=== PATIENT | female | born 1990 | race American Indian/Alaskan Native ===

== ENCOUNTER 2020-07-16 19:22 | Inpatient (IN) | payer OTHER ==
--- NOTE | 2020-07-16 20:38 | Event Note ---
ED Screening Note ED Screening Note: Lightheadedness that began 2 days ago She has upper abdominal pain No vomiting or diarrhea Normal bowel movement last night Tachycardia, otherwise vitals are stable This initial assessment/diagnostic orders/clinical plan/treatment(s) is/are subject to change based on patients health status, clinical progression and re- assessment by fellow clinical providers in the ED. Further treatment and workup at subsequent clinical providers discretion. Patient/guardian urged not to elope from the ED as their condition may be serious if not clinically assessed and managed. Initial orders include: Labs, urine, EKG
[2020-07-16 21:18] LABS: Hematocrit 41.2 % (30.3-42.9); Hemoglobin 13.2 gm/dl (10.1-14.3); Mean Corpuscular HGB Conc 32 % (30-34); Mean Corpuscular Volume 107 fl (79-97); Platelet Count 258 K/mm3 (140-440); Red Blood Count 3.84 M/mm3 (3.65-5.03)
[2020-07-16 21:29] LABS: Albumin 4.1 g/dL (3.9-5); Calcium 9.2 mg/dL (8.4-10.2)
[2020-07-16] MEDS ORDERED: DEXTROSE 50% IN WATER (25GM) 50 ML SYRINGE IV ONE ×2 (21:58→22:00)
[2020-07-16] MEDS ORDERED: SODIUM CHLORIDE 0.9% 1000 ML IV SOLN IV ONE (21:58)
[2020-07-16] MEDS ORDERED: PIPERACILLIN/TAZOBACTAM 3.375 3.375 GM/50 ML BAG IV ONE (22:00)
[2020-07-16 22:41] LABS: Total Cells Counted 100
[2020-07-16 22:42] LABS: Band Neutrophils # (Manual) 1.7 K/mm3
[2020-07-16 22:44] LABS: Anisocytosis 1+
[2020-07-16 22:45] LABS: Large Platelets Rare
[2020-07-16 22:46] LABS: Platelet Estimate Consistent w Auto
--- NOTE | 2020-07-16 23:05 | Cat Scan Report ---
CT ABDOMEN AND PELVIS WITHOUT CONTRAST HISTORY: abd pain, leukocytosis, elevated LFTs, sepsis. COMPARISON: None. TECHNIQUE: CT images of the abdomen and pelvis were obtained without administration of intravenous co ntrast. All CT scans at this location are performed using CT dose reduction for ALARA by means of au tomated exposure control. FINDINGS: Lungs/bones: Lung bases are clear. No acute osseous abnormality identified. Abdomen/pelvis: The gallbladder surgically absent. There is moderate hepatic steatosis and hepatomeg jerrod. The spleen, pancreas, adrenals, and kidneys appear unremarkable. There is a moderate size hiatal hernia. The stomach is fluid-filled and distended. Distended fluid-filled bowel extends to the third segment of the duodenum. No discrete mass identified on this limited noncontrast exam. The remainder the proximal GI tract appears unremarkable. Urinary bladder and reproductive organs are unremarkable with a small simple right ovarian cyst. No p elvic free fluid or acute colonic abnormality identified. There is mild circumferential wall thickeni ng in the majority of the colon which may be seen with colitis. The terminal ileum and appendix appea r normal. IMPRESSION: 1. Mild pancolitis with circumferential bowel wall thickening throughout the majority of the colon. 2. Distended fluid-filled appearance of the stomach and proximal duodenal C-loop without an obvious o bstructive mass on this limited noncontrast exam. Moderate-sized fluid-filled hiatal hernia also note d. 3. Hepatomegaly with hepatic steatosis. Signer Name: Saul Hughes MD Signed: 07/16/2020 11:01 PM Workstation Name: [id number]
[2020-07-17] MEDS ORDERED: metroNIDAZOLE/NS 500 MG/100 ML 500 MG/100 ML BAG IV ONE (00:20)
[2020-07-17] MEDS ORDERED: SODIUM CHLORIDE 0.9% 1000 ML 1,000 ML ONE (00:29)
[2020-07-17] MEDS ORDERED: SODIUM CHLORIDE 0.9% 1000 ML 1,000 ML IV ONE ×3 (00:31→05:11)
--- NOTE | 2020-07-17 00:41 | Emergency Department Report ---
ED Abdominal Pain HPI - General Chief Complaint: Abdominal Pain Stated Complaint: CHILLS, FATIGUE, AND BODY ACHES PUI?: No Time Seen by Provider: 07/16/20 20:35 Source: patient Mode of arrival: Wheelchair Limitations: No Limitations - History of Present Illness Initial Comments: CC: "I keep fainting." HPI: This is a 29 yo female with hx of tobacco dependence who presents with fainting episode, weakness and abdominal pain since Friday night 2 days ago. She has been too weak to work. She has epigastric central severe abdominal pain. Her stomach "stings" when with palpation. She has pain in her thighs. Patient denies diarrhea, vomiting or bloody stools. She does have nausea. NO hx of abdominal problems except for gallstones treated with cholecystectomy. Patient smokes cigarettes. She drinks alcohol every other day. MD Complaint: abdominal pain -: Gradual, days(s) (2) Location: diffuse, epigastric Radiation: none Severity: severe Severity scale (0 -10): 7 Quality: aching Consistency: constant Improves With: nothing Worsens With: movement, other (palpation) Context: other (no known sick contacts) Associated Symptoms: nausea, syncope - Related Data Allergies Allergy/AdvReac Type Severity Reaction Status Date / Time No Known Allergies Allergy Verified 07/16/20 22:03 ED Review of Systems ROS: Stated complaint: CHILLS, FATIGUE, AND BODY ACHES Other details as noted in HPI Comment: All other systems reviewed and negative Constitutional: chills, malaise. denies: fever Respiratory: denies: cough, shortness of breath Gastrointestinal: abdominal pain, nausea. denies: vomiting, diarrhea, constipation, hematemesis, melena, hematochezia ED Past Medical Hx - Past Medical History Previous Medical History?: No - Surgical History Past Surgical History?: Yes Additional Surgical History: Gallstones removed - Social History Smoking Status: Current Every Day Smoker Substance Use Type: Alcohol ED Physical Exam - General Limitations: No Limitations General appearance: alert, other (patient appears ill, Kussmaul respirations) - Head Head exam: Present: atraumatic, normocephalic - Eye Eye exam: Present: normal appearance - ENT ENT exam: Present: mucous membranes moist - Neck Neck exam: Present: normal inspection, full ROM - Respiratory Respiratory exam: Present: respiratory distress, other (Kussmaul respirations). Absent: wheezes, rales, rhonchi - Cardiovascular Cardiovascular Exam: Present: normal rhythm, tachycardia, normal heart sounds. Absent: systolic murmur, diastolic murmur, rubs, gallop - GI/Abdominal GI/Abdominal exam: Present: soft, tenderness, guarding, other (diffuse tenderness, voluntary guarding). Absent: distended, rebound - External exam: Present: normal external exam Speculum exam: Present: cervical discharge, other (copious malodorous mucopurulent discharge from cervix into vaginal vault) Bi-manual exam: Present: cervical motion tendernes (+ Chandelier sign), uterine tenderness - Extremities Exam Extremities exam: Present: normal inspection - Neurological Exam Neurological exam: Present: alert, oriented X3 - Psychiatric Psychiatric exam: Present: normal affect, normal mood - Skin Skin exam: Present: warm, dry, intact, pallor. Absent: rash ED Course Vital Signs 07/16/20 07/17/20 20:32 00:30 Temperature 98.5 F 97.8 F Pulse Rate 137 H 120 H Respiratory 18 24 Rate Blood Pressure 90/49 Blood Pressure 87/41 [Left] O2 Sat by Pulse 95 100 Oximetry - Central Line Placement Right Femoral Consent Obtained: verbal consent Time Out Performed: Yes Patient Placed on Monitor/Pulse Ox: Yes MD Prep: mask, gown, gloves, other (cap) Central Line Prep: sterile drapes applied Local Anesthesia Used: Lidocaine 2% Amount of Anesthesia Used (mls): 5 Ultrasound Used for Placement: Yes Central Line Lumen Inserted: triple Bloods Obtained for Lab: Yes Central Line Position: good blood return, all ports aspirated, flus, sutured in place with nyl, other (biopatch) Dressing Applied: Tegaderm, other (biopatch) Patient Tolerated Procedure: well, no complications Complications: none ED Medical Decision Making - Lab Data Result diagrams: 07/16/20 20:47 07/16/20 20:47 Abnormal Lab Results 07/16/20 07/16/20 07/16/20 20:47 20:47 20:47 WBC 33.9 H RBC 3.84 Hgb 13.2 Hct 41.2 MCV 107 H MCH 34 H MCHC 32 RDW 22.0 H Plt Count 258 Add Manual Diff Complete Total Counted 100 Seg Neutrophils % Hand Braille Transcriber Seg Neuts % (Manual) 89.0 H Band Neutrophils % 5.0 Lymphocytes % (Manual) 2.0 L Monocytes % (Manual) 4.0 Nucleated RBC % 1.0 H Seg Neutrophils # Man 30.2 H Band Neutrophils # 1.7 Lymphocytes # (Manual) 0.7 L Abs React Lymphs (Man) 0.0 Monocytes # (Manual) 1.4 H Eosinophils # (Manual) 0.0 Basophils # (Manual) 0.0 Metamyelocytes # 0.0 Myelocytes # 0.0 Promyelocytes # 0.0 Blast Cells # 0.0 Hypersegmented Neuts Not Reportable Hyposegmented Neuts Not Reportable Hypogranular Neuts Not Reportable Smudge Cells Not Reportable Toxic Granulation Not Reportable Toxic Vacuolation Not Reportable Dohle Bodies Not Reportable Pelger-Huet Anomaly Not Reportable Fede Rods Not Reportable Platelet Estimate Consistent w auto Clumped Platelets Not Reportable Plt Clumps, EDTA Not Reportable Large Platelets Rare Giant Platelets Not Reportable Platelet Satelliting Not Reportable Plt Morphology Comment Not Reportable RBC Morphology Not Reportable Dimorphic RBCs Not Reportable Polychromasia Not Reportable Hypochromasia Not Reportable Poikilocytosis Not Reportable Anisocytosis 1+ Microcytosis Not Reportable Macrocytosis Not Reportable Spherocytes Not Reportable Pappenheimer Bodies Not Reportable Sickle Cells Not Reportable Target Cells Not Reportable Tear Drop Cells Not Reportable Ovalocytes Not Reportable Helmet Cells Not Reportable Donaldson-[place]aver[place] Bodies Not Reportable Patterson Rings Not Reportable Hsashank Cells Not Reportable Bite Cells Not Reportable Crenated Cell Not Reportable Elliptocytes Not Reportable Acanthocytes (Spur) Not Reportable Rouleaux Not Reportable Hemoglobin C Crystals Not Reportable Schistocytes Not Reportable Malaria parasites Not Reportable Richard Bodies Not Reportable Hem Pathologist Commnt Sent to pathology Sodium 140 Potassium 5.1 H Chloride 98.7 Carbon Dioxide 9 L* Anion Gap 37 BUN 20 H Creatinine 1.9 H Estimated GFR 31 BUN/Creatinine Ratio 11 Glucose 30 L* POC Glucose Lactic Acid Calcium 9.2 Magnesium Total Bilirubin 5.40 H AST 32604 H ALT 1829 H Alkaline Phosphatase 141 H Total Creatine Kinase Troponin T Total Protein 6.9 Albumin 4.1 Albumin/Globulin Ratio 1.5 Lipase 9 L TSH HCG, Qual Negative 07/16/20 07/16/2007/16/20 20:47 20:47 20:47 WBC RBC Hgb Hct MCV MCH MCHC RDW Plt Count Add Manual Diff Total Counted Seg Neutrophils % Seg Neuts % (Manual) Band Neutrophils % Lymphocytes % (Manual) Monocytes % (Manual) Nucleated RBC % Seg Neutrophils # Man Band Neutrophils # Lymphocytes # (Manual) Abs React Lymphs (Man) Monocytes # (Manual) Eosinophils # (Manual) Basophils # (Manual) Metamyelocytes # Myelocytes # Promyelocytes # Blast Cells # Hypersegmented Neuts Hyposegmented Neuts Hypogranular Neuts Smudge Cells Toxic Granulation Toxic Vacuolation Dohle Bodies Pelger-Huet Anomaly Fede Rods Platelet Estimate Clumped Platelets Plt Clumps, EDTA Large Platelets Giant Platelets Platelet Satelliting Plt Morphology Comment RBC Morphology Dimorphic RBCs Polychromasia Hypochromasia Poikilocytosis Anisocytosis Microcytosis Macrocytosis Spherocytes Pappenheimer Bodies Sickle Cells Target Cells Tear Drop Cells Ovalocytes Helmet Cells Donaldson-Beaver[place] Bodies Patterson Rings Shashank Cells Bite Cells Crenated Cell Elliptocytes Acanthocytes (Spur) Rouleaux Hemoglobin C Crystals Schistocytes Malaria parasites Richard Bodies Hem Pathologist Commnt Sodium Potassium Chloride Carbon Dioxide Anion Gap BUN Creatinine Estimated GFR BUN/Creatinine Ratio Glucose POC Glucose Lactic Acid Calcium Magnesium 2.10 Total Bilirubin AST ALT Alkaline Phosphatase Total Creatine Kinase 230 H Troponin T < 0.010 Total Protein Albumin Albumin/Globulin Ratio Lipase TSH 0.354 HCG, Qual 07/16/20 07/16/20 22:43 23:06 WBC RBC Hgb Hct MCV MCH MCHC RDW Plt Count Add Manual Diff Total Counted Seg Neutrophils % Seg Neuts % (Manual) Band Neutrophils % Lymphocytes % (Manual) Monocytes % (Manual) Nucleated RBC % Seg Neutrophils # Man Band Neutrophils # Lymphocytes # (Manual) Abs React Lymphs (Man) Monocytes # (Manual) Eosinophils # (Manual) Basophils # (Manual) Metamyelocytes # Myelocytes # Promyelocytes # Blast Cells # Hypersegmented Neuts Hyposegmented Neuts Hypogranular Neuts Smudge Cells Toxic Granulation Toxic Vacuolation Dohle Bodies Pelger-Huet Anomaly Fede Rods Platelet Estimate Clumped Platelets Plt Clumps, EDTA Large Platelets Giant Platelets Platelet Satelliting Plt Morphology Comment RBC Morphology Dimorphic RBCs Polychromasia Hypochromasia Poikilocytosis Anisocytosis Microcytosis Macrocytosis Spherocytes Pappenheimer Bodies Sickle Cells Target Cells Tear Drop Cells Ovalocytes Helmet Cells Donaldson-[place] Bodies Patterson Rings Shashank Cells Bite Cells Crenated Cell Elliptocytes Acanthocytes (Spur) Rouleaux Hemoglobin C Crystals Schistocytes Malaria parasites Richard Bodies Hem Pathologist Commnt Sodium Potassium Chloride Carbon Dioxide Anion Gap BUN Creatinine Estimated GFR BUN/Creatinine Ratio Glucose POC Glucose 140 H Lactic Acid 14.90 H* Calcium Magnesium Total Bilirubin AST ALT Alkaline Phosphatase Total Creatine Kinase Troponin T Total Protein Albumin Albumin/Globulin Ratio Lipase TSH HCG, Qual - Radiology Data Radiology results: report reviewed CT ABDOMEN AND PELVIS WITHOUT CONTRAST HISTORY: abd pain, leukocytosis, elevated LFTs, sepsis. COMPARISON: None. TECHNIQUE: CT images of the abdomen and pelvis were obtained without administration of intravenous contrast. All CT scans at this location are performed using CT dose reduction for ALARA by means of automated exposure control. FINDINGS: Lungs/bones: Lung bases are clear. No acute osseous abnormality identified. Abdomen/pelvis: The gallbladder surgically absent. There is moderate hepatic steatosis and hepatomegaly. The spleen, pancreas, adrenals, and kidneys appear unremarkable. There is a moderate size hiatal hernia. The stomach is fluid-filled and distended. Distended fluid- filled bowel extends to the third segment of the duodenum. No discrete mass identified on this limited noncontrast exam. The remainder the proximal GI tract appears unremarkable. Urinary bladder and reproductive organs are unremarkable with a small simple right ovarian cyst. No pelvic free fluid or acute colonic abnormality identified. There is mild circumferential wall thickening in the majority of the colon which may be seen with colitis. The terminal ileum and appendix appear normal. IMPRESSION: 1. Mild pancolitis with circumferential bowel wall thickening throughout the majority of the colon. 2. Distended fluid-filled appearance of the stomach and proximal duodenal C-loop without an obvious obstructive mass on this limited noncontrast exam. Moderate-sized fluid-filled hiatal hernia also noted. 3. Hepatomegaly with hepatic steatosis CT ABDOMEN AND PELVIS WITHOUT CONTRAST HISTORY: abd pain, leukocytosis, elevated LFTs, sepsis. COMPARISON: None. TECHNIQUE: CT images of the abdomen and pelvis were obtained without administration of intravenous contrast. All CT scans at this location are performed using CT dose reduction for ALARA by means of automated exposure control. FINDINGS: Lungs/bones: Lung bases are clear. No acute osseous abnormality identified. Abdomen/pelvis: The gallbladder surgically absent. There is moderate hepatic steatosis and hepatomegaly. The spleen, pancreas, adrenals, and kidneys appear unremarkable. There is a moderate size hiatal hernia. The stomach is fluid-filled and distended. Distended fluid- filled bowel extends to the third segment of the duodenum. No discrete mass identified on this limited noncontrast exam. The remainder the proximal GI tract appears unremarkable. Urinary bladder and reproductive organs are unremarkable with a small simple right ovarian cyst. No pelvic free fluid or acute colonic abnormality identified. There is mild circumferential wall thickening in the majority of the colon which may be seen with colitis. The terminal ileum and appendix appear normal. IMPRESSION: 1. Mild pancolitis with circumferential bowel wall thickening throughout the majority of the colon. 2. Distended fluid-filled appearance of the stomach and proximal duodenal C-loop without an obvious obstructive mass on this limited noncontrast exam. Moderate-sized fluid-filled hiatal hernia also noted. 3. Hepatomegaly with hepatic steatosis AP portable chest: No acute findings - Medical Decision Making Septic shock profound persistent hypotension in spite IV fluid resuscitation IV antibiotics. Patient required pressor therapy administered through central line. Suspected source pelvic inflammatory disease versus intra-abdominal sepsis due to inflammatory bowel disease, pancolitis could also be explained by C. difficile colitis. Abnormal LFTS: shock liver vs Garth Albino Mendoza Syndrome Patient is admitted to the CCU in fair condition. Critical Care Time: Yes Critical care time in (mins) excluding proc time.: 40 Critical care attestation.: If time is entered above; I have spent that time in minutes in the direct care of this critically ill patient, excluding procedure time. 40 minutes of critical care time excluding procedures were used in the care of the patient. I came immediately to the bedside upon patient's arrival to treatment room. I asked charge nurse to place patient in left eye discovered patient had severe lactic acidosis. I was concerned for septic shock. I gave immediate orders for IV fluid resuscitation and IV antibiotics. Sepsis protocol initiated by provider in triage.. I discussed treatment plan with the nursing team members. I reviewed electronic record. Patient required multiple interventions and reassessments. ED Disposition Clinical Impression: Severe sepsis with septic shock, Sepsis with acute organ dysfunction, P ancolitis, Intra-abdominal infection, Pelvic inflammatory disease (PID) Disposition: OP ADMIT IP TO THIS HOSP Is pt being admited?: Yes Does the pt Need Aspirin: No Condition: Fair Instructions: Abdominal Pain (ED)
--- NOTE | 2020-07-17 01:21 | XRay Report ---
CHEST 1 VIEW INDICATION: sepsis. Body aches and chills since Friday COMPARISON: None FINDINGS: SUPPORT DEVICES: None. HEART: Within normal limits. LUNGS/PLEURA: No acute air space or interstitial disease. ADDITIONAL FINDINGS: None. IMPRESSION: 1. No acute findings. Signer Name: Saul Hughes MD Signed: 07/17/2020 1:17 AM Workstation Name: [id number]
[2020-07-17] MEDS ORDERED: LIDOCAINE (2%) 20 MG/1 ML VIAL 20 ML MDV INFILTRATI ONE (01:57)
[2020-07-17] MEDS ORDERED: NORepinephrine/NS 4 MG-250 ML 4 MG/250 ML BAG IV ONE (02:29)
[2020-07-17] MEDS ORDERED: DOXYCYCLINE HYCLATE 100 MG in SODIUM CHLORIDE 0.9% 250ML 250 ML IV ONE (02:36)
[2020-07-17] MEDS ORDERED: MORPHINE 4 MG/1 ML INJ IV ONE ×2 (02:37→03:28)
[2020-07-17] MEDS ORDERED: ONDANSETRON 4 MG/2 ML INJ IV ONE (02:37)
[2020-07-17] MEDS: NORepinephrine/NS 4 MG-250 ML 4 MG/250 ML BAG IV SCH ×6 (03:01→22:51)
[2020-07-17] MEDS ORDERED: ACETAMINOPHEN 325 MG TAB PO PRN (03:56)
[2020-07-17] MEDS ORDERED: MAGNESIUM HYDROXIDE (MOM) ORAL LIQD UDC PO PRN (03:56)
[2020-07-17] MEDS ORDERED: SODIUM CHLORIDE 0.9% 1000 ML 1,000 ML IV SCH (04:00)
[2020-07-17 04:14] LABS: Bacteria,Urine 1+ /HPF (Negative); Bilirubin,Urine NEG (Negative); Blood,Urine LG (Negative); Color,Urine Red (Yellow); Mucus,Urine FEW /HPF; Urobilinogen,Urine < 2.0 mg/dL (<2.0)
[2020-07-17 04:16] LABS: Protein,Urine >500 mg/dL (Negative)
--- NOTE | 2020-07-17 04:36 | History and Physical Report ---
History of Present Illness Date of examination: 07/17/20 Date of admission: 07/17/20 02:38 Chief complaint: Abdominal pain History of present illness: The 9-year-old -[place] female who presents to the emergency room today complaining of abdominal pain, fainting episode and generalized weakness which has been ongoing for the past 2 days. Patient indicates that abdominal pain is generalized. No no relieving or exacerbating factor. She has had episodes of nausea and vomiting but no diarrhea, no hematuria or dysuria. Patient also indicates that she has had some vaginal discharge today, denies any vaginal bleeding. She denies any sick contacts and no recent travel. She denies any chest pain or shortness of breath, she has had some mild fever and c hills at home. Upon arrival in the emergency room today she was hypotensive. Work-up in the emergency room today significant leukocytosis of 33, lactic acidosis, abnormally elevated liver enzymes. CT scan of the abdomen reveals:. 1.Mild pancolitis with circumferential bowel wall thickening throughout the majority of the colon. 2. Distended fluid-filled appearance of the stomach and proximal duodenal C-loop without an obvious obstructive mass on this limited noncontrast exam. Moderate-sized fluid-filled hiatal hernia also noted. 3. Hepatomegaly with hepatic steatosis. Chest x-ray was unremarkable. Urinalysis also shows a UTI However pelvic exam but done by the ER physician was concerning for possible pelvic inflammatory disease. Patient has been started on IV fluid, empiric IV antibiotics, pressors in view of her sepsis with septic shock. She will be managed in the intensive care unit. Past History Past Surgical History: cholecystectomy Social history: smoking (Current daily smoker), alcohol abuse Family history: cancer (Brain cancer in grandfather, lung cancer in aunt) Medications and Allergies Allergies Allergy/AdvReac Type Severity Reaction Status Date / Time No Known Allergies Allergy Verified 07/16/20 22:03 Home Medications Medication Instructions Recorded Confirmed Last Taken Type No Known Home Medications [No 07/17/20 07/17/20 Unknown History Reported Home Medications] Active Meds: Active Medications Acetaminophen (Acetaminophen 325 Mg Tab) 650 mg PO Q4H PRN PRN Reason: Pain MILD(1-3)/Fever >100.5/SANCHEZ Norepinephrine (Levophed Drip 4 Mg/Ns 250 Ml) 4 mg in 250 mls @ 7.5 mls/hr IV TITR ESTELA; Protocol Last Titration: 07/17/20 04:31 Dose: 12 mcg/min, 45 mls/hr Documented by: Sodium Chloride (Nacl 0.9% 1000 Ml) 1,000 mls @ 125 mls/hr IV DIRECT ESTELA Magnesium Hydroxide (Magnesium Hydroxide (Mom) Oral Liqd Udc) 30 ml PO Q4H PRN PRN Reason: Constipation Morphine Sulfate (Morphine 2 Mg/1 Ml Inj) 2 mg IV Q4H PRN PRN Reason: Pain, Moderate (4-6) Ondansetron HCl (Ondansetron 4 Mg/2 Ml Inj) 4 mg IV Q8H PRN PRN Reason: Nausea And Vomiting Sodium Chloride (Sodium Chloride 0.9% 10 Ml Flush Syringe) 10 ml IV BID ESTELA Sodium Chloride (Sodium Chloride 0.9% 10 Ml Flush Syringe) 10 ml IV PRN PRN PRN Reason: LINE FLUSH Review of Systems Constitutional: no fever, no chills Ears, nose, mouth and throat: no nasal congestion, no sore throat Cardiovascular: no chest pain, no palpitations Respiratory: no cough, no shortness of breath Gastrointestinal: abdominal pain, nausea, vomiting, no diarrhea, no coffee ground emesis, no BRBPR, no melena Genitourinary Female: pelvic pain, no flank pain, no menorrhagia, no dysuria, no urinary frequency, no urgency, no hematuria Musculoskeletal: low back pain, no neck pain Integumentary: no rash, no pruritis Neurological: no headaches, no confusion Psychiatric: no anxiety, no depression Exam - Constitutional Vitals: Temp Pulse Resp BP Pulse Ox 97.8 F 126 H 19 70/17 100 07/17/20 00:30 07/17/20 04:01 07/17/20 04:01 07/17/20 04:01 07/17/20 04:01 General appearance: Present: mild distress (Secondary to pain), well-nourished, other (Dry oral mucosa) - EENT Eyes: Present: PERRL, EOM intact. Absent: scleral icterus ENT: hearing intact, clear oral mucosa, dentition normal - Neck Neck: Present: supple, normal ROM - Respiratory Respiratory effort: normal Respiratory: bilateral: CTA - Cardiovascular Rhythm: regular Heart Sounds: Present: S1 & S2. Absent: gallop, systolic murmur, diastolic murmur, rub - Extremities Extremities: no ischemia, pulses intact, pulses symmetrical, No edema, normal temperature, normal color, Full ROM Peripheral Pulses: within normal limits - Abdominal General gastrointestinal: Present: soft, tender (Diffuse tenderness in abdomen, more pronounced in the lower quadrants bilaterally, minimal guarding, no rebound tenderness.), non-distended, normal bowel sounds. Absent: mass - Integumentary Integumentary: Present: clear, warm, dry. Absent: rash - Musculoskeletal Musculoskeletal: strength equal bilaterally - Psychiatric Psychiatric: appropriate mood/affect, intact judgment & insight, memory intact, cooperative - Neurologic Neurologic: CNII-XII intact, no focal deficits, moves all extremities HEART Score - HEART Score Troponin: Troponin T < 0.010 ng/mL (0.00-0.029) 07/16/20 20:47 Results - Labs CBC & Chem 7: 07/16/20 20:47 07/16/20 20:47 Labs: Abnormal lab results 07/16/20 07/16/20 07/16/20 Range/Units 03:54 20:47 20:47 WBC 33.9 H (4.5-11.0) K/mm3 MCV 107 H (79-97) fl MCH 34 H (28-32) pg RDW 22.0 H (13.2-15.2) % Seg Neuts % (Manual) 89.0 H (40.0-70.0) % Lymphocytes % (Manual) 2.0 L (13.4-35.0) % Nucleated RBC % 1.0 H (0.0-0.9) % Seg Neutrophils # Man 30.2 H (1.8-7.7) K/mm3 Lymphocytes # (Manual) 0.7 L (1.2-5.4) K/mm3 Monocytes # (Manual) 1.4 H (0.0-0.8) K/mm3 VBG pH (7.320-7.420) Potassium 5.1 H (3.6-5.0) mmol/L Carbon Dioxide 9 L* (22-30) mmol/L BUN 20 H (7-17) mg/dL Creatinine 1.9 H (0.6-1.2) mg/dL Glucose 30 L* (65-100) mg/dL POC Glucose (70-105) mg/dL Lactic Acid (0.7-2.0) mmol/L Total Bilirubin 5.40 H (0.1-1.2) mg/dL AST 25030 H (5-40) units/L ALT 1829 H (7-56) units/L Alkaline Phosphatase 141 H (35-129) units/L Total Creatine Kinase (30-135) units/L Lipase 9 L (13-60) units/L Urine WBC (Auto) 57.0 H (0.0-6.0) /HPF U Epithel Cells (Auto) 23.0 H (0-13.0) /HPF 07/16/20 07/16/20 07/16/20 Range/Units 20:47 22:43 23:06 WBC (4.5-11.0) K/mm3 MCV (79-97) fl MCH (28-32) pg RDW (13.2-15.2) % Seg Neuts % (Manual) (40.0-70.0) % Lymphocytes % (Manual) (13.4-35.0) % Nucleated RBC % (0.0-0.9) % Seg Neutrophils # Man (1.8-7.7) K/mm3 Lymphocytes # (Manual) (1.2-5.4) K/mm3 Monocytes # (Manual) (0.0-0.8) K/mm3 VBG pH (7.320-7.420) Potassium (3.6-5.0) mmol/L Carbon Dioxide (22-30) mmol/L BUN (7-17) mg/dL Creatinine (0.6-1.2) mg/dL Glucose (65-100) mg/dL POC Glucose 140 H (70-105) mg/dL Lactic Acid 14.90 H* (0.7-2.0) mmol/L Total Bilirubin (0.1-1.2) mg/dL AST (5-40) units/L ALT (7-56) units/L Alkaline Phosphatase (35-129) units/L Total Creatine Kinase 230 H (30-135) units/L Lipase (13-60) units/L Urine WBC (Auto) (0.0-6.0) /HPF U Epithel Cells (Auto) (0-13.0) /HPF 07/17/20 07/17/20 Range/Units 01:46 01:46 WBC (4.5-11.0) K/mm3 MCV (79-97) fl MCH (28-32) pg RDW (13.2-15.2) % Seg Neuts % (Manual) (40.0-70.0) % Lymphocytes % (Manual) (13.4-35.0) % Nucleated RBC % (0.0-0.9) % Seg Neutrophils # Man (1.8-7.7) K/mm3 Lymphocytes # (Manual) (1.2-5.4) K/mm3 Monocytes # (Manual) (0.0-0.8) K/mm3 VBG pH 7.085 L* (7.320-7.420) Potassium (3.6-5.0) mmol/L Carbon Dioxide (22-30) mmol/L BUN (7-17) mg/dL Creatinine (0.6-1.2) mg/dL Glucose (65-100) mg/dL POC Glucose (70-105) mg/dL Lactic Acid 13.20 H* (0.7-2.0) mmol/L Total Bilirubin (0.1-1.2) mg/dL AST (5-40) units/L ALT (7-56) units/L Alkaline Phosphatase (35-129) units/L Total Creatine Kinase (30-135) units/L Lipase (13-60) units/L Urine WBC (Auto) (0.0-6.0) /HPF U Epithel Cells (Auto) (0-13.0) /HPF Assessment and Plan - Patient Problems (1) Severe sepsis with septic shock Current Visit: Yes Status: Acute Plan to address problem: Patient admitted and placed on IV fluid and empiric IV antibiotics. She is also on Levophed drip. We will place consult to infectious disease for evaluation and further guidance on antibiotic regimen. Consult will also be placed to the caddie supervisor. (2) Pancolitis Current Visit: Yes Status: Acute Plan to address problem: As shown on the CT scan of the abdomen and pelvis. Will consult gastroenterology for further evaluation. (3) Pelvic inflammatory disease (PID) Current Visit: Yes Status: Acute Plan to address problem: Pelvic exam normal by the ER physician was suggestive of PID. We will place consult to [facility] for further evaluation and recommendation (4) UTI (urinary tract infection) Current Visit: Yes Status: Acute Plan to address problem: Continue on empiric IV antibiotics. We will await urine culture result. (5) Sepsis with acute liver failure and septic shock Current Visit: Yes Status: Acute Plan to address problem: Possibly secondary to the septic shock. Will monitor liver enzymes. We will place consult to gastroenterology for further evaluation and recommendation. (6) Metabolic acidosis Current Visit: Yes Status: Acute Plan to address problem: We will continue on IV fluid and also placed on bicarb drip. Will monitor chemistry closely. (7) DVT prophylaxis Current Visit: Yes Status: Acute Plan to address problem: Patient placed on sequential compression device. We will hold off on anticoagulation in view of possible surgical intervention (8) Full code status Current Visit: Yes Status: Acute Plan to address problem: Patient is a full code.
[2020-07-17] MEDS ORDERED: SODIUM BICARB 8.4% 50 MEQ/50 ML SYRINGE IV ONE (04:55)
[2020-07-17] MEDS: SODIUM BICARBONATE 50 MEQ in SODIUM CHLORIDE 0.9% 1000 ML 1,000 ML IV SCH (05:18)
[2020-07-17] MEDS ORDERED: AMPICILLIN/SULBACTA 3GM/100ML 3 GM/100 ML BAG IV SCH (06:00)
[2020-07-17] MEDS ORDERED: DEXTROSE 50% IN WATER (25GM) 50 ML SYRINGE IV ONE (06:07)
--- NOTE | 2020-07-17 09:55 | Gastroenterology Consultation ---
History of Present Illness - Reason for Consult Consult date: 07/17/20 Abnormal LFT Requesting physician: LUISITO DE LOS SANTOS - History of Present Illness The patient is a 29 yo female admitted with abdominal pain and hypotension. She says she has felt this way for at least the last 3-5 days. There have been 2 episodes of non-bloody emesis, but no diarrhea. Her main c/o are generalized abdominal pain and weakness. The pain is worse with palpation, and she was felt to have possible PID (on abx currently) by the ER staff. Of note, her LFTs were markedly elevated, but no tylenol level has been sent yet. She does admit to taking at least 3 Tylenol every 2-4 hours for the last several days for the pain, but denies drugs. She does admit to EtOH at least every 2 days, with a "double shot" of liquor. She denies any suicide attempt. She has had her GB out, and a hx of blood transfusion several years ago ( of her son). She is not on any chronic medications, and there is no family hx of liver disease/cirrhosis. Of note, despite her acute liver injury, she is lucid without confusion and no asterixis on exam. Past History Past Medical History: No medical history Past Surgical History: cholecystectomy Social history: smoking (Current daily smoker), alcohol abuse. denies: prescription drug abuse, IV drug use Family history: cancer (Brain cancer in grandfather, lung cancer in aunt) Medications and Allergies Allergies Allergy/AdvReac Type Severity Reaction Status Date / Time No Known Allergies Allergy Verified 07/16/20 22:03 Home Medications Medication Instructions Recorded Confirmed Last Taken Type No Known Home Medications [No 07/17/20 07/17/20 Unknown History Reported Home Medications] Active Meds: Active Medications Doxycycline Hyclate (Doxycycline 100 Mg Cap) 100 mg PO BID ESTELA; Protocol Norepinephrine (Levophed Drip 4 Mg/Ns 250 Ml) 4 mg in 250 mls @ 7.5 mls/hr IV TITR ESTELA; Protocol Last Titration: 07/17/20 06:45 Dose: 28 mcg/min, 105 mls/hr Documented by: Sodium Chloride (Nacl 0.9% 1000 Ml) 1,000 mls @ 125 mls/hr IV DIRECT ESTELA Last Admin: 07/17/20 05:08 Dose: 125 mls/hr Documented by: Sodium Bicarbonate 50 meq/ (Sodium Chloride) 1,050 mls @ 100 mls/hr IV DIRECT ESTELA Last Admin: 07/17/20 05:18 Dose: 100 mls/hr Documented by: Ampicillin Sodium/Sulbactam Sodium (Unasyn/Ns 3 Gm/100 Ml) 3 gm in 100 mls @ 200 mls/hr IV Q6H ESTELA; Protocol Last Admin: 07/17/20 05:59 Dose: 200 mls/hr Documented by: Magnesium Hydroxide (Magnesium Hydroxide (Mom) Oral Liqd Udc) 30 ml PO Q4H PRN PRN Reason: Constipation Morphine Sulfate (Morphine 2 Mg/1 Ml Inj) 2 mg IV Q4H PRN PRN Reason: Pain, Moderate (4-6) Ondansetron HCl (Ondansetron 4 Mg/2 Ml Inj) 4 mg IV Q8H PRN PRN Reason: Nausea And Vomiting Sodium Chloride (Sodium Chloride 0.9% 10 Ml Flush Syringe) 10 ml IV BID ESTELA Sodium Chloride (Sodium Chloride 0.9% 10 Ml Flush Syringe) 10 ml IV PRN PRN PRN Reason: LINE FLUSH I HAVE REVIEWED AND RECONCILED MEDICATIONS Review of Systems - Review of Systems All systems: negative (as noted in the HPI) Exam - Constitutional Vital Signs: Temp Pulse Resp BP Pulse Ox 97.8 F 125 H 25 H 79/29 98 07/17/20 00:30 07/17/20 05:15 07/17/20 05:15 07/17/20 05:15 07/17/20 05:15 General appearance: mild distress - EENT Eyes: PERRL, EOM intact ENT: hearing intact, clear oral mucosa, no thrush - Neck Neck: supple, normal ROM - Respiratory Respiratory effort: normal Respiratory: bilateral: CTA - Cardiovascular Heart Rate: 135 Rhythm: regular Heart Sounds: Present: S1 & S2 Extremities: no ischemia, No edema - Gastrointestinal General gastrointestinal: Present: soft, tender (Diffuse but mild tenderness without guard), non-distended - Integumentary Integumentary: Present: clear, warm, dry - Neurologic Neurological: alert and oriented x3, other (No evidence of asterixis or somnolence) - Labs CBC & Chem 7: 07/16/20 20:47 07/16/20 20:47 Lab Results: Laboratory Results - last 24 hr 07/16/20 07/16/20 07/16/20 03:54 20:47 20:47 WBC 33.9 H RBC 3.84 Hgb 13.2 Hct 41.2 MCV 107 H MCH 34 H MCHC 32 RDW 22.0 H Plt Count 258 Add Manual Diff Complete Total Counted 100 Seg Neutrophils % [employer] Seg Neuts % (Manual) 89.0 H Band Neutrophils % 5.0 Lymphocytes % (Manual) 2.0 L Monocytes % (Manual) 4.0 Nucleated RBC % 1.0 H Seg Neutrophils # Man 30.2 H Band Neutrophils # 1.7 Lymphocytes # (Manual) 0.7 L Abs React Lymphs (Man) 0.0 Monocytes # (Manual) 1.4 H Eosinophils # (Manual) 0.0 Basophils # (Manual) 0.0 Metamyelocytes # 0.0 Myelocytes # 0.0 Promyelocytes # 0.0 Blast Cells # 0.0 Hypersegmented Neuts Not Reportable Hyposegmented Neuts Not Reportable Hypogranular Neuts Not Reportable Smudge Cells Not Reportable Toxic Granulation Not Reportable Toxic Vacuolation Not Reportable Dohle Bodies Not Reportable Pelger-Huet Anomaly Not Reportable Fede Rods Not Reportable Platelet Estimate Consistent w auto Clumped Platelets Not Reportable Plt Clumps, EDTA Not Reportable Large Platelets Rare Giant Platelets Not Reportable Platelet Satelliting Not Reportable Plt Morphology Comment Not Reportable RBC Morphology Not Reportable Dimorphic RBCs Not Reportable Polychromasia Not Reportable Hypochromasia Not Reportable Poikilocytosis Not Reportable Anisocytosis 1+ Microcytosis Not Reportable Macrocytosis Not Reportable Spherocytes Not Reportable Pappenheimer Bodies Not Reportable Sickle Cells Not Reportable Target Cells Not Reportable Tear Drop Cells Not Reportable Ovalocytes Not Reportable Helmet Cells Not Reportable [place] Bodies Not Reportable [place] Rings Not Reportable Shashank Cells Not Reportable Bite Cells Not Reportable Crenated Cell Not Reportable Elliptocytes Not Reportable Acanthocytes (Spur) Not Reportable Rouleaux Not Reportable Hemoglobin C Crystals Not Reportable Schistocytes Not Reportable Malaria parasites Not Reportable Richard Bodies Not Reportable Hem Pathologist Commnt Sent to pathology [facility] pH Sodium 140 Potassium 5.1 H Chloride 98.7 Carbon Dioxide 9 L* Anion Gap 37 BUN 20 H Creatinine 1.9 H Estimated GFR 31 BUN/Creatinine Ratio 11 Glucose 30 L* POC Glucose Lactic Acid Calcium 9.2 Magnesium Total Bilirubin 5.40 H AST 13951 H ALT 1829 H Alkaline Phosphatase 141 H Total Creatine Kinase Troponin T Total Protein 6.9 Albumin 4.1 Albumin/Globulin Ratio 1.5 Lipase 9 L TSH HCG, Qual Urine Color Red Urine Turbidity Turbid Urine pH 5.0 Ur Specific [place] 1.013 Urine Protein >500 Urine Glucose (UA) Neg Urine Ketones Tr Urine Blood Lg Urine Nitrite Neg Urine Bilirubin Neg Urine Urobilinogen < 2.0 Ur Leukocyte Esterase Sm Urine WBC (Auto) 57.0 H Urine RBC (Auto) 35.0 U Epithel Cells (Auto) 23.0 H Urine Bacteria (Auto) 1+ Urine WBC Clumps 3+ Urine Mucus Few 07/16/20 07/16/20 07/16/20 20:47 20:47 20:47 WBC RBC Hgb Hct MCV MCH MCHC RDW Plt Count Add Manual Diff Total Counted Seg Neutrophils % Seg Neuts % (Manual) Band Neutrophils % Lymphocytes % (Manual) Monocytes % (Manual) Nucleated RBC % Seg Neutrophils # Man Band Neutrophils # Lymphocytes # (Manual) Abs React Lymphs (Man) Monocytes # (Manual) Eosinophils # (Manual) Basophils # (Manual) Metamyelocytes # Myelocytes # Promyelocytes # Blast Cells # Hypersegmented Neuts Hyposegmented Neuts Hypogranular Neuts Smudge Cells Toxic Granulation Toxic Vacuolation Dohle Bodies Pelger-Huet Anomaly Fede Rods Platelet Estimate Clumped Platelets Plt Clumps, EDTA Large Platelets Giant Platelets Platelet Satelliting Plt Morphology Comment RBC Morphology Dimorphic RBCs Polychromasia Hypochromasia Poikilocytosis Anisocytosis Microcytosis Macrocytosis Spherocytes Pappenheimer Bodies Sickle Cells Target Cells Tear Drop Cells Ovalocytes Helmet Cells [place] Bodies [place] Rings [place] Cells Bite Cells Crenated Cell Elliptocytes Acanthocytes (Spur) Rouleaux Hemoglobin C Crystals Schistocytes Malaria parasites Richard Bodies Hem Pathologist Commnt VBG pH Sodium Potassium Chloride Carbon Dioxide Anion Gap BUN Creatinine Estimated GFR BUN/Creatinine Ratio Glucose POC Glucose Lactic Acid Calcium Magnesium 2.10 Total Bilirubin AST ALT Alkaline Phosphatase Total Creatine Kinase 230 H Troponin T < 0.010 Total Protein Albumin Albumin/Globulin Ratio Lipase TSH HCG, Qual Negative Urine Color Urine Turbidity Urine pH Ur Specific [place] Urine Protein Urine Glucose (UA) Urine Ketones Urine Blood Urine Nitrite Urine Bilirubin Urine Urobilinogen Ur Leukocyte Esterase Urine WBC (Auto) Urine RBC (Auto) U Epithel Cells (Auto) Urine Bacteria (Auto) Urine WBC Clumps Urine Mucus 07/16/20 07/16/20 07/16/20 20:47 22:43 23:06 WBC RBC Hgb Hct MCV MCH MCHC RDW Plt Count Add Manual Diff Total Counted Seg Neutrophils % Seg Neuts % (Manual) Band Neutrophils % Lymphocytes % (Manual) Monocytes % (Manual) Nucleated RBC % Seg Neutrophils # Man Band Neutrophils # Lymphocytes # (Manual) Abs React Lymphs (Man) Monocytes # (Manual) Eosinophils # (Manual) Basophils # (Manual) Metamyelocytes # Myelocytes # Promyelocytes # Blast Cells # Hypersegmented Neuts Hyposegmented Neuts Hypogranular Neuts Smudge Cells Toxic Granulation Toxic Vacuolation Dohle Bodies Pelger-Huet Anomaly Fede Rods Platelet Estimate Clumped Platelets Plt Clumps, EDTA Large Platelets Giant Platelets Platelet Satelliting Plt Morphology Comment RBC Morphology Dimorphic RBCs Polychromasia Hypochromasia Poikilocytosis Anisocytosis Microcytosis Macrocytosis Spherocytes Pappenheimer Bodies Sickle Cells Target Cells Tear Drop Cells Ovalocytes Helmet Cells [place] Bodies [place] Rings Shashank Cells Bite Cells Crenated Cell Elliptocytes Acanthocytes (Spur) Rouleaux Hemoglobin C Crystals Schistocytes Malaria parasites Richard Bodies Hem Pathologist Commnt V[facility] pH Sodium Potassium Chloride Carbon Dioxide Anion Gap BUN Creatinine Estimated GFR BUN/Creatinine Ratio Glucose POC Glucose 140 H Lactic Acid 14.90 H* Calcium Magnesium Total Bilirubin AST ALT Alkaline Phosphatase Total Creatine Kinase Troponin T Total Protein Albumin Albumin/Globulin Ratio Lipase TSH 0.354 HCG, Qual Urine Color Urine Turbidity Urine pH Ur Specific [place] Urine Protein Urine Glucose (UA) Urine Ketones Urine Blood Urine Nitrite Urine Bilirubin Urine Urobilinogen Ur Leukocyte Esterase Urine WBC (Auto) Urine RBC (Auto) U Epithel Cells (Auto) Urine Bacteria (Auto) Urine WBC Clumps Urine Mucus 07/17/20 07/17/20 07/17/20 01:46 01:46 01:46 WBC RBC Hgb Hct MCV MCH MCHC RDW Plt Count Add Manual Diff Total Counted Seg Neutrophils % Seg Neuts % (Manual) Band Neutrophils % Lymphocytes % (Manual) Monocytes % (Manual) Nucleated RBC % Seg Neutrophils # Man Band Neutrophils # Lymphocytes # (Manual) Abs React Lymphs (Man) Monocytes # (Manual) Eosinophils # (Manual) Basophils # (Manual) Metamyelocytes # Myelocytes # Promyelocytes # Blast Cells # Hypersegmented Neuts Hyposegmented Neuts Hypogranular Neuts Smudge Cells Toxic Granulation Toxic Vacuolation Dohle Bodies Pelger-Huet Anomaly Fede Rods Platelet Estimate Clumped Platelets Plt Clumps, EDTA Large Platelets Giant Platelets Platelet Satelliting Plt Morphology Comment RBC Morphology Dimorphic RBCs Polychromasia Hypochromasia Poikilocytosis Anisocytosis Microcytosis Macrocytosis Spherocytes Pappenheimer Bodies Sickle Cells Target Cells Tear Drop Cells Ovalocytes Helmet Cells [place] Bodies [place] Rings [place] Cells Bite Cells Crenated Cell Elliptocytes Acanthocytes (Spur) Rouleaux Hemoglobin C Crystals Schistocytes Malaria parasites Richard Bodies Hem Pathologist Commnt VBG pH 7.085 L* Sodium Potassium Chloride Carbon Dioxide Anion Gap BUN Creatinine Estimated GFR BUN/Creatinine Ratio Glucose POC Glucose Lactic Acid 13.20 H* Calcium Magnesium Total Bilirubin AST ALT Alkaline Phosphatase Total Creatine Kinase Troponin T Total Protein Albumin Albumin/Globulin Ratio Lipase 14 TSH HCG, Qual Urine Color Urine Turbidity Urine pH Ur Specific [place] Urine Protein Urine Glucose (UA) Urine Ketones Urine Blood Urine Nitrite Urine Bilirubin Urine Urobilinogen Ur Leukocyte Esterase Urine WBC (Auto) Urine RBC (Auto) U Epithel Cells (Auto) Urine Bacteria (Auto) Urine WBC Clumps Urine Mucus 07/17/20 07/17/20 07/17/20 04:55 06:05 07:33 WBC RBC Hgb Hct MCV MCH MCHC RDW Plt Count Add Manual Diff Total Counted Seg Neutrophils % Seg Neuts % (Manual) Band Neutrophils % Lymphocytes % (Manual) Monocytes % (Manual) Nucleated RBC % Seg Neutrophils # Man Band Neutrophils # Lymphocytes # (Manual) Abs React Lymphs (Man) Monocytes # (Manual) Eosinophils # (Manual) Basophils # (Manual) Metamyelocytes # Myelocytes # Promyelocytes # Blast Cells # Hypersegmented Neuts Hyposegmented Neuts Hypogranular Neuts Smudge Cells Toxic Granulation Toxic Vacuolation Dohle Bodies Pelger-Huet Anomaly Fede Rods Platelet Estimate Clumped Platelets Plt Clumps, EDTA Large Platelets Giant Platelets Platelet Satelliting Plt Morphology Comment RBC Morphology Dimorphic RBCs Polychromasia Hypochromasia Poikilocytosis Anisocytosis Microcytosis Macrocytosis Spherocytes Pappenheimer Bodies Sickle Cells Target Cells Tear Drop Cells Ovalocytes Helmet Cells [place] Bodies [place] Rings Shashank Cells Bite Cells Crenated Cell Elliptocytes Acanthocytes (Spur) Rouleaux Hemoglobin C Crystals Schistocytes Malaria parasites Richard Bodies Hem Pathologist Commnt VBG pH Sodium Potassium Chloride Carbon Dioxide Anion Gap BUN Creatinine Estimated GFR BUN/Creatinine Ratio Glucose POC Glucose 59 L 125 H Lactic Acid 12.00 H* Calcium Magnesium Total Bilirubin AST ALT Alkaline Phosphatase Total Creatine Kinase Troponin T Total Protein Albumin Albumin/Globulin Ratio Lipase TSH HCG, Qual Urine Color Urine Turbidity Urine pH Ur Specific [place] Urine Protein Urine Glucose (UA) Urine Ketones Urine Blood Urine Nitrite Urine Bilirubin Urine Urobilinogen Ur Leukocyte Esterase Urine WBC (Auto) Urine RBC (Auto) U Epithel Cells (Auto) Urine Bacteria (Auto) Urine WBC Clumps Urine Mucus 07/17/20 07:48 WBC RBC Hgb Hct MCV MCH MCHC RDW Plt Count Add Manual Diff Total Counted Seg Neutrophils % Seg Neuts % (Manual) Band Neutrophils % Lymphocytes % (Manual) Monocytes % (Manual) Nucleated RBC % Seg Neutrophils # Man Band Neutrophils # Lymphocytes # (Manual) Abs React Lymphs (Man) Monocytes # (Manual) Eosinophils # (Manual) Basophils # (Manual) Metamyelocytes # Myelocytes # Promyelocytes # Blast Cells # Hypersegmented Neuts Hyposegmented Neuts Hypogranular Neuts Smudge Cells Toxic Granulation Toxic Vacuolation Dohle Bodies Pelger-Huet Anomaly Fede Rods Platelet Estimate Clumped Platelets Plt Clumps, EDTA Large Platelets Giant Platelets Platelet Satelliting Plt Morphology Comment RBC Morphology Dimorphic RBCs Polychromasia Hypochromasia Poikilocytosis Anisocytosis Microcytosis Macrocytosis Spherocytes Pappenheimer Bodies Sickle Cells Target Cells Tear Drop Cells Ovalocytes Helmet Cells [place] Bodies [place] Rings Shashank Cells Bite Cells Crenated Cell Elliptocytes Acanthocytes (Spur) Rouleaux Hemoglobin C Crystals Schistocytes Malaria parasites Richard Bodies Hem Pathologist Commnt VBG pH Sodium Potassium Chloride Carbon Dioxide Anion Gap BUN Creatinine Estimated GFR BUN/Creatinine Ratio Glucose POC Glucose Lactic Acid 12.00 H* Calcium Magnesium Total Bilirubin AST ALT Alkaline Phosphatase Total Creatine Kinase Troponin T Total Protein Albumin Albumin/Globulin Ratio Lipase TSH HCG, Qual Urine Color Urine Turbidity Urine pH Ur Specific [place] Urine Protein Urine Glucose (UA) Urine Ketones Urine Blood Urine Nitrite Urine Bilirubin Urine Urobilinogen Ur Leukocyte Esterase Urine WBC (Auto) Urine RBC (Auto) U Epithel Cells (Auto) Urine Bacteria (Auto) Urine WBC Clumps Urine Mucus Assessment and Plan - Patient Problems (1) Acute liver failure Current Visit: Yes Status: Acute Plan to address problem: - May be related to septic shock (of unclear cause) but may be EtOH, tylenol, acute viral, autoimmune, rarely vascular cause. - Will start empiric Acetadote while waiting on tylenol level. - Will check Hep A/B/C and HSV IgG; will defer to ID about starting empiric acyclovir given acute kidney injury. - Thiamine/folate for EtOH overuse. - D/C PRN tylenol. - Aggressive hydration and pressor support started. - Keep NPO for now, as stomach full of fluid on CT, and if mental status worsens, increased risk of aspiration. - Will convert her current abx to IV. - Will check UDS, FTA, INR, and other labs. (2) Sepsis with acute organ dysfunction Current Visit: Yes Status: Acute Plan to address problem: - Supportive care as per primary team already started.
[2020-07-17] MEDS ORDERED: DOXYCYCLINE 100 MG CAP PO SCH (10:00)
--- NOTE | 2020-07-17 10:25 | Event Note ---
Date: 07/17/20 Patient's chart was reviewed. 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 Dr. Lowery aware and agrees.
[2020-07-17] MEDS ORDERED: WATER IV ONE ×3 (10:30→15:30)
[2020-07-17] MEDS ORDERED: DEXTROSE 5% IV ONE ×3 (10:30→15:30)
[2020-07-17] MEDS ORDERED: ACETADOTE IV ONE ×3 (10:30→15:30)
--- NOTE | 2020-07-17 10:43 | Consultation ---
History of Present Illness - Reason for Consult Consult date: 07/17/20 Septic shock Requesting physician: KACY PAIGE - History of Present Illness The patient is a 29-year-old female with no significant past medical history came into the emergency room last night with complaints of abdominal pain, chills along with nausea and vomiting. She had not been feeling well for at least 2 to 3 days prior to admission. Upon evaluation in the emergency room, her labs revealed a leukemoid reaction, acidosis with severe lactate elevation, acute liver failure with AST 10K, acute kidney injury with a creatinine of 1.9. She was found to be in septic shock requiring pressors. Infectious diseases was consulted for additional evaluation. Chest x-ray did not reveal any pneumonia, CT scan of the abdomen pelvis showed mild colitis along with distended fluid- filled appearance of the stomach and proximal duodenum, hepatomegaly with hepatic steatosis. Pelvic exam done by ED physician was also apparently concerning for pelvic inflammatory disease, she was started on empiric antibiotics. Upon further questioning, patient reports taking Tylenol and Advil 2 to 3 pills every 3 hours for probably the last 2 months due to a toothache. She does drink alcohol, denies street drugs. Reports being tested for hepatitis in August of this year and was negative. Denies any previous HIV test. Denies previous STDs. She has been sexually active, a week ago. Review of Systems: per HPI Past History Past Medical History: No medical history Past Surgical History: cholecystectomy Social history: smoking (Current daily smoker), alcohol abuse. denies: prescription drug abuse, IV drug use Family history: cancer (Brain cancer in grandfather, lung cancer in aunt) Medications and Allergies Allergies Allergy/AdvReac Type Severity Reaction Status Date / Time No Known Allergies Allergy Verified 07/16/20 22:03 Home Medications Medication Instructions Recorded Confirmed Last Taken Type No Known Home Medications [No 07/17/20 07/17/20 Unknown History Reported Home Medications] Active Meds: Active Medications Norepinephrine (Levophed Drip 4 Mg/Ns 250 Ml) 4 mg in 250 mls @ 7.5 mls/hr IV TITR ESTELA; Protocol Last Titration: 07/17/20 06:45 Dose: 28 mcg/min, 105 mls/hr Documented by: Sodium Chloride (Nacl 0.9% 1000 Ml) 1,000 mls @ 125 mls/hr IV DIRECT ESTELA Last Admin: 07/17/20 05:08 Dose: 125 mls/hr Documented by: Sodium Bicarbonate 50 meq/ (Sodium Chloride) 1,050 mls @ 100 mls/hr IV DIRECT ESTELA Last Admin: 07/17/20 05:18 Dose: 100 mls/hr Documented by: Ampicillin Sodium/Sulbactam Sodium (Unasyn/Ns 3 Gm/100 Ml) 3 gm in 100 mls @ 200 mls/hr IV Q6H ESTELA; Protocol Last Admin: 07/17/20 05:59 Dose: 200 mls/hr Documented by: Acetylcysteine 11,000 mg/ (Dextrose) 255 mls @ 200 mls/hr IV ONCE ONE Stop: 07/17/20 11:46 Acetylcysteine 3,800 mg/ (Dextrose) 519 mls @ 125 mls/hr IV ONCE ONE Stop: 07/17/20 15:39 Acetylcysteine 7,500 mg/ (Dextrose) 1,037.5 mls @ 62.5 mls/hr IV ONCE ONE Stop: 07/18/20 08:05 Doxycycline Hyclate 100 mg/ (Sodium Chloride) 250 mls @ 250 mls/hr IV Q12HR ESTELA; Protocol Stop: 07/21/20 22:59 Magnesium Hydroxide (Magnesium Hydroxide (Mom) Oral Liqd Udc) 30 ml PO Q4H PRN PRN Reason: Constipation Morphine Sulfate (Morphine 2 Mg/1 Ml Inj) 2 mg IV Q4H PRN PRN Reason: Pain, Moderate (4-6) Ondansetron HCl (Ondansetron 4 Mg/2 Ml Inj) 4 mg IV Q8H PRN PRN Reason: Nausea And Vomiting Sodium Chloride (Sodium Chloride 0.9% 10 Ml Flush Syringe) 10 ml IV BID ESTELA Sodium Chloride (Sodium Chloride 0.9% 10 Ml Flush Syringe) 10 ml IV PRN PRN PRN Reason: LINE FLUSH Physical Examination - Physical Exam Narrative exam: Physical Exam: Constitutional: Drowsy but can be awakened,, cooperative. No acute distress Head, Ears, Nose: Normocephalic, atraumatic. External ears, nose normal Eyes: Conjunctivae/corneas clear. No icterus. No ptosis. Neck: Supple, no meningeal signs Cardiovascular: S1, S2 normal. Respiratory: Good air entry, clear to auscultation bilaterally GI: Tender, bowel sounds hypo Musculoskeletal: No pedal edema, no cyanosis. Skin: No rash or abscess Hem/Lymphatic: No palpable cervical or supraclavicular nodes. No lymphangitis Psych: Drowsy Neurological: Drowsy, can be awakened. No gross abnormality - Constitutional Vitals: Vital Signs Temp Pulse Resp BP Pulse Ox 97.8 F 125 H 25 H 79/29 98 07/17/20 00:30 07/17/20 05:15 07/17/20 05:15 07/17/20 05:15 07/17/20 05:15 Temperature -Last 24 Hours Temperature 97.8 F Temperature 98.5 F Results - Labs CBC & Chem 7: 07/16/20 20:47 07/16/20 20:47 Labs: Abnormal lab results 07/16/20 07/16/20 07/16/20 Range/Units 03:54 20:47 20:47 WBC 33.9 H (4.5-11.0) K/mm3 MCV 107 H (79-97) fl MCH 34 H (28-32) pg RDW 22.0 H (13.2-15.2) % Seg Neuts % (Manual) 89.0 H (40.0-70.0) % Lymphocytes % (Manual) 2.0 L (13.4-35.0) % Nucleated RBC % 1.0 H (0.0-0.9) % Seg Neutrophils # Man 30.2 H (1.8-7.7) K/mm3 Lymphocytes # (Manual) 0.7 L (1.2-5.4) K/mm3 Monocytes # (Manual) 1.4 H (0.0-0.8) K/mm3 VBG pH (7.320-7.420) Potassium 5.1 H (3.6-5.0) mmol/L Carbon Dioxide 9 L* (22-30) mmol/L BUN 20 H (7-17) mg/dL Creatinine 1.9 H (0.6-1.2) mg/dL Glucose 30 L* (65-100) mg/dL POC Glucose (70-105) mg/dL Lactic Acid (0.7-2.0) mmol/L Total Bilirubin 5.40 H (0.1-1.2) mg/dL AST 71481 H (5-40) units/L ALT 1829 H (7-56) units/L Alkaline Phosphatase 141 H (35-129) units/L Total Creatine Kinase (30-135) units/L Lipase 9 L (13-60) units/L Urine WBC (Auto) 57.0 H (0.0-6.0) /HPF U Epithel Cells (Auto) 23.0 H (0-13.0) /HPF 07/16/20 07/16/20 07/16/20 Range/Units 20:47 22:43 23:06 WBC (4.5-11.0) K/mm3 MCV (79-97) fl MCH (28-32) pg RDW (13.2-15.2) % Seg Neuts % (Manual) (40.0-70.0) % Lymphocytes % (Manual) (13.4-35.0) % Nucleated RBC % (0.0-0.9) % Seg Neutrophils # Man (1.8-7.7) K/mm3 Lymphocytes # (Manual) (1.2-5.4) K/mm3 Monocytes # (Manual) (0.0-0.8) K/mm3 VBG pH (7.320-7.420) Potassium (3.6-5.0) mmol/L Carbon Dioxide (22-30) mmol/L BUN (7-17) mg/dL Creatinine (0.6-1.2) mg/dL Glucose (65-100) mg/dL POC Glucose 140 H (70-105) mg/dL Lactic Acid 14.90 H* (0.7-2.0) mmol/L Total Bilirubin (0.1-1.2) mg/dL AST (5-40) units/L ALT (7-56) units/L Alkaline Phosphatase (35-129) units/L Total Creatine Kinase 230 H (30-135) units/L Lipase (13-60) units/L Urine WBC (Auto) (0.0-6.0) /HPF U Epithel Cells (Auto) (0-13.0) /HPF 07/17/20 07/17/20 07/17/20 Range/Units 01:46 01:46 04:55 WBC (4.5-11.0) K/mm3 MCV (79-97) fl MCH (28-32) pg RDW (13.2-15.2) % Seg Neuts % (Manual) (40.0-70.0) % Lymphocytes % (Manual) (13.4-35.0) % Nucleated RBC % (0.0-0.9) % Seg Neutrophils # Man (1.8-7.7) K/mm3 Lymphocytes # (Manual) (1.2-5.4) K/mm3 Monocytes # (Manual) (0.0-0.8) K/mm3 VBG pH 7.085 L* (7.320-7.420) Potassium (3.6-5.0) mmol/L Carbon Dioxide (22-30) mmol/L BUN (7-17) mg/dL Creatinine (0.6-1.2) mg/dL Glucose (65-100) mg/dL POC Glucose (70-105) mg/dL Lactic Acid 13.20 H* 12.00 H* (0.7-2.0) mmol/L Total Bilirubin (0.1-1.2) mg/dL AST (5-40) units/L ALT (7-56) units/L Alkaline Phosphatase (35-129) units/L Total Creatine Kinase (30-135) units/L Lipase (13-60) units/L Urine WBC (Auto) (0.0-6.0) /HPF U Epithel Cells (Auto) (0-13.0) /HPF 07/17/20 07/17/20 07/17/20 Range/Units 06:05 07:33 07:48 WBC (4.5-11.0) K/mm3 MCV (79-97) fl MCH (28-32) pg RDW (13.2-15.2) % Seg Neuts % (Manual) (40.0-70.0) % Lymphocytes % (Manual) (13.4-35.0) % Nucleated RBC % (0.0-0.9) % Seg Neutrophils # Man (1.8-7.7) K/mm3 Lymphocytes # (Manual) (1.2-5.4) K/mm3 Monocytes # (Manual) (0.0-0.8) K/mm3 VBG pH (7.320-7.420) Potassium (3.6-5.0) mmol/L Carbon Dioxide (22-30) mmol/L BUN (7-17) mg/dL Creatinine (0.6-1.2) mg/dL Glucose (65-100) mg/dL POC Glucose 59 L 125 H (70-105) mg/dL Lactic Acid 12.00 H* (0.7-2.0) mmol/L Total Bilirubin (0.1-1.2) mg/dL AST (5-40) units/L ALT (7-56) units/L Alkaline Phosphatase (35-129) units/L Total Creatine Kinase (30-135) units/L Lipase (13-60) units/L Urine WBC (Auto) (0.0-6.0) /HPF U Epithel Cells (Auto) (0-13.0) /HPF - Imaging and Cardiology Chest x-ray: report reviewed, image reviewed (no pneumonia) Assessment and Plan Cultures: 07/16/2020 blood culture: In process 07/17/2020 cervix wet prep: High number of clue cells, no trichomonas or yeast seen. A/P: 29/F with: #Septic shock, leukemoid reaction, lactic acidosis #Acute hepatic failure: ?Toxin/med related. Also rule out HSV induced hepatic necrosis. #Acute kidney injury #Possible UTI/PID Recs: -Follow-up acute hepatitis panel, Tylenol level, alcohol level -Follow-up STD testing. Syphilis and HIV test also ordered, consent obtained from patient -HSV DNR PCR on serum ordered, also started renally adjusted IV acyclovir. D/W Dr. Bee -Empiric ceftriaxone and doxycycline for now -monitor synthetic liver function, if worsening, may need transplant evaluation Kinjal Abebe MD, FACP [facility] ([facility] O: [phone] F: [phone]
[2020-07-17] MEDS: MORPHINE 2 MG/1 ML INJ IV PRN ×2 (11:08→18:57)
[2020-07-17] MEDS: DOXYCYCLINE HYCLATE 100 MG in SODIUM CHLORIDE 0.9% 250ML 250 ML IV SCH (11:15)
[2020-07-17 11:48] LABS: Albumin 2.8 g/dL (3.9-5)
[2020-07-17 12:19] LABS: INR > 17.67 (0.87-1.13)
[2020-07-17] MEDS ORDERED: PHYTONADIONE(ADULT ONLY) 10 MG in SODIUM CHLORIDE 0.9% 50 ML IV ONE (13:00)
[2020-07-17] MEDS: cefTRIAXone/NS 1 GM/50 ML 1 GM/50 ML BAG IV SCH (13:32)
[2020-07-17 13:35] LABS: Hepatitis B Surface Antigen Non-Reactive (Negative); Hepatitis C Virus Antibody Non-Reactive (NonReactive)
--- NOTE | 2020-07-17 13:55 | History and Physical Report ---
History of Present Illness Date of examination: 07/17/20 Date of admission: 07/17/20 02:38 Chief complaint: Abdominal pain History of present illness: Patient 29-year-old female presented with 2 to 3 days of abdominal pain described as sharp colicky pain radiating to her flanks associated with nausea and vomiting several times. Patient states symptoms became so severe today she had to come to the emergency room. Upon work-up in the ED patient was found to be hypotensive tachycardic hypoglycemic and diagnosed with severe sepsis. Patient required pressor support with Levophed as well as aggressive IV fluids. Further work-up revealed patient to have liver failure and acute renal failure. Patient remained alert but somewhat lethargic throughout history and physical. Patient relates using Tylenol and Advil every 2-4 hours for 2 months because of tooth pain. Patient also states she drinks alcohol as well. I did speak to the boyfriend Mr. Augustine Mac and states they usually drink about 3-4 times per week with occasional shots and/or wine. Patient currently in the ED because there are no ICU beds available. On physical exam initially patient found to be tachycardic hypotensive with stable with Levophed. Requiring dose titration up on pressor support. The rest of patient's history is fairly unremarkable. Patient denies any drugs denies any sick contacts. Denies any fever chills no nausea vomiting prior to this incident. No sick contacts at the home. Patient has no past history of liver disease. Patient states she was tested for hep atitis several months ago and was negative. Patient and family denies any episodes of having liver problems in the past. Past History Past Medical History: No medical history. denies: acute [place], atrial fib, arrhythmia, anemia, arthritis, PVD, renal failure Past Surgical History: cholecystectomy Social history: single, lives with family, smoking (Current daily smoker), alcohol abuse. denies: prescription drug abuse, IV drug use Family history: cancer (Brain cancer in grandfather, lung cancer in aunt) Medications and Allergies Allergies Allergy/AdvReac Type Severity Reaction Status Date / Time No Known Allergies Allergy Verified 07/16/20 22:03 Home Medications Medication Instructions Recorded Confirmed Last Taken Type No Known Home Medications [No 07/17/20 07/17/20 Unknown History Reported Home Medications] Active Meds: Active Medications Norepinephrine (Levophed Drip 4 Mg/Ns 250 Ml) 4 mg in 250 mls @ 7.5 mls/hr IV TITR ESTELA; Protocol Last Admin: 07/17/20 13:20 Dose: 30 mcg/min, 112.5 mls/hr Documented by: Sodium Chloride (Nacl 0.9% 1000 Ml) 1,000 mls @ 125 mls/hr IV DIRECT ESTELA Last Infusion: 07/17/20 13:40 Dose: Infused Documented by: Sodium Bicarbonate 50 meq/ (Sodium Chloride) 1,050 mls @ 100 mls/hr IV DIRECT ESTELA Last Admin: 07/17/20 05:18 Dose: 100 mls/hr Documented by: Acetylcysteine 3,800 mg/ (Dextrose) 519 mls @ 125 mls/hr IV ONCE ONE Stop: 07/17/20 15:39 Last Admin: 07/17/20 13:27 Dose: 125 mls/hr Documented by: Acetylcysteine 7,500 mg/ (Dextrose) 1,037.5 mls @ 62.5 mls/hr IV ONCE ONE Stop: 07/18/20 08:05 Doxycycline Hyclate 100 mg/ (Sodium Chloride) 250 mls @ 250 mls/hr IV Q12HR ESTELA; Protocol Stop: 07/21/20 22:59 Last Admin: 07/17/20 11:15 Dose: 250 mls/hr Documented by: Acyclovir 370 mg/ Sodium (Chloride) 107.4 mls @ 100 mls/hr IV Q12HR ESTELA; Protocol Ceftriaxone Sodium (Rocephin/Ns 1 Gm/50 Ml) 1 gm in 50 mls @ 100 mls/hr IV Q24HR ESTELA; Protocol Last Admin: 07/17/20 13:32 Dose: 100 mls/hr Documented by: Magnesium Hydroxide (Magnesium Hydroxide (Mom) Oral Liqd Udc) 30 ml PO Q4H PRN PRN Reason: Constipation Morphine Sulfate (Morphine 2 Mg/1 Ml Inj) 2 mg IV Q4H PRN PRN Reason: Pain, Moderate (4-6) Last Admin: 07/17/20 11:08 Dose: 2 mg Documented by: Ondansetron HCl (Ondansetron 4 Mg/2 Ml Inj) 4 mg IV Q8H PRN PRN Reason: Nausea And Vomiting Sodium Chloride (Sodium Chloride 0.9% 10 Ml Flush Syringe) 10 ml IV BID ESTELA Last Admin: 07/17/20 11:10 Dose: 10 ml Documented by: Sodium Chloride (Sodium Chloride 0.9% 10 Ml Flush Syringe) 10 ml IV PRN PRN PRN Reason: LINE FLUSH Review of Systems Constitutional: fatigue, weakness, malaise, lethargy, poor appetite, chronic pain, no weight loss, no weight gain, no fever, no sweats, no night sweats, no chronic headaches, no daytime sleepiness Ears, nose, mouth and throat: dental pain, swelling in mouth, no decreased hearing, no nasal congestion, no mouth pain, no post-nasal drip, no headache, no vertigo, no pain front of neck Breasts: deferred Cardiovascular: no chest pain, no edema, no shortness of breath, no paroxysmal nocturnal dyspnea, no claudication, no high blood pressure, no leg edema, no decreased exercise tolerance Respiratory: no cough, no excessive sputum, no hemoptysis, no pleurisy, no snoring, no sleep apnea, no respiratory infections Gastrointestinal: abdominal pain, nausea, vomiting, loss of appetite, early satiety, heartburn, indigestion, no diarrhea, no constipation, no change in bowel habits, no hematemesis, no coffee ground emesis, no BRBPR, no melena, no hematochezia, no belching, no excessive gas, no jaundice, no dyspepsia/bloating, no early satiety Genitourinary Female: vaginal itching, vaginal discharge, other (Scant vaginal discharge.) Menstruation: no currently menstrual Rectal: no pain, no incontinence, no bleeding Musculoskeletal: muscle weakness, no neck pain, no low back pain, no morning stiffness, no loss of height Neurological: no head injury, no paralysis, no tingling, no headaches, no change in mentation, no memory loss, no loss of vision, no spasticity, no other Psychiatric: no anxiety, no sleep disturbances, no insomnia, no suicidal ideat ion, no hallucinations, no depression, no difficulties concentrating, no confusion Endocrine: no heat intolerance, no excessive thirst, no weight change, no palpatations, no low blood sugars Hematologic/Lymphatic: no easy bruising, no easy bleeding, no lymphedema, no other Allergic/Immunologic: no seasonal allergies Exam - Constitutional Vitals: Temp Pulse Resp BP Pulse Ox 97.8 F 125 H 25 H 79/29 98 07/17/20 00:30 07/17/20 05:15 07/17/20 05:15 07/17/20 05:15 07/17/20 05:15 General appearance: Present: mild distress, other (Lethargic not quite encephalopathic alert appears to be tired. Patient states she is just fatigued.) - EENT Eyes: Present: PERRL ENT: hearing intact, clear oral mucosa - Respiratory Respiratory: bilateral: CTA - Cardiovascular Rhythm: regular - Extremities Extremities: pulses symmetrical, No edema Peripheral Pulses: within normal limits - Abdominal General gastrointestinal: Present: soft, non-tender, distended, normal bowel sounds. Absent: hepatomegaly, splenomegaly - Musculoskeletal Musculoskeletal: strength equal bilaterally - Psychiatric Psychiatric: appropriate mood/affect, intact judgment & insight, memory intact - Neurologic Neurologic: CNII-XII intact, focal deficits, moves all extremities HEART Score - HEART Score Troponin: Troponin T < 0.010 ng/mL (0.00-0.029) 07/16/20 20:47 Results - Labs CBC & Chem 7: 07/16/20 20:47 07/17/20 09:24 Labs: Laboratory Last Values WBC 33.9 K/mm3 (4.5-11.0) H 07/16/20 20:47 RBC 3.84 M/mm3 (3.65-5.03) 07/16/20 20:47 Hgb 13.2 gm/dl (10.1-14.3) 07/16/20 20:47 Hct 41.2 % (30.3-42.9) 07/16/20 20:47 MCV 107 fl (79-97) H 07/16/20 20:47 MCH 34 pg (28-32) H 07/16/20 20:47 MCHC 32 % (30-34) 07/16/20 20:47 RDW 22.0 % (13.2-15.2) H 07/16/20 20:47 Plt Count 258 K/mm3 (140-440) 07/16/20 20:47 Add Manual Diff Complete 07/16/20 20:47 Total Counted 100 12 20:47 Seg Neutrophils % Rn Documentation 07/16/20 20:47 Seg Neuts % (Manual) 89.0 % (40.0-70.0) H 07/16/20 20:47 Band Neutrophils % 5.0 % 07/16/20 20:47 Lymphocytes % (Manual) 2.0 % (13.4-35.0) L 07/16/20 20:47 Monocytes % (Manual) 4.0 % (0.0-7.3) 07/16/20 20:47 Nucleated RBC % 1.0 % (0.0-0.9) H 07/16/20 20:47 Seg Neutrophils # Man 30.2 K/mm3 (1.8-7.7) H 07/16/20 20:47 Band Neutrophils # 1.7 K/mm3 07/16/20 20:47 Lymphocytes # (Manual) 0.7 K/mm3 (1.2-5.4) L 07/16/20 20:47 Abs React Lymphs (Man) 0.0 K/mm3 07/16/20 20:47 Monocytes # (Manual) 1.4 K/mm3 (0.0-0.8) H 07/16/20 20:47 Eosinophils # (Manual) 0.0 K/mm3 (0.0-0.4) 07/16/20 20:47 Basophils # (Manual) 0.0 K/mm3 (0.0-0.1) 07/16/20 20:47 Metamyelocytes # 0.0 K/mm3 07/16/20 20:47 Myelocytes # 0.0 K/mm3 07/16/20 20:47 Promyelocytes # 0.0 K/mm3 07/16/20 20:47 Blast Cells # 0.0 K/mm3 07/16/20 20:47 Hypersegmented Neuts Not Reportable 07/16/20 20:47 Hyposegmented Neuts Not Reportable 07/16/20 20:47 Hypogranular Neuts Not Reportable 07/16/20 20:47 Smudge Cells Not Reportable 07/16/20 20:47 Toxic Granulation Not Reportable 07/16/20 20:47 Toxic Vacuolation Not Reportable 07/16/20 20:47 Dohle Bodies Not Reportable 07/16/20 20:47 Pelger-Huet Anomaly Not Reportable 07/16/20 20:47 Fede Rods Not Reportable 07/16/20 20:47 Platelet Estimate Consistent w auto 07/16/20 20:47 Clumped Platelets Not Reportable 07/16/20 20:47 Plt Clumps, EDTA Not Reportable 07/16/20 20:47 Large Platelets Rare 07/16/20 20:47 Giant Platelets Not Reportable 07/16/20 20:47 Platelet Satelliting Not Reportable 07/16/20 20:47 Plt Morphology Comment Not Reportable 07/16/20 20:47 RBC Morphology Not Reportable 07/16/20 20:47 Dimorphic RBCs Not Reportable 07/16/20 20:47 Polychromasia Not Reportable 07/16/20 20:47 Hypochromasia Not Reportable 07/16/20 20:47 Poikilocytosis Not Reportable 07/16/20 20:47 Anisocytosis 1+ 07/16/20 20:47 Microcytosis Not Reportable 07/16/20 20:47 Macrocytosis Not Reportable 07/16/20 20:47 Spherocytes Not Reportable 07/16/20 20:47 Pappenheimer Bodies Not Reportable 07/16/20 20:47 Sickle Cells Not Reportable 07/16/20 20:47 Target Cells Not Reportable 07/16/20 20:47 Tear Drop Cells Not Reportable 07/16/20 20:47 Ovalocytes Not Reportable 07/16/20 20:47 Helmet Cells Not Reportable 07/16/20 20:47 Donaldson-Quenemo Bodies Not Reportable 07/16/20 20:47 Murdock Rings Not Reportable 07/16/20 20:47 [place] Cells Not Reportable 07/16/20 20:47 Bite Cells Not Reportable 07/16/20 20:47 Crenated Cell Not Reportable 07/16/20 20:47 Elliptocytes Not Reportable 07/16/20 20:47 Acanthocytes (Spur) Not Reportable 07/16/20 20:47 Rouleaux Not Reportable 07/16/20 20:47 Hemoglobin C Crystals Not Reportable 07/16/20 20:47 Schistocytes Not Reportable 07/16/20 20:47 Malaria parasites Not Reportable 07/16/20 20:47 Richard Bodies Not Reportable 07/16/20 20:47 Hem Pathologist Commnt Sent to pathology 07/16/20 20:47 PT 60.1 Sec. (12.2-14.9) H 07/17/20 11:08 INR > 17.67 (0.87-1.13) H* 07/17/20 11:08 VBG pH 7.085 (7.320-7.420) L* 07/17/20 01:46 Sodium 139 mmol/L (137-145) 07/17/20 09:24 Potassium 5.7 mmol/L (3.6-5.0) H 07/17/20 09:24 Chloride 107.6 mmol/L (98-107) H 07/17/20 09:24 Carbon Dioxide 13 mmol/L (22-30) L 07/17/20 09:24 Anion Gap 24 mmol/L 07/17/20 09:24 BUN 24 mg/dL (7-17) H 07/17/20 09:24 Creatinine 2.1 mg/dL (0.6-1.2) H 07/17/20 09:24 Estimated GFR 34 ml/min 07/17/20 09:24 BUN/Creatinine Ratio 11 % 07/17/20 09:24 Glucose 121 mg/dL (65-100) H 07/17/20 09:24 POC Glucose 125 mg/dL (70-105) H 07/17/20 07:33 Lactic Acid 9.80 mmol/L (0.7-2.0) H* 07/17/20 11:08 Calcium 6.0 mg/dL (8.4-10.2) L D 07/17/20 09:24 Magnesium 2.10 mg/dL (1.7-2.3) 07/16/20 20:47 Total Bilirubin 3.80 mg/dL (0.1-1.2) H 07/17/20 09:24 AST 8355 units/L (5-40) H 07/17/20 09:24 ALT 1522 units/L (7-56) H 07/17/20 09:24 Alkaline Phosphatase 105 units/L (35-129) 07/17/20 09:24 Total Creatine Kinase 332 units/L (30-135) H 07/17/20 09:23 Troponin T < 0.010 ng/mL (0.00-0.029) 07/16/20 20:47 Total Protein 4.7 g/dL (6.3-8.2) L D 07/17/20 09:24 Albumin 2.8 g/dL (3.9-5) L 07/17/20 09:24 Albumin/Globulin Ratio 1.5 % 07/17/20 09:24 Lipase 14 units/L (13-60) 07/17/20 01:46 TSH 0.354 mlU/mL (0.270-4.200) 07/16/20 20:47 HCG, Qual Negative (Negative) 07/16/20 20:47 Urine Color Red (Yellow) 07/16/20 03:54 Urine Turbidity Turbid (Clear) 07/16/20 03:54 Urine pH 5.0 (5.0-7.0) 07/16/20 03:54 Ur Specific [place] 1.013 (1.003-1.030) 07/16/20 03:54 Urine Protein >500 mg/dL (Negative) 07/16/20 03:54 Urine Glucose (UA) Neg mg/dL (Negative) 07/16/20 03:54 Urine Ketones Tr mg/dL (Negative) 07/16/20 03:54 Urine Blood Lg (Negative) 07/16/20 03:54 Urine Nitrite Neg (Negative) 07/16/20 03:54 Urine Bilirubin Neg (Negative) 07/16/20 03:54 Urine Urobilinogen < 2.0 mg/dL (<2.0) 07/16/20 03:54 Ur Leukocyte Esterase Sm (Negative) 07/16/20 03:54 Urine WBC (Auto) 57.0 /HPF (0.0-6.0) H 07/16/20 03:54 Urine RBC (Auto) 35.0 /HPF (0.0-6.0) 07/16/20 03:54 U Epithel Cells (Auto) 23.0 /HPF (0-13.0) H 07/16/20 03:54 Urine Bacteria (Auto) 1+ /HPF (Negative) 07/16/20 03:54 Urine WBC Clumps 3+ /HPF 07/16/20 03:54 Urine Mucus Few /HPF 07/16/20 03:54 Acetaminophen 5.0 ug/mL (10.0-30.0) L 07/17/20 09:23 Hepatitis A IgM Ab Non-reactive (NonReactive) 07/17/20 11:08 Hep Bs Antigen Non-reactive (Negative) 07/17/20 11:08 Hep B Core IgM Ab Non-reactive (NonReactive) 07/17/20 11:08 Hepatitis C Antibody Non-reactive (NonReactive) 07/17/20 11:08 HIV 1&2 Antibody Rapid Non react (Non React) 07/17/20 11:08 HIV P24 Antigen Non react (Non React) 07/17/20 11:08 Microbiology: Microbiology 07/16/20 23:00 Peripheral/Venous Blood Culture - Preliminary Culture in Progress 07/16/20 23:06 Peripheral/Venous Blood Culture - Preliminary Culture in Progress 07/17/20 03:30 Cervix Wet Prep - Final - Imaging and Cardiology CT scan - abdomen: report reviewed, image reviewed Kenney/IV: IV Catheter Type [Right Hand] INT / Saline Lock IV Catheter Type [Left Hand] INT / Saline Lock Assessment and Plan Assessment and plan: #1 severe sepsis with shock-exact etiology unknown most likely multifactorial. PID versus abdominal source versus viral. -Started on empiric antibiotics doxycycline Rocephin -Follow-up blood culture data -Continue supportive care with IV fluids pain control pressor support -ID consult rule out hepatitis viral or autoimmune -Addition of sodium bicarbonate for lactic acidosis. #2 pancolitis also most likely secondary to infection hepatitis hepatic necrosis. HSV also in the differential. -Bowel rest supportive care n.p.o. for now. -GI consult. #3 acute liver failure profoundly elevated transaminases. Could be secondary to acute viral illness, shock liver, versus Tylenol misuse in combination with alcohol abuse -We will monitor serial liver enzymes. Ensure enzymes are downtrending. May be candidate for transfer to a facility that has open bed for ICU. Will also benefit from hospital with Liver team?unit. Unlikely may potentially require liver transplant -Follow serial liver enzymes and associated INR. We will also rule out hepatitis. Patient's Tylenol level is not that high however patient could have been taking Tylenol consistently every 2 hours and has not had any in a while will still give her acute Hepatic failure especially when associated with alcohol use. #4 coagulation disorder. Patient INR greater than 17. We will start vitamin K follow-up PT/INR later this afternoon. May need additional dose. #5 acute kidney injury most likely secondary to vasomotor nephropathy. Aggressive IV volume replacement. #[address] patient on CIWA protocol #7 metabolic acidosis continue bicarbonate drip. #8 UTI continue Rocephin. #9 DVT prophylaxis. Patient INR greater than 17 high risk of bleeding will hold anticoagulant. #10 acute abdominal pain secondary to liver disease. Pelvic inflammatory disease. #11 SVT we will see if we can resolve this with aggressive IV fluids. May require Cardizem drip. This is because patient is septic and volume depleted. We will see if it would respond to correct underlying etiology first. Advance Directives: Yes VTE prophylaxis?: Not ordered Contraindication Mechanical VTE Prophylaxis: Contraindicated Reason for no VTE Prophylaxis: Blood coagulation disorde Plan of care discussed with patient/family: Yes
[2020-07-17] MEDS: ACYCLOVIR IV SCH (14:00)
[2020-07-17] MEDS: SODIUM CHLORIDE 0.9% IV SCH (14:00)
--- NOTE | 2020-07-17 14:10 | Event Note ---
Date: 07/17/20 Reviewed labs and chart. Patient is critically ill, in fulminant hepatic failure. Agree with empiric mucomyst, but patient would benefit from being a transplant center if possible. Agree with resuscitation but must be cautious. Currently respiratory state is stable. Continue serial Lactic acid's and coags along with renal function. Needs q1 hour neuro checks and vitals. Very very guarded prognosis.
[2020-07-17 15:02] LABS: Hematocrit 27.8 % (30.3-42.9); Hemoglobin 9.1 gm/dl (10.1-14.3); Mean Corpuscular HGB Conc 33 % (30-34); Mean Corpuscular Volume 104 fl (79-97); Platelet Count 191 K/mm3 (140-440); Red Blood Count 2.66 M/mm3 (3.65-5.03)
[2020-07-17 15:04] LABS: Red Cell Distribution Width 22.6 % (13.2-15.2)
[2020-07-17 15:18] LABS: INR 8.29 (0.87-1.13)
[2020-07-17 15:32] LABS: Albumin 2.5 g/dL (3.9-5)
--- NOTE | 2020-07-17 15:35 | Event Note ---
Date: 07/17/20 Second look at patient this afternoon. She remains alert and oriented/no lethargy or asterixis. Her INR and WBC are improved; lactic acid/ammonia/LFTs are all pending. She is on levophed with no worsening of BP, but urine output is minimal. I have initiated calls with transplant center ([facility]); no change in management at present (would receive same care at [facility] for next 24 hours), but if signs of decompensation (encephalopathy, worsening coags, etc) will evaluate patient for transfer. Almost certain that patient will be on CRRT/ventilator in the next 24 hours; agree with close monitoring in ICU status, even though slight improvement in labs and clinical picture over the last 12 hours.
[2020-07-17 15:48] LABS: Calcium 5.8 mg/dL (8.4-10.2)
--- NOTE | 2020-07-17 16:58 | Consultation ---
History of Present Illness - Reason for Consult Consult date: 07/17/20 acute renal failure - History of Present Illness This is a 29 year old female who presents to the hospital with a chief complaint of weakness, generalized abdominal pain with nausea and vomiting and fainting episode and vaginal discharge for approximately 2 days. Patient seen in E.R and dark brown emesis is noted to be on floor. Notified nurse of this finding. On evaluation patient was noted to be hypotensive with SBP in the 80's. Ct scan revealed Mild pancolitis, hiatal hernia and hepatomegaly. Pertinent labs revealed lactic acidosis, an elevated WBC of 33 and elevated liver enzymes and elevated serum creatinine of 1.9 which beata to 2.5 today. Baseline serum creatinine unknown. Patient's Syphilis lab came back reactive. We are being consulted for management of this patient's Acute Renal Failure. Past History Past Medical History: No medical history. denies: acute [place], atrial fib, arrhythmia, anemia, arthritis, PVD, renal failure Past Surgical History: cholecystectomy Social history: single, lives with family, smoking (Current daily smoker), alcohol abuse. denies: prescription drug abuse, IV drug use Family history: cancer (Brain cancer in grandfather, lung cancer in aunt) Medications and Allergies Allergies Allergy/AdvReac Type Severity Reaction Status Date / Time No Known Allergies Allergy Verified 07/16/20 22:03 Home Medications Medication Instructions Recorded Confirmed Last Taken Type No Known Home Medications [No 07/17/20 07/17/20 Unknown History Reported Home Medications] Active Meds: Active Medications Norepinephrine (Levophed Drip 4 Mg/Ns 250 Ml) 4 mg in 250 mls @ 7.5 mls/hr IV TITR ESTELA; Protocol Last Admin: 07/17/20 16:30 Dose: 30 mcg/min, 112.5 mls/hr Documented by: Sodium Chloride (Nacl 0.9% 1000 Ml) 1,000 mls @ 125 mls/hr IV DIRECT ESTELA Last Infusion: 07/17/20 13:40 Dose: Infused Documented by: Sodium Bicarbonate 50 meq/ (Sodium Chloride) 1,050 mls @ 100 mls/hr IV DIRECT ESTELA Last Admin: 07/17/20 05:18 Dose: 100 mls/hr Documented by: Acetylcysteine 7,500 mg/ (Dextrose) 1,037.5 mls @ 62.5 mls/hr IV ONCE ONE Stop: 12/22/20 08:05 Doxycycline Hyclate 100 mg/ (Sodium Chloride) 250 mls @ 250 mls/hr IV Q12HR [facility]; Protocol Stop: 07/21/20 22:59 Last Admin: 07/17/20 11:15 Dose: 250 mls/hr Documented by: Acyclovir 370 mg/ Sodium (Chloride) 107.4 mls @ 100 mls/hr IV Q12HR ESTELA; Protocol Last Admin: 07/17/20 14:00 Dose: 100 mls/hr Documented by: Ceftriaxone Sodium (Rocephin/Ns 1 Gm/50 Ml) 1 gm in 50 mls @ 100 mls/hr IV Q24HR ESTELA; Protocol Last Admin: 07/17/20 13:32 Dose: 100 mls/hr Documented by: Magnesium Hydroxide (Magnesium Hydroxide (Mom) Oral Liqd Udc) 30 ml PO Q4H PRN PRN Reason: Constipation Morphine Sulfate (Morphine 2 Mg/1 Ml Inj) 2 mg IV Q4H PRN PRN Reason: Pain, Moderate (4-6) Last Admin: 07/17/20 11:08 Dose: 2 mg Documented by: Ondansetron HCl (Ondansetron 4 Mg/2 Ml Inj) 4 mg IV Q8H PRN PRN Reason: Nausea And Vomiting Sodium Chloride (Sodium Chloride 0.9% 10 Ml Flush Syringe) 10 ml IV BID [facility] Last Admin: 07/17/20 11:10 Dose: 10 ml Documented by: Sodium Chloride (Sodium Chloride 0.9% 10 Ml Flush Syringe) 10 ml IV PRN PRN PRN Reason: LINE FLUSH Review of Systems Constitutional: chills, fatigue, weakness, poor appetite Ears, nose, mouth and throat: no ear pain, no ear discharge, no tinnitis, no decreased hearing, no nose pain, no nasal congestion, no nasal discharge Cardiovascular: no chest pain, no orthopnea, no palpitations, no rapid/irregular heart beat, no edema, no syncope, no lightheadedness, no shortness of breath Respiratory: no cough with sputum, no excessive sputum, no hemoptysis Gastrointestinal: abdominal pain, nausea, vomiting, coffee ground emesis, no diarrhea, no constipation Genitourinary Female: no menorrhagia, no urinary frequency, no urgency Rectal: no incontinence, no bleeding, no itching Musculoskeletal: no neck stiffness, no neck pain, no shooting arm pain, no arm numbness/tingling, no low back pain, no shooting leg pain Integumentary: no rash, no pruritis, no redness, no sores, no wounds Neurological: weakness, no head injury, no transient paralysis, no paralysis, no parathesias, no numbness, no tingling, no seizures Psychiatric: change in appetite, no anxiety, no memory loss, no change in sleep habits, no sleep disturbances, no insomnia, no hypersomnia Endocrine: no cold intolerance, no heat intolerance, no polyphagia, no excessive thirst, no polydipsia Exam - Vital Signs Vital signs: Vital Signs Temp Pulse Resp BP Pulse Ox 98.5 F 137 H 18 90/49 95 07/16/20 20:32 07/16/20 20:32 07/16/20 20:32 07/16/20 20:32 07/16/20 20:32 - General Appearance General appearance: well-developed, appears stated age, fatigue EENT: ATNC, PERRL, hearing intact, vision intact Neck: Present: neck supple, trachea midline Respiratory: Decreased Breath Sounds Heart: S1S2 Gastrointestinal: Present: normoactive bowel sounds, other (Noted to have vomited dark brown emesis on the floor just prior to me entering room) Integumentary: warm and dry Neurologic: alert and oriented x3 Musculoskeletal: Present: other (No edema) Results - Lab Results 07/17/20 14:34 07/17/20 16:45 Most recent lab results Calcium 5.8 mg/dL (8.4-10.2) L* 07/17/20 14:34 Magnesium 2.10 mg/dL (1.7-2.3) 07/16/20 20:47 Assessment and Plan Acute Renal Failure possibly due to Hepatorenal Syndrome vs Ischemic ATN due to Septics Shock: Hypotension Septic Shock Met. Acidosis Acute Liver Failure N/V UTI Syphilis Plan: -Renal labs reviewed. Serum creatinine 2.5 today, yesterday's was 1.9 -Obtain renal ultrasound to rule out obstruction -Obtain urine lytes, protein labs and urine eosinophils -Continue on IVF's -N/V, Pancolitis, Acute liver Injury-GI onboard -Hypotension-On Levophed drip -Sepsis-On multiple IV antibiotics -Obtain daily weights -Monitor I/O's daily -Avoid nephrotoxic agents -No acute indication for LINING CASER at this time -Monitor renal function closely
[2020-07-17 17:19] LABS: Albumin 2.5 g/dL (3.9-5)
[2020-07-17] MEDS: ONDANSETRON 4 MG/2 ML INJ IV PRN (20:24)
[2020-07-18] MEDS: NORepinephrine/NS 4 MG-250 ML 4 MG/250 ML BAG IV SCH ×7 (01:15→19:30)
[2020-07-18] MEDS: SODIUM BICARBONATE 50 MEQ in SODIUM CHLORIDE 0.9% 1000 ML 1,000 ML IV SCH (04:15)
[2020-07-18] MEDS: ACYCLOVIR IV SCH ×2 (04:30→22:01)
[2020-07-18] MEDS: SODIUM CHLORIDE 0.9% IV SCH ×2 (04:30→22:01)
[2020-07-18] MEDS: DOXYCYCLINE HYCLATE 100 MG in SODIUM CHLORIDE 0.9% 250ML 250 ML IV SCH ×2 (04:30→13:43)
[2020-07-18 05:08] LABS: Hematocrit 25.5 % (30.3-42.9); Hemoglobin 8.5 gm/dl (10.1-14.3); Mean Corpuscular HGB Conc 33 % (30-34); Mean Corpuscular Volume 103 fl (79-97); Platelet Count 158 K/mm3 (140-440); Red Blood Count 2.47 M/mm3 (3.65-5.03)
[2020-07-18 05:10] LABS: Red Cell Distribution Width 21.7 % (13.2-15.2)
[2020-07-18 05:11] LABS: Basophils % (Auto) 0.1 % (0.0-1.8); Eosinophils # (Auto) 0.7 K/mm3 (0.0-0.4); Lymphocytes # (Auto) 1.2 K/mm3 (1.2-5.4); Lymphocytes % (Auto) 5.3 % (13.4-35.0); Monocytes # (Auto) 0.8 K/mm3 (0.0-0.8); Monocytes % (Auto) 3.4 % (0.0-7.3)
[2020-07-18 05:20] LABS: INR 5.78 (0.87-1.13)
[2020-07-18 05:25] LABS: Calcium 6.4 mg/dL (8.4-10.2)
[2020-07-18] MEDS: FOLIC ACID 1 MG in SODIUM CHLORIDE 0.9% 50 ML IV SCH (09:56)
[2020-07-18] MEDS: THIAMINE 100 MG in SODIUM CHLORIDE 0.9% 50 ML IV SCH (10:19)
--- NOTE | 2020-07-18 10:37 | Progress Note ---
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 Acidosis Acute Liver Failure N/V UTI Syphilis Plan: -Cr is slowly rising, non-oliguric -Obtain renal ultrasound to rule out obstruction -Obtain urine lytes, protein labs and urine eosinophils-pending -Continue on IVF's -N/V, Pancolitis, Acute liver Injury-GI onboard -Hypotension-On Levophed drip -Sepsis-On multiple IV antibiotics -Obtain daily weights -Monitor I/O's daily -Avoid nephrotoxic agents -No acute indication for [employer] at this time. will monitor closely -Monitor renal function closely Gordon Schmitt MD [phone] Subjective Date of service: 07/18/20 Principal diagnosis: RINA Interval history: feels weak, answers simple questions, no family at bedside Objective - Vital Signs Vital signs: Vital Signs - 12hr 07/17/20 07/18/20 07/18/20 23:00 00:00 00:30 Pulse Rate 133 H 134 H 132 H Respiratory 20 18 19 Rate Blood Pressure 99/54 99/48 108/51 O2 Sat by Pulse 98 98 97 Oximetry 07/18/20 07/18/20 07/18/20 00:45 01:00 02:00 Pulse Rate 131 H 136 H 136 H Respiratory 28 H 33 H 21 Rate Blood Pressure 107/50 105/47 114/57 O2 Sat by Pulse 98 98 98 Oximetry 07/18/20 07/18/20 07/18/20 02:30 03:00 03:30 Pulse Rate 139 H 142 H 134 H Respiratory 32 H 15 25 H Rate Blood Pressure 100/53 99/48 108/46 O2 Sat by Pulse 97 98 100 Oximetry 07/18/20 07/18/20 07/18/20 04:30 04:46 05:00 Pulse Rate 134 H 142 H 136 H Respiratory 33 H 40 H 34 H Rate Blood Pressure 105/57 105/57 102/60 O2 Sat by Pulse 98 99 100 Oximetry 07/18/20 07/18/20 07/18/20 05:16 05:30 06:00 Pulse Rate 141 H 146 H 139 H Respiratory 34 H 23 39 H Rate Blood Pressure 102/60 96/47 96/47 O2 Sat by Pulse 98 100 98 Oximetry 07/18/20 07/18/20 07/18/20 06:30 07:00 07:30 Pulse Rate 133 H 137 H 135 H Respiratory 37 H 38 H 37 H Rate Blood Pressure 115/56 104/60 110/60 O2 Sat by Pulse 98 98 98 Oximetry 07/18/20 07/18/20 07/18/20 08:00 08:30 09:00 Pulse Rate 135 H 141 H Respiratory 32 H 35 H 42 H Rate Blood Pressure 116/53 116/53 106/52 O2 Sat by Pulse 99 99 100 Oximetry - General Appearance General appearance: well-developed, well-nourished EENT: ATNC, PERRL, mucous membranes dry Neck: no JVD, no carotid bruit Respiratory: Present: Clear to Ascultation Cardiology: tachycardia, S1S2 Gastrointestinal: normoactive bowel sounds, no tenderness, distended, no masses Integumentary: no rash, warm and dry Neurologic: no focal deficit Musculoskeletal: other (no edema in BLE) Psychiatric: cooperative - Lab 07/18/20 04:23 07/18/20 04:23 Most recent lab results Calcium 6.4 mg/dL (8.4-10.2) L 07/18/20 04:23 Magnesium 2.10 mg/dL (1.7-2.3) 07/16/20 20:47 Medications & Allergies - Medications Allergies/Adverse Reactions: Allergies No Known Allergies Allergy (Verified 07/16/20 22:03) Home Medications: Home Medications Medication Instructions Recorded Confirmed Last Taken Type No Known Home Medications [No 07/17/20 07/17/20 Unknown History Reported Home Medications] Active Medications: Generic Name Dose Route Start Last Admin Trade Name Cruz PRN Reason Stop Dose Admin Norepinephrine 4 mg in 250 mls @ 7.5 mls/hr 07/17/20 03:00 07/18/20 10:20 Levophed Drip 4 Mg/Ns 250 Ml IV 26 mcg/min TITR ESTELA 97.5 mls/hr Titration Protocol 2 MCG/MIN Sodium Bicarbonate 50 meq/ 1,050 mls @ 100 mls/hr 07/17/20 05:00 07/18/20 04:15 Sodium Chloride IV 100 mls/hr DIRECT ESTELA Administration Doxycycline Hyclate 100 mg/ 250 mls @ 250 mls/hr 07/17/20 11:00 07/18/20 04:30 Sodium Chloride IV 07/21/20 22:59 250 mls/hr Q12HR ESTELA Administration Protocol Acyclovir 370 mg/ Sodium 107.4 mls @ 100 mls/hr 07/17/20 12:00 07/18/20 10:09 Chloride IV Infused Q12HR ESTELA Infusion Protocol Ceftriaxone Sodium 1 gm in 50 mls @ 100 mls/hr 07/17/20 12:00 07/17/20 13:32 Rocephin/Ns 1 Gm/50 Ml IV 100 mls/hr Q24HR ESTELA Administration Protocol Thiamine HCl 100 mg/ Sodium 51 mls @ 100 mls/hr 07/18/20 10:00 07/18/20 10:19 Chloride IV 100 mls/hr QDAY ESTELA Administration Folic Acid 1 mg/ Sodium 50.2 mls @ 200.8 mls/hr 07/18/20 10:00 07/18/20 09:56 Chloride IV 200.8 mls/hr QDAY ESTELA Administration Magnesium Hydroxide 30 ml 07/17/20 03:56 Magnesium Hydroxide (Mom) Oral Liqd Udc PO Q4H PRN Constipation Morphine Sulfate 2 mg 07/17/20 03:56 07/18/20 00:00 Morphine 2 Mg/1 Ml Inj IV 2 mg Q4H PRN Administration Pain, Moderate (4-6) Ondansetron HCl 4 mg 07/17/20 03:56 07/17/20 20:24 Ondansetron 4 Mg/2 Ml Inj IV 4 mg Q8H PRN Administration Nausea And Vomiting Sodium Chloride 10 ml 07/17/20 10:00 07/17/20 11:10 Sodium Chloride 0.9% 10 Ml Flush Syringe IV 10 ml BID ESTELA Administration Sodium Chloride 10 ml 07/17/20 03:56 Sodium Chloride 0.9% 10 Ml Flush Syringe IV PRN PRN LINE FLUSH
--- NOTE | 2020-07-18 13:30 | Progress Note ---
Assessment and Plan May need to consider adding vasopression and weaning levophed off. Could be hepatorenal syndrome vs acidemia. Vaso would be the better choice Hydration per renal Continue to monitor labs, GI following, does not appear to be going to trans formerly named [facility] Guarded prognosis. Subjective Date of service: 07/18/20 Principal diagnosis: RINA Interval history: Numbers are better but still on levophed. Renal function worsening. Objective - Constitutional Vitals: Vital Signs - 12hr 07/18/20 07/18/20 07/18/20 02:00 02:30 03:00 Pulse Rate 136 H 139 H 142 H Respiratory 21 32 H 15 Rate Blood Pressure 114/57 100/53 99/48 O2 Sat by Pulse 98 97 98 Oximetry 07/18/20 07/18/20 07/18/20 03:30 04:30 04:46 Pulse Rate 134 H 134 H 142 H Respiratory 25 H 33 H 40 H Rate Blood Pressure 108/46 105/57 105/57 O2 Sat by Pulse 100 98 99 Oximetry 07/18/20 07/18/20 07/18/20 05:00 05:16 05:30 Pulse Rate 136 H 141 H 146 H Respiratory 34 H 34 H 23 Rate Blood Pressure 102/60 102/60 96/47 O2 Sat by Pulse 100 98 100 Oximetry 07/18/20 07/18/20 07/18/20 06:00 06:30 07:00 Pulse Rate 139 H 133 H 137 H Respiratory 39 H 37 H 38 H Rate Blood Pressure 96/47 115/56 104/60 O2 Sat by Pulse 98 98 98 Oximetry 07/18/20 07/18/20 07/18/20 07:30 08:00 08:30 Pulse Rate 135 H 135 H Respiratory 37 H 32 H 35 H Rate Blood Pressure 110/60 116/53 116/53 O2 Sat by Pulse 98 99 99 Oximetry 07/18/20 07/18/20 07/18/20 09:00 09:30 10:00 Pulse Rate 141 H 130 H 132 H Respiratory 42 H 41 H 41 H Rate Blood Pressure 106/52 110/69 119/68 O2 Sat by Pulse 100 99 100 Oximetry 07/18/20 07/18/20 07/18/20 10:30 11:00 11:30 Pulse Rate 137 H 139 H 149 H Respiratory 41 H 38 H 32 H Rate Blood Pressure 116/67 116/67 99/40 O2 Sat by Pulse 100 97 98 Oximetry 07/18/20 12:00 Pulse Rate 133 H Respiratory 40 H Rate Blood Pressure 109/68 O2 Sat by Pulse 98 Oximetry - Labs CBC & Chem 7: 07/18/20 04:23 07/18/20 04:23 Labs: Abnormal lab results 07/17/20 07/17/20 07/17/20 Range/Units 11:08 14:34 14:34 WBC 27.2 H (4.5-11.0) K/mm3 RBC 2.66 L (3.65-5.03) M/mm3 Hgb 9.1 L D (10.1-14.3) gm/dl Hct 27.8 L D (30.3-42.9) % MCV 104 H (79-97) fl MCH 34 H (28-32) pg RDW 22.6 H (13.2-15.2) % Lymph % (Auto) (13.4-35.0) % Eos # (Auto) (0.0-0.4) K/mm3 Seg Neutrophils % (40.0-70.0) % Seg Neutrophils # (1.8-7.7) K/mm3 PT (12.2-14.9) Sec. INR (0.87-1.13) Potassium 5.4 H (3.6-5.0) mmol/L Chloride 107.7 H (98-107) mmol/L Carbon Dioxide 16 L (22-30) mmol/L BUN 26 H (7-17) mg/dL Creatinine 2.3 H (0.6-1.2) mg/dL Glucose 151 H (65-100) mg/dL Lactic Acid (0.7-2.0) mmol/L Calcium 5.8 L* (8.4-10.2) mg/dL Total Bilirubin 3.30 H (0.1-1.2) mg/dL AST 6751 H (5-40) units/L ALT 1325 H (7-56) units/L Ammonia (25-60) umol/L Total Protein 4.4 L (6.3-8.2) g/dL Albumin 2.5 L (3.9-5) g/dL Syphilis IgG Antibody Reactive A (NonReactive) 07/17/20 07/17/20 07/17/20 Range/Units 14:34 14:34 14:34 WBC (4.5-11.0) K/mm3 RBC (3.65-5.03) M/mm3 Hgb (10.1-14.3) gm/dl Hct (30.3-42.9) % MCV (79-97) fl MCH (28-32) pg RDW (13.2-15.2) % Lymph % (Auto) (13.4-35.0) % Eos # (Auto) (0.0-0.4) K/mm3 Seg Neutrophils % (40.0-70.0) % Seg Neutrophils # (1.8-7.7) K/mm3 PT 70.6 H (12.2-14.9) Sec. INR 8.29 H* (0.87-1.13) Potassium (3.6-5.0) mmol/L Chloride (98-107) mmol/L Carbon Dioxide (22-30) mmol/L BUN (7-17) mg/dL Creatinine (0.6-1.2) mg/dL Glucose (65-100) mg/dL Lactic Acid 7.60 H* (0.7-2.0) mmol/L Calcium (8.4-10.2) mg/dL Total Bilirubin (0.1-1.2) mg/dL AST (5-40) units/L ALT (7-56) units/L Ammonia 75.0 H (25-60) umol/L Total Protein (6.3-8.2) g/dL Albumin (3.9-5) g/dL Syphilis IgG Antibody (NonReactive) 07/17/20 07/17/20 07/18/20 Range/Units 16:45 16:45 04:23 WBC 22.7 H (4.5-11.0) K/mm3 RBC 2.47 L (3.65-5.03) M/mm3 Hgb 8.5 L (10.1-14.3) gm/dl Hct 25.5 L (30.3-42.9) % MCV 103 H (79-97) fl MCH 35 H (28-32) pg RDW 21.7 H (13.2-15.2) % Lymph % (Auto) 5.3 L (13.4-35.0) % Eos # (Auto) 0.7 H (0.0-0.4) K/mm3 Seg Neutrophils % 88.2 H (40.0-70.0) % Seg Neutrophils # 20.0 H (1.8-7.7) K/mm3 PT (12.2-14.9) Sec. INR (0.87-1.13) Potassium (3.6-5.0) mmol/L Chloride 107.9 H (98-107) mmol/L Carbon Dioxide 17 L (22-30) mmol/L BUN 27 H (7-17) mg/dL Creatinine 2.5 H (0.6-1.2) mg/dL Glucose 144 H (65-100) mg/dL Lactic Acid 7.00 H* (0.7-2.0) mmol/L Calcium 6.0 L (8.4-10.2) mg/dL Total Bilirubin 3.30 H (0.1-1.2) mg/dL AST 6456 H (5-40) units/L ALT 1286 H (7-56) units/L Ammonia (25-60) umol/L Total Protein 4.2 L (6.3-8.2) g/dL Albumin 2.5 L (3.9-5) g/dL Syphilis IgG Antibody (NonReactive) 07/18/20 07/18/20 07/18/20 Range/Units 04:23 04:23 04:23 WBC (4.5-11.0) K/mm3 RBC (3.65-5.03) M/mm3 Hgb (10.1-14.3) gm/dl Hct (30.3-42.9) % MCV (79-97) fl MCH (28-32) pg RDW (13.2-15.2) % Lymph % (Auto) (13.4-35.0) % Eos # (Auto) (0.0-0.4) K/mm3 Seg Neutrophils % (40.0-70.0) % Seg Neutrophils # (1.8-7.7) K/mm3 PT 52.9 H (12.2-14.9) Sec. INR 5.78 H* (0.87-1.13) Potassium (3.6-5.0) mmol/L Chloride 110.0 H (98-107) mmol/L Carbon Dioxide 17 L (22-30) mmol/L BUN 33 H (7-17) mg/dL Creatinine 3.0 H (0.6-1.2) mg/dL Glucose 110 H (65-100) mg/dL Lactic Acid 5.40 H* (0.7-2.0) mmol/L Calcium 6.4 L (8.4-10.2) mg/dL Total Bilirubin (0.1-1.2) mg/dL AST (5-40) units/L ALT (7-56) units/L Ammonia (25-60) umol/L Total Protein (6.3-8.2) g/dL Albumin (3.9-5) g/dL Syphilis IgG Antibody (NonReactive) 07/18/20 07/18/20 Range/Units 04:23 07:25 WBC (4.5-11.0) K/mm3 RBC (3.65-5.03) M/mm3 Hgb (10.1-14.3) gm/dl Hct (30.3-42.9) % MCV (79-97) fl MCH (28-32) pg RDW (13.2-15.2) % Lymph % (Auto) (13.4-35.0) % Eos # (Auto) (0.0-0.4) K/mm3 Seg Neutrophils % (40.0-70.0) % Seg Neutrophils # (1.8-7.7) K/mm3 PT (12.2-14.9) Sec. INR (0.87-1.13) Potassium (3.6-5.0) mmol/L Chloride (98-107) mmol/L Carbon Dioxide (22-30) mmol/L BUN (7-17) mg/dL Creatinine (0.6-1.2) mg/dL Glucose (65-100) mg/dL Lactic Acid 5.50 H* (0.7-2.0) mmol/L Calcium (8.4-10.2) mg/dL Total Bilirubin (0.1-1.2) mg/dL AST (5-40) units/L ALT (7-56) units/L Ammonia 96.0 H (25-60) umol/L Total Protein (6.3-8.2) g/dL Albumin (3.9-5) g/dL Syphilis IgG Antibody (NonReactive) Medications & Allergies - Medications Allergies/Adverse Reactions: Allergies No Known Allergies Allergy (Verified 07/16/20 22:03) Home Medications: Home Medications Medication Instructions Recorded Confirmed Last Taken Type No Known Home Medications [No 07/17/20 07/17/20 Unknown History Reported Home Medications] Active Medications: Generic Name Dose Route Start Last Admin Trade Name Freq PRN Reason Stop Dose Admin Norepinephrine 4 mg in 250 mls @ 7.5 mls/hr 07/17/20 03:00 07/18/20 11:33 Levophed Drip 4 Mg/Ns 250 Ml IV 24 mcg/min TITR ESTELA 90 mls/hr Administration Protocol 2 MCG/MIN Sodium Bicarbonate 50 meq/ 1,050 mls @ 100 mls/hr 07/17/20 05:00 07/18/20 04:15 Sodium Chloride IV 100 mls/hr DIRECT ESTELA Administration Doxycycline Hyclate 100 mg/ 250 mls @ 250 mls/hr 07/17/20 11:00 07/18/20 04:30 Sodium Chloride IV 07/21/20 22:59 250 mls/hr Q12HR ESTELA Administration Protocol Acyclovir 370 mg/ Sodium 107.4 mls @ 100 mls/hr 07/17/20 12:00 07/18/20 10:09 Chloride IV Infused Q12HR ESTELA Infusion Protocol Ceftriaxone Sodium 1 gm in 50 mls @ 100 mls/hr 07/17/20 12:00 07/17/20 13:32 Rocephin/Ns 1 Gm/50 Ml IV 100 mls/hr Q24HR ESTELA Administration Protocol Thiamine HCl 100 mg/ Sodium 51 mls @ 100 mls/hr 07/18/20 10:00 07/18/20 10:19 Chloride IV 100 mls/hr QDAY ESTELA Administration Folic Acid 1 mg/ Sodium 50.2 mls @ 200.8 mls/hr 07/18/20 10:00 07/18/20 09:56 Chloride IV 200.8 mls/hr QDAY ESTELA Administration Magnesium Hydroxide 30 ml 07/17/20 03:56 Magnesium Hydroxide (Mom) Oral Liqd Udc PO Q4H PRN Constipation Morphine Sulfate 2 mg 07/17/20 03:56 07/18/20 00:00 Morphine 2 Mg/1 Ml Inj IV 2 mg Q4H PRN Administration Pain, Moderate (4-6) Ondansetron HCl 4 mg 07/17/20 03:56 07/17/20 20:24 Ondansetron 4 Mg/2 Ml Inj IV 4 mg Q8H PRN Administration Nausea And Vomiting Sodium Chloride 10 ml 07/17/20 10:00 07/17/20 11:10 Sodium Chloride 0.9% 10 Ml Flush Syringe IV 10 ml BID ESTELA Administration Sodium Chloride 10 ml 07/17/20 03:56 Sodium Chloride 0.9% 10 Ml Flush Syringe IV PRN PRN LINE FLUSH HEART Score - HEART Score Troponin: Troponin T < 0.010 ng/mL (0.00-0.029) 07/16/20 20:47
--- NOTE | 2020-07-18 14:12 | Progress Note ---
Assessment and Plan Cultures: 07/16/2020 blood culture: no growth 07/17/2020 cervix wet prep: High number of clue cells, no trichomonas or yeast seen. Syphilis IgG: Positive Hepatitis panel: Negative HIV: Negative A/P: 29/F with: #Septic shock, leukemoid reaction, lactic acidosis #Acute hepatic failure: ?Toxin/med related v/s autoimmune. Also rule out HSV induced hepatic necrosis. GI following. #Acute kidney injury: nephrology following. #Possible UTI/PID #Syphilis IgG positive, will order RPR to assess titer Recs: -Follow-up STD testing, HSV DNA PCR, HSV serology -RPR titer ordered -continue IV ceftriaxone, renally dosed acyclovir and doxycycline for now Kinjal Abebe MD, FACP [facility] O: [phone] F: [phone] Subjective Date of service: 07/18/20 Principal diagnosis: RINA Interval history: Afebrile. Remains on pressors. Lab trend showing some improvement Objective - Exam Narrative Exam: Physical Exam: Constitutional: Drowsy but can be awakened,, cooperative. No acute distress Head, Ears, Nose: Normocephalic, atraumatic. External ears, nose normal Eyes: Conjunctivae/corneas clear. No icterus. No ptosis. Neck: Supple, no meningeal signs Cardiovascular: S1, S2 normal. Respiratory: Good air entry, clear to auscultation bilaterally GI: Tender, bowel sounds hypo Musculoskeletal: No pedal edema, no cyanosis. Skin: No rash or abscess Hem/Lymphatic: No palpable cervical or supraclavicular nodes. No lymphangitis Psych: Drowsy Neurological: Drowsy, can be awakened. No gross abnormality - Constitutional Vitals: Vital Signs Temp Pulse Resp BP Pulse Ox 97.8 F 133 H 34 H 112/65 98 07/17/20 00:30 07/18/20 13:30 07/18/20 13:30 07/18/20 13:30 07/18/20 13:30 - Labs CBC & Chem 7: 07/18/20 04:23 07/18/20 04:23 Labs: Abnormal lab results 07/17/20 07/17/20 07/17/20 Range/Units 14:34 14:34 14:34 WBC 27.2 H (4.5-11.0) K/mm3 RBC 2.66 L (3.65-5.03) M/mm3 Hgb 9.1 L D (10.1-14.3) gm/dl Hct 27.8 L D (30.3-42.9) % MCV 104 H (79-97) fl MCH 34 H (28-32) pg RDW 22.6 H (13.2-15.2) % Lymph % (Auto) (13.4-35.0) % Eos # (Auto) (0.0-0.4) K/mm3 Seg Neutrophils % (40.0-70.0) % Seg Neutrophils # (1.8-7.7) K/mm3 PT (12.2-14.9) Sec. INR (0.87-1.13) Potassium 5.4 H (3.6-5.0) mmol/L Chloride 107.7 H (98-107) mmol/L Carbon Dioxide 16 L (22-30) mmol/L BUN 26 H (7-17) mg/dL Creatinine 2.3 H (0.6-1.2) mg/dL Glucose 151 H (65-100) mg/dL Lactic Acid 7.60 H* (0.7-2.0) mmol/L Calcium 5.8 L* (8.4-10.2) mg/dL Total Bilirubin 3.30 H (0.1-1.2) mg/dL AST 6751 H (5-40) units/L ALT 1325 H (7-56) units/L Ammonia (25-60) umol/L Total Protein 4.4 L (6.3-8.2) g/dL Albumin 2.5 L (3.9-5) g/dL 07/17/20 07/17/20 07/17/20 Range/Units 14:34 14:34 16:45 WBC (4.5-11.0) K/mm3 RBC (3.65-5.03) M/mm3 Hgb (10.1-14.3) gm/dl Hct (30.3-42.9) % MCV (79-97) fl MCH (28-32) pg RDW (13.2-15.2) % Lymph % (Auto) (13.4-35.0) % Eos # (Auto) (0.0-0.4) K/mm3 Seg Neutrophils % (40.0-70.0) % Seg Neutrophils # (1.8-7.7) K/mm3 PT 70.6 H (12.2-14.9) Sec. INR 8.29 H* (0.87-1.13) Potassium (3.6-5.0) mmol/L Chloride 107.9 H (98-107) mmol/L Carbon Dioxide 17 L (22-30) mmol/L BUN 27 H (7-17) mg/dL Creatinine 2.5 H (0.6-1.2) mg/dL Glucose 144 H (65-100) mg/dL Lactic Acid (0.7-2.0) mmol/L Calcium 6.0 L (8.4-10.2) mg/dL Total Bilirubin 3.30 H (0.1-1.2) mg/dL AST 6456 H (5-40) units/L ALT 1286 H (7-56) units/L Ammonia 75.0 H (25-60) umol/L Total Protein 4.2 L (6.3-8.2) g/dL Albumin 2.5 L (3.9-5) g/dL 07/17/20 07/18/20 07/18/20 Range/Units 16:45 04:23 04:23 WBC 22.7 H (4.5-11.0) K/mm3 RBC 2.47 L (3.65-5.03) M/mm3 Hgb 8.5 L (10.1-14.3) gm/dl Hct 25.5 L (30.3-42.9) % MCV 103 H (79-97) fl MCH 35 H (28-32) pg RDW 21.7 H (13.2-15.2) % Lymph % (Auto) 5.3 L (13.4-35.0) % Eos # (Auto) 0.7 H (0.0-0.4) K/mm3 Seg Neutrophils % 88.2 H (40.0-70.0) % Seg Neutrophils # 20.0 H (1.8-7.7) K/mm3 PT 52.9 H (12.2-14.9) Sec. INR 5.78 H* (0.87-1.13) Potassium (3.6-5.0) mmol/L Chloride (98-107) mmol/L Carbon Dioxide (22-30) mmol/L BUN (7-17) mg/dL Creatinine (0.6-1.2) mg/dL Glucose (65-100) mg/dL Lactic Acid 7.00 H* (0.7-2.0) mmol/L Calcium (8.4-10.2) mg/dL Total Bilirubin (0.1-1.2) mg/dL AST (5-40) units/L ALT (7-56) units/L Ammonia (25-60) umol/L Total Protein (6.3-8.2) g/dL Albumin (3.9-5) g/dL 07/18/20 07/18/20 07/18/20 Range/Units 04:23 04:23 04:23 WBC (4.5-11.0) K/mm3 RBC (3.65-5.03) M/mm3 Hgb (10.1-14.3) gm/dl Hct (30.3-42.9) % MCV (79-97) fl MCH (28-32) pg RDW (13.2-15.2) % Lymph % (Auto) (13.4-35.0) % Eos # (Auto) (0.0-0.4) K/mm3 Seg Neutrophils % (40.0-70.0) % Seg Neutrophils # (1.8-7.7) K/mm3 PT (12.2-14.9) Sec. INR (0.87-1.13) Potassium (3.6-5.0) mmol/L Chloride 110.0 H (98-107) mmol/L Carbon Dioxide 17 L (22-30) mmol/L BUN 33 H (7-17) mg/dL Creatinine 3.0 H (0.6-1.2) mg/dL Glucose 110 H (65-100) mg/dL Lactic Acid 5.40 H* (0.7-2.0) mmol/L Calcium 6.4 L (8.4-10.2) mg/dL Total Bilirubin (0.1-1.2) mg/dL AST (5-40) units/L ALT (7-56) units/L Ammonia 96.0 H (25-60) umol/L Total Protein (6.3-8.2) g/dL Albumin (3.9-5) g/dL 07/18/20 Range/Units 07:25 WBC (4.5-11.0) K/mm3 RBC (3.65-5.03) M/mm3 Hgb (10.1-14.3) gm/dl Hct (30.3-42.9) % MCV (79-97) fl MCH (28-32) pg RDW (13.2-15.2) % Lymph % (Auto) (13.4-35.0) % Eos # (Auto) (0.0-0.4) K/mm3 Seg Neutrophils % (40.0-70.0) % Seg Neutrophils # (1.8-7.7) K/mm3 PT (12.2-14.9) Sec. INR (0.87-1.13) Potassium (3.6-5.0) mmol/L Chloride (98-107) mmol/L Carbon Dioxide (22-30) mmol/L BUN (7-17) mg/dL Creatinine (0.6-1.2) mg/dL Glucose (65-100) mg/dL Lactic Acid 5.50 H* (0.7-2.0) mmol/L Calcium (8.4-10.2) mg/dL Total Bilirubin (0.1-1.2) mg/dL AST (5-40) units/L ALT (7-56) units/L Ammonia (25-60) umol/L Total Protein (6.3-8.2) g/dL Albumin (3.9-5) g/dL
--- NOTE | 2020-07-18 14:29 | Gastroenterology Progress Note ---
Assessment and Plan - Patient Problems (1) Acute liver failure Current Visit: Yes Status: Acute Plan to address problem: - Still unclear etiology (EtOH + tylenol, versus HSV; doubt acute autoimmune; acute SANCHEZ/B/CV and HIV negative. - Improved lab parameters (slow improvment, but creatinine only parameter that is worsening); glucose remains stable. - My biggest concern is waxing/waning LOC, but no signs of asterixis or seizures. - Will continue aggressive supportive care with NAD (almost finished) and ACV/abx as well as pressors/fluids/MVI therapy. - If decompensates, will revisit the issue of eval for liver transplant, but hopeful that the positive trend in labs will continue. (2) Sepsis with acute organ dysfunction Current Visit: Yes Status: Acute Plan to address problem: - Supportive care as per primary team already started. Subjective Date of service: 07/18/20 Principal diagnosis: Acute Liver Injury Interval history: The patient has had mildly improved vital signs. Her levophed has been titrated down, and she has produced >500ml of urine in the last 24 hours. Her LOC has been waxing/waning (per nursing, was talking on the phone earlier today, but now is somnolent, and rec'd morphine early today for her abdominal pain). She has had no seizures or seizure-like activity. She has no further vomiting since last night, and no fevers or chills. Objective - Constitutional Vitals: Temp Pulse Resp BP Pulse Ox 97.8 F 133 H 34 H 112/65 98 07/17/20 00:30 07/18/20 13:30 07/18/20 13:30 07/18/20 13:30 07/18/20 13:30 General appearance: mild distress - EENT Eyes: PERRL, scleral icterus ENT: hearing intact, clear oral mucosa, no thrush - Neck Neck: supple, normal ROM - Respiratory Respiratory effort: normal Respiratory: bilateral: CTA - Cardiovascular Heart Rate: 130 Rhythm: regular Heart Sounds: Present: S1 & S2 - Extremities Extremities: no ischemia, No edema - Gastrointestinal General gastrointestinal: Present: soft, tender (Diffuse but mild tenderness; no guarding), non-distended - Neurologic Neurological: oriented to person, other (No asterixis or tremors) - Labs CBC & Chem 7: 07/18/20 04:23 07/18/20 04:23 Labs: Laboratory Results - last 24 hr 07/16/20 07/17/20 07/17/20 20:47 14:34 14:34 WBC 27.2 H RBC 2.66 L Hgb 9.1 L D Hct 27.8 L D MCV 104 H MCH 34 H MCHC 33 RDW 22.6 H Plt Count 191 Lymph % (Auto) [place] % (Auto) Eos % (Auto) Baso % (Auto) Lymph # (Auto) [place] # (Auto) Eos # (Auto) Baso # (Auto) Seg Neutrophils % Seg Neutrophils # Pathologist Review WBC Morphology Not Reportable PT INR Sodium 140 Potassium 5.4 H Chloride 107.7 H Carbon Dioxide 16 L Anion Gap 22 BUN 26 H Creatinine 2.3 H Estimated GFR 31 BUN/Creatinine Ratio 11 Glucose 151 H POC Glucose Lactic Acid Calcium 5.8 L* Total Bilirubin 3.30 H AST 6751 H ALT 1325 H Alkaline Phosphatase 89 Ammonia Total Protein 4.4 L Albumin 2.5 L Albumin/Globulin Ratio 1.3 07/17/20 07/17/20 07/17/20 14:34 14:34 14:34 WBC RBC Hgb Hct MCV MCH MCHC RDW Plt Count Lymph % (Auto) [place] % (Auto) Eos % (Auto) Baso % (Auto) Lymph # (Auto) [place] # (Auto) Eos # (Auto) Baso # (Auto) Seg Neutrophils % Seg Neutrophils # Pathologist Review WBC Morphology PT 70.6 H INR 8.29 H* Sodium Potassium Chloride Carbon Dioxide Anion Gap BUN Creatinine Estimated GFR BUN/Creatinine Ratio Glucose POC Glucose Lactic Acid 7.60 H* Calcium Total Bilirubin AST ALT Alkaline Phosphatase Ammonia 75.0 H Total Protein Albumin Albumin/Globulin Ratio 07/17/20 07/17/20 07/18/20 16:45 16:45 04:23 WBC 22.7 H RBC 2.47 L Hgb 8.5 L Hct 25.5 L MCV 103 H MCH 35 H MCHC 33 RDW 21.7 H Plt Count 158 Lymph % (Auto) 5.3 L [place] % (Auto) 3.4 Eos % (Auto) 3.0 Baso % (Auto) 0.1 Lymph # (Auto) 1.2 [place] # (Auto) 0.8 Eos # (Auto) 0.7 H Baso # (Auto) 0.0 Seg Neutrophils % 88.2 H Seg Neutrophils # 20.0 H Pathologist Review WBC Morphology PT INR Sodium 141 Potassium 5.0 Chloride 107.9 H Carbon Dioxide 17 L Anion Gap 21 BUN 27 H Creatinine 2.5 H Estimated GFR 28 BUN/Creatinine Ratio 11 Glucose 144 H POC Glucose Lactic Acid 7.00 H* Calcium 6.0 L Total Bilirubin 3.30 H AST 6456 H ALT 1286 H Alkaline Phosphatase 87 Ammonia Total Protein 4.2 L Albumin 2.5 L Albumin/Globulin Ratio 1.5 07/18/20 07/18/20 07/18/20 04:23 04:23 04:23 WBC RBC Hgb Hct MCV MCH MCHC RDW Plt Count Lymph % (Auto) [place] % (Auto) Eos % (Auto) Baso % (Auto) Lymph # (Auto) [place] # (Auto) Eos # (Auto) Baso # (Auto) Seg Neutrophils % Seg Neutrophils # Pathologist Review WBC Morphology PT 52.9 H INR 5.78 H* Sodium 143 Potassium 4.6 Chloride 110.0 H Carbon Dioxide 17 L Anion Gap 21 BUN 33 H Creatinine 3.0 H Estimated GFR 22 BUN/Creatinine Ratio 11 Glucose 110 H POC Glucose Lactic Acid 5.40 H* Calcium 6.4 L Total Bilirubin AST ALT Alkaline Phosphatase Ammonia Total Protein Albumin Albumin/Globulin Ratio 07/18/20 07/18/20 07/18/20 04:23 07:25 09:37 WBC RBC Hgb Hct MCV MCH MCHC RDW Plt Count Lymph % (Auto) [place] % (Auto) Eos % (Auto) Baso % (Auto) Lymph # (Auto) [place] # (Auto) Eos # (Auto) Baso # (Auto) Seg Neutrophils % Seg Neutrophils # Pathologist Review WBC Morphology PT INR Sodium Potassium Chloride Carbon Dioxide Anion Gap BUN Creatinine Estimated GFR BUN/Creatinine Ratio Glucose POC Glucose 87 Lactic Acid 5.50 H* Calcium Total Bilirubin AST ALT Alkaline Phosphatase Ammonia 96.0 H Total Protein Albumin Albumin/Globulin Ratio 07/18/20 12:36 WBC RBC Hgb Hct MCV MCH MCHC RDW Plt Count Lymph % (Auto) [place] % (Auto) Eos % (Auto) Baso % (Auto) Lymph # (Auto) [place] # (Auto) Eos # (Auto) Baso # (Auto) Seg Neutrophils % Seg Neutrophils # Pathologist Review WBC Morphology PT INR Sodium Potassium Chloride Carbon Dioxide Anion Gap BUN Creatinine Estimated GFR BUN/Creatinine Ratio Glucose POC Glucose 90 Lactic Acid Calcium Total Bilirubin AST ALT Alkaline Phosphatase Ammonia Total Protein Albumin Albumin/Globulin Ratio
[2020-07-18] MEDS: cefTRIAXone/NS 1 GM/50 ML 1 GM/50 ML BAG IV SCH (15:41)
[2020-07-18] MEDS: ONDANSETRON 4 MG/2 ML INJ IV PRN (20:00)
[2020-07-18] MEDS: MORPHINE 2 MG/1 ML INJ IV PRN ×2 (20:00)
--- NOTE | 2020-07-18 21:28 | Progress Note ---
Assessment and Plan - Patient Problems (1) Severe sepsis with septic shock Current Visit: Yes Status: Acute Plan to address problem: Sepsis protocol, IV pressor support, IV antibiotic therapy, IV fluid resuscitation therapy, maintain mean arterial pressure greater than or equal to 65, monitor urine output every shift, serial lactic acid level The high probability of a clinically significant, sudden or life threatening deterioration of the [neuro, cardiac, renal, pulmonary] system(s) required my full and direct attention, intervention and personal management. The aggregate critical care time was [90] minutes. This time is in addition to time spent performing reported procedures but includes the following: [x] Data Review and interpretation [x] Patient assessment and monitoring of vital signs [x] Documentation [x] Medication orders and management (2) Acute liver failure Current Visit: Yes Status: Acute Plan to address problem: Supportive care, GI team consulted. Pt has poor prognosis, and currently unstable for transfer. (3) Metabolic acidosis Current Visit: Yes Status: Acute Plan to address problem: BMP, IV bicarbonate therapy, repeat BMP (4) UTI (urinary tract infection) Current Visit: Yes Status: Acute Qualifiers: Encounter type: initial encounter Plan to address problem: IV antibiotic therapy, supportive care. (5) DVT prophylaxis Current Visit: Yes Status: Acute Plan to address problem: SCD to bilateral lower extremities while in bed (6) Acute kidney injury (RINA) with acute tubular necrosis (ATN) Current Visit: Yes Status: Acute Plan to address problem: Nephrology team consulted, IV fluid resuscitation therapy, monitor urine output every shift, monitor fluid balance, supportive care. (7) Toxic metabolic encephalopathy Current Visit: Yes Status: Acute Plan to address problem: CT scan head, when medically stable, supportive care, continue medical management. Suspect anoxic brain injury. (8) Advance care planning Current Visit: Yes Status: Acute Plan to address problem: Disease education conducted, patient is full code, patient prognosis discussed, patient family acknowledges prognosis. Pending family care meeting in a.m. 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 Patient is critically ill and has very poor prognosis. No significant improvement in patie nt status overnight. Patient experienced a brief lucid interval earlier today but is lethargic/stuporous at the time of my exam. Patient laboratory values have improved without concomitant improvement in patient overall status. Hospitalist Physical - Constitutional Vitals: Temp Pulse Resp BP Pulse Ox 97.8 F 145 H 47 H 114/67 98 07/17/20 00:30 07/18/20 19:00 07/18/20 19:00 07/18/20 19:00 07/18/20 19:00 General appearance: Present: severe distress, other (Lethargic not quite enc ephalopathic alert appears to be tired. Patient states she is just fatigued.) - EENT Eyes: Present: PERRL ENT: hearing decreased - Respiratory Respiratory effort: labored Respiratory: bilateral: diminished - Cardiovascular Rhythm: other (Tachycardia) - Extremities Extremities: no ischemia Extremity abnormal: edema Peripheral Pulses: abnormal - Abdominal General gastrointestinal: soft, non-tender, distended, normal bowel sounds, other (Protuberant) - Integumentary Integumentary: Present: clear, dry - Psychiatric Psychiatric: no appropriate mood/affect, no intact judgment & insight, no memory intact - Neurologic Neurologic: CNII-XII intact, no focal deficits, moves all extremities, no gait normal HEART Score - HEART Score Troponin: Troponin T < 0.010 ng/mL (0.00-0.029) 07/16/20 20:47 Results - Labs CBC & Chem 7: 07/19/20 Unknown 07/19/20 Unknown Labs: Laboratory Last Values WBC 22.7 K/mm3 (4.5-11.0) H 07/18/20 04:23 RBC 2.47 M/mm3 (3.65-5.03) L 07/18/20 04:23 Hgb 8.5 gm/dl (10.1-14.3) L 07/18/20 04:23 Hct 25.5 % (30.3-42.9) L 07/18/20 04:23 MCV 103 fl (79-97) H 07/18/20 04:23 MCH 35 pg (28-32) H 07/18/20 04:23 MCHC 33 % (30-34) 07/18/20 04:23 RDW 21.7 % (13.2-15.2) H 07/18/20 04:23 Plt Count 158 K/mm3 (140-440) 07/18/20 04:23 Lymph % (Auto) 5.3 % (13.4-35.0) L 07/18/20 04:23 Hayes % (Auto) 3.4 % (0.0-7.3) 07/18/20 04:23 Eos % (Auto) 3.0 % (0.0-4.3) 07/18/20 04:23 Baso % (Auto) 0.1 % (0.0-1.8) 07/18/20 04:23 Lymph # (Auto) 1.2 K/mm3 (1.2-5.4) 07/18/20 04:23 Hayes # (Auto) 0.8 K/mm3 (0.0-0.8) 07/18/20 04:23 Eos # (Auto) 0.7 K/mm3 (0.0-0.4) H 07/18/20 04:23 Baso # (Auto) 0.0 K/mm3 (0.0-0.1) 07/18/20 04:23 Add Manual Diff Complete 07/16/20 20:47 Total Counted 100 07/16/20 20:47 Seg Neutrophils % 88.2 % (40.0-70.0) H 07/18/20 04:23 Seg Neuts % (Manual) 89.0 % (40.0-70.0) H 07/16/20 20:47 Band Neutrophils % 5.0 % 07/16/20 20:47 Lymphocytes % (Manual) 2.0 % (13.4-35.0) L 07/16/20 20:47 Monocytes % (Manual) 4.0 % (0.0-7.3) 07/16/20 20:47 Nucleated RBC % 1.0 % (0.0-0.9) H 07/16/20 20:47 Seg Neutrophils # 20.0 K/mm3 (1.8-7.7) H 07/18/20 04:23 Seg Neutrophils # Man 30.2 K/mm3 (1.8-7.7) H 07/16/20 20:47 Band Neutrophils # 1.7 K/mm3 07/16/20 20:47 Lymphocytes # (Manual) 0.7 K/mm3 (1.2-5.4) L 07/16/20 20:47 Abs React Lymphs (Man) 0.0 K/mm3 07/16/20 20:47 Monocytes # (Manual) 1.4 K/mm3 (0.0-0.8) H 07/16/20 20:47 Eosinophils # (Manual) 0.0 K/mm3 (0.0-0.4) 07/16/20 20:47 Basophils # (Manual) 0.0 K/mm3 (0.0-0.1) 07/16/20 20:47 Metamyelocytes # 0.0 K/mm3 07/16/20 20:47 Myelocytes # 0.0 K/mm3 07/16/20 20:47 Promyelocytes # 0.0 K/mm3 07/16/20 20:47 Blast Cells # 0.0 K/mm3 07/16/20 20:47 Pathologist Review 07/16/20 20:47 WBC Morphology Not Reportable 07/16/20 20:47 Hypersegmented Neuts Not Reportable 07/16/20 20:47 Hyposegmented Neuts Not Reportable 07/16/20 20:47 Hypogranular Neuts Not Reportable 07/16/20 20:47 Smudge Cells Not Reportable 07/16/20 20:47 Toxic Granulation Not Reportable 07/16/20 20:47 Toxic Vacuolation Not Reportable 07/16/20 20:47 Dohle Bodies Not Reportable 07/16/20 20:47 Pelger-Huet Anomaly Not Reportable 07/16/20 20:47 Fede Rods Not Reportable 07/16/20 20:47 Platelet Estimate Consistent w auto 07/16/20 20:47 Clumped Platelets Not Reportable 07/16/20 20:47 Plt Clumps, EDTA Not Reportable 07/16/20 20:47 Large Platelets Rare 07/16/20 20:47 Giant Platelets Not Reportable 07/16/20 20:47 Platelet Satelliting Not Reportable 07/16/20 20:47 Plt Morphology Comment Not Reportable 07/16/20 20:47 RBC Morphology Not Reportable 07/16/20 20:47 Dimorphic RBCs Not Reportable 07/16/20 20:47 Polychromasia Not Reportable 07/16/20 20:47 Hypochromasia Not Reportable 07/16/20 20:47 Poikilocytosis Not Reportable 07/16/20 20:47 Anisocytosis 1+ 07/16/20 20:47 Microcytosis Not Reportable 07/16/20 20:47 Macrocytosis Not Reportable 07/16/20 20:47 Spherocytes Not Reportable 07/16/20 20:47 Pappenheimer Bodies Not Reportable 07/16/20 20:47 Sickle Cells Not Reportable 07/16/20 20:47 Target Cells Not Reportable 07/16/20 20:47 Tear Drop Cells Not Reportable 07/16/20 20:47 Ovalocytes Not Reportable 07/16/20 20:47 Helmet Cells Not Reportable 07/16/20 20:47 Donaldson-[place] Bodies Not Reportable 07/16/20 20:47 [place] Rings Not Reportable 07/16/20 20:47 Shashank Cells Not Reportable 07/16/20 20:47 Bite Cells Not Reportable 07/16/20 20:47 Crenated Cell Not Reportable 07/16/20 20:47 Elliptocytes Not Reportable 07/16/20 20:47 Acanthocytes (Spur) Not Reportable 07/16/20 20:47 Rouleaux Not Reportable 07/16/20 20:47 Hemoglobin C Crystals Not Reportable 07/16/20 20:47 Schistocytes Not Reportable 07/16/20 20:47 Malaria parasites Not Reportable 07/16/20 20:47 Richard Bodies Not Reportable 07/16/20 20:47 Hem Pathologist Commnt Sent to pathology 07/16/20 20:47 PT 52.9 Sec. (12.2-14.9) H 07/18/20 04:23 INR 5.78 (0.87-1.13) H* 07/18/20 04:23 VBG pH 7.085 (7.320-7.420) L* 07/17/20 01:46 Sodium 143 mmol/L (137-145) 07/18/20 04:23 Potassium 4.6 mmol/L (3.6-5.0) 07/18/20 04:23 Chloride 110.0 mmol/L (98-107) H 07/18/20 04:23 Carbon Dioxide 17 mmol/L (22-30) L 07/18/20 04:23 Anion Gap 21 mmol/L 07/18/20 04:23 BUN 33 mg/dL (7-17) H 07/18/20 04:23 Creatinine 3.0 mg/dL (0.6-1.2) H 07/18/20 04:23 Estimated GFR 22 ml/min 07/18/20 04:23 BUN/Creatinine Ratio 11 % 07/18/20 04:23 Glucose 110 mg/dL (65-100) H 07/18/20 04:23 POC Glucose 90 mg/dL (70-105) 07/18/20 12:36 Lactic Acid 5.50 mmol/L (0.7-2.0) H* 07/18/20 07:25 Calcium 6.4 mg/dL (8.4-10.2) L 07/18/20 04:23 Magnesium 2.10 mg/dL (1.7-2.3) 07/16/20 20:47 Total Bilirubin 3.30 mg/dL (0.1-1.2) H 07/17/20 16:45 AST 6456 units/L (5-40) H 07/17/20 16:45 ALT 1286 units/L (7-56) H 07/17/20 16:45 Alkaline Phosphatase 87 units/L (35-129) 07/17/20 16:45 Ammonia 96.0 umol/L (25-60) H 07/18/20 04:23 Total Creatine Kinase 332 units/L (30-135) H 07/17/20 09:23 Troponin T < 0.010 ng/mL (0.00-0.029) 07/16/20 20:47 Total Protein 4.2 g/dL (6.3-8.2) L 07/17/20 16:45 Albumin 2.5 g/dL (3.9-5) L 07/17/20 16:45 Albumin/Globulin Ratio 1.5 % 07/17/20 16:45 Lipase 14 units/L (13-60) 07/17/20 01:46 TSH 0.354 mlU/mL (0.270-4.200) 07/16/20 20:47 HCG, Qual Negative (Negative) 07/16/20 20:47 Urine Color Red (Yellow) 07/16/20 03:54 Urine Turbidity Turbid (Clear) 07/16/20 03:54 Urine pH 5.0 (5.0-7.0) 07/16/20 03:54 Ur Specific [place] 1.013 (1.003-1.030) 07/16/20 03:54 Urine Protein >500 mg/dL (Negative) 07/16/20 03:54 Urine Glucose (UA) Neg mg/dL (Negative) 07/16/20 03:54 Urine Ketones Tr mg/dL (Negative) 07/16/20 03:54 Urine Blood Lg (Negative) 07/16/20 03:54 Urine Nitrite Neg (Negative) 07/16/20 03:54 Urine Bilirubin Neg (Negative) 07/16/20 03:54 Urine Urobilinogen < 2.0 mg/dL (<2.0) 07/16/20 03:54 Ur Leukocyte Esterase Sm (Negative) 07/16/20 03:54 Urine WBC (Auto) 57.0 /HPF (0.0-6.0) H 07/16/20 03:54 Urine RBC (Auto) 35.0 /HPF (0.0-6.0) 07/16/20 03:54 U Epithel Cells (Auto) 23.0 /HPF (0-13.0) H 07/16/20 03:54 Urine Bacteria (Auto) 1+ /HPF (Negative) 07/16/20 03:54 Urine WBC Clumps 3+ /HPF 07/16/20 03:54 Urine Mucus Few /HPF 07/16/20 03:54 Acetaminophen 5.0 ug/mL (10.0-30.0) L 07/17/20 09:23 Syphilis IgG Antibody Reactive (NonReactive) A 07/17/20 11:08 RPR Titer Nr 07/17/20 11:08 Hepatitis A IgM Ab Non-reactive (NonReactive) 07/17/20 11:08 Hep Bs Antigen Non-reactive (Negative) 07/17/20 11:08 Hep B Core IgM Ab Non-reactive (NonReactive) 07/17/20 11:08 Hepatitis C Antibody Non-reactive (NonReactive) 07/17/20 11:08 HIV 1&2 Antibody Rapid Non react (Non React) 07/17/20 11:08 HIV P24 Antigen Non react (Non React) 07/17/20 11:08 Microbiology: Microbiology 07/16/20 23:00 Peripheral/Venous Blood Culture - Preliminary NO GROWTH AFTER 24 HOURS 07/16/20 23:06 Peripheral/Venous Blood Culture - Preliminary NO GROWTH AFTER 24 HOURS [place]/IV: IV Catheter Type [Right Hand] INT / Saline Lock IV Catheter Type [Left Hand] INT / Saline Lock IV Catheter Type [Acetadote ( Peripheral IV Acetylcysteine IV) 7,500 mg In D5w 1,000 ml @ 62.5 mls/hr IV ONCE ONE Rx#:[id number]] IV Catheter Type [Sodium Triple Lumen Cath Bicarbonate 50 Meq In NaCl 0.9 % 1000 ml 1,000 ml @ 100 mls/ hr IV DIRECT ESTELA Rx#: [id number]] Active Medications - Current Medications Current Medications: Generic Name Dose Route Start Last Admin Trade Name Freq PRN Reason Stop Dose Admin Norepinephrine 4 mg in 250 mls @ 7.5 mls/hr 07/17/20 03:00 07/18/20 19:30 Levophed Drip 4 Mg/Ns 250 Ml IV 14 mcg/min TITR ESTELA 52.5 mls/hr Administration Protocol 2 MCG/MIN Sodium Bicarbonate 50 meq/ 1,050 mls @ 100 mls/hr 07/17/20 05:00 07/18/20 04:15 Sodium Chloride IV 100 mls/hr DIRECT ESTELA Administration Doxycycline Hyclate 100 mg/ 250 mls @ 250 mls/hr 07/17/20 11:00 07/18/20 13:43 Sodium Chloride IV 07/21/20 22:59 250 mls/hr Q12HR ESTELA Administration Protocol Acyclovir 370 mg/ Sodium 107.4 mls @ 100 mls/hr 07/17/20 12:00 07/18/20 10:09 Chloride IV Infused Q12HR ESTELA Infusion Protocol Ceftriaxone Sodium 1 gm in 50 mls @ 100 mls/hr 07/17/20 12:00 07/18/20 15:41 Rocephin/Ns 1 Gm/50 Ml IV 100 mls/hr Q24HR ESTELA Administration Protocol Thiamine HCl 100 mg/ Sodium 51 mls @ 100 mls/hr 07/18/20 10:00 07/18/20 10:19 Chloride IV 100 mls/hr QDAY ESTELA Administration Folic Acid 1 mg/ Sodium 50.2 mls @ 200.8 mls/hr 07/18/20 10:00 07/18/20 09:56 Chloride IV 200.8 mls/hr QDAY ESTELA Administration Magnesium Hydroxide 30 ml 07/17/20 03:56 Magnesium Hydroxide (Mom) Oral Liqd Udc PO Q4H PRN Constipation Morphine Sulfate 2 mg 07/17/20 03:56 07/18/20 20:00 Morphine 2 Mg/1 Ml Inj IV 2 mg Q4H PRN Administration Pain, Moderate (4-6) Ondansetron HCl 4 mg 07/17/20 03:56 07/18/20 20:00 Ondansetron 4 Mg/2 Ml Inj IV 4 mg Q8H PRN Administration Nausea And Vomiting Sodium Chloride 10 ml 07/17/20 10:00 07/18/20 20:00 Sodium Chloride 0.9% 10 Ml Flush Syringe IV 10 ml BID ESTELA Administration Sodium Chloride 10 ml 07/17/20 03:56 Sodium Chloride 0.9% 10 Ml Flush Syringe IV PRN PRN LINE FLUSH
[2020-07-18 22:23] LABS: INR 3.73 (0.87-1.13)
[2020-07-18 22:32] LABS: Albumin 2.5 g/dL (3.9-5)
[2020-07-19] MEDS: NORepinephrine/NS 4 MG-250 ML 4 MG/250 ML BAG IV SCH ×2 (00:16→03:00)
[2020-07-19] MEDS: DOXYCYCLINE HYCLATE 100 MG in SODIUM CHLORIDE 0.9% 250ML 250 ML IV SCH ×4 (01:45→10:22)
--- NOTE | 2020-07-19 02:15 | XRay Report ---
CHEST 1 VIEW INDICATION: tachypnea, tachycardia. COMPARISON: 2 days prior FINDINGS: SUPPORT DEVICES: None. HEART: Within normal limits. LUNGS/PLEURA: New patchy multifocal airspace disease throughout the lungs with small to moderate bila teral pleural effusions. ADDITIONAL FINDINGS: None. IMPRESSION: 1. Pulmonary findings as outlined above. Given the short time interval of development of these findin gs, interstitial/alveolar edema would be the primary consideration. Signer Name: Saul Hughes MD Signed: 07/19/2020 2:11 AM Workstation Name: [id number]
[2020-07-19] MEDS: SODIUM CHLORIDE 0.9% IV SCH ×2 (03:28→10:15)
[2020-07-19] MEDS: ACYCLOVIR IV SCH ×2 (03:28→10:15)
[2020-07-19 03:31] LABS: Hematocrit 26.1 % (30.3-42.9); Hemoglobin 8.5 gm/dl (10.1-14.3); Mean Corpuscular HGB Conc 33 % (30-34); Mean Corpuscular Volume 104 fl (79-97); Platelet Count 140 K/mm3 (140-440)
[2020-07-19 03:35] LABS: Red Cell Distribution Width 22.3 % (13.2-15.2)
[2020-07-19 03:36] LABS: Basophils % (Auto) 0.1 % (0.0-1.8); Eosinophils # (Auto) 0.1 K/mm3 (0.0-0.4); Eosinophils % (Auto) 0.6 % (0.0-4.3); Lymphocytes # (Auto) 0.7 K/mm3 (1.2-5.4); Lymphocytes % (Auto) 3.7 % (13.4-35.0); Monocytes # (Auto) 0.9 K/mm3 (0.0-0.8); Monocytes % (Auto) 4.7 % (0.0-7.3)
[2020-07-19 03:44] LABS: INR 3.45 (0.87-1.13)
[2020-07-19 03:52] LABS: Albumin 2.4 g/dL (3.9-5); Calcium 7.4 mg/dL (8.4-10.2)
[2020-07-19] MEDS ORDERED: SODIUM CHLORIDE 0.9% 1000 ML 1,000 ML ONE ×4 (05:19→13:30)
[2020-07-19] MEDS ORDERED: DEXTROSE 50% IN WATER (25GM) 50 ML SYRINGE IV ONE ×3 (05:30→22:03)
[2020-07-19] MEDS ORDERED: DOPamine/D5W 800 MG/250 ML 800 MG/250 ML BAG IV SCH (05:45)
[2020-07-19] MEDS: DEXTROSE 10% IN WATER 1,000 ML IV SCH (05:54)
[2020-07-19] MEDS ORDERED: PANTOPRAZOLE 80 MG in SODIUM CHLORIDE 0.9% 100 ML IV SCH (06:00)
--- NOTE | 2020-07-19 06:21 | Event Note ---
Date: 07/19/20 CODE EMELY called on patient was been on admission for severe sepsis with septic shock, hepatic failure who has suddenly become hypotensive and subsequently lost her pulse. CPR was commenced according to ACLS protocol. There was spontaneous return of circulation. Patient has been on Levophed and subsequently placed on dopamine. Accu-Cheks was done and blood glucose was 43. She was given an amp of D50 and placed on D10 IV fluid continuous. Patient was intubated by the ER physician. She was noticed to be having coffee-ground emesis. NG tube has been placed. Patient also started on Protonix drip. We will check labs stat-including PT/INR, CBC, chemistry, lactic acid, and we also type and screen. Family members including mother who is the next of kin were also in the emergency room were immediately notified of the change in condition. We will sign off to incoming hospitalist for follow-up. Medication Manager and history department chair are currently following however they will be promptly updated. PROGNOSIS - VERY GUARDED
[2020-07-19 06:36] LABS: Hemoglobin 6.2 gm/dl (10.1-14.3); Mean Corpuscular HGB Conc 32 % (30-34); Mean Corpuscular Volume 109 fl (79-97)
[2020-07-19 06:38] LABS: Platelet Count 99 K/mm3 (140-440); Red Cell Distribution Width 22.7 % (13.2-15.2)
[2020-07-19] MEDS ORDERED: SODIUM BICARB 8.4% 50 MEQ/50 ML SYRINGE IV ONE (06:40)
[2020-07-19 06:41] LABS: Eosinophils # (Auto) 0.1 K/mm3 (0.0-0.4); Eosinophils % (Auto) 0.8 % (0.0-4.3); Lymphocytes # (Auto) 1.5 K/mm3 (1.2-5.4); Lymphocytes % (Auto) 9.7 % (13.4-35.0); Monocytes # (Auto) 1.3 K/mm3 (0.0-0.8); Monocytes % (Auto) 8.3 % (0.0-7.3)
[2020-07-19 06:43] LABS: Hematocrit 19.7 % (30.3-42.9)
[2020-07-19] MEDS ORDERED: SODIUM CHLORIDE 0.9% 500 ML 500 ML IV ONE (06:48)
[2020-07-19 06:54] LABS: Albumin 1.6 g/dL (3.9-5); Calcium 6.8 mg/dL (8.4-10.2)
[2020-07-19] MEDS ORDERED: SODIUM BICARBONATE 50 MEQ in SODIUM CHLORIDE 0.9% 1000 ML 1,000 ML IV SCH (07:00)
[2020-07-19 07:01] LABS: INR 5.63 (0.87-1.13)
--- NOTE | 2020-07-19 07:09 | XRay Report ---
CHEST 1 VIEW KUB INDICATION: confirm ET tube placement and og tube placement.. COMPARISON: Earlier today FINDINGS: SUPPORT DEVICES: Endotracheal tube tip is at the level the clavicles and NG tube tip is in the mid st omach, both in satisfactory position. A right femoral line terminates near the level of the SI joint. HEART: Within normal limits. LUNGS/PLEURA: Moderate patchy multifocal airspace disease is present once again with small layering e ffusions. ADDITIONAL FINDINGS: None. IMPRESSION: 1. Support devices as above. 2. Otherwise unchanged exam. Signer Name: Saul Hughes MD Signed: 07/19/2020 7:04 AM Workstation Name: [id number]
[2020-07-19] MEDS: SODIUM BICARBONATE 50 MEQ in SODIUM CHLORIDE 0.9% 1000 ML 1,000 ML IV SCH (08:27)
--- NOTE | 2020-07-19 09:37 | Gastroenterology Progress Note ---
Assessment and Plan - Patient Problems (1) Acute liver failure Current Visit: Yes Status: Acute Plan to address problem: - Still unclear etiology (EtOH + tylenol, versus HSV; doubt acute autoimmune given presentation; acute SANCHEZ/B/CV and HIV negative. - Improved lab parameters (slow improvment, but creatinine only parameter that is worsening) until time of code this AM. - Patient has completed NAC, is on broad-spectrum abx, and acyclovir. - I have rediscussed with [facility] this AM, in light of events of this AM. They have requested scan of head, and abd/body to assess for bleeding, as well as lungs to check for severe aspiration. - For now, will continue aggressive care. Will change Accucheck to every 2 hours from every 4. (2) Sepsis with acute organ dysfunction Current Visit: Yes Status: Acute Plan to address problem: - Supportive care as per primary team already started; See ID notes. Subjective Date of service: 07/19/20 Principal diagnosis: Acute Liver Injury Interval history: The patient was stable until about 6 this morning, when a code blue was called for loss of bradycardia/apnea. Per the Nurses notes, her breathing had been difficult overnight, with consideration of intubation, but an ABG was acceptable. Her AM labs continued to show improvement in liver function, though still critically ill, and glucose was 72 (reported at code as 42, but had been stable on previous lab draws). After intubation/ACLS, her labs were repeated, and there has been worsening acidosis, and renal function, with stable transaminases, but a drop in hct and increase in INR. She remains on 2 pressors. Objective - Constitutional Vitals: Temp Pulse Resp BP Pulse Ox 101.0 F H 169 H 25 H 110/53 98 07/18/20 02:20 07/19/20 08:45 07/19/20 07:52 07/19/20 08:45 07/19/20 08:45 General appearance: other (Intubated) - EENT Eyes: PERRL, scleral icterus - Respiratory Respiratory effort: normal Respiratory: bilateral: CTA - Cardiovascular Heart Rate: 150 Rhythm: regular Heart Sounds: Present: S1 & S2 - Gastrointestinal General gastrointestinal: Present: soft, distended (Minimal distention without peritoneal signs) - Labs CBC & Chem 7: 07/19/20 05:41 07/19/20 05:41 Labs: Laboratory Results - last 24 hr 07/17/20 07/18/20 07/18/20 11:08 09:37 12:36 WBC RBC Hgb Hct MCV MCH MCHC RDW Plt Count Lymph % (Auto) [place] % (Auto) Eos % (Auto) Baso % (Auto) Lymph # (Auto) [place] # (Auto) Eos # (Auto) Baso # (Auto) Seg Neutrophils % Seg Neutrophils # PT INR ABG pH POC ABG pCO2 POC ABG pO2 POC ABG HCO3 POC ABG Base Excess ABG Hemoglobin ABG Oxyhemoglobin ABG Methemoglobin ABG Sodium ABG Potassium ABG Chloride ABG Glucose Carboxyhemoglobin FiO2 Sodium Potassium Chloride Carbon Dioxide Anion Gap BUN Creatinine Estimated GFR BUN/Creatinine Ratio Glucose POC Glucose 87 90 Lactic Acid Calcium Total Bilirubin Direct Bilirubin Indirect Bilirubin AST ALT Alkaline Phosphatase Ammonia Total Protein Albumin Albumin/Globulin Ratio Arterial Blood Glucose Arterial Blood Ionized Calcium RPR Titer Nr Blood Type Antibody Screen Crossmatch 07/18/20 07/18/20 07/18/20 Unknown Unknown Unknown WBC RBC Hgb Hct MCV MCH MCHC RDW Plt Count Lymph % (Auto) [place] % (Auto) Eos % (Auto) Baso % (Auto) Lymph # (Auto) [place] # (Auto) Eos # (Auto) Baso # (Auto) Seg Neutrophils % Seg Neutrophils # PT 37.3 H INR 3.73 H ABG pH POC ABG pCO2 POC ABG pO2 POC ABG HCO3 POC ABG Base Excess ABG Hemoglobin ABG Oxyhemoglobin ABG Methemoglobin ABG Sodium ABG Potassium ABG Chloride ABG Glucose Carboxyhemoglobin FiO2 Sodium Potassium Chloride Carbon Dioxide Anion Gap BUN Creatinine Estimated GFR BUN/Creatinine Ratio Glucose POC Glucose Lactic Acid 4.80 H* Calcium Total Bilirubin 3.70 H Direct Bilirubin 3.0 H Indirect Bilirubin 0.7 AST 2093 H ALT 822 H Alkaline Phosphatase 107 Ammonia Total Protein 4.0 L Albumin 2.5 L Albumin/Globulin Ratio 1.7 Arterial Blood Glucose Arterial Blood Ionized Calcium RPR Titer Blood Type Antibody Screen Crossmatch 07/19/20 07/19/20 07/19/20 02:47 03:01 03:01 WBC 19.4 H RBC 2.50 L Hgb 8.5 L Hct 26.1 L MCV 104 H MCH 34 H MCHC 33 RDW 22.3 H Plt Count 140 Lymph % (Auto) 3.7 L [place] % (Auto) 4.7 Eos % (Auto) 0.6 Baso % (Auto) 0.1 Lymph # (Auto) 0.7 L [place] # (Auto) 0.9 H Eos # (Auto) 0.1 Baso # (Auto) 0.0 Seg Neutrophils % Mathematics Education Professor Seg Neutrophils # 17.7 H PT INR ABG pH 7.418 POC ABG pCO2 21.1 L POC ABG pO2 61.7 L POC ABG HCO3 13.3 POC ABG Base Excess -9.8 ABG Hemoglobin 8.5 L ABG Oxyhemoglobin 88.1 L ABG Methemoglobin 0.3 ABG Sodium 143.6 ABG Potassium 3.4 ABG Chloride 119.0 H ABG Glucose 70 Carboxyhemoglobin 1.3 FiO2 28 Sodium Potassium Chloride Carbon Dioxide Anion Gap BUN Creatinine Estimated GFR BUN/Creatinine Ratio Glucose POC Glucose Lactic Acid 5.90 H* Calcium Total Bilirubin Direct Bilirubin Indirect Bilirubin AST ALT Alkaline Phosphatase Ammonia Total Protein Albumin Albumin/Globulin Ratio Arterial Blood Glucose 70 Arterial Blood Ionized Calcium 4.0 L RPR Titer Blood Type Antibody Screen Crossmatch 07/19/20 07/19/20 07/19/20 03:01 03:01 03:01 WBC RBC Hgb Hct MCV MCH MCHC RDW Plt Count Lymph % (Auto) [place] % (Auto) Eos % (Auto) Baso % (Auto) Lymph # (Auto) [place] # (Auto) Eos # (Auto) Baso # (Auto) Seg Neutrophils % Seg Neutrophils # PT 35.0 H INR 3.45 H ABG pH POC ABG pCO2 POC ABG pO2 POC ABG HCO3 POC ABG Base Excess ABG Hemoglobin ABG Oxyhemoglobin ABG Methemoglobin ABG Sodium ABG Potassium ABG Chloride ABG Glucose Carboxyhemoglobin FiO2 Sodium 149 H Potassium 3.7 Chloride 116.6 H Carbon Dioxide 14 L Anion Gap 22 BUN 48 H Creatinine 2.5 H Estimated GFR 28 BUN/Creatinine Ratio 19 Glucose 72 POC Glucose Lactic Acid Calcium 7.4 L D Total Bilirubin 3.70 H Direct Bilirubin Indirect Bilirubin AST 1730 H ALT 751 H Alkaline Phosphatase 116 Ammonia 126.0 H Total Protein 4.3 L Albumin 2.4 L Albumin/Globulin Ratio 1.3 Arterial Blood Glucose Arterial Blood Ionized Calcium RPR Titer Blood Type Antibody Screen Crossmatch 07/19/20 07/19/20 07/19/20 05:25 05:41 05:41 WBC 15.9 H RBC 1.80 L Hgb 6.2 L Hct 19.7 L* D MCV 109 H MCH 35 H MCHC 32 RDW 22.7 H Plt Count 99 L Lymph % (Auto) 9.7 L [place] % (Auto) 8.3 H Eos % (Auto) 0.8 Baso % (Auto) 0.0 Lymph # (Auto) 1.5 [place] # (Auto) 1.3 H Eos # (Auto) 0.1 Baso # (Auto) 0.0 Seg Neutrophils % 81.2 H Seg Neutrophils # 12.9 H PT 51.8 H INR 5.63 H* ABG pH POC ABG pCO2 POC ABG pO2 POC ABG HCO3 POC ABG Base Excess ABG Hemoglobin ABG Oxyhemoglobin ABG Methemoglobin ABG Sodium ABG Potassium ABG Chloride ABG Glucose Carboxyhemoglobin FiO2 Sodium Potassium Chloride Carbon Dioxide Anion Gap BUN Creatinine Estimated GFR BUN/Creatinine Ratio Glucose POC Glucose 43 L Lactic Acid Calcium Total Bilirubin Direct Bilirubin Indirect Bilirubin AST ALT Alkaline Phosphatase Ammonia Total Protein Albumin Albumin/Globulin Ratio Arterial Blood Glucose Arterial Blood Ionized Calcium RPR Titer Blood Type Antibody Screen Crossmatch 07/19/20 07/19/20 07/19/20 05:41 05:41 05:41 WBC RBC Hgb Hct MCV MCH MCHC RDW Plt Count Lymph % (Auto) [place] % (Auto) Eos % (Auto) Baso % (Auto) Lymph # (Auto) [place] # (Auto) Eos # (Auto) Baso # (Auto) Seg Neutrophils % Seg Neutrophils # PT INR ABG pH POC ABG pCO2 POC ABG pO2 POC ABG HCO3 POC ABG Base Excess ABG Hemoglobin ABG Oxyhemoglobin ABG Methemoglobin ABG Sodium ABG Potassium ABG Chloride ABG Glucose Carboxyhemoglobin FiO2 Sodium 150 H Potassium 3.6 Chloride 117.6 H Carbon Dioxide 10 L Anion Gap 26 BUN 50 H Creatinine 2.8 H Estimated GFR 24 BUN/Creatinine Ratio 18 Glucose 308 H POC Glucose Lactic Acid 12.00 H* Calcium 6.8 L Total Bilirubin 2.20 H Direct Bilirubin Indirect Bilirubin AST 1224 H ALT 484 H Alkaline Phosphatase 84 Ammonia 96.0 H Total Protein 2.8 L D Albumin 1.6 L Albumin/Globulin Ratio 1.3 Arterial Blood Glucose Arterial Blood Ionized Calcium RPR Titer Blood Type Antibody Screen Crossmatch 07/19/20 07/19/20 07/19/20 05:53 06:14 07:35 WBC RBC Hgb Hct MCV MCH MCHC RDW Plt Count Lymph % (Auto) [place] % (Auto) Eos % (Auto) Baso % (Auto) Lymph # (Auto) [place] # (Auto) Eos # (Auto) Baso # (Auto) Seg Neutrophils % Seg Neutrophils # PT INR ABG pH 6.904 L POC ABG pCO2 50.8 H POC ABG pO2 140.1 H POC ABG HCO3 9.8 POC ABG Base Excess -21.7 ABG Hemoglobin 7.9 L ABG Oxyhemoglobin 94.5 ABG Methemoglobin 0.1 ABG Sodium 144.2 ABG Potassium 3.4 ABG Chloride 120.0 H ABG Glucose 220 H Carboxyhemoglobin 1.7 H FiO2 100 Sodium Potassium Chloride Carbon Dioxide Anion Gap BUN Creatinine Estimated GFR BUN/Creatinine Ratio Glucose POC Glucose 186 H Lactic Acid Calcium Total Bilirubin Direct Bilirubin Indirect Bilirubin AST ALT Alkaline Phosphatase Ammonia Total Protein Albumin Albumin/Globulin Ratio Arterial Blood Glucose 220 H Arterial Blood Ionized Calcium 4.1 L RPR Titer Blood Type O POSITIVE Antibody Screen Negative Crossmatch See Detail 07/19/20 07:35 WBC RBC Hgb Hct MCV MCH MCHC RDW Plt Count Lymph % (Auto) [place] % (Auto) Eos % (Auto) Baso % (Auto) Lymph # (Auto) [place] # (Auto) Eos # (Auto) Baso # (Auto) Seg Neutrophils % Seg Neutrophils # PT INR ABG pH POC ABG pCO2 POC ABG pO2 POC ABG HCO3 POC ABG Base Excess ABG Hemoglobin ABG Oxyhemoglobin ABG Methemoglobin ABG Sodium ABG Potassium ABG Chloride ABG Glucose Carboxyhemoglobin FiO2 Sodium Potassium Chloride Carbon Dioxide Anion Gap BUN Creatinine Estimated GFR BUN/Creatinine Ratio Glucose POC Glucose Lactic Acid 8.50 H* Calcium Total Bilirubin Direct Bilirubin Indirect Bilirubin AST ALT Alkaline Phosphatase Ammonia Total Protein Albumin Albumin/Globulin Ratio Arterial Blood Glucose Arterial Blood Ionized Calcium RPR Titer Blood Type Antibody Screen Crossmatch
[2020-07-19] MEDS ORDERED: SODIUM CHLORIDE IRRI 500 ML 0 ML IR ONE (09:52)
[2020-07-19] MEDS ORDERED: SODIUM CHLORIDE 0.9% 500 ML 500 ML ONE ×2 (09:57→10:02)
[2020-07-19] MEDS ORDERED: SODIUM BICARBONATE 150 MEQ in WATER FOR INJECTION (PF) 1,000 ML IV SCH (10:00)
[2020-07-19] MEDS: VASOPRESSIN 20 UNIT in SODIUM CHLORIDE 0.9% 100 ML IV SCH ×2 (10:13→20:43)
[2020-07-19] MEDS: cefTRIAXone/NS 1 GM/50 ML 1 GM/50 ML BAG IV SCH (10:15)
[2020-07-19] MEDS: THIAMINE 100 MG in SODIUM CHLORIDE 0.9% 50 ML IV SCH (10:16)
[2020-07-19] MEDS: FOLIC ACID 1 MG in SODIUM CHLORIDE 0.9% 50 ML IV SCH (10:16)
--- NOTE | 2020-07-19 10:30 | Progress Note ---
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 Acidosis Acute Liver Failure N/V UTI Syphilis Plan: -Cr is stable since yesterday, slowly rising BUN, no UOP recorded -no acute indication for PAY AGENT and she is currently on 2 pressors with HR in 160 -change IVF to sodium bicarb 75 meq in D5WS at 150 cc/h for metabolic acidosis, volume repletion and hypernatremia -Sepsis-On multiple IV antibiotics -Obtain daily weights -Monitor I/O's daily -Avoid nephrotoxic agents -Monitor renal function closely Gordon Schmitt MD [phone] Subjective Date of service: 07/19/20 Principal diagnosis: Acute Liver Injury Interval history: patient coded last night s/p PCR and intubation, no family at bedside Objective - Vital Signs Vital signs: Vital Signs - 12hr 07/18/20 07/18/20 07/18/20 22:45 22:55 23:01 Pulse Rate 151 H 155 H 152 H Respiratory 49 H 53 H 50 H Rate Blood Pressure 85/47 85/47 85/47 O2 Sat by Pulse 95 95 100 Oximetry 07/18/20 07/18/20 07/18/20 23:15 23:30 23:45 Pulse Rate 156 H 152 H 152 H Respiratory 54 H 53 H 53 H Rate Blood Pressure 57/28 67/34 67/34 O2 Sat by Pulse 96 97 96 Oximetry 07/18/20 07/19/20 07/19/20 23:47 00:01 00:15 Pulse Rate 143 H 142 H Respiratory 48 H 49 H Rate Blood Pressure 88/48 101/39 O2 Sat by Pulse 100 98 100 Oximetry 07/19/20 07/19/20 07/19/20 00:30 00:45 01:01 Pulse Rate 147 H 145 H 149 H Respiratory 53 H 54 H 58 H Rate Blood Pressure 89/48 99/48 106/50 O2 Sat by Pulse 97 95 96 Oximetry 07/19/20 07/19/20 07/19/20 01:15 01:31 01:45 Pulse Rate 153 H 154 H 148 H Respiratory 64 H 64 H 58 H Rate Blood Pressure 99/48 105/41 86/41 O2 Sat by Pulse 94 95 93 Oximetry 07/19/20 07/19/20 07/19/20 02:01 02:15 02:34 Pulse Rate 146 H 151 H Respiratory 61 H 52 H Rate Blood Pressure 96/45 85/46 O2 Sat by Pulse 95 97 Oximetry 07/19/20 07/19/20 07/19/20 02:45 03:01 03:15 Pulse Rate 144 H 142 H 146 H Respiratory 50 H 55 H 56 H Rate Blood Pressure 85/40 97/55 94/52 O2 Sat by Pulse 98 97 96 Oximetry 07/19/20 07/19/20 07/19/20 03:25 03:27 03:28 Pulse Rate 153 H 155 H 155 H Respiratory 60 H 57 H 55 H Rate Blood Pressure 94/52 94/52 94/52 O2 Sat by Pulse 99 96 95 Oximetry 07/19/20 07/19/20 07/19/20 03:29 03:31 03:33 Pulse Rate 151 H 153 H 151 H Respiratory 54 H 57 H 54 H Rate Blood Pressure 94/52 96/48 96/48 O2 Sat by Pulse 94 95 95 Oximetry 07/19/20 07/19/20 07/19/20 03:35 03:37 03:39 Pulse Rate 151 H 148 H 151 H Respiratory 51 H 58 H 54 H Rate Blood Pressure 96/48 96/48 96/48 O2 Sat by Pulse 94 95 94 Oximetry 07/19/20 07/19/20 07/19/20 03:40 03:41 03:43 Pulse Rate 151 H 152 H 149 H Respiratory 57 H 60 H 53 H Rate Blood Pressure 96/48 96/48 96/48 O2 Sat by Pulse 94 94 94 Oximetry 07/19/20 07/19/20 07/19/20 03:45 03:46 03:47 Pulse Rate 150 H 150 H 148 H Respiratory 56 H 58 H 57 H Rate Blood Pressure 96/48 104/44 104/44 O2 Sat by Pulse 95 95 93 Oximetry 07/19/20 07/19/20 07/19/20 03:49 03:51 03:53 Pulse Rate 147 H 146 H 145 H Respiratory 54 H 50 H 50 H Rate Blood Pressure 104/44 104/44 104/44 O2 Sat by Pulse 94 94 94 Oximetry 07/19/20 07/19/20 07/19/20 03:55 03:57 03:59 Pulse Rate 147 H 145 H 146 H Respiratory 51 H 49 H 50 H Rate Blood Pressure 104/44 104/44 104/44 O2 Sat by Pulse 94 94 92 Oximetry 07/19/20 07/19/20 07/19/20 04:01 04:03 04:05 Pulse Rate 147 H 147 H 145 H Respiratory 50 H 49 H 48 H Rate Blood Pressure 82/37 82/37 82/37 O2 Sat by Pulse 94 93 92 Oximetry 07/19/20 07/19/20 07/19/20 04:07 04:09 04:11 Pulse Rate 144 H 143 H 144 H Respiratory 48 H 47 H 45 H Rate Blood Pressure 82/37 96/48 96/48 O2 Sat by Pulse 92 92 93 Oximetry 07/19/20 07/19/20 07/19/20 04:13 04:15 04:17 Pulse Rate 143 H 143 H 145 H Respiratory 46 H 45 H 46 H Rate Blood Pressure 96/48 90/43 90/43 O2 Sat by Pulse 93 93 94 Oximetry 07/19/20 07/19/20 07/19/20 04:19 04:21 04:23 Pulse Rate 147 H 144 H 147 H Respiratory 49 H 52 H 51 H Rate Blood Pressure 90/43 90/43 90/43 O2 Sat by Pulse 94 92 92 Oximetry 07/19/20 07/19/20 07/19/20 04:25 04:27 04:29 Pulse Rate 148 H 148 H 149 H Respiratory 51 H 51 H 55 H Rate Blood Pressure 90/43 90/43 90/43 O2 Sat by Pulse 93 91 92 Oximetry 07/19/20 07/19/20 07/19/20 04:30 04:31 04:33 Pulse Rate 148 H 148 H 150 H Respiratory 54 H 53 H 57 H Rate Blood Pressure 93/41 93/41 93/41 O2 Sat by Pulse 92 93 91 Oximetry 07/19/20 07/19/20 07/19/20 04:35 04:37 04:39 Pulse Rate 146 H 146 H 147 H Respiratory 52 H 53 H 48 H Rate Blood Pressure 93/41 93/41 93/41 O2 Sat by Pulse 93 91 76 L Oximetry 07/19/20 07/19/20 07/19/20 04:41 04:43 04:45 Pulse Rate 143 H 145 H 145 H Respiratory 51 H 53 H 52 H Rate Blood Pressure 93/41 93/41 91/45 O2 Sat by Pulse 94 93 93 Oximetry 07/19/20 07/19/2007/19/20 04:47 04:49 04:51 Pulse Rate 148 H 141 H 141 H Respiratory 51 H 50 H 47 H Rate Blood Pressure 91/45 91/45 91/45 O2 Sat by Pulse 92 89 90 Oximetry 07/19/20 07/19/20 07/19/20 04:53 04:55 04:57 Pulse Rate 142 H 140 H 141 H Respiratory 49 H 48 H 47 H Rate Blood Pressure 91/45 91/45 91/45 O2 Sat by Pulse 90 89 92 Oximetry 07/19/20 07/19/20 07/19/20 04:59 05:01 05:03 Pulse Rate 142 H 145 H 115 H Respiratory 47 H 48 H 25 H Rate Blood Pressure 91/45 91/45 62/26 O2 Sat by Pulse 93 93 82 L Oximetry 07/19/20 07/19/20 07/19/20 05:05 05:07 05:09 Pulse Rate 107 H 80 41 L Respiratory 29 H 18 0 L Rate Blood Pressure 62/26 62/26 62/26 O2 Sat by Pulse 94 93 Oximetry 07/19/20 07/19/20 07/19/20 05:11 05:13 05:15 Pulse Rate 77 46 L 22 L Respiratory 0 L 0 L 0 L Rate Blood Pressure 62/26 62/26 62/26 O2 Sat by Pulse Oximetry 07/19/20 07/19/20 07/19/20 05:17 05:19 05:20 Pulse Rate 120 H 148 H 102 H Respiratory 73 H 81 H 91 H Rate Blood Pressure 62/26 158/42 158/42 O2 Sat by Pulse 100 31 L 84 Oximetry 07/19/20 07/19/20 07/19/20 05:21 05:22 05:23 Pulse Rate 147 H 106 H 77 Respiratory 98 H 97 H 89 H Rate Blood Pressure 158/42 220/118 220/118 O2 Sat by Pulse 84 80 L 80 L Oximetry 07/19/20 07/19/20 07/19/20 05:24 05:25 05:27 Pulse Rate 114 H Respiratory 89 H 104 H Rate Blood Pressure 228/197 228/197 144/91 O2 Sat by Pulse 88 94 87 Oximetry 07/19/20 07/19/20 07/19/20 05:29 05:31 05:32 Pulse Rate 208 H 213 H 212 H Respiratory 13 14 16 Rate Blood Pressure 103/52 103/52 79/41 O2 Sat by Pulse 81 L 81 L Oximetry 07/19/20 07/19/20 07/19/20 05:33 05:35 05:37 Pulse Rate 204 H 231 H 211 H Respiratory 15 13 17 Rate Blood Pressure 72/40 65/32 76/34 O2 Sat by Pulse 92 96 92 Oximetry 07/19/20 07/19/20 07/19/20 05:39 05:41 05:43 Pulse Rate 186 H 188 H 186 H Respiratory 18 18 18 Rate Blood Pressure 84/36 78/38 86/41 O2 Sat by Pulse 94 92 92 Oximetry 07/19/20 07/19/20 07/19/20 05:45 05:47 05:49 Pulse Rate 188 H 189 H 200 H Respiratory 18 18 18 Rate Blood Pressure 86/44 88/46 85/46 O2 Sat by Pulse 95 96 96 Oximetry 07/19/20 07/19/20 07/19/20 05:51 05:53 05:55 Pulse Rate 196 H 198 H 128 H Respiratory 18 18 18 Rate Blood Pressure 90/51 101/53 100/46 O2 Sat by Pulse 97 98 99 Oximetry 07/19/20 07/19/20 07/19/20 05:57 05:59 06:01 Pulse Rate 129 H 134 H 146 H Respiratory 18 17 18 Rate Blood Pressure 109/47 119/48 110/54 O2 Sat by Pulse 99 98 98 Oximetry 07/19/20 07/19/20 07/19/20 06:03 06:05 06:07 Pulse Rate 158 H 162 H 165 H Respiratory 16 18 18 Rate Blood Pressure 114/51 111/54 110/50 O2 Sat by Pulse 98 98 97 Oximetry 07/19/20 07/19/20 07/19/20 06:09 06:11 06:13 Pulse Rate 162 H 168 H 166 H Respiratory 18 18 18 Rate Blood Pressure 112/50 113/50 110/50 O2 Sat by Pulse 97 97 98 Oximetry 07/19/20 07/19/20 07/19/20 06:15 06:17 06:19 Pulse Rate 165 H 168 H 170 H Respiratory 18 18 18 Rate Blood Pressure 114/51 107/53 108/51 O2 Sat by Pulse 98 98 98 Oximetry 07/19/20 07/19/20 07/19/20 06:21 06:23 06:46 Pulse Rate 171 H 172 H Respiratory 18 18 17 Rate Blood Pressure 106/51 105/50 O2 Sat by Pulse 97 97 98 Oximetry 07/19/20 07/19/20 07/19/20 06:58 06:59 07:00 Pulse Rate 180 H 180 H 180 H Respiratory 25 H 25 H 25 H Rate Blood Pressure 103/36 99/35 99/35 O2 Sat by Pulse 91 90 90 Oximetry 07/19/20 07/19/20 07/19/20 07:01 07:03 07:04 Pulse Rate 179 H 178 H 178 H Respiratory 25 H 25 H 25 H Rate Blood Pressure 97/43 97/36 97/36 O2 Sat by Pulse 90 89 90 Oximetry 07/19/20 07/19/20 07/19/20 07:05 07:07 07:08 Pulse Rate 178 H 178 H 178 H Respiratory 25 H 25 H 25 H Rate Blood Pressure 95/37 96/36 96/36 O2 Sat by Pulse 89 88 89 Oximetry 07/19/20 07/19/20 07/19/20 07:09 07:10 07:11 Pulse Rate 177 H 177 H 177 H Respiratory 25 H 25 H 25 H Rate Blood Pressure 96/36 108/36 108/36 O2 Sat by Pulse 48 L Oximetry 07/19/20 07/19/20 07/19/20 07:12 07:13 07:14 Pulse Rate 177 H 177 H 177 H Respiratory 25 H 25 H 25 H Rate Blood Pressure 101/36 98/40 98/40 O2 Sat by Pulse 55 L Oximetry 07/19/20 07/19/20 07/19/20 07:15 07:16 07:17 Pulse Rate 176 H 177 H 177 H Respiratory 25 H 25 H 25 H Rate Blood Pressure 98/40 89/34 90/37 O2 Sat by Pulse 88 89 88 Oximetry 07/19/20 07/19/20 07/19/20 07:19 07:21 07:22 Pulse Rate 177 H 177 H 177 H Respiratory 25 H 25 H 25 H Rate Blood Pressure 95/37 99/35 99/35 O2 Sat by Pulse 87 86 86 Oximetry 07/19/20 07/19/20 07/19/20 07:23 07:24 07:25 Pulse Rate 176 H 177 H 176 H Respiratory 25 H 25 H 25 H Rate Blood Pressure 93/37 93/37 93/37 O2 Sat by Pulse 85 86 97 Oximetry 07/19/20 07/19/20 07/19/20 07:26 07:27 07:29 Pulse Rate 177 H 176 H 177 H Respiratory 25 H 25 H 25 H Rate Blood Pressure 93/35 91/38 98/38 O2 Sat by Pulse 100 95 Oximetry 07/19/20 07/19/20 07/19/20 07:30 07:31 07:32 Pulse Rate 177 H 176 H 176 H Respiratory 25 H 25 H 25 H Rate Blood Pressure 98/38 98/37 98/37 O2 Sat by Pulse 100 100 99 Oximetry 07/19/20 07/19/20 07/19/20 07:33 07:34 07:35 Pulse Rate 176 H 176 H 176 H Respiratory 24 25 H 25 H Rate Blood Pressure 98/37 96/37 96/37 O2 Sat by Pulse 99 Oximetry 07/19/20 07/19/20 07/19/20 07:36 07:37 07:38 Pulse Rate 176 H 176 H 176 H Respiratory 26 H 25 H 25 H Rate Blood Pressure 89/35 96/37 96/37 O2 Sat by Pulse 91 94 93 Oximetry 07/19/20 07/19/20 07/19/20 07:39 07:40 07:41 Pulse Rate 175 H 176 H 175 H Respiratory 25 H 25 H 25 H Rate Blood Pressure 96/37 90/43 90/43 O2 Sat by Pulse 92 92 91 Oximetry 07/19/20 07/19/20 07/19/20 07:42 07:43 07:44 Pulse Rate 175 H 174 H 174 H Respiratory 25 H 25 H 25 H Rate Blood Pressure 96/40 96/40 103/44 O2 Sat by Pulse Oximetry 07/19/20 07/19/20 07/19/20 07:45 07:46 07:47 Pulse Rate 173 H 172 H 172 H Respiratory 25 H 25 H 25 H Rate Blood Pressure 102/42 102/42 102/42 O2 Sat by Pulse Oximetry 07/19/20 07/19/20 07/19/20 07:48 07:49 07:50 Pulse Rate 171 H 171 H 171 H Respiratory 25 H 25 H 25 H Rate Blood Pressure 110/41 110/41 105/46 O2 Sat by Pulse Oximetry 07/19/20 07/19/20 07/19/20 07:51 07:52 08:45 Pulse Rate 170 H 170 H 169 H Respiratory 25 H 25 H Rate Blood Pressure 105/46 99/44 110/53 O2 Sat by Pulse 98 Oximetry - General Appearance General appearance: intubated EENT: mucous membranes dry Neck: no JVD Respiratory: Present: Decreased Breath Sounds Cardiology: tachycardia Gastrointestinal: no tenderness, no distended Integumentary: no rash Neurologic: other (sedated) Musculoskeletal: other (tarce pitting edema in BLE) - Lab 07/19/20 05:41 07/19/20 05:41 Most recent lab results ABG pH 6.904 (7.320-7.450) L 07/19/20 06:14 Calcium 6.8 mg/dL (8.4-10.2) L 07/19/20 05:41 Magnesium 2.10 mg/dL (1.7-2.3) 07/16/20 20:47 Medications & Allergies - Medications Allergies/Adverse Reactions: Allergies No Known Allergies Allergy (Verified 07/16/20 22:03) Home Medications: Home Medications Medication Instructions Recorded Confirmed Last Taken Type No Known Home Medications [No 07/17/20 07/17/20 Unknown History Reported Home Medications] Active Medications: Generic Name Dose Route Start Last Admin Trade Name Freq PRN Reason Stop Dose Admin Norepinephrine 4 mg in 250 mls @ 7.5 mls/hr 07/17/20 03:00 07/19/20 08:19 Levophed Drip 4 Mg/Ns 250 Ml IV 30 mcg/min TITR ESTELA 112.5 mls/hr Titration Protocol 2 MCG/MIN Doxycycline Hyclate 100 mg/ 250 mls @ 250 mls/hr 07/17/20 11:00 07/19/20 10:22 Sodium Chloride IV 250 mls/hr Q12HR ESTELA Administration Protocol Acyclovir 370 mg/ Sodium 107.4 mls @ 100 mls/hr 07/17/20 12:00 07/19/20 10:15 Chloride IV 100 mls/hr Q12HR ESTELA Administration Protocol Ceftriaxone Sodium 1 gm in 50 mls @ 100 mls/hr 07/17/20 12:00 07/19/20 10:15 Rocephin/Ns 1 Gm/50 Ml IV 100 mls/hr Q24HR ESTELA Administration Protocol Thiamine HCl 100 mg/ Sodium 51 mls @ 100 mls/hr 07/18/20 10:00 07/19/20 10:16 Chloride IV 100 mls/hr QDAY ESTELA Administration Folic Acid 1 mg/ Sodium 50.2 mls @ 200.8 mls/hr 07/18/20 10:00 07/19/20 10:16 Chloride IV 200.8 mls/hr QDAY ESTELA Administration Pantoprazole Sodium 80 mg/ 100 mls @ 10 mls/hr 07/19/20 06:00 07/19/20 06:02 Sodium Chloride IV 8 mg/hr DIRECT ESTELA 10 mls/hr Administration 8 MG/HR Dextrose 1,000 mls @ 125 mls/hr 07/19/20 06:00 07/19/20 05:54 D10w IV 125 mls/hr DIRECT ESTELA Administration Dopamine HCl/Dextrose 800 mg in 250 mls @ 2.807 mls/hr 07/19/20 05:45 07/19/20 05:55 Intropin Drip 800 Mg/D5w 250 Ml IV 20 mcg/kg/min TITR ESTELA 28.066 mls/hr Administration Protocol 2 MCG/KG/MIN Sodium Bicarbonate 150 meq/ 1,150 mls @ 250 mls/hr 07/19/20 10:00 Sterile Water IV DIRECT ESTELA Vasopressin 20 unit/ Sodium 101 mls @ 9.09 mls/hr 07/19/20 10:00 07/19/20 10:13 Chloride IV 0.03 units/min TITR ESTELA 9.09 mls/hr Administration Protocol 0.03 UNITS/MIN Magnesium Hydroxide 30 ml 07/17/20 03:56 Magnesium Hydroxide (Mom) Oral Liqd Udc PO Q4H PRN Constipation Morphine Sulfate 2 mg 07/17/20 03:56 07/18/20 20:00 Morphine 2 Mg/1 Ml Inj IV 2 mg Q4H PRN Administration Pain, Moderate (4-6) Ondansetron HCl 4 mg 07/17/20 03:56 07/18/20 20:00 Ondansetron 4 Mg/2 Ml Inj IV 4 mg Q8H PRN Administration Nausea And Vomiting Sodium Chloride 10 ml 07/17/20 10:00 07/19/20 10:16 Sodium Chloride 0.9% 10 Ml Flush Syringe IV 10 ml BID ESTELA Administration Sodium Chloride 10 ml 07/17/20 03:56 Sodium Chloride 0.9% 10 Ml Flush Syringe IV PRN PRN LINE FLUSH
[2020-07-19] MEDS ORDERED: SODIUM BICARBONATE 75 MEQ in DEXTROSE 5% IN WATER 1,000 ML IV ONE (11:00)
[2020-07-19 11:43] LABS: Anisocytosis 1+; Myelocytes # (Manual) 0.2 K/mm3; Total Cells Counted 100
[2020-07-19 11:44] LABS: Hypochromasia Few; Platelet Estimate Consistent w Auto
--- NOTE | 2020-07-19 12:09 | Progress Note ---
Assessment and Plan Supportive care. Overall prognosis is very guarded to poor with cardiac arrest and now cardiovascular collapse. Worsening metabolic acidosis. Currently on bicarb drip to help with this. Agree with shepherd scan if patient is stable enough to get to the scanner. Concern for neurologic episode that may have led to this cardiac arrest. Given presentation and initial labs, prognosis was poor from admission. GI has spoken with family. CCT 31 minutes. Subjective Date of service: 07/19/20 Principal diagnosis: Acute Liver Injury Interval history: Patient had cardiac arrest today morning. NOw maxed on 4 pressors including epi drip. Unresponsive on vent at 85%. Pupils fixed. Objective - Constitutional Vitals: Vital Signs - 12hr 07/19/20 07/19/20 07/19/20 00:15 00:30 00:45 Temperature Pulse Rate 142 H 147 H 145 H Respiratory 49 H 53 H 54 H Rate Blood Pressure 101/39 89/48 99/48 O2 Sat by Pulse 100 97 95 Oximetry 07/19/20 07/19/20 07/19/20 01:01 01:15 01:31 Temperature Pulse Rate 149 H 153 H 154 H Respiratory 58 H 64 H 64 H Rate Blood Pressure 106/50 99/48 105/41 O2 Sat by Pulse 96 94 95 Oximetry 07/19/20 07/19/20 07/19/20 01:45 02:01 02:15 Temperature Pulse Rate 148 H 146 H 151 H Respiratory 58 H 61 H 52 H Rate Blood Pressure 86/41 96/45 85/46 O2 Sat by Pulse 93 95 Oximetry 07/19/20 07/19/20 07/19/20 02:34 02:45 03:01 Temperature Pulse Rate 144 H 142 H Respiratory 50 H 55 H Rate Blood Pressure 85/40 97/55 O2 Sat by Pulse 97 98 97 Oximetry 07/19/20 07/19/20 07/19/20 03:15 03:25 03:27 Temperature Pulse Rate 146 H 153 H 155 H Respiratory 56 H 60 H 57 H Rate Blood Pressure 94/52 94/52 94/52 O2 Sat by Pulse 96 99 96 Oximetry 07/19/20 07/19/20 07/19/20 03:28 03:29 03:31 Temperature Pulse Rate 155 H 151 H 153 H Respiratory 55 H 54 H 57 H Rate Blood Pressure 94/52 94/52 96/48 O2 Sat by Pulse 95 94 95 Oximetry 07/19/20 07/19/20 07/19/20 03:33 03:35 03:37 Temperature Pulse Rate 151 H 151 H 148 H Respiratory 54 H 51 H 58 H Rate Blood Pressure 96/48 96/48 96/48 O2 Sat by Pulse 95 94 95 Oximetry 07/19/20 07/19/20 07/19/20 03:39 03:40 03:41 Temperature Pulse Rate 151 H 151 H 152 H Respiratory 54 H 57 H 60 H Rate Blood Pressure 96/48 96/48 96/48 O2 Sat by Pulse 94 94 94 Oximetry 07/19/20 07/19/20 07/19/20 03:43 03:45 03:46 Temperature Pulse Rate 149 H 150 H 150 H Respiratory 53 H 56 H 58 H Rate Blood Pressure 96/48 96/48 104/44 O2 Sat by Pulse 94 95 95 Oximetry 07/19/20 07/19/20 07/19/20 03:47 03:49 03:51 Temperature Pulse Rate 148 H 147 H 146 H Respiratory 57 H 54 H 50 H Rate Blood Pressure 104/44 104/44 104/44 O2 Sat by Pulse 93 94 94 Oximetry 07/19/20 07/19/20 07/19/20 03:53 03:55 03:57 Temperature Pulse Rate 145 H 147 H 145 H Respiratory 50 H 51 H 49 H Rate Blood Pressure 104/44 104/44 104/44 O2 Sat by Pulse 94 94 94 Oximetry 07/19/20 07/19/20 07/19/20 03:59 04:01 04:03 Temperature Pulse Rate 146 H 147 H 147 H Respiratory 50 H 50 H 49 H Rate Blood Pressure 104/44 82/37 82/37 O2 Sat by Pulse 92 94 93 Oximetry 07/19/20 07/19/20 07/19/20 04:05 04:07 04:09 Temperature Pulse Rate 145 H 144 H 143 H Respiratory 48 H 48 H 47 H Rate Blood Pressure 82/37 82/37 96/48 O2 Sat by Pulse 92 92 92 Oximetry 07/19/20 07/19/20 07/19/20 04:11 04:13 04:15 Temperature Pulse Rate 144 H 143 H 143 H Respiratory 45 H 46 H 45 H Rate Blood Pressure 96/48 96/48 90/43 O2 Sat by Pulse 93 93 93 Oximetry 07/19/20 07/19/20 07/19/20 04:17 04:19 04:21 Temperature Pulse Rate 145 H 147 H 144 H Respiratory 46 H 49 H 52 H Rate Blood Pressure 90/43 90/43 90/43 O2 Sat by Pulse 94 94 92 Oximetry 07/19/20 07/19/20 07/19/20 04:23 04:25 04:27 Temperature Pulse Rate 147 H 148 H 148 H Respiratory 51 H 51 H 51 H Rate Blood Pressure 90/43 90/43 90/43 O2 Sat by Pulse 92 93 91 Oximetry 07/19/20 07/19/20 07/19/20 04:29 04:30 04:31 Temperature Pulse Rate 149 H 148 H 148 H Respiratory 55 H 54 H 53 H Rate Blood Pressure 90/43 93/41 93/41 O2 Sat by Pulse 92 92 93 Oximetry 07/19/20 07/19/20 07/19/20 04:33 04:35 04:37 Temperature Pulse Rate 150 H 146 H 146 H Respiratory 57 H 52 H 53 H Rate Blood Pressure 93/41 93/41 93/41 O2 Sat by Pulse 91 93 91 Oximetry 07/19/20 07/19/20 07/19/20 04:39 04:41 04:43 Temperature Pulse Rate 147 H 143 H 145 H Respiratory 48 H 51 H 53 H Rate Blood Pressure 93/41 93/41 93/41 O2 Sat by Pulse 76 L 94 93 Oximetry 07/19/20 07/19/20 07/19/20 04:45 04:47 04:49 Temperature Pulse Rate 145 H 148 H 141 H Respiratory 52 H 51 H 50 H Rate Blood Pressure 91/45 91/45 91/45 O2 Sat by Pulse 93 92 89 Oximetry 07/19/20 07/19/20 07/19/20 04:51 04:53 04:55 Temperature Pulse Rate 141 H 142 H 140 H Respiratory 47 H 49 H 48 H Rate Blood Pressure 91/45 91/45 91/45 O2 Sat by Pulse 90 90 89 Oximetry 07/19/20 07/19/20 07/19/20 04:57 04:59 05:01 Temperature Pulse Rate 141 H 142 H 145 H Respiratory 47 H 47 H 48 H Rate Blood Pressure 91/45 91/45 91/45 O2 Sat by Pulse 92 93 93 Oximetry 07/19/20 07/19/20 07/19/20 05:03 05:05 05:07 Temperature Pulse Rate 115 H 107 H 80 Respiratory 25 H 29 H 18 Rate Blood Pressure 62/26 62/26 62/26 O2 Sat by Pulse 82 L 94 93 Oximetry 07/19/20 07/19/20 07/19/20 05:09 05:11 05:13 Temperature Pulse Rate 41 L 77 46 L Respiratory 0 L 0 L 0 L Rate Blood Pressure 62/26 62/26 62/26 O2 Sat by Pulse Oximetry 07/19/20 07/19/20 07/19/20 05:15 05:17 05:19 Temperature Pulse Rate 22 L 120 H 148 H Respiratory 0 L 73 H 81 H Rate Blood Pressure 62/26 62/26 158/42 O2 Sat by Pulse 100 31 L Oximetry 07/19/20 07/19/20 07/19/20 05:20 05:21 05:22 Temperature Pulse Rate 102 H 147 H 106 H Respiratory 91 H 98 H 97 H Rate Blood Pressure 158/42 158/42 220/118 O2 Sat by Pulse 84 84 80 L Oximetry 07/19/20 07/19/20 07/19/20 05:23 05:24 05:25 Temperature Pulse Rate 77 114 H Respiratory 89 H 89 H Rate Blood Pressure 220/118 228/197 228/197 O2 Sat by Pulse 80 L 88 94 Oximetry 07/19/20 07/19/20 07/19/20 05:27 05:29 05:31 Temperature Pulse Rate 208 H 213 H Respiratory 104 H 13 14 Rate Blood Pressure 144/91 103/52 103/52 O2 Sat by Pulse 87 81 L Oximetry 07/19/20 07/19/20 07/19/20 05:32 05:33 05:35 Temperature Pulse Rate 212 H 204 H 231 H Respiratory 16 15 13 Rate Blood Pressure 79/41 72/40 65/32 O2 Sat by Pulse 81 L 92 96 Oximetry 07/19/20 07/19/20 07/19/20 05:37 05:39 05:41 Temperature Pulse Rate 211 H 186 H 188 H Respiratory 17 18 18 Rate Blood Pressure 76/34 84/36 78/38 O2 Sat by Pulse 92 94 92 Oximetry 07/19/20 07/19/20 07/19/20 05:43 05:45 05:47 Temperature Pulse Rate 186 H 188 H 189 H Respiratory 18 18 18 Rate Blood Pressure 86/41 86/44 88/46 O2 Sat by Pulse 92 95 96 Oximetry 07/19/20 07/19/20 07/19/20 05:49 05:51 05:53 Temperature Pulse Rate 200 H 196 H 198 H Respiratory 18 18 18 Rate Blood Pressure 85/46 90/51 101/53 O2 Sat by Pulse 96 97 98 Oximetry 07/19/20 07/19/20 07/19/20 05:55 05:57 05:59 Temperature Pulse Rate 128 H 129 H 134 H Respiratory 18 18 17 Rate Blood Pressure 100/46 109/47 119/48 O2 Sat by Pulse 99 99 98 Oximetry 07/19/20 07/19/20 07/19/20 06:01 06:03 06:05 Temperature Pulse Rate 146 H 158 H 162 H Respiratory 18 16 18 Rate Blood Pressure 110/54 114/51 111/54 O2 Sat by Pulse 98 98 98 Oximetry 07/19/20 07/19/20 07/19/20 06:07 06:09 06:11 Temperature Pulse Rate 165 H 162 H 168 H Respiratory 18 18 18 Rate Blood Pressure 110/50 112/50 113/50 O2 Sat by Pulse 97 97 97 Oximetry 07/19/20 07/19/20 07/19/20 06:13 06:15 06:17 Temperature Pulse Rate 166 H 165 H 168 H Respiratory 18 18 18 Rate Blood Pressure 110/50 114/51 107/53 O2 Sat by Pulse 98 98 98 Oximetry 07/19/20 07/19/20 07/19/20 06:19 06:21 06:23 Temperature Pulse Rate 170 H 171 H 172 H Respiratory 18 18 18 Rate Blood Pressure 108/51 106/51 105/50 O2 Sat by Pulse 98 97 97 Oximetry 07/19/20 07/19/20 07/19/20 06:46 06:58 06:59 Temperature Pulse Rate 180 H 180 H Respiratory 17 25 H 25 H Rate Blood Pressure 103/36 99/35 O2 Sat by Pulse 98 91 90 Oximetry 07/19/20 07/19/20 07/19/20 07:00 07:01 07:03 Temperature Pulse Rate 180 H 179 H 178 H Respiratory 25 H 25 H 25 H Rate Blood Pressure 99/35 97/43 97/36 O2 Sat by Pulse 90 90 89 Oximetry 07/19/20 07/19/20 07/19/20 07:04 07:05 07:07 Temperature Pulse Rate 178 H 178 H 178 H Respiratory 25 H 25 H 25 H Rate Blood Pressure 97/36 95/37 96/36 O2 Sat by Pulse 90 89 88 Oximetry 07/19/20 07/19/20 07/19/20 07:08 07:09 07:10 Temperature Pulse Rate 178 H 177 H 177 H Respiratory 25 H 25 H 25 H Rate Blood Pressure 96/36 96/36 108/36 O2 Sat by Pulse 89 Oximetry 07/19/20 07/19/20 07/19/20 07:11 07:12 07:13 Temperature Pulse Rate 177 H 177 H 177 H Respiratory 25 H 25 H 25 H Rate Blood Pressure 108/36 101/36 98/40 O2 Sat by Pulse 48 L 55 L Oximetry 07/19/20 07/19/20 07/19/20 07:14 07:15 07:16 Temperature Pulse Rate 177 H 176 H 177 H Respiratory 25 H 25 H 25 H Rate Blood Pressure 98/40 98/40 89/34 O2 Sat by Pulse 88 89 Oximetry 07/19/20 07/19/20 07/19/20 07:17 07:19 07:21 Temperature Pulse Rate 177 H 177 H 177 H Respiratory 25 H 25 H 25 H Rate Blood Pressure 90/37 95/37 99/35 O2 Sat by Pulse 88 87 86 Oximetry 07/19/20 07/19/20 07/19/20 07:22 07:23 07:24 Temperature Pulse Rate 177 H 176 H 177 H Respiratory 25 H 25 H 25 H Rate Blood Pressure 99/35 93/37 93/37 O2 Sat by Pulse 86 85 86 Oximetry 07/19/20 07/19/20 07/19/20 07:25 07:26 07:27 Temperature Pulse Rate 176 H 177 H 176 H Respiratory 25 H 25 H 25 H Rate Blood Pressure 93/37 93/35 91/38 O2 Sat by Pulse 97 100 95 Oximetry 07/19/20 07/19/20 07/19/20 07:29 07:30 07:31 Temperature Pulse Rate 177 H 177 H 176 H Respiratory 25 H 25 H 25 H Rate Blood Pressure 98/38 98/38 98/37 O2 Sat by Pulse 100 100 Oximetry 07/19/20 07/19/20 07/19/20 07:32 07:33 07:34 Temperature Pulse Rate 176 H 176 H 176 H Respiratory 25 H 24 25 H Rate Blood Pressure 98/37 98/37 96/37 O2 Sat by Pulse 99 99 Oximetry 07/19/20 07/19/20 07/19/20 07:35 07:36 07:37 Temperature Pulse Rate 176 H 176 H 176 H Respiratory 25 H 26 H 25 H Rate Blood Pressure 96/37 89/35 96/37 O2 Sat by Pulse 91 94 Oximetry 07/19/20 07/19/20 07/19/20 07:38 07:39 07:40 Temperature Pulse Rate 176 H 175 H 176 H Respiratory 25 H 25 H 25 H Rate Blood Pressure 96/37 96/37 90/43 O2 Sat by Pulse 93 92 92 Oximetry 07/19/20 07/19/20 07/19/20 07:41 07:42 07:43 Temperature Pulse Rate 175 H 175 H 174 H Respiratory 25 H 25 H 25 H Rate Blood Pressure 90/43 96/40 96/40 O2 Sat by Pulse 91 Oximetry 07/19/20 07/19/20 07/19/20 07:44 07:45 07:46 Temperature Pulse Rate 174 H 173 H 172 H Respiratory 25 H 25 H 25 H Rate Blood Pressure 103/44 102/42 102/42 O2 Sat by Pulse Oximetry 07/19/20 07/19/20 07/19/20 07:47 07:48 07:49 Temperature Pulse Rate 172 H 171 H 171 H Respiratory 25 H 25 H 25 H Rate Blood Pressure 102/42 110/41 110/41 O2 Sat by Pulse Oximetry 07/19/20 07/19/20 07/19/20 07:50 07:51 07:52 Temperature Pulse Rate 171 H 170 H 170 H Respiratory 25 H 25 H 25 H Rate Blood Pressure 105/46 105/46 99/44 O2 Sat by Pulse Oximetry 07/19/20 07/19/20 07/19/20 08:45 09:55 09:57 Temperature Pulse Rate 169 H 171 H 172 H Respiratory 25 H 25 H Rate Blood Pressure 110/53 116/59 116/60 O2 Sat by Pulse 98 Oximetry 07/19/20 07/19/20 07/19/20 09:59 10:01 10:03 Temperature Pulse Rate 172 H 172 H 172 H Respiratory 25 H 25 H 25 H Rate Blood Pressure 117/61 119/58 113/55 O2 Sat by Pulse Oximetry 07/19/20 07/19/20 07/19/20 10:05 10:07 10:09 Temperature Pulse Rate 172 H 172 H 172 H Respiratory 25 H 25 H 25 H Rate Blood Pressure 113/56 118/56 112/60 O2 Sat by Pulse 86 Oximetry 07/19/20 07/19/20 07/19/20 10:11 10:13 10:15 Temperature Pulse Rate 172 H 172 H 169 H Respiratory 25 H 25 H 25 H Rate Blood Pressure 109/53 102/55 104/47 O2 Sat by Pulse 94 95 94 Oximetry 07/19/20 07/19/20 07/19/20 10:17 10:19 10:21 Temperature Pulse Rate 166 H 165 H 166 H Respiratory 25 H 25 H 25 H Rate Blood Pressure 99/45 95/42 97/42 O2 Sat by Pulse 93 93 92 Oximetry 07/19/20 07/19/20 07/19/20 10:23 10:25 10:27 Temperature Pulse Rate 167 H 167 H 167 H Respiratory 25 H 25 H 25 H Rate Blood Pressure 103/42 95/40 101/42 O2 Sat by Pulse 93 92 93 Oximetry 07/19/20 07/19/20 07/19/20 10:29 10:31 10:32 Temperature 98.7 F Pulse Rate 167 H 169 H 169 H Respiratory 25 H 25 H 25 H Rate Blood Pressure 104/56 117/52 115/48 O2 Sat by Pulse 94 95 96 Oximetry 07/19/20 07/19/20 07/19/20 10:33 10:35 10:37 Temperature Pulse Rate 168 H 166 H 162 H Respiratory 25 H 25 H 25 H Rate Blood Pressure 115/48 115/48 115/48 O2 Sat by Pulse 95 95 94 Oximetry 07/19/20 07/19/20 07/19/20 10:39 10:41 10:43 Temperature Pulse Rate 157 H 154 H 151 H Respiratory 25 H 25 H 25 H Rate Blood Pressure 115/48 115/48 115/48 O2 Sat by Pulse 92 91 90 Oximetry 07/19/20 07/19/20 07/19/20 10:44 10:45 10:46 Temperature Pulse Rate 150 H 149 H 149 H Respiratory 25 H 25 H 25 H Rate Blood Pressure 95/42 115/48 78/35 O2 Sat by Pulse 90 90 90 Oximetry 07/19/20 07/19/20 07/19/20 10:47 10:49 10:51 Temperature Pulse Rate 148 H 147 H 146 H Respiratory 25 H 25 H 25 H Rate Blood Pressure 78/35 95/42 95/42 O2 Sat by Pulse 91 91 91 Oximetry 07/19/20 07/19/20 07/19/20 10:53 10:55 10:57 Temperature Pulse Rate 146 H 145 H 146 H Respiratory 25 H 25 H 24 Rate Blood Pressure 95/42 95/42 95/42 O2 Sat by Pulse 93 93 93 Oximetry 07/19/20 07/19/20 07/19/20 10:59 11:00 11:01 Temperature Pulse Rate 152 H 150 H 148 H Respiratory 25 H 25 H 25 H Rate Blood Pressure 95/42 100/42 100/42 O2 Sat by Pulse 94 92 90 Oximetry 07/19/20 07/19/20 07/19/20 11:03 11:04 11:05 Temperature Pulse Rate 145 H 145 H 148 H Respiratory 25 H 25 H 25 H Rate Blood Pressure 100/42 100/42 100/42 O2 Sat by Pulse 85 83 L 86 Oximetry 07/19/20 07/19/20 07/19/20 11:07 11:08 11:09 Temperature Pulse Rate 151 H 152 H 152 H Respiratory 25 H 25 H 25 H Rate Blood Pressure 100/42 100/42 100/42 O2 Sat by Pulse 89 90 91 Oximetry 07/19/20 07/19/20 07/19/20 11:11 11:13 11:15 Temperature Pulse Rate 153 H 154 H 154 H Respiratory 25 H 25 H 25 H Rate Blood Pressure 100/42 100/42 114/48 O2 Sat by Pulse 92 93 94 Oximetry 07/19/20 07/19/20 07/19/20 11:17 11:19 11:21 Temperature Pulse Rate 153 H 153 H 153 H Respiratory 25 H 25 H 25 H Rate Blood Pressure 114/48 114/48 100/42 O2 Sat by Pulse 94 94 95 Oximetry 07/19/20 07/19/20 07/19/20 11:23 11:25 11:27 Temperature Pulse Rate 152 H 152 H 152 H Respiratory 25 H 25 H 25 H Rate Blood Pressure 100/42 100/42 100/42 O2 Sat by Pulse 95 95 95 Oximetry 07/19/20 07/19/20 07/19/20 11:29 11:30 11:31 Temperature Pulse Rate 152 H 152 H 152 H Respiratory 25 H 25 H 25 H Rate Blood Pressure 100/42 110/53 110/53 O2 Sat by Pulse 96 96 95 Oximetry 07/19/20 07/19/20 07/19/20 11:33 11:35 11:37 Temperature Pulse Rate 152 H 151 H 151 H Respiratory 25 H 25 H 25 H Rate Blood Pressure 110/53 110/53 110/53 O2 Sat by Pulse 96 96 96 Oximetry 07/19/20 11:39 Temperature Pulse Rate 151 H Respiratory 25 H Rate Blood Pressure 110/53 O2 Sat by Pulse 96 Oximetry General appearance: Present: obese, other (comatose) - Labs CBC & Chem 7: 07/19/20 05:41 07/19/20 05:41 Labs: Abnormal lab results 07/18/20 07/18/20 07/18/20 Range/Units Unknown Unknown Unknown WBC (4.5-11.0) K/mm3 RBC (3.65-5.03) M/mm3 Hgb (10.1-14.3) gm/dl Hct (30.3-42.9) % MCV (79-97) fl MCH (28-32) pg RDW (13.2-15.2) % Plt Count (140-440) K/mm3 Lymph % (Auto) (13.4-35.0) % [place] % (Auto) (0.0-7.3) % Lymph # (Auto) (1.2-5.4) K/mm3 [place] # (Auto) (0.0-0.8) K/mm3 Seg Neutrophils % (40.0-70.0) % Seg Neuts % (Manual) (40.0-70.0) % Lymphocytes % (Manual) (13.4-35.0) % Seg Neutrophils # (1.8-7.7) K/mm3 Seg Neutrophils # Man (1.8-7.7) K/mm3 PT 37.3 H (12.2-14.9) Sec. INR 3.73 H (0.87-1.13) ABG pH (7.320-7.450) POC ABG pCO2 (32.0-48.0) mmHg POC ABG pO2 (83-108) mmHg ABG Hemoglobin (12.0-17.5) ABG Oxyhemoglobin (94-98) ABG Chloride (98-107) mmol/L ABG Glucose (65-95) mg/dL Carboxyhemoglobin (0.5-1.5) Sodium (137-145) mmol/L Chloride (98-107) mmol/L Carbon Dioxide (22-30) mmol/L BUN (7-17) mg/dL Creatinine (0.6-1.2) mg/dL Glucose (65-100) mg/dL POC Glucose (70-105) mg/dL Lactic Acid 4.80 H* (0.7-2.0) mmol/L Calcium (8.4-10.2) mg/dL Total Bilirubin 3.70 H (0.1-1.2) mg/dL Direct Bilirubin 3.0 H (0-0.2) mg/dL AST 2093 H (5-40) units/L ALT 822 H (7-56) units/L Ammonia (25-60) umol/L Total Protein 4.0 L (6.3-8.2) g/dL Albumin 2.5 L (3.9-5) g/dL Arterial Blood Glucose (65-95) mg/dL Arterial Blood Ionized Calcium (4.6-5.3) mg/dL Crossmatch 07/19/20 07/19/20 07/19/20 Range/Units 02:47 03:01 03:01 WBC 19.4 H (4.5-11.0) K/mm3 RBC 2.50 L (3.65-5.03) M/mm3 Hgb 8.5 L (10.1-14.3) gm/dl Hct 26.1 L (30.3-42.9) % MCV 104 H (79-97) fl MCH 34 H (28-32) pg RDW 22.3 H (13.2-15.2) % Plt Count (140-440) K/mm3 Lymph % (Auto) 3.7 L (13.4-35.0) % [place] % (Auto) (0.0-7.3) % Lymph # (Auto) 0.7 L (1.2-5.4) K/mm3 [place] # (Auto) 0.9 H (0.0-0.8) K/mm3 Seg Neutrophils % (40.0-70.0) % Seg Neuts % (Manual) (40.0-70.0) % Lymphocytes % (Manual) (13.4-35.0) % Seg Neutrophils # 17.7 H (1.8-7.7) K/mm3 Seg Neutrophils # Man (1.8-7.7) K/mm3 PT (12.2-14.9) Sec. INR (0.87-1.13) ABG pH (7.320-7.450) POC ABG pCO2 21.1 L (32.0-48.0) mmHg POC ABG pO2 61.7 L (83-108) mmHg ABG Hemoglobin 8.5 L (12.0-17.5) ABG Oxyhemoglobin 88.1 L (94-98) ABG Chloride 119.0 H (98-107) mmol/L ABG Glucose (65-95) mg/dL Carboxyhemoglobin (0.5-1.5) Sodium (137-145) mmol/L Chloride (98-107) mmol/L Carbon Dioxide (22-30) mmol/L BUN (7-17) mg/dL Creatinine (0.6-1.2) mg/dL Glucose (65-100) mg/dL POC Glucose (70-105) mg/dL Lactic Acid 5.90 H* (0.7-2.0) mmol/L Calcium (8.4-10.2) mg/dL Total Bilirubin (0.1-1.2) mg/dL Direct Bilirubin (0-0.2) mg/dL AST (5-40) units/L ALT (7-56) units/L Ammonia (25-60) umol/L Total Protein (6.3-8.2) g/dL Albumin (3.9-5) g/dL Arterial Blood Glucose (65-95) mg/dL Arterial Blood Ionized Calcium 4.0 L (4.6-5.3) mg/dL Crossmatch 07/19/20 07/19/20 07/19/20 Range/Units 03:01 03:01 03:01 WBC (4.5-11.0) K/mm3 RBC (3.65-5.03) M/mm3 Hgb (10.1-14.3) gm/dl Hct (30.3-42.9) % MCV (79-97) fl MCH (28-32) pg RDW (13.2-15.2) % Plt Count (140-440) K/mm3 Lymph % (Auto) (13.4-35.0) % [place] % (Auto) (0.0-7.3) % Lymph # (Auto) (1.2-5.4) K/mm3 [place] # (Auto) (0.0-0.8) K/mm3 Seg Neutrophils % (40.0-70.0) % Seg Neuts % (Manual) (40.0-70.0) % Lymphocytes % (Manual) (13.4-35.0) % Seg Neutrophils # (1.8-7.7) K/mm3 Seg Neutrophils # Man (1.8-7.7) K/mm3 PT 35.0 H (12.2-14.9) Sec. INR 3.45 H (0.87-1.13) ABG pH (7.320-7.450) POC ABG pCO2 (32.0-48.0) mmHg POC ABG pO2 (83-108) mmHg ABG Hemoglobin (12.0-17.5) ABG Oxyhemoglobin (94-98) ABG Chloride (98-107) mmol/L ABG Glucose (65-95) mg/dL Carboxyhemoglobin (0.5-1.5) Sodium 149 H (137-145) mmol/L Chloride 116.6 H (98-107) mmol/L Carbon Dioxide 14 L (22-30) mmol/L BUN 48 H (7-17) mg/dL Creatinine 2.5 H (0.6-1.2) mg/dL Glucose (65-100) mg/dL POC Glucose (70-105) mg/dL Lactic Acid (0.7-2.0) mmol/L Calcium 7.4 L D (8.4-10.2) mg/dL Total Bilirubin 3.70 H (0.1-1.2) mg/dL Direct Bilirubin (0-0.2) mg/dL AST 1730 H (5-40) units/L ALT 751 H (7-56) units/L Ammonia 126.0 H (25-60) umol/L Total Protein 4.3 L (6.3-8.2) g/dL Albumin 2.4 L (3.9-5) g/dL Arterial Blood Glucose (65-95) mg/dL Arterial Blood Ionized Calcium (4.6-5.3) mg/dL Crossmatch 07/19/20 07/19/20 07/19/20 Range/Units 05:25 05:41 05:41 WBC 15.9 H (4.5-11.0) K/mm3 RBC 1.80 L (3.65-5.03) M/mm3 Hgb 6.2 L (10.1-14.3) gm/dl Hct 19.7 L* D (30.3-42.9) % MCV 109 H (79-97) fl MCH 35 H (28-32) pg RDW 22.7 H (13.2-15.2) % Plt Count 99 L (140-440) K/mm3 Lymph % (Auto) 9.7 L (13.4-35.0) % [place] % (Auto) 8.3 H (0.0-7.3) % Lymph # (Auto) (1.2-5.4) K/mm3 [place] # (Auto) 1.3 H (0.0-0.8) K/mm3 Seg Neutrophils % 81.2 H (40.0-70.0) % Seg Neuts % (Manual) 85.0 H (40.0-70.0) % Lymphocytes % (Manual) 12.0 L (13.4-35.0) % Seg Neutrophils # 12.9 H (1.8-7.7) K/mm3 Seg Neutrophils # Man 13.5 H (1.8-7.7) K/mm3 PT 51.8 H (12.2-14.9) Sec. INR 5.63 H* (0.87-1.13) ABG pH (7.320-7.450) POC ABG pCO2 (32.0-48.0) mmHg POC ABG pO2 (83-108) mmHg ABG Hemoglobin (12.0-17.5) ABG Oxyhemoglobin (94-98) ABG Chloride (98-107) mmol/L ABG Glucose (65-95) mg/dL Carboxyhemoglobin (0.5-1.5) Sodium (137-145) mmol/L Chloride (98-107) mmol/L Carbon Dioxide (22-30) mmol/L BUN (7-17) mg/dL Creatinine (0.6-1.2) mg/dL Glucose (65-100) mg/dL POC Glucose 43 L (70-105) mg/dL Lactic Acid (0.7-2.0) mmol/L Calcium (8.4-10.2) mg/dL Total Bilirubin (0.1-1.2) mg/dL Direct Bilirubin (0-0.2) mg/dL AST (5-40) units/L ALT (7-56) units/L Ammonia (25-60) umol/L Total Protein (6.3-8.2) g/dL Albumin (3.9-5) g/dL Arterial Blood Glucose (65-95) mg/dL Arterial Blood Ionized Calcium (4.6-5.3) mg/dL Crossmatch 07/19/20 07/19/20 07/19/20 Range/Units 05:41 05:41 05:41 WBC (4.5-11.0) K/mm3 RBC (3.65-5.03) M/mm3 Hgb (10.1-14.3) gm/dl Hct (30.3-42.9) % MCV (79-97) fl MCH (28-32) pg RDW (13.2-15.2) % Plt Count (140-440) K/mm3 Lymph % (Auto) (13.4-35.0) % [place] % (Auto) (0.0-7.3) % Lymph # (Auto) (1.2-5.4) K/mm3 [place] # (Auto) (0.0-0.8) K/mm3 Seg Neutrophils % (40.0-70.0) % Seg Neuts % (Manual) (40.0-70.0) % Lymphocytes % (Manual) (13.4-35.0) % Seg Neutrophils # (1.8-7.7) K/mm3 Seg Neutrophils # Man (1.8-7.7) K/mm3 PT (12.2-14.9) Sec. INR (0.87-1.13) ABG pH (7.320-7.450) POC ABG pCO2 (32.0-48.0) mmHg POC ABG pO2 (83-108) mmHg ABG Hemoglobin (12.0-17.5) ABG Oxyhemoglobin (94-98) ABG Chloride (98-107) mmol/L ABG Glucose (65-95) mg/dL Carboxyhemoglobin (0.5-1.5) Sodium 150 H (137-145) mmol/L Chloride 117.6 H (98-107) mmol/L Carbon Dioxide 10 L (22-30) mmol/L BUN 50 H (7-17) mg/dL Creatinine 2.8 H (0.6-1.2) mg/dL Glucose 308 H (65-100) mg/dL POC Glucose (70-105) mg/dL Lactic Acid 12.00 H* (0.7-2.0) mmol/L Calcium 6.8 L (8.4-10.2) mg/dL Total Bilirubin 2.20 H (0.1-1.2) mg/dL Direct Bilirubin (0-0.2) mg/dL AST 1224 H (5-40) units/L ALT 484 H (7-56) units/L Ammonia 96.0 H (25-60) umol/L Total Protein 2.8 L D (6.3-8.2) g/dL Albumin 1.6 L (3.9-5) g/dL Arterial Blood Glucose (65-95) mg/dL Arterial Blood Ionized Calcium (4.6-5.3) mg/dL Crossmatch 07/19/20 07/19/20 07/19/20 Range/Units 05:53 06:14 07:35 WBC (4.5-11.0) K/mm3 RBC (3.65-5.03) M/mm3 Hgb (10.1-14.3) gm/dl Hct (30.3-42.9) % MCV (79-97) fl MCH (28-32) pg RDW (13.2-15.2) % Plt Count (140-440) K/mm3 Lymph % (Auto) (13.4-35.0) % [place] % (Auto) (0.0-7.3) % Lymph # (Auto) (1.2-5.4) K/mm3 [place] # (Auto) (0.0-0.8) K/mm3 Seg Neutrophils % (40.0-70.0) % Seg Neuts % (Manual) (40.0-70.0) % Lymphocytes % (Manual) (13.4-35.0) % Seg Neutrophils # (1.8-7.7) K/mm3 Seg Neutrophils # Man (1.8-7.7) K/mm3 PT (12.2-14.9) Sec. INR (0.87-1.13) ABG pH 6.904 L (7.320-7.450) POC ABG pCO2 50.8 H (32.0-48.0) mmHg POC ABG pO2 140.1 H (83-108) mmHg ABG Hemoglobin 7.9 L (12.0-17.5) ABG Oxyhemoglobin (94-98) ABG Chloride 120.0 H (98-107) mmol/L ABG Glucose 220 H (65-95) mg/dL Carboxyhemoglobin 1.7 H (0.5-1.5) Sodium (137-145) mmol/L Chloride (98-107) mmol/L Carbon Dioxide (22-30) mmol/L BUN (7-17) mg/dL Creatinine (0.6-1.2) mg/dL Glucose (65-100) mg/dL POC Glucose 186 H (70-105) mg/dL Lactic Acid (0.7-2.0) mmol/L Calcium (8.4-10.2) mg/dL Total Bilirubin (0.1-1.2) mg/dL Direct Bilirubin (0-0.2) mg/dL AST (5-40) units/L ALT (7-56) units/L Ammonia (25-60) umol/L Total Protein (6.3-8.2) g/dL Albumin (3.9-5) g/dL Arterial Blood Glucose 220 H (65-95) mg/dL Arterial Blood Ionized Calcium 4.1 L (4.6-5.3) mg/dL Crossmatch See Detail 07/19/20 Range/Units 07:35 WBC (4.5-11.0) K/mm3 RBC (3.65-5.03) M/mm3 Hgb (10.1-14.3) gm/dl Hct (30.3-42.9) % MCV (79-97) fl MCH (28-32) pg RDW (13.2-15.2) % Plt Count (140-440) K/mm3 Lymph % (Auto) (13.4-35.0) % [place] % (Auto) (0.0-7.3) % Lymph # (Auto) (1.2-5.4) K/mm3 [place] # (Auto) (0.0-0.8) K/mm3 Seg Neutrophils % (40.0-70.0) % Seg Neuts % (Manual) (40.0-70.0) % Lymphocytes % (Manual) (13.4-35.0) % Seg Neutrophils # (1.8-7.7) K/mm3 Seg Neutrophils # Man (1.8-7.7) K/mm3 PT (12.2-14.9) Sec. INR (0.87-1.13) ABG pH (7.320-7.450) POC ABG pCO2 (32.0-48.0) mmHg POC ABG pO2 (83-108) mmHg ABG Hemoglobin (12.0-17.5) ABG Oxyhemoglobin (94-98) ABG Chloride (98-107) mmol/L ABG Glucose (65-95) mg/dL Carboxyhemoglobin (0.5-1.5) Sodium (137-145) mmol/L Chloride (98-107) mmol/L Carbon Dioxide (22-30) mmol/L BUN (7-17) mg/dL Creatinine (0.6-1.2) mg/dL Glucose (65-100) mg/dL POC Glucose (70-105) mg/dL Lactic Acid 8.50 H* (0.7-2.0) mmol/L Calcium (8.4-10.2) mg/dL Total Bilirubin (0.1-1.2) mg/dL Direct Bilirubin (0-0.2) mg/dL AST (5-40) units/L ALT (7-56) units/L Ammonia (25-60) umol/L Total Protein (6.3-8.2) g/dL Albumin (3.9-5) g/dL Arterial Blood Glucose (65-95) mg/dL Arterial Blood Ionized Calcium (4.6-5.3) mg/dL Crossmatch Medications & Allergies - Medications Allergies/Adverse Reactions: Allergies No Known Allergies Allergy (Verified 07/16/20 22:03) Home Medications: Home Medications Medication Instructions Recorded Confirmed Last Taken Type No Known Home Medications [No 07/17/20 07/17/20 Unknown History Reported Home Medications] Active Medications: Generic Name Dose Route Start Last Admin Trade Name Cruz HENNINGN Reason Stop Dose Admin Norepinephrine 4 mg in 250 mls @ 7.5 mls/hr 07/17/20 03:00 07/19/20 08:19 Levophed Drip 4 Mg/Ns 250 Ml IV 30 mcg/min TITR ESTELA 112.5 mls/hr Titration Protocol 2 MCG/MIN Doxycycline Hyclate 100 mg/ 250 mls @ 250 mls/hr 07/17/20 11:00 07/19/20 10:22 Sodium Chloride IV 250 mls/hr Q12HR ESTELA Administration Protocol Acyclovir 370 mg/ Sodium 107.4 mls @ 100 mls/hr 07/17/20 12:00 07/19/20 10:15 Chloride IV 100 mls/hr Q12HR ESTELA Administration Protocol Ceftriaxone Sodium 1 gm in 50 mls @ 100 mls/hr 07/17/20 12:00 07/19/20 10:15 Rocephin/Ns 1 Gm/50 Ml IV 100 mls/hr Q24HR ESTELA Administration Protocol Thiamine HCl 100 mg/ Sodium 51 mls @ 100 mls/hr 07/18/20 10:00 07/19/20 10:16 Chloride IV 100 mls/hr QDAY ESTELA Administration Folic Acid 1 mg/ Sodium 50.2 mls @ 200.8 mls/hr 07/18/20 10:00 07/19/20 10:16 Chloride IV 200.8 mls/hr QDAY ESTELA Administration Pantoprazole Sodium 80 mg/ 100 mls @ 10 mls/hr 07/19/20 06:00 07/19/20 06:02 Sodium Chloride IV 8 mg/hr DIRECT ESTELA 10 mls/hr Administration 8 MG/HR Dextrose 1,000 mls @ 125 mls/hr 07/19/20 06:00 07/19/20 05:54 D10w IV 125 mls/hr DIRECT ESTELA Administration Dopamine HCl/Dextrose 800 mg in 250 mls @ 2.807 mls/hr 07/19/20 05:45 07/19/20 05:55 Intropin Drip 800 Mg/D5w 250 Ml IV 20 mcg/kg/min TITR ESTELA 28.066 mls/hr Administration Protocol 2 MCG/KG/MIN Vasopressin 20 unit/ Sodium 101 mls @ 9.09 mls/hr 07/19/20 10:00 07/19/20 10:13 Chloride IV 0.03 units/min TITR ESTELA 9.09 mls/hr Administration Protocol 0.03 UNITS/MIN Sodium Bicarbonate 75 meq/ 1,075 mls @ 150 mls/hr 07/19/20 11:00 Dextrose IV DIRECT ESTELA Magnesium Hydroxide 30 ml 07/17/20 03:56 Magnesium Hydroxide (Mom) Oral Liqd Udc PO Q4H PRN Constipation Morphine Sulfate 2 mg 07/17/20 03:56 07/18/20 20:00 Morphine 2 Mg/1 Ml Inj IV 2 mg Q4H PRN Administration Pain, Moderate (4-6) Ondansetron HCl 4 mg 07/17/20 03:56 07/18/20 20:00 Ondansetron 4 Mg/2 Ml Inj IV 4 mg Q8H PRN Administration Nausea And Vomiting Sodium Chloride 10 ml 07/17/20 10:00 07/19/20 10:16 Sodium Chloride 0.9% 10 Ml Flush Syringe IV 10 ml BID ESTELA Administration Sodium Chloride 10 ml 07/17/20 03:56 Sodium Chloride 0.9% 10 Ml Flush Syringe IV PRN PRN LINE FLUSH HEART Score - HEART Score Troponin: Troponin T < 0.010 ng/mL (0.00-0.029) 07/16/20 20:47
--- NOTE | 2020-07-19 13:11 | Progress Note ---
Assessment and Plan Cultures: 07/16/2020 blood culture: no growth 07/17/2020 cervix wet prep: High number of clue cells, no trichomonas or yeast seen. 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 #Septic shock, leukemoid reaction, lactic acidosis #Acute hepatic failure: ?Toxin/med related v/s autoimmune. Also ruling out HSV induced hepatic necrosis and fulminant hepatic falure. GI following. #Acute kidney injury: nephrology following. 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 With RPR negative, unlikely to be the acute issue at this time. Recs: -continue IV ceftriaxone, renally dosed acyclovir -doxycycline stopped -f/u HSV DNA PCR on serum -f/u FTA-ABS -overall poor prognosis Kinjal Abebe MD, FACP [facility] ([facility] O: [phone] F: [phone] Subjective Date of service: 07/19/20 Principal diagnosis: Acute Liver Injury Interval history: Had CODE blue requiring CPR, now critically ill, on the vent, on multiple pressors. Objective - Exam Narrative Exam: Physical Exam: Constitutional: sedated, intubated, on the vent Head, Ears, Nose: Normocephalic, atraumatic. External ears, nose normal Eyes: Conjunctivae/corneas clear. No icterus. No ptosis. Neck: intubated Oral: intubated Cardiovascular: S1, S2 + Respiratory: AE fair bilaterally and equal GI: Soft, bowel sounds hypo Musculoskeletal: No pedal edema, no cyanosis. Skin: No rash or abscess Hem/Lymphatic: No palpable cervical or supraclavicular nodes. No lymphangitis Psych: no agitation Neurological: sedated, intubated, on the vent, exam limited - Constitutional Vitals: Vital Signs Temp Pulse Resp BP Pulse Ox 98.7 F 140 H 25 H 108/51 95 07/19/20 10:29 07/19/20 12:17 07/19/20 11:39 07/19/20 12:17 07/19/20 12:17 Temperature -Last 24 Hours Temperature 98.7 F - Labs CBC & Chem 7: 07/19/20 05:41 07/19/20 05:41 Labs: Abnormal lab results 07/18/20 07/18/20 07/18/20 Range/Units Unknown Unknown Unknown WBC (4.5-11.0) K/mm3 RBC (3.65-5.03) M/mm3 Hgb (10.1-14.3) gm/dl Hct (30.3-42.9) % MCV (79-97) fl MCH (28-32) pg RDW (13.2-15.2) % Plt Count (140-440) K/mm3 Lymph % (Auto) (13.4-35.0) % [place] % (Auto) (0.0-7.3) % Lymph # (Auto) (1.2-5.4) K/mm3 [place] # (Auto) (0.0-0.8) K/mm3 Seg Neutrophils % (40.0-70.0) % Seg Neuts % (Manual) (40.0-70.0) % Lymphocytes % (Manual) (13.4-35.0) % Seg Neutrophils # (1.8-7.7) K/mm3 Seg Neutrophils # Man (1.8-7.7) K/mm3 PT 37.3 H (12.2-14.9) Sec. INR 3.73 H (0.87-1.13) ABG pH (7.320-7.450) POC ABG pCO2 (32.0-48.0) mmHg POC ABG pO2 (83-108) mmHg ABG Hemoglobin (12.0-17.5) ABG Oxyhemoglobin (94-98) ABG Chloride (98-107) mmol/L ABG Glucose (65-95) mg/dL Carboxyhemoglobin (0.5-1.5) Sodium (137-145) mmol/L Chloride (98-107) mmol/L Carbon Dioxide (22-30) mmol/L BUN (7-17) mg/dL Creatinine (0.6-1.2) mg/dL Glucose (65-100) mg/dL POC Glucose (70-105) mg/dL Lactic Acid 4.80 H* (0.7-2.0) mmol/L Calcium (8.4-10.2) mg/dL Total Bilirubin 3.70 H (0.1-1.2) mg/dL Direct Bilirubin 3.0 H (0-0.2) mg/dL AST 2093 H (5-40) units/L ALT 822 H (7-56) units/L Ammonia (25-60) umol/L Total Protein 4.0 L (6.3-8.2) g/dL Albumin 2.5 L (3.9-5) g/dL Arterial Blood Glucose (65-95) mg/dL Arterial Blood Ionized Calcium (4.6-5.3) mg/dL Crossmatch 07/19/20 07/19/20 07/19/20 Range/Units 02:47 03:01 03:01 WBC 19.4 H (4.5-11.0) K/mm3 RBC 2.50 L (3.65-5.03) M/mm3 Hgb 8.5 L (10.1-14.3) gm/dl Hct 26.1 L (30.3-42.9) % MCV 104 H (79-97) fl MCH 34 H (28-32) pg RDW 22.3 H (13.2-15.2) % Plt Count (140-440) K/mm3 Lymph % (Auto) 3.7 L (13.4-35.0) % [place] % (Auto) (0.0-7.3) % Lymph # (Auto) 0.7 L (1.2-5.4) K/mm3 [place] # (Auto) 0.9 H (0.0-0.8) K/mm3 Seg Neutrophils % (40.0-70.0) % Seg Neuts % (Manual) (40.0-70.0) % Lymphocytes % (Manual) (13.4-35.0) % Seg Neutrophils # 17.7 H (1.8-7.7) K/mm3 Seg Neutrophils # Man (1.8-7.7) K/mm3 PT (12.2-14.9) Sec. INR (0.87-1.13) ABG pH (7.320-7.450) POC ABG pCO2 21.1 L (32.0-48.0) mmHg POC ABG pO2 61.7 L (83-108) mmHg ABG Hemoglobin 8.5 L (12.0-17.5) ABG Oxyhemoglobin 88.1 L (94-98) ABG Chloride 119.0 H (98-107) mmol/L ABG Glucose (65-95) mg/dL Carboxyhemoglobin (0.5-1.5) Sodium (137-145) mmol/L Chloride (98-107) mmol/L Carbon Dioxide (22-30) mmol/L BUN (7-17) mg/dL Creatinine (0.6-1.2) mg/dL Glucose (65-100) mg/dL POC Glucose (70-105) mg/dL Lactic Acid 5.90 H* (0.7-2.0) mmol/L Calcium (8.4-10.2) mg/dL Total Bilirubin (0.1-1.2) mg/dL Direct Bilirubin (0-0.2) mg/dL AST (5-40) units/L ALT (7-56) units/L Ammonia (25-60) umol/L Total Protein (6.3-8.2) g/dL Albumin (3.9-5) g/dL Arterial Blood Glucose (65-95) mg/dL Arterial Blood Ionized Calcium 4.0 L (4.6-5.3) mg/dL Crossmatch 07/19/20 07/19/20 07/19/20 Range/Units 03:01 03:01 03:01 WBC (4.5-11.0) K/mm3 RBC (3.65-5.03) M/mm3 Hgb (10.1-14.3) gm/dl Hct (30.3-42.9) % MCV (79-97) fl MCH (28-32) pg RDW (13.2-15.2) % Plt Count (140-440) K/mm3 Lymph % (Auto) (13.4-35.0) % [place] % (Auto) (0.0-7.3) % Lymph # (Auto) (1.2-5.4) K/mm3 [place] # (Auto) (0.0-0.8) K/mm3 Seg Neutrophils % (40.0-70.0) % Seg Neuts % (Manual) (40.0-70.0) % Lymphocytes % (Manual) (13.4-35.0) % Seg Neutrophils # (1.8-7.7) K/mm3 Seg Neutrophils # Man (1.8-7.7) K/mm3 PT 35.0 H (12.2-14.9) Sec. INR 3.45 H (0.87-1.13) ABG pH (7.320-7.450) POC ABG pCO2 (32.0-48.0) mmHg POC ABG pO2 (83-108) mmHg ABG Hemoglobin (12.0-17.5) ABG Oxyhemoglobin (94-98) ABG Chloride (98-107) mmol/L ABG Glucose (65-95) mg/dL Carboxyhemoglobin (0.5-1.5) Sodium 149 H (137-145) mmol/L Chloride 116.6 H (98-107) mmol/L Carbon Dioxide 14 L (22-30) mmol/L BUN 48 H (7-17) mg/dL Creatinine 2.5 H (0.6-1.2) mg/dL Glucose (65-100) mg/dL POC Glucose (70-105) mg/dL Lactic Acid (0.7-2.0) mmol/L Calcium 7.4 L D (8.4-10.2) mg/dL Total Bilirubin 3.70 H (0.1-1.2) mg/dL Direct Bilirubin (0-0.2) mg/dL AST 1730 H (5-40) units/L ALT 751 H (7-56) units/L Ammonia 126.0 H (25-60) umol/L Total Protein 4.3 L (6.3-8.2) g/dL Albumin 2.4 L (3.9-5) g/dL Arterial Blood Glucose (65-95) mg/dL Arterial Blood Ionized Calcium (4.6-5.3) mg/dL Crossmatch 07/19/20 07/19/20 07/19/20 Range/Units 05:25 05:41 05:41 WBC 15.9 H (4.5-11.0) K/mm3 RBC 1.80 L (3.65-5.03) M/mm3 Hgb 6.2 L (10.1-14.3) gm/dl Hct 19.7 L* D (30.3-42.9) % MCV 109 H (79-97) fl MCH 35 H (28-32) pg RDW 22.7 H (13.2-15.2) % Plt Count 99 L (140-440) K/mm3 Lymph % (Auto) 9.7 L (13.4-35.0) % [place] % (Auto) 8.3 H (0.0-7.3) % Lymph # (Auto) (1.2-5.4) K/mm3 [place] # (Auto) 1.3 H (0.0-0.8) K/mm3 Seg Neutrophils % 81.2 H (40.0-70.0) % Seg Neuts % (Manual) 85.0 H (40.0-70.0) % Lymphocytes % (Manual) 12.0 L (13.4-35.0) % Seg Neutrophils # 12.9 H (1.8-7.7) K/mm3 Seg Neutrophils # Man 13.5 H (1.8-7.7) K/mm3 PT 51.8 H (12.2-14.9) Sec. INR 5.63 H* (0.87-1.13) ABG pH (7.320-7.450) POC ABG pCO2 (32.0-48.0) mmHg POC ABG pO2 (83-108) mmHg ABG Hemoglobin (12.0-17.5) ABG Oxyhemoglobin (94-98) ABG Chloride (98-107) mmol/L ABG Glucose (65-95) mg/dL Carboxyhemoglobin (0.5-1.5) Sodium (137-145) mmol/L Chloride (98-107) mmol/L Carbon Dioxide (22-30) mmol/L BUN (7-17) mg/dL Creatinine (0.6-1.2) mg/dL Glucose (65-100) mg/dL POC Glucose 43 L (70-105) mg/dL Lactic Acid (0.7-2.0) mmol/L Calcium (8.4-10.2) mg/dL Total Bilirubin (0.1-1.2) mg/dL Direct Bilirubin (0-0.2) mg/dL AST (5-40) units/L ALT (7-56) units/L Ammonia (25-60) umol/L Total Protein (6.3-8.2) g/dL Albumin (3.9-5) g/dL Arterial Blood Glucose (65-95) mg/dL Arterial Blood Ionized Calcium (4.6-5.3) mg/dL Crossmatch 07/19/20 07/19/20 07/19/20 Range/Units 05:41 05:41 05:41 WBC (4.5-11.0) K/mm3 RBC (3.65-5.03) M/mm3 Hgb (10.1-14.3) gm/dl Hct (30.3-42.9) % MCV (79-97) fl MCH (28-32) pg RDW (13.2-15.2) % Plt Count (140-440) K/mm3 Lymph % (Auto) (13.4-35.0) % [place] % (Auto) (0.0-7.3) % Lymph # (Auto) (1.2-5.4) K/mm3 [place] # (Auto) (0.0-0.8) K/mm3 Seg Neutrophils % (40.0-70.0) % Seg Neuts % (Manual) (40.0-70.0) % Lymphocytes % (Manual) (13.4-35.0) % Seg Neutrophils # (1.8-7.7) K/mm3 Seg Neutrophils # Man (1.8-7.7) K/mm3 PT (12.2-14.9) Sec. INR (0.87-1.13) ABG pH (7.320-7.450) POC ABG pCO2 (32.0-48.0) mmHg POC ABG pO2 (83-108) mmHg ABG Hemoglobin (12.0-17.5) ABG Oxyhemoglobin (94-98) ABG Chloride (98-107) mmol/L ABG Glucose (65-95) mg/dL Carboxyhemoglobin (0.5-1.5) Sodium 150 H (137-145) mmol/L Chloride 117.6 H (98-107) mmol/L Carbon Dioxide 10 L (22-30) mmol/L BUN 50 H (7-17) mg/dL Creatinine 2.8 H (0.6-1.2) mg/dL Glucose 308 H (65-100) mg/dL POC Glucose (70-105) mg/dL Lactic Acid 12.00 H* (0.7-2.0) mmol/L Calcium 6.8 L (8.4-10.2) mg/dL Total Bilirubin 2.20 H (0.1-1.2) mg/dL Direct Bilirubin (0-0.2) mg/dL AST 1224 H (5-40) units/L ALT 484 H (7-56) units/L Ammonia 96.0 H (25-60) umol/L Total Protein 2.8 L D (6.3-8.2) g/dL Albumin 1.6 L (3.9-5) g/dL Arterial Blood Glucose (65-95) mg/dL Arterial Blood Ionized Calcium (4.6-5.3) mg/dL Crossmatch 07/19/20 07/19/20 07/19/20 Range/Units 05:53 06:14 07:35 WBC (4.5-11.0) K/mm3 RBC (3.65-5.03) M/mm3 Hgb (10.1-14.3) gm/dl Hct (30.3-42.9) % MCV (79-97) fl MCH (28-32) pg RDW (13.2-15.2) % Plt Count (140-440) K/mm3 Lymph % (Auto) (13.4-35.0) % [place] % (Auto) (0.0-7.3) % Lymph # (Auto) (1.2-5.4) K/mm3 [place] # (Auto) (0.0-0.8) K/mm3 Seg Neutrophils % (40.0-70.0) % Seg Neuts % (Manual) (40.0-70.0) % Lymphocytes % (Manual) (13.4-35.0) % Seg Neutrophils # (1.8-7.7) K/mm3 Seg Neutrophils # Man (1.8-7.7) K/mm3 PT (12.2-14.9) Sec. INR (0.87-1.13) ABG pH 6.904 L (7.320-7.450) POC ABG pCO2 50.8 H (32.0-48.0) mmHg POC ABG pO2 140.1 H (83-108) mmHg ABG Hemoglobin 7.9 L (12.0-17.5) ABG Oxyhemoglobin (94-98) ABG Chloride 120.0 H (98-107) mmol/L ABG Glucose 220 H (65-95) mg/dL Carboxyhemoglobin 1.7 H (0.5-1.5) Sodium (137-145) mmol/L Chloride (98-107) mmol/L Carbon Dioxide (22-30) mmol/L BUN (7-17) mg/dL Creatinine (0.6-1.2) mg/dL Glucose (65-100) mg/dL POC Glucose 186 H (70-105) mg/dL Lactic Acid (0.7-2.0) mmol/L Calcium (8.4-10.2) mg/dL Total Bilirubin (0.1-1.2) mg/dL Direct Bilirubin (0-0.2) mg/dL AST (5-40) units/L ALT (7-56) units/L Ammonia (25-60) umol/L Total Protein (6.3-8.2) g/dL Albumin (3.9-5) g/dL Arterial Blood Glucose 220 H (65-95) mg/dL Arterial Blood Ionized Calcium 4.1 L (4.6-5.3) mg/dL Crossmatch See Detail 07/19/20 Range/Units 07:35 WBC (4.5-11.0) K/mm3 RBC (3.65-5.03) M/mm3 Hgb (10.1-14.3) gm/dl Hct (30.3-42.9) % MCV (79-97) fl MCH (28-32) pg RDW (13.2-15.2) % Plt Count (140-440) K/mm3 Lymph % (Auto) (13.4-35.0) % [place] % (Auto) (0.0-7.3) % Lymph # (Auto) (1.2-5.4) K/mm3 [place] # (Auto) (0.0-0.8) K/mm3 Seg Neutrophils % (40.0-70.0) % Seg Neuts % (Manual) (40.0-70.0) % Lymphocytes % (Manual) (13.4-35.0) % Seg Neutrophils # (1.8-7.7) K/mm3 Seg Neutrophils # Man (1.8-7.7) K/mm3 PT (12.2-14.9) Sec. INR (0.87-1.13) ABG pH (7.320-7.450) POC ABG pCO2 (32.0-48.0) mmHg POC ABG pO2 (83-108) mmHg ABG Hemoglobin (12.0-17.5) ABG Oxyhemoglobin (94-98) ABG Chloride (98-107) mmol/L ABG Glucose (65-95) mg/dL Carboxyhemoglobin (0.5-1.5) Sodium (137-145) mmol/L Chloride (98-107) mmol/L Carbon Dioxide (22-30) mmol/L BUN (7-17) mg/dL Creatinine (0.6-1.2) mg/dL Glucose (65-100) mg/dL POC Glucose (70-105) mg/dL Lactic Acid 8.50 H* (0.7-2.0) mmol/L Calcium (8.4-10.2) mg/dL Total Bilirubin (0.1-1.2) mg/dL Direct Bilirubin (0-0.2) mg/dL AST (5-40) units/L ALT (7-56) units/L Ammonia (25-60) umol/L Total Protein (6.3-8.2) g/dL Albumin (3.9-5) g/dL Arterial Blood Glucose (65-95) mg/dL Arterial Blood Ionized Calcium (4.6-5.3) mg/dL Crossmatch
--- NOTE | 2020-07-19 16:40 | Cat Scan Report ---
CT CHEST, ABDOMEN AND PELVIS WITHOUT CONTRAST HISTORY: Tachypnea, tachycardia, CODE BLUE COMPARISON: CT abdomen and pelvis on 07/16/2020 TECHNIQUE: Routine chest, abdominal and pelvic CT exam performed without contrast. Lack of intraveno us contrast limits evaluation of the vascular and solid organs.. All CT scans at this location are pe rformed using CT dose reduction for ALARA by means of automated exposure control. FINDINGS: CT CHEST: Lungs: There has developed small to moderate bilateral pleural effusions. There is also nearly diffus e bilateral ground glass opacity with patchy areas of airspace disease. Trachea and Bronchi: No significant abnormality. Heart and Pericardium: No significant abnormality. Vasculature: No significant abnormality. Lymphatics: No lymphadenopathy. CT ABDOMEN: Liver: Decreased attenuation consistent with hepatic steatosis. Biliary: No significant abnormality. Spleen: No significant abnormality. Unenlarged. Pancreas: No significant abnormality. Adrenals: No significant abnormality. Kidneys: No significant abnormality. Lymphatics: No lymphadenopathy. Vasculature: No significant abnormality. Bowel/Peritoneum: Worsening diffuse colonic wall thickening consistent with colitis. Small amount of free fluid in the abdomen. No free air or obstruction. The tip of the NG tube is in the body the stom ach. CT PELVIC: : Kenney catheter in the urinary bladder. Lymphatics: No lymphadenopathy. Osseous Structures: No aggressive appearing osseous lesions. Additional Findings: None IMPRESSION: 1. Interval development of moderate bilateral pleural effusions and diffuse bilateral patchy areas of groundglass opacity and airspace disease that could reflect alveolar edema or pneumonia. 2. Worsening diffuse colonic wall thickening suggesting worsening colitis. No obstruction or free air . Signer Name: Heath Tolbert MD Signed: 07/19/2020 4:36 PM Workstation Name: [id number]
--- NOTE | 2020-07-19 16:50 | Cat Scan Report ---
CT BRAIN: 07/19/2020 INDICATION / CLINICAL INFORMATION: code blue/hypocoaguable. COMPARISON: None available. FINDINGS: BRAIN/INTRACRANIAL STRUCTURES: Unenhanced CT images of the brain were obtained. No previous studies a re available here for comparison. There is been diffuse loss of sulcal definition, associated with decreased chu-white differentiation diffusely throughout the cerebral hemispheres and cerebellum. Ventricular system is collapsed. The a ppearance is most consistent with diffuse cerebral edema and mass effect. Some downward displacement of the cerebellar tonsils is noted, also corresponding to cerebral edema and increased intracranial p ressure. There is no evidence of rectal hemorrhage. There are no abnormal extra-axial fluid collections. EXTRACRANIAL STRUCTURES: Unremarkable. IMPRESSION: Findings consistent with diffuse cerebral edema . . This pattern is generally associated with global hypoxia or hypoperfusion. All CT scans at this location are performed using dose reduction to ALARA by means of automated expos ure control. Signer Name: Jonh Acosta MD Signed: 07/19/2020 4:46 PM Workstation Name: [id number]
[2020-07-19 19:40] LABS: Hematocrit 26.8 % (30.3-42.9); Mean Corpuscular HGB Conc 34 % (30-34); Mean Corpuscular Volume 100 fl (79-97); Platelet Count 104 K/mm3 (140-440); Red Blood Count 2.68 M/mm3 (3.65-5.03)
[2020-07-19 19:48] LABS: Red Cell Distribution Width 20.2 % (13.2-15.2)
[2020-07-19 19:52] LABS: INR 3.25 (0.87-1.13)
[2020-07-19 19:59] LABS: Albumin 1.9 g/dL (3.9-5); Calcium 6.5 mg/dL (8.4-10.2)
--- NOTE | 2020-07-19 21:22 | Progress Note ---
Assessment and Plan - Patient Problems (1) Severe sepsis with septic shock Current Visit: Yes Status: Acute Plan to address problem: Sepsis protocol, IV pressor support, IV antibiotic therapy, IV fluid resuscitation therapy, maintain mean arterial pressure greater than or equal to 65, monitor urine output every shift, serial lactic acid level The high probability of a clinically significant, sudden or life threatening deterioration of the [neuro, cardiac, renal, pulmonary] system(s) required my full and direct attention, intervention and personal management. The aggregate critical care time was [90] minutes. This time is in addition to time spent performing reported procedures but includes the following: [x] Data Review and interpretation [x] Patient assessment and monitoring of vital signs [x] Documentation [x] Medication orders and management (2) Acute respiratory failure Current Visit: Yes Status: Acute Qualifiers: Respiratory failure complication: hypoxia Qualified Code(s): J96.01 - Acute respiratory failure with hypoxia Plan to address problem: Patient intubated and placed on ventilatory support overnight. Wean vent as tolerated, pulmonary team consulted, spontaneous breathing trial daily, sedation holiday, supportive care. (3) Acute liver failure Current Visit: Yes Status: Acute Plan to address problem: Supportive care, GI team consulted. Pt has poor prognosis, and currently unstable for transfer. (4) Metabolic acidosis Current Visit: Yes Status: Acute Plan to address problem: BMP, IV bicarbonate therapy, repeat BMP (5) UTI (urinary tract infection) Current Visit: Yes Status: Acute Qualifiers: Encounter type: initial encounter Plan to address problem: IV antibiotic therapy, supportive care. (6) DVT prophylaxis Current Visit: Yes Status: Acute Plan to address problem: SCD to bilateral lower extremities while in bed (7) Acute kidney injury (RINA) with acute tubular necrosis (ATN) Current Visit: Yes Status: Acute Plan to address problem: Nephrology team consulted, IV fluid resuscitation therapy, monitor urine output every shift, monitor fluid balance, supportive care. (8) Cardiac arrest Current Visit: Yes Status: Acute Plan to address problem: Patient experienced cardiac arrest overnight. Patient treated with ACLS protocol with eventual return of perfusing cardiac rhythm. Patient has poor prognosis. (9) Toxic metabolic encephalopathy Current Visit: Yes Status: Acute Plan to address problem: CT scan head, when medically stable, supportive care, continue medical management. Suspect anoxic brain injury. (10) Advance care planning Current Visit: Yes Status: Acute Plan to address problem: Disease education conducted, patient is full code, patient prognosis discussed with patient mother Tete Gao., patient mother informed the patient shows no sign of brain function and is on multiple medications to maintain her current status. Patient mother informed that patient has experienced nonsurvivable physiologic insult. Patient family acknowledges prognosis. Patient family informed of care plan. +30 minutes. 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 Patient is critically ill and has very poor prognosis. Patient experienced cardiac arrest overnight. Patient currently intubated and on ventilatory support. Patient has poor prognosis. Patient medically unstable for transfer at this time. Patient borderline hypotensive on IV pressor support. Hospitalist Physical - Constitutional Vitals: Temp Pulse Resp BP Pulse Ox 98.7 F 121 H 25 H 78/47 100 07/19/20 10:29 07/19/20 20:45 07/19/20 20:45 07/19/20 20:45 07/19/20 20:45 General appearance: Present: severe distress, other (Lethargic not quite encephalopathic alert appears to be tired. Patient states she is just fatigued.) - EENT Eyes: Present: mydriasis - Neck Neck: Present: supple - Respiratory Respiratory effort: labored Respiratory: bilateral: diminished - Cardiovascular Rhythm: regular Heart Sounds: Present: S1 & S2 - Extremities Extremity abnormal: edema Peripheral Pulses: within normal limits - Abdominal General gastrointestinal: soft, non-tender, non-distended - Integumentary Integumentary: Present: dry, clammy, decreased turgor - Psychiatric Psychiatric: no appropriate mood/affect, no intact judgment & insight, no memory intact - Neurologic Neurologic: no CNII-XII intact, focal deficits, no moves all extremities, no gait normal HEART Score - HEART Score Troponin: Troponin T < 0.010 ng/mL (0.00-0.029) 07/16/20 20:47 Results - Labs CBC & Chem 7: 07/19/20 Unknown 07/19/20 Unknown Labs: Laboratory Last Values WBC 26.7 K/mm3 (4.5-11.0) H 07/19/20 Unknown RBC 2.68 M/mm3 (3.65-5.03) L 07/19/20 Unknown Hgb 9.0 gm/dl (10.1-14.3) L 07/19/20 Unknown Hct 26.8 % (30.3-42.9) L D 07/19/20 Unknown MCV 100 fl (79-97) H 07/19/20 Unknown MCH 34 pg (28-32) H 07/19/20 Unknown MCHC 34 % (30-34) 07/19/20 Unknown RDW 20.2 % (13.2-15.2) H 07/19/20 Unknown Plt Count 104 K/mm3 (140-440) L 07/19/20 Unknown Lymph % (Auto) 9.7 % (13.4-35.0) L 07/19/20 05:41 [place] % (Auto) 8.3 % (0.0-7.3) H 07/19/20 05:41 Eos % (Auto) 0.8 % (0.0-4.3) 07/19/20 05:41 Baso % (Auto) 0.0 % (0.0-1.8) 07/19/20 05:41 Lymph # (Auto) 1.5 K/mm3 (1.2-5.4) 07/19/20 05:41 [place] # (Auto) 1.3 K/mm3 (0.0-0.8) H 07/19/20 05:41 Eos # (Auto) 0.1 K/mm3 (0.0-0.4) 07/19/20 05:41 Baso # (Auto) 0.0 K/mm3 (0.0-0.1) 07/19/20 05:41 Add Manual Diff Complete 07/19/20 05:41 Total Counted 100 07/19/20 05:41 Band Neutrophils % 5.0 % 07/16/20 20:47 Seg Neutrophils % 81.2 % (40.0-70.0) H 07/19/20 05:41 Seg Neuts % (Manual) 85.0 % (40.0-70.0) H 07/19/20 05:41 Lymphocytes % (Manual) 12.0 % (13.4-35.0) L 07/19/20 05:41 Monocytes % (Manual) 1.0 % (0.0-7.3) 07/19/20 05:41 Metamyelocytes % 1.0 % 07/19/20 05:41 Myelocytes % 1.0 % 07/19/20 05:41 Nucleated RBC % Not Reportable 07/19/20 05:41 Seg Neutrophils # 12.9 K/mm3 (1.8-7.7) H 07/19/20 05:41 Seg Neutrophils # Man 13.5 K/mm3 (1.8-7.7) H 07/19/20 05:41 Band Neutrophils # 0.0 K/mm3 07/19/20 05:41 Lymphocytes # (Manual) 1.9 K/mm3 (1.2-5.4) 07/19/20 05:41 Abs React Lymphs (Man) 0.0 K/mm3 07/19/20 05:41 Monocytes # (Manual) 0.2 K/mm3 (0.0-0.8) 07/19/20 05:41 Eosinophils # (Manual) 0.0 K/mm3 (0.0-0.4) 07/19/20 05:41 Basophils # (Manual) 0.0 K/mm3 (0.0-0.1) 07/19/20 05:41 Metamyelocytes # 0.2 K/mm3 07/19/20 05:41 Myelocytes # 0.2 K/mm3 07/19/20 05:41 Promyelocytes # 0.0 K/mm3 07/19/20 05:41 Blast Cells # 0.0 K/mm3 07/19/20 05:41 Pathologist Review 07/16/20 20:47 WBC Morphology Not Reportable 07/19/20 05:41 Hypersegmented Neuts Not Reportable 07/19/20 05:41 Hyposegmented Neuts Not Reportable 07/19/20 05:41 Hypogranular Neuts Not Reportable 07/19/20 05:41 Smudge Cells Not Reportable 07/19/20 05:41 Toxic Granulation Not Reportable 07/19/20 05:41 Toxic Vacuolation Not Reportable 07/19/20 05:41 Dohle Bodies Not Reportable 07/19/20 05:41 Pelger-Huet Anomaly Not Reportable 07/19/20 05:41 Fede Rods Not Reportable 07/19/20 05:41 Platelet Estimate Consistent w auto 07/19/20 05:41 Clumped Platelets Not Reportable 07/19/20 05:41 Plt Clumps, EDTA Not Reportable 07/19/20 05:41 Large Platelets Not Reportable 07/19/20 05:41 Giant Platelets Not Reportable 07/19/20 05:41 Platelet Satelliting Not Reportable 07/19/20 05:41 Plt Morphology Comment Not Reportable 07/19/20 05:41 RBC Morphology Not Reportable 07/19/20 05:41 Dimorphic RBCs Not Reportable 07/19/20 05:41 Polychromasia Not Reportable 07/19/20 05:41 Hypochromasia Few 07/19/20 05:41 Poikilocytosis Not Reportable 07/19/20 05:41 Anisocytosis 1+ 07/19/20 05:41 Microcytosis Not Reportable 07/19/20 05:41 Macrocytosis Not Reportable 07/19/20 05:41 Spherocytes Not Reportable 07/19/20 05:41 Pappenheimer Bodies Not Reportable 07/19/20 05:41 Sickle Cells Not Reportable 07/19/20 05:41 Target Cells Not Reportable 07/19/20 05:41 Tear Drop Cells Not Reportable 07/19/20 05:41 Ovalocytes Not Reportable 07/19/20 05:41 Helmet Cells Not Reportable 07/19/20 05:41 Donaldson-Davis Bodies Not Reportable 07/19/20 05:41 [place] Rings Not Reportable 07/19/20 05:41 [place] Cells Not Reportable 07/19/20 05:41 Bite Cells Not Reportable 07/19/20 05:41 Crenated Cell Not Reportable 07/19/20 05:41 Elliptocytes Not Reportable 07/19/20 05:41 Acanthocytes (Spur) Not Reportable 07/19/20 05:41 Rouleaux Not Reportable 07/19/20 05:41 Hemoglobin C Crystals Not Reportable 07/19/20 05:41 Schistocytes Not Reportable 07/19/20 05:41 Malaria parasites Not Reportable 07/19/20 05:41 Richard Bodies Not Reportable 07/19/20 05:41 Hem Pathologist Commnt No 07/19/20 05:41 PT 33.4 Sec. (12.2-14.9) H 07/19/20 Unknown INR 3.25 (0.87-1.13) H 07/19/20 Unknown ABG pH 6.904 (7.320-7.450) L 07/19/20 06:14 POC ABG pCO2 50.8 mmHg (32.0-48.0) H 07/19/20 06:14 POC ABG pO2 140.1 mmHg (83-108) H 07/19/20 06:14 POC ABG HCO3 9.8 07/19/20 06:14 POC ABG Base Excess -21.7 07/19/20 06:14 ABG Hemoglobin 7.9 (12.0-17.5) L 07/19/20 06:14 ABG Oxyhemoglobin 94.5 (94-98) 07/19/20 06:14 ABG Methemoglobin 0.1 (0.0-1.5) 07/19/20 06:14 ABG Sodium 144.2 mmol/L (136.0-145.0) 07/19/20 06:14 ABG Potassium 3.4 mmol/L (3.40-4.50) 07/19/20 06:14 ABG Chloride 120.0 mmol/L (98-107) H 07/19/20 06:14 ABG Glucose 220 mg/dL (65-95) H 07/19/20 06:14 VBG pH 7.085 (7.320-7.420) L* 07/17/20 01:46 Carboxyhemoglobin 1.7 (0.5-1.5) H 07/19/20 06:14 FiO2 100 07/19/20 06:14 Sodium 148 mmol/L (137-145) H 07/19/20 Unknown Potassium 2.6 mmol/L (3.6-5.0) L* D 07/19/20 Unknown Chloride 117.3 mmol/L (98-107) H 07/19/20 Unknown Carbon Dioxide 18 mmol/L (22-30) L D 07/19/20 Unknown Anion Gap 15 mmol/L 07/19/20 Unknown BUN 48 mg/dL (7-17) H 07/19/20 Unknown Creatinine 2.4 mg/dL (0.6-1.2) H 07/19/20 Unknown Estimated GFR 29 ml/min 07/19/20 Unknown BUN/Creatinine Ratio 20 % 07/19/20 Unknown Glucose 207 mg/dL (65-100) H 07/19/20 Unknown POC Glucose 186 mg/dL (70-105) H 07/19/20 05:53 Lactic Acid 3.90 mmol/L (0.7-2.0) H* 07/19/20 Unknown Calcium 6.5 mg/dL (8.4-10.2) L 07/19/20 Unknown Magnesium 2.10 mg/dL (1.7-2.3) 07/16/20 20:47 Total Bilirubin 3.80 mg/dL (0.1-1.2) H 07/19/20 Unknown Direct Bilirubin 3.0 mg/dL (0-0.2) H 07/18/20 Unknown Indirect Bilirubin 0.7 mg/dL 07/18/20 Unknown AST 1228 units/L (5-40) H 07/19/20 Unknown ALT 516 units/L (7-56) H 07/19/20 Unknown Alkaline Phosphatase 113 units/L (35-129) 07/19/20 Unknown Ammonia 96.0 umol/L (25-60) H 07/19/20 05:41 Total Creatine Kinase 332 units/L (30-135) H 07/17/20 09:23 Troponin T < 0.010 ng/mL (0.00-0.029) 07/16/20 20:47 Total Protein 3.6 g/dL (6.3-8.2) L D 07/19/20 Unknown Albumin 1.9 g/dL (3.9-5) L 07/19/20 Unknown Albumin/Globulin Ratio 1.1 % 07/19/20 Unknown Lipase 14 units/L (13-60) 07/17/20 01:46 TSH 0.354 mlU/mL (0.270-4.200) 07/16/20 20:47 HCG, Qual Negative (Negative) 07/19/20 07:35 Arterial Blood Glucose 220 mg/dL (65-95) H 07/19/20 06:14 Arterial Blood Ionized Calcium 4.1 mg/dL (4.6-5.3) L 07/19/20 06:14 Urine Color Red (Yellow) 07/16/20 03:54 Urine Turbidity Turbid (Clear) 07/16/20 03:54 Urine pH 5.0 (5.0-7.0) 07/16/20 03:54 Ur Specific [place] 1.013 (1.003-1.030) 07/16/20 03:54 Urine Protein >500 mg/dL (Negative) 07/16/20 03:54 Urine Glucose (UA) Neg mg/dL (Negative) 07/16/20 03:54 Urine Ketones Tr mg/dL (Negative) 07/16/20 03:54 Urine Blood Lg (Negative) 07/16/20 03:54 Urine Nitrite Neg (Negative) 07/16/20 03:54 Urine Bilirubin Neg (Negative) 07/16/20 03:54 Urine Urobilinogen < 2.0 mg/dL (<2.0) 07/16/20 03:54 Ur Leukocyte Esterase Sm (Negative) 07/16/20 03:54 Urine WBC (Auto) 57.0 /HPF (0.0-6.0) H 07/16/20 03:54 Urine RBC (Auto) 35.0 /HPF (0.0-6.0) 07/16/20 03:54 U Epithel Cells (Auto) 23.0 /HPF (0-13.0) H 07/16/20 03:54 Urine Bacteria (Auto) 1+ /HPF (Negative) 07/16/20 03:54 Urine WBC Clumps 3+ /HPF 07/16/20 03:54 Urine Mucus Few /HPF 07/16/20 03:54 Acetaminophen 5.0 ug/mL (10.0-30.0) L 07/17/20 09:23 Syphilis IgG Antibody Reactive (NonReactive) A 07/17/20 11:08 RPR Titer Nr 07/17/20 11:08 T.pallidum Ab (FTA-ABS) Nonreactive (Nonreactive) 07/17/20 11:08 C.trachomatis DNA (SDA) Not detected (Not Detected) 07/17/20 02:25 Hepatitis A IgM Ab Non-reactive (NonReactive) 07/17/20 11:08 Hep Bs Antigen Non-reactive (Negative) 07/17/20 11:08 Hep B Core IgM Ab Non-reactive (NonReactive) 07/17/20 11:08 Hepatitis C Antibody Non-reactive (NonReactive) 07/17/20 11:08 HIV 1&2 Antibody Rapid Non react (Non React) 07/17/20 11:08 HIV P24 Antigen Non react (Non React) 07/17/20 11:08 N.gonorrhoeae DNA (SDA) Not detected (Not Detected) 07/17/20 02:25 Blood Type O POSITIVE 07/19/20 07:35 Antibody Screen Negative 07/19/20 07:35 Crossmatch See Detail 07/19/20 07:35 Microbiology: Microbiology 07/16/20 03:54 Urine,Clean Catch Urine Culture - Preliminary 07/16/20 23:00 Peripheral/Venous Blood Culture - Preliminary NO GROWTH AFTER 48 HOURS 07/16/20 23:06 Peripheral/Venous Blood Culture - Preliminary NO GROWTH AFTER 48 HOURS [place]/IV: IV Catheter Type [Right Triple Lumen Cath Femoral] IV Catheter Type [Right Hand] Peripheral IV IV Catheter Type [Left Hand] INT / Saline Lock IV Catheter Type [Acetadote ( Peripheral IV Acetylcysteine IV) 7,500 mg In D5w 1,000 ml @ 62.5 mls/hr IV ONCE ONE Rx#:[id number]] IV Catheter Type [Sodium Triple Lumen Cath Bicarbonate 50 Meq In NaCl 0.9 % 1000 ml 1,000 ml @ 100 mls/ hr IV DIRECT ESTELA Rx#: [id number]] Active Medications - Current Medications Current Medications: Generic Name Dose Route Start Last Admin Trade Name Freq PRN Reason Stop Dose Admin Norepinephrine 4 mg in 250 mls @ 7.5 mls/hr 07/17/20 03:00 07/19/20 08:19 Levophed Drip 4 Mg/Ns 250 Ml IV 07/19/20 22:00 30 mcg/min TITR ESTELA 112.5 mls/hr Titration Protocol 2 MCG/MIN Acyclovir 370 mg/ Sodium 107.4 mls @ 100 mls/hr 07/17/20 12:00 07/19/20 10:15 Chloride IV 100 mls/hr Q12HR ESTELA Administration Protocol Ceftriaxone Sodium 1 gm in 50 mls @ 100 mls/hr 07/17/20 12:00 07/19/20 10:15 Rocephin/Ns 1 Gm/50 Ml IV 100 mls/hr Q24HR ESTELA Administration Protocol Thiamine HCl 100 mg/ Sodium 51 mls @ 100 mls/hr 07/18/20 10:00 07/19/20 10:16 Chloride IV 100 mls/hr QDAY ESTELA Administration Folic Acid 1 mg/ Sodium 50.2 mls @ 200.8 mls/hr 07/18/20 10:00 07/19/20 10:16 Chloride IV 200.8 mls/hr QDAY ESTELA Administration Pantoprazole Sodium 80 mg/ 100 mls @ 10 mls/hr 07/19/20 06:00 07/19/20 06:02 Sodium Chloride IV 8 mg/hr DIRECT ESTELA 10 mls/hr Administration 8 MG/HR Dextrose 1,000 mls @ 125 mls/hr 07/19/20 06:00 07/19/20 05:54 D10w IV 125 mls/hr DIRECT ESTELA Administration Dopamine HCl/Dextrose 800 mg in 250 mls @ 2.807 mls/hr 07/19/20 05:45 07/19/20 05:55 Intropin Drip 800 Mg/D5w 250 Ml IV 20 mcg/kg/min TITR ESTELA 28.066 mls/hr Administration Protocol 2 MCG/KG/MIN Vasopressin 20 unit/ Sodium 101 mls @ 9.09 mls/hr 07/19/20 10:00 07/19/20 20:43 Chloride IV 0.03 units/min TITR ESTELA 9.09 mls/hr Administration Protocol 0.03 UNITS/MIN Sodium Bicarbonate 75 meq/ 1,075 mls @ 150 mls/hr 07/19/20 11:00 Dextrose IV DIRECT ESTELA Potassium Chloride 20 meq in 100 mls @ 100 mls/hr 07/19/20 21:00 Kcl 20meq/100ml IV 07/19/20 22:59 Q1H ESTELA Norepinephrine 8 mg/ Sodium 250 mls @ 3.75 mls/hr 07/19/20 21:00 Chloride IV TITR ESTELA Protocol 2 MCG/MIN Magnesium Hydroxide 30 ml 07/17/20 03:56 Magnesium Hydroxide (Mom) Oral Liqd Udc PO Q4H PRN Constipation Morphine Sulfate 2 mg 07/17/20 03:56 07/18/20 20:00 Morphine 2 Mg/1 Ml Inj IV 2 mg Q4H PRN Administration Pain, Moderate (4-6) Ondansetron HCl 4 mg 07/17/20 03:56 07/18/20 20:00 Ondansetron 4 Mg/2 Ml Inj IV 4 mg Q8H PRN Administration Nausea And Vomiting Sodium Chloride 10 ml 07/17/20 10:00 07/19/20 10:16 Sodium Chloride 0.9% 10 Ml Flush Syringe IV 10 ml BID ESTELA Administration Sodium Chloride 10 ml 07/17/20 03:56 Sodium Chloride 0.9% 10 Ml Flush Syringe IV PRN PRN LINE FLUSH
[2020-07-19] MEDS: NORepinephrine 8 MG in SODIUM CHLORIDE 0.9% 250ML 242 ML IV SCH (21:24)
[2020-07-19] MEDS: POTASSIUM CHLORIDE 20 MEQ 20 MEQ/100 ML BAG IV SCH ×2 (21:25→23:13)
[2020-07-19] MEDS ORDERED: SODIUM CHLORIDE 0.9% 250ML 250 ML IV ONE (21:50)
[2020-07-19] MEDS ORDERED: EPINEPHrine 1 MG/10 ML SYRINGE ONE (22:03)
[2020-07-19 22:15] LABS: Anisocytosis 1+; Band Neutrophils # (Manual) 5.3 K/mm3; Total Cells Counted 100
[2020-07-19 22:19] LABS: Platelet Estimate Consistent w Auto
[2020-07-19] MEDS: SODIUM BICARBONATE 75 MEQ in DEXTROSE 5% IN WATER 1,000 ML IV SCH (22:36)
[2020-07-20] MEDS: ACYCLOVIR IV SCH ×3 (00:12→23:00)
[2020-07-20] MEDS: SODIUM CHLORIDE 0.9% IV SCH ×3 (00:12→23:00)
[2020-07-20] MEDS: NORepinephrine 8 MG in SODIUM CHLORIDE 0.9% 250ML 242 ML IV SCH ×2 (02:15→20:50)
[2020-07-20] MEDS: VASOPRESSIN 20 UNIT in SODIUM CHLORIDE 0.9% 100 ML IV SCH (05:10)
[2020-07-20] MEDS: SODIUM BICARBONATE 75 MEQ in DEXTROSE 5% IN WATER 1,000 ML IV SCH (05:16)
--- NOTE | 2020-07-20 09:52 | Progress Note ---
Assessment and Plan Stat ABG now Ordered AM labs to see if electrolytes need to be corrected. Can Epi to help maintain map of 65 or greater No sedation Consult neurology given cerebral edema. Not a candidate for manitol given labile bp. cOULD CONSIDER HYPERTONIC SALINE BUT WOULD LIKE NEURO'S OPINION, pending abg may try hyperventilation given underlying liver injury. Very, very poor prognosis. CT chest changes are likely aspiration with volume overload. CCT 31 minutes. Subjective Date of service: 07/20/20 Principal diagnosis: Acute Liver Injury Interval history: Reviewed imaging reports from yesterday. Head CT shows diffuse edema, CT chest shows volume overload and possible aspiration. Abdomen suggests worsening colitis. Remains comatose on no sedation. Remains hypotensive despite multiple pressor therapy. Weaned to 40% FiO2 but no Blood gas drawn this am. Objective Vital Signs - 12hr 07/19/20 07/19/20 07/19/20 22:00 22:15 22:30 Pulse Rate 127 H 125 H 124 H Respiratory 25 H 25 H 25 H Rate Blood Pressure 82/50 82/50 89/50 O2 Sat by Pulse 99 98 74 L Oximetry 07/19/20 07/19/20 07/19/20 22:45 23:00 23:15 Pulse Rate 124 H 124 H 124 H Respiratory 25 H 25 H 25 H Rate Blood Pressure 89/50 85/55 85/55 O2 Sat by Pulse 98 98 98 Oximetry 07/19/20 07/19/20 07/19/20 23:30 23:45 23:57 Pulse Rate 125 H 125 H 125 H Respiratory 25 H 25 H 25 H Rate Blood Pressure 91/50 91/50 91/50 O2 Sat by Pulse 98 98 98 Oximetry 07/20/20 07/20/20 07/20/20 00:00 00:15 00:30 Pulse Rate 125 H 125 H 126 H Respiratory 25 H 25 H 25 H Rate Blood Pressure 90/53 93/50 O2 Sat by Pulse 98 98 98 Oximetry 07/20/20 07/20/20 07/20/20 00:45 01:00 01:15 Pulse Rate 126 H 127 H 126 H Respiratory 25 H 25 H 22 Rate Blood Pressure 93/50 94/51 94/51 O2 Sat by Pulse 98 97 96 Oximetry 07/20/20 07/20/20 07/20/20 01:30 01:45 02:00 Pulse Rate 126 H 125 H 124 H Respiratory 25 H 25 H 25 H Rate Blood Pressure 94/49 94/49 86/45 O2 Sat by Pulse 96 96 96 Oximetry 07/20/20 07/20/20 07/20/20 02:15 02:30 02:45 Pulse Rate 123 H 123 H 124 H Respiratory 25 H 25 H 25 H Rate Blood Pressure 86/45 86/44 86/44 O2 Sat by Pulse 95 96 96 Oximetry 07/20/20 07/20/20 07/20/20 03:00 03:15 03:30 Pulse Rate 124 H 124 H 124 H Respiratory 25 H 25 H 25 H Rate Blood Pressure 94/48 94/48 94/48 O2 Sat by Pulse 95 96 96 Oximetry 07/20/20 07/20/20 07/20/20 03:45 04:00 04:15 Pulse Rate 124 H 124 H 124 H Respiratory 25 H 25 H 25 H Rate Blood Pressure 94/48 93/48 93/48 O2 Sat by Pulse 96 96 96 Oximetry 07/20/20 07/20/20 07/20/20 04:30 04:45 05:00 Pulse Rate 124 H 124 H 124 H Respiratory 25 H 25 H 25 H Rate Blood Pressure 94/51 94/51 95/51 O2 Sat by Pulse 95 96 96 Oximetry 07/20/20 07/20/20 07/20/20 05:15 05:30 05:45 Pulse Rate 124 H 123 H 123 H Respiratory 25 H 25 H 25 H Rate Blood Pressure 95/51 95/51 95/51 O2 Sat by Pulse 96 95 96 Oximetry 07/20/20 07/20/20 07/20/20 06:00 06:15 06:30 Pulse Rate 123 H 123 H 122 H Respiratory 25 H 25 H 25 H Rate Blood Pressure 97/51 97/51 97/55 O2 Sat by Pulse 96 97 97 Oximetry 07/20/20 07/20/20 07/20/20 06:45 07:00 07:15 Pulse Rate 119 H 116 H 116 H Respiratory 25 H 25 H 25 H Rate Blood Pressure 97/55 73/32 73/32 O2 Sat by Pulse 96 96 96 Oximetry 07/20/20 07/20/20 07:30 07:58 Pulse Rate 124 H 122 H Respiratory 25 H Rate Blood Pressure 99/60 96/56 O2 Sat by Pulse 96 97 Oximetry Constitutional: comatose ENT: other (orally intubated, no sedation) Neck: supple Ascultation: Bilateral: rales, rhonchi (anteriorly) CBC and BMP: 07/19/20 Unknown 07/19/20 Unknown ABG, PT/INR, D-dimer: ABG ABG pH 6.904 (7.320-7.450) L 07/19/20 06:14 POC ABG pCO2 50.8 mmHg (32.0-48.0) H 07/19/20 06:14 POC ABG pO2 140.1 mmHg (83-108) H 07/19/20 06:14 POC ABG HCO3 9.8 07/19/20 06:14 PT/INR, D-dimer PT 33.4 Sec. (12.2-14.9) H 07/19/20 Unknown INR 3.25 (0.87-1.13) H 07/19/20 Unknown Abnormal lab findings: Abnormal Labs 07/16/20 07/16/20 07/16/20 03:54 20:47 20:47 WBC 33.9 H RBC Hgb Hct MCV 107 H MCH 34 H RDW 22.0 H Plt Count Lymph % (Auto) Cecil % (Auto) Lymph # (Auto) Cecil # (Auto) Eos # (Auto) Seg Neutrophils % Seg Neuts % (Manual) 89.0 H Lymphocytes % (Manual) 2.0 L Monocytes % (Manual) Nucleated RBC % 1.0 H Seg Neutrophils # Seg Neutrophils # Man 30.2 H Lymphocytes # (Manual) 0.7 L Monocytes # (Manual) 1.4 H PT INR ABG pH POC ABG pCO2 POC ABG pO2 ABG Hemoglobin ABG Oxyhemoglobin ABG Chloride ABG Glucose VBG pH Carboxyhemoglobin Sodium Potassium 5.1 H Chloride Carbon Dioxide 9 L* BUN 20 H Creatinine 1.9 H Glucose 30 L* POC Glucose Lactic Acid Calcium Total Bilirubin 5.40 H Direct Bilirubin AST 78746 H ALT 1829 H Alkaline Phosphatase 141 H Ammonia Total Creatine Kinase Total Protein Albumin Lipase 9 L Arterial Blood Glucose Arterial Blood Ionized Calcium Urine WBC (Auto) 57.0 H U Epithel Cells (Auto) 23.0 H Acetaminophen Syphilis IgG Antibody Crossmatch 07/16/20 07/16/20 07/16/20 20:47 22:43 23:06 WBC RBC Hgb Hct MCV MCH RDW Plt Count Lymph % (Auto) Cecil % (Auto) Lymph # (Auto) Cecil # (Auto) Eos # (Auto) Seg Neutrophils % Seg Neuts % (Manual) Lymphocytes % (Manual) Monocytes % (Manual) Nucleated RBC % Seg Neutrophils # Seg Neutrophils # Man Lymphocytes # (Manual) Monocytes # (Manual) PT INR ABG pH POC ABG pCO2 POC ABG pO2 ABG Hemoglobin ABG Oxyhemoglobin ABG Chloride ABG Glucose VBG pH Carboxyhemoglobin Sodium Potassium Chloride Carbon Dioxide BUN Creatinine Glucose POC Glucose 140 H Lactic Acid 14.90 H* Calcium Total Bilirubin Direct Bilirubin AST ALT Alkaline Phosphatase Ammonia Total Creatine Kinase 230 H Total Protein Albumin Lipase Arterial Blood Glucose Arterial Blood Ionized Calcium Urine WBC (Auto) U Epithel Cells (Auto) Acetaminophen Syphilis IgG Antibody Crossmatch 07/17/20 07/17/20 07/17/20 01:46 01:46 04:55 WBC RBC Hgb Hct MCV MCH RDW Plt Count Lymph % (Auto) Cecil % (Auto) Lymph # (Auto) Cecil # (Auto) Eos # (Auto) Seg Neutrophils % Seg Neuts % (Manual) Lymphocytes % (Manual) Monocytes % (Manual) Nucleated RBC % Seg Neutrophils # Seg Neutrophils # Man Lymphocytes # (Manual) Monocytes # (Manual) PT INR ABG pH POC ABG pCO2 POC ABG pO2 ABG Hemoglobin ABG Oxyhemoglobin ABG Chloride ABG Glucose VBG pH 7.085 L* Carboxyhemoglobin Sodium Potassium Chloride Carbon Dioxide BUN Creatinine Glucose POC Glucose Lactic Acid 13.20 H* 12.00 H* Calcium Total Bilirubin Direct Bilirubin AST ALT Alkaline Phosphatase Ammonia Total Creatine Kinase Total Protein Albumin Lipase Arterial Blood Glucose Arterial Blood Ionized Calcium Urine WBC (Auto) U Epithel Cells (Auto) Acetaminophen Syphilis IgG Antibody Crossmatch 07/17/20 07/17/20 07/17/20 06:05 07:33 07:48 WBC RBC Hgb Hct MCV MCH RDW Plt Count Lymph % (Auto) Cecil % (Auto) Lymph # (Auto) Cecil # (Auto) Eos # (Auto) Seg Neutrophils % Seg Neuts % (Manual) Lymphocytes % (Manual) Monocytes % (Manual) Nucleated RBC % Seg Neutrophils # Seg Neutrophils # Man Lymphocytes # (Manual) Monocytes # (Manual) PT INR ABG pH POC ABG pCO2 POC ABG pO2 ABG Hemoglobin ABG Oxyhemoglobin ABG Chloride ABG Glucose VBG pH Carboxyhemoglobin Sodium Potassium Chloride Carbon Dioxide BUN Creatinine Glucose POC Glucose 59 L 125 H Lactic Acid 12.00 H* Calcium Total Bilirubin Direct Bilirubin AST ALT Alkaline Phosphatase Ammonia Total Creatine Kinase Total Protein Albumin Lipase Arterial Blood Glucose Arterial Blood Ionized Calcium Urine WBC (Auto) U Epithel Cells (Auto) Acetaminophen Syphilis IgG Antibody Crossmatch 07/17/20 07/17/20 07/17/20 09:23 09:23 09:24 WBC RBC Hgb Hct MCV MCH RDW Plt Count Lymph % (Auto) Cecil % (Auto) Lymph # (Auto) Cecil # (Auto) Eos # (Auto) Seg Neutrophils % Seg Neuts % (Manual) Lymphocytes % (Manual) Monocytes % (Manual) Nucleated RBC % Seg Neutrophils # Seg Neutrophils # Man Lymphocytes # (Manual) Monocytes # (Manual) PT INR ABG pH POC ABG pCO2 POC ABG pO2 ABG Hemoglobin ABG Oxyhemoglobin ABG Chloride ABG Glucose VBG pH Carboxyhemoglobin Sodium Potassium 5.7 H Chloride 107.6 H Carbon Dioxide 13 L BUN 24 H Creatinine 2.1 H Glucose 121 H POC Glucose Lactic Acid Calcium 6.0 L D Total Bilirubin 3.80 H Direct Bilirubin AST 8355 H ALT 1522 H Alkaline Phosphatase Ammonia Total Creatine Kinase 332 H Total Protein 4.7 L D Albumin 2.8 L Lipase Arterial Blood Glucose Arterial Blood Ionized Calcium Urine WBC (Auto) U Epithel Cells (Auto) Acetaminophen 5.0 L Syphilis IgG Antibody Crossmatch 07/17/20 07/17/20 07/17/20 11:08 11:08 11:08 WBC RBC Hgb Hct MCV MCH RDW Plt Count Lymph % (Auto) Cecil % (Auto) Lymph # (Auto) Cecil # (Auto) Eos # (Auto) Seg Neutrophils % Seg Neuts % (Manual) Lymphocytes % (Manual) Monocytes % (Manual) Nucleated RBC % Seg Neutrophils # Seg Neutrophils # Man Lymphocytes # (Manual) Monocytes # (Manual) PT 60.1 H INR > 17.67 H* ABG pH POC ABG pCO2 POC ABG pO2 ABG Hemoglobin ABG Oxyhemoglobin ABG Chloride ABG Glucose VBG pH Carboxyhemoglobin Sodium Potassium Chloride Carbon Dioxide BUN Creatinine Glucose POC Glucose Lactic Acid 9.80 H* Calcium Total Bilirubin Direct Bilirubin AST ALT Alkaline Phosphatase Ammonia Total Creatine Kinase Total Protein Albumin Lipase Arterial Blood Glucose Arterial Blood Ionized Calcium Urine WBC (Auto) U Epithel Cells (Auto) Acetaminophen Syphilis IgG Antibody Reactive A Crossmatch 07/17/20 07/17/20 07/17/20 14:34 14:34 14:34 WBC 27.2 H RBC 2.66 L Hgb 9.1 L D Hct 27.8 L D MCV 104 H MCH 34 H RDW 22.6 H Plt Count Lymph % (Auto) Cecil % (Auto) Lymph # (Auto) Cecil # (Auto) Eos # (Auto) Seg Neutrophils % Seg Neuts % (Manual) Lymphocytes % (Manual) Monocytes % (Manual) Nucleated RBC % Seg Neutrophils # Seg Neutrophils # Man Lymphocytes # (Manual) Monocytes # (Manual) PT INR ABG pH POC ABG pCO2 POC ABG pO2 ABG Hemoglobin ABG Oxyhemoglobin ABG Chloride ABG Glucose VBG pH Carboxyhemoglobin Sodium Potassium 5.4 H Chloride 107.7 H Carbon Dioxide 16 L BUN 26 H Creatinine 2.3 H Glucose 151 H POC Glucose Lactic Acid 7.60 H* Calcium 5.8 L* Total Bilirubin 3.30 H Direct Bilirubin AST 6751 H ALT 1325 H Alkaline Phosphatase Ammonia Total Creatine Kinase Total Protein 4.4 L Albumin 2.5 L Lipase Arterial Blood Glucose Arterial Blood Ionized Calcium Urine WBC (Auto) U Epithel Cells (Auto) Acetaminophen Syphilis IgG Antibody Crossmatch 07/17/20 07/17/20 07/17/20 14:34 14:34 16:45 WBC RBC Hgb Hct MCV MCH RDW Plt Count Lymph % (Auto) Cecil % (Auto) Lymph # (Auto) Cecil # (Auto) Eos # (Auto) Seg Neutrophils % Seg Neuts % (Manual) Lymphocytes % (Manual) Monocytes % (Manual) Nucleated RBC % Seg Neutrophils # Seg Neutrophils # Man Lymphocytes # (Manual) Monocytes # (Manual) PT 70.6 H INR 8.29 H* ABG pH POC ABG pCO2 POC ABG pO2 ABG Hemoglobin ABG Oxyhemoglobin ABG Chloride ABG Glucose VBG pH Carboxyhemoglobin Sodium Potassium Chloride 107.9 H Carbon Dioxide 17 L BUN 27 H Creatinine 2.5 H Glucose 144 H POC Glucose Lactic Acid Calcium 6.0 L Total Bilirubin 3.30 H Direct Bilirubin AST 6456 H ALT 1286 H Alkaline Phosphatase Ammonia 75.0 H Total Creatine Kinase Total Protein 4.2 L Albumin 2.5 L Lipase Arterial Blood Glucose Arterial Blood Ionized Calcium Urine WBC (Auto) U Epithel Cells (Auto) Acetaminophen Syphilis IgG Antibody Crossmatch 07/17/20 07/18/20 07/18/20 16:45 04:23 04:23 WBC 22.7 H RBC 2.47 L Hgb 8.5 L Hct 25.5 L MCV 103 H MCH 35 H RDW 21.7 H Plt Count Lymph % (Auto) 5.3 L Cecil % (Auto) Lymph # (Auto) Cecil # (Auto) Eos # (Auto) 0.7 H Seg Neutrophils % 88.2 H Seg Neuts % (Manual) Lymphocytes % (Manual) Monocytes % (Manual) Nucleated RBC % Seg Neutrophils # 20.0 H Seg Neutrophils # Man Lymphocytes # (Manual) Monocytes # (Manual) PT 52.9 H INR 5.78 H* ABG pH POC ABG pCO2 POC ABG pO2 ABG Hemoglobin ABG Oxyhemoglobin ABG Chloride ABG Glucose VBG pH Carboxyhemoglobin Sodium Potassium Chloride Carbon Dioxide BUN Creatinine Glucose POC Glucose Lactic Acid 7.00 H* Calcium Total Bilirubin Direct Bilirubin AST ALT Alkaline Phosphatase Ammonia Total Creatine Kinase Total Protein Albumin Lipase Arterial Blood Glucose Arterial Blood Ionized Calcium Urine WBC (Auto) U Epithel Cells (Auto) Acetaminophen Syphilis IgG Antibody Crossmatch 07/18/20 07/18/20 07/18/20 04:23 04:23 04:23 WBC RBC Hgb Hct MCV MCH RDW Plt Count Lymph % (Auto) Cecil % (Auto) Lymph # (Auto) Cecil # (Auto) Eos # (Auto) Seg Neutrophils % Seg Neuts % (Manual) Lymphocytes % (Manual) Monocytes % (Manual) Nucleated RBC % Seg Neutrophils # Seg Neutrophils # Man Lymphocytes # (Manual) Monocytes # (Manual) PT INR ABG pH POC ABG pCO2 POC ABG pO2 ABG Hemoglobin ABG Oxyhemoglobin ABG Chloride ABG Glucose VBG pH Carboxyhemoglobin Sodium Potassium Chloride 110.0 H Carbon Dioxide 17 L BUN 33 H Creatinine 3.0 H Glucose 110 H POC Glucose Lactic Acid 5.40 H* Calcium 6.4 L Total Bilirubin Direct Bilirubin AST ALT Alkaline Phosphatase Ammonia 96.0 H Total Creatine Kinase Total Protein Albumin Lipase Arterial Blood Glucose Arterial Blood Ionized Calcium Urine WBC (Auto) U Epithel Cells (Auto) Acetaminophen Syphilis IgG Antibody Crossmatch 07/18/20 07/18/20 07/18/20 07:25 Unknown Unknown WBC RBC Hgb Hct MCV MCH RDW Plt Count Lymph % (Auto) Cecil % (Auto) Lymph # (Auto) Cecil # (Auto) Eos # (Auto) Seg Neutrophils % Seg Neuts % (Manual) Lymphocytes % (Manual) Monocytes % (Manual) Nucleated RBC % Seg Neutrophils # Seg Neutrophils # Man Lymphocytes # (Manual) Monocytes # (Manual) PT 37.3 H INR 3.73 H ABG pH POC ABG pCO2 POC ABG pO2 ABG Hemoglobin ABG Oxyhemoglobin ABG Chloride ABG Glucose VBG pH Carboxyhemoglobin Sodium Potassium Chloride Carbon Dioxide BUN Creatinine Glucose POC Glucose Lactic Acid 5.50 H* 4.80 H* Calcium Total Bilirubin Direct Bilirubin AST ALT Alkaline Phosphatase Ammonia Total Creatine Kinase Total Protein Albumin Lipase Arterial Blood Glucose Arterial Blood Ionized Calcium Urine WBC (Auto) U Epithel Cells (Auto) Acetaminophen Syphilis IgG Antibody Crossmatch 07/18/20 07/19/20 07/19/20 Unknown 02:47 03:01 WBC RBC Hgb Hct MCV MCH RDW Plt Count Lymph % (Auto) Cecil % (Auto) Lymph # (Auto) Cecil # (Auto) Eos # (Auto) Seg Neutrophils % Seg Neuts % (Manual) Lymphocytes % (Manual) Monocytes % (Manual) Nucleated RBC % Seg Neutrophils # Seg Neutrophils # Man Lymphocytes # (Manual) Monocytes # (Manual) PT INR ABG pH POC ABG pCO2 21.1 L POC ABG pO2 61.7 L ABG Hemoglobin 8.5 L ABG Oxyhemoglobin 88.1 L ABG Chloride 119.0 H ABG Glucose VBG pH Carboxyhemoglobin Sodium Potassium Chloride Carbon Dioxide BUN Creatinine Glucose POC Glucose Lactic Acid 5.90 H* Calcium Total Bilirubin 3.70 H Direct Bilirubin 3.0 H AST 2093 H ALT 822 H Alkaline Phosphatase Ammonia Total Creatine Kinase Total Protein 4.0 L Albumin 2.5 L Lipase Arterial Blood Glucose Arterial Blood Ionized Calcium 4.0 L Urine WBC (Auto) U Epithel Cells (Auto) Acetaminophen Syphilis IgG Antibody Crossmatch 07/19/20 07/19/20 07/19/20 03:01 03:01 03:01 WBC 19.4 H RBC 2.50 L Hgb 8.5 L Hct 26.1 L MCV 104 H MCH 34 H RDW 22.3 H Plt Count Lymph % (Auto) 3.7 L Cecil % (Auto) Lymph # (Auto) 0.7 L Cecil # (Auto) 0.9 H Eos # (Auto) Seg Neutrophils % Seg Neuts % (Manual) Lymphocytes % (Manual) Monocytes % (Manual) Nucleated RBC % Seg Neutrophils # 17.7 H Seg Neutrophils # Man Lymphocytes # (Manual) Monocytes # (Manual) PT 35.0 H INR 3.45 H ABG pH POC ABG pCO2 POC ABG pO2 ABG Hemoglobin ABG Oxyhemoglobin ABG Chloride ABG Glucose VBG pH Carboxyhemoglobin Sodium 149 H Potassium Chloride 116.6 H Carbon Dioxide 14 L BUN 48 H Creatinine 2.5 H Glucose POC Glucose Lactic Acid Calcium 7.4 L D Total Bilirubin 3.70 H Direct Bilirubin AST 1730 H ALT 751 H Alkaline Phosphatase Ammonia Total Creatine Kinase Total Protein 4.3 L Albumin 2.4 L Lipase Arterial Blood Glucose Arterial Blood Ionized Calcium Urine WBC (Auto) U Epithel Cells (Auto) Acetaminophen Syphilis IgG Antibody Crossmatch 07/19/20 07/19/20 07/19/20 03:01 05:25 05:41 WBC 15.9 H RBC 1.80 L Hgb 6.2 L Hct 19.7 L* D MCV 109 H MCH 35 H RDW 22.7 H Plt Count 99 L Lymph % (Auto) 9.7 L Cecil % (Auto) 8.3 H Lymph # (Auto) Cecil # (Auto) 1.3 H Eos # (Auto) Seg Neutrophils % 81.2 H Seg Neuts % (Manual) 85.0 H Lymphocytes % (Manual) 12.0 L Monocytes % (Manual) Nucleated RBC % Seg Neutrophils # 12.9 H Seg Neutrophils # Man 13.5 H Lymphocytes # (Manual) Monocytes # (Manual) PT INR ABG pH POC ABG pCO2 POC ABG pO2 ABG Hemoglobin ABG Oxyhemoglobin ABG Chloride ABG Glucose VBG pH Carboxyhemoglobin Sodium Potassium Chloride Carbon Dioxide BUN Creatinine Glucose POC Glucose 43 L Lactic Acid Calcium Total Bilirubin Direct Bilirubin AST ALT Alkaline Phosphatase Ammonia 126.0 H Total Creatine Kinase Total Protein Albumin Lipase Arterial Blood Glucose Arterial Blood Ionized Calcium Urine WBC (Auto) U Epithel Cells (Auto) Acetaminophen Syphilis IgG Antibody Crossmatch 07/19/20 07/19/20 07/19/20 05:41 05:41 05:41 WBC RBC Hgb Hct MCV MCH RDW Plt Count Lymph % (Auto) Cecil % (Auto) Lymph # (Auto) Cecil # (Auto) Eos # (Auto) Seg Neutrophils % Seg Neuts % (Manual) Lymphocytes % (Manual) Monocytes % (Manual) Nucleated RBC % Seg Neutrophils # Seg Neutrophils # Man Lymphocytes # (Manual) Monocytes # (Manual) PT 51.8 H INR 5.63 H* ABG pH POC ABG pCO2 POC ABG pO2 ABG Hemoglobin ABG Oxyhemoglobin ABG Chloride ABG Glucose VBG pH Carboxyhemoglobin Sodium 150 H Potassium Chloride 117.6 H Carbon Dioxide 10 L BUN 50 H Creatinine 2.8 H Glucose 308 H POC Glucose Lactic Acid 12.00 H* Calcium 6.8 L Total Bilirubin 2.20 H Direct Bilirubin AST 1224 H ALT 484 H Alkaline Phosphatase Ammonia Total Creatine Kinase Total Protein 2.8 L D Albumin 1.6 L Lipase Arterial Blood Glucose Arterial Blood Ionized Calcium Urine WBC (Auto) U Epithel Cells (Auto) Acetaminophen Syphilis IgG Antibody Crossmatch 07/19/20 07/19/20 07/19/20 05:41 05:53 06:14 WBC RBC Hgb Hct MCV MCH RDW Plt Count Lymph % (Auto) Cecil % (Auto) Lymph # (Auto) Cecil # (Auto) Eos # (Auto) Seg Neutrophils % Seg Neuts % (Manual) Lymphocytes % (Manual) Monocytes % (Manual) Nucleated RBC % Seg Neutrophils # Seg Neutrophils # Man Lymphocytes # (Manual) Monocytes # (Manual) PT INR ABG pH 6.904 L POC ABG pCO2 50.8 H POC ABG pO2 140.1 H ABG Hemoglobin 7.9 L ABG Oxyhemoglobin ABG Chloride 120.0 H ABG Glucose 220 H VBG pH Carboxyhemoglobin 1.7 H Sodium Potassium Chloride Carbon Dioxide BUN Creatinine Glucose POC Glucose 186 H Lactic Acid Calcium Total Bilirubin Direct Bilirubin AST ALT Alkaline Phosphatase Ammonia 96.0 H Total Creatine Kinase Total Protein Albumin Lipase Arterial Blood Glucose 220 H Arterial Blood Ionized Calcium 4.1 L Urine WBC (Auto) U Epithel Cells (Auto) Acetaminophen Syphilis IgG Antibody Crossmatch 07/19/20 07/19/20 07/19/20 07:35 07:35 12:45 WBC RBC Hgb Hct MCV MCH RDW Plt Count Lymph % (Auto) Cecil % (Auto) Lymph # (Auto) [place] # (Auto) Eos # (Auto) Seg Neutrophils % Seg Neuts % (Manual) Lymphocytes % (Manual) Monocytes % (Manual) Nucleated RBC % Seg Neutrophils # Seg Neutrophils # Man Lymphocytes # (Manual) Monocytes # (Manual) PT INR ABG pH POC ABG pCO2 POC ABG pO2 ABG Hemoglobin ABG Oxyhemoglobin ABG Chloride ABG Glucose VBG pH Carboxyhemoglobin Sodium Potassium Chloride Carbon Dioxide BUN Creatinine Glucose POC Glucose Lactic Acid 8.50 H* 6.20 H* Calcium Total Bilirubin Direct Bilirubin AST ALT Alkaline Phosphatase Ammonia Total Creatine Kinase Total Protein Albumin Lipase Arterial Blood Glucose Arterial Blood Ionized Calcium Urine WBC (Auto) U Epithel Cells (Auto) Acetaminophen Syphilis IgG Antibody Crossmatch See Detail 07/19/20 07/19/20 07/19/20 22:54 Unknown Unknown WBC 26.7 H RBC 2.68 L Hgb 9.0 L Hct 26.8 L D MCV 100 H MCH 34 H RDW 20.2 H Plt Count 104 L Lymph % (Auto) Cecil % (Auto) Lymph # (Auto) Cecil # (Auto) Eos # (Auto) Seg Neutrophils % Seg Neuts % (Manual) Lymphocytes % (Manual) 6.0 L Monocytes % (Manual) 8.0 H Nucleated RBC % Seg Neutrophils # Seg Neutrophils # Man 17.6 H Lymphocytes # (Manual) Monocytes # (Manual) 2.1 H PT 33.4 H INR 3.25 H ABG pH POC ABG pCO2 POC ABG pO2 ABG Hemoglobin ABG Oxyhemoglobin ABG Chloride ABG Glucose VBG pH Carboxyhemoglobin Sodium Potassium Chloride Carbon Dioxide BUN Creatinine Glucose POC Glucose 121 H Lactic Acid Calcium Total Bilirubin Direct Bilirubin AST ALT Alkaline Phosphatase Ammonia Total Creatine Kinase Total Protein Albumin Lipase Arterial Blood Glucose Arterial Blood Ionized Calcium Urine WBC (Auto) U Epithel Cells (Auto) Acetaminophen Syphilis IgG Antibody Crossmatch 07/19/20 07/19/20 07/20/20 Unknown Unknown 02:41 WBC RBC Hgb Hct MCV MCH RDW Plt Count Lymph % (Auto) Cecil % (Auto) Lymph # (Auto) [place] # (Auto) Eos # (Auto) Seg Neutrophils % Seg Neuts % (Manual) Lymphocytes % (Manual) Monocytes % (Manual) Nucleated RBC % Seg Neutrophils # Seg Neutrophils # Man Lymphocytes # (Manual) Monocytes # (Manual) PT INR ABG pH POC ABG pCO2 POC ABG pO2 ABG Hemoglobin ABG Oxyhemoglobin ABG Chloride ABG Glucose VBG pH Carboxyhemoglobin Sodium 148 H Potassium 2.6 L* D Chloride 117.3 H Carbon Dioxide 18 L D BUN 48 H Creatinine 2.4 H Glucose 207 H POC Glucose 141 H Lactic Acid 3.90 H* Calcium 6.5 L Total Bilirubin 3.80 H Direct Bilirubin AST 1228 H ALT 516 H Alkaline Phosphatase Ammonia Total Creatine Kinase Total Protein 3.6 L D Albumin 1.9 L Lipase Arterial Blood Glucose Arterial Blood Ionized Calcium Urine WBC (Auto) U Epithel Cells (Auto) Acetaminophen Syphilis IgG Antibody Crossmatch 07/20/20 06:39 WBC RBC Hgb Hct MCV MCH RDW Plt Count Lymph % (Auto) [place] % (Auto) Lymph # (Auto) [place] # (Auto) Eos # (Auto) Seg Neutrophils % Seg Neuts % (Manual) Lymphocytes % (Manual) Monocytes % (Manual) Nucleated RBC % Seg Neutrophils # Seg Neutrophils # Man Lymphocytes # (Manual) Monocytes # (Manual) PT INR ABG pH POC ABG pCO2 POC ABG pO2 ABG Hemoglobin ABG Oxyhemoglobin ABG Chloride ABG Glucose VBG pH Carboxyhemoglobin Sodium Potassium Chloride Carbon Dioxide BUN Creatinine Glucose POC Glucose 123 H Lactic Acid Calcium Total Bilirubin Direct Bilirubin AST ALT Alkaline Phosphatase Ammonia Total Creatine Kinase Total Protein Albumin Lipase Arterial Blood Glucose Arterial Blood Ionized Calcium Urine WBC (Auto) U Epithel Cells (Auto) Acetaminophen Syphilis IgG Antibody Crossmatch
--- NOTE | 2020-07-20 10:25 | Progress Note ---
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 Acidosis Acute Liver Failure N/V UTI Syphilis Plan: -Improved Cr with stable BUN, improving metabolic acidosis, however, with decreased urine output and signs of volume overload, may benefit from VAT TENDER for UF, patient will need to be on CRRT due to diffuse cerebral edema, IHD has the risk of disequilibrium syndrome, patient will need to be transferred were CRRT is available. -will d/c IVF for now until neuorlogy decides if hypertonic solution is needed for cerebral edema -Sepsis-On multiple IV antibiotics -Obtain daily weights -Monitor I/O's daily -Avoid nephrotoxic agents -Monitor renal function closely Gordon Schmitt MD [phone] Subjective Date of service: 07/20/20 Principal diagnosis: Acute Liver Injury Interval history: intubated and sedated Objective - Vital Signs Vital signs: Vital Signs - 12hr 07/19/20 07/19/20 07/19/20 22:30 22:45 23:00 Pulse Rate 124 H 124 H 124 H Respiratory 25 H 25 H 25 H Rate Blood Pressure 89/50 89/50 85/55 O2 Sat by Pulse 74 L 98 98 Oximetry 07/19/20 07/19/20 07/19/20 23:15 23:30 23:45 Pulse Rate 124 H 125 H 125 H Respiratory 25 H 25 H 25 H Rate Blood Pressure 85/55 91/50 91/50 O2 Sat by Pulse 98 98 98 Oximetry 07/19/20 07/20/20 07/20/20 23:57 00:00 00:15 Pulse Rate 125 H 125 H 125 H Respiratory 25 H 25 H 25 H Rate Blood Pressure 91/50 90/53 O2 Sat by Pulse 98 98 98 Oximetry 07/20/20 07/20/20 07/20/20 00:30 00:45 01:00 Pulse Rate 126 H 126 H 127 H Respiratory 25 H 25 H 25 H Rate Blood Pressure 93/50 93/50 94/51 O2 Sat by Pulse 98 98 97 Oximetry 07/20/20 07/20/20 07/20/20 01:15 01:30 01:45 Pulse Rate 126 H 126 H 125 H Respiratory 22 25 H 25 H Rate Blood Pressure 94/51 94/49 94/49 O2 Sat by Pulse 96 96 96 Oximetry 07/20/20 07/20/20 07/20/20 02:00 02:15 02:30 Pulse Rate 124 H 123 H 123 H Respiratory 25 H 25 H 25 H Rate Blood Pressure 86/45 86/45 86/44 O2 Sat by Pulse 96 95 96 Oximetry 07/20/20 07/20/20 07/20/20 02:45 03:00 03:15 Pulse Rate 124 H 124 H 124 H Respiratory 25 H 25 H 25 H Rate Blood Pressure 86/44 94/48 94/48 O2 Sat by Pulse 96 95 96 Oximetry 07/20/20 07/20/20 07/20/20 03:30 03:45 04:00 Pulse Rate 124 H 124 H 124 H Respiratory 25 H 25 H 25 H Rate Blood Pressure 94/48 94/48 93/48 O2 Sat by Pulse 96 96 96 Oximetry 07/20/20 07/20/20 07/20/20 04:15 04:30 04:45 Pulse Rate 124 H 124 H 124 H Respiratory 25 H 25 H 25 H Rate Blood Pressure 93/48 94/51 94/51 O2 Sat by Pulse 96 95 96 Oximetry 07/20/20 07/20/20 07/20/20 05:00 05:15 05:30 Pulse Rate 124 H 124 H 123 H Respiratory 25 H 25 H 25 H Rate Blood Pressure 95/51 95/51 95/51 O2 Sat by Pulse 96 96 95 Oximetry 07/20/20 07/20/20 07/20/20 05:45 06:00 06:15 Pulse Rate 123 H 123 H 123 H Respiratory 25 H 25 H 25 H Rate Blood Pressure 95/51 97/51 97/51 O2 Sat by Pulse 96 96 97 Oximetry 07/20/20 07/20/20 07/20/20 06:30 06:45 07:00 Pulse Rate 122 H 119 H 116 H Respiratory 25 H 25 H 25 H Rate Blood Pressure 97/55 97/55 73/32 O2 Sat by Pulse 97 96 96 Oximetry 07/20/20 07/20/20 07/20/20 07:15 07:30 07:58 Pulse Rate 116 H 124 H 122 H Respiratory 25 H 25 H Rate Blood Pressure 73/32 99/60 96/56 O2 Sat by Pulse 96 96 97 Oximetry - General Appearance General appearance: sedated on ventilator, intubated Respiratory: Present: Decreased Breath Sounds Cardiology: tachycardia Psychiatric: other (itnubated) - Lab 07/19/20 Unknown 07/19/20 Unknown Most recent lab results ABG pH 6.904 (7.320-7.450) L 07/19/20 06:14 Calcium 6.5 mg/dL (8.4-10.2) L 07/19/20 Unknown Magnesium 2.10 mg/dL (1.7-2.3) 07/16/20 20:47 Medications & Allergies - Medications Allergies/Adverse Reactions: Allergies No Known Allergies Allergy (Verified 07/16/20 22:03) Home Medications: Home Medications Medication Instructions Recorded Confirmed Last Taken Type No Known Home Medications [No 07/17/20 07/17/20 Unknown History Reported Home Medications] Active Medications: Generic Name Dose Route Start Last Admin Trade Name Freq PRN Reason Stop Dose Admin Acyclovir 370 mg/ Sodium 107.4 mls @ 100 mls/hr 07/17/20 12:00 07/20/20 00:12 Chloride IV 100 mls/hr Q12HR ESTELA Administration Protocol Ceftriaxone Sodium 1 gm in 50 mls @ 100 mls/hr 07/17/20 12:00 07/19/20 10:15 Rocephin/Ns 1 Gm/50 Ml IV 100 mls/hr Q24HR ESTELA Administration Protocol Thiamine HCl 100 mg/ Sodium 51 mls @ 100 mls/hr 07/18/20 10:00 07/19/20 10:16 Chloride IV 100 mls/hr QDAY ESTELA Administration Folic Acid 1 mg/ Sodium 50.2 mls @ 200.8 mls/hr 07/18/20 10:00 07/19/20 10:16 Chloride IV 200.8 mls/hr QDAY ESTELA Administration Pantoprazole Sodium 80 mg/ 100 mls @ 10 mls/hr 07/19/20 06:00 07/19/20 06:02 Sodium Chloride IV 8 mg/hr DIRECT ESTELA 10 mls/hr Administration 8 MG/HR Dextrose 1,000 mls @ 125 mls/hr 07/19/20 06:00 07/19/20 05:54 D10w IV 125 mls/hr DIRECT ESTELA Administration Dopamine HCl/Dextrose 800 mg in 250 mls @ 2.807 mls/hr 07/19/20 05:45 07/19/20 05:55 Intropin Drip 800 Mg/D5w 250 Ml IV 20 mcg/kg/min TITR ESTELA 28.066 mls/hr Administration Protocol 2 MCG/KG/MIN Vasopressin 20 unit/ Sodium 101 mls @ 9.09 mls/hr 07/19/20 10:00 07/20/20 05:10 Chloride IV 0.03 units/min TITR ESTELA 9.09 mls/hr Administration Protocol 0.03 UNITS/MIN Norepinephrine 8 mg/ Sodium 250 mls @ 3.75 mls/hr 07/19/20 21:00 07/20/20 06:57 Chloride IV 2 mcg/min TITR ESTELA 3.75 mls/hr Titration Protocol 2 MCG/MIN Potassium Chloride 10 meq in 100 mls @ 100 mls/hr 07/20/20 11:00 Kcl 10meq/100ml IV 07/20/20 14:59 Q1H ESTELA Magnesium Hydroxide 30 ml 07/17/20 03:56 Magnesium Hydroxide (Mom) Oral Liqd Udc PO Q4H PRN Constipation Morphine Sulfate 2 mg 07/17/20 03:56 07/18/20 20:00 Morphine 2 Mg/1 Ml Inj IV 2 mg Q4H PRN Administration Pain, Moderate (4-6) Ondansetron HCl 4 mg 07/17/20 03:56 07/18/20 20:00 Ondansetron 4 Mg/2 Ml Inj IV 4 mg Q8H PRN Administration Nausea And Vomiting Sodium Chloride 10 ml 07/17/20 10:00 07/20/20 00:12 Sodium Chloride 0.9% 10 Ml Flush Syringe IV 10 ml BID ESTELA Administration Sodium Chloride 10 ml 07/17/20 03:56 Sodium Chloride 0.9% 10 Ml Flush Syringe IV PRN PRN LINE FLUSH
--- NOTE | 2020-07-20 10:46 | Gastroenterology Progress Note ---
Assessment and Plan patient completed NAC and liver function (as evidenced by INR) is improving. Bilirubin is a trailing marker so it will likely rise for another few days before peaking and then improving. INR is the best marker for following liver function in this situation and should be monitored closely (ideally Q6H) REgarding intermodal customer service prognosis the neurologic insult is the most concerning issues at the moment, as liver function is returning. From hepatology perspective continue supportive care, avoid hepatotoxins, control cerebral pressures and patient should undergo frequent neuro checks to ensure no clinical evidence for brain herniation with low threshold to repeat CT head if indicated. Spray transplant was called yesterday, no ICU beds available, and per primary care team given patient's high pressor requirements she is not stable for transfer at this juncture regardless If neurology has not yet been consulted, would recommend consideration of formal neuro consult GI Will continue to follow with you daily - Patient Problems (1) Acute liver failure Current Visit: Yes Status: Acute (2) Acute respiratory failure Current Visit: Yes Status: Acute Qualifiers: Respiratory failure complication: hypoxia Qualified Code(s): J96.01 - Acute respiratory failure with hypoxia (3) Cardiac arrest Current Visit: Yes Status: Acute Subjective Date of service: 07/20/20 Principal diagnosis: Acute Liver Injury Interval history: Patient remains intubated and on pressors She is not responsive to painful stimuli and cannot provide history Objective - Constitutional Vitals: Temp Pulse Resp BP Pulse Ox 98.7 F 122 H 25 H 96/56 97 07/19/20 10:29 07/20/20 07:58 07/20/20 07:30 07/20/20 07:58 07/20/20 07:58 General appearance: other (intubated, not responsive) - EENT Eyes: other (mild scleral icterus, edematous conj) - Respiratory Respiratory effort: other (intubated) - Cardiovascular Rhythm: other (tachy) - Gastrointestinal General gastrointestinal: Present: soft - Integumentary Integumentary: Present: dry - Neurologic Neurological: other (does not withdraw to painful stimuli) - Psychiatric Psychiatric: other (not responsive) - Labs CBC & Chem 7: 07/19/20 Unknown 07/19/20 Unknown Labs: Laboratory Results - last 24 hr 07/17/20 07/17/20 07/19/20 02:25 11:08 05:41 WBC RBC Hgb Hct MCV MCH MCHC RDW Plt Count Add Manual Diff Complete Total Counted 100 Seg Neuts % (Manual) 85.0 H Band Neutrophils % Lymphocytes % (Manual) 12.0 L Monocytes % (Manual) 1.0 Metamyelocytes % 1.0 Myelocytes % 1.0 Nucleated RBC % Not Reportable Seg Neutrophils # Man 13.5 H Band Neutrophils # 0.0 Lymphocytes # (Manual) 1.9 Abs React Lymphs (Man) 0.0 Monocytes # (Manual) 0.2 Eosinophils # (Manual) 0.0 Basophils # (Manual) 0.0 Metamyelocytes # 0.2 Myelocytes # 0.2 Promyelocytes # 0.0 Blast Cells # 0.0 WBC Morphology Not Reportable Hypersegmented Neuts Not Reportable Hyposegmented Neuts Not Reportable Hypogranular Neuts Not Reportable Smudge Cells Not Reportable Toxic Granulation Not Reportable Toxic Vacuolation Not Reportable Dohle Bodies Not Reportable Pelger-Huet Anomaly Not Reportable Fede Rods Not Reportable Platelet Estimate Consistent w auto Clumped Platelets Not Reportable Plt Clumps, EDTA Not Reportable Large Platelets Not Reportable Giant Platelets Not Reportable Platelet Satelliting Not Reportable Plt Morphology Comment Not Reportable RBC Morphology Not Reportable Dimorphic RBCs Not Reportable Polychromasia Not Reportable Hypochromasia Few Poikilocytosis Not Reportable Anisocytosis 1+ Microcytosis Not Reportable Macrocytosis Not Reportable Spherocytes Not Reportable Pappenheimer Bodies Not Reportable Sickle Cells Not Reportable Target Cells Not Reportable Tear Drop Cells Not Reportable Ovalocytes Not Reportable Helmet Cells Not Reportable [place] Bodies Not Reportable Lucas Rings Not Reportable Brea Cells Not Reportable Bite Cells Not Reportable Crenated Cell Not Reportable Elliptocytes Not Reportable Acanthocytes (Spur) Not Reportable Rouleaux Not Reportable Hemoglobin C Crystals Not Reportable Schistocytes Not Reportable Malaria parasites Not Reportable Richard Bodies Not Reportable Hem Pathologist Commnt No PT INR Sodium Potassium Chloride Carbon Dioxide Anion Gap BUN Creatinine Estimated GFR BUN/Creatinine Ratio Glucose POC Glucose Lactic Acid Calcium Total Bilirubin AST ALT Alkaline Phosphatase Total Protein Albumin Albumin/Globulin Ratio HCG, Qual T.pallidum Ab (FTA-ABS) Nonreactive C.trachomatis DNA (SDA) Not detected N.gonorrhoeae DNA (SDA) Not detected Crossmatch 07/19/20 07/19/20 07/19/20 07:35 07:35 12:45 WBC RBC Hgb Hct MCV MCH MCHC RDW Plt Count Add Manual Diff Total Counted Seg Neuts % (Manual) Band Neutrophils % Lymphocytes % (Manual) Monocytes % (Manual) Metamyelocytes % Myelocytes % Nucleated RBC % Seg Neutrophils # Man Band Neutrophils # Lymphocytes # (Manual) Abs React Lymphs (Man) Monocytes # (Manual) Eosinophils # (Manual) Basophils # (Manual) Metamyelocytes # Myelocytes # Promyelocytes # Blast Cells # WBC Morphology Hypersegmented Neuts Hyposegmented Neuts Hypogranular Neuts Smudge Cells Toxic Granulation Toxic Vacuolation Dohle Bodies Pelger-Huet Anomaly Fede Rods Platelet Estimate Clumped Platelets Plt Clumps, EDTA Large Platelets Giant Platelets Platelet Satelliting Plt Morphology Comment RBC Morphology Dimorphic RBCs Polychromasia Hypochromasia Poikilocytosis Anisocytosis Microcytosis Macrocytosis Spherocytes Pappenheimer Bodies Sickle Cells Target Cells Tear Drop Cells Ovalocytes Helmet Cells [place] Bodies Lucas Rings Brea Cells Bite Cells Crenated Cell Elliptocytes Acanthocytes (Spur) Rouleaux Hemoglobin C Crystals Schistocytes Malaria parasites Richard Bodies Hem Pathologist Commnt PT INR Sodium Potassium Chloride Carbon Dioxide Anion Gap BUN Creatinine Estimated GFR BUN/Creatinine Ratio Glucose POC Glucose Lactic Acid 6.20 H* Calcium Total Bilirubin AST ALT Alkaline Phosphatase Total Protein Albumin Albumin/Globulin Ratio HCG, Qual Negative T.pallidum Ab (FTA-ABS) C.trachomatis DNA (SDA) N.gonorrhoeae DNA (SDA) Crossmatch See Detail 07/19/20 07/19/20 07/19/20 22:54 Unknown Unknown WBC 26.7 H RBC 2.68 L Hgb 9.0 L Hct 26.8 L D MCV 100 H MCH 34 H MCHC 34 RDW 20.2 H Plt Count 104 L Add Manual Diff Complete Total Counted 100 Seg Neuts % (Manual) 66.0 Band Neutrophils % 20.0 Lymphocytes % (Manual) 6.0 L Monocytes % (Manual) 8.0 H Metamyelocytes % Myelocytes % Nucleated RBC % Not Reportable Seg Neutrophils # Man 17.6 H Band Neutrophils # 5.3 Lymphocytes # (Manual) 1.6 Abs React Lymphs (Man) 0.0 Monocytes # (Manual) 2.1 H Eosinophils # (Manual) 0.0 Basophils # (Manual) 0.0 Metamyelocytes # 0.0 Myelocytes # 0.0 Promyelocytes # 0.0 Blast Cells # 0.0 WBC Morphology Not Reportable Hypersegmented Neuts Not Reportable Hyposegmented Neuts Not Reportable Hypogranular Neuts Not Reportable Smudge Cells Not Reportable Toxic Granulation Not Reportable Toxic Vacuolation Not Reportable Dohle Bodies Not Reportable Pelger-Huet Anomaly Not Reportable Fede Rods Not Reportable Platelet Estimate Consistent w auto Clumped Platelets Not Reportable Plt Clumps, EDTA Not Reportable Large Platelets Not Reportable Giant Platelets Not Reportable Platelet Satelliting Not Reportable Plt Morphology Comment Not Reportable RBC Morphology Not Reportable Dimorphic RBCs Not Reportable Polychromasia Not Reportable Hypochromasia Not Reportable Poikilocytosis Not Reportable Anisocytosis 1+ Microcytosis Not Reportable Macrocytosis Not Reportable Spherocytes Not Reportable Pappenheimer Bodies Not Reportable Sickle Cells Not Reportable Target Cells Not Reportable Tear Drop Cells Not Reportable Ovalocytes Not Reportable Helmet Cells Not Reportable [place] Bodies Not Reportable Lucas Rings Not Reportable Brea Cells Not Reportable Bite Cells Not Reportable Crenated Cell Not Reportable Elliptocytes Not Reportable Acanthocytes (Spur) Not Reportable Rouleaux Not Reportable Hemoglobin C Crystals Not Reportable Schistocytes Not Reportable Malaria parasites Not Reportable Richard Bodies Not Reportable Hem Pathologist Commnt No PT 33.4 H INR 3.25 H Sodium Potassium Chloride Carbon Dioxide Anion Gap BUN Creatinine Estimated GFR BUN/Creatinine Ratio Glucose POC Glucose 121 H Lactic Acid Calcium Total Bilirubin AST ALT Alkaline Phosphatase Total Protein Albumin Albumin/Globulin Ratio HCG, Qual T.pallidum Ab (FTA-ABS) C.trachomatis DNA (SDA) N.gonorrhoeae DNA (SDA) Crossmatch 07/19/20 07/19/20 07/20/20 Unknown Unknown 02:41 WBC RBC Hgb Hct MCV MCH MCHC RDW Plt Count Add Manual Diff Total Counted Seg Neuts % (Manual) Band Neutrophils % Lymphocytes % (Manual) Monocytes % (Manual) Metamyelocytes % Myelocytes % Nucleated RBC % Seg Neutrophils # Man Band Neutrophils # Lymphocytes # (Manual) Abs React Lymphs (Man) Monocytes # (Manual) Eosinophils # (Manual) Basophils # (Manual) Metamyelocytes # Myelocytes # Promyelocytes # Blast Cells # WBC Morphology Hypersegmented Neuts Hyposegmented Neuts Hypogranular Neuts Smudge Cells Toxic Granulation Toxic Vacuolation Dohle Bodies Pelger-Huet Anomaly Fede Rods Platelet Estimate Clumped Platelets Plt Clumps, EDTA Large Platelets Giant Platelets Platelet Satelliting Plt Morphology Comment RBC Morphology Dimorphic RBCs Polychromasia Hypochromasia Poikilocytosis Anisocytosis Microcytosis Macrocytosis Spherocytes Pappenheimer Bodies Sickle Cells Target Cells Tear Drop Cells Ovalocytes Helmet Cells [place] Bodies Lucas Rings Shashank Cells Bite Cells Crenated Cell Elliptocytes Acanthocytes (Spur) Rouleaux Hemoglobin C Crystals Schistocytes Malaria parasites Richard Bodies Hem Pathologist Commnt PT INR Sodium 148 H Potassium 2.6 L* D Chloride 117.3 H Carbon Dioxide 18 L D Anion Gap 15 BUN 48 H Creatinine 2.4 H Estimated GFR 29 BUN/Creatinine Ratio 20 Glucose 207 H POC Glucose 141 H Lactic Acid 3.90 H* Calcium 6.5 L Total Bilirubin 3.80 H AST 1228 H ALT 516 H Alkaline Phosphatase 113 Total Protein 3.6 L D Albumin 1.9 L Albumin/Globulin Ratio 1.1 HCG, Qual T.pallidum Ab (FTA-ABS) C.trachomatis DNA (SDA) N.gonorrhoeae DNA (SDA) Crossmatch 07/20/20 06:39 WBC RBC Hgb Hct MCV MCH MCHC RDW Plt Count Add Manual Diff Total Counted Seg Neuts % (Manual) Band Neutrophils % Lymphocytes % (Manual) Monocytes % (Manual) Metamyelocytes % Myelocytes % Nucleated RBC % Seg Neutrophils # Man Band Neutrophils # Lymphocytes # (Manual) Abs React Lymphs (Man) Monocytes # (Manual) Eosinophils # (Manual) Basophils # (Manual) Metamyelocytes # Myelocytes # Promyelocytes # Blast Cells # WBC Morphology Hypersegmented Neuts Hyposegmented Neuts Hypogranular Neuts Smudge Cells Toxic Granulation Toxic Vacuolation Dohle Bodies Pelger-Huet Anomaly Fede Rods Platelet Estimate Clumped Platelets Plt Clumps, EDTA Large Platelets Giant Platelets Platelet Satelliting Plt Morphology Comment RBC Morphology Dimorphic RBCs Polychromasia Hypochromasia Poikilocytosis Anisocytosis Microcytosis Macrocytosis Spherocytes Pappenheimer Bodies Sickle Cells Target Cells Tear Drop Cells Ovalocytes Helmet Cells [place] Bodies Lucas Rings Shashank Cells Bite Cells Crenated Cell Elliptocytes Acanthocytes (Spur) Rouleaux Hemoglobin C Crystals Schistocytes Malaria parasites Richard Bodies Hem Pathologist Commnt PT INR Sodium Potassium Chloride Carbon Dioxide Anion Gap BUN Creatinine Estimated GFR BUN/Creatinine Ratio Glucose POC Glucose 123 H Lactic Acid Calcium Total Bilirubin AST ALT Alkaline Phosphatase Total Protein Albumin Albumin/Globulin Ratio HCG, Qual T.pallidum Ab (FTA-ABS) C.trachomatis DNA (SDA) N.gonorrhoeae DNA (SDA) Crossmatch
[2020-07-20] MEDS ORDERED: D5W/0.45% NACL 1,000 ML IV SCH (11:00)
[2020-07-20 11:30] LABS: Hematocrit 24.4 % (30.3-42.9); Hemoglobin 8.4 gm/dl (10.1-14.3); Mean Corpuscular HGB Conc 35 % (30-34); Mean Corpuscular Volume 98 fl (79-97); Red Cell Distribution Width 19.8 % (13.2-15.2)
[2020-07-20] MEDS: POTASSIUM CHLORIDE 10 MEQ 10 MEQ/100 ML BAG IV SCH ×6 (11:30→22:57)
[2020-07-20] MEDS: FOLIC ACID 1 MG in SODIUM CHLORIDE 0.9% 50 ML IV SCH (11:31)
[2020-07-20] MEDS: THIAMINE 100 MG in SODIUM CHLORIDE 0.9% 50 ML IV SCH (11:33)
[2020-07-20] MEDS: cefTRIAXone/NS 1 GM/50 ML 1 GM/50 ML BAG IV SCH (11:35)
[2020-07-20 11:38] LABS: Platelet Count 78 K/mm3 (140-440)
--- NOTE | 2020-07-20 11:43 | Ultrasound Report ---
ULTRASOUND RENAL INDICATION: renal failure. renal failure COMPARISON: No relevant prior imaging study available. FINDINGS: RIGHT KIDNEY: Size: 12.8 cm. Echogenicity: Normal. Cortical thickness: 1.8 cm. Hydronephrosis: None. Cyst or mass: None. Stones: None. LEFT KIDNEY: Size: 13.6 cm. Echogenicity: Normal. Cortical thickness: 1.5 cm. Hydronephrosis: None. Cyst or mass: None. Stones: None. Urinary Bladder: Kenney catheter in place. Free Fluid: Mild ascites present. Additional Findings: None. IMPRESSION 1. No acute sonographic abnormality of the kidneys. Signer Name: Tyrone Almaguer MD Signed: 07/20/2020 11:38 AM Workstation Name: [id number]
[2020-07-20 11:52] LABS: BUN/Creatinine Ratio 29; Blood Urea Nitrogen 52 mg/dL (7-17); Calcium 6.5 mg/dL (8.4-10.2); Hemolysis Index 32
--- NOTE | 2020-07-20 12:09 | Progress Note ---
Assessment and Plan Cultures: 07/16/2020 blood culture: no growth 07/17/2020 cervix wet prep: High number of clue cells, no trichomonas or yeast seen. 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 #Septic shock, leukemoid reaction, lactic acidosis, Bilateral pleural effusions, diffuse bilateral patchy groundglass opacities: Likely pulmonary edema. #Acute hepatic failure: ?Toxin/med related v/s autoimmune, less likely infectious. Also ruling out HSV induced hepatic necrosis and related fulminant hepatic falure. GI following. LFTs and synthetic liver function seem to be gradu ally improving. #Acute kidney injury: nephrology following. #Possible UTI/PID: has been on empiric abx. #Diffuse colitis noted on CT scan: Already on antibiotics. On multiple pressors. More likely to be ischemia related. No active diarrhea. #Diffuse cerebral edema: Probably a combination of acute liver failure and hypoxic encephalopathy. #Acute thrombocytopenia #Syphilis IgG positive, RPR titer non reactive, FTA-ABS is also nonreactive, so very likely it is a false positive Recs: -continue IV ceftriaxone, renally dosed acyclovir -f/u HSV DNA PCR on serum, re-ordered, it seems my original order got cancelled for unclear reasons -overall poor prognosis Kinjal Abebe MD, FACP [facility] ([facility] O: [phone] F: [phone] Subjective Date of service: 07/20/20 Principal diagnosis: Acute Liver Injury Interval history: No fever. Remains on the vent. Remains on multiple pressors. Objective - Exam Narrative Exam: Physical Exam: Constitutional: sedated, intubated, on the vent Head, Ears, Nose: Normocephalic, atraumatic. External ears, nose normal Eyes: Conjunctivae/corneas clear. No icterus. No ptosis. Neck: intubated Oral: intubated Cardiovascular: S1, S2 + Respiratory: AE fair bilaterally and equal GI: Soft, bowel sounds hypo Musculoskeletal: No pedal edema, no cyanosis. Skin: No rash or abscess Hem/Lymphatic: No palpable cervical or supraclavicular nodes. No lymphangitis Psych: no agitation Neurological: sedated, intubated, on the vent, exam limited - Constitutional Vitals: Vital Signs Temp Pulse Resp BP Pulse Ox 98.7 F 122 H 25 H 96/56 97 07/19/20 10:29 07/20/20 07:58 07/20/20 07:30 07/20/20 07:58 07/20/20 07:58 - Labs CBC & Chem 7: 07/20/20 11:07 07/20/20 11:07 Labs: Abnormal lab results 07/19/20 07/19/20 07/19/20 Range/Units 07:35 12:45 22:54 WBC (4.5-11.0) K/mm3 RBC (3.65-5.03) M/mm3 Hgb (10.1-14.3) gm/dl Hct (30.3-42.9) % MCV (79-97) fl MCH (28-32) pg MCHC (30-34) % RDW (13.2-15.2) % Plt Count (140-440) K/mm3 Lymphocytes % (Manual) (13.4-35.0) % Monocytes % (Manual) (0.0-7.3) % Seg Neutrophils # Man (1.8-7.7) K/mm3 Monocytes # (Manual) (0.0-0.8) K/mm3 PT (12.2-14.9) Sec. INR (0.87-1.13) POC ABG pO2 (83-108) mmHg ABG Hemoglobin (12.0-17.5) ABG Potassium (3.40-4.50) mmol/L ABG Chloride (98-107) mmol/L ABG Glucose (65-95) mg/dL Carboxyhemoglobin (0.5-1.5) Sodium (137-145) mmol/L Potassium (3.6-5.0) mmol/L Chloride (98-107) mmol/L Carbon Dioxide (22-30) mmol/L BUN (7-17) mg/dL Creatinine (0.6-1.2) mg/dL Glucose (65-100) mg/dL POC Glucose 121 H (70-105) mg/dL Lactic Acid 6.20 H* (0.7-2.0) mmol/L Calcium (8.4-10.2) mg/dL Total Bilirubin (0.1-1.2) mg/dL AST (5-40) units/L ALT (7-56) units/L Total Protein (6.3-8.2) g/dL Albumin (3.9-5) g/dL Arterial Blood Glucose (65-95) mg/dL Arterial Blood Ionized Calcium (4.6-5.3) mg/dL Crossmatch See Detail 07/19/20 07/19/20 07/19/20 Range/Units Unknown Unknown Unknown WBC 26.7 H (4.5-11.0) K/mm3 RBC 2.68 L (3.65-5.03) M/mm3 Hgb 9.0 L (10.1-14.3) gm/dl Hct 26.8 L D (30.3-42.9) % MCV 100 H (79-97) fl MCH 34 H (28-32) pg MCHC (30-34) % RDW 20.2 H (13.2-15.2) % Plt Count 104 L (140-440) K/mm3 Lymphocytes % (Manual) 6.0 L (13.4-35.0) % Monocytes % (Manual) 8.0 H (0.0-7.3) % Seg Neutrophils # Man 17.6 H (1.8-7.7) K/mm3 Monocytes # (Manual) 2.1 H (0.0-0.8) K/mm3 PT 33.4 H (12.2-14.9) Sec. INR 3.25 H (0.87-1.13) POC ABG pO2 (83-108) mmHg ABG Hemoglobin (12.0-17.5) ABG Potassium (3.40-4.50) mmol/L ABG Chloride (98-107) mmol/L ABG Glucose (65-95) mg/dL Carboxyhemoglobin (0.5-1.5) Sodium 148 H (137-145) mmol/L Potassium 2.6 L* D (3.6-5.0) mmol/L Chloride 117.3 H (98-107) mmol/L Carbon Dioxide 18 L D (22-30) mmol/L BUN 48 H (7-17) mg/dL Creatinine 2.4 H (0.6-1.2) mg/dL Glucose 207 H (65-100) mg/dL POC Glucose (70-105) mg/dL Lactic Acid (0.7-2.0) mmol/L Calcium 6.5 L (8.4-10.2) mg/dL Total Bilirubin 3.80 H (0.1-1.2) mg/dL AST 1228 H (5-40) units/L ALT 516 H (7-56) units/L Total Protein 3.6 L D (6.3-8.2) g/dL Albumin 1.9 L (3.9-5) g/dL Arterial Blood Glucose (65-95) mg/dL Arterial Blood Ionized Calcium (4.6-5.3) mg/dL Crossmatch 07/19/20 07/20/20 07/20/20 Range/Units Unknown 02:41 06:39 WBC (4.5-11.0) K/mm3 RBC (3.65-5.03) M/mm3 Hgb (10.1-14.3) gm/dl Hct (30.3-42.9) % MCV (79-97) fl MCH (28-32) pg MCHC (30-34) % RDW (13.2-15.2) % Plt Count (140-440) K/mm3 Lymphocytes % (Manual) (13.4-35.0) % Monocytes % (Manual) (0.0-7.3) % Seg Neutrophils # Man (1.8-7.7) K/mm3 Monocytes # (Manual) (0.0-0.8) K/mm3 PT (12.2-14.9) Sec. INR (0.87-1.13) POC ABG pO2 (83-108) mmHg ABG Hemoglobin (12.0-17.5) ABG Potassium (3.40-4.50) mmol/L ABG Chloride (98-107) mmol/L ABG Glucose (65-95) mg/dL Carboxyhemoglobin (0.5-1.5) Sodium (137-145) mmol/L Potassium (3.6-5.0) mmol/L Chloride (98-107) mmol/L Carbon Dioxide (22-30) mmol/L BUN (7-17) mg/dL Creatinine (0.6-1.2) mg/dL Glucose (65-100) mg/dL POC Glucose 141 H 123 H (70-105) mg/dL Lactic Acid 3.90 H* (0.7-2.0) mmol/L Calcium (8.4-10.2) mg/dL Total Bilirubin (0.1-1.2) mg/dL AST (5-40) units/L ALT (7-56) units/L Total Protein (6.3-8.2) g/dL Albumin (3.9-5) g/dL Arterial Blood Glucose (65-95) mg/dL Arterial Blood Ionized Calcium (4.6-5.3) mg/dL Crossmatch 07/20/20 07/20/20 07/20/20 Range/Units 10:42 11:07 11:07 WBC 27.7 H (4.5-11.0) K/mm3 RBC 2.50 L (3.65-5.03) M/mm3 Hgb 8.4 L (10.1-14.3) gm/dl Hct 24.4 L (30.3-42.9) % MCV 98 H (79-97) fl MCH 34 H (28-32) pg MCHC 35 H (30-34) % RDW 19.8 H (13.2-15.2) % Plt Count 78 L (140-440) K/mm3 Lymphocytes % (Manual) (13.4-35.0) % Monocytes % (Manual) (0.0-7.3) % Seg Neutrophils # Man (1.8-7.7) K/mm3 Monocytes # (Manual) (0.0-0.8) K/mm3 PT (12.2-14.9) Sec. INR (0.87-1.13) POC ABG pO2 113.1 H (83-108) mmHg ABG Hemoglobin 8.8 L (12.0-17.5) ABG Potassium 2.9 L (3.40-4.50) mmol/L ABG Chloride 114.0 H (98-107) mmol/L ABG Glucose 135 H (65-95) mg/dL Carboxyhemoglobin 1.9 H (0.5-1.5) Sodium 147 H (137-145) mmol/L Potassium (3.6-5.0) mmol/L Chloride 114.2 H (98-107) mmol/L Carbon Dioxide (22-30) mmol/L BUN 52 H (7-17) mg/dL Creatinine 1.8 H (0.6-1.2) mg/dL Glucose 143 H (65-100) mg/dL POC Glucose (70-105) mg/dL Lactic Acid (0.7-2.0) mmol/L Calcium 6.5 L (8.4-10.2) mg/dL Total Bilirubin (0.1-1.2) mg/dL AST (5-40) units/L ALT (7-56) units/L Total Protein (6.3-8.2) g/dL Albumin (3.9-5) g/dL Arterial Blood Glucose 135 H (65-95) mg/dL Arterial Blood Ionized Calcium 3.8 L (4.6-5.3) mg/dL Crossmatch
[2020-07-20 16:23] LABS: Calcium 6.8 mg/dL (8.4-10.2)
[2020-07-20] MEDS: DEXTROSE 10% IN WATER 1,000 ML IV SCH (23:00)
[2020-07-21] MEDS: NORepinephrine 8 MG in SODIUM CHLORIDE 0.9% 250ML 242 ML IV SCH ×5 (01:28→23:32)
[2020-07-21] MEDS: VASOPRESSIN 20 UNIT in SODIUM CHLORIDE 0.9% 100 ML IV SCH ×2 (03:34→16:10)
[2020-07-21] MEDS ORDERED: MAGNESIUM SULFATE 2 GM/50 ML BAG IV ONE ×2 (04:46→12:03)
[2020-07-21 05:34] LABS: ABG Base Excess -3.8 mmol/L (-2.0-3.0); ABG HCO3 20.9 mmol/L (20.0-26.0); ABG Methemoglobin 0.5 % (0.0-1.5); ABG Oxygen Saturation 97.5 % (95.0-99.0); ABG PCO2 36.2 mm Hg; ABG PH 7.378 pH Units (7.350-7.450); ABG PO2 98.2 mm Hg (80.0-90.0)
[2020-07-21] MEDS: MORPHINE 2 MG/1 ML INJ IV PRN (06:53)
[2020-07-21] MEDS: DEXTROSE 10% IN WATER 1,000 ML IV SCH (08:59)
[2020-07-21] MEDS: ACYCLOVIR IV SCH ×2 (10:06→21:48)
[2020-07-21] MEDS: SODIUM CHLORIDE 0.9% IV SCH ×2 (10:06→21:48)
[2020-07-21] MEDS: cefTRIAXone/NS 1 GM/50 ML 1 GM/50 ML BAG IV SCH (10:06)
[2020-07-21] MEDS: THIAMINE 100 MG in SODIUM CHLORIDE 0.9% 50 ML IV SCH (10:06)
[2020-07-21] MEDS: FOLIC ACID 1 MG in SODIUM CHLORIDE 0.9% 50 ML IV SCH (10:07)
--- NOTE | 2020-07-21 10:51 | Gastroenterology Progress Note ---
Assessment and Plan patient completed NAC and liver function (as evidenced by INR) was improving but no labs today; unless making patient comfort care please draw LFT daily and INR more frequently (ideally every 6-8 hours). Bilirubin is a trailing marker so it will likely rise for another few days before peaking and then improving when liver function returns. Regarding custodial prognosis the neurologic insult is the most concerning issues at the moment, as liver function appears to be returning. From hepatology perspective continue supportive care, avoid hepatotoxins, control cerebral pressures and patient should undergo frequent neuro checks to ensure no clinical evidence for brain herniation with low threshold to repeat CT head if indicated. [place] transplant was called Wed, no ICU beds available, and per primary care team given patient's high pressor requirements she is not stable for transfer at this juncture regardless If neurology has not yet been consulted, would recommend consideration of formal neuro consult GI Will continue to follow with you daily - Patient Problems (1) Acute liver failure Current Visit: Yes Status: Acute (2) Acute respiratory failure Current Visit: Yes Status: Acute Qualifiers: Respiratory failure complication: hypoxia Qualified Code(s): J96.01 - Acute respiratory failure with hypoxia (3) Cardiac arrest Current Visit: Yes Status: Acute Subjective Date of service: 07/21/20 Principal diagnosis: Acute Liver Injury Interval history: Patient remains intubated and on pressor support She is not responsive to painful stimuli and cannot provide history Objective - Constitutional Vitals: Temp Pulse Resp BP Pulse Ox 98.4 F 104 H 25 H 135/81 97 07/21/20 03:34 07/21/20 07:50 07/21/20 05:00 07/21/20 07:50 07/21/20 07:50 General appearance: other (Intubated, not responsive) - Integumentary Integumentary: Present: dry - Neurologic Neurological: other (Does not withdraw to painful stimuli) - Labs CBC & Chem 7: 07/20/20 11:07 07/21/20 00:03 Labs: Laboratory Results - last 24 hr 07/17/20 07/20/20 07/20/20 11:08 05:04 10:42 WBC RBC Hgb Hct MCV MCH MCHC RDW Plt Count ABG pH 7.394 7.448 POC ABG pCO2 36.0 32.5 ABG pCO2 POC ABG pO2 64.7 L 113.1 H ABG pO2 POC ABG HCO3 21.5 22.0 ABG HCO3 ABG O2 Saturation ABG O2 Content POC ABG Base Excess -3.0 -1.6 ABG Base Excess ABG Hemoglobin 8.8 L 8.8 L ABG Oxyhemoglobin 91.0 L 96.3 ABG Carboxyhemoglobin ABG Methemoglobin 0.3 0.3 ABG Sodium 140.6 140.2 ABG Potassium 2.6 L 2.9 L ABG Chloride 116.0 H 114.0 H ABG Glucose 143 H 135 H Oxyhemoglobin Carboxyhemoglobin 2.0 H 1.9 H FiO2 40 40 Sodium Potassium Chloride Carbon Dioxide Anion Gap BUN Creatinine Estimated GFR BUN/Creatinine Ratio Glucose POC Glucose Calcium Phosphorus Magnesium Arterial Blood Glucose 143 H 135 H Arterial Blood Ionized Calcium 3.9 L 3.8 L HSV I Specific Ab 5.23 H 07/20/20 07/20/20 07/20/20 11:07 11:07 15:05 WBC 27.7 H RBC 2.50 L Hgb 8.4 L Hct 24.4 L MCV 98 H MCH 34 H MCHC 35 H RDW 19.8 H Plt Count 78 L ABG pH POC ABG pCO2 ABG pCO2 POC ABG pO2 ABG pO2 POC ABG HCO3 ABG HCO3 ABG O2 Saturation ABG O2 Content POC ABG Base Excess ABG Base Excess ABG Hemoglobin ABG Oxyhemoglobin ABG Carboxyhemoglobin ABG Methemoglobin ABG Sodium ABG Potassium ABG Chloride ABG Glucose Oxyhemoglobin Carboxyhemoglobin FiO2 Sodium 147 H 146 H Potassium TNR 2.8 L* Chloride 114.2 H 112.1 H Carbon Dioxide 24 24 Anion Gap 11 13 BUN 52 H 54 H Creatinine 1.8 H 1.9 H Estimated GFR 41 38 BUN/Creatinine Ratio 29 28 Glucose 143 H 107 H POC Glucose Calcium 6.5 L 6.8 L Phosphorus TNR Magnesium TNR Arterial Blood Glucose Arterial Blood Ionized Calcium HSV I Specific Ab 07/20/20 07/21/20 07/21/20 18:08 00:03 02:07 WBC RBC Hgb Hct MCV MCH MCHC RDW Plt Count ABG pH POC ABG pCO2 ABG pCO2 POC ABG pO2 ABG pO2 POC ABG HCO3 ABG HCO3 ABG O2 Saturation ABG O2 Content POC ABG Base Excess ABG Base Excess ABG Hemoglobin ABG Oxyhemoglobin ABG Carboxyhemoglobin ABG Methemoglobin ABG Sodium ABG Potassium ABG Chloride ABG Glucose Oxyhemoglobin Carboxyhemoglobin FiO2 Sodium Potassium 3.1 L Chloride Carbon Dioxide Anion Gap BUN Creatinine Estimated GFR BUN/Creatinine Ratio Glucose POC Glucose 99 145 H Calcium Phosphorus Magnesium 0.90 L* Arterial Blood Glucose Arterial Blood Ionized Calcium HSV I Specific Ab 07/21/20 07/21/20 03:42 05:21 WBC RBC Hgb Hct MCV MCH MCHC RDW Plt Count ABG pH 7.378 POC ABG pCO2 ABG pCO2 36.2 POC ABG pO2 ABG pO2 98.2 H POC ABG HCO3 ABG HCO3 20.9 ABG O2 Saturation 97.5 ABG O2 Content 11.7 POC ABG Base Excess ABG Base Excess -3.8 L ABG Hemoglobin 8.7 L ABG Oxyhemoglobin ABG Carboxyhemoglobin 2.5 ABG Methemoglobin 0.5 ABG Sodium ABG Potassium ABG Chloride ABG Glucose Oxyhemoglobin 94.6 L Carboxyhemoglobin FiO2 40 Sodium Potassium Chloride Carbon Dioxide Anion Gap BUN Creatinine Estimated GFR BUN/Creatinine Ratio Glucose POC Glucose 150 H Calcium Phosphorus Magnesium Arterial Blood Glucose Arterial Blood Ionized Calcium HSV I Specific Ab
--- NOTE | 2020-07-21 12:05 | Progress Note ---
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 Acidosis Acute Liver Failure N/V UTI Syphilis Plan: -Monitor Cr. -Making some urine. -Sepsis-On multiple IV antibiotics -Obtain daily weights -Monitor I/O's daily -Avoid nephrotoxic agents -Monitor renal function closely Subjective Date of service: 07/21/20 Principal diagnosis: Acute Liver Injury Interval history: Intubated on Vent. Objective - Exam Narrative Exam: General appearance: sedated on ventilator, intubated Respiratory: Present: Decreased Breath Sounds Cardiology: tachycardia Psychiatric: other (itnubated) - Vital Signs Vital signs: Vital Signs - 12hr 07/21/20 07/21/20 07/21/20 00:25 00:30 01:00 Temperature 97.4 F L Pulse Rate 117 H 119 H Pulse Rate [ 110 H From Monitor] Respiratory 25 H 24 Rate Blood Pressure 115/66 115/66 O2 Sat by Pulse 100 98 95 Oximetry 07/21/20 07/21/20 07/21/20 03:00 03:21 03:30 Temperature Pulse Rate 109 H 109 H Pulse Rate [ 109 H From Monitor] Respiratory 25 H 25 H 25 H Rate Blood Pressure 131/76 133/77 O2 Sat by Pulse 97 96 95 Oximetry 07/21/20 07/21/20 07/21/20 03:34 03:41 03:51 Temperature 98.4 F Pulse Rate 108 H 108 H Pulse Rate [ From Monitor] Respiratory 25 H 25 H Rate Blood Pressure 131/74 134/78 O2 Sat by Pulse 96 96 Oximetry 07/21/20 07/21/20 07/21/20 04:00 04:11 04:21 Temperature Pulse Rate 108 H 107 H 107 H Pulse Rate [ From Monitor] Respiratory 25 H 25 H 25 H Rate Blood Pressure 134/77 134/77 137/83 O2 Sat by Pulse 94 96 96 Oximetry 07/21/20 07/21/20 07/21/20 04:30 04:41 04:51 Temperature Pulse Rate 107 H 107 H 108 H Pulse Rate [ From Monitor] Respiratory 25 H 25 H 25 H Rate Blood Pressure 138/81 138/81 136/86 O2 Sat by Pulse 94 96 96 Oximetry 07/21/20 07/21/20 07/21/20 05:00 05:11 05:21 Temperature Pulse Rate 110 H 108 H 107 H Pulse Rate [ 108 H From Monitor] Respiratory 25 H 25 H 25 H Rate Blood Pressure 141/83 141/83 140/83 O2 Sat by Pulse 94 96 96 Oximetry 07/21/20 07/21/20 07/21/20 05:30 05:41 05:51 Temperature Pulse Rate 106 H 107 H 107 H Pulse Rate [ From Monitor] Respiratory 25 H 25 H 25 H Rate Blood Pressure 127/73 127/73 137/75 O2 Sat by Pulse 94 96 96 Oximetry 07/21/20 07/21/20 07/21/20 06:00 06:11 06:21 Temperature Pulse Rate 107 H 106 H 108 H Pulse Rate [ From Monitor] Respiratory 25 H 25 H 25 H Rate Blood Pressure 137/83 137/83 139/85 O2 Sat by Pulse 94 96 97 Oximetry 07/21/20 07/21/20 07/21/20 06:30 06:41 06:51 Temperature Pulse Rate 108 H 108 H 109 H Pulse Rate [ From Monitor] Respiratory 25 H 25 H 25 H Rate Blood Pressure 149/93 149/93 161/102 O2 Sat by Pulse 93 96 96 Oximetry 07/21/20 07/21/20 07/21/20 07:00 07:11 07:21 Temperature Pulse Rate 108 H 107 H 107 H Pulse Rate [ From Monitor] Respiratory 25 H 25 H 25 H Rate Blood Pressure 134/78 134/78 140/83 O2 Sat by Pulse 93 96 96 Oximetry 07/21/20 07/21/20 07/21/20 07:30 07:41 07:50 Temperature Pulse Rate 105 H 104 H 104 H Pulse Rate [ From Monitor] Respiratory 25 H 25 H Rate Blood Pressure 132/74 132/74 135/81 O2 Sat by Pulse 95 96 97 Oximetry 07/21/20 07/21/20 07/21/20 07:51 08:00 08:11 Temperature Pulse Rate 104 H 104 H 104 H Pulse Rate [ From Monitor] Respiratory 25 H 25 H 25 H Rate Blood Pressure 135/81 138/82 138/82 O2 Sat by Pulse 97 94 97 Oximetry 07/21/20 07/21/20 07/21/20 08:21 08:30 08:41 Temperature Pulse Rate 104 H 104 H 104 H Pulse Rate [ From Monitor] Respiratory 25 H 25 H 25 H Rate Blood Pressure 138/86 144/91 144/91 O2 Sat by Pulse 97 95 96 Oximetry 07/21/20 07/21/20 07/21/20 08:51 09:00 09:11 Temperature Pulse Rate 104 H 104 H 104 H Pulse Rate [ From Monitor] Respiratory 25 H 25 H 25 H Rate Blood Pressure 139/83 127/74 127/74 O2 Sat by Pulse 96 94 95 Oximetry 07/21/20 07/21/20 07/21/20 09:21 09:30 09:41 Temperature Pulse Rate 104 H 103 H 103 H Pulse Rate [ From Monitor] Respiratory 25 H 25 H 25 H Rate Blood Pressure 124/72 126/73 126/73 O2 Sat by Pulse 95 94 96 Oximetry 07/21/20 07/21/20 07/21/20 09:51 10:00 10:10 Temperature Pulse Rate 103 H 102 H 103 H Pulse Rate [ From Monitor] Respiratory 25 H 25 H 25 H Rate Blood Pressure 127/76 122/68 122/68 O2 Sat by Pulse 96 95 96 Oximetry 07/21/20 07/21/20 07/21/20 10:21 10:30 10:41 Temperature Pulse Rate 102 H 101 H 102 H Pulse Rate [ From Monitor] Respiratory 25 H 25 H 25 H Rate Blood Pressure 115/66 125/75 125/75 O2 Sat by Pulse 95 94 95 Oximetry 07/21/20 07/21/20 07/21/20 10:51 11:00 11:11 Temperature Pulse Rate 102 H 102 H 102 H Pulse Rate [ From Monitor] Respiratory 25 H 25 H 25 H Rate Blood Pressure 108/58 109/63 109/63 O2 Sat by Pulse 94 94 95 Oximetry 07/21/20 07/21/20 11:21 11:30 Temperature Pulse Rate 101 H 100 H Pulse Rate [ From Monitor] Respiratory 25 H 25 H Rate Blood Pressure 107/61 105/59 O2 Sat by Pulse 95 93 Oximetry - Lab 07/20/20 11:07 07/21/20 00:03 Most recent lab results ABG pH 7.378 pH Units (7.350-7.450) 07/21/20 05:21 ABG pCO2 36.2 mm Hg 07/21/20 05:21 ABG pO2 98.2 mm Hg (80.0-90.0) H 07/21/20 05:21 ABG HCO3 20.9 mmol/L (20.0-26.0) 07/21/20 05:21 ABG O2 Saturation 97.5 % (95.0-99.0) 07/21/20 05:21 Calcium 6.8 mg/dL (8.4-10.2) L 07/20/20 15:05 Phosphorus TNR 07/20/20 11:07 Magnesium 0.90 mg/dL (1.7-2.3) L* 07/21/20 00:03 Medications & Allergies - Medications Allergies/Adverse Reactions: Allergies No Known Allergies Allergy (Verified 07/16/20 22:03) Home Medications: Home Medications Medication Instructions Recorded Confirmed Last Taken Type No Known Home Medications [No 07/17/20 07/17/20 Unknown History Reported Home Medications] Active Medications: Generic Name Dose Route Start Last Admin Trade Name Freq PRN Reason Stop Dose Admin Acyclovir 370 mg/ Sodium 107.4 mls @ 100 mls/hr 07/17/20 12:00 07/21/20 10:06 Chloride IV 100 mls/hr Q12HR ESTELA Administration Protocol Ceftriaxone Sodium 1 gm in 50 mls @ 100 mls/hr 07/17/20 12:00 07/21/20 10:06 Rocephin/Ns 1 Gm/50 Ml IV 100 mls/hr Q24HR ESTELA Administration Protocol Thiamine HCl 100 mg/ Sodium 51 mls @ 100 mls/hr 07/18/20 10:00 07/21/20 10:06 Chloride IV 100 mls/hr QDAY ESTELA Administration Folic Acid 1 mg/ Sodium 50.2 mls @ 200.8 mls/hr 07/18/20 10:00 07/21/20 10:07 Chloride IV 200.8 mls/hr QDAY ESTELA Administration Pantoprazole Sodium 80 mg/ 100 mls @ 10 mls/hr 07/19/20 06:00 07/19/20 06:02 Sodium Chloride IV 8 mg/hr DIRECT ESTELA 10 mls/hr Administration 8 MG/HR Dextrose 1,000 mls @ 125 mls/hr 07/19/20 06:00 07/21/20 08:59 D10w IV 125 mls/hr DIRECT ESTELA Administration Dopamine HCl/Dextrose 800 mg in 250 mls @ 2.807 mls/hr 07/19/20 05:45 07/19/20 05:55 Intropin Drip 800 Mg/D5w 250 Ml IV 20 mcg/kg/min TITR ESTELA 28.066 mls/hr Administration Protocol 2 MCG/KG/MIN Vasopressin 20 unit/ Sodium 101 mls @ 9.09 mls/hr 07/19/20 10:00 07/21/20 03:34 Chloride IV 0.03 units/min TITR ESTELA 9.09 mls/hr Administration Protocol 0.03 UNITS/MIN Norepinephrine 8 mg/ Sodium 250 mls @ 3.75 mls/hr 07/19/20 21:00 07/21/20 10:16 Chloride IV 14 mcg/min TITR ESTELA 26.25 mls/hr Administration Protocol 2 MCG/MIN Magnesium Sulfate 2 gm in 50 mls @ 25 mls/hr 07/21/20 12:03 Magnesium Sulfate 2gm/50ml IV 07/21/20 14:02 ONCE ONE Magnesium Hydroxide 30 ml 07/17/20 03:56 Magnesium Hydroxide (Mom) Oral Liqd Udc PO Q4H PRN Constipation Morphine Sulfate 2 mg 07/17/20 03:56 07/21/20 06:53 Morphine 2 Mg/1 Ml Inj IV 2 mg Q4H PRN Administration Pain, Moderate (4-6) Ondansetron HCl 4 mg 07/17/20 03:56 07/18/20 20:00 Ondansetron 4 Mg/2 Ml Inj IV 4 mg Q8H PRN Administration Nausea And Vomiting Sodium Chloride 10 ml 07/17/20 10:00 07/21/20 10:12 Sodium Chloride 0.9% 10 Ml Flush Syringe IV 10 ml BID ESTELA Administration Sodium Chloride 10 ml 07/17/20 03:56 Sodium Chloride 0.9% 10 Ml Flush Syringe IV PRN PRN LINE FLUSH
--- NOTE | 2020-07-21 14:44 | XRay Report ---
CHEST 1 VIEW 1:07 PM INDICATION / CLINICAL INFORMATION: Volumes status. COMPARISON: 07/19/20. FINDINGS: SUPPORT DEVICES: The tip of the endotracheal tube is 3.5 cm above the evelyn. The position of the sabra ogastric tube has not changed. HEART / MEDIASTINUM: Unchanged. LUNGS / PLEURA: Multifocal bilateral parenchymal opacities are again identified and have not changed configuration. Disease in the right lower lung has improved. Disease in the right upper lobe is uncha nged to slightly increased. Disease in the left retrocardiac region is stable. Disease in the remaind er of the left lung may be mildly increased. No large pleural effusion. No pneumothorax. ADDITIONAL FINDINGS: No significant additional findings. IMPRESSION: Moderate bilateral parenchymal opacities have changed configuration since the prior study . Signer Name: Warren Brown MD Signed: 07/21/2020 2:39 PM Workstation Name: [id number]
--- NOTE | 2020-07-21 15:49 | Progress Note ---
Assessment and Plan Cultures: 07/16/2020 blood culture: no growth 07/17/2020 cervix wet prep: High number of clue cells, no trichomonas or yeast seen. 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 #Septic shock: Fever improved, leukemoid reaction worsening, lactic acidosis, remains on 2 pressors. Unclear etiology ?UTI/PID ?colitis ?pneumonia. #Bilateral pneumonia versus pulmonary edema: Bilateral pleural effusions, diffuse bilateral patchy groundglass opacities #Acute hepatic failure: ?Toxin/med related v/s autoimmune, less likely infectious. Also ruling out HSV induced hepatic necrosis and related fulminant hepatic falure. GI following. LFTs and synthetic liver function seem to be gradu ally improving. #Acute kidney injury: nephrology following. #Possible UTI/PID: has been on empiric abx. #Diffuse colitis noted on CT scan: Already on antibiotics. On multiple pressors. More likely to be ischemia related. No active diarrhea. #Diffuse cerebral edema: Probably a combination of acute liver failure and hypoxic encephalopathy. #Acute thrombocytopenia: Worsening #Anemia: Worsening #Syphilis IgG positive, RPR titer non reactive, FTA-ABS is also nonreactive, so very likely it is a false positive #Acute encephalopathy: CT with diffuse brain edema Recs: -continue IV ceftriaxone -Continue renally dosed acyclovir -f/u HSV DNA PCR on serum, re-ordered, pending -Neurology consult -overall poor prognosis Brii Solares MD [facility] ([facility]) Office [phone] Subjective Date of service: 07/21/20 Principal diagnosis: Acute Liver Injury Interval history: Remains on pressors, Levophed and vasopressin, intubated, FiO2 40%, PEEP 6, no fever for 48 hours. Review of systems unable to obtain. Objective - Exam Narrative Exam: General appearance: Sedated intubated Eyes: anicteric sclerae, moist conjunctivae; no lid-lag; PERRLA HENT: Normocephalic, Atraumatic; normal external ears, nares open, oropharynx limited Neck: supple, tracheal midline, no JVD Lungs: Diminished breath sound bilaterally CV: Tachycardic Abdomen: Soft, non-tender; no masses or hepatosplenomegaly Extremities: no edema, no cyanosis Skin: No rash. Psych: Sedated Neuro: Sedated - Constitutional Vitals: Vital Signs Temp Pulse Resp BP Pulse Ox 97.8 F 91 H 25 H 114/69 97 07/21/20 12:00 07/21/20 15:00 07/21/20 15:00 07/21/20 15:00 07/21/20 15:00 Temperature -Last 24 Hours Temperature 97.8 F Temperature 98 F Temperature 98.4 F Temperature 97.4 F - Labs CBC & Chem 7: 07/20/20 11:07 07/21/20 00:03 Labs: Abnormal lab results 07/20/20 07/21/20 07/21/20 Range/Units 15:05 00:03 02:07 ABG pO2 (80.0-90.0) mm Hg ABG Base Excess (-2.0-3.0) mmol/L ABG Hemoglobin (12.0-16.0) gm/dl Oxyhemoglobin (95.0-99.0) % Sodium 146 H (137-145) mmol/L Potassium 2.8 L* 3.1 L (3.6-5.0) mmol/L Chloride 112.1 H (98-107) mmol/L BUN 54 H (7-17) mg/dL Creatinine 1.9 H (0.6-1.2) mg/dL Glucose 107 H (65-100) mg/dL POC Glucose 145 H (70-105) mg/dL Calcium 6.8 L (8.4-10.2) mg/dL Magnesium 0.90 L* (1.7-2.3) mg/dL 07/21/20 07/21/20 07/21/20 Range/Units 03:42 05:21 10:59 ABG pO2 98.2 H (80.0-90.0) mm Hg ABG Base Excess -3.8 L (-2.0-3.0) mmol/L ABG Hemoglobin 8.7 L (12.0-16.0) gm/dl Oxyhemoglobin 94.6 L (95.0-99.0) % Sodium (137-145) mmol/L Potassium (3.6-5.0) mmol/L Chloride (98-107) mmol/L BUN (7-17) mg/dL Creatinine (0.6-1.2) mg/dL Glucose (65-100) mg/dL POC Glucose 150 H 161 H (70-105) mg/dL Calcium (8.4-10.2) mg/dL Magnesium (1.7-2.3) mg/dL 07/21/20 Range/Units 13:59 ABG pO2 (80.0-90.0) mm Hg ABG Base Excess (-2.0-3.0) mmol/L ABG Hemoglobin (12.0-16.0) gm/dl Oxyhemoglobin (95.0-99.0) % Sodium (137-145) mmol/L Potassium (3.6-5.0) mmol/L Chloride (98-107) mmol/L BUN (7-17) mg/dL Creatinine (0.6-1.2) mg/dL Glucose (65-100) mg/dL POC Glucose 164 H (70-105) mg/dL Calcium (8.4-10.2) mg/dL Magnesium (1.7-2.3) mg/dL
[2020-07-21 16:49] LABS: BUN/Creatinine Ratio 60; Blood Urea Nitrogen 48 mg/dL (7-17); Calcium 7.3 mg/dL (8.4-10.2); Hemolysis Index 91
[2020-07-21] MEDS: POTASSIUM CHLORIDE 20 MEQ 20 MEQ/100 ML BAG IV SCH ×2 (17:52→18:01)
[2020-07-21] MEDS ORDERED: SODIUM BICARB 8.4% 50 MEQ/50 ML SYRINGE IV ONE (18:00)
--- NOTE | 2020-07-21 18:49 | Progress Note ---
Assessment and Plan - Patient Problems (1) Severe sepsis with septic shock Current Visit: Yes Status: Acute Plan to address problem: Sepsis protocol, IV pressor support, IV antibiotic therapy, IV fluid resuscitation therapy, maintain mean arterial pressure greater than or equal to 65, monitor urine output every shift, serial lactic acid level The high probability of a clinically significant, sudden or life threatening deterioration of the [neuro, cardiac, renal, pulmonary] system(s) required my full and direct attention, intervention and personal management. The aggregate critical care time was [90] minutes. This time is in addition to time spent performing reported procedures but includes the following: [x] Data Review and interpretation [x] Patient assessment and monitoring of vital signs [x] Documentation [x] Medication orders and management (2) Acute respiratory failure Current Visit: Yes Status: Acute Qualifiers: Respiratory failure complication: hypoxia Qualified Code(s): J96.01 - Acute respiratory failure with hypoxia Plan to address problem: Patient intubated and placed on ventilatory support overnight. Wean vent as tolerated, pulmonary team consulted, spontaneous breathing trial daily, sedation holiday, supportive care. (3) Acute liver failure Current Visit: Yes Status: Acute Plan to address problem: Supportive care, GI team consulted. Pt has poor prognosis, and currently unstable for transfer. (4) Metabolic acidosis Current Visit: Yes Status: Acute Plan to address problem: BMP, IV bicarbonate therapy, repeat BMP (5) UTI (urinary tract infection) Current Visit: Yes Status: Acute Qualifiers: Encounter type: initial encounter Plan to address problem: IV antibiotic therapy, supportive care. (6) DVT prophylaxis Current Visit: Yes Status: Acute Plan to address problem: SCD to bilateral lower extremities while in bed (7) Acute kidney injury (RINA) with acute tubular necrosis (ATN) Current Visit: Yes Status: Acute Plan to address problem: Nephrology team consulted, IV fluid resuscitation therapy, monitor urine output every shift, monitor fluid balance, supportive care. (8) Cardiac arrest Current Visit: Yes Status: Acute Plan to address problem: Patient experienced cardiac arrest overnight. Patient treated with ACLS protocol with eventual return of perfusing cardiac rhythm. Patient has poor prognosis. (9) Toxic metabolic encephalopathy Current Visit: Yes Status: Acute Plan to address problem: CT scan head, when medically stable, supportive care, continue medical management. Suspect anoxic brain injury. (10) Advance care planning Current Visit: Yes Status: Acute Plan to address problem: Disease education conducted, patient is full code, patient prognosis discussed with patient mother Tete Gao., patient mother informed the patient shows no sign of brain function and is on multiple medications to maintain her current status. Patient mother informed that patient has experienced nonsurvivable physiologic insult. Patient family acknowledges prognosis. Patient family informed of care plan. +30 minutes. History Interval history: 29 YO Female HD #6 with Severe Sepsis complicated by Shock, Fulminant Hepatic Failure present on admission, ETOH Dependence, RINA with ATN, Toxic Metabolic E ncephalopathy, Elevated INR, Metabolic Acidosis, Acute Respiratory Failure S/P Cardiac Arrest. Patient is critically ill and has very poor prognosis. Patient experienced cardiac and suspected Anoxic Brain Injury. Patient currently intubated and on ventilatory support. Patient has poor prognosis. No significant overnight improvement. Hospitalist Physical - Constitutional Vitals: Temp Pulse Resp BP Pulse Ox 97.8 F 90 25 H 120/72 98 07/21/20 12:00 07/21/20 16:38 07/21/20 15:00 07/21/20 16:38 07/21/20 16:38 General appearance: Present: severe distress, other (Lethargic not quite encephalopathic alert appears to be tired. Patient states she is just fatigued.) - EENT Eyes: Present: mydriasis - Neck Neck: Present: supple - Respiratory Respiratory effort: labored Respiratory: bilateral: diminished, rhonchi - Cardiovascular Rhythm: regular Heart Sounds: Present: S1 & S2 - Extremities Extremity abnormal: edema Peripheral Pulses: abnormal (1+ and equal bilaterally, capillary refill greater than 3.5 seconds) - Abdominal General gastrointestinal: soft, distended - Integumentary Integumentary: Present: warm, clammy, decreased turgor - Psychiatric Psychiatric: no appropriate mood/affect, no intact judgment & insight, no memory intact - Neurologic Neurologic: no CNII-XII intact, focal deficits, no moves all extremities, no gait normal HEART Score - HEART Score Troponin: Troponin T < 0.010 ng/mL (0.00-0.029) 07/16/20 20:47 Results - Labs CBC & Chem 7: 07/20/20 11:07 07/21/20 16:14 Labs: Laboratory Last Values WBC 27.7 K/mm3 (4.5-11.0) H 07/20/20 11:07 RBC 2.50 M/mm3 (3.65-5.03) L 07/20/20 11:07 Hgb 8.4 gm/dl (10.1-14.3) L 07/20/20 11:07 Hct 24.4 % (30.3-42.9) L 07/20/20 11:07 MCV 98 fl (79-97) H 07/20/20 11:07 MCH 34 pg (28-32) H 07/20/20 11:07 MCHC 35 % (30-34) H 07/20/20 11:07 RDW 19.8 % (13.2-15.2) H 07/20/20 11:07 Plt Count 78 K/mm3 (140-440) L 07/20/20 11:07 Lymph % (Auto) 9.7 % (13.4-35.0) L 07/19/20 05:41 Alfalfa % (Auto) 8.3 % (0.0-7.3) H 07/19/20 05:41 Eos % (Auto) 0.8 % (0.0-4.3) 07/19/20 05:41 Baso % (Auto) 0.0 % (0.0-1.8) 07/19/20 05:41 Lymph # (Auto) 1.5 K/mm3 (1.2-5.4) 07/19/20 05:41 [place] # (Auto) 1.3 K/mm3 (0.0-0.8) H 07/19/20 05:41 Eos # (Auto) 0.1 K/mm3 (0.0-0.4) 07/19/20 05:41 Baso # (Auto) 0.0 K/mm3 (0.0-0.1) 07/19/20 05:41 Add Manual Diff Complete 07/19/20 Unknown Total Counted 100 07/19/20 Unknown Seg Neutrophils % 81.2 % (40.0-70.0) H 07/19/20 05:41 Seg Neuts % (Manual) 66.0 % (40.0-70.0) 07/19/20 Unknown Band Neutrophils % 20.0 % 07/19/20 Unknown Lymphocytes % (Manual) 6.0 % (13.4-35.0) L 07/19/20 Unknown Monocytes % (Manual) 8.0 % (0.0-7.3) H 07/19/20 Unknown Metamyelocytes % 1.0 % 07/19/20 05:41 Myelocytes % 1.0 % 07/19/20 05:41 Nucleated RBC % Not Reportable 07/19/20 Unknown Seg Neutrophils # 12.9 K/mm3 (1.8-7.7) H 07/19/20 05:41 Seg Neutrophils # Man 17.6 K/mm3 (1.8-7.7) H 07/19/20 Unknown Band Neutrophils # 5.3 K/mm3 07/19/20 Unknown Lymphocytes # (Manual) 1.6 K/mm3 (1.2-5.4) 07/19/20 Unknown Abs React Lymphs (Man) 0.0 K/mm3 07/19/20 Unknown Monocytes # (Manual) 2.1 K/mm3 (0.0-0.8) H 07/19/20 Unknown Eosinophils # (Manual) 0.0 K/mm3 (0.0-0.4) 07/19/20 Unknown Basophils # (Manual) 0.0 K/mm3 (0.0-0.1) 07/19/20 Unknown Metamyelocytes # 0.0 K/mm3 07/19/20 Unknown Myelocytes # 0.0 K/mm3 07/19/20 Unknown Promyelocytes # 0.0 K/mm3 07/19/20 Unknown Blast Cells # 0.0 K/mm3 07/19/20 Unknown Pathologist Review 07/16/20 20:47 WBC Morphology Not Reportable 07/19/20 Unknown Hypersegmented Neuts Not Reportable 07/19/20 Unknown Hyposegmented Neuts Not Reportable 07/19/20 Unknown Hypogranular Neuts Not Reportable 07/19/20 Unknown Smudge Cells Not Reportable 07/19/20 Unknown Toxic Granulation Not Reportable 07/19/20 Unknown Toxic Vacuolation Not Reportable 07/19/20 Unknown Dohle Bodies Not Reportable 07/19/20 Unknown Pelger-Huet Anomaly Not Reportable 07/19/20 Unknown Fede Rods Not Reportable 07/19/20 Unknown Platelet Estimate Consistent w auto 07/19/20 Unknown Clumped Platelets Not Reportable 07/19/20 Unknown Plt Clumps, EDTA Not Reportable 07/19/20 Unknown Large Platelets Not Reportable 07/19/20 Unknown Giant Platelets Not Reportable 07/19/20 Unknown Platelet Satelliting Not Reportable 07/19/20 Unknown Plt Morphology Comment Not Reportable 07/19/20 Unknown RBC Morphology Not Reportable 07/19/20 Unknown Dimorphic RBCs Not Reportable 07/19/20 Unknown Polychromasia Not Reportable 07/19/20 Unknown Hypochromasia Not Reportable 07/19/20 Unknown Poikilocytosis Not Reportable 07/19/20 Unknown Anisocytosis 1+ 07/19/20 Unknown Microcytosis Not Reportable 07/19/20 Unknown Macrocytosis Not Reportable 07/19/20 Unknown Spherocytes Not Reportable 07/19/20 Unknown Pappenheimer Bodies Not Reportable 07/19/20 Unknown Sickle Cells Not Reportable 07/19/20 Unknown Target Cells Not Reportable 07/19/20 Unknown Tear Drop Cells Not Reportable 07/19/20 Unknown Ovalocytes Not Reportable 07/19/20 Unknown Helmet Cells Not Reportable 07/19/20 Unknown [place] Bodies Not Reportable 07/19/20 Unknown [place] Rings Not Reportable 07/19/20 Unknown [place] Cells Not Reportable 07/19/20 Unknown Bite Cells Not Reportable 07/19/20 Unknown Crenated Cell Not Reportable 07/19/20 Unknown Elliptocytes Not Reportable 07/19/20 Unknown Acanthocytes (Spur) Not Reportable 07/19/20 Unknown Rouleaux Not Reportable 07/19/20 Unknown Hemoglobin C Crystals Not Reportable 07/19/20 Unknown Schistocytes Not Reportable 07/19/20 Unknown Malaria parasites Not Reportable 07/19/20 Unknown Richard Bodies Not Reportable 07/19/20 Unknown Hem Pathologist Commnt No 07/19/20 Unknown PT 33.4 Sec. (12.2-14.9) H 07/19/20 Unknown INR 3.25 (0.87-1.13) H 07/19/20 Unknown ABG pH 7.378 pH Units (7.350-7.450) 07/21/20 05:21 POC ABG pCO2 32.5 mmHg (32.0-48.0) 07/20/20 10:42 ABG pCO2 36.2 mm Hg 07/21/20 05:21 POC ABG pO2 113.1 mmHg (83-108) H 07/20/20 10:42 ABG pO2 98.2 mm Hg (80.0-90.0) H 07/21/20 05:21 POC ABG HCO3 22.0 07/20/20 10:42 ABG HCO3 20.9 mmol/L (20.0-26.0) 07/21/20 05:21 ABG O2 Saturation 97.5 % (95.0-99.0) 07/21/20 05:21 ABG O2 Content 11.7 (0.0-44) 07/21/20 05:21 POC ABG Base Excess -1.6 07/20/20 10:42 ABG Base Excess -3.8 mmol/L (-2.0-3.0) L 07/21/20 05:21 ABG Hemoglobin 8.7 gm/dl (12.0-16.0) L 07/21/20 05:21 ABG Oxyhemoglobin 96.3 (94-98) 07/20/20 10:42 ABG Carboxyhemoglobin 2.5 % (0.0-5.0) 07/21/20 05:21 ABG Methemoglobin 0.5 % (0.0-1.5) 07/21/20 05:21 ABG Sodium 140.2 mmol/L (136.0-145.0) 07/20/20 10:42 ABG Potassium 2.9 mmol/L (3.40-4.50) L 07/20/20 10:42 ABG Chloride 114.0 mmol/L (98-107) H 07/20/20 10:42 ABG Glucose 135 mg/dL (65-95) H 07/20/20 10:42 VBG pH 7.085 (7.320-7.420) L* 07/17/20 01:46 Oxyhemoglobin 94.6 % (95.0-99.0) L 07/21/20 05:21 Carboxyhemoglobin 1.9 (0.5-1.5) H 07/20/20 10:42 FiO2 40 % 07/21/20 05:21 Sodium 138 mmol/L (137-145) D 07/21/20 16:14 Potassium 3.0 mmol/L (3.6-5.0) L 07/21/20 16:14 Chloride 112.5 mmol/L (98-107) H 07/21/20 16:14 Carbon Dioxide 16 mmol/L (22-30) L D 07/21/20 16:14 Anion Gap 13 mmol/L 07/21/20 16:14 BUN 48 mg/dL (7-17) H 07/21/20 16:14 Creatinine 0.8 mg/dL (0.6-1.2) D 07/21/20 16:14 Estimated GFR > 60 ml/min 07/21/20 16:14 BUN/Creatinine Ratio 60 % 07/21/20 16:14 Glucose 157 mg/dL (65-100) H 07/21/20 16:14 POC Glucose 171 mg/dL (70-105) H 07/21/20 17:22 Lactic Acid 3.90 mmol/L (0.7-2.0) H* 07/19/20 Unknown Calcium 7.3 mg/dL (8.4-10.2) L 07/21/20 16:14 Phosphorus TNR 07/20/20 11:07 Magnesium 2.20 mg/dL (1.7-2.3) 07/21/20 16:14 Total Bilirubin 3.80 mg/dL (0.1-1.2) H 07/19/20 Unknown Direct Bilirubin 3.0 mg/dL (0-0.2) H 07/18/20 Unknown Indirect Bilirubin 0.7 mg/dL 07/18/20 Unknown AST 1228 units/L (5-40) H 07/19/20 Unknown ALT 516 units/L (7-56) H 07/19/20 Unknown Alkaline Phosphatase 113 units/L (35-129) 07/19/20 Unknown Ammonia 96.0 umol/L (25-60) H 07/19/20 05:41 Total Creatine Kinase 332 units/L (30-135) H 07/17/20 09:23 Troponin T < 0.010 ng/mL (0.00-0.029) 07/16/20 20:47 Total Protein 3.6 g/dL (6.3-8.2) L D 07/19/20 Unknown Albumin 1.9 g/dL (3.9-5) L 07/19/20 Unknown Albumin/Globulin Ratio 1.1 % 07/19/20 Unknown Lipase 14 units/L (13-60) 07/17/20 01:46 TSH 0.354 mlU/mL (0.270-4.200) 07/16/20 20:47 HCG, Qual Negative (Negative) 07/19/20 07:35 Arterial Blood Glucose 135 mg/dL (65-95) H 07/20/20 10:42 Arterial Blood Ionized Calcium 3.8 mg/dL (4.6-5.3) L 07/20/20 10:42 Urine Color Red (Yellow) 07/16/20 03:54 Urine Turbidity Turbid (Clear) 07/16/20 03:54 Urine pH 5.0 (5.0-7.0) 07/16/20 03:54 Ur Specific [place] 1.013 (1.003-1.030) 07/16/20 03:54 Urine Protein >500 mg/dL (Negative) 07/16/20 03:54 Urine Glucose (UA) Neg mg/dL (Negative) 07/16/20 03:54 Urine Ketones Tr mg/dL (Negative) 07/16/20 03:54 Urine Blood Lg (Negative) 07/16/20 03:54 Urine Nitrite Neg (Negative) 07/16/20 03:54 Urine Bilirubin Neg (Negative) 07/16/20 03:54 Urine Urobilinogen < 2.0 mg/dL (<2.0) 07/16/20 03:54 Ur Leukocyte Esterase Sm (Negative) 07/16/20 03:54 Urine WBC (Auto) 57.0 /HPF (0.0-6.0) H 07/16/20 03:54 Urine RBC (Auto) 35.0 /HPF (0.0-6.0) 07/16/20 03:54 U Epithel Cells (Auto) 23.0 /HPF (0-13.0) H 07/16/20 03:54 Urine Bacteria (Auto) 1+ /HPF (Negative) 07/16/20 03:54 Urine WBC Clumps 3+ /HPF 07/16/20 03:54 Urine Mucus Few /HPF 07/16/20 03:54 Acetaminophen 5.0 ug/mL (10.0-30.0) L 07/17/20 09:23 Syphilis IgG Antibody Reactive (NonReactive) A 07/17/20 11:08 RPR Titer Nr 07/17/20 11:08 T.pallidum Ab (FTA-ABS) Nonreactive (Nonreactive) 07/17/20 11:08 C.trachomatis DNA (SDA) Not detected (Not Detected) 07/17/20 02:25 Hepatitis A IgM Ab Non-reactive (NonReactive) 07/17/20 11:08 Hep Bs Antigen Non-reactive (Negative) 07/17/20 11:08 Hep B Core IgM Ab Non-reactive (NonReactive) 07/17/20 11:08 Hepatitis C Antibody Non-reactive (NonReactive) 07/17/20 11:08 HSV I Specific Ab 5.23 Index (<0.90) H 07/17/20 11:08 HIV 1&2 Antibody Rapid Non react (Non React) 07/17/20 11:08 HIV P24 Antigen Non react (Non React) 07/17/20 11:08 N.gonorrhoeae DNA (SDA) Not detected (Not Detected) 07/17/20 02:25 Blood Type O POSITIVE 07/19/20 07:35 Antibody Screen Negative 07/19/20 07:35 Crossmatch See Detail 07/19/20 07:35 Microbiology: Microbiology 07/16/20 23:00 Peripheral/Venous Blood Culture - Preliminary NO GROWTH AFTER 4 DAYS 07/16/20 23:06 Peripheral/Venous Blood Culture - Preliminary NO GROWTH AFTER 4 DAYS 07/16/20 03:54 Urine,Clean Catch Urine Culture - Final [place]/IV: Voiding Method Indwelling Catheter IV Catheter Type [Right Triple Lumen Cath Femoral] IV Catheter Type [Right Hand] Peripheral IV IV Catheter Type [Left Hand] INT / Saline Lock IV Catheter Type [Acetadote ( Peripheral IV Acetylcysteine IV) 7,500 mg In D5w 1,000 ml @ 62.5 mls/hr IV ONCE ONE Rx#:[id number]] IV Catheter Type [Sodium Triple Lumen Cath Bicarbonate 50 Meq In NaCl 0.9 % 1000 ml 1,000 ml @ 100 mls/ hr IV DIRECT ESTELA Rx#: [id number]] Active Medications - Current Medications Current Medications: Generic Name Dose Route Start Last Admin Trade Name Freq PRN Reason Stop Dose Admin Acyclovir 370 mg/ Sodium 107.4 mls @ 100 mls/hr 07/17/20 12:00 07/21/20 10:06 Chloride IV 100 mls/hr Q12HR ESTELA Administration Protocol Ceftriaxone Sodium 1 gm in 50 mls @ 100 mls/hr 07/17/20 12:00 07/21/20 10:06 Rocephin/Ns 1 Gm/50 Ml IV 100 mls/hr Q24HR ESTELA Administration Protocol Thiamine HCl 100 mg/ Sodium 51 mls @ 100 mls/hr 07/18/20 10:00 07/21/20 10:06 Chloride IV 100 mls/hr QDAY ESTELA Administration Folic Acid 1 mg/ Sodium 50.2 mls @ 200.8 mls/hr 07/18/20 10:00 07/21/20 10:07 Chloride IV 200.8 mls/hr QDAY ESTELA Administration Pantoprazole Sodium 80 mg/ 100 mls @ 10 mls/hr 07/19/20 06:00 07/19/20 06:02 Sodium Chloride IV 8 mg/hr DIRECT ESTELA 10 mls/hr Administration 8 MG/HR Dopamine HCl/Dextrose 800 mg in 250 mls @ 2.807 mls/hr 07/19/20 05:45 07/19/20 05:55 Intropin Drip 800 Mg/D5w 250 Ml IV 20 mcg/kg/min TITR ESTELA 28.066 mls/hr Administration Protocol 2 MCG/KG/MIN Vasopressin 20 unit/ Sodium 101 mls @ 9.09 mls/hr 07/19/20 10:00 07/21/20 16:10 Chloride IV 0.03 units/min TITR ESTELA 9.09 mls/hr Administration Protocol 0.03 UNITS/MIN Norepinephrine 8 mg/ Sodium 250 mls @ 3.75 mls/hr 07/19/20 21:00 07/21/20 11:00 Chloride IV 10 mcg/min TITR ESTELA 18.75 mls/hr Titration Protocol 2 MCG/MIN Potassium Chloride 20 meq in 100 mls @ 100 mls/hr 07/21/20 18:00 07/21/20 18:01 Kcl 20meq/100ml IV 07/21/20 19:59 100 mls/hr Q1H ESTELA Administration Magnesium Hydroxide 30 ml 07/17/20 03:56 Magnesium Hydroxide (Mom) Oral Liqd Udc PO Q4H PRN Constipation Morphine Sulfate 2 mg 07/17/20 03:56 07/21/20 06:53 Morphine 2 Mg/1 Ml Inj IV 2 mg Q4H PRN Administration Pain, Moderate (4-6) Ondansetron HCl 4 mg 07/17/20 03:56 07/18/20 20:00 Ondansetron 4 Mg/2 Ml Inj IV 4 mg Q8H PRN Administration Nausea And Vomiting Sodium Chloride 10 ml 07/17/20 10:00 07/21/20 10:12 Sodium Chloride 0.9% 10 Ml Flush Syringe IV 10 ml BID ESTELA Administration Sodium Chloride 10 ml 07/17/20 03:56 Sodium Chloride 0.9% 10 Ml Flush Syringe IV PRN PRN LINE FLUSH
--- NOTE | 2020-07-21 19:46 | Progress Note ---
Assessment and Plan Imp: 1. Acute liver failure of ? etiology 2. RINA 3. Acute respiratory failure, hypoxia 4. S/p CP arrest 5. Encephalopathy, probably anoxic 6. Pulmonary edema versus aspiration pneumonitis 7. Lactic acidosis 8. NAGMA Rec: 1. Avoid all sedation; d/c Morphine 2. Mentation precludes extubation 3. S/p Sodium bicarb per renal; repeat BMP in AM 4. Recommend formal neurology evaluation 5. Need to start TFs soon, if okay with GI 6. Wean pressors to keep MAP 65 or > 7. SCDs and PPI 8. Prognosis is very poor No family present; CCt 31 minutes Subjective Date of service: 07/21/20 Principal diagnosis: Acute Liver Injury Interval history: ACVC 25/450/40%/+6. No events. Unresponsive/comatose. Cannot give history. On Vasopressin and Levophed. Active Medications Acyclovir 370 mg/ Sodium (Chloride) 107.4 mls @ 100 mls/hr IV Q12HR ESTELA; Protocol Last Admin: 07/21/20 10:06 Dose: 100 mls/hr Documented by: Ceftriaxone Sodium (Rocephin/Ns 1 Gm/50 Ml) 1 gm in 50 mls @ 100 mls/hr IV Q24HR ESTELA; Protocol Last Admin: 07/21/20 10:06 Dose: 100 mls/hr Documented by: Thiamine HCl 100 mg/ Sodium (Chloride) 51 mls @ 100 mls/hr IV QDAY ESTELA Last Admin: 07/21/20 10:06 Dose: 100 mls/hr Documented by: Folic Acid 1 mg/ Sodium (Chloride) 50.2 mls @ 200.8 mls/hr IV QDAY ESTELA Last Admin: 07/21/20 10:07 Dose: 200.8 mls/hr Documented by: Pantoprazole Sodium 80 mg/ (Sodium Chloride) 100 mls @ 10 mls/hr IV DIRECT ESTELA Last Admin: 07/19/20 06:02 Dose: 8 mg/hr, 10 mls/hr Documented by: Dopamine HCl/Dextrose (Intropin Drip 800 Mg/D5w 250 Ml) 800 mg in 250 mls @ 2.807 mls/hr IV TITR ESTELA; Protocol Last Admin: 07/19/20 05:55 Dose: 20 mcg/kg/min, 28.066 mls/hr Documented by: Vasopressin 20 unit/ Sodium (Chloride) 101 mls @ 9.09 mls/hr IV TITR ESTELA; Protocol Last Admin: 07/21/20 16:10 Dose: 0.03 units/min, 9.09 mls/hr Documented by: Norepinephrine 8 mg/ Sodium (Chloride) 250 mls @ 3.75 mls/hr IV TITR ESTELA; Protocol Last Titration: 07/21/20 11:00 Dose: 10 mcg/min, 18.75 mls/hr Documented by: Potassium Chloride (Kcl 20meq/100ml) 20 meq in 100 mls @ 100 mls/hr IV Q1H ESTELA Stop: 07/21/20 19:59 Last Admin: 07/21/20 18:01 Dose: 100 mls/hr Documented by: Magnesium Hydroxide (Magnesium Hydroxide (Mom) Oral Liqd Udc) 30 ml PO Q4H PRN PRN Reason: Constipation Ondansetron HCl (Ondansetron 4 Mg/2 Ml Inj) 4 mg IV Q8H PRN PRN Reason: Nausea And Vomiting Last Admin: 07/18/20 20:00 Dose: 4 mg Documented by: Sodium Chloride (Sodium Chloride 0.9% 10 Ml Flush Syringe) 10 ml IV BID ESTELA Last Admin: 07/21/20 10:12 Dose: 10 ml Documented by: Sodium Chloride (Sodium Chloride 0.9% 10 Ml Flush Syringe) 10 ml IV PRN PRN PRN Reason: LINE FLUSH Objective Vital Signs - 12hr 07/21/20 07/21/20 07/21/20 07:50 07:51 08:00 Temperature 98 F Pulse Rate 104 H 104 H 104 H Pulse Rate [ From Monitor] Respiratory 25 H 25 H Rate Blood Pressure 135/81 135/81 138/82 O2 Sat by Pulse 97 97 94 Oximetry 07/21/20 07/21/20 07/21/20 08:11 08:21 08:30 Temperature Pulse Rate 104 H 104 H 104 H Pulse Rate [ From Monitor] Respiratory 25 H 25 H 25 H Rate Blood Pressure 138/82 138/86 144/91 O2 Sat by Pulse 97 97 95 Oximetry 07/21/20 07/21/20 07/21/20 08:41 08:51 09:00 Temperature Pulse Rate 104 H 104 H 104 H Pulse Rate [ From Monitor] Respiratory 25 H 25 H 25 H Rate Blood Pressure 144/91 139/83 127/74 O2 Sat by Pulse 96 96 94 Oximetry 07/21/20 07/21/20 07/21/20 09:11 09:21 09:30 Temperature Pulse Rate 104 H 104 H 103 H Pulse Rate [ From Monitor] Respiratory 25 H 25 H 25 H Rate Blood Pressure 127/74 124/72 126/73 O2 Sat by Pulse 95 95 94 Oximetry 07/21/20 07/21/20 07/21/20 09:41 09:51 10:00 Temperature Pulse Rate 103 H 103 H 102 H Pulse Rate [ From Monitor] Respiratory 25 H 25 H 25 H Rate Blood Pressure 126/73 127/76 122/68 O2 Sat by Pulse 96 96 95 Oximetry 07/21/20 07/21/20 07/21/20 10:10 10:21 10:30 Temperature Pulse Rate 103 H 102 H 101 H Pulse Rate [ From Monitor] Respiratory 25 H 25 H 25 H Rate Blood Pressure 122/68 115/66 125/75 O2 Sat by Pulse 96 95 94 Oximetry 07/21/20 07/21/20 07/21/20 10:41 10:51 11:00 Temperature Pulse Rate 102 H 102 H 102 H Pulse Rate [ From Monitor] Respiratory 25 H 25 H 25 H Rate Blood Pressure 125/75 108/58 109/63 O2 Sat by Pulse 95 94 94 Oximetry 07/21/20 07/21/20 07/21/20 11:11 11:21 11:30 Temperature Pulse Rate 102 H 101 H 100 H Pulse Rate [ From Monitor] Respiratory 25 H 25 H 25 H Rate Blood Pressure 109/63 107/61 105/59 O2 Sat by Pulse 95 95 93 Oximetry 07/21/20 07/21/20 07/21/20 11:41 11:51 12:00 Temperature 97.8 F Pulse Rate 100 H 99 H 99 H Pulse Rate [ 99 H From Monitor] Respiratory 25 H 25 H 25 H Rate Blood Pressure 105/59 100/54 101/56 O2 Sat by Pulse 96 96 94 Oximetry 07/21/20 07/21/20 07/21/20 12:11 12:21 12:30 Temperature Pulse Rate 98 H 98 H 97 H Pulse Rate [ From Monitor] Respiratory 25 H 25 H 25 H Rate Blood Pressure 101/56 103/57 104/59 O2 Sat by Pulse 97 97 96 Oximetry 07/21/20 07/21/20 07/21/20 12:31 12:41 12:51 Temperature Pulse Rate 97 H 96 H 95 H Pulse Rate [ From Monitor] Respiratory 25 H 25 H Rate Blood Pressure 104/39 104/59 107/60 O2 Sat by Pulse 98 98 98 Oximetry 07/21/20 07/21/20 07/21/20 13:00 13:11 13:21 Temperature Pulse Rate 96 H 96 H 96 H Pulse Rate [ From Monitor] Respiratory 25 H 25 H 25 H Rate Blood Pressure 97/49 97/49 86/49 O2 Sat by Pulse 96 97 97 Oximetry 07/21/20 07/21/20 07/21/20 13:30 13:41 13:51 Temperature Pulse Rate 95 H 95 H 95 H Pulse Rate [ From Monitor] Respiratory 25 H 25 H 25 H Rate Blood Pressure 84/45 84/45 87/42 O2 Sat by Pulse 95 96 97 Oximetry 07/21/20 07/21/20 07/21/20 14:00 14:11 14:21 Temperature Pulse Rate 94 H 93 H 93 H Pulse Rate [ From Monitor] Respiratory 25 H 25 H 25 H Rate Blood Pressure 97/50 97/50 96/47 O2 Sat by Pulse 98 97 98 Oximetry 07/21/20 07/21/20 07/21/20 14:31 14:41 14:51 Temperature Pulse Rate 94 H 93 H 92 H Pulse Rate [ From Monitor] Respiratory 24 25 H 25 H Rate Blood Pressure 96/47 82/43 111/73 O2 Sat by Pulse 92 96 97 Oximetry 07/21/20 07/21/20 07/21/20 15:00 15:11 15:21 Temperature Pulse Rate 91 H 91 H 91 H Pulse Rate [ From Monitor] Respiratory 25 H 25 H 25 H Rate Blood Pressure 114/69 114/69 115/71 O2 Sat by Pulse 97 98 98 Oximetry 07/21/20 07/21/20 07/21/20 15:30 15:41 15:51 Temperature Pulse Rate 91 H 90 90 Pulse Rate [ From Monitor] Respiratory 25 H 25 H 25 H Rate Blood Pressure 115/70 115/70 99/53 O2 Sat by Pulse 97 98 98 Oximetry 07/21/20 07/21/20 07/21/20 16:00 16:01 16:11 Temperature 98.2 F Pulse Rate 89 89 89 Pulse Rate [ 89 From Monitor] Respiratory 25 H 25 H 25 H Rate Blood Pressure 91/43 91/43 O2 Sat by Pulse 97 97 99 Oximetry 07/21/20 07/21/20 07/21/20 16:21 16:30 16:38 Temperature Pulse Rate 89 90 90 Pulse Rate [ From Monitor] Respiratory 25 H 25 H Rate Blood Pressure 110/65 120/72 120/72 O2 Sat by Pulse 98 96 98 Oximetry 07/21/20 07/21/20 07/21/20 16:41 16:51 17:00 Temperature Pulse Rate 90 89 89 Pulse Rate [ From Monitor] Respiratory 25 H 25 H 25 H Rate Blood Pressure 120/72 114/66 109/57 O2 Sat by Pulse 98 97 97 Oximetry 07/21/20 07/21/20 07/21/20 17:11 17:21 17:30 Temperature Pulse Rate 89 88 88 Pulse Rate [ From Monitor] Respiratory 25 H 25 H 25 H Rate Blood Pressure 109/57 110/66 111/64 O2 Sat by Pulse 98 98 97 Oximetry 07/21/20 07/21/20 07/21/20 17:41 17:51 18:01 Temperature Pulse Rate 88 88 92 H Pulse Rate [ From Monitor] Respiratory 25 H 25 H 25 H Rate Blood Pressure 111/64 110/67 101/53 O2 Sat by Pulse 98 98 96 Oximetry 07/21/20 07/21/20 07/21/20 18:11 18:21 18:30 Temperature Pulse Rate 90 90 90 Pulse Rate [ From Monitor] Respiratory 25 H 25 H 25 H Rate Blood Pressure 101/53 112/65 111/61 O2 Sat by Pulse 95 95 94 Oximetry 07/21/20 07/21/20 07/21/20 18:41 18:51 19:00 Temperature Pulse Rate 90 91 H 92 H Pulse Rate [ From Monitor] Respiratory 25 H 25 H 25 H Rate Blood Pressure 111/61 107/62 104/58 O2 Sat by Pulse 96 95 94 Oximetry 07/21/20 07/21/20 07/21/20 19:11 19:21 19:30 Temperature Pulse Rate 92 H 93 H 93 H Pulse Rate [ From Monitor] Respiratory 25 H 25 H 23 Rate Blood Pressure 104/58 103/58 106/61 O2 Sat by Pulse 96 96 95 Oximetry Constitutional: comatose Eyes: icteric ENT: other (orally intubated, no sedation) Neck: supple Effort: normal Ascultation: Bilateral: other (coarse BS bilaterally) Cardiovascular: regular rate and rhythm (no mrg) Gastrointestinal: normoactive bowel sounds, soft, non-tender, non-distended Integumentary: normal Extremities: no cyanosis, edema (1+ bilateral LE edema) Neurologic: other (unresponsive) Psychiatric: other (unable to assess) CBC and BMP: 07/20/20 11:07 07/21/20 16:14 ABG, PT/INR, D-dimer: ABG ABG pH 7.378 pH Units (7.350-7.450) 07/21/20 05:21 POC ABG pCO2 32.5 mmHg (32.0-48.0) 07/20/20 10:42 ABG pCO2 36.2 mm Hg 07/21/20 05:21 POC ABG pO2 113.1 mmHg (83-108) H 07/20/20 10:42 ABG pO2 98.2 mm Hg (80.0-90.0) H 07/21/20 05:21 POC ABG HCO3 22.0 07/20/20 10:42 ABG O2 Saturation 97.5 % (95.0-99.0) 07/21/20 05:21 PT/INR, D-dimer PT 33.4 Sec. (12.2-14.9) H 07/19/20 Unknown INR 3.25 (0.87-1.13) H 07/19/20 Unknown Abnormal lab findings: Abnormal Labs 07/16/20 07/16/20 07/16/20 03:54 20:47 20:47 WBC 33.9 H RBC Hgb Hct MCV 107 H MCH 34 H MCHC RDW 22.0 H Plt Count Lymph % (Auto) [place] % (Auto) Lymph # (Auto) [place] # (Auto) Eos # (Auto) Seg Neutrophils % Seg Neuts % (Manual) 89.0 H Lymphocytes % (Manual) 2.0 L Monocytes % (Manual) Nucleated RBC % 1.0 H Seg Neutrophils # Seg Neutrophils # Man 30.2 H Lymphocytes # (Manual) 0.7 L Monocytes # (Manual) 1.4 H PT INR ABG pH POC ABG pCO2 POC ABG pO2 ABG pO2 ABG Base Excess ABG Hemoglobin ABG Oxyhemoglobin ABG Potassium ABG Chloride ABG Glucose VBG pH Oxyhemoglobin Carboxyhemoglobin Sodium Potassium 5.1 H Chloride Carbon Dioxide 9 L* BUN 20 H Creatinine 1.9 H Glucose 30 L* POC Glucose Lactic Acid Calcium Magnesium Total Bilirubin 5.40 H Direct Bilirubin AST 42267 H ALT 1829 H Alkaline Phosphatase 141 H Ammonia Total Creatine Kinase Total Protein Albumin Lipase 9 L Arterial Blood Glucose Arterial Blood Ionized Calcium Urine WBC (Auto) 57.0 H U Epithel Cells (Auto) 23.0 H Acetaminophen Syphilis IgG Antibody HSV I Specific Ab Crossmatch 07/16/20 07/16/20 07/16/20 20:47 22:43 23:06 WBC RBC Hgb Hct MCV MCH MCHC RDW Plt Count Lymph % (Auto) [place] % (Auto) Lymph # (Auto) [place] # (Auto) Eos # (Auto) Seg Neutrophils % Seg Neuts % (Manual) Lymphocytes % (Manual) Monocytes % (Manual) Nucleated RBC % Seg Neutrophils # Seg Neutrophils # Man Lymphocytes # (Manual) Monocytes # (Manual) PT INR ABG pH POC ABG pCO2 POC ABG pO2 ABG pO2 ABG Base Excess ABG Hemoglobin ABG Oxyhemoglobin ABG Potassium ABG Chloride ABG Glucose VBG pH Oxyhemoglobin Carboxyhemoglobin Sodium Potassium Chloride Carbon Dioxide BUN Creatinine Glucose POC Glucose 140 H Lactic Acid 14.90 H* Calcium Magnesium Total Bilirubin Direct Bilirubin AST ALT Alkaline Phosphatase Ammonia Total Creatine Kinase 230 H Total Protein Albumin Lipase Arterial Blood Glucose Arterial Blood Ionized Calcium Urine WBC (Auto) U Epithel Cells (Auto) Acetaminophen Syphilis IgG Antibody HSV I Specific Ab Crossmatch 07/17/20 07/17/20 07/17/20 01:46 01:46 04:55 WBC RBC Hgb Hct MCV MCH MCHC RDW Plt Count Lymph % (Auto) [place] % (Auto) Lymph # (Auto) [place] # (Auto) Eos # (Auto) Seg Neutrophils % Seg Neuts % (Manual) Lymphocytes % (Manual) Monocytes % (Manual) Nucleated RBC % Seg Neutrophils # Seg Neutrophils # Man Lymphocytes # (Manual) Monocytes # (Manual) PT INR ABG pH POC ABG pCO2 POC ABG pO2 ABG pO2 ABG Base Excess ABG Hemoglobin ABG Oxyhemoglobin ABG Potassium ABG Chloride ABG Glucose VBG pH 7.085 L* Oxyhemoglobin Carboxyhemoglobin Sodium Potassium Chloride Carbon Dioxide BUN Creatinine Glucose POC Glucose Lactic Acid 13.20 H* 12.00 H* Calcium Magnesium Total Bilirubin Direct Bilirubin AST ALT Alkaline Phosphatase Ammonia Total Creatine Kinase Total Protein Albumin Lipase Arterial Blood Glucose Arterial Blood Ionized Calcium Urine WBC (Auto) U Epithel Cells (Auto) Acetaminophen Syphilis IgG Antibody HSV I Specific Ab Crossmatch 07/17/20 07/17/20 07/17/20 06:05 07:33 07:48 WBC RBC Hgb Hct MCV MCH MCHC RDW Plt Count Lymph % (Auto) [place] % (Auto) Lymph # (Auto) [place] # (Auto) Eos # (Auto) Seg Neutrophils % Seg Neuts % (Manual) Lymphocytes % (Manual) Monocytes % (Manual) Nucleated RBC % Seg Neutrophils # Seg Neutrophils # Man Lymphocytes # (Manual) Monocytes # (Manual) PT INR ABG pH POC ABG pCO2 POC ABG pO2 ABG pO2 ABG Base Excess ABG Hemoglobin ABG Oxyhemoglobin ABG Potassium ABG Chloride ABG Glucose VBG pH Oxyhemoglobin Carboxyhemoglobin Sodium Potassium Chloride Carbon Dioxide BUN Creatinine Glucose POC Glucose 59 L 125 H Lactic Acid 12.00 H* Calcium Magnesium Total Bilirubin Direct Bilirubin AST ALT Alkaline Phosphatase Ammonia Total Creatine Kinase Total Protein Albumin Lipase Arterial Blood Glucose Arterial Blood Ionized Calcium Urine WBC (Auto) U Epithel Cells (Auto) Acetaminophen Syphilis IgG Antibody HSV I Specific Ab Crossmatch 07/17/20 07/17/20 07/17/20 09:23 09:23 09:24 WBC RBC Hgb Hct MCV MCH MCHC RDW Plt Count Lymph % (Auto) [place] % (Auto) Lymph # (Auto) [place] # (Auto) Eos # (Auto) Seg Neutrophils % Seg Neuts % (Manual) Lymphocytes % (Manual) Monocytes % (Manual) Nucleated RBC % Seg Neutrophils # Seg Neutrophils # Man Lymphocytes # (Manual) Monocytes # (Manual) PT INR ABG pH POC ABG pCO2 POC ABG pO2 ABG pO2 ABG Base Excess ABG Hemoglobin ABG Oxyhemoglobin ABG Potassium ABG Chloride ABG Glucose VBG pH Oxyhemoglobin Carboxyhemoglobin Sodium Potassium 5.7 H Chloride 107.6 H Carbon Dioxide 13 L BUN 24 H Creatinine 2.1 H Glucose 121 H POC Glucose Lactic Acid Calcium 6.0 L D Magnesium Total Bilirubin 3.80 H Direct Bilirubin AST 8355 H ALT 1522 H Alkaline Phosphatase Ammonia Total Creatine Kinase 332 H Total Protein 4.7 L D Albumin 2.8 L Lipase Arterial Blood Glucose Arterial Blood Ionized Calcium Urine WBC (Auto) U Epithel Cells (Auto) Acetaminophen 5.0 L Syphilis IgG Antibody HSV I Specific Ab Crossmatch 07/17/20 07/17/20 07/17/20 11:08 11:08 11:08 WBC RBC Hgb Hct MCV MCH MCHC RDW Plt Count Lymph % (Auto) [place] % (Auto) Lymph # (Auto) [place] # (Auto) Eos # (Auto) Seg Neutrophils % Seg Neuts % (Manual) Lymphocytes % (Manual) Monocytes % (Manual) Nucleated RBC % Seg Neutrophils # Seg Neutrophils # Man Lymphocytes # (Manual) Monocytes # (Manual) PT 60.1 H INR > 17.67 H* ABG pH POC ABG pCO2 POC ABG pO2 ABG pO2 ABG Base Excess ABG Hemoglobin ABG Oxyhemoglobin ABG Potassium ABG Chloride ABG Glucose VBG pH Oxyhemoglobin Carboxyhemoglobin Sodium Potassium Chloride Carbon Dioxide BUN Creatinine Glucose POC Glucose Lactic Acid 9.80 H* Calcium Magnesium Total Bilirubin Direct Bilirubin AST ALT Alkaline Phosphatase Ammonia Total Creatine Kinase Total Protein Albumin Lipase Arterial Blood Glucose Arterial Blood Ionized Calcium Urine WBC (Auto) U Epithel Cells (Auto) Acetaminophen Syphilis IgG Antibody Reactive A HSV I Specific Ab Crossmatch 07/17/20 07/17/20 07/17/20 11:08 14:34 14:34 WBC 27.2 H RBC 2.66 L Hgb 9.1 L D Hct 27.8 L D MCV 104 H MCH 34 H MCHC RDW 22.6 H Plt Count Lymph % (Auto) [place] % (Auto) Lymph # (Auto) [place] # (Auto) Eos # (Auto) Seg Neutrophils % Seg Neuts % (Manual) Lymphocytes % (Manual) Monocytes % (Manual) Nucleated RBC % Seg Neutrophils # Seg Neutrophils # Man Lymphocytes # (Manual) Monocytes # (Manual) PT INR ABG pH POC ABG pCO2 POC ABG pO2 ABG pO2 ABG Base Excess ABG Hemoglobin ABG Oxyhemoglobin ABG Potassium ABG Chloride ABG Glucose VBG pH Oxyhemoglobin Carboxyhemoglobin Sodium Potassium 5.4 H Chloride 107.7 H Carbon Dioxide 16 L BUN 26 H Creatinine 2.3 H Glucose 151 H POC Glucose Lactic Acid Calcium 5.8 L* Magnesium Total Bilirubin 3.30 H Direct Bilirubin AST 6751 H ALT 1325 H Alkaline Phosphatase Ammonia Total Creatine Kinase Total Protein 4.4 L Albumin 2.5 L Lipase Arterial Blood Glucose Arterial Blood Ionized Calcium Urine WBC (Auto) U Epithel Cells (Auto) Acetaminophen Syphilis IgG Antibody HSV I Specific Ab 5.23 H Crossmatch 07/17/20 07/17/20 07/17/20 14:34 14:34 14:34 WBC RBC Hgb Hct MCV MCH MCHC RDW Plt Count Lymph % (Auto) [place] % (Auto) Lymph # (Auto) [place] # (Auto) Eos # (Auto) Seg Neutrophils % Seg Neuts % (Manual) Lymphocytes % (Manual) Monocytes % (Manual) Nucleated RBC % Seg Neutrophils # Seg Neutrophils # Man Lymphocytes # (Manual) Monocytes # (Manual) PT 70.6 H INR 8.29 H* ABG pH POC ABG pCO2 POC ABG pO2 ABG pO2 ABG Base Excess ABG Hemoglobin ABG Oxyhemoglobin ABG Potassium ABG Chloride ABG Glucose VBG pH Oxyhemoglobin Carboxyhemoglobin Sodium Potassium Chloride Carbon Dioxide BUN Creatinine Glucose POC Glucose Lactic Acid 7.60 H* Calcium Magnesium Total Bilirubin Direct Bilirubin AST ALT Alkaline Phosphatase Ammonia 75.0 H Total Creatine Kinase Total Protein Albumin Lipase Arterial Blood Glucose Arterial Blood Ionized Calcium Urine WBC (Auto) U Epithel Cells (Auto) Acetaminophen Syphilis IgG Antibody HSV I Specific Ab Crossmatch 07/17/20 07/17/20 07/18/20 16:45 16:45 04:23 WBC 22.7 H RBC 2.47 L Hgb 8.5 L Hct 25.5 L MCV 103 H MCH 35 H MCHC RDW 21.7 H Plt Count Lymph % (Auto) 5.3 L [place] % (Auto) Lymph # (Auto) [place] # (Auto) Eos # (Auto) 0.7 H Seg Neutrophils % 88.2 H Seg Neuts % (Manual) Lymphocytes % (Manual) Monocytes % (Manual) Nucleated RBC % Seg Neutrophils # 20.0 H Seg Neutrophils # Man Lymphocytes # (Manual) Monocytes # (Manual) PT INR ABG pH POC ABG pCO2 POC ABG pO2 ABG pO2 ABG Base Excess ABG Hemoglobin ABG Oxyhemoglobin ABG Potassium ABG Chloride ABG Glucose VBG pH Oxyhemoglobin Carboxyhemoglobin Sodium Potassium Chloride 107.9 H Carbon Dioxide 17 L BUN 27 H Creatinine 2.5 H Glucose 144 H POC Glucose Lactic Acid 7.00 H* Calcium 6.0 L Magnesium Total Bilirubin 3.30 H Direct Bilirubin AST 6456 H ALT 1286 H Alkaline Phosphatase Ammonia Total Creatine Kinase Total Protein 4.2 L Albumin 2.5 L Lipase Arterial Blood Glucose Arterial Blood Ionized Calcium Urine WBC (Auto) U Epithel Cells (Auto) Acetaminophen Syphilis IgG Antibody HSV I Specific Ab Crossmatch 07/18/20 07/18/20 07/18/20 04:23 04:23 04:23 WBC RBC Hgb Hct MCV MCH MCHC RDW Plt Count Lymph % (Auto) [place] % (Auto) Lymph # (Auto) [place] # (Auto) Eos # (Auto) Seg Neutrophils % Seg Neuts % (Manual) Lymphocytes % (Manual) Monocytes % (Manual) Nucleated RBC % Seg Neutrophils # Seg Neutrophils # Man Lymphocytes # (Manual) Monocytes # (Manual) PT 52.9 H INR 5.78 H* ABG pH POC ABG pCO2 POC ABG pO2 ABG pO2 ABG Base Excess ABG Hemoglobin ABG Oxyhemoglobin ABG Potassium ABG Chloride ABG Glucose VBG pH Oxyhemoglobin Carboxyhemoglobin Sodium Potassium Chloride 110.0 H Carbon Dioxide 17 L BUN 33 H Creatinine 3.0 H Glucose 110 H POC Glucose Lactic Acid 5.40 H* Calcium 6.4 L Magnesium Total Bilirubin Direct Bilirubin AST ALT Alkaline Phosphatase Ammonia Total Creatine Kinase Total Protein Albumin Lipase Arterial Blood Glucose Arterial Blood Ionized Calcium Urine WBC (Auto) U Epithel Cells (Auto) Acetaminophen Syphilis IgG Antibody HSV I Specific Ab Crossmatch 07/18/20 07/18/20 07/18/20 04:23 07:25 Unknown WBC RBC Hgb Hct MCV MCH MCHC RDW Plt Count Lymph % (Auto) [place] % (Auto) Lymph # (Auto) [place] # (Auto) Eos # (Auto) Seg Neutrophils % Seg Neuts % (Manual) Lymphocytes % (Manual) Monocytes % (Manual) Nucleated RBC % Seg Neutrophils # Seg Neutrophils # Man Lymphocytes # (Manual) Monocytes # (Manual) PT INR ABG pH POC ABG pCO2 POC ABG pO2 ABG pO2 ABG Base Excess ABG Hemoglobin ABG Oxyhemoglobin ABG Potassium ABG Chloride ABG Glucose VBG pH Oxyhemoglobin Carboxyhemoglobin Sodium Potassium Chloride Carbon Dioxide BUN Creatinine Glucose POC Glucose Lactic Acid 5.50 H* 4.80 H* Calcium Magnesium Total Bilirubin Direct Bilirubin AST ALT Alkaline Phosphatase Ammonia 96.0 H Total Creatine Kinase Total Protein Albumin Lipase Arterial Blood Glucose Arterial Blood Ionized Calcium Urine WBC (Auto) U Epithel Cells (Auto) Acetaminophen Syphilis IgG Antibody HSV I Specific Ab Crossmatch 07/18/20 07/18/20 07/19/20 Unknown Unknown 02:47 WBC RBC Hgb Hct MCV MCH MCHC RDW Plt Count Lymph % (Auto) [place] % (Auto) Lymph # (Auto) [place] # (Auto) Eos # (Auto) Seg Neutrophils % Seg Neuts % (Manual) Lymphocytes % (Manual) Monocytes % (Manual) Nucleated RBC % Seg Neutrophils # Seg Neutrophils # Man Lymphocytes # (Manual) Monocytes # (Manual) PT 37.3 H INR 3.73 H ABG pH POC ABG pCO2 21.1 L POC ABG pO2 61.7 L ABG pO2 ABG Base Excess ABG Hemoglobin 8.5 L ABG Oxyhemoglobin 88.1 L ABG Potassium ABG Chloride 119.0 H ABG Glucose VBG pH Oxyhemoglobin Carboxyhemoglobin Sodium Potassium Chloride Carbon Dioxide BUN Creatinine Glucose POC Glucose Lactic Acid Calcium Magnesium Total Bilirubin 3.70 H Direct Bilirubin 3.0 H AST 2093 H ALT 822 H Alkaline Phosphatase Ammonia Total Creatine Kinase Total Protein 4.0 L Albumin 2.5 L Lipase Arterial Blood Glucose Arterial Blood Ionized Calcium 4.0 L Urine WBC (Auto) U Epithel Cells (Auto) Acetaminophen Syphilis IgG Antibody HSV I Specific Ab Crossmatch 07/19/20 07/19/20 07/19/20 03:01 03:01 03:01 WBC 19.4 H RBC 2.50 L Hgb 8.5 L Hct 26.1 L MCV 104 H MCH 34 H MCHC RDW 22.3 H Plt Count Lymph % (Auto) 3.7 L [place] % (Auto) Lymph # (Auto) 0.7 L [place] # (Auto) 0.9 H Eos # (Auto) Seg Neutrophils % Seg Neuts % (Manual) Lymphocytes % (Manual) Monocytes % (Manual) Nucleated RBC % Seg Neutrophils # 17.7 H Seg Neutrophils # Man Lymphocytes # (Manual) Monocytes # (Manual) PT 35.0 H INR 3.45 H ABG pH POC ABG pCO2 POC ABG pO2 ABG pO2 ABG Base Excess ABG Hemoglobin ABG Oxyhemoglobin ABG Potassium ABG Chloride ABG Glucose VBG pH Oxyhemoglobin Carboxyhemoglobin Sodium Potassium Chloride Carbon Dioxide BUN Creatinine Glucose POC Glucose Lactic Acid 5.90 H* Calcium Magnesium Total Bilirubin Direct Bilirubin AST ALT Alkaline Phosphatase Ammonia Total Creatine Kinase Total Protein Albumin Lipase Arterial Blood Glucose Arterial Blood Ionized Calcium Urine WBC (Auto) U Epithel Cells (Auto) Acetaminophen Syphilis IgG Antibody HSV I Specific Ab Crossmatch 07/19/20 07/19/20 07/19/20 03:01 03:01 05:25 WBC RBC Hgb Hct MCV MCH MCHC RDW Plt Count Lymph % (Auto) [place] % (Auto) Lymph # (Auto) [place] # (Auto) Eos # (Auto) Seg Neutrophils % Seg Neuts % (Manual) Lymphocytes % (Manual) Monocytes % (Manual) Nucleated RBC % Seg Neutrophils # Seg Neutrophils # Man Lymphocytes # (Manual) Monocytes # (Manual) PT INR ABG pH POC ABG pCO2 POC ABG pO2 ABG pO2 ABG Base Excess ABG Hemoglobin ABG Oxyhemoglobin ABG Potassium ABG Chloride ABG Glucose VBG pH Oxyhemoglobin Carboxyhemoglobin Sodium 149 H Potassium Chloride 116.6 H Carbon Dioxide 14 L BUN 48 H Creatinine 2.5 H Glucose POC Glucose 43 L Lactic Acid Calcium 7.4 L D Magnesium Total Bilirubin 3.70 H Direct Bilirubin AST 1730 H ALT 751 H Alkaline Phosphatase Ammonia 126.0 H Total Creatine Kinase Total Protein 4.3 L Albumin 2.4 L Lipase Arterial Blood Glucose Arterial Blood Ionized Calcium Urine WBC (Auto) U Epithel Cells (Auto) Acetaminophen Syphilis IgG Antibody HSV I Specific Ab Crossmatch 07/19/20 07/19/20 07/19/20 05:41 05:41 05:41 WBC 15.9 H RBC 1.80 L Hgb 6.2 L Hct 19.7 L* D MCV 109 H MCH 35 H MCHC RDW 22.7 H Plt Count 99 L Lymph % (Auto) 9.7 L [place] % (Auto) 8.3 H Lymph # (Auto) [place] # (Auto) 1.3 H Eos # (Auto) Seg Neutrophils % 81.2 H Seg Neuts % (Manual) 85.0 H Lymphocytes % (Manual) 12.0 L Monocytes % (Manual) Nucleated RBC % Seg Neutrophils # 12.9 H Seg Neutrophils # Man 13.5 H Lymphocytes # (Manual) Monocytes # (Manual) PT 51.8 H INR 5.63 H* ABG pH POC ABG pCO2 POC ABG pO2 ABG pO2 ABG Base Excess ABG Hemoglobin ABG Oxyhemoglobin ABG Potassium ABG Chloride ABG Glucose VBG pH Oxyhemoglobin Carboxyhemoglobin Sodium 150 H Potassium Chloride 117.6 H Carbon Dioxide 10 L BUN 50 H Creatinine 2.8 H Glucose 308 H POC Glucose Lactic Acid Calcium 6.8 L Magnesium Total Bilirubin 2.20 H Direct Bilirubin AST 1224 H ALT 484 H Alkaline Phosphatase Ammonia Total Creatine Kinase Total Protein 2.8 L D Albumin 1.6 L Lipase Arterial Blood Glucose Arterial Blood Ionized Calcium Urine WBC (Auto) U Epithel Cells (Auto) Acetaminophen Syphilis IgG Antibody HSV I Specific Ab Crossmatch 07/19/20 07/19/20 07/19/20 05:41 05:41 05:53 WBC RBC Hgb Hct MCV MCH MCHC RDW Plt Count Lymph % (Auto) [place] % (Auto) Lymph # (Auto) [place] # (Auto) Eos # (Auto) Seg Neutrophils % Seg Neuts % (Manual) Lymphocytes % (Manual) Monocytes % (Manual) Nucleated RBC % Seg Neutrophils # Seg Neutrophils # Man Lymphocytes # (Manual) Monocytes # (Manual) PT INR ABG pH POC ABG pCO2 POC ABG pO2 ABG pO2 ABG Base Excess ABG Hemoglobin ABG Oxyhemoglobin ABG Potassium ABG Chloride ABG Glucose VBG pH Oxyhemoglobin Carboxyhemoglobin Sodium Potassium Chloride Carbon Dioxide BUN Creatinine Glucose POC Glucose 186 H Lactic Acid 12.00 H* Calcium Magnesium Total Bilirubin Direct Bilirubin AST ALT Alkaline Phosphatase Ammonia 96.0 H Total Creatine Kinase Total Protein Albumin Lipase Arterial Blood Glucose Arterial Blood Ionized Calcium Urine WBC (Auto) U Epithel Cells (Auto) Acetaminophen Syphilis IgG Antibody HSV I Specific Ab Crossmatch 07/19/20 07/19/20 07/19/20 06:14 07:35 07:35 WBC RBC Hgb Hct MCV MCH MCHC RDW Plt Count Lymph % (Auto) [place] % (Auto) Lymph # (Auto) [place] # (Auto) Eos # (Auto) Seg Neutrophils % Seg Neuts % (Manual) Lymphocytes % (Manual) Monocytes % (Manual) Nucleated RBC % Seg Neutrophils # Seg Neutrophils # Man Lymphocytes # (Manual) Monocytes # (Manual) PT INR ABG pH 6.904 L POC ABG pCO2 50.8 H POC ABG pO2 140.1 H ABG pO2 ABG Base Excess ABG Hemoglobin 7.9 L ABG Oxyhemoglobin ABG Potassium ABG Chloride 120.0 H ABG Glucose 220 H VBG pH Oxyhemoglobin Carboxyhemoglobin 1.7 H Sodium Potassium Chloride Carbon Dioxide BUN Creatinine Glucose POC Glucose Lactic Acid 8.50 H* Calcium Magnesium Total Bilirubin Direct Bilirubin AST ALT Alkaline Phosphatase Ammonia Total Creatine Kinase Total Protein Albumin Lipase Arterial Blood Glucose 220 H Arterial Blood Ionized Calcium 4.1 L Urine WBC (Auto) U Epithel Cells (Auto) Acetaminophen Syphilis IgG Antibody HSV I Specific Ab Crossmatch See Detail 07/19/20 07/19/20 07/19/20 12:45 22:54 Unknown WBC 26.7 H RBC 2.68 L Hgb 9.0 L Hct 26.8 L D MCV 100 H MCH 34 H MCHC RDW 20.2 H Plt Count 104 L Lymph % (Auto) [place] % (Auto) Lymph # (Auto) [place] # (Auto) Eos # (Auto) Seg Neutrophils % Seg Neuts % (Manual) Lymphocytes % (Manual) 6.0 L Monocytes % (Manual) 8.0 H Nucleated RBC % Seg Neutrophils # Seg Neutrophils # Man 17.6 H Lymphocytes # (Manual) Monocytes # (Manual) 2.1 H PT INR ABG pH POC ABG pCO2 POC ABG pO2 ABG pO2 ABG Base Excess ABG Hemoglobin ABG Oxyhemoglobin ABG Potassium ABG Chloride ABG Glucose VBG pH Oxyhemoglobin Carboxyhemoglobin Sodium Potassium Chloride Carbon Dioxide BUN Creatinine Glucose POC Glucose 121 H Lactic Acid 6.20 H* Calcium Magnesium Total Bilirubin Direct Bilirubin AST ALT Alkaline Phosphatase Ammonia Total Creatine Kinase Total Protein Albumin Lipase Arterial Blood Glucose Arterial Blood Ionized Calcium Urine WBC (Auto) U Epithel Cells (Auto) Acetaminophen Syphilis IgG Antibody HSV I Specific Ab Crossmatch 07/19/20 07/19/20 07/19/20 Unknown Unknown Unknown WBC RBC Hgb Hct MCV MCH MCHC RDW Plt Count Lymph % (Auto) [place] % (Auto) Lymph # (Auto) [place] # (Auto) Eos # (Auto) Seg Neutrophils % Seg Neuts % (Manual) Lymphocytes % (Manual) Monocytes % (Manual) Nucleated RBC % Seg Neutrophils # Seg Neutrophils # Man Lymphocytes # (Manual) Monocytes # (Manual) PT 33.4 H INR 3.25 H ABG pH POC ABG pCO2 POC ABG pO2 ABG pO2 ABG Base Excess ABG Hemoglobin ABG Oxyhemoglobin ABG Potassium ABG Chloride ABG Glucose VBG pH Oxyhemoglobin Carboxyhemoglobin Sodium 148 H Potassium 2.6 L* D Chloride 117.3 H Carbon Dioxide 18 L D BUN 48 H Creatinine 2.4 H Glucose 207 H POC Glucose Lactic Acid 3.90 H* Calcium 6.5 L Magnesium Total Bilirubin 3.80 H Direct Bilirubin AST 1228 H ALT 516 H Alkaline Phosphatase Ammonia Total Creatine Kinase Total Protein 3.6 L D Albumin 1.9 L Lipase Arterial Blood Glucose Arterial Blood Ionized Calcium Urine WBC (Auto) U Epithel Cells (Auto) Acetaminophen Syphilis IgG Antibody HSV I Specific Ab Crossmatch 07/20/20 07/20/20 07/20/20 02:41 05:04 06:39 WBC RBC Hgb Hct MCV MCH MCHC RDW Plt Count Lymph % (Auto) [place] % (Auto) Lymph # (Auto) [place] # (Auto) Eos # (Auto) Seg Neutrophils % Seg Neuts % (Manual) Lymphocytes % (Manual) Monocytes % (Manual) Nucleated RBC % Seg Neutrophils # Seg Neutrophils # Man Lymphocytes # (Manual) Monocytes # (Manual) PT INR ABG pH POC ABG pCO2 POC ABG pO2 64.7 L ABG pO2 ABG Base Excess ABG Hemoglobin 8.8 L ABG Oxyhemoglobin 91.0 L ABG Potassium 2.6 L ABG Chloride 116.0 H ABG Glucose 143 H VBG pH Oxyhemoglobin Carboxyhemoglobin 2.0 H Sodium Potassium Chloride Carbon Dioxide BUN Creatinine Glucose POC Glucose 141 H 123 H Lactic Acid Calcium Magnesium Total Bilirubin Direct Bilirubin AST ALT Alkaline Phosphatase Ammonia Total Creatine Kinase Total Protein Albumin Lipase Arterial Blood Glucose 143 H Arterial Blood Ionized Calcium 3.9 L Urine WBC (Auto) U Epithel Cells (Auto) Acetaminophen Syphilis IgG Antibody HSV I Specific Ab Crossmatch 07/20/20 07/20/20 07/20/20 10:42 11:07 11:07 WBC 27.7 H RBC 2.50 L Hgb 8.4 L Hct 24.4 L MCV 98 H MCH 34 H MCHC 35 H RDW 19.8 H Plt Count 78 L Lymph % (Auto) [place] % (Auto) Lymph # (Auto) [place] # (Auto) Eos # (Auto) Seg Neutrophils % Seg Neuts % (Manual) Lymphocytes % (Manual) Monocytes % (Manual) Nucleated RBC % Seg Neutrophils # Seg Neutrophils # Man Lymphocytes # (Manual) Monocytes # (Manual) PT INR ABG pH POC ABG pCO2 POC ABG pO2 113.1 H ABG pO2 ABG Base Excess ABG Hemoglobin 8.8 L ABG Oxyhemoglobin ABG Potassium 2.9 L ABG Chloride 114.0 H ABG Glucose 135 H VBG pH Oxyhemoglobin Carboxyhemoglobin 1.9 H Sodium 147 H Potassium Chloride 114.2 H Carbon Dioxide BUN 52 H Creatinine 1.8 H Glucose 143 H POC Glucose Lactic Acid Calcium 6.5 L Magnesium Total Bilirubin Direct Bilirubin AST ALT Alkaline Phosphatase Ammonia Total Creatine Kinase Total Protein Albumin Lipase Arterial Blood Glucose 135 H Arterial Blood Ionized Calcium 3.8 L Urine WBC (Auto) U Epithel Cells (Auto) Acetaminophen Syphilis IgG Antibody HSV I Specific Ab Crossmatch 07/20/20 07/21/20 07/21/20 15:05 00:03 02:07 WBC RBC Hgb Hct MCV MCH MCHC RDW Plt Count Lymph % (Auto) [place] % (Auto) Lymph # (Auto) [place] # (Auto) Eos # (Auto) Seg Neutrophils % Seg Neuts % (Manual) Lymphocytes % (Manual) Monocytes % (Manual) Nucleated RBC % Seg Neutrophils # Seg Neutrophils # Man Lymphocytes # (Manual) Monocytes # (Manual) PT INR ABG pH POC ABG pCO2 POC ABG pO2 ABG pO2 ABG Base Excess ABG Hemoglobin ABG Oxyhemoglobin ABG Potassium ABG Chloride ABG Glucose VBG pH Oxyhemoglobin Carboxyhemoglobin Sodium 146 H Potassium 2.8 L* 3.1 L Chloride 112.1 H Carbon Dioxide BUN 54 H Creatinine 1.9 H Glucose 107 H POC Glucose 145 H Lactic Acid Calcium 6.8 L Magnesium 0.90 L* Total Bilirubin Direct Bilirubin AST ALT Alkaline Phosphatase Ammonia Total Creatine Kinase Total Protein Albumin Lipase Arterial Blood Glucose Arterial Blood Ionized Calcium Urine WBC (Auto) U Epithel Cells (Auto) Acetaminophen Syphilis IgG Antibody HSV I Specific Ab Crossmatch 07/21/20 07/21/20 07/21/20 03:42 05:21 10:59 WBC RBC Hgb Hct MCV MCH MCHC RDW Plt Count Lymph % (Auto) [place] % (Auto) Lymph # (Auto) [place] # (Auto) Eos # (Auto) Seg Neutrophils % Seg Neuts % (Manual) Lymphocytes % (Manual) Monocytes % (Manual) Nucleated RBC % Seg Neutrophils # Seg Neutrophils # Man Lymphocytes # (Manual) Monocytes # (Manual) PT INR ABG pH POC ABG pCO2 POC ABG pO2 ABG pO2 98.2 H ABG Base Excess -3.8 L ABG Hemoglobin 8.7 L ABG Oxyhemoglobin ABG Potassium ABG Chloride ABG Glucose VBG pH Oxyhemoglobin 94.6 L Carboxyhemoglobin Sodium Potassium Chloride Carbon Dioxide BUN Creatinine Glucose POC Glucose 150 H 161 H Lactic Acid Calcium Magnesium Total Bilirubin Direct Bilirubin AST ALT Alkaline Phosphatase Ammonia Total Creatine Kinase Total Protein Albumin Lipase Arterial Blood Glucose Arterial Blood Ionized Calcium Urine WBC (Auto) U Epithel Cells (Auto) Acetaminophen Syphilis IgG Antibody HSV I Specific Ab Crossmatch 07/21/20 07/21/20 07/21/20 13:59 16:14 17:22 WBC RBC Hgb Hct MCV MCH MCHC RDW Plt Count Lymph % (Auto) [place] % (Auto) Lymph # (Auto) [place] # (Auto) Eos # (Auto) Seg Neutrophils % Seg Neuts % (Manual) Lymphocytes % (Manual) Monocytes % (Manual) Nucleated RBC % Seg Neutrophils # Seg Neutrophils # Man Lymphocytes # (Manual) Monocytes # (Manual) PT INR ABG pH POC ABG pCO2 POC ABG pO2 ABG pO2 ABG Base Excess ABG Hemoglobin ABG Oxyhemoglobin ABG Potassium ABG Chloride ABG Glucose VBG pH Oxyhemoglobin Carboxyhemoglobin Sodium Potassium 3.0 L Chloride 112.5 H Carbon Dioxide 16 L D BUN 48 H Creatinine Glucose 157 H POC Glucose 164 H 171 H Lactic Acid Calcium 7.3 L Magnesium Total Bilirubin Direct Bilirubin AST ALT Alkaline Phosphatase Ammonia Total Creatine Kinase Total Protein Albumin Lipase Arterial Blood Glucose Arterial Blood Ionized Calcium Urine WBC (Auto) U Epithel Cells (Auto) Acetaminophen Syphilis IgG Antibody HSV I Specific Ab Crossmatch Chest x-ray: report reviewed, image reviewed (bilateral infiltrates)
[2020-07-22] MEDS: VASOPRESSIN 20 UNIT in SODIUM CHLORIDE 0.9% 100 ML IV SCH ×3 (02:47→22:58)
[2020-07-22 04:48] LABS: ABG Base Excess 0.8 mmol/L (-2.0-3.0); ABG HCO3 23.7 mmol/L (20.0-26.0); ABG Methemoglobin 0.5 % (0.0-1.5); ABG Oxygen Saturation 98.1 % (95.0-99.0); ABG PCO2 31.2 mm Hg; ABG PH 7.5 pH Units (7.350-7.450); ABG PO2 104.9 mm Hg (80.0-90.0)
[2020-07-22 08:38] LABS: Hematocrit 22.2 % (30.3-42.9); Mean Corpuscular HGB Conc 36 % (30-34); Mean Corpuscular Volume 94 fl (79-97); Red Blood Count 2.35 M/mm3 (3.65-5.03)
[2020-07-22 08:40] LABS: Platelet Count 41 K/mm3 (140-440); Red Cell Distribution Width 20.5 % (13.2-15.2)
[2020-07-22 08:45] LABS: INR 1.87 (0.87-1.13)
[2020-07-22 09:00] LABS: Alanine Aminotransferase 297 units/L (7-56); Albumin 1.8 g/dL (3.9-5); BUN/Creatinine Ratio 51; Blood Urea Nitrogen 51 mg/dL (7-17); Calcium 7.8 mg/dL (8.4-10.2); Hemolysis Index 17
[2020-07-22] MEDS: SODIUM CHLORIDE 0.9% IV SCH ×2 (09:27→21:58)
[2020-07-22] MEDS: ACYCLOVIR IV SCH ×2 (09:27→21:58)
[2020-07-22] MEDS: cefTRIAXone/NS 1 GM/50 ML 1 GM/50 ML BAG IV SCH (09:28)
[2020-07-22] MEDS: THIAMINE 100 MG in SODIUM CHLORIDE 0.9% 50 ML IV SCH (09:28)
[2020-07-22] MEDS: FOLIC ACID 1 MG in SODIUM CHLORIDE 0.9% 50 ML IV SCH (09:28)
[2020-07-22 09:29] LABS: Band Neutrophils # (Manual) 0.9 K/mm3; Total Cells Counted 100
[2020-07-22 09:30] LABS: Anisocytosis 1+; Poikilocytosis 2+; Target Cells 2+
[2020-07-22 09:31] LABS: Large Platelets Few; Platelet Estimate Consistent w Auto
--- NOTE | 2020-07-22 10:25 | Progress Note ---
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 Acidosis Acute Liver Failure N/V UTI Syphilis Plan: -Cr trending down -Replace lytes -Making urine. -Sepsis-On multiple IV antibiotics -Monitor I/O's daily -Avoid nephrotoxic agents -Monitor renal function closely Subjective Date of service: 07/22/20 Principal diagnosis: Acute Liver Injury Interval history: Intubated on Vent. Objective - Exam Narrative Exam: General appearance: sedated on ventilator, intubated Respiratory: Present: Decreased Breath Sounds Cardiology: tachycardia Psychiatric: other (itnubated) - Vital Signs Vital signs: Vital Signs - 12hr 07/21/20 07/21/20 07/21/20 22:30 22:41 22:51 Temperature Pulse Rate 93 H 93 H 93 H Pulse Rate [ From Monitor] Respiratory 25 H 25 H 25 H Rate Blood Pressure 108/59 112/65 110/58 O2 Sat by Pulse 97 98 98 Oximetry 07/21/20 07/21/20 07/21/20 23:00 23:11 23:21 Temperature Pulse Rate 93 H 93 H 93 H Pulse Rate [ From Monitor] Respiratory 25 H 25 H 25 H Rate Blood Pressure 106/57 108/59 113/64 O2 Sat by Pulse 97 98 98 Oximetry 07/21/20 07/21/20 07/21/20 23:30 23:41 23:51 Temperature Pulse Rate 93 H 93 H 93 H Pulse Rate [ From Monitor] Respiratory 25 H 25 H 25 H Rate Blood Pressure 112/60 112/60 117/68 O2 Sat by Pulse 97 99 99 Oximetry 07/22/20 07/22/20 07/22/20 00:00 00:11 00:18 Temperature Pulse Rate 93 H 93 H 93 H Pulse Rate [ 93 H From Monitor] Respiratory 25 H 25 H Rate Blood Pressure 115/59 112/60 112/60 O2 Sat by Pulse 97 98 98 Oximetry 07/22/20 07/22/20 07/22/20 00:21 00:30 00:41 Temperature Pulse Rate 94 H 94 H 94 H Pulse Rate [ From Monitor] Respiratory 25 H 25 H 25 H Rate Blood Pressure 115/67 115/67 115/67 O2 Sat by Pulse 98 97 99 Oximetry 07/22/20 07/22/20 07/22/20 00:51 01:00 01:11 Temperature Pulse Rate 94 H 94 H 94 H Pulse Rate [ From Monitor] Respiratory 25 H 25 H 25 H Rate Blood Pressure 116/66 111/65 111/65 O2 Sat by Pulse 99 97 99 Oximetry 07/22/20 07/22/20 07/22/20 01:21 01:30 01:41 Temperature Pulse Rate 94 H 94 H 94 H Pulse Rate [ From Monitor] Respiratory 25 H 25 H 25 H Rate Blood Pressure 118/70 117/68 117/68 O2 Sat by Pulse 99 97 99 Oximetry 07/22/20 07/22/20 07/22/20 01:51 02:00 02:11 Temperature Pulse Rate 94 H 94 H 94 H Pulse Rate [ From Monitor] Respiratory 25 H 25 H 25 H Rate Blood Pressure 115/70 118/71 118/71 O2 Sat by Pulse 99 97 99 Oximetry 07/22/20 07/22/20 07/22/20 02:21 02:30 02:41 Temperature Pulse Rate 94 H 95 H 94 H Pulse Rate [ From Monitor] Respiratory 25 H 25 H 25 H Rate Blood Pressure 117/69 118/69 118/69 O2 Sat by Pulse 99 97 99 Oximetry 07/22/20 07/22/20 07/22/20 02:51 03:00 03:11 Temperature Pulse Rate 95 H 95 H 95 H Pulse Rate [ From Monitor] Respiratory 25 H 25 H 25 H Rate Blood Pressure 117/68 119/73 119/73 O2 Sat by Pulse 98 97 99 Oximetry 07/22/20 07/22/20 07/22/20 03:21 03:30 03:41 Temperature Pulse Rate 95 H 95 H 95 H Pulse Rate [ From Monitor] Respiratory 25 H 25 H 25 H Rate Blood Pressure 117/69 116/69 116/69 O2 Sat by Pulse 99 97 99 Oximetry 07/22/20 07/22/20 07/22/20 03:51 04:00 04:11 Temperature 95.6 F L Pulse Rate 95 H 95 H 96 H Pulse Rate [ 92 H From Monitor] Respiratory 25 H 25 H 25 H Rate Blood Pressure 113/66 119/70 116/69 O2 Sat by Pulse 98 97 99 Oximetry 07/22/20 07/22/20 07/22/20 04:21 04:24 04:30 Temperature Pulse Rate 95 H 96 H 96 H Pulse Rate [ From Monitor] Respiratory 25 H 25 H Rate Blood Pressure 117/68 117/68 119/68 O2 Sat by Pulse 99 98 97 Oximetry 07/22/20 07/22/20 07/22/20 04:41 04:51 05:00 Temperature Pulse Rate 95 H 95 H 96 H Pulse Rate [ From Monitor] Respiratory 25 H 25 H 25 H Rate Blood Pressure 119/68 120/69 120/68 O2 Sat by Pulse 98 99 97 Oximetry 07/22/20 07/22/20 07/22/20 05:11 05:21 05:30 Temperature Pulse Rate 96 H 95 H 94 H Pulse Rate [ From Monitor] Respiratory 25 H 25 H 25 H Rate Blood Pressure 120/68 122/75 121/60 O2 Sat by Pulse 99 99 97 Oximetry 07/22/20 07/22/20 07/22/20 05:41 05:51 06:00 Temperature Pulse Rate 93 H 92 H 92 H Pulse Rate [ From Monitor] Respiratory 25 H 25 H 25 H Rate Blood Pressure 121/60 109/62 107/61 O2 Sat by Pulse 98 99 98 Oximetry 07/22/20 07/22/20 06:11 08:52 Temperature Pulse Rate 93 H 89 Pulse Rate [ From Monitor] Respiratory 25 H Rate Blood Pressure 107/61 99/54 O2 Sat by Pulse 99 96 Oximetry - Lab 07/22/20 07:57 07/22/20 07:57 Most recent lab results ABG pH 7.500 pH Units (7.350-7.450) H 07/22/20 04:25 ABG pCO2 31.2 mm Hg 07/22/20 04:25 ABG pO2 104.9 mm Hg (80.0-90.0) H 07/22/20 04:25 ABG HCO3 23.7 mmol/L (20.0-26.0) 07/22/20 04:25 ABG O2 Saturation 98.1 % (95.0-99.0) 07/22/20 04:25 Calcium 7.8 mg/dL (8.4-10.2) L 07/22/20 07:57 Phosphorus 1.10 mg/dL (2.5-4.5) L 07/22/20 07:57 Magnesium 1.50 mg/dL (1.7-2.3) L 07/22/20 07:57 Medications & Allergies - Medications Allergies/Adverse Reactions: Allergies No Known Allergies Allergy (Verified 07/16/20 22:03) Home Medications: Home Medications Medication Instructions Recorded Confirmed Last Taken Type No Known Home Medications [No 07/17/20 07/17/20 Unknown History Reported Home Medications] Active Medications: Generic Name Dose Route Start Last Admin Trade Name Cruz PRN Reason Stop Dose Admin Acyclovir 370 mg/ Sodium 107.4 mls @ 100 mls/hr 07/17/20 12:00 07/22/20 09:27 Chloride IV 100 mls/hr Q12HR ESTELA Administration Protocol Ceftriaxone Sodium 1 gm in 50 mls @ 100 mls/hr 07/17/20 12:00 07/22/20 09:28 Rocephin/Ns 1 Gm/50 Ml IV 100 mls/hr Q24HR ESTELA Administration Protocol Thiamine HCl 100 mg/ Sodium 51 mls @ 100 mls/hr 07/18/20 10:00 07/22/20 09:28 Chloride IV 100 mls/hr QDAY ESTELA Administration Folic Acid 1 mg/ Sodium 50.2 mls @ 200.8 mls/hr 07/18/20 10:00 07/22/20 09:28 Chloride IV 200.8 mls/hr QDAY ESTELA Administration Pantoprazole Sodium 80 mg/ 100 mls @ 10 mls/hr 07/19/20 06:00 07/19/20 06:02 Sodium Chloride IV 8 mg/hr DIRECT ESTELA 10 mls/hr Administration 8 MG/HR Dopamine HCl/Dextrose 800 mg in 250 mls @ 2.807 mls/hr 07/19/20 05:45 07/19/20 05:55 Intropin Drip 800 Mg/D5w 250 Ml IV 20 mcg/kg/min TITR ESTELA 28.066 mls/hr Administration Protocol 2 MCG/KG/MIN Vasopressin 20 unit/ Sodium 101 mls @ 9.09 mls/hr 07/19/20 10:00 07/22/20 02:47 Chloride IV 0.03 units/min TITR ESTELA 9.09 mls/hr Administration Protocol 0.03 UNITS/MIN Norepinephrine 8 mg/ Sodium 250 mls @ 3.75 mls/hr 07/19/20 21:00 07/22/20 09:25 Chloride IV 8 mcg/min TITR ESTELA 15 mls/hr Titration Protocol 2 MCG/MIN Potassium Chloride 20 meq in 100 mls @ 100 mls/hr 07/22/20 10:00 Kcl 20meq/100ml IV 07/22/20 11:59 Q1H ESTELA Magnesium Sulfate 2 gm in 50 mls @ 25 mls/hr 07/22/20 10:24 Magnesium Sulfate 2gm/50ml IV 07/22/20 12:23 ONCE ONE Magnesium Hydroxide 30 ml 07/17/20 03:56 Magnesium Hydroxide (Mom) Oral Liqd Udc PO Q4H PRN Constipation Ondansetron HCl 4 mg 07/17/20 03:56 07/18/20 20:00 Ondansetron 4 Mg/2 Ml Inj IV 4 mg Q8H PRN Administration Nausea And Vomiting Sodium Chloride 10 ml 07/17/20 10:00 07/21/20 21:48 Sodium Chloride 0.9% 10 Ml Flush Syringe IV 10 ml BID ESTELA Administration Sodium Chloride 10 ml 07/17/20 03:56 Sodium Chloride 0.9% 10 Ml Flush Syringe IV PRN PRN LINE FLUSH
[2020-07-22] MEDS: POTASSIUM CHLORIDE 20 MEQ 20 MEQ/100 ML BAG IV SCH ×4 (10:27→19:54)
[2020-07-22] MEDS ORDERED: MAGNESIUM SULFATE 2 GM/50 ML BAG IV ONE (11:00)
[2020-07-22] MEDS ORDERED: SODIUM PHOSPHATE 30 MMOL in SODIUM CHLORIDE 0.9% 500 ML 500 ML IV ONE (11:00)
[2020-07-22] MEDS: NORepinephrine 8 MG in SODIUM CHLORIDE 0.9% 250ML 242 ML IV SCH ×3 (12:37→22:53)
[2020-07-22 13:33] LABS: Bilirubin,Direct 8.8 mg/dL (0-0.2)
--- NOTE | 2020-07-22 13:53 | Gastroenterology Progress Note ---
Assessment and Plan # Acute liver failure - etiology possible ETOH vs tylenol or both. completed NAC therapy. Liver numbers were improving with INR down to 1.8 (initially at <17) and AST and ALT down to 200s. Tbili at 9, but expect this is trailing marker. - s/p cardiac arrest on 07/19/[address] head on 07/19/2020 showing cerebral edema. Unclear if there is recovering from neurological standpoint but may still be early in the process. - discussed case again with [facility] today. Recommend for supportive care and repeat CT head. Rec - recommend formal neuro consult and repeat CT head - avoid hepatotoxins. - monitor LFTs and INR daily. - will follow. Subjective Date of service: 07/22/20 Principal diagnosis: Acute Liver Injury Interval history: Patient remains intubated and on pressors with levophed and vasopressin. Not responsive. Objective - Constitutional Vitals: Temp Pulse Resp BP Pulse Ox 95.8 F L 109 H 18 101/50 93 07/22/20 11:38 07/22/20 12:51 07/22/20 12:51 07/22/20 12:51 07/22/20 12:51 - Respiratory Respiratory effort: normal Respiratory: bilateral: CTA - Cardiovascular Rhythm: regular Heart Sounds: Present: S1 & S2 - Gastrointestinal General gastrointestinal: Present: soft, non-tender, non-distended - Neurologic Neurological: other (not responsive) - Labs CBC & Chem 7: 07/22/20 07:57 07/22/20 07:57 Labs: Laboratory Results - last 24 hr 07/21/20 07/21/20 07/21/20 13:59 16:14 16:14 WBC RBC Hgb Hct MCV MCH MCHC RDW Plt Count Add Manual Diff Total Counted Seg Neuts % (Manual) Band Neutrophils % Lymphocytes % (Manual) Monocytes % (Manual) Eosinophils % (Manual) Metamyelocytes % Nucleated RBC % Seg Neutrophils # Man Band Neutrophils # Lymphocytes # (Manual) Abs React Lymphs (Man) Monocytes # (Manual) Eosinophils # (Manual) Basophils # (Manual) Metamyelocytes # Myelocytes # Promyelocytes # Blast Cells # WBC Morphology Hypersegmented Neuts Hyposegmented Neuts Hypogranular Neuts Smudge Cells Toxic Granulation Toxic Vacuolation Dohle Bodies Pelger-Huet Anomaly Fede Rods Platelet Estimate Clumped Platelets Plt Clumps, EDTA Large Platelets Giant Platelets Platelet Satelliting Plt Morphology Comment RBC Morphology Dimorphic RBCs Polychromasia Hypochromasia Poikilocytosis Anisocytosis Microcytosis Macrocytosis Spherocytes Pappenheimer Bodies Sickle Cells Target Cells Tear Drop Cells Ovalocytes Helmet Cells [place] Bodies Mikado Rings Shashank Cells Bite Cells Crenated Cell Elliptocytes Acanthocytes (Spur) Rouleaux Hemoglobin C Crystals Schistocytes Malaria parasites Richard Bodies Hem Pathologist Commnt PT INR ABG pH ABG pCO2 ABG pO2 ABG HCO3 ABG O2 Saturation ABG O2 Content ABG Base Excess ABG Hemoglobin ABG Carboxyhemoglobin ABG Methemoglobin Oxyhemoglobin FiO2 Sodium 138 D Potassium 3.0 L Chloride 112.5 H Carbon Dioxide 16 L D Anion Gap 13 BUN 48 H Creatinine 0.8 D Estimated GFR > 60 BUN/Creatinine Ratio 60 Glucose 157 H POC Glucose 164 H Calcium 7.3 L Phosphorus Magnesium 2.20 Total Bilirubin Direct Bilirubin Indirect Bilirubin AST ALT Alkaline Phosphatase Total Protein Albumin Albumin/Globulin Ratio 07/21/20 07/21/20 07/21/20 17:22 20:06 23:37 WBC RBC Hgb Hct MCV MCH MCHC RDW Plt Count Add Manual Diff Total Counted Seg Neuts % (Manual) Band Neutrophils % Lymphocytes % (Manual) Monocytes % (Manual) Eosinophils % (Manual) Metamyelocytes % Nucleated RBC % Seg Neutrophils # Man Band Neutrophils # Lymphocytes # (Manual) Abs React Lymphs (Man) Monocytes # (Manual) Eosinophils # (Manual) Basophils # (Manual) Metamyelocytes # Myelocytes # Promyelocytes # Blast Cells # WBC Morphology Hypersegmented Neuts Hyposegmented Neuts Hypogranular Neuts Smudge Cells Toxic Granulation Toxic Vacuolation Dohle Bodies Pelger-Huet Anomaly Fede Rods Platelet Estimate Clumped Platelets Plt Clumps, EDTA Large Platelets Giant Platelets Platelet Satelliting Plt Morphology Comment RBC Morphology Dimorphic RBCs Polychromasia Hypochromasia Poikilocytosis Anisocytosis Microcytosis Macrocytosis Spherocytes Pappenheimer Bodies Sickle Cells Target Cells Tear Drop Cells Ovalocytes Helmet Cells [place] Bodies Mikado Rings Shashank Cells Bite Cells Crenated Cell Elliptocytes Acanthocytes (Spur) Rouleaux Hemoglobin C Crystals Schistocytes Malaria parasites Richard Bodies Hem Pathologist Commnt PT INR ABG pH ABG pCO2 ABG pO2 ABG HCO3 ABG O2 Saturation ABG O2 Content ABG Base Excess ABG Hemoglobin ABG Carboxyhemoglobin ABG Methemoglobin Oxyhemoglobin FiO2 Sodium Potassium Chloride Carbon Dioxide Anion Gap BUN Creatinine Estimated GFR BUN/Creatinine Ratio Glucose POC Glucose 171 H 128 H 98 Calcium Phosphorus Magnesium Total Bilirubin Direct Bilirubin Indirect Bilirubin AST ALT Alkaline Phosphatase Total Protein Albumin Albumin/Globulin Ratio 07/22/20 07/22/20 07/22/20 04:14 04:25 07:57 WBC 28.9 H RBC 2.35 L Hgb 8.0 L Hct 22.2 L MCV 94 MCH 34 H MCHC 36 H RDW 20.5 H Plt Count 41 L Add Manual Diff Complete Total Counted 100 Seg Neuts % (Manual) 83.0 H Band Neutrophils % 3.0 Lymphocytes % (Manual) 6.0 L Monocytes % (Manual) 5.0 Eosinophils % (Manual) 2.0 Metamyelocytes % 1.0 Nucleated RBC % 2.0 H Seg Neutrophils # Man 24.0 H Band Neutrophils # 0.9 Lymphocytes # (Manual) 1.7 Abs React Lymphs (Man) 0.0 Monocytes # (Manual) 1.4 H Eosinophils # (Manual) 0.6 H Basophils # (Manual) 0.0 Metamyelocytes # 0.3 Myelocytes # 0.0 Promyelocytes # 0.0 Blast Cells # 0.0 WBC Morphology Not Reportable Hypersegmented Neuts Not Reportable Hyposegmented Neuts Not Reportable Hypogranular Neuts Not Reportable Smudge Cells Not Reportable Toxic Granulation Not Reportable Toxic Vacuolation Not Reportable Dohle Bodies Not Reportable Pelger-Huet Anomaly Not Reportable Fede Rods Not Reportable Platelet Estimate Consistent w auto Clumped Platelets Not Reportable Plt Clumps, EDTA Not Reportable Large Platelets Few Giant Platelets Not Reportable Platelet Satelliting Not Reportable Plt Morphology Comment Not Reportable RBC Morphology Not Reportable Dimorphic RBCs Not Reportable Polychromasia Not Reportable Hypochromasia Not Reportable Poikilocytosis 2+ Anisocytosis 1+ Microcytosis Not Reportable Macrocytosis Not Reportable Spherocytes Not Reportable Pappenheimer Bodies Not Reportable Sickle Cells Not Reportable Target Cells 2+ Tear Drop Cells Not Reportable Ovalocytes Not Reportable Helmet Cells Not Reportable [place] Bodies Not Reportable Mik[place] Rings Not Reportable Shashank Cells Not Reportable Bite Cells Not Reportable Crenated Cell Not Reportable Elliptocytes Not Reportable Acanthocytes (Spur) Not Reportable Rouleaux Not Reportable Hemoglobin C Crystals Not Reportable Schistocytes Not Reportable Malaria parasites Not Reportable Richard Bodies Not Reportable Hem Pathologist Commnt No PT INR ABG pH 7.500 H ABG pCO2 31.2 ABG pO2 104.9 H ABG HCO3 23.7 ABG O2 Saturation 98.1 ABG O2 Content 11.7 ABG Base Excess 0.8 ABG Hemoglobin 8.6 L ABG Carboxyhemoglobin 2.3 ABG Methemoglobin 0.5 Oxyhemoglobin 95.4 FiO2 40 Sodium Potassium Chloride Carbon Dioxide Anion Gap BUN Creatinine Estimated GFR BUN/Creatinine Ratio Glucose POC Glucose 103 Calcium Phosphorus Magnesium Total Bilirubin Direct Bilirubin Indirect Bilirubin AST ALT Alkaline Phosphatase Total Protein Albumin Albumin/Globulin Ratio 07/22/20 07/22/20 07/22/20 07:57 07:57 11:15 WBC RBC Hgb Hct MCV MCH MCHC RDW Plt Count Add Manual Diff Total Counted Seg Neuts % (Manual) Band Neutrophils % Lymphocytes % (Manual) Monocytes % (Manual) Eosinophils % (Manual) Metamyelocytes % Nucleated RBC % Seg Neutrophils # Man Band Neutrophils # Lymphocytes # (Manual) Abs React Lymphs (Man) Monocytes # (Manual) Eosinophils # (Manual) Basophils # (Manual) Metamyelocytes # Myelocytes # Promyelocytes # Blast Cells # WBC Morphology Hypersegmented Neuts Hyposegmented Neuts Hypogranular Neuts Smudge Cells Toxic Granulation Toxic Vacuolation Dohle Bodies Pelger-Huet Anomaly Fede Rods Platelet Estimate Clumped Platelets Plt Clumps, EDTA Large Platelets Giant Platelets Platelet Satelliting Plt Morphology Comment RBC Morphology Dimorphic RBCs Polychromasia Hypochromasia Poikilocytosis Anisocytosis Microcytosis Macrocytosis Spherocytes Pappenheimer Bodies Sickle Cells Target Cells Tear Drop Cells Ovalocytes Helmet Cells [place] Bodies Mik[place] Rings [place] Cells Bite Cells Crenated Cell Elliptocytes Acanthocytes (Spur) Rouleaux Hemoglobin C Crystals Schistocytes Malaria parasites Richard Bodies Hem Pathologist Commnt PT 21.6 H INR 1.87 H ABG pH ABG pCO2 ABG pO2 ABG HCO3 ABG O2 Saturation ABG O2 Content ABG Base Excess ABG Hemoglobin ABG Carboxyhemoglobin ABG Methemoglobin Oxyhemoglobin FiO2 Sodium 147 H D Potassium 2.6 L* Chloride 112.7 H Carbon Dioxide 26 D Anion Gap 11 BUN 51 H Creatinine 1.0 Estimated GFR > 60 BUN/Creatinine Ratio 51 Glucose 104 H POC Glucose 92 Calcium 7.8 L Phosphorus 1.10 L Magnesium 1.50 L Total Bilirubin 9.80 H Direct Bilirubin Indirect Bilirubin AST 234 H ALT 297 H Alkaline Phosphatase 296 H Total Protein 4.1 L Albumin 1.8 L Albumin/Globulin Ratio 0.8 07/22/20 12:08 WBC RBC Hgb Hct MCV MCH MCHC RDW Plt Count Add Manual Diff Total Counted Seg Neuts % (Manual) Band Neutrophils % Lymphocytes % (Manual) Monocytes % (Manual) Eosinophils % (Manual) Metamyelocytes % Nucleated RBC % Seg Neutrophils # Man Band Neutrophils # Lymphocytes # (Manual) Abs React Lymphs (Man) Monocytes # (Manual) Eosinophils # (Manual) Basophils # (Manual) Metamyelocytes # Myelocytes # Promyelocytes # Blast Cells # WBC Morphology Hypersegmented Neuts Hyposegmented Neuts Hypogranular Neuts Smudge Cells Toxic Granulation Toxic Vacuolation Dohle Bodies Pelger-Huet Anomaly Feed Rods Platelet Estimate Clumped Platelets Plt Clumps, EDTA Large Platelets Giant Platelets Platelet Satelliting Plt Morphology Comment RBC Morphology Dimorphic RBCs Polychromasia Hypochromasia Poikilocytosis Anisocytosis Microcytosis Macrocytosis Spherocytes Pappenheimer Bodies Sickle Cells Target Cells Tear Drop Cells Ovalocytes Helmet Cells [place] Bodies Mik[place] Rings [place] Cells Bite Cells Crenated Cell Elliptocytes Acanthocytes (Spur) Rouleaux Hemoglobin C Crystals Schistocytes Malaria parasites Richard Bodies Hem Pathologist Commnt PT INR ABG pH ABG pCO2 ABG pO2 ABG HCO3 ABG O2 Saturation ABG O2 Content ABG Base Excess ABG Hemoglobin ABG Carboxyhemoglobin ABG Methemoglobin Oxyhemoglobin FiO2 Sodium Potassium Chloride Carbon Dioxide Anion Gap BUN Creatinine Estimated GFR BUN/Creatinine Ratio Glucose POC Glucose Calcium Phosphorus Magnesium Total Bilirubin 11.10 H Direct Bilirubin 8.8 H Indirect Bilirubin 2.3 AST 231 H ALT 286 H Alkaline Phosphatase 323 H Total Protein 3.6 L Albumin 2.0 L Albumin/Globulin Ratio 1.3
[2020-07-22] MEDS ORDERED: SODIUM CHLORIDE 0.9% 1000 ML 1,000 ML IV ONE (19:39)
[2020-07-22] MEDS ORDERED: PHENYLEPHRINE 100 MG in SODIUM CHLORIDE 0.9% 90 ML IV SCH (19:45)
--- NOTE | 2020-07-22 19:51 | Progress Note ---
Assessment and Plan Imp: 1. Acute liver failure of ? etiology 2. RINA 3. Acute respiratory failure, hypoxia 4. S/p CP arrest 5. Encephalopathy, probably anoxic + cerebral edema related to hepatic failure 6. Pulmonary edema versus aspiration pneumonitis 7. Lactic acidosis 8. NAGMA Rec: 1. Avoid all sedation; d/c Morphine 2. Mentation precludes extubation 3. Worsening hypotension -> 1 liter bolus of NS and add Phenylephrine; goal MAP 60-65 or > 4. Recommend formal neurology evaluation 5. Start TFs 6. SCDs and PPI 7. Needs f/u CT head per GI but really too unstable now to leave ICU 8. ABX per ID; repeat blood cultures 9. K, Mag, and Phos repleted per primary and renal; repeat labs and CXR in AM 10. Increase FiO2 to 40% given borderline sats of 88-89% 11. Prognosis is dismal at this point; I do not believe she can or will survive this; would consider trying to address code status w/ family; discussed w/ RN No family present; CCt 31 minutes Subjective Date of service: 07/22/20 Principal diagnosis: Acute Liver Injury Interval history: ACVC 18/450/30%/+6. Unresponsive/comatose. Cannot give history. On Vasopressin and Levophed, the latter of which is now maxed out per RN. Patient also hypothermic. Active Medications Acyclovir 370 mg/ Sodium (Chloride) 107.4 mls @ 100 mls/hr IV Q12HR [facility]; Protocol Last Admin: 07/22/20 09:27 Dose: 100 mls/hr Documented by: Ceftriaxone Sodium (Rocephin/Ns 1 Gm/50 Ml) 1 gm in 50 mls @ 100 mls/hr IV Q24HR [facility]; Protocol Last Admin: 07/22/20 09:28 Dose: 100 mls/hr Documented by: Thiamine HCl 100 mg/ Sodium (Chloride) 51 mls @ 100 mls/hr IV QDAY [facility] Last Admin: 07/22/20 09:28 Dose: 100 mls/hr Documented by: Folic Acid 1 mg/ Sodium (Chloride) 50.2 mls @ 200.8 mls/hr IV QDAY [facility] Last Admin: 07/22/20 09:28 Dose: 200.8 mls/hr Documented by: Pantoprazole Sodium 80 mg/ (Sodium Chloride) 100 mls @ 10 mls/hr IV DIRECT [facility] Last Admin: 07/19/20 06:02 Dose: 8 mg/hr, 10 mls/hr Documented by: Dopamine HCl/Dextrose (Intropin Drip 800 Mg/D5w 250 Ml) 800 mg in 250 mls @ 2.807 mls/hr IV TITR [facility]; Protocol Last Admin: 07/19/20 05:55 Dose: 20 mcg/kg/min, 28.066 mls/hr Documented by: Vasopressin 20 unit/ Sodium (Chloride) 101 mls @ 9.09 mls/hr IV TITR [facility]; Protocol Last Admin: 07/22/20 12:37 Dose: 0.03 units/min, 9.09 mls/hr Documented by: Norepinephrine 8 mg/ Sodium (Chloride) 250 mls @ 3.75 mls/hr IV TITR [facility]; Protocol Last Admin: 07/22/20 18:26 Dose: 24 mcg/min, 45 mls/hr Documented by: Sodium Chloride (Nacl 0.9% 1000 Ml) 1,000 mls @ 999 mls/hr IV BOLUS ONE Stop: 07/22/20 20:39 Phenylephrine HCl 100 mg/ (Sodium Chloride) 100 mls @ 3 mls/hr IV TITR [facility]; Protocol Magnesium Hydroxide (Magnesium Hydroxide (Mom) Oral Liqd Udc) 30 ml PO Q4H PRN PRN Reason: Constipation Ondansetron HCl (Ondansetron 4 Mg/2 Ml Inj) 4 mg IV Q8H PRN PRN Reason: Nausea And Vomiting Last Admin: 07/18/20 20:00 Dose: 4 mg Documented by: Sodium Chloride (Sodium Chloride 0.9% 10 Ml Flush Syringe) 10 ml IV BID [facility] Last Admin: 07/22/20 10:28 Dose: 10 ml Documented by: Sodium Chloride (Sodium Chloride 0.9% 10 Ml Flush Syringe) 10 ml IV PRN PRN PRN Reason: LINE FLUSH Objective Vital Signs - 12hr 07/22/20 07/22/20 07/22/20 07:51 08:00 08:11 Temperature Pulse Rate 91 H 91 H 91 H Pulse Rate [ 91 H From Monitor] Respiratory 25 H 25 H 25 H Rate Blood Pressure 100/54 104/51 104/51 O2 Sat by Pulse 99 99 99 Oximetry 07/22/20 07/22/20 07/22/20 08:21 08:30 08:41 Temperature Pulse Rate 91 H 91 H 91 H Pulse Rate [ From Monitor] Respiratory 25 H 25 H 25 H Rate Blood Pressure 101/53 100/54 100/54 O2 Sat by Pulse 99 98 99 Oximetry 07/22/20 07/22/20 07/22/20 08:51 08:52 09:00 Temperature Pulse Rate 91 H 89 89 Pulse Rate [ From Monitor] Respiratory 17 18 Rate Blood Pressure 99/54 99/54 98/51 O2 Sat by Pulse 98 96 95 Oximetry 07/22/20 07/22/20 07/22/20 09:11 09:21 09:30 Temperature Pulse Rate 88 89 90 Pulse Rate [ From Monitor] Respiratory 18 18 18 Rate Blood Pressure 98/51 97/47 103/63 O2 Sat by Pulse 96 95 93 Oximetry 07/22/20 07/22/20 07/22/20 09:41 09:51 10:00 Temperature Pulse Rate 92 H 92 H 92 H Pulse Rate [ From Monitor] Respiratory 18 18 18 Rate Blood Pressure 103/63 101/46 104/46 O2 Sat by Pulse 92 91 92 Oximetry 07/22/20 07/22/20 07/22/20 10:11 10:21 10:30 Temperature Pulse Rate 92 H 94 H 98 H Pulse Rate [ From Monitor] Respiratory 18 18 18 Rate Blood Pressure 104/46 96/44 105/59 O2 Sat by Pulse 92 92 91 Oximetry 07/22/20 07/22/20 07/22/20 10:41 10:51 11:00 Temperature Pulse Rate 99 H 100 H 101 H Pulse Rate [ From Monitor] Respiratory 18 18 18 Rate Blood Pressure 105/59 98/42 99/42 O2 Sat by Pulse 91 92 93 Oximetry 07/22/20 07/22/20 07/22/20 11:11 11:21 11:30 Temperature Pulse Rate 102 H 103 H 105 H Pulse Rate [ From Monitor] Respiratory 18 18 18 Rate Blood Pressure 99/42 96/47 94/49 O2 Sat by Pulse 93 93 92 Oximetry 07/22/20 07/22/20 07/22/20 11:38 11:41 11:51 Temperature 95.8 F L Pulse Rate 106 H 107 H Pulse Rate [ From Monitor] Respiratory 18 18 Rate Blood Pressure 94/49 98/46 O2 Sat by Pulse 93 94 Oximetry 07/22/20 07/22/20 07/22/20 12:00 12:11 12:13 Temperature Pulse Rate 107 H 108 H 108 H Pulse Rate [ 107 H From Monitor] Respiratory 18 18 Rate Blood Pressure 98/42 98/42 93/44 O2 Sat by Pulse 93 95 93 Oximetry 07/22/20 07/22/20 07/22/20 12:21 12:30 12:41 Temperature Pulse Rate 108 H 108 H 108 H Pulse Rate [ From Monitor] Respiratory 18 18 18 Rate Blood Pressure 93/44 95/44 95/44 O2 Sat by Pulse 94 93 93 Oximetry 07/22/20 07/22/20 07/22/20 12:51 13:00 13:11 Temperature Pulse Rate 109 H 109 H 109 H Pulse Rate [ From Monitor] Respiratory 18 18 18 Rate Blood Pressure 101/50 95/46 95/46 O2 Sat by Pulse 93 92 93 Oximetry 07/22/20 07/22/20 07/22/20 13:21 13:30 13:41 Temperature Pulse Rate 109 H 110 H 112 H Pulse Rate [ From Monitor] Respiratory 18 18 18 Rate Blood Pressure 93/42 100/48 100/48 O2 Sat by Pulse 92 91 92 Oximetry 07/22/20 07/22/20 07/22/20 13:51 14:00 14:11 Temperature Pulse Rate 112 H 112 H 113 H Pulse Rate [ From Monitor] Respiratory 18 18 18 Rate Blood Pressure 93/43 92/42 92/42 O2 Sat by Pulse 92 91 92 Oximetry 07/22/20 07/22/20 07/22/20 14:21 14:30 14:41 Temperature Pulse Rate 114 H 114 H 116 H Pulse Rate [ From Monitor] Respiratory 18 18 18 Rate Blood Pressure 98/44 98/46 98/46 O2 Sat by Pulse 91 91 92 Oximetry 07/22/20 07/22/20 07/22/20 14:51 15:00 15:11 Temperature Pulse Rate 116 H 118 H 118 H Pulse Rate [ From Monitor] Respiratory 18 18 18 Rate Blood Pressure 96/47 104/51 104/51 O2 Sat by Pulse 91 91 92 Oximetry 07/22/20 16:47 Temperature Pulse Rate 123 H Pulse Rate [ From Monitor] Respiratory Rate Blood Pressure 105/49 O2 Sat by Pulse 91 Oximetry Constitutional: comatose Eyes: icteric ENT: other (orally intubated, no sedation) Neck: supple Effort: normal Ascultation: Bilateral: other (coarse BS bilaterally) Cardiovascular: other (tachy, RR; no mrg) Gastrointestinal: normoactive bowel sounds, soft, non-tender, non-distended Integumentary: normal Extremities: no cyanosis, edema (1+ bilateral LE edema) Neurologic: other (unresponsive) Psychiatric: other (unable to assess) CBC and BMP: 07/22/20 07:57 07/22/20 07:57 ABG, PT/INR, D-dimer: ABG ABG pH 7.500 pH Units (7.350-7.450) H 07/22/20 04:25 POC ABG pCO2 32.5 mmHg (32.0-48.0) 07/20/20 10:42 ABG pCO2 31.2 mm Hg 07/22/20 04:25 POC ABG pO2 113.1 mmHg (83-108) H 07/20/20 10:42 ABG pO2 104.9 mm Hg (80.0-90.0) H 07/22/20 04:25 POC ABG HCO3 22.0 07/20/20 10:42 ABG O2 Saturation 98.1 % (95.0-99.0) 07/22/20 04:25 PT/INR, D-dimer PT 21.6 Sec. (12.2-14.9) H 07/22/20 07:57 INR 1.87 (0.87-1.13) H 07/22/20 07:57 Abnormal lab findings: Abnormal Labs 07/16/20 07/16/20 07/16/20 03:54 20:47 20:47 WBC 33.9 H RBC Hgb Hct MCV 107 H MCH 34 H MCHC RDW 22.0 H Plt Count Lymph % (Auto) [place] % (Auto) Lymph # (Auto) [place] # (Auto) Eos # (Auto) Seg Neutrophils % Seg Neuts % (Manual) 89.0 H Lymphocytes % (Manual) 2.0 L Monocytes % (Manual) Nucleated RBC % 1.0 H Seg Neutrophils # Seg Neutrophils # Man 30.2 H Lymphocytes # (Manual) 0.7 L Monocytes # (Manual) 1.4 H Eosinophils # (Manual) PT INR ABG pH POC ABG pCO2 POC ABG pO2 ABG pO2 ABG Base Excess ABG Hemoglobin ABG Oxyhemoglobin ABG Potassium ABG Chloride ABG Glucose VBG pH Oxyhemoglobin Carboxyhemoglobin Sodium Potassium 5.1 H Chloride Carbon Dioxide 9 L* BUN 20 H Creatinine 1.9 H Glucose 30 L* POC Glucose Lactic Acid Calcium Phosphorus Magnesium Total Bilirubin 5.40 H Direct Bilirubin AST 44081 H ALT 1829 H Alkaline Phosphatase 141 H Ammonia Total Creatine Kinase Total Protein Albumin Lipase 9 L Arterial Blood Glucose Arterial Blood Ionized Calcium Urine WBC (Auto) 57.0 H U Epithel Cells (Auto) 23.0 H Acetaminophen Syphilis IgG Antibody HSV I Specific Ab Crossmatch 07/16/20 07/16/20 07/16/20 20:47 22:43 23:06 WBC RBC Hgb Hct MCV MCH MCHC RDW Plt Count Lymph % (Auto) [place] % (Auto) Lymph # (Auto) [place] # (Auto) Eos # (Auto) Seg Neutrophils % Seg Neuts % (Manual) Lymphocytes % (Manual) Monocytes % (Manual) Nucleated RBC % Seg Neutrophils # Seg Neutrophils # Man Lymphocytes # (Manual) Monocytes # (Manual) Eosinophils # (Manual) PT INR ABG pH POC ABG pCO2 POC ABG pO2 ABG pO2 ABG Base Excess ABG Hemoglobin ABG Oxyhemoglobin ABG Potassium ABG Chloride ABG Glucose VBG pH Oxyhemoglobin Carboxyhemoglobin Sodium Potassium Chloride Carbon Dioxide BUN Creatinine Glucose POC Glucose 140 H Lactic Acid 14.90 H* Calcium Phosphorus Magnesium Total Bilirubin Direct Bilirubin AST ALT Alkaline Phosphatase Ammonia Total Creatine Kinase 230 H Total Protein Albumin Lipase Arterial Blood Glucose Arterial Blood Ionized Calcium Urine WBC (Auto) U Epithel Cells (Auto) Acetaminophen Syphilis IgG Antibody HSV I Specific Ab Crossmatch 07/17/20 07/17/20 07/17/20 01:46 01:46 04:55 WBC RBC Hgb Hct MCV MCH MCHC RDW Plt Count Lymph % (Auto) [place] % (Auto) Lymph # (Auto) [place] # (Auto) Eos # (Auto) Seg Neutrophils % Seg Neuts % (Manual) Lymphocytes % (Manual) Monocytes % (Manual) Nucleated RBC % Seg Neutrophils # Seg Neutrophils # Man Lymphocytes # (Manual) Monocytes # (Manual) Eosinophils # (Manual) PT INR ABG pH POC ABG pCO2 POC ABG pO2 ABG pO2 ABG Base Excess ABG Hemoglobin ABG Oxyhemoglobin ABG Potassium ABG Chloride ABG Glucose VBG pH 7.085 L* Oxyhemoglobin Carboxyhemoglobin Sodium Potassium Chloride Carbon Dioxide BUN Creatinine Glucose POC Glucose Lactic Acid 13.20 H* 12.00 H* Calcium Phosphorus Magnesium Total Bilirubin Direct Bilirubin AST ALT Alkaline Phosphatase Ammonia Total Creatine Kinase Total Protein Albumin Lipase Arterial Blood Glucose Arterial Blood Ionized Calcium Urine WBC (Auto) U Epithel Cells (Auto) Acetaminophen Syphilis IgG Antibody HSV I Specific Ab Crossmatch 07/17/20 07/17/20 07/17/20 06:05 07:33 07:48 WBC RBC Hgb Hct MCV MCH MCHC RDW Plt Count Lymph % (Auto) [place] % (Auto) Lymph # (Auto) [place] # (Auto) Eos # (Auto) Seg Neutrophils % Seg Neuts % (Manual) Lymphocytes % (Manual) Monocytes % (Manual) Nucleated RBC % Seg Neutrophils # Seg Neutrophils # Man Lymphocytes # (Manual) Monocytes # (Manual) Eosinophils # (Manual) PT INR ABG pH POC ABG pCO2 POC ABG pO2 ABG pO2 ABG Base Excess ABG Hemoglobin ABG Oxyhemoglobin ABG Potassium ABG Chloride ABG Glucose VBG pH Oxyhemoglobin Carboxyhemoglobin Sodium Potassium Chloride Carbon Dioxide BUN Creatinine Glucose POC Glucose 59 L 125 H Lactic Acid 12.00 H* Calcium Phosphorus Magnesium Total Bilirubin Direct Bilirubin AST ALT Alkaline Phosphatase Ammonia Total Creatine Kinase Total Protein Albumin Lipase Arterial Blood Glucose Arterial Blood Ionized Calcium Urine WBC (Auto) U Epithel Cells (Auto) Acetaminophen Syphilis IgG Antibody HSV I Specific Ab Crossmatch 07/17/20 07/17/20 07/17/20 09:23 09:23 09:24 WBC RBC Hgb Hct MCV MCH MCHC RDW Plt Count Lymph % (Auto) [place] % (Auto) Lymph # (Auto) [place] # (Auto) Eos # (Auto) Seg Neutrophils % Seg Neuts % (Manual) Lymphocytes % (Manual) Monocytes % (Manual) Nucleated RBC % Seg Neutrophils # Seg Neutrophils # Man Lymphocytes # (Manual) Monocytes # (Manual) Eosinophils # (Manual) PT INR ABG pH POC ABG pCO2 POC ABG pO2 ABG pO2 ABG Base Excess ABG Hemoglobin ABG Oxyhemoglobin ABG Potassium ABG Chloride ABG Glucose VBG pH Oxyhemoglobin Carboxyhemoglobin Sodium Potassium 5.7 H Chloride 107.6 H Carbon Dioxide 13 L BUN 24 H Creatinine 2.1 H Glucose 121 H POC Glucose Lactic Acid Calcium 6.0 L D Phosphorus Magnesium Total Bilirubin 3.80 H Direct Bilirubin AST 8355 H ALT 1522 H Alkaline Phosphatase Ammonia Total Creatine Kinase 332 H Total Protein 4.7 L D Albumin 2.8 L Lipase Arterial Blood Glucose Arterial Blood Ionized Calcium Urine WBC (Auto) U Epithel Cells (Auto) Acetaminophen 5.0 L Syphilis IgG Antibody HSV I Specific Ab Crossmatch 07/17/20 07/17/20 07/17/20 11:08 11:08 11:08 WBC RBC Hgb Hct MCV MCH MCHC RDW Plt Count Lymph % (Auto) [place] % (Auto) Lymph # (Auto) [place] # (Auto) Eos # (Auto) Seg Neutrophils % Seg Neuts % (Manual) Lymphocytes % (Manual) Monocytes % (Manual) Nucleated RBC % Seg Neutrophils # Seg Neutrophils # Man Lymphocytes # (Manual) Monocytes # (Manual) Eosinophils # (Manual) PT 60.1 H INR > 17.67 H* ABG pH POC ABG pCO2 POC ABG pO2 ABG pO2 ABG Base Excess ABG Hemoglobin ABG Oxyhemoglobin ABG Potassium ABG Chloride ABG Glucose VBG pH Oxyhemoglobin Carboxyhemoglobin Sodium Potassium Chloride Carbon Dioxide BUN Creatinine Glucose POC Glucose Lactic Acid 9.80 H* Calcium Phosphorus Magnesium Total Bilirubin Direct Bilirubin AST ALT Alkaline Phosphatase Ammonia Total Creatine Kinase Total Protein Albumin Lipase Arterial Blood Glucose Arterial Blood Ionized Calcium Urine WBC (Auto) U Epithel Cells (Auto) Acetaminophen Syphilis IgG Antibody Reactive A HSV I Specific Ab Crossmatch 07/17/20 07/17/20 07/17/20 11:08 14:34 14:34 WBC 27.2 H RBC 2.66 L Hgb 9.1 L D Hct 27.8 L D MCV 104 H MCH 34 H MCHC RDW 22.6 H Plt Count Lymph % (Auto) [place] % (Auto) Lymph # (Auto) [place] # (Auto) Eos # (Auto) Seg Neutrophils % Seg Neuts % (Manual) Lymphocytes % (Manual) Monocytes % (Manual) Nucleated RBC % Seg Neutrophils # Seg Neutrophils # Man Lymphocytes # (Manual) Monocytes # (Manual) Eosinophils # (Manual) PT INR ABG pH POC ABG pCO2 POC ABG pO2 ABG pO2 ABG Base Excess ABG Hemoglobin ABG Oxyhemoglobin ABG Potassium ABG Chloride ABG Glucose VBG pH Oxyhemoglobin Carboxyhemoglobin Sodium Potassium 5.4 H Chloride 107.7 H Carbon Dioxide 16 L BUN 26 H Creatinine 2.3 H Glucose 151 H POC Glucose Lactic Acid Calcium 5.8 L* Phosphorus Magnesium Total Bilirubin 3.30 H Direct Bilirubin AST 6751 H ALT 1325 H Alkaline Phosphatase Ammonia Total Creatine Kinase Total Protein 4.4 L Albumin 2.5 L Lipase Arterial Blood Glucose Arterial Blood Ionized Calcium Urine WBC (Auto) U Epithel Cells (Auto) Acetaminophen Syphilis IgG Antibody HSV I Specific Ab 5.23 H Crossmatch 07/17/20 07/17/20 07/17/20 14:34 14:34 14:34 WBC RBC Hgb Hct MCV MCH MCHC RDW Plt Count Lymph % (Auto) [place] % (Auto) Lymph # (Auto) [place] # (Auto) Eos # (Auto) Seg Neutrophils % Seg Neuts % (Manual) Lymphocytes % (Manual) Monocytes % (Manual) Nucleated RBC % Seg Neutrophils # Seg Neutrophils # Man Lymphocytes # (Manual) Monocytes # (Manual) Eosinophils # (Manual) PT 70.6 H INR 8.29 H* ABG pH POC ABG pCO2 POC ABG pO2 ABG pO2 ABG Base Excess ABG Hemoglobin ABG Oxyhemoglobin ABG Potassium ABG Chloride ABG Glucose VBG pH Oxyhemoglobin Carboxyhemoglobin Sodium Potassium Chloride Carbon Dioxide BUN Creatinine Glucose POC Glucose Lactic Acid 7.60 H* Calcium Phosphorus Magnesium Total Bilirubin Direct Bilirubin AST ALT Alkaline Phosphatase Ammonia 75.0 H Total Creatine Kinase Total Protein Albumin Lipase Arterial Blood Glucose Arterial Blood Ionized Calcium Urine WBC (Auto) U Epithel Cells (Auto) Acetaminophen Syphilis IgG Antibody HSV I Specific Ab Crossmatch 07/17/20 07/17/20 07/18/20 16:45 16:45 04:23 WBC 22.7 H RBC 2.47 L Hgb 8.5 L Hct 25.5 L MCV 103 H MCH 35 H MCHC RDW 21.7 H Plt Count Lymph % (Auto) 5.3 L [place] % (Auto) Lymph # (Auto) [place] # (Auto) Eos # (Auto) 0.7 H Seg Neutrophils % 88.2 H Seg Neuts % (Manual) Lymphocytes % (Manual) Monocytes % (Manual) Nucleated RBC % Seg Neutrophils # 20.0 H Seg Neutrophils # Man Lymphocytes # (Manual) Monocytes # (Manual) Eosinophils # (Manual) PT INR ABG pH POC ABG pCO2 POC ABG pO2 ABG pO2 ABG Base Excess ABG Hemoglobin ABG Oxyhemoglobin ABG Potassium ABG Chloride ABG Glucose VBG pH Oxyhemoglobin Carboxyhemoglobin Sodium Potassium Chloride 107.9 H Carbon Dioxide 17 L BUN 27 H Creatinine 2.5 H Glucose 144 H POC Glucose Lactic Acid 7.00 H* Calcium 6.0 L Phosphorus Magnesium Total Bilirubin 3.30 H Direct Bilirubin AST 6456 H ALT 1286 H Alkaline Phosphatase Ammonia Total Creatine Kinase Total Protein 4.2 L Albumin 2.5 L Lipase Arterial Blood Glucose Arterial Blood Ionized Calcium Urine WBC (Auto) U Epithel Cells (Auto) Acetaminophen Syphilis IgG Antibody HSV I Specific Ab Crossmatch 07/18/20 07/18/20 07/18/20 04:23 04:23 04:23 WBC RBC Hgb Hct MCV MCH MCHC RDW Plt Count Lymph % (Auto) [place] % (Auto) Lymph # (Auto) [place] # (Auto) Eos # (Auto) Seg Neutrophils % Seg Neuts % (Manual) Lymphocytes % (Manual) Monocytes % (Manual) Nucleated RBC % Seg Neutrophils # Seg Neutrophils # Man Lymphocytes # (Manual) Monocytes # (Manual) Eosinophils # (Manual) PT 52.9 H INR 5.78 H* ABG pH POC ABG pCO2 POC ABG pO2 ABG pO2 ABG Base Excess ABG Hemoglobin ABG Oxyhemoglobin ABG Potassium ABG Chloride ABG Glucose VBG pH Oxyhemoglobin Carboxyhemoglobin Sodium Potassium Chloride 110.0 H Carbon Dioxide 17 L BUN 33 H Creatinine 3.0 H Glucose 110 H POC Glucose Lactic Acid 5.40 H* Calcium 6.4 L Phosphorus Magnesium Total Bilirubin Direct Bilirubin AST ALT Alkaline Phosphatase Ammonia Total Creatine Kinase Total Protein Albumin Lipase Arterial Blood Glucose Arterial Blood Ionized Calcium Urine WBC (Auto) U Epithel Cells (Auto) Acetaminophen Syphilis IgG Antibody HSV I Specific Ab Crossmatch 07/18/20 07/18/20 07/18/20 04:23 07:25 Unknown WBC RBC Hgb Hct MCV MCH MCHC RDW Plt Count Lymph % (Auto) [place] % (Auto) Lymph # (Auto) [place] # (Auto) Eos # (Auto) Seg Neutrophils % Seg Neuts % (Manual) Lymphocytes % (Manual) Monocytes % (Manual) Nucleated RBC % Seg Neutrophils # Seg Neutrophils # Man Lymphocytes # (Manual) Monocytes # (Manual) Eosinophils # (Manual) PT INR ABG pH POC ABG pCO2 POC ABG pO2 ABG pO2 ABG Base Excess ABG Hemoglobin ABG Oxyhemoglobin ABG Potassium ABG Chloride ABG Glucose VBG pH Oxyhemoglobin Carboxyhemoglobin Sodium Potassium Chloride Carbon Dioxide BUN Creatinine Glucose POC Glucose Lactic Acid 5.50 H* 4.80 H* Calcium Phosphorus Magnesium Total Bilirubin Direct Bilirubin AST ALT Alkaline Phosphatase Ammonia 96.0 H Total Creatine Kinase Total Protein Albumin Lipase Arterial Blood Glucose Arterial Blood Ionized Calcium Urine WBC (Auto) U Epithel Cells (Auto) Acetaminophen Syphilis IgG Antibody HSV I Specific Ab Crossmatch 07/18/20 07/18/20 07/19/20 Unknown Unknown 02:47 WBC RBC Hgb Hct MCV MCH MCHC RDW Plt Count Lymph % (Auto) [place] % (Auto) Lymph # (Auto) [place] # (Auto) Eos # (Auto) Seg Neutrophils % Seg Neuts % (Manual) Lymphocytes % (Manual) Monocytes % (Manual) Nucleated RBC % Seg Neutrophils # Seg Neutrophils # Man Lymphocytes # (Manual) Monocytes # (Manual) Eosinophils # (Manual) PT 37.3 H INR 3.73 H ABG pH POC ABG pCO2 21.1 L POC ABG pO2 61.7 L ABG pO2 ABG Base Excess ABG Hemoglobin 8.5 L ABG Oxyhemoglobin 88.1 L ABG Potassium ABG Chloride 119.0 H ABG Glucose VBG pH Oxyhemoglobin Carboxyhemoglobin Sodium Potassium Chloride Carbon Dioxide BUN Creatinine Glucose POC Glucose Lactic Acid Calcium Phosphorus Magnesium Total Bilirubin 3.70 H Direct Bilirubin 3.0 H AST 2093 H ALT 822 H Alkaline Phosphatase Ammonia Total Creatine Kinase Total Protein 4.0 L Albumin 2.5 L Lipase Arterial Blood Glucose Arterial Blood Ionized Calcium 4.0 L Urine WBC (Auto) U Epithel Cells (Auto) Acetaminophen Syphilis IgG Antibody HSV I Specific Ab Crossmatch 07/19/20 07/19/20 07/19/20 03:01 03:01 03:01 WBC 19.4 H RBC 2.50 L Hgb 8.5 L Hct 26.1 L MCV 104 H MCH 34 H MCHC RDW 22.3 H Plt Count Lymph % (Auto) 3.7 L [place] % (Auto) Lymph # (Auto) 0.7 L [place] # (Auto) 0.9 H Eos # (Auto) Seg Neutrophils % Seg Neuts % (Manual) Lymphocytes % (Manual) Monocytes % (Manual) Nucleated RBC % Seg Neutrophils # 17.7 H Seg Neutrophils # Man Lymphocytes # (Manual) Monocytes # (Manual) Eosinophils # (Manual) PT 35.0 H INR 3.45 H ABG pH POC ABG pCO2 POC ABG pO2 ABG pO2 ABG Base Excess ABG Hemoglobin ABG Oxyhemoglobin ABG Potassium ABG Chloride ABG Glucose VBG pH Oxyhemoglobin Carboxyhemoglobin Sodium Potassium Chloride Carbon Dioxide BUN Creatinine Glucose POC Glucose Lactic Acid 5.90 H* Calcium Phosphorus Magnesium Total Bilirubin Direct Bilirubin AST ALT Alkaline Phosphatase Ammonia Total Creatine Kinase Total Protein Albumin Lipase Arterial Blood Glucose Arterial Blood Ionized Calcium Urine WBC (Auto) U Epithel Cells (Auto) Acetaminophen Syphilis IgG Antibody HSV I Specific Ab Crossmatch 07/19/20 07/19/20 07/19/20 03:01 03:01 05:25 WBC RBC Hgb Hct MCV MCH MCHC RDW Plt Count Lymph % (Auto) [place] % (Auto) Lymph # (Auto) [place] # (Auto) Eos # (Auto) Seg Neutrophils % Seg Neuts % (Manual) Lymphocytes % (Manual) Monocytes % (Manual) Nucleated RBC % Seg Neutrophils # Seg Neutrophils # Man Lymphocytes # (Manual) Monocytes # (Manual) Eosinophils # (Manual) PT INR ABG pH POC ABG pCO2 POC ABG pO2 ABG pO2 ABG Base Excess ABG Hemoglobin ABG Oxyhemoglobin ABG Potassium ABG Chloride ABG Glucose VBG pH Oxyhemoglobin Carboxyhemoglobin Sodium 149 H Potassium Chloride 116.6 H Carbon Dioxide 14 L BUN 48 H Creatinine 2.5 H Glucose POC Glucose 43 L Lactic Acid Calcium 7.4 L D Phosphorus Magnesium Total Bilirubin 3.70 H Direct Bilirubin AST 1730 H ALT 751 H Alkaline Phosphatase Ammonia 126.0 H Total Creatine Kinase Total Protein 4.3 L Albumin 2.4 L Lipase Arterial Blood Glucose Arterial Blood Ionized Calcium Urine WBC (Auto) U Epithel Cells (Auto) Acetaminophen Syphilis IgG Antibody HSV I Specific Ab Crossmatch 07/19/20 07/19/20 07/19/20 05:41 05:41 05:41 WBC 15.9 H RBC 1.80 L Hgb 6.2 L Hct 19.7 L* D MCV 109 H MCH 35 H MCHC RDW 22.7 H Plt Count 99 L Lymph % (Auto) 9.7 L [place] % (Auto) 8.3 H Lymph # (Auto) [place] # (Auto) 1.3 H Eos # (Auto) Seg Neutrophils % 81.2 H Seg Neuts % (Manual) 85.0 H Lymphocytes % (Manual) 12.0 L Monocytes % (Manual) Nucleated RBC % Seg Neutrophils # 12.9 H Seg Neutrophils # Man 13.5 H Lymphocytes # (Manual) Monocytes # (Manual) Eosinophils # (Manual) PT 51.8 H INR 5.63 H* ABG pH POC ABG pCO2 POC ABG pO2 ABG pO2 ABG Base Excess ABG Hemoglobin ABG Oxyhemoglobin ABG Potassium ABG Chloride ABG Glucose VBG pH Oxyhemoglobin Carboxyhemoglobin Sodium 150 H Potassium Chloride 117.6 H Carbon Dioxide 10 L BUN 50 H Creatinine 2.8 H Glucose 308 H POC Glucose Lactic Acid Calcium 6.8 L Phosphorus Magnesium Total Bilirubin 2.20 H Direct Bilirubin AST 1224 H ALT 484 H Alkaline Phosphatase Ammonia Total Creatine Kinase Total Protein 2.8 L D Albumin 1.6 L Lipase Arterial Blood Glucose Arterial Blood Ionized Calcium Urine WBC (Auto) U Epithel Cells (Auto) Acetaminophen Syphilis IgG Antibody HSV I Specific Ab Crossmatch 07/19/20 07/19/20 07/19/20 05:41 05:41 05:53 WBC RBC Hgb Hct MCV MCH MCHC RDW Plt Count Lymph % (Auto) [place] % (Auto) Lymph # (Auto) [place] # (Auto) Eos # (Auto) Seg Neutrophils % Seg Neuts % (Manual) Lymphocytes % (Manual) Monocytes % (Manual) Nucleated RBC % Seg Neutrophils # Seg Neutrophils # Man Lymphocytes # (Manual) Monocytes # (Manual) Eosinophils # (Manual) PT INR ABG pH POC ABG pCO2 POC ABG pO2 ABG pO2 ABG Base Excess ABG Hemoglobin ABG Oxyhemoglobin ABG Potassium ABG Chloride ABG Glucose VBG pH Oxyhemoglobin Carboxyhemoglobin Sodium Potassium Chloride Carbon Dioxide BUN Creatinine Glucose POC Glucose 186 H Lactic Acid 12.00 H* Calcium Phosphorus Magnesium Total Bilirubin Direct Bilirubin AST ALT Alkaline Phosphatase Ammonia 96.0 H Total Creatine Kinase Total Protein Albumin Lipase Arterial Blood Glucose Arterial Blood Ionized Calcium Urine WBC (Auto) U Epithel Cells (Auto) Acetaminophen Syphilis IgG Antibody HSV I Specific Ab Crossmatch 07/19/20 07/19/20 07/19/20 06:14 07:35 07:35 WBC RBC Hgb Hct MCV MCH MCHC RDW Plt Count Lymph % (Auto) [place] % (Auto) Lymph # (Auto) [place] # (Auto) Eos # (Auto) Seg Neutrophils % Seg Neuts % (Manual) Lymphocytes % (Manual) Monocytes % (Manual) Nucleated RBC % Seg Neutrophils # Seg Neutrophils # Man Lymphocytes # (Manual) Monocytes # (Manual) Eosinophils # (Manual) PT INR ABG pH 6.904 L POC ABG pCO2 50.8 H POC ABG pO2 140.1 H ABG pO2 ABG Base Excess ABG Hemoglobin 7.9 L ABG Oxyhemoglobin ABG Potassium ABG Chloride 120.0 H ABG Glucose 220 H VBG pH Oxyhemoglobin Carboxyhemoglobin 1.7 H Sodium Potassium Chloride Carbon Dioxide BUN Creatinine Glucose POC Glucose Lactic Acid 8.50 H* Calcium Phosphorus Magnesium Total Bilirubin Direct Bilirubin AST ALT Alkaline Phosphatase Ammonia Total Creatine Kinase Total Protein Albumin Lipase Arterial Blood Glucose 220 H Arterial Blood Ionized Calcium 4.1 L Urine WBC (Auto) U Epithel Cells (Auto) Acetaminophen Syphilis IgG Antibody HSV I Specific Ab Crossmatch See Detail 07/19/20 07/19/20 07/19/20 12:45 22:54 Unknown WBC 26.7 H RBC 2.68 L Hgb 9.0 L Hct 26.8 L D MCV 100 H MCH 34 H MCHC RDW 20.2 H Plt Count 104 L Lymph % (Auto) [place] % (Auto) Lymph # (Auto) [place] # (Auto) Eos # (Auto) Seg Neutrophils % Seg Neuts % (Manual) Lymphocytes % (Manual) 6.0 L Monocytes % (Manual) 8.0 H Nucleated RBC % Seg Neutrophils # Seg Neutrophils # Man 17.6 H Lymphocytes # (Manual) Monocytes # (Manual) 2.1 H Eosinophils # (Manual) PT INR ABG pH POC ABG pCO2 POC ABG pO2 ABG pO2 ABG Base Excess ABG Hemoglobin ABG Oxyhemoglobin ABG Potassium ABG Chloride ABG Glucose VBG pH Oxyhemoglobin Carboxyhemoglobin Sodium Potassium Chloride Carbon Dioxide BUN Creatinine Glucose POC Glucose 121 H Lactic Acid 6.20 H* Calcium Phosphorus Magnesium Total Bilirubin Direct Bilirubin AST ALT Alkaline Phosphatase Ammonia Total Creatine Kinase Total Protein Albumin Lipase Arterial Blood Glucose Arterial Blood Ionized Calcium Urine WBC (Auto) U Epithel Cells (Auto) Acetaminophen Syphilis IgG Antibody HSV I Specific Ab Crossmatch 07/19/20 07/19/20 07/19/20 Unknown Unknown Unknown WBC RBC Hgb Hct MCV MCH MCHC RDW Plt Count Lymph % (Auto) [place] % (Auto) Lymph # (Auto) [place] # (Auto) Eos # (Auto) Seg Neutrophils % Seg Neuts % (Manual) Lymphocytes % (Manual) Monocytes % (Manual) Nucleated RBC % Seg Neutrophils # Seg Neutrophils # Man Lymphocytes # (Manual) Monocytes # (Manual) Eosinophils # (Manual) PT 33.4 H INR 3.25 H ABG pH POC ABG pCO2 POC ABG pO2 ABG pO2 ABG Base Excess ABG Hemoglobin ABG Oxyhemoglobin ABG Potassium ABG Chloride ABG Glucose VBG pH Oxyhemoglobin Carboxyhemoglobin Sodium 148 H Potassium 2.6 L* D Chloride 117.3 H Carbon Dioxide 18 L D BUN 48 H Creatinine 2.4 H Glucose 207 H POC Glucose Lactic Acid 3.90 H* Calcium 6.5 L Phosphorus Magnesium Total Bilirubin 3.80 H Direct Bilirubin AST 1228 H ALT 516 H Alkaline Phosphatase Ammonia Total Creatine Kinase Total Protein 3.6 L D Albumin 1.9 L Lipase Arterial Blood Glucose Arterial Blood Ionized Calcium Urine WBC (Auto) U Epithel Cells (Auto) Acetaminophen Syphilis IgG Antibody HSV I Specific Ab Crossmatch 07/20/20 07/20/20 07/20/20 02:41 05:04 06:39 WBC RBC Hgb Hct MCV MCH MCHC RDW Plt Count Lymph % (Auto) [place] % (Auto) Lymph # (Auto) [place] # (Auto) Eos # (Auto) Seg Neutrophils % Seg Neuts % (Manual) Lymphocytes % (Manual) Monocytes % (Manual) Nucleated RBC % Seg Neutrophils # Seg Neutrophils # Man Lymphocytes # (Manual) Monocytes # (Manual) Eosinophils # (Manual) PT INR ABG pH POC ABG pCO2 POC ABG pO2 64.7 L ABG pO2 ABG Base Excess ABG Hemoglobin 8.8 L ABG Oxyhemoglobin 91.0 L ABG Potassium 2.6 L ABG Chloride 116.0 H ABG Glucose 143 H VBG pH Oxyhemoglobin Carboxyhemoglobin 2.0 H Sodium Potassium Chloride Carbon Dioxide BUN Creatinine Glucose POC Glucose 141 H 123 H Lactic Acid Calcium Phosphorus Magnesium Total Bilirubin Direct Bilirubin AST ALT Alkaline Phosphatase Ammonia Total Creatine Kinase Total Protein Albumin Lipase Arterial Blood Glucose 143 H Arterial Blood Ionized Calcium 3.9 L Urine WBC (Auto) U Epithel Cells (Auto) Acetaminophen Syphilis IgG Antibody HSV I Specific Ab Crossmatch 07/20/20 07/20/20 07/20/20 10:42 11:07 11:07 WBC 27.7 H RBC 2.50 L Hgb 8.4 L Hct 24.4 L MCV 98 H MCH 34 H MCHC 35 H RDW 19.8 H Plt Count 78 L Lymph % (Auto) [place] % (Auto) Lymph # (Auto) [place] # (Auto) Eos # (Auto) Seg Neutrophils % Seg Neuts % (Manual) Lymphocytes % (Manual) Monocytes % (Manual) Nucleated RBC % Seg Neutrophils # Seg Neutrophils # Man Lymphocytes # (Manual) Monocytes # (Manual) Eosinophils # (Manual) PT INR ABG pH POC ABG pCO2 POC ABG pO2 113.1 H ABG pO2 ABG Base Excess ABG Hemoglobin 8.8 L ABG Oxyhemoglobin ABG Potassium 2.9 L ABG Chloride 114.0 H ABG Glucose 135 H VBG pH Oxyhemoglobin Carboxyhemoglobin 1.9 H Sodium 147 H Potassium Chloride 114.2 H Carbon Dioxide BUN 52 H Creatinine 1.8 H Glucose 143 H POC Glucose Lactic Acid Calcium 6.5 L Phosphorus Magnesium Total Bilirubin Direct Bilirubin AST ALT Alkaline Phosphatase Ammonia Total Creatine Kinase Total Protein Albumin Lipase Arterial Blood Glucose 135 H Arterial Blood Ionized Calcium 3.8 L Urine WBC (Auto) U Epithel Cells (Auto) Acetaminophen Syphilis IgG Antibody HSV I Specific Ab Crossmatch 07/20/20 07/21/20 07/21/20 15:05 00:03 02:07 WBC RBC Hgb Hct MCV MCH MCHC RDW Plt Count Lymph % (Auto) [place] % (Auto) Lymph # (Auto) [place] # (Auto) Eos # (Auto) Seg Neutrophils % Seg Neuts % (Manual) Lymphocytes % (Manual) Monocytes % (Manual) Nucleated RBC % Seg Neutrophils # Seg Neutrophils # Man Lymphocytes # (Manual) Monocytes # (Manual) Eosinophils # (Manual) PT INR ABG pH POC ABG pCO2 POC ABG pO2 ABG pO2 ABG Base Excess ABG Hemoglobin ABG Oxyhemoglobin ABG Potassium ABG Chloride ABG Glucose VBG pH Oxyhemoglobin Carboxyhemoglobin Sodium 146 H Potassium 2.8 L* 3.1 L Chloride 112.1 H Carbon Dioxide BUN 54 H Creatinine 1.9 H Glucose 107 H POC Glucose 145 H Lactic Acid Calcium 6.8 L Phosphorus Magnesium 0.90 L* Total Bilirubin Direct Bilirubin AST ALT Alkaline Phosphatase Ammonia Total Creatine Kinase Total Protein Albumin Lipase Arterial Blood Glucose Arterial Blood Ionized Calcium Urine WBC (Auto) U Epithel Cells (Auto) Acetaminophen Syphilis IgG Antibody HSV I Specific Ab Crossmatch 07/21/20 07/21/20 07/21/20 03:42 05:21 10:59 WBC RBC Hgb Hct MCV MCH MCHC RDW Plt Count Lymph % (Auto) [place] % (Auto) Lymph # (Auto) [place] # (Auto) Eos # (Auto) Seg Neutrophils % Seg Neuts % (Manual) Lymphocytes % (Manual) Monocytes % (Manual) Nucleated RBC % Seg Neutrophils # Seg Neutrophils # Man Lymphocytes # (Manual) Monocytes # (Manual) Eosinophils # (Manual) PT INR ABG pH POC ABG pCO2 POC ABG pO2 ABG pO2 98.2 H ABG Base Excess -3.8 L ABG Hemoglobin 8.7 L ABG Oxyhemoglobin ABG Potassium ABG Chloride ABG Glucose VBG pH Oxyhemoglobin 94.6 L Carboxyhemoglobin Sodium Potassium Chloride Carbon Dioxide BUN Creatinine Glucose POC Glucose 150 H 161 H Lactic Acid Calcium Phosphorus Magnesium Total Bilirubin Direct Bilirubin AST ALT Alkaline Phosphatase Ammonia Total Creatine Kinase Total Protein Albumin Lipase Arterial Blood Glucose Arterial Blood Ionized Calcium Urine WBC (Auto) U Epithel Cells (Auto) Acetaminophen Syphilis IgG Antibody HSV I Specific Ab Crossmatch 07/21/20 07/21/20 07/21/20 13:59 16:14 17:22 WBC RBC Hgb Hct MCV MCH MCHC RDW Plt Count Lymph % (Auto) [place] % (Auto) Lymph # (Auto) [place] # (Auto) Eos # (Auto) Seg Neutrophils % Seg Neuts % (Manual) Lymphocytes % (Manual) Monocytes % (Manual) Nucleated RBC % Seg Neutrophils # Seg Neutrophils # Man Lymphocytes # (Manual) Monocytes # (Manual) Eosinophils # (Manual) PT INR ABG pH POC ABG pCO2 POC ABG pO2 ABG pO2 ABG Base Excess ABG Hemoglobin ABG Oxyhemoglobin ABG Potassium ABG Chloride ABG Glucose VBG pH Oxyhemoglobin Carboxyhemoglobin Sodium Potassium 3.0 L Chloride 112.5 H Carbon Dioxide 16 L D BUN 48 H Creatinine Glucose 157 H POC Glucose 164 H 171 H Lactic Acid Calcium 7.3 L Phosphorus Magnesium Total Bilirubin Direct Bilirubin AST ALT Alkaline Phosphatase Ammonia Total Creatine Kinase Total Protein Albumin Lipase Arterial Blood Glucose Arterial Blood Ionized Calcium Urine WBC (Auto) U Epithel Cells (Auto) Acetaminophen Syphilis IgG Antibody HSV I Specific Ab Crossmatch 07/21/20 07/22/20 07/22/20 20:06 04:25 07:57 WBC 28.9 H RBC 2.35 L Hgb 8.0 L Hct 22.2 L MCV MCH 34 H MCHC 36 H RDW 20.5 H Plt Count 41 L Lymph % (Auto) [place] % (Auto) Lymph # (Auto) [place] # (Auto) Eos # (Auto) Seg Neutrophils % Seg Neuts % (Manual) 83.0 H Lymphocytes % (Manual) 6.0 L Monocytes % (Manual) Nucleated RBC % 2.0 H Seg Neutrophils # Seg Neutrophils # Man 24.0 H Lymphocytes # (Manual) Monocytes # (Manual) 1.4 H Eosinophils # (Manual) 0.6 H PT INR ABG pH 7.500 H POC ABG pCO2 POC ABG pO2 ABG pO2 104.9 H ABG Base Excess ABG Hemoglobin 8.6 L ABG Oxyhemoglobin ABG Potassium ABG Chloride ABG Glucose VBG pH Oxyhemoglobin Carboxyhemoglobin Sodium Potassium Chloride Carbon Dioxide BUN Creatinine Glucose POC Glucose 128 H Lactic Acid Calcium Phosphorus Magnesium Total Bilirubin Direct Bilirubin AST ALT Alkaline Phosphatase Ammonia Total Creatine Kinase Total Protein Albumin Lipase Arterial Blood Glucose Arterial Blood Ionized Calcium Urine WBC (Auto) U Epithel Cells (Auto) Acetaminophen Syphilis IgG Antibody HSV I Specific Ab Crossmatch 07/22/20 07/22/20 07/22/20 07:57 07:57 12:08 WBC RBC Hgb Hct MCV MCH MCHC RDW Plt Count Lymph % (Auto) [place] % (Auto) Lymph # (Auto) [place] # (Auto) Eos # (Auto) Seg Neutrophils % Seg Neuts % (Manual) Lymphocytes % (Manual) Monocytes % (Manual) Nucleated RBC % Seg Neutrophils # Seg Neutrophils # Man Lymphocytes # (Manual) Monocytes # (Manual) Eosinophils # (Manual) PT 21.6 H INR 1.87 H ABG pH POC ABG pCO2 POC ABG pO2 ABG pO2 ABG Base Excess ABG Hemoglobin ABG Oxyhemoglobin ABG Potassium ABG Chloride ABG Glucose VBG pH Oxyhemoglobin Carboxyhemoglobin Sodium 147 H D Potassium 2.6 L* Chloride 112.7 H Carbon Dioxide BUN 51 H Creatinine Glucose 104 H POC Glucose Lactic Acid Calcium 7.8 L Phosphorus 1.10 L Magnesium 1.50 L Total Bilirubin 9.80 H 11.10 H Direct Bilirubin 8.8 H AST 234 H 231 H ALT 297 H 286 H Alkaline Phosphatase 296 H 323 H Ammonia Total Creatine Kinase Total Protein 4.1 L 3.6 L Albumin 1.8 L 2.0 L Lipase Arterial Blood Glucose Arterial Blood Ionized Calcium Urine WBC (Auto) U Epithel Cells (Auto) Acetaminophen Syphilis IgG Antibody HSV I Specific Ab Crossmatch Chest x-ray: report reviewed, image reviewed (bilateral infiltrates)
--- NOTE | 2020-07-22 21:46 | Progress Note ---
Assessment and Plan - Patient Problems (1) Severe sepsis with septic shock Current Visit: Yes Status: Acute Plan to address problem: Sepsis protocol, IV pressor support, IV antibiotic therapy, IV fluid resuscitation therapy, maintain mean arterial pressure greater than or equal to 65, monitor urine output every shift, serial lactic acid level The high probability of a clinically significant, sudden or life threatening deterioration of the [neuro, cardiac, renal, pulmonary] system(s) required my full and direct attention, intervention and personal management. The aggregate critical care time was [90] minutes. This time is in addition to time spent performing reported procedures but includes the following: [x] Data Review and interpretation [x] Patient assessment and monitoring of vital signs [x] Documentation [x] Medication orders and management (2) Acute respiratory failure Current Visit: Yes Status: Acute Qualifiers: Respiratory failure complication: hypoxia Qualified Code(s): J96.01 - Acute respiratory failure with hypoxia Plan to address problem: Patient intubated and placed on ventilatory support overnight. Wean vent as tolerated, pulmonary team consulted, spontaneous breathing trial daily, sedation holiday, supportive care. (3) Acute liver failure Current Visit: Yes Status: Acute Plan to address problem: Supportive care, GI team consulted. Pt has poor prognosis, and currently unstable for transfer. (4) Metabolic acidosis Current Visit: Yes Status: Acute Plan to address problem: BMP, IV bicarbonate therapy, repeat BMP (5) UTI (urinary tract infection) Current Visit: Yes Status: Acute Qualifiers: Encounter type: initial encounter Plan to address problem: IV antibiotic therapy, supportive care. (6) DVT prophylaxis Current Visit: Yes Status: Acute Plan to address problem: SCD to bilateral lower extremities while in bed (7) Acute kidney injury (RINA) with acute tubular necrosis (ATN) Current Visit: Yes Status: Acute Plan to address problem: Nephrology team consulted, IV fluid resuscitation therapy, monitor urine output every shift, monitor fluid balance, supportive care. (8) Cardiac arrest Current Visit: Yes Status: Acute Plan to address problem: Patient experienced cardiac arrest overnight. Patient treated with ACLS protocol with eventual return of perfusing cardiac rhythm. Patient has poor prognosis. (9) Toxic metabolic encephalopathy Current Visit: Yes Status: Acute Plan to address problem: CT scan head, when medically stable, supportive care, continue medical management. Suspect anoxic brain injury. (10) Advance care planning Current Visit: Yes Status: Acute Plan to address problem: Disease education conducted, patient is full code, patient prognosis discussed with patient mother Tete Gao as well as the patient's grandmother., patient family informed the patient shows no sign of brain function and is on multiple medications to maintain her current status. Patient family informed that patient has experienced nonsurvivable physiologic insult. Patient family acknowledges prognosis. Awaiting decision on withdrawal of care. Patient family informed of care plan. +30 minutes. 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 Patient is critically ill and has very poor prognosis. Patient experienced cardiac and suspected Anoxic Brain Injury. Patient currently intubated and on ventilatory support. Patient has poor prognosis. No significant overnight improvement. Hospitalist Physical - Constitutional Vitals: Temp Pulse Resp BP Pulse Ox 100.9 F H 134 H 18 103/44 93 07/22/20 20:00 07/22/20 21:00 07/22/20 21:00 07/22/20 21:00 07/22/20 21:00 General appearance: Present: severe distress, other (Lethargic not quite encephalopathic alert appears to be tired. Patient states she is just fatigued.) - EENT Eyes: Present: mydriasis ENT: hearing decreased - Neck Neck: Present: supple - Respiratory Respiratory effort: labored Respiratory: bilateral: diminished, rhonchi - Cardiovascular Rhythm: regular - Extremities Extremity abnormal: edema - Abdominal General gastrointestinal: soft, non-tender, distended - Integumentary Integumentary: Present: clear, dry - Psychiatric Psychiatric: no appropriate mood/affect, no intact judgment & insight, no memory intact - Neurologic Neurologic: no CNII-XII intact, focal deficits, no moves all extremities, no gait normal HEART Score - HEART Score Troponin: Troponin T < 0.010 ng/mL (0.00-0.029) 07/16/20 20:47 Results - Labs CBC & Chem 7: 07/23/20 07:39 07/23/20 07:39 Labs: Laboratory Last Values WBC 28.9 K/mm3 (4.5-11.0) H 07/22/20 07:57 RBC 2.35 M/mm3 (3.65-5.03) L 07/22/20 07:57 Hgb 8.0 gm/dl (10.1-14.3) L 07/22/20 07:57 Hct 22.2 % (30.3-42.9) L 07/22/20 07:57 MCV 94 fl (79-97) 07/22/20 07:57 MCH 34 pg (28-32) H 07/22/20 07:57 MCHC 36 % (30-34) H 07/22/20 07:57 RDW 20.5 % (13.2-15.2) H 07/22/20 07:57 Plt Count 41 K/mm3 (140-440) L 07/22/20 07:57 Lymph % (Auto) 9.7 % (13.4-35.0) L 07/19/20 05:41 [place] % (Auto) 8.3 % (0.0-7.3) H 07/19/20 05:41 Eos % (Auto) 0.8 % (0.0-4.3) 07/19/20 05:41 Baso % (Auto) 0.0 % (0.0-1.8) 07/19/20 05:41 Lymph # (Auto) 1.5 K/mm3 (1.2-5.4) 07/19/20 05:41 [place] # (Auto) 1.3 K/mm3 (0.0-0.8) H 07/19/20 05:41 Eos # (Auto) 0.1 K/mm3 (0.0-0.4) 07/19/20 05:41 Baso # (Auto) 0.0 K/mm3 (0.0-0.1) 07/19/20 05:41 Add Manual Diff Complete 07/22/20 07:57 Total Counted 100 07/22/20 07:57 Seg Neutrophils % 81.2 % (40.0-70.0) H 07/19/20 05:41 Seg Neuts % (Manual) 83.0 % (40.0-70.0) H 07/22/20 07:57 Band Neutrophils % 3.0 % 07/22/20 07:57 Lymphocytes % (Manual) 6.0 % (13.4-35.0) L 07/22/20 07:57 Monocytes % (Manual) 5.0 % (0.0-7.3) 07/22/20 07:57 Eosinophils % (Manual) 2.0 % (0.0-4.3) 07/22/20 07:57 Metamyelocytes % 1.0 % 07/22/20 07:57 Myelocytes % 1.0 % 07/19/20 05:41 Nucleated RBC % 2.0 % (0.0-0.9) H 07/22/20 07:57 Seg Neutrophils # 12.9 K/mm3 (1.8-7.7) H 07/19/20 05:41 Seg Neutrophils # Man 24.0 K/mm3 (1.8-7.7) H 07/22/20 07:57 Band Neutrophils # 0.9 K/mm3 07/22/20 07:57 Lymphocytes # (Manual) 1.7 K/mm3 (1.2-5.4) 07/22/20 07:57 Abs React Lymphs (Man) 0.0 K/mm3 07/22/20 07:57 Monocytes # (Manual) 1.4 K/mm3 (0.0-0.8) H 07/22/20 07:57 Eosinophils # (Manual) 0.6 K/mm3 (0.0-0.4) H 07/22/20 07:57 Basophils # (Manual) 0.0 K/mm3 (0.0-0.1) 07/22/20 07:57 Metamyelocytes # 0.3 K/mm3 07/22/20 07:57 Myelocytes # 0.0 K/mm3 07/22/20 07:57 Promyelocytes # 0.0 K/mm3 07/22/20 07:57 Blast Cells # 0.0 K/mm3 07/22/20 07:57 Pathologist Review 07/16/20 20:47 WBC Morphology Not Reportable 07/22/20 07:57 Hypersegmented Neuts Not Reportable 07/22/20 07:57 Hyposegmented Neuts Not Reportable 07/22/20 07:57 Hypogranular Neuts Not Reportable 07/22/20 07:57 Smudge Cells Not Reportable 07/22/20 07:57 Toxic Granulation Not Reportable 07/22/20 07:57 Toxic Vacuolation Not Reportable 07/22/20 07:57 Dohle Bodies Not Reportable 07/22/20 07:57 [place]-Huet Anomaly Not Reportable 07/22/20 07:57 Fede Rods Not Reportable 07/22/20 07:57 Platelet Estimate Consistent w auto 07/22/20 07:57 Clumped Platelets Not Reportable 07/22/20 07:57 Plt Clumps, EDTA Not Reportable 07/22/20 07:57 Large Platelets Few 07/22/20 07:57 Giant Platelets Not Reportable 07/22/20 07:57 Platelet Satelliting Not Reportable 07/22/20 07:57 Plt Morphology Comment Not Reportable 07/22/20 07:57 RBC Morphology Not Reportable 07/22/20 07:57 Dimorphic RBCs Not Reportable 07/22/20 07:57 Polychromasia Not Reportable 07/22/20 07:57 Hypochromasia Not Reportable 07/22/20 07:57 Poikilocytosis 2+ 07/22/20 07:57 Anisocytosis 1+ 07/22/20 07:57 Microcytosis Not Reportable 07/22/20 07:57 Macrocytosis Not Reportable 07/22/20 07:57 Spherocytes Not Reportable 07/22/20 07:57 Pappenheimer Bodies Not Reportable 07/22/20 07:57 Sickle Cells Not Reportable 07/22/20 07:57 Target Cells 2+ 07/22/20 07:57 Tear Drop Cells Not Reportable 07/22/20 07:57 Ovalocytes Not Reportable 07/22/20 07:57 Helmet Cells Not Reportable 07/22/20 07:57 [place] Bodies Not Reportable 07/22/20 07:57 [place] Rings Not Reportable 07/22/20 07:57 [place] Cells Not Reportable 07/22/20 07:57 Bite Cells Not Reportable 07/22/20 07:57 Crenated Cell Not Reportable 07/22/20 07:57 Elliptocytes Not Reportable 07/22/20 07:57 Acanthocytes (Spur) Not Reportable 07/22/20 07:57 Rouleaux Not Reportable 07/22/20 07:57 Hemoglobin C Crystals Not Reportable 07/22/20 07:57 Schistocytes Not Reportable 07/22/20 07:57 Malaria parasites Not Reportable 07/22/20 07:57 Richard Bodies Not Reportable 07/22/20 07:57 Hem Pathologist Commnt No 07/22/20 07:57 PT 21.6 Sec. (12.2-14.9) H 07/22/20 07:57 INR 1.87 (0.87-1.13) H 07/22/20 07:57 ABG pH 7.500 pH Units (7.350-7.450) H 07/22/20 04:25 POC ABG pCO2 32.5 mmHg (32.0-48.0) 07/20/20 10:42 ABG pCO2 31.2 mm Hg 07/22/20 04:25 POC ABG pO2 113.1 mmHg (83-108) H 07/20/20 10:42 ABG pO2 104.9 mm Hg (80.0-90.0) H 07/22/20 04:25 POC ABG HCO3 22.0 07/20/20 10:42 ABG HCO3 23.7 mmol/L (20.0-26.0) 07/22/20 04:25 ABG O2 Saturation 98.1 % (95.0-99.0) 07/22/20 04:25 ABG O2 Content 11.7 (0.0-44) 07/22/20 04:25 POC ABG Base Excess -1.6 07/20/20 10:42 ABG Base Excess 0.8 mmol/L (-2.0-3.0) 07/22/20 04:25 ABG Hemoglobin 8.6 gm/dl (12.0-16.0) L 07/22/20 04:25 ABG Oxyhemoglobin 96.3 (94-98) 07/20/20 10:42 ABG Carboxyhemoglobin 2.3 % (0.0-5.0) 07/22/20 04:25 ABG Methemoglobin 0.5 % (0.0-1.5) 07/22/20 04:25 ABG Sodium 140.2 mmol/L (136.0-145.0) 07/20/20 10:42 ABG Potassium 2.9 mmol/L (3.40-4.50) L 07/20/20 10:42 ABG Chloride 114.0 mmol/L (98-107) H 07/20/20 10:42 ABG Glucose 135 mg/dL (65-95) H 07/20/20 10:42 VBG pH 7.085 (7.320-7.420) L* 07/17/20 01:46 Oxyhemoglobin 95.4 % (95.0-99.0) 07/22/20 04:25 Carboxyhemoglobin 1.9 (0.5-1.5) H 07/20/20 10:42 FiO2 40 % 07/22/20 04:25 Sodium 147 mmol/L (137-145) H D 07/22/20 07:57 Potassium 2.6 mmol/L (3.6-5.0) L* 07/22/20 07:57 Chloride 112.7 mmol/L (98-107) H 07/22/20 07:57 Carbon Dioxide 26 mmol/L (22-30) D 07/22/20 07:57 Anion Gap 11 mmol/L 07/22/20 07:57 BUN 51 mg/dL (7-17) H 07/22/20 07:57 Creatinine 1.0 mg/dL (0.6-1.2) 07/22/20 07:57 Estimated GFR > 60 ml/min 07/22/20 07:57 BUN/Creatinine Ratio 51 % 07/22/20 07:57 Glucose 104 mg/dL (65-100) H 07/22/20 07:57 POC Glucose 76 mg/dL (70-105) 07/22/20 21:31 Lactic Acid 3.90 mmol/L (0.7-2.0) H* 07/19/20 Unknown Calcium 7.8 mg/dL (8.4-10.2) L 07/22/20 07:57 Phosphorus 1.10 mg/dL (2.5-4.5) L 07/22/20 07:57 Magnesium 1.50 mg/dL (1.7-2.3) L 07/22/20 07:57 Total Bilirubin 11.10 mg/dL (0.1-1.2) H 07/22/20 12:08 Direct Bilirubin 8.8 mg/dL (0-0.2) H 07/22/20 12:08 Indirect Bilirubin 2.3 mg/dL 07/22/20 12:08 AST 231 units/L (5-40) H 07/22/20 12:08 ALT 286 units/L (7-56) H 07/22/20 12:08 Alkaline Phosphatase 323 units/L (35-129) H 07/22/20 12:08 Ammonia 96.0 umol/L (25-60) H 07/19/20 05:41 Total Creatine Kinase 332 units/L (30-135) H 07/17/20 09:23 Troponin T < 0.010 ng/mL (0.00-0.029) 07/16/20 20:47 Total Protein 3.6 g/dL (6.3-8.2) L 07/22/20 12:08 Albumin 2.0 g/dL (3.9-5) L 07/22/20 12:08 Albumin/Globulin Ratio 1.3 % 07/22/20 12:08 Lipase 14 units/L (13-60) 07/17/20 01:46 TSH 0.354 mlU/mL (0.270-4.200) 07/16/20 20:47 HCG, Qual Negative (Negative) 07/19/20 07:35 Arterial Blood Glucose 135 mg/dL (65-95) H 07/20/20 10:42 Arterial Blood Ionized Calcium 3.8 mg/dL (4.6-5.3) L 07/20/20 10:42 Urine Color Red (Yellow) 07/16/20 03:54 Urine Turbidity Turbid (Clear) 07/16/20 03:54 Urine pH 5.0 (5.0-7.0) 07/16/20 03:54 Ur Specific [place] 1.013 (1.003-1.030) 07/16/20 03:54 Urine Protein >500 mg/dL (Negative) 07/16/20 03:54 Urine Glucose (UA) Neg mg/dL (Negative) 07/16/20 03:54 Urine Ketones Tr mg/dL (Negative) 07/16/20 03:54 Urine Blood Lg (Negative) 07/16/20 03:54 Urine Nitrite Neg (Negative) 07/16/20 03:54 Urine Bilirubin Neg (Negative) 07/16/20 03:54 Urine Urobilinogen < 2.0 mg/dL (<2.0) 07/16/20 03:54 Ur Leukocyte Esterase Sm (Negative) 07/16/20 03:54 Urine WBC (Auto) 57.0 /HPF (0.0-6.0) H 07/16/20 03:54 Urine RBC (Auto) 35.0 /HPF (0.0-6.0) 07/16/20 03:54 U Epithel Cells (Auto) 23.0 /HPF (0-13.0) H 07/16/20 03:54 Urine Bacteria (Auto) 1+ /HPF (Negative) 07/16/20 03:54 Urine WBC Clumps 3+ /HPF 07/16/20 03:54 Urine Mucus Few /HPF 07/16/20 03:54 Acetaminophen 5.0 ug/mL (10.0-30.0) L 07/17/20 09:23 Syphilis IgG Antibody Reactive (NonReactive) A 07/17/20 11:08 RPR Titer Nr 07/17/20 11:08 T.pallidum Ab (FTA-ABS) Nonreactive (Nonreactive) 07/17/20 11:08 C.trachomatis DNA (SDA) Not detected (Not Detected) 07/17/20 02:25 Hepatitis A IgM Ab Non-reactive (NonReactive) 07/17/20 11:08 Hep Bs Antigen Non-reactive (Negative) 07/17/20 11:08 Hep B Core IgM Ab Non-reactive (NonReactive) 07/17/20 11:08 Hepatitis C Antibody Non-reactive (NonReactive) 07/17/20 11:08 HSV I Specific Ab 5.23 Index (<0.90) H 07/17/20 11:08 HIV 1&2 Antibody Rapid Non react (Non React) 07/17/20 11:08 HIV P24 Antigen Non react (Non React) 07/17/20 11:08 N.gonorrhoeae DNA (SDA) Not detected (Not Detected) 07/17/20 02:25 Blood Type O POSITIVE 07/19/20 07:35 Antibody Screen Negative 07/19/20 07:35 Crossmatch See Detail 07/19/20 07:35 Microbiology: Microbiology 07/16/20 23:00 Peripheral/Venous Blood Culture - Final NO GROWTH AFTER 5 DAYS 07/16/20 23:06 Peripheral/Venous Blood Culture - Final NO GROWTH AFTER 5 DAYS [place]/IV: Voiding Method Indwelling Catheter IV Catheter Type [Right Triple Lumen Cath Femoral] IV Catheter Type [Right Hand] Peripheral IV IV Catheter Type [Left Hand] INT / Saline Lock IV Catheter Type [Acetadote ( Peripheral IV Acetylcysteine IV) 7,500 mg In D5w 1,000 ml @ 62.5 mls/hr IV ONCE ONE Rx#:[id number]] IV Catheter Type [Sodium Triple Lumen Cath Bicarbonate 50 Meq In NaCl 0.9 % 1000 ml 1,000 ml @ 100 mls/ hr IV DIRECT ESTELA Rx#: [id number]] Active Medications - Current Medications Current Medications: Generic Name Dose Route Start Last Admin Trade Name Freq PRN Reason Stop Dose Admin Acyclovir 370 mg/ Sodium 107.4 mls @ 100 mls/hr 07/17/20 12:00 07/22/20 09:27 Chloride IV 100 mls/hr Q12HR ESTELA Administration Protocol Ceftriaxone Sodium 1 gm in 50 mls @ 100 mls/hr 07/17/20 12:00 07/22/20 09:28 Rocephin/Ns 1 Gm/50 Ml IV 100 mls/hr Q24HR ESTELA Administration Protocol Thiamine HCl 100 mg/ Sodium 51 mls @ 100 mls/hr 07/18/20 10:00 07/22/20 09:28 Chloride IV 100 mls/hr QDAY ESTELA Administration Folic Acid 1 mg/ Sodium 50.2 mls @ 200.8 mls/hr 07/18/20 10:00 07/22/20 09:28 Chloride IV 200.8 mls/hr QDAY ESTELA Administration Pantoprazole Sodium 80 mg/ 100 mls @ 10 mls/hr 07/19/20 06:00 07/19/20 06:02 Sodium Chloride IV 8 mg/hr DIRECT ESTELA 10 mls/hr Administration 8 MG/HR Dopamine HCl/Dextrose 800 mg in 250 mls @ 2.807 mls/hr 07/19/20 05:45 07/19/20 05:55 Intropin Drip 800 Mg/D5w 250 Ml IV 20 mcg/kg/min TITR ESTELA 28.066 mls/hr Administration Protocol 2 MCG/KG/MIN Vasopressin 20 unit/ Sodium 101 mls @ 9.09 mls/hr 07/19/20 10:00 07/22/20 12:37 Chloride IV 0.03 units/min TITR ESTELA 9.09 mls/hr Administration Protocol 0.03 UNITS/MIN Norepinephrine 8 mg/ Sodium 250 mls @ 3.75 mls/hr 07/19/20 21:00 07/22/20 18:26 Chloride IV 24 mcg/min TITR ESTELA 45 mls/hr Administration Protocol 2 MCG/MIN Phenylephrine HCl 100 mg/ 100 mls @ 3 mls/hr 07/22/20 19:45 Sodium Chloride IV TITR ESTELA Protocol 50 MCG/MIN Magnesium Hydroxide 30 ml 07/17/20 03:56 Magnesium Hydroxide (Mom) Oral Liqd Udc PO Q4H PRN Constipation Ondansetron HCl 4 mg 07/17/20 03:56 07/18/20 20:00 Ondansetron 4 Mg/2 Ml Inj IV 4 mg Q8H PRN Administration Nausea And Vomiting Sodium Chloride 10 ml 07/17/20 10:00 07/22/20 10:28 Sodium Chloride 0.9% 10 Ml Flush Syringe IV 10 ml BID ESTELA Administration Sodium Chloride 10 ml 07/17/20 03:56 Sodium Chloride 0.9% 10 Ml Flush Syringe IV PRN PRN LINE FLUSH
[2020-07-22 23:55] LABS: ANA Screen, IFA Negative (Negative)
[2020-07-23] MEDS ORDERED: ACETAMINOPHEN 325 MG/10.15 ML ORAL LIQD UNIT DOSE FEEDTUBE PRN (00:37)
[2020-07-23] MEDS ORDERED: VANCOMYCIN PHARMACY TO DOSE IV SCH ×2 (01:00→14:00)
[2020-07-23] MEDS ORDERED: VANCOMYCIN 1,500 MG in SODIUM CHLORIDE 0.9% 500 ML 500 ML IV ONE (02:00)
[2020-07-23] MEDS ORDERED: DEXTROSE 50% IN WATER (25GM) 50 ML SYRINGE IV ONE (02:45)
--- NOTE | 2020-07-23 06:04 | XRay Report ---
CHEST 1 VIEW 0454 INDICATION / CLINICAL INFORMATION: Acute respiratory failure COMPARISON: 07/21/2020 FINDINGS: SUPPORT DEVICES: Stable HEART / MEDIASTINUM: Stable LUNGS / PLEURA: Patient is strongly rotated and poor degree of inspiration is seen. Considering this however there appears to be an increase in congestive changes and bilateral pulmonary edema/infiltrat es. Small right pleural effusion is seen. No pneumothorax. ADDITIONAL FINDINGS: No significant additional findings. Signer Name: Christopher Delgado MD Signed: 07/23/2020 5:59 AM Workstation Name: [id number]
[2020-07-23] MEDS: NORepinephrine 8 MG in SODIUM CHLORIDE 0.9% 250ML 242 ML IV SCH ×3 (07:42→16:46)
[2020-07-23] MEDS ORDERED: DEXTROSE 50% IN WATER (25GM) 50 ML SYRINGE IV NR (07:43)
[2020-07-23 08:02] LABS: Hematocrit 22.5 % (30.3-42.9); Hemoglobin 7.8 gm/dl (10.1-14.3); Mean Corpuscular HGB Conc 35 % (30-34); Mean Corpuscular Volume 98 fl (79-97)
[2020-07-23 08:11] LABS: Platelet Count 55 K/mm3 (140-440); Red Cell Distribution Width 21.3 % (13.2-15.2)
[2020-07-23 08:19] LABS: Albumin 1.8 g/dL (3.9-5); Calcium 7.7 mg/dL (8.4-10.2)
[2020-07-23] MEDS ORDERED: LIPASE 10,500/PROTEASE 25,000/AMYLASE 43,750 (UNITS) DR CAP FEEDTUBE PRN (08:37)
[2020-07-23] MEDS ORDERED: SIMPLE SYRUP 15 ML FEEDTUBE PRN ×2 (08:37)
[2020-07-23] MEDS ORDERED: SODIUM BICARBONATE 325 MG TAB FEEDTUBE PRN (08:37)
[2020-07-23 08:58] LABS: Band Neutrophils # (Manual) 2.6 K/mm3; Total Cells Counted 100
[2020-07-23 09:00] LABS: Anisocytosis 1+; Ovalocytes 1+; Poikilocytosis 2+
[2020-07-23 09:01] LABS: Target Cells 2+
--- NOTE | 2020-07-23 10:11 | Progress Note ---
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 Acidosis Acute Liver Failure N/V UTI Syphilis Plan: -Cr slightly up, Monitor -Na 148, would like to keep it higher in the setting of cerebral edema and avoid hyponatremia -Replace lytes -Albumin q6H X 3 doses ordered -Making urine. -Sepsis-On multiple IV antibiotics -Monitor I/O's daily -Avoid nephrotoxic agents -Monitor renal function closely Subjective Date of service: 07/23/20 Principal diagnosis: Acute Liver Injury Interval history: Intubated on Vent. Objective - Exam Narrative Exam: General appearance: sedated on ventilator, intubated Respiratory: Present: Decreased Breath Sounds Cardiology: tachycardia Psychiatric: other (itnubated) - Vital Signs Vital signs: Vital Signs - 12hr 07/22/20 07/22/20 07/22/20 22:11 22:21 22:30 Temperature Pulse Rate 134 H 134 H 134 H Pulse Rate [ From Monitor] Respiratory 18 18 18 Rate Blood Pressure 108/46 111/45 103/45 O2 Sat by Pulse 92 91 92 Oximetry 07/22/20 07/22/20 07/22/20 22:31 22:41 22:50 Temperature Pulse Rate 134 H 135 H 135 H Pulse Rate [ From Monitor] Respiratory 18 18 18 Rate Blood Pressure 108/43 108/43 105/42 O2 Sat by Pulse 91 91 91 Oximetry 07/22/20 07/22/20 07/22/20 23:00 23:11 23:21 Temperature Pulse Rate 134 H 137 H 137 H Pulse Rate [ From Monitor] Respiratory 18 18 18 Rate Blood Pressure 105/42 94/40 107/44 O2 Sat by Pulse 94 95 94 Oximetry 07/22/20 07/22/20 07/22/20 23:30 23:41 23:51 Temperature Pulse Rate 138 H 139 H 139 H Pulse Rate [ From Monitor] Respiratory 18 18 18 Rate Blood Pressure 98/41 98/41 103/38 O2 Sat by Pulse 94 94 94 Oximetry 07/23/20 07/23/20 07/23/20 00:00 00:01 00:11 Temperature 103 F H Pulse Rate 141 H 141 H 141 H Pulse Rate [ 131 H From Monitor] Respiratory 18 18 18 Rate Blood Pressure 102/37 102/37 O2 Sat by Pulse 90 94 94 Oximetry 07/23/20 07/23/20 07/23/20 00:21 00:26 00:31 Temperature Pulse Rate 140 H 139 H 141 H Pulse Rate [ From Monitor] Respiratory 18 18 Rate Blood Pressure 102/38 98/44 101/37 O2 Sat by Pulse 94 94 94 Oximetry 07/23/20 07/23/20 07/23/20 00:41 00:51 01:00 Temperature Pulse Rate 140 H 141 H 140 H Pulse Rate [ From Monitor] Respiratory 18 18 18 Rate Blood Pressure 101/37 100/40 102/42 O2 Sat by Pulse 94 94 93 Oximetry 07/23/20 07/23/20 07/23/20 01:11 01:21 01:31 Temperature Pulse Rate 138 H 137 H 137 H Pulse Rate [ From Monitor] Respiratory 18 18 18 Rate Blood Pressure 102/42 105/42 105/39 O2 Sat by Pulse 93 93 92 Oximetry 07/23/20 07/23/20 07/23/20 01:41 01:51 02:00 Temperature Pulse Rate 137 H 136 H 138 H Pulse Rate [ From Monitor] Respiratory 18 18 18 Rate Blood Pressure 105/39 102/40 103/42 O2 Sat by Pulse 92 92 92 Oximetry 07/23/20 07/23/20 07/23/20 02:11 02:21 02:30 Temperature Pulse Rate 136 H 136 H 141 H Pulse Rate [ From Monitor] Respiratory 18 18 18 Rate Blood Pressure 103/42 104/39 113/46 O2 Sat by Pulse 92 92 94 Oximetry 07/23/20 07/23/20 07/23/20 02:41 02:51 03:00 Temperature Pulse Rate 138 H 136 H 137 H Pulse Rate [ From Monitor] Respiratory 18 18 18 Rate Blood Pressure 113/46 111/44 111/44 O2 Sat by Pulse 91 90 91 Oximetry 07/23/20 07/23/20 07/23/20 03:11 03:21 03:31 Temperature Pulse Rate 136 H 134 H 130 H Pulse Rate [ From Monitor] Respiratory 18 18 18 Rate Blood Pressure 106/38 111/44 111/44 O2 Sat by Pulse 91 92 92 Oximetry 07/23/20 07/23/20 07/23/20 03:41 03:51 04:00 Temperature 101.9 F H Pulse Rate 134 H 133 H 133 H Pulse Rate [ 133 H From Monitor] Respiratory 18 18 18 Rate Blood Pressure 79/27 98/42 107/43 O2 Sat by Pulse 93 93 92 Oximetry 07/23/20 07/23/20 07/23/20 04:11 04:21 04:30 Temperature Pulse Rate 133 H 132 H 134 H Pulse Rate [ From Monitor] Respiratory 18 18 18 Rate Blood Pressure 107/43 109/45 108/47 O2 Sat by Pulse 92 93 92 Oximetry 07/23/20 07/23/20 07/23/20 04:31 04:34 04:41 Temperature Pulse Rate 133 H 131 H 129 H Pulse Rate [ From Monitor] Respiratory 18 Rate Blood Pressure 108/47 108/47 O2 Sat by Pulse 93 95 Oximetry 07/23/20 07/23/20 07/23/20 04:51 05:00 05:11 Temperature Pulse Rate 130 H 130 H 130 H Pulse Rate [ From Monitor] Respiratory 18 18 18 Rate Blood Pressure 107/46 107/47 107/47 O2 Sat by Pulse 93 93 93 Oximetry 07/23/20 07/23/20 07/23/20 05:21 05:31 05:41 Temperature Pulse Rate 131 H 130 H 128 H Pulse Rate [ From Monitor] Respiratory 18 17 18 Rate Blood Pressure 107/47 107/47 107/47 O2 Sat by Pulse 91 95 96 Oximetry 07/23/20 07/23/20 07/23/20 05:51 06:01 06:11 Temperature Pulse Rate 126 H 126 H 125 H Pulse Rate [ From Monitor] Respiratory 18 18 18 Rate Blood Pressure 107/47 107/47 107/47 O2 Sat by Pulse 97 97 97 Oximetry 07/23/20 07/23/20 07/23/20 06:21 06:31 06:40 Temperature Pulse Rate 125 H 124 H 124 H Pulse Rate [ From Monitor] Respiratory 18 18 18 Rate Blood Pressure 107/47 107/47 107/47 O2 Sat by Pulse 97 97 97 Oximetry 07/23/20 07/23/20 07/23/20 06:51 07:01 07:11 Temperature Pulse Rate 124 H 123 H 123 H Pulse Rate [ From Monitor] Respiratory 18 18 18 Rate Blood Pressure 107/47 107/47 107/47 O2 Sat by Pulse 97 97 97 Oximetry 07/23/20 07/23/20 07/23/20 07:21 07:30 07:41 Temperature Pulse Rate 123 H 123 H 122 H Pulse Rate [ From Monitor] Respiratory 18 18 18 Rate Blood Pressure 107/47 103/49 103/49 O2 Sat by Pulse 98 94 95 Oximetry 07/23/20 07/23/20 07/23/20 07:50 08:00 08:10 Temperature Pulse Rate 123 H 122 H 122 H Pulse Rate [ 122 H From Monitor] Respiratory 18 18 18 Rate Blood Pressure 104/48 108/50 104/48 O2 Sat by Pulse 95 94 95 Oximetry 07/23/20 07/23/20 07/23/20 08:20 08:30 08:40 Temperature Pulse Rate 126 H 124 H 124 H Pulse Rate [ From Monitor] Respiratory 18 18 18 Rate Blood Pressure 118/32 123/59 118/32 O2 Sat by Pulse 96 95 95 Oximetry 07/23/20 07/23/20 08:50 09:15 Temperature Pulse Rate 123 H 121 H Pulse Rate [ From Monitor] Respiratory 18 Rate Blood Pressure 111/52 110/51 O2 Sat by Pulse 94 95 Oximetry - Lab 07/23/20 07:39 07/23/20 07:39 Most recent lab results ABG pH 7.313 (7.320-7.450) L 07/23/20 02:51 ABG pCO2 31.2 mm Hg 07/22/20 04:25 ABG pO2 104.9 mm Hg (80.0-90.0) H 07/22/20 04:25 ABG HCO3 23.7 mmol/L (20.0-26.0) 07/22/20 04:25 ABG O2 Saturation 98.1 % (95.0-99.0) 07/22/20 04:25 Calcium 7.7 mg/dL (8.4-10.2) L 07/23/20 07:39 Phosphorus 4.60 mg/dL (2.5-4.5) H D 07/23/20 07:39 Magnesium 1.80 mg/dL (1.7-2.3) 07/23/20 07:39 Medications & Allergies - Medications Allergies/Adverse Reactions: Allergies No Known Allergies Allergy (Verified 07/16/20 22:03) Home Medications: Home Medications Medication Instructions Recorded Confirmed Last Taken Type No Known Home Medications [No 07/17/20 07/17/20 Unknown History Reported Home Medications] Active Medications: Generic Name Dose Route Start Last Admin Trade Name Cruz PRN Reason Stop Dose Admin Acetaminophen 650 mg 07/23/20 00:37 07/23/20 01:05 Acetaminophen 325 Mg/10.15 Ml Oral Liqd Unit Dose FEEDTUBE 650 mg Q6H PRN Administration Fever >101 Lipase/Protease/Amylase 1 each 07/23/20 08:37 Lipase 10,500/Protease 25,000/Amylase 43,750 (Units) Dr Cap FEEDTUBE PRN PRN For Clogged Feeding Tube Acyclovir 370 mg/ Sodium 107.4 mls @ 100 mls/hr 07/17/20 12:00 07/22/20 21:58 Chloride IV 100 mls/hr Q12HR ESTELA Administration Protocol Ceftriaxone Sodium 1 gm in 50 mls @ 100 mls/hr 07/17/20 12:00 07/22/20 09:28 Rocephin/Ns 1 Gm/50 Ml IV 100 mls/hr Q24HR ESTELA Administration Protocol Thiamine HCl 100 mg/ Sodium 51 mls @ 100 mls/hr 07/18/20 10:00 07/22/20 09:28 Chloride IV 100 mls/hr QDAY ESTELA Administration Folic Acid 1 mg/ Sodium 50.2 mls @ 200.8 mls/hr 07/18/20 10:00 07/22/20 09:28 Chloride IV 200.8 mls/hr QDAY ESTELA Administration Pantoprazole Sodium 80 mg/ 100 mls @ 10 mls/hr 07/19/20 06:00 07/19/20 06:02 Sodium Chloride IV 8 mg/hr DIRECT ESTELA 10 mls/hr Administration 8 MG/HR Dopamine HCl/Dextrose 800 mg in 250 mls @ 2.807 mls/hr 07/19/20 05:45 07/19/20 05:55 Intropin Drip 800 Mg/D5w 250 Ml IV 20 mcg/kg/min TITR ESTELA 28.066 mls/hr Administration Protocol 2 MCG/KG/MIN Vasopressin 20 unit/ Sodium 101 mls @ 9.09 mls/hr 07/19/20 10:00 07/22/20 22:58 Chloride IV 0.03 units/min TITR ESTELA 9.09 mls/hr Administration Protocol 0.03 UNITS/MIN Norepinephrine 8 mg/ Sodium 250 mls @ 3.75 mls/hr 07/19/20 21:00 07/23/20 07:42 Chloride IV 24 mcg/min TITR ESTELA 45 mls/hr Administration Protocol 2 MCG/MIN Phenylephrine HCl 100 mg/ 100 mls @ 3 mls/hr 07/22/20 19:45 Sodium Chloride IV TITR ESTELA Protocol 50 MCG/MIN Vancomycin HCl 1,250 mg/ 275 mls @ 166.667 mls/hr 07/23/20 14:00 Sodium Chloride IV Q12H ESTELA Magnesium Hydroxide 30 ml 07/17/20 03:56 Magnesium Hydroxide (Mom) Oral Liqd Udc PO Q4H PRN Constipation Ondansetron HCl 4 mg 07/17/20 03:56 07/18/20 20:00 Ondansetron 4 Mg/2 Ml Inj IV 4 mg Q8H PRN Administration Nausea And Vomiting Simple Syrup 15 ml 07/23/20 08:37 Simple Syrup 15 Ml FEEDTUBE PRN PRN Hypoglycemia Simple Syrup 30 ml 07/23/20 08:37 Simple Syrup 15 Ml FEEDTUBE PRN PRN Hypoglycemia Sodium Bicarbonate 325 mg 07/23/20 08:37 Sodium Bicarbonate 325 Mg Tab FEEDTUBE PRN PRN For Clogged Feeding Tube Sodium Chloride 10 ml 07/17/20 10:00 07/22/20 21:57 Sodium Chloride 0.9% 10 Ml Flush Syringe IV 10 ml BID ESTELA Administration Sodium Chloride 10 ml 07/17/20 03:56 Sodium Chloride 0.9% 10 Ml Flush Syringe IV PRN PRN LINE FLUSH
[2020-07-23] MEDS: ACYCLOVIR IV SCH ×2 (10:39→21:56)
[2020-07-23] MEDS: FOLIC ACID 1 MG in SODIUM CHLORIDE 0.9% 50 ML IV SCH (10:39)
[2020-07-23] MEDS: cefTRIAXone/NS 1 GM/50 ML 1 GM/50 ML BAG IV SCH (10:39)
[2020-07-23] MEDS: THIAMINE 100 MG in SODIUM CHLORIDE 0.9% 50 ML IV SCH (10:39)
[2020-07-23] MEDS: SODIUM CHLORIDE 0.9% IV SCH ×2 (10:39→21:56)
--- NOTE | 2020-07-23 11:35 | Gastroenterology Progress Note ---
Assessment and Plan patient completed NAC and liver function (as evidenced by INR which reflects synthetic function of the liver) continues to improve (based upon labs from 07/22, no INR today yet). Unless making patient comfort care please draw LFT and INR daily Bilirubin is a trailing marker so it will likely peak soon and then gradually improve given patient's improving liver function, though the decline will be gradual Renal function worsening today, appreciate nephrology input. Regarding terminal press operator prognosis the neurologic insult is the most concerning issue at the moment, as liver function is returning. From hepatology perspective continue supportive care, avoid hepatotoxins, control cerebral pressures and patient should undergo frequent neuro checks to ensure no clinical evidence for brain herniation and recommend repeat CT head now. Recommend formal neuro consult please Hospitalist informed of my recs via messaging - Patient Problems (1) Acute liver failure Current Visit: Yes Status: Acute (2) Acute respiratory failure Current Visit: Yes Status: Acute Qualifiers: Respiratory failure complication: hypoxia Qualified Code(s): J96.01 - Acute respiratory failure with hypoxia (3) Cardiac arrest Current Visit: Yes Status: Acute Subjective Date of service: 07/23/20 Principal diagnosis: Acute Liver Injury Interval history: Patient remains intubated and on pressor support She is not responsive to painful stimuli and cannot provide history Objective - Constitutional Vitals: Temp Pulse Resp BP Pulse Ox 101.9 F H 117 H 18 111/55 95 07/23/20 04:00 07/23/20 11:00 07/23/20 11:00 07/23/20 11:00 07/23/20 11:00 General appearance: other (intubated) - EENT Eyes: scleral icterus - Respiratory Respiratory effort: other (intubated) - Neurologic Neurological: other (not withdrawing to painful stimuli) - Labs CBC & Chem 7: 07/23/20 07:39 07/23/20 07:39 Labs: Laboratory Results - last 24 hr 07/17/20 07/18/20 07/22/20 11:08 Unknown 12:08 WBC RBC Hgb Hct MCV MCH MCHC RDW Plt Count [place] % (Auto) Lymph # (Auto) Add Manual Diff Total Counted Seg Neuts % (Manual) Band Neutrophils % Lymphocytes % (Manual) Monocytes % (Manual) Eosinophils % (Manual) Nucleated RBC % Seg Neutrophils # Man Band Neutrophils # Lymphocytes # (Manual) Abs React Lymphs (Man) Monocytes # (Manual) Eosinophils # (Manual) Basophils # (Manual) Metamyelocytes # Myelocytes # Promyelocytes # Blast Cells # WBC Morphology Hypersegmented Neuts Hyposegmented Neuts Hypogranular Neuts Smudge Cells Toxic Granulation Toxic Vacuolation Dohle Bodies Pelger-Huet Anomaly Fede Rods Platelet Estimate Clumped Platelets Plt Clumps, EDTA Large Platelets Giant Platelets Platelet Satelliting Plt Morphology Comment RBC Morphology Dimorphic RBCs Polychromasia Hypochromasia Poikilocytosis Anisocytosis Microcytosis Macrocytosis Spherocytes Pappenheimer Bodies Sickle Cells Target Cells Tear Drop Cells Ovalocytes Helmet Cells [place] Bodies [place] Rings [place] Cells Bite Cells Crenated Cell Elliptocytes Acanthocytes (Spur) Rouleaux Hemoglobin C Crystals Schistocytes Malaria parasites Richard Bodies Hem Pathologist Commnt ABG pH POC ABG pCO2 POC ABG pO2 ABG Sodium ABG Potassium ABG Chloride ABG Glucose FiO2 Sodium Potassium Chloride Carbon Dioxide Anion Gap BUN Creatinine Estimated GFR BUN/Creatinine Ratio Glucose POC Glucose Calcium Phosphorus Magnesium Total Bilirubin 11.10 H Direct Bilirubin 8.8 H Indirect Bilirubin 2.3 AST 231 H ALT 286 H Alkaline Phosphatase 323 H Total Protein 3.6 L Albumin 2.0 L Albumin/Globulin Ratio 1.3 Arterial Blood Glucose Arterial Blood Ionized Calcium MARY Screen Negative T.pallidum Ab (FTA-ABS) Nonreactive 07/22/20 07/22/20 07/22/20 14:06 17:58 21:31 WBC RBC Hgb Hct MCV MCH MCHC RDW Plt Count [place] % (Auto) Lymph # (Auto) Add Manual Diff Total Counted Seg Neuts % (Manual) Band Neutrophils % Lymphocytes % (Manual) Monocytes % (Manual) Eosinophils % (Manual) Nucleated RBC % Seg Neutrophils # Man Band Neutrophils # Lymphocytes # (Manual) Abs React Lymphs (Man) Monocytes # (Manual) Eosinophils # (Manual) Basophils # (Manual) Metamyelocytes # Myelocytes # Promyelocytes # Blast Cells # WBC Morphology Hypersegmented Neuts Hyposegmented Neuts Hypogranular Neuts Smudge Cells Toxic Granulation Toxic Vacuolation Dohle Bodies Pelger-Huet Anomaly Fede Rods Platelet Estimate Clumped Platelets Plt Clumps, EDTA Large Platelets Giant Platelets Platelet Satelliting Plt Morphology Comment RBC Morphology Dimorphic RBCs Polychromasia Hypochromasia Poikilocytosis Anisocytosis Microcytosis Macrocytosis Spherocytes Pappenheimer Bodies Sickle Cells Target Cells Tear Drop Cells Ovalocytes Helmet Cells [place] Bodies [place] Rings Shashank Cells Bite Cells Crenated Cell Elliptocytes Acanthocytes (Spur) Rouleaux Hemoglobin C Crystals Schistocytes Malaria parasites Richard Bodies Hem Pathologist Commnt ABG pH POC ABG pCO2 POC ABG pO2 ABG Sodium ABG Potassium ABG Chloride ABG Glucose FiO2 Sodium Potassium Chloride Carbon Dioxide Anion Gap BUN Creatinine Estimated GFR BUN/Creatinine Ratio Glucose POC Glucose 100 86 76 Calcium Phosphorus Magnesium Total Bilirubin Direct Bilirubin Indirect Bilirubin AST ALT Alkaline Phosphatase Total Protein Albumin Albumin/Globulin Ratio Arterial Blood Glucose Arterial Blood Ionized Calcium MARY Screen T.pallidum Ab (FTA-ABS) 07/23/20 07/23/20 07/23/20 01:53 02:51 03:37 WBC RBC Hgb Hct MCV MCH MCHC RDW Plt Count [place] % (Auto) Lymph # (Auto) Add Manual Diff Total Counted Seg Neuts % (Manual) Band Neutrophils % Lymphocytes % (Manual) Monocytes % (Manual) Eosinophils % (Manual) Nucleated RBC % Seg Neutrophils # Man Band Neutrophils # Lymphocytes # (Manual) Abs React Lymphs (Man) Monocytes # (Manual) Eosinophils # (Manual) Basophils # (Manual) Metamyelocytes # Myelocytes # Promyelocytes # Blast Cells # WBC Morphology Hypersegmented Neuts Hyposegmented Neuts Hypogranular Neuts Smudge Cells Toxic Granulation Toxic Vacuolation Dohle Bodies Pelger-Huet Anomaly Fede Rods Platelet Estimate Clumped Platelets Plt Clumps, EDTA Large Platelets Giant Platelets Platelet Satelliting Plt Morphology Comment RBC Morphology Dimorphic RBCs Polychromasia Hypochromasia Poikilocytosis Anisocytosis Microcytosis Macrocytosis Spherocytes Pappenheimer Bodies Sickle Cells Target Cells Tear Drop Cells Ovalocytes Helmet Cells [place] Bodies [place] Rings Shashank Cells Bite Cells Crenated Cell Elliptocytes Acanthocytes (Spur) Rouleaux Hemoglobin C Crystals Schistocytes Malaria parasites Richard Bodies Hem Pathologist Commnt ABG pH 7.313 L POC ABG pCO2 43.3 POC ABG pO2 67.0 L ABG Sodium 141.9 ABG Potassium 3.2 L ABG Chloride 115.0 H ABG Glucose 88 FiO2 50 Sodium Potassium Chloride Carbon Dioxide Anion Gap BUN Creatinine Estimated GFR BUN/Creatinine Ratio Glucose POC Glucose 64 L 79 Calcium Phosphorus Magnesium Total Bilirubin Direct Bilirubin Indirect Bilirubin AST ALT Alkaline Phosphatase Total Protein Albumin Albumin/Globulin Ratio Arterial Blood Glucose 88 Arterial Blood Ionized Calcium 4.3 L MARY Screen T.pallidum Ab (FTA-ABS) 07/23/20 07/23/20 07/23/20 05:42 07:38 07:39 WBC 37.0 H RBC 2.30 L Hgb 7.8 L Hct 22.5 L MCV 98 H MCH 34 H MCHC 35 H RDW 21.3 H Plt Count 55 L [place] % (Auto) Overcoil Stepper Lymph # (Auto) Overcoil Stepper Add Manual Diff Complete Total Counted 100 Seg Neuts % (Manual) 78.0 H Band Neutrophils % 7.0 Lymphocytes % (Manual) 10.0 L Monocytes % (Manual) 3.0 Eosinophils % (Manual) 2.0 Nucleated RBC % 3.0 H Seg Neutrophils # Man 28.9 H Band Neutrophils # 2.6 Lymphocytes # (Manual) 3.7 Abs React Lymphs (Man) 0.0 Monocytes # (Manual) 1.1 H Eosinophils # (Manual) 0.7 H Basophils # (Manual) 0.0 Metamyelocytes # 0.0 Myelocytes # 0.0 Promyelocytes # 0.0 Blast Cells # 0.0 WBC Morphology Not Reportable Hypersegmented Neuts Not Reportable Hyposegmented Neuts Not Reportable Hypogranular Neuts Not Reportable Smudge Cells Not Reportable Toxic Granulation Not Reportable Toxic Vacuolation Not Reportable Dohle Bodies Not Reportable Pelger-Huet Anomaly Not Reportable Fede Rods Not Reportable Platelet Estimate Not Reportable Clumped Platelets Not Reportable Plt Clumps, EDTA Not Reportable Large Platelets Not Reportable Giant Platelets Not Reportable Platelet Satelliting Not Reportable Plt Morphology Comment Not Reportable RBC Morphology Not Reportable Dimorphic RBCs Not Reportable Polychromasia 1+ Hypochromasia Not Reportable Poikilocytosis 2+ Anisocytosis 1+ Microcytosis Not Reportable Macrocytosis Not Reportable Spherocytes Not Reportable Pappenheimer Bodies Not Reportable Sickle Cells Not Reportable Target Cells 2+ Tear Drop Cells Not Reportable Ovalocytes 1+ Helmet Cells Not Reportable [place] Bodies Not Reportable [place] Rings Not Reportable [place] Cells Not Reportable Bite Cells Not Reportable Crenated Cell Not Reportable Elliptocytes Not Reportable Acanthocytes (Spur) Not Reportable Rouleaux Not Reportable Hemoglobin C Crystals Not Reportable Schistocytes Not Reportable Malaria parasites Not Reportable Richard Bodies Not Reportable Hem Pathologist Commnt No ABG pH POC ABG pCO2 POC ABG pO2 ABG Sodium ABG Potassium ABG Chloride ABG Glucose FiO2 Sodium Potassium Chloride Carbon Dioxide Anion Gap BUN Creatinine Estimated GFR BUN/Creatinine Ratio Glucose POC Glucose 79 62 L Calcium Phosphorus Magnesium Total Bilirubin Direct Bilirubin Indirect Bilirubin AST ALT Alkaline Phosphatase Total Protein Albumin Albumin/Globulin Ratio Arterial Blood Glucose Arterial Blood Ionized Calcium MARY Screen T.pallidum Ab (FTA-ABS) 07/23/20 07/23/20 07:39 07:39 WBC RBC Hgb Hct MCV MCH MCHC RDW Plt Count [place] % (Auto) Lymph # (Auto) Add Manual Diff Total Counted Seg Neuts % (Manual) Band Neutrophils % Lymphocytes % (Manual) Monocytes % (Manual) Eosinophils % (Manual) Nucleated RBC % Seg Neutrophils # Man Band Neutrophils # Lymphocytes # (Manual) Abs React Lymphs (Man) Monocytes # (Manual) Eosinophils # (Manual) Basophils # (Manual) Metamyelocytes # Myelocytes # Promyelocytes # Blast Cells # WBC Morphology TNR Hypersegmented Neuts Hyposegmented Neuts Hypogranular Neuts Smudge Cells Toxic Granulation Toxic Vacuolation Dohle Bodies Pelger-Huet Anomaly Fede Rods Platelet Estimate Clumped Platelets Plt Clumps, EDTA Large Platelets Giant Platelets Platelet Satelliting Plt Morphology Comment RBC Morphology Dimorphic RBCs Polychromasia Hypochromasia Poikilocytosis Anisocytosis Microcytosis Macrocytosis Spherocytes Pappenheimer Bodies Sickle Cells Target Cells Tear Drop Cells Ovalocytes Helmet Cells [place] Bodies [place] Rings [place] Cells Bite Cells Crenated Cell Elliptocytes Acanthocytes (Spur) Rouleaux Hemoglobin C Crystals Schistocytes Malaria parasites Richard Bodies Hem Pathologist Commnt ABG pH POC ABG pCO2 POC ABG pO2 ABG Sodium ABG Potassium ABG Chloride ABG Glucose FiO2 Sodium 148 H Potassium 3.6 D Chloride 114.0 H Carbon Dioxide 25 Anion Gap 13 BUN 59 H Creatinine 1.5 H Estimated GFR 50 BUN/Creatinine Ratio 39 Glucose 82 POC Glucose Calcium 7.7 L Phosphorus 4.60 H D Magnesium 1.80 Total Bilirubin 11.20 H Direct Bilirubin Indirect Bilirubin AST 245 H ALT 242 H Alkaline Phosphatase 423 H Total Protein 4.3 L Albumin 1.8 L Albumin/Globulin Ratio 0.7 Arterial Blood Glucose Arterial Blood Ionized Calcium MARY Screen T.pallidum Ab (FTA-ABS)
[2020-07-23] MEDS: VASOPRESSIN 20 UNIT in SODIUM CHLORIDE 0.9% 100 ML IV SCH (11:37)
--- NOTE | 2020-07-23 13:16 | Progress Note ---
Assessment and Plan Cultures: 07/16/2020 blood culture: no growth 07/17/2020 cervix wet prep: High number of clue cells, no trichomonas or yeast seen. 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 #Severe sepsis septic shock/MODS: Worsening fever and leukocytosis, lactic acidosis, remains on 2 pressors. Unclear etiology ?UTI/PID ?colitis ?pneumonia. #Bilateral pneumonia versus pulmonary edema: Bilateral pleural effusions, diffuse bilateral patchy groundglass opacities #Acute hepatic failure: ?Toxin/med related v/s autoimmune, less likely infectious. Also ruling out HSV induced hepatic necrosis and related fulminant hepatic falure. GI following. LFTs and synthetic liver function seem to be gradually improving. #Acute kidney injury: nephrology following. #Possible UTI/PID: has been on empiric abx. #Diffuse colitis noted on CT scan: Already on antibiotics. On multiple pressors. More likely to be ischemia related. No active diarrhea. #Diffuse cerebral edema: Probably a combination of acute liver failure and hypoxic encephalopathy. #Acute thrombocytopenia: Worsening #Anemia: Worsening #Syphilis IgG positive, RPR titer non reactive, FTA-ABS is also nonreactive, so very likely it is a false positive #Acute encephalopathy: CT with diffuse brain edema Recs: -Repeat blood cultures, UA, urine cultures, tracheal aspirate culture -Stop ceftriaxone -Start cefepime and vancomycin renally adjusted -Continue renally dosed acyclovir -f/u HSV DNA PCR on serum, re-ordered, pending -Neurology consult -overall poor prognosis, high mortality Brii Solares MD [facility] ([facility]) Office [phone] Subjective Date of service: 07/23/20 Principal diagnosis: Acute Liver Injury Interval history: Now with high fever, 103, remains on pressors, Levophed and vasopressin, intubated, FiO2 50%, PEEP 6, no fever for 48 hours. Review of systems unable to obtain. Objective - Exam Narrative Exam: General appearance: Unresponsive intubated Eyes: anicteric sclerae, moist conjunctivae; no lid-lag; pupils nonreactive HENT: Normocephalic, Atraumatic; normal external ears, nares open, oropharynx limited endotracheal tube in place, OGT Neck: supple, tracheal midline, no JVD Lungs: Bilateral coarse breath sounds CV: Tachycardic Abdomen: Soft, non-tender Extremities: no edema, no cyanosis Skin: No rash. Psych: Unresponsive Neuro: Unresponsive Ken[place] in place Femoral TLC - Constitutional Vitals: Vital Signs Temp Pulse Resp BP Pulse Ox 101.9 F H 115 H 18 125/62 97 07/23/20 04:00 07/23/20 12:52 07/23/20 11:00 07/23/20 12:52 07/23/20 12:52 Temperature -Last 24 Hours Temperature 101.9 F Temperature 103 F Temperature 100.9 F Temperature 98.3 F - Labs CBC & Chem 7: 07/23/20 07:39 07/23/20 07:39 Labs: Abnormal lab results 07/22/20 07/23/20 07/23/20 Range/Units 12:08 01:53 02:51 WBC (4.5-11.0) K/mm3 RBC (3.65-5.03) M/mm3 Hgb (10.1-14.3) gm/dl Hct (30.3-42.9) % MCV (79-97) fl MCH (28-32) pg MCHC (30-34) % RDW (13.2-15.2) % Plt Count (140-440) K/mm3 Seg Neuts % (Manual) (40.0-70.0) % Lymphocytes % (Manual) (13.4-35.0) % Nucleated RBC % (0.0-0.9) % Seg Neutrophils # Man (1.8-7.7) K/mm3 Monocytes # (Manual) (0.0-0.8) K/mm3 Eosinophils # (Manual) (0.0-0.4) K/mm3 ABG pH 7.313 L (7.320-7.450) POC ABG pO2 67.0 L (83-108) mmHg ABG Potassium 3.2 L (3.40-4.50) mmol/L ABG Chloride 115.0 H (98-107) mmol/L Sodium (137-145) mmol/L Chloride (98-107) mmol/L BUN (7-17) mg/dL Creatinine (0.6-1.2) mg/dL POC Glucose 64 L (70-105) mg/dL Calcium (8.4-10.2) mg/dL Phosphorus (2.5-4.5) mg/dL Total Bilirubin 11.10 H (0.1-1.2) mg/dL Direct Bilirubin 8.8 H (0-0.2) mg/dL AST 231 H (5-40) units/L ALT 286 H (7-56) units/L Alkaline Phosphatase 323 H (35-129) units/L Total Protein 3.6 L (6.3-8.2) g/dL Albumin 2.0 L (3.9-5) g/dL Arterial Blood Ionized Calcium 4.3 L (4.6-5.3) mg/dL 07/23/20 07/23/20 07/23/20 Range/Units 07:38 07:39 07:39 WBC 37.0 H (4.5-11.0) K/mm3 RBC 2.30 L (3.65-5.03) M/mm3 Hgb 7.8 L (10.1-14.3) gm/dl Hct 22.5 L (30.3-42.9) % MCV 98 H (79-97) fl MCH 34 H (28-32) pg MCHC 35 H (30-34) % RDW 21.3 H (13.2-15.2) % Plt Count 55 L (140-440) K/mm3 Seg Neuts % (Manual) 78.0 H (40.0-70.0) % Lymphocytes % (Manual) 10.0 L (13.4-35.0) % Nucleated RBC % 3.0 H (0.0-0.9) % Seg Neutrophils # Man 28.9 H (1.8-7.7) K/mm3 Monocytes # (Manual) 1.1 H (0.0-0.8) K/mm3 Eosinophils # (Manual) 0.7 H (0.0-0.4) K/mm3 ABG pH (7.320-7.450) POC ABG pO2 (83-108) mmHg ABG Potassium (3.40-4.50) mmol/L ABG Chloride (98-107) mmol/L Sodium 148 H (137-145) mmol/L Chloride 114.0 H (98-107) mmol/L BUN 59 H (7-17) mg/dL Creatinine 1.5 H (0.6-1.2) mg/dL POC Glucose 62 L (70-105) mg/dL Calcium 7.7 L (8.4-10.2) mg/dL Phosphorus 4.60 H D (2.5-4.5) mg/dL Total Bilirubin 11.20 H (0.1-1.2) mg/dL Direct Bilirubin (0-0.2) mg/dL AST 245 H (5-40) units/L ALT 242 H (7-56) units/L Alkaline Phosphatase 423 H (35-129) units/L Total Protein 4.3 L (6.3-8.2) g/dL Albumin 1.8 L (3.9-5) g/dL Arterial Blood Ionized Calcium (4.6-5.3) mg/dL
[2020-07-23] MEDS: CEFEPIME/NS 2 GM/100 ML 2 GM/100 ML BAG IV SCH (13:37)
[2020-07-23] MEDS: VANCOMYCIN 1,250 MG in SODIUM CHLORIDE 0.9% 250ML 250 ML IV SCH (14:27)
[2020-07-23 17:20] LABS: Bacteria,Urine 4+ /HPF (Negative); Bilirubin,Urine MOD (Negative); Blood,Urine SM (Negative); Color,Urine Amber (Yellow); Mucus,Urine FEW /HPF; Protein,Urine <15 mg/dL mg/dL (Negative)
--- NOTE | 2020-07-23 17:28 | Progress Note ---
Assessment and Plan - Patient Problems (1) Severe sepsis with septic shock Current Visit: Yes Status: Acute Plan to address problem: Sepsis protocol, IV pressor support, IV antibiotic therapy, IV fluid resuscitation therapy, maintain mean arterial pressure greater than or equal to 65, monitor urine output every shift, serial lactic acid level The high probability of a clinically significant, sudden or life threatening deterioration of the [neuro, cardiac, renal, pulmonary] system(s) required my full and direct attention, intervention and personal management. The aggregate critical care time was [90] minutes. This time is in addition to time spent performing reported procedures but includes the following: [x] Data Review and interpretation [x] Patient assessment and monitoring of vital signs [x] Documentation [x] Medication orders and management (2) Acute respiratory failure Current Visit: Yes Status: Acute Qualifiers: Respiratory failure complication: hypoxia Qualified Code(s): J96.01 - Acute respiratory failure with hypoxia Plan to address problem: Patient intubated and placed on ventilatory support overnight. Wean vent as tolerated, pulmonary team consulted, spontaneous breathing trial daily, sedation holiday, supportive care. (3) Acute liver failure Current Visit: Yes Status: Acute Plan to address problem: Supportive care, GI team consulted. Pt has poor prognosis, and currently unstable for transfer. (4) Metabolic acidosis Current Visit: Yes Status: Acute Plan to address problem: BMP, IV bicarbonate therapy, repeat BMP (5) UTI (urinary tract infection) Current Visit: Yes Status: Acute Qualifiers: Encounter type: initial encounter Plan to address problem: IV antibiotic therapy, supportive care. (6) DVT prophylaxis Current Visit: Yes Status: Acute Plan to address problem: SCD to bilateral lower extremities while in bed (7) Acute kidney injury (RINA) with acute tubular necrosis (ATN) Current Visit: Yes Status: Acute Plan to address problem: Nephrology team consulted, IV fluid resuscitation therapy, monitor urine output every shift, monitor fluid balance, supportive care. (8) Cardiac arrest Current Visit: Yes Status: Acute Plan to address problem: Patient experienced cardiac arrest overnight. Patient treated with ACLS protocol with eventual return of perfusing cardiac rhythm. Patient has poor prognosis. (9) Toxic metabolic encephalopathy Current Visit: Yes Status: Acute Plan to address problem: CT scan head, when medically stable, supportive care, continue medical management. Suspect anoxic brain injury. (10) Advance care planning Current Visit: Yes Status: Acute Plan to address problem: Disease education conducted, patient is full code, patient prognosis discussed with patient mother Tete Gao as well as the patient's grandmother., patient family informed the patient shows no sign of brain function and is on multiple medications to maintain her current status. Patient family informed that patient has experienced nonsurvivable physiologic insult. Patient family acknowledges prognosis. Awaiting decision on withdrawal of care. Tentative plan for family meeting to discuss initiation of comfort care measures on today or tomorrow as per family availability. Patient family informed of care plan. +30 minutes. History Interval history: 29 YO Female HD #8 with Severe Sepsis complicated by Shock, Fulminant Hepatic Failure, ETOH Dependence, RINA with ATN, Toxic Metabolic Encephalopathy, Elevated INR, Metabolic Acidosis, Acute Respiratory Failure S/P Cardiac Arrest. Patient is critically ill and has very poor prognosis. Patient experienced cardiac and suspected Anoxic Brain Injury. Patient currently intubated and on ventilatory support. Patient has poor prognosis. No significant overnight improvement. Hospitalist Physical - Constitutional Vitals: Temp Pulse Resp BP Pulse Ox 98.2 F 102 H 18 124/58 99 07/23/20 12:00 07/23/20 16:58 07/23/20 15:00 07/23/20 16:58 07/23/20 16:58 General appearance: Present: severe distress, other (Lethargic not quite encep halopathic alert appears to be tired. Patient states she is just fatigued.) - EENT Eyes: Present: mydriasis ENT: hearing decreased - Neck Neck: Present: supple - Respiratory Respiratory effort: labored Respiratory: bilateral: diminished, rhonchi - Cardiovascular Rhythm: regular Heart Sounds: Present: S1 & S2 - Extremities Extremity abnormal: edema Peripheral Pulses: within normal limits - Abdominal General gastrointestinal: soft, non-tender, distended - Integumentary Integumentary: Present: dry - Psychiatric Psychiatric: no appropriate mood/affect, no intact judgment & insight, no memory intact - Neurologic Neurologic: no CNII-XII intact, focal deficits, no moves all extremities, no gait normal HEART Score - HEART Score Troponin: Troponin T < 0.010 ng/mL (0.00-0.029) 07/16/20 20:47 Results - Labs CBC & Chem 7: 07/23/20 07:39 07/23/20 07:39 Labs: Laboratory Last Values WBC 37.0 K/mm3 (4.5-11.0) H 07/23/20 07:39 RBC 2.30 M/mm3 (3.65-5.03) L 07/23/20 07:39 Hgb 7.8 gm/dl (10.1-14.3) L 07/23/20 07:39 Hct 22.5 % (30.3-42.9) L 07/23/20 07:39 MCV 98 fl (79-97) H 07/23/20 07:39 MCH 34 pg (28-32) H 07/23/20 07:39 MCHC 35 % (30-34) H 07/23/20 07:39 RDW 21.3 % (13.2-15.2) H 07/23/20 07:39 Plt Count 55 K/mm3 (140-440) L 07/23/20 07:39 Lymph % (Auto) 9.7 % (13.4-35.0) L 07/19/20 05:41 [place] % (Auto) [place] 07/23/20 07:39 Eos % (Auto) 0.8 % (0.0-4.3) 07/19/20 05:41 Baso % (Auto) 0.0 % (0.0-1.8) 07/19/20 05:41 Lymph # (Auto) [place] 07/23/20 07:39 [place] # (Auto) 1.3 K/mm3 (0.0-0.8) H 07/19/20 05:41 Eos # (Auto) 0.1 K/mm3 (0.0-0.4) 07/19/20 05:41 Baso # (Auto) 0.0 K/mm3 (0.0-0.1) 07/19/20 05:41 Add Manual Diff Complete 07/23/20 07:39 Total Counted 100 07/23/20 07:39 Seg Neutrophils % 81.2 % (40.0-70.0) H 07/19/20 05:41 Seg Neuts % (Manual) 78.0 % (40.0-70.0) H 07/23/20 07:39 Band Neutrophils % 7.0 % 07/23/20 07:39 Lymphocytes % (Manual) 10.0 % (13.4-35.0) L 07/23/20 07:39 Monocytes % (Manual) 3.0 % (0.0-7.3) 07/23/20 07:39 Eosinophils % (Manual) 2.0 % (0.0-4.3) 07/23/20 07:39 Metamyelocytes % 1.0 % 07/22/20 07:57 Myelocytes % 1.0 % 07/19/20 05:41 Nucleated RBC % 3.0 % (0.0-0.9) H 07/23/20 07:39 Seg Neutrophils # 12.9 K/mm3 (1.8-7.7) H 07/19/20 05:41 Seg Neutrophils # Man 28.9 K/mm3 (1.8-7.7) H 07/23/20 07:39 Band Neutrophils # 2.6 K/mm3 07/23/20 07:39 Lymphocytes # (Manual) 3.7 K/mm3 (1.2-5.4) 07/23/20 07:39 Abs React Lymphs (Man) 0.0 K/mm3 07/23/20 07:39 Monocytes # (Manual) 1.1 K/mm3 (0.0-0.8) H 07/23/20 07:39 Eosinophils # (Manual) 0.7 K/mm3 (0.0-0.4) H 07/23/20 07:39 Basophils # (Manual) 0.0 K/mm3 (0.0-0.1) 07/23/20 07:39 Metamyelocytes # 0.0 K/mm3 07/23/20 07:39 Myelocytes # 0.0 K/mm3 07/23/20 07:39 Promyelocytes # 0.0 K/mm3 07/23/20 07:39 Blast Cells # 0.0 K/mm3 07/23/20 07:39 Pathologist Review 07/16/20 20:47 WBC Morphology Not Reportable 07/23/20 07:39 WBC Morphology TNR 07/23/20 07:39 Hypersegmented Neuts Not Reportable 07/23/20 07:39 Hyposegmented Neuts Not Reportable 07/23/20 07:39 Hypogranular Neuts Not Reportable 07/23/20 07:39 Smudge Cells Not Reportable 07/23/20 07:39 Toxic Granulation Not Reportable 07/23/20 07:39 Toxic Vacuolation Not Reportable 07/23/20 07:39 Dohle Bodies Not Reportable 07/23/20 07:39 Pelger-Huet Anomaly Not Reportable 07/23/20 07:39 Fede Rods Not Reportable 07/23/20 07:39 Platelet Estimate Not Reportable 07/23/20 07:39 Clumped Platelets Not Reportable 07/23/20 07:39 Plt Clumps, EDTA Not Reportable 07/23/20 07:39 Large Platelets Not Reportable 07/23/20 07:39 Giant Platelets Not Reportable 07/23/20 07:39 Platelet Satelliting Not Reportable 07/23/20 07:39 Plt Morphology Comment Not Reportable 07/23/20 07:39 RBC Morphology Not Reportable 07/23/20 07:39 Dimorphic RBCs Not Reportable 07/23/20 07:39 Polychromasia 1+ 07/23/20 07:39 Hypochromasia Not Reportable 07/23/20 07:39 Poikilocytosis 2+ 07/23/20 07:39 Anisocytosis 1+ 07/23/20 07:39 Microcytosis Not Reportable 07/23/20 07:39 Macrocytosis Not Reportable 07/23/20 07:39 Spherocytes Not Reportable 07/23/20 07:39 Pappenheimer Bodies Not Reportable 07/23/20 07:39 Sickle Cells Not Reportable 07/23/20 07:39 Target Cells 2+ 07/23/20 07:39 Tear Drop Cells Not Reportable 07/23/20 07:39 Ovalocytes 1+ 07/23/20 07:39 Helmet Cells Not Reportable 07/23/20 07:39 [place] Bodies Not Reportable 07/23/20 07:39 [place] Rings Not Reportable 07/23/20 07:39 [place] Cells Not Reportable 07/23/20 07:39 Bite Cells Not Reportable 07/23/20 07:39 Crenated Cell Not Reportable 07/23/20 07:39 Elliptocytes Not Reportable 07/23/20 07:39 Acanthocytes (Spur) Not Reportable 07/23/20 07:39 Rouleaux Not Reportable 07/23/20 07:39 Hemoglobin C Crystals Not Reportable 07/23/20 07:39 Schistocytes Not Reportable 07/23/20 07:39 Malaria parasites Not Reportable 07/23/20 07:39 Richard Bodies Not Reportable 07/23/20 07:39 Hem Pathologist Commnt No 07/23/20 07:39 PT 21.6 Sec. (12.2-14.9) H 07/22/20 07:57 INR 1.87 (0.87-1.13) H 07/22/20 07:57 ABG pH 7.313 (7.320-7.450) L 07/23/20 02:51 POC ABG pCO2 43.3 mmHg (32.0-48.0) 07/23/20 02:51 ABG pCO2 31.2 mm Hg 07/22/20 04:25 POC ABG pO2 67.0 mmHg (83-108) L 07/23/20 02:51 ABG pO2 104.9 mm Hg (80.0-90.0) H 07/22/20 04:25 POC ABG HCO3 22.0 07/20/20 10:42 ABG HCO3 23.7 mmol/L (20.0-26.0) 07/22/20 04:25 ABG O2 Saturation 98.1 % (95.0-99.0) 07/22/20 04:25 ABG O2 Content 11.7 (0.0-44) 07/22/20 04:25 POC ABG Base Excess -1.6 07/20/20 10:42 ABG Base Excess 0.8 mmol/L (-2.0-3.0) 07/22/20 04:25 ABG Hemoglobin 8.6 gm/dl (12.0-16.0) L 07/22/20 04:25 ABG Oxyhemoglobin 96.3 (94-98) 07/20/20 10:42 ABG Carboxyhemoglobin 2.3 % (0.0-5.0) 07/22/20 04:25 ABG Methemoglobin 0.5 % (0.0-1.5) 07/22/20 04:25 ABG Sodium 141.9 mmol/L (136.0-145.0) 07/23/20 02:51 ABG Potassium 3.2 mmol/L (3.40-4.50) L 07/23/20 02:51 ABG Chloride 115.0 mmol/L (98-107) H 07/23/20 02:51 ABG Glucose 88 mg/dL (65-95) 07/23/20 02:51 VBG pH 7.085 (7.320-7.420) L* 07/17/20 01:46 Oxyhemoglobin 95.4 % (95.0-99.0) 07/22/20 04:25 Carboxyhemoglobin 1.9 (0.5-1.5) H 07/20/20 10:42 FiO2 50 07/23/20 02:51 Sodium 148 mmol/L (137-145) H 07/23/20 07:39 Potassium 3.6 mmol/L (3.6-5.0) D 07/23/20 07:39 Chloride 114.0 mmol/L (98-107) H 07/23/20 07:39 Carbon Dioxide 25 mmol/L (22-30) 07/23/20 07:39 Anion Gap 13 mmol/L 07/23/20 07:39 BUN 59 mg/dL (7-17) H 07/23/20 07:39 Creatinine 1.5 mg/dL (0.6-1.2) H 07/23/20 07:39 Estimated GFR 50 ml/min 07/23/20 07:39 BUN/Creatinine Ratio 39 % 07/23/20 07:39 Glucose 82 mg/dL (65-100) 07/23/20 07:39 POC Glucose 98 mg/dL (70-105) 07/23/20 16:50 Lactic Acid 3.90 mmol/L (0.7-2.0) H* 07/19/20 Unknown Calcium 7.7 mg/dL (8.4-10.2) L 07/23/20 07:39 Phosphorus 4.60 mg/dL (2.5-4.5) H D 07/23/20 07:39 Magnesium 1.80 mg/dL (1.7-2.3) 07/23/20 07:39 Total Bilirubin 11.20 mg/dL (0.1-1.2) H 07/23/20 07:39 Direct Bilirubin 8.8 mg/dL (0-0.2) H 07/22/20 12:08 Indirect Bilirubin 2.3 mg/dL 07/22/20 12:08 AST 245 units/L (5-40) H 07/23/20 07:39 ALT 242 units/L (7-56) H 07/23/20 07:39 Alkaline Phosphatase 423 units/L (35-129) H 07/23/20 07:39 Ammonia 96.0 umol/L (25-60) H 07/19/20 05:41 Total Creatine Kinase 332 units/L (30-135) H 07/17/20 09:23 Troponin T < 0.010 ng/mL (0.00-0.029) 07/16/20 20:47 Total Protein 4.3 g/dL (6.3-8.2) L 07/23/20 07:39 Albumin 1.8 g/dL (3.9-5) L 07/23/20 07:39 Albumin/Globulin Ratio 0.7 % 07/23/20 07:39 Lipase 14 units/L (13-60) 07/17/20 01:46 TSH 0.354 mlU/mL (0.270-4.200) 07/16/20 20:47 HCG, Qual Negative (Negative) 07/19/20 07:35 Arterial Blood Glucose 88 mg/dL (65-95) 07/23/20 02:51 Arterial Blood Ionized Calcium 4.3 mg/dL (4.6-5.3) L 07/23/20 02:51 Urine Color Red (Yellow) 07/16/20 03:54 Urine Turbidity Turbid (Clear) 07/16/20 03:54 Urine pH 5.0 (5.0-7.0) 07/16/20 03:54 Ur Specific [place] 1.013 (1.003-1.030) 07/16/20 03:54 Urine Protein >500 mg/dL (Negative) 07/16/20 03:54 Urine Glucose (UA) Neg mg/dL (Negative) 07/16/20 03:54 Urine Ketones Tr mg/dL (Negative) 07/16/20 03:54 Urine Blood Lg (Negative) 07/16/20 03:54 Urine Nitrite Neg (Negative) 07/16/20 03:54 Urine Bilirubin Mod (Negative) 07/23/20 Unknown Urine Urobilinogen < 2.0 mg/dL (<2.0) 07/16/20 03:54 Ur Leukocyte Esterase Sm (Negative) 07/16/20 03:54 Urine WBC (Auto) 57.0 /HPF (0.0-6.0) H 07/16/20 03:54 Urine RBC (Auto) 35.0 /HPF (0.0-6.0) 07/16/20 03:54 U Epithel Cells (Auto) 13.0 /HPF (0-13.0) 07/23/20 Unknown Urine Bacteria (Auto) 1+ /HPF (Negative) 07/16/20 03:54 Urine WBC Clumps 3+ /HPF 07/16/20 03:54 Urine Mucus Few /HPF 07/16/20 03:54 Acetaminophen 5.0 ug/mL (10.0-30.0) L 07/17/20 09:23 MARY Screen Negative (Negative) 07/17/20 11:08 Syphilis IgG Antibody Reactive (NonReactive) A 07/17/20 11:08 RPR Titer Nr 07/17/20 11:08 T.pallidum Ab (FTA-ABS) Nonreactive (Nonreactive) 07/18/20 Unknown C.trachomatis DNA (SDA) Not detected (Not Detected) 07/17/20 02:25 Hepatitis A IgM Ab Non-reactive (NonReactive) 07/17/20 11:08 Hep Bs Antigen Non-reactive (Negative) 07/17/20 11:08 Hep B Core IgM Ab Non-reactive (NonReactive) 07/17/20 11:08 Hepatitis C Antibody Non-reactive (NonReactive) 07/17/20 11:08 HSV I Specific Ab 5.23 Index (<0.90) H 07/17/20 11:08 HIV 1&2 Antibody Rapid Non react (Non React) 07/17/20 11:08 HIV P24 Antigen Non react (Non React) 07/17/20 11:08 N.gonorrhoeae DNA (SDA) Not detected (Not Detected) 07/17/20 02:25 Blood Type O POSITIVE 07/19/20 07:35 Antibody Screen Negative 07/19/20 07:35 Crossmatch See Detail 07/19/20 07:35 Microbiology: Microbiology 07/22/20 20:47 Peripheral/Venous Blood Culture - Preliminary Culture in Progress 07/22/20 20:47 Peripheral/Venous Blood Culture - Preliminary Culture in Progress [place]/IV: Voiding Method Indwelling Catheter IV Catheter Type [Right Triple Lumen Cath Femoral] IV Catheter Type [Right Hand] Peripheral IV IV Catheter Type [Left Hand] INT / Saline Lock IV Catheter Type [Acetadote ( Peripheral IV Acetylcysteine IV) 7,500 mg In D5w 1,000 ml @ 62.5 mls/hr IV ONCE ONE Rx#:[id number]] IV Catheter Type [Sodium Triple Lumen Cath Bicarbonate 50 Meq In NaCl 0.9 % 1000 ml 1,000 ml @ 100 mls/ hr IV DIRECT ESTELA Rx#: [id number]] Active Medications - Current Medications Current Medications: Generic Name Dose Route Start Last Admin Trade Name Freq PRN Reason Stop Dose Admin Acetaminophen 650 mg 07/23/20 00:37 07/23/20 01:05 Acetaminophen 325 Mg/10.15 Ml Oral Liqd Unit Dose FEEDTUBE 650 mg Q6H PRN Administration Fever >101 Albumin Human 25 gm 07/23/20 17:00 Albumin Human 25% (25 Gm/100 Ml) Inj IV 07/24/20 05:01 Q6H ESTELA Lipase/Protease/Amylase 1 each 07/23/20 08:37 Lipase 10,500/Protease 25,000/Amylase 43,750 (Units) Dr Cap FEEDTUBE PRN PRN For Clogged Feeding Tube Acyclovir 370 mg/ Sodium 107.4 mls @ 100 mls/hr 07/17/20 12:00 07/23/20 10:39 Chloride IV 100 mls/hr Q12HR ESTELA Administration Protocol Thiamine HCl 100 mg/ Sodium 51 mls @ 100 mls/hr 07/18/20 10:00 07/23/20 10:39 Chloride IV 100 mls/hr QDAY ESTELA Administration Folic Acid 1 mg/ Sodium 50.2 mls @ 200.8 mls/hr 07/18/20 10:00 07/23/20 10:39 Chloride IV 200.8 mls/hr QDAY ESTELA Administration Pantoprazole Sodium 80 mg/ 100 mls @ 10 mls/hr 07/19/20 06:00 07/19/20 06:02 Sodium Chloride IV 8 mg/hr DIRECT ESTELA 10 mls/hr Administration 8 MG/HR Dopamine HCl/Dextrose 800 mg in 250 mls @ 2.807 mls/hr 07/19/20 05:45 07/19/20 05:55 Intropin Drip 800 Mg/D5w 250 Ml IV 20 mcg/kg/min TITR ESTELA 28.066 mls/hr Administration Protocol 2 MCG/KG/MIN Vasopressin 20 unit/ Sodium 101 mls @ 9.09 mls/hr 07/19/20 10:00 07/23/20 11:37 Chloride IV 0.03 units/min TITR ESTELA 9.09 mls/hr Administration Protocol 0.03 UNITS/MIN Norepinephrine 8 mg/ Sodium 250 mls @ 3.75 mls/hr 07/19/20 21:00 07/23/20 16:46 Chloride IV 20 mcg/min TITR ESTELA 37.5 mls/hr Administration Protocol 2 MCG/MIN Phenylephrine HCl 100 mg/ 100 mls @ 3 mls/hr 07/22/20 19:45 Sodium Chloride IV TITR ESTELA Protocol 50 MCG/MIN Vancomycin HCl 1,250 mg/ 275 mls @ 166.667 mls/hr 07/23/20 14:00 07/23/20 14:27 Sodium Chloride IV 166.667 mls/hr Q12H ESTELA Administration Cefepime HCl 2 gm in 100 mls @ 200 mls/hr 07/23/20 14:00 07/23/20 13:37 Cefepime/Ns 2 Gm/100 Ml IV 200 mls/hr Q12H ESTELA Administration Protocol Magnesium Hydroxide 30 ml 07/17/20 03:56 Magnesium Hydroxide (Mom) Oral Liqd Udc PO Q4H PRN Constipation Ondansetron HCl 4 mg 07/17/20 03:56 07/18/20 20:00 Ondansetron 4 Mg/2 Ml Inj IV 4 mg Q8H PRN Administration Nausea And Vomiting Simple Syrup 15 ml 07/23/20 08:37 Simple Syrup 15 Ml FEEDTUBE PRN PRN Hypoglycemia Simple Syrup 30 ml 07/23/20 08:37 Simple Syrup 15 Ml FEEDTUBE PRN PRN Hypoglycemia Sodium Bicarbonate 325 mg 07/23/20 08:37 Sodium Bicarbonate 325 Mg Tab FEEDTUBE PRN PRN For Clogged Feeding Tube Sodium Chloride 10 ml 07/17/20 10:00 07/23/20 10:39 Sodium Chloride 0.9% 10 Ml Flush Syringe IV 10 ml BID ESTELA Administration Sodium Chloride 10 ml 07/17/20 03:56 Sodium Chloride 0.9% 10 Ml Flush Syringe IV PRN PRN LINE FLUSH Nutrition/Malnutrition Assess - Dietary Evaluation Nutrition/Malnutrition Findings: Nutrition Notes Start: 07/23/20 08:22 Freq: Status: Active Protocol: Document 07/23/20 08:22 GLADIS (Rec: 07/23/20 08:36 [id number]) Nutrition Notes Need for Assessment generated from: MD Order Initial or Follow up Assessment Current Diagnosis Acute Kidney Injury,Sepsis, Respiratory Failure Other Pertinent Diagnosis Acute liver failurem UTI, cardiac arrest, ETOH dependence Current Diet No diet Labs/Tests Na 148 BUN 59 Cr 1.5 Phos 4.6 Pertinent Medications D5w 50 ml Norepi 45ml/hr 07/22: Sodium phos 30 mmol Height 5 ft 2 in Weight 76 kg [place] Body Weight (kg) 50.00 BMI 30.6 Weight Status Obese Subjective/Other Information MD order for TF. Pt was intubated on 07/20 after cardiac arrest. Pt has 2+ nonpitting edema on legs and nonpitting on arms and face. Pt with coffee ground emesis this morning. Burn Absent Trauma Absent GI Symptoms Vomiting Current % PO Negligible Minimum of two criteria No Fluid Accumulation Mild (non-severe) #1 Nutrition Diagnosis Inadequate oral intake Etiology acute respiratory failure As Evidenced by Signs and Symptoms pt on vent and unable to comsume PO Is patient on ventilator? Yes Is Patient Ambulatory and/or Out of Bed No REE-([facility]-confined to bed) 1733.676 Kcal/Kg value to use for calculation 19 Approximate Energy Requirements Using 1444 kcal/Kg Calculation Used for Recommendations Kcal/kg Additional Notes Pro: greater than 100g ( greater than 2g/kg IBW) Fluid: 1 ml/kcal Nutrition Intervention Change Diet Order: Start TF when medically able Nutrition Support: Vital AF 1.2 at 50 ml/hr Flush 100 ml q4h Kcal 1,440 Protein (gm) 90 Fluid (mL) 973 Goal #1 TF start/tolernace Goal #2 Meet at least 75% of protein and energy needs via TF Anticipated Discharge Needs: Unable to determine at this time Follow-Up By: 07/25/20 Additional Comments FU for TF start/tolerance
[2020-07-23 17:32] LABS: RBC,Urine > 182.0 /HPF (0.0-6.0)
[2020-07-23 17:51] LABS: Ictotest,Urine Positive (Negative)
[2020-07-23] MEDS: ALBUMIN HUMAN 25% (25 GM/100 ML) INJ IV SCH ×2 (18:11→22:02)
--- NOTE | 2020-07-23 19:29 | Progress Note ---
Assessment and Plan Imp: 1. Acute liver failure of ? etiology 2. RINA 3. Acute respiratory failure, hypoxia 4. S/p CP arrest 5. Encephalopathy, probably anoxic + cerebral edema related to hepatic failure 6. Pulmonary edema versus aspiration pneumonitis 7. Lactic acidosis 8. NAGMA Rec: 1. Avoid all sedation 2. Mentation precludes extubation 3. Wean pressors as tolerated for goal MAP 60-65 or >, Levophed first, then Vasopressin; add Phenylephrine if worsening hypotension occurs 4. Recommend formal neurology evaluation 5. Start TFs + free water 6. SCDs and PPI 7. Needs f/u CT head 8. ABX per ID -> Vanco/Cefipime; repeat blood cultures 9. On Albumin per renal; poor candidate for diuresis due to hypotension 10. Prognosis is dismal; agree with discussing comfort care with family No family present; CCt 31 minutes Subjective Date of service: 07/23/20 Principal diagnosis: Acute Liver Injury Interval history: ACVC 18/450/50%/+6. Unresponsive/comatose. Cannot give history. On Vasopressin and Levophed, the latter of which is now maxed out. Neosynephrine was not added as patient's BP improved with normal saline bolus. Active Medications Acetaminophen (Acetaminophen 325 Mg/10.15 Ml Oral Liqd Unit Dose) 650 mg FEEDTUBE Q6H PRN PRN Reason: Fever >101 Last Admin: 07/23/20 01:05 Dose: 650 mg Documented by: Albumin Human (Albumin Human 25% (25 Gm/100 Ml) Inj) 25 gm IV Q6H ESTELA Stop: 07/24/20 05:01 Last Admin: 07/23/20 18:11 Dose: 25 gm Documented by: Lipase/Protease/Amylase (Lipase 10,500/Protease 25,000/Amylase 43,750 (Units) Dr Sher) 1 each FEEDTUBE PRN PRN PRN Reason: For Clogged Feeding Tube Acyclovir 370 mg/ Sodium (Chloride) 107.4 mls @ 100 mls/hr IV Q12HR [facility]; Protocol Last Admin: 07/23/20 10:39 Dose: 100 mls/hr Documented by: Thiamine HCl 100 mg/ Sodium (Chloride) 51 mls @ 100 mls/hr IV QDAY [facility] Last Admin: 07/23/20 10:39 Dose: 100 mls/hr Documented by: Folic Acid 1 mg/ Sodium (Chloride) 50.2 mls @ 200.8 mls/hr IV QDAY ESTELA Last Admin: 07/23/20 10:39 Dose: 200.8 mls/hr Documented by: Pantoprazole Sodium 80 mg/ (Sodium Chloride) 100 mls @ 10 mls/hr IV DIRECT S CH Last Admin: 07/19/20 06:02 Dose: 8 mg/hr, 10 mls/hr Documented by: Dopamine HCl/Dextrose (Intropin Drip 800 Mg/D5w 250 Ml) 800 mg in 250 mls @ 2.807 mls/hr IV TITR ESTELA; Protocol Last Admin: 07/19/20 05:55 Dose: 20 mcg/kg/min, 28.066 mls/hr Documented by: Vasopressin 20 unit/ Sodium (Chloride) 101 mls @ 9.09 mls/hr IV TITR ESTELA; Protocol Last Admin: 07/23/20 11:37 Dose: 0.03 units/min, 9.09 mls/hr Documented by: Norepinephrine 8 mg/ Sodium (Chloride) 250 mls @ 3.75 mls/hr IV TITR ESTELA; Protocol Last Titration: 07/23/20 18:50 Dose: 16 mcg/min, 30 mls/hr Documented by: Phenylephrine HCl 100 mg/ (Sodium Chloride) 100 mls @ 3 mls/hr IV TITR [facility]; Protocol Vancomycin HCl 1,250 mg/ (Sodium Chloride) 275 mls @ 166.667 mls/hr IV Q12H ESTELA Last Admin: 07/23/20 14:27 Dose: 166.667 mls/hr Documented by: Cefepime HCl (Cefepime/Ns 2 Gm/100 Ml) 2 gm in 100 mls @ 200 mls/hr IV Q12H [facility]; Protocol Last Admin: 07/23/20 13:37 Dose: 200 mls/hr Documented by: Magnesium Hydroxide (Magnesium Hydroxide (Mom) Oral Liqd Udc) 30 ml PO Q4H PRN PRN Reason: Constipation Ondansetron HCl (Ondansetron 4 Mg/2 Ml Inj) 4 mg IV Q8H PRN PRN Reason: Nausea And Vomiting Last Admin: 07/18/20 20:00 Dose: 4 mg Documented by: Simple Syrup (Simple Syrup 15 Ml) 15 ml FEEDTUBE PRN PRN PRN Reason: Hypoglycemia Simple Syrup (Simple Syrup 15 Ml) 30 ml FEEDTUBE PRN PRN PRN Reason: Hypoglycemia Sodium Bicarbonate (Sodium Bicarbonate 325 Mg Tab) 325 mg FEEDTUBE PRN PRN PRN Reason: For Clogged Feeding Tube Sodium Chloride (Sodium Chloride 0.9% 10 Ml Flush Syringe) 10 ml IV BID ESTELA Last Admin: 07/23/20 10:39 Dose: 10 ml Documented by: Sodium Chloride (Sodium Chloride 0.9% 10 Ml Flush Syringe) 10 ml IV PRN PRN PRN Reason: LINE FLUSH Objective Vital Signs - 12hr 07/23/20 07/23/20 07/23/20 07:30 07:41 07:50 Temperature Pulse Rate 123 H 122 H 123 H Pulse Rate [ From Monitor] Respiratory 18 18 18 Rate Blood Pressure 103/49 103/49 104/48 O2 Sat by Pulse 94 95 95 Oximetry 07/23/20 07/23/20 07/23/20 08:00 08:10 08:20 Temperature 100.1 F H Pulse Rate 124 H 122 H 126 H Pulse Rate [ 122 H From Monitor] Respiratory 18 18 18 Rate Blood Pressure 108/50 104/48 118/32 O2 Sat by Pulse 94 95 96 Oximetry 07/23/20 07/23/20 07/23/20 08:30 08:40 08:50 Temperature Pulse Rate 124 H 124 H 123 H Pulse Rate [ From Monitor] Respiratory 18 18 18 Rate Blood Pressure 123/59 118/32 111/52 O2 Sat by Pulse 95 95 94 Oximetry 07/23/20 07/23/20 07/23/20 09:00 09:10 09:15 Temperature Pulse Rate 123 H 121 H 121 H Pulse Rate [ From Monitor] Respiratory 18 18 Rate Blood Pressure 110/51 111/52 110/51 O2 Sat by Pulse 94 95 95 Oximetry 07/23/20 07/23/20 07/23/20 09:20 09:30 09:40 Temperature Pulse Rate 121 H 120 H 120 H Pulse Rate [ From Monitor] Respiratory 18 18 18 Rate Blood Pressure 110/51 110/52 110/51 O2 Sat by Pulse 95 96 96 Oximetry 07/23/20 07/23/20 07/23/20 09:50 10:00 10:10 Temperature Pulse Rate 119 H 118 H 118 H Pulse Rate [ From Monitor] Respiratory 18 18 18 Rate Blood Pressure 114/53 113/54 113/54 O2 Sat by Pulse 97 96 97 Oximetry 07/23/20 07/23/20 07/23/20 10:20 10:30 10:40 Temperature Pulse Rate 118 H 117 H 116 H Pulse Rate [ From Monitor] Respiratory 18 18 18 Rate Blood Pressure 117/60 117/61 117/61 O2 Sat by Pulse 97 95 97 Oximetry 07/23/20 07/23/20 07/23/20 10:50 11:00 11:10 Temperature Pulse Rate 116 H 117 H 117 H Pulse Rate [ From Monitor] Respiratory 18 18 18 Rate Blood Pressure 119/60 111/55 119/60 O2 Sat by Pulse 97 95 96 Oximetry 07/23/20 07/23/20 07/23/20 11:20 11:30 11:40 Temperature Pulse Rate 116 H 117 H 116 H Pulse Rate [ From Monitor] Respiratory 18 18 18 Rate Blood Pressure 118/55 115/54 115/54 O2 Sat by Pulse 97 96 96 Oximetry 07/23/20 07/23/20 07/23/20 11:50 12:00 12:10 Temperature 98.2 F Pulse Rate 117 H 117 H 117 H Pulse Rate [ 117 H From Monitor] Respiratory 18 18 18 Rate Blood Pressure 116/54 116/58 116/58 O2 Sat by Pulse 96 96 97 Oximetry 07/23/20 07/23/20 07/23/20 12:20 12:30 12:40 Temperature Pulse Rate 116 H 116 H 115 H Pulse Rate [ From Monitor] Respiratory 18 18 18 Rate Blood Pressure 123/62 125/62 125/62 O2 Sat by Pulse 97 96 97 Oximetry 07/23/20 07/23/20 07/23/20 12:50 12:52 13:00 Temperature Pulse Rate 114 H 115 H 114 H Pulse Rate [ From Monitor] Respiratory 18 18 Rate Blood Pressure 125/62 125/62 128/62 O2 Sat by Pulse 98 97 96 Oximetry 07/23/20 07/23/20 07/23/20 13:10 13:20 13:30 Temperature Pulse Rate 114 H 113 H 112 H Pulse Rate [ From Monitor] Respiratory 18 18 18 Rate Blood Pressure 128/62 129/65 123/61 O2 Sat by Pulse 97 98 96 Oximetry 07/23/20 07/23/20 07/23/20 13:40 13:50 14:00 Temperature Pulse Rate 113 H 112 H 111 H Pulse Rate [ From Monitor] Respiratory 18 18 18 Rate Blood Pressure 123/61 128/65 120/57 O2 Sat by Pulse 98 98 96 Oximetry 07/23/20 07/23/20 07/23/20 14:10 14:20 14:30 Temperature Pulse Rate 110 H 110 H 109 H Pulse Rate [ From Monitor] Respiratory 18 18 18 Rate Blood Pressure 120/57 126/61 115/58 O2 Sat by Pulse 98 98 97 Oximetry 07/23/20 07/23/20 07/23/20 14:40 14:50 15:00 Temperature Pulse Rate 108 H 108 H 107 H Pulse Rate [ From Monitor] Respiratory 18 18 18 Rate Blood Pressure 115/58 121/62 126/62 O2 Sat by Pulse 98 98 97 Oximetry 07/23/20 07/23/20 07/23/20 15:10 15:20 15:30 Temperature Pulse Rate 106 H 106 H 106 H Pulse Rate [ From Monitor] Respiratory 18 18 18 Rate Blood Pressure 126/62 126/62 128/66 O2 Sat by Pulse 99 99 97 Oximetry 07/23/20 07/23/20 07/23/20 15:40 15:50 16:00 Temperature 98 F Pulse Rate 106 H 106 H 103 H Pulse Rate [ From Monitor] Respiratory 18 18 18 Rate Blood Pressure 128/66 129/63 121/55 O2 Sat by Pulse 99 99 96 Oximetry 07/23/20 07/23/20 07/23/20 16:10 16:20 16:30 Temperature Pulse Rate 103 H 105 H 103 H Pulse Rate [ From Monitor] Respiratory 18 18 20 Rate Blood Pressure 121/55 130/69 113/48 O2 Sat by Pulse 99 99 98 Oximetry 07/23/20 07/23/20 07/23/20 16:40 16:50 16:58 Temperature Pulse Rate 103 H 102 H 102 H Pulse Rate [ From Monitor] Respiratory 18 7 L Rate Blood Pressure 113/48 118/52 124/58 O2 Sat by Pulse 98 98 99 Oximetry 07/23/20 07/23/20 07/23/20 17:00 17:10 17:20 Temperature Pulse Rate 102 H 101 H 102 H Pulse Rate [ From Monitor] Respiratory 18 18 18 Rate Blood Pressure 124/58 124/58 127/68 O2 Sat by Pulse 99 99 99 Oximetry 07/23/20 07/23/20 07/23/20 17:30 17:40 17:50 Temperature Pulse Rate 100 H 101 H 100 H Pulse Rate [ From Monitor] Respiratory 18 18 18 Rate Blood Pressure 128/68 128/68 129/71 O2 Sat by Pulse 99 99 99 Oximetry 07/23/20 07/23/20 07/23/20 18:00 18:10 18:20 Temperature Pulse Rate 101 H 99 H 100 H Pulse Rate [ From Monitor] Respiratory 18 18 18 Rate Blood Pressure 133/78 133/78 117/67 O2 Sat by Pulse 98 100 99 Oximetry 07/23/20 07/23/20 07/23/20 18:30 18:40 18:50 Temperature Pulse Rate 99 H 100 H 99 H Pulse Rate [ From Monitor] Respiratory 18 18 18 Rate Blood Pressure 112/73 112/73 137/83 O2 Sat by Pulse 98 100 100 Oximetry 07/23/20 07/23/20 19:00 19:10 Temperature Pulse Rate 96 H 99 H Pulse Rate [ From Monitor] Respiratory 18 18 Rate Blood Pressure 124/76 124/76 O2 Sat by Pulse 99 100 Oximetry Constitutional: comatose Eyes: icteric ENT: other (orally intubated, no sedation) Neck: supple Effort: normal Ascultation: Bilateral: other (coarse BS bilaterally) Cardiovascular: other (tachy, RR; no mrg) Gastrointestinal: normoactive bowel sounds, soft, non-tender, non-distended Integumentary: normal Extremities: no cyanosis, edema (1+ bilateral LE edema) Neurologic: other (unresponsive) Psychiatric: other (unable to assess) CBC and BMP: 07/23/20 07:39 07/23/20 07:39 ABG, PT/INR, D-dimer: ABG ABG pH 7.313 (7.320-7.450) L 07/23/20 02:51 POC ABG pCO2 43.3 mmHg (32.0-48.0) 07/23/20 02:51 ABG pCO2 31.2 mm Hg 07/22/20 04:25 POC ABG pO2 67.0 mmHg (83-108) L 07/23/20 02:51 ABG pO2 104.9 mm Hg (80.0-90.0) H 07/22/20 04:25 POC ABG HCO3 22.0 07/20/20 10:42 ABG O2 Saturation 98.1 % (95.0-99.0) 07/22/20 04:25 PT/INR, D-dimer PT 21.6 Sec. (12.2-14.9) H 07/22/20 07:57 INR 1.87 (0.87-1.13) H 07/22/20 07:57 Abnormal lab findings: Abnormal Labs 07/16/20 07/16/20 07/16/20 03:54 20:47 20:47 WBC 33.9 H RBC Hgb Hct MCV 107 H MCH 34 H MCHC RDW 22.0 H Plt Count Lymph % (Auto) [place] % (Auto) Lymph # (Auto) [place] # (Auto) Eos # (Auto) Seg Neutrophils % Seg Neuts % (Manual) 89.0 H Lymphocytes % (Manual) 2.0 L Monocytes % (Manual) Nucleated RBC % 1.0 H Seg Neutrophils # Seg Neutrophils # Man 30.2 H Lymphocytes # (Manual) 0.7 L Monocytes # (Manual) 1.4 H Eosinophils # (Manual) PT INR ABG pH POC ABG pCO2 POC ABG pO2 ABG pO2 ABG Base Excess ABG Hemoglobin ABG Oxyhemoglobin ABG Potassium ABG Chloride ABG Glucose VBG pH Oxyhemoglobin Carboxyhemoglobin Sodium Potassium 5.1 H Chloride Carbon Dioxide 9 L* BUN 20 H Creatinine 1.9 H Glucose 30 L* POC Glucose Lactic Acid Calcium Phosphorus Magnesium Total Bilirubin 5.40 H Direct Bilirubin AST 09217 H ALT 1829 H Alkaline Phosphatase 141 H Ammonia Total Creatine Kinase Total Protein Albumin Lipase 9 L Arterial Blood Glucose Arterial Blood Ionized Calcium Urine WBC (Auto) 57.0 H U Epithel Cells (Auto) 23.0 H Acetaminophen Syphilis IgG Antibody HSV I Specific Ab Crossmatch 07/16/20 07/16/20 07/16/20 20:47 22:43 23:06 WBC RBC Hgb Hct MCV MCH MCHC RDW Plt Count Lymph % (Auto) [place] % (Auto) Lymph # (Auto) [place] # (Auto) Eos # (Auto) Seg Neutrophils % Seg Neuts % (Manual) Lymphocytes % (Manual) Monocytes % (Manual) Nucleated RBC % Seg Neutrophils # Seg Neutrophils # Man Lymphocytes # (Manual) Monocytes # (Manual) Eosinophils # (Manual) PT INR ABG pH POC ABG pCO2 POC ABG pO2 ABG pO2 ABG Base Excess ABG Hemoglobin ABG Oxyhemoglobin ABG Potassium ABG Chloride ABG Glucose VBG pH Oxyhemoglobin Carboxyhemoglobin Sodium Potassium Chloride Carbon Dioxide BUN Creatinine Glucose POC Glucose 140 H Lactic Acid 14.90 H* Calcium Phosphorus Magnesium Total Bilirubin Direct Bilirubin AST ALT Alkaline Phosphatase Ammonia Total Creatine Kinase 230 H Total Protein Albumin Lipase Arterial Blood Glucose Arterial Blood Ionized Calcium Urine WBC (Auto) U Epithel Cells (Auto) Acetaminophen Syphilis IgG Antibody HSV I Specific Ab Crossmatch 07/17/20 07/17/20 07/17/20 01:46 01:46 04:55 WBC RBC Hgb Hct MCV MCH MCHC RDW Plt Count Lymph % (Auto) [place] % (Auto) Lymph # (Auto) [place] # (Auto) Eos # (Auto) Seg Neutrophils % Seg Neuts % (Manual) Lymphocytes % (Manual) Monocytes % (Manual) Nucleated RBC % Seg Neutrophils # Seg Neutrophils # Man Lymphocytes # (Manual) Monocytes # (Manual) Eosinophils # (Manual) PT INR ABG pH POC ABG pCO2 POC ABG pO2 ABG pO2 ABG Base Excess ABG Hemoglobin ABG Oxyhemoglobin ABG Potassium ABG Chloride ABG Glucose VBG pH 7.085 L* Oxyhemoglobin Carboxyhemoglobin Sodium Potassium Chloride Carbon Dioxide BUN Creatinine Glucose POC Glucose Lactic Acid 13.20 H* 12.00 H* Calcium Phosphorus Magnesium Total Bilirubin Direct Bilirubin AST ALT Alkaline Phosphatase Ammonia Total Creatine Kinase Total Protein Albumin Lipase Arterial Blood Glucose Arterial Blood Ionized Calcium Urine WBC (Auto) U Epithel Cells (Auto) Acetaminophen Syphilis IgG Antibody HSV I Specific Ab Crossmatch 07/17/20 07/17/20 07/17/20 06:05 07:33 07:48 WBC RBC Hgb Hct MCV MCH MCHC RDW Plt Count Lymph % (Auto) [place] % (Auto) Lymph # (Auto) [place] # (Auto) Eos # (Auto) Seg Neutrophils % Seg Neuts % (Manual) Lymphocytes % (Manual) Monocytes % (Manual) Nucleated RBC % Seg Neutrophils # Seg Neutrophils # Man Lymphocytes # (Manual) Monocytes # (Manual) Eosinophils # (Manual) PT INR ABG pH POC ABG pCO2 POC ABG pO2 ABG pO2 ABG Base Excess ABG Hemoglobin ABG Oxyhemoglobin ABG Potassium ABG Chloride ABG Glucose VBG pH Oxyhemoglobin Carboxyhemoglobin Sodium Potassium Chloride Carbon Dioxide BUN Creatinine Glucose POC Glucose 59 L 125 H Lactic Acid 12.00 H* Calcium Phosphorus Magnesium Total Bilirubin Direct Bilirubin AST ALT Alkaline Phosphatase Ammonia Total Creatine Kinase Total Protein Albumin Lipase Arterial Blood Glucose Arterial Blood Ionized Calcium Urine WBC (Auto) U Epithel Cells (Auto) Acetaminophen Syphilis IgG Antibody HSV I Specific Ab Crossmatch 07/17/20 07/17/20 07/17/20 09:23 09:23 09:24 WBC RBC Hgb Hct MCV MCH MCHC RDW Plt Count Lymph % (Auto) [place] % (Auto) Lymph # (Auto) [place] # (Auto) Eos # (Auto) Seg Neutrophils % Seg Neuts % (Manual) Lymphocytes % (Manual) Monocytes % (Manual) Nucleated RBC % Seg Neutrophils # Seg Neutrophils # Man Lymphocytes # (Manual) Monocytes # (Manual) Eosinophils # (Manual) PT INR ABG pH POC ABG pCO2 POC ABG pO2 ABG pO2 ABG Base Excess ABG Hemoglobin ABG Oxyhemoglobin ABG Potassium ABG Chloride ABG Glucose VBG pH Oxyhemoglobin Carboxyhemoglobin Sodium Potassium 5.7 H Chloride 107.6 H Carbon Dioxide 13 L BUN 24 H Creatinine 2.1 H Glucose 121 H POC Glucose Lactic Acid Calcium 6.0 L D Phosphorus Magnesium Total Bilirubin 3.80 H Direct Bilirubin AST 8355 H ALT 1522 H Alkaline Phosphatase Ammonia Total Creatine Kinase 332 H Total Protein 4.7 L D Albumin 2.8 L Lipase Arterial Blood Glucose Arterial Blood Ionized Calcium Urine WBC (Auto) U Epithel Cells (Auto) Acetaminophen 5.0 L Syphilis IgG Antibody HSV I Specific Ab Crossmatch 07/17/20 07/17/20 07/17/20 11:08 11:08 11:08 WBC RBC Hgb Hct MCV MCH MCHC RDW Plt Count Lymph % (Auto) [place] % (Auto) Lymph # (Auto) [place] # (Auto) Eos # (Auto) Seg Neutrophils % Seg Neuts % (Manual) Lymphocytes % (Manual) Monocytes % (Manual) Nucleated RBC % Seg Neutrophils # Seg Neutrophils # Man Lymphocytes # (Manual) Monocytes # (Manual) Eosinophils # (Manual) PT 60.1 H INR > 17.67 H* ABG pH POC ABG pCO2 POC ABG pO2 ABG pO2 ABG Base Excess ABG Hemoglobin ABG Oxyhemoglobin ABG Potassium ABG Chloride ABG Glucose VBG pH Oxyhemoglobin Carboxyhemoglobin Sodium Potassium Chloride Carbon Dioxide BUN Creatinine Glucose POC Glucose Lactic Acid 9.80 H* Calcium Phosphorus Magnesium Total Bilirubin Direct Bilirubin AST ALT Alkaline Phosphatase Ammonia Total Creatine Kinase Total Protein Albumin Lipase Arterial Blood Glucose Arterial Blood Ionized Calcium Urine WBC (Auto) U Epithel Cells (Auto) Acetaminophen Syphilis IgG Antibody Reactive A HSV I Specific Ab Crossmatch 07/17/20 07/17/20 07/17/20 11:08 14:34 14:34 WBC 27.2 H RBC 2.66 L Hgb 9.1 L D Hct 27.8 L D MCV 104 H MCH 34 H MCHC RDW 22.6 H Plt Count Lymph % (Auto) [place] % (Auto) Lymph # (Auto) [place] # (Auto) Eos # (Auto) Seg Neutrophils % Seg Neuts % (Manual) Lymphocytes % (Manual) Monocytes % (Manual) Nucleated RBC % Seg Neutrophils # Seg Neutrophils # Man Lymphocytes # (Manual) Monocytes # (Manual) Eosinophils # (Manual) PT INR ABG pH POC ABG pCO2 POC ABG pO2 ABG pO2 ABG Base Excess ABG Hemoglobin ABG Oxyhemoglobin ABG Potassium ABG Chloride ABG Glucose VBG pH Oxyhemoglobin Carboxyhemoglobin Sodium Potassium 5.4 H Chloride 107.7 H Carbon Dioxide 16 L BUN 26 H Creatinine 2.3 H Glucose 151 H POC Glucose Lactic Acid Calcium 5.8 L* Phosphorus Magnesium Total Bilirubin 3.30 H Direct Bilirubin AST 6751 H ALT 1325 H Alkaline Phosphatase Ammonia Total Creatine Kinase Total Protein 4.4 L Albumin 2.5 L Lipase Arterial Blood Glucose Arterial Blood Ionized Calcium Urine WBC (Auto) U Epithel Cells (Auto) Acetaminophen Syphilis IgG Antibody HSV I Specific Ab 5.23 H Crossmatch 07/17/20 07/17/20 07/17/20 14:34 14:34 14:34 WBC RBC Hgb Hct MCV MCH MCHC RDW Plt Count Lymph % (Auto) [place] % (Auto) Lymph # (Auto) [place] # (Auto) Eos # (Auto) Seg Neutrophils % Seg Neuts % (Manual) Lymphocytes % (Manual) Monocytes % (Manual) Nucleated RBC % Seg Neutrophils # Seg Neutrophils # Man Lymphocytes # (Manual) Monocytes # (Manual) Eosinophils # (Manual) PT 70.6 H INR 8.29 H* ABG pH POC ABG pCO2 POC ABG pO2 ABG pO2 ABG Base Excess ABG Hemoglobin ABG Oxyhemoglobin ABG Potassium ABG Chloride ABG Glucose VBG pH Oxyhemoglobin Carboxyhemoglobin Sodium Potassium Chloride Carbon Dioxide BUN Creatinine Glucose POC Glucose Lactic Acid 7.60 H* Calcium Phosphorus Magnesium Total Bilirubin Direct Bilirubin AST ALT Alkaline Phosphatase Ammonia 75.0 H Total Creatine Kinase Total Protein Albumin Lipase Arterial Blood Glucose Arterial Blood Ionized Calcium Urine WBC (Auto) U Epithel Cells (Auto) Acetaminophen Syphilis IgG Antibody HSV I Specific Ab Crossmatch 07/17/20 07/17/20 07/18/20 16:45 16:45 04:23 WBC 22.7 H RBC 2.47 L Hgb 8.5 L Hct 25.5 L MCV 103 H MCH 35 H MCHC RDW 21.7 H Plt Count Lymph % (Auto) 5.3 L [place] % (Auto) Lymph # (Auto) [place] # (Auto) Eos # (Auto) 0.7 H Seg Neutrophils % 88.2 H Seg Neuts % (Manual) Lymphocytes % (Manual) Monocytes % (Manual) Nucleated RBC % Seg Neutrophils # 20.0 H Seg Neutrophils # Man Lymphocytes # (Manual) Monocytes # (Manual) Eosinophils # (Manual) PT INR ABG pH POC ABG pCO2 POC ABG pO2 ABG pO2 ABG Base Excess ABG Hemoglobin ABG Oxyhemoglobin ABG Potassium ABG Chloride ABG Glucose VBG pH Oxyhemoglobin Carboxyhemoglobin Sodium Potassium Chloride 107.9 H Carbon Dioxide 17 L BUN 27 H Creatinine 2.5 H Glucose 144 H POC Glucose Lactic Acid 7.00 H* Calcium 6.0 L Phosphorus Magnesium Total Bilirubin 3.30 H Direct Bilirubin AST 6456 H ALT 1286 H Alkaline Phosphatase Ammonia Total Creatine Kinase Total Protein 4.2 L Albumin 2.5 L Lipase Arterial Blood Glucose Arterial Blood Ionized Calcium Urine WBC (Auto) U Epithel Cells (Auto) Acetaminophen Syphilis IgG Antibody HSV I Specific Ab Crossmatch 07/18/20 07/18/20 07/18/20 04:23 04:23 04:23 WBC RBC Hgb Hct MCV MCH MCHC RDW Plt Count Lymph % (Auto) [place] % (Auto) Lymph # (Auto) [place] # (Auto) Eos # (Auto) Seg Neutrophils % Seg Neuts % (Manual) Lymphocytes % (Manual) Monocytes % (Manual) Nucleated RBC % Seg Neutrophils # Seg Neutrophils # Man Lymphocytes # (Manual) Monocytes # (Manual) Eosinophils # (Manual) PT 52.9 H INR 5.78 H* ABG pH POC ABG pCO2 POC ABG pO2 ABG pO2 ABG Base Excess ABG Hemoglobin ABG Oxyhemoglobin ABG Potassium ABG Chloride ABG Glucose VBG pH Oxyhemoglobin Carboxyhemoglobin Sodium Potassium Chloride 110.0 H Carbon Dioxide 17 L BUN 33 H Creatinine 3.0 H Glucose 110 H POC Glucose Lactic Acid 5.40 H* Calcium 6.4 L Phosphorus Magnesium Total Bilirubin Direct Bilirubin AST ALT Alkaline Phosphatase Ammonia Total Creatine Kinase Total Protein Albumin Lipase Arterial Blood Glucose Arterial Blood Ionized Calcium Urine WBC (Auto) U Epithel Cells (Auto) Acetaminophen Syphilis IgG Antibody HSV I Specific Ab Crossmatch 07/18/20 07/18/20 07/18/20 04:23 07:25 Unknown WBC RBC Hgb Hct MCV MCH MCHC RDW Plt Count Lymph % (Auto) [place] % (Auto) Lymph # (Auto) [place] # (Auto) Eos # (Auto) Seg Neutrophils % Seg Neuts % (Manual) Lymphocytes % (Manual) Monocytes % (Manual) Nucleated RBC % Seg Neutrophils # Seg Neutrophils # Man Lymphocytes # (Manual) Monocytes # (Manual) Eosinophils # (Manual) PT INR ABG pH POC ABG pCO2 POC ABG pO2 ABG pO2 ABG Base Excess ABG Hemoglobin ABG Oxyhemoglobin ABG Potassium ABG Chloride ABG Glucose VBG pH Oxyhemoglobin Carboxyhemoglobin Sodium Potassium Chloride Carbon Dioxide BUN Creatinine Glucose POC Glucose Lactic Acid 5.50 H* 4.80 H* Calcium Phosphorus Magnesium Total Bilirubin Direct Bilirubin AST ALT Alkaline Phosphatase Ammonia 96.0 H Total Creatine Kinase Total Protein Albumin Lipase Arterial Blood Glucose Arterial Blood Ionized Calcium Urine WBC (Auto) U Epithel Cells (Auto) Acetaminophen Syphilis IgG Antibody HSV I Specific Ab Crossmatch 07/18/20 07/18/20 07/19/20 Unknown Unknown 02:47 WBC RBC Hgb Hct MCV MCH MCHC RDW Plt Count Lymph % (Auto) [place] % (Auto) Lymph # (Auto) [place] # (Auto) Eos # (Auto) Seg Neutrophils % Seg Neuts % (Manual) Lymphocytes % (Manual) Monocytes % (Manual) Nucleated RBC % Seg Neutrophils # Seg Neutrophils # Man Lymphocytes # (Manual) Monocytes # (Manual) Eosinophils # (Manual) PT 37.3 H INR 3.73 H ABG pH POC ABG pCO2 21.1 L POC ABG pO2 61.7 L ABG pO2 ABG Base Excess ABG Hemoglobin 8.5 L ABG Oxyhemoglobin 88.1 L ABG Potassium ABG Chloride 119.0 H ABG Glucose VBG pH Oxyhemoglobin Carboxyhemoglobin Sodium Potassium Chloride Carbon Dioxide BUN Creatinine Glucose POC Glucose Lactic Acid Calcium Phosphorus Magnesium Total Bilirubin 3.70 H Direct Bilirubin 3.0 H AST 2093 H ALT 822 H Alkaline Phosphatase Ammonia Total Creatine Kinase Total Protein 4.0 L Albumin 2.5 L Lipase Arterial Blood Glucose Arterial Blood Ionized Calcium 4.0 L Urine WBC (Auto) U Epithel Cells (Auto) Acetaminophen Syphilis IgG Antibody HSV I Specific Ab Crossmatch 07/19/20 07/19/20 07/19/20 03:01 03:01 03:01 WBC 19.4 H RBC 2.50 L Hgb 8.5 L Hct 26.1 L MCV 104 H MCH 34 H MCHC RDW 22.3 H Plt Count Lymph % (Auto) 3.7 L [place] % (Auto) Lymph # (Auto) 0.7 L [place] # (Auto) 0.9 H Eos # (Auto) Seg Neutrophils % Seg Neuts % (Manual) Lymphocytes % (Manual) Monocytes % (Manual) Nucleated RBC % Seg Neutrophils # 17.7 H Seg Neutrophils # Man Lymphocytes # (Manual) Monocytes # (Manual) Eosinophils # (Manual) PT 35.0 H INR 3.45 H ABG pH POC ABG pCO2 POC ABG pO2 ABG pO2 ABG Base Excess ABG Hemoglobin ABG Oxyhemoglobin ABG Potassium ABG Chloride ABG Glucose VBG pH Oxyhemoglobin Carboxyhemoglobin Sodium Potassium Chloride Carbon Dioxide BUN Creatinine Glucose POC Glucose Lactic Acid 5.90 H* Calcium Phosphorus Magnesium Total Bilirubin Direct Bilirubin AST ALT Alkaline Phosphatase Ammonia Total Creatine Kinase Total Protein Albumin Lipase Arterial Blood Glucose Arterial Blood Ionized Calcium Urine WBC (Auto) U Epithel Cells (Auto) Acetaminophen Syphilis IgG Antibody HSV I Specific Ab Crossmatch 07/19/20 07/19/20 07/19/20 03:01 03:01 05:25 WBC RBC Hgb Hct MCV MCH MCHC RDW Plt Count Lymph % (Auto) [place] % (Auto) Lymph # (Auto) [place] # (Auto) Eos # (Auto) Seg Neutrophils % Seg Neuts % (Manual) Lymphocytes % (Manual) Monocytes % (Manual) Nucleated RBC % Seg Neutrophils # Seg Neutrophils # Man Lymphocytes # (Manual) Monocytes # (Manual) Eosinophils # (Manual) PT INR ABG pH POC ABG pCO2 POC ABG pO2 ABG pO2 ABG Base Excess ABG Hemoglobin ABG Oxyhemoglobin ABG Potassium ABG Chloride ABG Glucose VBG pH Oxyhemoglobin Carboxyhemoglobin Sodium 149 H Potassium Chloride 116.6 H Carbon Dioxide 14 L BUN 48 H Creatinine 2.5 H Glucose POC Glucose 43 L Lactic Acid Calcium 7.4 L D Phosphorus Magnesium Total Bilirubin 3.70 H Direct Bilirubin AST 1730 H ALT 751 H Alkaline Phosphatase Ammonia 126.0 H Total Creatine Kinase Total Protein 4.3 L Albumin 2.4 L Lipase Arterial Blood Glucose Arterial Blood Ionized Calcium Urine WBC (Auto) U Epithel Cells (Auto) Acetaminophen Syphilis IgG Antibody HSV I Specific Ab Crossmatch 07/19/20 07/19/20 07/19/20 05:41 05:41 05:41 WBC 15.9 H RBC 1.80 L Hgb 6.2 L Hct 19.7 L* D MCV 109 H MCH 35 H MCHC RDW 22.7 H Plt Count 99 L Lymph % (Auto) 9.7 L [place] % (Auto) 8.3 H Lymph # (Auto) [place] # (Auto) 1.3 H Eos # (Auto) Seg Neutrophils % 81.2 H Seg Neuts % (Manual) 85.0 H Lymphocytes % (Manual) 12.0 L Monocytes % (Manual) Nucleated RBC % Seg Neutrophils # 12.9 H Seg Neutrophils # Man 13.5 H Lymphocytes # (Manual) Monocytes # (Manual) Eosinophils # (Manual) PT 51.8 H INR 5.63 H* ABG pH POC ABG pCO2 POC ABG pO2 ABG pO2 ABG Base Excess ABG Hemoglobin ABG Oxyhemoglobin ABG Potassium ABG Chloride ABG Glucose VBG pH Oxyhemoglobin Carboxyhemoglobin Sodium 150 H Potassium Chloride 117.6 H Carbon Dioxide 10 L BUN 50 H Creatinine 2.8 H Glucose 308 H POC Glucose Lactic Acid Calcium 6.8 L Phosphorus Magnesium Total Bilirubin 2.20 H Direct Bilirubin AST 1224 H ALT 484 H Alkaline Phosphatase Ammonia Total Creatine Kinase Total Protein 2.8 L D Albumin 1.6 L Lipase Arterial Blood Glucose Arterial Blood Ionized Calcium Urine WBC (Auto) U Epithel Cells (Auto) Acetaminophen Syphilis IgG Antibody HSV I Specific Ab Crossmatch 07/19/20 07/19/20 07/19/20 05:41 05:41 05:53 WBC RBC Hgb Hct MCV MCH MCHC RDW Plt Count Lymph % (Auto) [place] % (Auto) Lymph # (Auto) [place] # (Auto) Eos # (Auto) Seg Neutrophils % Seg Neuts % (Manual) Lymphocytes % (Manual) Monocytes % (Manual) Nucleated RBC % Seg Neutrophils # Seg Neutrophils # Man Lymphocytes # (Manual) Monocytes # (Manual) Eosinophils # (Manual) PT INR ABG pH POC ABG pCO2 POC ABG pO2 ABG pO2 ABG Base Excess ABG Hemoglobin ABG Oxyhemoglobin ABG Potassium ABG Chloride ABG Glucose VBG pH Oxyhemoglobin Carboxyhemoglobin Sodium Potassium Chloride Carbon Dioxide BUN Creatinine Glucose POC Glucose 186 H Lactic Acid 12.00 H* Calcium Phosphorus Magnesium Total Bilirubin Direct Bilirubin AST ALT Alkaline Phosphatase Ammonia 96.0 H Total Creatine Kinase Total Protein Albumin Lipase Arterial Blood Glucose Arterial Blood Ionized Calcium Urine WBC (Auto) U Epithel Cells (Auto) Acetaminophen Syphilis IgG Antibody HSV I Specific Ab Crossmatch 07/19/20 07/19/20 07/19/20 06:14 07:35 07:35 WBC RBC Hgb Hct MCV MCH MCHC RDW Plt Count Lymph % (Auto) [place] % (Auto) Lymph # (Auto) [place] # (Auto) Eos # (Auto) Seg Neutrophils % Seg Neuts % (Manual) Lymphocytes % (Manual) Monocytes % (Manual) Nucleated RBC % Seg Neutrophils # Seg Neutrophils # Man Lymphocytes # (Manual) Monocytes # (Manual) Eosinophils # (Manual) PT INR ABG pH 6.904 L POC ABG pCO2 50.8 H POC ABG pO2 140.1 H ABG pO2 ABG Base Excess ABG Hemoglobin 7.9 L ABG Oxyhemoglobin ABG Potassium ABG Chloride 120.0 H ABG Glucose 220 H VBG pH Oxyhemoglobin Carboxyhemoglobin 1.7 H Sodium Potassium Chloride Carbon Dioxide BUN Creatinine Glucose POC Glucose Lactic Acid 8.50 H* Calcium Phosphorus Magnesium Total Bilirubin Direct Bilirubin AST ALT Alkaline Phosphatase Ammonia Total Creatine Kinase Total Protein Albumin Lipase Arterial Blood Glucose 220 H Arterial Blood Ionized Calcium 4.1 L Urine WBC (Auto) U Epithel Cells (Auto) Acetaminophen Syphilis IgG Antibody HSV I Specific Ab Crossmatch See Detail 07/19/20 07/19/20 07/19/20 12:45 22:54 Unknown WBC 26.7 H RBC 2.68 L Hgb 9.0 L Hct 26.8 L D MCV 100 H MCH 34 H MCHC RDW 20.2 H Plt Count 104 L Lymph % (Auto) [place] % (Auto) Lymph # (Auto) [place] # (Auto) Eos # (Auto) Seg Neutrophils % Seg Neuts % (Manual) Lymphocytes % (Manual) 6.0 L Monocytes % (Manual) 8.0 H Nucleated RBC % Seg Neutrophils # Seg Neutrophils # Man 17.6 H Lymphocytes # (Manual) Monocytes # (Manual) 2.1 H Eosinophils # (Manual) PT INR ABG pH POC ABG pCO2 POC ABG pO2 ABG pO2 ABG Base Excess ABG Hemoglobin ABG Oxyhemoglobin ABG Potassium ABG Chloride ABG Glucose VBG pH Oxyhemoglobin Carboxyhemoglobin Sodium Potassium Chloride Carbon Dioxide BUN Creatinine Glucose POC Glucose 121 H Lactic Acid 6.20 H* Calcium Phosphorus Magnesium Total Bilirubin Direct Bilirubin AST ALT Alkaline Phosphatase Ammonia Total Creatine Kinase Total Protein Albumin Lipase Arterial Blood Glucose Arterial Blood Ionized Calcium Urine WBC (Auto) U Epithel Cells (Auto) Acetaminophen Syphilis IgG Antibody HSV I Specific Ab Crossmatch 07/19/20 07/19/20 07/19/20 Unknown Unknown Unknown WBC RBC Hgb Hct MCV MCH MCHC RDW Plt Count Lymph % (Auto) [place] % (Auto) Lymph # (Auto) [place] # (Auto) Eos # (Auto) Seg Neutrophils % Seg Neuts % (Manual) Lymphocytes % (Manual) Monocytes % (Manual) Nucleated RBC % Seg Neutrophils # Seg Neutrophils # Man Lymphocytes # (Manual) Monocytes # (Manual) Eosinophils # (Manual) PT 33.4 H INR 3.25 H ABG pH POC ABG pCO2 POC ABG pO2 ABG pO2 ABG Base Excess ABG Hemoglobin ABG Oxyhemoglobin ABG Potassium ABG Chloride ABG Glucose VBG pH Oxyhemoglobin Carboxyhemoglobin Sodium 148 H Potassium 2.6 L* D Chloride 117.3 H Carbon Dioxide 18 L D BUN 48 H Creatinine 2.4 H Glucose 207 H POC Glucose Lactic Acid 3.90 H* Calcium 6.5 L Phosphorus Magnesium Total Bilirubin 3.80 H Direct Bilirubin AST 1228 H ALT 516 H Alkaline Phosphatase Ammonia Total Creatine Kinase Total Protein 3.6 L D Albumin 1.9 L Lipase Arterial Blood Glucose Arterial Blood Ionized Calcium Urine WBC (Auto) U Epithel Cells (Auto) Acetaminophen Syphilis IgG Antibody HSV I Specific Ab Crossmatch 07/20/20 07/20/20 07/20/20 02:41 05:04 06:39 WBC RBC Hgb Hct MCV MCH MCHC RDW Plt Count Lymph % (Auto) [place] % (Auto) Lymph # (Auto) [place] # (Auto) Eos # (Auto) Seg Neutrophils % Seg Neuts % (Manual) Lymphocytes % (Manual) Monocytes % (Manual) Nucleated RBC % Seg Neutrophils # Seg Neutrophils # Man Lymphocytes # (Manual) Monocytes # (Manual) Eosinophils # (Manual) PT INR ABG pH POC ABG pCO2 POC ABG pO2 64.7 L ABG pO2 ABG Base Excess ABG Hemoglobin 8.8 L ABG Oxyhemoglobin 91.0 L ABG Potassium 2.6 L ABG Chloride 116.0 H ABG Glucose 143 H VBG pH Oxyhemoglobin Carboxyhemoglobin 2.0 H Sodium Potassium Chloride Carbon Dioxide BUN Creatinine Glucose POC Glucose 141 H 123 H Lactic Acid Calcium Phosphorus Magnesium Total Bilirubin Direct Bilirubin AST ALT Alkaline Phosphatase Ammonia Total Creatine Kinase Total Protein Albumin Lipase Arterial Blood Glucose 143 H Arterial Blood Ionized Calcium 3.9 L Urine WBC (Auto) U Epithel Cells (Auto) Acetaminophen Syphilis IgG Antibody HSV I Specific Ab Crossmatch 07/20/20 07/20/20 07/20/20 10:42 11:07 11:07 WBC 27.7 H RBC 2.50 L Hgb 8.4 L Hct 24.4 L MCV 98 H MCH 34 H MCHC 35 H RDW 19.8 H Plt Count 78 L Lymph % (Auto) [place] % (Auto) Lymph # (Auto) [place] # (Auto) Eos # (Auto) Seg Neutrophils % Seg Neuts % (Manual) Lymphocytes % (Manual) Monocytes % (Manual) Nucleated RBC % Seg Neutrophils # Seg Neutrophils # Man Lymphocytes # (Manual) Monocytes # (Manual) Eosinophils # (Manual) PT INR ABG pH POC ABG pCO2 POC ABG pO2 113.1 H ABG pO2 ABG Base Excess ABG Hemoglobin 8.8 L ABG Oxyhemoglobin ABG Potassium 2.9 L ABG Chloride 114.0 H ABG Glucose 135 H VBG pH Oxyhemoglobin Carboxyhemoglobin 1.9 H Sodium 147 H Potassium Chloride 114.2 H Carbon Dioxide BUN 52 H Creatinine 1.8 H Glucose 143 H POC Glucose Lactic Acid Calcium 6.5 L Phosphorus Magnesium Total Bilirubin Direct Bilirubin AST ALT Alkaline Phosphatase Ammonia Total Creatine Kinase Total Protein Albumin Lipase Arterial Blood Glucose 135 H Arterial Blood Ionized Calcium 3.8 L Urine WBC (Auto) U Epithel Cells (Auto) Acetaminophen Syphilis IgG Antibody HSV I Specific Ab Crossmatch 07/20/20 07/21/20 07/21/20 15:05 00:03 02:07 WBC RBC Hgb Hct MCV MCH MCHC RDW Plt Count Lymph % (Auto) [place] % (Auto) Lymph # (Auto) [place] # (Auto) Eos # (Auto) Seg Neutrophils % Seg Neuts % (Manual) Lymphocytes % (Manual) Monocytes % (Manual) Nucleated RBC % Seg Neutrophils # Seg Neutrophils # Man Lymphocytes # (Manual) Monocytes # (Manual) Eosinophils # (Manual) PT INR ABG pH POC ABG pCO2 POC ABG pO2 ABG pO2 ABG Base Excess ABG Hemoglobin ABG Oxyhemoglobin ABG Potassium ABG Chloride ABG Glucose VBG pH Oxyhemoglobin Carboxyhemoglobin Sodium 146 H Potassium 2.8 L* 3.1 L Chloride 112.1 H Carbon Dioxide BUN 54 H Creatinine 1.9 H Glucose 107 H POC Glucose 145 H Lactic Acid Calcium 6.8 L Phosphorus Magnesium 0.90 L* Total Bilirubin Direct Bilirubin AST ALT Alkaline Phosphatase Ammonia Total Creatine Kinase Total Protein Albumin Lipase Arterial Blood Glucose Arterial Blood Ionized Calcium Urine WBC (Auto) U Epithel Cells (Auto) Acetaminophen Syphilis IgG Antibody HSV I Specific Ab Crossmatch 07/21/20 07/21/20 07/21/20 03:42 05:21 10:59 WBC RBC Hgb Hct MCV MCH MCHC RDW Plt Count Lymph % (Auto) [place] % (Auto) Lymph # (Auto) [place] # (Auto) Eos # (Auto) Seg Neutrophils % Seg Neuts % (Manual) Lymphocytes % (Manual) Monocytes % (Manual) Nucleated RBC % Seg Neutrophils # Seg Neutrophils # Man Lymphocytes # (Manual) Monocytes # (Manual) Eosinophils # (Manual) PT INR ABG pH POC ABG pCO2 POC ABG pO2 ABG pO2 98.2 H ABG Base Excess -3.8 L ABG Hemoglobin 8.7 L ABG Oxyhemoglobin ABG Potassium ABG Chloride ABG Glucose VBG pH Oxyhemoglobin 94.6 L Carboxyhemoglobin Sodium Potassium Chloride Carbon Dioxide BUN Creatinine Glucose POC Glucose 150 H 161 H Lactic Acid Calcium Phosphorus Magnesium Total Bilirubin Direct Bilirubin AST ALT Alkaline Phosphatase Ammonia Total Creatine Kinase Total Protein Albumin Lipase Arterial Blood Glucose Arterial Blood Ionized Calcium Urine WBC (Auto) U Epithel Cells (Auto) Acetaminophen Syphilis IgG Antibody HSV I Specific Ab Crossmatch 07/21/20 07/21/20 07/21/20 13:59 16:14 17:22 WBC RBC Hgb Hct MCV MCH MCHC RDW Plt Count Lymph % (Auto) [place] % (Auto) Lymph # (Auto) [place] # (Auto) Eos # (Auto) Seg Neutrophils % Seg Neuts % (Manual) Lymphocytes % (Manual) Monocytes % (Manual) Nucleated RBC % Seg Neutrophils # Seg Neutrophils # Man Lymphocytes # (Manual) Monocytes # (Manual) Eosinophils # (Manual) PT INR ABG pH POC ABG pCO2 POC ABG pO2 ABG pO2 ABG Base Excess ABG Hemoglobin ABG Oxyhemoglobin ABG Potassium ABG Chloride ABG Glucose VBG pH Oxyhemoglobin Carboxyhemoglobin Sodium Potassium 3.0 L Chloride 112.5 H Carbon Dioxide 16 L D BUN 48 H Creatinine Glucose 157 H POC Glucose 164 H 171 H Lactic Acid Calcium 7.3 L Phosphorus Magnesium Total Bilirubin Direct Bilirubin AST ALT Alkaline Phosphatase Ammonia Total Creatine Kinase Total Protein Albumin Lipase Arterial Blood Glucose Arterial Blood Ionized Calcium Urine WBC (Auto) U Epithel Cells (Auto) Acetaminophen Syphilis IgG Antibody HSV I Specific Ab Crossmatch 07/21/20 07/22/20 07/22/20 20:06 04:25 07:57 WBC 28.9 H RBC 2.35 L Hgb 8.0 L Hct 22.2 L MCV MCH 34 H MCHC 36 H RDW 20.5 H Plt Count 41 L Lymph % (Auto) [place] % (Auto) Lymph # (Auto) [place] # (Auto) Eos # (Auto) Seg Neutrophils % Seg Neuts % (Manual) 83.0 H Lymphocytes % (Manual) 6.0 L Monocytes % (Manual) Nucleated RBC % 2.0 H Seg Neutrophils # Seg Neutrophils # Man 24.0 H Lymphocytes # (Manual) Monocytes # (Manual) 1.4 H Eosinophils # (Manual) 0.6 H PT INR ABG pH 7.500 H POC ABG pCO2 POC ABG pO2 ABG pO2 104.9 H ABG Base Excess ABG Hemoglobin 8.6 L ABG Oxyhemoglobin ABG Potassium ABG Chloride ABG Glucose VBG pH Oxyhemoglobin Carboxyhemoglobin Sodium Potassium Chloride Carbon Dioxide BUN Creatinine Glucose POC Glucose 128 H Lactic Acid Calcium Phosphorus Magnesium Total Bilirubin Direct Bilirubin AST ALT Alkaline Phosphatase Ammonia Total Creatine Kinase Total Protein Albumin Lipase Arterial Blood Glucose Arterial Blood Ionized Calcium Urine WBC (Auto) U Epithel Cells (Auto) Acetaminophen Syphilis IgG Antibody HSV I Specific Ab Crossmatch 07/22/20 07/22/20 07/22/20 07:57 07:57 12:08 WBC RBC Hgb Hct MCV MCH MCHC RDW Plt Count Lymph % (Auto) [place] % (Auto) Lymph # (Auto) [place] # (Auto) Eos # (Auto) Seg Neutrophils % Seg Neuts % (Manual) Lymphocytes % (Manual) Monocytes % (Manual) Nucleated RBC % Seg Neutrophils # Seg Neutrophils # Man Lymphocytes # (Manual) Monocytes # (Manual) Eosinophils # (Manual) PT 21.6 H INR 1.87 H ABG pH POC ABG pCO2 POC ABG pO2 ABG pO2 ABG Base Excess ABG Hemoglobin ABG Oxyhemoglobin ABG Potassium ABG Chloride ABG Glucose VBG pH Oxyhemoglobin Carboxyhemoglobin Sodium 147 H D Potassium 2.6 L* Chloride 112.7 H Carbon Dioxide BUN 51 H Creatinine Glucose 104 H POC Glucose Lactic Acid Calcium 7.8 L Phosphorus 1.10 L Magnesium 1.50 L Total Bilirubin 9.80 H 11.10 H Direct Bilirubin 8.8 H AST 234 H 231 H ALT 297 H 286 H Alkaline Phosphatase 296 H 323 H Ammonia Total Creatine Kinase Total Protein 4.1 L 3.6 L Albumin 1.8 L 2.0 L Lipase Arterial Blood Glucose Arterial Blood Ionized Calcium Urine WBC (Auto) U Epithel Cells (Auto) Acetaminophen Syphilis IgG Antibody HSV I Specific Ab Crossmatch 07/23/20 07/23/20 07/23/20 01:53 02:51 07:38 WBC RBC Hgb Hct MCV MCH MCHC RDW Plt Count Lymph % (Auto) [place] % (Auto) Lymph # (Auto) [place] # (Auto) Eos # (Auto) Seg Neutrophils % Seg Neuts % (Manual) Lymphocytes % (Manual) Monocytes % (Manual) Nucleated RBC % Seg Neutrophils # Seg Neutrophils # Man Lymphocytes # (Manual) Monocytes # (Manual) Eosinophils # (Manual) PT INR ABG pH 7.313 L POC ABG pCO2 POC ABG pO2 67.0 L ABG pO2 ABG Base Excess ABG Hemoglobin ABG Oxyhemoglobin ABG Potassium 3.2 L ABG Chloride 115.0 H ABG Glucose VBG pH Oxyhemoglobin Carboxyhemoglobin Sodium Potassium Chloride Carbon Dioxide BUN Creatinine Glucose POC Glucose 64 L 62 L Lactic Acid Calcium Phosphorus Magnesium Total Bilirubin Direct Bilirubin AST ALT Alkaline Phosphatase Ammonia Total Creatine Kinase Total Protein Albumin Lipase Arterial Blood Glucose Arterial Blood Ionized Calcium 4.3 L Urine WBC (Auto) U Epithel Cells (Auto) Acetaminophen Syphilis IgG Antibody HSV I Specific Ab Crossmatch 07/23/20 07/23/20 07/23/20 07:39 07:39 Unknown WBC 37.0 H RBC 2.30 L Hgb 7.8 L Hct 22.5 L MCV 98 H MCH 34 H MCHC 35 H RDW 21.3 H Plt Count 55 L Lymph % (Auto) [place] % (Auto) Lymph # (Auto) [place] # (Auto) Eos # (Auto) Seg Neutrophils % Seg Neuts % (Manual) 78.0 H Lymphocytes % (Manual) 10.0 L Monocytes % (Manual) Nucleated RBC % 3.0 H Seg Neutrophils # Seg Neutrophils # Man 28.9 H Lymphocytes # (Manual) Monocytes # (Manual) 1.1 H Eosinophils # (Manual) 0.7 H PT INR ABG pH POC ABG pCO2 POC ABG pO2 ABG pO2 ABG Base Excess ABG Hemoglobin ABG Oxyhemoglobin ABG Potassium ABG Chloride ABG Glucose VBG pH Oxyhemoglobin Carboxyhemoglobin Sodium 148 H Potassium Chloride 114.0 H Carbon Dioxide BUN 59 H Creatinine 1.5 H Glucose POC Glucose Lactic Acid Calcium 7.7 L Phosphorus 4.60 H D Magnesium Total Bilirubin 11.20 H Direct Bilirubin AST 245 H ALT 242 H Alkaline Phosphatase 423 H Ammonia Total Creatine Kinase Total Protein 4.3 L Albumin 1.8 L Lipase Arterial Blood Glucose Arterial Blood Ionized Calcium Urine WBC (Auto) 102.0 H U Epithel Cells (Auto) Acetaminophen Syphilis IgG Antibody HSV I Specific Ab Crossmatch Chest x-ray: report reviewed, image reviewed (severe bilateral infiltrates)
[2020-07-24] MEDS: NORepinephrine 8 MG in SODIUM CHLORIDE 0.9% 250ML 242 ML IV SCH ×2 (00:40→21:10)
[2020-07-24] MEDS: VASOPRESSIN 20 UNIT in SODIUM CHLORIDE 0.9% 100 ML IV SCH ×3 (00:41→21:12)
[2020-07-24] MEDS: CEFEPIME/NS 2 GM/100 ML 2 GM/100 ML BAG IV SCH ×2 (02:07→17:00)
[2020-07-24] MEDS: VANCOMYCIN 1,250 MG in SODIUM CHLORIDE 0.9% 250ML 250 ML IV SCH ×2 (02:24→21:48)
[2020-07-24] MEDS: ALBUMIN HUMAN 25% (25 GM/100 ML) INJ IV SCH (06:15)
--- NOTE | 2020-07-24 09:21 | Progress Note ---
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 Acidosis Acute Liver Failure N/V UTI Syphilis Plan: -Cr trending down -Na 150, would like to keep it higher in the setting of cerebral edema and avoid hyponatremia. Per Neurology. -Replace lytes -Albumin q6H X 3 doses ordered -Making urine. -Sepsis-On multiple IV antibiotics -Monitor I/O's daily -Avoid nephrotoxic agents -Monitor renal function closely Subjective Date of service: 07/24/20 Principal diagnosis: Acute Liver Injury Interval history: Intubated on Vent. Objective - Exam Narrative Exam: General appearance: sedated on ventilator, intubated Respiratory: Present: Decreased Breath Sounds Cardiology: tachycardia Psychiatric: other (itnubated) - Vital Signs Vital signs: Vital Signs - 12hr 07/23/20 07/23/20 07/23/20 21:30 21:46 22:00 Temperature Pulse Rate 94 H 94 H 93 H Respiratory 18 18 18 Rate Blood Pressure 123/69 131/74 128/66 O2 Sat by Pulse 99 99 98 Oximetry 07/23/20 07/23/20 07/23/20 22:16 22:30 22:46 Temperature Pulse Rate 93 H 94 H 96 H Respiratory 18 18 18 Rate Blood Pressure 121/60 123/70 131/80 O2 Sat by Pulse 99 99 99 Oximetry 07/23/20 07/23/20 07/23/20 23:00 23:16 23:30 Temperature Pulse Rate 95 H 94 H 95 H Respiratory 18 18 18 Rate Blood Pressure 129/80 133/79 132/80 O2 Sat by Pulse 98 99 98 Oximetry 07/23/20 07/24/20 07/24/20 23:46 00:00 00:04 Temperature 97.5 F L Pulse Rate 88 93 H 94 H Respiratory 18 18 Rate Blood Pressure 132/80 121/68 O2 Sat by Pulse 100 99 Oximetry 07/24/20 07/24/20 07/24/20 00:11 00:15 00:30 Temperature Pulse Rate 89 93 H 92 H Respiratory 18 18 Rate Blood Pressure 128/61 120/71 122/68 O2 Sat by Pulse 100 99 99 Oximetry 07/24/20 07/24/20 07/24/20 00:45 01:00 01:15 Temperature Pulse Rate 92 H 89 88 Respiratory 18 18 18 Rate Blood Pressure 121/70 113/51 108/60 O2 Sat by Pulse 99 99 99 Oximetry 07/24/20 07/24/20 07/24/20 01:30 01:45 02:00 Temperature Pulse Rate 88 87 88 Respiratory 18 18 18 Rate Blood Pressure 110/59 110/59 113/68 O2 Sat by Pulse 99 99 99 Oximetry 07/24/20 07/24/20 07/24/20 02:15 02:30 02:45 Temperature Pulse Rate 85 89 88 Respiratory 18 18 18 Rate Blood Pressure 115/55 128/86 125/77 O2 Sat by Pulse 99 99 99 Oximetry 07/24/20 07/24/20 07/24/20 03:00 03:16 03:18 Temperature Pulse Rate 83 81 81 Respiratory 18 18 Rate Blood Pressure 104/45 96/39 96/39 O2 Sat by Pulse 99 100 100 Oximetry 07/24/20 07/24/20 07/24/20 03:28 03:30 03:45 Temperature Pulse Rate 81 81 81 Respiratory 18 18 Rate Blood Pressure 82/31 91/31 O2 Sat by Pulse 100 100 Oximetry 07/24/20 07/24/20 07/24/20 04:00 04:16 04:30 Temperature 97.4 F L Pulse Rate 86 88 85 Respiratory 18 18 18 Rate Blood Pressure 97/46 113/68 111/53 O2 Sat by Pulse 95 95 95 Oximetry 07/24/20 07/24/20 07/24/20 04:46 05:00 05:15 Temperature Pulse Rate 90 88 88 Respiratory 18 18 18 Rate Blood Pressure 129/78 123/77 132/79 O2 Sat by Pulse 95 94 93 Oximetry 07/24/20 07/24/20 07/24/20 05:30 05:45 06:00 Temperature Pulse Rate 88 89 89 Respiratory 18 18 18 Rate Blood Pressure 126/77 130/85 126/77 O2 Sat by Pulse 94 94 94 Oximetry 07/24/20 07/24/20 07/24/20 06:15 06:30 06:45 Temperature Pulse Rate 89 92 H 92 H Respiratory 18 18 18 Rate Blood Pressure 130/80 139/85 133/82 O2 Sat by Pulse 95 94 95 Oximetry 07/24/20 07/24/20 07/24/20 07:00 07:15 07:30 Temperature Pulse Rate 86 91 H 91 H Respiratory 18 18 18 Rate Blood Pressure 116/51 136/81 135/81 O2 Sat by Pulse 95 94 Oximetry 07/24/20 07/24/20 07/24/20 07:45 08:00 08:53 Temperature 97.3 F L Pulse Rate 90 86 Respiratory 18 Rate Blood Pressure 126/76 126/47 O2 Sat by Pulse 94 99 Oximetry - Lab 07/23/20 07:39 07/25/20 09:53 Most recent lab results ABG pH 7.423 (7.320-7.450) 07/24/20 03:39 ABG pCO2 31.2 mm Hg 07/22/20 04:25 ABG pO2 104.9 mm Hg (80.0-90.0) H 07/22/20 04:25 ABG HCO3 23.7 mmol/L (20.0-26.0) 07/22/20 04:25 ABG O2 Saturation 98.1 % (95.0-99.0) 07/22/20 04:25 Calcium 7.7 mg/dL (8.4-10.2) L 07/23/20 07:39 Phosphorus 4.60 mg/dL (2.5-4.5) H D 07/23/20 07:39 Magnesium 1.80 mg/dL (1.7-2.3) 07/23/20 07:39 Medications & Allergies - Medications Allergies/Adverse Reactions: Allergies No Known Allergies Allergy (Verified 07/16/20 22:03) Home Medications: Home Medications Medication Instructions Recorded Confirmed Last Taken Type No Known Home Medications [No 07/17/20 07/17/20 Unknown History Reported Home Medications] Active Medications: Generic Name Dose Route Start Last Admin Trade Name Freq PRN Reason Stop Dose Admin Acetaminophen 650 mg 07/23/20 00:37 07/23/20 01:05 Acetaminophen 325 Mg/10.15 Ml Oral Liqd Unit Dose FEEDTUBE 650 mg Q6H PRN Administration Fever >101 Lipase/Protease/Amylase 1 each 07/23/20 08:37 Lipase 10,500/Protease 25,000/Amylase 43,750 (Units) Dr Sher FEEDTUBE PRN PRN For Clogged Feeding Tube Acyclovir 370 mg/ Sodium 107.4 mls @ 100 mls/hr 07/17/20 12:00 07/23/20 21:56 Chloride IV 100 mls/hr Q12HR ESTELA Administration Protocol Thiamine HCl 100 mg/ Sodium 51 mls @ 100 mls/hr 07/18/20 10:00 07/23/20 10:39 Chloride IV 100 mls/hr QDAY ESTELA Administration Folic Acid 1 mg/ Sodium 50.2 mls @ 200.8 mls/hr 07/18/20 10:00 07/23/20 10:39 Chloride IV 200.8 mls/hr QDAY ESTELA Administration Pantoprazole Sodium 80 mg/ 100 mls @ 10 mls/hr 07/19/20 06:00 07/19/20 06:02 Sodium Chloride IV 8 mg/hr DIRECT ESTELA 10 mls/hr Administration 8 MG/HR Dopamine HCl/Dextrose 800 mg in 250 mls @ 2.807 mls/hr 07/19/20 05:45 07/19/20 05:55 Intropin Drip 800 Mg/D5w 250 Ml IV 20 mcg/kg/min TITR ESTELA 28.066 mls/hr Administration Protocol 2 MCG/KG/MIN Vasopressin 20 unit/ Sodium 101 mls @ 9.09 mls/hr 07/19/20 10:00 07/24/20 00:41 Chloride IV 0.03 units/min TITR ESTELA 9.09 mls/hr Administration Protocol 0.03 UNITS/MIN Norepinephrine 8 mg/ Sodium 250 mls @ 3.75 mls/hr 07/19/20 21:00 07/24/20 03:35 Chloride IV 8 mcg/min TITR ESTELA 15 mls/hr Titration Protocol 2 MCG/MIN Phenylephrine HCl 100 mg/ 100 mls @ 3 mls/hr 07/22/20 19:45 Sodium Chloride IV TITR ESTELA Protocol 50 MCG/MIN Cefepime HCl 2 gm in 100 mls @ 200 mls/hr 07/23/20 14:00 07/24/20 02:07 Cefepime/Ns 2 Gm/100 Ml IV 200 mls/hr Q12H ESTELA Administration Protocol Vancomycin HCl 1,250 mg/ 275 mls @ 166.667 mls/hr 07/24/20 22:00 Sodium Chloride IV Q24H ESTELA Magnesium Hydroxide 30 ml 07/17/20 03:56 Magnesium Hydroxide (Mom) Oral Liqd Udc PO Q4H PRN Constipation Ondansetron HCl 4 mg 07/17/20 03:56 07/18/20 20:00 Ondansetron 4 Mg/2 Ml Inj IV 4 mg Q8H PRN Administration Nausea And Vomiting Simple Syrup 15 ml 07/23/20 08:37 Simple Syrup 15 Ml FEEDTUBE PRN PRN Hypoglycemia Simple Syrup 30 ml 07/23/20 08:37 Simple Syrup 15 Ml FEEDTUBE PRN PRN Hypoglycemia Sodium Bicarbonate 325 mg 07/23/20 08:37 Sodium Bicarbonate 325 Mg Tab FEEDTUBE PRN PRN For Clogged Feeding Tube Sodium Chloride 10 ml 07/17/20 10:00 07/23/20 21:56 Sodium Chloride 0.9% 10 Ml Flush Syringe IV 10 ml BID ESTELA Administration Sodium Chloride 10 ml 07/17/20 03:56 Sodium Chloride 0.9% 10 Ml Flush Syringe IV PRN PRN LINE FLUSH
[2020-07-24] MEDS: FOLIC ACID 1 MG in SODIUM CHLORIDE 0.9% 50 ML IV SCH (09:53)
[2020-07-24] MEDS: SODIUM CHLORIDE 0.9% IV SCH ×2 (10:02→21:32)
[2020-07-24] MEDS: THIAMINE 100 MG in SODIUM CHLORIDE 0.9% 50 ML IV SCH (10:02)
[2020-07-24] MEDS: ACYCLOVIR IV SCH ×2 (10:02→21:32)
--- NOTE | 2020-07-24 10:54 | Progress Note ---
Assessment and Plan Continue supportive vent care. Not weanable secondary to mental state. Will await family meeting Wean Vasopressors for MAPS >65 Once down to one pressor can feed Will obtain formal neurology consult today May need to consider EEG Overall prognosis appears to be very poor. CCT 31 minutes. Subjective Date of service: 07/24/20 Principal diagnosis: Acute Liver Injury Interval history: Patient remains unresponsive. BP is better. MAPs are greater >65. Pupils are fixed. No cough, no gag. Objective Vital Signs - 12hr 07/23/20 07/23/20 07/23/20 23:00 23:16 23:30 Temperature Pulse Rate 95 H 94 H 95 H Respiratory 18 18 18 Rate Blood Pressure 129/80 133/79 132/80 O2 Sat by Pulse 98 99 98 Oximetry 07/23/20 07/24/20 07/24/20 23:46 00:00 00:04 Temperature 97.5 F L Pulse Rate 88 93 H 94 H Respiratory 18 18 Rate Blood Pressure 132/80 121/68 O2 Sat by Pulse 100 99 Oximetry 07/24/20 07/24/20 07/24/20 00:11 00:15 00:30 Temperature Pulse Rate 89 93 H 92 H Respiratory 18 18 Rate Blood Pressure 128/61 120/71 122/68 O2 Sat by Pulse 100 99 99 Oximetry 07/24/20 07/24/20 07/24/20 00:45 01:00 01:15 Temperature Pulse Rate 92 H 89 88 Respiratory 18 18 18 Rate Blood Pressure 121/70 113/51 108/60 O2 Sat by Pulse 99 99 99 Oximetry 07/24/20 07/24/20 07/24/20 01:30 01:45 02:00 Temperature Pulse Rate 88 87 88 Respiratory 18 18 18 Rate Blood Pressure 110/59 110/59 113/68 O2 Sat by Pulse 99 99 99 Oximetry 07/24/20 07/24/20 07/24/20 02:15 02:30 02:45 Temperature Pulse Rate 85 89 88 Respiratory 18 18 18 Rate Blood Pressure 115/55 128/86 125/77 O2 Sat by Pulse 99 99 99 Oximetry 07/24/20 07/24/20 07/24/20 03:00 03:16 03:18 Temperature Pulse Rate 83 81 81 Respiratory 18 18 Rate Blood Pressure 104/45 96/39 96/39 O2 Sat by Pulse 99 100 100 Oximetry 1207/24/20 07/24/20 03:28 03:30 03:45 Temperature Pulse Rate 81 81 81 Respiratory 18 18 Rate Blood Pressure 82/31 91/31 O2 Sat by Pulse 100 100 Oximetry 07/24/20 07/24/20 07/24/20 04:00 04:16 04:30 Temperature 97.4 F L Pulse Rate 86 88 85 Respiratory 18 18 18 Rate Blood Pressure 97/46 113/68 111/53 O2 Sat by Pulse 95 95 95 Oximetry 07/24/20 07/24/20 07/24/20 04:46 05:00 05:15 Temperature Pulse Rate 90 88 88 Respiratory 18 18 18 Rate Blood Pressure 129/78 123/77 132/79 O2 Sat by Pulse 95 94 93 Oximetry 07/24/20 07/24/20 07/24/20 05:30 05:45 06:00 Temperature Pulse Rate 88 89 89 Respiratory 18 18 18 Rate Blood Pressure 126/77 130/85 126/77 O2 Sat by Pulse 94 94 94 Oximetry 07/24/20 07/24/20 07/24/20 06:15 06:30 06:45 Temperature Pulse Rate 89 92 H 92 H Respiratory 18 18 18 Rate Blood Pressure 130/80 139/85 133/82 O2 Sat by Pulse 95 94 95 Oximetry 07/24/20 07/24/20 07/24/20 07:00 07:15 07:30 Temperature Pulse Rate 86 91 H 91 H Respiratory 18 18 18 Rate Blood Pressure 116/51 136/81 135/81 O2 Sat by Pulse 95 94 Oximetry 07/24/20 07/24/20 07/24/20 07:45 08:00 08:53 Temperature 97.3 F L Pulse Rate 90 86 Respiratory 18 Rate Blood Pressure 126/76 126/47 O2 Sat by Pulse 94 99 Oximetry Constitutional: comatose Eyes: icteric ENT: other (orally intubated, no sedation) Neck: supple Effort: normal Ascultation: Bilateral: rales, rhonchi (anteriorly), other (coarse BS b ilaterally) Cardiovascular: other (tachy, RR; no mrg) Gastrointestinal: normoactive bowel sounds, soft, non-tender, non-distended Integumentary: normal Extremities: no cyanosis, edema (1+ bilateral LE edema) Neurologic: other (unresponsive) Psychiatric: other (unable to assess) CBC and BMP: 07/23/20 07:39 07/23/20 07:39 ABG, PT/INR, D-dimer: ABG ABG pH 7.423 (7.320-7.450) 07/24/20 03:39 POC ABG pCO2 35.6 mmHg (32.0-48.0) 07/24/20 03:39 ABG pCO2 31.2 mm Hg 07/22/20 04:25 POC ABG pO2 147.8 mmHg (83-108) H 07/24/20 03:39 ABG pO2 104.9 mm Hg (80.0-90.0) H 07/22/20 04:25 POC ABG HCO3 22.7 07/24/20 03:39 ABG O2 Saturation 98.1 % (95.0-99.0) 07/22/20 04:25 PT/INR, D-dimer PT 21.6 Sec. (12.2-14.9) H 07/22/20 07:57 INR 1.87 (0.87-1.13) H 07/22/20 07:57 Abnormal lab findings: Abnormal Labs 07/16/20 07/16/20 07/16/20 03:54 20:47 20:47 WBC 33.9 H RBC Hgb Hct MCV 107 H MCH 34 H MCHC RDW 22.0 H Plt Count Lymph % (Auto) Craig % (Auto) Lymph # (Auto) Craig # (Auto) Eos # (Auto) Seg Neutrophils % Seg Neuts % (Manual) 89.0 H Lymphocytes % (Manual) 2.0 L Monocytes % (Manual) Nucleated RBC % 1.0 H Seg Neutrophils # Seg Neutrophils # Man 30.2 H Lymphocytes # (Manual) 0.7 L Monocytes # (Manual) 1.4 H Eosinophils # (Manual) PT INR ABG pH POC ABG pCO2 POC ABG pO2 ABG pO2 ABG Base Excess ABG Hemoglobin ABG Oxyhemoglobin ABG Potassium ABG Chloride ABG Glucose VBG pH Oxyhemoglobin Carboxyhemoglobin Sodium Potassium 5.1 H Chloride Carbon Dioxide 9 L* BUN 20 H Creatinine 1.9 H Glucose 30 L* POC Glucose Lactic Acid Calcium Phosphorus Magnesium Total Bilirubin 5.40 H Direct Bilirubin AST 47654 H ALT 1829 H Alkaline Phosphatase 141 H Ammonia Total Creatine Kinase C-Reactive Protein Total Protein Albumin Lipase 9 L Arterial Blood Glucose Arterial Blood Ionized Calcium Urine WBC (Auto) 57.0 H U Epithel Cells (Auto) 23.0 H Acetaminophen Syphilis IgG Antibody HSV I Specific Ab Crossmatch 07/16/20 07/16/20 07/16/20 20:47 22:43 23:06 WBC RBC Hgb Hct MCV MCH MCHC RDW Plt Count Lymph % (Auto) Craig % (Auto) Lymph # (Auto) Craig # (Auto) Eos # (Auto) Seg Neutrophils % Seg Neuts % (Manual) Lymphocytes % (Manual) Monocytes % (Manual) Nucleated RBC % Seg Neutrophils # Seg Neutrophils # Man Lymphocytes # (Manual) Monocytes # (Manual) Eosinophils # (Manual) PT INR ABG pH POC ABG pCO2 POC ABG pO2 ABG pO2 ABG Base Excess ABG Hemoglobin ABG Oxyhemoglobin ABG Potassium ABG Chloride ABG Glucose VBG pH Oxyhemoglobin Carboxyhemoglobin Sodium Potassium Chloride Carbon Dioxide BUN Creatinine Glucose POC Glucose 140 H Lactic Acid 14.90 H* Calcium Phosphorus Magnesium Total Bilirubin Direct Bilirubin AST ALT Alkaline Phosphatase Ammonia Total Creatine Kinase 230 H C-Reactive Protein Total Protein Albumin Lipase Arterial Blood Glucose Arterial Blood Ionized Calcium Urine WBC (Auto) U Epithel Cells (Auto) Acetaminophen Syphilis IgG Antibody HSV I Specific Ab Crossmatch 07/17/20 07/17/20 07/17/20 01:46 01:46 04:55 WBC RBC Hgb Hct MCV MCH MCHC RDW Plt Count Lymph % (Auto) Craig % (Auto) Lymph # (Auto) Craig # (Auto) Eos # (Auto) Seg Neutrophils % Seg Neuts % (Manual) Lymphocytes % (Manual) Monocytes % (Manual) Nucleated RBC % Seg Neutrophils # Seg Neutrophils # Man Lymphocytes # (Manual) Monocytes # (Manual) Eosinophils # (Manual) PT INR ABG pH POC ABG pCO2 POC ABG pO2 ABG pO2 ABG Base Excess ABG Hemoglobin ABG Oxyhemoglobin ABG Potassium ABG Chloride ABG Glucose VBG pH 7.085 L* Oxyhemoglobin Carboxyhemoglobin Sodium Potassium Chloride Carbon Dioxide BUN Creatinine Glucose POC Glucose Lactic Acid 13.20 H* 12.00 H* Calcium Phosphorus Magnesium Total Bilirubin Direct Bilirubin AST ALT Alkaline Phosphatase Ammonia Total Creatine Kinase C-Reactive Protein Total Protein Albumin Lipase Arterial Blood Glucose Arterial Blood Ionized Calcium Urine WBC (Auto) U Epithel Cells (Auto) Acetaminophen Syphilis IgG Antibody HSV I Specific Ab Crossmatch 1207/17/20 07/17/20 06:05 07:33 07:48 WBC RBC Hgb Hct MCV MCH MCHC RDW Plt Count Lymph % (Auto) Craig % (Auto) Lymph # (Auto) Craig # (Auto) Eos # (Auto) Seg Neutrophils % Seg Neuts % (Manual) Lymphocytes % (Manual) Monocytes % (Manual) Nucleated RBC % Seg Neutrophils # Seg Neutrophils # Man Lymphocytes # (Manual) Monocytes # (Manual) Eosinophils # (Manual) PT INR ABG pH POC ABG pCO2 POC ABG pO2 ABG pO2 ABG Base Excess ABG Hemoglobin ABG Oxyhemoglobin ABG Potassium ABG Chloride ABG Glucose VBG pH Oxyhemoglobin Carboxyhemoglobin Sodium Potassium Chloride Carbon Dioxide BUN Creatinine Glucose POC Glucose 59 L 125 H Lactic Acid 12.00 H* Calcium Phosphorus Magnesium Total Bilirubin Direct Bilirubin AST ALT Alkaline Phosphatase Ammonia Total Creatine Kinase C-Reactive Protein Total Protein Albumin Lipase Arterial Blood Glucose Arterial Blood Ionized Calcium Urine WBC (Auto) U Epithel Cells (Auto) Acetaminophen Syphilis IgG Antibody HSV I Specific Ab Crossmatch 07/17/20 07/17/20 07/17/20 09:23 09:23 09:24 WBC RBC Hgb Hct MCV MCH MCHC RDW Plt Count Lymph % (Auto) Craig % (Auto) Lymph # (Auto) Craig # (Auto) Eos # (Auto) Seg Neutrophils % Seg Neuts % (Manual) Lymphocytes % (Manual) Monocytes % (Manual) Nucleated RBC % Seg Neutrophils # Seg Neutrophils # Man Lymphocytes # (Manual) Monocytes # (Manual) Eosinophils # (Manual) PT INR ABG pH POC ABG pCO2 POC ABG pO2 ABG pO2 ABG Base Excess ABG Hemoglobin ABG Oxyhemoglobin ABG Potassium ABG Chloride ABG Glucose VBG pH Oxyhemoglobin Carboxyhemoglobin Sodium Potassium 5.7 H Chloride 107.6 H Carbon Dioxide 13 L BUN 24 H Creatinine 2.1 H Glucose 121 H POC Glucose Lactic Acid Calcium 6.0 L D Phosphorus Magnesium Total Bilirubin 3.80 H Direct Bilirubin AST 8355 H ALT 1522 H Alkaline Phosphatase Ammonia Total Creatine Kinase 332 H C-Reactive Protein Total Protein 4.7 L D Albumin 2.8 L Lipase Arterial Blood Glucose Arterial Blood Ionized Calcium Urine WBC (Auto) U Epithel Cells (Auto) Acetaminophen 5.0 L Syphilis IgG Antibody HSV I Specific Ab Crossmatch 07/17/20 07/17/20 07/17/20 11:08 11:08 11:08 WBC RBC Hgb Hct MCV MCH MCHC RDW Plt Count Lymph % (Auto) Craig % (Auto) Lymph # (Auto) Craig # (Auto) Eos # (Auto) Seg Neutrophils % Seg Neuts % (Manual) Lymphocytes % (Manual) Monocytes % (Manual) Nucleated RBC % Seg Neutrophils # Seg Neutrophils # Man Lymphocytes # (Manual) Monocytes # (Manual) Eosinophils # (Manual) PT 60.1 H INR > 17.67 H* ABG pH POC ABG pCO2 POC ABG pO2 ABG pO2 ABG Base Excess ABG Hemoglobin ABG Oxyhemoglobin ABG Potassium ABG Chloride ABG Glucose VBG pH Oxyhemoglobin Carboxyhemoglobin Sodium Potassium Chloride Carbon Dioxide BUN Creatinine Glucose POC Glucose Lactic Acid 9.80 H* Calcium Phosphorus Magnesium Total Bilirubin Direct Bilirubin AST ALT Alkaline Phosphatase Ammonia Total Creatine Kinase C-Reactive Protein Total Protein Albumin Lipase Arterial Blood Glucose Arterial Blood Ionized Calcium Urine WBC (Auto) U Epithel Cells (Auto) Acetaminophen Syphilis IgG Antibody Reactive A HSV I Specific Ab Crossmatch 07/17/20 07/17/20 07/17/20 11:08 14:34 14:34 WBC 27.2 H RBC 2.66 L Hgb 9.1 L D Hct 27.8 L D MCV 104 H MCH 34 H MCHC RDW 22.6 H Plt Count Lymph % (Auto) Craig % (Auto) Lymph # (Auto) Craig # (Auto) Eos # (Auto) Seg Neutrophils % Seg Neuts % (Manual) Lymphocytes % (Manual) Monocytes % (Manual) Nucleated RBC % Seg Neutrophils # Seg Neutrophils # Man Lymphocytes # (Manual) Monocytes # (Manual) Eosinophils # (Manual) PT INR ABG pH POC ABG pCO2 POC ABG pO2 ABG pO2 ABG Base Excess ABG Hemoglobin ABG Oxyhemoglobin ABG Potassium ABG Chloride ABG Glucose VBG pH Oxyhemoglobin Carboxyhemoglobin Sodium Potassium 5.4 H Chloride 107.7 H Carbon Dioxide 16 L BUN 26 H Creatinine 2.3 H Glucose 151 H POC Glucose Lactic Acid Calcium 5.8 L* Phosphorus Magnesium Total Bilirubin 3.30 H Direct Bilirubin AST 6751 H ALT 1325 H Alkaline Phosphatase Ammonia Total Creatine Kinase C-Reactive Protein Total Protein 4.4 L Albumin 2.5 L Lipase Arterial Blood Glucose Arterial Blood Ionized Calcium Urine WBC (Auto) U Epithel Cells (Auto) Acetaminophen Syphilis IgG Antibody HSV I Specific Ab 5.23 H Crossmatch 07/17/20 07/17/20 07/17/20 14:34 14:34 14:34 WBC RBC Hgb Hct MCV MCH MCHC RDW Plt Count Lymph % (Auto) Craig % (Auto) Lymph # (Auto) Craig # (Auto) Eos # (Auto) Seg Neutrophils % Seg Neuts % (Manual) Lymphocytes % (Manual) Monocytes % (Manual) Nucleated RBC % Seg Neutrophils # Seg Neutrophils # Man Lymphocytes # (Manual) Monocytes # (Manual) Eosinophils # (Manual) PT 70.6 H INR 8.29 H* ABG pH POC ABG pCO2 POC ABG pO2 ABG pO2 ABG Base Excess ABG Hemoglobin ABG Oxyhemoglobin ABG Potassium ABG Chloride ABG Glucose VBG pH Oxyhemoglobin Carboxyhemoglobin Sodium Potassium Chloride Carbon Dioxide BUN Creatinine Glucose POC Glucose Lactic Acid 7.60 H* Calcium Phosphorus Magnesium Total Bilirubin Direct Bilirubin AST ALT Alkaline Phosphatase Ammonia 75.0 H Total Creatine Kinase C-Reactive Protein Total Protein Albumin Lipase Arterial Blood Glucose Arterial Blood Ionized Calcium Urine WBC (Auto) U Epithel Cells (Auto) Acetaminophen Syphilis IgG Antibody HSV I Specific Ab Crossmatch 07/17/20 07/17/20 07/18/20 16:45 16:45 04:23 WBC 22.7 H RBC 2.47 L Hgb 8.5 L Hct 25.5 L MCV 103 H MCH 35 H MCHC RDW 21.7 H Plt Count Lymph % (Auto) 5.3 L Craig % (Auto) Lymph # (Auto) Craig # (Auto) Eos # (Auto) 0.7 H Seg Neutrophils % 88.2 H Seg Neuts % (Manual) Lymphocytes % (Manual) Monocytes % (Manual) Nucleated RBC % Seg Neutrophils # 20.0 H Seg Neutrophils # Man Lymphocytes # (Manual) Monocytes # (Manual) Eosinophils # (Manual) PT INR ABG pH POC ABG pCO2 POC ABG pO2 ABG pO2 ABG Base Excess ABG Hemoglobin ABG Oxyhemoglobin ABG Potassium ABG Chloride ABG Glucose VBG pH Oxyhemoglobin Carboxyhemoglobin Sodium Potassium Chloride 107.9 H Carbon Dioxide 17 L BUN 27 H Creatinine 2.5 H Glucose 144 H POC Glucose Lactic Acid 7.00 H* Calcium 6.0 L Phosphorus Magnesium Total Bilirubin 3.30 H Direct Bilirubin AST 6456 H ALT 1286 H Alkaline Phosphatase Ammonia Total Creatine Kinase C-Reactive Protein Total Protein 4.2 L Albumin 2.5 L Lipase Arterial Blood Glucose Arterial Blood Ionized Calcium Urine WBC (Auto) U Epithel Cells (Auto) Acetaminophen Syphilis IgG Antibody HSV I Specific Ab Crossmatch 07/18/20 07/18/20 07/18/20 04:23 04:23 04:23 WBC RBC Hgb Hct MCV MCH MCHC RDW Plt Count Lymph % (Auto) Craig % (Auto) Lymph # (Auto) Craig # (Auto) Eos # (Auto) Seg Neutrophils % Seg Neuts % (Manual) Lymphocytes % (Manual) Monocytes % (Manual) Nucleated RBC % Seg Neutrophils # Seg Neutrophils # Man Lymphocytes # (Manual) Monocytes # (Manual) Eosinophils # (Manual) PT 52.9 H INR 5.78 H* ABG pH POC ABG pCO2 POC ABG pO2 ABG pO2 ABG Base Excess ABG Hemoglobin ABG Oxyhemoglobin ABG Potassium ABG Chloride ABG Glucose VBG pH Oxyhemoglobin Carboxyhemoglobin Sodium Potassium Chloride 110.0 H Carbon Dioxide 17 L BUN 33 H Creatinine 3.0 H Glucose 110 H POC Glucose Lactic Acid 5.40 H* Calcium 6.4 L Phosphorus Magnesium Total Bilirubin Direct Bilirubin AST ALT Alkaline Phosphatase Ammonia Total Creatine Kinase C-Reactive Protein Total Protein Albumin Lipase Arterial Blood Glucose Arterial Blood Ionized Calcium Urine WBC (Auto) U Epithel Cells (Auto) Acetaminophen Syphilis IgG Antibody HSV I Specific Ab Crossmatch 07/18/20 07/18/20 07/18/20 04:23 07:25 Unknown WBC RBC Hgb Hct MCV MCH MCHC RDW Plt Count Lymph % (Auto) Craig % (Auto) Lymph # (Auto) Craig # (Auto) Eos # (Auto) Seg Neutrophils % Seg Neuts % (Manual) Lymphocytes % (Manual) Monocytes % (Manual) Nucleated RBC % Seg Neutrophils # Seg Neutrophils # Man Lymphocytes # (Manual) Monocytes # (Manual) Eosinophils # (Manual) PT INR ABG pH POC ABG pCO2 POC ABG pO2 ABG pO2 ABG Base Excess ABG Hemoglobin ABG Oxyhemoglobin ABG Potassium ABG Chloride ABG Glucose VBG pH Oxyhemoglobin Carboxyhemoglobin Sodium Potassium Chloride Carbon Dioxide BUN Creatinine Glucose POC Glucose Lactic Acid 5.50 H* 4.80 H* Calcium Phosphorus Magnesium Total Bilirubin Direct Bilirubin AST ALT Alkaline Phosphatase Ammonia 96.0 H Total Creatine Kinase C-Reactive Protein Total Protein Albumin Lipase Arterial Blood Glucose Arterial Blood Ionized Calcium Urine WBC (Auto) U Epithel Cells (Auto) Acetaminophen Syphilis IgG Antibody HSV I Specific Ab Crossmatch 07/18/20 07/18/20 07/19/20 Unknown Unknown 02:47 WBC RBC Hgb Hct MCV MCH MCHC RDW Plt Count Lymph % (Auto) Craig % (Auto) Lymph # (Auto) Craig # (Auto) Eos # (Auto) Seg Neutrophils % Seg Neuts % (Manual) Lymphocytes % (Manual) Monocytes % (Manual) Nucleated RBC % Seg Neutrophils # Seg Neutrophils # Man Lymphocytes # (Manual) Monocytes # (Manual) Eosinophils # (Manual) PT 37.3 H INR 3.73 H ABG pH POC ABG pCO2 21.1 L POC ABG pO2 61.7 L ABG pO2 ABG Base Excess ABG Hemoglobin 8.5 L ABG Oxyhemoglobin 88.1 L ABG Potassium ABG Chloride 119.0 H ABG Glucose VBG pH Oxyhemoglobin Carboxyhemoglobin Sodium Potassium Chloride Carbon Dioxide BUN Creatinine Glucose POC Glucose Lactic Acid Calcium Phosphorus Magnesium Total Bilirubin 3.70 H Direct Bilirubin 3.0 H AST 2093 H ALT 822 H Alkaline Phosphatase Ammonia Total Creatine Kinase C-Reactive Protein Total Protein 4.0 L Albumin 2.5 L Lipase Arterial Blood Glucose Arterial Blood Ionized Calcium 4.0 L Urine WBC (Auto) U Epithel Cells (Auto) Acetaminophen Syphilis IgG Antibody HSV I Specific Ab Crossmatch 07/19/20 07/19/20 07/19/20 03:01 03:01 03:01 WBC 19.4 H RBC 2.50 L Hgb 8.5 L Hct 26.1 L MCV 104 H MCH 34 H MCHC RDW 22.3 H Plt Count Lymph % (Auto) 3.7 L Craig % (Auto) Lymph # (Auto) 0.7 L Craig # (Auto) 0.9 H Eos # (Auto) Seg Neutrophils % Seg Neuts % (Manual) Lymphocytes % (Manual) Monocytes % (Manual) Nucleated RBC % Seg Neutrophils # 17.7 H Seg Neutrophils # Man Lymphocytes # (Manual) Monocytes # (Manual) Eosinophils # (Manual) PT 35.0 H INR 3.45 H ABG pH POC ABG pCO2 POC ABG pO2 ABG pO2 ABG Base Excess ABG Hemoglobin ABG Oxyhemoglobin ABG Potassium ABG Chloride ABG Glucose VBG pH Oxyhemoglobin Carboxyhemoglobin Sodium Potassium Chloride Carbon Dioxide BUN Creatinine Glucose POC Glucose Lactic Acid 5.90 H* Calcium Phosphorus Magnesium Total Bilirubin Direct Bilirubin AST ALT Alkaline Phosphatase Ammonia Total Creatine Kinase C-Reactive Protein Total Protein Albumin Lipase Arterial Blood Glucose Arterial Blood Ionized Calcium Urine WBC (Auto) U Epithel Cells (Auto) Acetaminophen Syphilis IgG Antibody HSV I Specific Ab Crossmatch 07/19/20 07/19/20 07/19/20 03:01 03:01 05:25 WBC RBC Hgb Hct MCV MCH MCHC RDW Plt Count Lymph % (Auto) Craig % (Auto) Lymph # (Auto) Craig # (Auto) Eos # (Auto) Seg Neutrophils % Seg Neuts % (Manual) Lymphocytes % (Manual) Monocytes % (Manual) Nucleated RBC % Seg Neutrophils # Seg Neutrophils # Man Lymphocytes # (Manual) Monocytes # (Manual) Eosinophils # (Manual) PT INR ABG pH POC ABG pCO2 POC ABG pO2 ABG pO2 ABG Base Excess ABG Hemoglobin ABG Oxyhemoglobin ABG Potassium ABG Chloride ABG Glucose VBG pH Oxyhemoglobin Carboxyhemoglobin Sodium 149 H Potassium Chloride 116.6 H Carbon Dioxide 14 L BUN 48 H Creatinine 2.5 H Glucose POC Glucose 43 L Lactic Acid Calcium 7.4 L D Phosphorus Magnesium Total Bilirubin 3.70 H Direct Bilirubin AST 1730 H ALT 751 H Alkaline Phosphatase Ammonia 126.0 H Total Creatine Kinase C-Reactive Protein Total Protein 4.3 L Albumin 2.4 L Lipase Arterial Blood Glucose Arterial Blood Ionized Calcium Urine WBC (Auto) U Epithel Cells (Auto) Acetaminophen Syphilis IgG Antibody HSV I Specific Ab Crossmatch 07/19/20 07/19/20 07/19/20 05:41 05:41 05:41 WBC 15.9 H RBC 1.80 L Hgb 6.2 L Hct 19.7 L* D MCV 109 H MCH 35 H MCHC RDW 22.7 H Plt Count 99 L Lymph % (Auto) 9.7 L Craig % (Auto) 8.3 H Lymph # (Auto) Craig # (Auto) 1.3 H Eos # (Auto) Seg Neutrophils % 81.2 H Seg Neuts % (Manual) 85.0 H Lymphocytes % (Manual) 12.0 L Monocytes % (Manual) Nucleated RBC % Seg Neutrophils # 12.9 H Seg Neutrophils # Man 13.5 H Lymphocytes # (Manual) Monocytes # (Manual) Eosinophils # (Manual) PT 51.8 H INR 5.63 H* ABG pH POC ABG pCO2 POC ABG pO2 ABG pO2 ABG Base Excess ABG Hemoglobin ABG Oxyhemoglobin ABG Potassium ABG Chloride ABG Glucose VBG pH Oxyhemoglobin Carboxyhemoglobin Sodium 150 H Potassium Chloride 117.6 H Carbon Dioxide 10 L BUN 50 H Creatinine 2.8 H Glucose 308 H POC Glucose Lactic Acid Calcium 6.8 L Phosphorus Magnesium Total Bilirubin 2.20 H Direct Bilirubin AST 1224 H ALT 484 H Alkaline Phosphatase Ammonia Total Creatine Kinase C-Reactive Protein Total Protein 2.8 L D Albumin 1.6 L Lipase Arterial Blood Glucose Arterial Blood Ionized Calcium Urine WBC (Auto) U Epithel Cells (Auto) Acetaminophen Syphilis IgG Antibody HSV I Specific Ab Crossmatch 07/19/20 07/19/20 07/19/20 05:41 05:41 05:53 WBC RBC Hgb Hct MCV MCH MCHC RDW Plt Count Lymph % (Auto) Craig % (Auto) Lymph # (Auto) Craig # (Auto) Eos # (Auto) Seg Neutrophils % Seg Neuts % (Manual) Lymphocytes % (Manual) Monocytes % (Manual) Nucleated RBC % Seg Neutrophils # Seg Neutrophils # Man Lymphocytes # (Manual) Monocytes # (Manual) Eosinophils # (Manual) PT INR ABG pH POC ABG pCO2 POC ABG pO2 ABG pO2 ABG Base Excess ABG Hemoglobin ABG Oxyhemoglobin ABG Potassium ABG Chloride ABG Glucose VBG pH Oxyhemoglobin Carboxyhemoglobin Sodium Potassium Chloride Carbon Dioxide BUN Creatinine Glucose POC Glucose 186 H Lactic Acid 12.00 H* Calcium Phosphorus Magnesium Total Bilirubin Direct Bilirubin AST ALT Alkaline Phosphatase Ammonia 96.0 H Total Creatine Kinase C-Reactive Protein Total Protein Albumin Lipase Arterial Blood Glucose Arterial Blood Ionized Calcium Urine WBC (Auto) U Epithel Cells (Auto) Acetaminophen Syphilis IgG Antibody HSV I Specific Ab Crossmatch 07/19/20 07/19/20 07/19/20 06:14 07:35 07:35 WBC RBC Hgb Hct MCV MCH MCHC RDW Plt Count Lymph % (Auto) Craig % (Auto) Lymph # (Auto) Craig # (Auto) Eos # (Auto) Seg Neutrophils % Seg Neuts % (Manual) Lymphocytes % (Manual) Monocytes % (Manual) Nucleated RBC % Seg Neutrophils # Seg Neutrophils # Man Lymphocytes # (Manual) Monocytes # (Manual) Eosinophils # (Manual) PT INR ABG pH 6.904 L POC ABG pCO2 50.8 H POC ABG pO2 140.1 H ABG pO2 ABG Base Excess ABG Hemoglobin 7.9 L ABG Oxyhemoglobin ABG Potassium ABG Chloride 120.0 H ABG Glucose 220 H VBG pH Oxyhemoglobin Carboxyhemoglobin 1.7 H Sodium Potassium Chloride Carbon Dioxide BUN Creatinine Glucose POC Glucose Lactic Acid 8.50 H* Calcium Phosphorus Magnesium Total Bilirubin Direct Bilirubin AST ALT Alkaline Phosphatase Ammonia Total Creatine Kinase C-Reactive Protein Total Protein Albumin Lipase Arterial Blood Glucose 220 H Arterial Blood Ionized Calcium 4.1 L Urine WBC (Auto) U Epithel Cells (Auto) Acetaminophen Syphilis IgG Antibody HSV I Specific Ab Crossmatch See Detail 07/19/20 07/19/20 07/19/20 12:45 22:54 Unknown WBC 26.7 H RBC 2.68 L Hgb 9.0 L Hct 26.8 L D MCV 100 H MCH 34 H MCHC RDW 20.2 H Plt Count 104 L Lymph % (Auto) Craig % (Auto) Lymph # (Auto) Craig # (Auto) Eos # (Auto) Seg Neutrophils % Seg Neuts % (Manual) Lymphocytes % (Manual) 6.0 L Monocytes % (Manual) 8.0 H Nucleated RBC % Seg Neutrophils # Seg Neutrophils # Man 17.6 H Lymphocytes # (Manual) Monocytes # (Manual) 2.1 H Eosinophils # (Manual) PT INR ABG pH POC ABG pCO2 POC ABG pO2 ABG pO2 ABG Base Excess ABG Hemoglobin ABG Oxyhemoglobin ABG Potassium ABG Chloride ABG Glucose VBG pH Oxyhemoglobin Carboxyhemoglobin Sodium Potassium Chloride Carbon Dioxide BUN Creatinine Glucose POC Glucose 121 H Lactic Acid 6.20 H* Calcium Phosphorus Magnesium Total Bilirubin Direct Bilirubin AST ALT Alkaline Phosphatase Ammonia Total Creatine Kinase C-Reactive Protein Total Protein Albumin Lipase Arterial Blood Glucose Arterial Blood Ionized Calcium Urine WBC (Auto) U Epithel Cells (Auto) Acetaminophen Syphilis IgG Antibody HSV I Specific Ab Crossmatch 07/19/20 07/19/20 07/19/20 Unknown Unknown Unknown WBC RBC Hgb Hct MCV MCH MCHC RDW Plt Count Lymph % (Auto) Craig % (Auto) Lymph # (Auto) Craig # (Auto) Eos # (Auto) Seg Neutrophils % Seg Neuts % (Manual) Lymphocytes % (Manual) Monocytes % (Manual) Nucleated RBC % Seg Neutrophils # Seg Neutrophils # Man Lymphocytes # (Manual) Monocytes # (Manual) Eosinophils # (Manual) PT 33.4 H INR 3.25 H ABG pH POC ABG pCO2 POC ABG pO2 ABG pO2 ABG Base Excess ABG Hemoglobin ABG Oxyhemoglobin ABG Potassium ABG Chloride ABG Glucose VBG pH Oxyhemoglobin Carboxyhemoglobin Sodium 148 H Potassium 2.6 L* D Chloride 117.3 H Carbon Dioxide 18 L D BUN 48 H Creatinine 2.4 H Glucose 207 H POC Glucose Lactic Acid 3.90 H* Calcium 6.5 L Phosphorus Magnesium Total Bilirubin 3.80 H Direct Bilirubin AST 1228 H ALT 516 H Alkaline Phosphatase Ammonia Total Creatine Kinase C-Reactive Protein Total Protein 3.6 L D Albumin 1.9 L Lipase Arterial Blood Glucose Arterial Blood Ionized Calcium Urine WBC (Auto) U Epithel Cells (Auto) Acetaminophen Syphilis IgG Antibody HSV I Specific Ab Crossmatch 07/20/20 07/20/20 07/20/20 02:41 05:04 06:39 WBC RBC Hgb Hct MCV MCH MCHC RDW Plt Count Lymph % (Auto) Craig % (Auto) Lymph # (Auto) Craig # (Auto) Eos # (Auto) Seg Neutrophils % Seg Neuts % (Manual) Lymphocytes % (Manual) Monocytes % (Manual) Nucleated RBC % Seg Neutrophils # Seg Neutrophils # Man Lymphocytes # (Manual) Monocytes # (Manual) Eosinophils # (Manual) PT INR ABG pH POC ABG pCO2 POC ABG pO2 64.7 L ABG pO2 ABG Base Excess ABG Hemoglobin 8.8 L ABG Oxyhemoglobin 91.0 L ABG Potassium 2.6 L ABG Chloride 116.0 H ABG Glucose 143 H VBG pH Oxyhemoglobin Carboxyhemoglobin 2.0 H Sodium Potassium Chloride Carbon Dioxide BUN Creatinine Glucose POC Glucose 141 H 123 H Lactic Acid Calcium Phosphorus Magnesium Total Bilirubin Direct Bilirubin AST ALT Alkaline Phosphatase Ammonia Total Creatine Kinase C-Reactive Protein Total Protein Albumin Lipase Arterial Blood Glucose 143 H Arterial Blood Ionized Calcium 3.9 L Urine WBC (Auto) U Epithel Cells (Auto) Acetaminophen Syphilis IgG Antibody HSV I Specific Ab Crossmatch 07/20/20 07/20/20 07/20/20 10:42 11:07 11:07 WBC 27.7 H RBC 2.50 L Hgb 8.4 L Hct 24.4 L MCV 98 H MCH 34 H MCHC 35 H RDW 19.8 H Plt Count 78 L Lymph % (Auto) Craig % (Auto) Lymph # (Auto) Craig # (Auto) Eos # (Auto) Seg Neutrophils % Seg Neuts % (Manual) Lymphocytes % (Manual) Monocytes % (Manual) Nucleated RBC % Seg Neutrophils # Seg Neutrophils # Man Lymphocytes # (Manual) Monocytes # (Manual) Eosinophils # (Manual) PT INR ABG pH POC ABG pCO2 POC ABG pO2 113.1 H ABG pO2 ABG Base Excess ABG Hemoglobin 8.8 L ABG Oxyhemoglobin ABG Potassium 2.9 L ABG Chloride 114.0 H ABG Glucose 135 H VBG pH Oxyhemoglobin Carboxyhemoglobin 1.9 H Sodium 147 H Potassium Chloride 114.2 H Carbon Dioxide BUN 52 H Creatinine 1.8 H Glucose 143 H POC Glucose Lactic Acid Calcium 6.5 L Phosphorus Magnesium Total Bilirubin Direct Bilirubin AST ALT Alkaline Phosphatase Ammonia Total Creatine Kinase C-Reactive Protein Total Protein Albumin Lipase Arterial Blood Glucose 135 H Arterial Blood Ionized Calcium 3.8 L Urine WBC (Auto) U Epithel Cells (Auto) Acetaminophen Syphilis IgG Antibody HSV I Specific Ab Crossmatch 07/20/20 07/21/20 07/21/20 15:05 00:03 02:07 WBC RBC Hgb Hct MCV MCH MCHC RDW Plt Count Lymph % (Auto) Craig % (Auto) Lymph # (Auto) Craig # (Auto) Eos # (Auto) Seg Neutrophils % Seg Neuts % (Manual) Lymphocytes % (Manual) Monocytes % (Manual) Nucleated RBC % Seg Neutrophils # Seg Neutrophils # Man Lymphocytes # (Manual) Monocytes # (Manual) Eosinophils # (Manual) PT INR ABG pH POC ABG pCO2 POC ABG pO2 ABG pO2 ABG Base Excess ABG Hemoglobin ABG Oxyhemoglobin ABG Potassium ABG Chloride ABG Glucose VBG pH Oxyhemoglobin Carboxyhemoglobin Sodium 146 H Potassium 2.8 L* 3.1 L Chloride 112.1 H Carbon Dioxide BUN 54 H Creatinine 1.9 H Glucose 107 H POC Glucose 145 H Lactic Acid Calcium 6.8 L Phosphorus Magnesium 0.90 L* Total Bilirubin Direct Bilirubin AST ALT Alkaline Phosphatase Ammonia Total Creatine Kinase C-Reactive Protein Total Protein Albumin Lipase Arterial Blood Glucose Arterial Blood Ionized Calcium Urine WBC (Auto) U Epithel Cells (Auto) Acetaminophen Syphilis IgG Antibody HSV I Specific Ab Crossmatch 07/21/20 07/21/20 07/21/20 03:42 05:21 10:59 WBC RBC Hgb Hct MCV MCH MCHC RDW Plt Count Lymph % (Auto) Craig % (Auto) Lymph # (Auto) Craig # (Auto) Eos # (Auto) Seg Neutrophils % Seg Neuts % (Manual) Lymphocytes % (Manual) Monocytes % (Manual) Nucleated RBC % Seg Neutrophils # Seg Neutrophils # Man Lymphocytes # (Manual) Monocytes # (Manual) Eosinophils # (Manual) PT INR ABG pH POC ABG pCO2 POC ABG pO2 ABG pO2 98.2 H ABG Base Excess -3.8 L ABG Hemoglobin 8.7 L ABG Oxyhemoglobin ABG Potassium ABG Chloride ABG Glucose VBG pH Oxyhemoglobin 94.6 L Carboxyhemoglobin Sodium Potassium Chloride Carbon Dioxide BUN Creatinine Glucose POC Glucose 150 H 161 H Lactic Acid Calcium Phosphorus Magnesium Total Bilirubin Direct Bilirubin AST ALT Alkaline Phosphatase Ammonia Total Creatine Kinase C-Reactive Protein Total Protein Albumin Lipase Arterial Blood Glucose Arterial Blood Ionized Calcium Urine WBC (Auto) U Epithel Cells (Auto) Acetaminophen Syphilis IgG Antibody HSV I Specific Ab Crossmatch 07/21/20 07/21/20 07/21/20 13:59 16:14 17:22 WBC RBC Hgb Hct MCV MCH MCHC RDW Plt Count Lymph % (Auto) Craig % (Auto) Lymph # (Auto) Craig # (Auto) Eos # (Auto) Seg Neutrophils % Seg Neuts % (Manual) Lymphocytes % (Manual) Monocytes % (Manual) Nucleated RBC % Seg Neutrophils # Seg Neutrophils # Man Lymphocytes # (Manual) Monocytes # (Manual) Eosinophils # (Manual) PT INR ABG pH POC ABG pCO2 POC ABG pO2 ABG pO2 ABG Base Excess ABG Hemoglobin ABG Oxyhemoglobin ABG Potassium ABG Chloride ABG Glucose VBG pH Oxyhemoglobin Carboxyhemoglobin Sodium Potassium 3.0 L Chloride 112.5 H Carbon Dioxide 16 L D BUN 48 H Creatinine Glucose 157 H POC Glucose 164 H 171 H Lactic Acid Calcium 7.3 L Phosphorus Magnesium Total Bilirubin Direct Bilirubin AST ALT Alkaline Phosphatase Ammonia Total Creatine Kinase C-Reactive Protein Total Protein Albumin Lipase Arterial Blood Glucose Arterial Blood Ionized Calcium Urine WBC (Auto) U Epithel Cells (Auto) Acetaminophen Syphilis IgG Antibody HSV I Specific Ab Crossmatch 07/21/20 07/22/20 07/22/20 20:06 04:25 07:57 WBC 28.9 H RBC 2.35 L Hgb 8.0 L Hct 22.2 L MCV MCH 34 H MCHC 36 H RDW 20.5 H Plt Count 41 L Lymph % (Auto) Craig % (Auto) Lymph # (Auto) Craig # (Auto) Eos # (Auto) Seg Neutrophils % Seg Neuts % (Manual) 83.0 H Lymphocytes % (Manual) 6.0 L Monocytes % (Manual) Nucleated RBC % 2.0 H Seg Neutrophils # Seg Neutrophils # Man 24.0 H Lymphocytes # (Manual) Monocytes # (Manual) 1.4 H Eosinophils # (Manual) 0.6 H PT INR ABG pH 7.500 H POC ABG pCO2 POC ABG pO2 ABG pO2 104.9 H ABG Base Excess ABG Hemoglobin 8.6 L ABG Oxyhemoglobin ABG Potassium ABG Chloride ABG Glucose VBG pH Oxyhemoglobin Carboxyhemoglobin Sodium Potassium Chloride Carbon Dioxide BUN Creatinine Glucose POC Glucose 128 H Lactic Acid Calcium Phosphorus Magnesium Total Bilirubin Direct Bilirubin AST ALT Alkaline Phosphatase Ammonia Total Creatine Kinase C-Reactive Protein Total Protein Albumin Lipase Arterial Blood Glucose Arterial Blood Ionized Calcium Urine WBC (Auto) U Epithel Cells (Auto) Acetaminophen Syphilis IgG Antibody HSV I Specific Ab Crossmatch 07/22/20 07/22/20 07/22/20 07:57 07:57 12:08 WBC RBC Hgb Hct MCV MCH MCHC RDW Plt Count Lymph % (Auto) Craig % (Auto) Lymph # (Auto) Craig # (Auto) Eos # (Auto) Seg Neutrophils % Seg Neuts % (Manual) Lymphocytes % (Manual) Monocytes % (Manual) Nucleated RBC % Seg Neutrophils # Seg Neutrophils # Man Lymphocytes # (Manual) Monocytes # (Manual) Eosinophils # (Manual) PT 21.6 H INR 1.87 H ABG pH POC ABG pCO2 POC ABG pO2 ABG pO2 ABG Base Excess ABG Hemoglobin ABG Oxyhemoglobin ABG Potassium ABG Chloride ABG Glucose VBG pH Oxyhemoglobin Carboxyhemoglobin Sodium 147 H D Potassium 2.6 L* Chloride 112.7 H Carbon Dioxide BUN 51 H Creatinine Glucose 104 H POC Glucose Lactic Acid Calcium 7.8 L Phosphorus 1.10 L Magnesium 1.50 L Total Bilirubin 9.80 H 11.10 H Direct Bilirubin 8.8 H AST 234 H 231 H ALT 297 H 286 H Alkaline Phosphatase 296 H 323 H Ammonia Total Creatine Kinase C-Reactive Protein Total Protein 4.1 L 3.6 L Albumin 1.8 L 2.0 L Lipase Arterial Blood Glucose Arterial Blood Ionized Calcium Urine WBC (Auto) U Epithel Cells (Auto) Acetaminophen Syphilis IgG Antibody HSV I Specific Ab Crossmatch 07/23/20 07/23/20 07/23/20 01:53 02:51 07:38 WBC RBC Hgb Hct MCV MCH MCHC RDW Plt Count Lymph % (Auto) Craig % (Auto) Lymph # (Auto) Craig # (Auto) Eos # (Auto) Seg Neutrophils % Seg Neuts % (Manual) Lymphocytes % (Manual) Monocytes % (Manual) Nucleated RBC % Seg Neutrophils # Seg Neutrophils # Man Lymphocytes # (Manual) Monocytes # (Manual) Eosinophils # (Manual) PT INR ABG pH 7.313 L POC ABG pCO2 POC ABG pO2 67.0 L ABG pO2 ABG Base Excess ABG Hemoglobin ABG Oxyhemoglobin ABG Potassium 3.2 L ABG Chloride 115.0 H ABG Glucose VBG pH Oxyhemoglobin Carboxyhemoglobin Sodium Potassium Chloride Carbon Dioxide BUN Creatinine Glucose POC Glucose 64 L 62 L Lactic Acid Calcium Phosphorus Magnesium Total Bilirubin Direct Bilirubin AST ALT Alkaline Phosphatase Ammonia Total Creatine Kinase C-Reactive Protein Total Protein Albumin Lipase Arterial Blood Glucose Arterial Blood Ionized Calcium 4.3 L Urine WBC (Auto) U Epithel Cells (Auto) Acetaminophen Syphilis IgG Antibody HSV I Specific Ab Crossmatch 07/23/20 07/23/20 07/23/20 07:39 07:39 23:52 WBC 37.0 H RBC 2.30 L Hgb 7.8 L Hct 22.5 L MCV 98 H MCH 34 H MCHC 35 H RDW 21.3 H Plt Count 55 L Lymph % (Auto) Craig % (Auto) Lymph # (Auto) Craig # (Auto) Eos # (Auto) Seg Neutrophils % Seg Neuts % (Manual) 78.0 H Lymphocytes % (Manual) 10.0 L Monocytes % (Manual) Nucleated RBC % 3.0 H Seg Neutrophils # Seg Neutrophils # Man 28.9 H Lymphocytes # (Manual) Monocytes # (Manual) 1.1 H Eosinophils # (Manual) 0.7 H PT INR ABG pH POC ABG pCO2 POC ABG pO2 ABG pO2 ABG Base Excess ABG Hemoglobin ABG Oxyhemoglobin ABG Potassium ABG Chloride ABG Glucose VBG pH Oxyhemoglobin Carboxyhemoglobin Sodium 148 H Potassium Chloride 114.0 H Carbon Dioxide BUN 59 H Creatinine 1.5 H Glucose POC Glucose Lactic Acid Calcium 7.7 L Phosphorus 4.60 H D Magnesium Total Bilirubin 11.20 H Direct Bilirubin AST 245 H ALT 242 H Alkaline Phosphatase 423 H Ammonia Total Creatine Kinase C-Reactive Protein 17.20 H Total Protein 4.3 L Albumin 1.8 L Lipase Arterial Blood Glucose Arterial Blood Ionized Calcium Urine WBC (Auto) U Epithel Cells (Auto) Acetaminophen Syphilis IgG Antibody HSV I Specific Ab Crossmatch 07/23/20 07/24/20 Unknown 03:39 WBC RBC Hgb Hct MCV MCH MCHC RDW Plt Count Lymph % (Auto) Craig % (Auto) Lymph # (Auto) Craig # (Auto) Eos # (Auto) Seg Neutrophils % Seg Neuts % (Manual) Lymphocytes % (Manual) Monocytes % (Manual) Nucleated RBC % Seg Neutrophils # Seg Neutrophils # Man Lymphocytes # (Manual) Monocytes # (Manual) Eosinophils # (Manual) PT INR ABG pH POC ABG pCO2 POC ABG pO2 147.8 H ABG pO2 ABG Base Excess ABG Hemoglobin 5.5 L ABG Oxyhemoglobin ABG Potassium 3.0 L ABG Chloride 117.0 H ABG Glucose VBG pH Oxyhemoglobin Carboxyhemoglobin Sodium Potassium Chloride Carbon Dioxide BUN Creatinine Glucose POC Glucose Lactic Acid Calcium Phosphorus Magnesium Total Bilirubin Direct Bilirubin AST ALT Alkaline Phosphatase Ammonia Total Creatine Kinase C-Reactive Protein Total Protein Albumin Lipase Arterial Blood Glucose Arterial Blood Ionized Calcium Urine WBC (Auto) 102.0 H U Epithel Cells (Auto) Acetaminophen Syphilis IgG Antibody HSV I Specific Ab Crossmatch
[2020-07-24 11:00] LABS: INR 1.99 (0.87-1.13)
[2020-07-24 11:02] LABS: BUN/Creatinine Ratio 53; Blood Urea Nitrogen 48 mg/dL (7-17); Calcium 8.2 mg/dL (8.4-10.2); Hemolysis Index 1
[2020-07-24 11:12] LABS: Albumin 2.4 g/dL (3.9-5); Bilirubin,Direct 7.8 mg/dL (0-0.2)
--- NOTE | 2020-07-24 11:16 | XRay Report ---
CHEST 1 VIEW INDICATION / CLINICAL INFORMATION: congestion. COMPARISON: 07/23/2020 FINDINGS: SUPPORT DEVICES: The tracheal tube, nasogastric tube HEART / MEDIASTINUM: No significant abnormality. LUNGS / PLEURA: Bilateral airspace disease No pneumothorax. ADDITIONAL FINDINGS: No significant additional findings. IMPRESSION: Slight improvement in the bilateral airspace disease compared to yesterday Signer Name: Rao Whitley MD FACR Signed: 07/24/2020 11:12 AM Workstation Name: [id number]
[2020-07-24] MEDS: POTASSIUM CHLORIDE 20 MEQ 20 MEQ/100 ML BAG IV SCH ×3 (11:43→15:15)
[2020-07-24] MEDS: PANTOPRAZOLE 40 MG INJ IV SCH ×2 (11:46→21:29)
--- NOTE | 2020-07-24 11:50 | Progress Note ---
Assessment and Plan Cultures: 07/16/2020 blood culture: no growth 07/17/2020 cervix wet prep: High number of clue cells, no trichomonas or yeast seen. 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 #Severe sepsis septic shock/MODS: remains on pressors. Unclear etiology ?UTI/PID ?colitis ?pneumonia. #Bilateral pneumonia versus pulmonary edema: Bilateral pleural effusions, diffuse bilateral patchy groundglass opacities #Acute hepatic failure: ?Toxin/med related v/s autoimmune, less likely infectious. Also ruling out HSV induced hepatic necrosis and related fulminant hepatic falure. GI following. LFTs and synthetic liver function seem to be gradually improving. #Acute kidney injury: nephrology following. #Possible UTI/PID: has been on empiric abx. #Diffuse colitis noted on CT scan: Already on antibiotics. On multiple pressors. More likely to be ischemia related. No active diarrhea. #Acute encephalopathy, diffuse cerebral edema: Probably a combination of acute liver failure and hypoxic encephalopathy. #Acute thrombocytopenia: Worsening #Anemia: #Syphilis IgG positive, RPR titer non reactive, FTA-ABS is also nonreactive, so very likely it is a false positive Recs: -Continue IV cefepime and vancomycin renally adjusted -Continue renally dosed acyclovir -f/u HSV DNA PCR on serum, was re-ordered, still pending -Neurology consult -overall poor prognosis, high mortality Kinjal Abebe MD, FACP [facility] ([facility] O: [phone] F: [phone] Subjective Date of service: 07/24/20 Principal diagnosis: Acute Liver Injury Interval history: Had fever yesterday. Afebrile today. Remains on the vent. Remains on pressors. Objective - Exam Narrative Exam: Physical Exam: Constitutional: unresponsive intubated, on the vent Head, Ears, Nose: Normocephalic, atraumatic. External ears, nose normal Eyes: Conjunctivae/corneas clear. No icterus. No ptosis. Neck: intubated Oral: intubated Cardiovascular: S1, S2 + Respiratory: AE fair bilaterally and equal GI: Soft, bowel sounds hypo Musculoskeletal: edema +, no cyanosis. Skin: No rash or abscess Hem/Lymphatic: No palpable cervical or supraclavicular nodes. No lymphangitis Psych: no agitation Neurological: unresponsive, intubated, on the vent, exam limited - Constitutional Vitals: Vital Signs Temp Pulse Resp BP Pulse Ox 97.3 F L 86 18 126/47 99 07/24/20 08:00 07/24/20 08:53 07/24/20 07:45 07/24/20 08:53 07/24/20 08:53 Temperature -Last 24 Hours Temperature 97.3 F Temperature 97.4 F Temperature 97.5 F Temperature 97.8 F Temperature 98 F Temperature 98.2 F - Labs CBC & Chem 7: 07/23/20 07:39 07/24/20 10:14 Labs: Abnormal lab results 07/23/20 07/23/20 07/24/20 Range/Units 23:52 Unknown 03:39 PT (12.2-14.9) Sec. INR (0.87-1.13) POC ABG pO2 147.8 H (83-108) mmHg ABG Hemoglobin 5.5 L (12.0-17.5) ABG Potassium 3.0 L (3.40-4.50) mmol/L ABG Chloride 117.0 H (98-107) mmol/L Sodium (137-145) mmol/L Potassium (3.6-5.0) mmol/L Chloride (98-107) mmol/L BUN (7-17) mg/dL Calcium (8.4-10.2) mg/dL Total Bilirubin (0.1-1.2) mg/dL Direct Bilirubin (0-0.2) mg/dL AST (5-40) units/L ALT (7-56) units/L Alkaline Phosphatase (35-129) units/L C-Reactive Protein 17.20 H (0.00-1.30) mg/dL Total Protein (6.3-8.2) g/dL Albumin (3.9-5) g/dL Urine WBC (Auto) 102.0 H (0.0-6.0) /HPF 07/24/20 07/24/20 07/24/20 Range/Units 10:14 10:14 10:14 PT 22.7 H (12.2-14.9) Sec. INR 1.99 H (0.87-1.13) POC ABG pO2 (83-108) mmHg ABG Hemoglobin (12.0-17.5) ABG Potassium (3.40-4.50) mmol/L ABG Chloride (98-107) mmol/L Sodium 150 H (137-145) mmol/L Potassium 2.6 L* D (3.6-5.0) mmol/L Chloride 117.1 H (98-107) mmol/L BUN 48 H (7-17) mg/dL Calcium 8.2 L (8.4-10.2) mg/dL Total Bilirubin 10.30 H (0.1-1.2) mg/dL Direct Bilirubin 7.8 H (0-0.2) mg/dL AST 144 H (5-40) units/L ALT 129 H (7-56) units/L Alkaline Phosphatase 308 H (35-129) units/L C-Reactive Protein (0.00-1.30) mg/dL Total Protein 4.2 L (6.3-8.2) g/dL Albumin 2.4 L (3.9-5) g/dL Urine WBC (Auto) (0.0-6.0) /HPF
[2020-07-24] MEDS ORDERED: POTASSIUM CHLORIDE 20 MEQ PACKET FEEDTUBE ONE (12:00)
--- NOTE | 2020-07-24 16:22 | Consultation ---
History of Present Illness Consult date: 07/24/20 Reason for Consult: Anoxic Injury Chief complaint: 29 yo female s/p cardiac arrest, noted with a poor neurologic exam with NCHCT with anoxic brain injury. Mother and fiance at bedside with concerns regarding prognostication. History of present illness: 29 yo female who initially presented with abdominal pain and noted with sepsis with renal and hepatic failure and s/p cardiac arrest with evidence of anoxic brain injury noted on NCHCT. Mother and fiance are at bedside and are concerned about her prognosis, both from a neurologic standpoint and liver standpoint. Past History Past Medical History: No medical history. denies: acute OR, atrial fib, arrhythmia, anemia, arthritis, PVD, renal failure Past Surgical History: cholecystectomy Social history: single, lives with family, smoking (Current daily smoker), alcohol abuse. denies: prescription drug abuse, IV drug use Family history: cancer (Brain cancer in grandfather, lung cancer in aunt) Medications and Allergies Allergies Allergy/AdvReac Type Severity Reaction Status Date / Time No Known Allergies Allergy Verified 07/16/20 22:03 Home Medications Medication Instructions Recorded Confirmed Last Taken Type No Known Home Medications [No 07/17/20 07/17/20 Unknown History Reported Home Medications] Active Meds: Active Medications Acetaminophen (Acetaminophen 325 Mg/10.15 Ml Oral Liqd Unit Dose) 650 mg FEEDTUBE Q6H PRN PRN Reason: Fever >101 Last Admin: 07/23/20 01:05 Dose: 650 mg Documented by: Lipase/Protease/Amylase (Lipase 10,500/Protease 25,000/Amylase 43,750 (Units) Dr Sher) 1 each FEEDTUBE PRN PRN PRN Reason: For Clogged Feeding Tube Acyclovir 370 mg/ Sodium (Chloride) 107.4 mls @ 100 mls/hr IV Q12HR ESTELA; Protocol Last Admin: 07/24/20 10:02 Dose: 100 mls/hr Documented by: Thiamine HCl 100 mg/ Sodium (Chloride) 51 mls @ 100 mls/hr IV QDAY ESTELA Last Admin: 07/24/20 10:02 Dose: 100 mls/hr Documented by: Folic Acid 1 mg/ Sodium (Chloride) 50.2 mls @ 200.8 mls/hr IV QDAY ESTELA Last Admin: 07/24/20 09:53 Dose: 200.8 mls/hr Documented by: Dopamine HCl/Dextrose (Intropin Drip 800 Mg/D5w 250 Ml) 800 mg in 250 mls @ 2.807 mls/hr IV TITR ESTLEA; Protocol Last Admin: 07/19/20 05:55 Dose: 20 mcg/kg/min, 28.066 mls/hr Documented by: Vasopressin 20 unit/ Sodium (Chloride) 101 mls @ 9.09 mls/hr IV TITR ESTELA; Protocol Last Admin: 07/24/20 11:43 Dose: 0.03 units/min, 9.09 mls/hr Documented by: Norepinephrine 8 mg/ Sodium (Chloride) 250 mls @ 3.75 mls/hr IV TITR ESTELA; Protocol Last Titration: 07/24/20 11:57 Dose: 2 mcg/min, 3.75 mls/hr Documented by: Phenylephrine HCl 100 mg/ (Sodium Chloride) 100 mls @ 3 mls/hr IV TITR ESTELA; Protocol Cefepime HCl (Cefepime/Ns 2 Gm/100 Ml) 2 gm in 100 mls @ 200 mls/hr IV Q12H ESTELA; Protocol Last Admin: 07/24/20 02:07 Dose: 200 mls/hr Documented by: Vancomycin HCl 1,250 mg/ (Sodium Chloride) 275 mls @ 166.667 mls/hr IV Q24H ESTELA Magnesium Hydroxide (Magnesium Hydroxide (Mom) Oral Liqd Udc) 30 ml PO Q4H PRN PRN Reason: Constipation Ondansetron HCl (Ondansetron 4 Mg/2 Ml Inj) 4 mg IV Q8H PRN PRN Reason: Nausea And Vomiting Last Admin: 07/18/20 20:00 Dose: 4 mg Documented by: Pantoprazole Sodium (Pantoprazole 40 Mg Inj) 40 mg IV BID [facility] Last Admin: 07/24/20 11:46 Dose: 40 mg Documented by: Simple Syrup (Simple Syrup 15 Ml) 15 ml FEEDTUBE PRN PRN PRN Reason: Hypoglycemia Simple Syrup (Simple Syrup 15 Ml) 30 ml FEEDTUBE PRN PRN PRN Reason: Hypoglycemia Sodium Bicarbonate (Sodium Bicarbonate 325 Mg Tab) 325 mg FEEDTUBE PRN PRN PRN Reason: For Clogged Feeding Tube Sodium Chloride (Sodium Chloride 0.9% 10 Ml Flush Syringe) 10 ml IV BID [facility] Last Admin: 07/24/20 10:02 Dose: 10 ml Documented by: Sodium Chloride (Sodium Chloride 0.9% 10 Ml Flush Syringe) 10 ml IV PRN PRN PRN Reason: LINE FLUSH Review of Systems ROS unobtainable: due to mental status Physical Examination - Vital Signs Vital Signs: Vital Signs Temp Pulse Resp BP Pulse Ox 98.5 F 137 H 18 90/49 95 07/16/20 20:32 07/16/20 20:32 07/16/20 20:32 07/16/20 20:32 07/16/20 20:32 - Physical Exam Narrative exam: Gen: nad, well-nourished, intubated; Head: normocephalic; Eyes: no gaze deviation; no ptosis appreciated; ENT: +ETT; CVS: warm and well-perfused; Pulm: no respiratory distress; GI: non-distended, protuberant; Ext: no cyanosis at distal extremities; Skin: no acute rash at distal extremities; Heme: no bruising or ecchymosis at distal extremities; Neuro: comatose, intubated, spont breaths over the vent; CN 2 - 6 mm noneactive pupils, CN 3, 4, 6 - oculocephalic absent, CN 5/7 - corneal reflex absent, CN 9/10 - swallowing noted, CN 11/12 - pt cannot cooperate secondary to LOC; Motor/Sensory - 0/5 in all exts to tactile stimuli; Cerebellar/Gait - pt cannot cooperate secondary to LOC; NIHSS>32; Results - Laboratory Findings CBC and BMP: 07/23/20 07:39 07/24/20 10:14 Abnormal Lab Findings: Abnormal Labs 07/16/20 07/16/20 07/16/20 03:54 20:47 20:47 WBC 33.9 H RBC Hgb Hct MCV 107 H MCH 34 H MCHC RDW 22.0 H Plt Count Lymph % (Auto) [place] % (Auto) Lymph # (Auto) [place] # (Auto) Eos # (Auto) Seg Neutrophils % Seg Neuts % (Manual) 89.0 H Lymphocytes % (Manual) 2.0 L Monocytes % (Manual) Nucleated RBC % 1.0 H Seg Neutrophils # Seg Neutrophils # Man 30.2 H Lymphocytes # (Manual) 0.7 L Monocytes # (Manual) 1.4 H Eosinophils # (Manual) PT INR ABG pH POC ABG pCO2 POC ABG pO2 ABG pO2 ABG Base Excess ABG Hemoglobin ABG Oxyhemoglobin ABG Potassium ABG Chloride ABG Glucose VBG pH Oxyhemoglobin Carboxyhemoglobin Sodium Potassium 5.1 H Chloride Carbon Dioxide 9 L* BUN 20 H Creatinine 1.9 H Glucose 30 L* POC Glucose Lactic Acid Calcium Phosphorus Magnesium Total Bilirubin 5.40 H Direct Bilirubin AST 78165 H ALT 1829 H Alkaline Phosphatase 141 H Ammonia Total Creatine Kinase C-Reactive Protein Total Protein Albumin Lipase 9 L Arterial Blood Glucose Arterial Blood Ionized Calcium Urine WBC (Auto) 57.0 H U Epithel Cells (Auto) 23.0 H Acetaminophen Syphilis IgG Antibody HSV I Specific Ab Crossmatch 07/16/20 07/16/20 07/16/20 20:47 22:43 23:06 WBC RBC Hgb Hct MCV MCH MCHC RDW Plt Count Lymph % (Auto) [place] % (Auto) Lymph # (Auto) [place] # (Auto) Eos # (Auto) Seg Neutrophils % Seg Neuts % (Manual) Lymphocytes % (Manual) Monocytes % (Manual) Nucleated RBC % Seg Neutrophils # Seg Neutrophils # Man Lymphocytes # (Manual) Monocytes # (Manual) Eosinophils # (Manual) PT INR ABG pH POC ABG pCO2 POC ABG pO2 ABG pO2 ABG Base Excess ABG Hemoglobin ABG Oxyhemoglobin ABG Potassium ABG Chloride ABG Glucose VBG pH Oxyhemoglobin Carboxyhemoglobin Sodium Potassium Chloride Carbon Dioxide BUN Creatinine Glucose POC Glucose 140 H Lactic Acid 14.90 H* Calcium Phosphorus Magnesium Total Bilirubin Direct Bilirubin AST ALT Alkaline Phosphatase Ammonia Total Creatine Kinase 230 H C-Reactive Protein Total Protein Albumin Lipase Arterial Blood Glucose Arterial Blood Ionized Calcium Urine WBC (Auto) U Epithel Cells (Auto) Acetaminophen Syphilis IgG Antibody HSV I Specific Ab Crossmatch 07/17/20 07/17/20 07/17/20 01:46 01:46 04:55 WBC RBC Hgb Hct MCV MCH MCHC RDW Plt Count Lymph % (Auto) [place] % (Auto) Lymph # (Auto) [place] # (Auto) Eos # (Auto) Seg Neutrophils % Seg Neuts % (Manual) Lymphocytes % (Manual) Monocytes % (Manual) Nucleated RBC % Seg Neutrophils # Seg Neutrophils # Man Lymphocytes # (Manual) Monocytes # (Manual) Eosinophils # (Manual) PT INR ABG pH POC ABG pCO2 POC ABG pO2 ABG pO2 ABG Base Excess ABG Hemoglobin ABG Oxyhemoglobin ABG Potassium ABG Chloride ABG Glucose VBG pH 7.085 L* Oxyhemoglobin Carboxyhemoglobin Sodium Potassium Chloride Carbon Dioxide BUN Creatinine Glucose POC Glucose Lactic Acid 13.20 H* 12.00 H* Calcium Phosphorus Magnesium Total Bilirubin Direct Bilirubin AST ALT Alkaline Phosphatase Ammonia Total Creatine Kinase C-Reactive Protein Total Protein Albumin Lipase Arterial Blood Glucose Arterial Blood Ionized Calcium Urine WBC (Auto) U Epithel Cells (Auto) Acetaminophen Syphilis IgG Antibody HSV I Specific Ab Crossmatch 07/17/20 07/17/20 07/17/20 06:05 07:33 07:48 WBC RBC Hgb Hct MCV MCH MCHC RDW Plt Count Lymph % (Auto) [place] % (Auto) Lymph # (Auto) [place] # (Auto) Eos # (Auto) Seg Neutrophils % Seg Neuts % (Manual) Lymphocytes % (Manual) Monocytes % (Manual) Nucleated RBC % Seg Neutrophils # Seg Neutrophils # Man Lymphocytes # (Manual) Monocytes # (Manual) Eosinophils # (Manual) PT INR ABG pH POC ABG pCO2 POC ABG pO2 ABG pO2 ABG Base Excess ABG Hemoglobin ABG Oxyhemoglobin ABG Potassium ABG Chloride ABG Glucose VBG pH Oxyhemoglobin Carboxyhemoglobin Sodium Potassium Chloride Carbon Dioxide BUN Creatinine Glucose POC Glucose 59 L 125 H Lactic Acid 12.00 H* Calcium Phosphorus Magnesium Total Bilirubin Direct Bilirubin AST ALT Alkaline Phosphatase Ammonia Total Creatine Kinase C-Reactive Protein Total Protein Albumin Lipase Arterial Blood Glucose Arterial Blood Ionized Calcium Urine WBC (Auto) U Epithel Cells (Auto) Acetaminophen Syphilis IgG Antibody HSV I Specific Ab Crossmatch 07/17/20 07/17/20 07/17/20 09:23 09:23 09:24 WBC RBC Hgb Hct MCV MCH MCHC RDW Plt Count Lymph % (Auto) [place] % (Auto) Lymph # (Auto) [place] # (Auto) Eos # (Auto) Seg Neutrophils % Seg Neuts % (Manual) Lymphocytes % (Manual) Monocytes % (Manual) Nucleated RBC % Seg Neutrophils # Seg Neutrophils # Man Lymphocytes # (Manual) Monocytes # (Manual) Eosinophils # (Manual) PT INR ABG pH POC ABG pCO2 POC ABG pO2 ABG pO2 ABG Base Excess ABG Hemoglobin ABG Oxyhemoglobin ABG Potassium ABG Chloride ABG Glucose VBG pH Oxyhemoglobin Carboxyhemoglobin Sodium Potassium 5.7 H Chloride 107.6 H Carbon Dioxide 13 L BUN 24 H Creatinine 2.1 H Glucose 121 H POC Glucose Lactic Acid Calcium 6.0 L D Phosphorus Magnesium Total Bilirubin 3.80 H Direct Bilirubin AST 8355 H ALT 1522 H Alkaline Phosphatase Ammonia Total Creatine Kinase 332 H C-Reactive Protein Total Protein 4.7 L D Albumin 2.8 L Lipase Arterial Blood Glucose Arterial Blood Ionized Calcium Urine WBC (Auto) U Epithel Cells (Auto) Acetaminophen 5.0 L Syphilis IgG Antibody HSV I Specific Ab Crossmatch 07/17/20 07/17/20 07/17/20 11:08 11:08 11:08 WBC RBC Hgb Hct MCV MCH MCHC RDW Plt Count Lymph % (Auto) [place] % (Auto) Lymph # (Auto) [place] # (Auto) Eos # (Auto) Seg Neutrophils % Seg Neuts % (Manual) Lymphocytes % (Manual) Monocytes % (Manual) Nucleated RBC % Seg Neutrophils # Seg Neutrophils # Man Lymphocytes # (Manual) Monocytes # (Manual) Eosinophils # (Manual) PT 60.1 H INR > 17.67 H* ABG pH POC ABG pCO2 POC ABG pO2 ABG pO2 ABG Base Excess ABG Hemoglobin ABG Oxyhemoglobin ABG Potassium ABG Chloride ABG Glucose VBG pH Oxyhemoglobin Carboxyhemoglobin Sodium Potassium Chloride Carbon Dioxide BUN Creatinine Glucose POC Glucose Lactic Acid 9.80 H* Calcium Phosphorus Magnesium Total Bilirubin Direct Bilirubin AST ALT Alkaline Phosphatase Ammonia Total Creatine Kinase C-Reactive Protein Total Protein Albumin Lipase Arterial Blood Glucose Arterial Blood Ionized Calcium Urine WBC (Auto) U Epithel Cells (Auto) Acetaminophen Syphilis IgG Antibody Reactive A HSV I Specific Ab Crossmatch 07/17/20 07/17/20 07/17/20 11:08 14:34 14:34 WBC 27.2 H RBC 2.66 L Hgb 9.1 L D Hct 27.8 L D MCV 104 H MCH 34 H MCHC RDW 22.6 H Plt Count Lymph % (Auto) [place] % (Auto) Lymph # (Auto) [place] # (Auto) Eos # (Auto) Seg Neutrophils % Seg Neuts % (Manual) Lymphocytes % (Manual) Monocytes % (Manual) Nucleated RBC % Seg Neutrophils # Seg Neutrophils # Man Lymphocytes # (Manual) Monocytes # (Manual) Eosinophils # (Manual) PT INR ABG pH POC ABG pCO2 POC ABG pO2 ABG pO2 ABG Base Excess ABG Hemoglobin ABG Oxyhemoglobin ABG Potassium ABG Chloride ABG Glucose VBG pH Oxyhemoglobin Carboxyhemoglobin Sodium Potassium 5.4 H Chloride 107.7 H Carbon Dioxide 16 L BUN 26 H Creatinine 2.3 H Glucose 151 H POC Glucose Lactic Acid Calcium 5.8 L* Phosphorus Magnesium Total Bilirubin 3.30 H Direct Bilirubin AST 6751 H ALT 1325 H Alkaline Phosphatase Ammonia Total Creatine Kinase C-Reactive Protein Total Protein 4.4 L Albumin 2.5 L Lipase Arterial Blood Glucose Arterial Blood Ionized Calcium Urine WBC (Auto) U Epithel Cells (Auto) Acetaminophen Syphilis IgG Antibody HSV I Specific Ab 5.23 H Crossmatch 07/17/20 07/17/20 07/17/20 14:34 14:34 14:34 WBC RBC Hgb Hct MCV MCH MCHC RDW Plt Count Lymph % (Auto) [place] % (Auto) Lymph # (Auto) [place] # (Auto) Eos # (Auto) Seg Neutrophils % Seg Neuts % (Manual) Lymphocytes % (Manual) Monocytes % (Manual) Nucleated RBC % Seg Neutrophils # Seg Neutrophils # Man Lymphocytes # (Manual) Monocytes # (Manual) Eosinophils # (Manual) PT 70.6 H INR 8.29 H* ABG pH POC ABG pCO2 POC ABG pO2 ABG pO2 ABG Base Excess ABG Hemoglobin ABG Oxyhemoglobin ABG Potassium ABG Chloride ABG Glucose VBG pH Oxyhemoglobin Carboxyhemoglobin Sodium Potassium Chloride Carbon Dioxide BUN Creatinine Glucose POC Glucose Lactic Acid 7.60 H* Calcium Phosphorus Magnesium Total Bilirubin Direct Bilirubin AST ALT Alkaline Phosphatase Ammonia 75.0 H Total Creatine Kinase C-Reactive Protein Total Protein Albumin Lipase Arterial Blood Glucose Arterial Blood Ionized Calcium Urine WBC (Auto) U Epithel Cells (Auto) Acetaminophen Syphilis IgG Antibody HSV I Specific Ab Crossmatch 07/17/20 07/17/20 07/18/20 16:45 16:45 04:23 WBC 22.7 H RBC 2.47 L Hgb 8.5 L Hct 25.5 L MCV 103 H MCH 35 H MCHC RDW 21.7 H Plt Count Lymph % (Auto) 5.3 L [place] % (Auto) Lymph # (Auto) [place] # (Auto) Eos # (Auto) 0.7 H Seg Neutrophils % 88.2 H Seg Neuts % (Manual) Lymphocytes % (Manual) Monocytes % (Manual) Nucleated RBC % Seg Neutrophils # 20.0 H Seg Neutrophils # Man Lymphocytes # (Manual) Monocytes # (Manual) Eosinophils # (Manual) PT INR ABG pH POC ABG pCO2 POC ABG pO2 ABG pO2 ABG Base Excess ABG Hemoglobin ABG Oxyhemoglobin ABG Potassium ABG Chloride ABG Glucose VBG pH Oxyhemoglobin Carboxyhemoglobin Sodium Potassium Chloride 107.9 H Carbon Dioxide 17 L BUN 27 H Creatinine 2.5 H Glucose 144 H POC Glucose Lactic Acid 7.00 H* Calcium 6.0 L Phosphorus Magnesium Total Bilirubin 3.30 H Direct Bilirubin AST 6456 H ALT 1286 H Alkaline Phosphatase Ammonia Total Creatine Kinase C-Reactive Protein Total Protein 4.2 L Albumin 2.5 L Lipase Arterial Blood Glucose Arterial Blood Ionized Calcium Urine WBC (Auto) U Epithel Cells (Auto) Acetaminophen Syphilis IgG Antibody HSV I Specific Ab Crossmatch 07/18/20 07/18/20 07/18/20 04:23 04:23 04:23 WBC RBC Hgb Hct MCV MCH MCHC RDW Plt Count Lymph % (Auto) [place] % (Auto) Lymph # (Auto) [place] # (Auto) Eos # (Auto) Seg Neutrophils % Seg Neuts % (Manual) Lymphocytes % (Manual) Monocytes % (Manual) Nucleated RBC % Seg Neutrophils # Seg Neutrophils # Man Lymphocytes # (Manual) Monocytes # (Manual) Eosinophils # (Manual) PT 52.9 H INR 5.78 H* ABG pH POC ABG pCO2 POC ABG pO2 ABG pO2 ABG Base Excess ABG Hemoglobin ABG Oxyhemoglobin ABG Potassium ABG Chloride ABG Glucose VBG pH Oxyhemoglobin Carboxyhemoglobin Sodium Potassium Chloride 110.0 H Carbon Dioxide 17 L BUN 33 H Creatinine 3.0 H Glucose 110 H POC Glucose Lactic Acid 5.40 H* Calcium 6.4 L Phosphorus Magnesium Total Bilirubin Direct Bilirubin AST ALT Alkaline Phosphatase Ammonia Total Creatine Kinase C-Reactive Protein Total Protein Albumin Lipase Arterial Blood Glucose Arterial Blood Ionized Calcium Urine WBC (Auto) U Epithel Cells (Auto) Acetaminophen Syphilis IgG Antibody HSV I Specific Ab Crossmatch 07/18/20 07/18/20 07/18/20 04:23 07:25 Unknown WBC RBC Hgb Hct MCV MCH MCHC RDW Plt Count Lymph % (Auto) [place] % (Auto) Lymph # (Auto) [place] # (Auto) Eos # (Auto) Seg Neutrophils % Seg Neuts % (Manual) Lymphocytes % (Manual) Monocytes % (Manual) Nucleated RBC % Seg Neutrophils # Seg Neutrophils # Man Lymphocytes # (Manual) Monocytes # (Manual) Eosinophils # (Manual) PT INR ABG pH POC ABG pCO2 POC ABG pO2 ABG pO2 ABG Base Excess ABG Hemoglobin ABG Oxyhemoglobin ABG Potassium ABG Chloride ABG Glucose VBG pH Oxyhemoglobin Carboxyhemoglobin Sodium Potassium Chloride Carbon Dioxide BUN Creatinine Glucose POC Glucose Lactic Acid 5.50 H* 4.80 H* Calcium Phosphorus Magnesium Total Bilirubin Direct Bilirubin AST ALT Alkaline Phosphatase Ammonia 96.0 H Total Creatine Kinase C-Reactive Protein Total Protein Albumin Lipase Arterial Blood Glucose Arterial Blood Ionized Calcium Urine WBC (Auto) U Epithel Cells (Auto) Acetaminophen Syphilis IgG Antibody HSV I Specific Ab Crossmatch 07/18/20 07/18/20 07/19/20 Unknown Unknown 02:47 WBC RBC Hgb Hct MCV MCH MCHC RDW Plt Count Lymph % (Auto) [place] % (Auto) Lymph # (Auto) [place] # (Auto) Eos # (Auto) Seg Neutrophils % Seg Neuts % (Manual) Lymphocytes % (Manual) Monocytes % (Manual) Nucleated RBC % Seg Neutrophils # Seg Neutrophils # Man Lymphocytes # (Manual) Monocytes # (Manual) Eosinophils # (Manual) PT 37.3 H INR 3.73 H ABG pH POC ABG pCO2 21.1 L POC ABG pO2 61.7 L ABG pO2 ABG Base Excess ABG Hemoglobin 8.5 L ABG Oxyhemoglobin 88.1 L ABG Potassium ABG Chloride 119.0 H ABG Glucose VBG pH Oxyhemoglobin Carboxyhemoglobin Sodium Potassium Chloride Carbon Dioxide BUN Creatinine Glucose POC Glucose Lactic Acid Calcium Phosphorus Magnesium Total Bilirubin 3.70 H Direct Bilirubin 3.0 H AST 2093 H ALT 822 H Alkaline Phosphatase Ammonia Total Creatine Kinase C-Reactive Protein Total Protein 4.0 L Albumin 2.5 L Lipase Arterial Blood Glucose Arterial Blood Ionized Calcium 4.0 L Urine WBC (Auto) U Epithel Cells (Auto) Acetaminophen Syphilis IgG Antibody HSV I Specific Ab Crossmatch 07/19/20 07/19/20 07/19/20 03:01 03:01 03:01 WBC 19.4 H RBC 2.50 L Hgb 8.5 L Hct 26.1 L MCV 104 H MCH 34 H MCHC RDW 22.3 H Plt Count Lymph % (Auto) 3.7 L [place] % (Auto) Lymph # (Auto) 0.7 L [place] # (Auto) 0.9 H Eos # (Auto) Seg Neutrophils % Seg Neuts % (Manual) Lymphocytes % (Manual) Monocytes % (Manual) Nucleated RBC % Seg Neutrophils # 17.7 H Seg Neutrophils # Man Lymphocytes # (Manual) Monocytes # (Manual) Eosinophils # (Manual) PT 35.0 H INR 3.45 H ABG pH POC ABG pCO2 POC ABG pO2 ABG pO2 ABG Base Excess ABG Hemoglobin ABG Oxyhemoglobin ABG Potassium ABG Chloride ABG Glucose VBG pH Oxyhemoglobin Carboxyhemoglobin Sodium Potassium Chloride Carbon Dioxide BUN Creatinine Glucose POC Glucose Lactic Acid 5.90 H* Calcium Phosphorus Magnesium Total Bilirubin Direct Bilirubin AST ALT Alkaline Phosphatase Ammonia Total Creatine Kinase C-Reactive Protein Total Protein Albumin Lipase Arterial Blood Glucose Arterial Blood Ionized Calcium Urine WBC (Auto) U Epithel Cells (Auto) Acetaminophen Syphilis IgG Antibody HSV I Specific Ab Crossmatch 07/19/20 07/19/20 07/19/20 03:01 03:01 05:25 WBC RBC Hgb Hct MCV MCH MCHC RDW Plt Count Lymph % (Auto) [place] % (Auto) Lymph # (Auto) [place] # (Auto) Eos # (Auto) Seg Neutrophils % Seg Neuts % (Manual) Lymphocytes % (Manual) Monocytes % (Manual) Nucleated RBC % Seg Neutrophils # Seg Neutrophils # Man Lymphocytes # (Manual) Monocytes # (Manual) Eosinophils # (Manual) PT INR ABG pH POC ABG pCO2 POC ABG pO2 ABG pO2 ABG Base Excess ABG Hemoglobin ABG Oxyhemoglobin ABG Potassium ABG Chloride ABG Glucose VBG pH Oxyhemoglobin Carboxyhemoglobin Sodium 149 H Potassium Chloride 116.6 H Carbon Dioxide 14 L BUN 48 H Creatinine 2.5 H Glucose POC Glucose 43 L Lactic Acid Calcium 7.4 L D Phosphorus Magnesium Total Bilirubin 3.70 H Direct Bilirubin AST 1730 H ALT 751 H Alkaline Phosphatase Ammonia 126.0 H Total Creatine Kinase C-Reactive Protein Total Protein 4.3 L Albumin 2.4 L Lipase Arterial Blood Glucose Arterial Blood Ionized Calcium Urine WBC (Auto) U Epithel Cells (Auto) Acetaminophen Syphilis IgG Antibody HSV I Specific Ab Crossmatch 07/19/20 07/19/20 07/19/20 05:41 05:41 05:41 WBC 15.9 H RBC 1.80 L Hgb 6.2 L Hct 19.7 L* D MCV 109 H MCH 35 H MCHC RDW 22.7 H Plt Count 99 L Lymph % (Auto) 9.7 L [place] % (Auto) 8.3 H Lymph # (Auto) [place] # (Auto) 1.3 H Eos # (Auto) Seg Neutrophils % 81.2 H Seg Neuts % (Manual) 85.0 H Lymphocytes % (Manual) 12.0 L Monocytes % (Manual) Nucleated RBC % Seg Neutrophils # 12.9 H Seg Neutrophils # Man 13.5 H Lymphocytes # (Manual) Monocytes # (Manual) Eosinophils # (Manual) PT 51.8 H INR 5.63 H* ABG pH POC ABG pCO2 POC ABG pO2 ABG pO2 ABG Base Excess ABG Hemoglobin ABG Oxyhemoglobin ABG Potassium ABG Chloride ABG Glucose VBG pH Oxyhemoglobin Carboxyhemoglobin Sodium 150 H Potassium Chloride 117.6 H Carbon Dioxide 10 L BUN 50 H Creatinine 2.8 H Glucose 308 H POC Glucose Lactic Acid Calcium 6.8 L Phosphorus Magnesium Total Bilirubin 2.20 H Direct Bilirubin AST 1224 H ALT 484 H Alkaline Phosphatase Ammonia Total Creatine Kinase C-Reactive Protein Total Protein 2.8 L D Albumin 1.6 L Lipase Arterial Blood Glucose Arterial Blood Ionized Calcium Urine WBC (Auto) U Epithel Cells (Auto) Acetaminophen Syphilis IgG Antibody HSV I Specific Ab Crossmatch 07/19/20 07/19/20 07/19/20 05:41 05:41 05:53 WBC RBC Hgb Hct MCV MCH MCHC RDW Plt Count Lymph % (Auto) [place] % (Auto) Lymph # (Auto) [place] # (Auto) Eos # (Auto) Seg Neutrophils % Seg Neuts % (Manual) Lymphocytes % (Manual) Monocytes % (Manual) Nucleated RBC % Seg Neutrophils # Seg Neutrophils # Man Lymphocytes # (Manual) Monocytes # (Manual) Eosinophils # (Manual) PT INR ABG pH POC ABG pCO2 POC ABG pO2 ABG pO2 ABG Base Excess ABG Hemoglobin ABG Oxyhemoglobin ABG Potassium ABG Chloride ABG Glucose VBG pH Oxyhemoglobin Carboxyhemoglobin Sodium Potassium Chloride Carbon Dioxide BUN Creatinine Glucose POC Glucose 186 H Lactic Acid 12.00 H* Calcium Phosphorus Magnesium Total Bilirubin Direct Bilirubin AST ALT Alkaline Phosphatase Ammonia 96.0 H Total Creatine Kinase C-Reactive Protein Total Protein Albumin Lipase Arterial Blood Glucose Arterial Blood Ionized Calcium Urine WBC (Auto) U Epithel Cells (Auto) Acetaminophen Syphilis IgG Antibody HSV I Specific Ab Crossmatch 07/19/20 07/19/20 07/19/20 06:14 07:35 07:35 WBC RBC Hgb Hct MCV MCH MCHC RDW Plt Count Lymph % (Auto) [place] % (Auto) Lymph # (Auto) [place] # (Auto) Eos # (Auto) Seg Neutrophils % Seg Neuts % (Manual) Lymphocytes % (Manual) Monocytes % (Manual) Nucleated RBC % Seg Neutrophils # Seg Neutrophils # Man Lymphocytes # (Manual) Monocytes # (Manual) Eosinophils # (Manual) PT INR ABG pH 6.904 L POC ABG pCO2 50.8 H POC ABG pO2 140.1 H ABG pO2 ABG Base Excess ABG Hemoglobin 7.9 L ABG Oxyhemoglobin ABG Potassium ABG Chloride 120.0 H ABG Glucose 220 H VBG pH Oxyhemoglobin Carboxyhemoglobin 1.7 H Sodium Potassium Chloride Carbon Dioxide BUN Creatinine Glucose POC Glucose Lactic Acid 8.50 H* Calcium Phosphorus Magnesium Total Bilirubin Direct Bilirubin AST ALT Alkaline Phosphatase Ammonia Total Creatine Kinase C-Reactive Protein Total Protein Albumin Lipase Arterial Blood Glucose 220 H Arterial Blood Ionized Calcium 4.1 L Urine WBC (Auto) U Epithel Cells (Auto) Acetaminophen Syphilis IgG Antibody HSV I Specific Ab Crossmatch See Detail 07/19/20 07/19/20 07/19/20 12:45 22:54 Unknown WBC 26.7 H RBC 2.68 L Hgb 9.0 L Hct 26.8 L D MCV 100 H MCH 34 H MCHC RDW 20.2 H Plt Count 104 L Lymph % (Auto) [place] % (Auto) Lymph # (Auto) [place] # (Auto) Eos # (Auto) Seg Neutrophils % Seg Neuts % (Manual) Lymphocytes % (Manual) 6.0 L Monocytes % (Manual) 8.0 H Nucleated RBC % Seg Neutrophils # Seg Neutrophils # Man 17.6 H Lymphocytes # (Manual) Monocytes # (Manual) 2.1 H Eosinophils # (Manual) PT INR ABG pH POC ABG pCO2 POC ABG pO2 ABG pO2 ABG Base Excess ABG Hemoglobin ABG Oxyhemoglobin ABG Potassium ABG Chloride ABG Glucose VBG pH Oxyhemoglobin Carboxyhemoglobin Sodium Potassium Chloride Carbon Dioxide BUN Creatinine Glucose POC Glucose 121 H Lactic Acid 6.20 H* Calcium Phosphorus Magnesium Total Bilirubin Direct Bilirubin AST ALT Alkaline Phosphatase Ammonia Total Creatine Kinase C-Reactive Protein Total Protein Albumin Lipase Arterial Blood Glucose Arterial Blood Ionized Calcium Urine WBC (Auto) U Epithel Cells (Auto) Acetaminophen Syphilis IgG Antibody HSV I Specific Ab Crossmatch 07/19/20 07/19/20 07/19/20 Unknown Unknown Unknown WBC RBC Hgb Hct MCV MCH MCHC RDW Plt Count Lymph % (Auto) [place] % (Auto) Lymph # (Auto) [place] # (Auto) Eos # (Auto) Seg Neutrophils % Seg Neuts % (Manual) Lymphocytes % (Manual) Monocytes % (Manual) Nucleated RBC % Seg Neutrophils # Seg Neutrophils # Man Lymphocytes # (Manual) Monocytes # (Manual) Eosinophils # (Manual) PT 33.4 H INR 3.25 H ABG pH POC ABG pCO2 POC ABG pO2 ABG pO2 ABG Base Excess ABG Hemoglobin ABG Oxyhemoglobin ABG Potassium ABG Chloride ABG Glucose VBG pH Oxyhemoglobin Carboxyhemoglobin Sodium 148 H Potassium 2.6 L* D Chloride 117.3 H Carbon Dioxide 18 L D BUN 48 H Creatinine 2.4 H Glucose 207 H POC Glucose Lactic Acid 3.90 H* Calcium 6.5 L Phosphorus Magnesium Total Bilirubin 3.80 H Direct Bilirubin AST 1228 H ALT 516 H Alkaline Phosphatase Ammonia Total Creatine Kinase C-Reactive Protein Total Protein 3.6 L D Albumin 1.9 L Lipase Arterial Blood Glucose Arterial Blood Ionized Calcium Urine WBC (Auto) U Epithel Cells (Auto) Acetaminophen Syphilis IgG Antibody HSV I Specific Ab Crossmatch 07/20/20 07/20/20 07/20/20 02:41 05:04 06:39 WBC RBC Hgb Hct MCV MCH MCHC RDW Plt Count Lymph % (Auto) [place] % (Auto) Lymph # (Auto) [place] # (Auto) Eos # (Auto) Seg Neutrophils % Seg Neuts % (Manual) Lymphocytes % (Manual) Monocytes % (Manual) Nucleated RBC % Seg Neutrophils # Seg Neutrophils # Man Lymphocytes # (Manual) Monocytes # (Manual) Eosinophils # (Manual) PT INR ABG pH POC ABG pCO2 POC ABG pO2 64.7 L ABG pO2 ABG Base Excess ABG Hemoglobin 8.8 L ABG Oxyhemoglobin 91.0 L ABG Potassium 2.6 L ABG Chloride 116.0 H ABG Glucose 143 H VBG pH Oxyhemoglobin Carboxyhemoglobin 2.0 H Sodium Potassium Chloride Carbon Dioxide BUN Creatinine Glucose POC Glucose 141 H 123 H Lactic Acid Calcium Phosphorus Magnesium Total Bilirubin Direct Bilirubin AST ALT Alkaline Phosphatase Ammonia Total Creatine Kinase C-Reactive Protein Total Protein Albumin Lipase Arterial Blood Glucose 143 H Arterial Blood Ionized Calcium 3.9 L Urine WBC (Auto) U Epithel Cells (Auto) Acetaminophen Syphilis IgG Antibody HSV I Specific Ab Crossmatch 07/20/20 07/20/20 07/20/20 10:42 11:07 11:07 WBC 27.7 H RBC 2.50 L Hgb 8.4 L Hct 24.4 L MCV 98 H MCH 34 H MCHC 35 H RDW 19.8 H Plt Count 78 L Lymph % (Auto) [place] % (Auto) Lymph # (Auto) [place] # (Auto) Eos # (Auto) Seg Neutrophils % Seg Neuts % (Manual) Lymphocytes % (Manual) Monocytes % (Manual) Nucleated RBC % Seg Neutrophils # Seg Neutrophils # Man Lymphocytes # (Manual) Monocytes # (Manual) Eosinophils # (Manual) PT INR ABG pH POC ABG pCO2 POC ABG pO2 113.1 H ABG pO2 ABG Base Excess ABG Hemoglobin 8.8 L ABG Oxyhemoglobin ABG Potassium 2.9 L ABG Chloride 114.0 H ABG Glucose 135 H VBG pH Oxyhemoglobin Carboxyhemoglobin 1.9 H Sodium 147 H Potassium Chloride 114.2 H Carbon Dioxide BUN 52 H Creatinine 1.8 H Glucose 143 H POC Glucose Lactic Acid Calcium 6.5 L Phosphorus Magnesium Total Bilirubin Direct Bilirubin AST ALT Alkaline Phosphatase Ammonia Total Creatine Kinase C-Reactive Protein Total Protein Albumin Lipase Arterial Blood Glucose 135 H Arterial Blood Ionized Calcium 3.8 L Urine WBC (Auto) U Epithel Cells (Auto) Acetaminophen Syphilis IgG Antibody HSV I Specific Ab Crossmatch 07/20/20 07/21/20 07/21/20 15:05 00:03 02:07 WBC RBC Hgb Hct MCV MCH MCHC RDW Plt Count Lymph % (Auto) [place] % (Auto) Lymph # (Auto) [place] # (Auto) Eos # (Auto) Seg Neutrophils % Seg Neuts % (Manual) Lymphocytes % (Manual) Monocytes % (Manual) Nucleated RBC % Seg Neutrophils # Seg Neutrophils # Man Lymphocytes # (Manual) Monocytes # (Manual) Eosinophils # (Manual) PT INR ABG pH POC ABG pCO2 POC ABG pO2 ABG pO2 ABG Base Excess ABG Hemoglobin ABG Oxyhemoglobin ABG Potassium ABG Chloride ABG Glucose VBG pH Oxyhemoglobin Carboxyhemoglobin Sodium 146 H Potassium 2.8 L* 3.1 L Chloride 112.1 H Carbon Dioxide BUN 54 H Creatinine 1.9 H Glucose 107 H POC Glucose 145 H Lactic Acid Calcium 6.8 L Phosphorus Magnesium 0.90 L* Total Bilirubin Direct Bilirubin AST ALT Alkaline Phosphatase Ammonia Total Creatine Kinase C-Reactive Protein Total Protein Albumin Lipase Arterial Blood Glucose Arterial Blood Ionized Calcium Urine WBC (Auto) U Epithel Cells (Auto) Acetaminophen Syphilis IgG Antibody HSV I Specific Ab Crossmatch 07/21/20 07/21/20 07/21/20 03:42 05:21 10:59 WBC RBC Hgb Hct MCV MCH MCHC RDW Plt Count Lymph % (Auto) [place] % (Auto) Lymph # (Auto) [place] # (Auto) Eos # (Auto) Seg Neutrophils % Seg Neuts % (Manual) Lymphocytes % (Manual) Monocytes % (Manual) Nucleated RBC % Seg Neutrophils # Seg Neutrophils # Man Lymphocytes # (Manual) Monocytes # (Manual) Eosinophils # (Manual) PT INR ABG pH POC ABG pCO2 POC ABG pO2 ABG pO2 98.2 H ABG Base Excess -3.8 L ABG Hemoglobin 8.7 L ABG Oxyhemoglobin ABG Potassium ABG Chloride ABG Glucose VBG pH Oxyhemoglobin 94.6 L Carboxyhemoglobin Sodium Potassium Chloride Carbon Dioxide BUN Creatinine Glucose POC Glucose 150 H 161 H Lactic Acid Calcium Phosphorus Magnesium Total Bilirubin Direct Bilirubin AST ALT Alkaline Phosphatase Ammonia Total Creatine Kinase C-Reactive Protein Total Protein Albumin Lipase Arterial Blood Glucose Arterial Blood Ionized Calcium Urine WBC (Auto) U Epithel Cells (Auto) Acetaminophen Syphilis IgG Antibody HSV I Specific Ab Crossmatch 07/21/20 07/21/20 07/21/20 13:59 16:14 17:22 WBC RBC Hgb Hct MCV MCH MCHC RDW Plt Count Lymph % (Auto) [place] % (Auto) Lymph # (Auto) [place] # (Auto) Eos # (Auto) Seg Neutrophils % Seg Neuts % (Manual) Lymphocytes % (Manual) Monocytes % (Manual) Nucleated RBC % Seg Neutrophils # Seg Neutrophils # Man Lymphocytes # (Manual) Monocytes # (Manual) Eosinophils # (Manual) PT INR ABG pH POC ABG pCO2 POC ABG pO2 ABG pO2 ABG Base Excess ABG Hemoglobin ABG Oxyhemoglobin ABG Potassium ABG Chloride ABG Glucose VBG pH Oxyhemoglobin Carboxyhemoglobin Sodium Potassium 3.0 L Chloride 112.5 H Carbon Dioxide 16 L D BUN 48 H Creatinine Glucose 157 H POC Glucose 164 H 171 H Lactic Acid Calcium 7.3 L Phosphorus Magnesium Total Bilirubin Direct Bilirubin AST ALT Alkaline Phosphatase Ammonia Total Creatine Kinase C-Reactive Protein Total Protein Albumin Lipase Arterial Blood Glucose Arterial Blood Ionized Calcium Urine WBC (Auto) U Epithel Cells (Auto) Acetaminophen Syphilis IgG Antibody HSV I Specific Ab Crossmatch 07/21/20 07/22/20 07/22/20 20:06 04:25 07:57 WBC 28.9 H RBC 2.35 L Hgb 8.0 L Hct 22.2 L MCV MCH 34 H MCHC 36 H RDW 20.5 H Plt Count 41 L Lymph % (Auto) [place] % (Auto) Lymph # (Auto) [place] # (Auto) Eos # (Auto) Seg Neutrophils % Seg Neuts % (Manual) 83.0 H Lymphocytes % (Manual) 6.0 L Monocytes % (Manual) Nucleated RBC % 2.0 H Seg Neutrophils # Seg Neutrophils # Man 24.0 H Lymphocytes # (Manual) Monocytes # (Manual) 1.4 H Eosinophils # (Manual) 0.6 H PT INR ABG pH 7.500 H POC ABG pCO2 POC ABG pO2 ABG pO2 104.9 H ABG Base Excess ABG Hemoglobin 8.6 L ABG Oxyhemoglobin ABG Potassium ABG Chloride ABG Glucose VBG pH Oxyhemoglobin Carboxyhemoglobin Sodium Potassium Chloride Carbon Dioxide BUN Creatinine Glucose POC Glucose 128 H Lactic Acid Calcium Phosphorus Magnesium Total Bilirubin Direct Bilirubin AST ALT Alkaline Phosphatase Ammonia Total Creatine Kinase C-Reactive Protein Total Protein Albumin Lipase Arterial Blood Glucose Arterial Blood Ionized Calcium Urine WBC (Auto) U Epithel Cells (Auto) Acetaminophen Syphilis IgG Antibody HSV I Specific Ab Crossmatch 07/22/20 07/22/20 07/22/20 07:57 07:57 12:08 WBC RBC Hgb Hct MCV MCH MCHC RDW Plt Count Lymph % (Auto) [place] % (Auto) Lymph # (Auto) [place] # (Auto) Eos # (Auto) Seg Neutrophils % Seg Neuts % (Manual) Lymphocytes % (Manual) Monocytes % (Manual) Nucleated RBC % Seg Neutrophils # Seg Neutrophils # Man Lymphocytes # (Manual) Monocytes # (Manual) Eosinophils # (Manual) PT 21.6 H INR 1.87 H ABG pH POC ABG pCO2 POC ABG pO2 ABG pO2 ABG Base Excess ABG Hemoglobin ABG Oxyhemoglobin ABG Potassium ABG Chloride ABG Glucose VBG pH Oxyhemoglobin Carboxyhemoglobin Sodium 147 H D Potassium 2.6 L* Chloride 112.7 H Carbon Dioxide BUN 51 H Creatinine Glucose 104 H POC Glucose Lactic Acid Calcium 7.8 L Phosphorus 1.10 L Magnesium 1.50 L Total Bilirubin 9.80 H 11.10 H Direct Bilirubin 8.8 H AST 234 H 231 H ALT 297 H 286 H Alkaline Phosphatase 296 H 323 H Ammonia Total Creatine Kinase C-Reactive Protein Total Protein 4.1 L 3.6 L Albumin 1.8 L 2.0 L Lipase Arterial Blood Glucose Arterial Blood Ionized Calcium Urine WBC (Auto) U Epithel Cells (Auto) Acetaminophen Syphilis IgG Antibody HSV I Specific Ab Crossmatch 07/23/20 07/23/20 07/23/20 01:53 02:51 07:38 WBC RBC Hgb Hct MCV MCH MCHC RDW Plt Count Lymph % (Auto) [place] % (Auto) Lymph # (Auto) [place] # (Auto) Eos # (Auto) Seg Neutrophils % Seg Neuts % (Manual) Lymphocytes % (Manual) Monocytes % (Manual) Nucleated RBC % Seg Neutrophils # Seg Neutrophils # Man Lymphocytes # (Manual) Monocytes # (Manual) Eosinophils # (Manual) PT INR ABG pH 7.313 L POC ABG pCO2 POC ABG pO2 67.0 L ABG pO2 ABG Base Excess ABG Hemoglobin ABG Oxyhemoglobin ABG Potassium 3.2 L ABG Chloride 115.0 H ABG Glucose VBG pH Oxyhemoglobin Carboxyhemoglobin Sodium Potassium Chloride Carbon Dioxide BUN Creatinine Glucose POC Glucose 64 L 62 L Lactic Acid Calcium Phosphorus Magnesium Total Bilirubin Direct Bilirubin AST ALT Alkaline Phosphatase Ammonia Total Creatine Kinase C-Reactive Protein Total Protein Albumin Lipase Arterial Blood Glucose Arterial Blood Ionized Calcium 4.3 L Urine WBC (Auto) U Epithel Cells (Auto) Acetaminophen Syphilis IgG Antibody HSV I Specific Ab Crossmatch 07/23/20 07/23/20 07/23/20 07:39 07:39 23:52 WBC 37.0 H RBC 2.30 L Hgb 7.8 L Hct 22.5 L MCV 98 H MCH 34 H MCHC 35 H RDW 21.3 H Plt Count 55 L Lymph % (Auto) [place] % (Auto) Lymph # (Auto) [place] # (Auto) Eos # (Auto) Seg Neutrophils % Seg Neuts % (Manual) 78.0 H Lymphocytes % (Manual) 10.0 L Monocytes % (Manual) Nucleated RBC % 3.0 H Seg Neutrophils # Seg Neutrophils # Man 28.9 H Lymphocytes # (Manual) Monocytes # (Manual) 1.1 H Eosinophils # (Manual) 0.7 H PT INR ABG pH POC ABG pCO2 POC ABG pO2 ABG pO2 ABG Base Excess ABG Hemoglobin ABG Oxyhemoglobin ABG Potassium ABG Chloride ABG Glucose VBG pH Oxyhemoglobin Carboxyhemoglobin Sodium 148 H Potassium Chloride 114.0 H Carbon Dioxide BUN 59 H Creatinine 1.5 H Glucose POC Glucose Lactic Acid Calcium 7.7 L Phosphorus 4.60 H D Magnesium Total Bilirubin 11.20 H Direct Bilirubin AST 245 H ALT 242 H Alkaline Phosphatase 423 H Ammonia Total Creatine Kinase C-Reactive Protein 17.20 H Total Protein 4.3 L Albumin 1.8 L Lipase Arterial Blood Glucose Arterial Blood Ionized Calcium Urine WBC (Auto) U Epithel Cells (Auto) Acetaminophen Syphilis IgG Antibody HSV I Specific Ab Crossmatch 07/23/20 07/24/20 07/24/20 Unknown 03:39 10:14 WBC RBC Hgb Hct MCV MCH MCHC RDW Plt Count Lymph % (Auto) [place] % (Auto) Lymph # (Auto) [place] # (Auto) Eos # (Auto) Seg Neutrophils % Seg Neuts % (Manual) Lymphocytes % (Manual) Monocytes % (Manual) Nucleated RBC % Seg Neutrophils # Seg Neutrophils # Man Lymphocytes # (Manual) Monocytes # (Manual) Eosinophils # (Manual) PT INR ABG pH POC ABG pCO2 POC ABG pO2 147.8 H ABG pO2 ABG Base Excess ABG Hemoglobin 5.5 L ABG Oxyhemoglobin ABG Potassium 3.0 L ABG Chloride 117.0 H ABG Glucose VBG pH Oxyhemoglobin Carboxyhemoglobin Sodium 150 H Potassium 2.6 L* D Chloride 117.1 H Carbon Dioxide BUN 48 H Creatinine Glucose POC Glucose Lactic Acid Calcium 8.2 L Phosphorus Magnesium Total Bilirubin Direct Bilirubin AST ALT Alkaline Phosphatase Ammonia Total Creatine Kinase C-Reactive Protein Total Protein Albumin Lipase Arterial Blood Glucose Arterial Blood Ionized Calcium Urine WBC (Auto) 102.0 H U Epithel Cells (Auto) Acetaminophen Syphilis IgG Antibody HSV I Specific Ab Crossmatch 07/24/20 07/24/20 07/24/20 10:14 10:14 10:14 WBC RBC Hgb Hct MCV MCH MCHC RDW Plt Count Lymph % (Auto) [place] % (Auto) Lymph # (Auto) [place] # (Auto) Eos # (Auto) Seg Neutrophils % Seg Neuts % (Manual) Lymphocytes % (Manual) Monocytes % (Manual) Nucleated RBC % Seg Neutrophils # Seg Neutrophils # Man Lymphocytes # (Manual) Monocytes # (Manual) Eosinophils # (Manual) PT 22.7 H INR 1.99 H ABG pH POC ABG pCO2 POC ABG pO2 ABG pO2 ABG Base Excess ABG Hemoglobin ABG Oxyhemoglobin ABG Potassium ABG Chloride ABG Glucose VBG pH Oxyhemoglobin Carboxyhemoglobin Sodium Potassium Chloride Carbon Dioxide BUN Creatinine Glucose POC Glucose Lactic Acid Calcium Phosphorus 2.30 L D Magnesium 1.50 L Total Bilirubin 10.30 H Direct Bilirubin 7.8 H AST 144 H ALT 129 H Alkaline Phosphatase 308 H Ammonia Total Creatine Kinase C-Reactive Protein Total Protein 4.2 L Albumin 2.4 L Lipase Arterial Blood Glucose Arterial Blood Ionized Calcium Urine WBC (Auto) U Epithel Cells (Auto) Acetaminophen Syphilis IgG Antibody HSV I Specific Ab Crossmatch Assessment and Plan 29 yo female with hepatic/renal failure and s/p cardiac arrest w/ anoxic brain injury Recs - Monitor ammonia level; metabolic derangements; Recommend eeg to confirm no evidence of status epielpticus; Family (mother) at bedside is requesting a mri brain for prognositication, when clinically stable; Family (mother) is requesting an update regarding patient's clinical status. Sanya Brown MD Neurology
--- NOTE | 2020-07-24 16:38 | Gastroenterology Progress Note ---
Assessment and Plan # Acute liver failure - etiology possible ETOH vs tylenol or both. completed NAC therapy. Liver enzymes are stable. INR at 1.9 from 1.8. Expect Tbili that will slow to return to normal. - s/p cardiac arrest on 07/19/[address] head on 07/19/2020 showing cerebral edema. Unclear if there is recovering from neurological standpoint. Neurology consulted today. - case discussed with [facility] on 07/22/2020 and 07/23/2020. No benefit from transfer for liver standpoint as recommendations are for supportive care and patient not stable for transfer with pressor requirement. - neurology consult today and recommend for EEG. Rec - avoid hepatotoxins. - monitor LFTs and INR daily. - will follow. Subjective Date of service: 07/24/20 Principal diagnosis: Acute Liver Injury Interval history: Patient remains unresponsive and intubated. Remains on two pressors. Objective - Constitutional Vitals: Temp Pulse Resp BP Pulse Ox 97.3 F L 83 18 107/57 98 07/24/20 12:00 07/24/20 13:56 07/24/20 07:45 07/24/20 13:56 07/24/20 13:56 General appearance: other (intubated) - Respiratory Respiratory effort: other (intubated) - Cardiovascular Rhythm: regular Heart Sounds: Present: S1 & S2 - Gastrointestinal General gastrointestinal: Present: soft, non-distended - Neurologic Neurological: other (unresponsive) - Labs CBC & Chem 7: 07/23/20 07:39 07/24/20 10:14 Labs: Laboratory Results - last 24 hr 07/23/20 07/23/20 07/23/20 16:50 19:42 23:52 PT INR ABG pH POC ABG pCO2 POC ABG pO2 POC ABG HCO3 POC ABG Base Excess ABG Hemoglobin ABG Sodium ABG Potassium ABG Chloride ABG Glucose FiO2 Sodium Potassium Chloride Carbon Dioxide Anion Gap BUN Creatinine Estimated GFR BUN/Creatinine Ratio Glucose POC Glucose 98 95 Calcium Phosphorus Magnesium Total Bilirubin Direct Bilirubin Indirect Bilirubin AST ALT Alkaline Phosphatase C-Reactive Protein 17.20 H Total Protein Albumin Albumin/Globulin Ratio Procalcitonin Arterial Blood Glucose Arterial Blood Ionized Calcium Urine Color Urine Turbidity Urine pH Ur Specific [place] Urine Protein Urine Glucose (UA) Urine Ketones Urine Blood Urine Nitrite Urine Bilirubin Urine Ictotest Urine Urobilinogen Ur Leukocyte Esterase Urine WBC (Auto) Urine RBC (Auto) U Epithel Cells (Auto) Urine Bacteria (Auto) Urine WBC Clumps Urine Mucus Urine Yeast (Budding) 07/23/20 07/23/20 07/24/20 23:52 Unknown 00:10 PT INR ABG pH POC ABG pCO2 POC ABG pO2 POC ABG HCO3 POC ABG Base Excess ABG Hemoglobin ABG Sodium ABG Potassium ABG Chloride ABG Glucose FiO2 Sodium Potassium Chloride Carbon Dioxide Anion Gap BUN Creatinine Estimated GFR BUN/Creatinine Ratio Glucose POC Glucose 93 Calcium Phosphorus Magnesium Total Bilirubin Direct Bilirubin Indirect Bilirubin AST ALT Alkaline Phosphatase C-Reactive Protein Total Protein Albumin Albumin/Globulin Ratio Procalcitonin 13.66 Arterial Blood Glucose Arterial Blood Ionized Calcium Urine Color Aide Urine Turbidity Cloudy Urine pH 5.0 Ur Specific [place] 1.013 Urine Protein <15 mg/dl Urine Glucose (UA) Neg Urine Ketones Neg Urine Blood Sm Urine Nitrite Neg Urine Bilirubin Mod Urine Ictotest Positive Urine Urobilinogen 2.0 Ur Leukocyte Esterase Lg Urine WBC (Auto) 102.0 H Urine RBC (Auto) > 182.0 U Epithel Cells (Auto) 13.0 Urine Bacteria (Auto) 4+ Urine WBC Clumps 3+ Urine Mucus Few Urine Yeast (Budding) 3+ 07/24/20 07/24/20 07/24/20 03:39 04:01 09:59 PT INR ABG pH 7.423 POC ABG pCO2 35.6 POC ABG pO2 147.8 H POC ABG HCO3 22.7 POC ABG Base Excess -1.6 ABG Hemoglobin 5.5 L ABG Sodium 143.5 ABG Potassium 3.0 L ABG Chloride 117.0 H ABG Glucose 89 FiO2 50 Sodium Potassium Chloride Carbon Dioxide Anion Gap BUN Creatinine Estimated GFR BUN/Creatinine Ratio Glucose POC Glucose 83 72 Calcium Phosphorus Magnesium Total Bilirubin Direct Bilirubin Indirect Bilirubin AST ALT Alkaline Phosphatase C-Reactive Protein Total Protein Albumin Albumin/Globulin Ratio Procalcitonin Arterial Blood Glucose 89 Arterial Blood Ionized Calcium 4.6 Urine Color Urine Turbidity Urine pH Ur Specific [place] Urine Protein Urine Glucose (UA) Urine Ketones Urine Blood Urine Nitrite Urine Bilirubin Urine Ictotest Urine Urobilinogen Ur Leukocyte Esterase Urine WBC (Auto) Urine RBC (Auto) U Epithel Cells (Auto) Urine Bacteria (Auto) Urine WBC Clumps Urine Mucus Urine Yeast (Budding) 07/24/20 07/24/20 07/24/20 10:14 10:14 10:14 PT 22.7 H INR 1.99 H ABG pH POC ABG pCO2 POC ABG pO2 POC ABG HCO3 POC ABG Base Excess ABG Hemoglobin ABG Sodium ABG Potassium ABG Chloride ABG Glucose FiO2 Sodium 150 H Potassium 2.6 L* D Chloride 117.1 H Carbon Dioxide 25 Anion Gap 11 BUN 48 H Creatinine 0.9 Estimated GFR > 60 BUN/Creatinine Ratio 53 Glucose 78 POC Glucose Calcium 8.2 L Phosphorus 2.30 L D Magnesium 1.50 L Total Bilirubin Direct Bilirubin Indirect Bilirubin AST ALT Alkaline Phosphatase C-Reactive Protein Total Protein Albumin Albumin/Globulin Ratio Procalcitonin Arterial Blood Glucose Arterial Blood Ionized Calcium Urine Color Urine Turbidity Urine pH Ur Specific [place] Urine Protein Urine Glucose (UA) Urine Ketones Urine Blood Urine Nitrite Urine Bilirubin Urine Ictotest Urine Urobilinogen Ur Leukocyte Esterase Urine WBC (Auto) Urine RBC (Auto) U Epithel Cells (Auto) Urine Bacteria (Auto) Urine WBC Clumps Urine Mucus Urine Yeast (Budding) 07/24/20 10:14 PT INR ABG pH POC ABG pCO2 POC ABG pO2 POC ABG HCO3 POC ABG Base Excess ABG Hemoglobin ABG Sodium ABG Potassium ABG Chloride ABG Glucose FiO2 Sodium Potassium Chloride Carbon Dioxide Anion Gap BUN Creatinine Estimated GFR BUN/Creatinine Ratio Glucose POC Glucose Calcium Phosphorus Magnesium Total Bilirubin 10.30 H Direct Bilirubin 7.8 H Indirect Bilirubin 2.5 AST 144 H ALT 129 H Alkaline Phosphatase 308 H C-Reactive Protein Total Protein 4.2 L Albumin 2.4 L Albumin/Globulin Ratio 1.3 Procalcitonin Arterial Blood Glucose Arterial Blood Ionized Calcium Urine Color Urine Turbidity Urine pH Ur Specific [place] Urine Protein Urine Glucose (UA) Urine Ketones Urine Blood Urine Nitrite Urine Bilirubin Urine Ictotest Urine Urobilinogen Ur Leukocyte Esterase Urine WBC (Auto) Urine RBC (Auto) U Epithel Cells (Auto) Urine Bacteria (Auto) Urine WBC Clumps Urine Mucus Urine Yeast (Budding)
[2020-07-24] MEDS ORDERED: MAGNESIUM SULFATE 2 GM/50 ML BAG IV ONE (17:00)
[2020-07-24] MEDS ORDERED: SODIUM PHOSPHATE 30 MMOL in SODIUM CHLORIDE 0.9% 500 ML 500 ML IV ONE (17:00)
--- NOTE | 2020-07-24 20:28 | Progress Note ---
Assessment and Plan - Patient Problems (1) Severe sepsis with septic shock Current Visit: Yes Status: Acute Plan to address problem: Sepsis protocol, IV pressor support, IV antibiotic therapy, IV fluid resuscitation therapy, maintain mean arterial pressure greater than or equal to 65, monitor urine output every shift, serial lactic acid level The high probability of a clinically significant, sudden or life threatening deterioration of the [neuro, cardiac, renal, pulmonary] system(s) required my full and direct attention, intervention and personal management. The aggregate critical care time was [90] minutes. This time is in addition to time spent performing reported procedures but includes the following: [x] Data Review and interpretation [x] Patient assessment and monitoring of vital signs [x] Documentation [x] Medication orders and management (2) Acute respiratory failure Current Visit: Yes Status: Acute Qualifiers: Respiratory failure complication: hypoxia Qualified Code(s): J96.01 - Acute respiratory failure with hypoxia Plan to address problem: Patient intubated and placed on ventilatory support overnight. Wean vent as tolerated, pulmonary team consulted, spontaneous breathing trial daily, sedation holiday, supportive care. (3) Acute liver failure Current Visit: Yes Status: Acute Plan to address problem: Supportive care, GI team consulted. Pt has poor prognosis, and currently unstable for transfer. (4) Metabolic acidosis Current Visit: Yes Status: Acute Plan to address problem: BMP, IV bicarbonate therapy, repeat BMP (5) UTI (urinary tract infection) Current Visit: Yes Status: Acute Qualifiers: Encounter type: initial encounter Plan to address problem: IV antibiotic therapy, supportive care. (6) DVT prophylaxis Current Visit: Yes Status: Acute Plan to address problem: SCD to bilateral lower extremities while in bed (7) Acute kidney injury (RINA) with acute tubular necrosis (ATN) Current Visit: Yes Status: Acute Plan to address problem: Nephrology team consulted, IV fluid resuscitation therapy, monitor urine output every shift, monitor fluid balance, supportive care. (8) Cardiac arrest Current Visit: Yes Status: Acute Plan to address problem: Patient experienced cardiac arrest overnight. Patient treated with ACLS protocol with eventual return of perfusing cardiac rhythm. Patient has poor prognosis. (9) Toxic metabolic encephalopathy Current Visit: Yes Status: Acute Plan to address problem: CT scan head, when medically stable, supportive care, continue medical management. Suspect anoxic brain injury. (10) Advance care planning Current Visit: Yes Status: Acute Plan to address problem: Disease education conducted, patient is full code, patient prognosis discussed with patient mother Tete Gao as well as patient xiomara today., patient family informed the patient shows no sign of brain function and is on multiple medications to maintain her current status. Patient family informed that patient has experienced nonsurvivable physiologic insult and has suffered anoxic brain injury. Patient family acknowledges prognosis but declines to make decision for gait regarding withdrawal of care due to patient's 5 children and that the need for necessary arrangements to be made for the care of the children. Awaiting decision on withdrawal of care. . Patient family informed of care plan. +60 minutes. History Interval history: 29 YO Female HD #9 with Severe Sepsis complicated by Shock, Fulminant Hepatic Failure, ETOH Dependence, RINA with ATN, Toxic Metabolic Encephalopathy, Elevated INR, Metabolic Acidosis, Acute Respiratory Failure S/P Cardiac Arrest, Anoxic Brain Injury. Patient is critically ill and has very poor prognosis. Patient currently intubated and on ventilatory support. Patient has poor prognosis. No significant overnight improvement. Patient prognosis discussed again with patient mother and xiomara. Patient family acknowledges understanding patient condition and prognosis. Hospitalist Physical - Constitutional Vitals: Temp Pulse Resp BP Pulse Ox 97.3 F L 77 18 106/66 97 07/24/20 16:00 07/24/20 19:30 07/24/20 19:30 07/24/20 19:30 07/24/20 19:30 General appearance: Present: severe distress, other (Lethargic not quite encephalopathic alert appears to be tired. Patient states she is just fatigued.) - EENT Eyes: Present: mydriasis - Neck Neck: Present: supple - Respiratory Respiratory effort: labored Respiratory: bilateral: diminished, rhonchi - Cardiovascular Rhythm: regular Heart Sounds: Present: S1 & S2 - Extremities Extremities: no ischemia Extremity abnormal: edema Peripheral Pulses: within normal limits - Abdominal General gastrointestinal: soft, non-tender, distended - Integumentary Integumentary: Present: clear, dry - Psychiatric Psychiatric: no appropriate mood/affect, no intact judgment & insight, no memory intact - Neurologic Neurologic: no CNII-XII intact, focal deficits, no moves all extremities, no gait normal HEART Score - HEART Score Troponin: Troponin T < 0.010 ng/mL (0.00-0.029) 07/16/20 20:47 Results - Labs CBC & Chem 7: 07/23/20 07:39 07/24/20 10:14 Labs: Laboratory Last Values WBC 37.0 K/mm3 (4.5-11.0) H 07/23/20 07:39 RBC 2.30 M/mm3 (3.65-5.03) L 07/23/20 07:39 Hgb 7.8 gm/dl (10.1-14.3) L 07/23/20 07:39 Hct 22.5 % (30.3-42.9) L 07/23/20 07:39 MCV 98 fl (79-97) H 07/23/20 07:39 MCH 34 pg (28-32) H 07/23/20 07:39 MCHC 35 % (30-34) H 07/23/20 07:39 RDW 21.3 % (13.2-15.2) H 07/23/20 07:39 Plt Count 55 K/mm3 (140-440) L 07/23/20 07:39 Lymph % (Auto) 9.7 % (13.4-35.0) L 07/19/20 05:41 Bandera % (Auto) Color Blender 07/23/20 07:39 Eos % (Auto) 0.8 % (0.0-4.3) 07/19/20 05:41 Baso % (Auto) 0.0 % (0.0-1.8) 07/19/20 05:41 Lymph # (Auto) Color Blender 07/23/20 07:39 Bandera # (Auto) 1.3 K/mm3 (0.0-0.8) H 07/19/20 05:41 Eos # (Auto) 0.1 K/mm3 (0.0-0.4) 07/19/20 05:41 Baso # (Auto) 0.0 K/mm3 (0.0-0.1) 07/19/20 05:41 Add Manual Diff Complete 07/23/20 07:39 Total Counted 100 07/23/20 07:39 Seg Neutrophils % 81.2 % (40.0-70.0) H 07/19/20 05:41 Seg Neuts % (Manual) 78.0 % (40.0-70.0) H 07/23/20 07:39 Band Neutrophils % 7.0 % 07/23/20 07:39 Lymphocytes % (Manual) 10.0 % (13.4-35.0) L 07/23/20 07:39 Monocytes % (Manual) 3.0 % (0.0-7.3) 07/23/20 07:39 Eosinophils % (Manual) 2.0 % (0.0-4.3) 07/23/20 07:39 Metamyelocytes % 1.0 % 07/22/20 07:57 Myelocytes % 1.0 % 07/19/20 05:41 Nucleated RBC % 3.0 % (0.0-0.9) H 07/23/20 07:39 Seg Neutrophils # 12.9 K/mm3 (1.8-7.7) H 07/19/20 05:41 Seg Neutrophils # Man 28.9 K/mm3 (1.8-7.7) H 07/23/20 07:39 Band Neutrophils # 2.6 K/mm3 07/23/20 07:39 Lymphocytes # (Manual) 3.7 K/mm3 (1.2-5.4) 07/23/20 07:39 Abs React Lymphs (Man) 0.0 K/mm3 07/23/20 07:39 Monocytes # (Manual) 1.1 K/mm3 (0.0-0.8) H 07/23/20 07:39 Eosinophils # (Manual) 0.7 K/mm3 (0.0-0.4) H 07/23/20 07:39 Basophils # (Manual) 0.0 K/mm3 (0.0-0.1) 07/23/20 07:39 Metamyelocytes # 0.0 K/mm3 07/23/20 07:39 Myelocytes # 0.0 K/mm3 07/23/20 07:39 Promyelocytes # 0.0 K/mm3 07/23/20 07:39 Blast Cells # 0.0 K/mm3 07/23/20 07:39 Pathologist Review 07/16/20 20:47 WBC Morphology Not Reportable 07/23/20 07:39 WBC Morphology TNR 07/23/20 07:39 Hypersegmented Neuts Not Reportable 07/23/20 07:39 Hyposegmented Neuts Not Reportable 07/23/20 07:39 Hypogranular Neuts Not Reportable 07/23/20 07:39 Smudge Cells Not Reportable 07/23/20 07:39 Toxic Granulation Not Reportable 07/23/20 07:39 Toxic Vacuolation Not Reportable 07/23/20 07:39 Dohle Bodies Not Reportable 07/23/20 07:39 Pelger-Huet Anomaly Not Reportable 07/23/20 07:39 Fede Rods Not Reportable 07/23/20 07:39 Platelet Estimate Not Reportable 07/23/20 07:39 Clumped Platelets Not Reportable 07/23/20 07:39 Plt Clumps, EDTA Not Reportable 07/23/20 07:39 Large Platelets Not Reportable 07/23/20 07:39 Giant Platelets Not Reportable 07/23/20 07:39 Platelet Satelliting Not Reportable 07/23/20 07:39 Plt Morphology Comment Not Reportable 07/23/20 07:39 RBC Morphology Not Reportable 07/23/20 07:39 Dimorphic RBCs Not Reportable 07/23/20 07:39 Polychromasia 1+ 07/23/20 07:39 Hypochromasia Not Reportable 07/23/20 07:39 Poikilocytosis 2+ 07/23/20 07:39 Anisocytosis 1+ 07/23/20 07:39 Microcytosis Not Reportable 07/23/20 07:39 Macrocytosis Not Reportable 07/23/20 07:39 Spherocytes Not Reportable 07/23/20 07:39 Pappenheimer Bodies Not Reportable 07/23/20 07:39 Sickle Cells Not Reportable 07/23/20 07:39 Target Cells 2+ 07/23/20 07:39 Tear Drop Cells Not Reportable 07/23/20 07:39 Ovalocytes 1+ 07/23/20 07:39 Helmet Cells Not Reportable 07/23/20 07:39 D[place]ds[place] Bodies Not Reportable 07/23/20 07:39 P[place]leton Rings Not Reportable 07/23/20 07:39 Shashank Cells Not Reportable 07/23/20 07:39 Bite Cells Not Reportable 07/23/20 07:39 Crenated Cell Not Reportable 07/23/20 07:39 Elliptocytes Not Reportable 07/23/20 07:39 Acanthocytes (Spur) Not Reportable 07/23/20 07:39 Rouleaux Not Reportable 07/23/20 07:39 Hemoglobin C Crystals Not Reportable 07/23/20 07:39 Schistocytes Not Reportable 07/23/20 07:39 Malaria parasites Not Reportable 07/23/20 07:39 Richard Bodies Not Reportable 07/23/20 07:39 Hem Pathologist Commnt No 07/23/20 07:39 PT 22.7 Sec. (12.2-14.9) H 07/24/20 10:14 INR 1.99 (0.87-1.13) H 07/24/20 10:14 ABG pH 7.423 (7.320-7.450) 07/24/20 03:39 POC ABG pCO2 35.6 mmHg (32.0-48.0) 07/24/20 03:39 ABG pCO2 31.2 mm Hg 07/22/20 04:25 POC ABG pO2 147.8 mmHg (83-108) H 07/24/20 03:39 ABG pO2 104.9 mm Hg (80.0-90.0) H 07/22/20 04:25 POC ABG HCO3 22.7 07/24/20 03:39 ABG HCO3 23.7 mmol/L (20.0-26.0) 07/22/20 04:25 ABG O2 Saturation 98.1 % (95.0-99.0) 07/22/20 04:25 ABG O2 Content 11.7 (0.0-44) 07/22/20 04:25 POC ABG Base Excess -1.6 07/24/20 03:39 ABG Base Excess 0.8 mmol/L (-2.0-3.0) 07/22/20 04:25 ABG Hemoglobin 5.5 (12.0-17.5) L 07/24/20 03:39 ABG Oxyhemoglobin 96.3 (94-98) 07/20/20 10:42 ABG Carboxyhemoglobin 2.3 % (0.0-5.0) 07/22/20 04:25 ABG Methemoglobin 0.5 % (0.0-1.5) 07/22/20 04:25 ABG Sodium 143.5 mmol/L (136.0-145.0) 07/24/20 03:39 ABG Potassium 3.0 mmol/L (3.40-4.50) L 07/24/20 03:39 ABG Chloride 117.0 mmol/L (98-107) H 07/24/20 03:39 ABG Glucose 89 mg/dL (65-95) 07/24/20 03:39 VBG pH 7.085 (7.320-7.420) L* 07/17/20 01:46 Oxyhemoglobin 95.4 % (95.0-99.0) 07/22/20 04:25 Carboxyhemoglobin 1.9 (0.5-1.5) H 07/20/20 10:42 FiO2 50 07/24/20 03:39 Sodium 150 mmol/L (137-145) H 07/24/20 10:14 Potassium 2.6 mmol/L (3.6-5.0) L* D 07/24/20 10:14 Chloride 117.1 mmol/L (98-107) H 07/24/20 10:14 Carbon Dioxide 25 mmol/L (22-30) 07/24/20 10:14 Anion Gap 11 mmol/L 07/24/20 10:14 BUN 48 mg/dL (7-17) H 07/24/20 10:14 Creatinine 0.9 mg/dL (0.6-1.2) 07/24/20 10:14 Estimated GFR > 60 ml/min 07/24/20 10:14 BUN/Creatinine Ratio 53 % 07/24/20 10:14 Glucose 78 mg/dL (65-100) 07/24/20 10:14 POC Glucose 71 mg/dL (70-105) 07/24/20 18:42 Lactic Acid 3.90 mmol/L (0.7-2.0) H* 07/19/20 Unknown Calcium 8.2 mg/dL (8.4-10.2) L 07/24/20 10:14 Phosphorus 2.30 mg/dL (2.5-4.5) L D 07/24/20 10:14 Magnesium 1.50 mg/dL (1.7-2.3) L 07/24/20 10:14 Total Bilirubin 10.30 mg/dL (0.1-1.2) H 07/24/20 10:14 Direct Bilirubin 7.8 mg/dL (0-0.2) H 07/24/20 10:14 Indirect Bilirubin 2.5 mg/dL 07/24/20 10:14 AST 144 units/L (5-40) H 07/24/20 10:14 ALT 129 units/L (7-56) H 07/24/20 10:14 Alkaline Phosphatase 308 units/L (35-129) H 07/24/20 10:14 Ammonia 96.0 umol/L (25-60) H 07/19/20 05:41 Total Creatine Kinase 332 units/L (30-135) H 07/17/20 09:23 Troponin T < 0.010 ng/mL (0.00-0.029) 07/16/20 20:47 C-Reactive Protein 17.20 mg/dL (0.00-1.30) H 07/23/20 23:52 Total Protein 4.2 g/dL (6.3-8.2) L 07/24/20 10:14 Albumin 2.4 g/dL (3.9-5) L 07/24/20 10:14 Albumin/Globulin Ratio 1.3 % 07/24/20 10:14 Lipase 14 units/L (13-60) 07/17/20 01:46 Procalcitonin 13.66 ng/mL (<0.15) 07/23/20 23:52 TSH 0.354 mlU/mL (0.270-4.200) 07/16/20 20:47 HCG, Qual Negative (Negative) 07/19/20 07:35 Arterial Blood Glucose 89 mg/dL (65-95) 07/24/20 03:39 Arterial Blood Ionized Calcium 4.6 mg/dL (4.6-5.3) 07/24/20 03:39 Urine Color Aide (Yellow) 07/23/20 Unknown Urine Turbidity Cloudy (Clear) 07/23/20 Unknown Urine pH 5.0 (5.0-7.0) 07/23/20 Unknown Ur Specific [place] 1.013 (1.003-1.030) 07/23/20 Unknown Urine Protein <15 mg/dl mg/dL (Negative) 07/23/20 Unknown Urine Glucose (UA) Neg mg/dL (Negative) 07/23/20 Unknown Urine Ketones Neg mg/dL (Negative) 07/23/20 Unknown Urine Blood Sm (Negative) 07/23/20 Unknown Urine Nitrite Neg (Negative) 07/23/20 Unknown Urine Bilirubin Mod (Negative) 07/23/20 Unknown Urine Ictotest Positive (Negative) 07/23/20 Unknown Urine Urobilinogen 2.0 mg/dL (<2.0) 07/23/20 Unknown Ur Leukocyte Esterase Lg (Negative) 07/23/20 Unknown Urine WBC (Auto) 102.0 /HPF (0.0-6.0) H 07/23/20 Unknown Urine RBC (Auto) > 182.0 /HPF (0.0-6.0) 07/23/20 Unknown U Epithel Cells (Auto) 13.0 /HPF (0-13.0) 07/23/20 Unknown Urine Bacteria (Auto) 4+ /HPF (Negative) 07/23/20 Unknown Urine WBC Clumps 3+ /HPF 07/23/20 Unknown Urine Mucus Few /HPF 07/23/20 Unknown Urine Yeast (Budding) 3+ /HPF 07/23/20 Unknown Acetaminophen 5.0 ug/mL (10.0-30.0) L 07/17/20 09:23 MARY Screen Negative (Negative) 07/17/20 11:08 Syphilis IgG Antibody Reactive (NonReactive) A 07/17/20 11:08 RPR Titer Nr 07/17/20 11:08 T.pallidum Ab (FTA-ABS) Nonreactive (Nonreactive) 07/18/20 Unknown C.trachomatis DNA (SDA) Not detected (Not Detected) 07/17/20 02:25 Hepatitis A IgM Ab Non-reactive (NonReactive) 07/17/20 11:08 Hep Bs Antigen Non-reactive (Negative) 07/17/20 11:08 Hep B Core IgM Ab Non-reactive (NonReactive) 07/17/20 11:08 Hepatitis C Antibody Non-reactive (NonReactive) 07/17/20 11:08 HSV I Specific Ab 5.23 Index (<0.90) H 07/17/20 11:08 HIV 1&2 Antibody Rapid Non react (Non React) 07/17/20 11:08 HIV P24 Antigen Non react (Non React) 07/17/20 11:08 N.gonorrhoeae DNA (SDA) Not detected (Not Detected) 07/17/20 02:25 Blood Type O POSITIVE 07/19/20 07:35 Antibody Screen Negative 07/19/20 07:35 Crossmatch See Detail 07/19/20 07:35 Microbiology: Microbiology 07/22/20 20:47 Peripheral/Venous Blood Culture - Preliminary NO GROWTH AFTER 24 HOURS 07/22/20 20:47 Peripheral/Venous Blood Culture - Preliminary NO GROWTH AFTER 24 HOURS [place]/IV: Voiding Method Indwelling Catheter IV Catheter Type [Right Triple Lumen Cath Femoral] IV Catheter Type [Right Hand] Peripheral IV IV Catheter Type [Left Hand] INT / Saline Lock IV Catheter Type [Acetadote ( Peripheral IV Acetylcysteine IV) 7,500 mg In D5w 1,000 ml @ 62.5 mls/hr IV ONCE ONE Rx#:[id number]] IV Catheter Type [Sodium Triple Lumen Cath Bicarbonate 50 Meq In NaCl 0.9 % 1000 ml 1,000 ml @ 100 mls/ hr IV DIRECT ESTELA Rx#: [id number]] Active Medications - Current Medications Current Medications: Generic Name Dose Route Start Last Admin Trade Name Freq PRN Reason Stop Dose Admin Acetaminophen 650 mg 07/23/20 00:37 07/23/20 01:05 Acetaminophen 325 Mg/10.15 Ml Oral Liqd Unit Dose FEEDTUBE 650 mg Q6H PRN Administration Fever >101 Lipase/Protease/Amylase 1 each 07/23/20 08:37 Lipase 10,500/Protease 25,000/Amylase 43,750 (Units) Dr Cap FEEDTUBE PRN PRN For Clogged Feeding Tube Acyclovir 370 mg/ Sodium 107.4 mls @ 100 mls/hr 07/17/20 12:00 07/24/20 10:02 Chloride IV 100 mls/hr Q12HR ESTELA Administration Protocol Thiamine HCl 100 mg/ Sodium 51 mls @ 100 mls/hr 07/18/20 10:00 07/24/20 10:02 Chloride IV 100 mls/hr QDAY ESTELA Administration Folic Acid 1 mg/ Sodium 50.2 mls @ 200.8 mls/hr 07/18/20 10:00 07/24/20 09:53 Chloride IV 200.8 mls/hr QDAY ESTELA Administration Dopamine HCl/Dextrose 800 mg in 250 mls @ 2.807 mls/hr 07/19/20 05:45 07/19/20 05:55 Intropin Drip 800 Mg/D5w 250 Ml IV 20 mcg/kg/min TITR ESTELA 28.066 mls/hr Administration Protocol 2 MCG/KG/MIN Vasopressin 20 unit/ Sodium 101 mls @ 9.09 mls/hr 07/19/20 10:00 07/24/20 11:43 Chloride IV 0.03 units/min TITR ESTELA 9.09 mls/hr Administration Protocol 0.03 UNITS/MIN Norepinephrine 8 mg/ Sodium 250 mls @ 3.75 mls/hr 07/19/20 21:00 07/24/20 12:00 Chloride IV 4 mcg/min TITR ESTELA 7.5 mls/hr Titration Protocol 2 MCG/MIN Phenylephrine HCl 100 mg/ 100 mls @ 3 mls/hr 07/22/20 19:45 Sodium Chloride IV TITR ESTELA Protocol 50 MCG/MIN Cefepime HCl 2 gm in 100 mls @ 200 mls/hr 07/23/20 14:00 07/24/20 17:00 Cefepime/Ns 2 Gm/100 Ml IV 200 mls/hr Q12H ESTELA Administration Protocol Vancomycin HCl 1,250 mg/ 275 mls @ 166.667 mls/hr 07/24/20 22:00 Sodium Chloride IV Q24H [facility] Sodium Phosphate 30 mmol/ 510 mls @ 125 mls/hr 07/24/20 17:00 Sodium Chloride IV 07/24/20 21:04 ONCE ONE Potassium Chloride 10 meq in 100 mls @ 100 mls/hr 07/24/20 17:00 Kcl 10meq/100ml IV 07/24/20 20:59 Q1H ESTELA Magnesium Hydroxide 30 ml 07/17/20 03:56 Magnesium Hydroxide (Mom) Oral Liqd Udc PO Q4H PRN Constipation Ondansetron HCl 4 mg 07/17/20 03:56 07/18/20 20:00 Ondansetron 4 Mg/2 Ml Inj IV 4 mg Q8H PRN Administration Nausea And Vomiting Pantoprazole Sodium 40 mg 07/24/20 10:00 07/24/20 11:46 Pantoprazole 40 Mg Inj IV 40 mg BID ESTELA Administration Simple Syrup 15 ml 07/23/20 08:37 Simple Syrup 15 Ml FEEDTUBE PRN PRN Hypoglycemia Simple Syrup 30 ml 07/23/20 08:37 Simple Syrup 15 Ml FEEDTUBE PRN PRN Hypoglycemia Sodium Bicarbonate 325 mg 07/23/20 08:37 Sodium Bicarbonate 325 Mg Tab FEEDTUBE PRN PRN For Clogged Feeding Tube Sodium Chloride 10 ml 07/17/20 10:00 07/24/20 10:02 Sodium Chloride 0.9% 10 Ml Flush Syringe IV 10 ml BID ESTELA Administration Sodium Chloride 10 ml 07/17/20 03:56 Sodium Chloride 0.9% 10 Ml Flush Syringe IV PRN PRN LINE FLUSH Nutrition/Malnutrition Assess - Dietary Evaluation Nutrition/Malnutrition Findings: Nutrition Notes Start: 07/23/20 08:22 Freq: Status: Active Protocol: Document 07/23/20 08:22 (Rec: 07/23/20 08:36 [email or web address]) Nutrition Notes Need for Assessment generated from: MD Order Initial or Follow up Assessment Current Diagnosis Acute Kidney Injury,Sepsis, Respiratory Failure Other Pertinent Diagnosis Acute liver failurem UTI, cardiac arrest, ETOH dependence Current Diet No diet Labs/Tests Na 148 BUN 59 Cr 1.5 Phos 4.6 Pertinent Medications D5w 50 ml Norepi 45ml/hr 07/22: Sodium phos 30 mmol Height 5 ft 2 in Weight 76 kg [place] Body Weight (kg) 50.00 BMI 30.6 Weight Status Obese Subjective/Other Information MD order for TF. Pt was intubated on 07/20 after cardiac arrest. Pt has 2+ nonpitting edema on legs and nonpitting on arms and face. Pt with coffee ground emesis this morning. Burn Absent Trauma Absent GI Symptoms Vomiting Current % PO Negligible Minimum of two criteria No Fluid Accumulation Mild (non-severe) #1 Nutrition Diagnosis Inadequate oral intake Etiology acute respiratory failure As Evidenced by Signs and Symptoms pt on vent and unable to comsume PO Is patient on ventilator? Yes Is Patient Ambulatory and/or Out of Bed No REE-([facility]-confined to bed) 1733.676 Kcal/Kg value to use for calculation 19 Approximate Energy Requirements Using 1444 kcal/Kg Calculation Used for Recommendations Kcal/kg Additional Notes Pro: greater than 100g ( greater than 2g/kg IBW) Fluid: 1 ml/kcal Nutrition Intervention Change Diet Order: Start TF when medically able Nutrition Support: Vital AF 1.2 at 50 ml/hr Flush 100 ml q4h Kcal 1,440 Protein (gm) 90 Fluid (mL) 973 Goal #1 TF start/tolernace Goal #2 Meet at least 75% of protein and energy needs via TF Anticipated Discharge Needs: Unable to determine at this time Follow-Up By: 07/25/20 Additional Comments FU for TF start/tolerance
[2020-07-25] MEDS: CEFEPIME/NS 2 GM/100 ML 2 GM/100 ML BAG IV SCH ×2 (03:15→19:06)
[2020-07-25] MEDS ORDERED: DEXTROSE 50% IN WATER (25GM) 50 ML SYRINGE IV ONE (06:13)
--- NOTE | 2020-07-25 06:54 | Progress Note ---
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 07/25/2020: Reviewed consultants notes on yesterday. Neuro has requested EEG t o rule out status. Will speak with them in regards to MRI. Patient is stable enough for travel as pressor requirement is minimal and vent requirement is minimal. No objection to travel. Given hypoglycemia, will change fingersticks to q1 hour. Unable to feed secondary to pressor requirement or this could resultant of liver impairment. Overall prognosis appears to be poor. ] Continue supportive vent care. Not weanable secondary to mental state. Will await family meeting Wean Vasopressors for MAPS >65 Once down to one pressor can feed Will obtain formal neurology consult today May need to consider EEG Overall prognosis appears to be very poor. CCT 31 minutes. Subjective Date of service: 07/25/20 Principal diagnosis: Acute Liver Injury Interval history: Patient remains unresponsive on vent. Still on Levophed and vasopressin. Spoke with night nurse and per her, patient had MAPs in the 50's. Levo was up all the way to 10 at one point but now back down to 6. Last MAP 80. Also had some hypoglycemia, down to 55. This may have added to hypotension. Mother and Fiance' (per Neuro) visited yesterday. Based on neuro note, he may have spoken with them. Not sure if primary physician did or not. Objective Vital Signs - 12hr 07/24/20 07/24/20 07/24/20 19:00 19:15 19:30 Temperature Pulse Rate 78 77 77 Pulse Rate [ From Monitor] Respiratory 18 18 18 Rate Blood Pressure 107/63 106/65 106/66 O2 Sat by Pulse 97 97 97 Oximetry 07/24/20 07/24/20 07/24/20 19:45 20:00 20:15 Temperature 97.4 F L Pulse Rate 77 77 77 Pulse Rate [ 77 From Monitor] Respiratory 18 18 18 Rate Blood Pressure 107/69 106/62 108/66 O2 Sat by Pulse 96 97 97 Oximetry 07/24/20 07/24/20 07/24/20 20:31 20:45 21:01 Temperature Pulse Rate 74 76 73 Pulse Rate [ From Monitor] Respiratory 18 18 18 Rate Blood Pressure 102/40 98/56 84/33 O2 Sat by Pulse 96 97 97 Oximetry 07/24/20 07/24/20 07/24/20 21:14 21:15 21:31 Temperature Pulse Rate 83 76 76 Pulse Rate [ From Monitor] Respiratory 18 18 Rate Blood Pressure 87/43 87/43 95/42 O2 Sat by Pulse 97 97 94 Oximetry 07/24/20 07/24/20 07/24/20 21:45 22:00 22:15 Temperature Pulse Rate 75 90 86 Pulse Rate [ From Monitor] Respiratory 18 18 18 Rate Blood Pressure 77/32 177/116 143/89 O2 Sat by Pulse 96 97 Oximetry 07/24/20 07/24/20 07/24/20 22:30 22:45 23:00 Temperature Pulse Rate 85 85 86 Pulse Rate [ From Monitor] Respiratory 18 18 18 Rate Blood Pressure 134/88 132/83 138/90 O2 Sat by Pulse 92 93 93 Oximetry 07/24/20 07/24/20 07/24/20 23:05 23:15 23:30 Temperature Pulse Rate 86 79 83 Pulse Rate [ From Monitor] Respiratory 18 18 18 Rate Blood Pressure 138/90 138/90 117/66 O2 Sat by Pulse 95 95 Oximetry 07/24/20 07/25/20 07/25/20 23:45 00:00 00:15 Temperature 97.8 F Pulse Rate 80 79 78 Pulse Rate [ 79 From Monitor] Respiratory 18 18 18 Rate Blood Pressure 110/56 112/63 110/60 O2 Sat by Pulse 95 95 Oximetry 07/25/20 07/25/20 07/25/20 00:30 00:45 01:00 Temperature Pulse Rate 78 78 77 Pulse Rate [ From Monitor] Respiratory 18 18 18 Rate Blood Pressure 113/68 114/66 115/66 O2 Sat by Pulse 97 96 96 Oximetry 07/25/20 07/25/20 07/25/20 01:15 01:30 01:45 Temperature Pulse Rate 76 77 78 Pulse Rate [ From Monitor] Respiratory 18 18 18 Rate Blood Pressure 115/66 115/67 119/68 O2 Sat by Pulse 96 96 96 Oximetry 07/25/20 07/25/20 07/25/20 02:00 02:15 02:30 Temperature Pulse Rate 77 77 76 Pulse Rate [ From Monitor] Respiratory 18 18 18 Rate Blood Pressure 116/66 118/68 116/70 O2 Sat by Pulse 96 96 97 Oximetry 07/25/20 07/25/20 07/25/20 02:45 03:00 03:15 Temperature Pulse Rate 77 77 77 Pulse Rate [ From Monitor] Respiratory 18 18 18 Rate Blood Pressure 119/71 115/74 120/72 O2 Sat by Pulse 96 96 96 Oximetry 07/25/20 07/25/20 07/25/20 03:30 03:40 03:45 Temperature 97.8 F Pulse Rate 77 77 Pulse Rate [ From Monitor] Respiratory 18 18 Rate Blood Pressure 117/71 118/72 O2 Sat by Pulse 96 96 Oximetry 07/25/20 07/25/20 07/25/20 04:00 04:15 04:30 Temperature Pulse Rate 77 77 77 Pulse Rate [ 75 From Monitor] Respiratory 18 18 18 Rate Blood Pressure 118/68 115/71 120/67 O2 Sat by Pulse 97 97 97 Oximetry 07/25/20 07/25/20 07/25/20 04:45 05:00 05:15 Temperature Pulse Rate 77 77 76 Pulse Rate [ From Monitor] Respiratory 18 18 18 Rate Blood Pressure 116/69 119/71 116/66 O2 Sat by Pulse 97 96 96 Oximetry 07/25/20 07/25/20 07/25/20 05:30 05:45 06:00 Temperature Pulse Rate 76 76 76 Pulse Rate [ From Monitor] Respiratory 18 18 18 Rate Blood Pressure 118/70 119/69 117/70 O2 Sat by Pulse 96 97 96 Oximetry Constitutional: comatose Eyes: icteric ENT: other (orally intubated, no sedation) Neck: supple Effort: normal Ascultation: Bilateral: rales, rhonchi (anteriorly), other (coarse BS bilaterally) Cardiovascular: other (tachy, RR; no mrg) Gastrointestinal: normoactive bowel sounds, soft, non-tender, non-distended Integumentary: normal Extremities: no cyanosis, edema (1+ bilateral LE edema) Neurologic: other (unresponsive) Psychiatric: other (unable to assess) CBC and BMP: 07/23/20 07:39 07/24/20 10:14 ABG, PT/INR, D-dimer: ABG ABG pH 7.458 (7.320-7.450) H 07/25/20 05:20 POC ABG pCO2 32.7 mmHg (32.0-48.0) 07/25/20 05:20 ABG pCO2 31.2 mm Hg 07/22/20 04:25 POC ABG pO2 77.5 mmHg (83-108) L 07/25/20 05:20 ABG pO2 104.9 mm Hg (80.0-90.0) H 07/22/20 04:25 POC ABG HCO3 22.6 07/25/20 05:20 ABG O2 Saturation 98.1 % (95.0-99.0) 07/22/20 04:25 PT/INR, D-dimer PT 22.7 Sec. (12.2-14.9) H 07/24/20 10:14 INR 1.99 (0.87-1.13) H 07/24/20 10:14 Abnormal lab findings: Abnormal Labs 07/16/20 07/16/20 07/16/20 03:54 20:47 20:47 WBC 33.9 H RBC Hgb Hct MCV 107 H MCH 34 H MCHC RDW 22.0 H Plt Count Lymph % (Auto) [place] % (Auto) Lymph # (Auto) [place] # (Auto) Eos # (Auto) Seg Neutrophils % Seg Neuts % (Manual) 89.0 H Lymphocytes % (Manual) 2.0 L Monocytes % (Manual) Nucleated RBC % 1.0 H Seg Neutrophils # Seg Neutrophils # Man 30.2 H Lymphocytes # (Manual) 0.7 L Monocytes # (Manual) 1.4 H Eosinophils # (Manual) PT INR ABG pH POC ABG pCO2 POC ABG pO2 ABG pO2 ABG Base Excess ABG Hemoglobin ABG Oxyhemoglobin ABG Sodium ABG Potassium ABG Chloride ABG Glucose VBG pH Oxyhemoglobin Carboxyhemoglobin Sodium Potassium 5.1 H Chloride Carbon Dioxide 9 L* BUN 20 H Creatinine 1.9 H Glucose 30 L* POC Glucose Lactic Acid Calcium Phosphorus Magnesium Total Bilirubin 5.40 H Direct Bilirubin AST 58236 H ALT 1829 H Alkaline Phosphatase 141 H Ammonia Total Creatine Kinase C-Reactive Protein Total Protein Albumin Lipase 9 L Arterial Blood Glucose Arterial Blood Ionized Calcium Urine WBC (Auto) 57.0 H U Epithel Cells (Auto) 23.0 H Acetaminophen Syphilis IgG Antibody HSV I Specific Ab Crossmatch 07/16/20 07/16/20 07/16/20 20:47 22:43 23:06 WBC RBC Hgb Hct MCV MCH MCHC RDW Plt Count Lymph % (Auto) [place] % (Auto) Lymph # (Auto) [place] # (Auto) Eos # (Auto) Seg Neutrophils % Seg Neuts % (Manual) Lymphocytes % (Manual) Monocytes % (Manual) Nucleated RBC % Seg Neutrophils # Seg Neutrophils # Man Lymphocytes # (Manual) Monocytes # (Manual) Eosinophils # (Manual) PT INR ABG pH POC ABG pCO2 POC ABG pO2 ABG pO2 ABG Base Excess ABG Hemoglobin ABG Oxyhemoglobin ABG Sodium ABG Potassium ABG Chloride ABG Glucose VBG pH Oxyhemoglobin Carboxyhemoglobin Sodium Potassium Chloride Carbon Dioxide BUN Creatinine Glucose POC Glucose 140 H Lactic Acid 14.90 H* Calcium Phosphorus Magnesium Total Bilirubin Direct Bilirubin AST ALT Alkaline Phosphatase Ammonia Total Creatine Kinase 230 H C-Reactive Protein Total Protein Albumin Lipase Arterial Blood Glucose Arterial Blood Ionized Calcium Urine WBC (Auto) U Epithel Cells (Auto) Acetaminophen Syphilis IgG Antibody HSV I Specific Ab Crossmatch 07/17/20 07/17/20 07/17/20 01:46 01:46 04:55 WBC RBC Hgb Hct MCV MCH MCHC RDW Plt Count Lymph % (Auto) [place] % (Auto) Lymph # (Auto) [place] # (Auto) Eos # (Auto) Seg Neutrophils % Seg Neuts % (Manual) Lymphocytes % (Manual) Monocytes % (Manual) Nucleated RBC % Seg Neutrophils # Seg Neutrophils # Man Lymphocytes # (Manual) Monocytes # (Manual) Eosinophils # (Manual) PT INR ABG pH POC ABG pCO2 POC ABG pO2 ABG pO2 ABG Base Excess ABG Hemoglobin ABG Oxyhemoglobin ABG Sodium ABG Potassium ABG Chloride ABG Glucose VBG pH 7.085 L* Oxyhemoglobin Carboxyhemoglobin Sodium Potassium Chloride Carbon Dioxide BUN Creatinine Glucose POC Glucose Lactic Acid 13.20 H* 12.00 H* Calcium Phosphorus Magnesium Total Bilirubin Direct Bilirubin AST ALT Alkaline Phosphatase Ammonia Total Creatine Kinase C-Reactive Protein Total Protein Albumin Lipase Arterial Blood Glucose Arterial Blood Ionized Calcium Urine WBC (Auto) U Epithel Cells (Auto) Acetaminophen Syphilis IgG Antibody HSV I Specific Ab Crossmatch 07/17/20 07/17/20 07/17/20 06:05 07:33 07:48 WBC RBC Hgb Hct MCV MCH MCHC RDW Plt Count Lymph % (Auto) [place] % (Auto) Lymph # (Auto) [place] # (Auto) Eos # (Auto) Seg Neutrophils % Seg Neuts % (Manual) Lymphocytes % (Manual) Monocytes % (Manual) Nucleated RBC % Seg Neutrophils # Seg Neutrophils # Man Lymphocytes # (Manual) Monocytes # (Manual) Eosinophils # (Manual) PT INR ABG pH POC ABG pCO2 POC ABG pO2 ABG pO2 ABG Base Excess ABG Hemoglobin ABG Oxyhemoglobin ABG Sodium ABG Potassium ABG Chloride ABG Glucose VBG pH Oxyhemoglobin Carboxyhemoglobin Sodium Potassium Chloride Carbon Dioxide BUN Creatinine Glucose POC Glucose 59 L 125 H Lactic Acid 12.00 H* Calcium Phosphorus Magnesium Total Bilirubin Direct Bilirubin AST ALT Alkaline Phosphatase Ammonia Total Creatine Kinase C-Reactive Protein Total Protein Albumin Lipase Arterial Blood Glucose Arterial Blood Ionized Calcium Urine WBC (Auto) U Epithel Cells (Auto) Acetaminophen Syphilis IgG Antibody HSV I Specific Ab Crossmatch 07/17/20 07/17/20 07/17/20 09:23 09:23 09:24 WBC RBC Hgb Hct MCV MCH MCHC RDW Plt Count Lymph % (Auto) [place] % (Auto) Lymph # (Auto) [place] # (Auto) Eos # (Auto) Seg Neutrophils % Seg Neuts % (Manual) Lymphocytes % (Manual) Monocytes % (Manual) Nucleated RBC % Seg Neutrophils # Seg Neutrophils # Man Lymphocytes # (Manual) Monocytes # (Manual) Eosinophils # (Manual) PT INR ABG pH POC ABG pCO2 POC ABG pO2 ABG pO2 ABG Base Excess ABG Hemoglobin ABG Oxyhemoglobin ABG Sodium ABG Potassium ABG Chloride ABG Glucose VBG pH Oxyhemoglobin Carboxyhemoglobin Sodium Potassium 5.7 H Chloride 107.6 H Carbon Dioxide 13 L BUN 24 H Creatinine 2.1 H Glucose 121 H POC Glucose Lactic Acid Calcium 6.0 L D Phosphorus Magnesium Total Bilirubin 3.80 H Direct Bilirubin AST 8355 H ALT 1522 H Alkaline Phosphatase Ammonia Total Creatine Kinase 332 H C-Reactive Protein Total Protein 4.7 L D Albumin 2.8 L Lipase Arterial Blood Glucose Arterial Blood Ionized Calcium Urine WBC (Auto) U Epithel Cells (Auto) Acetaminophen 5.0 L Syphilis IgG Antibody HSV I Specific Ab Crossmatch 07/17/20 07/17/20 07/17/20 11:08 11:08 11:08 WBC RBC Hgb Hct MCV MCH MCHC RDW Plt Count Lymph % (Auto) [place] % (Auto) Lymph # (Auto) [place] # (Auto) Eos # (Auto) Seg Neutrophils % Seg Neuts % (Manual) Lymphocytes % (Manual) Monocytes % (Manual) Nucleated RBC % Seg Neutrophils # Seg Neutrophils # Man Lymphocytes # (Manual) Monocytes # (Manual) Eosinophils # (Manual) PT 60.1 H INR > 17.67 H* ABG pH POC ABG pCO2 POC ABG pO2 ABG pO2 ABG Base Excess ABG Hemoglobin ABG Oxyhemoglobin ABG Sodium ABG Potassium ABG Chloride ABG Glucose VBG pH Oxyhemoglobin Carboxyhemoglobin Sodium Potassium Chloride Carbon Dioxide BUN Creatinine Glucose POC Glucose Lactic Acid 9.80 H* Calcium Phosphorus Magnesium Total Bilirubin Direct Bilirubin AST ALT Alkaline Phosphatase Ammonia Total Creatine Kinase C-Reactive Protein Total Protein Albumin Lipase Arterial Blood Glucose Arterial Blood Ionized Calcium Urine WBC (Auto) U Epithel Cells (Auto) Acetaminophen Syphilis IgG Antibody Reactive A HSV I Specific Ab Crossmatch 07/17/20 07/17/20 07/17/20 11:08 14:34 14:34 WBC 27.2 H RBC 2.66 L Hgb 9.1 L D Hct 27.8 L D MCV 104 H MCH 34 H MCHC RDW 22.6 H Plt Count Lymph % (Auto) [place] % (Auto) Lymph # (Auto) [place] # (Auto) Eos # (Auto) Seg Neutrophils % Seg Neuts % (Manual) Lymphocytes % (Manual) Monocytes % (Manual) Nucleated RBC % Seg Neutrophils # Seg Neutrophils # Man Lymphocytes # (Manual) Monocytes # (Manual) Eosinophils # (Manual) PT INR ABG pH POC ABG pCO2 POC ABG pO2 ABG pO2 ABG Base Excess ABG Hemoglobin ABG Oxyhemoglobin ABG Sodium ABG Potassium ABG Chloride ABG Glucose VBG pH Oxyhemoglobin Carboxyhemoglobin Sodium Potassium 5.4 H Chloride 107.7 H Carbon Dioxide 16 L BUN 26 H Creatinine 2.3 H Glucose 151 H POC Glucose Lactic Acid Calcium 5.8 L* Phosphorus Magnesium Total Bilirubin 3.30 H Direct Bilirubin AST 6751 H ALT 1325 H Alkaline Phosphatase Ammonia Total Creatine Kinase C-Reactive Protein Total Protein 4.4 L Albumin 2.5 L Lipase Arterial Blood Glucose Arterial Blood Ionized Calcium Urine WBC (Auto) U Epithel Cells (Auto) Acetaminophen Syphilis IgG Antibody HSV I Specific Ab 5.23 H Crossmatch 07/17/20 07/17/20 07/17/20 14:34 14:34 14:34 WBC RBC Hgb Hct MCV MCH MCHC RDW Plt Count Lymph % (Auto) [place] % (Auto) Lymph # (Auto) [place] # (Auto) Eos # (Auto) Seg Neutrophils % Seg Neuts % (Manual) Lymphocytes % (Manual) Monocytes % (Manual) Nucleated RBC % Seg Neutrophils # Seg Neutrophils # Man Lymphocytes # (Manual) Monocytes # (Manual) Eosinophils # (Manual) PT 70.6 H INR 8.29 H* ABG pH POC ABG pCO2 POC ABG pO2 ABG pO2 ABG Base Excess ABG Hemoglobin ABG Oxyhemoglobin ABG Sodium ABG Potassium ABG Chloride ABG Glucose VBG pH Oxyhemoglobin Carboxyhemoglobin Sodium Potassium Chloride Carbon Dioxide BUN Creatinine Glucose POC Glucose Lactic Acid 7.60 H* Calcium Phosphorus Magnesium Total Bilirubin Direct Bilirubin AST ALT Alkaline Phosphatase Ammonia 75.0 H Total Creatine Kinase C-Reactive Protein Total Protein Albumin Lipase Arterial Blood Glucose Arterial Blood Ionized Calcium Urine WBC (Auto) U Epithel Cells (Auto) Acetaminophen Syphilis IgG Antibody HSV I Specific Ab Crossmatch 07/17/20 07/17/20 07/18/20 16:45 16:45 04:23 WBC 22.7 H RBC 2.47 L Hgb 8.5 L Hct 25.5 L MCV 103 H MCH 35 H MCHC RDW 21.7 H Plt Count Lymph % (Auto) 5.3 L [place] % (Auto) Lymph # (Auto) [place] # (Auto) Eos # (Auto) 0.7 H Seg Neutrophils % 88.2 H Seg Neuts % (Manual) Lymphocytes % (Manual) Monocytes % (Manual) Nucleated RBC % Seg Neutrophils # 20.0 H Seg Neutrophils # Man Lymphocytes # (Manual) Monocytes # (Manual) Eosinophils # (Manual) PT INR ABG pH POC ABG pCO2 POC ABG pO2 ABG pO2 ABG Base Excess ABG Hemoglobin ABG Oxyhemoglobin ABG Sodium ABG Potassium ABG Chloride ABG Glucose VBG pH Oxyhemoglobin Carboxyhemoglobin Sodium Potassium Chloride 107.9 H Carbon Dioxide 17 L BUN 27 H Creatinine 2.5 H Glucose 144 H POC Glucose Lactic Acid 7.00 H* Calcium 6.0 L Phosphorus Magnesium Total Bilirubin 3.30 H Direct Bilirubin AST 6456 H ALT 1286 H Alkaline Phosphatase Ammonia Total Creatine Kinase C-Reactive Protein Total Protein 4.2 L Albumin 2.5 L Lipase Arterial Blood Glucose Arterial Blood Ionized Calcium Urine WBC (Auto) U Epithel Cells (Auto) Acetaminophen Syphilis IgG Antibody HSV I Specific Ab Crossmatch 07/18/20 07/18/20 07/18/20 04:23 04:23 04:23 WBC RBC Hgb Hct MCV MCH MCHC RDW Plt Count Lymph % (Auto) [place] % (Auto) Lymph # (Auto) [place] # (Auto) Eos # (Auto) Seg Neutrophils % Seg Neuts % (Manual) Lymphocytes % (Manual) Monocytes % (Manual) Nucleated RBC % Seg Neutrophils # Seg Neutrophils # Man Lymphocytes # (Manual) Monocytes # (Manual) Eosinophils # (Manual) PT 52.9 H INR 5.78 H* ABG pH POC ABG pCO2 POC ABG pO2 ABG pO2 ABG Base Excess ABG Hemoglobin ABG Oxyhemoglobin ABG Sodium ABG Potassium ABG Chloride ABG Glucose VBG pH Oxyhemoglobin Carboxyhemoglobin Sodium Potassium Chloride 110.0 H Carbon Dioxide 17 L BUN 33 H Creatinine 3.0 H Glucose 110 H POC Glucose Lactic Acid 5.40 H* Calcium 6.4 L Phosphorus Magnesium Total Bilirubin Direct Bilirubin AST ALT Alkaline Phosphatase Ammonia Total Creatine Kinase C-Reactive Protein Total Protein Albumin Lipase Arterial Blood Glucose Arterial Blood Ionized Calcium Urine WBC (Auto) U Epithel Cells (Auto) Acetaminophen Syphilis IgG Antibody HSV I Specific Ab Crossmatch 07/18/20 07/18/20 07/18/20 04:23 07:25 Unknown WBC RBC Hgb Hct MCV MCH MCHC RDW Plt Count Lymph % (Auto) [place] % (Auto) Lymph # (Auto) [place] # (Auto) Eos # (Auto) Seg Neutrophils % Seg Neuts % (Manual) Lymphocytes % (Manual) Monocytes % (Manual) Nucleated RBC % Seg Neutrophils # Seg Neutrophils # Man Lymphocytes # (Manual) Monocytes # (Manual) Eosinophils # (Manual) PT INR ABG pH POC ABG pCO2 POC ABG pO2 ABG pO2 ABG Base Excess ABG Hemoglobin ABG Oxyhemoglobin ABG Sodium ABG Potassium ABG Chloride ABG Glucose VBG pH Oxyhemoglobin Carboxyhemoglobin Sodium Potassium Chloride Carbon Dioxide BUN Creatinine Glucose POC Glucose Lactic Acid 5.50 H* 4.80 H* Calcium Phosphorus Magnesium Total Bilirubin Direct Bilirubin AST ALT Alkaline Phosphatase Ammonia 96.0 H Total Creatine Kinase C-Reactive Protein Total Protein Albumin Lipase Arterial Blood Glucose Arterial Blood Ionized Calcium Urine WBC (Auto) U Epithel Cells (Auto) Acetaminophen Syphilis IgG Antibody HSV I Specific Ab Crossmatch 07/18/20 07/18/20 07/19/20 Unknown Unknown 02:47 WBC RBC Hgb Hct MCV MCH MCHC RDW Plt Count Lymph % (Auto) [place] % (Auto) Lymph # (Auto) [place] # (Auto) Eos # (Auto) Seg Neutrophils % Seg Neuts % (Manual) Lymphocytes % (Manual) Monocytes % (Manual) Nucleated RBC % Seg Neutrophils # Seg Neutrophils # Man Lymphocytes # (Manual) Monocytes # (Manual) Eosinophils # (Manual) PT 37.3 H INR 3.73 H ABG pH POC ABG pCO2 21.1 L POC ABG pO2 61.7 L ABG pO2 ABG Base Excess ABG Hemoglobin 8.5 L ABG Oxyhemoglobin 88.1 L ABG Sodium ABG Potassium ABG Chloride 119.0 H ABG Glucose VBG pH Oxyhemoglobin Carboxyhemoglobin Sodium Potassium Chloride Carbon Dioxide BUN Creatinine Glucose POC Glucose Lactic Acid Calcium Phosphorus Magnesium Total Bilirubin 3.70 H Direct Bilirubin 3.0 H AST 2093 H ALT 822 H Alkaline Phosphatase Ammonia Total Creatine Kinase C-Reactive Protein Total Protein 4.0 L Albumin 2.5 L Lipase Arterial Blood Glucose Arterial Blood Ionized Calcium 4.0 L Urine WBC (Auto) U Epithel Cells (Auto) Acetaminophen Syphilis IgG Antibody HSV I Specific Ab Crossmatch 07/19/20 07/19/20 07/19/20 03:01 03:01 03:01 WBC 19.4 H RBC 2.50 L Hgb 8.5 L Hct 26.1 L MCV 104 H MCH 34 H MCHC RDW 22.3 H Plt Count Lymph % (Auto) 3.7 L [place] % (Auto) Lymph # (Auto) 0.7 L [place] # (Auto) 0.9 H Eos # (Auto) Seg Neutrophils % Seg Neuts % (Manual) Lymphocytes % (Manual) Monocytes % (Manual) Nucleated RBC % Seg Neutrophils # 17.7 H Seg Neutrophils # Man Lymphocytes # (Manual) Monocytes # (Manual) Eosinophils # (Manual) PT 35.0 H INR 3.45 H ABG pH POC ABG pCO2 POC ABG pO2 ABG pO2 ABG Base Excess ABG Hemoglobin ABG Oxyhemoglobin ABG Sodium ABG Potassium ABG Chloride ABG Glucose VBG pH Oxyhemoglobin Carboxyhemoglobin Sodium Potassium Chloride Carbon Dioxide BUN Creatinine Glucose POC Glucose Lactic Acid 5.90 H* Calcium Phosphorus Magnesium Total Bilirubin Direct Bilirubin AST ALT Alkaline Phosphatase Ammonia Total Creatine Kinase C-Reactive Protein Total Protein Albumin Lipase Arterial Blood Glucose Arterial Blood Ionized Calcium Urine WBC (Auto) U Epithel Cells (Auto) Acetaminophen Syphilis IgG Antibody HSV I Specific Ab Crossmatch 07/19/20 07/19/20 07/19/20 03:01 03:01 05:25 WBC RBC Hgb Hct MCV MCH MCHC RDW Plt Count Lymph % (Auto) [place] % (Auto) Lymph # (Auto) [place] # (Auto) Eos # (Auto) Seg Neutrophils % Seg Neuts % (Manual) Lymphocytes % (Manual) Monocytes % (Manual) Nucleated RBC % Seg Neutrophils # Seg Neutrophils # Man Lymphocytes # (Manual) Monocytes # (Manual) Eosinophils # (Manual) PT INR ABG pH POC ABG pCO2 POC ABG pO2 ABG pO2 ABG Base Excess ABG Hemoglobin ABG Oxyhemoglobin ABG Sodium ABG Potassium ABG Chloride ABG Glucose VBG pH Oxyhemoglobin Carboxyhemoglobin Sodium 149 H Potassium Chloride 116.6 H Carbon Dioxide 14 L BUN 48 H Creatinine 2.5 H Glucose POC Glucose 43 L Lactic Acid Calcium 7.4 L D Phosphorus Magnesium Total Bilirubin 3.70 H Direct Bilirubin AST 1730 H ALT 751 H Alkaline Phosphatase Ammonia 126.0 H Total Creatine Kinase C-Reactive Protein Total Protein 4.3 L Albumin 2.4 L Lipase Arterial Blood Glucose Arterial Blood Ionized Calcium Urine WBC (Auto) U Epithel Cells (Auto) Acetaminophen Syphilis IgG Antibody HSV I Specific Ab Crossmatch 07/19/20 07/19/20 07/19/20 05:41 05:41 05:41 WBC 15.9 H RBC 1.80 L Hgb 6.2 L Hct 19.7 L* D MCV 109 H MCH 35 H MCHC RDW 22.7 H Plt Count 99 L Lymph % (Auto) 9.7 L [place] % (Auto) 8.3 H Lymph # (Auto) [place] # (Auto) 1.3 H Eos # (Auto) Seg Neutrophils % 81.2 H Seg Neuts % (Manual) 85.0 H Lymphocytes % (Manual) 12.0 L Monocytes % (Manual) Nucleated RBC % Seg Neutrophils # 12.9 H Seg Neutrophils # Man 13.5 H Lymphocytes # (Manual) Monocytes # (Manual) Eosinophils # (Manual) PT 51.8 H INR 5.63 H* ABG pH POC ABG pCO2 POC ABG pO2 ABG pO2 ABG Base Excess ABG Hemoglobin ABG Oxyhemoglobin ABG Sodium ABG Potassium ABG Chloride ABG Glucose VBG pH Oxyhemoglobin Carboxyhemoglobin Sodium 150 H Potassium Chloride 117.6 H Carbon Dioxide 10 L BUN 50 H Creatinine 2.8 H Glucose 308 H POC Glucose Lactic Acid Calcium 6.8 L Phosphorus Magnesium Total Bilirubin 2.20 H Direct Bilirubin AST 1224 H ALT 484 H Alkaline Phosphatase Ammonia Total Creatine Kinase C-Reactive Protein Total Protein 2.8 L D Albumin 1.6 L Lipase Arterial Blood Glucose Arterial Blood Ionized Calcium Urine WBC (Auto) U Epithel Cells (Auto) Acetaminophen Syphilis IgG Antibody HSV I Specific Ab Crossmatch 07/19/20 07/19/20 07/19/20 05:41 05:41 05:53 WBC RBC Hgb Hct MCV MCH MCHC RDW Plt Count Lymph % (Auto) [place] % (Auto) Lymph # (Auto) [place] # (Auto) Eos # (Auto) Seg Neutrophils % Seg Neuts % (Manual) Lymphocytes % (Manual) Monocytes % (Manual) Nucleated RBC % Seg Neutrophils # Seg Neutrophils # Man Lymphocytes # (Manual) Monocytes # (Manual) Eosinophils # (Manual) PT INR ABG pH POC ABG pCO2 POC ABG pO2 ABG pO2 ABG Base Excess ABG Hemoglobin ABG Oxyhemoglobin ABG Sodium ABG Potassium ABG Chloride ABG Glucose VBG pH Oxyhemoglobin Carboxyhemoglobin Sodium Potassium Chloride Carbon Dioxide BUN Creatinine Glucose POC Glucose 186 H Lactic Acid 12.00 H* Calcium Phosphorus Magnesium Total Bilirubin Direct Bilirubin AST ALT Alkaline Phosphatase Ammonia 96.0 H Total Creatine Kinase C-Reactive Protein Total Protein Albumin Lipase Arterial Blood Glucose Arterial Blood Ionized Calcium Urine WBC (Auto) U Epithel Cells (Auto) Acetaminophen Syphilis IgG Antibody HSV I Specific Ab Crossmatch 07/19/20 07/19/20 07/19/20 06:14 07:35 07:35 WBC RBC Hgb Hct MCV MCH MCHC RDW Plt Count Lymph % (Auto) [place] % (Auto) Lymph # (Auto) [place] # (Auto) Eos # (Auto) Seg Neutrophils % Seg Neuts % (Manual) Lymphocytes % (Manual) Monocytes % (Manual) Nucleated RBC % Seg Neutrophils # Seg Neutrophils # Man Lymphocytes # (Manual) Monocytes # (Manual) Eosinophils # (Manual) PT INR ABG pH 6.904 L POC ABG pCO2 50.8 H POC ABG pO2 140.1 H ABG pO2 ABG Base Excess ABG Hemoglobin 7.9 L ABG Oxyhemoglobin ABG Sodium ABG Potassium ABG Chloride 120.0 H ABG Glucose 220 H VBG pH Oxyhemoglobin Carboxyhemoglobin 1.7 H Sodium Potassium Chloride Carbon Dioxide BUN Creatinine Glucose POC Glucose Lactic Acid 8.50 H* Calcium Phosphorus Magnesium Total Bilirubin Direct Bilirubin AST ALT Alkaline Phosphatase Ammonia Total Creatine Kinase C-Reactive Protein Total Protein Albumin Lipase Arterial Blood Glucose 220 H Arterial Blood Ionized Calcium 4.1 L Urine WBC (Auto) U Epithel Cells (Auto) Acetaminophen Syphilis IgG Antibody HSV I Specific Ab Crossmatch See Detail 07/19/20 07/19/20 07/19/20 12:45 22:54 Unknown WBC 26.7 H RBC 2.68 L Hgb 9.0 L Hct 26.8 L D MCV 100 H MCH 34 H MCHC RDW 20.2 H Plt Count 104 L Lymph % (Auto) [place] % (Auto) Lymph # (Auto) [place] # (Auto) Eos # (Auto) Seg Neutrophils % Seg Neuts % (Manual) Lymphocytes % (Manual) 6.0 L Monocytes % (Manual) 8.0 H Nucleated RBC % Seg Neutrophils # Seg Neutrophils # Man 17.6 H Lymphocytes # (Manual) Monocytes # (Manual) 2.1 H Eosinophils # (Manual) PT INR ABG pH POC ABG pCO2 POC ABG pO2 ABG pO2 ABG Base Excess ABG Hemoglobin ABG Oxyhemoglobin ABG Sodium ABG Potassium ABG Chloride ABG Glucose VBG pH Oxyhemoglobin Carboxyhemoglobin Sodium Potassium Chloride Carbon Dioxide BUN Creatinine Glucose POC Glucose 121 H Lactic Acid 6.20 H* Calcium Phosphorus Magnesium Total Bilirubin Direct Bilirubin AST ALT Alkaline Phosphatase Ammonia Total Creatine Kinase C-Reactive Protein Total Protein Albumin Lipase Arterial Blood Glucose Arterial Blood Ionized Calcium Urine WBC (Auto) U Epithel Cells (Auto) Acetaminophen Syphilis IgG Antibody HSV I Specific Ab Crossmatch 07/19/20 07/19/20 07/19/20 Unknown Unknown Unknown WBC RBC Hgb Hct MCV MCH MCHC RDW Plt Count Lymph % (Auto) [place] % (Auto) Lymph # (Auto) [place] # (Auto) Eos # (Auto) Seg Neutrophils % Seg Neuts % (Manual) Lymphocytes % (Manual) Monocytes % (Manual) Nucleated RBC % Seg Neutrophils # Seg Neutrophils # Man Lymphocytes # (Manual) Monocytes # (Manual) Eosinophils # (Manual) PT 33.4 H INR 3.25 H ABG pH POC ABG pCO2 POC ABG pO2 ABG pO2 ABG Base Excess ABG Hemoglobin ABG Oxyhemoglobin ABG Sodium ABG Potassium ABG Chloride ABG Glucose VBG pH Oxyhemoglobin Carboxyhemoglobin Sodium 148 H Potassium 2.6 L* D Chloride 117.3 H Carbon Dioxide 18 L D BUN 48 H Creatinine 2.4 H Glucose 207 H POC Glucose Lactic Acid 3.90 H* Calcium 6.5 L Phosphorus Magnesium Total Bilirubin 3.80 H Direct Bilirubin AST 1228 H ALT 516 H Alkaline Phosphatase Ammonia Total Creatine Kinase C-Reactive Protein Total Protein 3.6 L D Albumin 1.9 L Lipase Arterial Blood Glucose Arterial Blood Ionized Calcium Urine WBC (Auto) U Epithel Cells (Auto) Acetaminophen Syphilis IgG Antibody HSV I Specific Ab Crossmatch 07/20/20 07/20/20 07/20/20 02:41 05:04 06:39 WBC RBC Hgb Hct MCV MCH MCHC RDW Plt Count Lymph % (Auto) [place] % (Auto) Lymph # (Auto) [place] # (Auto) Eos # (Auto) Seg Neutrophils % Seg Neuts % (Manual) Lymphocytes % (Manual) Monocytes % (Manual) Nucleated RBC % Seg Neutrophils # Seg Neutrophils # Man Lymphocytes # (Manual) Monocytes # (Manual) Eosinophils # (Manual) PT INR ABG pH POC ABG pCO2 POC ABG pO2 64.7 L ABG pO2 ABG Base Excess ABG Hemoglobin 8.8 L ABG Oxyhemoglobin 91.0 L ABG Sodium ABG Potassium 2.6 L ABG Chloride 116.0 H ABG Glucose 143 H VBG pH Oxyhemoglobin Carboxyhemoglobin 2.0 H Sodium Potassium Chloride Carbon Dioxide BUN Creatinine Glucose POC Glucose 141 H 123 H Lactic Acid Calcium Phosphorus Magnesium Total Bilirubin Direct Bilirubin AST ALT Alkaline Phosphatase Ammonia Total Creatine Kinase C-Reactive Protein Total Protein Albumin Lipase Arterial Blood Glucose 143 H Arterial Blood Ionized Calcium 3.9 L Urine WBC (Auto) U Epithel Cells (Auto) Acetaminophen Syphilis IgG Antibody HSV I Specific Ab Crossmatch 07/20/20 07/20/20 07/20/20 10:42 11:07 11:07 WBC 27.7 H RBC 2.50 L Hgb 8.4 L Hct 24.4 L MCV 98 H MCH 34 H MCHC 35 H RDW 19.8 H Plt Count 78 L Lymph % (Auto) [place] % (Auto) Lymph # (Auto) [place] # (Auto) Eos # (Auto) Seg Neutrophils % Seg Neuts % (Manual) Lymphocytes % (Manual) Monocytes % (Manual) Nucleated RBC % Seg Neutrophils # Seg Neutrophils # Man Lymphocytes # (Manual) Monocytes # (Manual) Eosinophils # (Manual) PT INR ABG pH POC ABG pCO2 POC ABG pO2 113.1 H ABG pO2 ABG Base Excess ABG Hemoglobin 8.8 L ABG Oxyhemoglobin ABG Sodium ABG Potassium 2.9 L ABG Chloride 114.0 H ABG Glucose 135 H VBG pH Oxyhemoglobin Carboxyhemoglobin 1.9 H Sodium 147 H Potassium Chloride 114.2 H Carbon Dioxide BUN 52 H Creatinine 1.8 H Glucose 143 H POC Glucose Lactic Acid Calcium 6.5 L Phosphorus Magnesium Total Bilirubin Direct Bilirubin AST ALT Alkaline Phosphatase Ammonia Total Creatine Kinase C-Reactive Protein Total Protein Albumin Lipase Arterial Blood Glucose 135 H Arterial Blood Ionized Calcium 3.8 L Urine WBC (Auto) U Epithel Cells (Auto) Acetaminophen Syphilis IgG Antibody HSV I Specific Ab Crossmatch 07/20/20 07/21/20 07/21/20 15:05 00:03 02:07 WBC RBC Hgb Hct MCV MCH MCHC RDW Plt Count Lymph % (Auto) [place] % (Auto) Lymph # (Auto) [place] # (Auto) Eos # (Auto) Seg Neutrophils % Seg Neuts % (Manual) Lymphocytes % (Manual) Monocytes % (Manual) Nucleated RBC % Seg Neutrophils # Seg Neutrophils # Man Lymphocytes # (Manual) Monocytes # (Manual) Eosinophils # (Manual) PT INR ABG pH POC ABG pCO2 POC ABG pO2 ABG pO2 ABG Base Excess ABG Hemoglobin ABG Oxyhemoglobin ABG Sodium ABG Potassium ABG Chloride ABG Glucose VBG pH Oxyhemoglobin Carboxyhemoglobin Sodium 146 H Potassium 2.8 L* 3.1 L Chloride 112.1 H Carbon Dioxide BUN 54 H Creatinine 1.9 H Glucose 107 H POC Glucose 145 H Lactic Acid Calcium 6.8 L Phosphorus Magnesium 0.90 L* Total Bilirubin Direct Bilirubin AST ALT Alkaline Phosphatase Ammonia Total Creatine Kinase C-Reactive Protein Total Protein Albumin Lipase Arterial Blood Glucose Arterial Blood Ionized Calcium Urine WBC (Auto) U Epithel Cells (Auto) Acetaminophen Syphilis IgG Antibody HSV I Specific Ab Crossmatch 07/21/20 07/21/20 07/21/20 03:42 05:21 10:59 WBC RBC Hgb Hct MCV MCH MCHC RDW Plt Count Lymph % (Auto) [place] % (Auto) Lymph # (Auto) [place] # (Auto) Eos # (Auto) Seg Neutrophils % Seg Neuts % (Manual) Lymphocytes % (Manual) Monocytes % (Manual) Nucleated RBC % Seg Neutrophils # Seg Neutrophils # Man Lymphocytes # (Manual) Monocytes # (Manual) Eosinophils # (Manual) PT INR ABG pH POC ABG pCO2 POC ABG pO2 ABG pO2 98.2 H ABG Base Excess -3.8 L ABG Hemoglobin 8.7 L ABG Oxyhemoglobin ABG Sodium ABG Potassium ABG Chloride ABG Glucose VBG pH Oxyhemoglobin 94.6 L Carboxyhemoglobin Sodium Potassium Chloride Carbon Dioxide BUN Creatinine Glucose POC Glucose 150 H 161 H Lactic Acid Calcium Phosphorus Magnesium Total Bilirubin Direct Bilirubin AST ALT Alkaline Phosphatase Ammonia Total Creatine Kinase C-Reactive Protein Total Protein Albumin Lipase Arterial Blood Glucose Arterial Blood Ionized Calcium Urine WBC (Auto) U Epithel Cells (Auto) Acetaminophen Syphilis IgG Antibody HSV I Specific Ab Crossmatch 07/21/20 07/21/20 07/21/20 13:59 16:14 17:22 WBC RBC Hgb Hct MCV MCH MCHC RDW Plt Count Lymph % (Auto) [place] % (Auto) Lymph # (Auto) [place] # (Auto) Eos # (Auto) Seg Neutrophils % Seg Neuts % (Manual) Lymphocytes % (Manual) Monocytes % (Manual) Nucleated RBC % Seg Neutrophils # Seg Neutrophils # Man Lymphocytes # (Manual) Monocytes # (Manual) Eosinophils # (Manual) PT INR ABG pH POC ABG pCO2 POC ABG pO2 ABG pO2 ABG Base Excess ABG Hemoglobin ABG Oxyhemoglobin ABG Sodium ABG Potassium ABG Chloride ABG Glucose VBG pH Oxyhemoglobin Carboxyhemoglobin Sodium Potassium 3.0 L Chloride 112.5 H Carbon Dioxide 16 L D BUN 48 H Creatinine Glucose 157 H POC Glucose 164 H 171 H Lactic Acid Calcium 7.3 L Phosphorus Magnesium Total Bilirubin Direct Bilirubin AST ALT Alkaline Phosphatase Ammonia Total Creatine Kinase C-Reactive Protein Total Protein Albumin Lipase Arterial Blood Glucose Arterial Blood Ionized Calcium Urine WBC (Auto) U Epithel Cells (Auto) Acetaminophen Syphilis IgG Antibody HSV I Specific Ab Crossmatch 07/21/20 07/22/20 07/22/20 20:06 04:25 07:57 WBC 28.9 H RBC 2.35 L Hgb 8.0 L Hct 22.2 L MCV MCH 34 H MCHC 36 H RDW 20.5 H Plt Count 41 L Lymph % (Auto) [place] % (Auto) Lymph # (Auto) [place] # (Auto) Eos # (Auto) Seg Neutrophils % Seg Neuts % (Manual) 83.0 H Lymphocytes % (Manual) 6.0 L Monocytes % (Manual) Nucleated RBC % 2.0 H Seg Neutrophils # Seg Neutrophils # Man 24.0 H Lymphocytes # (Manual) Monocytes # (Manual) 1.4 H Eosinophils # (Manual) 0.6 H PT INR ABG pH 7.500 H POC ABG pCO2 POC ABG pO2 ABG pO2 104.9 H ABG Base Excess ABG Hemoglobin 8.6 L ABG Oxyhemoglobin ABG Sodium ABG Potassium ABG Chloride ABG Glucose VBG pH Oxyhemoglobin Carboxyhemoglobin Sodium Potassium Chloride Carbon Dioxide BUN Creatinine Glucose POC Glucose 128 H Lactic Acid Calcium Phosphorus Magnesium Total Bilirubin Direct Bilirubin AST ALT Alkaline Phosphatase Ammonia Total Creatine Kinase C-Reactive Protein Total Protein Albumin Lipase Arterial Blood Glucose Arterial Blood Ionized Calcium Urine WBC (Auto) U Epithel Cells (Auto) Acetaminophen Syphilis IgG Antibody HSV I Specific Ab Crossmatch 07/22/20 07/22/20 07/22/20 07:57 07:57 12:08 WBC RBC Hgb Hct MCV MCH MCHC RDW Plt Count Lymph % (Auto) [place] % (Auto) Lymph # (Auto) [place] # (Auto) Eos # (Auto) Seg Neutrophils % Seg Neuts % (Manual) Lymphocytes % (Manual) Monocytes % (Manual) Nucleated RBC % Seg Neutrophils # Seg Neutrophils # Man Lymphocytes # (Manual) Monocytes # (Manual) Eosinophils # (Manual) PT 21.6 H INR 1.87 H ABG pH POC ABG pCO2 POC ABG pO2 ABG pO2 ABG Base Excess ABG Hemoglobin ABG Oxyhemoglobin ABG Sodium ABG Potassium ABG Chloride ABG Glucose VBG pH Oxyhemoglobin Carboxyhemoglobin Sodium 147 H D Potassium 2.6 L* Chloride 112.7 H Carbon Dioxide BUN 51 H Creatinine Glucose 104 H POC Glucose Lactic Acid Calcium 7.8 L Phosphorus 1.10 L Magnesium 1.50 L Total Bilirubin 9.80 H 11.10 H Direct Bilirubin 8.8 H AST 234 H 231 H ALT 297 H 286 H Alkaline Phosphatase 296 H 323 H Ammonia Total Creatine Kinase C-Reactive Protein Total Protein 4.1 L 3.6 L Albumin 1.8 L 2.0 L Lipase Arterial Blood Glucose Arterial Blood Ionized Calcium Urine WBC (Auto) U Epithel Cells (Auto) Acetaminophen Syphilis IgG Antibody HSV I Specific Ab Crossmatch 07/23/20 07/23/20 07/23/20 01:53 02:51 07:38 WBC RBC Hgb Hct MCV MCH MCHC RDW Plt Count Lymph % (Auto) [place] % (Auto) Lymph # (Auto) [place] # (Auto) Eos # (Auto) Seg Neutrophils % Seg Neuts % (Manual) Lymphocytes % (Manual) Monocytes % (Manual) Nucleated RBC % Seg Neutrophils # Seg Neutrophils # Man Lymphocytes # (Manual) Monocytes # (Manual) Eosinophils # (Manual) PT INR ABG pH 7.313 L POC ABG pCO2 POC ABG pO2 67.0 L ABG pO2 ABG Base Excess ABG Hemoglobin ABG Oxyhemoglobin ABG Sodium ABG Potassium 3.2 L ABG Chloride 115.0 H ABG Glucose VBG pH Oxyhemoglobin Carboxyhemoglobin Sodium Potassium Chloride Carbon Dioxide BUN Creatinine Glucose POC Glucose 64 L 62 L Lactic Acid Calcium Phosphorus Magnesium Total Bilirubin Direct Bilirubin AST ALT Alkaline Phosphatase Ammonia Total Creatine Kinase C-Reactive Protein Total Protein Albumin Lipase Arterial Blood Glucose Arterial Blood Ionized Calcium 4.3 L Urine WBC (Auto) U Epithel Cells (Auto) Acetaminophen Syphilis IgG Antibody HSV I Specific Ab Crossmatch 07/23/20 07/23/20 07/23/20 07:39 07:39 23:52 WBC 37.0 H RBC 2.30 L Hgb 7.8 L Hct 22.5 L MCV 98 H MCH 34 H MCHC 35 H RDW 21.3 H Plt Count 55 L Lymph % (Auto) [place] % (Auto) Lymph # (Auto) [place] # (Auto) Eos # (Auto) Seg Neutrophils % Seg Neuts % (Manual) 78.0 H Lymphocytes % (Manual) 10.0 L Monocytes % (Manual) Nucleated RBC % 3.0 H Seg Neutrophils # Seg Neutrophils # Man 28.9 H Lymphocytes # (Manual) Monocytes # (Manual) 1.1 H Eosinophils # (Manual) 0.7 H PT INR ABG pH POC ABG pCO2 POC ABG pO2 ABG pO2 ABG Base Excess ABG Hemoglobin ABG Oxyhemoglobin ABG Sodium ABG Potassium ABG Chloride ABG Glucose VBG pH Oxyhemoglobin Carboxyhemoglobin Sodium 148 H Potassium Chloride 114.0 H Carbon Dioxide BUN 59 H Creatinine 1.5 H Glucose POC Glucose Lactic Acid Calcium 7.7 L Phosphorus 4.60 H D Magnesium Total Bilirubin 11.20 H Direct Bilirubin AST 245 H ALT 242 H Alkaline Phosphatase 423 H Ammonia Total Creatine Kinase C-Reactive Protein 17.20 H Total Protein 4.3 L Albumin 1.8 L Lipase Arterial Blood Glucose Arterial Blood Ionized Calcium Urine WBC (Auto) U Epithel Cells (Auto) Acetaminophen Syphilis IgG Antibody HSV I Specific Ab Crossmatch 07/23/20 07/24/20 07/24/20 Unknown 03:39 10:14 WBC RBC Hgb Hct MCV MCH MCHC RDW Plt Count Lymph % (Auto) [place] % (Auto) Lymph # (Auto) [place] # (Auto) Eos # (Auto) Seg Neutrophils % Seg Neuts % (Manual) Lymphocytes % (Manual) Monocytes % (Manual) Nucleated RBC % Seg Neutrophils # Seg Neutrophils # Man Lymphocytes # (Manual) Monocytes # (Manual) Eosinophils # (Manual) PT INR ABG pH POC ABG pCO2 POC ABG pO2 147.8 H ABG pO2 ABG Base Excess ABG Hemoglobin 5.5 L ABG Oxyhemoglobin ABG Sodium ABG Potassium 3.0 L ABG Chloride 117.0 H ABG Glucose VBG pH Oxyhemoglobin Carboxyhemoglobin Sodium 150 H Potassium 2.6 L* D Chloride 117.1 H Carbon Dioxide BUN 48 H Creatinine Glucose POC Glucose Lactic Acid Calcium 8.2 L Phosphorus Magnesium Total Bilirubin Direct Bilirubin AST ALT Alkaline Phosphatase Ammonia Total Creatine Kinase C-Reactive Protein Total Protein Albumin Lipase Arterial Blood Glucose Arterial Blood Ionized Calcium Urine WBC (Auto) 102.0 H U Epithel Cells (Auto) Acetaminophen Syphilis IgG Antibody HSV I Specific Ab Crossmatch 07/24/20 07/24/20 07/24/20 10:14 10:14 10:14 WBC RBC Hgb Hct MCV MCH MCHC RDW Plt Count Lymph % (Auto) [place] % (Auto) Lymph # (Auto) [place] # (Auto) Eos # (Auto) Seg Neutrophils % Seg Neuts % (Manual) Lymphocytes % (Manual) Monocytes % (Manual) Nucleated RBC % Seg Neutrophils # Seg Neutrophils # Man Lymphocytes # (Manual) Monocytes # (Manual) Eosinophils # (Manual) PT 22.7 H INR 1.99 H ABG pH POC ABG pCO2 POC ABG pO2 ABG pO2 ABG Base Excess ABG Hemoglobin ABG Oxyhemoglobin ABG Sodium ABG Potassium ABG Chloride ABG Glucose VBG pH Oxyhemoglobin Carboxyhemoglobin Sodium Potassium Chloride Carbon Dioxide BUN Creatinine Glucose POC Glucose Lactic Acid Calcium Phosphorus 2.30 L D Magnesium 1.50 L Total Bilirubin 10.30 H Direct Bilirubin 7.8 H AST 144 H ALT 129 H Alkaline Phosphatase 308 H Ammonia Total Creatine Kinase C-Reactive Protein Total Protein 4.2 L Albumin 2.4 L Lipase Arterial Blood Glucose Arterial Blood Ionized Calcium Urine WBC (Auto) U Epithel Cells (Auto) Acetaminophen Syphilis IgG Antibody HSV I Specific Ab Crossmatch 07/24/20 07/25/20 07/25/20 21:31 05:19 05:20 WBC RBC Hgb Hct MCV MCH MCHC RDW Plt Count Lymph % (Auto) [place] % (Auto) Lymph # (Auto) [place] # (Auto) Eos # (Auto) Seg Neutrophils % Seg Neuts % (Manual) Lymphocytes % (Manual) Monocytes % (Manual) Nucleated RBC % Seg Neutrophils # Seg Neutrophils # Man Lymphocytes # (Manual) Monocytes # (Manual) Eosinophils # (Manual) PT INR ABG pH 7.458 H POC ABG pCO2 POC ABG pO2 77.5 L ABG pO2 ABG Base Excess ABG Hemoglobin 8.5 L ABG Oxyhemoglobin 93.9 L ABG Sodium 147.8 H ABG Potassium 2.9 L ABG Chloride 118.0 H ABG Glucose VBG pH Oxyhemoglobin Carboxyhemoglobin 2.1 H Sodium Potassium Chloride Carbon Dioxide BUN Creatinine Glucose POC Glucose 59 L 55 L Lactic Acid Calcium Phosphorus Magnesium Total Bilirubin Direct Bilirubin AST ALT Alkaline Phosphatase Ammonia Total Creatine Kinase C-Reactive Protein Total Protein Albumin Lipase Arterial Blood Glucose Arterial Blood Ionized Calcium Urine WBC (Auto) U Epithel Cells (Auto) Acetaminophen Syphilis IgG Antibody HSV I Specific Ab Crossmatch
[2020-07-25] MEDS: VASOPRESSIN 20 UNIT in SODIUM CHLORIDE 0.9% 100 ML IV SCH ×2 (08:41→20:35)
[2020-07-25] MEDS: DEXTROSE 10% IN WATER 1,000 ML IV SCH (09:54)
[2020-07-25 11:02] LABS: Alanine Aminotransferase 115 units/L (7-56); Albumin 2.2 g/dL (3.9-5); BUN/Creatinine Ratio 59; Blood Urea Nitrogen 47 mg/dL (7-17); Calcium 8.8 mg/dL (8.4-10.2); Hemolysis Index 1
[2020-07-25 11:14] LABS: INR 1.94 (0.87-1.13)
--- NOTE | 2020-07-25 11:22 | Progress Note ---
Assessment and Plan Cultures: 07/16/2020 blood culture: no growth 07/17/2020 cervix wet prep: High number of clue cells, no trichomonas or yeast seen. 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 #Severe sepsis septic shock/MODS: remains on pressors. Unclear etiology ?UTI/PID ?colitis ?pneumonia. #Bilateral pneumonia versus pulmonary edema: Bilateral pleural effusions, diffuse bilateral patchy groundglass opacities #Acute hepatic failure: ?Toxin/med related v/s autoimmune, less likely infectious. Also ruling out HSV induced hepatic necrosis and related fulminant hepatic falure. GI following. LFTs and synthetic liver function seem to be gradually improving. #Acute kidney injury: nephrology following. #Possible UTI/PID: has been on empiric abx. #Diffuse colitis noted on CT scan: Already on antibiotics. On multiple pressors. More likely to be ischemia related. No active diarrhea. #Acute encephalopathy, diffuse cerebral edema: Probably a combination of acute liver failure and hypoxic encephalopathy. #Acute thrombocytopenia: Worsening #Anemia: #Syphilis IgG positive, RPR titer non reactive, FTA-ABS is also nonreactive, so very likely it is a false positive Recs: -Continue IV cefepime and vancomycin, plan to stop in the next 1-2 days depending on fever and pressor requirements -Continue renally dosed acyclovir -f/u HSV DNA PCR on serum, still pending -overall poor prognosis, high mortality Kinjal Abebe MD, FACP [facility] ([facility] O: [phone] F: [phone] Subjective Date of service: 07/25/20 Principal diagnosis: Acute Liver Injury Interval history: No fever. Remains critically ill. Remains on the vent. Remains on 2 pressors. Objective - Exam Narrative Exam: Physical Exam: Constitutional: unresponsive intubated, on the vent Head, Ears, Nose: Normocephalic, atraumatic. External ears, nose normal Eyes: Conjunctivae/corneas clear. No icterus. No ptosis. Neck: intubated Oral: intubated Cardiovascular: S1, S2 + Respiratory: AE fair bilaterally and equal GI: Soft, bowel sounds hypo Musculoskeletal: edema +, no cyanosis. Skin: No rash or abscess Hem/Lymphatic: No palpable cervical or supraclavicular nodes. No lymphangitis Psych: no agitation Neurological: unresponsive, intubated, on the vent, exam limited - Constitutional Vitals: Vital Signs Temp Pulse Resp BP Pulse Ox 97 F L 70 18 98/47 96 07/25/20 08:00 07/25/20 10:00 07/25/20 10:00 07/25/20 10:00 07/25/20 10:00 Temperature -Last 24 Hours Temperature 97 F Temperature 97.8 F Temperature 97.8 F Temperature 97.4 F Temperature 97.3 F Temperature 97.3 F - Labs CBC & Chem 7: 07/23/20 07:39 07/25/20 09:53 Labs: Abnormal lab results 07/24/20 07/24/20 07/25/20 Range/Units 10:14 21:31 05:19 PT (12.2-14.9) Sec. INR (0.87-1.13) ABG pH (7.320-7.450) POC ABG pO2 (83-108) mmHg ABG Hemoglobin (12.0-17.5) ABG Oxyhemoglobin (94-98) ABG Sodium (136.0-145.0) mmol/L ABG Potassium (3.40-4.50) mmol/L ABG Chloride (98-107) mmol/L Carboxyhemoglobin (0.5-1.5) Sodium (137-145) mmol/L Potassium (3.6-5.0) mmol/L Chloride (98-107) mmol/L BUN (7-17) mg/dL POC Glucose 59 L 55 L (70-105) mg/dL Phosphorus 2.30 L D (2.5-4.5) mg/dL Magnesium 1.50 L (1.7-2.3) mg/dL Total Bilirubin (0.1-1.2) mg/dL AST (5-40) units/L ALT (7-56) units/L Alkaline Phosphatase (35-129) units/L Total Protein (6.3-8.2) g/dL Albumin (3.9-5) g/dL 07/25/20 07/25/20 07/25/20 Range/Units 05:20 08:38 09:53 PT 22.3 H (12.2-14.9) Sec. INR 1.94 H (0.87-1.13) ABG pH 7.458 H (7.320-7.450) POC ABG pO2 77.5 L (83-108) mmHg ABG Hemoglobin 8.5 L (12.0-17.5) ABG Oxyhemoglobin 93.9 L (94-98) ABG Sodium 147.8 H (136.0-145.0) mmol/L ABG Potassium 2.9 L (3.40-4.50) mmol/L ABG Chloride 118.0 H (98-107) mmol/L Carboxyhemoglobin 2.1 H (0.5-1.5) Sodium (137-145) mmol/L Potassium (3.6-5.0) mmol/L Chloride (98-107) mmol/L BUN (7-17) mg/dL POC Glucose 107 H (70-105) mg/dL Phosphorus (2.5-4.5) mg/dL Magnesium (1.7-2.3) mg/dL Total Bilirubin (0.1-1.2) mg/dL AST (5-40) units/L ALT (7-56) units/L Alkaline Phosphatase (35-129) units/L Total Protein (6.3-8.2) g/dL Albumin (3.9-5) g/dL 07/25/20 Range/Units 09:53 PT (12.2-14.9) Sec. INR (0.87-1.13) ABG pH (7.320-7.450) POC ABG pO2 (83-108) mmHg ABG Hemoglobin (12.0-17.5) ABG Oxyhemoglobin (94-98) ABG Sodium (136.0-145.0) mmol/L ABG Potassium (3.40-4.50) mmol/L ABG Chloride (98-107) mmol/L Carboxyhemoglobin (0.5-1.5) Sodium 154 H (137-145) mmol/L Potassium 2.8 L* (3.6-5.0) mmol/L Chloride 121.5 H (98-107) mmol/L BUN 47 H (7-17) mg/dL POC Glucose (70-105) mg/dL Phosphorus (2.5-4.5) mg/dL Magnesium (1.7-2.3) mg/dL Total Bilirubin 11.60 H (0.1-1.2) mg/dL AST 141 H (5-40) units/L ALT 115 H (7-56) units/L Alkaline Phosphatase 355 H (35-129) units/L Total Protein 4.3 L (6.3-8.2) g/dL Albumin 2.2 L (3.9-5) g/dL - Imaging and cardiology Chest x-ray: report reviewed, image reviewed (b/l patchy airspace opacities)
[2020-07-25] MEDS: POTASSIUM CHLORIDE 20 MEQ 20 MEQ/100 ML BAG IV SCH ×4 (12:03→15:58)
[2020-07-25] MEDS ORDERED: MAGNESIUM SULFATE 4 GM/100 ML BAG IV ONE (13:00)
--- NOTE | 2020-07-25 13:36 | Gastroenterology Progress Note ---
Assessment and Plan # Acute liver failure - etiology possible ETOH vs tylenol or both. completed NAC therapy. Liver enzymes are stable. INR stable. Expect Tbili that will slow to return to normal. - s/p cardiac arrest on 07/19/[address] head on 07/19/2020 showing cerebral edema. Unclear if there is recovering from neurological standpoint. Neurology consulted on 07/24/2020. - case discussed with [facility] on 07/22/2020 and 07/23/2020. No benefit from transfer for liver standpoint as recommendations are for supportive care and liver function appears to be recovering slowly. INR stable and LFTs stable. - neurology consult and recommended for EEG. Rec - avoid hepatotoxins. - management for sepsis/shock per primary/ICU team. ID on board. - monitor LFTs and INR daily. - will follow. - poor prognosis overall. on-going discussion with family by primary team. Spoke with significant other, Rashaun Bradshaw on the phone and updated. Patient's mother was not available on the phone. Subjective Date of service: 07/25/20 Principal diagnosis: Acute Liver Injury Interval history: Patient remains unresponsive and on two pressors. Levophed weaning down. Objective - Constitutional Vitals: Temp Pulse Resp BP Pulse Ox 97 F L 70 18 98/47 96 07/25/20 08:00 07/25/20 10:00 07/25/20 10:00 07/25/20 10:00 07/25/20 10:00 General appearance: other (intubated, unresponsive) - Respiratory Respiratory effort: normal, other (intubated) - Cardiovascular Rhythm: regular Heart Sounds: Present: S1 & S2 - Gastrointestinal General gastrointestinal: Present: soft, non-tender, non-distended - Labs CBC & Chem 7: 07/23/20 07:39 07/25/20 09:53 Labs: Laboratory Results - last 24 hr 07/24/20 07/24/20 07/25/20 18:42 21:31 05:19 PT INR ABG pH POC ABG pCO2 POC ABG pO2 POC ABG HCO3 POC ABG Base Excess ABG Hemoglobin ABG Oxyhemoglobin ABG Methemoglobin ABG Sodium ABG Potassium ABG Chloride ABG Glucose Carboxyhemoglobin FiO2 Sodium Potassium Chloride Carbon Dioxide Anion Gap BUN Creatinine Estimated GFR BUN/Creatinine Ratio Glucose POC Glucose 71 59 L 55 L Calcium Magnesium Total Bilirubin AST ALT Alkaline Phosphatase Total Protein Albumin Albumin/Globulin Ratio Arterial Blood Glucose Arterial Blood Ionized Calcium 07/25/20 07/25/20 07/25/20 05:20 08:38 09:51 PT INR ABG pH 7.458 H POC ABG pCO2 32.7 POC ABG pO2 77.5 L POC ABG HCO3 22.6 POC ABG Base Excess -0.9 ABG Hemoglobin 8.5 L ABG Oxyhemoglobin 93.9 L ABG Methemoglobin 0.3 ABG Sodium 147.8 H ABG Potassium 2.9 L ABG Chloride 118.0 H ABG Glucose 65 Carboxyhemoglobin 2.1 H FiO2 30 Sodium Potassium Chloride Carbon Dioxide Anion Gap BUN Creatinine Estimated GFR BUN/Creatinine Ratio Glucose POC Glucose 107 H 78 Calcium Magnesium Total Bilirubin AST ALT Alkaline Phosphatase Total Protein Albumin Albumin/Globulin Ratio Arterial Blood Glucose 65 Arterial Blood Ionized Calcium 4.8 07/25/20 07/25/20 07/25/20 09:53 09:53 09:53 PT 22.3 H INR 1.94 H ABG pH POC ABG pCO2 POC ABG pO2 POC ABG HCO3 POC ABG Base Excess ABG Hemoglobin ABG Oxyhemoglobin ABG Methemoglobin ABG Sodium ABG Potassium ABG Chloride ABG Glucose Carboxyhemoglobin FiO2 Sodium 154 H Potassium 2.8 L* Chloride 121.5 H Carbon Dioxide 26 Anion Gap 9 BUN 47 H Creatinine 0.8 Estimated GFR > 60 BUN/Creatinine Ratio 59 Glucose 90 POC Glucose Calcium 8.8 Magnesium 1.70 Total Bilirubin 11.60 H AST 141 H ALT 115 H Alkaline Phosphatase 355 H Total Protein 4.3 L Albumin 2.2 L Albumin/Globulin Ratio 1.0 Arterial Blood Glucose Arterial Blood Ionized Calcium 07/25/20 11:41 PT INR ABG pH POC ABG pCO2 POC ABG pO2 POC ABG HCO3 POC ABG Base Excess ABG Hemoglobin ABG Oxyhemoglobin ABG Methemoglobin ABG Sodium ABG Potassium ABG Chloride ABG Glucose Carboxyhemoglobin FiO2 Sodium Potassium Chloride Carbon Dioxide Anion Gap BUN Creatinine Estimated GFR BUN/Creatinine Ratio Glucose POC Glucose 87 Calcium Magnesium Total Bilirubin AST ALT Alkaline Phosphatase Total Protein Albumin Albumin/Globulin Ratio Arterial Blood Glucose Arterial Blood Ionized Calcium
[2020-07-25] MEDS: FOLIC ACID 1 MG in SODIUM CHLORIDE 0.9% 50 ML IV SCH (14:34)
[2020-07-25] MEDS: ACYCLOVIR IV SCH ×2 (14:34→21:27)
[2020-07-25] MEDS: HYDROCORTISONE SOD SUCC 100 MG/2 ML VIAL IV SCH ×2 (14:34→21:31)
[2020-07-25] MEDS: SODIUM CHLORIDE 0.9% IV SCH ×2 (14:34→21:27)
[2020-07-25] MEDS: PANTOPRAZOLE 40 MG INJ IV SCH ×2 (14:34→21:32)
[2020-07-25] MEDS: THIAMINE 100 MG in SODIUM CHLORIDE 0.9% 50 ML IV SCH (14:34)
--- NOTE | 2020-07-25 17:43 | Progress Note ---
Assessment and Plan Acute kidney injury possibly due to Hepatorenal Syndrome vs Ischemic ATN due to Septics Shock: Hypotension Septic Shock Metabolic Acidosis Hypernatremia Acute Liver Failure Nausea and vomiting UTI ? Syphilis Plan: -Labs reviewed, most recent serum Na level was 154 today, yesterday's serum Na level was 150 and was kept higher in the setting of cerebral edema and avoiding hyponatremia. -Neurology evaluated pt, check MRI Brain, follow up recs -Follow family decision and goals of care -RINA resolved -Replete potassium -On pressors -Currently on D10 infusion at 50 ml/hr for hypoglycemia -S/p Albumin -Monitor I/O's daily -Kenney Catheter: Yes -Intake= 1037 ml Output= 2500 ml (Net= -1462 ml) -Renal plan d/w Dr Thapa Subjective Date of service: 07/25/20 Principal diagnosis: Acute Liver Injury Interval history: Pt seen in ICU intubated on ventilator, pt remains on pressors Objective - Vital Signs Vital signs: Vital Signs - 12hr 07/25/20 07/25/20 07/25/20 05:45 06:00 06:15 Temperature Pulse Rate 76 76 82 Pulse Rate [ From Monitor] Respiratory 18 18 18 Rate Blood Pressure 119/69 117/70 128/82 O2 Sat by Pulse 97 96 96 Oximetry 07/25/20 07/25/20 07/25/20 06:31 06:45 07:01 Temperature Pulse Rate 76 76 75 Pulse Rate [ From Monitor] Respiratory 18 18 18 Rate Blood Pressure 128/82 128/82 128/82 O2 Sat by Pulse 96 97 97 Oximetry 07/25/20 07/25/20 07/25/20 07:15 07:31 07:45 Temperature Pulse Rate 75 75 75 Pulse Rate [ From Monitor] Respiratory 18 18 18 Rate Blood Pressure 128/82 128/82 128/82 O2 Sat by Pulse 98 97 98 Oximetry 07/25/20 07/25/20 07/25/20 08:00 08:01 08:15 Temperature 97 F L Pulse Rate 71 73 Pulse Rate [ 73 From Monitor] Respiratory 18 18 18 Rate Blood Pressure 128/82 108/51 O2 Sat by Pulse 96 98 96 Oximetry 07/25/20 07/25/20 07/25/20 08:22 08:30 08:45 Temperature Pulse Rate 71 75 72 Pulse Rate [ From Monitor] Respiratory 18 18 Rate Blood Pressure 112/69 128/35 O2 Sat by Pulse 96 96 Oximetry 07/25/20 07/25/20 07/25/20 09:01 09:15 09:18 Temperature Pulse Rate 72 72 72 Pulse Rate [ From Monitor] Respiratory 18 18 Rate Blood Pressure 94/44 97/44 97/44 O2 Sat by Pulse 96 96 96 Oximetry 07/25/20 07/25/20 07/25/20 09:31 09:45 10:00 Temperature Pulse Rate 70 71 70 Pulse Rate [ From Monitor] Respiratory 18 18 18 Rate Blood Pressure 93/47 96/43 98/47 O2 Sat by Pulse 96 95 96 Oximetry 07/25/20 07/25/20 07/25/20 10:15 10:31 10:45 Temperature Pulse Rate 69 69 69 Pulse Rate [ From Monitor] Respiratory 18 18 18 Rate Blood Pressure 97/44 98/51 100/45 O2 Sat by Pulse 96 96 96 Oximetry 07/25/20 07/25/20 07/25/20 11:01 11:15 11:30 Temperature Pulse Rate 69 68 68 Pulse Rate [ From Monitor] Respiratory 18 18 18 Rate Blood Pressure 104/48 104/48 101/46 O2 Sat by Pulse 96 96 96 Oximetry 07/25/20 07/25/20 07/25/20 11:45 12:00 12:01 Temperature 97.6 F Pulse Rate 68 67 67 Pulse Rate [ 67 From Monitor] Respiratory 18 18 18 Rate Blood Pressure 101/52 102/45 O2 Sat by Pulse 96 97 97 Oximetry 07/25/20 07/25/20 07/25/20 12:15 12:31 12:45 Temperature Pulse Rate 67 67 66 Pulse Rate [ From Monitor] Respiratory 18 18 18 Rate Blood Pressure 102/45 102/45 103/54 O2 Sat by Pulse 97 97 97 Oximetry 07/25/20 07/25/20 07/25/20 13:01 13:15 13:31 Temperature Pulse Rate 66 67 65 Pulse Rate [ From Monitor] Respiratory 18 18 18 Rate Blood Pressure 101/48 102/56 100/46 O2 Sat by Pulse 97 97 96 Oximetry 07/25/20 07/25/20 07/25/20 13:45 14:01 14:15 Temperature Pulse Rate 66 66 65 Pulse Rate [ From Monitor] Respiratory 18 18 18 Rate Blood Pressure 100/49 99/47 99/52 O2 Sat by Pulse 96 97 97 Oximetry 07/25/20 07/25/20 07/25/20 14:30 14:45 15:01 Temperature Pulse Rate 66 65 65 Pulse Rate [ From Monitor] Respiratory 18 18 18 Rate Blood Pressure 102/52 102/52 99/51 O2 Sat by Pulse 97 97 97 Oximetry 07/25/20 07/25/20 07/25/20 15:15 15:31 15:45 Temperature Pulse Rate 66 66 65 Pulse Rate [ From Monitor] Respiratory 18 18 18 Rate Blood Pressure 99/51 98/56 102/59 O2 Sat by Pulse 97 97 97 Oximetry 07/25/20 07/25/20 07/25/20 16:00 16:15 16:23 Temperature Pulse Rate 66 66 66 Pulse Rate [ 66 From Monitor] Respiratory 18 18 Rate Blood Pressure 109/65 111/68 111/68 O2 Sat by Pulse 97 97 97 Oximetry 07/25/20 07/25/20 07/25/20 16:31 16:45 17:01 Temperature Pulse Rate 66 66 66 Pulse Rate [ From Monitor] Respiratory 18 18 18 Rate Blood Pressure 111/68 110/69 116/75 O2 Sat by Pulse 97 97 97 Oximetry 07/25/20 07/25/20 17:15 17:30 Temperature Pulse Rate 65 65 Pulse Rate [ From Monitor] Respiratory 18 18 Rate Blood Pressure 117/71 118/77 O2 Sat by Pulse 97 97 Oximetry - General Appearance General appearance: intubated Neck: no JVD Respiratory: Present: Other (Lung sounds decreased bilaterally, intubated) Cardiology: S1S2 Gastrointestinal: other (soft, orogastric tube in place) Integumentary: warm and dry Neurologic: other (intubated on ventilator) Musculoskeletal: other (1+ edema to BLE) Psychiatric: other (intubated) - Lab 07/23/20 07:39 07/25/20 09:53 Most recent lab results ABG pH 7.458 (7.320-7.450) H 07/25/20 05:20 ABG pCO2 31.2 mm Hg 07/22/20 04:25 ABG pO2 104.9 mm Hg (80.0-90.0) H 07/22/20 04:25 ABG HCO3 23.7 mmol/L (20.0-26.0) 07/22/20 04:25 ABG O2 Saturation 98.1 % (95.0-99.0) 07/22/20 04:25 Calcium 8.8 mg/dL (8.4-10.2) 07/25/20 09:53 Phosphorus 2.30 mg/dL (2.5-4.5) L D 07/24/20 10:14 Magnesium 1.70 mg/dL (1.7-2.3) 07/25/20 09:53 Medications & Allergies - Medications Allergies/Adverse Reactions: Allergies No Known Allergies Allergy (Verified 07/16/20 22:03) Home Medications: Home Medications Medication Instructions Recorded Confirmed Last Taken Type No Known Home Medications [No 07/17/20 07/17/20 Unknown History Reported Home Medications] Active Medications: Generic Name Dose Route Start Last Admin Trade Name Freq PRN Reason Stop Dose Admin Acetaminophen 650 mg 07/23/20 00:37 07/23/20 01:05 Acetaminophen 325 Mg/10.15 Ml Oral Liqd Unit Dose FEEDTUBE 650 mg Q6H PRN Administration Fever >101 Lipase/Protease/Amylase 1 each 07/23/20 08:37 Lipase 10,500/Protease 25,000/Amylase 43,750 (Units) Dr Sher FEEDTUBE PRN PRN For Clogged Feeding Tube Hydrocortisone Sodium Succinate 100 mg 07/25/20 12:00 07/25/20 14:34 Hydrocortisone Sod Succ 100 Mg/2 Ml Vial IV 100 mg Q8H ESTELA Administration Acyclovir 370 mg/ Sodium 107.4 mls @ 100 mls/hr 07/17/20 12:00 07/25/20 14:34 Chloride IV 100 mls/hr Q12HR ESTELA Administration Protocol Thiamine HCl 100 mg/ Sodium 51 mls @ 100 mls/hr 07/18/20 10:00 07/25/20 14:34 Chloride IV 100 mls/hr QDAY ESTELA Administration Folic Acid 1 mg/ Sodium 50.2 mls @ 200.8 mls/hr 07/18/20 10:00 07/25/20 14:34 Chloride IV 200.8 mls/hr QDAY ESTELA Administration Vasopressin 20 unit/ Sodium 101 mls @ 9.09 mls/hr 07/19/20 10:00 07/25/20 08:41 Chloride IV 0.03 units/min TITR ESTELA 9.09 mls/hr Administration Protocol 0.03 UNITS/MIN Norepinephrine 8 mg/ Sodium 250 mls @ 3.75 mls/hr 07/19/20 21:00 07/25/20 08:05 Chloride IV 4 mcg/min TITR ESTELA 7.5 mls/hr Titration Protocol 2 MCG/MIN Cefepime HCl 2 gm in 100 mls @ 200 mls/hr 07/23/20 14:00 07/25/20 03:15 Cefepime/Ns 2 Gm/100 Ml IV 200 mls/hr Q12H ESTELA Administration Protocol Vancomycin HCl 1,250 mg/ 275 mls @ 166.667 mls/hr 07/24/20 22:00 07/24/20 21:48 Sodium Chloride IV 166.667 mls/hr Q24H ESTELA Administration Dextrose 1,000 mls @ 50 mls/hr 07/25/20 09:00 07/25/20 09:54 D10w IV 50 mls/hr DIRECT ESTELA Administration Magnesium Hydroxide 30 ml 07/17/20 03:56 Magnesium Hydroxide (Mom) Oral Liqd Udc PO Q4H PRN Constipation Ondansetron HCl 4 mg 07/17/20 03:56 07/18/20 20:00 Ondansetron 4 Mg/2 Ml Inj IV 4 mg Q8H PRN Administration Nausea And Vomiting Pantoprazole Sodium 40 mg 07/24/20 10:00 07/25/20 14:34 Pantoprazole 40 Mg Inj IV 40 mg BID ESTELA Administration Simple Syrup 15 ml 07/23/20 08:37 Simple Syrup 15 Ml FEEDTUBE PRN PRN Hypoglycemia Simple Syrup 30 ml 07/23/20 08:37 Simple Syrup 15 Ml FEEDTUBE PRN PRN Hypoglycemia Sodium Bicarbonate 325 mg 07/23/20 08:37 Sodium Bicarbonate 325 Mg Tab FEEDTUBE PRN PRN For Clogged Feeding Tube Sodium Chloride 10 ml 07/17/20 10:00 07/25/20 14:35 Sodium Chloride 0.9% 10 Ml Flush Syringe IV 10 ml BID ESTELA Administration Sodium Chloride 10 ml 07/17/20 03:56 Sodium Chloride 0.9% 10 Ml Flush Syringe IV PRN PRN LINE FLUSH
[2020-07-25] MEDS: NORepinephrine 8 MG in SODIUM CHLORIDE 0.9% 250ML 242 ML IV SCH (20:34)
[2020-07-25] MEDS: VANCOMYCIN 1,250 MG in SODIUM CHLORIDE 0.9% 250ML 250 ML IV SCH (21:32)
[2020-07-26] MEDS: HYDROCORTISONE SOD SUCC 100 MG/2 ML VIAL IV SCH ×3 (04:32→21:02)
[2020-07-26] MEDS: CEFEPIME/NS 2 GM/100 ML 2 GM/100 ML BAG IV SCH (06:18)
--- NOTE | 2020-07-26 08:41 | Progress Note ---
Assessment and Plan The high probability of a clinically significant, sudden or life threatening deterioration of the [neuro, cardiac, renal, pulmonary] system(s) required my full and direct attention, intervention and personal management. The aggregate critical care time was [35] minutes. This time is in addition to time spent performing reported procedures but includes the following: [x] Data Review and interpretation [x] Patient assessment and monitoring of vital signs [x] Documentation [x] Medication orders and management - Patient Problems (1) Severe sepsis with septic shock Current Visit: Yes Status: Acute Plan to address problem: Sepsis protocol, IV pressor support, IV antibiotic therapy, IV fluid resuscitation therapy, maintain mean arterial pressure greater than or equal to 65, monitor urine output every shift, serial lactic acid level (2) Acute respiratory failure Current Visit: Yes Status: Acute Qualifiers: Respiratory failure complication: hypoxia Qualified Code(s): J96.01 - Acute respiratory failure with hypoxia Plan to address problem: Patient intubated and placed on ventilatory support overnight. Wean vent as tolerated, pulmonary team consulted, spontaneous breathing trial daily, sedation holiday, supportive care. (3) Acute liver failure Current Visit: Yes Status: Acute Plan to address problem: Supportive care, GI team consulted. Pt has poor prognosis, and currently unstable for transfer. (4) Metabolic acidosis Current Visit: Yes Status: Acute Plan to address problem: BMP, IV bicarbonate therapy, repeat BMP (5) UTI (urinary tract infection) Current Visit: Yes Status: Acute Qualifiers: Encounter type: initial encounter Plan to address problem: IV antibiotic therapy, supportive care. (6) DVT prophylaxis Current Visit: Yes Status: Acute Plan to address problem: SCD to bilateral lower extremities while in bed (7) Acute kidney injury (RINA) with acute tubular necrosis (ATN) Current Visit: Yes Status: Acute Plan to address problem: Nephrology team consulted, IV fluid resuscitation therapy, monitor urine output every shift, monitor fluid balance, supportive care. (8) Cardiac arrest Current Visit: Yes Status: Acute Plan to address problem: Patient experienced cardiac arrest overnight. Patient treated with ACLS protocol with eventual return of perfusing cardiac rhythm. Patient has poor prognosis. (9) Toxic metabolic encephalopathy Current Visit: Yes Status: Acute Plan to address problem: CT scan head, when medically stable, supportive care, continue medical management. Suspect anoxic brain injury. (10) Advance care planning Current Visit: Yes Status: Acute Plan to address problem: Disease education conducted, patient is full code, patient prognosis discussed with patient mother Tete Gao as well as patient xiomara today., patient family informed the patient shows no sign of brain function and is on multiple medications to maintain her current status. Patient family informed that patient has experienced nonsurvivable physiologic insult and has suffered anoxic brain injury. Patient family acknowledges prognosis but declines to make decision for gait regarding withdrawal of care due to patient's 5 children and that the need for necessary arrangements to be made for the care of the children. Awaiting decision on withdrawal of care. . Patient family informed of care plan. +60 minutes. Subjective Date of service: 07/25/20 Principal diagnosis: Acute Liver Injury Interval history: History Interval history: 29 YO Female HD #9 with Severe Sepsis complicated by Shock, Fulminant Hepatic Failure, ETOH Dependence, RINA with ATN, Toxic Metabolic Encephalopathy, Elevated INR, Metabolic Acidosis, Acute Respiratory Failure S/P Cardiac Arrest, Anoxic Brain Injury. Patient is critically ill and has very poor prognosis. Patient currently intubated and on ventilatory support. Patient has poor prognosis. No significant overnight improvement. Patient prognosis discussed again with patient mother and xiomara. Patient family acknowledges understanding patient condition and prognosis. Objective - Exam Narrative Exam: Patient intubated - Constitutional Vitals: Vital Signs - 12hr 07/25/20 07/25/20 07/25/20 20:46 21:00 21:16 Temperature Pulse Rate 63 65 65 Pulse Rate [ From Monitor] Respiratory 18 18 18 Rate Blood Pressure 102/49 102/49 102/49 O2 Sat by Pulse 95 96 96 Oximetry 07/25/20 07/25/20 07/25/20 21:30 21:46 22:00 Temperature Pulse Rate 65 64 65 Pulse Rate [ From Monitor] Respiratory 18 18 18 Rate Blood Pressure 126/78 124/74 118/84 O2 Sat by Pulse 97 97 96 Oximetry 07/25/20 07/25/20 07/25/20 22:16 22:30 22:46 Temperature Pulse Rate 66 66 67 Pulse Rate [ From Monitor] Respiratory 17 18 18 Rate Blood Pressure 124/80 125/75 135/85 O2 Sat by Pulse 96 96 97 Oximetry 07/25/20 07/25/20 07/25/20 23:00 23:16 23:30 Temperature Pulse Rate 66 67 66 Pulse Rate [ From Monitor] Respiratory 18 18 18 Rate Blood Pressure 135/85 134/91 134/91 O2 Sat by Pulse 97 97 96 Oximetry 07/25/20 07/25/20 07/25/20 23:44 23:46 23:59 Temperature 96.8 F L Pulse Rate 64 63 Pulse Rate [ From Monitor] Respiratory 18 18 Rate Blood Pressure 140/82 140/82 O2 Sat by Pulse 95 95 Oximetry 07/26/20 07/26/20 07/26/20 00:00 00:16 00:30 Temperature Pulse Rate 64 64 64 Pulse Rate [ 60 From Monitor] Respiratory 18 18 18 Rate Blood Pressure 140/82 106/66 106/66 O2 Sat by Pulse 96 97 97 Oximetry 07/26/20 07/26/20 07/26/20 00:46 00:55 01:00 Temperature Pulse Rate 61 59 L 59 L Pulse Rate [ From Monitor] Respiratory 18 18 Rate Blood Pressure 100/48 100/48 100/48 O2 Sat by Pulse 93 91 100 Oximetry 07/26/20 07/26/20 07/26/20 01:16 01:30 01:46 Temperature Pulse Rate 59 L 60 59 L Pulse Rate [ From Monitor] Respiratory 18 18 18 Rate Blood Pressure 98/51 92/44 94/43 O2 Sat by Pulse 92 92 93 Oximetry 07/26/20 07/26/20 07/26/20 02:00 02:15 02:30 Temperature Pulse Rate 59 L 59 L 63 Pulse Rate [ From Monitor] Respiratory 18 18 17 Rate Blood Pressure 92/47 94/51 94/51 O2 Sat by Pulse 93 94 96 Oximetry 07/26/20 07/26/20 07/26/20 02:45 03:00 03:16 Temperature Pulse Rate 62 61 61 Pulse Rate [ From Monitor] Respiratory 18 18 18 Rate Blood Pressure 126/84 125/86 124/83 O2 Sat by Pulse 95 95 96 Oximetry 07/26/20 07/26/20 07/26/20 03:30 03:36 03:46 Temperature 97.0 F L Pulse Rate 61 61 Pulse Rate [ From Monitor] Respiratory 18 18 Rate Blood Pressure 128/86 124/81 O2 Sat by Pulse 96 96 Oximetry 07/26/20 07/26/20 07/26/20 04:00 04:16 04:30 Temperature Pulse Rate 57 L 61 61 Pulse Rate [ 61 From Monitor] Respiratory 18 18 18 Rate Blood Pressure 118/83 122/80 122/80 O2 Sat by Pulse 93 96 95 Oximetry 07/26/20 07/26/20 07/26/20 04:46 05:00 05:16 Temperature Pulse Rate 60 57 L 57 L Pulse Rate [ From Monitor] Respiratory 18 18 18 Rate Blood Pressure 100/45 100/45 94/40 O2 Sat by Pulse 93 92 92 Oximetry 07/26/20 07/26/20 07/26/20 05:30 05:46 06:00 Temperature Pulse Rate 57 L 56 L 56 L Pulse Rate [ From Monitor] Respiratory 18 18 18 Rate Blood Pressure 94/40 93/44 96/40 O2 Sat by Pulse 100 92 94 Oximetry 07/26/20 07/26/20 07/26/20 06:15 06:30 06:46 Temperature Pulse Rate 57 L 60 57 L Pulse Rate [ From Monitor] Respiratory 18 18 18 Rate Blood Pressure 100/63 100/63 100/63 O2 Sat by Pulse 96 97 93 Oximetry 07/26/20 07/26/20 07/26/20 07:00 07:16 07:30 Temperature Pulse Rate 65 59 L 59 L Pulse Rate [ From Monitor] Respiratory 18 18 18 Rate Blood Pressure 87/46 182/116 182/116 O2 Sat by Pulse 98 95 94 Oximetry 07/26/20 07/26/20 07/26/20 07:45 08:00 08:16 Temperature Pulse Rate 58 L 58 L 56 L Pulse Rate [ From Monitor] Respiratory 18 18 18 Rate Blood Pressure 121/91 126/85 99/60 O2 Sat by Pulse 95 95 93 Oximetry 07/26/20 08:30 Temperature Pulse Rate 60 Pulse Rate [ From Monitor] Respiratory 18 Rate Blood Pressure 99/60 O2 Sat by Pulse 96 Oximetry General appearance: Present: mild distress, well-nourished - EENT Eyes: PERRL, EOM intact ENT: hearing intact, clear oral mucosa Ears: bilateral: normal - Neck Neck: supple, normal ROM - Respiratory Respiratory effort: normal Respiratory: bilateral: CTA, rhonchi (Scattered rhonchi) - Breasts Breasts: normal - Cardiovascular Heart rate: 86 Rhythm: regular Heart Sounds: Present: S1 & S2. Absent: gallop, rub Extremities: pulses intact, No edema, normal color, Full ROM - Gastrointestinal General gastrointestinal: Present: soft, non-tender, non-distended, normal bowel sounds - Genitourinary Female genitourinary: normal - Integumentary Integumentary: clear, warm, dry - Musculoskeletal Musculoskeletal: 1, strength equal bilaterally - Neurologic Neurologic: moves all extremities - Psychiatric Psychiatric: other (Intubated and sedated) - Labs CBC & Chem 7: 07/23/20 07:39 07/25/20 09:53 Labs: Abnormal lab results 07/25/20 07/25/20 07/25/20 Range/Units 08:38 09:53 09:53 PT 22.3 H (12.2-14.9) Sec. INR 1.94 H (0.87-1.13) Sodium 154 H (137-145) mmol/L Potassium 2.8 L* (3.6-5.0) mmol/L Chloride 121.5 H (98-107) mmol/L BUN 47 H (7-17) mg/dL POC Glucose 107 H (70-105) mg/dL Total Bilirubin 11.60 H (0.1-1.2) mg/dL AST 141 H (5-40) units/L ALT 115 H (7-56) units/L Alkaline Phosphatase 355 H (35-129) units/L Total Protein 4.3 L (6.3-8.2) g/dL Albumin 2.2 L (3.9-5) g/dL 07/25/20 07/26/20 07/26/20 Range/Units 21:54 01:54 05:38 PT (12.2-14.9) Sec. INR (0.87-1.13) Sodium (137-145) mmol/L Potassium (3.6-5.0) mmol/L Chloride (98-107) mmol/L BUN (7-17) mg/dL POC Glucose 112 H 130 H 155 H (70-105) mg/dL Total Bilirubin (0.1-1.2) mg/dL AST (5-40) units/L ALT (7-56) units/L Alkaline Phosphatase (35-129) units/L Total Protein (6.3-8.2) g/dL Albumin (3.9-5) g/dL 07/26/20 Range/Units 07:48 PT (12.2-14.9) Sec. INR (0.87-1.13) Sodium (137-145) mmol/L Potassium (3.6-5.0) mmol/L Chloride (98-107) mmol/L BUN (7-17) mg/dL POC Glucose 155 H (70-105) mg/dL Total Bilirubin (0.1-1.2) mg/dL AST (5-40) units/L ALT (7-56) units/L Alkaline Phosphatase (35-129) units/L Total Protein (6.3-8.2) g/dL Albumin (3.9-5) g/dL HEART Score - HEART Score Troponin: Troponin T < 0.010 ng/mL (0.00-0.029) 07/16/20 20:47
[2020-07-26] MEDS: VASOPRESSIN 20 UNIT in SODIUM CHLORIDE 0.9% 100 ML IV SCH ×2 (09:43→21:02)
[2020-07-26] MEDS: DEXTROSE 10% IN WATER 1,000 ML IV SCH (09:46)
[2020-07-26] MEDS: PANTOPRAZOLE 40 MG INJ IV SCH (09:47)
--- NOTE | 2020-07-26 10:45 | Gastroenterology Progress Note ---
Assessment and Plan # Acute liver failure - etiology possible ETOH vs tylenol or both. completed NAC therapy. Liver enzymes are stable. INR stable. Expect Tbili that will slow to return to normal. - s/p cardiac arrest on 07/19/[address] head on 07/19/2020 showing cerebral edema. Unclear if there is recovering from neurological standpoint. Neurology consulted on 07/24/2020. - case discussed with [facility] on 07/22/2020 and 07/23/2020. - Liver function appears to be recovering slowly. INR stable and LFTs stable. - For us[facility] prognosis, neurological insult is the most concerning. - neurology consult. EEG done on 07/25/2020 and MRI planned for today. Rec - avoid hepatotoxins. - management for sepsis/shock per primary/ICU team. ID on board. - monitor LFTs and INR daily. - will follow. - poor prognosis overall. on-going discussion with family by primary team. Subjective Date of service: 07/26/20 Principal diagnosis: Acute Liver Injury Interval history: Patient remains intubated and unresponsive. Had EEG yesterday. Objective - Constitutional Vitals: Temp Pulse Resp BP Pulse Ox 97.4 F L 54 L 18 106/55 94 07/26/20 08:00 07/26/20 09:46 07/26/20 09:46 07/26/20 09:46 07/26/20 09:46 General appearance: other (unresponsive) - Respiratory Respiratory effort: other (intubated and on the vent) - Cardiovascular Rhythm: regular Heart Sounds: Present: S1 & S2 - Extremities Extremity abnormal: edema - Gastrointestinal General gastrointestinal: Present: soft, non-distended - Labs CBC & Chem 7: 07/23/20 07:39 07/25/20 09:53 Labs: Laboratory Results - last 24 hr 07/23/20 07/25/20 07/25/20 13:19 09:53 09:53 PT 22.3 H INR 1.94 H Sodium 154 H Potassium 2.8 L* Chloride 121.5 H Carbon Dioxide 26 Anion Gap 9 BUN 47 H Creatinine 0.8 Estimated GFR > 60 BUN/Creatinine Ratio 59 Glucose 90 POC Glucose Calcium 8.8 Magnesium Total Bilirubin 11.60 H AST 141 H ALT 115 H Alkaline Phosphatase 355 H Total Protein 4.3 L Albumin 2.2 L Albumin/Globulin Ratio 1.0 Nasal Screen MRSA (PCR) Negative 07/25/20 07/25/20 07/25/20 09:53 11:41 18:15 PT INR Sodium Potassium Chloride Carbon Dioxide Anion Gap BUN Creatinine Estimated GFR BUN/Creatinine Ratio Glucose POC Glucose 87 89 Calcium Magnesium 1.70 Total Bilirubin AST ALT Alkaline Phosphatase Total Protein Albumin Albumin/Globulin Ratio Nasal Screen MRSA (PCR) 07/25/20 07/26/20 07/26/20 21:54 01:54 05:38 PT INR Sodium Potassium Chloride Carbon Dioxide Anion Gap BUN Creatinine Estimated GFR BUN/Creatinine Ratio Glucose POC Glucose 112 H 130 H 155 H Calcium Magnesium Total Bilirubin AST ALT Alkaline Phosphatase Total Protein Albumin Albumin/Globulin Ratio Nasal Screen MRSA (PCR) 07/26/20 07:48 PT INR Sodium Potassium Chloride Carbon Dioxide Anion Gap BUN Creatinine Estimated GFR BUN/Creatinine Ratio Glucose POC Glucose 155 H Calcium Magnesium Total Bilirubin AST ALT Alkaline Phosphatase Total Protein Albumin Albumin/Globulin Ratio Nasal Screen MRSA (PCR)
--- NOTE | 2020-07-26 12:32 | Progress Note ---
Assessment and Plan Cultures: 07/16/2020 blood culture: no growth 07/17/2020 cervix wet prep: High number of clue cells, no trichomonas or yeast seen. Syphilis IgG: Positive, RPR negative, FTA-ABS is also nonreactive GC NAAT: negative Hepatitis panel: Negative HIV: Negative 07/22/2020 blood culture: No growth A/P: 29/F with: #CODE blue: s/p CPR on 07/19/2020. #Severe sepsis septic shock/MODS: remains on pressors. No clear infectious etiology. Likely secondary to acute hepatic failure. #Bilateral pneumonia versus pulmonary edema: Bilateral pleural effusions, diffuse bilateral patchy groundglass opacities #Acute hepatic failure: ?Toxin/med related v/s autoimmune, less likely infect ious. Also ruling out HSV induced hepatic necrosis and related fulminant hepatic falure. GI following. LFTs and synthetic liver function seem to be gradually improving. MARY negative, C3, C4 low. #Acute kidney injury: resolved #Possible UTI/PID: has been on empiric abx. GC NAAT negative. #Diffuse colitis noted on CT scan: Already on antibiotics. On multiple pressors. More likely to be ischemia related. No active diarrhea. #Acute encephalopathy, diffuse cerebral edema: Probably a combination of acute liver failure and hypoxic encephalopathy. #Acute thrombocytopenia: #Anemia: #Syphilis IgG positive, RPR titer non reactive, FTA-ABS is also nonreactive, so very likely it is a false positive Recs: -no clear infectious source identified, will d/c Cefepime and Vancomycin -Continue renally dosed acyclovir, till results of serum HSV DNA PCR are back -overall poor prognosis, high mortality Kinjal Abebe MD, FACP [facility], [facility] ([facility]) O: [phone] F: [phone] Subjective Date of service: 07/26/20 Principal diagnosis: Acute Liver Injury Interval history: No fever. Remains critically ill. Remains on the vent. Remains on 2 pressors. Non responsive. Objective - Exam Narrative Exam: Physical Exam: Constitutional: unresponsive, intubated, on the vent Head, Ears, Nose: Normocephalic, atraumatic. External ears, nose normal Eyes: Conjunctivae/corneas clear. No icterus. No ptosis. Neck: intubated Oral: intubated Cardiovascular: S1, S2 + Respiratory: AE fair bilaterally and equal GI: Soft, bowel sounds hypo Musculoskeletal: edema +, no cyanosis. Skin: No rash or abscess Hem/Lymphatic: No palpable cervical or supraclavicular nodes. No lymphangitis Psych: no agitation Neurological: unresponsive, intubated, on the vent, exam limited - Constitutional Vitals: Vital Signs Temp Pulse Resp BP Pulse Ox 97.4 F L 54 L 18 106/55 94 07/26/20 08:00 07/26/20 09:46 07/26/20 09:46 07/26/20 09:46 07/26/20 09:46 Temperature -Last 24 Hours Temperature 97.4 F Temperature 97.4 F Temperature 97.0 F Temperature 96.8 F Temperature 97.0 F Temperature 98.6 F - Labs CBC & Chem 7: 07/23/20 07:39 07/25/20 09:53 Labs: Abnormal lab results 07/23/20 07/23/20 07/25/20 Range/Units 23:52 23:52 21:54 POC Glucose 112 H (70-105) mg/dL Complement C3 55 L (83-193) mg/dL Complement C4 11 L (15-57) mg/dL 07/26/20 07/26/20 07/26/20 Range/Units 01:54 05:38 07:48 POC Glucose 130 H 155 H 155 H (70-105) mg/dL Complement C3 (83-193) mg/dL Complement C4 (15-57) mg/dL 07/26/20 Range/Units 11:31 POC Glucose 147 H (70-105) mg/dL Complement C3 (83-193) mg/dL Complement C4 (15-57) mg/dL
[2020-07-26 15:10] LABS: INR 1.83 (0.87-1.13)
[2020-07-26 15:15] LABS: Blood Urea Nitrogen 42 mg/dL (7-17); Calcium 8.5 mg/dL (8.4-10.2); Hemolysis Index 8
[2020-07-26 15:20] LABS: Albumin 2.3 g/dL (3.9-5); BUN/Creatinine Ratio 60; Bilirubin,Direct 8.6 mg/dL (0-0.2)
--- NOTE | 2020-07-26 16:04 | Progress Note ---
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 07/26/2020: Await MRI. Continue supportive care. Hopeful to wean off levo so we can start feeding patient later today. Will replace lytes and give more free water. Prognosis still appears to be very very poor from a neurological standpoint. 07/25/2020: Reviewed consultants notes on yesterday. Neuro has requested EEG to rule out status. Will speak with them in regards to MRI. Patient is stable enough for travel as pressor requirement is minimal and vent requirement is minimal. No objection to travel. Given hypoglycemia, will change fingersticks to q1 hour. Unable to feed secondary to pressor requirement or this could resultant of liver impairment. Overall prognosis appears to be poor. ] Continue supportive vent care. Not weanable secondary to mental state. Will await family meeting Wean Vasopressors for MAPS >65 Once down to one pressor can feed Will obtain formal neurology consult today May need to consider EEG Overall prognosis appears to be very poor. CCT 31 minutes. Subjective Date of service: 07/26/20 Principal diagnosis: Acute Liver Injury Interval history: No acute events. Still on 2 pressors but very low dose of levo. mental state is unchanged. still awaiting MRI Objective Vital Signs - 12hr 07/26/20 07/26/20 07/26/20 04:16 04:30 04:46 Temperature Pulse Rate 61 61 60 Pulse Rate [ 61 From Monitor] Respiratory 18 18 18 Rate Blood Pressure 122/80 122/80 100/45 O2 Sat by Pulse 96 95 93 Oximetry 07/26/20 07/26/20 07/26/20 05:00 05:16 05:30 Temperature Pulse Rate 57 L 57 L 57 L Pulse Rate [ From Monitor] Respiratory 18 18 18 Rate Blood Pressure 100/45 94/40 94/40 O2 Sat by Pulse 92 92 100 Oximetry 07/26/20 07/26/20 07/26/20 05:46 06:00 06:15 Temperature Pulse Rate 56 L 56 L 57 L Pulse Rate [ From Monitor] Respiratory 18 18 18 Rate Blood Pressure 93/44 96/40 100/63 O2 Sat by Pulse 92 94 96 Oximetry 07/26/20 07/26/20 07/26/20 06:30 06:46 07:00 Temperature Pulse Rate 60 57 L 65 Pulse Rate [ From Monitor] Respiratory 18 18 18 Rate Blood Pressure 100/63 100/63 87/46 O2 Sat by Pulse 97 93 98 Oximetry 07/26/20 07/26/20 07/26/20 07:16 07:30 07:45 Temperature Pulse Rate 59 L 59 L 58 L Pulse Rate [ From Monitor] Respiratory 18 18 18 Rate Blood Pressure 182/116 182/116 121/91 O2 Sat by Pulse 95 94 95 Oximetry 07/26/20 07/26/20 07/26/20 08:00 08:16 08:30 Temperature 97.4 F L Pulse Rate 56 L 56 L 60 Pulse Rate [ 60 From Monitor] Respiratory 18 18 18 Rate Blood Pressure 126/85 99/60 99/60 O2 Sat by Pulse 95 93 96 Oximetry 07/26/20 07/26/20 07/26/20 08:46 09:00 09:16 Temperature Pulse Rate 58 L 57 L 56 L Pulse Rate [ From Monitor] Respiratory 18 17 18 Rate Blood Pressure 119/78 117/73 106/58 O2 Sat by Pulse 95 94 94 Oximetry 07/26/20 07/26/20 07/26/20 09:30 09:35 09:46 Temperature Pulse Rate 55 L 54 L 54 L Pulse Rate [ From Monitor] Respiratory 18 18 Rate Blood Pressure 106/55 110/67 106/55 O2 Sat by Pulse 95 95 94 Oximetry 07/26/20 07/26/20 07/26/20 10:00 10:16 10:30 Temperature Pulse Rate 57 L 55 L 56 L Pulse Rate [ From Monitor] Respiratory 18 18 18 Rate Blood Pressure 124/82 101/64 107/73 O2 Sat by Pulse 96 95 95 Oximetry 07/26/20 07/26/20 07/26/20 10:45 11:00 11:16 Temperature Pulse Rate 55 L 54 L 53 L Pulse Rate [ From Monitor] Respiratory 18 18 18 Rate Blood Pressure 110/67 109/71 104/65 O2 Sat by Pulse 94 95 94 Oximetry 07/26/20 07/26/20 07/26/20 11:30 11:45 12:00 Temperature 97.4 F L Pulse Rate 53 L 54 L 54 L Pulse Rate [ 50 L From Monitor] Respiratory 18 18 18 Rate Blood Pressure 110/69 111/70 112/72 O2 Sat by Pulse 94 94 95 Oximetry 07/26/20 07/26/20 07/26/20 12:15 12:30 12:45 Temperature Pulse Rate 54 L 53 L 54 L Pulse Rate [ From Monitor] Respiratory 18 18 18 Rate Blood Pressure 112/73 115/72 112/72 O2 Sat by Pulse 95 95 95 Oximetry 07/26/20 07/26/20 07/26/20 13:00 13:15 13:30 Temperature Pulse Rate 54 L 53 L 53 L Pulse Rate [ From Monitor] Respiratory 18 18 18 Rate Blood Pressure 113/74 115/74 111/73 O2 Sat by Pulse 95 95 95 Oximetry 07/26/20 07/26/20 07/26/20 13:45 14:00 14:16 Temperature Pulse Rate 54 L 53 L 53 L Pulse Rate [ From Monitor] Respiratory 18 18 18 Rate Blood Pressure 115/73 110/70 112/71 O2 Sat by Pulse 95 94 95 Oximetry 07/26/20 07/26/20 14:25 14:30 Temperature Pulse Rate 52 L 55 L Pulse Rate [ From Monitor] Respiratory 17 Rate Blood Pressure 113/75 112/71 O2 Sat by Pulse 94 95 Oximetry Constitutional: comatose Eyes: icteric ENT: other (orally intubated, no sedation) Neck: supple Effort: normal Ascultation: Bilateral: rales, rhonchi (anteriorly), other (coarse BS bilaterally) Cardiovascular: other (tachy, RR; no mrg) Gastrointestinal: normoactive bowel sounds, soft, non-tender, non-distended Integumentary: normal Extremities: no cyanosis, edema (1+ bilateral LE edema) Neurologic: other (unresponsive) Psychiatric: other (unable to assess) CBC and BMP: 07/23/20 07:39 07/26/20 14:47 ABG, PT/INR, D-dimer: ABG ABG pH 7.458 (7.320-7.450) H 07/25/20 05:20 POC ABG pCO2 32.7 mmHg (32.0-48.0) 07/25/20 05:20 ABG pCO2 31.2 mm Hg 07/22/20 04:25 POC ABG pO2 77.5 mmHg (83-108) L 07/25/20 05:20 ABG pO2 104.9 mm Hg (80.0-90.0) H 07/22/20 04:25 POC ABG HCO3 22.6 07/25/20 05:20 ABG O2 Saturation 98.1 % (95.0-99.0) 07/22/20 04:25 PT/INR, D-dimer PT 21.2 Sec. (12.2-14.9) H 07/26/20 14:47 INR 1.83 (0.87-1.13) H 07/26/20 14:47 Abnormal lab findings: Abnormal Labs 07/16/20 07/16/20 07/16/20 03:54 20:47 20:47 WBC 33.9 H RBC Hgb Hct MCV 107 H MCH 34 H MCHC RDW 22.0 H Plt Count Lymph % (Auto) [place] % (Auto) Lymph # (Auto) [place] # (Auto) Eos # (Auto) Seg Neutrophils % Seg Neuts % (Manual) 89.0 H Lymphocytes % (Manual) 2.0 L Monocytes % (Manual) Nucleated RBC % 1.0 H Seg Neutrophils # Seg Neutrophils # Man 30.2 H Lymphocytes # (Manual) 0.7 L Monocytes # (Manual) 1.4 H Eosinophils # (Manual) PT INR ABG pH POC ABG pCO2 POC ABG pO2 ABG pO2 ABG Base Excess ABG Hemoglobin ABG Oxyhemoglobin ABG Sodium ABG Potassium ABG Chloride ABG Glucose VBG pH Oxyhemoglobin Carboxyhemoglobin Sodium Potassium 5.1 H Chloride Carbon Dioxide 9 L* BUN 20 H Creatinine 1.9 H Glucose 30 L* POC Glucose Lactic Acid Calcium Phosphorus Magnesium Total Bilirubin 5.40 H Direct Bilirubin AST 50645 H ALT 1829 H Alkaline Phosphatase 141 H Ammonia Total Creatine Kinase C-Reactive Protein Total Protein Albumin Lipase 9 L Arterial Blood Glucose Arterial Blood Ionized Calcium Urine WBC (Auto) 57.0 H U Epithel Cells (Auto) 23.0 H Acetaminophen Complement C3 Complement C4 Syphilis IgG Antibody HSV I Specific Ab Crossmatch 07/16/20 07/16/20 07/16/20 20:47 22:43 23:06 WBC RBC Hgb Hct MCV MCH MCHC RDW Plt Count Lymph % (Auto) [place] % (Auto) Lymph # (Auto) [place] # (Auto) Eos # (Auto) Seg Neutrophils % Seg Neuts % (Manual) Lymphocytes % (Manual) Monocytes % (Manual) Nucleated RBC % Seg Neutrophils # Seg Neutrophils # Man Lymphocytes # (Manual) Monocytes # (Manual) Eosinophils # (Manual) PT INR ABG pH POC ABG pCO2 POC ABG pO2 ABG pO2 ABG Base Excess ABG Hemoglobin ABG Oxyhemoglobin ABG Sodium ABG Potassium ABG Chloride ABG Glucose VBG pH Oxyhemoglobin Carboxyhemoglobin Sodium Potassium Chloride Carbon Dioxide BUN Creatinine Glucose POC Glucose 140 H Lactic Acid 14.90 H* Calcium Phosphorus Magnesium Total Bilirubin Direct Bilirubin AST ALT Alkaline Phosphatase Ammonia Total Creatine Kinase 230 H C-Reactive Protein Total Protein Albumin Lipase Arterial Blood Glucose Arterial Blood Ionized Calcium Urine WBC (Auto) U Epithel Cells (Auto) Acetaminophen Complement C3 Complement C4 Syphilis IgG Antibody HSV I Specific Ab Crossmatch 07/17/20 07/17/20 07/17/20 01:46 01:46 04:55 WBC RBC Hgb Hct MCV MCH MCHC RDW Plt Count Lymph % (Auto) [place] % (Auto) Lymph # (Auto) [place] # (Auto) Eos # (Auto) Seg Neutrophils % Seg Neuts % (Manual) Lymphocytes % (Manual) Monocytes % (Manual) Nucleated RBC % Seg Neutrophils # Seg Neutrophils # Man Lymphocytes # (Manual) Monocytes # (Manual) Eosinophils # (Manual) PT INR ABG pH POC ABG pCO2 POC ABG pO2 ABG pO2 ABG Base Excess ABG Hemoglobin ABG Oxyhemoglobin ABG Sodium ABG Potassium ABG Chloride ABG Glucose VBG pH 7.085 L* Oxyhemoglobin Carboxyhemoglobin Sodium Potassium Chloride Carbon Dioxide BUN Creatinine Glucose POC Glucose Lactic Acid 13.20 H* 12.00 H* Calcium Phosphorus Magnesium Total Bilirubin Direct Bilirubin AST ALT Alkaline Phosphatase Ammonia Total Creatine Kinase C-Reactive Protein Total Protein Albumin Lipase Arterial Blood Glucose Arterial Blood Ionized Calcium Urine WBC (Auto) U Epithel Cells (Auto) Acetaminophen Complement C3 Complement C4 Syphilis IgG Antibody HSV I Specific Ab Crossmatch 07/17/20 07/17/20 07/17/20 06:05 07:33 07:48 WBC RBC Hgb Hct MCV MCH MCHC RDW Plt Count Lymph % (Auto) [place] % (Auto) Lymph # (Auto) [place] # (Auto) Eos # (Auto) Seg Neutrophils % Seg Neuts % (Manual) Lymphocytes % (Manual) Monocytes % (Manual) Nucleated RBC % Seg Neutrophils # Seg Neutrophils # Man Lymphocytes # (Manual) Monocytes # (Manual) Eosinophils # (Manual) PT INR ABG pH POC ABG pCO2 POC ABG pO2 ABG pO2 ABG Base Excess ABG Hemoglobin ABG Oxyhemoglobin ABG Sodium ABG Potassium ABG Chloride ABG Glucose VBG pH Oxyhemoglobin Carboxyhemoglobin Sodium Potassium Chloride Carbon Dioxide BUN Creatinine Glucose POC Glucose 59 L 125 H Lactic Acid 12.00 H* Calcium Phosphorus Magnesium Total Bilirubin Direct Bilirubin AST ALT Alkaline Phosphatase Ammonia Total Creatine Kinase C-Reactive Protein Total Protein Albumin Lipase Arterial Blood Glucose Arterial Blood Ionized Calcium Urine WBC (Auto) U Epithel Cells (Auto) Acetaminophen Complement C3 Complement C4 Syphilis IgG Antibody HSV I Specific Ab Crossmatch 07/17/20 07/17/20 07/17/20 09:23 09:23 09:24 WBC RBC Hgb Hct MCV MCH MCHC RDW Plt Count Lymph % (Auto) [place] % (Auto) Lymph # (Auto) [place] # (Auto) Eos # (Auto) Seg Neutrophils % Seg Neuts % (Manual) Lymphocytes % (Manual) Monocytes % (Manual) Nucleated RBC % Seg Neutrophils # Seg Neutrophils # Man Lymphocytes # (Manual) Monocytes # (Manual) Eosinophils # (Manual) PT INR ABG pH POC ABG pCO2 POC ABG pO2 ABG pO2 ABG Base Excess ABG Hemoglobin ABG Oxyhemoglobin ABG Sodium ABG Potassium ABG Chloride ABG Glucose VBG pH Oxyhemoglobin Carboxyhemoglobin Sodium Potassium 5.7 H Chloride 107.6 H Carbon Dioxide 13 L BUN 24 H Creatinine 2.1 H Glucose 121 H POC Glucose Lactic Acid Calcium 6.0 L D Phosphorus Magnesium Total Bilirubin 3.80 H Direct Bilirubin AST 8355 H ALT 1522 H Alkaline Phosphatase Ammonia Total Creatine Kinase 332 H C-Reactive Protein Total Protein 4.7 L D Albumin 2.8 L Lipase Arterial Blood Glucose Arterial Blood Ionized Calcium Urine WBC (Auto) U Epithel Cells (Auto) Acetaminophen 5.0 L Complement C3 Complement C4 Syphilis IgG Antibody HSV I Specific Ab Crossmatch 07/17/20 07/17/20 07/17/20 11:08 11:08 11:08 WBC RBC Hgb Hct MCV MCH MCHC RDW Plt Count Lymph % (Auto) [place] % (Auto) Lymph # (Auto) [place] # (Auto) Eos # (Auto) Seg Neutrophils % Seg Neuts % (Manual) Lymphocytes % (Manual) Monocytes % (Manual) Nucleated RBC % Seg Neutrophils # Seg Neutrophils # Man Lymphocytes # (Manual) Monocytes # (Manual) Eosinophils # (Manual) PT 60.1 H INR > 17.67 H* ABG pH POC ABG pCO2 POC ABG pO2 ABG pO2 ABG Base Excess ABG Hemoglobin ABG Oxyhemoglobin ABG Sodium ABG Potassium ABG Chloride ABG Glucose VBG pH Oxyhemoglobin Carboxyhemoglobin Sodium Potassium Chloride Carbon Dioxide BUN Creatinine Glucose POC Glucose Lactic Acid 9.80 H* Calcium Phosphorus Magnesium Total Bilirubin Direct Bilirubin AST ALT Alkaline Phosphatase Ammonia Total Creatine Kinase C-Reactive Protein Total Protein Albumin Lipase Arterial Blood Glucose Arterial Blood Ionized Calcium Urine WBC (Auto) U Epithel Cells (Auto) Acetaminophen Complement C3 Complement C4 Syphilis IgG Antibody Reactive A HSV I Specific Ab Crossmatch 07/17/20 07/17/20 07/17/20 11:08 14:34 14:34 WBC 27.2 H RBC 2.66 L Hgb 9.1 L D Hct 27.8 L D MCV 104 H MCH 34 H MCHC RDW 22.6 H Plt Count Lymph % (Auto) [place] % (Auto) Lymph # (Auto) [place] # (Auto) Eos # (Auto) Seg Neutrophils % Seg Neuts % (Manual) Lymphocytes % (Manual) Monocytes % (Manual) Nucleated RBC % Seg Neutrophils # Seg Neutrophils # Man Lymphocytes # (Manual) Monocytes # (Manual) Eosinophils # (Manual) PT INR ABG pH POC ABG pCO2 POC ABG pO2 ABG pO2 ABG Base Excess ABG Hemoglobin ABG Oxyhemoglobin ABG Sodium ABG Potassium ABG Chloride ABG Glucose VBG pH Oxyhemoglobin Carboxyhemoglobin Sodium Potassium 5.4 H Chloride 107.7 H Carbon Dioxide 16 L BUN 26 H Creatinine 2.3 H Glucose 151 H POC Glucose Lactic Acid Calcium 5.8 L* Phosphorus Magnesium Total Bilirubin 3.30 H Direct Bilirubin AST 6751 H ALT 1325 H Alkaline Phosphatase Ammonia Total Creatine Kinase C-Reactive Protein Total Protein 4.4 L Albumin 2.5 L Lipase Arterial Blood Glucose Arterial Blood Ionized Calcium Urine WBC (Auto) U Epithel Cells (Auto) Acetaminophen Complement C3 Complement C4 Syphilis IgG Antibody HSV I Specific Ab 5.23 H Crossmatch 07/17/20 07/17/20 07/17/20 14:34 14:34 14:34 WBC RBC Hgb Hct MCV MCH MCHC RDW Plt Count Lymph % (Auto) [place] % (Auto) Lymph # (Auto) [place] # (Auto) Eos # (Auto) Seg Neutrophils % Seg Neuts % (Manual) Lymphocytes % (Manual) Monocytes % (Manual) Nucleated RBC % Seg Neutrophils # Seg Neutrophils # Man Lymphocytes # (Manual) Monocytes # (Manual) Eosinophils # (Manual) PT 70.6 H INR 8.29 H* ABG pH POC ABG pCO2 POC ABG pO2 ABG pO2 ABG Base Excess ABG Hemoglobin ABG Oxyhemoglobin ABG Sodium ABG Potassium ABG Chloride ABG Glucose VBG pH Oxyhemoglobin Carboxyhemoglobin Sodium Potassium Chloride Carbon Dioxide BUN Creatinine Glucose POC Glucose Lactic Acid 7.60 H* Calcium Phosphorus Magnesium Total Bilirubin Direct Bilirubin AST ALT Alkaline Phosphatase Ammonia 75.0 H Total Creatine Kinase C-Reactive Protein Total Protein Albumin Lipase Arterial Blood Glucose Arterial Blood Ionized Calcium Urine WBC (Auto) U Epithel Cells (Auto) Acetaminophen Complement C3 Complement C4 Syphilis IgG Antibody HSV I Specific Ab Crossmatch 07/17/20 07/17/20 07/18/20 16:45 16:45 04:23 WBC 22.7 H RBC 2.47 L Hgb 8.5 L Hct 25.5 L MCV 103 H MCH 35 H MCHC RDW 21.7 H Plt Count Lymph % (Auto) 5.3 L [place] % (Auto) Lymph # (Auto) [place] # (Auto) Eos # (Auto) 0.7 H Seg Neutrophils % 88.2 H Seg Neuts % (Manual) Lymphocytes % (Manual) Monocytes % (Manual) Nucleated RBC % Seg Neutrophils # 20.0 H Seg Neutrophils # Man Lymphocytes # (Manual) Monocytes # (Manual) Eosinophils # (Manual) PT INR ABG pH POC ABG pCO2 POC ABG pO2 ABG pO2 ABG Base Excess ABG Hemoglobin ABG Oxyhemoglobin ABG Sodium ABG Potassium ABG Chloride ABG Glucose VBG pH Oxyhemoglobin Carboxyhemoglobin Sodium Potassium Chloride 107.9 H Carbon Dioxide 17 L BUN 27 H Creatinine 2.5 H Glucose 144 H POC Glucose Lactic Acid 7.00 H* Calcium 6.0 L Phosphorus Magnesium Total Bilirubin 3.30 H Direct Bilirubin AST 6456 H ALT 1286 H Alkaline Phosphatase Ammonia Total Creatine Kinase C-Reactive Protein Total Protein 4.2 L Albumin 2.5 L Lipase Arterial Blood Glucose Arterial Blood Ionized Calcium Urine WBC (Auto) U Epithel Cells (Auto) Acetaminophen Complement C3 Complement C4 Syphilis IgG Antibody HSV I Specific Ab Crossmatch 07/18/20 07/18/20 07/18/20 04:23 04:23 04:23 WBC RBC Hgb Hct MCV MCH MCHC RDW Plt Count Lymph % (Auto) [place] % (Auto) Lymph # (Auto) [place] # (Auto) Eos # (Auto) Seg Neutrophils % Seg Neuts % (Manual) Lymphocytes % (Manual) Monocytes % (Manual) Nucleated RBC % Seg Neutrophils # Seg Neutrophils # Man Lymphocytes # (Manual) Monocytes # (Manual) Eosinophils # (Manual) PT 52.9 H INR 5.78 H* ABG pH POC ABG pCO2 POC ABG pO2 ABG pO2 ABG Base Excess ABG Hemoglobin ABG Oxyhemoglobin ABG Sodium ABG Potassium ABG Chloride ABG Glucose VBG pH Oxyhemoglobin Carboxyhemoglobin Sodium Potassium Chloride 110.0 H Carbon Dioxide 17 L BUN 33 H Creatinine 3.0 H Glucose 110 H POC Glucose Lactic Acid 5.40 H* Calcium 6.4 L Phosphorus Magnesium Total Bilirubin Direct Bilirubin AST ALT Alkaline Phosphatase Ammonia Total Creatine Kinase C-Reactive Protein Total Protein Albumin Lipase Arterial Blood Glucose Arterial Blood Ionized Calcium Urine WBC (Auto) U Epithel Cells (Auto) Acetaminophen Complement C3 Complement C4 Syphilis IgG Antibody HSV I Specific Ab Crossmatch 07/18/20 07/18/20 07/18/20 04:23 07:25 Unknown WBC RBC Hgb Hct MCV MCH MCHC RDW Plt Count Lymph % (Auto) [place] % (Auto) Lymph # (Auto) [place] # (Auto) Eos # (Auto) Seg Neutrophils % Seg Neuts % (Manual) Lymphocytes % (Manual) Monocytes % (Manual) Nucleated RBC % Seg Neutrophils # Seg Neutrophils # Man Lymphocytes # (Manual) Monocytes # (Manual) Eosinophils # (Manual) PT INR ABG pH POC ABG pCO2 POC ABG pO2 ABG pO2 ABG Base Excess ABG Hemoglobin ABG Oxyhemoglobin ABG Sodium ABG Potassium ABG Chloride ABG Glucose VBG pH Oxyhemoglobin Carboxyhemoglobin Sodium Potassium Chloride Carbon Dioxide BUN Creatinine Glucose POC Glucose Lactic Acid 5.50 H* 4.80 H* Calcium Phosphorus Magnesium Total Bilirubin Direct Bilirubin AST ALT Alkaline Phosphatase Ammonia 96.0 H Total Creatine Kinase C-Reactive Protein Total Protein Albumin Lipase Arterial Blood Glucose Arterial Blood Ionized Calcium Urine WBC (Auto) U Epithel Cells (Auto) Acetaminophen Complement C3 Complement C4 Syphilis IgG Antibody HSV I Specific Ab Crossmatch 07/18/20 07/18/20 07/19/20 Unknown Unknown 02:47 WBC RBC Hgb Hct MCV MCH MCHC RDW Plt Count Lymph % (Auto) [place] % (Auto) Lymph # (Auto) [place] # (Auto) Eos # (Auto) Seg Neutrophils % Seg Neuts % (Manual) Lymphocytes % (Manual) Monocytes % (Manual) Nucleated RBC % Seg Neutrophils # Seg Neutrophils # Man Lymphocytes # (Manual) Monocytes # (Manual) Eosinophils # (Manual) PT 37.3 H INR 3.73 H ABG pH POC ABG pCO2 21.1 L POC ABG pO2 61.7 L ABG pO2 ABG Base Excess ABG Hemoglobin 8.5 L ABG Oxyhemoglobin 88.1 L ABG Sodium ABG Potassium ABG Chloride 119.0 H ABG Glucose VBG pH Oxyhemoglobin Carboxyhemoglobin Sodium Potassium Chloride Carbon Dioxide BUN Creatinine Glucose POC Glucose Lactic Acid Calcium Phosphorus Magnesium Total Bilirubin 3.70 H Direct Bilirubin 3.0 H AST 2093 H ALT 822 H Alkaline Phosphatase Ammonia Total Creatine Kinase C-Reactive Protein Total Protein 4.0 L Albumin 2.5 L Lipase Arterial Blood Glucose Arterial Blood Ionized Calcium 4.0 L Urine WBC (Auto) U Epithel Cells (Auto) Acetaminophen Complement C3 Complement C4 Syphilis IgG Antibody HSV I Specific Ab Crossmatch 07/19/20 07/19/20 07/19/20 03:01 03:01 03:01 WBC 19.4 H RBC 2.50 L Hgb 8.5 L Hct 26.1 L MCV 104 H MCH 34 H MCHC RDW 22.3 H Plt Count Lymph % (Auto) 3.7 L [place] % (Auto) Lymph # (Auto) 0.7 L [place] # (Auto) 0.9 H Eos # (Auto) Seg Neutrophils % Seg Neuts % (Manual) Lymphocytes % (Manual) Monocytes % (Manual) Nucleated RBC % Seg Neutrophils # 17.7 H Seg Neutrophils # Man Lymphocytes # (Manual) Monocytes # (Manual) Eosinophils # (Manual) PT 35.0 H INR 3.45 H ABG pH POC ABG pCO2 POC ABG pO2 ABG pO2 ABG Base Excess ABG Hemoglobin ABG Oxyhemoglobin ABG Sodium ABG Potassium ABG Chloride ABG Glucose VBG pH Oxyhemoglobin Carboxyhemoglobin Sodium Potassium Chloride Carbon Dioxide BUN Creatinine Glucose POC Glucose Lactic Acid 5.90 H* Calcium Phosphorus Magnesium Total Bilirubin Direct Bilirubin AST ALT Alkaline Phosphatase Ammonia Total Creatine Kinase C-Reactive Protein Total Protein Albumin Lipase Arterial Blood Glucose Arterial Blood Ionized Calcium Urine WBC (Auto) U Epithel Cells (Auto) Acetaminophen Complement C3 Complement C4 Syphilis IgG Antibody HSV I Specific Ab Crossmatch 07/19/20 07/19/20 07/19/20 03:01 03:01 05:25 WBC RBC Hgb Hct MCV MCH MCHC RDW Plt Count Lymph % (Auto) [place] % (Auto) Lymph # (Auto) [place] # (Auto) Eos # (Auto) Seg Neutrophils % Seg Neuts % (Manual) Lymphocytes % (Manual) Monocytes % (Manual) Nucleated RBC % Seg Neutrophils # Seg Neutrophils # Man Lymphocytes # (Manual) Monocytes # (Manual) Eosinophils # (Manual) PT INR ABG pH POC ABG pCO2 POC ABG pO2 ABG pO2 ABG Base Excess ABG Hemoglobin ABG Oxyhemoglobin ABG Sodium ABG Potassium ABG Chloride ABG Glucose VBG pH Oxyhemoglobin Carboxyhemoglobin Sodium 149 H Potassium Chloride 116.6 H Carbon Dioxide 14 L BUN 48 H Creatinine 2.5 H Glucose POC Glucose 43 L Lactic Acid Calcium 7.4 L D Phosphorus Magnesium Total Bilirubin 3.70 H Direct Bilirubin AST 1730 H ALT 751 H Alkaline Phosphatase Ammonia 126.0 H Total Creatine Kinase C-Reactive Protein Total Protein 4.3 L Albumin 2.4 L Lipase Arterial Blood Glucose Arterial Blood Ionized Calcium Urine WBC (Auto) U Epithel Cells (Auto) Acetaminophen Complement C3 Complement C4 Syphilis IgG Antibody HSV I Specific Ab Crossmatch 07/19/20 07/19/20 07/19/20 05:41 05:41 05:41 WBC 15.9 H RBC 1.80 L Hgb 6.2 L Hct 19.7 L* D MCV 109 H MCH 35 H MCHC RDW 22.7 H Plt Count 99 L Lymph % (Auto) 9.7 L [place] % (Auto) 8.3 H Lymph # (Auto) [place] # (Auto) 1.3 H Eos # (Auto) Seg Neutrophils % 81.2 H Seg Neuts % (Manual) 85.0 H Lymphocytes % (Manual) 12.0 L Monocytes % (Manual) Nucleated RBC % Seg Neutrophils # 12.9 H Seg Neutrophils # Man 13.5 H Lymphocytes # (Manual) Monocytes # (Manual) Eosinophils # (Manual) PT 51.8 H INR 5.63 H* ABG pH POC ABG pCO2 POC ABG pO2 ABG pO2 ABG Base Excess ABG Hemoglobin ABG Oxyhemoglobin ABG Sodium ABG Potassium ABG Chloride ABG Glucose VBG pH Oxyhemoglobin Carboxyhemoglobin Sodium 150 H Potassium Chloride 117.6 H Carbon Dioxide 10 L BUN 50 H Creatinine 2.8 H Glucose 308 H POC Glucose Lactic Acid Calcium 6.8 L Phosphorus Magnesium Total Bilirubin 2.20 H Direct Bilirubin AST 1224 H ALT 484 H Alkaline Phosphatase Ammonia Total Creatine Kinase C-Reactive Protein Total Protein 2.8 L D Albumin 1.6 L Lipase Arterial Blood Glucose Arterial Blood Ionized Calcium Urine WBC (Auto) U Epithel Cells (Auto) Acetaminophen Complement C3 Complement C4 Syphilis IgG Antibody HSV I Specific Ab Crossmatch 07/19/20 07/19/20 07/19/20 05:41 05:41 05:53 WBC RBC Hgb Hct MCV MCH MCHC RDW Plt Count Lymph % (Auto) [place] % (Auto) Lymph # (Auto) [place] # (Auto) Eos # (Auto) Seg Neutrophils % Seg Neuts % (Manual) Lymphocytes % (Manual) Monocytes % (Manual) Nucleated RBC % Seg Neutrophils # Seg Neutrophils # Man Lymphocytes # (Manual) Monocytes # (Manual) Eosinophils # (Manual) PT INR ABG pH POC ABG pCO2 POC ABG pO2 ABG pO2 ABG Base Excess ABG Hemoglobin ABG Oxyhemoglobin ABG Sodium ABG Potassium ABG Chloride ABG Glucose VBG pH Oxyhemoglobin Carboxyhemoglobin Sodium Potassium Chloride Carbon Dioxide BUN Creatinine Glucose POC Glucose 186 H Lactic Acid 12.00 H* Calcium Phosphorus Magnesium Total Bilirubin Direct Bilirubin AST ALT Alkaline Phosphatase Ammonia 96.0 H Total Creatine Kinase C-Reactive Protein Total Protein Albumin Lipase Arterial Blood Glucose Arterial Blood Ionized Calcium Urine WBC (Auto) U Epithel Cells (Auto) Acetaminophen Complement C3 Complement C4 Syphilis IgG Antibody HSV I Specific Ab Crossmatch 07/19/20 07/19/20 07/19/20 06:14 07:35 07:35 WBC RBC Hgb Hct MCV MCH MCHC RDW Plt Count Lymph % (Auto) [place] % (Auto) Lymph # (Auto) [place] # (Auto) Eos # (Auto) Seg Neutrophils % Seg Neuts % (Manual) Lymphocytes % (Manual) Monocytes % (Manual) Nucleated RBC % Seg Neutrophils # Seg Neutrophils # Man Lymphocytes # (Manual) Monocytes # (Manual) Eosinophils # (Manual) PT INR ABG pH 6.904 L POC ABG pCO2 50.8 H POC ABG pO2 140.1 H ABG pO2 ABG Base Excess ABG Hemoglobin 7.9 L ABG Oxyhemoglobin ABG Sodium ABG Potassium ABG Chloride 120.0 H ABG Glucose 220 H VBG pH Oxyhemoglobin Carboxyhemoglobin 1.7 H Sodium Potassium Chloride Carbon Dioxide BUN Creatinine Glucose POC Glucose Lactic Acid 8.50 H* Calcium Phosphorus Magnesium Total Bilirubin Direct Bilirubin AST ALT Alkaline Phosphatase Ammonia Total Creatine Kinase C-Reactive Protein Total Protein Albumin Lipase Arterial Blood Glucose 220 H Arterial Blood Ionized Calcium 4.1 L Urine WBC (Auto) U Epithel Cells (Auto) Acetaminophen Complement C3 Complement C4 Syphilis IgG Antibody HSV I Specific Ab Crossmatch See Detail 07/19/20 07/19/20 07/19/20 12:45 22:54 Unknown WBC 26.7 H RBC 2.68 L Hgb 9.0 L Hct 26.8 L D MCV 100 H MCH 34 H MCHC RDW 20.2 H Plt Count 104 L Lymph % (Auto) [place] % (Auto) Lymph # (Auto) [place] # (Auto) Eos # (Auto) Seg Neutrophils % Seg Neuts % (Manual) Lymphocytes % (Manual) 6.0 L Monocytes % (Manual) 8.0 H Nucleated RBC % Seg Neutrophils # Seg Neutrophils # Man 17.6 H Lymphocytes # (Manual) Monocytes # (Manual) 2.1 H Eosinophils # (Manual) PT INR ABG pH POC ABG pCO2 POC ABG pO2 ABG pO2 ABG Base Excess ABG Hemoglobin ABG Oxyhemoglobin ABG Sodium ABG Potassium ABG Chloride ABG Glucose VBG pH Oxyhemoglobin Carboxyhemoglobin Sodium Potassium Chloride Carbon Dioxide BUN Creatinine Glucose POC Glucose 121 H Lactic Acid 6.20 H* Calcium Phosphorus Magnesium Total Bilirubin Direct Bilirubin AST ALT Alkaline Phosphatase Ammonia Total Creatine Kinase C-Reactive Protein Total Protein Albumin Lipase Arterial Blood Glucose Arterial Blood Ionized Calcium Urine WBC (Auto) U Epithel Cells (Auto) Acetaminophen Complement C3 Complement C4 Syphilis IgG Antibody HSV I Specific Ab Crossmatch 07/19/20 07/19/20 07/19/20 Unknown Unknown Unknown WBC RBC Hgb Hct MCV MCH MCHC RDW Plt Count Lymph % (Auto) [place] % (Auto) Lymph # (Auto) [place] # (Auto) Eos # (Auto) Seg Neutrophils % Seg Neuts % (Manual) Lymphocytes % (Manual) Monocytes % (Manual) Nucleated RBC % Seg Neutrophils # Seg Neutrophils # Man Lymphocytes # (Manual) Monocytes # (Manual) Eosinophils # (Manual) PT 33.4 H INR 3.25 H ABG pH POC ABG pCO2 POC ABG pO2 ABG pO2 ABG Base Excess ABG Hemoglobin ABG Oxyhemoglobin ABG Sodium ABG Potassium ABG Chloride ABG Glucose VBG pH Oxyhemoglobin Carboxyhemoglobin Sodium 148 H Potassium 2.6 L* D Chloride 117.3 H Carbon Dioxide 18 L D BUN 48 H Creatinine 2.4 H Glucose 207 H POC Glucose Lactic Acid 3.90 H* Calcium 6.5 L Phosphorus Magnesium Total Bilirubin 3.80 H Direct Bilirubin AST 1228 H ALT 516 H Alkaline Phosphatase Ammonia Total Creatine Kinase C-Reactive Protein Total Protein 3.6 L D Albumin 1.9 L Lipase Arterial Blood Glucose Arterial Blood Ionized Calcium Urine WBC (Auto) U Epithel Cells (Auto) Acetaminophen Complement C3 Complement C4 Syphilis IgG Antibody HSV I Specific Ab Crossmatch 07/20/20 07/20/20 07/20/20 02:41 05:04 06:39 WBC RBC Hgb Hct MCV MCH MCHC RDW Plt Count Lymph % (Auto) [place] % (Auto) Lymph # (Auto) [place] # (Auto) Eos # (Auto) Seg Neutrophils % Seg Neuts % (Manual) Lymphocytes % (Manual) Monocytes % (Manual) Nucleated RBC % Seg Neutrophils # Seg Neutrophils # Man Lymphocytes # (Manual) Monocytes # (Manual) Eosinophils # (Manual) PT INR ABG pH POC ABG pCO2 POC ABG pO2 64.7 L ABG pO2 ABG Base Excess ABG Hemoglobin 8.8 L ABG Oxyhemoglobin 91.0 L ABG Sodium ABG Potassium 2.6 L ABG Chloride 116.0 H ABG Glucose 143 H VBG pH Oxyhemoglobin Carboxyhemoglobin 2.0 H Sodium Potassium Chloride Carbon Dioxide BUN Creatinine Glucose POC Glucose 141 H 123 H Lactic Acid Calcium Phosphorus Magnesium Total Bilirubin Direct Bilirubin AST ALT Alkaline Phosphatase Ammonia Total Creatine Kinase C-Reactive Protein Total Protein Albumin Lipase Arterial Blood Glucose 143 H Arterial Blood Ionized Calcium 3.9 L Urine WBC (Auto) U Epithel Cells (Auto) Acetaminophen Complement C3 Complement C4 Syphilis IgG Antibody HSV I Specific Ab Crossmatch 07/20/20 07/20/20 07/20/20 10:42 11:07 11:07 WBC 27.7 H RBC 2.50 L Hgb 8.4 L Hct 24.4 L MCV 98 H MCH 34 H MCHC 35 H RDW 19.8 H Plt Count 78 L Lymph % (Auto) [place] % (Auto) Lymph # (Auto) [place] # (Auto) Eos # (Auto) Seg Neutrophils % Seg Neuts % (Manual) Lymphocytes % (Manual) Monocytes % (Manual) Nucleated RBC % Seg Neutrophils # Seg Neutrophils # Man Lymphocytes # (Manual) Monocytes # (Manual) Eosinophils # (Manual) PT INR ABG pH POC ABG pCO2 POC ABG pO2 113.1 H ABG pO2 ABG Base Excess ABG Hemoglobin 8.8 L ABG Oxyhemoglobin ABG Sodium ABG Potassium 2.9 L ABG Chloride 114.0 H ABG Glucose 135 H VBG pH Oxyhemoglobin Carboxyhemoglobin 1.9 H Sodium 147 H Potassium Chloride 114.2 H Carbon Dioxide BUN 52 H Creatinine 1.8 H Glucose 143 H POC Glucose Lactic Acid Calcium 6.5 L Phosphorus Magnesium Total Bilirubin Direct Bilirubin AST ALT Alkaline Phosphatase Ammonia Total Creatine Kinase C-Reactive Protein Total Protein Albumin Lipase Arterial Blood Glucose 135 H Arterial Blood Ionized Calcium 3.8 L Urine WBC (Auto) U Epithel Cells (Auto) Acetaminophen Complement C3 Complement C4 Syphilis IgG Antibody HSV I Specific Ab Crossmatch 07/20/20 07/21/20 07/21/20 15:05 00:03 02:07 WBC RBC Hgb Hct MCV MCH MCHC RDW Plt Count Lymph % (Auto) [place] % (Auto) Lymph # (Auto) [place] # (Auto) Eos # (Auto) Seg Neutrophils % Seg Neuts % (Manual) Lymphocytes % (Manual) Monocytes % (Manual) Nucleated RBC % Seg Neutrophils # Seg Neutrophils # Man Lymphocytes # (Manual) Monocytes # (Manual) Eosinophils # (Manual) PT INR ABG pH POC ABG pCO2 POC ABG pO2 ABG pO2 ABG Base Excess ABG Hemoglobin ABG Oxyhemoglobin ABG Sodium ABG Potassium ABG Chloride ABG Glucose VBG pH Oxyhemoglobin Carboxyhemoglobin Sodium 146 H Potassium 2.8 L* 3.1 L Chloride 112.1 H Carbon Dioxide BUN 54 H Creatinine 1.9 H Glucose 107 H POC Glucose 145 H Lactic Acid Calcium 6.8 L Phosphorus Magnesium 0.90 L* Total Bilirubin Direct Bilirubin AST ALT Alkaline Phosphatase Ammonia Total Creatine Kinase C-Reactive Protein Total Protein Albumin Lipase Arterial Blood Glucose Arterial Blood Ionized Calcium Urine WBC (Auto) U Epithel Cells (Auto) Acetaminophen Complement C3 Complement C4 Syphilis IgG Antibody HSV I Specific Ab Crossmatch 07/21/20 07/21/20 07/21/20 03:42 05:21 10:59 WBC RBC Hgb Hct MCV MCH MCHC RDW Plt Count Lymph % (Auto) [place] % (Auto) Lymph # (Auto) [place] # (Auto) Eos # (Auto) Seg Neutrophils % Seg Neuts % (Manual) Lymphocytes % (Manual) Monocytes % (Manual) Nucleated RBC % Seg Neutrophils # Seg Neutrophils # Man Lymphocytes # (Manual) Monocytes # (Manual) Eosinophils # (Manual) PT INR ABG pH POC ABG pCO2 POC ABG pO2 ABG pO2 98.2 H ABG Base Excess -3.8 L ABG Hemoglobin 8.7 L ABG Oxyhemoglobin ABG Sodium ABG Potassium ABG Chloride ABG Glucose VBG pH Oxyhemoglobin 94.6 L Carboxyhemoglobin Sodium Potassium Chloride Carbon Dioxide BUN Creatinine Glucose POC Glucose 150 H 161 H Lactic Acid Calcium Phosphorus Magnesium Total Bilirubin Direct Bilirubin AST ALT Alkaline Phosphatase Ammonia Total Creatine Kinase C-Reactive Protein Total Protein Albumin Lipase Arterial Blood Glucose Arterial Blood Ionized Calcium Urine WBC (Auto) U Epithel Cells (Auto) Acetaminophen Complement C3 Complement C4 Syphilis IgG Antibody HSV I Specific Ab Crossmatch 07/21/20 07/21/20 07/21/20 13:59 16:14 17:22 WBC RBC Hgb Hct MCV MCH MCHC RDW Plt Count Lymph % (Auto) [place] % (Auto) Lymph # (Auto) [place] # (Auto) Eos # (Auto) Seg Neutrophils % Seg Neuts % (Manual) Lymphocytes % (Manual) Monocytes % (Manual) Nucleated RBC % Seg Neutrophils # Seg Neutrophils # Man Lymphocytes # (Manual) Monocytes # (Manual) Eosinophils # (Manual) PT INR ABG pH POC ABG pCO2 POC ABG pO2 ABG pO2 ABG Base Excess ABG Hemoglobin ABG Oxyhemoglobin ABG Sodium ABG Potassium ABG Chloride ABG Glucose VBG pH Oxyhemoglobin Carboxyhemoglobin Sodium Potassium 3.0 L Chloride 112.5 H Carbon Dioxide 16 L D BUN 48 H Creatinine Glucose 157 H POC Glucose 164 H 171 H Lactic Acid Calcium 7.3 L Phosphorus Magnesium Total Bilirubin Direct Bilirubin AST ALT Alkaline Phosphatase Ammonia Total Creatine Kinase C-Reactive Protein Total Protein Albumin Lipase Arterial Blood Glucose Arterial Blood Ionized Calcium Urine WBC (Auto) U Epithel Cells (Auto) Acetaminophen Complement C3 Complement C4 Syphilis IgG Antibody HSV I Specific Ab Crossmatch 07/21/20 07/22/2007/22/20 20:06 04:25 07:57 WBC 28.9 H RBC 2.35 L Hgb 8.0 L Hct 22.2 L MCV MCH 34 H MCHC 36 H RDW 20.5 H Plt Count 41 L Lymph % (Auto) [place] % (Auto) Lymph # (Auto) [place] # (Auto) Eos # (Auto) Seg Neutrophils % Seg Neuts % (Manual) 83.0 H Lymphocytes % (Manual) 6.0 L Monocytes % (Manual) Nucleated RBC % 2.0 H Seg Neutrophils # Seg Neutrophils # Man 24.0 H Lymphocytes # (Manual) Monocytes # (Manual) 1.4 H Eosinophils # (Manual) 0.6 H PT INR ABG pH 7.500 H POC ABG pCO2 POC ABG pO2 ABG pO2 104.9 H ABG Base Excess ABG Hemoglobin 8.6 L ABG Oxyhemoglobin ABG Sodium ABG Potassium ABG Chloride ABG Glucose VBG pH Oxyhemoglobin Carboxyhemoglobin Sodium Potassium Chloride Carbon Dioxide BUN Creatinine Glucose POC Glucose 128 H Lactic Acid Calcium Phosphorus Magnesium Total Bilirubin Direct Bilirubin AST ALT Alkaline Phosphatase Ammonia Total Creatine Kinase C-Reactive Protein Total Protein Albumin Lipase Arterial Blood Glucose Arterial Blood Ionized Calcium Urine WBC (Auto) U Epithel Cells (Auto) Acetaminophen Complement C3 Complement C4 Syphilis IgG Antibody HSV I Specific Ab Crossmatch 07/22/20 07/22/20 07/22/20 07:57 07:57 12:08 WBC RBC Hgb Hct MCV MCH MCHC RDW Plt Count Lymph % (Auto) [place] % (Auto) Lymph # (Auto) [place] # (Auto) Eos # (Auto) Seg Neutrophils % Seg Neuts % (Manual) Lymphocytes % (Manual) Monocytes % (Manual) Nucleated RBC % Seg Neutrophils # Seg Neutrophils # Man Lymphocytes # (Manual) Monocytes # (Manual) Eosinophils # (Manual) PT 21.6 H INR 1.87 H ABG pH POC ABG pCO2 POC ABG pO2 ABG pO2 ABG Base Excess ABG Hemoglobin ABG Oxyhemoglobin ABG Sodium ABG Potassium ABG Chloride ABG Glucose VBG pH Oxyhemoglobin Carboxyhemoglobin Sodium 147 H D Potassium 2.6 L* Chloride 112.7 H Carbon Dioxide BUN 51 H Creatinine Glucose 104 H POC Glucose Lactic Acid Calcium 7.8 L Phosphorus 1.10 L Magnesium 1.50 L Total Bilirubin 9.80 H 11.10 H Direct Bilirubin 8.8 H AST 234 H 231 H ALT 297 H 286 H Alkaline Phosphatase 296 H 323 H Ammonia Total Creatine Kinase C-Reactive Protein Total Protein 4.1 L 3.6 L Albumin 1.8 L 2.0 L Lipase Arterial Blood Glucose Arterial Blood Ionized Calcium Urine WBC (Auto) U Epithel Cells (Auto) Acetaminophen Complement C3 Complement C4 Syphilis IgG Antibody HSV I Specific Ab Crossmatch 07/23/20 07/23/20 07/23/20 01:53 02:51 07:38 WBC RBC Hgb Hct MCV MCH MCHC RDW Plt Count Lymph % (Auto) [place] % (Auto) Lymph # (Auto) [place] # (Auto) Eos # (Auto) Seg Neutrophils % Seg Neuts % (Manual) Lymphocytes % (Manual) Monocytes % (Manual) Nucleated RBC % Seg Neutrophils # Seg Neutrophils # Man Lymphocytes # (Manual) Monocytes # (Manual) Eosinophils # (Manual) PT INR ABG pH 7.313 L POC ABG pCO2 POC ABG pO2 67.0 L ABG pO2 ABG Base Excess ABG Hemoglobin ABG Oxyhemoglobin ABG Sodium ABG Potassium 3.2 L ABG Chloride 115.0 H ABG Glucose VBG pH Oxyhemoglobin Carboxyhemoglobin Sodium Potassium Chloride Carbon Dioxide BUN Creatinine Glucose POC Glucose 64 L 62 L Lactic Acid Calcium Phosphorus Magnesium Total Bilirubin Direct Bilirubin AST ALT Alkaline Phosphatase Ammonia Total Creatine Kinase C-Reactive Protein Total Protein Albumin Lipase Arterial Blood Glucose Arterial Blood Ionized Calcium 4.3 L Urine WBC (Auto) U Epithel Cells (Auto) Acetaminophen Complement C3 Complement C4 Syphilis IgG Antibody HSV I Specific Ab Crossmatch 07/23/20 07/23/20 07/23/20 07:39 07:39 23:52 WBC 37.0 H RBC 2.30 L Hgb 7.8 L Hct 22.5 L MCV 98 H MCH 34 H MCHC 35 H RDW 21.3 H Plt Count 55 L Lymph % (Auto) [place] % (Auto) Lymph # (Auto) [place] # (Auto) Eos # (Auto) Seg Neutrophils % Seg Neuts % (Manual) 78.0 H Lymphocytes % (Manual) 10.0 L Monocytes % (Manual) Nucleated RBC % 3.0 H Seg Neutrophils # Seg Neutrophils # Man 28.9 H Lymphocytes # (Manual) Monocytes # (Manual) 1.1 H Eosinophils # (Manual) 0.7 H PT INR ABG pH POC ABG pCO2 POC ABG pO2 ABG pO2 ABG Base Excess ABG Hemoglobin ABG Oxyhemoglobin ABG Sodium ABG Potassium ABG Chloride ABG Glucose VBG pH Oxyhemoglobin Carboxyhemoglobin Sodium 148 H Potassium Chloride 114.0 H Carbon Dioxide BUN 59 H Creatinine 1.5 H Glucose POC Glucose Lactic Acid Calcium 7.7 L Phosphorus 4.60 H D Magnesium Total Bilirubin 11.20 H Direct Bilirubin AST 245 H ALT 242 H Alkaline Phosphatase 423 H Ammonia Total Creatine Kinase C-Reactive Protein 17.20 H Total Protein 4.3 L Albumin 1.8 L Lipase Arterial Blood Glucose Arterial Blood Ionized Calcium Urine WBC (Auto) U Epithel Cells (Auto) Acetaminophen Complement C3 Complement C4 Syphilis IgG Antibody HSV I Specific Ab Crossmatch 07/23/20 07/23/20 07/23/20 23:52 23:52 Unknown WBC RBC Hgb Hct MCV MCH MCHC RDW Plt Count Lymph % (Auto) [place] % (Auto) Lymph # (Auto) [place] # (Auto) Eos # (Auto) Seg Neutrophils % Seg Neuts % (Manual) Lymphocytes % (Manual) Monocytes % (Manual) Nucleated RBC % Seg Neutrophils # Seg Neutrophils # Man Lymphocytes # (Manual) Monocytes # (Manual) Eosinophils # (Manual) PT INR ABG pH POC ABG pCO2 POC ABG pO2 ABG pO2 ABG Base Excess ABG Hemoglobin ABG Oxyhemoglobin ABG Sodium ABG Potassium ABG Chloride ABG Glucose VBG pH Oxyhemoglobin Carboxyhemoglobin Sodium Potassium Chloride Carbon Dioxide BUN Creatinine Glucose POC Glucose Lactic Acid Calcium Phosphorus Magnesium Total Bilirubin Direct Bilirubin AST ALT Alkaline Phosphatase Ammonia Total Creatine Kinase C-Reactive Protein Total Protein Albumin Lipase Arterial Blood Glucose Arterial Blood Ionized Calcium Urine WBC (Auto) 102.0 H U Epithel Cells (Auto) Acetaminophen Complement C3 55 L Complement C4 11 L Syphilis IgG Antibody HSV I Specific Ab Crossmatch 07/24/20 07/24/20 07/24/20 03:39 10:14 10:14 WBC RBC Hgb Hct MCV MCH MCHC RDW Plt Count Lymph % (Auto) [place] % (Auto) Lymph # (Auto) [place] # (Auto) Eos # (Auto) Seg Neutrophils % Seg Neuts % (Manual) Lymphocytes % (Manual) Monocytes % (Manual) Nucleated RBC % Seg Neutrophils # Seg Neutrophils # Man Lymphocytes # (Manual) Monocytes # (Manual) Eosinophils # (Manual) PT INR ABG pH POC ABG pCO2 POC ABG pO2 147.8 H ABG pO2 ABG Base Excess ABG Hemoglobin 5.5 L ABG Oxyhemoglobin ABG Sodium ABG Potassium 3.0 L ABG Chloride 117.0 H ABG Glucose VBG pH Oxyhemoglobin Carboxyhemoglobin Sodium 150 H Potassium 2.6 L* D Chloride 117.1 H Carbon Dioxide BUN 48 H Creatinine Glucose POC Glucose Lactic Acid Calcium 8.2 L Phosphorus 2.30 L D Magnesium 1.50 L Total Bilirubin Direct Bilirubin AST ALT Alkaline Phosphatase Ammonia Total Creatine Kinase C-Reactive Protein Total Protein Albumin Lipase Arterial Blood Glucose Arterial Blood Ionized Calcium Urine WBC (Auto) U Epithel Cells (Auto) Acetaminophen Complement C3 Complement C4 Syphilis IgG Antibody HSV I Specific Ab Crossmatch 07/24/20 07/24/20 07/24/20 10:14 10:14 21:31 WBC RBC Hgb Hct MCV MCH MCHC RDW Plt Count Lymph % (Auto) [place] % (Auto) Lymph # (Auto) [place] # (Auto) Eos # (Auto) Seg Neutrophils % Seg Neuts % (Manual) Lymphocytes % (Manual) Monocytes % (Manual) Nucleated RBC % Seg Neutrophils # Seg Neutrophils # Man Lymphocytes # (Manual) Monocytes # (Manual) Eosinophils # (Manual) PT 22.7 H INR 1.99 H ABG pH POC ABG pCO2 POC ABG pO2 ABG pO2 ABG Base Excess ABG Hemoglobin ABG Oxyhemoglobin ABG Sodium ABG Potassium ABG Chloride ABG Glucose VBG pH Oxyhemoglobin Carboxyhemoglobin Sodium Potassium Chloride Carbon Dioxide BUN Creatinine Glucose POC Glucose 59 L Lactic Acid Calcium Phosphorus Magnesium Total Bilirubin 10.30 H Direct Bilirubin 7.8 H AST 144 H ALT 129 H Alkaline Phosphatase 308 H Ammonia Total Creatine Kinase C-Reactive Protein Total Protein 4.2 L Albumin 2.4 L Lipase Arterial Blood Glucose Arterial Blood Ionized Calcium Urine WBC (Auto) U Epithel Cells (Auto) Acetaminophen Complement C3 Complement C4 Syphilis IgG Antibody HSV I Specific Ab Crossmatch 07/25/20 07/25/20 07/25/20 05:19 05:20 08:38 WBC RBC Hgb Hct MCV MCH MCHC RDW Plt Count Lymph % (Auto) [place] % (Auto) Lymph # (Auto) [place] # (Auto) Eos # (Auto) Seg Neutrophils % Seg Neuts % (Manual) Lymphocytes % (Manual) Monocytes % (Manual) Nucleated RBC % Seg Neutrophils # Seg Neutrophils # Man Lymphocytes # (Manual) Monocytes # (Manual) Eosinophils # (Manual) PT INR ABG pH 7.458 H POC ABG pCO2 POC ABG pO2 77.5 L ABG pO2 ABG Base Excess ABG Hemoglobin 8.5 L ABG Oxyhemoglobin 93.9 L ABG Sodium 147.8 H ABG Potassium 2.9 L ABG Chloride 118.0 H ABG Glucose VBG pH Oxyhemoglobin Carboxyhemoglobin 2.1 H Sodium Potassium Chloride Carbon Dioxide BUN Creatinine Glucose POC Glucose 55 L 107 H Lactic Acid Calcium Phosphorus Magnesium Total Bilirubin Direct Bilirubin AST ALT Alkaline Phosphatase Ammonia Total Creatine Kinase C-Reactive Protein Total Protein Albumin Lipase Arterial Blood Glucose Arterial Blood Ionized Calcium Urine WBC (Auto) U Epithel Cells (Auto) Acetaminophen Complement C3 Complement C4 Syphilis IgG Antibody HSV I Specific Ab Crossmatch 07/25/20 07/25/20 07/25/20 09:53 09:53 21:54 WBC RBC Hgb Hct MCV MCH MCHC RDW Plt Count Lymph % (Auto) [place] % (Auto) Lymph # (Auto) [place] # (Auto) Eos # (Auto) Seg Neutrophils % Seg Neuts % (Manual) Lymphocytes % (Manual) Monocytes % (Manual) Nucleated RBC % Seg Neutrophils # Seg Neutrophils # Man Lymphocytes # (Manual) Monocytes # (Manual) Eosinophils # (Manual) PT 22.3 H INR 1.94 H ABG pH POC ABG pCO2 POC ABG pO2 ABG pO2 ABG Base Excess ABG Hemoglobin ABG Oxyhemoglobin ABG Sodium ABG Potassium ABG Chloride ABG Glucose VBG pH Oxyhemoglobin Carboxyhemoglobin Sodium 154 H Potassium 2.8 L* Chloride 121.5 H Carbon Dioxide BUN 47 H Creatinine Glucose POC Glucose 112 H Lactic Acid Calcium Phosphorus Magnesium Total Bilirubin 11.60 H Direct Bilirubin AST 141 H ALT 115 H Alkaline Phosphatase 355 H Ammonia Total Creatine Kinase C-Reactive Protein Total Protein 4.3 L Albumin 2.2 L Lipase Arterial Blood Glucose Arterial Blood Ionized Calcium Urine WBC (Auto) U Epithel Cells (Auto) Acetaminophen Complement C3 Complement C4 Syphilis IgG Antibody HSV I Specific Ab Crossmatch 07/26/20 07/26/20 07/26/20 01:54 05:38 07:48 WBC RBC Hgb Hct MCV MCH MCHC RDW Plt Count Lymph % (Auto) [place] % (Auto) Lymph # (Auto) [place] # (Auto) Eos # (Auto) Seg Neutrophils % Seg Neuts % (Manual) Lymphocytes % (Manual) Monocytes % (Manual) Nucleated RBC % Seg Neutrophils # Seg Neutrophils # Man Lymphocytes # (Manual) Monocytes # (Manual) Eosinophils # (Manual) PT INR ABG pH POC ABG pCO2 POC ABG pO2 ABG pO2 ABG Base Excess ABG Hemoglobin ABG Oxyhemoglobin ABG Sodium ABG Potassium ABG Chloride ABG Glucose VBG pH Oxyhemoglobin Carboxyhemoglobin Sodium Potassium Chloride Carbon Dioxide BUN Creatinine Glucose POC Glucose 130 H 155 H 155 H Lactic Acid Calcium Phosphorus Magnesium Total Bilirubin Direct Bilirubin AST ALT Alkaline Phosphatase Ammonia Total Creatine Kinase C-Reactive Protein Total Protein Albumin Lipase Arterial Blood Glucose Arterial Blood Ionized Calcium Urine WBC (Auto) U Epithel Cells (Auto) Acetaminophen Complement C3 Complement C4 Syphilis IgG Antibody HSV I Specific Ab Crossmatch 07/26/20 07/26/20 07/26/20 11:31 14:47 14:47 WBC RBC Hgb Hct MCV MCH MCHC RDW Plt Count Lymph % (Auto) [place] % (Auto) Lymph # (Auto) [place] # (Auto) Eos # (Auto) Seg Neutrophils % Seg Neuts % (Manual) Lymphocytes % (Manual) Monocytes % (Manual) Nucleated RBC % Seg Neutrophils # Seg Neutrophils # Man Lymphocytes # (Manual) Monocytes # (Manual) Eosinophils # (Manual) PT 21.2 H INR 1.83 H ABG pH POC ABG pCO2 POC ABG pO2 ABG pO2 ABG Base Excess ABG Hemoglobin ABG Oxyhemoglobin ABG Sodium ABG Potassium ABG Chloride ABG Glucose VBG pH Oxyhemoglobin Carboxyhemoglobin Sodium 148 H Potassium 3.4 L D Chloride 118.2 H Carbon Dioxide BUN 42 H Creatinine Glucose 177 H POC Glucose 147 H Lactic Acid Calcium Phosphorus Magnesium Total Bilirubin Direct Bilirubin AST ALT Alkaline Phosphatase Ammonia Total Creatine Kinase C-Reactive Protein Total Protein Albumin Lipase Arterial Blood Glucose Arterial Blood Ionized Calcium Urine WBC (Auto) U Epithel Cells (Auto) Acetaminophen Complement C3 Complement C4 Syphilis IgG Antibody HSV I Specific Ab Crossmatch 07/26/20 14:47 WBC RBC Hgb Hct MCV MCH MCHC RDW Plt Count Lymph % (Auto) [place] % (Auto) Lymph # (Auto) [place] # (Auto) Eos # (Auto) Seg Neutrophils % Seg Neuts % (Manual) Lymphocytes % (Manual) Monocytes % (Manual) Nucleated RBC % Seg Neutrophils # Seg Neutrophils # Man Lymphocytes # (Manual) Monocytes # (Manual) Eosinophils # (Manual) PT INR ABG pH POC ABG pCO2 POC ABG pO2 ABG pO2 ABG Base Excess ABG Hemoglobin ABG Oxyhemoglobin ABG Sodium ABG Potassium ABG Chloride ABG Glucose VBG pH Oxyhemoglobin Carboxyhemoglobin Sodium Potassium Chloride Carbon Dioxide BUN Creatinine Glucose POC Glucose Lactic Acid Calcium Phosphorus Magnesium Total Bilirubin 11.30 H Direct Bilirubin 8.6 H AST 139 H ALT 109 H Alkaline Phosphatase 368 H Ammonia Total Creatine Kinase C-Reactive Protein Total Protein 4.1 L Albumin 2.3 L Lipase Arterial Blood Glucose Arterial Blood Ionized Calcium Urine WBC (Auto) U Epithel Cells (Auto) Acetaminophen Complement C3 Complement C4 Syphilis IgG Antibody HSV I Specific Ab Crossmatch
--- NOTE | 2020-07-26 16:07 | Progress Note ---
Assessment and Plan Acute kidney injury possibly due to Hepatorenal Syndrome vs Ischemic ATN due to Septics Shock: Hypotension Septic Shock Metabolic Acidosis Hypernatremia Acute Liver Failure Nausea and vomiting UTI ? Syphilis Plan: -Labs reviewed, most recent serum Na level was 148 today, yesterday's serum Na level was 154 and was kept higher in the setting of cerebral edema and avoiding hyponatremia. -Neurology evaluated pt, MRI Brain ordered, follow up recs -Follow up family decision and goals of care -RINA resolved -Replete potassium -On pressors -On D10 infusion at 50 ml/hr for hypoglycemia -S/p Albumin -Monitor I/O's daily -Kenney Catheter: Yes -Intake= 2088 ml Output= 1215 ml (Net= 873 ml) -Renal plan d/w Dr Thapa Subjective Date of service: 07/26/20 Principal diagnosis: Acute Liver Injury Interval history: Pt seen in ICU intubated on ventilator, pt remains on pressors Objective - Vital Signs Vital signs: Vital Signs - 12hr 07/26/20 07/26/20 07/26/20 04:16 04:30 04:46 Temperature Pulse Rate 61 61 60 Pulse Rate [ 61 From Monitor] Respiratory 18 18 18 Rate Blood Pressure 122/80 122/80 100/45 O2 Sat by Pulse 96 95 93 Oximetry 07/26/20 07/26/20 07/26/20 05:00 05:16 05:30 Temperature Pulse Rate 57 L 57 L 57 L Pulse Rate [ From Monitor] Respiratory 18 18 18 Rate Blood Pressure 100/45 94/40 94/40 O2 Sat by Pulse 92 92 100 Oximetry 07/26/20 07/26/20 07/26/20 05:46 06:00 06:15 Temperature Pulse Rate 56 L 56 L 57 L Pulse Rate [ From Monitor] Respiratory 18 18 18 Rate Blood Pressure 93/44 96/40 100/63 O2 Sat by Pulse 92 94 96 Oximetry 07/26/20 07/26/20 07/26/20 06:30 06:46 07:00 Temperature Pulse Rate 60 57 L 65 Pulse Rate [ From Monitor] Respiratory 18 18 18 Rate Blood Pressure 100/63 100/63 87/46 O2 Sat by Pulse 97 93 98 Oximetry 07/26/20 07/26/20 07/26/20 07:16 07:30 07:45 Temperature Pulse Rate 59 L 59 L 58 L Pulse Rate [ From Monitor] Respiratory 18 18 18 Rate Blood Pressure 182/116 182/116 121/91 O2 Sat by Pulse 95 94 95 Oximetry 07/26/20 07/26/20 07/26/20 08:00 08:16 08:30 Temperature 97.4 F L Pulse Rate 56 L 56 L 60 Pulse Rate [ 60 From Monitor] Respiratory 18 18 18 Rate Blood Pressure 126/85 99/60 99/60 O2 Sat by Pulse 95 93 96 Oximetry 07/26/20 07/26/20 07/26/20 08:46 09:00 09:16 Temperature Pulse Rate 58 L 57 L 56 L Pulse Rate [ From Monitor] Respiratory 18 17 18 Rate Blood Pressure 119/78 117/73 106/58 O2 Sat by Pulse 95 94 94 Oximetry 07/26/20 07/26/20 07/26/20 09:30 09:35 09:46 Temperature Pulse Rate 55 L 54 L 54 L Pulse Rate [ From Monitor] Respiratory 18 18 Rate Blood Pressure 106/55 110/67 106/55 O2 Sat by Pulse 95 95 94 Oximetry 07/26/20 07/26/20 07/26/20 10:00 10:16 10:30 Temperature Pulse Rate 57 L 55 L 56 L Pulse Rate [ From Monitor] Respiratory 18 18 18 Rate Blood Pressure 124/82 101/64 107/73 O2 Sat by Pulse 96 95 95 Oximetry 07/26/20 07/26/20 07/26/20 10:45 11:00 11:16 Temperature Pulse Rate 55 L 54 L 53 L Pulse Rate [ From Monitor] Respiratory 18 18 18 Rate Blood Pressure 110/67 109/71 104/65 O2 Sat by Pulse 94 95 94 Oximetry 07/26/20 07/26/20 07/26/20 11:30 11:45 12:00 Temperature 97.4 F L Pulse Rate 53 L 54 L 54 L Pulse Rate [ 50 L From Monitor] Respiratory 18 18 18 Rate Blood Pressure 110/69 111/70 112/72 O2 Sat by Pulse 94 94 95 Oximetry 07/26/20 07/26/20 07/26/20 12:15 12:30 12:45 Temperature Pulse Rate 54 L 53 L 54 L Pulse Rate [ From Monitor] Respiratory 18 18 18 Rate Blood Pressure 112/73 115/72 112/72 O2 Sat by Pulse 95 95 95 Oximetry 07/26/20 07/26/20 07/26/20 13:00 13:15 13:30 Temperature Pulse Rate 54 L 53 L 53 L Pulse Rate [ From Monitor] Respiratory 18 18 18 Rate Blood Pressure 113/74 115/74 111/73 O2 Sat by Pulse 95 95 95 Oximetry 07/26/20 07/26/20 07/26/20 13:45 14:00 14:16 Temperature Pulse Rate 54 L 53 L 53 L Pulse Rate [ From Monitor] Respiratory 18 18 18 Rate Blood Pressure 115/73 110/70 112/71 O2 Sat by Pulse 95 94 95 Oximetry 07/26/20 07/26/20 14:25 14:30 Temperature Pulse Rate 52 L 55 L Pulse Rate [ From Monitor] Respiratory 17 Rate Blood Pressure 113/75 112/71 O2 Sat by Pulse 94 95 Oximetry - General Appearance General appearance: intubated EENT: ATNC Respiratory: Present: Other (Lung sounds decreased bilaterally, intubated) Cardiology: S1S2 Gastrointestinal: other (soft, orogastric tube intact) Integumentary: warm and dry Neurologic: other (intubated) Musculoskeletal: other (1+ edema to BLE) Psychiatric: other - Lab 07/23/20 07:39 07/26/20 14:47 Most recent lab results ABG pH 7.458 (7.320-7.450) H 07/25/20 05:20 ABG pCO2 31.2 mm Hg 07/22/20 04:25 ABG pO2 104.9 mm Hg (80.0-90.0) H 07/22/20 04:25 ABG HCO3 23.7 mmol/L (20.0-26.0) 07/22/20 04:25 ABG O2 Saturation 98.1 % (95.0-99.0) 07/22/20 04:25 Calcium 8.5 mg/dL (8.4-10.2) 07/26/20 14:47 Phosphorus 2.30 mg/dL (2.5-4.5) L D 07/24/20 10:14 Magnesium 1.70 mg/dL (1.7-2.3) 07/25/20 09:53 Medications & Allergies - Medications Allergies/Adverse Reactions: Allergies No Known Allergies Allergy (Verified 07/16/20 22:03) Home Medications: Home Medications Medication Instructions Recorded Confirmed Last Taken Type No Known Home Medications [No 07/17/20 07/17/20 Unknown History Reported Home Medications] Active Medications: Generic Name Dose Route Start Last Admin Trade Name Freq PRN Reason Stop Dose Admin Acetaminophen 650 mg 07/23/20 00:37 07/23/20 01:05 Acetaminophen 325 Mg/10.15 Ml Oral Liqd Unit Dose FEEDTUBE 650 mg Q6H PRN Administration Fever >101 Lipase/Protease/Amylase 1 each 07/23/20 08:37 Lipase 10,500/Protease 25,000/Amylase 43,750 (Units) Dr Sher FEEDTUBE PRN PRN For Clogged Feeding Tube Hydrocortisone Sodium Succinate 100 mg 07/25/20 12:00 07/26/20 04:32 Hydrocortisone Sod Succ 100 Mg/2 Ml Vial IV 100 mg Q8H ESTELA Administration Acyclovir 370 mg/ Sodium 107.4 mls @ 100 mls/hr 07/17/20 12:00 07/25/20 21:27 Chloride IV 100 mls/hr Q12HR ESTELA Administration Protocol Thiamine HCl 100 mg/ Sodium 51 mls @ 100 mls/hr 07/18/20 10:00 07/25/20 14:34 Chloride IV 100 mls/hr QDAY ESTELA Administration Folic Acid 1 mg/ Sodium 50.2 mls @ 200.8 mls/hr 07/18/20 10:00 07/25/20 14:34 Chloride IV 200.8 mls/hr QDAY ESTELA Administration Vasopressin 20 unit/ Sodium 101 mls @ 9.09 mls/hr 07/19/20 10:00 07/26/20 09:43 Chloride IV 0.03 units/min TITR ESTELA 9.09 mls/hr Administration Protocol 0.03 UNITS/MIN Norepinephrine 8 mg/ Sodium 250 mls @ 3.75 mls/hr 07/19/20 21:00 07/26/20 14:38 Chloride IV 0 mcg/min TITR ESTELA 0 mls/hr Titration Protocol 2 MCG/MIN Dextrose 1,000 mls @ 50 mls/hr 07/25/20 09:00 07/26/20 09:46 D10w IV 50 mls/hr DIRECT ESTELA Administration Magnesium Hydroxide 30 ml 07/17/20 03:56 Magnesium Hydroxide (Mom) Oral Liqd Udc PO Q4H PRN Constipation Ondansetron HCl 4 mg 07/17/20 03:56 07/18/20 20:00 Ondansetron 4 Mg/2 Ml Inj IV 4 mg Q8H PRN Administration Nausea And Vomiting Pantoprazole Sodium 40 mg 07/24/20 10:00 07/26/20 09:47 Pantoprazole 40 Mg Inj IV 40 mg BID ESTELA Administration Simple Syrup 15 ml 07/23/20 08:37 Simple Syrup 15 Ml FEEDTUBE PRN PRN Hypoglycemia Simple Syrup 30 ml 07/23/20 08:37 Simple Syrup 15 Ml FEEDTUBE PRN PRN Hypoglycemia Sodium Bicarbonate 325 mg 07/23/20 08:37 Sodium Bicarbonate 325 Mg Tab FEEDTUBE PRN PRN For Clogged Feeding Tube Sodium Chloride 10 ml 07/17/20 10:00 07/26/20 09:47 Sodium Chloride 0.9% 10 Ml Flush Syringe IV 10 ml BID ESTELA Administration Sodium Chloride 10 ml 07/17/20 03:56 Sodium Chloride 0.9% 10 Ml Flush Syringe IV PRN PRN LINE FLUSH
[2020-07-26] MEDS: ACYCLOVIR IV SCH (17:16)
[2020-07-26] MEDS: SODIUM CHLORIDE 0.9% IV SCH (17:16)
[2020-07-26] MEDS: FOLIC ACID 1 MG in SODIUM CHLORIDE 0.9% 50 ML IV SCH (18:07)
[2020-07-26] MEDS: THIAMINE 100 MG in SODIUM CHLORIDE 0.9% 50 ML IV SCH (18:07)
--- NOTE | 2020-07-26 22:39 | Progress Note ---
Assessment and Plan The high probability of a clinically significant, sudden or life threatening deterioration of the [neuro, cardiac, renal, pulmonary] system(s) required my full and direct attention, intervention and personal management. The aggregate critical care time was [35] minutes. This time is in addition to time spent performing reported procedures but includes the following: [x] Data Review and interpretation [x] Patient assessment and monitoring of vital signs [x] Documentation [x] Medication orders and management - Patient Problems (1) Severe sepsis with septic shock Current Visit: Yes Status: Acute Plan to address problem: Sepsis protocol, IV pressor support, IV antibiotic therapy, IV fluid resuscitation therapy, maintain mean arterial pressure greater than or equal to 65, monitor urine output every shift, serial lactic acid level (2) Acute respiratory failure Current Visit: Yes Status: Acute Qualifiers: Respiratory failure complication: hypoxia Qualified Code(s): J96.01 - Acute respiratory failure with hypoxia Plan to address problem: Patient intubated and placed on ventilatory support overnight. Wean vent as tolerated, pulmonary team consulted, spontaneous breathing trial daily, sedation holiday, supportive care. (3) Acute liver failure Current Visit: Yes Status: Acute Plan to address problem: Supportive care, GI team consulted. Pt has poor prognosis, and currently unstable for transfer. (4) Metabolic acidosis Current Visit: Yes Status: Acute Plan to address problem: BMP, IV bicarbonate therapy, repeat BMP (5) UTI (urinary tract infection) Current Visit: Yes Status: Acute Qualifiers: Encounter type: initial encounter Plan to address problem: IV antibiotic therapy, supportive care. (6) DVT prophylaxis Current Visit: Yes Status: Acute Plan to address problem: SCD to bilateral lower extremities while in bed (7) Acute kidney injury (RINA) with acute tubular necrosis (ATN) Current Visit: Yes Status: Acute Plan to address problem: Nephrology team consulted, IV fluid resuscitation therapy, monitor urine output every shift, monitor fluid balance, supportive care. (8) Cardiac arrest Current Visit: Yes Status: Acute Plan to address problem: Patient experienced cardiac arrest overnight. Patient treated with ACLS protocol with eventual return of perfusing cardiac rhythm. Patient has poor prognosis. (9) Toxic metabolic encephalopathy Current Visit: Yes Status: Acute Plan to address problem: CT scan head, when medically stable, supportive care, continue medical management. Suspect anoxic brain injury. (10) Advance care planning Current Visit: Yes Status: Acute Plan to address problem: Disease education conducted, patient is full code, patient prognosis discussed with patient mother Tete Gao as well as patient xiomara today., patient family informed the patient shows no sign of brain function and is on multiple medications to maintain her current status. Patient family informed that patient has experienced nonsurvivable physiologic insult and has suffered anoxic brain injury. Patient family acknowledges prognosis but declines to make decision for gait regarding withdrawal of care due to patient's 5 children and that the need for necessary arrangements to be made for the care of the children. Awaiting decision on withdrawal of care. . Patient family informed of care plan. +60 minutes. Subjective Date of service: 07/26/20 Principal diagnosis: Acute Liver Injury Interval history: History Interval history: 29 YO Female HD #9 with Severe Sepsis complicated by Shock, Fulminant Hepatic Failure, ETOH Dependence, RINA with ATN, Toxic Metabolic Encephalopathy, Elevated INR, Metabolic Acidosis, Acute Respiratory Failure S/P Cardiac Arrest, Anoxic Brain Injury. Patient is critically ill and has very poor prognosis. Patient currently intubated and on ventilatory support. Patient has poor prognosis. No significant overnight improvement. Patient prognosis discussed again with patient mother and xiomara. Patient family acknowledges understanding patient condition and prognosis. Objective - Exam Narrative Exam: Patient intubated - Constitutional Vitals: Vital Signs - 12hr 07/26/20 07/26/20 07/26/20 10:45 11:00 11:16 Temperature Pulse Rate 55 L 54 L 53 L Pulse Rate [ From Monitor] Respiratory 18 18 18 Rate Blood Pressure 110/67 109/71 104/65 O2 Sat by Pulse 94 95 94 Oximetry 07/26/20 07/26/20 07/26/20 11:30 11:45 12:00 Temperature 97.4 F L Pulse Rate 53 L 54 L 64 Pulse Rate [ 64 From Monitor] Respiratory 18 18 18 Rate Blood Pressure 110/69 111/70 112/72 O2 Sat by Pulse 94 94 95 Oximetry 07/26/20 07/26/20 07/26/20 12:15 12:30 12:45 Temperature Pulse Rate 54 L 53 L 54 L Pulse Rate [ From Monitor] Respiratory 18 18 18 Rate Blood Pressure 112/73 115/72 112/72 O2 Sat by Pulse 95 95 95 Oximetry 07/26/20 07/26/20 07/26/20 13:00 13:15 13:30 Temperature Pulse Rate 54 L 53 L 53 L Pulse Rate [ From Monitor] Respiratory 18 18 18 Rate Blood Pressure 113/74 115/74 111/73 O2 Sat by Pulse 95 95 95 Oximetry 07/26/20 07/26/20 07/26/20 13:45 14:00 14:16 Temperature Pulse Rate 54 L 53 L 53 L Pulse Rate [ From Monitor] Respiratory 18 18 18 Rate Blood Pressure 115/73 110/70 112/71 O2 Sat by Pulse 95 94 95 Oximetry 07/26/20 07/26/20 07/26/20 14:25 14:30 14:45 Temperature Pulse Rate 52 L 55 L 53 L Pulse Rate [ From Monitor] Respiratory 17 18 Rate Blood Pressure 113/75 112/71 113/75 O2 Sat by Pulse 94 95 95 Oximetry 07/26/20 07/26/20 07/26/20 15:00 15:16 15:30 Temperature Pulse Rate 51 L 51 L 51 L Pulse Rate [ From Monitor] Respiratory 18 19 18 Rate Blood Pressure 94/39 90/44 91/48 O2 Sat by Pulse 94 94 95 Oximetry 07/26/20 07/26/20 07/26/20 15:46 16:00 16:16 Temperature 97.9 F Pulse Rate 50 L 51 L 50 L Pulse Rate [ 50 L From Monitor] Respiratory 18 18 18 Rate Blood Pressure 91/48 91/48 91/48 O2 Sat by Pulse 94 94 94 Oximetry 07/26/20 07/26/20 07/26/20 16:30 16:46 17:00 Temperature Pulse Rate 50 L 50 L 50 L Pulse Rate [ From Monitor] Respiratory 18 18 17 Rate Blood Pressure 91/51 91/49 91/49 O2 Sat by Pulse 94 95 95 Oximetry 07/26/20 07/26/20 07/26/20 17:16 17:30 17:46 Temperature Pulse Rate 49 L 56 L 55 L Pulse Rate [ From Monitor] Respiratory 18 18 18 Rate Blood Pressure 91/49 100/64 131/84 O2 Sat by Pulse 95 97 95 Oximetry 07/26/20 07/26/20 07/26/20 18:00 18:10 18:15 Temperature Pulse Rate 55 L 56 L 56 L Pulse Rate [ From Monitor] Respiratory 19 18 Rate Blood Pressure 122/84 122/84 125/83 O2 Sat by Pulse 94 95 94 Oximetry 07/26/20 07/26/20 07/26/20 18:30 18:46 19:00 Temperature Pulse Rate 56 L 53 L 53 L Pulse Rate [ From Monitor] Respiratory 18 18 18 Rate Blood Pressure 115/71 104/52 106/59 O2 Sat by Pulse 94 94 94 Oximetry 07/26/20 07/26/20 07/26/20 19:16 19:30 19:46 Temperature Pulse Rate 52 L 52 L 52 L Pulse Rate [ From Monitor] Respiratory 18 18 18 Rate Blood Pressure 102/57 105/67 109/62 O2 Sat by Pulse 94 94 94 Oximetry 07/26/20 07/26/20 07/26/20 20:00 20:15 20:30 Temperature 97.0 F L Pulse Rate 52 L 52 L 52 L Pulse Rate [ From Monitor] Respiratory 18 18 18 Rate Blood Pressure 97/64 106/68 112/70 O2 Sat by Pulse 94 94 95 Oximetry 07/26/20 07/26/20 07/26/20 20:31 20:45 20:46 Temperature Pulse Rate 51 L 54 L Pulse Rate [ 52 L From Monitor] Respiratory 18 18 Rate Blood Pressure 112/70 116/74 O2 Sat by Pulse 94 95 96 Oximetry 07/26/20 07/26/20 21:00 21:16 Temperature Pulse Rate 51 L 51 L Pulse Rate [ From Monitor] Respiratory 18 18 Rate Blood Pressure 116/74 100/66 O2 Sat by Pulse 94 94 Oximetry General appearance: Present: no acute distress, well-nourished - EENT Eyes: PERRL, EOM intact ENT: hearing intact, clear oral mucosa Ears: bilateral: normal - Neck Neck: supple, normal ROM - Respiratory Respiratory effort: normal Respiratory: bilateral: CTA - Breasts Breasts: normal - Cardiovascular Rhythm: regular Heart Sounds: Present: S1 & S2. Absent: gallop, rub Extremities: pulses intact, No edema, normal color, Full ROM - Gastrointestinal General gastrointestinal: Present: soft, non-tender, non-distended, normal bowel sounds - Genitourinary Female genitourinary: normal - Integumentary Integumentary: clear, warm, dry - Musculoskeletal Musculoskeletal: 1, strength equal bilaterally - Neurologic Neurologic: moves all extremities - Psychiatric Psychiatric: memory intact, appropriate mood/affect, intact judgment & insight - Labs CBC & Chem 7: 07/23/20 07:39 07/26/20 14:47 Labs: Abnormal lab results 07/23/20 07/23/20 07/26/20 Range/Units 23:52 23:52 01:54 PT (12.2-14.9) Sec. INR (0.87-1.13) Sodium (137-145) mmol/L Potassium (3.6-5.0) mmol/L Chloride (98-107) mmol/L BUN (7-17) mg/dL Glucose (65-100) mg/dL POC Glucose 130 H (70-105) mg/dL Total Bilirubin (0.1-1.2) mg/dL Direct Bilirubin (0-0.2) mg/dL AST (5-40) units/L ALT (7-56) units/L Alkaline Phosphatase (35-129) units/L Total Protein (6.3-8.2) g/dL Albumin (3.9-5) g/dL Complement C3 55 L (83-193) mg/dL Complement C4 11 L (15-57) mg/dL 07/26/20 07/26/20 07/26/20 Range/Units 05:38 07:48 11:31 PT (12.2-14.9) Sec. INR (0.87-1.13) Sodium (137-145) mmol/L Potassium (3.6-5.0) mmol/L Chloride (98-107) mmol/L BUN (7-17) mg/dL Glucose (65-100) mg/dL POC Glucose 155 H 155 H 147 H (70-105) mg/dL Total Bilirubin (0.1-1.2) mg/dL Direct Bilirubin (0-0.2) mg/dL AST (5-40) units/L ALT (7-56) units/L Alkaline Phosphatase (35-129) units/L Total Protein (6.3-8.2) g/dL Albumin (3.9-5) g/dL Complement C3 (83-193) mg/dL Complement C4 (15-57) mg/dL 07/26/20 07/26/20 07/26/20 Range/Units 14:47 14:47 14:47 PT 21.2 H (12.2-14.9) Sec. INR 1.83 H (0.87-1.13) Sodium 148 H (137-145) mmol/L Potassium 3.4 L D (3.6-5.0) mmol/L Chloride 118.2 H (98-107) mmol/L BUN 42 H (7-17) mg/dL Glucose 177 H (65-100) mg/dL POC Glucose (70-105) mg/dL Total Bilirubin 11.30 H (0.1-1.2) mg/dL Direct Bilirubin 8.6 H (0-0.2) mg/dL AST 139 H (5-40) units/L ALT 109 H (7-56) units/L Alkaline Phosphatase 368 H (35-129) units/L Total Protein 4.1 L (6.3-8.2) g/dL Albumin 2.3 L (3.9-5) g/dL Complement C3 (83-193) mg/dL Complement C4 (15-57) mg/dL 07/26/20 07/26/20 Range/Units 16:57 21:36 PT (12.2-14.9) Sec. INR (0.87-1.13) Sodium (137-145) mmol/L Potassium (3.6-5.0) mmol/L Chloride (98-107) mmol/L BUN (7-17) mg/dL Glucose (65-100) mg/dL POC Glucose 149 H 129 H (70-105) mg/dL Total Bilirubin (0.1-1.2) mg/dL Direct Bilirubin (0-0.2) mg/dL AST (5-40) units/L ALT (7-56) units/L Alkaline Phosphatase (35-129) units/L Total Protein (6.3-8.2) g/dL Albumin (3.9-5) g/dL Complement C3 (83-193) mg/dL Complement C4 (15-57) mg/dL HEART Score - HEART Score Troponin: Troponin T < 0.010 ng/mL (0.00-0.029) 07/16/20 20:47
[2020-07-27] MEDS: ACYCLOVIR IV SCH ×3 (02:00→21:03)
[2020-07-27] MEDS: SODIUM CHLORIDE 0.9% IV SCH ×3 (02:00→21:03)
[2020-07-27 05:20] LABS: Hemoglobin 6.5 gm/dl (10.1-14.3); Mean Corpuscular HGB Conc 35 % (30-34); Mean Corpuscular Volume 97 fl (79-97); Red Blood Count 1.95 M/mm3 (3.65-5.03)
[2020-07-27 05:23] LABS: Hematocrit 18.9 % (30.3-42.9); Red Cell Distribution Width 21.3 % (13.2-15.2)
[2020-07-27 05:40] LABS: Alanine Aminotransferase 89 units/L (7-56); Albumin 2.1 g/dL (3.9-5); BUN/Creatinine Ratio 59; Blood Urea Nitrogen 47 mg/dL (7-17); Calcium 8.6 mg/dL (8.4-10.2); Hemolysis Index 3
[2020-07-27 06:13] LABS: Band Neutrophils # (Manual) 2.4 K/mm3; Total Cells Counted 100
[2020-07-27 06:14] LABS: Anisocytosis 1+; Target Cells 2+
[2020-07-27 06:15] LABS: Ovalocytes 1+; Platelet Estimate Consistent w Auto; Poikilocytosis Few
[2020-07-27 06:16] LABS: Platelet Count 29 K/mm3 (140-440)
[2020-07-27] MEDS ORDERED: SODIUM CHLORIDE 0.9% 500 ML 500 ML IV ONE (06:18)
--- NOTE | 2020-07-27 06:39 | Gastroenterology Progress Note ---
Assessment and Plan liver function (as evidenced by INR which reflects synthetic function of the liver) continues to improve. To monitor liver function please draw INR daily Regarding anemia, per nursing documentation no GI bleeding and gastric tubing not frankly bloody; transfuse prn for goal hgb 7 and continue PPI for peptic ulcer prophylaxis, and call back for any overt GI bleeding Regarding terminal superintendent prognosis the neurologic insult is the most concerning issue, as liver function is continuing to improve. From hepatology perspective continue supportive care, avoid hepatotoxins, control cerebral pressures and followup neuro recs Given improvement in liver function and no further liver/GI interventions to be offered, GI will sign off, please call back with any questions or concerns - Patient Problems (1) Acute liver failure Current Visit: Yes Status: Acute (2) Acute respiratory failure Current Visit: Yes Status: Acute Qualifiers: Respiratory failure complication: hypoxia Qualified Code(s): J96.01 - Acute respiratory failure with hypoxia (3) Cardiac arrest Current Visit: Yes Status: Acute Subjective Date of service: 07/27/20 Principal diagnosis: Acute Liver Injury Interval history: Patient remains intubated and on pressor support She is not responsive to painful stimuli and cannot provide history Objective - Constitutional Vitals: Temp Pulse Resp BP Pulse Ox 95.0 F L 46 L 17 128/104 94 07/27/20 04:00 07/27/20 05:15 07/27/20 05:15 07/27/20 05:15 07/27/20 05:15 General appearance: other (intubated) - Neurologic Neurological: other (not withdrawing from painful stimuli) - Labs CBC & Chem 7: 07/27/20 04:45 07/27/20 04:45 Labs: Laboratory Results - last 24 hr 07/23/20 07/23/20 07/23/20 13:19 23:52 23:52 WBC RBC Hgb Hct MCV MCH MCHC RDW Plt Count Add Manual Diff Total Counted Seg Neuts % (Manual) Band Neutrophils % Lymphocytes % (Manual) Monocytes % (Manual) Metamyelocytes % Nucleated RBC % Seg Neutrophils # Man Band Neutrophils # Lymphocytes # (Manual) Abs React Lymphs (Man) Monocytes # (Manual) Eosinophils # (Manual) Basophils # (Manual) Metamyelocytes # Myelocytes # Promyelocytes # Blast Cells # WBC Morphology Hypersegmented Neuts Hyposegmented Neuts Hypogranular Neuts Smudge Cells Toxic Granulation Toxic Vacuolation Dohle Bodies Pelger-Huet Anomaly Fede Rods Platelet Estimate Clumped Platelets Plt Clumps, EDTA Large Platelets Giant Platelets Platelet Satelliting Plt Morphology Comment RBC Morphology Dimorphic RBCs Polychromasia Hypochromasia Poikilocytosis Anisocytosis Microcytosis Macrocytosis Spherocytes Pappenheimer Bodies Sickle Cells Target Cells Tear Drop Cells Ovalocytes Helmet Cells Donaldson-Chalfant Bodies [place] Rings Shashank Cells Bite Cells Crenated Cell Elliptocytes Acanthocytes (Spur) Rouleaux Hemoglobin C Crystals Schistocytes Malaria parasites Richard Bodies Hem Pathologist Commnt PT INR Sodium Potassium Chloride Carbon Dioxide Anion Gap BUN Creatinine Estimated GFR BUN/Creatinine Ratio Glucose POC Glucose Calcium Total Bilirubin Direct Bilirubin Indirect Bilirubin AST ALT Alkaline Phosphatase Total Protein Albumin Albumin/Globulin Ratio Nasal Screen MRSA (PCR) Negative Complement C3 55 L Complement C4 11 L 07/26/20 07/26/20 07/26/20 07:48 11:31 14:47 WBC RBC Hgb Hct MCV MCH MCHC RDW Plt Count Add Manual Diff Total Counted Seg Neuts % (Manual) Band Neutrophils % Lymphocytes % (Manual) Monocytes % (Manual) Metamyelocytes % Nucleated RBC % Seg Neutrophils # Man Band Neutrophils # Lymphocytes # (Manual) Abs React Lymphs (Man) Monocytes # (Manual) Eosinophils # (Manual) Basophils # (Manual) Metamyelocytes # Myelocytes # Promyelocytes # Blast Cells # WBC Morphology Hypersegmented Neuts Hyposegmented Neuts Hypogranular Neuts Smudge Cells Toxic Granulation Toxic Vacuolation Dohle Bodies Pelger-Huet Anomaly Fede Rods Platelet Estimate Clumped Platelets Plt Clumps, EDTA Large Platelets Giant Platelets Platelet Satelliting Plt Morphology Comment RBC Morphology Dimorphic RBCs Polychromasia Hypochromasia Poikilocytosis Anisocytosis Microcytosis Macrocytosis Spherocytes Pappenheimer Bodies Sickle Cells Target Cells Tear Drop Cells Ovalocytes Helmet Cells Donaldson-Chalfant Bodies [place] Rings [place] Cells Bite Cells Crenated Cell Elliptocytes Acanthocytes (Spur) Rouleaux Hemoglobin C Crystals Schistocytes Malaria parasites Richard Bodies Hem Pathologist Commnt PT INR Sodium 148 H Potassium 3.4 L D Chloride 118.2 H Carbon Dioxide 22 Anion Gap 11 BUN 42 H Creatinine 0.7 Estimated GFR > 60 BUN/Creatinine Ratio 60 Glucose 177 H POC Glucose 155 H 147 H Calcium 8.5 Total Bilirubin Direct Bilirubin Indirect Bilirubin AST ALT Alkaline Phosphatase Total Protein Albumin Albumin/Globulin Ratio Nasal Screen MRSA (PCR) Complement C3 Complement C4 07/26/20 07/26/20 07/26/20 14:47 14:47 16:57 WBC RBC Hgb Hct MCV MCH MCHC RDW Plt Count Add Manual Diff Total Counted Seg Neuts % (Manual) Band Neutrophils % Lymphocytes % (Manual) Monocytes % (Manual) Metamyelocytes % Nucleated RBC % Seg Neutrophils # Man Band Neutrophils # Lymphocytes # (Manual) Abs React Lymphs (Man) Monocytes # (Manual) Eosinophils # (Manual) Basophils # (Manual) Metamyelocytes # Myelocytes # Promyelocytes # Blast Cells # WBC Morphology Hypersegmented Neuts Hyposegmented Neuts Hypogranular Neuts Smudge Cells Toxic Granulation Toxic Vacuolation Dohle Bodies Pelger-Huet Anomaly Fede Rods Platelet Estimate Clumped Platelets Plt Clumps, EDTA Large Platelets Giant Platelets Platelet Satelliting Plt Morphology Comment RBC Morphology Dimorphic RBCs Polychromasia Hypochromasia Poikilocytosis Anisocytosis Microcytosis Macrocytosis Spherocytes Pappenheimer Bodies Sickle Cells Target Cells Tear Drop Cells Ovalocytes Helmet Cells Donaldson-Chalfant Bodies [place] Rings [place] Cells Bite Cells Crenated Cell Elliptocytes Acanthocytes (Spur) Rouleaux Hemoglobin C Crystals Schistocytes Malaria parasites Richard Bodies Hem Pathologist Commnt PT 21.2 H INR 1.83 H Sodium Potassium Chloride Carbon Dioxide Anion Gap BUN Creatinine Estimated GFR BUN/Creatinine Ratio Glucose POC Glucose 149 H Calcium Total Bilirubin 11.30 H Direct Bilirubin 8.6 H Indirect Bilirubin 2.7 AST 139 H ALT 109 H Alkaline Phosphatase 368 H Total Protein 4.1 L Albumin 2.3 L Albumin/Globulin Ratio 1.3 Nasal Screen MRSA (PCR) Complement C3 Complement C4 07/26/20 07/27/20 07/27/20 21:36 02:03 04:45 WBC 22.2 H RBC 1.95 L Hgb 6.5 L Hct 18.9 L* MCV 97 MCH 34 H MCHC 35 H RDW 21.3 H Plt Count 29 L Add Manual Diff Complete Total Counted 100 Seg Neuts % (Manual) 82.0 H Band Neutrophils % 11.0 Lymphocytes % (Manual) 3.0 L Monocytes % (Manual) 3.0 Metamyelocytes % 1.0 Nucleated RBC % Not Reportable Seg Neutrophils # Man 18.2 H Band Neutrophils # 2.4 Lymphocytes # (Manual) 0.7 L Abs React Lymphs (Man) 0.0 Monocytes # (Manual) 0.7 Eosinophils # (Manual) 0.0 Basophils # (Manual) 0.0 Metamyelocytes # 0.2 Myelocytes # 0.0 Promyelocytes # 0.0 Blast Cells # 0.0 WBC Morphology Not Reportable Hypersegmented Neuts Not Reportable Hyposegmented Neuts Not Reportable Hypogranular Neuts Not Reportable Smudge Cells Not Reportable Toxic Granulation Not Reportable Toxic Vacuolation Not Reportable Dohle Bodies Not Reportable Pelger-Huet Anomaly Not Reportable Fede Rods Not Reportable Platelet Estimate Consistent w auto Clumped Platelets Not Reportable Plt Clumps, EDTA Not Reportable Large Platelets Not Reportable Giant Platelets Not Reportable Platelet Satelliting Not Reportable Plt Morphology Comment Not Reportable RBC Morphology Not Reportable Dimorphic RBCs Not Reportable Polychromasia 1+ Hypochromasia Not Reportable Poikilocytosis Few Anisocytosis 1+ Microcytosis Not Reportable Macrocytosis Not Reportable Spherocytes Not Reportable Pappenheimer Bodies Not Reportable Sickle Cells Not Reportable Target Cells 2+ Tear Drop Cells Not Reportable Ovalocytes 1+ Helmet Cells Not Reportable Donaldson-Chalfant Bodies Not Reportable [place] Rings Not Reportable [place] Cells Not Reportable Bite Cells Not Reportable Crenated Cell Not Reportable Elliptocytes Not Reportable Acanthocytes (Spur) Not Reportable Rouleaux Not Reportable Hemoglobin C Crystals Not Reportable Schistocytes Not Reportable Malaria parasites Not Reportable Richard Bodies Not Reportable Hem Pathologist Commnt No PT INR Sodium Potassium Chloride Carbon Dioxide Anion Gap BUN Creatinine Estimated GFR BUN/Creatinine Ratio Glucose POC Glucose 129 H 134 H Calcium Total Bilirubin Direct Bilirubin Indirect Bilirubin AST ALT Alkaline Phosphatase Total Protein Albumin Albumin/Globulin Ratio Nasal Screen MRSA (PCR) Complement C3 Complement C4 07/27/20 07/27/20 04:45 05:36 WBC RBC Hgb Hct MCV MCH MCHC RDW Plt Count Add Manual Diff Total Counted Seg Neuts % (Manual) Band Neutrophils % Lymphocytes % (Manual) Monocytes % (Manual) Metamyelocytes % Nucleated RBC % Seg Neutrophils # Man Band Neutrophils # Lymphocytes # (Manual) Abs React Lymphs (Man) Monocytes # (Manual) Eosinophils # (Manual) Basophils # (Manual) Metamyelocytes # Myelocytes # Promyelocytes # Blast Cells # WBC Morphology Hypersegmented Neuts Hyposegmented Neuts Hypogranular Neuts Smudge Cells Toxic Granulation Toxic Vacuolation Dohle Bodies Pelger-Huet Anomaly Fede Rods Platelet Estimate Clumped Platelets Plt Clumps, EDTA Large Platelets Giant Platelets Platelet Satelliting Plt Morphology Comment RBC Morphology Dimorphic RBCs Polychromasia Hypochromasia Poikilocytosis Anisocytosis Microcytosis Macrocytosis Spherocytes Pappenheimer Bodies Sickle Cells Target Cells Tear Drop Cells Ovalocytes Helmet Cells Donaldson-Chalfant Bodies [place] Rings [place] Cells Bite Cells Crenated Cell Elliptocytes Acanthocytes (Spur) Rouleaux Hemoglobin C Crystals Schistocytes Malaria parasites Richard Bodies Hem Pathologist Commnt PT INR Sodium 150 H Potassium 3.4 L Chloride 119.4 H Carbon Dioxide 22 Anion Gap 12 BUN 47 H Creatinine 0.8 Estimated GFR > 60 BUN/Creatinine Ratio 59 Glucose 137 H POC Glucose 126 H Calcium 8.6 Total Bilirubin 9.60 H Direct Bilirubin Indirect Bilirubin AST 120 H ALT 89 H Alkaline Phosphatase 340 H Total Protein 3.7 L Albumin 2.1 L Albumin/Globulin Ratio 1.3 Nasal Screen MRSA (PCR) Complement C3 Complement C4
[2020-07-27] MEDS: HYDROCORTISONE SOD SUCC 100 MG/2 ML VIAL IV SCH ×3 (07:37→21:11)
[2020-07-27] MEDS: PANTOPRAZOLE 40 MG INJ IV SCH ×3 (07:38→21:04)
[2020-07-27] MEDS: POTASSIUM CHLORIDE 10 MEQ 10 MEQ/100 ML BAG IV SCH ×3 (07:39→16:49)
[2020-07-27] MEDS: VASOPRESSIN 20 UNIT in SODIUM CHLORIDE 0.9% 100 ML IV SCH ×2 (09:30→20:53)
[2020-07-27] MEDS: FOLIC ACID 1 MG in SODIUM CHLORIDE 0.9% 50 ML IV SCH (10:01)
[2020-07-27] MEDS: THIAMINE 100 MG in SODIUM CHLORIDE 0.9% 50 ML IV SCH (10:01)
--- NOTE | 2020-07-27 10:05 | Progress Note ---
Assessment and Plan Cultures: 07/16/2020 blood culture: no growth 07/17/2020 cervix wet prep: High number of clue cells, no trichomonas or yeast seen. 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 #Severe sepsis septic shock/MODS: remains on pressors. No clear infectious etiology. Likely secondary to acute hepatic failure. #Bilateral pneumonia versus pulmonary edema: Bilateral pleural effusions, diffuse bilateral patchy groundglass opacities. Completed empiric abx. #Acute hepatic failure: ?Toxin/med related v/s autoimmune, less likely infectious. Also ruling out HSV induced hepatic necrosis and related fulminant hepatic failure. GI also evaluated. LFTs and synthetic liver function continue to improve. MARY negative, C3, C4 low. #Acute kidney injury: resolved #Possible UTI/PID: completed empiric abx. GC NAAT negative. #Diffuse colitis noted on CT scan: s/p antibiotics. On multiple pressors. More likely to be ischemia related. No active diarrhea. #Acute encephalopathy, diffuse cerebral edema: Probably a combination of acute liver failure and hypoxic encephalopathy. #Acute thrombocytopenia #Anemia #Syphilis IgG positive, RPR titer non reactive, FTA-ABS is also nonreactive, so very likely it is a false positive Recs: -Continue renally dosed acyclovir, till results of serum HSV DNA PCR are back -overall guarded prognosis Kinjal Abebe MD, FACP [facility] ([facility] O: [phone] F: [phone] Subjective Date of service: 07/27/20 Principal diagnosis: Acute Liver Injury Interval history: No fever. Remains on the vent. Remains on 2 pressors. Unresponsive. Objective - Exam Narrative Exam: Physical Exam: Constitutional: unresponsive, intubated, on the vent Head, Ears, Nose: Normocephalic, atraumatic. External ears, nose normal Eyes: Conjunctivae/corneas clear. No icterus. No ptosis. Neck: intubated Oral: intubated Cardiovascular: S1, S2 + Respiratory: AE fair bilaterally and equal GI: Soft, bowel sounds hypo Musculoskeletal: anasarca + Skin: No rash or abscess Hem/Lymphatic: No palpable cervical or supraclavicular nodes. No lymphangitis Psych: no agitation Neurological: unresponsive, intubated, on the vent, exam limited - Constitutional Vitals: Vital Signs Temp Pulse Resp BP Pulse Ox 95.0 F L 63 26 H 180/108 95 07/27/20 04:00 07/27/20 08:45 07/27/20 08:45 07/27/20 08:45 07/27/20 08:45 Temperature -Last 24 Hours Temperature 95.0 F Temperature 96.7 F Temperature 97.0 F Temperature 97.9 F Temperature 97.9 F Temperature 97.4 F Temperature 97.4 F - Labs CBC & Chem 7: 07/27/20 04:45 07/27/20 04:45 Labs: Abnormal lab results 07/23/20 07/23/20 07/26/20 Range/Units 23:52 23:52 11:31 WBC (4.5-11.0) K/mm3 RBC (3.65-5.03) M/mm3 Hgb (10.1-14.3) gm/dl Hct (30.3-42.9) % MCH (28-32) pg MCHC (30-34) % RDW (13.2-15.2) % Plt Count (140-440) K/mm3 Seg Neuts % (Manual) (40.0-70.0) % Lymphocytes % (Manual) (13.4-35.0) % Seg Neutrophils # Man (1.8-7.7) K/mm3 Lymphocytes # (Manual) (1.2-5.4) K/mm3 PT (12.2-14.9) Sec. INR (0.87-1.13) Sodium (137-145) mmol/L Potassium (3.6-5.0) mmol/L Chloride (98-107) mmol/L BUN (7-17) mg/dL Glucose (65-100) mg/dL POC Glucose 147 H (70-105) mg/dL Total Bilirubin (0.1-1.2) mg/dL Direct Bilirubin (0-0.2) mg/dL AST (5-40) units/L ALT (7-56) units/L Alkaline Phosphatase (35-129) units/L Total Protein (6.3-8.2) g/dL Albumin (3.9-5) g/dL Complement C3 55 L (83-193) mg/dL Complement C4 11 L (15-57) mg/dL 07/26/20 07/26/20 07/26/20 Range/Units 14:47 14:47 14:47 WBC (4.5-11.0) K/mm3 RBC (3.65-5.03) M/mm3 Hgb (10.1-14.3) gm/dl Hct (30.3-42.9) % MCH (28-32) pg MCHC (30-34) % RDW (13.2-15.2) % Plt Count (140-440) K/mm3 Seg Neuts % (Manual) (40.0-70.0) % Lymphocytes % (Manual) (13.4-35.0) % Seg Neutrophils # Man (1.8-7.7) K/mm3 Lymphocytes # (Manual) (1.2-5.4) K/mm3 PT 21.2 H (12.2-14.9) Sec. INR 1.83 H (0.87-1.13) Sodium 148 H (137-145) mmol/L Potassium 3.4 L D (3.6-5.0) mmol/L Chloride 118.2 H (98-107) mmol/L BUN 42 H (7-17) mg/dL Glucose 177 H (65-100) mg/dL POC Glucose (70-105) mg/dL Total Bilirubin 11.30 H (0.1-1.2) mg/dL Direct Bilirubin 8.6 H (0-0.2) mg/dL AST 139 H (5-40) units/L ALT 109 H (7-56) units/L Alkaline Phosphatase 368 H (35-129) units/L Total Protein 4.1 L (6.3-8.2) g/dL Albumin 2.3 L (3.9-5) g/dL Complement C3 (83-193) mg/dL Complement C4 (15-57) mg/dL 07/26/20 07/26/20 07/27/20 Range/Units 16:57 21:36 02:03 WBC (4.5-11.0) K/mm3 RBC (3.65-5.03) M/mm3 Hgb (10.1-14.3) gm/dl Hct (30.3-42.9) % MCH (28-32) pg MCHC (30-34) % RDW (13.2-15.2) % Plt Count (140-440) K/mm3 Seg Neuts % (Manual) (40.0-70.0) % Lymphocytes % (Manual) (13.4-35.0) % Seg Neutrophils # Man (1.8-7.7) K/mm3 Lymphocytes # (Manual) (1.2-5.4) K/mm3 PT (12.2-14.9) Sec. INR (0.87-1.13) Sodium (137-145) mmol/L Potassium (3.6-5.0) mmol/L Chloride (98-107) mmol/L BUN (7-17) mg/dL Glucose (65-100) mg/dL POC Glucose 149 H 129 H 134 H (70-105) mg/dL Total Bilirubin (0.1-1.2) mg/dL Direct Bilirubin (0-0.2) mg/dL AST (5-40) units/L ALT (7-56) units/L Alkaline Phosphatase (35-129) units/L Total Protein (6.3-8.2) g/dL Albumin (3.9-5) g/dL Complement C3 (83-193) mg/dL Complement C4 (15-57) mg/dL 07/27/20 07/27/20 07/27/20 Range/Units 04:45 04:45 05:36 WBC 22.2 H (4.5-11.0) K/mm3 RBC 1.95 L (3.65-5.03) M/mm3 Hgb 6.5 L (10.1-14.3) gm/dl Hct 18.9 L* (30.3-42.9) % MCH 34 H (28-32) pg MCHC 35 H (30-34) % RDW 21.3 H (13.2-15.2) % Plt Count 29 L (140-440) K/mm3 Seg Neuts % (Manual) 82.0 H (40.0-70.0) % Lymphocytes % (Manual) 3.0 L (13.4-35.0) % Seg Neutrophils # Man 18.2 H (1.8-7.7) K/mm3 Lymphocytes # (Manual) 0.7 L (1.2-5.4) K/mm3 PT (12.2-14.9) Sec. INR (0.87-1.13) Sodium 150 H (137-145) mmol/L Potassium 3.4 L (3.6-5.0) mmol/L Chloride 119.4 H (98-107) mmol/L BUN 47 H (7-17) mg/dL Glucose 137 H (65-100) mg/dL POC Glucose 126 H (70-105) mg/dL Total Bilirubin 9.60 H (0.1-1.2) mg/dL Direct Bilirubin (0-0.2) mg/dL AST 120 H (5-40) units/L ALT 89 H (7-56) units/L Alkaline Phosphatase 340 H (35-129) units/L Total Protein 3.7 L (6.3-8.2) g/dL Albumin 2.1 L (3.9-5) g/dL Complement C3 (83-193) mg/dL Complement C4 (15-57) mg/dL
[2020-07-27] MEDS: DEXTROSE 10% IN WATER 1,000 ML IV SCH (10:30)
[2020-07-27] MEDS ORDERED: SODIUM CHLORIDE 0.9% 500 ML 500 ML IV NR (12:00)
--- NOTE | 2020-07-27 12:24 | Progress Note ---
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 07/27/2020: Await MRI. Continue supportive measures. Clinical picture appears to be worsening. Family awaiting neurology input and they need imaging. 07/26/2020: Await MRI. Continue supportive care. Hopeful to wean off levo so we can start feeding patient later today. Will replace lytes and give more free water. Prognosis still appears to be very very poor from a neurological standpoint. 07/25/2020: Reviewed consultants notes on yesterday. Neuro has requested EEG to rule out status. Will speak with them in regards to MRI. Patient is stable enough for travel as pressor requirement is minimal and vent requirement is minimal. No objection to travel. Given hypoglycemia, will change fingersticks to q1 hour. Unable to feed secondary to pressor requirement or this could resultant of liver impairment. Overall prognosis appears to be poor. ] Continue supportive vent care. Not weanable secondary to mental state. Will await family meeting Wean Vasopressors for MAPS >65 Once down to one pressor can feed Will obtain formal neurology consult today May need to consider EEG Overall prognosis appears to be very poor. CCT 31 minutes. Subjective Date of service: 07/27/20 Principal diagnosis: Acute Liver Injury Interval history: Back on 2 pressors. Still hypoglycemic. Hydrocortisone was started yesterday. Still unresponsive. More anemic today. Getting blood. Has not had MRI yet. Objective Vital Signs - 12hr 07/27/20 07/27/20 07/27/20 00:30 00:45 00:50 Temperature Pulse Rate 47 L 47 L 45 L Pulse Rate [ From Monitor] Respiratory 18 18 Rate Blood Pressure 89/54 89/54 O2 Sat by Pulse 94 94 96 Oximetry 07/27/20 07/27/20 07/27/20 01:01 01:15 01:31 Temperature Pulse Rate 47 L 47 L 47 L Pulse Rate [ From Monitor] Respiratory 19 18 18 Rate Blood Pressure 89/54 84/59 91/55 O2 Sat by Pulse 95 94 94 Oximetry 07/27/20 07/27/20 07/27/20 01:45 02:01 02:15 Temperature Pulse Rate 48 L 46 L 47 L Pulse Rate [ From Monitor] Respiratory 18 18 18 Rate Blood Pressure 97/65 97/65 97/65 O2 Sat by Pulse 94 93 94 Oximetry 07/27/20 07/27/20 07/27/20 02:31 02:45 03:01 Temperature Pulse Rate 47 L 47 L 48 L Pulse Rate [ From Monitor] Respiratory 17 17 18 Rate Blood Pressure 97/65 97/65 97/65 O2 Sat by Pulse 94 94 93 Oximetry 07/27/20 07/27/20 07/27/20 03:15 03:31 03:45 Temperature Pulse Rate 47 L 47 L 47 L Pulse Rate [ From Monitor] Respiratory 18 17 18 Rate Blood Pressure 97/65 97/65 97/65 O2 Sat by Pulse 94 94 94 Oximetry 07/27/20 07/27/20 07/27/20 04:00 04:01 04:15 Temperature 95.0 F L Pulse Rate 48 L 48 L 49 L Pulse Rate [ From Monitor] Respiratory 18 12 Rate Blood Pressure 97/65 97/65 O2 Sat by Pulse 95 94 93 Oximetry 07/27/20 07/27/20 07/27/20 04:30 04:31 04:45 Temperature Pulse Rate 46 L 46 L Pulse Rate [ 48 L From Monitor] Respiratory 17 17 17 Rate Blood Pressure 128/104 128/104 O2 Sat by Pulse 94 93 95 Oximetry 07/27/20 07/27/20 07/27/20 05:01 05:15 05:31 Temperature Pulse Rate 46 L 46 L 47 L Pulse Rate [ From Monitor] Respiratory 15 17 15 Rate Blood Pressure 128/104 128/104 128/104 O2 Sat by Pulse 95 94 93 Oximetry 07/27/20 07/27/20 07/27/20 05:45 06:01 06:15 Temperature Pulse Rate 53 L 52 L 55 L Pulse Rate [ From Monitor] Respiratory 17 18 13 Rate Blood Pressure 128/104 146/116 146/116 O2 Sat by Pulse 97 93 95 Oximetry 07/27/20 07/27/20 07/27/20 06:31 06:45 07:00 Temperature Pulse Rate 57 L 62 62 Pulse Rate [ From Monitor] Respiratory 12 16 14 Rate Blood Pressure 146/116 180/119 175/117 O2 Sat by Pulse 95 95 Oximetry 07/27/20 07/27/20 07/27/20 07:15 07:31 07:45 Temperature Pulse Rate 61 59 L 59 L Pulse Rate [ From Monitor] Respiratory 13 16 19 Rate Blood Pressure 163/115 163/115 163/115 O2 Sat by Pulse 91 91 94 Oximetry 07/27/20 07/27/20 07/27/20 08:00 08:01 08:15 Temperature 95 F L Pulse Rate 60 65 Pulse Rate [ 64 From Monitor] Respiratory 17 12 11 L Rate Blood Pressure 172/112 172/112 O2 Sat by Pulse 94 92 95 Oximetry 07/27/20 07/27/20 07/27/20 08:31 08:45 09:01 Temperature Pulse Rate 58 L 63 64 Pulse Rate [ From Monitor] Respiratory 17 26 H 12 Rate Blood Pressure 180/108 180/108 175/111 O2 Sat by Pulse 93 95 93 Oximetry 07/27/20 07/27/20 07/27/20 09:15 09:31 09:40 Temperature Pulse Rate 64 64 59 L Pulse Rate [ From Monitor] Respiratory 17 16 Rate Blood Pressure 175/111 175/111 O2 Sat by Pulse 95 93 95 Oximetry 07/27/20 07/27/20 07/27/20 09:45 10:00 10:15 Temperature Pulse Rate 61 59 L 60 Pulse Rate [ From Monitor] Respiratory 17 19 10 L Rate Blood Pressure 134/91 132/87 137/89 O2 Sat by Pulse 94 95 95 Oximetry 07/27/20 07/27/20 07/27/20 10:30 10:50 11:00 Temperature Pulse Rate 60 61 61 Pulse Rate [ From Monitor] Respiratory 13 16 15 Rate Blood Pressure 136/89 135/87 128/82 O2 Sat by Pulse 95 94 94 Oximetry 07/27/20 07/27/20 07/27/20 11:10 11:20 11:25 Temperature 95 F L Pulse Rate 62 60 Pulse Rate [ From Monitor] Respiratory 16 19 Rate Blood Pressure 126/81 109/56 O2 Sat by Pulse 94 92 Oximetry Constitutional: comatose Eyes: icteric ENT: other (orally intubated, no sedation) Neck: supple Effort: normal Ascultation: Bilateral: rales, rhonchi (anteriorly), other (coarse BS bilaterally) Cardiovascular: other (tachy, RR; no mrg) Gastrointestinal: normoactive bowel sounds, soft, non-tender, non-distended Integumentary: normal Extremities: no cyanosis, edema (1+ bilateral LE edema) Neurologic: other (unresponsive) Psychiatric: other (unable to assess) CBC and BMP: 07/27/20 04:45 07/27/20 04:45 ABG, PT/INR, D-dimer: ABG ABG pH 7.458 (7.320-7.450) H 07/25/20 05:20 POC ABG pCO2 32.7 mmHg (32.0-48.0) 07/25/20 05:20 ABG pCO2 31.2 mm Hg 07/22/20 04:25 POC ABG pO2 77.5 mmHg (83-108) L 07/25/20 05:20 ABG pO2 104.9 mm Hg (80.0-90.0) H 07/22/20 04:25 POC ABG HCO3 22.6 07/25/20 05:20 ABG O2 Saturation 98.1 % (95.0-99.0) 07/22/20 04:25 PT/INR, D-dimer PT 21.2 Sec. (12.2-14.9) H 07/26/20 14:47 INR 1.83 (0.87-1.13) H 07/26/20 14:47 Abnormal lab findings: Abnormal Labs 07/16/20 07/16/20 07/16/20 03:54 20:47 20:47 WBC 33.9 H RBC Hgb Hct MCV 107 H MCH 34 H MCHC RDW 22.0 H Plt Count Lymph % (Auto) [place] % (Auto) Lymph # (Auto) [place] # (Auto) Eos # (Auto) Seg Neutrophils % Seg Neuts % (Manual) 89.0 H Lymphocytes % (Manual) 2.0 L Monocytes % (Manual) Nucleated RBC % 1.0 H Seg Neutrophils # Seg Neutrophils # Man 30.2 H Lymphocytes # (Manual) 0.7 L Monocytes # (Manual) 1.4 H Eosinophils # (Manual) PT INR ABG pH POC ABG pCO2 POC ABG pO2 ABG pO2 ABG Base Excess ABG Hemoglobin ABG Oxyhemoglobin ABG Sodium ABG Potassium ABG Chloride ABG Glucose VBG pH Oxyhemoglobin Carboxyhemoglobin Sodium Potassium 5.1 H Chloride Carbon Dioxide 9 L* BUN 20 H Creatinine 1.9 H Glucose 30 L* POC Glucose Lactic Acid Calcium Phosphorus Magnesium Total Bilirubin 5.40 H Direct Bilirubin AST 67833 H ALT 1829 H Alkaline Phosphatase 141 H Ammonia Total Creatine Kinase C-Reactive Protein Total Protein Albumin Lipase 9 L Arterial Blood Glucose Arterial Blood Ionized Calcium Urine WBC (Auto) 57.0 H U Epithel Cells (Auto) 23.0 H Acetaminophen Complement C3 Complement C4 Syphilis IgG Antibody HSV I Specific Ab Crossmatch 07/16/20 07/16/20 07/16/20 20:47 22:43 23:06 WBC RBC Hgb Hct MCV MCH MCHC RDW Plt Count Lymph % (Auto) [place] % (Auto) Lymph # (Auto) [place] # (Auto) Eos # (Auto) Seg Neutrophils % Seg Neuts % (Manual) Lymphocytes % (Manual) Monocytes % (Manual) Nucleated RBC % Seg Neutrophils # Seg Neutrophils # Man Lymphocytes # (Manual) Monocytes # (Manual) Eosinophils # (Manual) PT INR ABG pH POC ABG pCO2 POC ABG pO2 ABG pO2 ABG Base Excess ABG Hemoglobin ABG Oxyhemoglobin ABG Sodium ABG Potassium ABG Chloride ABG Glucose VBG pH Oxyhemoglobin Carboxyhemoglobin Sodium Potassium Chloride Carbon Dioxide BUN Creatinine Glucose POC Glucose 140 H Lactic Acid 14.90 H* Calcium Phosphorus Magnesium Total Bilirubin Direct Bilirubin AST ALT Alkaline Phosphatase Ammonia Total Creatine Kinase 230 H C-Reactive Protein Total Protein Albumin Lipase Arterial Blood Glucose Arterial Blood Ionized Calcium Urine WBC (Auto) U Epithel Cells (Auto) Acetaminophen Complement C3 Complement C4 Syphilis IgG Antibody HSV I Specific Ab Crossmatch 07/17/20 07/17/20 07/17/20 01:46 01:46 04:55 WBC RBC Hgb Hct MCV MCH MCHC RDW Plt Count Lymph % (Auto) [place] % (Auto) Lymph # (Auto) [place] # (Auto) Eos # (Auto) Seg Neutrophils % Seg Neuts % (Manual) Lymphocytes % (Manual) Monocytes % (Manual) Nucleated RBC % Seg Neutrophils # Seg Neutrophils # Man Lymphocytes # (Manual) Monocytes # (Manual) Eosinophils # (Manual) PT INR ABG pH POC ABG pCO2 POC ABG pO2 ABG pO2 ABG Base Excess ABG Hemoglobin ABG Oxyhemoglobin ABG Sodium ABG Potassium ABG Chloride ABG Glucose VBG pH 7.085 L* Oxyhemoglobin Carboxyhemoglobin Sodium Potassium Chloride Carbon Dioxide BUN Creatinine Glucose POC Glucose Lactic Acid 13.20 H* 12.00 H* Calcium Phosphorus Magnesium Total Bilirubin Direct Bilirubin AST ALT Alkaline Phosphatase Ammonia Total Creatine Kinase C-Reactive Protein Total Protein Albumin Lipase Arterial Blood Glucose Arterial Blood Ionized Calcium Urine WBC (Auto) U Epithel Cells (Auto) Acetaminophen Complement C3 Complement C4 Syphilis IgG Antibody HSV I Specific Ab Crossmatch 07/17/20 07/17/20 07/17/20 06:05 07:33 07:48 WBC RBC Hgb Hct MCV MCH MCHC RDW Plt Count Lymph % (Auto) [place] % (Auto) Lymph # (Auto) [place] # (Auto) Eos # (Auto) Seg Neutrophils % Seg Neuts % (Manual) Lymphocytes % (Manual) Monocytes % (Manual) Nucleated RBC % Seg Neutrophils # Seg Neutrophils # Man Lymphocytes # (Manual) Monocytes # (Manual) Eosinophils # (Manual) PT INR ABG pH POC ABG pCO2 POC ABG pO2 ABG pO2 ABG Base Excess ABG Hemoglobin ABG Oxyhemoglobin ABG Sodium ABG Potassium ABG Chloride ABG Glucose VBG pH Oxyhemoglobin Carboxyhemoglobin Sodium Potassium Chloride Carbon Dioxide BUN Creatinine Glucose POC Glucose 59 L 125 H Lactic Acid 12.00 H* Calcium Phosphorus Magnesium Total Bilirubin Direct Bilirubin AST ALT Alkaline Phosphatase Ammonia Total Creatine Kinase C-Reactive Protein Total Protein Albumin Lipase Arterial Blood Glucose Arterial Blood Ionized Calcium Urine WBC (Auto) U Epithel Cells (Auto) Acetaminophen Complement C3 Complement C4 Syphilis IgG Antibody HSV I Specific Ab Crossmatch 07/17/20 07/17/20 07/17/20 09:23 09:23 09:24 WBC RBC Hgb Hct MCV MCH MCHC RDW Plt Count Lymph % (Auto) [place] % (Auto) Lymph # (Auto) [place] # (Auto) Eos # (Auto) Seg Neutrophils % Seg Neuts % (Manual) Lymphocytes % (Manual) Monocytes % (Manual) Nucleated RBC % Seg Neutrophils # Seg Neutrophils # Man Lymphocytes # (Manual) Monocytes # (Manual) Eosinophils # (Manual) PT INR ABG pH POC ABG pCO2 POC ABG pO2 ABG pO2 ABG Base Excess ABG Hemoglobin ABG Oxyhemoglobin ABG Sodium ABG Potassium ABG Chloride ABG Glucose VBG pH Oxyhemoglobin Carboxyhemoglobin Sodium Potassium 5.7 H Chloride 107.6 H Carbon Dioxide 13 L BUN 24 H Creatinine 2.1 H Glucose 121 H POC Glucose Lactic Acid Calcium 6.0 L D Phosphorus Magnesium Total Bilirubin 3.80 H Direct Bilirubin AST 8355 H ALT 1522 H Alkaline Phosphatase Ammonia Total Creatine Kinase 332 H C-Reactive Protein Total Protein 4.7 L D Albumin 2.8 L Lipase Arterial Blood Glucose Arterial Blood Ionized Calcium Urine WBC (Auto) U Epithel Cells (Auto) Acetaminophen 5.0 L Complement C3 Complement C4 Syphilis IgG Antibody HSV I Specific Ab Crossmatch 07/17/20 07/17/20 07/17/20 11:08 11:08 11:08 WBC RBC Hgb Hct MCV MCH MCHC RDW Plt Count Lymph % (Auto) [place] % (Auto) Lymph # (Auto) [place] # (Auto) Eos # (Auto) Seg Neutrophils % Seg Neuts % (Manual) Lymphocytes % (Manual) Monocytes % (Manual) Nucleated RBC % Seg Neutrophils # Seg Neutrophils # Man Lymphocytes # (Manual) Monocytes # (Manual) Eosinophils # (Manual) PT 60.1 H INR > 17.67 H* ABG pH POC ABG pCO2 POC ABG pO2 ABG pO2 ABG Base Excess ABG Hemoglobin ABG Oxyhemoglobin ABG Sodium ABG Potassium ABG Chloride ABG Glucose VBG pH Oxyhemoglobin Carboxyhemoglobin Sodium Potassium Chloride Carbon Dioxide BUN Creatinine Glucose POC Glucose Lactic Acid 9.80 H* Calcium Phosphorus Magnesium Total Bilirubin Direct Bilirubin AST ALT Alkaline Phosphatase Ammonia Total Creatine Kinase C-Reactive Protein Total Protein Albumin Lipase Arterial Blood Glucose Arterial Blood Ionized Calcium Urine WBC (Auto) U Epithel Cells (Auto) Acetaminophen Complement C3 Complement C4 Syphilis IgG Antibody Reactive A HSV I Specific Ab Crossmatch 07/17/20 07/17/20 07/17/20 11:08 14:34 14:34 WBC 27.2 H RBC 2.66 L Hgb 9.1 L D Hct 27.8 L D MCV 104 H MCH 34 H MCHC RDW 22.6 H Plt Count Lymph % (Auto) [place] % (Auto) Lymph # (Auto) [place] # (Auto) Eos # (Auto) Seg Neutrophils % Seg Neuts % (Manual) Lymphocytes % (Manual) Monocytes % (Manual) Nucleated RBC % Seg Neutrophils # Seg Neutrophils # Man Lymphocytes # (Manual) Monocytes # (Manual) Eosinophils # (Manual) PT INR ABG pH POC ABG pCO2 POC ABG pO2 ABG pO2 ABG Base Excess ABG Hemoglobin ABG Oxyhemoglobin ABG Sodium ABG Potassium ABG Chloride ABG Glucose VBG pH Oxyhemoglobin Carboxyhemoglobin Sodium Potassium 5.4 H Chloride 107.7 H Carbon Dioxide 16 L BUN 26 H Creatinine 2.3 H Glucose 151 H POC Glucose Lactic Acid Calcium 5.8 L* Phosphorus Magnesium Total Bilirubin 3.30 H Direct Bilirubin AST 6751 H ALT 1325 H Alkaline Phosphatase Ammonia Total Creatine Kinase C-Reactive Protein Total Protein 4.4 L Albumin 2.5 L Lipase Arterial Blood Glucose Arterial Blood Ionized Calcium Urine WBC (Auto) U Epithel Cells (Auto) Acetaminophen Complement C3 Complement C4 Syphilis IgG Antibody HSV I Specific Ab 5.23 H Crossmatch 07/17/20 07/17/20 07/17/20 14:34 14:34 14:34 WBC RBC Hgb Hct MCV MCH MCHC RDW Plt Count Lymph % (Auto) [place] % (Auto) Lymph # (Auto) [place] # (Auto) Eos # (Auto) Seg Neutrophils % Seg Neuts % (Manual) Lymphocytes % (Manual) Monocytes % (Manual) Nucleated RBC % Seg Neutrophils # Seg Neutrophils # Man Lymphocytes # (Manual) Monocytes # (Manual) Eosinophils # (Manual) PT 70.6 H INR 8.29 H* ABG pH POC ABG pCO2 POC ABG pO2 ABG pO2 ABG Base Excess ABG Hemoglobin ABG Oxyhemoglobin ABG Sodium ABG Potassium ABG Chloride ABG Glucose VBG pH Oxyhemoglobin Carboxyhemoglobin Sodium Potassium Chloride Carbon Dioxide BUN Creatinine Glucose POC Glucose Lactic Acid 7.60 H* Calcium Phosphorus Magnesium Total Bilirubin Direct Bilirubin AST ALT Alkaline Phosphatase Ammonia 75.0 H Total Creatine Kinase C-Reactive Protein Total Protein Albumin Lipase Arterial Blood Glucose Arterial Blood Ionized Calcium Urine WBC (Auto) U Epithel Cells (Auto) Acetaminophen Complement C3 Complement C4 Syphilis IgG Antibody HSV I Specific Ab Crossmatch 07/17/20 07/17/20 07/18/20 16:45 16:45 04:23 WBC 22.7 H RBC 2.47 L Hgb 8.5 L Hct 25.5 L MCV 103 H MCH 35 H MCHC RDW 21.7 H Plt Count Lymph % (Auto) 5.3 L [place] % (Auto) Lymph # (Auto) [place] # (Auto) Eos # (Auto) 0.7 H Seg Neutrophils % 88.2 H Seg Neuts % (Manual) Lymphocytes % (Manual) Monocytes % (Manual) Nucleated RBC % Seg Neutrophils # 20.0 H Seg Neutrophils # Man Lymphocytes # (Manual) Monocytes # (Manual) Eosinophils # (Manual) PT INR ABG pH POC ABG pCO2 POC ABG pO2 ABG pO2 ABG Base Excess ABG Hemoglobin ABG Oxyhemoglobin ABG Sodium ABG Potassium ABG Chloride ABG Glucose VBG pH Oxyhemoglobin Carboxyhemoglobin Sodium Potassium Chloride 107.9 H Carbon Dioxide 17 L BUN 27 H Creatinine 2.5 H Glucose 144 H POC Glucose Lactic Acid 7.00 H* Calcium 6.0 L Phosphorus Magnesium Total Bilirubin 3.30 H Direct Bilirubin AST 6456 H ALT 1286 H Alkaline Phosphatase Ammonia Total Creatine Kinase C-Reactive Protein Total Protein 4.2 L Albumin 2.5 L Lipase Arterial Blood Glucose Arterial Blood Ionized Calcium Urine WBC (Auto) U Epithel Cells (Auto) Acetaminophen Complement C3 Complement C4 Syphilis IgG Antibody HSV I Specific Ab Crossmatch 07/18/20 07/18/20 07/18/20 04:23 04:23 04:23 WBC RBC Hgb Hct MCV MCH MCHC RDW Plt Count Lymph % (Auto) [place] % (Auto) Lymph # (Auto) [place] # (Auto) Eos # (Auto) Seg Neutrophils % Seg Neuts % (Manual) Lymphocytes % (Manual) Monocytes % (Manual) Nucleated RBC % Seg Neutrophils # Seg Neutrophils # Man Lymphocytes # (Manual) Monocytes # (Manual) Eosinophils # (Manual) PT 52.9 H INR 5.78 H* ABG pH POC ABG pCO2 POC ABG pO2 ABG pO2 ABG Base Excess ABG Hemoglobin ABG Oxyhemoglobin ABG Sodium ABG Potassium ABG Chloride ABG Glucose VBG pH Oxyhemoglobin Carboxyhemoglobin Sodium Potassium Chloride 110.0 H Carbon Dioxide 17 L BUN 33 H Creatinine 3.0 H Glucose 110 H POC Glucose Lactic Acid 5.40 H* Calcium 6.4 L Phosphorus Magnesium Total Bilirubin Direct Bilirubin AST ALT Alkaline Phosphatase Ammonia Total Creatine Kinase C-Reactive Protein Total Protein Albumin Lipase Arterial Blood Glucose Arterial Blood Ionized Calcium Urine WBC (Auto) U Epithel Cells (Auto) Acetaminophen Complement C3 Complement C4 Syphilis IgG Antibody HSV I Specific Ab Crossmatch 07/18/20 07/18/20 07/18/20 04:23 07:25 Unknown WBC RBC Hgb Hct MCV MCH MCHC RDW Plt Count Lymph % (Auto) [place] % (Auto) Lymph # (Auto) [place] # (Auto) Eos # (Auto) Seg Neutrophils % Seg Neuts % (Manual) Lymphocytes % (Manual) Monocytes % (Manual) Nucleated RBC % Seg Neutrophils # Seg Neutrophils # Man Lymphocytes # (Manual) Monocytes # (Manual) Eosinophils # (Manual) PT INR ABG pH POC ABG pCO2 POC ABG pO2 ABG pO2 ABG Base Excess ABG Hemoglobin ABG Oxyhemoglobin ABG Sodium ABG Potassium ABG Chloride ABG Glucose VBG pH Oxyhemoglobin Carboxyhemoglobin Sodium Potassium Chloride Carbon Dioxide BUN Creatinine Glucose POC Glucose Lactic Acid 5.50 H* 4.80 H* Calcium Phosphorus Magnesium Total Bilirubin Direct Bilirubin AST ALT Alkaline Phosphatase Ammonia 96.0 H Total Creatine Kinase C-Reactive Protein Total Protein Albumin Lipase Arterial Blood Glucose Arterial Blood Ionized Calcium Urine WBC (Auto) U Epithel Cells (Auto) Acetaminophen Complement C3 Complement C4 Syphilis IgG Antibody HSV I Specific Ab Crossmatch 07/18/20 07/18/20 07/19/20 Unknown Unknown 02:47 WBC RBC Hgb Hct MCV MCH MCHC RDW Plt Count Lymph % (Auto) [place] % (Auto) Lymph # (Auto) [place] # (Auto) Eos # (Auto) Seg Neutrophils % Seg Neuts % (Manual) Lymphocytes % (Manual) Monocytes % (Manual) Nucleated RBC % Seg Neutrophils # Seg Neutrophils # Man Lymphocytes # (Manual) Monocytes # (Manual) Eosinophils # (Manual) PT 37.3 H INR 3.73 H ABG pH POC ABG pCO2 21.1 L POC ABG pO2 61.7 L ABG pO2 ABG Base Excess ABG Hemoglobin 8.5 L ABG Oxyhemoglobin 88.1 L ABG Sodium ABG Potassium ABG Chloride 119.0 H ABG Glucose VBG pH Oxyhemoglobin Carboxyhemoglobin Sodium Potassium Chloride Carbon Dioxide BUN Creatinine Glucose POC Glucose Lactic Acid Calcium Phosphorus Magnesium Total Bilirubin 3.70 H Direct Bilirubin 3.0 H AST 2093 H ALT 822 H Alkaline Phosphatase Ammonia Total Creatine Kinase C-Reactive Protein Total Protein 4.0 L Albumin 2.5 L Lipase Arterial Blood Glucose Arterial Blood Ionized Calcium 4.0 L Urine WBC (Auto) U Epithel Cells (Auto) Acetaminophen Complement C3 Complement C4 Syphilis IgG Antibody HSV I Specific Ab Crossmatch 07/19/20 07/19/20 07/19/20 03:01 03:01 03:01 WBC 19.4 H RBC 2.50 L Hgb 8.5 L Hct 26.1 L MCV 104 H MCH 34 H MCHC RDW 22.3 H Plt Count Lymph % (Auto) 3.7 L [place] % (Auto) Lymph # (Auto) 0.7 L [place] # (Auto) 0.9 H Eos # (Auto) Seg Neutrophils % Seg Neuts % (Manual) Lymphocytes % (Manual) Monocytes % (Manual) Nucleated RBC % Seg Neutrophils # 17.7 H Seg Neutrophils # Man Lymphocytes # (Manual) Monocytes # (Manual) Eosinophils # (Manual) PT 35.0 H INR 3.45 H ABG pH POC ABG pCO2 POC ABG pO2 ABG pO2 ABG Base Excess ABG Hemoglobin ABG Oxyhemoglobin ABG Sodium ABG Potassium ABG Chloride ABG Glucose VBG pH Oxyhemoglobin Carboxyhemoglobin Sodium Potassium Chloride Carbon Dioxide BUN Creatinine Glucose POC Glucose Lactic Acid 5.90 H* Calcium Phosphorus Magnesium Total Bilirubin Direct Bilirubin AST ALT Alkaline Phosphatase Ammonia Total Creatine Kinase C-Reactive Protein Total Protein Albumin Lipase Arterial Blood Glucose Arterial Blood Ionized Calcium Urine WBC (Auto) U Epithel Cells (Auto) Acetaminophen Complement C3 Complement C4 Syphilis IgG Antibody HSV I Specific Ab Crossmatch 07/19/20 07/19/20 07/19/20 03:01 03:01 05:25 WBC RBC Hgb Hct MCV MCH MCHC RDW Plt Count Lymph % (Auto) [place] % (Auto) Lymph # (Auto) [place] # (Auto) Eos # (Auto) Seg Neutrophils % Seg Neuts % (Manual) Lymphocytes % (Manual) Monocytes % (Manual) Nucleated RBC % Seg Neutrophils # Seg Neutrophils # Man Lymphocytes # (Manual) Monocytes # (Manual) Eosinophils # (Manual) PT INR ABG pH POC ABG pCO2 POC ABG pO2 ABG pO2 ABG Base Excess ABG Hemoglobin ABG Oxyhemoglobin ABG Sodium ABG Potassium ABG Chloride ABG Glucose VBG pH Oxyhemoglobin Carboxyhemoglobin Sodium 149 H Potassium Chloride 116.6 H Carbon Dioxide 14 L BUN 48 H Creatinine 2.5 H Glucose POC Glucose 43 L Lactic Acid Calcium 7.4 L D Phosphorus Magnesium Total Bilirubin 3.70 H Direct Bilirubin AST 1730 H ALT 751 H Alkaline Phosphatase Ammonia 126.0 H Total Creatine Kinase C-Reactive Protein Total Protein 4.3 L Albumin 2.4 L Lipase Arterial Blood Glucose Arterial Blood Ionized Calcium Urine WBC (Auto) U Epithel Cells (Auto) Acetaminophen Complement C3 Complement C4 Syphilis IgG Antibody HSV I Specific Ab Crossmatch 07/19/20 07/19/20 07/19/20 05:41 05:41 05:41 WBC 15.9 H RBC 1.80 L Hgb 6.2 L Hct 19.7 L* D MCV 109 H MCH 35 H MCHC RDW 22.7 H Plt Count 99 L Lymph % (Auto) 9.7 L [place] % (Auto) 8.3 H Lymph # (Auto) [place] # (Auto) 1.3 H Eos # (Auto) Seg Neutrophils % 81.2 H Seg Neuts % (Manual) 85.0 H Lymphocytes % (Manual) 12.0 L Monocytes % (Manual) Nucleated RBC % Seg Neutrophils # 12.9 H Seg Neutrophils # Man 13.5 H Lymphocytes # (Manual) Monocytes # (Manual) Eosinophils # (Manual) PT 51.8 H INR 5.63 H* ABG pH POC ABG pCO2 POC ABG pO2 ABG pO2 ABG Base Excess ABG Hemoglobin ABG Oxyhemoglobin ABG Sodium ABG Potassium ABG Chloride ABG Glucose VBG pH Oxyhemoglobin Carboxyhemoglobin Sodium 150 H Potassium Chloride 117.6 H Carbon Dioxide 10 L BUN 50 H Creatinine 2.8 H Glucose 308 H POC Glucose Lactic Acid Calcium 6.8 L Phosphorus Magnesium Total Bilirubin 2.20 H Direct Bilirubin AST 1224 H ALT 484 H Alkaline Phosphatase Ammonia Total Creatine Kinase C-Reactive Protein Total Protein 2.8 L D Albumin 1.6 L Lipase Arterial Blood Glucose Arterial Blood Ionized Calcium Urine WBC (Auto) U Epithel Cells (Auto) Acetaminophen Complement C3 Complement C4 Syphilis IgG Antibody HSV I Specific Ab Crossmatch 07/19/20 07/19/20 07/19/20 05:41 05:41 05:53 WBC RBC Hgb Hct MCV MCH MCHC RDW Plt Count Lymph % (Auto) [place] % (Auto) Lymph # (Auto) [place] # (Auto) Eos # (Auto) Seg Neutrophils % Seg Neuts % (Manual) Lymphocytes % (Manual) Monocytes % (Manual) Nucleated RBC % Seg Neutrophils # Seg Neutrophils # Man Lymphocytes # (Manual) Monocytes # (Manual) Eosinophils # (Manual) PT INR ABG pH POC ABG pCO2 POC ABG pO2 ABG pO2 ABG Base Excess ABG Hemoglobin ABG Oxyhemoglobin ABG Sodium ABG Potassium ABG Chloride ABG Glucose VBG pH Oxyhemoglobin Carboxyhemoglobin Sodium Potassium Chloride Carbon Dioxide BUN Creatinine Glucose POC Glucose 186 H Lactic Acid 12.00 H* Calcium Phosphorus Magnesium Total Bilirubin Direct Bilirubin AST ALT Alkaline Phosphatase Ammonia 96.0 H Total Creatine Kinase C-Reactive Protein Total Protein Albumin Lipase Arterial Blood Glucose Arterial Blood Ionized Calcium Urine WBC (Auto) U Epithel Cells (Auto) Acetaminophen Complement C3 Complement C4 Syphilis IgG Antibody HSV I Specific Ab Crossmatch 07/19/20 07/19/20 07/19/20 06:14 07:35 07:35 WBC RBC Hgb Hct MCV MCH MCHC RDW Plt Count Lymph % (Auto) [place] % (Auto) Lymph # (Auto) [place] # (Auto) Eos # (Auto) Seg Neutrophils % Seg Neuts % (Manual) Lymphocytes % (Manual) Monocytes % (Manual) Nucleated RBC % Seg Neutrophils # Seg Neutrophils # Man Lymphocytes # (Manual) Monocytes # (Manual) Eosinophils # (Manual) PT INR ABG pH 6.904 L POC ABG pCO2 50.8 H POC ABG pO2 140.1 H ABG pO2 ABG Base Excess ABG Hemoglobin 7.9 L ABG Oxyhemoglobin ABG Sodium ABG Potassium ABG Chloride 120.0 H ABG Glucose 220 H VBG pH Oxyhemoglobin Carboxyhemoglobin 1.7 H Sodium Potassium Chloride Carbon Dioxide BUN Creatinine Glucose POC Glucose Lactic Acid 8.50 H* Calcium Phosphorus Magnesium Total Bilirubin Direct Bilirubin AST ALT Alkaline Phosphatase Ammonia Total Creatine Kinase C-Reactive Protein Total Protein Albumin Lipase Arterial Blood Glucose 220 H Arterial Blood Ionized Calcium 4.1 L Urine WBC (Auto) U Epithel Cells (Auto) Acetaminophen Complement C3 Complement C4 Syphilis IgG Antibody HSV I Specific Ab Crossmatch See Detail 07/19/20 07/19/20 07/19/20 12:45 22:54 Unknown WBC 26.7 H RBC 2.68 L Hgb 9.0 L Hct 26.8 L D MCV 100 H MCH 34 H MCHC RDW 20.2 H Plt Count 104 L Lymph % (Auto) [place] % (Auto) Lymph # (Auto) [place] # (Auto) Eos # (Auto) Seg Neutrophils % Seg Neuts % (Manual) Lymphocytes % (Manual) 6.0 L Monocytes % (Manual) 8.0 H Nucleated RBC % Seg Neutrophils # Seg Neutrophils # Man 17.6 H Lymphocytes # (Manual) Monocytes # (Manual) 2.1 H Eosinophils # (Manual) PT INR ABG pH POC ABG pCO2 POC ABG pO2 ABG pO2 ABG Base Excess ABG Hemoglobin ABG Oxyhemoglobin ABG Sodium ABG Potassium ABG Chloride ABG Glucose VBG pH Oxyhemoglobin Carboxyhemoglobin Sodium Potassium Chloride Carbon Dioxide BUN Creatinine Glucose POC Glucose 121 H Lactic Acid 6.20 H* Calcium Phosphorus Magnesium Total Bilirubin Direct Bilirubin AST ALT Alkaline Phosphatase Ammonia Total Creatine Kinase C-Reactive Protein Total Protein Albumin Lipase Arterial Blood Glucose Arterial Blood Ionized Calcium Urine WBC (Auto) U Epithel Cells (Auto) Acetaminophen Complement C3 Complement C4 Syphilis IgG Antibody HSV I Specific Ab Crossmatch 07/19/20 07/19/20 07/19/20 Unknown Unknown Unknown WBC RBC Hgb Hct MCV MCH MCHC RDW Plt Count Lymph % (Auto) [place] % (Auto) Lymph # (Auto) [place] # (Auto) Eos # (Auto) Seg Neutrophils % Seg Neuts % (Manual) Lymphocytes % (Manual) Monocytes % (Manual) Nucleated RBC % Seg Neutrophils # Seg Neutrophils # Man Lymphocytes # (Manual) Monocytes # (Manual) Eosinophils # (Manual) PT 33.4 H INR 3.25 H ABG pH POC ABG pCO2 POC ABG pO2 ABG pO2 ABG Base Excess ABG Hemoglobin ABG Oxyhemoglobin ABG Sodium ABG Potassium ABG Chloride ABG Glucose VBG pH Oxyhemoglobin Carboxyhemoglobin Sodium 148 H Potassium 2.6 L* D Chloride 117.3 H Carbon Dioxide 18 L D BUN 48 H Creatinine 2.4 H Glucose 207 H POC Glucose Lactic Acid 3.90 H* Calcium 6.5 L Phosphorus Magnesium Total Bilirubin 3.80 H Direct Bilirubin AST 1228 H ALT 516 H Alkaline Phosphatase Ammonia Total Creatine Kinase C-Reactive Protein Total Protein 3.6 L D Albumin 1.9 L Lipase Arterial Blood Glucose Arterial Blood Ionized Calcium Urine WBC (Auto) U Epithel Cells (Auto) Acetaminophen Complement C3 Complement C4 Syphilis IgG Antibody HSV I Specific Ab Crossmatch 07/20/20 07/20/20 07/20/20 02:41 05:04 06:39 WBC RBC Hgb Hct MCV MCH MCHC RDW Plt Count Lymph % (Auto) [place] % (Auto) Lymph # (Auto) [place] # (Auto) Eos # (Auto) Seg Neutrophils % Seg Neuts % (Manual) Lymphocytes % (Manual) Monocytes % (Manual) Nucleated RBC % Seg Neutrophils # Seg Neutrophils # Man Lymphocytes # (Manual) Monocytes # (Manual) Eosinophils # (Manual) PT INR ABG pH POC ABG pCO2 POC ABG pO2 64.7 L ABG pO2 ABG Base Excess ABG Hemoglobin 8.8 L ABG Oxyhemoglobin 91.0 L ABG Sodium ABG Potassium 2.6 L ABG Chloride 116.0 H ABG Glucose 143 H VBG pH Oxyhemoglobin Carboxyhemoglobin 2.0 H Sodium Potassium Chloride Carbon Dioxide BUN Creatinine Glucose POC Glucose 141 H 123 H Lactic Acid Calcium Phosphorus Magnesium Total Bilirubin Direct Bilirubin AST ALT Alkaline Phosphatase Ammonia Total Creatine Kinase C-Reactive Protein Total Protein Albumin Lipase Arterial Blood Glucose 143 H Arterial Blood Ionized Calcium 3.9 L Urine WBC (Auto) U Epithel Cells (Auto) Acetaminophen Complement C3 Complement C4 Syphilis IgG Antibody HSV I Specific Ab Crossmatch 07/20/20 07/20/20 07/20/20 10:42 11:07 11:07 WBC 27.7 H RBC 2.50 L Hgb 8.4 L Hct 24.4 L MCV 98 H MCH 34 H MCHC 35 H RDW 19.8 H Plt Count 78 L Lymph % (Auto) [place] % (Auto) Lymph # (Auto) [place] # (Auto) Eos # (Auto) Seg Neutrophils % Seg Neuts % (Manual) Lymphocytes % (Manual) Monocytes % (Manual) Nucleated RBC % Seg Neutrophils # Seg Neutrophils # Man Lymphocytes # (Manual) Monocytes # (Manual) Eosinophils # (Manual) PT INR ABG pH POC ABG pCO2 POC ABG pO2 113.1 H ABG pO2 ABG Base Excess ABG Hemoglobin 8.8 L ABG Oxyhemoglobin ABG Sodium ABG Potassium 2.9 L ABG Chloride 114.0 H ABG Glucose 135 H VBG pH Oxyhemoglobin Carboxyhemoglobin 1.9 H Sodium 147 H Potassium Chloride 114.2 H Carbon Dioxide BUN 52 H Creatinine 1.8 H Glucose 143 H POC Glucose Lactic Acid Calcium 6.5 L Phosphorus Magnesium Total Bilirubin Direct Bilirubin AST ALT Alkaline Phosphatase Ammonia Total Creatine Kinase C-Reactive Protein Total Protein Albumin Lipase Arterial Blood Glucose 135 H Arterial Blood Ionized Calcium 3.8 L Urine WBC (Auto) U Epithel Cells (Auto) Acetaminophen Complement C3 Complement C4 Syphilis IgG Antibody HSV I Specific Ab Crossmatch 07/20/20 07/21/20 07/21/20 15:05 00:03 02:07 WBC RBC Hgb Hct MCV MCH MCHC RDW Plt Count Lymph % (Auto) [place] % (Auto) Lymph # (Auto) [place] # (Auto) Eos # (Auto) Seg Neutrophils % Seg Neuts % (Manual) Lymphocytes % (Manual) Monocytes % (Manual) Nucleated RBC % Seg Neutrophils # Seg Neutrophils # Man Lymphocytes # (Manual) Monocytes # (Manual) Eosinophils # (Manual) PT INR ABG pH POC ABG pCO2 POC ABG pO2 ABG pO2 ABG Base Excess ABG Hemoglobin ABG Oxyhemoglobin ABG Sodium ABG Potassium ABG Chloride ABG Glucose VBG pH Oxyhemoglobin Carboxyhemoglobin Sodium 146 H Potassium 2.8 L* 3.1 L Chloride 112.1 H Carbon Dioxide BUN 54 H Creatinine 1.9 H Glucose 107 H POC Glucose 145 H Lactic Acid Calcium 6.8 L Phosphorus Magnesium 0.90 L* Total Bilirubin Direct Bilirubin AST ALT Alkaline Phosphatase Ammonia Total Creatine Kinase C-Reactive Protein Total Protein Albumin Lipase Arterial Blood Glucose Arterial Blood Ionized Calcium Urine WBC (Auto) U Epithel Cells (Auto) Acetaminophen Complement C3 Complement C4 Syphilis IgG Antibody HSV I Specific Ab Crossmatch 07/21/20 07/21/20 07/21/20 03:42 05:21 10:59 WBC RBC Hgb Hct MCV MCH MCHC RDW Plt Count Lymph % (Auto) [place] % (Auto) Lymph # (Auto) [place] # (Auto) Eos # (Auto) Seg Neutrophils % Seg Neuts % (Manual) Lymphocytes % (Manual) Monocytes % (Manual) Nucleated RBC % Seg Neutrophils # Seg Neutrophils # Man Lymphocytes # (Manual) Monocytes # (Manual) Eosinophils # (Manual) PT INR ABG pH POC ABG pCO2 POC ABG pO2 ABG pO2 98.2 H ABG Base Excess -3.8 L ABG Hemoglobin 8.7 L ABG Oxyhemoglobin ABG Sodium ABG Potassium ABG Chloride ABG Glucose VBG pH Oxyhemoglobin 94.6 L Carboxyhemoglobin Sodium Potassium Chloride Carbon Dioxide BUN Creatinine Glucose POC Glucose 150 H 161 H Lactic Acid Calcium Phosphorus Magnesium Total Bilirubin Direct Bilirubin AST ALT Alkaline Phosphatase Ammonia Total Creatine Kinase C-Reactive Protein Total Protein Albumin Lipase Arterial Blood Glucose Arterial Blood Ionized Calcium Urine WBC (Auto) U Epithel Cells (Auto) Acetaminophen Complement C3 Complement C4 Syphilis IgG Antibody HSV I Specific Ab Crossmatch 07/21/20 07/21/20 07/21/20 13:59 16:14 17:22 WBC RBC Hgb Hct MCV MCH MCHC RDW Plt Count Lymph % (Auto) [place] % (Auto) Lymph # (Auto) [place] # (Auto) Eos # (Auto) Seg Neutrophils % Seg Neuts % (Manual) Lymphocytes % (Manual) Monocytes % (Manual) Nucleated RBC % Seg Neutrophils # Seg Neutrophils # Man Lymphocytes # (Manual) Monocytes # (Manual) Eosinophils # (Manual) PT INR ABG pH POC ABG pCO2 POC ABG pO2 ABG pO2 ABG Base Excess ABG Hemoglobin ABG Oxyhemoglobin ABG Sodium ABG Potassium ABG Chloride ABG Glucose VBG pH Oxyhemoglobin Carboxyhemoglobin Sodium Potassium 3.0 L Chloride 112.5 H Carbon Dioxide 16 L D BUN 48 H Creatinine Glucose 157 H POC Glucose 164 H 171 H Lactic Acid Calcium 7.3 L Phosphorus Magnesium Total Bilirubin Direct Bilirubin AST ALT Alkaline Phosphatase Ammonia Total Creatine Kinase C-Reactive Protein Total Protein Albumin Lipase Arterial Blood Glucose Arterial Blood Ionized Calcium Urine WBC (Auto) U Epithel Cells (Auto) Acetaminophen Complement C3 Complement C4 Syphilis IgG Antibody HSV I Specific Ab Crossmatch 07/21/20 07/22/20 07/22/20 20:06 04:25 07:57 WBC 28.9 H RBC 2.35 L Hgb 8.0 L Hct 22.2 L MCV MCH 34 H MCHC 36 H RDW 20.5 H Plt Count 41 L Lymph % (Auto) [place] % (Auto) Lymph # (Auto) [place] # (Auto) Eos # (Auto) Seg Neutrophils % Seg Neuts % (Manual) 83.0 H Lymphocytes % (Manual) 6.0 L Monocytes % (Manual) Nucleated RBC % 2.0 H Seg Neutrophils # Seg Neutrophils # Man 24.0 H Lymphocytes # (Manual) Monocytes # (Manual) 1.4 H Eosinophils # (Manual) 0.6 H PT INR ABG pH 7.500 H POC ABG pCO2 POC ABG pO2 ABG pO2 104.9 H ABG Base Excess ABG Hemoglobin 8.6 L ABG Oxyhemoglobin ABG Sodium ABG Potassium ABG Chloride ABG Glucose VBG pH Oxyhemoglobin Carboxyhemoglobin Sodium Potassium Chloride Carbon Dioxide BUN Creatinine Glucose POC Glucose 128 H Lactic Acid Calcium Phosphorus Magnesium Total Bilirubin Direct Bilirubin AST ALT Alkaline Phosphatase Ammonia Total Creatine Kinase C-Reactive Protein Total Protein Albumin Lipase Arterial Blood Glucose Arterial Blood Ionized Calcium Urine WBC (Auto) U Epithel Cells (Auto) Acetaminophen Complement C3 Complement C4 Syphilis IgG Antibody HSV I Specific Ab Crossmatch 07/22/20 07/22/20 07/22/20 07:57 07:57 12:08 WBC RBC Hgb Hct MCV MCH MCHC RDW Plt Count Lymph % (Auto) [place] % (Auto) Lymph # (Auto) [place] # (Auto) Eos # (Auto) Seg Neutrophils % Seg Neuts % (Manual) Lymphocytes % (Manual) Monocytes % (Manual) Nucleated RBC % Seg Neutrophils # Seg Neutrophils # Man Lymphocytes # (Manual) Monocytes # (Manual) Eosinophils # (Manual) PT 21.6 H INR 1.87 H ABG pH POC ABG pCO2 POC ABG pO2 ABG pO2 ABG Base Excess ABG Hemoglobin ABG Oxyhemoglobin ABG Sodium ABG Potassium ABG Chloride ABG Glucose VBG pH Oxyhemoglobin Carboxyhemoglobin Sodium 147 H D Potassium 2.6 L* Chloride 112.7 H Carbon Dioxide BUN 51 H Creatinine Glucose 104 H POC Glucose Lactic Acid Calcium 7.8 L Phosphorus 1.10 L Magnesium 1.50 L Total Bilirubin 9.80 H 11.10 H Direct Bilirubin 8.8 H AST 234 H 231 H ALT 297 H 286 H Alkaline Phosphatase 296 H 323 H Ammonia Total Creatine Kinase C-Reactive Protein Total Protein 4.1 L 3.6 L Albumin 1.8 L 2.0 L Lipase Arterial Blood Glucose Arterial Blood Ionized Calcium Urine WBC (Auto) U Epithel Cells (Auto) Acetaminophen Complement C3 Complement C4 Syphilis IgG Antibody HSV I Specific Ab Crossmatch 07/23/20 07/23/20 07/23/20 01:53 02:51 07:38 WBC RBC Hgb Hct MCV MCH MCHC RDW Plt Count Lymph % (Auto) [place] % (Auto) Lymph # (Auto) [place] # (Auto) Eos # (Auto) Seg Neutrophils % Seg Neuts % (Manual) Lymphocytes % (Manual) Monocytes % (Manual) Nucleated RBC % Seg Neutrophils # Seg Neutrophils # Man Lymphocytes # (Manual) Monocytes # (Manual) Eosinophils # (Manual) PT INR ABG pH 7.313 L POC ABG pCO2 POC ABG pO2 67.0 L ABG pO2 ABG Base Excess ABG Hemoglobin ABG Oxyhemoglobin ABG Sodium ABG Potassium 3.2 L ABG Chloride 115.0 H ABG Glucose VBG pH Oxyhemoglobin Carboxyhemoglobin Sodium Potassium Chloride Carbon Dioxide BUN Creatinine Glucose POC Glucose 64 L 62 L Lactic Acid Calcium Phosphorus Magnesium Total Bilirubin Direct Bilirubin AST ALT Alkaline Phosphatase Ammonia Total Creatine Kinase C-Reactive Protein Total Protein Albumin Lipase Arterial Blood Glucose Arterial Blood Ionized Calcium 4.3 L Urine WBC (Auto) U Epithel Cells (Auto) Acetaminophen Complement C3 Complement C4 Syphilis IgG Antibody HSV I Specific Ab Crossmatch 07/23/20 07/23/20 07/23/20 07:39 07:39 23:52 WBC 37.0 H RBC 2.30 L Hgb 7.8 L Hct 22.5 L MCV 98 H MCH 34 H MCHC 35 H RDW 21.3 H Plt Count 55 L Lymph % (Auto) [place] % (Auto) Lymph # (Auto) [place] # (Auto) Eos # (Auto) Seg Neutrophils % Seg Neuts % (Manual) 78.0 H Lymphocytes % (Manual) 10.0 L Monocytes % (Manual) Nucleated RBC % 3.0 H Seg Neutrophils # Seg Neutrophils # Man 28.9 H Lymphocytes # (Manual) Monocytes # (Manual) 1.1 H Eosinophils # (Manual) 0.7 H PT INR ABG pH POC ABG pCO2 POC ABG pO2 ABG pO2 ABG Base Excess ABG Hemoglobin ABG Oxyhemoglobin ABG Sodium ABG Potassium ABG Chloride ABG Glucose VBG pH Oxyhemoglobin Carboxyhemoglobin Sodium 148 H Potassium Chloride 114.0 H Carbon Dioxide BUN 59 H Creatinine 1.5 H Glucose POC Glucose Lactic Acid Calcium 7.7 L Phosphorus 4.60 H D Magnesium Total Bilirubin 11.20 H Direct Bilirubin AST 245 H ALT 242 H Alkaline Phosphatase 423 H Ammonia Total Creatine Kinase C-Reactive Protein 17.20 H Total Protein 4.3 L Albumin 1.8 L Lipase Arterial Blood Glucose Arterial Blood Ionized Calcium Urine WBC (Auto) U Epithel Cells (Auto) Acetaminophen Complement C3 Complement C4 Syphilis IgG Antibody HSV I Specific Ab Crossmatch 07/23/20 07/23/20 07/23/20 23:52 23:52 Unknown WBC RBC Hgb Hct MCV MCH MCHC RDW Plt Count Lymph % (Auto) [place] % (Auto) Lymph # (Auto) [place] # (Auto) Eos # (Auto) Seg Neutrophils % Seg Neuts % (Manual) Lymphocytes % (Manual) Monocytes % (Manual) Nucleated RBC % Seg Neutrophils # Seg Neutrophils # Man Lymphocytes # (Manual) Monocytes # (Manual) Eosinophils # (Manual) PT INR ABG pH POC ABG pCO2 POC ABG pO2 ABG pO2 ABG Base Excess ABG Hemoglobin ABG Oxyhemoglobin ABG Sodium ABG Potassium ABG Chloride ABG Glucose VBG pH Oxyhemoglobin Carboxyhemoglobin Sodium Potassium Chloride Carbon Dioxide BUN Creatinine Glucose POC Glucose Lactic Acid Calcium Phosphorus Magnesium Total Bilirubin Direct Bilirubin AST ALT Alkaline Phosphatase Ammonia Total Creatine Kinase C-Reactive Protein Total Protein Albumin Lipase Arterial Blood Glucose Arterial Blood Ionized Calcium Urine WBC (Auto) 102.0 H U Epithel Cells (Auto) Acetaminophen Complement C3 55 L Complement C4 11 L Syphilis IgG Antibody HSV I Specific Ab Crossmatch 07/24/20 07/24/20 07/24/20 03:39 10:14 10:14 WBC RBC Hgb Hct MCV MCH MCHC RDW Plt Count Lymph % (Auto) [place] % (Auto) Lymph # (Auto) [place] # (Auto) Eos # (Auto) Seg Neutrophils % Seg Neuts % (Manual) Lymphocytes % (Manual) Monocytes % (Manual) Nucleated RBC % Seg Neutrophils # Seg Neutrophils # Man Lymphocytes # (Manual) Monocytes # (Manual) Eosinophils # (Manual) PT INR ABG pH POC ABG pCO2 POC ABG pO2 147.8 H ABG pO2 ABG Base Excess ABG Hemoglobin 5.5 L ABG Oxyhemoglobin ABG Sodium ABG Potassium 3.0 L ABG Chloride 117.0 H ABG Glucose VBG pH Oxyhemoglobin Carboxyhemoglobin Sodium 150 H Potassium 2.6 L* D Chloride 117.1 H Carbon Dioxide BUN 48 H Creatinine Glucose POC Glucose Lactic Acid Calcium 8.2 L Phosphorus 2.30 L D Magnesium 1.50 L Total Bilirubin Direct Bilirubin AST ALT Alkaline Phosphatase Ammonia Total Creatine Kinase C-Reactive Protein Total Protein Albumin Lipase Arterial Blood Glucose Arterial Blood Ionized Calcium Urine WBC (Auto) U Epithel Cells (Auto) Acetaminophen Complement C3 Complement C4 Syphilis IgG Antibody HSV I Specific Ab Crossmatch 07/24/20 07/24/20 07/24/20 10:14 10:14 21:31 WBC RBC Hgb Hct MCV MCH MCHC RDW Plt Count Lymph % (Auto) [place] % (Auto) Lymph # (Auto) [place] # (Auto) Eos # (Auto) Seg Neutrophils % Seg Neuts % (Manual) Lymphocytes % (Manual) Monocytes % (Manual) Nucleated RBC % Seg Neutrophils # Seg Neutrophils # Man Lymphocytes # (Manual) Monocytes # (Manual) Eosinophils # (Manual) PT 22.7 H INR 1.99 H ABG pH POC ABG pCO2 POC ABG pO2 ABG pO2 ABG Base Excess ABG Hemoglobin ABG Oxyhemoglobin ABG Sodium ABG Potassium ABG Chloride ABG Glucose VBG pH Oxyhemoglobin Carboxyhemoglobin Sodium Potassium Chloride Carbon Dioxide BUN Creatinine Glucose POC Glucose 59 L Lactic Acid Calcium Phosphorus Magnesium Total Bilirubin 10.30 H Direct Bilirubin 7.8 H AST 144 H ALT 129 H Alkaline Phosphatase 308 H Ammonia Total Creatine Kinase C-Reactive Protein Total Protein 4.2 L Albumin 2.4 L Lipase Arterial Blood Glucose Arterial Blood Ionized Calcium Urine WBC (Auto) U Epithel Cells (Auto) Acetaminophen Complement C3 Complement C4 Syphilis IgG Antibody HSV I Specific Ab Crossmatch 07/25/20 07/25/20 07/25/20 05:19 05:20 08:38 WBC RBC Hgb Hct MCV MCH MCHC RDW Plt Count Lymph % (Auto) [place] % (Auto) Lymph # (Auto) [place] # (Auto) Eos # (Auto) Seg Neutrophils % Seg Neuts % (Manual) Lymphocytes % (Manual) Monocytes % (Manual) Nucleated RBC % Seg Neutrophils # Seg Neutrophils # Man Lymphocytes # (Manual) Monocytes # (Manual) Eosinophils # (Manual) PT INR ABG pH 7.458 H POC ABG pCO2 POC ABG pO2 77.5 L ABG pO2 ABG Base Excess ABG Hemoglobin 8.5 L ABG Oxyhemoglobin 93.9 L ABG Sodium 147.8 H ABG Potassium 2.9 L ABG Chloride 118.0 H ABG Glucose VBG pH Oxyhemoglobin Carboxyhemoglobin 2.1 H Sodium Potassium Chloride Carbon Dioxide BUN Creatinine Glucose POC Glucose 55 L 107 H Lactic Acid Calcium Phosphorus Magnesium Total Bilirubin Direct Bilirubin AST ALT Alkaline Phosphatase Ammonia Total Creatine Kinase C-Reactive Protein Total Protein Albumin Lipase Arterial Blood Glucose Arterial Blood Ionized Calcium Urine WBC (Auto) U Epithel Cells (Auto) Acetaminophen Complement C3 Complement C4 Syphilis IgG Antibody HSV I Specific Ab Crossmatch 07/25/20 07/25/20 07/25/20 09:53 09:53 21:54 WBC RBC Hgb Hct MCV MCH MCHC RDW Plt Count Lymph % (Auto) [place] % (Auto) Lymph # (Auto) [place] # (Auto) Eos # (Auto) Seg Neutrophils % Seg Neuts % (Manual) Lymphocytes % (Manual) Monocytes % (Manual) Nucleated RBC % Seg Neutrophils # Seg Neutrophils # Man Lymphocytes # (Manual) Monocytes # (Manual) Eosinophils # (Manual) PT 22.3 H INR 1.94 H ABG pH POC ABG pCO2 POC ABG pO2 ABG pO2 ABG Base Excess ABG Hemoglobin ABG Oxyhemoglobin ABG Sodium ABG Potassium ABG Chloride ABG Glucose VBG pH Oxyhemoglobin Carboxyhemoglobin Sodium 154 H Potassium 2.8 L* Chloride 121.5 H Carbon Dioxide BUN 47 H Creatinine Glucose POC Glucose 112 H Lactic Acid Calcium Phosphorus Magnesium Total Bilirubin 11.60 H Direct Bilirubin AST 141 H ALT 115 H Alkaline Phosphatase 355 H Ammonia Total Creatine Kinase C-Reactive Protein Total Protein 4.3 L Albumin 2.2 L Lipase Arterial Blood Glucose Arterial Blood Ionized Calcium Urine WBC (Auto) U Epithel Cells (Auto) Acetaminophen Complement C3 Complement C4 Syphilis IgG Antibody HSV I Specific Ab Crossmatch 07/26/20 07/26/20 07/26/20 01:54 05:38 07:48 WBC RBC Hgb Hct MCV MCH MCHC RDW Plt Count Lymph % (Auto) [place] % (Auto) Lymph # (Auto) [place] # (Auto) Eos # (Auto) Seg Neutrophils % Seg Neuts % (Manual) Lymphocytes % (Manual) Monocytes % (Manual) Nucleated RBC % Seg Neutrophils # Seg Neutrophils # Man Lymphocytes # (Manual) Monocytes # (Manual) Eosinophils # (Manual) PT INR ABG pH POC ABG pCO2 POC ABG pO2 ABG pO2 ABG Base Excess ABG Hemoglobin ABG Oxyhemoglobin ABG Sodium ABG Potassium ABG Chloride ABG Glucose VBG pH Oxyhemoglobin Carboxyhemoglobin Sodium Potassium Chloride Carbon Dioxide BUN Creatinine Glucose POC Glucose 130 H 155 H 155 H Lactic Acid Calcium Phosphorus Magnesium Total Bilirubin Direct Bilirubin AST ALT Alkaline Phosphatase Ammonia Total Creatine Kinase C-Reactive Protein Total Protein Albumin Lipase Arterial Blood Glucose Arterial Blood Ionized Calcium Urine WBC (Auto) U Epithel Cells (Auto) Acetaminophen Complement C3 Complement C4 Syphilis IgG Antibody HSV I Specific Ab Crossmatch 07/26/20 07/26/20 07/26/20 11:31 14:47 14:47 WBC RBC Hgb Hct MCV MCH MCHC RDW Plt Count Lymph % (Auto) [place] % (Auto) Lymph # (Auto) [place] # (Auto) Eos # (Auto) Seg Neutrophils % Seg Neuts % (Manual) Lymphocytes % (Manual) Monocytes % (Manual) Nucleated RBC % Seg Neutrophils # Seg Neutrophils # Man Lymphocytes # (Manual) Monocytes # (Manual) Eosinophils # (Manual) PT 21.2 H INR 1.83 H ABG pH POC ABG pCO2 POC ABG pO2 ABG pO2 ABG Base Excess ABG Hemoglobin ABG Oxyhemoglobin ABG Sodium ABG Potassium ABG Chloride ABG Glucose VBG pH Oxyhemoglobin Carboxyhemoglobin Sodium 148 H Potassium 3.4 L D Chloride 118.2 H Carbon Dioxide BUN 42 H Creatinine Glucose 177 H POC Glucose 147 H Lactic Acid Calcium Phosphorus Magnesium Total Bilirubin Direct Bilirubin AST ALT Alkaline Phosphatase Ammonia Total Creatine Kinase C-Reactive Protein Total Protein Albumin Lipase Arterial Blood Glucose Arterial Blood Ionized Calcium Urine WBC (Auto) U Epithel Cells (Auto) Acetaminophen Complement C3 Complement C4 Syphilis IgG Antibody HSV I Specific Ab Crossmatch 07/26/20 07/26/20 07/26/20 14:47 16:57 21:36 WBC RBC Hgb Hct MCV MCH MCHC RDW Plt Count Lymph % (Auto) [place] % (Auto) Lymph # (Auto) [place] # (Auto) Eos # (Auto) Seg Neutrophils % Seg Neuts % (Manual) Lymphocytes % (Manual) Monocytes % (Manual) Nucleated RBC % Seg Neutrophils # Seg Neutrophils # Man Lymphocytes # (Manual) Monocytes # (Manual) Eosinophils # (Manual) PT INR ABG pH POC ABG pCO2 POC ABG pO2 ABG pO2 ABG Base Excess ABG Hemoglobin ABG Oxyhemoglobin ABG Sodium ABG Potassium ABG Chloride ABG Glucose VBG pH Oxyhemoglobin Carboxyhemoglobin Sodium Potassium Chloride Carbon Dioxide BUN Creatinine Glucose POC Glucose 149 H 129 H Lactic Acid Calcium Phosphorus Magnesium Total Bilirubin 11.30 H Direct Bilirubin 8.6 H AST 139 H ALT 109 H Alkaline Phosphatase 368 H Ammonia Total Creatine Kinase C-Reactive Protein Total Protein 4.1 L Albumin 2.3 L Lipase Arterial Blood Glucose Arterial Blood Ionized Calcium Urine WBC (Auto) U Epithel Cells (Auto) Acetaminophen Complement C3 Complement C4 Syphilis IgG Antibody HSV I Specific Ab Crossmatch 07/27/20 07/27/20 07/27/20 02:03 04:45 04:45 WBC 22.2 H RBC 1.95 L Hgb 6.5 L Hct 18.9 L* MCV MCH 34 H MCHC 35 H RDW 21.3 H Plt Count 29 L Lymph % (Auto) [place] % (Auto) Lymph # (Auto) [place] # (Auto) Eos # (Auto) Seg Neutrophils % Seg Neuts % (Manual) 82.0 H Lymphocytes % (Manual) 3.0 L Monocytes % (Manual) Nucleated RBC % Seg Neutrophils # Seg Neutrophils # Man 18.2 H Lymphocytes # (Manual) 0.7 L Monocytes # (Manual) Eosinophils # (Manual) PT INR ABG pH POC ABG pCO2 POC ABG pO2 ABG pO2 ABG Base Excess ABG Hemoglobin ABG Oxyhemoglobin ABG Sodium ABG Potassium ABG Chloride ABG Glucose VBG pH Oxyhemoglobin Carboxyhemoglobin Sodium 150 H Potassium 3.4 L Chloride 119.4 H Carbon Dioxide BUN 47 H Creatinine Glucose 137 H POC Glucose 134 H Lactic Acid Calcium Phosphorus Magnesium Total Bilirubin 9.60 H Direct Bilirubin AST 120 H ALT 89 H Alkaline Phosphatase 340 H Ammonia Total Creatine Kinase C-Reactive Protein Total Protein 3.7 L Albumin 2.1 L Lipase Arterial Blood Glucose Arterial Blood Ionized Calcium Urine WBC (Auto) U Epithel Cells (Auto) Acetaminophen Complement C3 Complement C4 Syphilis IgG Antibody HSV I Specific Ab Crossmatch 07/27/20 07/27/20 07/27/20 05:36 08:45 10:28 WBC RBC Hgb Hct MCV MCH MCHC RDW Plt Count Lymph % (Auto) [place] % (Auto) Lymph # (Auto) [place] # (Auto) Eos # (Auto) Seg Neutrophils % Seg Neuts % (Manual) Lymphocytes % (Manual) Monocytes % (Manual) Nucleated RBC % Seg Neutrophils # Seg Neutrophils # Man Lymphocytes # (Manual) Monocytes # (Manual) Eosinophils # (Manual) PT INR ABG pH POC ABG pCO2 POC ABG pO2 ABG pO2 ABG Base Excess ABG Hemoglobin ABG Oxyhemoglobin ABG Sodium ABG Potassium ABG Chloride ABG Glucose VBG pH Oxyhemoglobin Carboxyhemoglobin Sodium Potassium Chloride Carbon Dioxide BUN Creatinine Glucose POC Glucose 126 H 149 H Lactic Acid Calcium Phosphorus Magnesium Total Bilirubin Direct Bilirubin AST ALT Alkaline Phosphatase Ammonia Total Creatine Kinase C-Reactive Protein Total Protein Albumin Lipase Arterial Blood Glucose Arterial Blood Ionized Calcium Urine WBC (Auto) U Epithel Cells (Auto) Acetaminophen Complement C3 Complement C4 Syphilis IgG Antibody HSV I Specific Ab Crossmatch See Detail
--- NOTE | 2020-07-27 14:55 | Progress Note ---
Assessment and Plan Acute kidney injury possibly due to Hepatorenal Syndrome vs Ischemic ATN due to Septic Shock: Hypotension Septic Shock Metabolic Acidosis Hypernatremia Anemia Acute Liver Failure Nausea and vomiting UTI ? Syphilis Plan: -Labs reviewed, most recent serum Na level was 150 today, yesterday's serum Na level was 148 and was kept higher in the setting of cerebral edema and avoiding hyponatremia. -Neurology evaluated pt, MRI Brain ordered, follow up recs -Follow up family meeting and goals of care -RINA resolved -Replete potassium -Magnesium level pending -On pressors -On D10 infusion at 50 ml/hr for hypoglycemia -Anemia - pRBCs ordered -S/p Albumin -Monitor I/O's daily -Kenney Catheter: Yes -Intake= 1583 ml Output= 550 ml (Net= 1033 ml) -Renal plan d/w Dr Thapa Subjective Date of service: 07/27/20 Principal diagnosis: Acute Liver Injury Interval history: Pt seen in ICU intubated on ventilator, pt on two pressors Objective - Vital Signs Vital signs: Vital Signs - 12hr 07/27/20 07/27/20 07/27/20 03:01 03:15 03:31 Temperature Pulse Rate 48 L 47 L 47 L Pulse Rate [ From Monitor] Respiratory 18 18 17 Rate Blood Pressure 97/65 97/65 97/65 O2 Sat by Pulse 93 94 94 Oximetry 07/27/20 07/27/20 07/27/20 03:45 04:00 04:01 Temperature 95.0 F L Pulse Rate 47 L 48 L 48 L Pulse Rate [ From Monitor] Respiratory 18 18 Rate Blood Pressure 97/65 97/65 O2 Sat by Pulse 94 95 94 Oximetry 07/27/20 07/27/20 07/27/20 04:15 04:30 04:31 Temperature Pulse Rate 49 L 46 L Pulse Rate [ 48 L From Monitor] Respiratory 12 17 17 Rate Blood Pressure 97/65 128/104 O2 Sat by Pulse 93 94 93 Oximetry 07/27/20 07/27/20 07/27/20 04:45 05:01 05:15 Temperature Pulse Rate 46 L 46 L 46 L Pulse Rate [ From Monitor] Respiratory 17 15 17 Rate Blood Pressure 128/104 128/104 128/104 O2 Sat by Pulse 95 95 94 Oximetry 07/27/20 07/27/20 07/27/20 05:31 05:45 06:01 Temperature Pulse Rate 47 L 53 L 52 L Pulse Rate [ From Monitor] Respiratory 15 17 18 Rate Blood Pressure 128/104 128/104 146/116 O2 Sat by Pulse 93 97 93 Oximetry 07/27/20 07/27/20 07/27/20 06:15 06:31 06:45 Temperature Pulse Rate 55 L 57 L 62 Pulse Rate [ From Monitor] Respiratory 13 12 16 Rate Blood Pressure 146/116 146/116 180/119 O2 Sat by Pulse 95 95 Oximetry 07/27/20 07/27/20 07/27/20 07:00 07:15 07:31 Temperature Pulse Rate 62 61 59 L Pulse Rate [ From Monitor] Respiratory 14 13 16 Rate Blood Pressure 175/117 163/115 163/115 O2 Sat by Pulse 95 91 91 Oximetry 07/27/20 07/27/20 07/27/20 07:45 08:00 08:01 Temperature 95.0 F L Pulse Rate 59 L 60 Pulse Rate [ 64 From Monitor] Respiratory 19 17 12 Rate Blood Pressure 163/115 172/112 O2 Sat by Pulse 94 94 92 Oximetry 07/27/20 07/27/20 07/27/20 08:15 08:31 08:45 Temperature Pulse Rate 65 58 L 63 Pulse Rate [ From Monitor] Respiratory 11 L 17 26 H Rate Blood Pressure 172/112 180/108 180/108 O2 Sat by Pulse 95 93 95 Oximetry 07/27/20 07/27/20 07/27/20 09:01 09:15 09:31 Temperature Pulse Rate 64 64 64 Pulse Rate [ From Monitor] Respiratory 12 17 16 Rate Blood Pressure 175/111 175/111 175/111 O2 Sat by Pulse 93 95 93 Oximetry 07/27/20 07/27/20 07/27/20 09:40 09:45 10:00 Temperature Pulse Rate 59 L 61 59 L Pulse Rate [ From Monitor] Respiratory 17 19 Rate Blood Pressure 134/91 132/87 O2 Sat by Pulse 95 94 95 Oximetry 07/27/20 07/27/20 07/27/20 10:15 10:30 10:50 Temperature Pulse Rate 60 60 61 Pulse Rate [ From Monitor] Respiratory 10 L 13 16 Rate Blood Pressure 137/89 136/89 135/87 O2 Sat by Pulse 95 95 94 Oximetry 07/27/20 07/27/20 07/27/20 11:00 11:10 11:20 Temperature Pulse Rate 61 62 60 Pulse Rate [ From Monitor] Respiratory 15 16 19 Rate Blood Pressure 128/82 126/81 109/56 O2 Sat by Pulse 94 94 92 Oximetry 07/27/20 07/27/20 07/27/20 11:25 11:30 11:40 Temperature 95 F L 95 F L Pulse Rate 58 L 64 Pulse Rate [ From Monitor] Respiratory 15 18 Rate Blood Pressure 101/46 131/85 O2 Sat by Pulse 91 94 Oximetry 07/27/20 07/27/20 07/27/20 11:50 11:55 12:00 Temperature 95 F L 95 F L Pulse Rate 64 63 Pulse Rate [ 68 From Monitor] Respiratory 17 17 Rate Blood Pressure 127/81 126/78 O2 Sat by Pulse 95 94 Oximetry 07/27/20 07/27/20 07/27/20 12:10 12:20 12:30 Temperature Pulse Rate 64 64 65 Pulse Rate [ From Monitor] Respiratory 18 18 15 Rate Blood Pressure 127/80 124/77 128/77 O2 Sat by Pulse 95 94 95 Oximetry 07/27/20 07/27/20 07/27/20 12:40 12:50 13:00 Temperature Pulse Rate 64 66 65 Pulse Rate [ From Monitor] Respiratory 13 17 19 Rate Blood Pressure 123/77 128/80 125/74 O2 Sat by Pulse 95 95 95 Oximetry 07/27/20 07/27/20 07/27/20 13:10 13:15 13:16 Temperature 95 F L Pulse Rate 65 66 Pulse Rate [ From Monitor] Respiratory 16 15 Rate Blood Pressure 123/74 123/75 O2 Sat by Pulse 95 95 Oximetry 07/27/20 07/27/20 07/27/20 13:30 13:45 14:17 Temperature Pulse Rate 62 64 67 Pulse Rate [ From Monitor] Respiratory 15 14 Rate Blood Pressure 100/43 111/65 O2 Sat by Pulse 93 94 94 Oximetry - General Appearance General appearance: intubated EENT: ATNC Respiratory: Present: Decreased Breath Sounds Cardiology: S1S2 Gastrointestinal: other (soft, orogastric tube in place) Integumentary: warm and dry Neurologic: other (intubated) Musculoskeletal: other (trace edema to BLE) - Lab 07/27/20 04:45 07/27/20 04:45 Most recent lab results ABG pH 7.458 (7.320-7.450) H 07/25/20 05:20 ABG pCO2 31.2 mm Hg 07/22/20 04:25 ABG pO2 104.9 mm Hg (80.0-90.0) H 07/22/20 04:25 ABG HCO3 23.7 mmol/L (20.0-26.0) 07/22/20 04:25 ABG O2 Saturation 98.1 % (95.0-99.0) 07/22/20 04:25 Calcium 8.6 mg/dL (8.4-10.2) 07/27/20 04:45 Phosphorus 2.30 mg/dL (2.5-4.5) L D 07/24/20 10:14 Magnesium 1.70 mg/dL (1.7-2.3) 07/25/20 09:53 Medications & Allergies - Medications Allergies/Adverse Reactions: Allergies No Known Allergies Allergy (Verified 07/16/20 22:03) Home Medications: Home Medications Medication Instructions Recorded Confirmed Last Taken Type No Known Home Medications [No 07/17/20 07/17/20 Unknown History Reported Home Medications] Active Medications: Generic Name Dose Route Start Last Admin Trade Name Freq PRN Reason Stop Dose Admin Acetaminophen 650 mg 07/23/20 00:37 07/23/20 01:05 Acetaminophen 325 Mg/10.15 Ml Oral Liqd Unit Dose FEEDTUBE 650 mg Q6H PRN Administration Fever >101 Lipase/Protease/Amylase 1 each 07/23/20 08:37 Lipase 10,500/Protease 25,000/Amylase 43,750 (Units) Dr Sher FEEDTUBE PRN PRN For Clogged Feeding Tube Hydrocortisone Sodium Succinate 100 mg 07/25/20 12:00 07/27/20 11:30 Hydrocortisone Sod Succ 100 Mg/2 Ml Vial IV 100 mg Q8H ESTELA Administration Acyclovir 370 mg/ Sodium 107.4 mls @ 100 mls/hr 07/17/20 12:00 07/27/20 10:29 Chloride IV 100 mls/hr Q12HR ESTELA Administration Protocol Thiamine HCl 100 mg/ Sodium 51 mls @ 100 mls/hr 07/18/20 10:00 07/27/20 10:01 Chloride IV 100 mls/hr QDAY ESTELA Administration Folic Acid 1 mg/ Sodium 50.2 mls @ 200.8 mls/hr 07/18/20 10:00 07/27/20 10:01 Chloride IV 200.8 mls/hr QDAY ESTELA Administration Vasopressin 20 unit/ Sodium 101 mls @ 9.09 mls/hr 07/19/20 10:00 07/27/20 09:30 Chloride IV 0.03 units/min TITR ESTELA 9.09 mls/hr Administration Protocol 0.03 UNITS/MIN Norepinephrine 8 mg/ Sodium 250 mls @ 3.75 mls/hr 07/19/20 21:00 07/27/20 06:39 Chloride IV 6 mcg/min TITR ESTELA 11.25 mls/hr Titration Protocol 2 MCG/MIN Dextrose 1,000 mls @ 50 mls/hr 07/25/20 09:00 07/27/20 10:30 D10w IV 50 mls/hr DIRECT ESTELA Administration Magnesium Hydroxide 30 ml 07/17/20 03:56 Magnesium Hydroxide (Mom) Oral Liqd Udc PO Q4H PRN Constipation Ondansetron HCl 4 mg 07/17/20 03:56 07/18/20 20:00 Ondansetron 4 Mg/2 Ml Inj IV 4 mg Q8H PRN Administration Nausea And Vomiting Pantoprazole Sodium 40 mg 07/24/20 10:00 07/27/20 10:29 Pantoprazole 40 Mg Inj IV 40 mg BID ESTELA Administration Simple Syrup 15 ml 07/23/20 08:37 Simple Syrup 15 Ml FEEDTUBE PRN PRN Hypoglycemia Simple Syrup 30 ml 07/23/20 08:37 Simple Syrup 15 Ml FEEDTUBE PRN PRN Hypoglycemia Sodium Bicarbonate 325 mg 07/23/20 08:37 Sodium Bicarbonate 325 Mg Tab FEEDTUBE PRN PRN For Clogged Feeding Tube Sodium Chloride 10 ml 07/17/20 10:00 07/27/20 10:29 Sodium Chloride 0.9% 10 Ml Flush Syringe IV 10 ml BID ESTELA Administration Sodium Chloride 10 ml 07/17/20 03:56 Sodium Chloride 0.9% 10 Ml Flush Syringe IV PRN PRN LINE FLUSH
[2020-07-27] MEDS ORDERED: NORepinephrine/NS 4 MG-250 ML 0 MG/0 ML BAG IV ONE (20:43)
[2020-07-27] MEDS: NORepinephrine 8 MG in SODIUM CHLORIDE 0.9% 250ML 242 ML IV SCH (20:56)
--- NOTE | 2020-07-28 00:44 | Progress Note ---
Assessment and Plan The high probability of a clinically significant, sudden or life threatening deterioration of the [neuro, cardiac, renal, pulmonary] system(s) required my full and direct attention, intervention and personal management. The aggregate critical care time was [35] minutes. This time is in addition to time spent performing reported procedures but includes the following: [x] Data Review and interpretation [x] Patient assessment and monitoring of vital signs [x] Documentation [x] Medication orders and management - Patient Problems (1) Severe sepsis with septic shock Current Visit: Yes Status: Acute Plan to address problem: Sepsis protocol, IV pressor support, IV antibiotic therapy, IV fluid resuscitation therapy, maintain mean arterial pressure greater than or equal to 65, monitor urine output every shift, serial lactic acid level (2) Acute respiratory failure Current Visit: Yes Status: Acute Qualifiers: Respiratory failure complication: hypoxia Qualified Code(s): J96.01 - Acute respiratory failure with hypoxia Plan to address problem: Patient intubated and placed on ventilatory support overnight. Wean vent as tolerated, pulmonary team consulted, spontaneous breathing trial daily, sedation holiday, supportive care. (3) Acute liver failure Current Visit: Yes Status: Acute Plan to address problem: Supportive care, GI team consulted. Pt has poor prognosis, and currently unstable for transfer. (4) Metabolic acidosis Current Visit: Yes Status: Acute Plan to address problem: BMP, IV bicarbonate therapy, repeat BMP (5) UTI (urinary tract infection) Current Visit: Yes Status: Acute Qualifiers: Encounter type: initial encounter Plan to address problem: IV antibiotic therapy, supportive care. (6) DVT prophylaxis Current Visit: Yes Status: Acute Plan to address problem: SCD to bilateral lower extremities while in bed (7) Acute kidney injury (RINA) with acute tubular necrosis (ATN) Current Visit: Yes Status: Acute Plan to address problem: Nephrology team consulted, IV fluid resuscitation therapy, monitor urine output every shift, monitor fluid balance, supportive care. (8) Cardiac arrest Current Visit: Yes Status: Acute Plan to address problem: Patient experienced cardiac arrest overnight. Patient treated with ACLS protocol with eventual return of perfusing cardiac rhythm. Patient has poor prognosis. (9) Toxic metabolic encephalopathy Current Visit: Yes Status: Acute Plan to address problem: CT scan head, when medically stable, supportive care, continue medical management. Suspect anoxic brain injury. (10) Advance care planning Current Visit: Yes Status: Acute Plan to address problem: Disease education conducted, patient is full code, patient prognosis discussed with patient mother Tete Gao as well as patient xiomara today., patient family informed the patient shows no sign of brain function and is on multiple medications to maintain her current status. Patient family informed that patient has experienced nonsurvivable physiologic insult and has suffered anoxic brain injury. Patient family acknowledges prognosis but declines to make decision for gait regarding withdrawal of care due to patient's 5 children and that the need for necessary arrangements to be made for the care of the children. Awaiting decision on withdrawal of care. . Patient family informed of care plan. +60 minutes. Subjective Date of service: 07/27/20 Principal diagnosis: Acute Liver Injury Interval history: History Interval history: 29 YO Female HD #9 with Severe Sepsis complicated by Shock, Fulminant Hepatic Failure, ETOH Dependence, RINA with ATN, Toxic Metabolic Encephalopathy, Elevated INR, Metabolic Acidosis, Acute Respiratory Failure S/P Cardiac Arrest, Anoxic Brain Injury. Patient is critically ill and has very poor prognosis. Patient currently intubated and on ventilatory support. Patient has poor prognosis. No significant overnight improvement. Patient prognosis discussed again with patient mother and xiomara. Patient family acknowledges understanding patient condition and prognosis. Objective - Constitutional Vitals: Vital Signs - 12hr 07/27/20 07/27/20 07/27/20 12:50 13:00 13:10 Temperature Pulse Rate 66 65 65 Pulse Rate [ From Monitor] Respiratory 17 19 16 Rate Blood Pressure 128/80 125/74 123/74 O2 Sat by Pulse 95 95 95 Oximetry 07/27/20 07/27/20 07/27/20 13:15 13:16 13:30 Temperature 95 F L Pulse Rate 66 62 Pulse Rate [ From Monitor] Respiratory 15 15 Rate Blood Pressure 123/75 100/43 O2 Sat by Pulse 95 93 Oximetry 07/27/20 07/27/20 07/27/20 13:45 14:00 14:15 Temperature Pulse Rate 64 67 68 Pulse Rate [ From Monitor] Respiratory 14 16 20 Rate Blood Pressure 111/65 121/72 117/69 O2 Sat by Pulse 94 95 94 Oximetry 07/27/20 07/27/20 07/27/20 14:17 14:30 14:45 Temperature Pulse Rate 67 68 66 Pulse Rate [ From Monitor] Respiratory 22 16 Rate Blood Pressure 116/62 114/56 O2 Sat by Pulse 94 93 93 Oximetry 07/27/20 07/27/20 07/27/20 15:00 15:15 15:30 Temperature Pulse Rate 69 69 71 Pulse Rate [ From Monitor] Respiratory 16 18 12 Rate Blood Pressure 113/58 112/54 111/55 O2 Sat by Pulse 93 93 93 Oximetry 07/27/20 07/27/20 07/27/20 15:45 16:00 16:15 Temperature 95 F L Pulse Rate 69 70 71 Pulse Rate [ 91 H From Monitor] Respiratory 18 18 15 Rate Blood Pressure 107/48 108/50 106/49 O2 Sat by Pulse 93 93 93 Oximetry 07/27/20 07/27/20 07/27/20 16:30 16:45 17:00 Temperature Pulse Rate 71 74 73 Pulse Rate [ From Monitor] Respiratory 17 17 24 Rate Blood Pressure 106/48 120/63 90/41 O2 Sat by Pulse 93 93 92 Oximetry 07/27/20 07/27/20 07/27/20 17:15 17:30 17:44 Temperature Pulse Rate 76 74 66 Pulse Rate [ From Monitor] Respiratory 16 17 Rate Blood Pressure 105/51 94/38 O2 Sat by Pulse 93 92 91 Oximetry 07/27/20 07/27/20 07/27/20 17:45 18:00 18:15 Temperature Pulse Rate 71 74 94 H Pulse Rate [ From Monitor] Respiratory 16 15 15 Rate Blood Pressure 81/25 95/34 144/103 O2 Sat by Pulse 90 92 95 Oximetry 07/27/20 07/27/20 07/27/20 18:30 18:45 19:00 Temperature Pulse Rate 94 H 94 H 92 H Pulse Rate [ From Monitor] Respiratory 20 15 16 Rate Blood Pressure 143/88 140/85 134/78 O2 Sat by Pulse 94 93 92 Oximetry 07/27/20 07/27/20 07/27/20 19:15 19:30 19:45 Temperature Pulse Rate 95 H 95 H 94 H Pulse Rate [ From Monitor] Respiratory 15 20 18 Rate Blood Pressure 136/80 133/78 130/74 O2 Sat by Pulse 93 92 92 Oximetry 07/27/20 07/27/20 07/27/20 19:53 20:00 20:15 Temperature 97.4 F L Pulse Rate 94 H 79 Pulse Rate [ 86 From Monitor] Respiratory 12 19 Rate Blood Pressure 129/74 78/20 O2 Sat by Pulse 92 87 Oximetry 07/27/20 07/27/20 07/27/20 20:30 20:45 21:00 Temperature Pulse Rate 83 111 H 92 H Pulse Rate [ From Monitor] Respiratory 15 21 19 Rate Blood Pressure 69/21 183/116 119/64 O2 Sat by Pulse 88 94 92 Oximetry 07/27/20 07/27/20 07/27/20 21:15 21:30 21:34 Temperature Pulse Rate 96 H 86 88 Pulse Rate [ From Monitor] Respiratory 17 16 Rate Blood Pressure 121/64 90/27 O2 Sat by Pulse 92 89 90 Oximetry 07/27/20 07/27/20 07/27/20 21:45 22:00 22:15 Temperature Pulse Rate 97 H 93 H 94 H Pulse Rate [ From Monitor] Respiratory 17 17 17 Rate Blood Pressure 123/68 109/40 106/49 O2 Sat by Pulse 93 93 92 Oximetry 07/27/20 07/27/20 07/27/20 22:30 22:45 23:00 Temperature Pulse Rate 92 H 101 H 99 H Pulse Rate [ From Monitor] Respiratory 18 17 18 Rate Blood Pressure 109/49 120/62 107/51 O2 Sat by Pulse 92 92 91 Oximetry 07/27/20 07/27/20 07/27/20 23:15 23:30 23:45 Temperature Pulse Rate 95 H 90 101 H Pulse Rate [ From Monitor] Respiratory 13 17 17 Rate Blood Pressure 103/38 103/39 122/63 O2 Sat by Pulse 91 90 93 Oximetry 07/28/20 00:00 Temperature 98.8 F Pulse Rate Pulse Rate [ From Monitor] Respiratory Rate Blood Pressure O2 Sat by Pulse Oximetry General appearance: Present: no acute distress, well-nourished - EENT Eyes: PERRL, EOM intact ENT: hearing intact, clear oral mucosa Ears: bilateral: normal - Neck Neck: supple, normal ROM - Respiratory Respiratory effort: normal Respiratory: bilateral: CTA - Breasts Breasts: normal - Cardiovascular Rhythm: regular Heart Sounds: Present: S1 & S2. Absent: gallop, rub Extremities: pulses intact, No edema, normal color, Full ROM - Gastrointestinal General gastrointestinal: Present: soft, non-tender, non-distended, normal bowel sounds - Genitourinary Female genitourinary: normal - Integumentary Integumentary: clear, warm, dry - Musculoskeletal Musculoskeletal: 1, strength equal bilaterally - Neurologic Neurologic: moves all extremities - Psychiatric Psychiatric: memory intact, appropriate mood/affect, intact judgment & insight - Labs CBC & Chem 7: 07/27/20 04:45 07/27/20 04:45 Labs: Abnormal lab results 07/19/20 07/27/20 07/27/20 Range/Units 07:35 02:03 04:45 WBC 22.2 H (4.5-11.0) K/mm3 RBC 1.95 L (3.65-5.03) M/mm3 Hgb 6.5 L (10.1-14.3) gm/dl Hct 18.9 L* (30.3-42.9) % MCH 34 H (28-32) pg MCHC 35 H (30-34) % RDW 21.3 H (13.2-15.2) % Plt Count 29 L (140-440) K/mm3 Seg Neuts % (Manual) 82.0 H (40.0-70.0) % Lymphocytes % (Manual) 3.0 L (13.4-35.0) % Seg Neutrophils # Man 18.2 H (1.8-7.7) K/mm3 Lymphocytes # (Manual) 0.7 L (1.2-5.4) K/mm3 Sodium (137-145) mmol/L Potassium (3.6-5.0) mmol/L Chloride (98-107) mmol/L BUN (7-17) mg/dL Glucose (65-100) mg/dL POC Glucose 134 H (70-105) mg/dL Total Bilirubin (0.1-1.2) mg/dL AST (5-40) units/L ALT (7-56) units/L Alkaline Phosphatase (35-129) units/L Total Protein (6.3-8.2) g/dL Albumin (3.9-5) g/dL Crossmatch See Detail 07/27/20 07/27/20 07/27/20 Range/Units 04:45 05:36 08:45 WBC (4.5-11.0) K/mm3 RBC (3.65-5.03) M/mm3 Hgb (10.1-14.3) gm/dl Hct (30.3-42.9) % MCH (28-32) pg MCHC (30-34) % RDW (13.2-15.2) % Plt Count (140-440) K/mm3 Seg Neuts % (Manual) (40.0-70.0) % Lymphocytes % (Manual) (13.4-35.0) % Seg Neutrophils # Man (1.8-7.7) K/mm3 Lymphocytes # (Manual) (1.2-5.4) K/mm3 Sodium 150 H (137-145) mmol/L Potassium 3.4 L (3.6-5.0) mmol/L Chloride 119.4 H (98-107) mmol/L BUN 47 H (7-17) mg/dL Glucose 137 H (65-100) mg/dL POC Glucose 126 H (70-105) mg/dL Total Bilirubin 9.60 H (0.1-1.2) mg/dL AST 120 H (5-40) units/L ALT 89 H (7-56) units/L Alkaline Phosphatase 340 H (35-129) units/L Total Protein 3.7 L (6.3-8.2) g/dL Albumin 2.1 L (3.9-5) g/dL Crossmatch See Detail 07/27/20 07/27/20 Range/Units 10:28 15:32 WBC (4.5-11.0) K/mm3 RBC (3.65-5.03) M/mm3 Hgb (10.1-14.3) gm/dl Hct (30.3-42.9) % MCH (28-32) pg MCHC (30-34) % RDW (13.2-15.2) % Plt Count (140-440) K/mm3 Seg Neuts % (Manual) (40.0-70.0) % Lymphocytes % (Manual) (13.4-35.0) % Seg Neutrophils # Man (1.8-7.7) K/mm3 Lymphocytes # (Manual) (1.2-5.4) K/mm3 Sodium (137-145) mmol/L Potassium (3.6-5.0) mmol/L Chloride (98-107) mmol/L BUN (7-17) mg/dL Glucose (65-100) mg/dL POC Glucose 149 H 113 H (70-105) mg/dL Total Bilirubin (0.1-1.2) mg/dL AST (5-40) units/L ALT (7-56) units/L Alkaline Phosphatase (35-129) units/L Total Protein (6.3-8.2) g/dL Albumin (3.9-5) g/dL Crossmatch HEART Score - HEART Score Troponin: Troponin T < 0.010 ng/mL (0.00-0.029) 07/16/20 20:47
[2020-07-28 01:12] LABS: Hematocrit 28.6 % (30.3-42.9); Hemoglobin 9.5 gm/dl (10.1-14.3)
[2020-07-28] MEDS: NORepinephrine 8 MG in SODIUM CHLORIDE 0.9% 250ML 242 ML IV SCH (01:45)
[2020-07-28] MEDS: HYDROCORTISONE SOD SUCC 100 MG/2 ML VIAL IV SCH ×3 (05:47→22:12)
[2020-07-28] MEDS: VASOPRESSIN 20 UNIT in SODIUM CHLORIDE 0.9% 100 ML IV SCH ×3 (06:03→22:11)
--- NOTE | 2020-07-28 09:22 | Progress Note ---
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 07/28/20: Await MRI. EEG draft from yesterday shows severe encephalopathy with m ultiple etiologies. Will attempt trickle feeds today despite 2 pressor need. If she does not tolerate, will talk to nutrition about TPN. Need neurology input once MRI done and read as the overall prognosis here appears to be poor and decisions need to be made in regards to next steps of care. Patient has been intubated now since 07/19/2020 (Today is day 9 of intubation). If family requests continued aggressive care, patient will need trach and peg placement, however, it does not appear that she can be weaned off of vasopressors. FPC consequences are soon to happen from prolonged use (i.e ischemia) 07/27/2020: Await MRI. Continue supportive measures. Clinical picture appears to be worsening. Family awaiting neurology input and they need imaging. 07/26/2020: Await MRI. Continue supportive care. Hopeful to wean off levo so we can start feeding patient later today. Will replace lytes and give more free water. Prognosis still appears to be very very poor from a neurological standpoint. 07/25/2020: Reviewed consultants notes on yesterday. Neuro has requested EEG t o rule out status. Will speak with them in regards to MRI. Patient is stable enough for travel as pressor requirement is minimal and vent requirement is minimal. No objection to travel. Given hypoglycemia, will change fingersticks to q1 hour. Unable to feed secondary to pressor requirement or this could resultant of liver impairment. Overall prognosis appears to be poor. ] Continue supportive vent care. Not weanable secondary to mental state. Will await family meeting Wean Vasopressors for MAPS >65 Once down to one pressor can feed Will obtain formal neurology consult today May need to consider EEG Overall prognosis appears to be very poor. CCT 31 minutes. Subjective Date of service: 07/28/20 Principal diagnosis: Acute Liver Injury Interval history: No acute events. Had fever early am to 101. I have ordered blood and urine cultures as well as repeat CXR. Patient is still vasopressor dependent. Has not been fed secondary to this. Remains unresponsive. Objective Vital Signs - 12hr 07/27/20 07/27/20 07/27/20 21:30 21:34 21:45 Temperature Pulse Rate 86 88 97 H Pulse Rate [ From Monitor] Respiratory 16 17 Rate Blood Pressure 90/27 123/68 O2 Sat by Pulse 89 90 93 Oximetry 07/27/20 07/27/20 07/27/20 22:00 22:15 22:30 Temperature Pulse Rate 93 H 94 H 92 H Pulse Rate [ From Monitor] Respiratory 17 17 18 Rate Blood Pressure 109/40 106/49 109/49 O2 Sat by Pulse 93 92 92 Oximetry 07/27/20 07/27/20 07/27/20 22:45 23:00 23:15 Temperature Pulse Rate 101 H 99 H 95 H Pulse Rate [ From Monitor] Respiratory 17 18 13 Rate Blood Pressure 120/62 107/51 103/38 O2 Sat by Pulse 92 91 91 Oximetry 07/27/20 07/27/20 07/27/20 23:30 23:45 23:47 Temperature Pulse Rate 90 101 H 103 H Pulse Rate [ From Monitor] Respiratory 17 17 19 Rate Blood Pressure 103/39 122/63 122/63 O2 Sat by Pulse 90 93 92 Oximetry 07/28/20 07/28/20 07/28/20 00:00 00:15 00:30 Temperature 98.8 F Pulse Rate 94 H 104 H 101 H Pulse Rate [ 103 H From Monitor] Respiratory 22 18 21 Rate Blood Pressure 105/39 117/57 111/49 O2 Sat by Pulse 90 92 92 Oximetry 07/28/20 07/28/20 07/28/20 00:45 01:00 01:15 Temperature Pulse Rate 100 H 105 H 106 H Pulse Rate [ From Monitor] Respiratory 20 17 21 Rate Blood Pressure 119/56 114/56 113/54 O2 Sat by Pulse 92 92 91 Oximetry 07/28/20 07/28/20 07/28/20 01:30 01:45 02:00 Temperature Pulse Rate 107 H 107 H 100 H Pulse Rate [ From Monitor] Respiratory 17 16 15 Rate Blood Pressure 114/56 113/55 112/54 O2 Sat by Pulse 92 92 92 Oximetry 07/28/20 07/28/20 07/28/20 02:15 02:30 02:45 Temperature Pulse Rate 105 H 106 H 107 H Pulse Rate [ From Monitor] Respiratory 18 20 17 Rate Blood Pressure 113/52 111/52 111/49 O2 Sat by Pulse 91 91 91 Oximetry 07/28/20 07/28/20 07/28/20 03:00 03:15 03:30 Temperature 101.2 F H Pulse Rate 108 H 110 H 108 H Pulse Rate [ From Monitor] Respiratory 14 12 25 H Rate Blood Pressure 113/47 114/50 114/51 O2 Sat by Pulse 92 92 92 Oximetry 07/28/20 07/28/20 07/28/20 03:45 04:00 04:15 Temperature Pulse Rate 110 H 110 H 109 H Pulse Rate [ 103 H From Monitor] Respiratory 25 H 13 18 Rate Blood Pressure 114/55 113/55 113/56 O2 Sat by Pulse 92 92 92 Oximetry 07/28/20 07/28/20 07/28/20 04:30 04:45 05:00 Temperature Pulse Rate 101 H 103 H 105 H Pulse Rate [ From Monitor] Respiratory 15 24 18 Rate Blood Pressure 113/37 110/51 111/52 O2 Sat by Pulse 92 93 93 Oximetry 07/28/20 07/28/20 07/28/20 05:06 05:15 05:30 Temperature Pulse Rate 104 H 106 H 101 H Pulse Rate [ From Monitor] Respiratory 35 H 21 Rate Blood Pressure 111/52 108/48 O2 Sat by Pulse 92 93 92 Oximetry 07/28/20 07/28/20 07/28/20 05:45 06:00 06:15 Temperature Pulse Rate 102 H 101 H 101 H Pulse Rate [ From Monitor] Respiratory 20 23 25 H Rate Blood Pressure 109/52 109/54 110/54 O2 Sat by Pulse 93 93 93 Oximetry 07/28/20 07/28/20 07/28/20 06:30 06:45 07:00 Temperature Pulse Rate 102 H 101 H 95 H Pulse Rate [ From Monitor] Respiratory 18 25 H 13 Rate Blood Pressure 114/57 110/57 101/41 O2 Sat by Pulse 93 93 91 Oximetry 07/28/20 07/28/20 07:15 09:01 Temperature Pulse Rate 102 H 98 H Pulse Rate [ From Monitor] Respiratory 20 Rate Blood Pressure 116/60 117/65 O2 Sat by Pulse 94 93 Oximetry Constitutional: comatose Eyes: icteric ENT: other (orally intubated, no sedation) Neck: supple Effort: normal Ascultation: Bilateral: rales, rhonchi (anteriorly), other (coarse BS bilaterally) Cardiovascular: other (tachy, RR; no mrg) Gastrointestinal: normoactive bowel sounds, soft, non-tender, non-distended Integumentary: normal Extremities: no cyanosis, edema (1+ bilateral LE edema) Neurologic: other (unresponsive) Psychiatric: other (unable to assess) CBC and BMP: 07/28/20 00:32 07/27/20 04:45 ABG, PT/INR, D-dimer: ABG ABG pH 7.458 (7.320-7.450) H 07/25/20 05:20 POC ABG pCO2 32.7 mmHg (32.0-48.0) 07/25/20 05:20 ABG pCO2 31.2 mm Hg 07/22/20 04:25 POC ABG pO2 77.5 mmHg (83-108) L 07/25/20 05:20 ABG pO2 104.9 mm Hg (80.0-90.0) H 07/22/20 04:25 POC ABG HCO3 22.6 07/25/20 05:20 ABG O2 Saturation 98.1 % (95.0-99.0) 07/22/20 04:25 PT/INR, D-dimer PT 21.2 Sec. (12.2-14.9) H 07/26/20 14:47 INR 1.83 (0.87-1.13) H 07/26/20 14:47 Abnormal lab findings: Abnormal Labs 07/16/20 07/16/20 07/16/20 03:54 20:47 20:47 WBC 33.9 H RBC Hgb Hct MCV 107 H MCH 34 H MCHC RDW 22.0 H Plt Count Lymph % (Auto) [place] % (Auto) Lymph # (Auto) [place] # (Auto) Eos # (Auto) Seg Neutrophils % Seg Neuts % (Manual) 89.0 H Lymphocytes % (Manual) 2.0 L Monocytes % (Manual) Nucleated RBC % 1.0 H Seg Neutrophils # Seg Neutrophils # Man 30.2 H Lymphocytes # (Manual) 0.7 L Monocytes # (Manual) 1.4 H Eosinophils # (Manual) PT INR ABG pH POC ABG pCO2 POC ABG pO2 ABG pO2 ABG Base Excess ABG Hemoglobin ABG Oxyhemoglobin ABG Sodium ABG Potassium ABG Chloride ABG Glucose VBG pH Oxyhemoglobin Carboxyhemoglobin Sodium Potassium 5.1 H Chloride Carbon Dioxide 9 L* BUN 20 H Creatinine 1.9 H Glucose 30 L* POC Glucose Lactic Acid Calcium Phosphorus Magnesium Total Bilirubin 5.40 H Direct Bilirubin AST 07701 H ALT 1829 H Alkaline Phosphatase 141 H Ammonia Total Creatine Kinase C-Reactive Protein Total Protein Albumin Lipase 9 L Arterial Blood Glucose Arterial Blood Ionized Calcium Urine WBC (Auto) 57.0 H U Epithel Cells (Auto) 23.0 H Acetaminophen Complement C3 Complement C4 Syphilis IgG Antibody HSV I Specific Ab Crossmatch 07/16/20 07/16/20 07/16/20 20:47 22:43 23:06 WBC RBC Hgb Hct MCV MCH MCHC RDW Plt Count Lymph % (Auto) [place] % (Auto) Lymph # (Auto) [place] # (Auto) Eos # (Auto) Seg Neutrophils % Seg Neuts % (Manual) Lymphocytes % (Manual) Monocytes % (Manual) Nucleated RBC % Seg Neutrophils # Seg Neutrophils # Man Lymphocytes # (Manual) Monocytes # (Manual) Eosinophils # (Manual) PT INR ABG pH POC ABG pCO2 POC ABG pO2 ABG pO2 ABG Base Excess ABG Hemoglobin ABG Oxyhemoglobin ABG Sodium ABG Potassium ABG Chloride ABG Glucose VBG pH Oxyhemoglobin Carboxyhemoglobin Sodium Potassium Chloride Carbon Dioxide BUN Creatinine Glucose POC Glucose 140 H Lactic Acid 14.90 H* Calcium Phosphorus Magnesium Total Bilirubin Direct Bilirubin AST ALT Alkaline Phosphatase Ammonia Total Creatine Kinase 230 H C-Reactive Protein Total Protein Albumin Lipase Arterial Blood Glucose Arterial Blood Ionized Calcium Urine WBC (Auto) U Epithel Cells (Auto) Acetaminophen Complement C3 Complement C4 Syphilis IgG Antibody HSV I Specific Ab Crossmatch 07/17/20 07/17/20 07/17/20 01:46 01:46 04:55 WBC RBC Hgb Hct MCV MCH MCHC RDW Plt Count Lymph % (Auto) [place] % (Auto) Lymph # (Auto) [place] # (Auto) Eos # (Auto) Seg Neutrophils % Seg Neuts % (Manual) Lymphocytes % (Manual) Monocytes % (Manual) Nucleated RBC % Seg Neutrophils # Seg Neutrophils # Man Lymphocytes # (Manual) Monocytes # (Manual) Eosinophils # (Manual) PT INR ABG pH POC ABG pCO2 POC ABG pO2 ABG pO2 ABG Base Excess ABG Hemoglobin ABG Oxyhemoglobin ABG Sodium ABG Potassium ABG Chloride ABG Glucose VBG pH 7.085 L* Oxyhemoglobin Carboxyhemoglobin Sodium Potassium Chloride Carbon Dioxide BUN Creatinine Glucose POC Glucose Lactic Acid 13.20 H* 12.00 H* Calcium Phosphorus Magnesium Total Bilirubin Direct Bilirubin AST ALT Alkaline Phosphatase Ammonia Total Creatine Kinase C-Reactive Protein Total Protein Albumin Lipase Arterial Blood Glucose Arterial Blood Ionized Calcium Urine WBC (Auto) U Epithel Cells (Auto) Acetaminophen Complement C3 Complement C4 Syphilis IgG Antibody HSV I Specific Ab Crossmatch 07/17/20 07/17/20 07/17/20 06:05 07:33 07:48 WBC RBC Hgb Hct MCV MCH MCHC RDW Plt Count Lymph % (Auto) [place] % (Auto) Lymph # (Auto) [place] # (Auto) Eos # (Auto) Seg Neutrophils % Seg Neuts % (Manual) Lymphocytes % (Manual) Monocytes % (Manual) Nucleated RBC % Seg Neutrophils # Seg Neutrophils # Man Lymphocytes # (Manual) Monocytes # (Manual) Eosinophils # (Manual) PT INR ABG pH POC ABG pCO2 POC ABG pO2 ABG pO2 ABG Base Excess ABG Hemoglobin ABG Oxyhemoglobin ABG Sodium ABG Potassium ABG Chloride ABG Glucose VBG pH Oxyhemoglobin Carboxyhemoglobin Sodium Potassium Chloride Carbon Dioxide BUN Creatinine Glucose POC Glucose 59 L 125 H Lactic Acid 12.00 H* Calcium Phosphorus Magnesium Total Bilirubin Direct Bilirubin AST ALT Alkaline Phosphatase Ammonia Total Creatine Kinase C-Reactive Protein Total Protein Albumin Lipase Arterial Blood Glucose Arterial Blood Ionized Calcium Urine WBC (Auto) U Epithel Cells (Auto) Acetaminophen Complement C3 Complement C4 Syphilis IgG Antibody HSV I Specific Ab Crossmatch 07/17/20 07/17/20 07/17/20 09:23 09:23 09:24 WBC RBC Hgb Hct MCV MCH MCHC RDW Plt Count Lymph % (Auto) [place] % (Auto) Lymph # (Auto) [place] # (Auto) Eos # (Auto) Seg Neutrophils % Seg Neuts % (Manual) Lymphocytes % (Manual) Monocytes % (Manual) Nucleated RBC % Seg Neutrophils # Seg Neutrophils # Man Lymphocytes # (Manual) Monocytes # (Manual) Eosinophils # (Manual) PT INR ABG pH POC ABG pCO2 POC ABG pO2 ABG pO2 ABG Base Excess ABG Hemoglobin ABG Oxyhemoglobin ABG Sodium ABG Potassium ABG Chloride ABG Glucose VBG pH Oxyhemoglobin Carboxyhemoglobin Sodium Potassium 5.7 H Chloride 107.6 H Carbon Dioxide 13 L BUN 24 H Creatinine 2.1 H Glucose 121 H POC Glucose Lactic Acid Calcium 6.0 L D Phosphorus Magnesium Total Bilirubin 3.80 H Direct Bilirubin AST 8355 H ALT 1522 H Alkaline Phosphatase Ammonia Total Creatine Kinase 332 H C-Reactive Protein Total Protein 4.7 L D Albumin 2.8 L Lipase Arterial Blood Glucose Arterial Blood Ionized Calcium Urine WBC (Auto) U Epithel Cells (Auto) Acetaminophen 5.0 L Complement C3 Complement C4 Syphilis IgG Antibody HSV I Specific Ab Crossmatch 07/17/20 07/17/20 07/17/20 11:08 11:08 11:08 WBC RBC Hgb Hct MCV MCH MCHC RDW Plt Count Lymph % (Auto) [place] % (Auto) Lymph # (Auto) [place] # (Auto) Eos # (Auto) Seg Neutrophils % Seg Neuts % (Manual) Lymphocytes % (Manual) Monocytes % (Manual) Nucleated RBC % Seg Neutrophils # Seg Neutrophils # Man Lymphocytes # (Manual) Monocytes # (Manual) Eosinophils # (Manual) PT 60.1 H INR > 17.67 H* ABG pH POC ABG pCO2 POC ABG pO2 ABG pO2 ABG Base Excess ABG Hemoglobin ABG Oxyhemoglobin ABG Sodium ABG Potassium ABG Chloride ABG Glucose VBG pH Oxyhemoglobin Carboxyhemoglobin Sodium Potassium Chloride Carbon Dioxide BUN Creatinine Glucose POC Glucose Lactic Acid 9.80 H* Calcium Phosphorus Magnesium Total Bilirubin Direct Bilirubin AST ALT Alkaline Phosphatase Ammonia Total Creatine Kinase C-Reactive Protein Total Protein Albumin Lipase Arterial Blood Glucose Arterial Blood Ionized Calcium Urine WBC (Auto) U Epithel Cells (Auto) Acetaminophen Complement C3 Complement C4 Syphilis IgG Antibody Reactive A HSV I Specific Ab Crossmatch 07/17/20 07/17/20 07/17/20 11:08 14:34 14:34 WBC 27.2 H RBC 2.66 L Hgb 9.1 L D Hct 27.8 L D MCV 104 H MCH 34 H MCHC RDW 22.6 H Plt Count Lymph % (Auto) [place] % (Auto) Lymph # (Auto) [place] # (Auto) Eos # (Auto) Seg Neutrophils % Seg Neuts % (Manual) Lymphocytes % (Manual) Monocytes % (Manual) Nucleated RBC % Seg Neutrophils # Seg Neutrophils # Man Lymphocytes # (Manual) Monocytes # (Manual) Eosinophils # (Manual) PT INR ABG pH POC ABG pCO2 POC ABG pO2 ABG pO2 ABG Base Excess ABG Hemoglobin ABG Oxyhemoglobin ABG Sodium ABG Potassium ABG Chloride ABG Glucose VBG pH Oxyhemoglobin Carboxyhemoglobin Sodium Potassium 5.4 H Chloride 107.7 H Carbon Dioxide 16 L BUN 26 H Creatinine 2.3 H Glucose 151 H POC Glucose Lactic Acid Calcium 5.8 L* Phosphorus Magnesium Total Bilirubin 3.30 H Direct Bilirubin AST 6751 H ALT 1325 H Alkaline Phosphatase Ammonia Total Creatine Kinase C-Reactive Protein Total Protein 4.4 L Albumin 2.5 L Lipase Arterial Blood Glucose Arterial Blood Ionized Calcium Urine WBC (Auto) U Epithel Cells (Auto) Acetaminophen Complement C3 Complement C4 Syphilis IgG Antibody HSV I Specific Ab 5.23 H Crossmatch 07/17/20 07/17/20 07/17/20 14:34 14:34 14:34 WBC RBC Hgb Hct MCV MCH MCHC RDW Plt Count Lymph % (Auto) [place] % (Auto) Lymph # (Auto) [place] # (Auto) Eos # (Auto) Seg Neutrophils % Seg Neuts % (Manual) Lymphocytes % (Manual) Monocytes % (Manual) Nucleated RBC % Seg Neutrophils # Seg Neutrophils # Man Lymphocytes # (Manual) Monocytes # (Manual) Eosinophils # (Manual) PT 70.6 H INR 8.29 H* ABG pH POC ABG pCO2 POC ABG pO2 ABG pO2 ABG Base Excess ABG Hemoglobin ABG Oxyhemoglobin ABG Sodium ABG Potassium ABG Chloride ABG Glucose VBG pH Oxyhemoglobin Carboxyhemoglobin Sodium Potassium Chloride Carbon Dioxide BUN Creatinine Glucose POC Glucose Lactic Acid 7.60 H* Calcium Phosphorus Magnesium Total Bilirubin Direct Bilirubin AST ALT Alkaline Phosphatase Ammonia 75.0 H Total Creatine Kinase C-Reactive Protein Total Protein Albumin Lipase Arterial Blood Glucose Arterial Blood Ionized Calcium Urine WBC (Auto) U Epithel Cells (Auto) Acetaminophen Complement C3 Complement C4 Syphilis IgG Antibody HSV I Specific Ab Crossmatch 07/17/20 07/17/20 07/18/20 16:45 16:45 04:23 WBC 22.7 H RBC 2.47 L Hgb 8.5 L Hct 25.5 L MCV 103 H MCH 35 H MCHC RDW 21.7 H Plt Count Lymph % (Auto) 5.3 L [place] % (Auto) Lymph # (Auto) [place] # (Auto) Eos # (Auto) 0.7 H Seg Neutrophils % 88.2 H Seg Neuts % (Manual) Lymphocytes % (Manual) Monocytes % (Manual) Nucleated RBC % Seg Neutrophils # 20.0 H Seg Neutrophils # Man Lymphocytes # (Manual) Monocytes # (Manual) Eosinophils # (Manual) PT INR ABG pH POC ABG pCO2 POC ABG pO2 ABG pO2 ABG Base Excess ABG Hemoglobin ABG Oxyhemoglobin ABG Sodium ABG Potassium ABG Chloride ABG Glucose VBG pH Oxyhemoglobin Carboxyhemoglobin Sodium Potassium Chloride 107.9 H Carbon Dioxide 17 L BUN 27 H Creatinine 2.5 H Glucose 144 H POC Glucose Lactic Acid 7.00 H* Calcium 6.0 L Phosphorus Magnesium Total Bilirubin 3.30 H Direct Bilirubin AST 6456 H ALT 1286 H Alkaline Phosphatase Ammonia Total Creatine Kinase C-Reactive Protein Total Protein 4.2 L Albumin 2.5 L Lipase Arterial Blood Glucose Arterial Blood Ionized Calcium Urine WBC (Auto) U Epithel Cells (Auto) Acetaminophen Complement C3 Complement C4 Syphilis IgG Antibody HSV I Specific Ab Crossmatch 07/18/20 07/18/20 07/18/20 04:23 04:23 04:23 WBC RBC Hgb Hct MCV MCH MCHC RDW Plt Count Lymph % (Auto) [place] % (Auto) Lymph # (Auto) [place] # (Auto) Eos # (Auto) Seg Neutrophils % Seg Neuts % (Manual) Lymphocytes % (Manual) Monocytes % (Manual) Nucleated RBC % Seg Neutrophils # Seg Neutrophils # Man Lymphocytes # (Manual) Monocytes # (Manual) Eosinophils # (Manual) PT 52.9 H INR 5.78 H* ABG pH POC ABG pCO2 POC ABG pO2 ABG pO2 ABG Base Excess ABG Hemoglobin ABG Oxyhemoglobin ABG Sodium ABG Potassium ABG Chloride ABG Glucose VBG pH Oxyhemoglobin Carboxyhemoglobin Sodium Potassium Chloride 110.0 H Carbon Dioxide 17 L BUN 33 H Creatinine 3.0 H Glucose 110 H POC Glucose Lactic Acid 5.40 H* Calcium 6.4 L Phosphorus Magnesium Total Bilirubin Direct Bilirubin AST ALT Alkaline Phosphatase Ammonia Total Creatine Kinase C-Reactive Protein Total Protein Albumin Lipase Arterial Blood Glucose Arterial Blood Ionized Calcium Urine WBC (Auto) U Epithel Cells (Auto) Acetaminophen Complement C3 Complement C4 Syphilis IgG Antibody HSV I Specific Ab Crossmatch 07/18/20 07/18/20 07/18/20 04:23 07:25 Unknown WBC RBC Hgb Hct MCV MCH MCHC RDW Plt Count Lymph % (Auto) [place] % (Auto) Lymph # (Auto) [place] # (Auto) Eos # (Auto) Seg Neutrophils % Seg Neuts % (Manual) Lymphocytes % (Manual) Monocytes % (Manual) Nucleated RBC % Seg Neutrophils # Seg Neutrophils # Man Lymphocytes # (Manual) Monocytes # (Manual) Eosinophils # (Manual) PT INR ABG pH POC ABG pCO2 POC ABG pO2 ABG pO2 ABG Base Excess ABG Hemoglobin ABG Oxyhemoglobin ABG Sodium ABG Potassium ABG Chloride ABG Glucose VBG pH Oxyhemoglobin Carboxyhemoglobin Sodium Potassium Chloride Carbon Dioxide BUN Creatinine Glucose POC Glucose Lactic Acid 5.50 H* 4.80 H* Calcium Phosphorus Magnesium Total Bilirubin Direct Bilirubin AST ALT Alkaline Phosphatase Ammonia 96.0 H Total Creatine Kinase C-Reactive Protein Total Protein Albumin Lipase Arterial Blood Glucose Arterial Blood Ionized Calcium Urine WBC (Auto) U Epithel Cells (Auto) Acetaminophen Complement C3 Complement C4 Syphilis IgG Antibody HSV I Specific Ab Crossmatch 07/18/20 07/18/20 07/19/20 Unknown Unknown 02:47 WBC RBC Hgb Hct MCV MCH MCHC RDW Plt Count Lymph % (Auto) [place] % (Auto) Lymph # (Auto) [place] # (Auto) Eos # (Auto) Seg Neutrophils % Seg Neuts % (Manual) Lymphocytes % (Manual) Monocytes % (Manual) Nucleated RBC % Seg Neutrophils # Seg Neutrophils # Man Lymphocytes # (Manual) Monocytes # (Manual) Eosinophils # (Manual) PT 37.3 H INR 3.73 H ABG pH POC ABG pCO2 21.1 L POC ABG pO2 61.7 L ABG pO2 ABG Base Excess ABG Hemoglobin 8.5 L ABG Oxyhemoglobin 88.1 L ABG Sodium ABG Potassium ABG Chloride 119.0 H ABG Glucose VBG pH Oxyhemoglobin Carboxyhemoglobin Sodium Potassium Chloride Carbon Dioxide BUN Creatinine Glucose POC Glucose Lactic Acid Calcium Phosphorus Magnesium Total Bilirubin 3.70 H Direct Bilirubin 3.0 H AST 2093 H ALT 822 H Alkaline Phosphatase Ammonia Total Creatine Kinase C-Reactive Protein Total Protein 4.0 L Albumin 2.5 L Lipase Arterial Blood Glucose Arterial Blood Ionized Calcium 4.0 L Urine WBC (Auto) U Epithel Cells (Auto) Acetaminophen Complement C3 Complement C4 Syphilis IgG Antibody HSV I Specific Ab Crossmatch 07/19/20 07/19/20 07/19/20 03:01 03:01 03:01 WBC 19.4 H RBC 2.50 L Hgb 8.5 L Hct 26.1 L MCV 104 H MCH 34 H MCHC RDW 22.3 H Plt Count Lymph % (Auto) 3.7 L [place] % (Auto) Lymph # (Auto) 0.7 L [place] # (Auto) 0.9 H Eos # (Auto) Seg Neutrophils % Seg Neuts % (Manual) Lymphocytes % (Manual) Monocytes % (Manual) Nucleated RBC % Seg Neutrophils # 17.7 H Seg Neutrophils # Man Lymphocytes # (Manual) Monocytes # (Manual) Eosinophils # (Manual) PT 35.0 H INR 3.45 H ABG pH POC ABG pCO2 POC ABG pO2 ABG pO2 ABG Base Excess ABG Hemoglobin ABG Oxyhemoglobin ABG Sodium ABG Potassium ABG Chloride ABG Glucose VBG pH Oxyhemoglobin Carboxyhemoglobin Sodium Potassium Chloride Carbon Dioxide BUN Creatinine Glucose POC Glucose Lactic Acid 5.90 H* Calcium Phosphorus Magnesium Total Bilirubin Direct Bilirubin AST ALT Alkaline Phosphatase Ammonia Total Creatine Kinase C-Reactive Protein Total Protein Albumin Lipase Arterial Blood Glucose Arterial Blood Ionized Calcium Urine WBC (Auto) U Epithel Cells (Auto) Acetaminophen Complement C3 Complement C4 Syphilis IgG Antibody HSV I Specific Ab Crossmatch 07/19/20 07/19/20 07/19/20 03:01 03:01 05:25 WBC RBC Hgb Hct MCV MCH MCHC RDW Plt Count Lymph % (Auto) [place] % (Auto) Lymph # (Auto) [place] # (Auto) Eos # (Auto) Seg Neutrophils % Seg Neuts % (Manual) Lymphocytes % (Manual) Monocytes % (Manual) Nucleated RBC % Seg Neutrophils # Seg Neutrophils # Man Lymphocytes # (Manual) Monocytes # (Manual) Eosinophils # (Manual) PT INR ABG pH POC ABG pCO2 POC ABG pO2 ABG pO2 ABG Base Excess ABG Hemoglobin ABG Oxyhemoglobin ABG Sodium ABG Potassium ABG Chloride ABG Glucose VBG pH Oxyhemoglobin Carboxyhemoglobin Sodium 149 H Potassium Chloride 116.6 H Carbon Dioxide 14 L BUN 48 H Creatinine 2.5 H Glucose POC Glucose 43 L Lactic Acid Calcium 7.4 L D Phosphorus Magnesium Total Bilirubin 3.70 H Direct Bilirubin AST 1730 H ALT 751 H Alkaline Phosphatase Ammonia 126.0 H Total Creatine Kinase C-Reactive Protein Total Protein 4.3 L Albumin 2.4 L Lipase Arterial Blood Glucose Arterial Blood Ionized Calcium Urine WBC (Auto) U Epithel Cells (Auto) Acetaminophen Complement C3 Complement C4 Syphilis IgG Antibody HSV I Specific Ab Crossmatch 07/19/20 07/19/20 07/19/20 05:41 05:41 05:41 WBC 15.9 H RBC 1.80 L Hgb 6.2 L Hct 19.7 L* D MCV 109 H MCH 35 H MCHC RDW 22.7 H Plt Count 99 L Lymph % (Auto) 9.7 L [place] % (Auto) 8.3 H Lymph # (Auto) [place] # (Auto) 1.3 H Eos # (Auto) Seg Neutrophils % 81.2 H Seg Neuts % (Manual) 85.0 H Lymphocytes % (Manual) 12.0 L Monocytes % (Manual) Nucleated RBC % Seg Neutrophils # 12.9 H Seg Neutrophils # Man 13.5 H Lymphocytes # (Manual) Monocytes # (Manual) Eosinophils # (Manual) PT 51.8 H INR 5.63 H* ABG pH POC ABG pCO2 POC ABG pO2 ABG pO2 ABG Base Excess ABG Hemoglobin ABG Oxyhemoglobin ABG Sodium ABG Potassium ABG Chloride ABG Glucose VBG pH Oxyhemoglobin Carboxyhemoglobin Sodium 150 H Potassium Chloride 117.6 H Carbon Dioxide 10 L BUN 50 H Creatinine 2.8 H Glucose 308 H POC Glucose Lactic Acid Calcium 6.8 L Phosphorus Magnesium Total Bilirubin 2.20 H Direct Bilirubin AST 1224 H ALT 484 H Alkaline Phosphatase Ammonia Total Creatine Kinase C-Reactive Protein Total Protein 2.8 L D Albumin 1.6 L Lipase Arterial Blood Glucose Arterial Blood Ionized Calcium Urine WBC (Auto) U Epithel Cells (Auto) Acetaminophen Complement C3 Complement C4 Syphilis IgG Antibody HSV I Specific Ab Crossmatch 07/19/20 07/19/20 07/19/20 05:41 05:41 05:53 WBC RBC Hgb Hct MCV MCH MCHC RDW Plt Count Lymph % (Auto) [place] % (Auto) Lymph # (Auto) [place] # (Auto) Eos # (Auto) Seg Neutrophils % Seg Neuts % (Manual) Lymphocytes % (Manual) Monocytes % (Manual) Nucleated RBC % Seg Neutrophils # Seg Neutrophils # Man Lymphocytes # (Manual) Monocytes # (Manual) Eosinophils # (Manual) PT INR ABG pH POC ABG pCO2 POC ABG pO2 ABG pO2 ABG Base Excess ABG Hemoglobin ABG Oxyhemoglobin ABG Sodium ABG Potassium ABG Chloride ABG Glucose VBG pH Oxyhemoglobin Carboxyhemoglobin Sodium Potassium Chloride Carbon Dioxide BUN Creatinine Glucose POC Glucose 186 H Lactic Acid 12.00 H* Calcium Phosphorus Magnesium Total Bilirubin Direct Bilirubin AST ALT Alkaline Phosphatase Ammonia 96.0 H Total Creatine Kinase C-Reactive Protein Total Protein Albumin Lipase Arterial Blood Glucose Arterial Blood Ionized Calcium Urine WBC (Auto) U Epithel Cells (Auto) Acetaminophen Complement C3 Complement C4 Syphilis IgG Antibody HSV I Specific Ab Crossmatch 07/19/20 07/19/20 07/19/20 06:14 07:35 07:35 WBC RBC Hgb Hct MCV MCH MCHC RDW Plt Count Lymph % (Auto) [place] % (Auto) Lymph # (Auto) [place] # (Auto) Eos # (Auto) Seg Neutrophils % Seg Neuts % (Manual) Lymphocytes % (Manual) Monocytes % (Manual) Nucleated RBC % Seg Neutrophils # Seg Neutrophils # Man Lymphocytes # (Manual) Monocytes # (Manual) Eosinophils # (Manual) PT INR ABG pH 6.904 L POC ABG pCO2 50.8 H POC ABG pO2 140.1 H ABG pO2 ABG Base Excess ABG Hemoglobin 7.9 L ABG Oxyhemoglobin ABG Sodium ABG Potassium ABG Chloride 120.0 H ABG Glucose 220 H VBG pH Oxyhemoglobin Carboxyhemoglobin 1.7 H Sodium Potassium Chloride Carbon Dioxide BUN Creatinine Glucose POC Glucose Lactic Acid 8.50 H* Calcium Phosphorus Magnesium Total Bilirubin Direct Bilirubin AST ALT Alkaline Phosphatase Ammonia Total Creatine Kinase C-Reactive Protein Total Protein Albumin Lipase Arterial Blood Glucose 220 H Arterial Blood Ionized Calcium 4.1 L Urine WBC (Auto) U Epithel Cells (Auto) Acetaminophen Complement C3 Complement C4 Syphilis IgG Antibody HSV I Specific Ab Crossmatch See Detail 07/19/20 07/19/20 07/19/20 12:45 22:54 Unknown WBC 26.7 H RBC 2.68 L Hgb 9.0 L Hct 26.8 L D MCV 100 H MCH 34 H MCHC RDW 20.2 H Plt Count 104 L Lymph % (Auto) [place] % (Auto) Lymph # (Auto) [place] # (Auto) Eos # (Auto) Seg Neutrophils % Seg Neuts % (Manual) Lymphocytes % (Manual) 6.0 L Monocytes % (Manual) 8.0 H Nucleated RBC % Seg Neutrophils # Seg Neutrophils # Man 17.6 H Lymphocytes # (Manual) Monocytes # (Manual) 2.1 H Eosinophils # (Manual) PT INR ABG pH POC ABG pCO2 POC ABG pO2 ABG pO2 ABG Base Excess ABG Hemoglobin ABG Oxyhemoglobin ABG Sodium ABG Potassium ABG Chloride ABG Glucose VBG pH Oxyhemoglobin Carboxyhemoglobin Sodium Potassium Chloride Carbon Dioxide BUN Creatinine Glucose POC Glucose 121 H Lactic Acid 6.20 H* Calcium Phosphorus Magnesium Total Bilirubin Direct Bilirubin AST ALT Alkaline Phosphatase Ammonia Total Creatine Kinase C-Reactive Protein Total Protein Albumin Lipase Arterial Blood Glucose Arterial Blood Ionized Calcium Urine WBC (Auto) U Epithel Cells (Auto) Acetaminophen Complement C3 Complement C4 Syphilis IgG Antibody HSV I Specific Ab Crossmatch 07/19/20 07/19/20 07/19/20 Unknown Unknown Unknown WBC RBC Hgb Hct MCV MCH MCHC RDW Plt Count Lymph % (Auto) [place] % (Auto) Lymph # (Auto) [place] # (Auto) Eos # (Auto) Seg Neutrophils % Seg Neuts % (Manual) Lymphocytes % (Manual) Monocytes % (Manual) Nucleated RBC % Seg Neutrophils # Seg Neutrophils # Man Lymphocytes # (Manual) Monocytes # (Manual) Eosinophils # (Manual) PT 33.4 H INR 3.25 H ABG pH POC ABG pCO2 POC ABG pO2 ABG pO2 ABG Base Excess ABG Hemoglobin ABG Oxyhemoglobin ABG Sodium ABG Potassium ABG Chloride ABG Glucose VBG pH Oxyhemoglobin Carboxyhemoglobin Sodium 148 H Potassium 2.6 L* D Chloride 117.3 H Carbon Dioxide 18 L D BUN 48 H Creatinine 2.4 H Glucose 207 H POC Glucose Lactic Acid 3.90 H* Calcium 6.5 L Phosphorus Magnesium Total Bilirubin 3.80 H Direct Bilirubin AST 1228 H ALT 516 H Alkaline Phosphatase Ammonia Total Creatine Kinase C-Reactive Protein Total Protein 3.6 L D Albumin 1.9 L Lipase Arterial Blood Glucose Arterial Blood Ionized Calcium Urine WBC (Auto) U Epithel Cells (Auto) Acetaminophen Complement C3 Complement C4 Syphilis IgG Antibody HSV I Specific Ab Crossmatch 07/20/20 07/20/20 07/20/20 02:41 05:04 06:39 WBC RBC Hgb Hct MCV MCH MCHC RDW Plt Count Lymph % (Auto) [place] % (Auto) Lymph # (Auto) [place] # (Auto) Eos # (Auto) Seg Neutrophils % Seg Neuts % (Manual) Lymphocytes % (Manual) Monocytes % (Manual) Nucleated RBC % Seg Neutrophils # Seg Neutrophils # Man Lymphocytes # (Manual) Monocytes # (Manual) Eosinophils # (Manual) PT INR ABG pH POC ABG pCO2 POC ABG pO2 64.7 L ABG pO2 ABG Base Excess ABG Hemoglobin 8.8 L ABG Oxyhemoglobin 91.0 L ABG Sodium ABG Potassium 2.6 L ABG Chloride 116.0 H ABG Glucose 143 H VBG pH Oxyhemoglobin Carboxyhemoglobin 2.0 H Sodium Potassium Chloride Carbon Dioxide BUN Creatinine Glucose POC Glucose 141 H 123 H Lactic Acid Calcium Phosphorus Magnesium Total Bilirubin Direct Bilirubin AST ALT Alkaline Phosphatase Ammonia Total Creatine Kinase C-Reactive Protein Total Protein Albumin Lipase Arterial Blood Glucose 143 H Arterial Blood Ionized Calcium 3.9 L Urine WBC (Auto) U Epithel Cells (Auto) Acetaminophen Complement C3 Complement C4 Syphilis IgG Antibody HSV I Specific Ab Crossmatch 07/20/20 07/20/20 07/20/20 10:42 11:07 11:07 WBC 27.7 H RBC 2.50 L Hgb 8.4 L Hct 24.4 L MCV 98 H MCH 34 H MCHC 35 H RDW 19.8 H Plt Count 78 L Lymph % (Auto) [place] % (Auto) Lymph # (Auto) [place] # (Auto) Eos # (Auto) Seg Neutrophils % Seg Neuts % (Manual) Lymphocytes % (Manual) Monocytes % (Manual) Nucleated RBC % Seg Neutrophils # Seg Neutrophils # Man Lymphocytes # (Manual) Monocytes # (Manual) Eosinophils # (Manual) PT INR ABG pH POC ABG pCO2 POC ABG pO2 113.1 H ABG pO2 ABG Base Excess ABG Hemoglobin 8.8 L ABG Oxyhemoglobin ABG Sodium ABG Potassium 2.9 L ABG Chloride 114.0 H ABG Glucose 135 H VBG pH Oxyhemoglobin Carboxyhemoglobin 1.9 H Sodium 147 H Potassium Chloride 114.2 H Carbon Dioxide BUN 52 H Creatinine 1.8 H Glucose 143 H POC Glucose Lactic Acid Calcium 6.5 L Phosphorus Magnesium Total Bilirubin Direct Bilirubin AST ALT Alkaline Phosphatase Ammonia Total Creatine Kinase C-Reactive Protein Total Protein Albumin Lipase Arterial Blood Glucose 135 H Arterial Blood Ionized Calcium 3.8 L Urine WBC (Auto) U Epithel Cells (Auto) Acetaminophen Complement C3 Complement C4 Syphilis IgG Antibody HSV I Specific Ab Crossmatch 07/20/20 07/21/20 07/21/20 15:05 00:03 02:07 WBC RBC Hgb Hct MCV MCH MCHC RDW Plt Count Lymph % (Auto) [place] % (Auto) Lymph # (Auto) [place] # (Auto) Eos # (Auto) Seg Neutrophils % Seg Neuts % (Manual) Lymphocytes % (Manual) Monocytes % (Manual) Nucleated RBC % Seg Neutrophils # Seg Neutrophils # Man Lymphocytes # (Manual) Monocytes # (Manual) Eosinophils # (Manual) PT INR ABG pH POC ABG pCO2 POC ABG pO2 ABG pO2 ABG Base Excess ABG Hemoglobin ABG Oxyhemoglobin ABG Sodium ABG Potassium ABG Chloride ABG Glucose VBG pH Oxyhemoglobin Carboxyhemoglobin Sodium 146 H Potassium 2.8 L* 3.1 L Chloride 112.1 H Carbon Dioxide BUN 54 H Creatinine 1.9 H Glucose 107 H POC Glucose 145 H Lactic Acid Calcium 6.8 L Phosphorus Magnesium 0.90 L* Total Bilirubin Direct Bilirubin AST ALT Alkaline Phosphatase Ammonia Total Creatine Kinase C-Reactive Protein Total Protein Albumin Lipase Arterial Blood Glucose Arterial Blood Ionized Calcium Urine WBC (Auto) U Epithel Cells (Auto) Acetaminophen Complement C3 Complement C4 Syphilis IgG Antibody HSV I Specific Ab Crossmatch 07/21/20 07/21/20 07/21/20 03:42 05:21 10:59 WBC RBC Hgb Hct MCV MCH MCHC RDW Plt Count Lymph % (Auto) [place] % (Auto) Lymph # (Auto) [place] # (Auto) Eos # (Auto) Seg Neutrophils % Seg Neuts % (Manual) Lymphocytes % (Manual) Monocytes % (Manual) Nucleated RBC % Seg Neutrophils # Seg Neutrophils # Man Lymphocytes # (Manual) Monocytes # (Manual) Eosinophils # (Manual) PT INR ABG pH POC ABG pCO2 POC ABG pO2 ABG pO2 98.2 H ABG Base Excess -3.8 L ABG Hemoglobin 8.7 L ABG Oxyhemoglobin ABG Sodium ABG Potassium ABG Chloride ABG Glucose VBG pH Oxyhemoglobin 94.6 L Carboxyhemoglobin Sodium Potassium Chloride Carbon Dioxide BUN Creatinine Glucose POC Glucose 150 H 161 H Lactic Acid Calcium Phosphorus Magnesium Total Bilirubin Direct Bilirubin AST ALT Alkaline Phosphatase Ammonia Total Creatine Kinase C-Reactive Protein Total Protein Albumin Lipase Arterial Blood Glucose Arterial Blood Ionized Calcium Urine WBC (Auto) U Epithel Cells (Auto) Acetaminophen Complement C3 Complement C4 Syphilis IgG Antibody HSV I Specific Ab Crossmatch 07/21/20 07/21/20 07/21/20 13:59 16:14 17:22 WBC RBC Hgb Hct MCV MCH MCHC RDW Plt Count Lymph % (Auto) [place] % (Auto) Lymph # (Auto) [place] # (Auto) Eos # (Auto) Seg Neutrophils % Seg Neuts % (Manual) Lymphocytes % (Manual) Monocytes % (Manual) Nucleated RBC % Seg Neutrophils # Seg Neutrophils # Man Lymphocytes # (Manual) Monocytes # (Manual) Eosinophils # (Manual) PT INR ABG pH POC ABG pCO2 POC ABG pO2 ABG pO2 ABG Base Excess ABG Hemoglobin ABG Oxyhemoglobin ABG Sodium ABG Potassium ABG Chloride ABG Glucose VBG pH Oxyhemoglobin Carboxyhemoglobin Sodium Potassium 3.0 L Chloride 112.5 H Carbon Dioxide 16 L D BUN 48 H Creatinine Glucose 157 H POC Glucose 164 H 171 H Lactic Acid Calcium 7.3 L Phosphorus Magnesium Total Bilirubin Direct Bilirubin AST ALT Alkaline Phosphatase Ammonia Total Creatine Kinase C-Reactive Protein Total Protein Albumin Lipase Arterial Blood Glucose Arterial Blood Ionized Calcium Urine WBC (Auto) U Epithel Cells (Auto) Acetaminophen Complement C3 Complement C4 Syphilis IgG Antibody HSV I Specific Ab Crossmatch 07/21/20 07/22/20 07/22/20 20:06 04:25 07:57 WBC 28.9 H RBC 2.35 L Hgb 8.0 L Hct 22.2 L MCV MCH 34 H MCHC 36 H RDW 20.5 H Plt Count 41 L Lymph % (Auto) [place] % (Auto) Lymph # (Auto) [place] # (Auto) Eos # (Auto) Seg Neutrophils % Seg Neuts % (Manual) 83.0 H Lymphocytes % (Manual) 6.0 L Monocytes % (Manual) Nucleated RBC % 2.0 H Seg Neutrophils # Seg Neutrophils # Man 24.0 H Lymphocytes # (Manual) Monocytes # (Manual) 1.4 H Eosinophils # (Manual) 0.6 H PT INR ABG pH 7.500 H POC ABG pCO2 POC ABG pO2 ABG pO2 104.9 H ABG Base Excess ABG Hemoglobin 8.6 L ABG Oxyhemoglobin ABG Sodium ABG Potassium ABG Chloride ABG Glucose VBG pH Oxyhemoglobin Carboxyhemoglobin Sodium Potassium Chloride Carbon Dioxide BUN Creatinine Glucose POC Glucose 128 H Lactic Acid Calcium Phosphorus Magnesium Total Bilirubin Direct Bilirubin AST ALT Alkaline Phosphatase Ammonia Total Creatine Kinase C-Reactive Protein Total Protein Albumin Lipase Arterial Blood Glucose Arterial Blood Ionized Calcium Urine WBC (Auto) U Epithel Cells (Auto) Acetaminophen Complement C3 Complement C4 Syphilis IgG Antibody HSV I Specific Ab Crossmatch 07/22/20 07/22/20 07/22/20 07:57 07:57 12:08 WBC RBC Hgb Hct MCV MCH MCHC RDW Plt Count Lymph % (Auto) [place] % (Auto) Lymph # (Auto) [place] # (Auto) Eos # (Auto) Seg Neutrophils % Seg Neuts % (Manual) Lymphocytes % (Manual) Monocytes % (Manual) Nucleated RBC % Seg Neutrophils # Seg Neutrophils # Man Lymphocytes # (Manual) Monocytes # (Manual) Eosinophils # (Manual) PT 21.6 H INR 1.87 H ABG pH POC ABG pCO2 POC ABG pO2 ABG pO2 ABG Base Excess ABG Hemoglobin ABG Oxyhemoglobin ABG Sodium ABG Potassium ABG Chloride ABG Glucose VBG pH Oxyhemoglobin Carboxyhemoglobin Sodium 147 H D Potassium 2.6 L* Chloride 112.7 H Carbon Dioxide BUN 51 H Creatinine Glucose 104 H POC Glucose Lactic Acid Calcium 7.8 L Phosphorus 1.10 L Magnesium 1.50 L Total Bilirubin 9.80 H 11.10 H Direct Bilirubin 8.8 H AST 234 H 231 H ALT 297 H 286 H Alkaline Phosphatase 296 H 323 H Ammonia Total Creatine Kinase C-Reactive Protein Total Protein 4.1 L 3.6 L Albumin 1.8 L 2.0 L Lipase Arterial Blood Glucose Arterial Blood Ionized Calcium Urine WBC (Auto) U Epithel Cells (Auto) Acetaminophen Complement C3 Complement C4 Syphilis IgG Antibody HSV I Specific Ab Crossmatch 07/23/20 07/23/20 07/23/20 01:53 02:51 07:38 WBC RBC Hgb Hct MCV MCH MCHC RDW Plt Count Lymph % (Auto) [place] % (Auto) Lymph # (Auto) [place] # (Auto) Eos # (Auto) Seg Neutrophils % Seg Neuts % (Manual) Lymphocytes % (Manual) Monocytes % (Manual) Nucleated RBC % Seg Neutrophils # Seg Neutrophils # Man Lymphocytes # (Manual) Monocytes # (Manual) Eosinophils # (Manual) PT INR ABG pH 7.313 L POC ABG pCO2 POC ABG pO2 67.0 L ABG pO2 ABG Base Excess ABG Hemoglobin ABG Oxyhemoglobin ABG Sodium ABG Potassium 3.2 L ABG Chloride 115.0 H ABG Glucose VBG pH Oxyhemoglobin Carboxyhemoglobin Sodium Potassium Chloride Carbon Dioxide BUN Creatinine Glucose POC Glucose 64 L 62 L Lactic Acid Calcium Phosphorus Magnesium Total Bilirubin Direct Bilirubin AST ALT Alkaline Phosphatase Ammonia Total Creatine Kinase C-Reactive Protein Total Protein Albumin Lipase Arterial Blood Glucose Arterial Blood Ionized Calcium 4.3 L Urine WBC (Auto) U Epithel Cells (Auto) Acetaminophen Complement C3 Complement C4 Syphilis IgG Antibody HSV I Specific Ab Crossmatch 07/23/20 07/23/20 07/23/20 07:39 07:39 23:52 WBC 37.0 H RBC 2.30 L Hgb 7.8 L Hct 22.5 L MCV 98 H MCH 34 H MCHC 35 H RDW 21.3 H Plt Count 55 L Lymph % (Auto) [place] % (Auto) Lymph # (Auto) [place] # (Auto) Eos # (Auto) Seg Neutrophils % Seg Neuts % (Manual) 78.0 H Lymphocytes % (Manual) 10.0 L Monocytes % (Manual) Nucleated RBC % 3.0 H Seg Neutrophils # Seg Neutrophils # Man 28.9 H Lymphocytes # (Manual) Monocytes # (Manual) 1.1 H Eosinophils # (Manual) 0.7 H PT INR ABG pH POC ABG pCO2 POC ABG pO2 ABG pO2 ABG Base Excess ABG Hemoglobin ABG Oxyhemoglobin ABG Sodium ABG Potassium ABG Chloride ABG Glucose VBG pH Oxyhemoglobin Carboxyhemoglobin Sodium 148 H Potassium Chloride 114.0 H Carbon Dioxide BUN 59 H Creatinine 1.5 H Glucose POC Glucose Lactic Acid Calcium 7.7 L Phosphorus 4.60 H D Magnesium Total Bilirubin 11.20 H Direct Bilirubin AST 245 H ALT 242 H Alkaline Phosphatase 423 H Ammonia Total Creatine Kinase C-Reactive Protein 17.20 H Total Protein 4.3 L Albumin 1.8 L Lipase Arterial Blood Glucose Arterial Blood Ionized Calcium Urine WBC (Auto) U Epithel Cells (Auto) Acetaminophen Complement C3 Complement C4 Syphilis IgG Antibody HSV I Specific Ab Crossmatch 07/23/20 07/23/20 07/23/20 23:52 23:52 Unknown WBC RBC Hgb Hct MCV MCH MCHC RDW Plt Count Lymph % (Auto) [place] % (Auto) Lymph # (Auto) [place] # (Auto) Eos # (Auto) Seg Neutrophils % Seg Neuts % (Manual) Lymphocytes % (Manual) Monocytes % (Manual) Nucleated RBC % Seg Neutrophils # Seg Neutrophils # Man Lymphocytes # (Manual) Monocytes # (Manual) Eosinophils # (Manual) PT INR ABG pH POC ABG pCO2 POC ABG pO2 ABG pO2 ABG Base Excess ABG Hemoglobin ABG Oxyhemoglobin ABG Sodium ABG Potassium ABG Chloride ABG Glucose VBG pH Oxyhemoglobin Carboxyhemoglobin Sodium Potassium Chloride Carbon Dioxide BUN Creatinine Glucose POC Glucose Lactic Acid Calcium Phosphorus Magnesium Total Bilirubin Direct Bilirubin AST ALT Alkaline Phosphatase Ammonia Total Creatine Kinase C-Reactive Protein Total Protein Albumin Lipase Arterial Blood Glucose Arterial Blood Ionized Calcium Urine WBC (Auto) 102.0 H U Epithel Cells (Auto) Acetaminophen Complement C3 55 L Complement C4 11 L Syphilis IgG Antibody HSV I Specific Ab Crossmatch 07/24/20 07/24/20 07/24/20 03:39 10:14 10:14 WBC RBC Hgb Hct MCV MCH MCHC RDW Plt Count Lymph % (Auto) [place] % (Auto) Lymph # (Auto) [place] # (Auto) Eos # (Auto) Seg Neutrophils % Seg Neuts % (Manual) Lymphocytes % (Manual) Monocytes % (Manual) Nucleated RBC % Seg Neutrophils # Seg Neutrophils # Man Lymphocytes # (Manual) Monocytes # (Manual) Eosinophils # (Manual) PT INR ABG pH POC ABG pCO2 POC ABG pO2 147.8 H ABG pO2 ABG Base Excess ABG Hemoglobin 5.5 L ABG Oxyhemoglobin ABG Sodium ABG Potassium 3.0 L ABG Chloride 117.0 H ABG Glucose VBG pH Oxyhemoglobin Carboxyhemoglobin Sodium 150 H Potassium 2.6 L* D Chloride 117.1 H Carbon Dioxide BUN 48 H Creatinine Glucose POC Glucose Lactic Acid Calcium 8.2 L Phosphorus 2.30 L D Magnesium 1.50 L Total Bilirubin Direct Bilirubin AST ALT Alkaline Phosphatase Ammonia Total Creatine Kinase C-Reactive Protein Total Protein Albumin Lipase Arterial Blood Glucose Arterial Blood Ionized Calcium Urine WBC (Auto) U Epithel Cells (Auto) Acetaminophen Complement C3 Complement C4 Syphilis IgG Antibody HSV I Specific Ab Crossmatch 07/24/20 07/24/20 07/24/20 10:14 10:14 21:31 WBC RBC Hgb Hct MCV MCH MCHC RDW Plt Count Lymph % (Auto) [place] % (Auto) Lymph # (Auto) [place] # (Auto) Eos # (Auto) Seg Neutrophils % Seg Neuts % (Manual) Lymphocytes % (Manual) Monocytes % (Manual) Nucleated RBC % Seg Neutrophils # Seg Neutrophils # Man Lymphocytes # (Manual) Monocytes # (Manual) Eosinophils # (Manual) PT 22.7 H INR 1.99 H ABG pH POC ABG pCO2 POC ABG pO2 ABG pO2 ABG Base Excess ABG Hemoglobin ABG Oxyhemoglobin ABG Sodium ABG Potassium ABG Chloride ABG Glucose VBG pH Oxyhemoglobin Carboxyhemoglobin Sodium Potassium Chloride Carbon Dioxide BUN Creatinine Glucose POC Glucose 59 L Lactic Acid Calcium Phosphorus Magnesium Total Bilirubin 10.30 H Direct Bilirubin 7.8 H AST 144 H ALT 129 H Alkaline Phosphatase 308 H Ammonia Total Creatine Kinase C-Reactive Protein Total Protein 4.2 L Albumin 2.4 L Lipase Arterial Blood Glucose Arterial Blood Ionized Calcium Urine WBC (Auto) U Epithel Cells (Auto) Acetaminophen Complement C3 Complement C4 Syphilis IgG Antibody HSV I Specific Ab Crossmatch 07/25/20 07/25/20 07/25/20 05:19 05:20 08:38 WBC RBC Hgb Hct MCV MCH MCHC RDW Plt Count Lymph % (Auto) [place] % (Auto) Lymph # (Auto) [place] # (Auto) Eos # (Auto) Seg Neutrophils % Seg Neuts % (Manual) Lymphocytes % (Manual) Monocytes % (Manual) Nucleated RBC % Seg Neutrophils # Seg Neutrophils # Man Lymphocytes # (Manual) Monocytes # (Manual) Eosinophils # (Manual) PT INR ABG pH 7.458 H POC ABG pCO2 POC ABG pO2 77.5 L ABG pO2 ABG Base Excess ABG Hemoglobin 8.5 L ABG Oxyhemoglobin 93.9 L ABG Sodium 147.8 H ABG Potassium 2.9 L ABG Chloride 118.0 H ABG Glucose VBG pH Oxyhemoglobin Carboxyhemoglobin 2.1 H Sodium Potassium Chloride Carbon Dioxide BUN Creatinine Glucose POC Glucose 55 L 107 H Lactic Acid Calcium Phosphorus Magnesium Total Bilirubin Direct Bilirubin AST ALT Alkaline Phosphatase Ammonia Total Creatine Kinase C-Reactive Protein Total Protein Albumin Lipase Arterial Blood Glucose Arterial Blood Ionized Calcium Urine WBC (Auto) U Epithel Cells (Auto) Acetaminophen Complement C3 Complement C4 Syphilis IgG Antibody HSV I Specific Ab Crossmatch 07/25/20 07/25/20 07/25/20 09:53 09:53 21:54 WBC RBC Hgb Hct MCV MCH MCHC RDW Plt Count Lymph % (Auto) [place] % (Auto) Lymph # (Auto) [place] # (Auto) Eos # (Auto) Seg Neutrophils % Seg Neuts % (Manual) Lymphocytes % (Manual) Monocytes % (Manual) Nucleated RBC % Seg Neutrophils # Seg Neutrophils # Man Lymphocytes # (Manual) Monocytes # (Manual) Eosinophils # (Manual) PT 22.3 H INR 1.94 H ABG pH POC ABG pCO2 POC ABG pO2 ABG pO2 ABG Base Excess ABG Hemoglobin ABG Oxyhemoglobin ABG Sodium ABG Potassium ABG Chloride ABG Glucose VBG pH Oxyhemoglobin Carboxyhemoglobin Sodium 154 H Potassium 2.8 L* Chloride 121.5 H Carbon Dioxide BUN 47 H Creatinine Glucose POC Glucose 112 H Lactic Acid Calcium Phosphorus Magnesium Total Bilirubin 11.60 H Direct Bilirubin AST 141 H ALT 115 H Alkaline Phosphatase 355 H Ammonia Total Creatine Kinase C-Reactive Protein Total Protein 4.3 L Albumin 2.2 L Lipase Arterial Blood Glucose Arterial Blood Ionized Calcium Urine WBC (Auto) U Epithel Cells (Auto) Acetaminophen Complement C3 Complement C4 Syphilis IgG Antibody HSV I Specific Ab Crossmatch 07/26/20 07/26/20 07/26/20 01:54 05:38 07:48 WBC RBC Hgb Hct MCV MCH MCHC RDW Plt Count Lymph % (Auto) [place] % (Auto) Lymph # (Auto) [place] # (Auto) Eos # (Auto) Seg Neutrophils % Seg Neuts % (Manual) Lymphocytes % (Manual) Monocytes % (Manual) Nucleated RBC % Seg Neutrophils # Seg Neutrophils # Man Lymphocytes # (Manual) Monocytes # (Manual) Eosinophils # (Manual) PT INR ABG pH POC ABG pCO2 POC ABG pO2 ABG pO2 ABG Base Excess ABG Hemoglobin ABG Oxyhemoglobin ABG Sodium ABG Potassium ABG Chloride ABG Glucose VBG pH Oxyhemoglobin Carboxyhemoglobin Sodium Potassium Chloride Carbon Dioxide BUN Creatinine Glucose POC Glucose 130 H 155 H 155 H Lactic Acid Calcium Phosphorus Magnesium Total Bilirubin Direct Bilirubin AST ALT Alkaline Phosphatase Ammonia Total Creatine Kinase C-Reactive Protein Total Protein Albumin Lipase Arterial Blood Glucose Arterial Blood Ionized Calcium Urine WBC (Auto) U Epithel Cells (Auto) Acetaminophen Complement C3 Complement C4 Syphilis IgG Antibody HSV I Specific Ab Crossmatch 07/26/20 07/26/20 07/26/20 11:31 14:47 14:47 WBC RBC Hgb Hct MCV MCH MCHC RDW Plt Count Lymph % (Auto) [place] % (Auto) Lymph # (Auto) [place] # (Auto) Eos # (Auto) Seg Neutrophils % Seg Neuts % (Manual) Lymphocytes % (Manual) Monocytes % (Manual) Nucleated RBC % Seg Neutrophils # Seg Neutrophils # Man Lymphocytes # (Manual) Monocytes # (Manual) Eosinophils # (Manual) PT 21.2 H INR 1.83 H ABG pH POC ABG pCO2 POC ABG pO2 ABG pO2 ABG Base Excess ABG Hemoglobin ABG Oxyhemoglobin ABG Sodium ABG Potassium ABG Chloride ABG Glucose VBG pH Oxyhemoglobin Carboxyhemoglobin Sodium 148 H Potassium 3.4 L D Chloride 118.2 H Carbon Dioxide BUN 42 H Creatinine Glucose 177 H POC Glucose 147 H Lactic Acid Calcium Phosphorus Magnesium Total Bilirubin Direct Bilirubin AST ALT Alkaline Phosphatase Ammonia Total Creatine Kinase C-Reactive Protein Total Protein Albumin Lipase Arterial Blood Glucose Arterial Blood Ionized Calcium Urine WBC (Auto) U Epithel Cells (Auto) Acetaminophen Complement C3 Complement C4 Syphilis IgG Antibody HSV I Specific Ab Crossmatch 07/26/20 07/26/20 07/26/20 14:47 16:57 21:36 WBC RBC Hgb Hct MCV MCH MCHC RDW Plt Count Lymph % (Auto) [place] % (Auto) Lymph # (Auto) [place] # (Auto) Eos # (Auto) Seg Neutrophils % Seg Neuts % (Manual) Lymphocytes % (Manual) Monocytes % (Manual) Nucleated RBC % Seg Neutrophils # Seg Neutrophils # Man Lymphocytes # (Manual) Monocytes # (Manual) Eosinophils # (Manual) PT INR ABG pH POC ABG pCO2 POC ABG pO2 ABG pO2 ABG Base Excess ABG Hemoglobin ABG Oxyhemoglobin ABG Sodium ABG Potassium ABG Chloride ABG Glucose VBG pH Oxyhemoglobin Carboxyhemoglobin Sodium Potassium Chloride Carbon Dioxide BUN Creatinine Glucose POC Glucose 149 H 129 H Lactic Acid Calcium Phosphorus Magnesium Total Bilirubin 11.30 H Direct Bilirubin 8.6 H AST 139 H ALT 109 H Alkaline Phosphatase 368 H Ammonia Total Creatine Kinase C-Reactive Protein Total Protein 4.1 L Albumin 2.3 L Lipase Arterial Blood Glucose Arterial Blood Ionized Calcium Urine WBC (Auto) U Epithel Cells (Auto) Acetaminophen Complement C3 Complement C4 Syphilis IgG Antibody HSV I Specific Ab Crossmatch 07/27/20 07/27/20 07/27/20 02:03 04:45 04:45 WBC 22.2 H RBC 1.95 L Hgb 6.5 L Hct 18.9 L* MCV MCH 34 H MCHC 35 H RDW 21.3 H Plt Count 29 L Lymph % (Auto) [place] % (Auto) Lymph # (Auto) [place] # (Auto) Eos # (Auto) Seg Neutrophils % Seg Neuts % (Manual) 82.0 H Lymphocytes % (Manual) 3.0 L Monocytes % (Manual) Nucleated RBC % Seg Neutrophils # Seg Neutrophils # Man 18.2 H Lymphocytes # (Manual) 0.7 L Monocytes # (Manual) Eosinophils # (Manual) PT INR ABG pH POC ABG pCO2 POC ABG pO2 ABG pO2 ABG Base Excess ABG Hemoglobin ABG Oxyhemoglobin ABG Sodium ABG Potassium ABG Chloride ABG Glucose VBG pH Oxyhemoglobin Carboxyhemoglobin Sodium 150 H Potassium 3.4 L Chloride 119.4 H Carbon Dioxide BUN 47 H Creatinine Glucose 137 H POC Glucose 134 H Lactic Acid Calcium Phosphorus Magnesium Total Bilirubin 9.60 H Direct Bilirubin AST 120 H ALT 89 H Alkaline Phosphatase 340 H Ammonia Total Creatine Kinase C-Reactive Protein Total Protein 3.7 L Albumin 2.1 L Lipase Arterial Blood Glucose Arterial Blood Ionized Calcium Urine WBC (Auto) U Epithel Cells (Auto) Acetaminophen Complement C3 Complement C4 Syphilis IgG Antibody HSV I Specific Ab Crossmatch 07/27/20 07/27/20 07/27/20 05:36 08:45 10:28 WBC RBC Hgb Hct MCV MCH MCHC RDW Plt Count Lymph % (Auto) [place] % (Auto) Lymph # (Auto) [place] # (Auto) Eos # (Auto) Seg Neutrophils % Seg Neuts % (Manual) Lymphocytes % (Manual) Monocytes % (Manual) Nucleated RBC % Seg Neutrophils # Seg Neutrophils # Man Lymphocytes # (Manual) Monocytes # (Manual) Eosinophils # (Manual) PT INR ABG pH POC ABG pCO2 POC ABG pO2 ABG pO2 ABG Base Excess ABG Hemoglobin ABG Oxyhemoglobin ABG Sodium ABG Potassium ABG Chloride ABG Glucose VBG pH Oxyhemoglobin Carboxyhemoglobin Sodium Potassium Chloride Carbon Dioxide BUN Creatinine Glucose POC Glucose 126 H 149 H Lactic Acid Calcium Phosphorus Magnesium Total Bilirubin Direct Bilirubin AST ALT Alkaline Phosphatase Ammonia Total Creatine Kinase C-Reactive Protein Total Protein Albumin Lipase Arterial Blood Glucose Arterial Blood Ionized Calcium Urine WBC (Auto) U Epithel Cells (Auto) Acetaminophen Complement C3 Complement C4 Syphilis IgG Antibody HSV I Specific Ab Crossmatch See Detail 07/27/20 07/28/20 15:32 00:32 WBC RBC Hgb 9.5 L D Hct 28.6 L D MCV MCH MCHC RDW Plt Count Lymph % (Auto) [place] % (Auto) Lymph # (Auto) [place] # (Auto) Eos # (Auto) Seg Neutrophils % Seg Neuts % (Manual) Lymphocytes % (Manual) Monocytes % (Manual) Nucleated RBC % Seg Neutrophils # Seg Neutrophils # Man Lymphocytes # (Manual) Monocytes # (Manual) Eosinophils # (Manual) PT INR ABG pH POC ABG pCO2 POC ABG pO2 ABG pO2 ABG Base Excess ABG Hemoglobin ABG Oxyhemoglobin ABG Sodium ABG Potassium ABG Chloride ABG Glucose VBG pH Oxyhemoglobin Carboxyhemoglobin Sodium Potassium Chloride Carbon Dioxide BUN Creatinine Glucose POC Glucose 113 H Lactic Acid Calcium Phosphorus Magnesium Total Bilirubin Direct Bilirubin AST ALT Alkaline Phosphatase Ammonia Total Creatine Kinase C-Reactive Protein Total Protein Albumin Lipase Arterial Blood Glucose Arterial Blood Ionized Calcium Urine WBC (Auto) U Epithel Cells (Auto) Acetaminophen Complement C3 Complement C4 Syphilis IgG Antibody HSV I Specific Ab Crossmatch
--- NOTE | 2020-07-28 10:29 | Progress Note ---
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 Acidosis Acute Liver Failure N/V UTI Syphilis Plan: -Cr up, monitor. -Na 146, on D10 per ICU. -Replace lytes PRN. -Making urine. -Monitor I/O's daily -Avoid nephrotoxic agents -Monitor renal function closely Subjective Date of service: 07/28/20 Principal diagnosis: Acute Liver Injury Interval history: Intubated on Vent. Objective - Exam Narrative Exam: General appearance: sedated on ventilator, intubated Respiratory: Present: Decreased Breath Sounds Cardiology: tachycardia Psychiatric: other (itnubated) - Vital Signs Vital signs: Vital Signs - 12hr 07/27/20 07/27/20 07/27/20 22:30 22:45 23:00 Temperature Pulse Rate 92 H 101 H 99 H Pulse Rate [ From Monitor] Respiratory 18 17 18 Rate Blood Pressure 109/49 120/62 107/51 O2 Sat by Pulse 92 92 91 Oximetry 07/27/20 07/27/20 07/27/20 23:15 23:30 23:45 Temperature Pulse Rate 95 H 90 101 H Pulse Rate [ From Monitor] Respiratory 13 17 17 Rate Blood Pressure 103/38 103/39 122/63 O2 Sat by Pulse 91 90 93 Oximetry 07/27/20 07/28/20 07/28/20 23:47 00:00 00:15 Temperature 98.8 F Pulse Rate 103 H 94 H 104 H Pulse Rate [ 103 H From Monitor] Respiratory 19 22 18 Rate Blood Pressure 122/63 105/39 117/57 O2 Sat by Pulse 92 90 92 Oximetry 07/28/20 07/28/20 07/28/20 00:30 00:45 01:00 Temperature Pulse Rate 101 H 100 H 105 H Pulse Rate [ From Monitor] Respiratory 21 20 17 Rate Blood Pressure 111/49 119/56 114/56 O2 Sat by Pulse 92 92 92 Oximetry 07/28/20 07/28/20 07/28/20 01:15 01:30 01:45 Temperature Pulse Rate 106 H 107 H 107 H Pulse Rate [ From Monitor] Respiratory 21 17 16 Rate Blood Pressure 113/54 114/56 113/55 O2 Sat by Pulse 91 92 92 Oximetry 07/28/20 07/28/20 07/28/20 02:00 02:15 02:30 Temperature Pulse Rate 100 H 105 H 106 H Pulse Rate [ From Monitor] Respiratory 15 18 20 Rate Blood Pressure 112/54 113/52 111/52 O2 Sat by Pulse 92 91 91 Oximetry 07/28/20 07/28/20 07/28/20 02:45 03:00 03:15 Temperature Pulse Rate 107 H 108 H 110 H Pulse Rate [ From Monitor] Respiratory 17 14 12 Rate Blood Pressure 111/49 113/47 114/50 O2 Sat by Pulse 91 92 92 Oximetry 07/28/20 07/28/20 07/28/20 03:30 03:45 04:00 Temperature 101.2 F H Pulse Rate 108 H 110 H 110 H Pulse Rate [ 103 H From Monitor] Respiratory 25 H 25 H 13 Rate Blood Pressure 114/51 114/55 113/55 O2 Sat by Pulse 92 92 92 Oximetry 07/28/20 07/28/20 07/28/20 04:15 04:30 04:45 Temperature Pulse Rate 109 H 101 H 103 H Pulse Rate [ From Monitor] Respiratory 18 15 24 Rate Blood Pressure 113/56 113/37 110/51 O2 Sat by Pulse 92 92 93 Oximetry 07/28/20 07/28/20 07/28/20 05:00 05:06 05:15 Temperature Pulse Rate 105 H 104 H 106 H Pulse Rate [ From Monitor] Respiratory 18 35 H Rate Blood Pressure 111/52 111/52 O2 Sat by Pulse 93 92 93 Oximetry 07/28/20 07/28/20 07/28/20 05:30 05:45 06:00 Temperature Pulse Rate 101 H 102 H 101 H Pulse Rate [ From Monitor] Respiratory 21 20 23 Rate Blood Pressure 108/48 109/52 109/54 O2 Sat by Pulse 92 93 93 Oximetry 07/28/20 07/28/20 07/28/20 06:15 06:30 06:45 Temperature Pulse Rate 101 H 102 H 101 H Pulse Rate [ From Monitor] Respiratory 25 H 18 25 H Rate Blood Pressure 110/54 114/57 110/57 O2 Sat by Pulse 93 93 93 Oximetry 07/28/20 07/28/20 07/28/20 07:00 07:15 07:30 Temperature Pulse Rate 95 H 102 H 102 H Pulse Rate [ From Monitor] Respiratory 13 20 20 Rate Blood Pressure 101/41 116/60 115/62 O2 Sat by Pulse 91 94 93 Oximetry 07/28/20 07/28/20 07/28/20 07:45 08:00 08:15 Temperature Pulse Rate 101 H 101 H 99 H Pulse Rate [ 98 H From Monitor] Respiratory 19 17 15 Rate Blood Pressure 113/60 117/63 111/59 O2 Sat by Pulse 93 93 93 Oximetry 07/28/20 07/28/20 07/28/20 08:30 08:45 09:00 Temperature Pulse Rate 100 H 99 H 97 H Pulse Rate [ From Monitor] Respiratory 15 17 23 Rate Blood Pressure 115/64 119/62 117/65 O2 Sat by Pulse 94 93 93 Oximetry 07/28/20 07/28/20 07/28/20 09:01 09:15 09:30 Temperature Pulse Rate 98 H 96 H 97 H Pulse Rate [ From Monitor] Respiratory 24 16 Rate Blood Pressure 117/65 118/64 118/66 O2 Sat by Pulse 93 93 93 Oximetry - Lab 07/28/20 00:32 07/28/20 09:42 Most recent lab results ABG pH 7.458 (7.320-7.450) H 07/25/20 05:20 ABG pCO2 31.2 mm Hg 07/22/20 04:25 ABG pO2 104.9 mm Hg (80.0-90.0) H 07/22/20 04:25 ABG HCO3 23.7 mmol/L (20.0-26.0) 07/22/20 04:25 ABG O2 Saturation 98.1 % (95.0-99.0) 07/22/20 04:25 Calcium 8.6 mg/dL (8.4-10.2) 07/27/20 04:45 Phosphorus 2.30 mg/dL (2.5-4.5) L D 07/24/20 10:14 Magnesium 2.10 mg/dL (1.7-2.3) 07/27/20 16:43 Medications & Allergies - Medications Allergies/Adverse Reactions: Allergies No Known Allergies Allergy (Verified 07/16/20 22:03) Home Medications: Home Medications Medication Instructions Recorded Confirmed Last Taken Type No Known Home Medications [No 07/17/20 07/17/20 Unknown History Reported Home Medications] Active Medications: Generic Name Dose Route Start Last Admin Trade Name Freq PRN Reason Stop Dose Admin Acetaminophen 650 mg 07/23/20 00:37 07/23/20 01:05 Acetaminophen 325 Mg/10.15 Ml Oral Liqd Unit Dose FEEDTUBE 650 mg Q6H PRN Administration Fever >101 Lipase/Protease/Amylase 1 each 07/23/20 08:37 Lipase 10,500/Protease 25,000/Amylase 43,750 (Units) Dr Sher FEEDTUBE PRN PRN For Clogged Feeding Tube Hydrocortisone Sodium Succinate 100 mg 07/25/20 12:00 07/28/20 05:47 Hydrocortisone Sod Succ 100 Mg/2 Ml Vial IV 100 mg Q8H ESTELA Administration Acyclovir 370 mg/ Sodium 107.4 mls @ 100 mls/hr 07/17/20 12:00 07/27/20 21:03 Chloride IV 100 mls/hr Q12HR ESTELA Administration Protocol Thiamine HCl 100 mg/ Sodium 51 mls @ 100 mls/hr 07/18/20 10:00 07/27/20 10:01 Chloride IV 100 mls/hr QDAY ESTELA Administration Folic Acid 1 mg/ Sodium 50.2 mls @ 200.8 mls/hr 07/18/20 10:00 07/27/20 10:01 Chloride IV 200.8 mls/hr QDAY ESTELA Administration Vasopressin 20 unit/ Sodium 101 mls @ 9.09 mls/hr 07/19/20 10:00 07/28/20 06:03 Chloride IV 0.03 units/min TITR ESTELA 9.09 mls/hr Administration Protocol 0.03 UNITS/MIN Norepinephrine 8 mg/ Sodium 250 mls @ 3.75 mls/hr 07/19/20 21:00 07/28/20 02:45 Chloride IV 8 mcg/min TITR ESTELA 15 mls/hr Titration Protocol 2 MCG/MIN Dextrose 1,000 mls @ 50 mls/hr 07/25/20 09:00 07/27/20 10:30 D10w IV 50 mls/hr DIRECT ESTELA Administration Magnesium Hydroxide 30 ml 07/17/20 03:56 Magnesium Hydroxide (Mom) Oral Liqd Udc PO Q4H PRN Constipation Ondansetron HCl 4 mg 07/17/20 03:56 07/18/20 20:00 Ondansetron 4 Mg/2 Ml Inj IV 4 mg Q8H PRN Administration Nausea And Vomiting Pantoprazole Sodium 40 mg 07/24/20 10:00 07/27/20 21:04 Pantoprazole 40 Mg Inj IV 40 mg BID ESTELA Administration Simple Syrup 15 ml 07/23/20 08:37 Simple Syrup 15 Ml FEEDTUBE PRN PRN Hypoglycemia Simple Syrup 30 ml 07/23/20 08:37 Simple Syrup 15 Ml FEEDTUBE PRN PRN Hypoglycemia Sodium Bicarbonate 325 mg 07/23/20 08:37 Sodium Bicarbonate 325 Mg Tab FEEDTUBE PRN PRN For Clogged Feeding Tube Sodium Chloride 10 ml 07/17/20 10:00 07/27/20 21:11 Sodium Chloride 0.9% 10 Ml Flush Syringe IV 10 ml BID ESTELA Administration Sodium Chloride 10 ml 07/17/20 03:56 Sodium Chloride 0.9% 10 Ml Flush Syringe IV PRN PRN LINE FLUSH
[2020-07-28] MEDS: PANTOPRAZOLE 40 MG INJ IV SCH ×2 (10:31→22:12)
[2020-07-28] MEDS: THIAMINE 100 MG in SODIUM CHLORIDE 0.9% 50 ML IV SCH (10:31)
[2020-07-28] MEDS: FOLIC ACID 1 MG in SODIUM CHLORIDE 0.9% 50 ML IV SCH (10:31)
[2020-07-28] MEDS: ACYCLOVIR IV SCH ×2 (10:32→22:12)
[2020-07-28] MEDS: DEXTROSE 10% IN WATER 1,000 ML IV SCH (10:32)
[2020-07-28] MEDS: SODIUM CHLORIDE 0.9% IV SCH ×2 (10:32→22:12)
[2020-07-28 10:33] LABS: Albumin 2.1 g/dL (3.9-5); Calcium 8.2 mg/dL (8.4-10.2)
--- NOTE | 2020-07-28 11:04 | XRay Report ---
CHEST 1 VIEW 07/28/2020 9:47 AM INDICATION / CLINICAL INFORMATION: Fever, unresponsive liver faliure on vent. COMPARISON: 07/24/2020 FINDINGS: SUPPORT DEVICES: Stable, satisfactory device positioning. HEART / MEDIASTINUM: Stable. LUNGS / PLEURA: Diffuse patchy and confluent airspace disease. Probable small bilateral pleural effus ions. No pneumothorax. ADDITIONAL FINDINGS: No significant additional findings. IMPRESSION: 1. Diffuse pulmonary airspace disease is overall unchanged, however small bilateral pleural effusions are new when compared to the prior examination. Signer Name: Warren Smith MD Signed: 07/28/2020 10:59 AM Workstation Name: [id number]
--- NOTE | 2020-07-28 23:56 | Progress Note ---
Assessment and Plan The high probability of a clinically significant, sudden or life threatening deterioration of the [neuro, cardiac, renal, pulmonary] system(s) required my full and direct attention, intervention and personal management. The aggregate critical care time was [35] minutes. This time is in addition to time spent performing reported procedures but includes the following: [x] Data Review and interpretation [x] Patient assessment and monitoring of vital signs [x] Documentation [x] Medication orders and management - Patient Problems (1) Severe sepsis with septic shock Current Visit: Yes Status: Acute Plan to address problem: Sepsis protocol, IV pressor support, IV antibiotic therapy, IV fluid resuscitation therapy, maintain mean arterial pressure greater than or equal to 65, monitor urine output every shift, serial lactic acid level (2) Acute respiratory failure Current Visit: Yes Status: Acute Qualifiers: Respiratory failure complication: hypoxia Qualified Code(s): J96.01 - Acute respiratory failure with hypoxia Plan to address problem: Patient intubated and placed on ventilatory support overnight. Wean vent as tolerated, pulmonary team consulted, spontaneous breathing trial daily, sedation holiday, supportive care. (3) Acute liver failure Current Visit: Yes Status: Acute Plan to address problem: Supportive care, GI team consulted. Pt has poor prognosis, and currently unstable for transfer. (4) Metabolic acidosis Current Visit: Yes Status: Acute Plan to address problem: BMP, IV bicarbonate therapy, repeat BMP (5) UTI (urinary tract infection) Current Visit: Yes Status: Acute Qualifiers: Encounter type: initial encounter Plan to address problem: IV antibiotic therapy, supportive care. (6) DVT prophylaxis Current Visit: Yes Status: Acute Plan to address problem: SCD to bilateral lower extremities while in bed (7) Acute kidney injury (RINA) with acute tubular necrosis (ATN) Current Visit: Yes Status: Acute Plan to address problem: Nephrology team consulted, IV fluid resuscitation therapy, monitor urine output every shift, monitor fluid balance, supportive care. (8) Cardiac arrest Current Visit: Yes Status: Acute Plan to address problem: Patient experienced cardiac arrest overnight. Patient treated with ACLS protocol with eventual return of perfusing cardiac rhythm. Patient has poor prognosis. (9) Toxic metabolic encephalopathy Current Visit: Yes Status: Acute Plan to address problem: CT scan head, when medically stable, supportive care, continue medical management. Suspect anoxic brain injury. (10) Advance care planning Current Visit: Yes Status: Acute Plan to address problem: Disease education conducted, patient is full code, patient prognosis discussed with patient mother Tete Gao as well as patient xiomara today., patient family informed the patient shows no sign of brain function and is on multiple medications to maintain her current status. Patient family informed that patient has experienced nonsurvivable physiologic insult and has suffered anoxic brain injury. Patient family acknowledges prognosis but declines to make decision for gait regarding withdrawal of care due to patient's 5 children and that the need for necessary arrangements to be made for the care of the children. Awaiting decision on withdrawal of care. . Patient family informed of care plan. +60 minutes. Subjective Date of service: 07/28/20 Principal diagnosis: Acute Liver Injury Interval history: History Interval history: 29 YO Female HD #9 with Severe Sepsis complicated by Shock, Fulminant Hepatic Failure, ETOH Dependence, RINA with ATN, Toxic Metabolic Encephalopathy, Elevated INR, Metabolic Acidosis, Acute Respiratory Failure S/P Cardiac Arrest, Anoxic Brain Injury. Patient is critically ill and has very poor prognosis. Patient currently intubated and on ventilatory support. Patient has poor prognosis. No significant overnight improvement. Patient prognosis discussed again with patient mother and xiomara. Patient family acknowledges understanding patient condition and prognosis. Objective - Constitutional Vitals: Vital Signs - 12hr 07/28/20 07/28/20 07/28/20 12:00 12:15 12:30 Temperature 98.5 F Pulse Rate 92 H 93 H 92 H Pulse Rate [ 91 H From Monitor] Respiratory 24 18 16 Rate Blood Pressure 120/69 120/71 122/70 O2 Sat by Pulse 95 95 94 Oximetry 07/28/20 07/28/20 07/28/20 12:45 13:00 13:15 Temperature Pulse Rate 92 H 92 H 92 H Pulse Rate [ From Monitor] Respiratory 15 18 16 Rate Blood Pressure 121/72 123/74 123/73 O2 Sat by Pulse 94 94 95 Oximetry 07/28/20 07/28/20 07/28/20 13:30 13:45 14:00 Temperature Pulse Rate 85 86 86 Pulse Rate [ From Monitor] Respiratory 18 18 10 L Rate Blood Pressure 113/53 113/57 111/57 O2 Sat by Pulse 93 94 93 Oximetry 07/28/20 07/28/20 07/28/20 14:15 14:30 14:45 Temperature Pulse Rate 87 87 87 Pulse Rate [ From Monitor] Respiratory 21 19 21 Rate Blood Pressure 111/56 111/56 114/55 O2 Sat by Pulse 93 94 94 Oximetry 07/28/20 07/28/20 07/28/20 15:00 15:15 15:30 Temperature Pulse Rate 87 88 88 Pulse Rate [ From Monitor] Respiratory 17 19 21 Rate Blood Pressure 112/58 111/58 110/63 O2 Sat by Pulse 94 93 94 Oximetry 07/28/20 07/28/20 07/28/20 15:45 16:00 16:15 Temperature 98 F Pulse Rate 88 87 87 Pulse Rate [ 91 H From Monitor] Respiratory 17 19 20 Rate Blood Pressure 115/64 115/66 114/65 O2 Sat by Pulse 94 94 94 Oximetry 07/28/20 07/28/20 07/28/20 16:30 16:45 17:00 Temperature Pulse Rate 86 86 82 Pulse Rate [ From Monitor] Respiratory 22 20 18 Rate Blood Pressure 118/61 120/70 106/45 O2 Sat by Pulse 94 95 92 Oximetry 07/28/20 07/28/20 07/28/20 17:15 17:23 17:30 Temperature Pulse Rate 82 82 81 Pulse Rate [ From Monitor] Respiratory 13 17 Rate Blood Pressure 105/48 105/48 103/45 O2 Sat by Pulse 93 94 93 Oximetry 07/28/20 07/28/20 07/28/20 17:45 18:00 18:15 Temperature Pulse Rate 80 85 83 Pulse Rate [ From Monitor] Respiratory 17 14 14 Rate Blood Pressure 113/54 109/60 109/59 O2 Sat by Pulse 92 93 Oximetry 07/28/20 07/28/20 07/28/20 18:30 18:45 19:00 Temperature Pulse Rate 82 82 81 Pulse Rate [ From Monitor] Respiratory 17 17 18 Rate Blood Pressure 111/57 111/57 109/56 O2 Sat by Pulse 92 92 92 Oximetry 07/28/20 07/28/20 07/28/20 19:15 19:30 19:45 Temperature Pulse Rate 80 81 81 Pulse Rate [ From Monitor] Respiratory 17 17 16 Rate Blood Pressure 109/55 106/60 111/59 O2 Sat by Pulse 92 93 93 Oximetry 07/28/20 07/28/20 07/28/20 20:00 20:17 20:30 Temperature 97.8 F Pulse Rate 80 80 79 Pulse Rate [ 80 From Monitor] Respiratory 17 18 15 Rate Blood Pressure 113/61 115/66 O2 Sat by Pulse 93 94 94 Oximetry 07/28/20 07/28/20 07/28/20 20:45 21:00 21:15 Temperature Pulse Rate 80 80 83 Pulse Rate [ From Monitor] Respiratory 17 19 15 Rate Blood Pressure 117/66 123/69 135/84 O2 Sat by Pulse 93 93 94 Oximetry 07/28/20 07/28/20 07/28/20 21:30 21:45 22:00 Temperature Pulse Rate 86 86 87 Pulse Rate [ From Monitor] Respiratory 13 15 17 Rate Blood Pressure 135/84 147/92 147/92 O2 Sat by Pulse 94 93 93 Oximetry 07/28/20 07/28/20 07/28/20 22:15 22:30 22:45 Temperature Pulse Rate 87 82 82 Pulse Rate [ From Monitor] Respiratory 17 18 17 Rate Blood Pressure 146/95 146/95 126/77 O2 Sat by Pulse 93 90 92 Oximetry 07/28/20 23:00 Temperature Pulse Rate 82 Pulse Rate [ From Monitor] Respiratory 17 Rate Blood Pressure 124/75 O2 Sat by Pulse 92 Oximetry General appearance: Present: no acute distress, well-nourished - EENT Eyes: PERRL, EOM intact ENT: hearing intact, clear oral mucosa Ears: bilateral: normal - Neck Neck: supple, normal ROM - Respiratory Respiratory effort: normal Respiratory: bilateral: CTA - Breasts Breasts: normal - Cardiovascular Rhythm: regular Heart Sounds: Present: S1 & S2. Absent: gallop, rub Extremities: pulses intact, No edema, normal color, Full ROM - Gastrointestinal General gastrointestinal: Present: soft, non-tender, non-distended, normal bowel sounds - Genitourinary Female genitourinary: normal - Integumentary Integumentary: clear, warm, dry - Musculoskeletal Musculoskeletal: 1, strength equal bilaterally - Neurologic Neurologic: moves all extremities - Psychiatric Psychiatric: memory intact, appropriate mood/affect, intact judgment & insight - Labs CBC & Chem 7: 07/28/20 00:32 07/28/20 09:42 Labs: Abnormal lab results 07/28/20 07/28/20 07/28/20 Range/Units 00:32 05:09 09:42 Hgb 9.5 L D (10.1-14.3) gm/dl Hct 28.6 L D (30.3-42.9) % POC ABG pO2 67.3 L (83-108) mmHg ABG Hemoglobin 10.5 L (12.0-17.5) ABG Oxyhemoglobin 90.9 L (94-98) ABG Chloride 117.0 H (98-107) mmol/L ABG Glucose 105 H (65-95) mg/dL Sodium 146 H (137-145) mmol/L Chloride 116.7 H (98-107) mmol/L Carbon Dioxide 20 L (22-30) mmol/L BUN 51 H (7-17) mg/dL Creatinine 1.6 H D (0.6-1.2) mg/dL Glucose 107 H (65-100) mg/dL POC Glucose (70-105) mg/dL Calcium 8.2 L (8.4-10.2) mg/dL Total Bilirubin 9.70 H (0.1-1.2) mg/dL AST 195 H (5-40) units/L ALT 99 H (7-56) units/L Alkaline Phosphatase 422 H (35-129) units/L Total Protein 5.2 L D (6.3-8.2) g/dL Albumin 2.1 L (3.9-5) g/dL Arterial Blood Glucose 105 H (65-95) mg/dL 07/28/20 07/28/20 07/28/20 Range/Units 11:50 16:43 21:29 Hgb (10.1-14.3) gm/dl Hct (30.3-42.9) % POC ABG pO2 (83-108) mmHg ABG Hemoglobin (12.0-17.5) ABG Oxyhemoglobin (94-98) ABG Chloride (98-107) mmol/L ABG Glucose (65-95) mg/dL Sodium (137-145) mmol/L Chloride (98-107) mmol/L Carbon Dioxide (22-30) mmol/L BUN (7-17) mg/dL Creatinine (0.6-1.2) mg/dL Glucose (65-100) mg/dL POC Glucose 109 H 114 H 122 H (70-105) mg/dL Calcium (8.4-10.2) mg/dL Total Bilirubin (0.1-1.2) mg/dL AST (5-40) units/L ALT (7-56) units/L Alkaline Phosphatase (35-129) units/L Total Protein (6.3-8.2) g/dL Albumin (3.9-5) g/dL Arterial Blood Glucose (65-95) mg/dL 07/28/20 Range/Units 23:48 Hgb (10.1-14.3) gm/dl Hct (30.3-42.9) % POC ABG pO2 (83-108) mmHg ABG Hemoglobin (12.0-17.5) ABG Oxyhemoglobin (94-98) ABG Chloride (98-107) mmol/L ABG Glucose (65-95) mg/dL Sodium (137-145) mmol/L Chloride (98-107) mmol/L Carbon Dioxide (22-30) mmol/L BUN (7-17) mg/dL Creatinine (0.6-1.2) mg/dL Glucose (65-100) mg/dL POC Glucose 117 H (70-105) mg/dL Calcium (8.4-10.2) mg/dL Total Bilirubin (0.1-1.2) mg/dL AST (5-40) units/L ALT (7-56) units/L Alkaline Phosphatase (35-129) units/L Total Protein (6.3-8.2) g/dL Albumin (3.9-5) g/dL Arterial Blood Glucose (65-95) mg/dL HEART Score - HEART Score Troponin: Troponin T < 0.010 ng/mL (0.00-0.029) 07/16/20 20:47
[2020-07-29] MEDS: HYDROCORTISONE SOD SUCC 100 MG/2 ML VIAL IV SCH ×3 (04:20→19:53)
[2020-07-29] MEDS: VASOPRESSIN 20 UNIT in SODIUM CHLORIDE 0.9% 100 ML IV SCH ×3 (05:23→22:33)
[2020-07-29] MEDS: NORepinephrine 8 MG in SODIUM CHLORIDE 0.9% 250ML 242 ML IV SCH ×2 (05:24→19:53)
[2020-07-29] MEDS: DEXTROSE 10% IN WATER 1,000 ML IV SCH (08:34)
--- NOTE | 2020-07-29 09:17 | Progress Note ---
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 07/29/20: Still no MRI yet. Remains unresponsive. Spoke with pharmacy today mustapha l try midodrine with reglan to see if we can wean pressors. No labs checked today. Renal function was worsening as of yesterday. Will order labs for tomorrow. Today is day 10 of intubation. Await further input from neurology. Need to set up family meeting soon to discuss next steps and goals of care. Overall prognosis is poor. 07/28/20: Await MRI. EEG draft from yesterday shows severe encephalopathy with multiple etiologies. Will attempt trickle feeds today despite 2 pressor need. If she does not tolerate, will talk to nutrition about TPN. Need neurology input once MRI done and read as the overall prognosis here appears to be poor and decisions need to be made in regards to next steps of care. Patient has been intubated now since 07/19/2020 (Today is day 9 of intubation). If family requests continued aggressive care, patient will need trach and peg placement, however, it does not appear that she can be weaned off of vasopressors. emt intermediate consequences are soon to happen from prolonged use (i.e ischemia) 07/27/2020: Await MRI. Continue supportive measures. Clinical picture appears to be worsening. Family awaiting neurology input and they need imaging. 07/26/2020: Await MRI. Continue supportive care. Hopeful to wean off levo so we can start feeding patient later today. Will replace lytes and give more free water. Prognosis still appears to be very very poor from a neurological standpoint. 07/25/2020: Reviewed consultants notes on yesterday. Neuro has requested EEG to rule out status. Will speak with them in regards to MRI. Patient is stable enough for travel as pressor requirement is minimal and vent requirement is minimal. No objection to travel. Given hypoglycemia, will change fingersticks to q1 hour. Unable to feed secondary to pressor requirement or this could resultant of liver impairment. Overall prognosis appears to be poor. ] Continue supportive vent care. Not weanable secondary to mental state. Will await family meeting Wean Vasopressors for MAPS >65 Once down to one pressor can feed Will obtain formal neurology consult today May need to consider EEG Overall prognosis appears to be very poor. CCT 31 minutes. Subjective Date of service: 07/29/20 Principal diagnosis: Acute Liver Injury Interval history: Patient remains unresponsive. Still on 2 pressors. Not being fed. Objective Vital Signs - 12hr 07/28/20 07/28/20 07/28/20 21:15 21:30 21:45 Temperature Pulse Rate 83 86 86 Pulse Rate [ From Monitor] Respiratory 15 13 15 Rate Blood Pressure 135/84 135/84 147/92 O2 Sat by Pulse 94 94 93 Oximetry 07/28/20 07/28/20 07/28/20 22:00 22:15 22:30 Temperature Pulse Rate 87 87 82 Pulse Rate [ From Monitor] Respiratory 17 17 18 Rate Blood Pressure 147/92 146/95 146/95 O2 Sat by Pulse 93 93 90 Oximetry 07/28/20 07/28/20 07/28/20 22:45 23:00 23:12 Temperature Pulse Rate 82 82 82 Pulse Rate [ From Monitor] Respiratory 17 17 17 Rate Blood Pressure 126/77 124/75 127/75 O2 Sat by Pulse 92 92 93 Oximetry 07/28/20 07/28/20 07/28/20 23:15 23:30 23:45 Temperature Pulse Rate 82 81 81 Pulse Rate [ From Monitor] Respiratory 16 17 17 Rate Blood Pressure 122/73 119/70 122/73 O2 Sat by Pulse 92 92 93 Oximetry 07/29/20 07/29/20 07/29/20 00:00 00:13 00:15 Temperature 97.4 F L Pulse Rate 81 79 78 Pulse Rate [ 64 From Monitor] Respiratory 15 16 Rate Blood Pressure 121/73 116/66 116/66 O2 Sat by Pulse 93 92 92 Oximetry 07/29/20 07/29/20 07/29/20 00:30 00:45 01:00 Temperature Pulse Rate 77 77 78 Pulse Rate [ From Monitor] Respiratory 18 17 18 Rate Blood Pressure 113/63 119/70 122/77 O2 Sat by Pulse 92 93 93 Oximetry 07/29/20 07/29/20 07/29/20 01:15 01:30 01:46 Temperature Pulse Rate 80 79 72 Pulse Rate [ From Monitor] Respiratory 13 20 27 H Rate Blood Pressure 137/84 143/84 109/58 O2 Sat by Pulse 94 96 92 Oximetry 07/29/20 07/29/20 07/29/20 02:00 02:15 02:30 Temperature Pulse Rate 71 70 68 Pulse Rate [ From Monitor] Respiratory 22 13 14 Rate Blood Pressure 105/51 101/45 95/35 O2 Sat by Pulse 93 93 92 Oximetry 07/29/20 07/29/20 07/29/20 02:45 03:00 03:15 Temperature Pulse Rate 68 68 68 Pulse Rate [ From Monitor] Respiratory 29 H 15 11 L Rate Blood Pressure 87/33 88/34 91/34 O2 Sat by Pulse 92 93 93 Oximetry 07/29/20 07/29/20 07/29/20 03:30 03:45 03:53 Temperature 98.8 F Pulse Rate 67 67 Pulse Rate [ From Monitor] Respiratory 19 13 Rate Blood Pressure 93/35 95/36 O2 Sat by Pulse 94 94 Oximetry 07/29/20 07/29/20 07/29/20 04:00 04:15 04:22 Temperature Pulse Rate 65 67 66 Pulse Rate [ 62 From Monitor] Respiratory 19 18 Rate Blood Pressure 98/39 96/40 96/40 O2 Sat by Pulse 95 94 94 Oximetry 07/29/20 07/29/20 07/29/20 04:30 04:45 05:00 Temperature Pulse Rate 61 64 64 Pulse Rate [ From Monitor] Respiratory 16 18 18 Rate Blood Pressure 98/38 97/41 97/43 O2 Sat by Pulse 94 94 95 Oximetry 07/29/20 07/29/20 07/29/20 05:15 05:30 05:45 Temperature Pulse Rate 64 65 63 Pulse Rate [ From Monitor] Respiratory 19 16 18 Rate Blood Pressure 98/44 105/58 97/47 O2 Sat by Pulse 94 94 94 Oximetry 07/29/20 07/29/20 07/29/20 06:00 06:15 06:30 Temperature Pulse Rate 64 61 61 Pulse Rate [ From Monitor] Respiratory 18 18 17 Rate Blood Pressure 100/48 98/44 99/43 O2 Sat by Pulse 95 95 94 Oximetry 07/29/20 07/29/20 06:45 08:56 Temperature Pulse Rate 62 60 Pulse Rate [ From Monitor] Respiratory 17 Rate Blood Pressure 98/50 101/53 O2 Sat by Pulse 95 95 Oximetry Constitutional: comatose Eyes: icteric ENT: other (orally intubated, no sedation) Neck: supple Effort: normal Ascultation: Bilateral: rales, rhonchi (anteriorly), other (coarse BS bilaterally) Cardiovascular: other (tachy, RR; no mrg) Gastrointestinal: normoactive bowel sounds, soft, non-tender, non-distended Integumentary: normal Extremities: no cyanosis, edema (1+ bilateral LE edema) Neurologic: other (unresponsive) Psychiatric: other (unable to assess) CBC and BMP: 07/28/20 00:32 07/28/20 09:42 ABG, PT/INR, D-dimer: ABG ABG pH 7.412 (7.320-7.450) 07/28/20 05:09 POC ABG pCO2 33.4 mmHg (32.0-48.0) 07/28/20 05:09 ABG pCO2 31.2 mm Hg 07/22/20 04:25 POC ABG pO2 67.3 mmHg (83-108) L 07/28/20 05:09 ABG pO2 104.9 mm Hg (80.0-90.0) H 07/22/20 04:25 POC ABG HCO3 20.8 07/28/20 05:09 ABG O2 Saturation 98.1 % (95.0-99.0) 07/22/20 04:25 PT/INR, D-dimer PT 21.2 Sec. (12.2-14.9) H 07/26/20 14:47 INR 1.83 (0.87-1.13) H 07/26/20 14:47 Abnormal lab findings: Abnormal Labs 07/16/20 07/16/20 07/16/20 03:54 20:47 20:47 WBC 33.9 H RBC Hgb Hct MCV 107 H MCH 34 H MCHC RDW 22.0 H Plt Count Lymph % (Auto) [place] % (Auto) Lymph # (Auto) [place] # (Auto) Eos # (Auto) Seg Neutrophils % Seg Neuts % (Manual) 89.0 H Lymphocytes % (Manual) 2.0 L Monocytes % (Manual) Nucleated RBC % 1.0 H Seg Neutrophils # Seg Neutrophils # Man 30.2 H Lymphocytes # (Manual) 0.7 L Monocytes # (Manual) 1.4 H Eosinophils # (Manual) PT INR ABG pH POC ABG pCO2 POC ABG pO2 ABG pO2 ABG Base Excess ABG Hemoglobin ABG Oxyhemoglobin ABG Sodium ABG Potassium ABG Chloride ABG Glucose VBG pH Oxyhemoglobin Carboxyhemoglobin Sodium Potassium 5.1 H Chloride Carbon Dioxide 9 L* BUN 20 H Creatinine 1.9 H Glucose 30 L* POC Glucose Lactic Acid Calcium Phosphorus Magnesium Total Bilirubin 5.40 H Direct Bilirubin AST 16747 H ALT 1829 H Alkaline Phosphatase 141 H Ammonia Total Creatine Kinase C-Reactive Protein Total Protein Albumin Lipase 9 L Arterial Blood Glucose Arterial Blood Ionized Calcium Urine WBC (Auto) 57.0 H U Epithel Cells (Auto) 23.0 H Acetaminophen Complement C3 Complement C4 Syphilis IgG Antibody HSV I Specific Ab Crossmatch 07/16/20 07/16/20 07/16/20 20:47 22:43 23:06 WBC RBC Hgb Hct MCV MCH MCHC RDW Plt Count Lymph % (Auto) [place] % (Auto) Lymph # (Auto) [place] # (Auto) Eos # (Auto) Seg Neutrophils % Seg Neuts % (Manual) Lymphocytes % (Manual) Monocytes % (Manual) Nucleated RBC % Seg Neutrophils # Seg Neutrophils # Man Lymphocytes # (Manual) Monocytes # (Manual) Eosinophils # (Manual) PT INR ABG pH POC ABG pCO2 POC ABG pO2 ABG pO2 ABG Base Excess ABG Hemoglobin ABG Oxyhemoglobin ABG Sodium ABG Potassium ABG Chloride ABG Glucose VBG pH Oxyhemoglobin Carboxyhemoglobin Sodium Potassium Chloride Carbon Dioxide BUN Creatinine Glucose POC Glucose 140 H Lactic Acid 14.90 H* Calcium Phosphorus Magnesium Total Bilirubin Direct Bilirubin AST ALT Alkaline Phosphatase Ammonia Total Creatine Kinase 230 H C-Reactive Protein Total Protein Albumin Lipase Arterial Blood Glucose Arterial Blood Ionized Calcium Urine WBC (Auto) U Epithel Cells (Auto) Acetaminophen Complement C3 Complement C4 Syphilis IgG Antibody HSV I Specific Ab Crossmatch 07/17/20 07/17/20 07/17/20 01:46 01:46 04:55 WBC RBC Hgb Hct MCV MCH MCHC RDW Plt Count Lymph % (Auto) [place] % (Auto) Lymph # (Auto) [place] # (Auto) Eos # (Auto) Seg Neutrophils % Seg Neuts % (Manual) Lymphocytes % (Manual) Monocytes % (Manual) Nucleated RBC % Seg Neutrophils # Seg Neutrophils # Man Lymphocytes # (Manual) Monocytes # (Manual) Eosinophils # (Manual) PT INR ABG pH POC ABG pCO2 POC ABG pO2 ABG pO2 ABG Base Excess ABG Hemoglobin ABG Oxyhemoglobin ABG Sodium ABG Potassium ABG Chloride ABG Glucose VBG pH 7.085 L* Oxyhemoglobin Carboxyhemoglobin Sodium Potassium Chloride Carbon Dioxide BUN Creatinine Glucose POC Glucose Lactic Acid 13.20 H* 12.00 H* Calcium Phosphorus Magnesium Total Bilirubin Direct Bilirubin AST ALT Alkaline Phosphatase Ammonia Total Creatine Kinase C-Reactive Protein Total Protein Albumin Lipase Arterial Blood Glucose Arterial Blood Ionized Calcium Urine WBC (Auto) U Epithel Cells (Auto) Acetaminophen Complement C3 Complement C4 Syphilis IgG Antibody HSV I Specific Ab Crossmatch 07/17/20 07/17/20 07/17/20 06:05 07:33 07:48 WBC RBC Hgb Hct MCV MCH MCHC RDW Plt Count Lymph % (Auto) [place] % (Auto) Lymph # (Auto) [place] # (Auto) Eos # (Auto) Seg Neutrophils % Seg Neuts % (Manual) Lymphocytes % (Manual) Monocytes % (Manual) Nucleated RBC % Seg Neutrophils # Seg Neutrophils # Man Lymphocytes # (Manual) Monocytes # (Manual) Eosinophils # (Manual) PT INR ABG pH POC ABG pCO2 POC ABG pO2 ABG pO2 ABG Base Excess ABG Hemoglobin ABG Oxyhemoglobin ABG Sodium ABG Potassium ABG Chloride ABG Glucose VBG pH Oxyhemoglobin Carboxyhemoglobin Sodium Potassium Chloride Carbon Dioxide BUN Creatinine Glucose POC Glucose 59 L 125 H Lactic Acid 12.00 H* Calcium Phosphorus Magnesium Total Bilirubin Direct Bilirubin AST ALT Alkaline Phosphatase Ammonia Total Creatine Kinase C-Reactive Protein Total Protein Albumin Lipase Arterial Blood Glucose Arterial Blood Ionized Calcium Urine WBC (Auto) U Epithel Cells (Auto) Acetaminophen Complement C3 Complement C4 Syphilis IgG Antibody HSV I Specific Ab Crossmatch 07/17/20 07/17/20 07/17/20 09:23 09:23 09:24 WBC RBC Hgb Hct MCV MCH MCHC RDW Plt Count Lymph % (Auto) [place] % (Auto) Lymph # (Auto) [place] # (Auto) Eos # (Auto) Seg Neutrophils % Seg Neuts % (Manual) Lymphocytes % (Manual) Monocytes % (Manual) Nucleated RBC % Seg Neutrophils # Seg Neutrophils # Man Lymphocytes # (Manual) Monocytes # (Manual) Eosinophils # (Manual) PT INR ABG pH POC ABG pCO2 POC ABG pO2 ABG pO2 ABG Base Excess ABG Hemoglobin ABG Oxyhemoglobin ABG Sodium ABG Potassium ABG Chloride ABG Glucose VBG pH Oxyhemoglobin Carboxyhemoglobin Sodium Potassium 5.7 H Chloride 107.6 H Carbon Dioxide 13 L BUN 24 H Creatinine 2.1 H Glucose 121 H POC Glucose Lactic Acid Calcium 6.0 L D Phosphorus Magnesium Total Bilirubin 3.80 H Direct Bilirubin AST 8355 H ALT 1522 H Alkaline Phosphatase Ammonia Total Creatine Kinase 332 H C-Reactive Protein Total Protein 4.7 L D Albumin 2.8 L Lipase Arterial Blood Glucose Arterial Blood Ionized Calcium Urine WBC (Auto) U Epithel Cells (Auto) Acetaminophen 5.0 L Complement C3 Complement C4 Syphilis IgG Antibody HSV I Specific Ab Crossmatch 07/17/20 07/17/20 07/17/20 11:08 11:08 11:08 WBC RBC Hgb Hct MCV MCH MCHC RDW Plt Count Lymph % (Auto) [place] % (Auto) Lymph # (Auto) [place] # (Auto) Eos # (Auto) Seg Neutrophils % Seg Neuts % (Manual) Lymphocytes % (Manual) Monocytes % (Manual) Nucleated RBC % Seg Neutrophils # Seg Neutrophils # Man Lymphocytes # (Manual) Monocytes # (Manual) Eosinophils # (Manual) PT 60.1 H INR > 17.67 H* ABG pH POC ABG pCO2 POC ABG pO2 ABG pO2 ABG Base Excess ABG Hemoglobin ABG Oxyhemoglobin ABG Sodium ABG Potassium ABG Chloride ABG Glucose VBG pH Oxyhemoglobin Carboxyhemoglobin Sodium Potassium Chloride Carbon Dioxide BUN Creatinine Glucose POC Glucose Lactic Acid 9.80 H* Calcium Phosphorus Magnesium Total Bilirubin Direct Bilirubin AST ALT Alkaline Phosphatase Ammonia Total Creatine Kinase C-Reactive Protein Total Protein Albumin Lipase Arterial Blood Glucose Arterial Blood Ionized Calcium Urine WBC (Auto) U Epithel Cells (Auto) Acetaminophen Complement C3 Complement C4 Syphilis IgG Antibody Reactive A HSV I Specific Ab Crossmatch 07/17/20 07/17/20 07/17/20 11:08 14:34 14:34 WBC 27.2 H RBC 2.66 L Hgb 9.1 L D Hct 27.8 L D MCV 104 H MCH 34 H MCHC RDW 22.6 H Plt Count Lymph % (Auto) [place] % (Auto) Lymph # (Auto) [place] # (Auto) Eos # (Auto) Seg Neutrophils % Seg Neuts % (Manual) Lymphocytes % (Manual) Monocytes % (Manual) Nucleated RBC % Seg Neutrophils # Seg Neutrophils # Man Lymphocytes # (Manual) Monocytes # (Manual) Eosinophils # (Manual) PT INR ABG pH POC ABG pCO2 POC ABG pO2 ABG pO2 ABG Base Excess ABG Hemoglobin ABG Oxyhemoglobin ABG Sodium ABG Potassium ABG Chloride ABG Glucose VBG pH Oxyhemoglobin Carboxyhemoglobin Sodium Potassium 5.4 H Chloride 107.7 H Carbon Dioxide 16 L BUN 26 H Creatinine 2.3 H Glucose 151 H POC Glucose Lactic Acid Calcium 5.8 L* Phosphorus Magnesium Total Bilirubin 3.30 H Direct Bilirubin AST 6751 H ALT 1325 H Alkaline Phosphatase Ammonia Total Creatine Kinase C-Reactive Protein Total Protein 4.4 L Albumin 2.5 L Lipase Arterial Blood Glucose Arterial Blood Ionized Calcium Urine WBC (Auto) U Epithel Cells (Auto) Acetaminophen Complement C3 Complement C4 Syphilis IgG Antibody HSV I Specific Ab 5.23 H Crossmatch 07/17/20 07/17/20 07/17/20 14:34 14:34 14:34 WBC RBC Hgb Hct MCV MCH MCHC RDW Plt Count Lymph % (Auto) [place] % (Auto) Lymph # (Auto) [place] # (Auto) Eos # (Auto) Seg Neutrophils % Seg Neuts % (Manual) Lymphocytes % (Manual) Monocytes % (Manual) Nucleated RBC % Seg Neutrophils # Seg Neutrophils # Man Lymphocytes # (Manual) Monocytes # (Manual) Eosinophils # (Manual) PT 70.6 H INR 8.29 H* ABG pH POC ABG pCO2 POC ABG pO2 ABG pO2 ABG Base Excess ABG Hemoglobin ABG Oxyhemoglobin ABG Sodium ABG Potassium ABG Chloride ABG Glucose VBG pH Oxyhemoglobin Carboxyhemoglobin Sodium Potassium Chloride Carbon Dioxide BUN Creatinine Glucose POC Glucose Lactic Acid 7.60 H* Calcium Phosphorus Magnesium Total Bilirubin Direct Bilirubin AST ALT Alkaline Phosphatase Ammonia 75.0 H Total Creatine Kinase C-Reactive Protein Total Protein Albumin Lipase Arterial Blood Glucose Arterial Blood Ionized Calcium Urine WBC (Auto) U Epithel Cells (Auto) Acetaminophen Complement C3 Complement C4 Syphilis IgG Antibody HSV I Specific Ab Crossmatch 07/17/20 07/17/20 07/18/20 16:45 16:45 04:23 WBC 22.7 H RBC 2.47 L Hgb 8.5 L Hct 25.5 L MCV 103 H MCH 35 H MCHC RDW 21.7 H Plt Count Lymph % (Auto) 5.3 L [place] % (Auto) Lymph # (Auto) [place] # (Auto) Eos # (Auto) 0.7 H Seg Neutrophils % 88.2 H Seg Neuts % (Manual) Lymphocytes % (Manual) Monocytes % (Manual) Nucleated RBC % Seg Neutrophils # 20.0 H Seg Neutrophils # Man Lymphocytes # (Manual) Monocytes # (Manual) Eosinophils # (Manual) PT INR ABG pH POC ABG pCO2 POC ABG pO2 ABG pO2 ABG Base Excess ABG Hemoglobin ABG Oxyhemoglobin ABG Sodium ABG Potassium ABG Chloride ABG Glucose VBG pH Oxyhemoglobin Carboxyhemoglobin Sodium Potassium Chloride 107.9 H Carbon Dioxide 17 L BUN 27 H Creatinine 2.5 H Glucose 144 H POC Glucose Lactic Acid 7.00 H* Calcium 6.0 L Phosphorus Magnesium Total Bilirubin 3.30 H Direct Bilirubin AST 6456 H ALT 1286 H Alkaline Phosphatase Ammonia Total Creatine Kinase C-Reactive Protein Total Protein 4.2 L Albumin 2.5 L Lipase Arterial Blood Glucose Arterial Blood Ionized Calcium Urine WBC (Auto) U Epithel Cells (Auto) Acetaminophen Complement C3 Complement C4 Syphilis IgG Antibody HSV I Specific Ab Crossmatch 07/18/20 07/18/20 07/18/20 04:23 04:23 04:23 WBC RBC Hgb Hct MCV MCH MCHC RDW Plt Count Lymph % (Auto) [place] % (Auto) Lymph # (Auto) [place] # (Auto) Eos # (Auto) Seg Neutrophils % Seg Neuts % (Manual) Lymphocytes % (Manual) Monocytes % (Manual) Nucleated RBC % Seg Neutrophils # Seg Neutrophils # Man Lymphocytes # (Manual) Monocytes # (Manual) Eosinophils # (Manual) PT 52.9 H INR 5.78 H* ABG pH POC ABG pCO2 POC ABG pO2 ABG pO2 ABG Base Excess ABG Hemoglobin ABG Oxyhemoglobin ABG Sodium ABG Potassium ABG Chloride ABG Glucose VBG pH Oxyhemoglobin Carboxyhemoglobin Sodium Potassium Chloride 110.0 H Carbon Dioxide 17 L BUN 33 H Creatinine 3.0 H Glucose 110 H POC Glucose Lactic Acid 5.40 H* Calcium 6.4 L Phosphorus Magnesium Total Bilirubin Direct Bilirubin AST ALT Alkaline Phosphatase Ammonia Total Creatine Kinase C-Reactive Protein Total Protein Albumin Lipase Arterial Blood Glucose Arterial Blood Ionized Calcium Urine WBC (Auto) U Epithel Cells (Auto) Acetaminophen Complement C3 Complement C4 Syphilis IgG Antibody HSV I Specific Ab Crossmatch 07/18/20 07/18/20 07/18/20 04:23 07:25 Unknown WBC RBC Hgb Hct MCV MCH MCHC RDW Plt Count Lymph % (Auto) [place] % (Auto) Lymph # (Auto) [place] # (Auto) Eos # (Auto) Seg Neutrophils % Seg Neuts % (Manual) Lymphocytes % (Manual) Monocytes % (Manual) Nucleated RBC % Seg Neutrophils # Seg Neutrophils # Man Lymphocytes # (Manual) Monocytes # (Manual) Eosinophils # (Manual) PT INR ABG pH POC ABG pCO2 POC ABG pO2 ABG pO2 ABG Base Excess ABG Hemoglobin ABG Oxyhemoglobin ABG Sodium ABG Potassium ABG Chloride ABG Glucose VBG pH Oxyhemoglobin Carboxyhemoglobin Sodium Potassium Chloride Carbon Dioxide BUN Creatinine Glucose POC Glucose Lactic Acid 5.50 H* 4.80 H* Calcium Phosphorus Magnesium Total Bilirubin Direct Bilirubin AST ALT Alkaline Phosphatase Ammonia 96.0 H Total Creatine Kinase C-Reactive Protein Total Protein Albumin Lipase Arterial Blood Glucose Arterial Blood Ionized Calcium Urine WBC (Auto) U Epithel Cells (Auto) Acetaminophen Complement C3 Complement C4 Syphilis IgG Antibody HSV I Specific Ab Crossmatch 07/18/20 07/18/20 07/19/20 Unknown Unknown 02:47 WBC RBC Hgb Hct MCV MCH MCHC RDW Plt Count Lymph % (Auto) [place] % (Auto) Lymph # (Auto) [place] # (Auto) Eos # (Auto) Seg Neutrophils % Seg Neuts % (Manual) Lymphocytes % (Manual) Monocytes % (Manual) Nucleated RBC % Seg Neutrophils # Seg Neutrophils # Man Lymphocytes # (Manual) Monocytes # (Manual) Eosinophils # (Manual) PT 37.3 H INR 3.73 H ABG pH POC ABG pCO2 21.1 L POC ABG pO2 61.7 L ABG pO2 ABG Base Excess ABG Hemoglobin 8.5 L ABG Oxyhemoglobin 88.1 L ABG Sodium ABG Potassium ABG Chloride 119.0 H ABG Glucose VBG pH Oxyhemoglobin Carboxyhemoglobin Sodium Potassium Chloride Carbon Dioxide BUN Creatinine Glucose POC Glucose Lactic Acid Calcium Phosphorus Magnesium Total Bilirubin 3.70 H Direct Bilirubin 3.0 H AST 2093 H ALT 822 H Alkaline Phosphatase Ammonia Total Creatine Kinase C-Reactive Protein Total Protein 4.0 L Albumin 2.5 L Lipase Arterial Blood Glucose Arterial Blood Ionized Calcium 4.0 L Urine WBC (Auto) U Epithel Cells (Auto) Acetaminophen Complement C3 Complement C4 Syphilis IgG Antibody HSV I Specific Ab Crossmatch 07/19/20 07/19/20 07/19/20 03:01 03:01 03:01 WBC 19.4 H RBC 2.50 L Hgb 8.5 L Hct 26.1 L MCV 104 H MCH 34 H MCHC RDW 22.3 H Plt Count Lymph % (Auto) 3.7 L [place] % (Auto) Lymph # (Auto) 0.7 L [place] # (Auto) 0.9 H Eos # (Auto) Seg Neutrophils % Seg Neuts % (Manual) Lymphocytes % (Manual) Monocytes % (Manual) Nucleated RBC % Seg Neutrophils # 17.7 H Seg Neutrophils # Man Lymphocytes # (Manual) Monocytes # (Manual) Eosinophils # (Manual) PT 35.0 H INR 3.45 H ABG pH POC ABG pCO2 POC ABG pO2 ABG pO2 ABG Base Excess ABG Hemoglobin ABG Oxyhemoglobin ABG Sodium ABG Potassium ABG Chloride ABG Glucose VBG pH Oxyhemoglobin Carboxyhemoglobin Sodium Potassium Chloride Carbon Dioxide BUN Creatinine Glucose POC Glucose Lactic Acid 5.90 H* Calcium Phosphorus Magnesium Total Bilirubin Direct Bilirubin AST ALT Alkaline Phosphatase Ammonia Total Creatine Kinase C-Reactive Protein Total Protein Albumin Lipase Arterial Blood Glucose Arterial Blood Ionized Calcium Urine WBC (Auto) U Epithel Cells (Auto) Acetaminophen Complement C3 Complement C4 Syphilis IgG Antibody HSV I Specific Ab Crossmatch 07/19/20 07/19/20 07/19/20 03:01 03:01 05:25 WBC RBC Hgb Hct MCV MCH MCHC RDW Plt Count Lymph % (Auto) [place] % (Auto) Lymph # (Auto) [place] # (Auto) Eos # (Auto) Seg Neutrophils % Seg Neuts % (Manual) Lymphocytes % (Manual) Monocytes % (Manual) Nucleated RBC % Seg Neutrophils # Seg Neutrophils # Man Lymphocytes # (Manual) Monocytes # (Manual) Eosinophils # (Manual) PT INR ABG pH POC ABG pCO2 POC ABG pO2 ABG pO2 ABG Base Excess ABG Hemoglobin ABG Oxyhemoglobin ABG Sodium ABG Potassium ABG Chloride ABG Glucose VBG pH Oxyhemoglobin Carboxyhemoglobin Sodium 149 H Potassium Chloride 116.6 H Carbon Dioxide 14 L BUN 48 H Creatinine 2.5 H Glucose POC Glucose 43 L Lactic Acid Calcium 7.4 L D Phosphorus Magnesium Total Bilirubin 3.70 H Direct Bilirubin AST 1730 H ALT 751 H Alkaline Phosphatase Ammonia 126.0 H Total Creatine Kinase C-Reactive Protein Total Protein 4.3 L Albumin 2.4 L Lipase Arterial Blood Glucose Arterial Blood Ionized Calcium Urine WBC (Auto) U Epithel Cells (Auto) Acetaminophen Complement C3 Complement C4 Syphilis IgG Antibody HSV I Specific Ab Crossmatch 07/19/20 07/19/20 07/19/20 05:41 05:41 05:41 WBC 15.9 H RBC 1.80 L Hgb 6.2 L Hct 19.7 L* D MCV 109 H MCH 35 H MCHC RDW 22.7 H Plt Count 99 L Lymph % (Auto) 9.7 L [place] % (Auto) 8.3 H Lymph # (Auto) [place] # (Auto) 1.3 H Eos # (Auto) Seg Neutrophils % 81.2 H Seg Neuts % (Manual) 85.0 H Lymphocytes % (Manual) 12.0 L Monocytes % (Manual) Nucleated RBC % Seg Neutrophils # 12.9 H Seg Neutrophils # Man 13.5 H Lymphocytes # (Manual) Monocytes # (Manual) Eosinophils # (Manual) PT 51.8 H INR 5.63 H* ABG pH POC ABG pCO2 POC ABG pO2 ABG pO2 ABG Base Excess ABG Hemoglobin ABG Oxyhemoglobin ABG Sodium ABG Potassium ABG Chloride ABG Glucose VBG pH Oxyhemoglobin Carboxyhemoglobin Sodium 150 H Potassium Chloride 117.6 H Carbon Dioxide 10 L BUN 50 H Creatinine 2.8 H Glucose 308 H POC Glucose Lactic Acid Calcium 6.8 L Phosphorus Magnesium Total Bilirubin 2.20 H Direct Bilirubin AST 1224 H ALT 484 H Alkaline Phosphatase Ammonia Total Creatine Kinase C-Reactive Protein Total Protein 2.8 L D Albumin 1.6 L Lipase Arterial Blood Glucose Arterial Blood Ionized Calcium Urine WBC (Auto) U Epithel Cells (Auto) Acetaminophen Complement C3 Complement C4 Syphilis IgG Antibody HSV I Specific Ab Crossmatch 07/19/20 07/19/20 07/19/20 05:41 05:41 05:53 WBC RBC Hgb Hct MCV MCH MCHC RDW Plt Count Lymph % (Auto) [place] % (Auto) Lymph # (Auto) [place] # (Auto) Eos # (Auto) Seg Neutrophils % Seg Neuts % (Manual) Lymphocytes % (Manual) Monocytes % (Manual) Nucleated RBC % Seg Neutrophils # Seg Neutrophils # Man Lymphocytes # (Manual) Monocytes # (Manual) Eosinophils # (Manual) PT INR ABG pH POC ABG pCO2 POC ABG pO2 ABG pO2 ABG Base Excess ABG Hemoglobin ABG Oxyhemoglobin ABG Sodium ABG Potassium ABG Chloride ABG Glucose VBG pH Oxyhemoglobin Carboxyhemoglobin Sodium Potassium Chloride Carbon Dioxide BUN Creatinine Glucose POC Glucose 186 H Lactic Acid 12.00 H* Calcium Phosphorus Magnesium Total Bilirubin Direct Bilirubin AST ALT Alkaline Phosphatase Ammonia 96.0 H Total Creatine Kinase C-Reactive Protein Total Protein Albumin Lipase Arterial Blood Glucose Arterial Blood Ionized Calcium Urine WBC (Auto) U Epithel Cells (Auto) Acetaminophen Complement C3 Complement C4 Syphilis IgG Antibody HSV I Specific Ab Crossmatch 07/19/20 07/19/20 07/19/20 06:14 07:35 07:35 WBC RBC Hgb Hct MCV MCH MCHC RDW Plt Count Lymph % (Auto) [place] % (Auto) Lymph # (Auto) [place] # (Auto) Eos # (Auto) Seg Neutrophils % Seg Neuts % (Manual) Lymphocytes % (Manual) Monocytes % (Manual) Nucleated RBC % Seg Neutrophils # Seg Neutrophils # Man Lymphocytes # (Manual) Monocytes # (Manual) Eosinophils # (Manual) PT INR ABG pH 6.904 L POC ABG pCO2 50.8 H POC ABG pO2 140.1 H ABG pO2 ABG Base Excess ABG Hemoglobin 7.9 L ABG Oxyhemoglobin ABG Sodium ABG Potassium ABG Chloride 120.0 H ABG Glucose 220 H VBG pH Oxyhemoglobin Carboxyhemoglobin 1.7 H Sodium Potassium Chloride Carbon Dioxide BUN Creatinine Glucose POC Glucose Lactic Acid 8.50 H* Calcium Phosphorus Magnesium Total Bilirubin Direct Bilirubin AST ALT Alkaline Phosphatase Ammonia Total Creatine Kinase C-Reactive Protein Total Protein Albumin Lipase Arterial Blood Glucose 220 H Arterial Blood Ionized Calcium 4.1 L Urine WBC (Auto) U Epithel Cells (Auto) Acetaminophen Complement C3 Complement C4 Syphilis IgG Antibody HSV I Specific Ab Crossmatch See Detail 07/19/20 07/19/20 07/19/20 12:45 22:54 Unknown WBC 26.7 H RBC 2.68 L Hgb 9.0 L Hct 26.8 L D MCV 100 H MCH 34 H MCHC RDW 20.2 H Plt Count 104 L Lymph % (Auto) [place] % (Auto) Lymph # (Auto) [place] # (Auto) Eos # (Auto) Seg Neutrophils % Seg Neuts % (Manual) Lymphocytes % (Manual) 6.0 L Monocytes % (Manual) 8.0 H Nucleated RBC % Seg Neutrophils # Seg Neutrophils # Man 17.6 H Lymphocytes # (Manual) Monocytes # (Manual) 2.1 H Eosinophils # (Manual) PT INR ABG pH POC ABG pCO2 POC ABG pO2 ABG pO2 ABG Base Excess ABG Hemoglobin ABG Oxyhemoglobin ABG Sodium ABG Potassium ABG Chloride ABG Glucose VBG pH Oxyhemoglobin Carboxyhemoglobin Sodium Potassium Chloride Carbon Dioxide BUN Creatinine Glucose POC Glucose 121 H Lactic Acid 6.20 H* Calcium Phosphorus Magnesium Total Bilirubin Direct Bilirubin AST ALT Alkaline Phosphatase Ammonia Total Creatine Kinase C-Reactive Protein Total Protein Albumin Lipase Arterial Blood Glucose Arterial Blood Ionized Calcium Urine WBC (Auto) U Epithel Cells (Auto) Acetaminophen Complement C3 Complement C4 Syphilis IgG Antibody HSV I Specific Ab Crossmatch 07/19/20 07/19/20 07/19/20 Unknown Unknown Unknown WBC RBC Hgb Hct MCV MCH MCHC RDW Plt Count Lymph % (Auto) [place] % (Auto) Lymph # (Auto) [place] # (Auto) Eos # (Auto) Seg Neutrophils % Seg Neuts % (Manual) Lymphocytes % (Manual) Monocytes % (Manual) Nucleated RBC % Seg Neutrophils # Seg Neutrophils # Man Lymphocytes # (Manual) Monocytes # (Manual) Eosinophils # (Manual) PT 33.4 H INR 3.25 H ABG pH POC ABG pCO2 POC ABG pO2 ABG pO2 ABG Base Excess ABG Hemoglobin ABG Oxyhemoglobin ABG Sodium ABG Potassium ABG Chloride ABG Glucose VBG pH Oxyhemoglobin Carboxyhemoglobin Sodium 148 H Potassium 2.6 L* D Chloride 117.3 H Carbon Dioxide 18 L D BUN 48 H Creatinine 2.4 H Glucose 207 H POC Glucose Lactic Acid 3.90 H* Calcium 6.5 L Phosphorus Magnesium Total Bilirubin 3.80 H Direct Bilirubin AST 1228 H ALT 516 H Alkaline Phosphatase Ammonia Total Creatine Kinase C-Reactive Protein Total Protein 3.6 L D Albumin 1.9 L Lipase Arterial Blood Glucose Arterial Blood Ionized Calcium Urine WBC (Auto) U Epithel Cells (Auto) Acetaminophen Complement C3 Complement C4 Syphilis IgG Antibody HSV I Specific Ab Crossmatch 07/20/20 07/20/20 07/20/20 02:41 05:04 06:39 WBC RBC Hgb Hct MCV MCH MCHC RDW Plt Count Lymph % (Auto) [place] % (Auto) Lymph # (Auto) [place] # (Auto) Eos # (Auto) Seg Neutrophils % Seg Neuts % (Manual) Lymphocytes % (Manual) Monocytes % (Manual) Nucleated RBC % Seg Neutrophils # Seg Neutrophils # Man Lymphocytes # (Manual) Monocytes # (Manual) Eosinophils # (Manual) PT INR ABG pH POC ABG pCO2 POC ABG pO2 64.7 L ABG pO2 ABG Base Excess ABG Hemoglobin 8.8 L ABG Oxyhemoglobin 91.0 L ABG Sodium ABG Potassium 2.6 L ABG Chloride 116.0 H ABG Glucose 143 H VBG pH Oxyhemoglobin Carboxyhemoglobin 2.0 H Sodium Potassium Chloride Carbon Dioxide BUN Creatinine Glucose POC Glucose 141 H 123 H Lactic Acid Calcium Phosphorus Magnesium Total Bilirubin Direct Bilirubin AST ALT Alkaline Phosphatase Ammonia Total Creatine Kinase C-Reactive Protein Total Protein Albumin Lipase Arterial Blood Glucose 143 H Arterial Blood Ionized Calcium 3.9 L Urine WBC (Auto) U Epithel Cells (Auto) Acetaminophen Complement C3 Complement C4 Syphilis IgG Antibody HSV I Specific Ab Crossmatch 07/20/20 07/20/20 07/20/20 10:42 11:07 11:07 WBC 27.7 H RBC 2.50 L Hgb 8.4 L Hct 24.4 L MCV 98 H MCH 34 H MCHC 35 H RDW 19.8 H Plt Count 78 L Lymph % (Auto) [place] % (Auto) Lymph # (Auto) [place] # (Auto) Eos # (Auto) Seg Neutrophils % Seg Neuts % (Manual) Lymphocytes % (Manual) Monocytes % (Manual) Nucleated RBC % Seg Neutrophils # Seg Neutrophils # Man Lymphocytes # (Manual) Monocytes # (Manual) Eosinophils # (Manual) PT INR ABG pH POC ABG pCO2 POC ABG pO2 113.1 H ABG pO2 ABG Base Excess ABG Hemoglobin 8.8 L ABG Oxyhemoglobin ABG Sodium ABG Potassium 2.9 L ABG Chloride 114.0 H ABG Glucose 135 H VBG pH Oxyhemoglobin Carboxyhemoglobin 1.9 H Sodium 147 H Potassium Chloride 114.2 H Carbon Dioxide BUN 52 H Creatinine 1.8 H Glucose 143 H POC Glucose Lactic Acid Calcium 6.5 L Phosphorus Magnesium Total Bilirubin Direct Bilirubin AST ALT Alkaline Phosphatase Ammonia Total Creatine Kinase C-Reactive Protein Total Protein Albumin Lipase Arterial Blood Glucose 135 H Arterial Blood Ionized Calcium 3.8 L Urine WBC (Auto) U Epithel Cells (Auto) Acetaminophen Complement C3 Complement C4 Syphilis IgG Antibody HSV I Specific Ab Crossmatch 07/20/20 07/21/20 07/21/20 15:05 00:03 02:07 WBC RBC Hgb Hct MCV MCH MCHC RDW Plt Count Lymph % (Auto) [place] % (Auto) Lymph # (Auto) [place] # (Auto) Eos # (Auto) Seg Neutrophils % Seg Neuts % (Manual) Lymphocytes % (Manual) Monocytes % (Manual) Nucleated RBC % Seg Neutrophils # Seg Neutrophils # Man Lymphocytes # (Manual) Monocytes # (Manual) Eosinophils # (Manual) PT INR ABG pH POC ABG pCO2 POC ABG pO2 ABG pO2 ABG Base Excess ABG Hemoglobin ABG Oxyhemoglobin ABG Sodium ABG Potassium ABG Chloride ABG Glucose VBG pH Oxyhemoglobin Carboxyhemoglobin Sodium 146 H Potassium 2.8 L* 3.1 L Chloride 112.1 H Carbon Dioxide BUN 54 H Creatinine 1.9 H Glucose 107 H POC Glucose 145 H Lactic Acid Calcium 6.8 L Phosphorus Magnesium 0.90 L* Total Bilirubin Direct Bilirubin AST ALT Alkaline Phosphatase Ammonia Total Creatine Kinase C-Reactive Protein Total Protein Albumin Lipase Arterial Blood Glucose Arterial Blood Ionized Calcium Urine WBC (Auto) U Epithel Cells (Auto) Acetaminophen Complement C3 Complement C4 Syphilis IgG Antibody HSV I Specific Ab Crossmatch 07/21/20 07/21/20 07/21/20 03:42 05:21 10:59 WBC RBC Hgb Hct MCV MCH MCHC RDW Plt Count Lymph % (Auto) [place] % (Auto) Lymph # (Auto) [place] # (Auto) Eos # (Auto) Seg Neutrophils % Seg Neuts % (Manual) Lymphocytes % (Manual) Monocytes % (Manual) Nucleated RBC % Seg Neutrophils # Seg Neutrophils # Man Lymphocytes # (Manual) Monocytes # (Manual) Eosinophils # (Manual) PT INR ABG pH POC ABG pCO2 POC ABG pO2 ABG pO2 98.2 H ABG Base Excess -3.8 L ABG Hemoglobin 8.7 L ABG Oxyhemoglobin ABG Sodium ABG Potassium ABG Chloride ABG Glucose VBG pH Oxyhemoglobin 94.6 L Carboxyhemoglobin Sodium Potassium Chloride Carbon Dioxide BUN Creatinine Glucose POC Glucose 150 H 161 H Lactic Acid Calcium Phosphorus Magnesium Total Bilirubin Direct Bilirubin AST ALT Alkaline Phosphatase Ammonia Total Creatine Kinase C-Reactive Protein Total Protein Albumin Lipase Arterial Blood Glucose Arterial Blood Ionized Calcium Urine WBC (Auto) U Epithel Cells (Auto) Acetaminophen Complement C3 Complement C4 Syphilis IgG Antibody HSV I Specific Ab Crossmatch 07/21/20 07/21/20 07/21/20 13:59 16:14 17:22 WBC RBC Hgb Hct MCV MCH MCHC RDW Plt Count Lymph % (Auto) [place] % (Auto) Lymph # (Auto) [place] # (Auto) Eos # (Auto) Seg Neutrophils % Seg Neuts % (Manual) Lymphocytes % (Manual) Monocytes % (Manual) Nucleated RBC % Seg Neutrophils # Seg Neutrophils # Man Lymphocytes # (Manual) Monocytes # (Manual) Eosinophils # (Manual) PT INR ABG pH POC ABG pCO2 POC ABG pO2 ABG pO2 ABG Base Excess ABG Hemoglobin ABG Oxyhemoglobin ABG Sodium ABG Potassium ABG Chloride ABG Glucose VBG pH Oxyhemoglobin Carboxyhemoglobin Sodium Potassium 3.0 L Chloride 112.5 H Carbon Dioxide 16 L D BUN 48 H Creatinine Glucose 157 H POC Glucose 164 H 171 H Lactic Acid Calcium 7.3 L Phosphorus Magnesium Total Bilirubin Direct Bilirubin AST ALT Alkaline Phosphatase Ammonia Total Creatine Kinase C-Reactive Protein Total Protein Albumin Lipase Arterial Blood Glucose Arterial Blood Ionized Calcium Urine WBC (Auto) U Epithel Cells (Auto) Acetaminophen Complement C3 Complement C4 Syphilis IgG Antibody HSV I Specific Ab Crossmatch 07/21/20 07/22/20 07/22/20 20:06 04:25 07:57 WBC 28.9 H RBC 2.35 L Hgb 8.0 L Hct 22.2 L MCV MCH 34 H MCHC 36 H RDW 20.5 H Plt Count 41 L Lymph % (Auto) [place] % (Auto) Lymph # (Auto) [place] # (Auto) Eos # (Auto) Seg Neutrophils % Seg Neuts % (Manual) 83.0 H Lymphocytes % (Manual) 6.0 L Monocytes % (Manual) Nucleated RBC % 2.0 H Seg Neutrophils # Seg Neutrophils # Man 24.0 H Lymphocytes # (Manual) Monocytes # (Manual) 1.4 H Eosinophils # (Manual) 0.6 H PT INR ABG pH 7.500 H POC ABG pCO2 POC ABG pO2 ABG pO2 104.9 H ABG Base Excess ABG Hemoglobin 8.6 L ABG Oxyhemoglobin ABG Sodium ABG Potassium ABG Chloride ABG Glucose VBG pH Oxyhemoglobin Carboxyhemoglobin Sodium Potassium Chloride Carbon Dioxide BUN Creatinine Glucose POC Glucose 128 H Lactic Acid Calcium Phosphorus Magnesium Total Bilirubin Direct Bilirubin AST ALT Alkaline Phosphatase Ammonia Total Creatine Kinase C-Reactive Protein Total Protein Albumin Lipase Arterial Blood Glucose Arterial Blood Ionized Calcium Urine WBC (Auto) U Epithel Cells (Auto) Acetaminophen Complement C3 Complement C4 Syphilis IgG Antibody HSV I Specific Ab Crossmatch 07/22/20 07/22/20 07/22/20 07:57 07:57 12:08 WBC RBC Hgb Hct MCV MCH MCHC RDW Plt Count Lymph % (Auto) [place] % (Auto) Lymph # (Auto) [place] # (Auto) Eos # (Auto) Seg Neutrophils % Seg Neuts % (Manual) Lymphocytes % (Manual) Monocytes % (Manual) Nucleated RBC % Seg Neutrophils # Seg Neutrophils # Man Lymphocytes # (Manual) Monocytes # (Manual) Eosinophils # (Manual) PT 21.6 H INR 1.87 H ABG pH POC ABG pCO2 POC ABG pO2 ABG pO2 ABG Base Excess ABG Hemoglobin ABG Oxyhemoglobin ABG Sodium ABG Potassium ABG Chloride ABG Glucose VBG pH Oxyhemoglobin Carboxyhemoglobin Sodium 147 H D Potassium 2.6 L* Chloride 112.7 H Carbon Dioxide BUN 51 H Creatinine Glucose 104 H POC Glucose Lactic Acid Calcium 7.8 L Phosphorus 1.10 L Magnesium 1.50 L Total Bilirubin 9.80 H 11.10 H Direct Bilirubin 8.8 H AST 234 H 231 H ALT 297 H 286 H Alkaline Phosphatase 296 H 323 H Ammonia Total Creatine Kinase C-Reactive Protein Total Protein 4.1 L 3.6 L Albumin 1.8 L 2.0 L Lipase Arterial Blood Glucose Arterial Blood Ionized Calcium Urine WBC (Auto) U Epithel Cells (Auto) Acetaminophen Complement C3 Complement C4 Syphilis IgG Antibody HSV I Specific Ab Crossmatch 07/23/20 07/23/20 07/23/20 01:53 02:51 07:38 WBC RBC Hgb Hct MCV MCH MCHC RDW Plt Count Lymph % (Auto) [place] % (Auto) Lymph # (Auto) [place] # (Auto) Eos # (Auto) Seg Neutrophils % Seg Neuts % (Manual) Lymphocytes % (Manual) Monocytes % (Manual) Nucleated RBC % Seg Neutrophils # Seg Neutrophils # Man Lymphocytes # (Manual) Monocytes # (Manual) Eosinophils # (Manual) PT INR ABG pH 7.313 L POC ABG pCO2 POC ABG pO2 67.0 L ABG pO2 ABG Base Excess ABG Hemoglobin ABG Oxyhemoglobin ABG Sodium ABG Potassium 3.2 L ABG Chloride 115.0 H ABG Glucose VBG pH Oxyhemoglobin Carboxyhemoglobin Sodium Potassium Chloride Carbon Dioxide BUN Creatinine Glucose POC Glucose 64 L 62 L Lactic Acid Calcium Phosphorus Magnesium Total Bilirubin Direct Bilirubin AST ALT Alkaline Phosphatase Ammonia Total Creatine Kinase C-Reactive Protein Total Protein Albumin Lipase Arterial Blood Glucose Arterial Blood Ionized Calcium 4.3 L Urine WBC (Auto) U Epithel Cells (Auto) Acetaminophen Complement C3 Complement C4 Syphilis IgG Antibody HSV I Specific Ab Crossmatch 07/23/20 07/23/20 07/23/20 07:39 07:39 23:52 WBC 37.0 H RBC 2.30 L Hgb 7.8 L Hct 22.5 L MCV 98 H MCH 34 H MCHC 35 H RDW 21.3 H Plt Count 55 L Lymph % (Auto) [place] % (Auto) Lymph # (Auto) [place] # (Auto) Eos # (Auto) Seg Neutrophils % Seg Neuts % (Manual) 78.0 H Lymphocytes % (Manual) 10.0 L Monocytes % (Manual) Nucleated RBC % 3.0 H Seg Neutrophils # Seg Neutrophils # Man 28.9 H Lymphocytes # (Manual) Monocytes # (Manual) 1.1 H Eosinophils # (Manual) 0.7 H PT INR ABG pH POC ABG pCO2 POC ABG pO2 ABG pO2 ABG Base Excess ABG Hemoglobin ABG Oxyhemoglobin ABG Sodium ABG Potassium ABG Chloride ABG Glucose VBG pH Oxyhemoglobin Carboxyhemoglobin Sodium 148 H Potassium Chloride 114.0 H Carbon Dioxide BUN 59 H Creatinine 1.5 H Glucose POC Glucose Lactic Acid Calcium 7.7 L Phosphorus 4.60 H D Magnesium Total Bilirubin 11.20 H Direct Bilirubin AST 245 H ALT 242 H Alkaline Phosphatase 423 H Ammonia Total Creatine Kinase C-Reactive Protein 17.20 H Total Protein 4.3 L Albumin 1.8 L Lipase Arterial Blood Glucose Arterial Blood Ionized Calcium Urine WBC (Auto) U Epithel Cells (Auto) Acetaminophen Complement C3 Complement C4 Syphilis IgG Antibody HSV I Specific Ab Crossmatch 07/23/20 07/23/20 07/23/20 23:52 23:52 Unknown WBC RBC Hgb Hct MCV MCH MCHC RDW Plt Count Lymph % (Auto) [place] % (Auto) Lymph # (Auto) [place] # (Auto) Eos # (Auto) Seg Neutrophils % Seg Neuts % (Manual) Lymphocytes % (Manual) Monocytes % (Manual) Nucleated RBC % Seg Neutrophils # Seg Neutrophils # Man Lymphocytes # (Manual) Monocytes # (Manual) Eosinophils # (Manual) PT INR ABG pH POC ABG pCO2 POC ABG pO2 ABG pO2 ABG Base Excess ABG Hemoglobin ABG Oxyhemoglobin ABG Sodium ABG Potassium ABG Chloride ABG Glucose VBG pH Oxyhemoglobin Carboxyhemoglobin Sodium Potassium Chloride Carbon Dioxide BUN Creatinine Glucose POC Glucose Lactic Acid Calcium Phosphorus Magnesium Total Bilirubin Direct Bilirubin AST ALT Alkaline Phosphatase Ammonia Total Creatine Kinase C-Reactive Protein Total Protein Albumin Lipase Arterial Blood Glucose Arterial Blood Ionized Calcium Urine WBC (Auto) 102.0 H U Epithel Cells (Auto) Acetaminophen Complement C3 55 L Complement C4 11 L Syphilis IgG Antibody HSV I Specific Ab Crossmatch 07/24/20 07/24/20 07/24/20 03:39 10:14 10:14 WBC RBC Hgb Hct MCV MCH MCHC RDW Plt Count Lymph % (Auto) [place] % (Auto) Lymph # (Auto) [place] # (Auto) Eos # (Auto) Seg Neutrophils % Seg Neuts % (Manual) Lymphocytes % (Manual) Monocytes % (Manual) Nucleated RBC % Seg Neutrophils # Seg Neutrophils # Man Lymphocytes # (Manual) Monocytes # (Manual) Eosinophils # (Manual) PT INR ABG pH POC ABG pCO2 POC ABG pO2 147.8 H ABG pO2 ABG Base Excess ABG Hemoglobin 5.5 L ABG Oxyhemoglobin ABG Sodium ABG Potassium 3.0 L ABG Chloride 117.0 H ABG Glucose VBG pH Oxyhemoglobin Carboxyhemoglobin Sodium 150 H Potassium 2.6 L* D Chloride 117.1 H Carbon Dioxide BUN 48 H Creatinine Glucose POC Glucose Lactic Acid Calcium 8.2 L Phosphorus 2.30 L D Magnesium 1.50 L Total Bilirubin Direct Bilirubin AST ALT Alkaline Phosphatase Ammonia Total Creatine Kinase C-Reactive Protein Total Protein Albumin Lipase Arterial Blood Glucose Arterial Blood Ionized Calcium Urine WBC (Auto) U Epithel Cells (Auto) Acetaminophen Complement C3 Complement C4 Syphilis IgG Antibody HSV I Specific Ab Crossmatch 07/24/20 07/24/20 07/24/20 10:14 10:14 21:31 WBC RBC Hgb Hct MCV MCH MCHC RDW Plt Count Lymph % (Auto) [place] % (Auto) Lymph # (Auto) [place] # (Auto) Eos # (Auto) Seg Neutrophils % Seg Neuts % (Manual) Lymphocytes % (Manual) Monocytes % (Manual) Nucleated RBC % Seg Neutrophils # Seg Neutrophils # Man Lymphocytes # (Manual) Monocytes # (Manual) Eosinophils # (Manual) PT 22.7 H INR 1.99 H ABG pH POC ABG pCO2 POC ABG pO2 ABG pO2 ABG Base Excess ABG Hemoglobin ABG Oxyhemoglobin ABG Sodium ABG Potassium ABG Chloride ABG Glucose VBG pH Oxyhemoglobin Carboxyhemoglobin Sodium Potassium Chloride Carbon Dioxide BUN Creatinine Glucose POC Glucose 59 L Lactic Acid Calcium Phosphorus Magnesium Total Bilirubin 10.30 H Direct Bilirubin 7.8 H AST 144 H ALT 129 H Alkaline Phosphatase 308 H Ammonia Total Creatine Kinase C-Reactive Protein Total Protein 4.2 L Albumin 2.4 L Lipase Arterial Blood Glucose Arterial Blood Ionized Calcium Urine WBC (Auto) U Epithel Cells (Auto) Acetaminophen Complement C3 Complement C4 Syphilis IgG Antibody HSV I Specific Ab Crossmatch 07/25/20 07/25/20 07/25/20 05:19 05:20 08:38 WBC RBC Hgb Hct MCV MCH MCHC RDW Plt Count Lymph % (Auto) [place] % (Auto) Lymph # (Auto) [place] # (Auto) Eos # (Auto) Seg Neutrophils % Seg Neuts % (Manual) Lymphocytes % (Manual) Monocytes % (Manual) Nucleated RBC % Seg Neutrophils # Seg Neutrophils # Man Lymphocytes # (Manual) Monocytes # (Manual) Eosinophils # (Manual) PT INR ABG pH 7.458 H POC ABG pCO2 POC ABG pO2 77.5 L ABG pO2 ABG Base Excess ABG Hemoglobin 8.5 L ABG Oxyhemoglobin 93.9 L ABG Sodium 147.8 H ABG Potassium 2.9 L ABG Chloride 118.0 H ABG Glucose VBG pH Oxyhemoglobin Carboxyhemoglobin 2.1 H Sodium Potassium Chloride Carbon Dioxide BUN Creatinine Glucose POC Glucose 55 L 107 H Lactic Acid Calcium Phosphorus Magnesium Total Bilirubin Direct Bilirubin AST ALT Alkaline Phosphatase Ammonia Total Creatine Kinase C-Reactive Protein Total Protein Albumin Lipase Arterial Blood Glucose Arterial Blood Ionized Calcium Urine WBC (Auto) U Epithel Cells (Auto) Acetaminophen Complement C3 Complement C4 Syphilis IgG Antibody HSV I Specific Ab Crossmatch 07/25/20 07/25/20 07/25/20 09:53 09:53 21:54 WBC RBC Hgb Hct MCV MCH MCHC RDW Plt Count Lymph % (Auto) [place] % (Auto) Lymph # (Auto) [place] # (Auto) Eos # (Auto) Seg Neutrophils % Seg Neuts % (Manual) Lymphocytes % (Manual) Monocytes % (Manual) Nucleated RBC % Seg Neutrophils # Seg Neutrophils # Man Lymphocytes # (Manual) Monocytes # (Manual) Eosinophils # (Manual) PT 22.3 H INR 1.94 H ABG pH POC ABG pCO2 POC ABG pO2 ABG pO2 ABG Base Excess ABG Hemoglobin ABG Oxyhemoglobin ABG Sodium ABG Potassium ABG Chloride ABG Glucose VBG pH Oxyhemoglobin Carboxyhemoglobin Sodium 154 H Potassium 2.8 L* Chloride 121.5 H Carbon Dioxide BUN 47 H Creatinine Glucose POC Glucose 112 H Lactic Acid Calcium Phosphorus Magnesium Total Bilirubin 11.60 H Direct Bilirubin AST 141 H ALT 115 H Alkaline Phosphatase 355 H Ammonia Total Creatine Kinase C-Reactive Protein Total Protein 4.3 L Albumin 2.2 L Lipase Arterial Blood Glucose Arterial Blood Ionized Calcium Urine WBC (Auto) U Epithel Cells (Auto) Acetaminophen Complement C3 Complement C4 Syphilis IgG Antibody HSV I Specific Ab Crossmatch 07/26/20 07/26/20 07/26/20 01:54 05:38 07:48 WBC RBC Hgb Hct MCV MCH MCHC RDW Plt Count Lymph % (Auto) [place] % (Auto) Lymph # (Auto) [place] # (Auto) Eos # (Auto) Seg Neutrophils % Seg Neuts % (Manual) Lymphocytes % (Manual) Monocytes % (Manual) Nucleated RBC % Seg Neutrophils # Seg Neutrophils # Man Lymphocytes # (Manual) Monocytes # (Manual) Eosinophils # (Manual) PT INR ABG pH POC ABG pCO2 POC ABG pO2 ABG pO2 ABG Base Excess ABG Hemoglobin ABG Oxyhemoglobin ABG Sodium ABG Potassium ABG Chloride ABG Glucose VBG pH Oxyhemoglobin Carboxyhemoglobin Sodium Potassium Chloride Carbon Dioxide BUN Creatinine Glucose POC Glucose 130 H 155 H 155 H Lactic Acid Calcium Phosphorus Magnesium Total Bilirubin Direct Bilirubin AST ALT Alkaline Phosphatase Ammonia Total Creatine Kinase C-Reactive Protein Total Protein Albumin Lipase Arterial Blood Glucose Arterial Blood Ionized Calcium Urine WBC (Auto) U Epithel Cells (Auto) Acetaminophen Complement C3 Complement C4 Syphilis IgG Antibody HSV I Specific Ab Crossmatch 07/26/20 07/26/20 07/26/20 11:31 14:47 14:47 WBC RBC Hgb Hct MCV MCH MCHC RDW Plt Count Lymph % (Auto) [place] % (Auto) Lymph # (Auto) [place] # (Auto) Eos # (Auto) Seg Neutrophils % Seg Neuts % (Manual) Lymphocytes % (Manual) Monocytes % (Manual) Nucleated RBC % Seg Neutrophils # Seg Neutrophils # Man Lymphocytes # (Manual) Monocytes # (Manual) Eosinophils # (Manual) PT 21.2 H INR 1.83 H ABG pH POC ABG pCO2 POC ABG pO2 ABG pO2 ABG Base Excess ABG Hemoglobin ABG Oxyhemoglobin ABG Sodium ABG Potassium ABG Chloride ABG Glucose VBG pH Oxyhemoglobin Carboxyhemoglobin Sodium 148 H Potassium 3.4 L D Chloride 118.2 H Carbon Dioxide BUN 42 H Creatinine Glucose 177 H POC Glucose 147 H Lactic Acid Calcium Phosphorus Magnesium Total Bilirubin Direct Bilirubin AST ALT Alkaline Phosphatase Ammonia Total Creatine Kinase C-Reactive Protein Total Protein Albumin Lipase Arterial Blood Glucose Arterial Blood Ionized Calcium Urine WBC (Auto) U Epithel Cells (Auto) Acetaminophen Complement C3 Complement C4 Syphilis IgG Antibody HSV I Specific Ab Crossmatch 07/26/20 07/26/20 07/26/20 14:47 16:57 21:36 WBC RBC Hgb Hct MCV MCH MCHC RDW Plt Count Lymph % (Auto) [place] % (Auto) Lymph # (Auto) [place] # (Auto) Eos # (Auto) Seg Neutrophils % Seg Neuts % (Manual) Lymphocytes % (Manual) Monocytes % (Manual) Nucleated RBC % Seg Neutrophils # Seg Neutrophils # Man Lymphocytes # (Manual) Monocytes # (Manual) Eosinophils # (Manual) PT INR ABG pH POC ABG pCO2 POC ABG pO2 ABG pO2 ABG Base Excess ABG Hemoglobin ABG Oxyhemoglobin ABG Sodium ABG Potassium ABG Chloride ABG Glucose VBG pH Oxyhemoglobin Carboxyhemoglobin Sodium Potassium Chloride Carbon Dioxide BUN Creatinine Glucose POC Glucose 149 H 129 H Lactic Acid Calcium Phosphorus Magnesium Total Bilirubin 11.30 H Direct Bilirubin 8.6 H AST 139 H ALT 109 H Alkaline Phosphatase 368 H Ammonia Total Creatine Kinase C-Reactive Protein Total Protein 4.1 L Albumin 2.3 L Lipase Arterial Blood Glucose Arterial Blood Ionized Calcium Urine WBC (Auto) U Epithel Cells (Auto) Acetaminophen Complement C3 Complement C4 Syphilis IgG Antibody HSV I Specific Ab Crossmatch 07/27/20 07/27/20 07/27/20 02:03 04:45 04:45 WBC 22.2 H RBC 1.95 L Hgb 6.5 L Hct 18.9 L* MCV MCH 34 H MCHC 35 H RDW 21.3 H Plt Count 29 L Lymph % (Auto) [place] % (Auto) Lymph # (Auto) [place] # (Auto) Eos # (Auto) Seg Neutrophils % Seg Neuts % (Manual) 82.0 H Lymphocytes % (Manual) 3.0 L Monocytes % (Manual) Nucleated RBC % Seg Neutrophils # Seg Neutrophils # Man 18.2 H Lymphocytes # (Manual) 0.7 L Monocytes # (Manual) Eosinophils # (Manual) PT INR ABG pH POC ABG pCO2 POC ABG pO2 ABG pO2 ABG Base Excess ABG Hemoglobin ABG Oxyhemoglobin ABG Sodium ABG Potassium ABG Chloride ABG Glucose VBG pH Oxyhemoglobin Carboxyhemoglobin Sodium 150 H Potassium 3.4 L Chloride 119.4 H Carbon Dioxide BUN 47 H Creatinine Glucose 137 H POC Glucose 134 H Lactic Acid Calcium Phosphorus Magnesium Total Bilirubin 9.60 H Direct Bilirubin AST 120 H ALT 89 H Alkaline Phosphatase 340 H Ammonia Total Creatine Kinase C-Reactive Protein Total Protein 3.7 L Albumin 2.1 L Lipase Arterial Blood Glucose Arterial Blood Ionized Calcium Urine WBC (Auto) U Epithel Cells (Auto) Acetaminophen Complement C3 Complement C4 Syphilis IgG Antibody HSV I Specific Ab Crossmatch 07/27/20 07/27/20 07/27/20 05:36 08:45 10:28 WBC RBC Hgb Hct MCV MCH MCHC RDW Plt Count Lymph % (Auto) [place] % (Auto) Lymph # (Auto) [place] # (Auto) Eos # (Auto) Seg Neutrophils % Seg Neuts % (Manual) Lymphocytes % (Manual) Monocytes % (Manual) Nucleated RBC % Seg Neutrophils # Seg Neutrophils # Man Lymphocytes # (Manual) Monocytes # (Manual) Eosinophils # (Manual) PT INR ABG pH POC ABG pCO2 POC ABG pO2 ABG pO2 ABG Base Excess ABG Hemoglobin ABG Oxyhemoglobin ABG Sodium ABG Potassium ABG Chloride ABG Glucose VBG pH Oxyhemoglobin Carboxyhemoglobin Sodium Potassium Chloride Carbon Dioxide BUN Creatinine Glucose POC Glucose 126 H 149 H Lactic Acid Calcium Phosphorus Magnesium Total Bilirubin Direct Bilirubin AST ALT Alkaline Phosphatase Ammonia Total Creatine Kinase C-Reactive Protein Total Protein Albumin Lipase Arterial Blood Glucose Arterial Blood Ionized Calcium Urine WBC (Auto) U Epithel Cells (Auto) Acetaminophen Complement C3 Complement C4 Syphilis IgG Antibody HSV I Specific Ab Crossmatch See Detail 07/27/20 07/28/20 07/28/20 15:32 00:32 05:09 WBC RBC Hgb 9.5 L D Hct 28.6 L D MCV MCH MCHC RDW Plt Count Lymph % (Auto) [place] % (Auto) Lymph # (Auto) [place] # (Auto) Eos # (Auto) Seg Neutrophils % Seg Neuts % (Manual) Lymphocytes % (Manual) Monocytes % (Manual) Nucleated RBC % Seg Neutrophils # Seg Neutrophils # Man Lymphocytes # (Manual) Monocytes # (Manual) Eosinophils # (Manual) PT INR ABG pH POC ABG pCO2 POC ABG pO2 67.3 L ABG pO2 ABG Base Excess ABG Hemoglobin 10.5 L ABG Oxyhemoglobin 90.9 L ABG Sodium ABG Potassium ABG Chloride 117.0 H ABG Glucose 105 H VBG pH Oxyhemoglobin Carboxyhemoglobin Sodium Potassium Chloride Carbon Dioxide BUN Creatinine Glucose POC Glucose 113 H Lactic Acid Calcium Phosphorus Magnesium Total Bilirubin Direct Bilirubin AST ALT Alkaline Phosphatase Ammonia Total Creatine Kinase C-Reactive Protein Total Protein Albumin Lipase Arterial Blood Glucose 105 H Arterial Blood Ionized Calcium Urine WBC (Auto) U Epithel Cells (Auto) Acetaminophen Complement C3 Complement C4 Syphilis IgG Antibody HSV I Specific Ab Crossmatch 07/28/20 07/28/20 07/28/20 09:42 11:50 16:43 WBC RBC Hgb Hct MCV MCH MCHC RDW Plt Count Lymph % (Auto) [place] % (Auto) Lymph # (Auto) [place] # (Auto) Eos # (Auto) Seg Neutrophils % Seg Neuts % (Manual) Lymphocytes % (Manual) Monocytes % (Manual) Nucleated RBC % Seg Neutrophils # Seg Neutrophils # Man Lymphocytes # (Manual) Monocytes # (Manual) Eosinophils # (Manual) PT INR ABG pH POC ABG pCO2 POC ABG pO2 ABG pO2 ABG Base Excess ABG Hemoglobin ABG Oxyhemoglobin ABG Sodium ABG Potassium ABG Chloride ABG Glucose VBG pH Oxyhemoglobin Carboxyhemoglobin Sodium 146 H Potassium Chloride 116.7 H Carbon Dioxide 20 L BUN 51 H Creatinine 1.6 H D Glucose 107 H POC Glucose 109 H 114 H Lactic Acid Calcium 8.2 L Phosphorus Magnesium Total Bilirubin 9.70 H Direct Bilirubin AST 195 H ALT 99 H Alkaline Phosphatase 422 H Ammonia Total Creatine Kinase C-Reactive Protein Total Protein 5.2 L D Albumin 2.1 L Lipase Arterial Blood Glucose Arterial Blood Ionized Calcium Urine WBC (Auto) U Epithel Cells (Auto) Acetaminophen Complement C3 Complement C4 Syphilis IgG Antibody HSV I Specific Ab Crossmatch 07/28/20 07/28/20 07/29/20 21:29 23:48 02:10 WBC RBC Hgb Hct MCV MCH MCHC RDW Plt Count Lymph % (Auto) [place] % (Auto) Lymph # (Auto) [place] # (Auto) Eos # (Auto) Seg Neutrophils % Seg Neuts % (Manual) Lymphocytes % (Manual) Monocytes % (Manual) Nucleated RBC % Seg Neutrophils # Seg Neutrophils # Man Lymphocytes # (Manual) Monocytes # (Manual) Eosinophils # (Manual) PT INR ABG pH POC ABG pCO2 POC ABG pO2 ABG pO2 ABG Base Excess ABG Hemoglobin ABG Oxyhemoglobin ABG Sodium ABG Potassium ABG Chloride ABG Glucose VBG pH Oxyhemoglobin Carboxyhemoglobin Sodium Potassium Chloride Carbon Dioxide BUN Creatinine Glucose POC Glucose 122 H 117 H 136 H Lactic Acid Calcium Phosphorus Magnesium Total Bilirubin Direct Bilirubin AST ALT Alkaline Phosphatase Ammonia Total Creatine Kinase C-Reactive Protein Total Protein Albumin Lipase Arterial Blood Glucose Arterial Blood Ionized Calcium Urine WBC (Auto) U Epithel Cells (Auto) Acetaminophen Complement C3 Complement C4 Syphilis IgG Antibody HSV I Specific Ab Crossmatch 07/29/20 05:15 WBC RBC Hgb Hct MCV MCH MCHC RDW Plt Count Lymph % (Auto) [place] % (Auto) Lymph # (Auto) [place] # (Auto) Eos # (Auto) Seg Neutrophils % Seg Neuts % (Manual) Lymphocytes % (Manual) Monocytes % (Manual) Nucleated RBC % Seg Neutrophils # Seg Neutrophils # Man Lymphocytes # (Manual) Monocytes # (Manual) Eosinophils # (Manual) PT INR ABG pH POC ABG pCO2 POC ABG pO2 ABG pO2 ABG Base Excess ABG Hemoglobin ABG Oxyhemoglobin ABG Sodium ABG Potassium ABG Chloride ABG Glucose VBG pH Oxyhemoglobin Carboxyhemoglobin Sodium Potassium Chloride Carbon Dioxide BUN Creatinine Glucose POC Glucose 128 H Lactic Acid Calcium Phosphorus Magnesium Total Bilirubin Direct Bilirubin AST ALT Alkaline Phosphatase Ammonia Total Creatine Kinase C-Reactive Protein Total Protein Albumin Lipase Arterial Blood Glucose Arterial Blood Ionized Calcium Urine WBC (Auto) U Epithel Cells (Auto) Acetaminophen Complement C3 Complement C4 Syphilis IgG Antibody HSV I Specific Ab Crossmatch
[2020-07-29] MEDS: MIDODRINE 5 MG TAB PO SCH ×3 (09:52→22:28)
[2020-07-29] MEDS: SODIUM CHLORIDE 0.9% IV SCH ×2 (09:52→22:28)
[2020-07-29] MEDS: THIAMINE 100 MG in SODIUM CHLORIDE 0.9% 50 ML IV SCH (09:52)
[2020-07-29] MEDS: ACYCLOVIR IV SCH ×2 (09:52→22:28)
[2020-07-29] MEDS: PANTOPRAZOLE 40 MG INJ IV SCH ×2 (09:52→22:30)
[2020-07-29] MEDS: FOLIC ACID 1 MG in SODIUM CHLORIDE 0.9% 50 ML IV SCH (09:53)
[2020-07-29] MEDS ORDERED: METOCLOPRAMIDE 10 MG/2 ML INJ IV SCH (10:00)
--- NOTE | 2020-07-29 14:11 | Progress Note ---
Assessment and Plan Cultures: 07/16/2020 blood culture: no growth 07/17/2020 cervix wet prep: High number of clue cells, no trichomonas or yeast seen. 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 #Severe sepsis septic shock/MODS: remains on pressors. No clear infectious etiology. Likely secondary to acute hepatic failure. #Bilateral pneumonia versus pulmonary edema: Bilateral pleural effusions, diffuse bilateral patchy groundglass opacities. Completed empiric abx. #Acute hepatic failure: ?Toxin/med related v/s autoimmune, less likely infectious. Also ruling out HSV induced hepatic necrosis and related fulminant hepatic failure. GI also evaluated. LFTs and synthetic liver function continue to improve. MARY negative, C3, C4 low. #Acute kidney injury: resolved #Possible UTI/PID: completed empiric abx. GC NAAT negative. #Diffuse colitis noted on CT scan: s/p antibiotics. On multiple pressors. More likely to be ischemia related. No active diarrhea. #Acute encephalopathy, diffuse cerebral edema: Probably a combination of acute liver failure and hypoxic encephalopathy. #Acute thrombocytopenia #Anemia #Syphilis IgG positive, RPR titer non reactive, FTA-ABS is also nonreactive, so very likely it is a false positive Recs: -Continue renally dosed acyclovir, till results of serum HSV DNA PCR are back -overall guarded prognosis Usha Martinez MD [facility] ([facility] O: [phone] F: [phone] Subjective Date of service: 07/29/20 Principal diagnosis: Acute Liver Injury Interval history: Afebrile over last 24 hours with an elevated white count of 22.2 which is approximately stable. Imaging personally viewed CXR: Unchanged diffuse airspace disease Objective - Exam Narrative Exam: Constitutional: unresponsive, intubated, on the vent Head, Ears, Nose: Normocephalic, atraumatic. External ears, nose normal Eyes: Conjunctivae/corneas clear. Neck: intubated Oral: intubated Cardiovascular: S1, S2 + Respiratory: AE fair bilaterally and equal GI: Soft, bowel sounds hypo Musculoskeletal: anasarca + Skin: No rash or abscess Hem/Lymphatic: No palpable cervical or supraclavicular nodes. No lymphangitis Psych: no agitation Neurological: unresponsive, intubated, on the vent, exam limited - Constitutional Vitals: Vital Signs Temp Pulse Resp BP Pulse Ox 97.3 F L 71 18 104/49 93 07/29/20 12:00 07/29/20 13:15 07/29/20 13:15 07/29/20 13:15 07/29/20 13:15 Temperature -Last 24 Hours Temperature 97.3 F Temperature 95 F Temperature 98.8 F Temperature 97.4 F Temperature 97.8 F Temperature 98 F - Labs CBC & Chem 7: 07/28/20 00:32 07/28/20 09:42 Labs: Abnormal lab results 07/28/20 07/28/20 07/28/20 Range/Units 16:43 21:29 23:48 POC Glucose 114 H 122 H 117 H (70-105) mg/dL 07/29/20 07/29/20 07/29/20 Range/Units 02:10 05:15 12:19 POC Glucose 136 H 128 H 115 H (70-105) mg/dL 07/29/20 Range/Units 13:34 POC Glucose 124 H (70-105) mg/dL
[2020-07-29 14:26] LABS: Calcium 8.1 mg/dL (8.4-10.2)
[2020-07-29 15:34] LABS: Bilirubin,Urine SM (Negative); Blood,Urine SM (Negative); Color,Urine Amber (Yellow); Mucus,Urine 1+ /HPF
[2020-07-29] MEDS: PANTOPRAZOLE 80 MG in SODIUM CHLORIDE 0.9% 100 ML IV SCH (15:53)
[2020-07-29 16:28] LABS: Ictotest,Urine Positive (Negative)
--- NOTE | 2020-07-29 16:35 | Progress Note ---
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 Acidosis Acute Liver Failure N/V UTI Syphilis Plan: -Cr up, monitor. On Pressers. -Na high, management per Neuro in the setting of cerebral edema. -Replace lytes PRN. -Making urine. -Monitor I/O's daily -Avoid nephrotoxic agents -Monitor renal function closely Subjective Date of service: 07/29/20 Principal diagnosis: Acute Liver Injury Interval history: Intubated on Vent. Objective - Exam Narrative Exam: General appearance: sedated on ventilator, intubated Respiratory: Present: Decreased Breath Sounds Cardiology: tachycardia Psychiatric: other (intubated) Neuro: Intubated Abd:Soft Ext:No cce - Vital Signs Vital signs: Vital Signs - 12hr 07/29/20 07/29/20 07/29/20 04:45 05:00 05:15 Temperature Pulse Rate 64 64 64 Pulse Rate [ From Monitor] Respiratory 18 18 19 Rate Blood Pressure 97/41 97/43 98/44 O2 Sat by Pulse 94 95 94 Oximetry 07/29/20 07/29/20 07/29/20 05:30 05:45 06:00 Temperature Pulse Rate 65 63 64 Pulse Rate [ From Monitor] Respiratory 16 18 18 Rate Blood Pressure 105/58 97/47 100/48 O2 Sat by Pulse 94 94 95 Oximetry 07/29/20 07/29/20 07/29/20 06:15 06:30 06:45 Temperature Pulse Rate 61 61 62 Pulse Rate [ From Monitor] Respiratory 18 17 17 Rate Blood Pressure 98/44 99/43 98/50 O2 Sat by Pulse 95 94 95 Oximetry 07/29/20 07/29/20 07/29/20 07:00 07:15 07:30 Temperature Pulse Rate 60 61 61 Pulse Rate [ From Monitor] Respiratory 17 19 18 Rate Blood Pressure 100/48 99/50 100/50 O2 Sat by Pulse 95 95 95 Oximetry 07/29/20 07/29/20 07/29/20 07:45 08:00 08:15 Temperature 95 F L Pulse Rate 61 60 59 L Pulse Rate [ 65 From Monitor] Respiratory 18 18 18 Rate Blood Pressure 99/51 101/57 102/53 O2 Sat by Pulse 95 95 95 Oximetry 01/02/21 01/02/21 01/02/21 08:30 08:45 08:56 Temperature Pulse Rate 60 60 60 Pulse Rate [ From Monitor] Respiratory 18 18 Rate Blood Pressure 101/55 101/53 101/53 O2 Sat by Pulse 95 95 95 Oximetry 07/29/20 07/29/20 07/29/20 09:00 09:16 09:30 Temperature Pulse Rate 59 L 67 65 Pulse Rate [ From Monitor] Respiratory 18 18 18 Rate Blood Pressure 108/67 145/93 127/81 O2 Sat by Pulse 100 97 94 Oximetry 07/29/20 07/29/20 07/29/20 09:45 10:00 10:15 Temperature Pulse Rate 64 64 64 Pulse Rate [ From Monitor] Respiratory 19 17 18 Rate Blood Pressure 122/74 114/68 105/53 O2 Sat by Pulse 94 93 93 Oximetry 07/29/20 07/29/20 07/29/20 10:30 10:45 11:00 Temperature Pulse Rate 63 64 64 Pulse Rate [ From Monitor] Respiratory 18 18 18 Rate Blood Pressure 101/40 95/39 95/38 O2 Sat by Pulse 92 92 93 Oximetry 07/29/20 07/29/20 07/29/20 11:15 11:30 11:37 Temperature Pulse Rate 65 67 67 Pulse Rate [ From Monitor] Respiratory 18 18 Rate Blood Pressure 94/38 99/37 99/37 O2 Sat by Pulse 93 93 93 Oximetry 07/29/20 07/29/20 07/29/20 11:45 12:00 12:15 Temperature 97.3 F L Pulse Rate 67 69 70 Pulse Rate [ 67 From Monitor] Respiratory 18 18 18 Rate Blood Pressure 95/40 97/42 100/46 O2 Sat by Pulse 93 93 93 Oximetry 07/29/20 07/29/20 07/29/20 12:30 12:45 13:00 Temperature Pulse Rate 69 71 72 Pulse Rate [ From Monitor] Respiratory 18 18 19 Rate Blood Pressure 100/44 102/46 105/50 O2 Sat by Pulse 93 93 93 Oximetry 07/29/20 07/29/20 07/29/20 13:15 13:30 13:45 Temperature Pulse Rate 71 71 92 H Pulse Rate [ From Monitor] Respiratory 18 18 18 Rate Blood Pressure 104/49 105/49 184/104 O2 Sat by Pulse 93 93 96 Oximetry 07/29/20 07/29/20 07/29/20 14:00 14:15 14:30 Temperature Pulse Rate 94 H 74 75 Pulse Rate [ From Monitor] Respiratory 17 18 18 Rate Blood Pressure 184/108 112/47 101/46 O2 Sat by Pulse 94 89 90 Oximetry - Lab 07/28/20 00:32 07/29/20 13:42 Most recent lab results ABG pH 7.412 (7.320-7.450) 07/28/20 05:09 ABG pCO2 31.2 mm Hg 07/22/20 04:25 ABG pO2 104.9 mm Hg (80.0-90.0) H 07/22/20 04:25 ABG HCO3 23.7 mmol/L (20.0-26.0) 07/22/20 04:25 ABG O2 Saturation 98.1 % (95.0-99.0) 07/22/20 04:25 Calcium 8.1 mg/dL (8.4-10.2) L 07/29/20 13:42 Phosphorus 2.30 mg/dL (2.5-4.5) L D 07/24/20 10:14 Magnesium 2.10 mg/dL (1.7-2.3) 07/27/20 16:43 Medications & Allergies - Medications Allergies/Adverse Reactions: Allergies No Known Allergies Allergy (Verified 07/16/20 22:03) Home Medications: Home Medications Medication Instructions Recorded Confirmed Last Taken Type No Known Home Medications [No 07/17/20 07/17/20 Unknown History Reported Home Medications] Active Medications: Generic Name Dose Route Start Last Admin Trade Name Freq PRN Reason Stop Dose Admin Acetaminophen 650 mg 07/23/20 00:37 07/23/20 01:05 Acetaminophen 325 Mg/10.15 Ml Oral Liqd Unit Dose FEEDTUBE 650 mg Q6H PRN Administration Fever >101 Lipase/Protease/Amylase 1 each 07/23/20 08:37 Lipase 10,500/Protease 25,000/Amylase 43,750 (Units) Dr Sher FEEDTUBE PRN PRN For Clogged Feeding Tube Hydrocortisone Sodium Succinate 100 mg 07/25/20 12:00 07/29/20 12:49 Hydrocortisone Sod Succ 100 Mg/2 Ml Vial IV 100 mg Q8H ESTELA Administration Acyclovir 370 mg/ Sodium 107.4 mls @ 100 mls/hr 07/17/20 12:00 07/29/20 09:52 Chloride IV 100 mls/hr Q12HR ESTELA Administration Protocol Thiamine HCl 100 mg/ Sodium 51 mls @ 100 mls/hr 07/18/20 10:00 07/29/20 09:52 Chloride IV 100 mls/hr QDAY ESTELA Administration Folic Acid 1 mg/ Sodium 50.2 mls @ 200.8 mls/hr 07/18/20 10:00 07/29/20 09:53 Chloride IV 200.8 mls/hr QDAY ESTELA Administration Vasopressin 20 unit/ Sodium 101 mls @ 9.09 mls/hr 07/19/20 10:00 07/29/20 05:23 Chloride IV 0.03 units/min TITR ESTELA 9.09 mls/hr Administration Protocol 0.03 UNITS/MIN Norepinephrine 8 mg/ Sodium 250 mls @ 3.75 mls/hr 07/19/20 21:00 07/29/20 15:00 Chloride IV 14 mcg/min TITR ESTELA 26.25 mls/hr Titration Protocol 2 MCG/MIN Dextrose 1,000 mls @ 50 mls/hr 07/25/20 09:00 07/29/20 08:34 D10w IV 50 mls/hr DIRECT ESTELA Administration Pantoprazole Sodium 80 mg/ 100 mls @ 10 mls/hr 07/29/20 16:00 07/29/20 15:53 Sodium Chloride IV 8 mg/hr DIRECT ESTELA 10 mls/hr Administration 8 MG/HR Magnesium Hydroxide 30 ml 07/17/20 03:56 Magnesium Hydroxide (Mom) Oral Liqd Udc PO Q4H PRN Constipation Midodrine 10 mg 07/29/20 10:00 07/29/20 14:55 Midodrine 5 Mg Tab PO Not Given Q8HR ESTELA Ondansetron HCl 4 mg 07/17/20 03:56 07/18/20 20:00 Ondansetron 4 Mg/2 Ml Inj IV 4 mg Q8H PRN Administration Nausea And Vomiting Pantoprazole Sodium 40 mg 07/24/20 10:00 07/29/20 09:52 Pantoprazole 40 Mg Inj IV 40 mg BID ESTELA Administration Simple Syrup 15 ml 07/23/20 08:37 Simple Syrup 15 Ml FEEDTUBE PRN PRN Hypoglycemia Simple Syrup 30 ml 07/23/20 08:37 Simple Syrup 15 Ml FEEDTUBE PRN PRN Hypoglycemia Sodium Bicarbonate 325 mg 07/23/20 08:37 Sodium Bicarbonate 325 Mg Tab FEEDTUBE PRN PRN For Clogged Feeding Tube Sodium Chloride 10 ml 07/17/20 10:00 07/29/20 09:53 Sodium Chloride 0.9% 10 Ml Flush Syringe IV 10 ml BID ESTELA Administration Sodium Chloride 10 ml 07/17/20 03:56 Sodium Chloride 0.9% 10 Ml Flush Syringe IV PRN PRN LINE FLUSH
[2020-07-29 17:13] LABS: Hematocrit 28.2 % (30.3-42.9); Hemoglobin 9.4 gm/dl (10.1-14.3); Mean Corpuscular HGB Conc 33 % (30-34); Mean Corpuscular Volume 98 fl (79-97); Red Cell Distribution Width 19.3 % (13.2-15.2)
[2020-07-29 17:14] LABS: Platelet Count 55 K/mm3 (140-440)
[2020-07-29 17:46] LABS: Anisocytosis 1+; Poikilocytosis 1+; Total Cells Counted 100
[2020-07-29 17:47] LABS: Ovalocytes Few; Platelet Estimate Consistent w Auto; Target Cells 1+
--- NOTE | 2020-07-29 21:44 | Progress Note ---
Assessment and Plan The high probability of a clinically significant, sudden or life threatening deterioration of the [neuro, cardiac, renal, pulmonary] system(s) required my full and direct attention, intervention and personal management. The aggregate critical care time was [35] minutes. This time is in addition to time spent performing reported procedures but includes the following: [x] Data Review and interpretation [x] Patient assessment and monitoring of vital signs [x] Documentation [x] Medication orders and management - Patient Problems (1) Severe sepsis with septic shock Current Visit: Yes Status: Acute Plan to address problem: Sepsis protocol, IV pressor support, IV antibiotic therapy, IV fluid resuscitation therapy, maintain mean arterial pressure greater than or equal to 65, monitor urine output every shift, serial lactic acid level (2) Acute respiratory failure Current Visit: Yes Status: Acute Qualifiers: Respiratory failure complication: hypoxia Qualified Code(s): J96.01 - Acute respiratory failure with hypoxia Plan to address problem: Patient intubated and placed on ventilatory support overnight. Wean vent as tolerated, pulmonary team consulted, spontaneous breathing trial daily, sedation holiday, supportive care. (3) Acute liver failure Current Visit: Yes Status: Acute Plan to address problem: Supportive care, GI team consulted. Pt has poor prognosis, and currently unstable for transfer. (4) Metabolic acidosis Current Visit: Yes Status: Acute Plan to address problem: BMP, IV bicarbonate therapy, repeat BMP (5) UTI (urinary tract infection) Current Visit: Yes Status: Acute Qualifiers: Encounter type: initial encounter Plan to address problem: IV antibiotic therapy, supportive care. (6) DVT prophylaxis Current Visit: Yes Status: Acute Plan to address problem: SCD to bilateral lower extremities while in bed (7) Acute kidney injury (RINA) with acute tubular necrosis (ATN) Current Visit: Yes Status: Acute Plan to address problem: Nephrology team consulted, IV fluid resuscitation therapy, monitor urine output every shift, monitor fluid balance, supportive care. (8) Cardiac arrest Current Visit: Yes Status: Acute Plan to address problem: Patient experienced cardiac arrest overnight. Patient treated with ACLS protocol with eventual return of perfusing cardiac rhythm. Patient has poor prognosis. (9) Toxic metabolic encephalopathy Current Visit: Yes Status: Acute Plan to address problem: CT scan head, when medically stable, supportive care, continue medical management. Suspect anoxic brain injury. (10) Advance care planning Current Visit: Yes Status: Acute Plan to address problem: Disease education conducted, patient is full code, patient prognosis discussed with patient mother Tete Gao as well as patient xiomara today., patient family informed the patient shows no sign of brain function and is on multiple medications to maintain her current status. Patient family informed that patient has experienced nonsurvivable physiologic insult and has suffered anoxic brain injury. Patient family acknowledges prognosis but declines to make decision for gait regarding withdrawal of care due to patient's 5 children and that the need for necessary arrangements to be made for the care of the children. Awaiting decision on withdrawal of care. . Patient family informed of care plan. +60 minutes. Subjective Date of service: 07/29/20 Principal diagnosis: Acute Liver Injury Interval history: History Interval history: 29 YO Female HD #9 with Severe Sepsis complicated by Shock, Fulminant Hepatic Failure, ETOH Dependence, RINA with ATN, Toxic Metabolic Encephalopathy, Elevated INR, Metabolic Acidosis, Acute Respiratory Failure S/P Cardiac Arrest, Anoxic Brain Injury. Patient is critically ill and has very poor prognosis. Patient currently intubated and on ventilatory support. Patient has poor prognosis. No significant overnight improvement. Patient prognosis discussed again with patient mother and xiomara. Patient family acknowledges understanding patient condition and prognosis. Objective - Exam Narrative Exam: Patient intubated - Constitutional Vitals: Vital Signs - 12hr 07/29/20 07/29/20 07/29/20 09:45 10:00 10:15 Temperature Pulse Rate 64 64 64 Pulse Rate [ From Monitor] Respiratory 19 17 18 Rate Blood Pressure 122/74 114/68 105/53 O2 Sat by Pulse 94 93 93 Oximetry 07/29/20 07/29/20 07/29/20 10:30 10:45 11:00 Temperature Pulse Rate 63 64 64 Pulse Rate [ From Monitor] Respiratory 18 18 18 Rate Blood Pressure 101/40 95/39 95/38 O2 Sat by Pulse 92 92 93 Oximetry 07/29/20 07/29/20 07/29/20 11:15 11:30 11:37 Temperature Pulse Rate 65 67 67 Pulse Rate [ From Monitor] Respiratory 18 18 Rate Blood Pressure 94/38 99/37 99/37 O2 Sat by Pulse 93 93 93 Oximetry 07/29/20 07/29/20 07/29/20 11:45 12:00 12:15 Temperature 97.3 F L Pulse Rate 67 69 70 Pulse Rate [ 67 From Monitor] Respiratory 18 18 18 Rate Blood Pressure 95/40 97/42 100/46 O2 Sat by Pulse 93 93 93 Oximetry 07/29/20 07/29/20 07/29/20 12:30 12:45 13:00 Temperature Pulse Rate 69 71 72 Pulse Rate [ From Monitor] Respiratory 18 18 19 Rate Blood Pressure 100/44 102/46 105/50 O2 Sat by Pulse 93 93 93 Oximetry 07/29/20 07/29/20 07/29/20 13:15 13:30 13:45 Temperature Pulse Rate 71 71 92 H Pulse Rate [ From Monitor] Respiratory 18 18 18 Rate Blood Pressure 104/49 105/49 184/104 O2 Sat by Pulse 93 93 96 Oximetry 07/29/20 07/29/20 07/29/20 14:00 14:15 14:30 Temperature Pulse Rate 94 H 74 75 Pulse Rate [ From Monitor] Respiratory 17 18 18 Rate Blood Pressure 184/108 112/47 101/46 O2 Sat by Pulse 94 89 90 Oximetry 07/29/20 07/29/20 07/29/20 14:45 15:00 15:15 Temperature Pulse Rate 75 75 85 Pulse Rate [ From Monitor] Respiratory 18 18 18 Rate Blood Pressure 108/47 99/41 141/85 O2 Sat by Pulse 91 92 95 Oximetry 07/29/20 07/29/20 07/29/20 15:30 15:45 16:00 Temperature 98.4 F Pulse Rate 102 H 103 H 101 H Pulse Rate [ 67 From Monitor] Respiratory 18 19 18 Rate Blood Pressure 195/117 189/113 180/109 O2 Sat by Pulse 95 93 93 Oximetry 07/29/20 07/29/20 07/29/20 16:15 16:30 16:45 Temperature Pulse Rate 102 H 104 H 101 H Pulse Rate [ From Monitor] Respiratory 19 18 18 Rate Blood Pressure 176/113 182/115 169/102 O2 Sat by Pulse 92 92 92 Oximetry 07/29/20 07/29/20 07/29/20 16:59 17:00 17:15 Temperature Pulse Rate 93 H 92 H 92 H Pulse Rate [ From Monitor] Respiratory 17 18 Rate Blood Pressure 149/91 169/102 143/88 O2 Sat by Pulse 92 92 92 Oximetry 07/29/20 07/29/20 07/29/20 17:30 17:45 18:00 Temperature Pulse Rate 92 H 88 86 Pulse Rate [ From Monitor] Respiratory 18 19 20 Rate Blood Pressure 151/93 120/63 127/71 O2 Sat by Pulse 93 91 92 Oximetry 07/29/20 07/29/20 07/29/20 18:15 18:30 18:45 Temperature Pulse Rate 87 84 86 Pulse Rate [ From Monitor] Respiratory 17 18 20 Rate Blood Pressure 121/63 121/63 119/58 O2 Sat by Pulse 92 92 92 Oximetry 07/29/20 07/29/20 07/29/20 19:00 19:15 19:30 Temperature Pulse Rate 88 88 87 Pulse Rate [ From Monitor] Respiratory 15 17 15 Rate Blood Pressure 122/64 127/63 124/62 O2 Sat by Pulse 93 93 93 Oximetry 07/29/20 07/29/20 07/29/20 19:45 20:00 20:15 Temperature 98.1 F Pulse Rate 88 85 90 Pulse Rate [ From Monitor] Respiratory 21 17 27 H Rate Blood Pressure 118/60 116/47 120/54 O2 Sat by Pulse 93 92 94 Oximetry 07/29/20 07/29/20 20:30 21:04 Temperature Pulse Rate 89 91 H Pulse Rate [ From Monitor] Respiratory 20 Rate Blood Pressure 119/54 117/54 O2 Sat by Pulse 92 92 Oximetry General appearance: Present: no acute distress, well-nourished - EENT Eyes: PERRL, EOM intact ENT: hearing intact, clear oral mucosa Ears: bilateral: normal - Neck Neck: supple, normal ROM - Respiratory Respiratory effort: normal Respiratory: bilateral: CTA - Breasts Breasts: normal - Cardiovascular Rhythm: regular Heart Sounds: Present: S1 & S2. Absent: gallop, rub Extremities: pulses intact, No edema, normal color, Full ROM - Gastrointestinal General gastrointestinal: Present: soft, non-tender, non-distended, normal bowel sounds - Genitourinary Female genitourinary: normal - Integumentary Integumentary: clear, warm, dry - Musculoskeletal Musculoskeletal: 1, strength equal bilaterally - Neurologic Neurologic: moves all extremities - Psychiatric Psychiatric: memory intact, appropriate mood/affect, intact judgment & insight - Labs CBC & Chem 7: 07/29/20 17:04 07/29/20 13:42 Labs: Abnormal lab results 07/28/20 07/29/20 07/29/20 Range/Units 23:48 02:10 05:15 WBC (4.5-11.0) K/mm3 RBC (3.65-5.03) M/mm3 Hgb (10.1-14.3) gm/dl Hct (30.3-42.9) % MCV (79-97) fl MCH (28-32) pg RDW (13.2-15.2) % Plt Count (140-440) K/mm3 Seg Neuts % (Manual) (40.0-70.0) % Lymphocytes % (Manual) (13.4-35.0) % Nucleated RBC % (0.0-0.9) % Seg Neutrophils # Man (1.8-7.7) K/mm3 Sodium (137-145) mmol/L Chloride (98-107) mmol/L Carbon Dioxide (22-30) mmol/L BUN (7-17) mg/dL Creatinine (0.6-1.2) mg/dL Glucose (65-100) mg/dL POC Glucose 117 H 136 H 128 H (70-105) mg/dL Calcium (8.4-10.2) mg/dL Urine WBC (Auto) (0.0-6.0) /HPF U Epithel Cells (Auto) (0-13.0) /HPF 07/29/20 07/29/20 07/29/20 Range/Units 12:19 13:34 13:42 WBC (4.5-11.0) K/mm3 RBC (3.65-5.03) M/mm3 Hgb (10.1-14.3) gm/dl Hct (30.3-42.9) % MCV (79-97) fl MCH (28-32) pg RDW (13.2-15.2) % Plt Count (140-440) K/mm3 Seg Neuts % (Manual) (40.0-70.0) % Lymphocytes % (Manual) (13.4-35.0) % Nucleated RBC % (0.0-0.9) % Seg Neutrophils # Man (1.8-7.7) K/mm3 Sodium 148 H (137-145) mmol/L Chloride 117.9 H (98-107) mmol/L Carbon Dioxide 21 L (22-30) mmol/L BUN 62 H (7-17) mg/dL Creatinine 1.8 H (0.6-1.2) mg/dL Glucose 124 H (65-100) mg/dL POC Glucose 115 H 124 H (70-105) mg/dL Calcium 8.1 L (8.4-10.2) mg/dL Urine WBC (Auto) (0.0-6.0) /HPF U Epithel Cells (Auto) (0-13.0) /HPF 07/29/20 07/29/20 07/29/20 Range/Units 15:00 17:04 18:25 WBC 37.2 H (4.5-11.0) K/mm3 RBC 2.90 L (3.65-5.03) M/mm3 Hgb 9.4 L (10.1-14.3) gm/dl Hct 28.2 L (30.3-42.9) % MCV 98 H (79-97) fl MCH 33 H (28-32) pg RDW 19.3 H (13.2-15.2) % Plt Count 55 L (140-440) K/mm3 Seg Neuts % (Manual) 93.0 H (40.0-70.0) % Lymphocytes % (Manual) 6.0 L (13.4-35.0) % Nucleated RBC % 2.0 H (0.0-0.9) % Seg Neutrophils # Man 34.6 H (1.8-7.7) K/mm3 Sodium (137-145) mmol/L Chloride (98-107) mmol/L Carbon Dioxide (22-30) mmol/L BUN (7-17) mg/dL Creatinine (0.6-1.2) mg/dL Glucose (65-100) mg/dL POC Glucose 129 H (70-105) mg/dL Calcium (8.4-10.2) mg/dL Urine WBC (Auto) 127.0 H (0.0-6.0) /HPF U Epithel Cells (Auto) 18.0 H (0-13.0) /HPF 07/29/20 Range/Units 21:28 WBC (4.5-11.0) K/mm3 RBC (3.65-5.03) M/mm3 Hgb (10.1-14.3) gm/dl Hct (30.3-42.9) % MCV (79-97) fl MCH (28-32) pg RDW (13.2-15.2) % Plt Count (140-440) K/mm3 Seg Neuts % (Manual) (40.0-70.0) % Lymphocytes % (Manual) (13.4-35.0) % Nucleated RBC % (0.0-0.9) % Seg Neutrophils # Man (1.8-7.7) K/mm3 Sodium (137-145) mmol/L Chloride (98-107) mmol/L Carbon Dioxide (22-30) mmol/L BUN (7-17) mg/dL Creatinine (0.6-1.2) mg/dL Glucose (65-100) mg/dL POC Glucose 113 H (70-105) mg/dL Calcium (8.4-10.2) mg/dL Urine WBC (Auto) (0.0-6.0) /HPF U Epithel Cells (Auto) (0-13.0) /HPF HEART Score - HEART Score Troponin: Troponin T < 0.010 ng/mL (0.00-0.029) 07/16/20 20:47
[2020-07-30] MEDS: VASOPRESSIN 20 UNIT in SODIUM CHLORIDE 0.9% 100 ML IV SCH (04:31)
[2020-07-30] MEDS: HYDROCORTISONE SOD SUCC 100 MG/2 ML VIAL IV SCH ×3 (05:54→20:53)
[2020-07-30] MEDS: MIDODRINE 5 MG TAB PO SCH ×3 (05:54→21:42)
[2020-07-30 06:42] LABS: Calcium 7.7 mg/dL (8.4-10.2)
[2020-07-30] MEDS: DEXTROSE 10% IN WATER 1,000 ML IV SCH (08:05)
[2020-07-30] MEDS: PANTOPRAZOLE 80 MG in SODIUM CHLORIDE 0.9% 100 ML IV SCH ×3 (10:19→20:24)
[2020-07-30] MEDS: THIAMINE 100 MG in SODIUM CHLORIDE 0.9% 50 ML IV SCH (10:45)
[2020-07-30] MEDS: FOLIC ACID 1 MG in SODIUM CHLORIDE 0.9% 50 ML IV SCH (10:48)
[2020-07-30] MEDS: ACYCLOVIR IV SCH ×2 (10:53→21:45)
[2020-07-30] MEDS: SODIUM CHLORIDE 0.9% IV SCH ×2 (10:53→21:45)
--- NOTE | 2020-07-30 12:03 | Progress Note ---
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 Acidosis Acute Liver Failure N/V UTI Syphilis Plan: -Cr up, monitor. On Pressers. -Na high, management per Neuro in the setting of cerebral edema. On D10 per ICU. -Replace lytes PRN. -Making urine. -Monitor I/O's daily -Avoid nephrotoxic agents -Monitor renal function closely Subjective Date of service: 07/30/20 Principal diagnosis: Acute Liver Injury Interval history: Intubated on Vent. Objective - Exam Narrative Exam: General appearance: sedated on ventilator, intubated Respiratory: Present: Decreased Breath Sounds Cardiology: tachycardia Psychiatric: other (intubated) Neuro: Intubated Abd:Soft Ext:No cce - Vital Signs Vital signs: Vital Signs - 12hr 07/30/20 07/30/20 07/30/20 00:05 00:15 00:30 Temperature Pulse Rate 99 H 97 H 97 H Pulse Rate [ From Monitor] Respiratory 17 21 Rate Blood Pressure 129/70 127/61 125/67 O2 Sat by Pulse 92 91 91 Oximetry 07/30/20 07/30/20 07/30/20 00:45 01:00 01:15 Temperature Pulse Rate 97 H 95 H 93 H Pulse Rate [ From Monitor] Respiratory 19 20 20 Rate Blood Pressure 127/68 124/62 116/54 O2 Sat by Pulse 92 92 91 Oximetry 07/30/20 07/30/20 07/30/20 01:30 01:45 02:00 Temperature Pulse Rate 92 H 94 H 92 H Pulse Rate [ From Monitor] Respiratory 19 17 23 Rate Blood Pressure 118/54 112/55 113/56 O2 Sat by Pulse 92 92 92 Oximetry 07/30/20 07/30/20 07/30/20 02:15 02:30 02:45 Temperature Pulse Rate 92 H 102 H 92 H Pulse Rate [ From Monitor] Respiratory 22 12 19 Rate Blood Pressure 116/54 116/54 110/56 O2 Sat by Pulse 92 94 92 Oximetry 07/30/20 07/30/20 07/30/20 03:00 03:15 03:30 Temperature 100.4 F H Pulse Rate 92 H 91 H 91 H Pulse Rate [ From Monitor] Respiratory 19 22 22 Rate Blood Pressure 118/58 116/59 116/59 O2 Sat by Pulse 92 92 92 Oximetry 07/30/20 07/30/20 07/30/20 03:45 04:00 04:08 Temperature Pulse Rate 90 90 90 Pulse Rate [ 90 From Monitor] Respiratory 15 17 Rate Blood Pressure 117/59 117/60 O2 Sat by Pulse 92 92 Oximetry 07/30/20 07/30/20 07/30/20 04:15 04:30 04:45 Temperature Pulse Rate 90 89 88 Pulse Rate [ From Monitor] Respiratory 16 19 21 Rate Blood Pressure 115/60 115/55 112/50 O2 Sat by Pulse 92 92 92 Oximetry 07/30/20 07/30/20 07/30/20 05:00 05:15 05:30 Temperature Pulse Rate 88 87 88 Pulse Rate [ From Monitor] Respiratory 26 H 19 20 Rate Blood Pressure 113/53 113/54 108/53 O2 Sat by Pulse 92 92 92 Oximetry 07/30/20 07/30/20 07/30/20 05:45 06:00 07:05 Temperature Pulse Rate 89 89 74 Pulse Rate [ From Monitor] Respiratory 21 20 Rate Blood Pressure 113/52 112/62 124/74 O2 Sat by Pulse 91 93 94 Oximetry - Lab 07/29/20 17:04 07/30/20 05:46 Most recent lab results ABG pH 7.412 (7.320-7.450) 07/28/20 05:09 ABG pCO2 31.2 mm Hg 07/22/20 04:25 ABG pO2 104.9 mm Hg (80.0-90.0) H 07/22/20 04:25 ABG HCO3 23.7 mmol/L (20.0-26.0) 07/22/20 04:25 ABG O2 Saturation 98.1 % (95.0-99.0) 07/22/20 04:25 Calcium 7.7 mg/dL (8.4-10.2) L 07/30/20 05:46 Phosphorus 2.30 mg/dL (2.5-4.5) L D 07/24/20 10:14 Magnesium 2.10 mg/dL (1.7-2.3) 07/27/20 16:43 Medications & Allergies - Medications Allergies/Adverse Reactions: Allergies No Known Allergies Allergy (Verified 07/16/20 22:03) Home Medications: Home Medications Medication Instructions Recorded Confirmed Last Taken Type No Known Home Medications [No 07/17/20 07/17/20 Unknown History Reported Home Medications] Active Medications: Generic Name Dose Route Start Last Admin Trade Name Freq PRN Reason Stop Dose Admin Acetaminophen 650 mg 07/23/20 00:37 07/23/20 01:05 Acetaminophen 325 Mg/10.15 Ml Oral Liqd Unit Dose FEEDTUBE 650 mg Q6H PRN Administration Fever >101 Lipase/Protease/Amylase 1 each 07/23/20 08:37 Lipase 10,500/Protease 25,000/Amylase 43,750 (Units) Dr Sher FEEDTUBE PRN PRN For Clogged Feeding Tube Hydrocortisone Sodium Succinate 100 mg 07/25/20 12:00 07/30/20 05:54 Hydrocortisone Sod Succ 100 Mg/2 Ml Vial IV 100 mg Q8H ESTELA Administration Acyclovir 370 mg/ Sodium 107.4 mls @ 100 mls/hr 07/17/20 12:00 07/30/20 10:53 Chloride IV 100 mls/hr Q12HR ESTELA Administration Protocol Thiamine HCl 100 mg/ Sodium 51 mls @ 100 mls/hr 07/18/20 10:00 07/30/20 10:45 Chloride IV 100 mls/hr QDAY ESTELA Administration Folic Acid 1 mg/ Sodium 50.2 mls @ 200.8 mls/hr 07/18/20 10:00 07/30/20 10:48 Chloride IV 200.8 mls/hr QDAY ESTELA Administration Vasopressin 20 unit/ Sodium 101 mls @ 9.09 mls/hr 07/19/20 10:00 07/30/20 04:31 Chloride IV 0.03 units/min TITR ESTELA 9.09 mls/hr Administration Protocol 0.03 UNITS/MIN Norepinephrine 8 mg/ Sodium 250 mls @ 3.75 mls/hr 07/19/20 21:00 07/30/20 00:54 Chloride IV 2 mcg/min TITR ESTELA 3.75 mls/hr Titration Protocol 2 MCG/MIN Dextrose 1,000 mls @ 50 mls/hr 07/25/20 09:00 07/30/20 08:05 D10w IV 50 mls/hr DIRECT ESTELA Administration Pantoprazole Sodium 80 mg/ 100 mls @ 10 mls/hr 07/29/20 16:00 07/30/20 10:19 Sodium Chloride IV 8 mg/hr DIRECT ESTELA 10 mls/hr Administration 8 MG/HR Magnesium Hydroxide 30 ml 07/17/20 03:56 Magnesium Hydroxide (Mom) Oral Liqd Udc PO Q4H PRN Constipation Midodrine 10 mg 07/29/20 10:00 07/30/20 05:54 Midodrine 5 Mg Tab PO 10 mg Q8HR ESTELA Administration Ondansetron HCl 4 mg 07/17/20 03:56 07/18/20 20:00 Ondansetron 4 Mg/2 Ml Inj IV 4 mg Q8H PRN Administration Nausea And Vomiting Simple Syrup 15 ml 07/23/20 08:37 Simple Syrup 15 Ml FEEDTUBE PRN PRN Hypoglycemia Simple Syrup 30 ml 07/23/20 08:37 Simple Syrup 15 Ml FEEDTUBE PRN PRN Hypoglycemia Sodium Bicarbonate 325 mg 07/23/20 08:37 Sodium Bicarbonate 325 Mg Tab FEEDTUBE PRN PRN For Clogged Feeding Tube Sodium Chloride 10 ml 07/17/20 10:00 07/29/20 22:29 Sodium Chloride 0.9% 10 Ml Flush Syringe IV 10 ml BID ESTELA Administration Sodium Chloride 10 ml 07/17/20 03:56 Sodium Chloride 0.9% 10 Ml Flush Syringe IV PRN PRN LINE FLUSH
--- NOTE | 2020-07-30 12:53 | Progress Note ---
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 07/30/20: BP better with midodrine, thanks to pharmacy recs. Will turn off vasop ressin and attempt to get MRI today. Will then lean on Neuro to help us with ultimate prognosis to help family make decisions about next steps. Today is day 11 of intubation. Family meeting needs to take place this week. If family wishes to continue aggressively, she will need trach and peg. Patient has been having nasal and oral bleeding. Platelets have been low but up to 55 now. No indication for blood or platelet transfusion. 07/29/20: Still no MRI yet. Remains unresponsive. Spoke with pharmacy today will try midodrine with reglan to see if we can wean pressors. No labs checked today. Renal function was worsening as of yesterday. Will order labs for tomorrow. Today is day 10 of intubation. Await further input from neurology. Need to set up family meeting soon to discuss next steps and goals of care. Overall prognosis is poor. 07/28/20: Await MRI. EEG draft from yesterday shows severe encephalopathy with multiple etiologies. Will attempt trickle feeds today despite 2 pressor need. If she does not tolerate, will talk to nutrition about TPN. Need neurology input once MRI done and read as the overall prognosis here appears to be poor and decisions need to be made in regards to next steps of care. Patient has been intubated now since 07/19/2020 (Today is day 9 of intubation). If family requests continued aggressive care, patient will need trach and peg placement, however, it does not appear that she can be weaned off of vasopressors. buttermaker helper consequences are soon to happen from prolonged use (i.e ischemia) 07/27/2020: Await MRI. Continue supportive measures. Clinical picture appears to be worsening. Family awaiting neurology input and they need imaging. 07/26/2020: Await MRI. Continue supportive care. Hopeful to wean off levo so we can start feeding patient later today. Will replace lytes and give more free water. Prognosis still appears to be very very poor from a neurological standpoint. 07/25/2020: Reviewed consultants notes on yesterday. Neuro has requested EEG to rule out status. Will speak with them in regards to MRI. Patient is stable enough for travel as pressor requirement is minimal and vent requirement is minimal. No objection to travel. Given hypoglycemia, will change fingersticks to q1 hour. Unable to feed secondary to pressor requirement or this could resultant of liver impairment. Overall prognosis appears to be poor. ] Continue supportive vent care. Not weanable secondary to mental state. Will a wait family meeting Wean Vasopressors for MAPS >65 Once down to one pressor can feed Will obtain formal neurology consult today May need to consider EEG Overall prognosis appears to be very poor. CCT 31 minutes. Subjective Date of service: 07/30/20 Principal diagnosis: Acute Liver Injury Interval history: No acute events. Still unresponsive. Continues to spike temps. Objective Vital Signs - 12hr 07/30/20 07/30/20 07/30/20 01:00 01:15 01:30 Temperature Pulse Rate 95 H 93 H 92 H Pulse Rate [ From Monitor] Respiratory 20 20 19 Rate Blood Pressure 124/62 116/54 118/54 O2 Sat by Pulse 92 91 92 Oximetry 07/30/20 07/30/20 07/30/20 01:45 02:00 02:15 Temperature Pulse Rate 94 H 92 H 92 H Pulse Rate [ From Monitor] Respiratory 17 23 22 Rate Blood Pressure 112/55 113/56 116/54 O2 Sat by Pulse 92 92 92 Oximetry 07/30/20 07/30/20 07/30/20 02:30 02:45 03:00 Temperature Pulse Rate 102 H 92 H 92 H Pulse Rate [ From Monitor] Respiratory 12 19 19 Rate Blood Pressure 116/54 110/56 118/58 O2 Sat by Pulse 94 92 92 Oximetry 07/30/20 07/30/20 07/30/20 03:15 03:30 03:45 Temperature 100.4 F H Pulse Rate 91 H 91 H 90 Pulse Rate [ From Monitor] Respiratory 22 22 15 Rate Blood Pressure 116/59 116/59 117/59 O2 Sat by Pulse 92 92 92 Oximetry 07/30/20 07/30/20 07/30/20 04:00 04:08 04:15 Temperature Pulse Rate 90 90 90 Pulse Rate [ 90 From Monitor] Respiratory 17 16 Rate Blood Pressure 117/60 115/60 O2 Sat by Pulse 92 92 Oximetry 07/30/20 07/30/2021 04:30 04:45 05:00 Temperature Pulse Rate 89 88 88 Pulse Rate [ From Monitor] Respiratory 19 21 26 H Rate Blood Pressure 115/55 112/50 113/53 O2 Sat by Pulse 92 92 92 Oximetry 07/30/20 07/30/20 07/30/20 05:15 05:30 05:45 Temperature Pulse Rate 87 88 89 Pulse Rate [ From Monitor] Respiratory 19 20 21 Rate Blood Pressure 113/54 108/53 113/52 O2 Sat by Pulse 92 92 91 Oximetry 07/30/20 07/30/20 07/30/20 06:00 06:15 06:30 Temperature Pulse Rate 89 89 87 Pulse Rate [ From Monitor] Respiratory 20 18 16 Rate Blood Pressure 112/62 114/68 109/69 O2 Sat by Pulse 93 93 93 Oximetry 07/30/20 07/30/20 07/30/20 06:45 07:00 07:05 Temperature Pulse Rate 92 H 85 74 Pulse Rate [ From Monitor] Respiratory 21 18 Rate Blood Pressure 121/74 121/58 124/74 O2 Sat by Pulse 93 91 94 Oximetry 07/30/20 07/30/20 07/30/20 07:15 07:30 07:45 Temperature Pulse Rate 83 86 81 Pulse Rate [ From Monitor] Respiratory 18 21 17 Rate Blood Pressure 114/57 119/59 111/52 O2 Sat by Pulse 91 93 92 Oximetry 07/30/20 07/30/20 07/30/20 08:00 08:15 08:30 Temperature Pulse Rate 80 79 80 Pulse Rate [ From Monitor] Respiratory 19 16 15 Rate Blood Pressure 114/54 112/57 119/67 O2 Sat by Pulse 92 93 93 Oximetry 07/30/20 07/30/20 07/30/20 08:45 09:00 09:15 Temperature Pulse Rate 78 75 76 Pulse Rate [ From Monitor] Respiratory 17 11 L 17 Rate Blood Pressure 116/68 117/65 121/72 O2 Sat by Pulse 93 93 93 Oximetry 07/30/20 07/30/20 07/30/20 09:30 09:45 10:00 Temperature Pulse Rate 75 74 73 Pulse Rate [ From Monitor] Respiratory 24 14 12 Rate Blood Pressure 124/74 124/77 121/73 O2 Sat by Pulse 93 93 93 Oximetry 01/03/21 01/03/21 01/03/21 10:15 10:30 10:45 Temperature Pulse Rate 72 71 71 Pulse Rate [ From Monitor] Respiratory 17 17 17 Rate Blood Pressure 124/75 125/75 128/80 O2 Sat by Pulse 93 93 94 Oximetry 07/30/20 07/30/20 07/30/20 11:00 11:15 11:30 Temperature Pulse Rate 72 71 69 Pulse Rate [ From Monitor] Respiratory 15 13 15 Rate Blood Pressure 128/80 136/85 131/83 O2 Sat by Pulse 95 94 93 Oximetry 07/30/20 07/30/20 07/30/20 11:45 11:58 12:00 Temperature Pulse Rate 71 68 69 Pulse Rate [ From Monitor] Respiratory 14 12 Rate Blood Pressure 142/90 142/90 143/91 O2 Sat by Pulse 94 94 94 Oximetry 07/30/20 07/30/20 12:15 12:34 Temperature Pulse Rate 68 67 Pulse Rate [ From Monitor] Respiratory 9 L 16 Rate Blood Pressure 143/91 O2 Sat by Pulse 94 93 Oximetry Constitutional: comatose Eyes: icteric ENT: other (orally intubated, no sedation) Neck: supple Effort: normal Ascultation: Bilateral: rales, rhonchi (anteriorly), other (coarse BS bilaterally) Cardiovascular: other (tachy, RR; no mrg) Gastrointestinal: normoactive bowel sounds, soft, non-tender, non-distended Integumentary: normal Extremities: no cyanosis, edema (1+ bilateral LE edema) Neurologic: other (unresponsive) Psychiatric: other (unable to assess) CBC and BMP: 07/29/20 17:04 07/30/20 05:46 ABG, PT/INR, D-dimer: ABG ABG pH 7.412 (7.320-7.450) 07/28/20 05:09 POC ABG pCO2 33.4 mmHg (32.0-48.0) 07/28/20 05:09 ABG pCO2 31.2 mm Hg 07/22/20 04:25 POC ABG pO2 67.3 mmHg (83-108) L 07/28/20 05:09 ABG pO2 104.9 mm Hg (80.0-90.0) H 07/22/20 04:25 POC ABG HCO3 20.8 07/28/20 05:09 ABG O2 Saturation 98.1 % (95.0-99.0) 07/22/20 04:25 PT/INR, D-dimer PT 21.2 Sec. (12.2-14.9) H 07/26/20 14:47 INR 1.83 (0.87-1.13) H 07/26/20 14:47 Abnormal lab findings: Abnormal Labs 07/16/20 07/16/20 07/16/20 03:54 20:47 20:47 WBC 33.9 H RBC Hgb Hct MCV 107 H MCH 34 H MCHC RDW 22.0 H Plt Count Lymph % (Auto) [place] % (Auto) Lymph # (Auto) [place] # (Auto) Eos # (Auto) Seg Neutrophils % Seg Neuts % (Manual) 89.0 H Lymphocytes % (Manual) 2.0 L Monocytes % (Manual) Nucleated RBC % 1.0 H Seg Neutrophils # Seg Neutrophils # Man 30.2 H Lymphocytes # (Manual) 0.7 L Monocytes # (Manual) 1.4 H Eosinophils # (Manual) PT INR ABG pH POC ABG pCO2 POC ABG pO2 ABG pO2 ABG Base Excess ABG Hemoglobin ABG Oxyhemoglobin ABG Sodium ABG Potassium ABG Chloride ABG Glucose VBG pH Oxyhemoglobin Carboxyhemoglobin Sodium Potassium 5.1 H Chloride Carbon Dioxide 9 L* BUN 20 H Creatinine 1.9 H Glucose 30 L* POC Glucose Lactic Acid Calcium Phosphorus Magnesium Total Bilirubin 5.40 H Direct Bilirubin AST 30798 H ALT 1829 H Alkaline Phosphatase 141 H Ammonia Total Creatine Kinase C-Reactive Protein Total Protein Albumin Lipase 9 L Arterial Blood Glucose Arterial Blood Ionized Calcium Urine WBC (Auto) 57.0 H U Epithel Cells (Auto) 23.0 H Acetaminophen Complement C3 Complement C4 Syphilis IgG Antibody HSV I Specific Ab Crossmatch 07/16/20 07/16/20 07/16/20 20:47 22:43 23:06 WBC RBC Hgb Hct MCV MCH MCHC RDW Plt Count Lymph % (Auto) [place] % (Auto) Lymph # (Auto) [place] # (Auto) Eos # (Auto) Seg Neutrophils % Seg Neuts % (Manual) Lymphocytes % (Manual) Monocytes % (Manual) Nucleated RBC % Seg Neutrophils # Seg Neutrophils # Man Lymphocytes # (Manual) Monocytes # (Manual) Eosinophils # (Manual) PT INR ABG pH POC ABG pCO2 POC ABG pO2 ABG pO2 ABG Base Excess ABG Hemoglobin ABG Oxyhemoglobin ABG Sodium ABG Potassium ABG Chloride ABG Glucose VBG pH Oxyhemoglobin Carboxyhemoglobin Sodium Potassium Chloride Carbon Dioxide BUN Creatinine Glucose POC Glucose 140 H Lactic Acid 14.90 H* Calcium Phosphorus Magnesium Total Bilirubin Direct Bilirubin AST ALT Alkaline Phosphatase Ammonia Total Creatine Kinase 230 H C-Reactive Protein Total Protein Albumin Lipase Arterial Blood Glucose Arterial Blood Ionized Calcium Urine WBC (Auto) U Epithel Cells (Auto) Acetaminophen Complement C3 Complement C4 Syphilis IgG Antibody HSV I Specific Ab Crossmatch 07/17/20 07/17/20 07/17/20 01:46 01:46 04:55 WBC RBC Hgb Hct MCV MCH MCHC RDW Plt Count Lymph % (Auto) [place] % (Auto) Lymph # (Auto) [place] # (Auto) Eos # (Auto) Seg Neutrophils % Seg Neuts % (Manual) Lymphocytes % (Manual) Monocytes % (Manual) Nucleated RBC % Seg Neutrophils # Seg Neutrophils # Man Lymphocytes # (Manual) Monocytes # (Manual) Eosinophils # (Manual) PT INR ABG pH POC ABG pCO2 POC ABG pO2 ABG pO2 ABG Base Excess ABG Hemoglobin ABG Oxyhemoglobin ABG Sodium ABG Potassium ABG Chloride ABG Glucose VBG pH 7.085 L* Oxyhemoglobin Carboxyhemoglobin Sodium Potassium Chloride Carbon Dioxide BUN Creatinine Glucose POC Glucose Lactic Acid 13.20 H* 12.00 H* Calcium Phosphorus Magnesium Total Bilirubin Direct Bilirubin AST ALT Alkaline Phosphatase Ammonia Total Creatine Kinase C-Reactive Protein Total Protein Albumin Lipase Arterial Blood Glucose Arterial Blood Ionized Calcium Urine WBC (Auto) U Epithel Cells (Auto) Acetaminophen Complement C3 Complement C4 Syphilis IgG Antibody HSV I Specific Ab Crossmatch 07/17/20 07/17/20 07/17/20 06:05 07:33 07:48 WBC RBC Hgb Hct MCV MCH MCHC RDW Plt Count Lymph % (Auto) [place] % (Auto) Lymph # (Auto) [place] # (Auto) Eos # (Auto) Seg Neutrophils % Seg Neuts % (Manual) Lymphocytes % (Manual) Monocytes % (Manual) Nucleated RBC % Seg Neutrophils # Seg Neutrophils # Man Lymphocytes # (Manual) Monocytes # (Manual) Eosinophils # (Manual) PT INR ABG pH POC ABG pCO2 POC ABG pO2 ABG pO2 ABG Base Excess ABG Hemoglobin ABG Oxyhemoglobin ABG Sodium ABG Potassium ABG Chloride ABG Glucose VBG pH Oxyhemoglobin Carboxyhemoglobin Sodium Potassium Chloride Carbon Dioxide BUN Creatinine Glucose POC Glucose 59 L 125 H Lactic Acid 12.00 H* Calcium Phosphorus Magnesium Total Bilirubin Direct Bilirubin AST ALT Alkaline Phosphatase Ammonia Total Creatine Kinase C-Reactive Protein Total Protein Albumin Lipase Arterial Blood Glucose Arterial Blood Ionized Calcium Urine WBC (Auto) U Epithel Cells (Auto) Acetaminophen Complement C3 Complement C4 Syphilis IgG Antibody HSV I Specific Ab Crossmatch 07/17/20 07/17/20 07/17/20 09:23 09:23 09:24 WBC RBC Hgb Hct MCV MCH MCHC RDW Plt Count Lymph % (Auto) [place] % (Auto) Lymph # (Auto) [place] # (Auto) Eos # (Auto) Seg Neutrophils % Seg Neuts % (Manual) Lymphocytes % (Manual) Monocytes % (Manual) Nucleated RBC % Seg Neutrophils # Seg Neutrophils # Man Lymphocytes # (Manual) Monocytes # (Manual) Eosinophils # (Manual) PT INR ABG pH POC ABG pCO2 POC ABG pO2 ABG pO2 ABG Base Excess ABG Hemoglobin ABG Oxyhemoglobin ABG Sodium ABG Potassium ABG Chloride ABG Glucose VBG pH Oxyhemoglobin Carboxyhemoglobin Sodium Potassium 5.7 H Chloride 107.6 H Carbon Dioxide 13 L BUN 24 H Creatinine 2.1 H Glucose 121 H POC Glucose Lactic Acid Calcium 6.0 L D Phosphorus Magnesium Total Bilirubin 3.80 H Direct Bilirubin AST 8355 H ALT 1522 H Alkaline Phosphatase Ammonia Total Creatine Kinase 332 H C-Reactive Protein Total Protein 4.7 L D Albumin 2.8 L Lipase Arterial Blood Glucose Arterial Blood Ionized Calcium Urine WBC (Auto) U Epithel Cells (Auto) Acetaminophen 5.0 L Complement C3 Complement C4 Syphilis IgG Antibody HSV I Specific Ab Crossmatch 07/17/20 07/17/20 07/17/20 11:08 11:08 11:08 WBC RBC Hgb Hct MCV MCH MCHC RDW Plt Count Lymph % (Auto) [place] % (Auto) Lymph # (Auto) [place] # (Auto) Eos # (Auto) Seg Neutrophils % Seg Neuts % (Manual) Lymphocytes % (Manual) Monocytes % (Manual) Nucleated RBC % Seg Neutrophils # Seg Neutrophils # Man Lymphocytes # (Manual) Monocytes # (Manual) Eosinophils # (Manual) PT 60.1 H INR > 17.67 H* ABG pH POC ABG pCO2 POC ABG pO2 ABG pO2 ABG Base Excess ABG Hemoglobin ABG Oxyhemoglobin ABG Sodium ABG Potassium ABG Chloride ABG Glucose VBG pH Oxyhemoglobin Carboxyhemoglobin Sodium Potassium Chloride Carbon Dioxide BUN Creatinine Glucose POC Glucose Lactic Acid 9.80 H* Calcium Phosphorus Magnesium Total Bilirubin Direct Bilirubin AST ALT Alkaline Phosphatase Ammonia Total Creatine Kinase C-Reactive Protein Total Protein Albumin Lipase Arterial Blood Glucose Arterial Blood Ionized Calcium Urine WBC (Auto) U Epithel Cells (Auto) Acetaminophen Complement C3 Complement C4 Syphilis IgG Antibody Reactive A HSV I Specific Ab Crossmatch 07/17/20 07/17/20 07/17/20 11:08 14:34 14:34 WBC 27.2 H RBC 2.66 L Hgb 9.1 L D Hct 27.8 L D MCV 104 H MCH 34 H MCHC RDW 22.6 H Plt Count Lymph % (Auto) [place] % (Auto) Lymph # (Auto) [place] # (Auto) Eos # (Auto) Seg Neutrophils % Seg Neuts % (Manual) Lymphocytes % (Manual) Monocytes % (Manual) Nucleated RBC % Seg Neutrophils # Seg Neutrophils # Man Lymphocytes # (Manual) Monocytes # (Manual) Eosinophils # (Manual) PT INR ABG pH POC ABG pCO2 POC ABG pO2 ABG pO2 ABG Base Excess ABG Hemoglobin ABG Oxyhemoglobin ABG Sodium ABG Potassium ABG Chloride ABG Glucose VBG pH Oxyhemoglobin Carboxyhemoglobin Sodium Potassium 5.4 H Chloride 107.7 H Carbon Dioxide 16 L BUN 26 H Creatinine 2.3 H Glucose 151 H POC Glucose Lactic Acid Calcium 5.8 L* Phosphorus Magnesium Total Bilirubin 3.30 H Direct Bilirubin AST 6751 H ALT 1325 H Alkaline Phosphatase Ammonia Total Creatine Kinase C-Reactive Protein Total Protein 4.4 L Albumin 2.5 L Lipase Arterial Blood Glucose Arterial Blood Ionized Calcium Urine WBC (Auto) U Epithel Cells (Auto) Acetaminophen Complement C3 Complement C4 Syphilis IgG Antibody HSV I Specific Ab 5.23 H Crossmatch 07/17/20 07/17/20 07/17/20 14:34 14:34 14:34 WBC RBC Hgb Hct MCV MCH MCHC RDW Plt Count Lymph % (Auto) [place] % (Auto) Lymph # (Auto) [place] # (Auto) Eos # (Auto) Seg Neutrophils % Seg Neuts % (Manual) Lymphocytes % (Manual) Monocytes % (Manual) Nucleated RBC % Seg Neutrophils # Seg Neutrophils # Man Lymphocytes # (Manual) Monocytes # (Manual) Eosinophils # (Manual) PT 70.6 H INR 8.29 H* ABG pH POC ABG pCO2 POC ABG pO2 ABG pO2 ABG Base Excess ABG Hemoglobin ABG Oxyhemoglobin ABG Sodium ABG Potassium ABG Chloride ABG Glucose VBG pH Oxyhemoglobin Carboxyhemoglobin Sodium Potassium Chloride Carbon Dioxide BUN Creatinine Glucose POC Glucose Lactic Acid 7.60 H* Calcium Phosphorus Magnesium Total Bilirubin Direct Bilirubin AST ALT Alkaline Phosphatase Ammonia 75.0 H Total Creatine Kinase C-Reactive Protein Total Protein Albumin Lipase Arterial Blood Glucose Arterial Blood Ionized Calcium Urine WBC (Auto) U Epithel Cells (Auto) Acetaminophen Complement C3 Complement C4 Syphilis IgG Antibody HSV I Specific Ab Crossmatch 07/17/20 07/17/20 07/18/20 16:45 16:45 04:23 WBC 22.7 H RBC 2.47 L Hgb 8.5 L Hct 25.5 L MCV 103 H MCH 35 H MCHC RDW 21.7 H Plt Count Lymph % (Auto) 5.3 L [place] % (Auto) Lymph # (Auto) [place] # (Auto) Eos # (Auto) 0.7 H Seg Neutrophils % 88.2 H Seg Neuts % (Manual) Lymphocytes % (Manual) Monocytes % (Manual) Nucleated RBC % Seg Neutrophils # 20.0 H Seg Neutrophils # Man Lymphocytes # (Manual) Monocytes # (Manual) Eosinophils # (Manual) PT INR ABG pH POC ABG pCO2 POC ABG pO2 ABG pO2 ABG Base Excess ABG Hemoglobin ABG Oxyhemoglobin ABG Sodium ABG Potassium ABG Chloride ABG Glucose VBG pH Oxyhemoglobin Carboxyhemoglobin Sodium Potassium Chloride 107.9 H Carbon Dioxide 17 L BUN 27 H Creatinine 2.5 H Glucose 144 H POC Glucose Lactic Acid 7.00 H* Calcium 6.0 L Phosphorus Magnesium Total Bilirubin 3.30 H Direct Bilirubin AST 6456 H ALT 1286 H Alkaline Phosphatase Ammonia Total Creatine Kinase C-Reactive Protein Total Protein 4.2 L Albumin 2.5 L Lipase Arterial Blood Glucose Arterial Blood Ionized Calcium Urine WBC (Auto) U Epithel Cells (Auto) Acetaminophen Complement C3 Complement C4 Syphilis IgG Antibody HSV I Specific Ab Crossmatch 07/18/20 07/18/20 07/18/20 04:23 04:23 04:23 WBC RBC Hgb Hct MCV MCH MCHC RDW Plt Count Lymph % (Auto) [place] % (Auto) Lymph # (Auto) [place] # (Auto) Eos # (Auto) Seg Neutrophils % Seg Neuts % (Manual) Lymphocytes % (Manual) Monocytes % (Manual) Nucleated RBC % Seg Neutrophils # Seg Neutrophils # Man Lymphocytes # (Manual) Monocytes # (Manual) Eosinophils # (Manual) PT 52.9 H INR 5.78 H* ABG pH POC ABG pCO2 POC ABG pO2 ABG pO2 ABG Base Excess ABG Hemoglobin ABG Oxyhemoglobin ABG Sodium ABG Potassium ABG Chloride ABG Glucose VBG pH Oxyhemoglobin Carboxyhemoglobin Sodium Potassium Chloride 110.0 H Carbon Dioxide 17 L BUN 33 H Creatinine 3.0 H Glucose 110 H POC Glucose Lactic Acid 5.40 H* Calcium 6.4 L Phosphorus Magnesium Total Bilirubin Direct Bilirubin AST ALT Alkaline Phosphatase Ammonia Total Creatine Kinase C-Reactive Protein Total Protein Albumin Lipase Arterial Blood Glucose Arterial Blood Ionized Calcium Urine WBC (Auto) U Epithel Cells (Auto) Acetaminophen Complement C3 Complement C4 Syphilis IgG Antibody HSV I Specific Ab Crossmatch 07/18/20 07/18/20 07/18/20 04:23 07:25 Unknown WBC RBC Hgb Hct MCV MCH MCHC RDW Plt Count Lymph % (Auto) [place] % (Auto) Lymph # (Auto) [place] # (Auto) Eos # (Auto) Seg Neutrophils % Seg Neuts % (Manual) Lymphocytes % (Manual) Monocytes % (Manual) Nucleated RBC % Seg Neutrophils # Seg Neutrophils # Man Lymphocytes # (Manual) Monocytes # (Manual) Eosinophils # (Manual) PT INR ABG pH POC ABG pCO2 POC ABG pO2 ABG pO2 ABG Base Excess ABG Hemoglobin ABG Oxyhemoglobin ABG Sodium ABG Potassium ABG Chloride ABG Glucose VBG pH Oxyhemoglobin Carboxyhemoglobin Sodium Potassium Chloride Carbon Dioxide BUN Creatinine Glucose POC Glucose Lactic Acid 5.50 H* 4.80 H* Calcium Phosphorus Magnesium Total Bilirubin Direct Bilirubin AST ALT Alkaline Phosphatase Ammonia 96.0 H Total Creatine Kinase C-Reactive Protein Total Protein Albumin Lipase Arterial Blood Glucose Arterial Blood Ionized Calcium Urine WBC (Auto) U Epithel Cells (Auto) Acetaminophen Complement C3 Complement C4 Syphilis IgG Antibody HSV I Specific Ab Crossmatch 07/18/20 07/18/20 07/19/20 Unknown Unknown 02:47 WBC RBC Hgb Hct MCV MCH MCHC RDW Plt Count Lymph % (Auto) [place] % (Auto) Lymph # (Auto) [place] # (Auto) Eos # (Auto) Seg Neutrophils % Seg Neuts % (Manual) Lymphocytes % (Manual) Monocytes % (Manual) Nucleated RBC % Seg Neutrophils # Seg Neutrophils # Man Lymphocytes # (Manual) Monocytes # (Manual) Eosinophils # (Manual) PT 37.3 H INR 3.73 H ABG pH POC ABG pCO2 21.1 L POC ABG pO2 61.7 L ABG pO2 ABG Base Excess ABG Hemoglobin 8.5 L ABG Oxyhemoglobin 88.1 L ABG Sodium ABG Potassium ABG Chloride 119.0 H ABG Glucose VBG pH Oxyhemoglobin Carboxyhemoglobin Sodium Potassium Chloride Carbon Dioxide BUN Creatinine Glucose POC Glucose Lactic Acid Calcium Phosphorus Magnesium Total Bilirubin 3.70 H Direct Bilirubin 3.0 H AST 2093 H ALT 822 H Alkaline Phosphatase Ammonia Total Creatine Kinase C-Reactive Protein Total Protein 4.0 L Albumin 2.5 L Lipase Arterial Blood Glucose Arterial Blood Ionized Calcium 4.0 L Urine WBC (Auto) U Epithel Cells (Auto) Acetaminophen Complement C3 Complement C4 Syphilis IgG Antibody HSV I Specific Ab Crossmatch 07/19/20 07/19/20 07/19/20 03:01 03:01 03:01 WBC 19.4 H RBC 2.50 L Hgb 8.5 L Hct 26.1 L MCV 104 H MCH 34 H MCHC RDW 22.3 H Plt Count Lymph % (Auto) 3.7 L [place] % (Auto) Lymph # (Auto) 0.7 L [place] # (Auto) 0.9 H Eos # (Auto) Seg Neutrophils % Seg Neuts % (Manual) Lymphocytes % (Manual) Monocytes % (Manual) Nucleated RBC % Seg Neutrophils # 17.7 H Seg Neutrophils # Man Lymphocytes # (Manual) Monocytes # (Manual) Eosinophils # (Manual) PT 35.0 H INR 3.45 H ABG pH POC ABG pCO2 POC ABG pO2 ABG pO2 ABG Base Excess ABG Hemoglobin ABG Oxyhemoglobin ABG Sodium ABG Potassium ABG Chloride ABG Glucose VBG pH Oxyhemoglobin Carboxyhemoglobin Sodium Potassium Chloride Carbon Dioxide BUN Creatinine Glucose POC Glucose Lactic Acid 5.90 H* Calcium Phosphorus Magnesium Total Bilirubin Direct Bilirubin AST ALT Alkaline Phosphatase Ammonia Total Creatine Kinase C-Reactive Protein Total Protein Albumin Lipase Arterial Blood Glucose Arterial Blood Ionized Calcium Urine WBC (Auto) U Epithel Cells (Auto) Acetaminophen Complement C3 Complement C4 Syphilis IgG Antibody HSV I Specific Ab Crossmatch 07/19/20 07/19/20 07/19/20 03:01 03:01 05:25 WBC RBC Hgb Hct MCV MCH MCHC RDW Plt Count Lymph % (Auto) [place] % (Auto) Lymph # (Auto) [place] # (Auto) Eos # (Auto) Seg Neutrophils % Seg Neuts % (Manual) Lymphocytes % (Manual) Monocytes % (Manual) Nucleated RBC % Seg Neutrophils # Seg Neutrophils # Man Lymphocytes # (Manual) Monocytes # (Manual) Eosinophils # (Manual) PT INR ABG pH POC ABG pCO2 POC ABG pO2 ABG pO2 ABG Base Excess ABG Hemoglobin ABG Oxyhemoglobin ABG Sodium ABG Potassium ABG Chloride ABG Glucose VBG pH Oxyhemoglobin Carboxyhemoglobin Sodium 149 H Potassium Chloride 116.6 H Carbon Dioxide 14 L BUN 48 H Creatinine 2.5 H Glucose POC Glucose 43 L Lactic Acid Calcium 7.4 L D Phosphorus Magnesium Total Bilirubin 3.70 H Direct Bilirubin AST 1730 H ALT 751 H Alkaline Phosphatase Ammonia 126.0 H Total Creatine Kinase C-Reactive Protein Total Protein 4.3 L Albumin 2.4 L Lipase Arterial Blood Glucose Arterial Blood Ionized Calcium Urine WBC (Auto) U Epithel Cells (Auto) Acetaminophen Complement C3 Complement C4 Syphilis IgG Antibody HSV I Specific Ab Crossmatch 07/19/20 07/19/20 07/19/20 05:41 05:41 05:41 WBC 15.9 H RBC 1.80 L Hgb 6.2 L Hct 19.7 L* D MCV 109 H MCH 35 H MCHC RDW 22.7 H Plt Count 99 L Lymph % (Auto) 9.7 L [place] % (Auto) 8.3 H Lymph # (Auto) [place] # (Auto) 1.3 H Eos # (Auto) Seg Neutrophils % 81.2 H Seg Neuts % (Manual) 85.0 H Lymphocytes % (Manual) 12.0 L Monocytes % (Manual) Nucleated RBC % Seg Neutrophils # 12.9 H Seg Neutrophils # Man 13.5 H Lymphocytes # (Manual) Monocytes # (Manual) Eosinophils # (Manual) PT 51.8 H INR 5.63 H* ABG pH POC ABG pCO2 POC ABG pO2 ABG pO2 ABG Base Excess ABG Hemoglobin ABG Oxyhemoglobin ABG Sodium ABG Potassium ABG Chloride ABG Glucose VBG pH Oxyhemoglobin Carboxyhemoglobin Sodium 150 H Potassium Chloride 117.6 H Carbon Dioxide 10 L BUN 50 H Creatinine 2.8 H Glucose 308 H POC Glucose Lactic Acid Calcium 6.8 L Phosphorus Magnesium Total Bilirubin 2.20 H Direct Bilirubin AST 1224 H ALT 484 H Alkaline Phosphatase Ammonia Total Creatine Kinase C-Reactive Protein Total Protein 2.8 L D Albumin 1.6 L Lipase Arterial Blood Glucose Arterial Blood Ionized Calcium Urine WBC (Auto) U Epithel Cells (Auto) Acetaminophen Complement C3 Complement C4 Syphilis IgG Antibody HSV I Specific Ab Crossmatch 07/19/20 07/19/20 07/19/20 05:41 05:41 05:53 WBC RBC Hgb Hct MCV MCH MCHC RDW Plt Count Lymph % (Auto) [place] % (Auto) Lymph # (Auto) [place] # (Auto) Eos # (Auto) Seg Neutrophils % Seg Neuts % (Manual) Lymphocytes % (Manual) Monocytes % (Manual) Nucleated RBC % Seg Neutrophils # Seg Neutrophils # Man Lymphocytes # (Manual) Monocytes # (Manual) Eosinophils # (Manual) PT INR ABG pH POC ABG pCO2 POC ABG pO2 ABG pO2 ABG Base Excess ABG Hemoglobin ABG Oxyhemoglobin ABG Sodium ABG Potassium ABG Chloride ABG Glucose VBG pH Oxyhemoglobin Carboxyhemoglobin Sodium Potassium Chloride Carbon Dioxide BUN Creatinine Glucose POC Glucose 186 H Lactic Acid 12.00 H* Calcium Phosphorus Magnesium Total Bilirubin Direct Bilirubin AST ALT Alkaline Phosphatase Ammonia 96.0 H Total Creatine Kinase C-Reactive Protein Total Protein Albumin Lipase Arterial Blood Glucose Arterial Blood Ionized Calcium Urine WBC (Auto) U Epithel Cells (Auto) Acetaminophen Complement C3 Complement C4 Syphilis IgG Antibody HSV I Specific Ab Crossmatch 07/19/20 07/19/20 07/19/20 06:14 07:35 07:35 WBC RBC Hgb Hct MCV MCH MCHC RDW Plt Count Lymph % (Auto) [place] % (Auto) Lymph # (Auto) [place] # (Auto) Eos # (Auto) Seg Neutrophils % Seg Neuts % (Manual) Lymphocytes % (Manual) Monocytes % (Manual) Nucleated RBC % Seg Neutrophils # Seg Neutrophils # Man Lymphocytes # (Manual) Monocytes # (Manual) Eosinophils # (Manual) PT INR ABG pH 6.904 L POC ABG pCO2 50.8 H POC ABG pO2 140.1 H ABG pO2 ABG Base Excess ABG Hemoglobin 7.9 L ABG Oxyhemoglobin ABG Sodium ABG Potassium ABG Chloride 120.0 H ABG Glucose 220 H VBG pH Oxyhemoglobin Carboxyhemoglobin 1.7 H Sodium Potassium Chloride Carbon Dioxide BUN Creatinine Glucose POC Glucose Lactic Acid 8.50 H* Calcium Phosphorus Magnesium Total Bilirubin Direct Bilirubin AST ALT Alkaline Phosphatase Ammonia Total Creatine Kinase C-Reactive Protein Total Protein Albumin Lipase Arterial Blood Glucose 220 H Arterial Blood Ionized Calcium 4.1 L Urine WBC (Auto) U Epithel Cells (Auto) Acetaminophen Complement C3 Complement C4 Syphilis IgG Antibody HSV I Specific Ab Crossmatch See Detail 07/19/20 07/19/20 07/19/20 12:45 22:54 Unknown WBC 26.7 H RBC 2.68 L Hgb 9.0 L Hct 26.8 L D MCV 100 H MCH 34 H MCHC RDW 20.2 H Plt Count 104 L Lymph % (Auto) [place] % (Auto) Lymph # (Auto) [place] # (Auto) Eos # (Auto) Seg Neutrophils % Seg Neuts % (Manual) Lymphocytes % (Manual) 6.0 L Monocytes % (Manual) 8.0 H Nucleated RBC % Seg Neutrophils # Seg Neutrophils # Man 17.6 H Lymphocytes # (Manual) Monocytes # (Manual) 2.1 H Eosinophils # (Manual) PT INR ABG pH POC ABG pCO2 POC ABG pO2 ABG pO2 ABG Base Excess ABG Hemoglobin ABG Oxyhemoglobin ABG Sodium ABG Potassium ABG Chloride ABG Glucose VBG pH Oxyhemoglobin Carboxyhemoglobin Sodium Potassium Chloride Carbon Dioxide BUN Creatinine Glucose POC Glucose 121 H Lactic Acid 6.20 H* Calcium Phosphorus Magnesium Total Bilirubin Direct Bilirubin AST ALT Alkaline Phosphatase Ammonia Total Creatine Kinase C-Reactive Protein Total Protein Albumin Lipase Arterial Blood Glucose Arterial Blood Ionized Calcium Urine WBC (Auto) U Epithel Cells (Auto) Acetaminophen Complement C3 Complement C4 Syphilis IgG Antibody HSV I Specific Ab Crossmatch 07/19/20 07/19/20 07/19/20 Unknown Unknown Unknown WBC RBC Hgb Hct MCV MCH MCHC RDW Plt Count Lymph % (Auto) [place] % (Auto) Lymph # (Auto) [place] # (Auto) Eos # (Auto) Seg Neutrophils % Seg Neuts % (Manual) Lymphocytes % (Manual) Monocytes % (Manual) Nucleated RBC % Seg Neutrophils # Seg Neutrophils # Man Lymphocytes # (Manual) Monocytes # (Manual) Eosinophils # (Manual) PT 33.4 H INR 3.25 H ABG pH POC ABG pCO2 POC ABG pO2 ABG pO2 ABG Base Excess ABG Hemoglobin ABG Oxyhemoglobin ABG Sodium ABG Potassium ABG Chloride ABG Glucose VBG pH Oxyhemoglobin Carboxyhemoglobin Sodium 148 H Potassium 2.6 L* D Chloride 117.3 H Carbon Dioxide 18 L D BUN 48 H Creatinine 2.4 H Glucose 207 H POC Glucose Lactic Acid 3.90 H* Calcium 6.5 L Phosphorus Magnesium Total Bilirubin 3.80 H Direct Bilirubin AST 1228 H ALT 516 H Alkaline Phosphatase Ammonia Total Creatine Kinase C-Reactive Protein Total Protein 3.6 L D Albumin 1.9 L Lipase Arterial Blood Glucose Arterial Blood Ionized Calcium Urine WBC (Auto) U Epithel Cells (Auto) Acetaminophen Complement C3 Complement C4 Syphilis IgG Antibody HSV I Specific Ab Crossmatch 07/20/20 07/20/20 07/20/20 02:41 05:04 06:39 WBC RBC Hgb Hct MCV MCH MCHC RDW Plt Count Lymph % (Auto) [place] % (Auto) Lymph # (Auto) [place] # (Auto) Eos # (Auto) Seg Neutrophils % Seg Neuts % (Manual) Lymphocytes % (Manual) Monocytes % (Manual) Nucleated RBC % Seg Neutrophils # Seg Neutrophils # Man Lymphocytes # (Manual) Monocytes # (Manual) Eosinophils # (Manual) PT INR ABG pH POC ABG pCO2 POC ABG pO2 64.7 L ABG pO2 ABG Base Excess ABG Hemoglobin 8.8 L ABG Oxyhemoglobin 91.0 L ABG Sodium ABG Potassium 2.6 L ABG Chloride 116.0 H ABG Glucose 143 H VBG pH Oxyhemoglobin Carboxyhemoglobin 2.0 H Sodium Potassium Chloride Carbon Dioxide BUN Creatinine Glucose POC Glucose 141 H 123 H Lactic Acid Calcium Phosphorus Magnesium Total Bilirubin Direct Bilirubin AST ALT Alkaline Phosphatase Ammonia Total Creatine Kinase C-Reactive Protein Total Protein Albumin Lipase Arterial Blood Glucose 143 H Arterial Blood Ionized Calcium 3.9 L Urine WBC (Auto) U Epithel Cells (Auto) Acetaminophen Complement C3 Complement C4 Syphilis IgG Antibody HSV I Specific Ab Crossmatch 07/20/20 07/20/20 07/20/20 10:42 11:07 11:07 WBC 27.7 H RBC 2.50 L Hgb 8.4 L Hct 24.4 L MCV 98 H MCH 34 H MCHC 35 H RDW 19.8 H Plt Count 78 L Lymph % (Auto) [place] % (Auto) Lymph # (Auto) [place] # (Auto) Eos # (Auto) Seg Neutrophils % Seg Neuts % (Manual) Lymphocytes % (Manual) Monocytes % (Manual) Nucleated RBC % Seg Neutrophils # Seg Neutrophils # Man Lymphocytes # (Manual) Monocytes # (Manual) Eosinophils # (Manual) PT INR ABG pH POC ABG pCO2 POC ABG pO2 113.1 H ABG pO2 ABG Base Excess ABG Hemoglobin 8.8 L ABG Oxyhemoglobin ABG Sodium ABG Potassium 2.9 L ABG Chloride 114.0 H ABG Glucose 135 H VBG pH Oxyhemoglobin Carboxyhemoglobin 1.9 H Sodium 147 H Potassium Chloride 114.2 H Carbon Dioxide BUN 52 H Creatinine 1.8 H Glucose 143 H POC Glucose Lactic Acid Calcium 6.5 L Phosphorus Magnesium Total Bilirubin Direct Bilirubin AST ALT Alkaline Phosphatase Ammonia Total Creatine Kinase C-Reactive Protein Total Protein Albumin Lipase Arterial Blood Glucose 135 H Arterial Blood Ionized Calcium 3.8 L Urine WBC (Auto) U Epithel Cells (Auto) Acetaminophen Complement C3 Complement C4 Syphilis IgG Antibody HSV I Specific Ab Crossmatch 07/20/20 07/21/20 07/21/20 15:05 00:03 02:07 WBC RBC Hgb Hct MCV MCH MCHC RDW Plt Count Lymph % (Auto) [place] % (Auto) Lymph # (Auto) [place] # (Auto) Eos # (Auto) Seg Neutrophils % Seg Neuts % (Manual) Lymphocytes % (Manual) Monocytes % (Manual) Nucleated RBC % Seg Neutrophils # Seg Neutrophils # Man Lymphocytes # (Manual) Monocytes # (Manual) Eosinophils # (Manual) PT INR ABG pH POC ABG pCO2 POC ABG pO2 ABG pO2 ABG Base Excess ABG Hemoglobin ABG Oxyhemoglobin ABG Sodium ABG Potassium ABG Chloride ABG Glucose VBG pH Oxyhemoglobin Carboxyhemoglobin Sodium 146 H Potassium 2.8 L* 3.1 L Chloride 112.1 H Carbon Dioxide BUN 54 H Creatinine 1.9 H Glucose 107 H POC Glucose 145 H Lactic Acid Calcium 6.8 L Phosphorus Magnesium 0.90 L* Total Bilirubin Direct Bilirubin AST ALT Alkaline Phosphatase Ammonia Total Creatine Kinase C-Reactive Protein Total Protein Albumin Lipase Arterial Blood Glucose Arterial Blood Ionized Calcium Urine WBC (Auto) U Epithel Cells (Auto) Acetaminophen Complement C3 Complement C4 Syphilis IgG Antibody HSV I Specific Ab Crossmatch 07/21/20 07/21/20 07/21/20 03:42 05:21 10:59 WBC RBC Hgb Hct MCV MCH MCHC RDW Plt Count Lymph % (Auto) [place] % (Auto) Lymph # (Auto) [place] # (Auto) Eos # (Auto) Seg Neutrophils % Seg Neuts % (Manual) Lymphocytes % (Manual) Monocytes % (Manual) Nucleated RBC % Seg Neutrophils # Seg Neutrophils # Man Lymphocytes # (Manual) Monocytes # (Manual) Eosinophils # (Manual) PT INR ABG pH POC ABG pCO2 POC ABG pO2 ABG pO2 98.2 H ABG Base Excess -3.8 L ABG Hemoglobin 8.7 L ABG Oxyhemoglobin ABG Sodium ABG Potassium ABG Chloride ABG Glucose VBG pH Oxyhemoglobin 94.6 L Carboxyhemoglobin Sodium Potassium Chloride Carbon Dioxide BUN Creatinine Glucose POC Glucose 150 H 161 H Lactic Acid Calcium Phosphorus Magnesium Total Bilirubin Direct Bilirubin AST ALT Alkaline Phosphatase Ammonia Total Creatine Kinase C-Reactive Protein Total Protein Albumin Lipase Arterial Blood Glucose Arterial Blood Ionized Calcium Urine WBC (Auto) U Epithel Cells (Auto) Acetaminophen Complement C3 Complement C4 Syphilis IgG Antibody HSV I Specific Ab Crossmatch 07/21/20 07/21/20 07/21/20 13:59 16:14 17:22 WBC RBC Hgb Hct MCV MCH MCHC RDW Plt Count Lymph % (Auto) [place] % (Auto) Lymph # (Auto) [place] # (Auto) Eos # (Auto) Seg Neutrophils % Seg Neuts % (Manual) Lymphocytes % (Manual) Monocytes % (Manual) Nucleated RBC % Seg Neutrophils # Seg Neutrophils # Man Lymphocytes # (Manual) Monocytes # (Manual) Eosinophils # (Manual) PT INR ABG pH POC ABG pCO2 POC ABG pO2 ABG pO2 ABG Base Excess ABG Hemoglobin ABG Oxyhemoglobin ABG Sodium ABG Potassium ABG Chloride ABG Glucose VBG pH Oxyhemoglobin Carboxyhemoglobin Sodium Potassium 3.0 L Chloride 112.5 H Carbon Dioxide 16 L D BUN 48 H Creatinine Glucose 157 H POC Glucose 164 H 171 H Lactic Acid Calcium 7.3 L Phosphorus Magnesium Total Bilirubin Direct Bilirubin AST ALT Alkaline Phosphatase Ammonia Total Creatine Kinase C-Reactive Protein Total Protein Albumin Lipase Arterial Blood Glucose Arterial Blood Ionized Calcium Urine WBC (Auto) U Epithel Cells (Auto) Acetaminophen Complement C3 Complement C4 Syphilis IgG Antibody HSV I Specific Ab Crossmatch 07/21/20 07/22/20 07/22/20 20:06 04:25 07:57 WBC 28.9 H RBC 2.35 L Hgb 8.0 L Hct 22.2 L MCV MCH 34 H MCHC 36 H RDW 20.5 H Plt Count 41 L Lymph % (Auto) [place] % (Auto) Lymph # (Auto) [place] # (Auto) Eos # (Auto) Seg Neutrophils % Seg Neuts % (Manual) 83.0 H Lymphocytes % (Manual) 6.0 L Monocytes % (Manual) Nucleated RBC % 2.0 H Seg Neutrophils # Seg Neutrophils # Man 24.0 H Lymphocytes # (Manual) Monocytes # (Manual) 1.4 H Eosinophils # (Manual) 0.6 H PT INR ABG pH 7.500 H POC ABG pCO2 POC ABG pO2 ABG pO2 104.9 H ABG Base Excess ABG Hemoglobin 8.6 L ABG Oxyhemoglobin ABG Sodium ABG Potassium ABG Chloride ABG Glucose VBG pH Oxyhemoglobin Carboxyhemoglobin Sodium Potassium Chloride Carbon Dioxide BUN Creatinine Glucose POC Glucose 128 H Lactic Acid Calcium Phosphorus Magnesium Total Bilirubin Direct Bilirubin AST ALT Alkaline Phosphatase Ammonia Total Creatine Kinase C-Reactive Protein Total Protein Albumin Lipase Arterial Blood Glucose Arterial Blood Ionized Calcium Urine WBC (Auto) U Epithel Cells (Auto) Acetaminophen Complement C3 Complement C4 Syphilis IgG Antibody HSV I Specific Ab Crossmatch 07/22/20 07/22/20 07/22/20 07:57 07:57 12:08 WBC RBC Hgb Hct MCV MCH MCHC RDW Plt Count Lymph % (Auto) [place] % (Auto) Lymph # (Auto) [place] # (Auto) Eos # (Auto) Seg Neutrophils % Seg Neuts % (Manual) Lymphocytes % (Manual) Monocytes % (Manual) Nucleated RBC % Seg Neutrophils # Seg Neutrophils # Man Lymphocytes # (Manual) Monocytes # (Manual) Eosinophils # (Manual) PT 21.6 H INR 1.87 H ABG pH POC ABG pCO2 POC ABG pO2 ABG pO2 ABG Base Excess ABG Hemoglobin ABG Oxyhemoglobin ABG Sodium ABG Potassium ABG Chloride ABG Glucose VBG pH Oxyhemoglobin Carboxyhemoglobin Sodium 147 H D Potassium 2.6 L* Chloride 112.7 H Carbon Dioxide BUN 51 H Creatinine Glucose 104 H POC Glucose Lactic Acid Calcium 7.8 L Phosphorus 1.10 L Magnesium 1.50 L Total Bilirubin 9.80 H 11.10 H Direct Bilirubin 8.8 H AST 234 H 231 H ALT 297 H 286 H Alkaline Phosphatase 296 H 323 H Ammonia Total Creatine Kinase C-Reactive Protein Total Protein 4.1 L 3.6 L Albumin 1.8 L 2.0 L Lipase Arterial Blood Glucose Arterial Blood Ionized Calcium Urine WBC (Auto) U Epithel Cells (Auto) Acetaminophen Complement C3 Complement C4 Syphilis IgG Antibody HSV I Specific Ab Crossmatch 07/23/20 07/23/20 07/23/20 01:53 02:51 07:38 WBC RBC Hgb Hct MCV MCH MCHC RDW Plt Count Lymph % (Auto) [place] % (Auto) Lymph # (Auto) [place] # (Auto) Eos # (Auto) Seg Neutrophils % Seg Neuts % (Manual) Lymphocytes % (Manual) Monocytes % (Manual) Nucleated RBC % Seg Neutrophils # Seg Neutrophils # Man Lymphocytes # (Manual) Monocytes # (Manual) Eosinophils # (Manual) PT INR ABG pH 7.313 L POC ABG pCO2 POC ABG pO2 67.0 L ABG pO2 ABG Base Excess ABG Hemoglobin ABG Oxyhemoglobin ABG Sodium ABG Potassium 3.2 L ABG Chloride 115.0 H ABG Glucose VBG pH Oxyhemoglobin Carboxyhemoglobin Sodium Potassium Chloride Carbon Dioxide BUN Creatinine Glucose POC Glucose 64 L 62 L Lactic Acid Calcium Phosphorus Magnesium Total Bilirubin Direct Bilirubin AST ALT Alkaline Phosphatase Ammonia Total Creatine Kinase C-Reactive Protein Total Protein Albumin Lipase Arterial Blood Glucose Arterial Blood Ionized Calcium 4.3 L Urine WBC (Auto) U Epithel Cells (Auto) Acetaminophen Complement C3 Complement C4 Syphilis IgG Antibody HSV I Specific Ab Crossmatch 07/23/20 07/23/20 07/23/20 07:39 07:39 23:52 WBC 37.0 H RBC 2.30 L Hgb 7.8 L Hct 22.5 L MCV 98 H MCH 34 H MCHC 35 H RDW 21.3 H Plt Count 55 L Lymph % (Auto) [place] % (Auto) Lymph # (Auto) [place] # (Auto) Eos # (Auto) Seg Neutrophils % Seg Neuts % (Manual) 78.0 H Lymphocytes % (Manual) 10.0 L Monocytes % (Manual) Nucleated RBC % 3.0 H Seg Neutrophils # Seg Neutrophils # Man 28.9 H Lymphocytes # (Manual) Monocytes # (Manual) 1.1 H Eosinophils # (Manual) 0.7 H PT INR ABG pH POC ABG pCO2 POC ABG pO2 ABG pO2 ABG Base Excess ABG Hemoglobin ABG Oxyhemoglobin ABG Sodium ABG Potassium ABG Chloride ABG Glucose VBG pH Oxyhemoglobin Carboxyhemoglobin Sodium 148 H Potassium Chloride 114.0 H Carbon Dioxide BUN 59 H Creatinine 1.5 H Glucose POC Glucose Lactic Acid Calcium 7.7 L Phosphorus 4.60 H D Magnesium Total Bilirubin 11.20 H Direct Bilirubin AST 245 H ALT 242 H Alkaline Phosphatase 423 H Ammonia Total Creatine Kinase C-Reactive Protein 17.20 H Total Protein 4.3 L Albumin 1.8 L Lipase Arterial Blood Glucose Arterial Blood Ionized Calcium Urine WBC (Auto) U Epithel Cells (Auto) Acetaminophen Complement C3 Complement C4 Syphilis IgG Antibody HSV I Specific Ab Crossmatch 07/23/20 07/23/20 07/23/20 23:52 23:52 Unknown WBC RBC Hgb Hct MCV MCH MCHC RDW Plt Count Lymph % (Auto) [place] % (Auto) Lymph # (Auto) [place] # (Auto) Eos # (Auto) Seg Neutrophils % Seg Neuts % (Manual) Lymphocytes % (Manual) Monocytes % (Manual) Nucleated RBC % Seg Neutrophils # Seg Neutrophils # Man Lymphocytes # (Manual) Monocytes # (Manual) Eosinophils # (Manual) PT INR ABG pH POC ABG pCO2 POC ABG pO2 ABG pO2 ABG Base Excess ABG Hemoglobin ABG Oxyhemoglobin ABG Sodium ABG Potassium ABG Chloride ABG Glucose VBG pH Oxyhemoglobin Carboxyhemoglobin Sodium Potassium Chloride Carbon Dioxide BUN Creatinine Glucose POC Glucose Lactic Acid Calcium Phosphorus Magnesium Total Bilirubin Direct Bilirubin AST ALT Alkaline Phosphatase Ammonia Total Creatine Kinase C-Reactive Protein Total Protein Albumin Lipase Arterial Blood Glucose Arterial Blood Ionized Calcium Urine WBC (Auto) 102.0 H U Epithel Cells (Auto) Acetaminophen Complement C3 55 L Complement C4 11 L Syphilis IgG Antibody HSV I Specific Ab Crossmatch 07/24/20 07/24/20 07/24/20 03:39 10:14 10:14 WBC RBC Hgb Hct MCV MCH MCHC RDW Plt Count Lymph % (Auto) [place] % (Auto) Lymph # (Auto) [place] # (Auto) Eos # (Auto) Seg Neutrophils % Seg Neuts % (Manual) Lymphocytes % (Manual) Monocytes % (Manual) Nucleated RBC % Seg Neutrophils # Seg Neutrophils # Man Lymphocytes # (Manual) Monocytes # (Manual) Eosinophils # (Manual) PT INR ABG pH POC ABG pCO2 POC ABG pO2 147.8 H ABG pO2 ABG Base Excess ABG Hemoglobin 5.5 L ABG Oxyhemoglobin ABG Sodium ABG Potassium 3.0 L ABG Chloride 117.0 H ABG Glucose VBG pH Oxyhemoglobin Carboxyhemoglobin Sodium 150 H Potassium 2.6 L* D Chloride 117.1 H Carbon Dioxide BUN 48 H Creatinine Glucose POC Glucose Lactic Acid Calcium 8.2 L Phosphorus 2.30 L D Magnesium 1.50 L Total Bilirubin Direct Bilirubin AST ALT Alkaline Phosphatase Ammonia Total Creatine Kinase C-Reactive Protein Total Protein Albumin Lipase Arterial Blood Glucose Arterial Blood Ionized Calcium Urine WBC (Auto) U Epithel Cells (Auto) Acetaminophen Complement C3 Complement C4 Syphilis IgG Antibody HSV I Specific Ab Crossmatch 07/24/20 07/24/20 07/24/20 10:14 10:14 21:31 WBC RBC Hgb Hct MCV MCH MCHC RDW Plt Count Lymph % (Auto) [place] % (Auto) Lymph # (Auto) [place] # (Auto) Eos # (Auto) Seg Neutrophils % Seg Neuts % (Manual) Lymphocytes % (Manual) Monocytes % (Manual) Nucleated RBC % Seg Neutrophils # Seg Neutrophils # Man Lymphocytes # (Manual) Monocytes # (Manual) Eosinophils # (Manual) PT 22.7 H INR 1.99 H ABG pH POC ABG pCO2 POC ABG pO2 ABG pO2 ABG Base Excess ABG Hemoglobin ABG Oxyhemoglobin ABG Sodium ABG Potassium ABG Chloride ABG Glucose VBG pH Oxyhemoglobin Carboxyhemoglobin Sodium Potassium Chloride Carbon Dioxide BUN Creatinine Glucose POC Glucose 59 L Lactic Acid Calcium Phosphorus Magnesium Total Bilirubin 10.30 H Direct Bilirubin 7.8 H AST 144 H ALT 129 H Alkaline Phosphatase 308 H Ammonia Total Creatine Kinase C-Reactive Protein Total Protein 4.2 L Albumin 2.4 L Lipase Arterial Blood Glucose Arterial Blood Ionized Calcium Urine WBC (Auto) U Epithel Cells (Auto) Acetaminophen Complement C3 Complement C4 Syphilis IgG Antibody HSV I Specific Ab Crossmatch 07/25/20 07/25/20 07/25/20 05:19 05:20 08:38 WBC RBC Hgb Hct MCV MCH MCHC RDW Plt Count Lymph % (Auto) [place] % (Auto) Lymph # (Auto) [place] # (Auto) Eos # (Auto) Seg Neutrophils % Seg Neuts % (Manual) Lymphocytes % (Manual) Monocytes % (Manual) Nucleated RBC % Seg Neutrophils # Seg Neutrophils # Man Lymphocytes # (Manual) Monocytes # (Manual) Eosinophils # (Manual) PT INR ABG pH 7.458 H POC ABG pCO2 POC ABG pO2 77.5 L ABG pO2 ABG Base Excess ABG Hemoglobin 8.5 L ABG Oxyhemoglobin 93.9 L ABG Sodium 147.8 H ABG Potassium 2.9 L ABG Chloride 118.0 H ABG Glucose VBG pH Oxyhemoglobin Carboxyhemoglobin 2.1 H Sodium Potassium Chloride Carbon Dioxide BUN Creatinine Glucose POC Glucose 55 L 107 H Lactic Acid Calcium Phosphorus Magnesium Total Bilirubin Direct Bilirubin AST ALT Alkaline Phosphatase Ammonia Total Creatine Kinase C-Reactive Protein Total Protein Albumin Lipase Arterial Blood Glucose Arterial Blood Ionized Calcium Urine WBC (Auto) U Epithel Cells (Auto) Acetaminophen Complement C3 Complement C4 Syphilis IgG Antibody HSV I Specific Ab Crossmatch 07/25/20 07/25/20 07/25/20 09:53 09:53 21:54 WBC RBC Hgb Hct MCV MCH MCHC RDW Plt Count Lymph % (Auto) [place] % (Auto) Lymph # (Auto) [place] # (Auto) Eos # (Auto) Seg Neutrophils % Seg Neuts % (Manual) Lymphocytes % (Manual) Monocytes % (Manual) Nucleated RBC % Seg Neutrophils # Seg Neutrophils # Man Lymphocytes # (Manual) Monocytes # (Manual) Eosinophils # (Manual) PT 22.3 H INR 1.94 H ABG pH POC ABG pCO2 POC ABG pO2 ABG pO2 ABG Base Excess ABG Hemoglobin ABG Oxyhemoglobin ABG Sodium ABG Potassium ABG Chloride ABG Glucose VBG pH Oxyhemoglobin Carboxyhemoglobin Sodium 154 H Potassium 2.8 L* Chloride 121.5 H Carbon Dioxide BUN 47 H Creatinine Glucose POC Glucose 112 H Lactic Acid Calcium Phosphorus Magnesium Total Bilirubin 11.60 H Direct Bilirubin AST 141 H ALT 115 H Alkaline Phosphatase 355 H Ammonia Total Creatine Kinase C-Reactive Protein Total Protein 4.3 L Albumin 2.2 L Lipase Arterial Blood Glucose Arterial Blood Ionized Calcium Urine WBC (Auto) U Epithel Cells (Auto) Acetaminophen Complement C3 Complement C4 Syphilis IgG Antibody HSV I Specific Ab Crossmatch 07/26/20 07/26/20 07/26/20 01:54 05:38 07:48 WBC RBC Hgb Hct MCV MCH MCHC RDW Plt Count Lymph % (Auto) [place] % (Auto) Lymph # (Auto) [place] # (Auto) Eos # (Auto) Seg Neutrophils % Seg Neuts % (Manual) Lymphocytes % (Manual) Monocytes % (Manual) Nucleated RBC % Seg Neutrophils # Seg Neutrophils # Man Lymphocytes # (Manual) Monocytes # (Manual) Eosinophils # (Manual) PT INR ABG pH POC ABG pCO2 POC ABG pO2 ABG pO2 ABG Base Excess ABG Hemoglobin ABG Oxyhemoglobin ABG Sodium ABG Potassium ABG Chloride ABG Glucose VBG pH Oxyhemoglobin Carboxyhemoglobin Sodium Potassium Chloride Carbon Dioxide BUN Creatinine Glucose POC Glucose 130 H 155 H 155 H Lactic Acid Calcium Phosphorus Magnesium Total Bilirubin Direct Bilirubin AST ALT Alkaline Phosphatase Ammonia Total Creatine Kinase C-Reactive Protein Total Protein Albumin Lipase Arterial Blood Glucose Arterial Blood Ionized Calcium Urine WBC (Auto) U Epithel Cells (Auto) Acetaminophen Complement C3 Complement C4 Syphilis IgG Antibody HSV I Specific Ab Crossmatch 07/26/20 07/26/20 07/26/20 11:31 14:47 14:47 WBC RBC Hgb Hct MCV MCH MCHC RDW Plt Count Lymph % (Auto) [place] % (Auto) Lymph # (Auto) [place] # (Auto) Eos # (Auto) Seg Neutrophils % Seg Neuts % (Manual) Lymphocytes % (Manual) Monocytes % (Manual) Nucleated RBC % Seg Neutrophils # Seg Neutrophils # Man Lymphocytes # (Manual) Monocytes # (Manual) Eosinophils # (Manual) PT 21.2 H INR 1.83 H ABG pH POC ABG pCO2 POC ABG pO2 ABG pO2 ABG Base Excess ABG Hemoglobin ABG Oxyhemoglobin ABG Sodium ABG Potassium ABG Chloride ABG Glucose VBG pH Oxyhemoglobin Carboxyhemoglobin Sodium 148 H Potassium 3.4 L D Chloride 118.2 H Carbon Dioxide BUN 42 H Creatinine Glucose 177 H POC Glucose 147 H Lactic Acid Calcium Phosphorus Magnesium Total Bilirubin Direct Bilirubin AST ALT Alkaline Phosphatase Ammonia Total Creatine Kinase C-Reactive Protein Total Protein Albumin Lipase Arterial Blood Glucose Arterial Blood Ionized Calcium Urine WBC (Auto) U Epithel Cells (Auto) Acetaminophen Complement C3 Complement C4 Syphilis IgG Antibody HSV I Specific Ab Crossmatch 07/26/20 07/26/20 07/26/20 14:47 16:57 21:36 WBC RBC Hgb Hct MCV MCH MCHC RDW Plt Count Lymph % (Auto) [place] % (Auto) Lymph # (Auto) [place] # (Auto) Eos # (Auto) Seg Neutrophils % Seg Neuts % (Manual) Lymphocytes % (Manual) Monocytes % (Manual) Nucleated RBC % Seg Neutrophils # Seg Neutrophils # Man Lymphocytes # (Manual) Monocytes # (Manual) Eosinophils # (Manual) PT INR ABG pH POC ABG pCO2 POC ABG pO2 ABG pO2 ABG Base Excess ABG Hemoglobin ABG Oxyhemoglobin ABG Sodium ABG Potassium ABG Chloride ABG Glucose VBG pH Oxyhemoglobin Carboxyhemoglobin Sodium Potassium Chloride Carbon Dioxide BUN Creatinine Glucose POC Glucose 149 H 129 H Lactic Acid Calcium Phosphorus Magnesium Total Bilirubin 11.30 H Direct Bilirubin 8.6 H AST 139 H ALT 109 H Alkaline Phosphatase 368 H Ammonia Total Creatine Kinase C-Reactive Protein Total Protein 4.1 L Albumin 2.3 L Lipase Arterial Blood Glucose Arterial Blood Ionized Calcium Urine WBC (Auto) U Epithel Cells (Auto) Acetaminophen Complement C3 Complement C4 Syphilis IgG Antibody HSV I Specific Ab Crossmatch 07/27/20 07/27/20 07/27/20 02:03 04:45 04:45 WBC 22.2 H RBC 1.95 L Hgb 6.5 L Hct 18.9 L* MCV MCH 34 H MCHC 35 H RDW 21.3 H Plt Count 29 L Lymph % (Auto) [place] % (Auto) Lymph # (Auto) [place] # (Auto) Eos # (Auto) Seg Neutrophils % Seg Neuts % (Manual) 82.0 H Lymphocytes % (Manual) 3.0 L Monocytes % (Manual) Nucleated RBC % Seg Neutrophils # Seg Neutrophils # Man 18.2 H Lymphocytes # (Manual) 0.7 L Monocytes # (Manual) Eosinophils # (Manual) PT INR ABG pH POC ABG pCO2 POC ABG pO2 ABG pO2 ABG Base Excess ABG Hemoglobin ABG Oxyhemoglobin ABG Sodium ABG Potassium ABG Chloride ABG Glucose VBG pH Oxyhemoglobin Carboxyhemoglobin Sodium 150 H Potassium 3.4 L Chloride 119.4 H Carbon Dioxide BUN 47 H Creatinine Glucose 137 H POC Glucose 134 H Lactic Acid Calcium Phosphorus Magnesium Total Bilirubin 9.60 H Direct Bilirubin AST 120 H ALT 89 H Alkaline Phosphatase 340 H Ammonia Total Creatine Kinase C-Reactive Protein Total Protein 3.7 L Albumin 2.1 L Lipase Arterial Blood Glucose Arterial Blood Ionized Calcium Urine WBC (Auto) U Epithel Cells (Auto) Acetaminophen Complement C3 Complement C4 Syphilis IgG Antibody HSV I Specific Ab Crossmatch 07/27/20 07/27/20 07/27/20 05:36 08:45 10:28 WBC RBC Hgb Hct MCV MCH MCHC RDW Plt Count Lymph % (Auto) [place] % (Auto) Lymph # (Auto) [place] # (Auto) Eos # (Auto) Seg Neutrophils % Seg Neuts % (Manual) Lymphocytes % (Manual) Monocytes % (Manual) Nucleated RBC % Seg Neutrophils # Seg Neutrophils # Man Lymphocytes # (Manual) Monocytes # (Manual) Eosinophils # (Manual) PT INR ABG pH POC ABG pCO2 POC ABG pO2 ABG pO2 ABG Base Excess ABG Hemoglobin ABG Oxyhemoglobin ABG Sodium ABG Potassium ABG Chloride ABG Glucose VBG pH Oxyhemoglobin Carboxyhemoglobin Sodium Potassium Chloride Carbon Dioxide BUN Creatinine Glucose POC Glucose 126 H 149 H Lactic Acid Calcium Phosphorus Magnesium Total Bilirubin Direct Bilirubin AST ALT Alkaline Phosphatase Ammonia Total Creatine Kinase C-Reactive Protein Total Protein Albumin Lipase Arterial Blood Glucose Arterial Blood Ionized Calcium Urine WBC (Auto) U Epithel Cells (Auto) Acetaminophen Complement C3 Complement C4 Syphilis IgG Antibody HSV I Specific Ab Crossmatch See Detail 07/27/20 07/28/20 07/28/20 15:32 00:32 05:09 WBC RBC Hgb 9.5 L D Hct 28.6 L D MCV MCH MCHC RDW Plt Count Lymph % (Auto) [place] % (Auto) Lymph # (Auto) [place] # (Auto) Eos # (Auto) Seg Neutrophils % Seg Neuts % (Manual) Lymphocytes % (Manual) Monocytes % (Manual) Nucleated RBC % Seg Neutrophils # Seg Neutrophils # Man Lymphocytes # (Manual) Monocytes # (Manual) Eosinophils # (Manual) PT INR ABG pH POC ABG pCO2 POC ABG pO2 67.3 L ABG pO2 ABG Base Excess ABG Hemoglobin 10.5 L ABG Oxyhemoglobin 90.9 L ABG Sodium ABG Potassium ABG Chloride 117.0 H ABG Glucose 105 H VBG pH Oxyhemoglobin Carboxyhemoglobin Sodium Potassium Chloride Carbon Dioxide BUN Creatinine Glucose POC Glucose 113 H Lactic Acid Calcium Phosphorus Magnesium Total Bilirubin Direct Bilirubin AST ALT Alkaline Phosphatase Ammonia Total Creatine Kinase C-Reactive Protein Total Protein Albumin Lipase Arterial Blood Glucose 105 H Arterial Blood Ionized Calcium Urine WBC (Auto) U Epithel Cells (Auto) Acetaminophen Complement C3 Complement C4 Syphilis IgG Antibody HSV I Specific Ab Crossmatch 07/28/20 07/28/20 07/28/20 09:42 11:50 16:43 WBC RBC Hgb Hct MCV MCH MCHC RDW Plt Count Lymph % (Auto) [place] % (Auto) Lymph # (Auto) [place] # (Auto) Eos # (Auto) Seg Neutrophils % Seg Neuts % (Manual) Lymphocytes % (Manual) Monocytes % (Manual) Nucleated RBC % Seg Neutrophils # Seg Neutrophils # Man Lymphocytes # (Manual) Monocytes # (Manual) Eosinophils # (Manual) PT INR ABG pH POC ABG pCO2 POC ABG pO2 ABG pO2 ABG Base Excess ABG Hemoglobin ABG Oxyhemoglobin ABG Sodium ABG Potassium ABG Chloride ABG Glucose VBG pH Oxyhemoglobin Carboxyhemoglobin Sodium 146 H Potassium Chloride 116.7 H Carbon Dioxide 20 L BUN 51 H Creatinine 1.6 H D Glucose 107 H POC Glucose 109 H 114 H Lactic Acid Calcium 8.2 L Phosphorus Magnesium Total Bilirubin 9.70 H Direct Bilirubin AST 195 H ALT 99 H Alkaline Phosphatase 422 H Ammonia Total Creatine Kinase C-Reactive Protein Total Protein 5.2 L D Albumin 2.1 L Lipase Arterial Blood Glucose Arterial Blood Ionized Calcium Urine WBC (Auto) U Epithel Cells (Auto) Acetaminophen Complement C3 Complement C4 Syphilis IgG Antibody HSV I Specific Ab Crossmatch 07/28/20 07/28/20 07/29/20 21:29 23:48 02:10 WBC RBC Hgb Hct MCV MCH MCHC RDW Plt Count Lymph % (Auto) [place] % (Auto) Lymph # (Auto) [place] # (Auto) Eos # (Auto) Seg Neutrophils % Seg Neuts % (Manual) Lymphocytes % (Manual) Monocytes % (Manual) Nucleated RBC % Seg Neutrophils # Seg Neutrophils # Man Lymphocytes # (Manual) Monocytes # (Manual) Eosinophils # (Manual) PT INR ABG pH POC ABG pCO2 POC ABG pO2 ABG pO2 ABG Base Excess ABG Hemoglobin ABG Oxyhemoglobin ABG Sodium ABG Potassium ABG Chloride ABG Glucose VBG pH Oxyhemoglobin Carboxyhemoglobin Sodium Potassium Chloride Carbon Dioxide BUN Creatinine Glucose POC Glucose 122 H 117 H 136 H Lactic Acid Calcium Phosphorus Magnesium Total Bilirubin Direct Bilirubin AST ALT Alkaline Phosphatase Ammonia Total Creatine Kinase C-Reactive Protein Total Protein Albumin Lipase Arterial Blood Glucose Arterial Blood Ionized Calcium Urine WBC (Auto) U Epithel Cells (Auto) Acetaminophen Complement C3 Complement C4 Syphilis IgG Antibody HSV I Specific Ab Crossmatch 07/29/20 07/29/20 07/29/20 05:15 12:19 13:34 WBC RBC Hgb Hct MCV MCH MCHC RDW Plt Count Lymph % (Auto) [place] % (Auto) Lymph # (Auto) [place] # (Auto) Eos # (Auto) Seg Neutrophils % Seg Neuts % (Manual) Lymphocytes % (Manual) Monocytes % (Manual) Nucleated RBC % Seg Neutrophils # Seg Neutrophils # Man Lymphocytes # (Manual) Monocytes # (Manual) Eosinophils # (Manual) PT INR ABG pH POC ABG pCO2 POC ABG pO2 ABG pO2 ABG Base Excess ABG Hemoglobin ABG Oxyhemoglobin ABG Sodium ABG Potassium ABG Chloride ABG Glucose VBG pH Oxyhemoglobin Carboxyhemoglobin Sodium Potassium Chloride Carbon Dioxide BUN Creatinine Glucose POC Glucose 128 H 115 H 124 H Lactic Acid Calcium Phosphorus Magnesium Total Bilirubin Direct Bilirubin AST ALT Alkaline Phosphatase Ammonia Total Creatine Kinase C-Reactive Protein Total Protein Albumin Lipase Arterial Blood Glucose Arterial Blood Ionized Calcium Urine WBC (Auto) U Epithel Cells (Auto) Acetaminophen Complement C3 Complement C4 Syphilis IgG Antibody HSV I Specific Ab Crossmatch 07/29/20 07/29/20 07/29/20 13:42 15:00 17:04 WBC 37.2 H RBC 2.90 L Hgb 9.4 L Hct 28.2 L MCV 98 H MCH 33 H MCHC RDW 19.3 H Plt Count 55 L Lymph % (Auto) [place] % (Auto) Lymph # (Auto) [place] # (Auto) Eos # (Auto) Seg Neutrophils % Seg Neuts % (Manual) 93.0 H Lymphocytes % (Manual) 6.0 L Monocytes % (Manual) Nucleated RBC % 2.0 H Seg Neutrophils # Seg Neutrophils # Man 34.6 H Lymphocytes # (Manual) Monocytes # (Manual) Eosinophils # (Manual) PT INR ABG pH POC ABG pCO2 POC ABG pO2 ABG pO2 ABG Base Excess ABG Hemoglobin ABG Oxyhemoglobin ABG Sodium ABG Potassium ABG Chloride ABG Glucose VBG pH Oxyhemoglobin Carboxyhemoglobin Sodium 148 H Potassium Chloride 117.9 H Carbon Dioxide 21 L BUN 62 H Creatinine 1.8 H Glucose 124 H POC Glucose Lactic Acid Calcium 8.1 L Phosphorus Magnesium Total Bilirubin Direct Bilirubin AST ALT Alkaline Phosphatase Ammonia Total Creatine Kinase C-Reactive Protein Total Protein Albumin Lipase Arterial Blood Glucose Arterial Blood Ionized Calcium Urine WBC (Auto) 127.0 H U Epithel Cells (Auto) 18.0 H Acetaminophen Complement C3 Complement C4 Syphilis IgG Antibody HSV I Specific Ab Crossmatch 07/29/20 07/29/20 07/30/20 18:25 21:28 01:57 WBC RBC Hgb Hct MCV MCH MCHC RDW Plt Count Lymph % (Auto) [place] % (Auto) Lymph # (Auto) [place] # (Auto) Eos # (Auto) Seg Neutrophils % Seg Neuts % (Manual) Lymphocytes % (Manual) Monocytes % (Manual) Nucleated RBC % Seg Neutrophils # Seg Neutrophils # Man Lymphocytes # (Manual) Monocytes # (Manual) Eosinophils # (Manual) PT INR ABG pH POC ABG pCO2 POC ABG pO2 ABG pO2 ABG Base Excess ABG Hemoglobin ABG Oxyhemoglobin ABG Sodium ABG Potassium ABG Chloride ABG Glucose VBG pH Oxyhemoglobin Carboxyhemoglobin Sodium Potassium Chloride Carbon Dioxide BUN Creatinine Glucose POC Glucose 129 H 113 H 115 H Lactic Acid Calcium Phosphorus Magnesium Total Bilirubin Direct Bilirubin AST ALT Alkaline Phosphatase Ammonia Total Creatine Kinase C-Reactive Protein Total Protein Albumin Lipase Arterial Blood Glucose Arterial Blood Ionized Calcium Urine WBC (Auto) U Epithel Cells (Auto) Acetaminophen Complement C3 Complement C4 Syphilis IgG Antibody HSV I Specific Ab Crossmatch 07/30/20 07/30/20 07/30/20 05:36 05:46 11:40 WBC RBC Hgb Hct MCV MCH MCHC RDW Plt Count Lymph % (Auto) [place] % (Auto) Lymph # (Auto) [place] # (Auto) Eos # (Auto) Seg Neutrophils % Seg Neuts % (Manual) Lymphocytes % (Manual) Monocytes % (Manual) Nucleated RBC % Seg Neutrophils # Seg Neutrophils # Man Lymphocytes # (Manual) Monocytes # (Manual) Eosinophils # (Manual) PT INR ABG pH POC ABG pCO2 POC ABG pO2 ABG pO2 ABG Base Excess ABG Hemoglobin ABG Oxyhemoglobin ABG Sodium ABG Potassium ABG Chloride ABG Glucose VBG pH Oxyhemoglobin Carboxyhemoglobin Sodium 149 H Potassium Chloride 118.2 H Carbon Dioxide 20 L BUN 1 L Creatinine 2.0 H Glucose 133 H POC Glucose 115 H 126 H Lactic Acid Calcium 7.7 L Phosphorus Magnesium Total Bilirubin Direct Bilirubin AST ALT Alkaline Phosphatase Ammonia Total Creatine Kinase C-Reactive Protein Total Protein Albumin Lipase Arterial Blood Glucose Arterial Blood Ionized Calcium Urine WBC (Auto) U Epithel Cells (Auto) Acetaminophen Complement C3 Complement C4 Syphilis IgG Antibody HSV I Specific Ab Crossmatch
--- NOTE | 2020-07-31 01:51 | Progress Note ---
Assessment and Plan The high probability of a clinically significant, sudden or life threatening deterioration of the [neuro, cardiac, renal, pulmonary] system(s) required my full and direct attention, intervention and personal management. The aggregate critical care time was [35] minutes. This time is in addition to time spent performing reported procedures but includes the following: [x] Data Review and interpretation [x] Patient assessment and monitoring of vital signs [x] Documentation [x] Medication orders and management - Patient Problems (1) Severe sepsis with septic shock Current Visit: Yes Status: Acute Plan to address problem: Sepsis protocol, IV pressor support, IV antibiotic therapy, IV fluid resuscitation therapy, maintain mean arterial pressure greater than or equal to 65, monitor urine output every shift, serial lactic acid level (2) Acute respiratory failure Current Visit: Yes Status: Acute Qualifiers: Respiratory failure complication: hypoxia Qualified Code(s): J96.01 - Acute respiratory failure with hypoxia Plan to address problem: Patient intubated and placed on ventilatory support overnight. Wean vent as tolerated, pulmonary team consulted, spontaneous breathing trial daily, sedation holiday, supportive care. (3) Acute liver failure Current Visit: Yes Status: Acute Plan to address problem: Supportive care, GI team consulted. Pt has poor prognosis, and currently unstable for transfer. (4) Metabolic acidosis Current Visit: Yes Status: Acute Plan to address problem: BMP, IV bicarbonate therapy, repeat BMP (5) UTI (urinary tract infection) Current Visit: Yes Status: Acute Qualifiers: Encounter type: initial encounter Plan to address problem: IV antibiotic therapy, supportive care. (6) DVT prophylaxis Current Visit: Yes Status: Acute Plan to address problem: SCD to bilateral lower extremities while in bed (7) Acute kidney injury (RINA) with acute tubular necrosis (ATN) Current Visit: Yes Status: Acute Plan to address problem: Nephrology team consulted, IV fluid resuscitation therapy, monitor urine output every shift, monitor fluid balance, supportive care. (8) Cardiac arrest Current Visit: Yes Status: Acute Plan to address problem: Patient experienced cardiac arrest overnight. Patient treated with ACLS protocol with eventual return of perfusing cardiac rhythm. Patient has poor prognosis. (9) Toxic metabolic encephalopathy Current Visit: Yes Status: Acute Plan to address problem: CT scan head, when medically stable, supportive care, continue medical management. Suspect anoxic brain injury. (10) Advance care planning Current Visit: Yes Status: Acute Plan to address problem: Disease education conducted, patient is full code, patient prognosis discussed with patient mother Tete Gao as well as patient xiomara today., patient family informed the patient shows no sign of brain function and is on multiple medications to maintain her current status. Patient family informed that patient has experienced nonsurvivable physiologic insult and has suffered anoxic brain injury. Patient family acknowledges prognosis but declines to make decision for gait regarding withdrawal of care due to patient's 5 children and that the need for necessary arrangements to be made for the care of the children. Awaiting decision on withdrawal of care. . Patient family informed of care plan. +60 minutes. Subjective Date of service: 07/30/20 Principal diagnosis: Acute Liver Injury Interval history: History Interval history: 29 YO Female HD #9 with Severe Sepsis complicated by Shock, Fulminant Hepatic Failure, ETOH Dependence, RINA with ATN, Toxic Metabolic Encephalopathy, Elevated INR, Metabolic Acidosis, Acute Respiratory Failure S/P Cardiac Arrest, Anoxic Brain Injury. Patient is critically ill and has very poor prognosis. Patient currently intubated and on ventilatory support. Patient has poor prognosis. No significant overnight improvement. Patient prognosis discussed again with patient mother and xiomara. Patient family acknowledges understanding patient condition and prognosis. Objective - Exam Narrative Exam: Patient intubated - Constitutional Vitals: Vital Signs - 12hr 07/30/20 07/30/20 07/30/20 14:00 14:15 14:30 Temperature Pulse Rate 64 64 63 Pulse Rate [ From Monitor] Respiratory 10 L 15 12 Rate Blood Pressure 120/76 120/76 124/79 O2 Sat by Pulse 93 93 94 Oximetry 07/30/20 07/30/20 07/30/20 14:45 15:00 15:15 Temperature Pulse Rate 64 62 61 Pulse Rate [ From Monitor] Respiratory 15 11 L 17 Rate Blood Pressure 137/89 126/82 131/84 O2 Sat by Pulse 95 93 93 Oximetry 07/30/20 07/30/20 07/30/20 15:30 15:44 15:45 Temperature Pulse Rate 61 61 60 Pulse Rate [ From Monitor] Respiratory 18 11 L Rate Blood Pressure 125/80 131/84 131/84 O2 Sat by Pulse 93 94 93 Oximetry 07/30/20 07/30/20 07/30/20 16:00 16:15 16:30 Temperature 97.0 F L Pulse Rate 60 59 L 58 L Pulse Rate [ 60 From Monitor] Respiratory 11 L 12 11 L Rate Blood Pressure 128/84 131/86 127/84 O2 Sat by Pulse 93 94 93 Oximetry 07/30/20 07/30/20 07/30/20 16:45 17:00 17:15 Temperature Pulse Rate 58 L 57 L 57 L Pulse Rate [ From Monitor] Respiratory 9 L 10 L 8 L Rate Blood Pressure 132/87 134/86 136/88 O2 Sat by Pulse 94 94 94 Oximetry 07/30/20 07/30/20 07/30/20 17:30 17:45 18:00 Temperature Pulse Rate 58 L 55 L 56 L Pulse Rate [ From Monitor] Respiratory 11 L 10 L 8 L Rate Blood Pressure 144/93 125/82 128/84 O2 Sat by Pulse 96 94 95 Oximetry 07/30/20 07/30/20 07/30/20 18:15 18:22 18:30 Temperature Pulse Rate 55 L 56 L 54 L Pulse Rate [ From Monitor] Respiratory 14 11 L Rate Blood Pressure 133/86 144/93 129/85 O2 Sat by Pulse 97 95 96 Oximetry 07/30/20 07/30/20 07/30/20 18:45 19:00 19:15 Temperature Pulse Rate 55 L 54 L 54 L Pulse Rate [ From Monitor] Respiratory 11 L 13 14 Rate Blood Pressure 137/89 133/86 136/89 O2 Sat by Pulse 97 96 96 Oximetry 07/30/20 07/30/20 07/30/20 19:30 19:45 20:00 Temperature 96.8 F L Pulse Rate 53 L 53 L 53 L Pulse Rate [ From Monitor] Respiratory 17 18 17 Rate Blood Pressure 138/90 133/88 136/87 O2 Sat by Pulse 96 95 96 Oximetry 07/30/20 07/30/20 07/30/20 20:15 20:30 20:45 Temperature Pulse Rate 52 L 54 L 52 L Pulse Rate [ From Monitor] Respiratory 18 19 18 Rate Blood Pressure 139/90 149/95 129/85 O2 Sat by Pulse 95 96 95 Oximetry 07/30/20 07/30/20 07/30/20 21:00 21:15 21:30 Temperature Pulse Rate 52 L 52 L 52 L Pulse Rate [ From Monitor] Respiratory 18 18 17 Rate Blood Pressure 137/90 130/87 136/92 O2 Sat by Pulse 96 95 94 Oximetry 07/30/20 07/30/20 07/30/20 21:45 21:54 22:00 Temperature Pulse Rate 51 L 52 L 51 L Pulse Rate [ From Monitor] Respiratory 19 18 18 Rate Blood Pressure 132/89 132/89 129/87 O2 Sat by Pulse 94 94 94 Oximetry 07/30/20 07/30/20 07/30/20 22:15 22:30 22:45 Temperature Pulse Rate 52 L 52 L 52 L Pulse Rate [ From Monitor] Respiratory 17 18 18 Rate Blood Pressure 126/83 116/74 122/81 O2 Sat by Pulse 93 92 93 Oximetry 07/30/20 07/30/20 07/30/20 23:00 23:15 23:30 Temperature Pulse Rate 52 L 52 L 51 L Pulse Rate [ From Monitor] Respiratory 18 18 16 Rate Blood Pressure 120/80 122/80 126/83 O2 Sat by Pulse 92 93 92 Oximetry 07/30/20 07/31/20 07/31/20 23:45 00:00 00:15 Temperature 96.0 F L Pulse Rate 52 L 52 L 53 L Pulse Rate [ 52 L From Monitor] Respiratory 18 19 18 Rate Blood Pressure 124/83 134/86 126/82 O2 Sat by Pulse 94 94 93 Oximetry 07/31/20 07/31/20 07/31/20 00:30 00:33 00:45 Temperature Pulse Rate 53 L 54 L 54 L Pulse Rate [ From Monitor] Respiratory 15 19 Rate Blood Pressure 125/83 125/83 121/80 O2 Sat by Pulse 93 93 93 Oximetry 07/31/20 07/31/20 01:00 01:15 Temperature Pulse Rate 55 L 56 L Pulse Rate [ From Monitor] Respiratory 19 15 Rate Blood Pressure 119/80 120/79 O2 Sat by Pulse 93 94 Oximetry General appearance: Present: no acute distress, well-nourished - EENT Eyes: PERRL, EOM intact ENT: hearing intact, clear oral mucosa Ears: bilateral: normal - Neck Neck: supple, normal ROM - Respiratory Respiratory effort: normal Respiratory: bilateral: CTA - Breasts Breasts: normal - Cardiovascular Rhythm: regular Heart Sounds: Present: S1 & S2. Absent: gallop, rub Extremities: pulses intact, No edema, normal color, Full ROM - Gastrointestinal General gastrointestinal: Present: soft, non-tender, non-distended, normal bowel sounds - Genitourinary Female genitourinary: normal - Integumentary Integumentary: clear, warm, dry - Musculoskeletal Musculoskeletal: 1, strength equal bilaterally - Neurologic Neurologic: moves all extremities - Psychiatric Psychiatric: memory intact, appropriate mood/affect, intact judgment & insight - Labs CBC & Chem 7: 07/29/20 17:04 07/30/20 05:46 Labs: Abnormal lab results 07/30/20 07/30/20 07/30/20 Range/Units 01:57 05:36 05:46 Sodium 149 H (137-145) mmol/L Chloride 118.2 H (98-107) mmol/L Carbon Dioxide 20 L (22-30) mmol/L BUN 64 H (7-17) mg/dL Creatinine 2.0 H (0.6-1.2) mg/dL Glucose 133 H (65-100) mg/dL POC Glucose 115 H 115 H (70-105) mg/dL Calcium 7.7 L (8.4-10.2) mg/dL 07/30/20 07/30/20 07/30/20 Range/Units 11:40 18:11 21:31 Sodium (137-145) mmol/L Chloride (98-107) mmol/L Carbon Dioxide (22-30) mmol/L BUN (7-17) mg/dL Creatinine (0.6-1.2) mg/dL Glucose (65-100) mg/dL POC Glucose 126 H 138 H 140 H (70-105) mg/dL Calcium (8.4-10.2) mg/dL 07/31/20 Range/Units 01:18 Sodium (137-145) mmol/L Chloride (98-107) mmol/L Carbon Dioxide (22-30) mmol/L BUN (7-17) mg/dL Creatinine (0.6-1.2) mg/dL Glucose (65-100) mg/dL POC Glucose 133 H (70-105) mg/dL Calcium (8.4-10.2) mg/dL HEART Score - HEART Score Troponin: Troponin T < 0.010 ng/mL (0.00-0.029) 07/16/20 20:47
[2020-07-31] MEDS: HYDROCORTISONE SOD SUCC 100 MG/2 ML VIAL IV SCH ×2 (03:10→11:27)
[2020-07-31] MEDS: MIDODRINE 5 MG TAB PO SCH ×3 (06:06→21:38)
[2020-07-31] MEDS: DEXTROSE 10% IN WATER 1,000 ML IV SCH (06:31)
[2020-07-31] MEDS: PANTOPRAZOLE 80 MG in SODIUM CHLORIDE 0.9% 100 ML IV SCH (07:19)
[2020-07-31] MEDS: FOLIC ACID 1 MG in SODIUM CHLORIDE 0.9% 50 ML IV SCH (10:41)
[2020-07-31] MEDS: THIAMINE 100 MG in SODIUM CHLORIDE 0.9% 50 ML IV SCH (10:41)
--- NOTE | 2020-07-31 10:41 | Progress Note ---
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 07/31/20: BP stable, now off vasopressors. Going for MRI today. Reattempt tube feeding post MRI. Needs to have labs checked to evaluate platelets, can order for tomorrow. Today is day 12 on intubation. I spoke with neuro over the phone this am and ask that they have another conversation with the mother in regards to her prognosis of waking up. She is also starting to have more sequale from prolonged liver disease and ICU stay. Her overall prognosis is extremely poor. 07/30/20: BP better with midodrine, thanks to pharmacy recs. Will turn off vasopressin and attempt to get MRI today. Will then lean on Neuro to help us with ultimate prognosis to help family make decisions about next steps. Today is day 11 of intubation. Family meeting needs to take place this week. If family wishes to continue aggressively, she will need trach and peg. Patient has been having nasal and oral bleeding. Platelets have been low but up to 55 now. No indication for blood or platelet transfusion. 07/29/20: Still no MRI yet. Remains unresponsive. Spoke with pharmacy today mustapha l try midodrine with reglan to see if we can wean pressors. No labs checked today. Renal function was worsening as of yesterday. Will order labs for tomorrow. Today is day 10 of intubation. Await further input from neurology. Need to set up family meeting soon to discuss next steps and goals of care. Overall prognosis is poor. 07/28/20: Await MRI. EEG draft from yesterday shows severe encephalopathy with multiple etiologies. Will attempt trickle feeds today despite 2 pressor need. If she does not tolerate, will talk to nutrition about TPN. Need neurology input once MRI done and read as the overall prognosis here appears to be poor and decisions need to be made in regards to next steps of care. Patient has been intubated now since 07/19/2020 (Today is day 9 of intubation). If family requests continued aggressive care, patient will need trach and peg placement, however, it does not appear that she can be weaned off of vasopressors. 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 Continue supportive measures. Clinical picture appears to be worsening. Family awaiting neurology input and they need imaging. 07/26/2020: Await MRI. Continue supportive care. Hopeful to wean off levo so we can start feeding patient later today. Will replace lytes and give more free water. Prognosis still appears to be very very poor from a neurological standpoint. 07/25/2020: Reviewed consultants notes on yesterday. Neuro has requested EEG to rule out status. Will speak with them in regards to MRI. Patient is stable enough for travel as pressor requirement is minimal and vent requirement is minimal. No objection to travel. Given hypoglycemia, will change fingersticks to q1 hour. Unable to feed secondary to pressor requirement or this could resultant of liver impairment. Overall prognosis appears to be poor. ] Continue supportive vent care. Not weanable secondary to mental state. Will await family meeting Wean Vasopressors for MAPS >65 Once down to one pressor can feed Will obtain formal neurology consult today May need to consider EEG Overall prognosis appears to be very poor. CCT 31 minutes. Subjective Date of service: 07/31/20 Principal diagnosis: Acute Liver Injury Interval history: Still unresponsive on the vent. Minimal vent support. Had about 700 cc's of coffee ground dark material out. No labs checked today. Going for MRI This am. Objective Vital Signs - 12hr 07/30/20 07/30/20 07/30/20 22:45 23:00 23:15 Temperature Pulse Rate 52 L 52 L 52 L Pulse Rate [ From Monitor] Respiratory 18 18 18 Rate Blood Pressure 122/81 120/80 122/80 O2 Sat by Pulse 93 92 93 Oximetry 07/30/20 07/30/20 07/31/20 23:30 23:45 00:00 Temperature 96.0 F L Pulse Rate 51 L 52 L 52 L Pulse Rate [ 52 L From Monitor] Respiratory 16 18 19 Rate Blood Pressure 126/83 124/83 134/86 O2 Sat by Pulse 92 94 94 Oximetry 07/31/20 07/31/20 07/31/20 00:15 00:30 00:33 Temperature Pulse Rate 53 L 53 L 54 L Pulse Rate [ From Monitor] Respiratory 18 15 Rate Blood Pressure 126/82 125/83 125/83 O2 Sat by Pulse 93 93 93 Oximetry 0107/31/20 07/31/20 00:45 01:00 01:15 Temperature Pulse Rate 54 L 55 L 56 L Pulse Rate [ From Monitor] Respiratory 19 19 15 Rate Blood Pressure 121/80 119/80 120/79 O2 Sat by Pulse 93 93 94 Oximetry 07/31/20 07/31/20 07/31/20 01:30 01:45 02:00 Temperature Pulse Rate 56 L 57 L 59 L Pulse Rate [ From Monitor] Respiratory 18 18 18 Rate Blood Pressure 119/78 114/70 117/75 O2 Sat by Pulse 94 93 93 Oximetry 07/31/20 07/31/20 07/31/20 02:15 02:30 02:45 Temperature Pulse Rate 59 L 60 60 Pulse Rate [ From Monitor] Respiratory 18 18 17 Rate Blood Pressure 115/70 115/70 112/67 O2 Sat by Pulse 94 94 94 Oximetry 07/31/20 07/31/20 07/31/20 03:00 03:09 03:15 Temperature 97.2 F L Pulse Rate 61 62 Pulse Rate [ From Monitor] Respiratory 18 18 Rate Blood Pressure 114/67 114/66 O2 Sat by Pulse 94 94 Oximetry 07/31/20 07/31/20 07/31/20 03:30 03:45 04:00 Temperature Pulse Rate 63 64 64 Pulse Rate [ 67 From Monitor] Respiratory 18 19 19 Rate Blood Pressure 110/62 112/61 112/58 O2 Sat by Pulse 94 94 93 Oximetry 07/31/20 07/31/20 07/31/20 04:15 04:30 04:45 Temperature Pulse Rate 65 65 67 Pulse Rate [ From Monitor] Respiratory 17 18 18 Rate Blood Pressure 112/58 112/56 112/57 O2 Sat by Pulse 93 94 93 Oximetry 07/31/20 07/31/20 07/31/20 05:00 05:15 05:30 Temperature Pulse Rate 67 70 68 Pulse Rate [ From Monitor] Respiratory 19 19 18 Rate Blood Pressure 112/56 115/66 111/56 O2 Sat by Pulse 93 94 93 Oximetry 07/31/20 07/31/20 07/31/20 05:45 06:00 06:15 Temperature Pulse Rate 69 70 71 Pulse Rate [ From Monitor] Respiratory 18 18 17 Rate Blood Pressure 113/56 113/56 115/57 O2 Sat by Pulse 94 92 93 Oximetry 07/31/20 07/31/20 07/31/20 06:30 06:45 07:40 Temperature Pulse Rate 71 72 75 Pulse Rate [ From Monitor] Respiratory 18 18 Rate Blood Pressure 111/56 113/59 115/57 O2 Sat by Pulse 92 94 93 Oximetry Constitutional: comatose Eyes: icteric ENT: other (orally intubated, no sedation) Neck: supple Effort: normal Ascultation: Bilateral: rales, rhonchi (anteriorly), other (coarse BS bilaterally) Cardiovascular: other (tachy, RR; no mrg) Gastrointestinal: normoactive bowel sounds, soft, non-tender, non-distended Integumentary: normal Extremities: no cyanosis, edema (1+ bilateral LE edema) Neurologic: other (unresponsive) Psychiatric: other (unable to assess) CBC and BMP: 07/29/20 17:04 07/30/20 05:46 ABG, PT/INR, D-dimer: ABG ABG pH 7.412 (7.320-7.450) 07/28/20 05:09 POC ABG pCO2 33.4 mmHg (32.0-48.0) 07/28/20 05:09 ABG pCO2 31.2 mm Hg 07/22/20 04:25 POC ABG pO2 67.3 mmHg (83-108) L 07/28/20 05:09 ABG pO2 104.9 mm Hg (80.0-90.0) H 07/22/20 04:25 POC ABG HCO3 20.8 07/28/20 05:09 ABG O2 Saturation 98.1 % (95.0-99.0) 07/22/20 04:25 PT/INR, D-dimer PT 21.2 Sec. (12.2-14.9) H 07/26/20 14:47 INR 1.83 (0.87-1.13) H 07/26/20 14:47 Abnormal lab findings: Abnormal Labs 07/16/20 07/16/20 07/16/20 03:54 20:47 20:47 WBC 33.9 H RBC Hgb Hct MCV 107 H MCH 34 H MCHC RDW 22.0 H Plt Count Lymph % (Auto) [place] % (Auto) Lymph # (Auto) [place] # (Auto) Eos # (Auto) Seg Neutrophils % Seg Neuts % (Manual) 89.0 H Lymphocytes % (Manual) 2.0 L Monocytes % (Manual) Nucleated RBC % 1.0 H Seg Neutrophils # Seg Neutrophils # Man 30.2 H Lymphocytes # (Manual) 0.7 L Monocytes # (Manual) 1.4 H Eosinophils # (Manual) PT INR ABG pH POC ABG pCO2 POC ABG pO2 ABG pO2 ABG Base Excess ABG Hemoglobin ABG Oxyhemoglobin ABG Sodium ABG Potassium ABG Chloride ABG Glucose VBG pH Oxyhemoglobin Carboxyhemoglobin Sodium Potassium 5.1 H Chloride Carbon Dioxide 9 L* BUN 20 H Creatinine 1.9 H Glucose 30 L* POC Glucose Lactic Acid Calcium Phosphorus Magnesium Total Bilirubin 5.40 H Direct Bilirubin AST 69416 H ALT 1829 H Alkaline Phosphatase 141 H Ammonia Total Creatine Kinase C-Reactive Protein Total Protein Albumin Lipase 9 L Arterial Blood Glucose Arterial Blood Ionized Calcium Urine WBC (Auto) 57.0 H U Epithel Cells (Auto) 23.0 H Acetaminophen Complement C3 Complement C4 Syphilis IgG Antibody HSV I Specific Ab Crossmatch 07/16/20 07/16/20 07/16/20 20:47 22:43 23:06 WBC RBC Hgb Hct MCV MCH MCHC RDW Plt Count Lymph % (Auto) [place] % (Auto) Lymph # (Auto) [place] # (Auto) Eos # (Auto) Seg Neutrophils % Seg Neuts % (Manual) Lymphocytes % (Manual) Monocytes % (Manual) Nucleated RBC % Seg Neutrophils # Seg Neutrophils # Man Lymphocytes # (Manual) Monocytes # (Manual) Eosinophils # (Manual) PT INR ABG pH POC ABG pCO2 POC ABG pO2 ABG pO2 ABG Base Excess ABG Hemoglobin ABG Oxyhemoglobin ABG Sodium ABG Potassium ABG Chloride ABG Glucose VBG pH Oxyhemoglobin Carboxyhemoglobin Sodium Potassium Chloride Carbon Dioxide BUN Creatinine Glucose POC Glucose 140 H Lactic Acid 14.90 H* Calcium Phosphorus Magnesium Total Bilirubin Direct Bilirubin AST ALT Alkaline Phosphatase Ammonia Total Creatine Kinase 230 H C-Reactive Protein Total Protein Albumin Lipase Arterial Blood Glucose Arterial Blood Ionized Calcium Urine WBC (Auto) U Epithel Cells (Auto) Acetaminophen Complement C3 Complement C4 Syphilis IgG Antibody HSV I Specific Ab Crossmatch 07/17/20 07/17/20 07/17/20 01:46 01:46 04:55 WBC RBC Hgb Hct MCV MCH MCHC RDW Plt Count Lymph % (Auto) [place] % (Auto) Lymph # (Auto) [place] # (Auto) Eos # (Auto) Seg Neutrophils % Seg Neuts % (Manual) Lymphocytes % (Manual) Monocytes % (Manual) Nucleated RBC % Seg Neutrophils # Seg Neutrophils # Man Lymphocytes # (Manual) Monocytes # (Manual) Eosinophils # (Manual) PT INR ABG pH POC ABG pCO2 POC ABG pO2 ABG pO2 ABG Base Excess ABG Hemoglobin ABG Oxyhemoglobin ABG Sodium ABG Potassium ABG Chloride ABG Glucose VBG pH 7.085 L* Oxyhemoglobin Carboxyhemoglobin Sodium Potassium Chloride Carbon Dioxide BUN Creatinine Glucose POC Glucose Lactic Acid 13.20 H* 12.00 H* Calcium Phosphorus Magnesium Total Bilirubin Direct Bilirubin AST ALT Alkaline Phosphatase Ammonia Total Creatine Kinase C-Reactive Protein Total Protein Albumin Lipase Arterial Blood Glucose Arterial Blood Ionized Calcium Urine WBC (Auto) U Epithel Cells (Auto) Acetaminophen Complement C3 Complement C4 Syphilis IgG Antibody HSV I Specific Ab Crossmatch 07/17/20 07/17/20 07/17/20 06:05 07:33 07:48 WBC RBC Hgb Hct MCV MCH MCHC RDW Plt Count Lymph % (Auto) [place] % (Auto) Lymph # (Auto) [place] # (Auto) Eos # (Auto) Seg Neutrophils % Seg Neuts % (Manual) Lymphocytes % (Manual) Monocytes % (Manual) Nucleated RBC % Seg Neutrophils # Seg Neutrophils # Man Lymphocytes # (Manual) Monocytes # (Manual) Eosinophils # (Manual) PT INR ABG pH POC ABG pCO2 POC ABG pO2 ABG pO2 ABG Base Excess ABG Hemoglobin ABG Oxyhemoglobin ABG Sodium ABG Potassium ABG Chloride ABG Glucose VBG pH Oxyhemoglobin Carboxyhemoglobin Sodium Potassium Chloride Carbon Dioxide BUN Creatinine Glucose POC Glucose 59 L 125 H Lactic Acid 12.00 H* Calcium Phosphorus Magnesium Total Bilirubin Direct Bilirubin AST ALT Alkaline Phosphatase Ammonia Total Creatine Kinase C-Reactive Protein Total Protein Albumin Lipase Arterial Blood Glucose Arterial Blood Ionized Calcium Urine WBC (Auto) U Epithel Cells (Auto) Acetaminophen Complement C3 Complement C4 Syphilis IgG Antibody HSV I Specific Ab Crossmatch 07/17/20 07/17/20 07/17/20 09:23 09:23 09:24 WBC RBC Hgb Hct MCV MCH MCHC RDW Plt Count Lymph % (Auto) [place] % (Auto) Lymph # (Auto) [place] # (Auto) Eos # (Auto) Seg Neutrophils % Seg Neuts % (Manual) Lymphocytes % (Manual) Monocytes % (Manual) Nucleated RBC % Seg Neutrophils # Seg Neutrophils # Man Lymphocytes # (Manual) Monocytes # (Manual) Eosinophils # (Manual) PT INR ABG pH POC ABG pCO2 POC ABG pO2 ABG pO2 ABG Base Excess ABG Hemoglobin ABG Oxyhemoglobin ABG Sodium ABG Potassium ABG Chloride ABG Glucose VBG pH Oxyhemoglobin Carboxyhemoglobin Sodium Potassium 5.7 H Chloride 107.6 H Carbon Dioxide 13 L BUN 24 H Creatinine 2.1 H Glucose 121 H POC Glucose Lactic Acid Calcium 6.0 L D Phosphorus Magnesium Total Bilirubin 3.80 H Direct Bilirubin AST 8355 H ALT 1522 H Alkaline Phosphatase Ammonia Total Creatine Kinase 332 H C-Reactive Protein Total Protein 4.7 L D Albumin 2.8 L Lipase Arterial Blood Glucose Arterial Blood Ionized Calcium Urine WBC (Auto) U Epithel Cells (Auto) Acetaminophen 5.0 L Complement C3 Complement C4 Syphilis IgG Antibody HSV I Specific Ab Crossmatch 07/17/20 07/17/20 07/17/20 11:08 11:08 11:08 WBC RBC Hgb Hct MCV MCH MCHC RDW Plt Count Lymph % (Auto) [place] % (Auto) Lymph # (Auto) [place] # (Auto) Eos # (Auto) Seg Neutrophils % Seg Neuts % (Manual) Lymphocytes % (Manual) Monocytes % (Manual) Nucleated RBC % Seg Neutrophils # Seg Neutrophils # Man Lymphocytes # (Manual) Monocytes # (Manual) Eosinophils # (Manual) PT 60.1 H INR > 17.67 H* ABG pH POC ABG pCO2 POC ABG pO2 ABG pO2 ABG Base Excess ABG Hemoglobin ABG Oxyhemoglobin ABG Sodium ABG Potassium ABG Chloride ABG Glucose VBG pH Oxyhemoglobin Carboxyhemoglobin Sodium Potassium Chloride Carbon Dioxide BUN Creatinine Glucose POC Glucose Lactic Acid 9.80 H* Calcium Phosphorus Magnesium Total Bilirubin Direct Bilirubin AST ALT Alkaline Phosphatase Ammonia Total Creatine Kinase C-Reactive Protein Total Protein Albumin Lipase Arterial Blood Glucose Arterial Blood Ionized Calcium Urine WBC (Auto) U Epithel Cells (Auto) Acetaminophen Complement C3 Complement C4 Syphilis IgG Antibody Reactive A HSV I Specific Ab Crossmatch 07/17/20 07/17/20 07/17/20 11:08 14:34 14:34 WBC 27.2 H RBC 2.66 L Hgb 9.1 L D Hct 27.8 L D MCV 104 H MCH 34 H MCHC RDW 22.6 H Plt Count Lymph % (Auto) [place] % (Auto) Lymph # (Auto) [place] # (Auto) Eos # (Auto) Seg Neutrophils % Seg Neuts % (Manual) Lymphocytes % (Manual) Monocytes % (Manual) Nucleated RBC % Seg Neutrophils # Seg Neutrophils # Man Lymphocytes # (Manual) Monocytes # (Manual) Eosinophils # (Manual) PT INR ABG pH POC ABG pCO2 POC ABG pO2 ABG pO2 ABG Base Excess ABG Hemoglobin ABG Oxyhemoglobin ABG Sodium ABG Potassium ABG Chloride ABG Glucose VBG pH Oxyhemoglobin Carboxyhemoglobin Sodium Potassium 5.4 H Chloride 107.7 H Carbon Dioxide 16 L BUN 26 H Creatinine 2.3 H Glucose 151 H POC Glucose Lactic Acid Calcium 5.8 L* Phosphorus Magnesium Total Bilirubin 3.30 H Direct Bilirubin AST 6751 H ALT 1325 H Alkaline Phosphatase Ammonia Total Creatine Kinase C-Reactive Protein Total Protein 4.4 L Albumin 2.5 L Lipase Arterial Blood Glucose Arterial Blood Ionized Calcium Urine WBC (Auto) U Epithel Cells (Auto) Acetaminophen Complement C3 Complement C4 Syphilis IgG Antibody HSV I Specific Ab 5.23 H Crossmatch 07/17/20 07/17/20 07/17/20 14:34 14:34 14:34 WBC RBC Hgb Hct MCV MCH MCHC RDW Plt Count Lymph % (Auto) [place] % (Auto) Lymph # (Auto) [place] # (Auto) Eos # (Auto) Seg Neutrophils % Seg Neuts % (Manual) Lymphocytes % (Manual) Monocytes % (Manual) Nucleated RBC % Seg Neutrophils # Seg Neutrophils # Man Lymphocytes # (Manual) Monocytes # (Manual) Eosinophils # (Manual) PT 70.6 H INR 8.29 H* ABG pH POC ABG pCO2 POC ABG pO2 ABG pO2 ABG Base Excess ABG Hemoglobin ABG Oxyhemoglobin ABG Sodium ABG Potassium ABG Chloride ABG Glucose VBG pH Oxyhemoglobin Carboxyhemoglobin Sodium Potassium Chloride Carbon Dioxide BUN Creatinine Glucose POC Glucose Lactic Acid 7.60 H* Calcium Phosphorus Magnesium Total Bilirubin Direct Bilirubin AST ALT Alkaline Phosphatase Ammonia 75.0 H Total Creatine Kinase C-Reactive Protein Total Protein Albumin Lipase Arterial Blood Glucose Arterial Blood Ionized Calcium Urine WBC (Auto) U Epithel Cells (Auto) Acetaminophen Complement C3 Complement C4 Syphilis IgG Antibody HSV I Specific Ab Crossmatch 07/17/20 07/17/20 07/18/20 16:45 16:45 04:23 WBC 22.7 H RBC 2.47 L Hgb 8.5 L Hct 25.5 L MCV 103 H MCH 35 H MCHC RDW 21.7 H Plt Count Lymph % (Auto) 5.3 L [place] % (Auto) Lymph # (Auto) [place] # (Auto) Eos # (Auto) 0.7 H Seg Neutrophils % 88.2 H Seg Neuts % (Manual) Lymphocytes % (Manual) Monocytes % (Manual) Nucleated RBC % Seg Neutrophils # 20.0 H Seg Neutrophils # Man Lymphocytes # (Manual) Monocytes # (Manual) Eosinophils # (Manual) PT INR ABG pH POC ABG pCO2 POC ABG pO2 ABG pO2 ABG Base Excess ABG Hemoglobin ABG Oxyhemoglobin ABG Sodium ABG Potassium ABG Chloride ABG Glucose VBG pH Oxyhemoglobin Carboxyhemoglobin Sodium Potassium Chloride 107.9 H Carbon Dioxide 17 L BUN 27 H Creatinine 2.5 H Glucose 144 H POC Glucose Lactic Acid 7.00 H* Calcium 6.0 L Phosphorus Magnesium Total Bilirubin 3.30 H Direct Bilirubin AST 6456 H ALT 1286 H Alkaline Phosphatase Ammonia Total Creatine Kinase C-Reactive Protein Total Protein 4.2 L Albumin 2.5 L Lipase Arterial Blood Glucose Arterial Blood Ionized Calcium Urine WBC (Auto) U Epithel Cells (Auto) Acetaminophen Complement C3 Complement C4 Syphilis IgG Antibody HSV I Specific Ab Crossmatch 07/18/20 07/18/20 07/18/20 04:23 04:23 04:23 WBC RBC Hgb Hct MCV MCH MCHC RDW Plt Count Lymph % (Auto) [place] % (Auto) Lymph # (Auto) [place] # (Auto) Eos # (Auto) Seg Neutrophils % Seg Neuts % (Manual) Lymphocytes % (Manual) Monocytes % (Manual) Nucleated RBC % Seg Neutrophils # Seg Neutrophils # Man Lymphocytes # (Manual) Monocytes # (Manual) Eosinophils # (Manual) PT 52.9 H INR 5.78 H* ABG pH POC ABG pCO2 POC ABG pO2 ABG pO2 ABG Base Excess ABG Hemoglobin ABG Oxyhemoglobin ABG Sodium ABG Potassium ABG Chloride ABG Glucose VBG pH Oxyhemoglobin Carboxyhemoglobin Sodium Potassium Chloride 110.0 H Carbon Dioxide 17 L BUN 33 H Creatinine 3.0 H Glucose 110 H POC Glucose Lactic Acid 5.40 H* Calcium 6.4 L Phosphorus Magnesium Total Bilirubin Direct Bilirubin AST ALT Alkaline Phosphatase Ammonia Total Creatine Kinase C-Reactive Protein Total Protein Albumin Lipase Arterial Blood Glucose Arterial Blood Ionized Calcium Urine WBC (Auto) U Epithel Cells (Auto) Acetaminophen Complement C3 Complement C4 Syphilis IgG Antibody HSV I Specific Ab Crossmatch 07/18/20 07/18/20 07/18/20 04:23 07:25 Unknown WBC RBC Hgb Hct MCV MCH MCHC RDW Plt Count Lymph % (Auto) [place] % (Auto) Lymph # (Auto) [place] # (Auto) Eos # (Auto) Seg Neutrophils % Seg Neuts % (Manual) Lymphocytes % (Manual) Monocytes % (Manual) Nucleated RBC % Seg Neutrophils # Seg Neutrophils # Man Lymphocytes # (Manual) Monocytes # (Manual) Eosinophils # (Manual) PT INR ABG pH POC ABG pCO2 POC ABG pO2 ABG pO2 ABG Base Excess ABG Hemoglobin ABG Oxyhemoglobin ABG Sodium ABG Potassium ABG Chloride ABG Glucose VBG pH Oxyhemoglobin Carboxyhemoglobin Sodium Potassium Chloride Carbon Dioxide BUN Creatinine Glucose POC Glucose Lactic Acid 5.50 H* 4.80 H* Calcium Phosphorus Magnesium Total Bilirubin Direct Bilirubin AST ALT Alkaline Phosphatase Ammonia 96.0 H Total Creatine Kinase C-Reactive Protein Total Protein Albumin Lipase Arterial Blood Glucose Arterial Blood Ionized Calcium Urine WBC (Auto) U Epithel Cells (Auto) Acetaminophen Complement C3 Complement C4 Syphilis IgG Antibody HSV I Specific Ab Crossmatch 07/18/20 07/18/20 07/19/20 Unknown Unknown 02:47 WBC RBC Hgb Hct MCV MCH MCHC RDW Plt Count Lymph % (Auto) [place] % (Auto) Lymph # (Auto) [place] # (Auto) Eos # (Auto) Seg Neutrophils % Seg Neuts % (Manual) Lymphocytes % (Manual) Monocytes % (Manual) Nucleated RBC % Seg Neutrophils # Seg Neutrophils # Man Lymphocytes # (Manual) Monocytes # (Manual) Eosinophils # (Manual) PT 37.3 H INR 3.73 H ABG pH POC ABG pCO2 21.1 L POC ABG pO2 61.7 L ABG pO2 ABG Base Excess ABG Hemoglobin 8.5 L ABG Oxyhemoglobin 88.1 L ABG Sodium ABG Potassium ABG Chloride 119.0 H ABG Glucose VBG pH Oxyhemoglobin Carboxyhemoglobin Sodium Potassium Chloride Carbon Dioxide BUN Creatinine Glucose POC Glucose Lactic Acid Calcium Phosphorus Magnesium Total Bilirubin 3.70 H Direct Bilirubin 3.0 H AST 2093 H ALT 822 H Alkaline Phosphatase Ammonia Total Creatine Kinase C-Reactive Protein Total Protein 4.0 L Albumin 2.5 L Lipase Arterial Blood Glucose Arterial Blood Ionized Calcium 4.0 L Urine WBC (Auto) U Epithel Cells (Auto) Acetaminophen Complement C3 Complement C4 Syphilis IgG Antibody HSV I Specific Ab Crossmatch 07/19/20 07/19/20 07/19/20 03:01 03:01 03:01 WBC 19.4 H RBC 2.50 L Hgb 8.5 L Hct 26.1 L MCV 104 H MCH 34 H MCHC RDW 22.3 H Plt Count Lymph % (Auto) 3.7 L [place] % (Auto) Lymph # (Auto) 0.7 L [place] # (Auto) 0.9 H Eos # (Auto) Seg Neutrophils % Seg Neuts % (Manual) Lymphocytes % (Manual) Monocytes % (Manual) Nucleated RBC % Seg Neutrophils # 17.7 H Seg Neutrophils # Man Lymphocytes # (Manual) Monocytes # (Manual) Eosinophils # (Manual) PT 35.0 H INR 3.45 H ABG pH POC ABG pCO2 POC ABG pO2 ABG pO2 ABG Base Excess ABG Hemoglobin ABG Oxyhemoglobin ABG Sodium ABG Potassium ABG Chloride ABG Glucose VBG pH Oxyhemoglobin Carboxyhemoglobin Sodium Potassium Chloride Carbon Dioxide BUN Creatinine Glucose POC Glucose Lactic Acid 5.90 H* Calcium Phosphorus Magnesium Total Bilirubin Direct Bilirubin AST ALT Alkaline Phosphatase Ammonia Total Creatine Kinase C-Reactive Protein Total Protein Albumin Lipase Arterial Blood Glucose Arterial Blood Ionized Calcium Urine WBC (Auto) U Epithel Cells (Auto) Acetaminophen Complement C3 Complement C4 Syphilis IgG Antibody HSV I Specific Ab Crossmatch 07/19/20 07/19/20 07/19/20 03:01 03:01 05:25 WBC RBC Hgb Hct MCV MCH MCHC RDW Plt Count Lymph % (Auto) [place] % (Auto) Lymph # (Auto) [place] # (Auto) Eos # (Auto) Seg Neutrophils % Seg Neuts % (Manual) Lymphocytes % (Manual) Monocytes % (Manual) Nucleated RBC % Seg Neutrophils # Seg Neutrophils # Man Lymphocytes # (Manual) Monocytes # (Manual) Eosinophils # (Manual) PT INR ABG pH POC ABG pCO2 POC ABG pO2 ABG pO2 ABG Base Excess ABG Hemoglobin ABG Oxyhemoglobin ABG Sodium ABG Potassium ABG Chloride ABG Glucose VBG pH Oxyhemoglobin Carboxyhemoglobin Sodium 149 H Potassium Chloride 116.6 H Carbon Dioxide 14 L BUN 48 H Creatinine 2.5 H Glucose POC Glucose 43 L Lactic Acid Calcium 7.4 L D Phosphorus Magnesium Total Bilirubin 3.70 H Direct Bilirubin AST 1730 H ALT 751 H Alkaline Phosphatase Ammonia 126.0 H Total Creatine Kinase C-Reactive Protein Total Protein 4.3 L Albumin 2.4 L Lipase Arterial Blood Glucose Arterial Blood Ionized Calcium Urine WBC (Auto) U Epithel Cells (Auto) Acetaminophen Complement C3 Complement C4 Syphilis IgG Antibody HSV I Specific Ab Crossmatch 07/19/20 07/19/20 07/19/20 05:41 05:41 05:41 WBC 15.9 H RBC 1.80 L Hgb 6.2 L Hct 19.7 L* D MCV 109 H MCH 35 H MCHC RDW 22.7 H Plt Count 99 L Lymph % (Auto) 9.7 L [place] % (Auto) 8.3 H Lymph # (Auto) [place] # (Auto) 1.3 H Eos # (Auto) Seg Neutrophils % 81.2 H Seg Neuts % (Manual) 85.0 H Lymphocytes % (Manual) 12.0 L Monocytes % (Manual) Nucleated RBC % Seg Neutrophils # 12.9 H Seg Neutrophils # Man 13.5 H Lymphocytes # (Manual) Monocytes # (Manual) Eosinophils # (Manual) PT 51.8 H INR 5.63 H* ABG pH POC ABG pCO2 POC ABG pO2 ABG pO2 ABG Base Excess ABG Hemoglobin ABG Oxyhemoglobin ABG Sodium ABG Potassium ABG Chloride ABG Glucose VBG pH Oxyhemoglobin Carboxyhemoglobin Sodium 150 H Potassium Chloride 117.6 H Carbon Dioxide 10 L BUN 50 H Creatinine 2.8 H Glucose 308 H POC Glucose Lactic Acid Calcium 6.8 L Phosphorus Magnesium Total Bilirubin 2.20 H Direct Bilirubin AST 1224 H ALT 484 H Alkaline Phosphatase Ammonia Total Creatine Kinase C-Reactive Protein Total Protein 2.8 L D Albumin 1.6 L Lipase Arterial Blood Glucose Arterial Blood Ionized Calcium Urine WBC (Auto) U Epithel Cells (Auto) Acetaminophen Complement C3 Complement C4 Syphilis IgG Antibody HSV I Specific Ab Crossmatch 07/19/20 07/19/20 07/19/20 05:41 05:41 05:53 WBC RBC Hgb Hct MCV MCH MCHC RDW Plt Count Lymph % (Auto) [place] % (Auto) Lymph # (Auto) [place] # (Auto) Eos # (Auto) Seg Neutrophils % Seg Neuts % (Manual) Lymphocytes % (Manual) Monocytes % (Manual) Nucleated RBC % Seg Neutrophils # Seg Neutrophils # Man Lymphocytes # (Manual) Monocytes # (Manual) Eosinophils # (Manual) PT INR ABG pH POC ABG pCO2 POC ABG pO2 ABG pO2 ABG Base Excess ABG Hemoglobin ABG Oxyhemoglobin ABG Sodium ABG Potassium ABG Chloride ABG Glucose VBG pH Oxyhemoglobin Carboxyhemoglobin Sodium Potassium Chloride Carbon Dioxide BUN Creatinine Glucose POC Glucose 186 H Lactic Acid 12.00 H* Calcium Phosphorus Magnesium Total Bilirubin Direct Bilirubin AST ALT Alkaline Phosphatase Ammonia 96.0 H Total Creatine Kinase C-Reactive Protein Total Protein Albumin Lipase Arterial Blood Glucose Arterial Blood Ionized Calcium Urine WBC (Auto) U Epithel Cells (Auto) Acetaminophen Complement C3 Complement C4 Syphilis IgG Antibody HSV I Specific Ab Crossmatch 07/19/20 07/19/20 07/19/20 06:14 07:35 07:35 WBC RBC Hgb Hct MCV MCH MCHC RDW Plt Count Lymph % (Auto) [place] % (Auto) Lymph # (Auto) [place] # (Auto) Eos # (Auto) Seg Neutrophils % Seg Neuts % (Manual) Lymphocytes % (Manual) Monocytes % (Manual) Nucleated RBC % Seg Neutrophils # Seg Neutrophils # Man Lymphocytes # (Manual) Monocytes # (Manual) Eosinophils # (Manual) PT INR ABG pH 6.904 L POC ABG pCO2 50.8 H POC ABG pO2 140.1 H ABG pO2 ABG Base Excess ABG Hemoglobin 7.9 L ABG Oxyhemoglobin ABG Sodium ABG Potassium ABG Chloride 120.0 H ABG Glucose 220 H VBG pH Oxyhemoglobin Carboxyhemoglobin 1.7 H Sodium Potassium Chloride Carbon Dioxide BUN Creatinine Glucose POC Glucose Lactic Acid 8.50 H* Calcium Phosphorus Magnesium Total Bilirubin Direct Bilirubin AST ALT Alkaline Phosphatase Ammonia Total Creatine Kinase C-Reactive Protein Total Protein Albumin Lipase Arterial Blood Glucose 220 H Arterial Blood Ionized Calcium 4.1 L Urine WBC (Auto) U Epithel Cells (Auto) Acetaminophen Complement C3 Complement C4 Syphilis IgG Antibody HSV I Specific Ab Crossmatch See Detail 07/19/20 07/19/20 07/19/20 12:45 22:54 Unknown WBC 26.7 H RBC 2.68 L Hgb 9.0 L Hct 26.8 L D MCV 100 H MCH 34 H MCHC RDW 20.2 H Plt Count 104 L Lymph % (Auto) [place] % (Auto) Lymph # (Auto) [place] # (Auto) Eos # (Auto) Seg Neutrophils % Seg Neuts % (Manual) Lymphocytes % (Manual) 6.0 L Monocytes % (Manual) 8.0 H Nucleated RBC % Seg Neutrophils # Seg Neutrophils # Man 17.6 H Lymphocytes # (Manual) Monocytes # (Manual) 2.1 H Eosinophils # (Manual) PT INR ABG pH POC ABG pCO2 POC ABG pO2 ABG pO2 ABG Base Excess ABG Hemoglobin ABG Oxyhemoglobin ABG Sodium ABG Potassium ABG Chloride ABG Glucose VBG pH Oxyhemoglobin Carboxyhemoglobin Sodium Potassium Chloride Carbon Dioxide BUN Creatinine Glucose POC Glucose 121 H Lactic Acid 6.20 H* Calcium Phosphorus Magnesium Total Bilirubin Direct Bilirubin AST ALT Alkaline Phosphatase Ammonia Total Creatine Kinase C-Reactive Protein Total Protein Albumin Lipase Arterial Blood Glucose Arterial Blood Ionized Calcium Urine WBC (Auto) U Epithel Cells (Auto) Acetaminophen Complement C3 Complement C4 Syphilis IgG Antibody HSV I Specific Ab Crossmatch 07/19/20 07/19/20 07/19/20 Unknown Unknown Unknown WBC RBC Hgb Hct MCV MCH MCHC RDW Plt Count Lymph % (Auto) [place] % (Auto) Lymph # (Auto) [place] # (Auto) Eos # (Auto) Seg Neutrophils % Seg Neuts % (Manual) Lymphocytes % (Manual) Monocytes % (Manual) Nucleated RBC % Seg Neutrophils # Seg Neutrophils # Man Lymphocytes # (Manual) Monocytes # (Manual) Eosinophils # (Manual) PT 33.4 H INR 3.25 H ABG pH POC ABG pCO2 POC ABG pO2 ABG pO2 ABG Base Excess ABG Hemoglobin ABG Oxyhemoglobin ABG Sodium ABG Potassium ABG Chloride ABG Glucose VBG pH Oxyhemoglobin Carboxyhemoglobin Sodium 148 H Potassium 2.6 L* D Chloride 117.3 H Carbon Dioxide 18 L D BUN 48 H Creatinine 2.4 H Glucose 207 H POC Glucose Lactic Acid 3.90 H* Calcium 6.5 L Phosphorus Magnesium Total Bilirubin 3.80 H Direct Bilirubin AST 1228 H ALT 516 H Alkaline Phosphatase Ammonia Total Creatine Kinase C-Reactive Protein Total Protein 3.6 L D Albumin 1.9 L Lipase Arterial Blood Glucose Arterial Blood Ionized Calcium Urine WBC (Auto) U Epithel Cells (Auto) Acetaminophen Complement C3 Complement C4 Syphilis IgG Antibody HSV I Specific Ab Crossmatch 07/20/20 07/20/20 07/20/20 02:41 05:04 06:39 WBC RBC Hgb Hct MCV MCH MCHC RDW Plt Count Lymph % (Auto) [place] % (Auto) Lymph # (Auto) [place] # (Auto) Eos # (Auto) Seg Neutrophils % Seg Neuts % (Manual) Lymphocytes % (Manual) Monocytes % (Manual) Nucleated RBC % Seg Neutrophils # Seg Neutrophils # Man Lymphocytes # (Manual) Monocytes # (Manual) Eosinophils # (Manual) PT INR ABG pH POC ABG pCO2 POC ABG pO2 64.7 L ABG pO2 ABG Base Excess ABG Hemoglobin 8.8 L ABG Oxyhemoglobin 91.0 L ABG Sodium ABG Potassium 2.6 L ABG Chloride 116.0 H ABG Glucose 143 H VBG pH Oxyhemoglobin Carboxyhemoglobin 2.0 H Sodium Potassium Chloride Carbon Dioxide BUN Creatinine Glucose POC Glucose 141 H 123 H Lactic Acid Calcium Phosphorus Magnesium Total Bilirubin Direct Bilirubin AST ALT Alkaline Phosphatase Ammonia Total Creatine Kinase C-Reactive Protein Total Protein Albumin Lipase Arterial Blood Glucose 143 H Arterial Blood Ionized Calcium 3.9 L Urine WBC (Auto) U Epithel Cells (Auto) Acetaminophen Complement C3 Complement C4 Syphilis IgG Antibody HSV I Specific Ab Crossmatch 07/20/20 07/20/20 07/20/20 10:42 11:07 11:07 WBC 27.7 H RBC 2.50 L Hgb 8.4 L Hct 24.4 L MCV 98 H MCH 34 H MCHC 35 H RDW 19.8 H Plt Count 78 L Lymph % (Auto) [place] % (Auto) Lymph # (Auto) [place] # (Auto) Eos # (Auto) Seg Neutrophils % Seg Neuts % (Manual) Lymphocytes % (Manual) Monocytes % (Manual) Nucleated RBC % Seg Neutrophils # Seg Neutrophils # Man Lymphocytes # (Manual) Monocytes # (Manual) Eosinophils # (Manual) PT INR ABG pH POC ABG pCO2 POC ABG pO2 113.1 H ABG pO2 ABG Base Excess ABG Hemoglobin 8.8 L ABG Oxyhemoglobin ABG Sodium ABG Potassium 2.9 L ABG Chloride 114.0 H ABG Glucose 135 H VBG pH Oxyhemoglobin Carboxyhemoglobin 1.9 H Sodium 147 H Potassium Chloride 114.2 H Carbon Dioxide BUN 52 H Creatinine 1.8 H Glucose 143 H POC Glucose Lactic Acid Calcium 6.5 L Phosphorus Magnesium Total Bilirubin Direct Bilirubin AST ALT Alkaline Phosphatase Ammonia Total Creatine Kinase C-Reactive Protein Total Protein Albumin Lipase Arterial Blood Glucose 135 H Arterial Blood Ionized Calcium 3.8 L Urine WBC (Auto) U Epithel Cells (Auto) Acetaminophen Complement C3 Complement C4 Syphilis IgG Antibody HSV I Specific Ab Crossmatch 07/20/20 07/21/20 07/21/20 15:05 00:03 02:07 WBC RBC Hgb Hct MCV MCH MCHC RDW Plt Count Lymph % (Auto) [place] % (Auto) Lymph # (Auto) [place] # (Auto) Eos # (Auto) Seg Neutrophils % Seg Neuts % (Manual) Lymphocytes % (Manual) Monocytes % (Manual) Nucleated RBC % Seg Neutrophils # Seg Neutrophils # Man Lymphocytes # (Manual) Monocytes # (Manual) Eosinophils # (Manual) PT INR ABG pH POC ABG pCO2 POC ABG pO2 ABG pO2 ABG Base Excess ABG Hemoglobin ABG Oxyhemoglobin ABG Sodium ABG Potassium ABG Chloride ABG Glucose VBG pH Oxyhemoglobin Carboxyhemoglobin Sodium 146 H Potassium 2.8 L* 3.1 L Chloride 112.1 H Carbon Dioxide BUN 54 H Creatinine 1.9 H Glucose 107 H POC Glucose 145 H Lactic Acid Calcium 6.8 L Phosphorus Magnesium 0.90 L* Total Bilirubin Direct Bilirubin AST ALT Alkaline Phosphatase Ammonia Total Creatine Kinase C-Reactive Protein Total Protein Albumin Lipase Arterial Blood Glucose Arterial Blood Ionized Calcium Urine WBC (Auto) U Epithel Cells (Auto) Acetaminophen Complement C3 Complement C4 Syphilis IgG Antibody HSV I Specific Ab Crossmatch 07/21/20 07/21/20 07/21/20 03:42 05:21 10:59 WBC RBC Hgb Hct MCV MCH MCHC RDW Plt Count Lymph % (Auto) [place] % (Auto) Lymph # (Auto) [place] # (Auto) Eos # (Auto) Seg Neutrophils % Seg Neuts % (Manual) Lymphocytes % (Manual) Monocytes % (Manual) Nucleated RBC % Seg Neutrophils # Seg Neutrophils # Man Lymphocytes # (Manual) Monocytes # (Manual) Eosinophils # (Manual) PT INR ABG pH POC ABG pCO2 POC ABG pO2 ABG pO2 98.2 H ABG Base Excess -3.8 L ABG Hemoglobin 8.7 L ABG Oxyhemoglobin ABG Sodium ABG Potassium ABG Chloride ABG Glucose VBG pH Oxyhemoglobin 94.6 L Carboxyhemoglobin Sodium Potassium Chloride Carbon Dioxide BUN Creatinine Glucose POC Glucose 150 H 161 H Lactic Acid Calcium Phosphorus Magnesium Total Bilirubin Direct Bilirubin AST ALT Alkaline Phosphatase Ammonia Total Creatine Kinase C-Reactive Protein Total Protein Albumin Lipase Arterial Blood Glucose Arterial Blood Ionized Calcium Urine WBC (Auto) U Epithel Cells (Auto) Acetaminophen Complement C3 Complement C4 Syphilis IgG Antibody HSV I Specific Ab Crossmatch 07/21/20 07/21/20 07/21/20 13:59 16:14 17:22 WBC RBC Hgb Hct MCV MCH MCHC RDW Plt Count Lymph % (Auto) [place] % (Auto) Lymph # (Auto) [place] # (Auto) Eos # (Auto) Seg Neutrophils % Seg Neuts % (Manual) Lymphocytes % (Manual) Monocytes % (Manual) Nucleated RBC % Seg Neutrophils # Seg Neutrophils # Man Lymphocytes # (Manual) Monocytes # (Manual) Eosinophils # (Manual) PT INR ABG pH POC ABG pCO2 POC ABG pO2 ABG pO2 ABG Base Excess ABG Hemoglobin ABG Oxyhemoglobin ABG Sodium ABG Potassium ABG Chloride ABG Glucose VBG pH Oxyhemoglobin Carboxyhemoglobin Sodium Potassium 3.0 L Chloride 112.5 H Carbon Dioxide 16 L D BUN 48 H Creatinine Glucose 157 H POC Glucose 164 H 171 H Lactic Acid Calcium 7.3 L Phosphorus Magnesium Total Bilirubin Direct Bilirubin AST ALT Alkaline Phosphatase Ammonia Total Creatine Kinase C-Reactive Protein Total Protein Albumin Lipase Arterial Blood Glucose Arterial Blood Ionized Calcium Urine WBC (Auto) U Epithel Cells (Auto) Acetaminophen Complement C3 Complement C4 Syphilis IgG Antibody HSV I Specific Ab Crossmatch 07/21/20 07/22/20 07/22/20 20:06 04:25 07:57 WBC 28.9 H RBC 2.35 L Hgb 8.0 L Hct 22.2 L MCV MCH 34 H MCHC 36 H RDW 20.5 H Plt Count 41 L Lymph % (Auto) [place] % (Auto) Lymph # (Auto) [place] # (Auto) Eos # (Auto) Seg Neutrophils % Seg Neuts % (Manual) 83.0 H Lymphocytes % (Manual) 6.0 L Monocytes % (Manual) Nucleated RBC % 2.0 H Seg Neutrophils # Seg Neutrophils # Man 24.0 H Lymphocytes # (Manual) Monocytes # (Manual) 1.4 H Eosinophils # (Manual) 0.6 H PT INR ABG pH 7.500 H POC ABG pCO2 POC ABG pO2 ABG pO2 104.9 H ABG Base Excess ABG Hemoglobin 8.6 L ABG Oxyhemoglobin ABG Sodium ABG Potassium ABG Chloride ABG Glucose VBG pH Oxyhemoglobin Carboxyhemoglobin Sodium Potassium Chloride Carbon Dioxide BUN Creatinine Glucose POC Glucose 128 H Lactic Acid Calcium Phosphorus Magnesium Total Bilirubin Direct Bilirubin AST ALT Alkaline Phosphatase Ammonia Total Creatine Kinase C-Reactive Protein Total Protein Albumin Lipase Arterial Blood Glucose Arterial Blood Ionized Calcium Urine WBC (Auto) U Epithel Cells (Auto) Acetaminophen Complement C3 Complement C4 Syphilis IgG Antibody HSV I Specific Ab Crossmatch 07/22/20 07/22/20 07/22/20 07:57 07:57 12:08 WBC RBC Hgb Hct MCV MCH MCHC RDW Plt Count Lymph % (Auto) [place] % (Auto) Lymph # (Auto) [place] # (Auto) Eos # (Auto) Seg Neutrophils % Seg Neuts % (Manual) Lymphocytes % (Manual) Monocytes % (Manual) Nucleated RBC % Seg Neutrophils # Seg Neutrophils # Man Lymphocytes # (Manual) Monocytes # (Manual) Eosinophils # (Manual) PT 21.6 H INR 1.87 H ABG pH POC ABG pCO2 POC ABG pO2 ABG pO2 ABG Base Excess ABG Hemoglobin ABG Oxyhemoglobin ABG Sodium ABG Potassium ABG Chloride ABG Glucose VBG pH Oxyhemoglobin Carboxyhemoglobin Sodium 147 H D Potassium 2.6 L* Chloride 112.7 H Carbon Dioxide BUN 51 H Creatinine Glucose 104 H POC Glucose Lactic Acid Calcium 7.8 L Phosphorus 1.10 L Magnesium 1.50 L Total Bilirubin 9.80 H 11.10 H Direct Bilirubin 8.8 H AST 234 H 231 H ALT 297 H 286 H Alkaline Phosphatase 296 H 323 H Ammonia Total Creatine Kinase C-Reactive Protein Total Protein 4.1 L 3.6 L Albumin 1.8 L 2.0 L Lipase Arterial Blood Glucose Arterial Blood Ionized Calcium Urine WBC (Auto) U Epithel Cells (Auto) Acetaminophen Complement C3 Complement C4 Syphilis IgG Antibody HSV I Specific Ab Crossmatch 07/23/20 07/23/20 07/23/20 01:53 02:51 07:38 WBC RBC Hgb Hct MCV MCH MCHC RDW Plt Count Lymph % (Auto) [place] % (Auto) Lymph # (Auto) [place] # (Auto) Eos # (Auto) Seg Neutrophils % Seg Neuts % (Manual) Lymphocytes % (Manual) Monocytes % (Manual) Nucleated RBC % Seg Neutrophils # Seg Neutrophils # Man Lymphocytes # (Manual) Monocytes # (Manual) Eosinophils # (Manual) PT INR ABG pH 7.313 L POC ABG pCO2 POC ABG pO2 67.0 L ABG pO2 ABG Base Excess ABG Hemoglobin ABG Oxyhemoglobin ABG Sodium ABG Potassium 3.2 L ABG Chloride 115.0 H ABG Glucose VBG pH Oxyhemoglobin Carboxyhemoglobin Sodium Potassium Chloride Carbon Dioxide BUN Creatinine Glucose POC Glucose 64 L 62 L Lactic Acid Calcium Phosphorus Magnesium Total Bilirubin Direct Bilirubin AST ALT Alkaline Phosphatase Ammonia Total Creatine Kinase C-Reactive Protein Total Protein Albumin Lipase Arterial Blood Glucose Arterial Blood Ionized Calcium 4.3 L Urine WBC (Auto) U Epithel Cells (Auto) Acetaminophen Complement C3 Complement C4 Syphilis IgG Antibody HSV I Specific Ab Crossmatch 07/23/20 07/23/20 07/23/20 07:39 07:39 23:52 WBC 37.0 H RBC 2.30 L Hgb 7.8 L Hct 22.5 L MCV 98 H MCH 34 H MCHC 35 H RDW 21.3 H Plt Count 55 L Lymph % (Auto) [place] % (Auto) Lymph # (Auto) [place] # (Auto) Eos # (Auto) Seg Neutrophils % Seg Neuts % (Manual) 78.0 H Lymphocytes % (Manual) 10.0 L Monocytes % (Manual) Nucleated RBC % 3.0 H Seg Neutrophils # Seg Neutrophils # Man 28.9 H Lymphocytes # (Manual) Monocytes # (Manual) 1.1 H Eosinophils # (Manual) 0.7 H PT INR ABG pH POC ABG pCO2 POC ABG pO2 ABG pO2 ABG Base Excess ABG Hemoglobin ABG Oxyhemoglobin ABG Sodium ABG Potassium ABG Chloride ABG Glucose VBG pH Oxyhemoglobin Carboxyhemoglobin Sodium 148 H Potassium Chloride 114.0 H Carbon Dioxide BUN 59 H Creatinine 1.5 H Glucose POC Glucose Lactic Acid Calcium 7.7 L Phosphorus 4.60 H D Magnesium Total Bilirubin 11.20 H Direct Bilirubin AST 245 H ALT 242 H Alkaline Phosphatase 423 H Ammonia Total Creatine Kinase C-Reactive Protein 17.20 H Total Protein 4.3 L Albumin 1.8 L Lipase Arterial Blood Glucose Arterial Blood Ionized Calcium Urine WBC (Auto) U Epithel Cells (Auto) Acetaminophen Complement C3 Complement C4 Syphilis IgG Antibody HSV I Specific Ab Crossmatch 07/23/20 07/23/20 07/23/20 23:52 23:52 Unknown WBC RBC Hgb Hct MCV MCH MCHC RDW Plt Count Lymph % (Auto) [place] % (Auto) Lymph # (Auto) [place] # (Auto) Eos # (Auto) Seg Neutrophils % Seg Neuts % (Manual) Lymphocytes % (Manual) Monocytes % (Manual) Nucleated RBC % Seg Neutrophils # Seg Neutrophils # Man Lymphocytes # (Manual) Monocytes # (Manual) Eosinophils # (Manual) PT INR ABG pH POC ABG pCO2 POC ABG pO2 ABG pO2 ABG Base Excess ABG Hemoglobin ABG Oxyhemoglobin ABG Sodium ABG Potassium ABG Chloride ABG Glucose VBG pH Oxyhemoglobin Carboxyhemoglobin Sodium Potassium Chloride Carbon Dioxide BUN Creatinine Glucose POC Glucose Lactic Acid Calcium Phosphorus Magnesium Total Bilirubin Direct Bilirubin AST ALT Alkaline Phosphatase Ammonia Total Creatine Kinase C-Reactive Protein Total Protein Albumin Lipase Arterial Blood Glucose Arterial Blood Ionized Calcium Urine WBC (Auto) 102.0 H U Epithel Cells (Auto) Acetaminophen Complement C3 55 L Complement C4 11 L Syphilis IgG Antibody HSV I Specific Ab Crossmatch 07/24/20 07/24/20 07/24/20 03:39 10:14 10:14 WBC RBC Hgb Hct MCV MCH MCHC RDW Plt Count Lymph % (Auto) [place] % (Auto) Lymph # (Auto) [place] # (Auto) Eos # (Auto) Seg Neutrophils % Seg Neuts % (Manual) Lymphocytes % (Manual) Monocytes % (Manual) Nucleated RBC % Seg Neutrophils # Seg Neutrophils # Man Lymphocytes # (Manual) Monocytes # (Manual) Eosinophils # (Manual) PT INR ABG pH POC ABG pCO2 POC ABG pO2 147.8 H ABG pO2 ABG Base Excess ABG Hemoglobin 5.5 L ABG Oxyhemoglobin ABG Sodium ABG Potassium 3.0 L ABG Chloride 117.0 H ABG Glucose VBG pH Oxyhemoglobin Carboxyhemoglobin Sodium 150 H Potassium 2.6 L* D Chloride 117.1 H Carbon Dioxide BUN 48 H Creatinine Glucose POC Glucose Lactic Acid Calcium 8.2 L Phosphorus 2.30 L D Magnesium 1.50 L Total Bilirubin Direct Bilirubin AST ALT Alkaline Phosphatase Ammonia Total Creatine Kinase C-Reactive Protein Total Protein Albumin Lipase Arterial Blood Glucose Arterial Blood Ionized Calcium Urine WBC (Auto) U Epithel Cells (Auto) Acetaminophen Complement C3 Complement C4 Syphilis IgG Antibody HSV I Specific Ab Crossmatch 07/24/20 07/24/20 07/24/20 10:14 10:14 21:31 WBC RBC Hgb Hct MCV MCH MCHC RDW Plt Count Lymph % (Auto) [place] % (Auto) Lymph # (Auto) [place] # (Auto) Eos # (Auto) Seg Neutrophils % Seg Neuts % (Manual) Lymphocytes % (Manual) Monocytes % (Manual) Nucleated RBC % Seg Neutrophils # Seg Neutrophils # Man Lymphocytes # (Manual) Monocytes # (Manual) Eosinophils # (Manual) PT 22.7 H INR 1.99 H ABG pH POC ABG pCO2 POC ABG pO2 ABG pO2 ABG Base Excess ABG Hemoglobin ABG Oxyhemoglobin ABG Sodium ABG Potassium ABG Chloride ABG Glucose VBG pH Oxyhemoglobin Carboxyhemoglobin Sodium Potassium Chloride Carbon Dioxide BUN Creatinine Glucose POC Glucose 59 L Lactic Acid Calcium Phosphorus Magnesium Total Bilirubin 10.30 H Direct Bilirubin 7.8 H AST 144 H ALT 129 H Alkaline Phosphatase 308 H Ammonia Total Creatine Kinase C-Reactive Protein Total Protein 4.2 L Albumin 2.4 L Lipase Arterial Blood Glucose Arterial Blood Ionized Calcium Urine WBC (Auto) U Epithel Cells (Auto) Acetaminophen Complement C3 Complement C4 Syphilis IgG Antibody HSV I Specific Ab Crossmatch 07/25/20 07/25/20 07/25/20 05:19 05:20 08:38 WBC RBC Hgb Hct MCV MCH MCHC RDW Plt Count Lymph % (Auto) [place] % (Auto) Lymph # (Auto) [place] # (Auto) Eos # (Auto) Seg Neutrophils % Seg Neuts % (Manual) Lymphocytes % (Manual) Monocytes % (Manual) Nucleated RBC % Seg Neutrophils # Seg Neutrophils # Man Lymphocytes # (Manual) Monocytes # (Manual) Eosinophils # (Manual) PT INR ABG pH 7.458 H POC ABG pCO2 POC ABG pO2 77.5 L ABG pO2 ABG Base Excess ABG Hemoglobin 8.5 L ABG Oxyhemoglobin 93.9 L ABG Sodium 147.8 H ABG Potassium 2.9 L ABG Chloride 118.0 H ABG Glucose VBG pH Oxyhemoglobin Carboxyhemoglobin 2.1 H Sodium Potassium Chloride Carbon Dioxide BUN Creatinine Glucose POC Glucose 55 L 107 H Lactic Acid Calcium Phosphorus Magnesium Total Bilirubin Direct Bilirubin AST ALT Alkaline Phosphatase Ammonia Total Creatine Kinase C-Reactive Protein Total Protein Albumin Lipase Arterial Blood Glucose Arterial Blood Ionized Calcium Urine WBC (Auto) U Epithel Cells (Auto) Acetaminophen Complement C3 Complement C4 Syphilis IgG Antibody HSV I Specific Ab Crossmatch 07/25/20 07/25/20 07/25/20 09:53 09:53 21:54 WBC RBC Hgb Hct MCV MCH MCHC RDW Plt Count Lymph % (Auto) [place] % (Auto) Lymph # (Auto) [place] # (Auto) Eos # (Auto) Seg Neutrophils % Seg Neuts % (Manual) Lymphocytes % (Manual) Monocytes % (Manual) Nucleated RBC % Seg Neutrophils # Seg Neutrophils # Man Lymphocytes # (Manual) Monocytes # (Manual) Eosinophils # (Manual) PT 22.3 H INR 1.94 H ABG pH POC ABG pCO2 POC ABG pO2 ABG pO2 ABG Base Excess ABG Hemoglobin ABG Oxyhemoglobin ABG Sodium ABG Potassium ABG Chloride ABG Glucose VBG pH Oxyhemoglobin Carboxyhemoglobin Sodium 154 H Potassium 2.8 L* Chloride 121.5 H Carbon Dioxide BUN 47 H Creatinine Glucose POC Glucose 112 H Lactic Acid Calcium Phosphorus Magnesium Total Bilirubin 11.60 H Direct Bilirubin AST 141 H ALT 115 H Alkaline Phosphatase 355 H Ammonia Total Creatine Kinase C-Reactive Protein Total Protein 4.3 L Albumin 2.2 L Lipase Arterial Blood Glucose Arterial Blood Ionized Calcium Urine WBC (Auto) U Epithel Cells (Auto) Acetaminophen Complement C3 Complement C4 Syphilis IgG Antibody HSV I Specific Ab Crossmatch 07/26/20 07/26/20 07/26/20 01:54 05:38 07:48 WBC RBC Hgb Hct MCV MCH MCHC RDW Plt Count Lymph % (Auto) [place] % (Auto) Lymph # (Auto) [place] # (Auto) Eos # (Auto) Seg Neutrophils % Seg Neuts % (Manual) Lymphocytes % (Manual) Monocytes % (Manual) Nucleated RBC % Seg Neutrophils # Seg Neutrophils # Man Lymphocytes # (Manual) Monocytes # (Manual) Eosinophils # (Manual) PT INR ABG pH POC ABG pCO2 POC ABG pO2 ABG pO2 ABG Base Excess ABG Hemoglobin ABG Oxyhemoglobin ABG Sodium ABG Potassium ABG Chloride ABG Glucose VBG pH Oxyhemoglobin Carboxyhemoglobin Sodium Potassium Chloride Carbon Dioxide BUN Creatinine Glucose POC Glucose 130 H 155 H 155 H Lactic Acid Calcium Phosphorus Magnesium Total Bilirubin Direct Bilirubin AST ALT Alkaline Phosphatase Ammonia Total Creatine Kinase C-Reactive Protein Total Protein Albumin Lipase Arterial Blood Glucose Arterial Blood Ionized Calcium Urine WBC (Auto) U Epithel Cells (Auto) Acetaminophen Complement C3 Complement C4 Syphilis IgG Antibody HSV I Specific Ab Crossmatch 07/26/20 07/26/20 07/26/20 11:31 14:47 14:47 WBC RBC Hgb Hct MCV MCH MCHC RDW Plt Count Lymph % (Auto) [place] % (Auto) Lymph # (Auto) [place] # (Auto) Eos # (Auto) Seg Neutrophils % Seg Neuts % (Manual) Lymphocytes % (Manual) Monocytes % (Manual) Nucleated RBC % Seg Neutrophils # Seg Neutrophils # Man Lymphocytes # (Manual) Monocytes # (Manual) Eosinophils # (Manual) PT 21.2 H INR 1.83 H ABG pH POC ABG pCO2 POC ABG pO2 ABG pO2 ABG Base Excess ABG Hemoglobin ABG Oxyhemoglobin ABG Sodium ABG Potassium ABG Chloride ABG Glucose VBG pH Oxyhemoglobin Carboxyhemoglobin Sodium 148 H Potassium 3.4 L D Chloride 118.2 H Carbon Dioxide BUN 42 H Creatinine Glucose 177 H POC Glucose 147 H Lactic Acid Calcium Phosphorus Magnesium Total Bilirubin Direct Bilirubin AST ALT Alkaline Phosphatase Ammonia Total Creatine Kinase C-Reactive Protein Total Protein Albumin Lipase Arterial Blood Glucose Arterial Blood Ionized Calcium Urine WBC (Auto) U Epithel Cells (Auto) Acetaminophen Complement C3 Complement C4 Syphilis IgG Antibody HSV I Specific Ab Crossmatch 07/26/20 07/26/20 07/26/20 14:47 16:57 21:36 WBC RBC Hgb Hct MCV MCH MCHC RDW Plt Count Lymph % (Auto) [place] % (Auto) Lymph # (Auto) [place] # (Auto) Eos # (Auto) Seg Neutrophils % Seg Neuts % (Manual) Lymphocytes % (Manual) Monocytes % (Manual) Nucleated RBC % Seg Neutrophils # Seg Neutrophils # Man Lymphocytes # (Manual) Monocytes # (Manual) Eosinophils # (Manual) PT INR ABG pH POC ABG pCO2 POC ABG pO2 ABG pO2 ABG Base Excess ABG Hemoglobin ABG Oxyhemoglobin ABG Sodium ABG Potassium ABG Chloride ABG Glucose VBG pH Oxyhemoglobin Carboxyhemoglobin Sodium Potassium Chloride Carbon Dioxide BUN Creatinine Glucose POC Glucose 149 H 129 H Lactic Acid Calcium Phosphorus Magnesium Total Bilirubin 11.30 H Direct Bilirubin 8.6 H AST 139 H ALT 109 H Alkaline Phosphatase 368 H Ammonia Total Creatine Kinase C-Reactive Protein Total Protein 4.1 L Albumin 2.3 L Lipase Arterial Blood Glucose Arterial Blood Ionized Calcium Urine WBC (Auto) U Epithel Cells (Auto) Acetaminophen Complement C3 Complement C4 Syphilis IgG Antibody HSV I Specific Ab Crossmatch 07/27/20 07/27/20 07/27/20 02:03 04:45 04:45 WBC 22.2 H RBC 1.95 L Hgb 6.5 L Hct 18.9 L* MCV MCH 34 H MCHC 35 H RDW 21.3 H Plt Count 29 L Lymph % (Auto) [place] % (Auto) Lymph # (Auto) [place] # (Auto) Eos # (Auto) Seg Neutrophils % Seg Neuts % (Manual) 82.0 H Lymphocytes % (Manual) 3.0 L Monocytes % (Manual) Nucleated RBC % Seg Neutrophils # Seg Neutrophils # Man 18.2 H Lymphocytes # (Manual) 0.7 L Monocytes # (Manual) Eosinophils # (Manual) PT INR ABG pH POC ABG pCO2 POC ABG pO2 ABG pO2 ABG Base Excess ABG Hemoglobin ABG Oxyhemoglobin ABG Sodium ABG Potassium ABG Chloride ABG Glucose VBG pH Oxyhemoglobin Carboxyhemoglobin Sodium 150 H Potassium 3.4 L Chloride 119.4 H Carbon Dioxide BUN 47 H Creatinine Glucose 137 H POC Glucose 134 H Lactic Acid Calcium Phosphorus Magnesium Total Bilirubin 9.60 H Direct Bilirubin AST 120 H ALT 89 H Alkaline Phosphatase 340 H Ammonia Total Creatine Kinase C-Reactive Protein Total Protein 3.7 L Albumin 2.1 L Lipase Arterial Blood Glucose Arterial Blood Ionized Calcium Urine WBC (Auto) U Epithel Cells (Auto) Acetaminophen Complement C3 Complement C4 Syphilis IgG Antibody HSV I Specific Ab Crossmatch 07/27/20 07/27/20 07/27/20 05:36 08:45 10:28 WBC RBC Hgb Hct MCV MCH MCHC RDW Plt Count Lymph % (Auto) [place] % (Auto) Lymph # (Auto) [place] # (Auto) Eos # (Auto) Seg Neutrophils % Seg Neuts % (Manual) Lymphocytes % (Manual) Monocytes % (Manual) Nucleated RBC % Seg Neutrophils # Seg Neutrophils # Man Lymphocytes # (Manual) Monocytes # (Manual) Eosinophils # (Manual) PT INR ABG pH POC ABG pCO2 POC ABG pO2 ABG pO2 ABG Base Excess ABG Hemoglobin ABG Oxyhemoglobin ABG Sodium ABG Potassium ABG Chloride ABG Glucose VBG pH Oxyhemoglobin Carboxyhemoglobin Sodium Potassium Chloride Carbon Dioxide BUN Creatinine Glucose POC Glucose 126 H 149 H Lactic Acid Calcium Phosphorus Magnesium Total Bilirubin Direct Bilirubin AST ALT Alkaline Phosphatase Ammonia Total Creatine Kinase C-Reactive Protein Total Protein Albumin Lipase Arterial Blood Glucose Arterial Blood Ionized Calcium Urine WBC (Auto) U Epithel Cells (Auto) Acetaminophen Complement C3 Complement C4 Syphilis IgG Antibody HSV I Specific Ab Crossmatch See Detail 07/27/20 07/28/20 07/28/20 15:32 00:32 05:09 WBC RBC Hgb 9.5 L D Hct 28.6 L D MCV MCH MCHC RDW Plt Count Lymph % (Auto) [place] % (Auto) Lymph # (Auto) [place] # (Auto) Eos # (Auto) Seg Neutrophils % Seg Neuts % (Manual) Lymphocytes % (Manual) Monocytes % (Manual) Nucleated RBC % Seg Neutrophils # Seg Neutrophils # Man Lymphocytes # (Manual) Monocytes # (Manual) Eosinophils # (Manual) PT INR ABG pH POC ABG pCO2 POC ABG pO2 67.3 L ABG pO2 ABG Base Excess ABG Hemoglobin 10.5 L ABG Oxyhemoglobin 90.9 L ABG Sodium ABG Potassium ABG Chloride 117.0 H ABG Glucose 105 H VBG pH Oxyhemoglobin Carboxyhemoglobin Sodium Potassium Chloride Carbon Dioxide BUN Creatinine Glucose POC Glucose 113 H Lactic Acid Calcium Phosphorus Magnesium Total Bilirubin Direct Bilirubin AST ALT Alkaline Phosphatase Ammonia Total Creatine Kinase C-Reactive Protein Total Protein Albumin Lipase Arterial Blood Glucose 105 H Arterial Blood Ionized Calcium Urine WBC (Auto) U Epithel Cells (Auto) Acetaminophen Complement C3 Complement C4 Syphilis IgG Antibody HSV I Specific Ab Crossmatch 07/28/20 07/28/20 07/28/20 09:42 11:50 16:43 WBC RBC Hgb Hct MCV MCH MCHC RDW Plt Count Lymph % (Auto) [place] % (Auto) Lymph # (Auto) [place] # (Auto) Eos # (Auto) Seg Neutrophils % Seg Neuts % (Manual) Lymphocytes % (Manual) Monocytes % (Manual) Nucleated RBC % Seg Neutrophils # Seg Neutrophils # Man Lymphocytes # (Manual) Monocytes # (Manual) Eosinophils # (Manual) PT INR ABG pH POC ABG pCO2 POC ABG pO2 ABG pO2 ABG Base Excess ABG Hemoglobin ABG Oxyhemoglobin ABG Sodium ABG Potassium ABG Chloride ABG Glucose VBG pH Oxyhemoglobin Carboxyhemoglobin Sodium 146 H Potassium Chloride 116.7 H Carbon Dioxide 20 L BUN 51 H Creatinine 1.6 H D Glucose 107 H POC Glucose 109 H 114 H Lactic Acid Calcium 8.2 L Phosphorus Magnesium Total Bilirubin 9.70 H Direct Bilirubin AST 195 H ALT 99 H Alkaline Phosphatase 422 H Ammonia Total Creatine Kinase C-Reactive Protein Total Protein 5.2 L D Albumin 2.1 L Lipase Arterial Blood Glucose Arterial Blood Ionized Calcium Urine WBC (Auto) U Epithel Cells (Auto) Acetaminophen Complement C3 Complement C4 Syphilis IgG Antibody HSV I Specific Ab Crossmatch 07/28/20 07/28/20 07/29/20 21:29 23:48 02:10 WBC RBC Hgb Hct MCV MCH MCHC RDW Plt Count Lymph % (Auto) [place] % (Auto) Lymph # (Auto) [place] # (Auto) Eos # (Auto) Seg Neutrophils % Seg Neuts % (Manual) Lymphocytes % (Manual) Monocytes % (Manual) Nucleated RBC % Seg Neutrophils # Seg Neutrophils # Man Lymphocytes # (Manual) Monocytes # (Manual) Eosinophils # (Manual) PT INR ABG pH POC ABG pCO2 POC ABG pO2 ABG pO2 ABG Base Excess ABG Hemoglobin ABG Oxyhemoglobin ABG Sodium ABG Potassium ABG Chloride ABG Glucose VBG pH Oxyhemoglobin Carboxyhemoglobin Sodium Potassium Chloride Carbon Dioxide BUN Creatinine Glucose POC Glucose 122 H 117 H 136 H Lactic Acid Calcium Phosphorus Magnesium Total Bilirubin Direct Bilirubin AST ALT Alkaline Phosphatase Ammonia Total Creatine Kinase C-Reactive Protein Total Protein Albumin Lipase Arterial Blood Glucose Arterial Blood Ionized Calcium Urine WBC (Auto) U Epithel Cells (Auto) Acetaminophen Complement C3 Complement C4 Syphilis IgG Antibody HSV I Specific Ab Crossmatch 07/29/20 07/29/20 07/29/20 05:15 12:19 13:34 WBC RBC Hgb Hct MCV MCH MCHC RDW Plt Count Lymph % (Auto) [place] % (Auto) Lymph # (Auto) [place] # (Auto) Eos # (Auto) Seg Neutrophils % Seg Neuts % (Manual) Lymphocytes % (Manual) Monocytes % (Manual) Nucleated RBC % Seg Neutrophils # Seg Neutrophils # Man Lymphocytes # (Manual) Monocytes # (Manual) Eosinophils # (Manual) PT INR ABG pH POC ABG pCO2 POC ABG pO2 ABG pO2 ABG Base Excess ABG Hemoglobin ABG Oxyhemoglobin ABG Sodium ABG Potassium ABG Chloride ABG Glucose VBG pH Oxyhemoglobin Carboxyhemoglobin Sodium Potassium Chloride Carbon Dioxide BUN Creatinine Glucose POC Glucose 128 H 115 H 124 H Lactic Acid Calcium Phosphorus Magnesium Total Bilirubin Direct Bilirubin AST ALT Alkaline Phosphatase Ammonia Total Creatine Kinase C-Reactive Protein Total Protein Albumin Lipase Arterial Blood Glucose Arterial Blood Ionized Calcium Urine WBC (Auto) U Epithel Cells (Auto) Acetaminophen Complement C3 Complement C4 Syphilis IgG Antibody HSV I Specific Ab Crossmatch 07/29/20 07/29/20 07/29/20 13:42 15:00 17:04 WBC 37.2 H RBC 2.90 L Hgb 9.4 L Hct 28.2 L MCV 98 H MCH 33 H MCHC RDW 19.3 H Plt Count 55 L Lymph % (Auto) [place] % (Auto) Lymph # (Auto) [place] # (Auto) Eos # (Auto) Seg Neutrophils % Seg Neuts % (Manual) 93.0 H Lymphocytes % (Manual) 6.0 L Monocytes % (Manual) Nucleated RBC % 2.0 H Seg Neutrophils # Seg Neutrophils # Man 34.6 H Lymphocytes # (Manual) Monocytes # (Manual) Eosinophils # (Manual) PT INR ABG pH POC ABG pCO2 POC ABG pO2 ABG pO2 ABG Base Excess ABG Hemoglobin ABG Oxyhemoglobin ABG Sodium ABG Potassium ABG Chloride ABG Glucose VBG pH Oxyhemoglobin Carboxyhemoglobin Sodium 148 H Potassium Chloride 117.9 H Carbon Dioxide 21 L BUN 62 H Creatinine 1.8 H Glucose 124 H POC Glucose Lactic Acid Calcium 8.1 L Phosphorus Magnesium Total Bilirubin Direct Bilirubin AST ALT Alkaline Phosphatase Ammonia Total Creatine Kinase C-Reactive Protein Total Protein Albumin Lipase Arterial Blood Glucose Arterial Blood Ionized Calcium Urine WBC (Auto) 127.0 H U Epithel Cells (Auto) 18.0 H Acetaminophen Complement C3 Complement C4 Syphilis IgG Antibody HSV I Specific Ab Crossmatch 07/29/20 07/29/20 07/30/20 18:25 21:28 01:57 WBC RBC Hgb Hct MCV MCH MCHC RDW Plt Count Lymph % (Auto) [place] % (Auto) Lymph # (Auto) [place] # (Auto) Eos # (Auto) Seg Neutrophils % Seg Neuts % (Manual) Lymphocytes % (Manual) Monocytes % (Manual) Nucleated RBC % Seg Neutrophils # Seg Neutrophils # Man Lymphocytes # (Manual) Monocytes # (Manual) Eosinophils # (Manual) PT INR ABG pH POC ABG pCO2 POC ABG pO2 ABG pO2 ABG Base Excess ABG Hemoglobin ABG Oxyhemoglobin ABG Sodium ABG Potassium ABG Chloride ABG Glucose VBG pH Oxyhemoglobin Carboxyhemoglobin Sodium Potassium Chloride Carbon Dioxide BUN Creatinine Glucose POC Glucose 129 H 113 H 115 H Lactic Acid Calcium Phosphorus Magnesium Total Bilirubin Direct Bilirubin AST ALT Alkaline Phosphatase Ammonia Total Creatine Kinase C-Reactive Protein Total Protein Albumin Lipase Arterial Blood Glucose Arterial Blood Ionized Calcium Urine WBC (Auto) U Epithel Cells (Auto) Acetaminophen Complement C3 Complement C4 Syphilis IgG Antibody HSV I Specific Ab Crossmatch 07/30/20 07/30/20 07/30/20 05:36 05:46 11:40 WBC RBC Hgb Hct MCV MCH MCHC RDW Plt Count Lymph % (Auto) [place] % (Auto) Lymph # (Auto) [place] # (Auto) Eos # (Auto) Seg Neutrophils % Seg Neuts % (Manual) Lymphocytes % (Manual) Monocytes % (Manual) Nucleated RBC % Seg Neutrophils # Seg Neutrophils # Man Lymphocytes # (Manual) Monocytes # (Manual) Eosinophils # (Manual) PT INR ABG pH POC ABG pCO2 POC ABG pO2 ABG pO2 ABG Base Excess ABG Hemoglobin ABG Oxyhemoglobin ABG Sodium ABG Potassium ABG Chloride ABG Glucose VBG pH Oxyhemoglobin Carboxyhemoglobin Sodium 149 H Potassium Chloride 118.2 H Carbon Dioxide 20 L BUN 64 H Creatinine 2.0 H Glucose 133 H POC Glucose 115 H 126 H Lactic Acid Calcium 7.7 L Phosphorus Magnesium Total Bilirubin Direct Bilirubin AST ALT Alkaline Phosphatase Ammonia Total Creatine Kinase C-Reactive Protein Total Protein Albumin Lipase Arterial Blood Glucose Arterial Blood Ionized Calcium Urine WBC (Auto) U Epithel Cells (Auto) Acetaminophen Complement C3 Complement C4 Syphilis IgG Antibody HSV I Specific Ab Crossmatch 07/30/20 07/30/20 07/31/20 18:11 21:31 01:18 WBC RBC Hgb Hct MCV MCH MCHC RDW Plt Count Lymph % (Auto) [place] % (Auto) Lymph # (Auto) [place] # (Auto) Eos # (Auto) Seg Neutrophils % Seg Neuts % (Manual) Lymphocytes % (Manual) Monocytes % (Manual) Nucleated RBC % Seg Neutrophils # Seg Neutrophils # Man Lymphocytes # (Manual) Monocytes # (Manual) Eosinophils # (Manual) PT INR ABG pH POC ABG pCO2 POC ABG pO2 ABG pO2 ABG Base Excess ABG Hemoglobin ABG Oxyhemoglobin ABG Sodium ABG Potassium ABG Chloride ABG Glucose VBG pH Oxyhemoglobin Carboxyhemoglobin Sodium Potassium Chloride Carbon Dioxide BUN Creatinine Glucose POC Glucose 138 H 140 H 133 H Lactic Acid Calcium Phosphorus Magnesium Total Bilirubin Direct Bilirubin AST ALT Alkaline Phosphatase Ammonia Total Creatine Kinase C-Reactive Protein Total Protein Albumin Lipase Arterial Blood Glucose Arterial Blood Ionized Calcium Urine WBC (Auto) U Epithel Cells (Auto) Acetaminophen Complement C3 Complement C4 Syphilis IgG Antibody HSV I Specific Ab Crossmatch 07/31/20 05:14 WBC RBC Hgb Hct MCV MCH MCHC RDW Plt Count Lymph % (Auto) [place] % (Auto) Lymph # (Auto) [place] # (Auto) Eos # (Auto) Seg Neutrophils % Seg Neuts % (Manual) Lymphocytes % (Manual) Monocytes % (Manual) Nucleated RBC % Seg Neutrophils # Seg Neutrophils # Man Lymphocytes # (Manual) Monocytes # (Manual) Eosinophils # (Manual) PT INR ABG pH POC ABG pCO2 POC ABG pO2 ABG pO2 ABG Base Excess ABG Hemoglobin ABG Oxyhemoglobin ABG Sodium ABG Potassium ABG Chloride ABG Glucose VBG pH Oxyhemoglobin Carboxyhemoglobin Sodium Potassium Chloride Carbon Dioxide BUN Creatinine Glucose POC Glucose 118 H Lactic Acid Calcium Phosphorus Magnesium Total Bilirubin Direct Bilirubin AST ALT Alkaline Phosphatase Ammonia Total Creatine Kinase C-Reactive Protein Total Protein Albumin Lipase Arterial Blood Glucose Arterial Blood Ionized Calcium Urine WBC (Auto) U Epithel Cells (Auto) Acetaminophen Complement C3 Complement C4 Syphilis IgG Antibody HSV I Specific Ab Crossmatch
[2020-07-31] MEDS: ACYCLOVIR IV SCH (10:42)
[2020-07-31] MEDS: SODIUM CHLORIDE 0.9% IV SCH (10:42)
--- NOTE | 2020-07-31 14:38 | Progress Note ---
Assessment and Plan 29 yo female with hepatic/renal failure and s/p cardiac arrest w/ anoxic brain injury Recs - Monitor ammonia level (reordered today; last level was 96); metabolic derangements w/ transaminitis, hypernatremia noted; Recommend eeg to confirm no evidence of status epielpticus; MR Brain official report pending. Sanya Brown MD Neurology Subjective Date of service: 07/31/20 Principal diagnosis: Acute Liver Injury Interval history: 29 yo female s/p cardiac arrest who continues to remain encephalopathic. Per RN, no clinical seizure activity. Per RT, no breaths over the vent. Objective - Exam Narrative Exam: Gen: nad, well-nourished, intubated; Head: normocephalic; Eyes: no gaze deviation; no ptosis appreciated; ENT: +ETT; CVS: warm and well-perfused; Pulm: no respiratory distress; GI: non-distended, protuberant; Ext: no cyanosis at distal extremities; Skin: no acute rash at distal extremities; Heme: no bruising or ecchymosis at distal extremities; Neuro: comatose, intubated, no spont breaths over the vent; CN 2 - 6 mm noneactive pupils, CN 3, 4, 6 - oculocephalic absent, CN 5/7 - corneal reflex absent, CN 9/10 - no cough reflex, CN 11/12 - pt cannot cooperate secondary to LOC; Motor/Sensory - 0/5 in all exts to sternal rub or to tactile stimuli at each extremity; Cerebellar/Gait - pt cannot cooperate secondary to LOC; NIHSS>32; - Vital Sign Vital Signs - 12hr 07/31/20 07/31/20 07/31/20 02:45 03:00 03:09 Temperature 97.2 F L Pulse Rate 60 61 Pulse Rate [ From Monitor] Respiratory 17 18 Rate Blood Pressure 112/67 114/67 O2 Sat by Pulse 94 94 Oximetry 07/31/20 07/31/20 07/31/20 03:15 03:30 03:45 Temperature Pulse Rate 62 63 64 Pulse Rate [ From Monitor] Respiratory 18 18 19 Rate Blood Pressure 114/66 110/62 112/61 O2 Sat by Pulse 94 94 94 Oximetry 07/31/20 07/31/20 07/31/20 04:00 04:15 04:30 Temperature Pulse Rate 64 65 65 Pulse Rate [ 67 From Monitor] Respiratory 19 17 18 Rate Blood Pressure 112/58 112/58 112/56 O2 Sat by Pulse 93 93 94 Oximetry 07/31/20 07/31/20 07/31/20 04:45 05:00 05:15 Temperature Pulse Rate 67 67 70 Pulse Rate [ From Monitor] Respiratory 18 19 19 Rate Blood Pressure 112/57 112/56 115/66 O2 Sat by Pulse 93 93 94 Oximetry 07/31/20 07/31/20 07/31/20 05:30 05:45 06:00 Temperature Pulse Rate 68 69 70 Pulse Rate [ From Monitor] Respiratory 18 18 18 Rate Blood Pressure 111/56 113/56 113/56 O2 Sat by Pulse 93 94 92 Oximetry 07/31/20 07/31/20 07/31/20 06:15 06:30 06:45 Temperature Pulse Rate 71 71 72 Pulse Rate [ From Monitor] Respiratory 17 18 18 Rate Blood Pressure 115/57 111/56 113/59 O2 Sat by Pulse 93 92 94 Oximetry 07/31/20 07/31/20 07/31/20 07:00 07:15 07:30 Temperature Pulse Rate 73 74 74 Pulse Rate [ From Monitor] Respiratory 18 18 18 Rate Blood Pressure 115/56 114/57 115/57 O2 Sat by Pulse 93 92 93 Oximetry 07/31/20 07/31/20 07/31/20 07:40 07:45 08:00 Temperature 98 F Pulse Rate 75 75 76 Pulse Rate [ 71 From Monitor] Respiratory 18 19 Rate Blood Pressure 115/57 114/57 O2 Sat by Pulse 93 92 93 Oximetry 07/31/20 07/31/20 07/31/20 08:15 08:30 08:45 Temperature Pulse Rate 76 76 81 Pulse Rate [ From Monitor] Respiratory 17 25 H 20 Rate Blood Pressure 114/56 116/53 118/61 O2 Sat by Pulse 93 93 94 Oximetry 07/31/20 07/31/20 07/31/20 09:00 09:15 09:30 Temperature Pulse Rate 77 77 77 Pulse Rate [ From Monitor] Respiratory 18 17 19 Rate Blood Pressure 115/53 117/54 115/54 O2 Sat by Pulse 93 93 93 Oximetry 07/31/20 07/31/20 07/31/20 09:45 10:00 10:15 Temperature Pulse Rate 77 77 76 Pulse Rate [ From Monitor] Respiratory 19 18 18 Rate Blood Pressure 116/57 115/58 113/56 O2 Sat by Pulse 94 94 94 Oximetry 07/31/20 07/31/20 07/31/20 10:30 10:45 11:00 Temperature Pulse Rate 75 75 75 Pulse Rate [ From Monitor] Respiratory 17 17 16 Rate Blood Pressure 114/56 117/62 114/60 O2 Sat by Pulse 94 93 93 Oximetry 07/31/20 07/31/20 07/31/20 11:15 11:30 11:45 Temperature Pulse Rate 75 77 75 Pulse Rate [ From Monitor] Respiratory 18 17 18 Rate Blood Pressure 114/58 116/61 113/54 O2 Sat by Pulse 91 92 90 Oximetry 07/31/20 07/31/20 07/31/20 11:47 12:00 12:15 Temperature 97.9 F Pulse Rate 74 74 73 Pulse Rate [ 74 From Monitor] Respiratory 17 18 Rate Blood Pressure 113/54 115/54 114/56 O2 Sat by Pulse 91 90 91 Oximetry 07/31/20 07/31/20 07/31/20 12:30 12:45 13:00 Temperature Pulse Rate 74 74 73 Pulse Rate [ From Monitor] Respiratory 18 17 14 Rate Blood Pressure 113/56 113/59 116/57 O2 Sat by Pulse 91 92 91 Oximetry 07/31/20 14:32 Temperature Pulse Rate 67 Pulse Rate [ From Monitor] Respiratory Rate Blood Pressure O2 Sat by Pulse 91 Oximetry - Laboratory Findings CBC and BMP: 07/29/20 17:04 07/30/20 05:46 Abnormal Lab Findings: Abnormal Labs 07/16/20 07/16/20 07/16/20 03:54 20:47 20:47 WBC 33.9 H RBC Hgb Hct MCV 107 H MCH 34 H MCHC RDW 22.0 H Plt Count Lymph % (Auto) P[place]y % (Auto) Lymph # (Auto) [place]y # (Auto) Eos # (Auto) Seg Neutrophils % Seg Neuts % (Manual) 89.0 H Lymphocytes % (Manual) 2.0 L Monocytes % (Manual) Nucleated RBC % 1.0 H Seg Neutrophils # Seg Neutrophils # Man 30.2 H Lymphocytes # (Manual) 0.7 L Monocytes # (Manual) 1.4 H Eosinophils # (Manual) PT INR ABG pH POC ABG pCO2 POC ABG pO2 ABG pO2 ABG Base Excess ABG Hemoglobin ABG Oxyhemoglobin ABG Sodium ABG Potassium ABG Chloride ABG Glucose VBG pH Oxyhemoglobin Carboxyhemoglobin Sodium Potassium 5.1 H Chloride Carbon Dioxide 9 L* BUN 20 H Creatinine 1.9 H Glucose 30 L* POC Glucose Lactic Acid Calcium Phosphorus Magnesium Total Bilirubin 5.40 H Direct Bilirubin AST 87121 H ALT 1829 H Alkaline Phosphatase 141 H Ammonia Total Creatine Kinase C-Reactive Protein Total Protein Albumin Lipase 9 L Arterial Blood Glucose Arterial Blood Ionized Calcium Urine WBC (Auto) 57.0 H U Epithel Cells (Auto) 23.0 H Acetaminophen Complement C3 Complement C4 Syphilis IgG Antibody HSV I Specific Ab Crossmatch 07/16/20 07/16/20 07/16/20 20:47 22:43 23:06 WBC RBC Hgb Hct MCV MCH MCHC RDW Plt Count Lymph % (Auto) [place] % (Auto) Lymph # (Auto) [place] # (Auto) Eos # (Auto) Seg Neutrophils % Seg Neuts % (Manual) Lymphocytes % (Manual) Monocytes % (Manual) Nucleated RBC % Seg Neutrophils # Seg Neutrophils # Man Lymphocytes # (Manual) Monocytes # (Manual) Eosinophils # (Manual) PT INR ABG pH POC ABG pCO2 POC ABG pO2 ABG pO2 ABG Base Excess ABG Hemoglobin ABG Oxyhemoglobin ABG Sodium ABG Potassium ABG Chloride ABG Glucose VBG pH Oxyhemoglobin Carboxyhemoglobin Sodium Potassium Chloride Carbon Dioxide BUN Creatinine Glucose POC Glucose 140 H Lactic Acid 14.90 H* Calcium Phosphorus Magnesium Total Bilirubin Direct Bilirubin AST ALT Alkaline Phosphatase Ammonia Total Creatine Kinase 230 H C-Reactive Protein Total Protein Albumin Lipase Arterial Blood Glucose Arterial Blood Ionized Calcium Urine WBC (Auto) U Epithel Cells (Auto) Acetaminophen Complement C3 Complement C4 Syphilis IgG Antibody HSV I Specific Ab Crossmatch 07/17/20 07/17/20 07/17/20 01:46 01:46 04:55 WBC RBC Hgb Hct MCV MCH MCHC RDW Plt Count Lymph % (Auto) [place] % (Auto) Lymph # (Auto) [place] # (Auto) Eos # (Auto) Seg Neutrophils % Seg Neuts % (Manual) Lymphocytes % (Manual) Monocytes % (Manual) Nucleated RBC % Seg Neutrophils # Seg Neutrophils # Man Lymphocytes # (Manual) Monocytes # (Manual) Eosinophils # (Manual) PT INR ABG pH POC ABG pCO2 POC ABG pO2 ABG pO2 ABG Base Excess ABG Hemoglobin ABG Oxyhemoglobin ABG Sodium ABG Potassium ABG Chloride ABG Glucose VBG pH 7.085 L* Oxyhemoglobin Carboxyhemoglobin Sodium Potassium Chloride Carbon Dioxide BUN Creatinine Glucose POC Glucose Lactic Acid 13.20 H* 12.00 H* Calcium Phosphorus Magnesium Total Bilirubin Direct Bilirubin AST ALT Alkaline Phosphatase Ammonia Total Creatine Kinase C-Reactive Protein Total Protein Albumin Lipase Arterial Blood Glucose Arterial Blood Ionized Calcium Urine WBC (Auto) U Epithel Cells (Auto) Acetaminophen Complement C3 Complement C4 Syphilis IgG Antibody HSV I Specific Ab Crossmatch 07/17/20 07/17/20 07/17/20 06:05 07:33 07:48 WBC RBC Hgb Hct MCV MCH MCHC RDW Plt Count Lymph % (Auto) [place] % (Auto) Lymph # (Auto) [place] # (Auto) Eos # (Auto) Seg Neutrophils % Seg Neuts % (Manual) Lymphocytes % (Manual) Monocytes % (Manual) Nucleated RBC % Seg Neutrophils # Seg Neutrophils # Man Lymphocytes # (Manual) Monocytes # (Manual) Eosinophils # (Manual) PT INR ABG pH POC ABG pCO2 POC ABG pO2 ABG pO2 ABG Base Excess ABG Hemoglobin ABG Oxyhemoglobin ABG Sodium ABG Potassium ABG Chloride ABG Glucose VBG pH Oxyhemoglobin Carboxyhemoglobin Sodium Potassium Chloride Carbon Dioxide BUN Creatinine Glucose POC Glucose 59 L 125 H Lactic Acid 12.00 H* Calcium Phosphorus Magnesium Total Bilirubin Direct Bilirubin AST ALT Alkaline Phosphatase Ammonia Total Creatine Kinase C-Reactive Protein Total Protein Albumin Lipase Arterial Blood Glucose Arterial Blood Ionized Calcium Urine WBC (Auto) U Epithel Cells (Auto) Acetaminophen Complement C3 Complement C4 Syphilis IgG Antibody HSV I Specific Ab Crossmatch 07/17/20 07/17/20 07/17/20 09:23 09:23 09:24 WBC RBC Hgb Hct MCV MCH MCHC RDW Plt Count Lymph % (Auto) [place] % (Auto) Lymph # (Auto) [place] # (Auto) Eos # (Auto) Seg Neutrophils % Seg Neuts % (Manual) Lymphocytes % (Manual) Monocytes % (Manual) Nucleated RBC % Seg Neutrophils # Seg Neutrophils # Man Lymphocytes # (Manual) Monocytes # (Manual) Eosinophils # (Manual) PT INR ABG pH POC ABG pCO2 POC ABG pO2 ABG pO2 ABG Base Excess ABG Hemoglobin ABG Oxyhemoglobin ABG Sodium ABG Potassium ABG Chloride ABG Glucose VBG pH Oxyhemoglobin Carboxyhemoglobin Sodium Potassium 5.7 H Chloride 107.6 H Carbon Dioxide 13 L BUN 24 H Creatinine 2.1 H Glucose 121 H POC Glucose Lactic Acid Calcium 6.0 L D Phosphorus Magnesium Total Bilirubin 3.80 H Direct Bilirubin AST 8355 H ALT 1522 H Alkaline Phosphatase Ammonia Total Creatine Kinase 332 H C-Reactive Protein Total Protein 4.7 L D Albumin 2.8 L Lipase Arterial Blood Glucose Arterial Blood Ionized Calcium Urine WBC (Auto) U Epithel Cells (Auto) Acetaminophen 5.0 L Complement C3 Complement C4 Syphilis IgG Antibody HSV I Specific Ab Crossmatch 07/17/20 07/17/20 07/17/20 11:08 11:08 11:08 WBC RBC Hgb Hct MCV MCH MCHC RDW Plt Count Lymph % (Auto) [place] % (Auto) Lymph # (Auto) [place] # (Auto) Eos # (Auto) Seg Neutrophils % Seg Neuts % (Manual) Lymphocytes % (Manual) Monocytes % (Manual) Nucleated RBC % Seg Neutrophils # Seg Neutrophils # Man Lymphocytes # (Manual) Monocytes # (Manual) Eosinophils # (Manual) PT 60.1 H INR > 17.67 H* ABG pH POC ABG pCO2 POC ABG pO2 ABG pO2 ABG Base Excess ABG Hemoglobin ABG Oxyhemoglobin ABG Sodium ABG Potassium ABG Chloride ABG Glucose VBG pH Oxyhemoglobin Carboxyhemoglobin Sodium Potassium Chloride Carbon Dioxide BUN Creatinine Glucose POC Glucose Lactic Acid 9.80 H* Calcium Phosphorus Magnesium Total Bilirubin Direct Bilirubin AST ALT Alkaline Phosphatase Ammonia Total Creatine Kinase C-Reactive Protein Total Protein Albumin Lipase Arterial Blood Glucose Arterial Blood Ionized Calcium Urine WBC (Auto) U Epithel Cells (Auto) Acetaminophen Complement C3 Complement C4 Syphilis IgG Antibody Reactive A HSV I Specific Ab Crossmatch 07/17/20 07/17/20 07/17/20 11:08 14:34 14:34 WBC 27.2 H RBC 2.66 L Hgb 9.1 L D Hct 27.8 L D MCV 104 H MCH 34 H MCHC RDW 22.6 H Plt Count Lymph % (Auto) [place] % (Auto) Lymph # (Auto) [place] # (Auto) Eos # (Auto) Seg Neutrophils % Seg Neuts % (Manual) Lymphocytes % (Manual) Monocytes % (Manual) Nucleated RBC % Seg Neutrophils # Seg Neutrophils # Man Lymphocytes # (Manual) Monocytes # (Manual) Eosinophils # (Manual) PT INR ABG pH POC ABG pCO2 POC ABG pO2 ABG pO2 ABG Base Excess ABG Hemoglobin ABG Oxyhemoglobin ABG Sodium ABG Potassium ABG Chloride ABG Glucose VBG pH Oxyhemoglobin Carboxyhemoglobin Sodium Potassium 5.4 H Chloride 107.7 H Carbon Dioxide 16 L BUN 26 H Creatinine 2.3 H Glucose 151 H POC Glucose Lactic Acid Calcium 5.8 L* Phosphorus Magnesium Total Bilirubin 3.30 H Direct Bilirubin AST 6751 H ALT 1325 H Alkaline Phosphatase Ammonia Total Creatine Kinase C-Reactive Protein Total Protein 4.4 L Albumin 2.5 L Lipase Arterial Blood Glucose Arterial Blood Ionized Calcium Urine WBC (Auto) U Epithel Cells (Auto) Acetaminophen Complement C3 Complement C4 Syphilis IgG Antibody HSV I Specific Ab 5.23 H Crossmatch 07/17/20 07/17/20 07/17/20 14:34 14:34 14:34 WBC RBC Hgb Hct MCV MCH MCHC RDW Plt Count Lymph % (Auto) [place] % (Auto) Lymph # (Auto) [place] # (Auto) Eos # (Auto) Seg Neutrophils % Seg Neuts % (Manual) Lymphocytes % (Manual) Monocytes % (Manual) Nucleated RBC % Seg Neutrophils # Seg Neutrophils # Man Lymphocytes # (Manual) Monocytes # (Manual) Eosinophils # (Manual) PT 70.6 H INR 8.29 H* ABG pH POC ABG pCO2 POC ABG pO2 ABG pO2 ABG Base Excess ABG Hemoglobin ABG Oxyhemoglobin ABG Sodium ABG Potassium ABG Chloride ABG Glucose VBG pH Oxyhemoglobin Carboxyhemoglobin Sodium Potassium Chloride Carbon Dioxide BUN Creatinine Glucose POC Glucose Lactic Acid 7.60 H* Calcium Phosphorus Magnesium Total Bilirubin Direct Bilirubin AST ALT Alkaline Phosphatase Ammonia 75.0 H Total Creatine Kinase C-Reactive Protein Total Protein Albumin Lipase Arterial Blood Glucose Arterial Blood Ionized Calcium Urine WBC (Auto) U Epithel Cells (Auto) Acetaminophen Complement C3 Complement C4 Syphilis IgG Antibody HSV I Specific Ab Crossmatch 07/17/20 07/17/20 07/18/20 16:45 16:45 04:23 WBC 22.7 H RBC 2.47 L Hgb 8.5 L Hct 25.5 L MCV 103 H MCH 35 H MCHC RDW 21.7 H Plt Count Lymph % (Auto) 5.3 L [place] % (Auto) Lymph # (Auto) [place] # (Auto) Eos # (Auto) 0.7 H Seg Neutrophils % 88.2 H Seg Neuts % (Manual) Lymphocytes % (Manual) Monocytes % (Manual) Nucleated RBC % Seg Neutrophils # 20.0 H Seg Neutrophils # Man Lymphocytes # (Manual) Monocytes # (Manual) Eosinophils # (Manual) PT INR ABG pH POC ABG pCO2 POC ABG pO2 ABG pO2 ABG Base Excess ABG Hemoglobin ABG Oxyhemoglobin ABG Sodium ABG Potassium ABG Chloride ABG Glucose VBG pH Oxyhemoglobin Carboxyhemoglobin Sodium Potassium Chloride 107.9 H Carbon Dioxide 17 L BUN 27 H Creatinine 2.5 H Glucose 144 H POC Glucose Lactic Acid 7.00 H* Calcium 6.0 L Phosphorus Magnesium Total Bilirubin 3.30 H Direct Bilirubin AST 6456 H ALT 1286 H Alkaline Phosphatase Ammonia Total Creatine Kinase C-Reactive Protein Total Protein 4.2 L Albumin 2.5 L Lipase Arterial Blood Glucose Arterial Blood Ionized Calcium Urine WBC (Auto) U Epithel Cells (Auto) Acetaminophen Complement C3 Complement C4 Syphilis IgG Antibody HSV I Specific Ab Crossmatch 07/18/20 07/18/20 07/18/20 04:23 04:23 04:23 WBC RBC Hgb Hct MCV MCH MCHC RDW Plt Count Lymph % (Auto) [place] % (Auto) Lymph # (Auto) [place] # (Auto) Eos # (Auto) Seg Neutrophils % Seg Neuts % (Manual) Lymphocytes % (Manual) Monocytes % (Manual) Nucleated RBC % Seg Neutrophils # Seg Neutrophils # Man Lymphocytes # (Manual) Monocytes # (Manual) Eosinophils # (Manual) PT 52.9 H INR 5.78 H* ABG pH POC ABG pCO2 POC ABG pO2 ABG pO2 ABG Base Excess ABG Hemoglobin ABG Oxyhemoglobin ABG Sodium ABG Potassium ABG Chloride ABG Glucose VBG pH Oxyhemoglobin Carboxyhemoglobin Sodium Potassium Chloride 110.0 H Carbon Dioxide 17 L BUN 33 H Creatinine 3.0 H Glucose 110 H POC Glucose Lactic Acid 5.40 H* Calcium 6.4 L Phosphorus Magnesium Total Bilirubin Direct Bilirubin AST ALT Alkaline Phosphatase Ammonia Total Creatine Kinase C-Reactive Protein Total Protein Albumin Lipase Arterial Blood Glucose Arterial Blood Ionized Calcium Urine WBC (Auto) U Epithel Cells (Auto) Acetaminophen Complement C3 Complement C4 Syphilis IgG Antibody HSV I Specific Ab Crossmatch 07/18/20 07/18/20 07/18/20 04:23 07:25 Unknown WBC RBC Hgb Hct MCV MCH MCHC RDW Plt Count Lymph % (Auto) [place] % (Auto) Lymph # (Auto) [place] # (Auto) Eos # (Auto) Seg Neutrophils % Seg Neuts % (Manual) Lymphocytes % (Manual) Monocytes % (Manual) Nucleated RBC % Seg Neutrophils # Seg Neutrophils # Man Lymphocytes # (Manual) Monocytes # (Manual) Eosinophils # (Manual) PT INR ABG pH POC ABG pCO2 POC ABG pO2 ABG pO2 ABG Base Excess ABG Hemoglobin ABG Oxyhemoglobin ABG Sodium ABG Potassium ABG Chloride ABG Glucose VBG pH Oxyhemoglobin Carboxyhemoglobin Sodium Potassium Chloride Carbon Dioxide BUN Creatinine Glucose POC Glucose Lactic Acid 5.50 H* 4.80 H* Calcium Phosphorus Magnesium Total Bilirubin Direct Bilirubin AST ALT Alkaline Phosphatase Ammonia 96.0 H Total Creatine Kinase C-Reactive Protein Total Protein Albumin Lipase Arterial Blood Glucose Arterial Blood Ionized Calcium Urine WBC (Auto) U Epithel Cells (Auto) Acetaminophen Complement C3 Complement C4 Syphilis IgG Antibody HSV I Specific Ab Crossmatch 07/18/20 07/18/20 07/19/20 Unknown Unknown 02:47 WBC RBC Hgb Hct MCV MCH MCHC RDW Plt Count Lymph % (Auto) [place] % (Auto) Lymph # (Auto) [place] # (Auto) Eos # (Auto) Seg Neutrophils % Seg Neuts % (Manual) Lymphocytes % (Manual) Monocytes % (Manual) Nucleated RBC % Seg Neutrophils # Seg Neutrophils # Man Lymphocytes # (Manual) Monocytes # (Manual) Eosinophils # (Manual) PT 37.3 H INR 3.73 H ABG pH POC ABG pCO2 21.1 L POC ABG pO2 61.7 L ABG pO2 ABG Base Excess ABG Hemoglobin 8.5 L ABG Oxyhemoglobin 88.1 L ABG Sodium ABG Potassium ABG Chloride 119.0 H ABG Glucose VBG pH Oxyhemoglobin Carboxyhemoglobin Sodium Potassium Chloride Carbon Dioxide BUN Creatinine Glucose POC Glucose Lactic Acid Calcium Phosphorus Magnesium Total Bilirubin 3.70 H Direct Bilirubin 3.0 H AST 2093 H ALT 822 H Alkaline Phosphatase Ammonia Total Creatine Kinase C-Reactive Protein Total Protein 4.0 L Albumin 2.5 L Lipase Arterial Blood Glucose Arterial Blood Ionized Calcium 4.0 L Urine WBC (Auto) U Epithel Cells (Auto) Acetaminophen Complement C3 Complement C4 Syphilis IgG Antibody HSV I Specific Ab Crossmatch 07/19/20 07/19/20 07/19/20 03:01 03:01 03:01 WBC 19.4 H RBC 2.50 L Hgb 8.5 L Hct 26.1 L MCV 104 H MCH 34 H MCHC RDW 22.3 H Plt Count Lymph % (Auto) 3.7 L [place] % (Auto) Lymph # (Auto) 0.7 L [place] # (Auto) 0.9 H Eos # (Auto) Seg Neutrophils % Seg Neuts % (Manual) Lymphocytes % (Manual) Monocytes % (Manual) Nucleated RBC % Seg Neutrophils # 17.7 H Seg Neutrophils # Man Lymphocytes # (Manual) Monocytes # (Manual) Eosinophils # (Manual) PT 35.0 H INR 3.45 H ABG pH POC ABG pCO2 POC ABG pO2 ABG pO2 ABG Base Excess ABG Hemoglobin ABG Oxyhemoglobin ABG Sodium ABG Potassium ABG Chloride ABG Glucose VBG pH Oxyhemoglobin Carboxyhemoglobin Sodium Potassium Chloride Carbon Dioxide BUN Creatinine Glucose POC Glucose Lactic Acid 5.90 H* Calcium Phosphorus Magnesium Total Bilirubin Direct Bilirubin AST ALT Alkaline Phosphatase Ammonia Total Creatine Kinase C-Reactive Protein Total Protein Albumin Lipase Arterial Blood Glucose Arterial Blood Ionized Calcium Urine WBC (Auto) U Epithel Cells (Auto) Acetaminophen Complement C3 Complement C4 Syphilis IgG Antibody HSV I Specific Ab Crossmatch 07/19/20 07/19/20 07/19/20 03:01 03:01 05:25 WBC RBC Hgb Hct MCV MCH MCHC RDW Plt Count Lymph % (Auto) [place] % (Auto) Lymph # (Auto) [place] # (Auto) Eos # (Auto) Seg Neutrophils % Seg Neuts % (Manual) Lymphocytes % (Manual) Monocytes % (Manual) Nucleated RBC % Seg Neutrophils # Seg Neutrophils # Man Lymphocytes # (Manual) Monocytes # (Manual) Eosinophils # (Manual) PT INR ABG pH POC ABG pCO2 POC ABG pO2 ABG pO2 ABG Base Excess ABG Hemoglobin ABG Oxyhemoglobin ABG Sodium ABG Potassium ABG Chloride ABG Glucose VBG pH Oxyhemoglobin Carboxyhemoglobin Sodium 149 H Potassium Chloride 116.6 H Carbon Dioxide 14 L BUN 48 H Creatinine 2.5 H Glucose POC Glucose 43 L Lactic Acid Calcium 7.4 L D Phosphorus Magnesium Total Bilirubin 3.70 H Direct Bilirubin AST 1730 H ALT 751 H Alkaline Phosphatase Ammonia 126.0 H Total Creatine Kinase C-Reactive Protein Total Protein 4.3 L Albumin 2.4 L Lipase Arterial Blood Glucose Arterial Blood Ionized Calcium Urine WBC (Auto) U Epithel Cells (Auto) Acetaminophen Complement C3 Complement C4 Syphilis IgG Antibody HSV I Specific Ab Crossmatch 07/19/20 07/19/20 07/19/20 05:41 05:41 05:41 WBC 15.9 H RBC 1.80 L Hgb 6.2 L Hct 19.7 L* D MCV 109 H MCH 35 H MCHC RDW 22.7 H Plt Count 99 L Lymph % (Auto) 9.7 L [place] % (Auto) 8.3 H Lymph # (Auto) [place] # (Auto) 1.3 H Eos # (Auto) Seg Neutrophils % 81.2 H Seg Neuts % (Manual) 85.0 H Lymphocytes % (Manual) 12.0 L Monocytes % (Manual) Nucleated RBC % Seg Neutrophils # 12.9 H Seg Neutrophils # Man 13.5 H Lymphocytes # (Manual) Monocytes # (Manual) Eosinophils # (Manual) PT 51.8 H INR 5.63 H* ABG pH POC ABG pCO2 POC ABG pO2 ABG pO2 ABG Base Excess ABG Hemoglobin ABG Oxyhemoglobin ABG Sodium ABG Potassium ABG Chloride ABG Glucose VBG pH Oxyhemoglobin Carboxyhemoglobin Sodium 150 H Potassium Chloride 117.6 H Carbon Dioxide 10 L BUN 50 H Creatinine 2.8 H Glucose 308 H POC Glucose Lactic Acid Calcium 6.8 L Phosphorus Magnesium Total Bilirubin 2.20 H Direct Bilirubin AST 1224 H ALT 484 H Alkaline Phosphatase Ammonia Total Creatine Kinase C-Reactive Protein Total Protein 2.8 L D Albumin 1.6 L Lipase Arterial Blood Glucose Arterial Blood Ionized Calcium Urine WBC (Auto) U Epithel Cells (Auto) Acetaminophen Complement C3 Complement C4 Syphilis IgG Antibody HSV I Specific Ab Crossmatch 07/19/20 07/19/20 07/19/20 05:41 05:41 05:53 WBC RBC Hgb Hct MCV MCH MCHC RDW Plt Count Lymph % (Auto) [place] % (Auto) Lymph # (Auto) [place] # (Auto) Eos # (Auto) Seg Neutrophils % Seg Neuts % (Manual) Lymphocytes % (Manual) Monocytes % (Manual) Nucleated RBC % Seg Neutrophils # Seg Neutrophils # Man Lymphocytes # (Manual) Monocytes # (Manual) Eosinophils # (Manual) PT INR ABG pH POC ABG pCO2 POC ABG pO2 ABG pO2 ABG Base Excess ABG Hemoglobin ABG Oxyhemoglobin ABG Sodium ABG Potassium ABG Chloride ABG Glucose VBG pH Oxyhemoglobin Carboxyhemoglobin Sodium Potassium Chloride Carbon Dioxide BUN Creatinine Glucose POC Glucose 186 H Lactic Acid 12.00 H* Calcium Phosphorus Magnesium Total Bilirubin Direct Bilirubin AST ALT Alkaline Phosphatase Ammonia 96.0 H Total Creatine Kinase C-Reactive Protein Total Protein Albumin Lipase Arterial Blood Glucose Arterial Blood Ionized Calcium Urine WBC (Auto) U Epithel Cells (Auto) Acetaminophen Complement C3 Complement C4 Syphilis IgG Antibody HSV I Specific Ab Crossmatch 07/19/20 07/19/20 07/19/20 06:14 07:35 07:35 WBC RBC Hgb Hct MCV MCH MCHC RDW Plt Count Lymph % (Auto) [place] % (Auto) Lymph # (Auto) [place] # (Auto) Eos # (Auto) Seg Neutrophils % Seg Neuts % (Manual) Lymphocytes % (Manual) Monocytes % (Manual) Nucleated RBC % Seg Neutrophils # Seg Neutrophils # Man Lymphocytes # (Manual) Monocytes # (Manual) Eosinophils # (Manual) PT INR ABG pH 6.904 L POC ABG pCO2 50.8 H POC ABG pO2 140.1 H ABG pO2 ABG Base Excess ABG Hemoglobin 7.9 L ABG Oxyhemoglobin ABG Sodium ABG Potassium ABG Chloride 120.0 H ABG Glucose 220 H VBG pH Oxyhemoglobin Carboxyhemoglobin 1.7 H Sodium Potassium Chloride Carbon Dioxide BUN Creatinine Glucose POC Glucose Lactic Acid 8.50 H* Calcium Phosphorus Magnesium Total Bilirubin Direct Bilirubin AST ALT Alkaline Phosphatase Ammonia Total Creatine Kinase C-Reactive Protein Total Protein Albumin Lipase Arterial Blood Glucose 220 H Arterial Blood Ionized Calcium 4.1 L Urine WBC (Auto) U Epithel Cells (Auto) Acetaminophen Complement C3 Complement C4 Syphilis IgG Antibody HSV I Specific Ab Crossmatch See Detail 07/19/20 07/19/20 07/19/20 12:45 22:54 Unknown WBC 26.7 H RBC 2.68 L Hgb 9.0 L Hct 26.8 L D MCV 100 H MCH 34 H MCHC RDW 20.2 H Plt Count 104 L Lymph % (Auto) [place] % (Auto) Lymph # (Auto) [place] # (Auto) Eos # (Auto) Seg Neutrophils % Seg Neuts % (Manual) Lymphocytes % (Manual) 6.0 L Monocytes % (Manual) 8.0 H Nucleated RBC % Seg Neutrophils # Seg Neutrophils # Man 17.6 H Lymphocytes # (Manual) Monocytes # (Manual) 2.1 H Eosinophils # (Manual) PT INR ABG pH POC ABG pCO2 POC ABG pO2 ABG pO2 ABG Base Excess ABG Hemoglobin ABG Oxyhemoglobin ABG Sodium ABG Potassium ABG Chloride ABG Glucose VBG pH Oxyhemoglobin Carboxyhemoglobin Sodium Potassium Chloride Carbon Dioxide BUN Creatinine Glucose POC Glucose 121 H Lactic Acid 6.20 H* Calcium Phosphorus Magnesium Total Bilirubin Direct Bilirubin AST ALT Alkaline Phosphatase Ammonia Total Creatine Kinase C-Reactive Protein Total Protein Albumin Lipase Arterial Blood Glucose Arterial Blood Ionized Calcium Urine WBC (Auto) U Epithel Cells (Auto) Acetaminophen Complement C3 Complement C4 Syphilis IgG Antibody HSV I Specific Ab Crossmatch 07/19/20 07/19/20 07/19/20 Unknown Unknown Unknown WBC RBC Hgb Hct MCV MCH MCHC RDW Plt Count Lymph % (Auto) [place] % (Auto) Lymph # (Auto) [place] # (Auto) Eos # (Auto) Seg Neutrophils % Seg Neuts % (Manual) Lymphocytes % (Manual) Monocytes % (Manual) Nucleated RBC % Seg Neutrophils # Seg Neutrophils # Man Lymphocytes # (Manual) Monocytes # (Manual) Eosinophils # (Manual) PT 33.4 H INR 3.25 H ABG pH POC ABG pCO2 POC ABG pO2 ABG pO2 ABG Base Excess ABG Hemoglobin ABG Oxyhemoglobin ABG Sodium ABG Potassium ABG Chloride ABG Glucose VBG pH Oxyhemoglobin Carboxyhemoglobin Sodium 148 H Potassium 2.6 L* D Chloride 117.3 H Carbon Dioxide 18 L D BUN 48 H Creatinine 2.4 H Glucose 207 H POC Glucose Lactic Acid 3.90 H* Calcium 6.5 L Phosphorus Magnesium Total Bilirubin 3.80 H Direct Bilirubin AST 1228 H ALT 516 H Alkaline Phosphatase Ammonia Total Creatine Kinase C-Reactive Protein Total Protein 3.6 L D Albumin 1.9 L Lipase Arterial Blood Glucose Arterial Blood Ionized Calcium Urine WBC (Auto) U Epithel Cells (Auto) Acetaminophen Complement C3 Complement C4 Syphilis IgG Antibody HSV I Specific Ab Crossmatch 07/20/20 07/20/20 07/20/20 02:41 05:04 06:39 WBC RBC Hgb Hct MCV MCH MCHC RDW Plt Count Lymph % (Auto) [place] % (Auto) Lymph # (Auto) [place] # (Auto) Eos # (Auto) Seg Neutrophils % Seg Neuts % (Manual) Lymphocytes % (Manual) Monocytes % (Manual) Nucleated RBC % Seg Neutrophils # Seg Neutrophils # Man Lymphocytes # (Manual) Monocytes # (Manual) Eosinophils # (Manual) PT INR ABG pH POC ABG pCO2 POC ABG pO2 64.7 L ABG pO2 ABG Base Excess ABG Hemoglobin 8.8 L ABG Oxyhemoglobin 91.0 L ABG Sodium ABG Potassium 2.6 L ABG Chloride 116.0 H ABG Glucose 143 H VBG pH Oxyhemoglobin Carboxyhemoglobin 2.0 H Sodium Potassium Chloride Carbon Dioxide BUN Creatinine Glucose POC Glucose 141 H 123 H Lactic Acid Calcium Phosphorus Magnesium Total Bilirubin Direct Bilirubin AST ALT Alkaline Phosphatase Ammonia Total Creatine Kinase C-Reactive Protein Total Protein Albumin Lipase Arterial Blood Glucose 143 H Arterial Blood Ionized Calcium 3.9 L Urine WBC (Auto) U Epithel Cells (Auto) Acetaminophen Complement C3 Complement C4 Syphilis IgG Antibody HSV I Specific Ab Crossmatch 07/20/20 07/20/20 07/20/20 10:42 11:07 11:07 WBC 27.7 H RBC 2.50 L Hgb 8.4 L Hct 24.4 L MCV 98 H MCH 34 H MCHC 35 H RDW 19.8 H Plt Count 78 L Lymph % (Auto) [place] % (Auto) Lymph # (Auto) [place] # (Auto) Eos # (Auto) Seg Neutrophils % Seg Neuts % (Manual) Lymphocytes % (Manual) Monocytes % (Manual) Nucleated RBC % Seg Neutrophils # Seg Neutrophils # Man Lymphocytes # (Manual) Monocytes # (Manual) Eosinophils # (Manual) PT INR ABG pH POC ABG pCO2 POC ABG pO2 113.1 H ABG pO2 ABG Base Excess ABG Hemoglobin 8.8 L ABG Oxyhemoglobin ABG Sodium ABG Potassium 2.9 L ABG Chloride 114.0 H ABG Glucose 135 H VBG pH Oxyhemoglobin Carboxyhemoglobin 1.9 H Sodium 147 H Potassium Chloride 114.2 H Carbon Dioxide BUN 52 H Creatinine 1.8 H Glucose 143 H POC Glucose Lactic Acid Calcium 6.5 L Phosphorus Magnesium Total Bilirubin Direct Bilirubin AST ALT Alkaline Phosphatase Ammonia Total Creatine Kinase C-Reactive Protein Total Protein Albumin Lipase Arterial Blood Glucose 135 H Arterial Blood Ionized Calcium 3.8 L Urine WBC (Auto) U Epithel Cells (Auto) Acetaminophen Complement C3 Complement C4 Syphilis IgG Antibody HSV I Specific Ab Crossmatch 07/20/20 07/21/20 07/21/20 15:05 00:03 02:07 WBC RBC Hgb Hct MCV MCH MCHC RDW Plt Count Lymph % (Auto) [place] % (Auto) Lymph # (Auto) [place] # (Auto) Eos # (Auto) Seg Neutrophils % Seg Neuts % (Manual) Lymphocytes % (Manual) Monocytes % (Manual) Nucleated RBC % Seg Neutrophils # Seg Neutrophils # Man Lymphocytes # (Manual) Monocytes # (Manual) Eosinophils # (Manual) PT INR ABG pH POC ABG pCO2 POC ABG pO2 ABG pO2 ABG Base Excess ABG Hemoglobin ABG Oxyhemoglobin ABG Sodium ABG Potassium ABG Chloride ABG Glucose VBG pH Oxyhemoglobin Carboxyhemoglobin Sodium 146 H Potassium 2.8 L* 3.1 L Chloride 112.1 H Carbon Dioxide BUN 54 H Creatinine 1.9 H Glucose 107 H POC Glucose 145 H Lactic Acid Calcium 6.8 L Phosphorus Magnesium 0.90 L* Total Bilirubin Direct Bilirubin AST ALT Alkaline Phosphatase Ammonia Total Creatine Kinase C-Reactive Protein Total Protein Albumin Lipase Arterial Blood Glucose Arterial Blood Ionized Calcium Urine WBC (Auto) U Epithel Cells (Auto) Acetaminophen Complement C3 Complement C4 Syphilis IgG Antibody HSV I Specific Ab Crossmatch 07/21/20 07/21/20 07/21/20 03:42 05:21 10:59 WBC RBC Hgb Hct MCV MCH MCHC RDW Plt Count Lymph % (Auto) [place] % (Auto) Lymph # (Auto) [place] # (Auto) Eos # (Auto) Seg Neutrophils % Seg Neuts % (Manual) Lymphocytes % (Manual) Monocytes % (Manual) Nucleated RBC % Seg Neutrophils # Seg Neutrophils # Man Lymphocytes # (Manual) Monocytes # (Manual) Eosinophils # (Manual) PT INR ABG pH POC ABG pCO2 POC ABG pO2 ABG pO2 98.2 H ABG Base Excess -3.8 L ABG Hemoglobin 8.7 L ABG Oxyhemoglobin ABG Sodium ABG Potassium ABG Chloride ABG Glucose VBG pH Oxyhemoglobin 94.6 L Carboxyhemoglobin Sodium Potassium Chloride Carbon Dioxide BUN Creatinine Glucose POC Glucose 150 H 161 H Lactic Acid Calcium Phosphorus Magnesium Total Bilirubin Direct Bilirubin AST ALT Alkaline Phosphatase Ammonia Total Creatine Kinase C-Reactive Protein Total Protein Albumin Lipase Arterial Blood Glucose Arterial Blood Ionized Calcium Urine WBC (Auto) U Epithel Cells (Auto) Acetaminophen Complement C3 Complement C4 Syphilis IgG Antibody HSV I Specific Ab Crossmatch 07/21/20 07/21/20 07/21/20 13:59 16:14 17:22 WBC RBC Hgb Hct MCV MCH MCHC RDW Plt Count Lymph % (Auto) [place] % (Auto) Lymph # (Auto) [place] # (Auto) Eos # (Auto) Seg Neutrophils % Seg Neuts % (Manual) Lymphocytes % (Manual) Monocytes % (Manual) Nucleated RBC % Seg Neutrophils # Seg Neutrophils # Man Lymphocytes # (Manual) Monocytes # (Manual) Eosinophils # (Manual) PT INR ABG pH POC ABG pCO2 POC ABG pO2 ABG pO2 ABG Base Excess ABG Hemoglobin ABG Oxyhemoglobin ABG Sodium ABG Potassium ABG Chloride ABG Glucose VBG pH Oxyhemoglobin Carboxyhemoglobin Sodium Potassium 3.0 L Chloride 112.5 H Carbon Dioxide 16 L D BUN 48 H Creatinine Glucose 157 H POC Glucose 164 H 171 H Lactic Acid Calcium 7.3 L Phosphorus Magnesium Total Bilirubin Direct Bilirubin AST ALT Alkaline Phosphatase Ammonia Total Creatine Kinase C-Reactive Protein Total Protein Albumin Lipase Arterial Blood Glucose Arterial Blood Ionized Calcium Urine WBC (Auto) U Epithel Cells (Auto) Acetaminophen Complement C3 Complement C4 Syphilis IgG Antibody HSV I Specific Ab Crossmatch 07/21/20 07/22/20 07/22/20 20:06 04:25 07:57 WBC 28.9 H RBC 2.35 L Hgb 8.0 L Hct 22.2 L MCV MCH 34 H MCHC 36 H RDW 20.5 H Plt Count 41 L Lymph % (Auto) [place] % (Auto) Lymph # (Auto) [place] # (Auto) Eos # (Auto) Seg Neutrophils % Seg Neuts % (Manual) 83.0 H Lymphocytes % (Manual) 6.0 L Monocytes % (Manual) Nucleated RBC % 2.0 H Seg Neutrophils # Seg Neutrophils # Man 24.0 H Lymphocytes # (Manual) Monocytes # (Manual) 1.4 H Eosinophils # (Manual) 0.6 H PT INR ABG pH 7.500 H POC ABG pCO2 POC ABG pO2 ABG pO2 104.9 H ABG Base Excess ABG Hemoglobin 8.6 L ABG Oxyhemoglobin ABG Sodium ABG Potassium ABG Chloride ABG Glucose VBG pH Oxyhemoglobin Carboxyhemoglobin Sodium Potassium Chloride Carbon Dioxide BUN Creatinine Glucose POC Glucose 128 H Lactic Acid Calcium Phosphorus Magnesium Total Bilirubin Direct Bilirubin AST ALT Alkaline Phosphatase Ammonia Total Creatine Kinase C-Reactive Protein Total Protein Albumin Lipase Arterial Blood Glucose Arterial Blood Ionized Calcium Urine WBC (Auto) U Epithel Cells (Auto) Acetaminophen Complement C3 Complement C4 Syphilis IgG Antibody HSV I Specific Ab Crossmatch 07/22/20 07/22/20 07/22/20 07:57 07:57 12:08 WBC RBC Hgb Hct MCV MCH MCHC RDW Plt Count Lymph % (Auto) [place] % (Auto) Lymph # (Auto) [place] # (Auto) Eos # (Auto) Seg Neutrophils % Seg Neuts % (Manual) Lymphocytes % (Manual) Monocytes % (Manual) Nucleated RBC % Seg Neutrophils # Seg Neutrophils # Man Lymphocytes # (Manual) Monocytes # (Manual) Eosinophils # (Manual) PT 21.6 H INR 1.87 H ABG pH POC ABG pCO2 POC ABG pO2 ABG pO2 ABG Base Excess ABG Hemoglobin ABG Oxyhemoglobin ABG Sodium ABG Potassium ABG Chloride ABG Glucose VBG pH Oxyhemoglobin Carboxyhemoglobin Sodium 147 H D Potassium 2.6 L* Chloride 112.7 H Carbon Dioxide BUN 51 H Creatinine Glucose 104 H POC Glucose Lactic Acid Calcium 7.8 L Phosphorus 1.10 L Magnesium 1.50 L Total Bilirubin 9.80 H 11.10 H Direct Bilirubin 8.8 H AST 234 H 231 H ALT 297 H 286 H Alkaline Phosphatase 296 H 323 H Ammonia Total Creatine Kinase C-Reactive Protein Total Protein 4.1 L 3.6 L Albumin 1.8 L 2.0 L Lipase Arterial Blood Glucose Arterial Blood Ionized Calcium Urine WBC (Auto) U Epithel Cells (Auto) Acetaminophen Complement C3 Complement C4 Syphilis IgG Antibody HSV I Specific Ab Crossmatch 07/23/20 07/23/20 07/23/20 01:53 02:51 07:38 WBC RBC Hgb Hct MCV MCH MCHC RDW Plt Count Lymph % (Auto) [place] % (Auto) Lymph # (Auto) [place] # (Auto) Eos # (Auto) Seg Neutrophils % Seg Neuts % (Manual) Lymphocytes % (Manual) Monocytes % (Manual) Nucleated RBC % Seg Neutrophils # Seg Neutrophils # Man Lymphocytes # (Manual) Monocytes # (Manual) Eosinophils # (Manual) PT INR ABG pH 7.313 L POC ABG pCO2 POC ABG pO2 67.0 L ABG pO2 ABG Base Excess ABG Hemoglobin ABG Oxyhemoglobin ABG Sodium ABG Potassium 3.2 L ABG Chloride 115.0 H ABG Glucose VBG pH Oxyhemoglobin Carboxyhemoglobin Sodium Potassium Chloride Carbon Dioxide BUN Creatinine Glucose POC Glucose 64 L 62 L Lactic Acid Calcium Phosphorus Magnesium Total Bilirubin Direct Bilirubin AST ALT Alkaline Phosphatase Ammonia Total Creatine Kinase C-Reactive Protein Total Protein Albumin Lipase Arterial Blood Glucose Arterial Blood Ionized Calcium 4.3 L Urine WBC (Auto) U Epithel Cells (Auto) Acetaminophen Complement C3 Complement C4 Syphilis IgG Antibody HSV I Specific Ab Crossmatch 07/23/20 07/23/20 07/23/20 07:39 07:39 23:52 WBC 37.0 H RBC 2.30 L Hgb 7.8 L Hct 22.5 L MCV 98 H MCH 34 H MCHC 35 H RDW 21.3 H Plt Count 55 L Lymph % (Auto) [place] % (Auto) Lymph # (Auto) [place] # (Auto) Eos # (Auto) Seg Neutrophils % Seg Neuts % (Manual) 78.0 H Lymphocytes % (Manual) 10.0 L Monocytes % (Manual) Nucleated RBC % 3.0 H Seg Neutrophils # Seg Neutrophils # Man 28.9 H Lymphocytes # (Manual) Monocytes # (Manual) 1.1 H Eosinophils # (Manual) 0.7 H PT INR ABG pH POC ABG pCO2 POC ABG pO2 ABG pO2 ABG Base Excess ABG Hemoglobin ABG Oxyhemoglobin ABG Sodium ABG Potassium ABG Chloride ABG Glucose VBG pH Oxyhemoglobin Carboxyhemoglobin Sodium 148 H Potassium Chloride 114.0 H Carbon Dioxide BUN 59 H Creatinine 1.5 H Glucose POC Glucose Lactic Acid Calcium 7.7 L Phosphorus 4.60 H D Magnesium Total Bilirubin 11.20 H Direct Bilirubin AST 245 H ALT 242 H Alkaline Phosphatase 423 H Ammonia Total Creatine Kinase C-Reactive Protein 17.20 H Total Protein 4.3 L Albumin 1.8 L Lipase Arterial Blood Glucose Arterial Blood Ionized Calcium Urine WBC (Auto) U Epithel Cells (Auto) Acetaminophen Complement C3 Complement C4 Syphilis IgG Antibody HSV I Specific Ab Crossmatch 07/23/20 07/23/20 07/23/20 23:52 23:52 Unknown WBC RBC Hgb Hct MCV MCH MCHC RDW Plt Count Lymph % (Auto) [place] % (Auto) Lymph # (Auto) [place] # (Auto) Eos # (Auto) Seg Neutrophils % Seg Neuts % (Manual) Lymphocytes % (Manual) Monocytes % (Manual) Nucleated RBC % Seg Neutrophils # Seg Neutrophils # Man Lymphocytes # (Manual) Monocytes # (Manual) Eosinophils # (Manual) PT INR ABG pH POC ABG pCO2 POC ABG pO2 ABG pO2 ABG Base Excess ABG Hemoglobin ABG Oxyhemoglobin ABG Sodium ABG Potassium ABG Chloride ABG Glucose VBG pH Oxyhemoglobin Carboxyhemoglobin Sodium Potassium Chloride Carbon Dioxide BUN Creatinine Glucose POC Glucose Lactic Acid Calcium Phosphorus Magnesium Total Bilirubin Direct Bilirubin AST ALT Alkaline Phosphatase Ammonia Total Creatine Kinase C-Reactive Protein Total Protein Albumin Lipase Arterial Blood Glucose Arterial Blood Ionized Calcium Urine WBC (Auto) 102.0 H U Epithel Cells (Auto) Acetaminophen Complement C3 55 L Complement C4 11 L Syphilis IgG Antibody HSV I Specific Ab Crossmatch 07/24/20 07/24/20 07/24/20 03:39 10:14 10:14 WBC RBC Hgb Hct MCV MCH MCHC RDW Plt Count Lymph % (Auto) [place] % (Auto) Lymph # (Auto) [place] # (Auto) Eos # (Auto) Seg Neutrophils % Seg Neuts % (Manual) Lymphocytes % (Manual) Monocytes % (Manual) Nucleated RBC % Seg Neutrophils # Seg Neutrophils # Man Lymphocytes # (Manual) Monocytes # (Manual) Eosinophils # (Manual) PT INR ABG pH POC ABG pCO2 POC ABG pO2 147.8 H ABG pO2 ABG Base Excess ABG Hemoglobin 5.5 L ABG Oxyhemoglobin ABG Sodium ABG Potassium 3.0 L ABG Chloride 117.0 H ABG Glucose VBG pH Oxyhemoglobin Carboxyhemoglobin Sodium 150 H Potassium 2.6 L* D Chloride 117.1 H Carbon Dioxide BUN 48 H Creatinine Glucose POC Glucose Lactic Acid Calcium 8.2 L Phosphorus 2.30 L D Magnesium 1.50 L Total Bilirubin Direct Bilirubin AST ALT Alkaline Phosphatase Ammonia Total Creatine Kinase C-Reactive Protein Total Protein Albumin Lipase Arterial Blood Glucose Arterial Blood Ionized Calcium Urine WBC (Auto) U Epithel Cells (Auto) Acetaminophen Complement C3 Complement C4 Syphilis IgG Antibody HSV I Specific Ab Crossmatch 07/24/20 07/24/20 07/24/20 10:14 10:14 21:31 WBC RBC Hgb Hct MCV MCH MCHC RDW Plt Count Lymph % (Auto) [place] % (Auto) Lymph # (Auto) [place] # (Auto) Eos # (Auto) Seg Neutrophils % Seg Neuts % (Manual) Lymphocytes % (Manual) Monocytes % (Manual) Nucleated RBC % Seg Neutrophils # Seg Neutrophils # Man Lymphocytes # (Manual) Monocytes # (Manual) Eosinophils # (Manual) PT 22.7 H INR 1.99 H ABG pH POC ABG pCO2 POC ABG pO2 ABG pO2 ABG Base Excess ABG Hemoglobin ABG Oxyhemoglobin ABG Sodium ABG Potassium ABG Chloride ABG Glucose VBG pH Oxyhemoglobin Carboxyhemoglobin Sodium Potassium Chloride Carbon Dioxide BUN Creatinine Glucose POC Glucose 59 L Lactic Acid Calcium Phosphorus Magnesium Total Bilirubin 10.30 H Direct Bilirubin 7.8 H AST 144 H ALT 129 H Alkaline Phosphatase 308 H Ammonia Total Creatine Kinase C-Reactive Protein Total Protein 4.2 L Albumin 2.4 L Lipase Arterial Blood Glucose Arterial Blood Ionized Calcium Urine WBC (Auto) U Epithel Cells (Auto) Acetaminophen Complement C3 Complement C4 Syphilis IgG Antibody HSV I Specific Ab Crossmatch 07/25/20 07/25/20 07/25/20 05:19 05:20 08:38 WBC RBC Hgb Hct MCV MCH MCHC RDW Plt Count Lymph % (Auto) [place] % (Auto) Lymph # (Auto) [place] # (Auto) Eos # (Auto) Seg Neutrophils % Seg Neuts % (Manual) Lymphocytes % (Manual) Monocytes % (Manual) Nucleated RBC % Seg Neutrophils # Seg Neutrophils # Man Lymphocytes # (Manual) Monocytes # (Manual) Eosinophils # (Manual) PT INR ABG pH 7.458 H POC ABG pCO2 POC ABG pO2 77.5 L ABG pO2 ABG Base Excess ABG Hemoglobin 8.5 L ABG Oxyhemoglobin 93.9 L ABG Sodium 147.8 H ABG Potassium 2.9 L ABG Chloride 118.0 H ABG Glucose VBG pH Oxyhemoglobin Carboxyhemoglobin 2.1 H Sodium Potassium Chloride Carbon Dioxide BUN Creatinine Glucose POC Glucose 55 L 107 H Lactic Acid Calcium Phosphorus Magnesium Total Bilirubin Direct Bilirubin AST ALT Alkaline Phosphatase Ammonia Total Creatine Kinase C-Reactive Protein Total Protein Albumin Lipase Arterial Blood Glucose Arterial Blood Ionized Calcium Urine WBC (Auto) U Epithel Cells (Auto) Acetaminophen Complement C3 Complement C4 Syphilis IgG Antibody HSV I Specific Ab Crossmatch 07/25/20 07/25/20 07/25/20 09:53 09:53 21:54 WBC RBC Hgb Hct MCV MCH MCHC RDW Plt Count Lymph % (Auto) [place] % (Auto) Lymph # (Auto) [place] # (Auto) Eos # (Auto) Seg Neutrophils % Seg Neuts % (Manual) Lymphocytes % (Manual) Monocytes % (Manual) Nucleated RBC % Seg Neutrophils # Seg Neutrophils # Man Lymphocytes # (Manual) Monocytes # (Manual) Eosinophils # (Manual) PT 22.3 H INR 1.94 H ABG pH POC ABG pCO2 POC ABG pO2 ABG pO2 ABG Base Excess ABG Hemoglobin ABG Oxyhemoglobin ABG Sodium ABG Potassium ABG Chloride ABG Glucose VBG pH Oxyhemoglobin Carboxyhemoglobin Sodium 154 H Potassium 2.8 L* Chloride 121.5 H Carbon Dioxide BUN 47 H Creatinine Glucose POC Glucose 112 H Lactic Acid Calcium Phosphorus Magnesium Total Bilirubin 11.60 H Direct Bilirubin AST 141 H ALT 115 H Alkaline Phosphatase 355 H Ammonia Total Creatine Kinase C-Reactive Protein Total Protein 4.3 L Albumin 2.2 L Lipase Arterial Blood Glucose Arterial Blood Ionized Calcium Urine WBC (Auto) U Epithel Cells (Auto) Acetaminophen Complement C3 Complement C4 Syphilis IgG Antibody HSV I Specific Ab Crossmatch 07/26/20 07/26/20 07/26/20 01:54 05:38 07:48 WBC RBC Hgb Hct MCV MCH MCHC RDW Plt Count Lymph % (Auto) [place] % (Auto) Lymph # (Auto) [place] # (Auto) Eos # (Auto) Seg Neutrophils % Seg Neuts % (Manual) Lymphocytes % (Manual) Monocytes % (Manual) Nucleated RBC % Seg Neutrophils # Seg Neutrophils # Man Lymphocytes # (Manual) Monocytes # (Manual) Eosinophils # (Manual) PT INR ABG pH POC ABG pCO2 POC ABG pO2 ABG pO2 ABG Base Excess ABG Hemoglobin ABG Oxyhemoglobin ABG Sodium ABG Potassium ABG Chloride ABG Glucose VBG pH Oxyhemoglobin Carboxyhemoglobin Sodium Potassium Chloride Carbon Dioxide BUN Creatinine Glucose POC Glucose 130 H 155 H 155 H Lactic Acid Calcium Phosphorus Magnesium Total Bilirubin Direct Bilirubin AST ALT Alkaline Phosphatase Ammonia Total Creatine Kinase C-Reactive Protein Total Protein Albumin Lipase Arterial Blood Glucose Arterial Blood Ionized Calcium Urine WBC (Auto) U Epithel Cells (Auto) Acetaminophen Complement C3 Complement C4 Syphilis IgG Antibody HSV I Specific Ab Crossmatch 07/26/20 07/26/20 07/26/20 11:31 14:47 14:47 WBC RBC Hgb Hct MCV MCH MCHC RDW Plt Count Lymph % (Auto) [place] % (Auto) Lymph # (Auto) [place] # (Auto) Eos # (Auto) Seg Neutrophils % Seg Neuts % (Manual) Lymphocytes % (Manual) Monocytes % (Manual) Nucleated RBC % Seg Neutrophils # Seg Neutrophils # Man Lymphocytes # (Manual) Monocytes # (Manual) Eosinophils # (Manual) PT 21.2 H INR 1.83 H ABG pH POC ABG pCO2 POC ABG pO2 ABG pO2 ABG Base Excess ABG Hemoglobin ABG Oxyhemoglobin ABG Sodium ABG Potassium ABG Chloride ABG Glucose VBG pH Oxyhemoglobin Carboxyhemoglobin Sodium 148 H Potassium 3.4 L D Chloride 118.2 H Carbon Dioxide BUN 42 H Creatinine Glucose 177 H POC Glucose 147 H Lactic Acid Calcium Phosphorus Magnesium Total Bilirubin Direct Bilirubin AST ALT Alkaline Phosphatase Ammonia Total Creatine Kinase C-Reactive Protein Total Protein Albumin Lipase Arterial Blood Glucose Arterial Blood Ionized Calcium Urine WBC (Auto) U Epithel Cells (Auto) Acetaminophen Complement C3 Complement C4 Syphilis IgG Antibody HSV I Specific Ab Crossmatch 07/26/20 07/26/20 07/26/20 14:47 16:57 21:36 WBC RBC Hgb Hct MCV MCH MCHC RDW Plt Count Lymph % (Auto) [place] % (Auto) Lymph # (Auto) [place] # (Auto) Eos # (Auto) Seg Neutrophils % Seg Neuts % (Manual) Lymphocytes % (Manual) Monocytes % (Manual) Nucleated RBC % Seg Neutrophils # Seg Neutrophils # Man Lymphocytes # (Manual) Monocytes # (Manual) Eosinophils # (Manual) PT INR ABG pH POC ABG pCO2 POC ABG pO2 ABG pO2 ABG Base Excess ABG Hemoglobin ABG Oxyhemoglobin ABG Sodium ABG Potassium ABG Chloride ABG Glucose VBG pH Oxyhemoglobin Carboxyhemoglobin Sodium Potassium Chloride Carbon Dioxide BUN Creatinine Glucose POC Glucose 149 H 129 H Lactic Acid Calcium Phosphorus Magnesium Total Bilirubin 11.30 H Direct Bilirubin 8.6 H AST 139 H ALT 109 H Alkaline Phosphatase 368 H Ammonia Total Creatine Kinase C-Reactive Protein Total Protein 4.1 L Albumin 2.3 L Lipase Arterial Blood Glucose Arterial Blood Ionized Calcium Urine WBC (Auto) U Epithel Cells (Auto) Acetaminophen Complement C3 Complement C4 Syphilis IgG Antibody HSV I Specific Ab Crossmatch 07/27/20 07/27/20 07/27/20 02:03 04:45 04:45 WBC 22.2 H RBC 1.95 L Hgb 6.5 L Hct 18.9 L* MCV MCH 34 H MCHC 35 H RDW 21.3 H Plt Count 29 L Lymph % (Auto) [place] % (Auto) Lymph # (Auto) [place] # (Auto) Eos # (Auto) Seg Neutrophils % Seg Neuts % (Manual) 82.0 H Lymphocytes % (Manual) 3.0 L Monocytes % (Manual) Nucleated RBC % Seg Neutrophils # Seg Neutrophils # Man 18.2 H Lymphocytes # (Manual) 0.7 L Monocytes # (Manual) Eosinophils # (Manual) PT INR ABG pH POC ABG pCO2 POC ABG pO2 ABG pO2 ABG Base Excess ABG Hemoglobin ABG Oxyhemoglobin ABG Sodium ABG Potassium ABG Chloride ABG Glucose VBG pH Oxyhemoglobin Carboxyhemoglobin Sodium 150 H Potassium 3.4 L Chloride 119.4 H Carbon Dioxide BUN 47 H Creatinine Glucose 137 H POC Glucose 134 H Lactic Acid Calcium Phosphorus Magnesium Total Bilirubin 9.60 H Direct Bilirubin AST 120 H ALT 89 H Alkaline Phosphatase 340 H Ammonia Total Creatine Kinase C-Reactive Protein Total Protein 3.7 L Albumin 2.1 L Lipase Arterial Blood Glucose Arterial Blood Ionized Calcium Urine WBC (Auto) U Epithel Cells (Auto) Acetaminophen Complement C3 Complement C4 Syphilis IgG Antibody HSV I Specific Ab Crossmatch 07/27/20 07/27/20 07/27/20 05:36 08:45 10:28 WBC RBC Hgb Hct MCV MCH MCHC RDW Plt Count Lymph % (Auto) [place] % (Auto) Lymph # (Auto) [place] # (Auto) Eos # (Auto) Seg Neutrophils % Seg Neuts % (Manual) Lymphocytes % (Manual) Monocytes % (Manual) Nucleated RBC % Seg Neutrophils # Seg Neutrophils # Man Lymphocytes # (Manual) Monocytes # (Manual) Eosinophils # (Manual) PT INR ABG pH POC ABG pCO2 POC ABG pO2 ABG pO2 ABG Base Excess ABG Hemoglobin ABG Oxyhemoglobin ABG Sodium ABG Potassium ABG Chloride ABG Glucose VBG pH Oxyhemoglobin Carboxyhemoglobin Sodium Potassium Chloride Carbon Dioxide BUN Creatinine Glucose POC Glucose 126 H 149 H Lactic Acid Calcium Phosphorus Magnesium Total Bilirubin Direct Bilirubin AST ALT Alkaline Phosphatase Ammonia Total Creatine Kinase C-Reactive Protein Total Protein Albumin Lipase Arterial Blood Glucose Arterial Blood Ionized Calcium Urine WBC (Auto) U Epithel Cells (Auto) Acetaminophen Complement C3 Complement C4 Syphilis IgG Antibody HSV I Specific Ab Crossmatch See Detail 07/27/20 07/28/20 07/28/20 15:32 00:32 05:09 WBC RBC Hgb 9.5 L D Hct 28.6 L D MCV MCH MCHC RDW Plt Count Lymph % (Auto) [place] % (Auto) Lymph # (Auto) [place] # (Auto) Eos # (Auto) Seg Neutrophils % Seg Neuts % (Manual) Lymphocytes % (Manual) Monocytes % (Manual) Nucleated RBC % Seg Neutrophils # Seg Neutrophils # Man Lymphocytes # (Manual) Monocytes # (Manual) Eosinophils # (Manual) PT INR ABG pH POC ABG pCO2 POC ABG pO2 67.3 L ABG pO2 ABG Base Excess ABG Hemoglobin 10.5 L ABG Oxyhemoglobin 90.9 L ABG Sodium ABG Potassium ABG Chloride 117.0 H ABG Glucose 105 H VBG pH Oxyhemoglobin Carboxyhemoglobin Sodium Potassium Chloride Carbon Dioxide BUN Creatinine Glucose POC Glucose 113 H Lactic Acid Calcium Phosphorus Magnesium Total Bilirubin Direct Bilirubin AST ALT Alkaline Phosphatase Ammonia Total Creatine Kinase C-Reactive Protein Total Protein Albumin Lipase Arterial Blood Glucose 105 H Arterial Blood Ionized Calcium Urine WBC (Auto) U Epithel Cells (Auto) Acetaminophen Complement C3 Complement C4 Syphilis IgG Antibody HSV I Specific Ab Crossmatch 07/28/20 07/28/20 07/28/20 09:42 11:50 16:43 WBC RBC Hgb Hct MCV MCH MCHC RDW Plt Count Lymph % (Auto) [place] % (Auto) Lymph # (Auto) [place] # (Auto) Eos # (Auto) Seg Neutrophils % Seg Neuts % (Manual) Lymphocytes % (Manual) Monocytes % (Manual) Nucleated RBC % Seg Neutrophils # Seg Neutrophils # Man Lymphocytes # (Manual) Monocytes # (Manual) Eosinophils # (Manual) PT INR ABG pH POC ABG pCO2 POC ABG pO2 ABG pO2 ABG Base Excess ABG Hemoglobin ABG Oxyhemoglobin ABG Sodium ABG Potassium ABG Chloride ABG Glucose VBG pH Oxyhemoglobin Carboxyhemoglobin Sodium 146 H Potassium Chloride 116.7 H Carbon Dioxide 20 L BUN 51 H Creatinine 1.6 H D Glucose 107 H POC Glucose 109 H 114 H Lactic Acid Calcium 8.2 L Phosphorus Magnesium Total Bilirubin 9.70 H Direct Bilirubin AST 195 H ALT 99 H Alkaline Phosphatase 422 H Ammonia Total Creatine Kinase C-Reactive Protein Total Protein 5.2 L D Albumin 2.1 L Lipase Arterial Blood Glucose Arterial Blood Ionized Calcium Urine WBC (Auto) U Epithel Cells (Auto) Acetaminophen Complement C3 Complement C4 Syphilis IgG Antibody HSV I Specific Ab Crossmatch 07/28/20 07/28/20 07/29/20 21:29 23:48 02:10 WBC RBC Hgb Hct MCV MCH MCHC RDW Plt Count Lymph % (Auto) [place] % (Auto) Lymph # (Auto) [place] # (Auto) Eos # (Auto) Seg Neutrophils % Seg Neuts % (Manual) Lymphocytes % (Manual) Monocytes % (Manual) Nucleated RBC % Seg Neutrophils # Seg Neutrophils # Man Lymphocytes # (Manual) Monocytes # (Manual) Eosinophils # (Manual) PT INR ABG pH POC ABG pCO2 POC ABG pO2 ABG pO2 ABG Base Excess ABG Hemoglobin ABG Oxyhemoglobin ABG Sodium ABG Potassium ABG Chloride ABG Glucose VBG pH Oxyhemoglobin Carboxyhemoglobin Sodium Potassium Chloride Carbon Dioxide BUN Creatinine Glucose POC Glucose 122 H 117 H 136 H Lactic Acid Calcium Phosphorus Magnesium Total Bilirubin Direct Bilirubin AST ALT Alkaline Phosphatase Ammonia Total Creatine Kinase C-Reactive Protein Total Protein Albumin Lipase Arterial Blood Glucose Arterial Blood Ionized Calcium Urine WBC (Auto) U Epithel Cells (Auto) Acetaminophen Complement C3 Complement C4 Syphilis IgG Antibody HSV I Specific Ab Crossmatch 07/29/20 07/29/20 07/29/20 05:15 12:19 13:34 WBC RBC Hgb Hct MCV MCH MCHC RDW Plt Count Lymph % (Auto) Posey % (Auto) Lymph # (Auto) Posey # (Auto) Eos # (Auto) Seg Neutrophils % Seg Neuts % (Manual) Lymphocytes % (Manual) Monocytes % (Manual) Nucleated RBC % Seg Neutrophils # Seg Neutrophils # Man Lymphocytes # (Manual) Monocytes # (Manual) Eosinophils # (Manual) PT INR ABG pH POC ABG pCO2 POC ABG pO2 ABG pO2 ABG Base Excess ABG Hemoglobin ABG Oxyhemoglobin ABG Sodium ABG Potassium ABG Chloride ABG Glucose VBG pH Oxyhemoglobin Carboxyhemoglobin Sodium Potassium Chloride Carbon Dioxide BUN Creatinine Glucose POC Glucose 128 H 115 H 124 H Lactic Acid Calcium Phosphorus Magnesium Total Bilirubin Direct Bilirubin AST ALT Alkaline Phosphatase Ammonia Total Creatine Kinase C-Reactive Protein Total Protein Albumin Lipase Arterial Blood Glucose Arterial Blood Ionized Calcium Urine WBC (Auto) U Epithel Cells (Auto) Acetaminophen Complement C3 Complement C4 Syphilis IgG Antibody HSV I Specific Ab Crossmatch 07/29/20 07/29/20 07/29/20 13:42 15:00 17:04 WBC 37.2 H RBC 2.90 L Hgb 9.4 L Hct 28.2 L MCV 98 H MCH 33 H MCHC RDW 19.3 H Plt Count 55 L Lymph % (Auto) Posey % (Auto) Lymph # (Auto) Posey # (Auto) Eos # (Auto) Seg Neutrophils % Seg Neuts % (Manual) 93.0 H Lymphocytes % (Manual) 6.0 L Monocytes % (Manual) Nucleated RBC % 2.0 H Seg Neutrophils # Seg Neutrophils # Man 34.6 H Lymphocytes # (Manual) Monocytes # (Manual) Eosinophils # (Manual) PT INR ABG pH POC ABG pCO2 POC ABG pO2 ABG pO2 ABG Base Excess ABG Hemoglobin ABG Oxyhemoglobin ABG Sodium ABG Potassium ABG Chloride ABG Glucose VBG pH Oxyhemoglobin Carboxyhemoglobin Sodium 148 H Potassium Chloride 117.9 H Carbon Dioxide 21 L BUN 62 H Creatinine 1.8 H Glucose 124 H POC Glucose Lactic Acid Calcium 8.1 L Phosphorus Magnesium Total Bilirubin Direct Bilirubin AST ALT Alkaline Phosphatase Ammonia Total Creatine Kinase C-Reactive Protein Total Protein Albumin Lipase Arterial Blood Glucose Arterial Blood Ionized Calcium Urine WBC (Auto) 127.0 H U Epithel Cells (Auto) 18.0 H Acetaminophen Complement C3 Complement C4 Syphilis IgG Antibody HSV I Specific Ab Crossmatch 07/29/20 07/29/20 07/30/20 18:25 21:28 01:57 WBC RBC Hgb Hct MCV MCH MCHC RDW Plt Count Lymph % (Auto) Posey % (Auto) Lymph # (Auto) Posey # (Auto) Eos # (Auto) Seg Neutrophils % Seg Neuts % (Manual) Lymphocytes % (Manual) Monocytes % (Manual) Nucleated RBC % Seg Neutrophils # Seg Neutrophils # Man Lymphocytes # (Manual) Monocytes # (Manual) Eosinophils # (Manual) PT INR ABG pH POC ABG pCO2 POC ABG pO2 ABG pO2 ABG Base Excess ABG Hemoglobin ABG Oxyhemoglobin ABG Sodium ABG Potassium ABG Chloride ABG Glucose VBG pH Oxyhemoglobin Carboxyhemoglobin Sodium Potassium Chloride Carbon Dioxide BUN Creatinine Glucose POC Glucose 129 H 113 H 115 H Lactic Acid Calcium Phosphorus Magnesium Total Bilirubin Direct Bilirubin AST ALT Alkaline Phosphatase Ammonia Total Creatine Kinase C-Reactive Protein Total Protein Albumin Lipase Arterial Blood Glucose Arterial Blood Ionized Calcium Urine WBC (Auto) U Epithel Cells (Auto) Acetaminophen Complement C3 Complement C4 Syphilis IgG Antibody HSV I Specific Ab Crossmatch 07/30/20 07/30/20 07/30/20 05:36 05:46 11:40 WBC RBC Hgb Hct MCV MCH MCHC RDW Plt Count Lymph % (Auto) Posey % (Auto) Lymph # (Auto) Posey # (Auto) Eos # (Auto) Seg Neutrophils % Seg Neuts % (Manual) Lymphocytes % (Manual) Monocytes % (Manual) Nucleated RBC % Seg Neutrophils # Seg Neutrophils # Man Lymphocytes # (Manual) Monocytes # (Manual) Eosinophils # (Manual) PT INR ABG pH POC ABG pCO2 POC ABG pO2 ABG pO2 ABG Base Excess ABG Hemoglobin ABG Oxyhemoglobin ABG Sodium ABG Potassium ABG Chloride ABG Glucose VBG pH Oxyhemoglobin Carboxyhemoglobin Sodium 149 H Potassium Chloride 118.2 H Carbon Dioxide 20 L BUN 64 H Creatinine 2.0 H Glucose 133 H POC Glucose 115 H 126 H Lactic Acid Calcium 7.7 L Phosphorus Magnesium Total Bilirubin Direct Bilirubin AST ALT Alkaline Phosphatase Ammonia Total Creatine Kinase C-Reactive Protein Total Protein Albumin Lipase Arterial Blood Glucose Arterial Blood Ionized Calcium Urine WBC (Auto) U Epithel Cells (Auto) Acetaminophen Complement C3 Complement C4 Syphilis IgG Antibody HSV I Specific Ab Crossmatch 07/30/20 07/30/20 07/31/20 18:11 21:31 01:18 WBC RBC Hgb Hct MCV MCH MCHC RDW Plt Count Lymph % (Auto) Posey % (Auto) Lymph # (Auto) Posey # (Auto) Eos # (Auto) Seg Neutrophils % Seg Neuts % (Manual) Lymphocytes % (Manual) Monocytes % (Manual) Nucleated RBC % Seg Neutrophils # Seg Neutrophils # Man Lymphocytes # (Manual) Monocytes # (Manual) Eosinophils # (Manual) PT INR ABG pH POC ABG pCO2 POC ABG pO2 ABG pO2 ABG Base Excess ABG Hemoglobin ABG Oxyhemoglobin ABG Sodium ABG Potassium ABG Chloride ABG Glucose VBG pH Oxyhemoglobin Carboxyhemoglobin Sodium Potassium Chloride Carbon Dioxide BUN Creatinine Glucose POC Glucose 138 H 140 H 133 H Lactic Acid Calcium Phosphorus Magnesium Total Bilirubin Direct Bilirubin AST ALT Alkaline Phosphatase Ammonia Total Creatine Kinase C-Reactive Protein Total Protein Albumin Lipase Arterial Blood Glucose Arterial Blood Ionized Calcium Urine WBC (Auto) U Epithel Cells (Auto) Acetaminophen Complement C3 Complement C4 Syphilis IgG Antibody HSV I Specific Ab Crossmatch 07/31/20 05:14 WBC RBC Hgb Hct MCV MCH MCHC RDW Plt Count Lymph % (Auto) Posey % (Auto) Lymph # (Auto) P[place]y # (Auto) Eos # (Auto) Seg Neutrophils % Seg Neuts % (Manual) Lymphocytes % (Manual) Monocytes % (Manual) Nucleated RBC % Seg Neutrophils # Seg Neutrophils # Man Lymphocytes # (Manual) Monocytes # (Manual) Eosinophils # (Manual) PT INR ABG pH POC ABG pCO2 POC ABG pO2 ABG pO2 ABG Base Excess ABG Hemoglobin ABG Oxyhemoglobin ABG Sodium ABG Potassium ABG Chloride ABG Glucose VBG pH Oxyhemoglobin Carboxyhemoglobin Sodium Potassium Chloride Carbon Dioxide BUN Creatinine Glucose POC Glucose 118 H Lactic Acid Calcium Phosphorus Magnesium Total Bilirubin Direct Bilirubin AST ALT Alkaline Phosphatase Ammonia Total Creatine Kinase C-Reactive Protein Total Protein Albumin Lipase Arterial Blood Glucose Arterial Blood Ionized Calcium Urine WBC (Auto) U Epithel Cells (Auto) Acetaminophen Complement C3 Complement C4 Syphilis IgG Antibody HSV I Specific Ab Crossmatch
--- NOTE | 2020-07-31 15:17 | Progress Note ---
Assessment and Plan Cultures: 07/16/2020 blood culture: no growth 07/17/2020 cervix wet prep: High number of clue cells, no trichomonas or yeast seen. 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 #Severe sepsis septic shock/MODS: remains on pressors. No clear infectious etiology. Likely secondary to acute hepatic failure. #Bilateral pneumonia versus pulmonary edema: Bilateral pleural effusions, diffuse bilateral patchy groundglass opacities. Completed empiric abx. #Acute hepatic failure: ?Toxin/med related v/s autoimmune, less likely infectious. Also ruling out HSV induced hepatic necrosis and related fulminant hepatic failure. GI also evaluated. LFTs and synthetic liver function continue to improve. MARY negative, C3, C4 low. #Acute kidney injury: resolved #Possible UTI/PID: completed empiric abx. GC NAAT negative. #Diffuse colitis noted on CT scan: s/p antibiotics. On multiple pressors. More likely to be ischemia related. No active diarrhea. #Acute encephalopathy, diffuse cerebral edema: Probably a combination of acute liver failure and hypoxic encephalopathy. #Acute thrombocytopenia #Anemia #Syphilis IgG positive, RPR titer non reactive, FTA-ABS is also nonreactive, so very likely it is a false positive Recs: -Continue renally dosed acyclovir, till results of serum HSV DNA PCR are back -overall guarded prognosis Usha Martinez MD [facility] ([facility] O: [phone] F: [phone] Subjective Date of service: 07/31/20 Principal diagnosis: Acute Liver Injury Interval history: Afebrile now white count remains elevated at last check. All cultures remain negative at this time. Pending brain MRI today. Remains mechanically ventilated. Objective - Exam Narrative Exam: Constitutional: unresponsive, intubated, on the vent Head, Ears, Nose: Normocephalic, atraumatic. Eyes: Conjunctivae/corneas clear. Neck: intubated Oral: intubated Cardiovascular: S1, S2 + Respiratory: AE fair bilaterally and equal GI: Soft, bowel sounds hypo Musculoskeletal: anasarca + Skin: No rash or abscess Hem/Lymphatic: No palpable cervical or supraclavicular nodes. No lymphangitis Psych: no agitation Neurological: unresponsive, intubated, on the vent, exam limited - Constitutional Vitals: Vital Signs Temp Pulse Resp BP Pulse Ox 97.9 F 67 14 116/57 91 07/31/20 12:00 07/31/20 14:32 07/31/20 13:00 07/31/20 13:00 07/31/20 14:32 Temperature -Last 24 Hours Temperature 97.9 F Temperature 98 F Temperature 97.2 F Temperature 96.0 F Temperature 96.8 F Temperature 97.0 F - Labs CBC & Chem 7: 07/29/20 17:04 07/30/20 05:46 Labs: Abnormal lab results 07/30/20 07/30/20 07/31/20 Range/Units 18:11 21:31 01:18 POC Glucose 138 H 140 H 133 H (70-105) mg/dL 07/31/20 Range/Units 05:14 POC Glucose 118 H (70-105) mg/dL
--- NOTE | 2020-07-31 15:52 | Magnetic Resonance Report ---
MR brain wo con INDICATION / CLINICAL INFORMATION: 29 years Female; AMS. TECHNIQUE: Multiplanar, multisequence MR images were obtained. COMPARISON: None available. FINDINGS: FLAIR imaging demonstrates marked increased signal in the basal ganglia and thalamic regions. There i s also increased signal diffusely in the cortex of the cerebral and cerebellar hemispheres. Top of th at, there are lacunar-type infarcts seen in the thalamic regions bilaterally, as evidenced by focal a reas of increased T2 signal. 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 Similar findings seen on prior CT. Basal cisterns are only minimally visualized-overall, findin gs worrisome for diffuse cerebral edema, resulting in anoxia. The diffusion scan demonstrates multiple areas of increased signal in the cerebral cortex, as does th e ADC map, suggesting a subacute anoxic process, when compared with CT findings from 07/19/2020 and dari brooks's FLAIR sequence. Cerebellar hemispheres demonstrate increased diffusion and decreased ADC map c hanges in the cerebellar cortex - findings may be acute/subacute in age in the cerebellar hemispheres . Of significant concern, there is increased T2 signal in the internal carotid arteries and basilar art cecelia, suggesting slow or absent flow. Moderate mucosal thickening seen in the maxillary antra and sphenoid sinuses with associated air-flui d levels. There is significant opacification of the mastoid air cells with small air-fluid levels. Th e frontal sinuses and ethmoids are completely opacified. IMPRESSION: 1. Marked abnormality in the brain, as described above. Signer Name: Liban Verdin MD, III Signed: 07/31/2020 3:48 PM Workstation Name: [id number]
--- NOTE | 2020-07-31 17:23 | Progress Note ---
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 Syphilis Plan: -Labs pending today -Off pressors -On D10 infusion at 50 ml/hr for hypoglycemia -S/p blood transfusion -S/p Albumin -Neurology evaluated pt, check MRI Brain, follow up recs -Monitor I/O's daily -Kenney Catheter: Yes -Intake= 1787 ml Output= 1825 ml (Net= -37 ml) -Renal plan d/w Dr Thapa Subjective Date of service: 07/31/20 Principal diagnosis: Acute Liver Injury Interval history: Pt seen in ICU intubated on ventilator, off pressors Objective - Vital Signs Vital signs: Vital Signs - 12hr 07/31/20 07/31/20 07/31/20 05:30 05:45 06:00 Temperature Pulse Rate 68 69 70 Pulse Rate [ From Monitor] Respiratory 18 18 18 Rate Blood Pressure 111/56 113/56 113/56 O2 Sat by Pulse 93 94 92 Oximetry 07/31/20 07/31/20 07/31/20 06:15 06:30 06:45 Temperature Pulse Rate 71 71 72 Pulse Rate [ From Monitor] Respiratory 17 18 18 Rate Blood Pressure 115/57 111/56 113/59 O2 Sat by Pulse 93 92 94 Oximetry 07/31/20 07/31/20 07/31/20 07:00 07:15 07:30 Temperature Pulse Rate 73 74 74 Pulse Rate [ From Monitor] Respiratory 18 18 18 Rate Blood Pressure 115/56 114/57 115/57 O2 Sat by Pulse 93 92 93 Oximetry 07/31/20 07/31/20 07/31/20 07:40 07:45 08:00 Temperature 98 F Pulse Rate 75 75 76 Pulse Rate [ 71 From Monitor] Respiratory 18 19 Rate Blood Pressure 115/57 114/57 O2 Sat by Pulse 93 92 93 Oximetry 07/31/20 07/31/20 07/31/20 08:15 08:30 08:45 Temperature Pulse Rate 76 76 81 Pulse Rate [ From Monitor] Respiratory 17 25 H 20 Rate Blood Pressure 114/56 116/53 118/61 O2 Sat by Pulse 93 93 94 Oximetry 07/31/20 07/31/20 07/31/20 09:00 09:15 09:30 Temperature Pulse Rate 77 77 77 Pulse Rate [ From Monitor] Respiratory 18 17 19 Rate Blood Pressure 115/53 117/54 115/54 O2 Sat by Pulse 93 93 93 Oximetry 07/31/20 07/31/20 07/31/20 09:45 10:00 10:15 Temperature Pulse Rate 77 77 76 Pulse Rate [ From Monitor] Respiratory 19 18 18 Rate Blood Pressure 116/57 115/58 113/56 O2 Sat by Pulse 94 94 94 Oximetry 07/31/20 07/31/20 07/31/20 10:30 10:45 11:00 Temperature Pulse Rate 75 75 75 Pulse Rate [ From Monitor] Respiratory 17 17 16 Rate Blood Pressure 114/56 117/62 114/60 O2 Sat by Pulse 94 93 93 Oximetry 07/31/20 07/31/20 07/31/20 11:15 11:30 11:45 Temperature Pulse Rate 75 77 75 Pulse Rate [ From Monitor] Respiratory 18 17 18 Rate Blood Pressure 114/58 116/61 113/54 O2 Sat by Pulse 91 92 90 Oximetry 07/31/20 07/31/20 07/31/20 11:47 12:00 12:15 Temperature 97.9 F Pulse Rate 74 74 73 Pulse Rate [ 74 From Monitor] Respiratory 17 18 Rate Blood Pressure 113/54 115/54 114/56 O2 Sat by Pulse 91 90 91 Oximetry 07/31/20 07/31/20 07/31/20 12:30 12:45 13:00 Temperature Pulse Rate 74 74 73 Pulse Rate [ From Monitor] Respiratory 18 17 14 Rate Blood Pressure 113/56 113/59 116/57 O2 Sat by Pulse 91 92 91 Oximetry 07/31/20 07/31/20 07/31/20 14:27 14:30 14:32 Temperature Pulse Rate 69 68 67 Pulse Rate [ From Monitor] Respiratory 21 18 Rate Blood Pressure 110/56 106/52 O2 Sat by Pulse 95 85 91 Oximetry 07/31/20 07/31/20 07/31/20 14:45 15:00 15:10 Temperature Pulse Rate 67 66 72 Pulse Rate [ From Monitor] Respiratory 18 18 Rate Blood Pressure 107/66 109/66 O2 Sat by Pulse 95 95 95 Oximetry 07/31/20 07/31/20 07/31/20 15:15 15:30 15:45 Temperature Pulse Rate 66 66 64 Pulse Rate [ From Monitor] Respiratory 18 18 18 Rate Blood Pressure 108/67 113/65 113/69 O2 Sat by Pulse 95 96 95 Oximetry 07/31/20 16:00 Temperature Pulse Rate 64 Pulse Rate [ 64 From Monitor] Respiratory 18 Rate Blood Pressure 118/75 O2 Sat by Pulse 96 Oximetry - General Appearance General appearance: intubated Neck: no JVD Respiratory: Present: Decreased Breath Sounds (intubated) Cardiology: S1S2 (orogastric tube in place) Gastrointestinal: normoactive bowel sounds (orogastric tube in place), other ( : Kenney to gravity draining fatemeh colored urine) Integumentary: warm and dry Neurologic: other (intubated) Musculoskeletal: other (1+ edema to BLE) Psychiatric: other (unable to assess) - Lab 07/29/20 17:04 07/30/20 05:46 Most recent lab results ABG pH 7.412 (7.320-7.450) 07/28/20 05:09 ABG pCO2 31.2 mm Hg 07/22/20 04:25 ABG pO2 104.9 mm Hg (80.0-90.0) H 07/22/20 04:25 ABG HCO3 23.7 mmol/L (20.0-26.0) 07/22/20 04:25 ABG O2 Saturation 98.1 % (95.0-99.0) 07/22/20 04:25 Calcium 7.7 mg/dL (8.4-10.2) L 07/30/20 05:46 Phosphorus 2.30 mg/dL (2.5-4.5) L D 07/24/20 10:14 Magnesium 2.10 mg/dL (1.7-2.3) 07/27/20 16:43 Medications & Allergies - Medications Allergies/Adverse Reactions: Allergies No Known Allergies Allergy (Verified 07/16/20 22:03) Home Medications: Home Medications Medication Instructions Recorded Confirmed Last Taken Type No Known Home Medications [No 07/17/20 07/17/20 Unknown History Reported Home Medications] Active Medications: Generic Name Dose Route Start Last Admin Trade Name Freq PRN Reason Stop Dose Admin Acetaminophen 650 mg 07/23/20 00:37 07/23/20 01:05 Acetaminophen 325 Mg/10.15 Ml Oral Liqd Unit Dose FEEDTUBE 650 mg Q6H PRN Administration Fever >101 Lipase/Protease/Amylase 1 each 07/23/20 08:37 Lipase 10,500/Protease 25,000/Amylase 43,750 (Units) Dr Sher FEEDTUBE PRN PRN For Clogged Feeding Tube Thiamine HCl 100 mg/ Sodium 51 mls @ 100 mls/hr 07/18/20 10:00 07/31/20 10:41 Chloride IV 100 mls/hr QDAY ESTELA Administration Folic Acid 1 mg/ Sodium 50.2 mls @ 200.8 mls/hr 07/18/20 10:00 07/31/20 10:41 Chloride IV 200.8 mls/hr QDAY ESTELA Administration Vasopressin 20 unit/ Sodium 101 mls @ 9.09 mls/hr 07/19/20 10:00 07/30/20 14:08 Chloride IV 0 units/min TITR ESTELA 0 mls/hr Titration Protocol 0.03 UNITS/MIN Norepinephrine 8 mg/ Sodium 250 mls @ 3.75 mls/hr 07/19/20 21:00 07/30/20 23:00 Chloride IV 0 mcg/min TITR ESTELA 0 mls/hr Titration Protocol 2 MCG/MIN Dextrose 1,000 mls @ 50 mls/hr 07/25/20 09:00 07/31/20 06:31 D10w IV 50 mls/hr DIRECT ESTELA Administration Magnesium Hydroxide 30 ml 07/17/20 03:56 Magnesium Hydroxide (Mom) Oral Liqd Udc PO Q4H PRN Constipation Midodrine 10 mg 07/29/20 10:00 07/31/20 15:26 Midodrine 5 Mg Tab PO 10 mg Q8HR ESTELA Administration Ondansetron HCl 4 mg 07/17/20 03:56 07/18/20 20:00 Ondansetron 4 Mg/2 Ml Inj IV 4 mg Q8H PRN Administration Nausea And Vomiting Pantoprazole Sodium 40 mg 08/01/20 10:00 Pantoprazole 40 Mg Inj IV BID ESTELA Simple Syrup 15 ml 07/23/20 08:37 Simple Syrup 15 Ml FEEDTUBE PRN PRN Hypoglycemia Simple Syrup 30 ml 07/23/20 08:37 Simple Syrup 15 Ml FEEDTUBE PRN PRN Hypoglycemia Sodium Bicarbonate 325 mg 07/23/20 08:37 Sodium Bicarbonate 325 Mg Tab FEEDTUBE PRN PRN For Clogged Feeding Tube Sodium Chloride 10 ml 07/17/20 10:00 07/31/20 10:42 Sodium Chloride 0.9% 10 Ml Flush Syringe IV 10 ml BID ESTELA Administration Sodium Chloride 10 ml 07/17/20 03:56 Sodium Chloride 0.9% 10 Ml Flush Syringe IV PRN PRN LINE FLUSH
[2020-07-31 19:12] LABS: Hemoglobin 10.4 gm/dl (10.1-14.3); Mean Corpuscular HGB Conc 35 % (30-34); Mean Corpuscular Volume 98 fl (79-97); Red Blood Count 3.06 M/mm3 (3.65-5.03)
[2020-07-31 19:16] LABS: Calcium 8.1 mg/dL (8.4-10.2); Platelet Count 67 K/mm3 (140-440)
[2020-08-01] MEDS: DEXTROSE 10% IN WATER 1,000 ML IV SCH ×2 (04:09→18:08)
--- NOTE | 2020-08-01 04:57 | Progress Note ---
Assessment and Plan The high probability of a clinically significant, sudden or life threatening deterioration of the [neuro, cardiac, renal, pulmonary] system(s) required my full and direct attention, intervention and personal management. The aggregate critical care time was [35] minutes. This time is in addition to time spent performing reported procedures but includes the following: [x] Data Review and interpretation [x] Patient assessment and monitoring of vital signs [x] Documentation [x] Medication orders and management - Patient Problems --Anoxic encephalopathy High possibility given cardiac arrest and respiratory failure EEG requested --Severe sepsis with septic shock Current Visit: Yes Status: Acute Plan to address problem: Continue IV antibiotics --Acute respiratory failure Current Visit: Yes Status: Acute Qualifiers: Respiratory failure complication: hypoxia Qualified Code(s): J96.01 - Acute respiratory failure with hypoxia Plan to address problem: Try weaning from ventilator support (3) Acute liver failure Current Visit: Yes Status: Acute Plan to address problem: Supportive care, GI team consulted. Pt has poor prognosis, and currently unstable for transfer. --Metabolic acidosis Current Visit: Yes Status: Acute Plan to address problem: BMP, IV bicarbonate therapy, repeat BMP --UTI (urinary tract infection) Current Visit: Yes Status: Acute Qualifiers: Encounter type: initial encounter Plan to address problem: IV antibiotic therapy, supportive care. -- Acute kidney injury (RINA) with acute tubular necrosis (ATN) Current Visit: Yes Status: Acute Plan to address problem: Nephrology team consulted, IV fluid resuscitation therapy, monitor urine output every shift, monitor fluid balance, supportive care. --Cardiac arrest Current Visit: Yes Status: Acute Plan to address problem: Patient experienced cardiac arrest overnight. Patient treated with ACLS protocol with eventual return of perfusing cardiac rhythm. Patient has poor prognosis. --Toxic metabolic encephalopathy Current Visit: Yes Status: Acute Plan to address problem: CT scan head, when medically stable, supportive care, continue medical management. Suspect anoxic brain injury. -- Advance care planning Current Visit: Yes Status: Acute Plan to address problem: Disease education conducted, patient is full code, patient prognosis discussed with patient mother Tete Gao as well as patient xiomara today., patient family informed the patient shows no sign of brain function and is on multiple medications to maintain her current status. Patient family informed that patient has experienced nonsurvivable physiologic insult and has suffered anoxic brain injury. Patient family acknowledges prognosis but declines to make decision for gait regarding withdrawal of care due to patient's 5 children and that the need for necessary arrangements to be made for the care of the children. Awaiting decision on withdrawal of care. . Patient family informed of care plan. +60 minutes. -- DVT prophylaxis Current Visit: Yes Status: Acute Plan to address problem: SCD to bilateral lower extremities while in bed Subjective Date of service: 07/31/20 Principal diagnosis: Sepsis, anoxic encephalopathy Interval history: History Interval history: 29 YO Female HD #9 with Severe Sepsis complicated by Shock, Fulminant Hepatic Failure, ETOH Dependence, RINA with ATN, Toxic Metabolic Encephalopathy, Elevated INR, Metabolic Acidosis, Acute Respiratory Failure S/P Cardiac Arrest, Anoxic Brain Injury. Patient is critically ill and has very poor prognosis. Patient currently intubated and on ventilatory support. Patient has poor prognosis. No significant overnight improvement. Patient prognosis discussed again with patient mother and fianc. Patient family acknowledges understanding patient condition and prognosis. 07/31/2020 Patient unresponsive Anoxic encephalopathy Objective - Exam Narrative Exam: Patient intubated - Constitutional Vitals: Vital Signs - 12hr 07/31/20 07/31/20 07/31/20 17:00 17:15 17:30 Temperature Pulse Rate 62 62 61 Pulse Rate [ From Monitor] Respiratory 18 18 18 Rate Blood Pressure 131/87 128/85 130/86 O2 Sat by Pulse 97 97 97 Oximetry 07/31/20 07/31/20 07/31/20 17:45 18:00 18:15 Temperature Pulse Rate 61 60 60 Pulse Rate [ From Monitor] Respiratory 18 18 18 Rate Blood Pressure 131/90 128/85 130/89 O2 Sat by Pulse 97 96 96 Oximetry 07/31/20 07/31/20 07/31/20 18:30 18:45 19:00 Temperature Pulse Rate 60 59 L 58 L Pulse Rate [ From Monitor] Respiratory 18 18 18 Rate Blood Pressure 134/88 139/96 127/82 O2 Sat by Pulse 97 95 95 Oximetry 07/31/20 07/31/20 07/31/20 19:15 19:30 19:45 Temperature Pulse Rate 58 L 58 L 58 L Pulse Rate [ From Monitor] Respiratory 18 18 18 Rate Blood Pressure 133/89 132/89 136/93 O2 Sat by Pulse 96 96 96 Oximetry 07/31/20 07/31/20 07/31/20 19:56 20:00 20:15 Temperature 97.2 F L Pulse Rate 57 L 57 L Pulse Rate [ 57 L From Monitor] Respiratory 18 18 Rate Blood Pressure 136/93 135/94 O2 Sat by Pulse 97 96 Oximetry 07/31/20 07/31/20 07/31/20 20:30 20:45 20:55 Temperature Pulse Rate 56 L 56 L 56 L Pulse Rate [ From Monitor] Respiratory 18 18 Rate Blood Pressure 136/93 135/96 135/96 O2 Sat by Pulse 96 96 96 Oximetry 07/31/20 07/31/20 07/31/20 21:01 21:15 21:30 Temperature Pulse Rate 56 L 56 L 55 L Pulse Rate [ From Monitor] Respiratory 18 18 18 Rate Blood Pressure 147/108 142/97 130/87 O2 Sat by Pulse 100 97 95 Oximetry 07/31/20 07/31/20 07/31/20 21:45 22:00 22:15 Temperature Pulse Rate 55 L 54 L 54 L Pulse Rate [ From Monitor] Respiratory 18 18 18 Rate Blood Pressure 138/94 133/89 139/96 O2 Sat by Pulse 95 95 96 Oximetry 07/31/20 07/31/20 07/31/20 22:30 22:45 23:00 Temperature Pulse Rate 54 L 53 L 54 L Pulse Rate [ From Monitor] Respiratory 18 18 18 Rate Blood Pressure 137/94 140/95 145/98 O2 Sat by Pulse 96 96 96 Oximetry 07/31/20 07/31/20 07/31/20 23:15 23:31 23:45 Temperature Pulse Rate 53 L 54 L 53 L Pulse Rate [ From Monitor] Respiratory 18 18 18 Rate Blood Pressure 144/100 173/115 173/115 O2 Sat by Pulse 97 98 96 Oximetry 07/31/20 08/01/20 08/01/20 23:55 00:00 00:15 Temperature 96.8 F L Pulse Rate 53 L 53 L Pulse Rate [ 53 L From Monitor] Respiratory 18 18 Rate Blood Pressure 158/106 160/108 O2 Sat by Pulse 96 97 Oximetry 08/01/20 08/01/20 08/01/20 00:31 00:45 01:01 Temperature Pulse Rate 52 L 53 L 52 L Pulse Rate [ From Monitor] Respiratory 18 18 18 Rate Blood Pressure 161/101 156/109 156/109 O2 Sat by Pulse 95 96 96 Oximetry 08/01/20 08/01/20 08/01/20 01:15 01:30 01:45 Temperature Pulse Rate 52 L 52 L 52 L Pulse Rate [ From Monitor] Respiratory 18 18 18 Rate Blood Pressure 160/110 153/109 158/107 O2 Sat by Pulse 96 96 96 Oximetry 08/01/20 08/01/20 08/01/20 02:00 02:15 02:30 Temperature Pulse Rate 53 L 51 L 53 L Pulse Rate [ From Monitor] Respiratory 18 18 18 Rate Blood Pressure 169/115 169/115 172/113 O2 Sat by Pulse 97 95 99 Oximetry 08/01/20 08/01/20 08/01/20 02:45 03:01 03:15 Temperature Pulse Rate 50 L 50 L 50 L Pulse Rate [ From Monitor] Respiratory 18 18 18 Rate Blood Pressure 149/100 147/106 140/100 O2 Sat by Pulse 97 97 97 Oximetry 08/01/20 08/01/20 08/01/20 03:30 03:45 04:00 Temperature Pulse Rate 50 L 49 L Pulse Rate [ 50 L From Monitor] Respiratory 18 18 18 Rate Blood Pressure 150/103 148/104 O2 Sat by Pulse 97 98 97 Oximetry 08/01/20 08/01/20 08/01/20 04:11 04:16 04:33 Temperature Pulse Rate 50 L 50 L 50 L Pulse Rate [ From Monitor] Respiratory 18 18 Rate Blood Pressure 156/104 136/98 O2 Sat by Pulse 98 97 97 Oximetry General appearance: Present: no acute distress, well-nourished - EENT Eyes: PERRL, EOM intact ENT: hearing intact, clear oral mucosa Ears: bilateral: normal - Neck Neck: supple, normal ROM - Respiratory Respiratory effort: normal Respiratory: bilateral: CTA - Breasts Breasts: normal - Cardiovascular Heart rate: 78 Rhythm: regular Heart Sounds: Present: S1 & S2. Absent: gallop, rub Extremities: pulses intact, No edema, normal color, Full ROM - Gastrointestinal General gastrointestinal: Present: soft, non-tender, non-distended, normal bowel sounds - Genitourinary Female genitourinary: normal - Integumentary Integumentary: clear, warm, dry - Musculoskeletal Musculoskeletal: generalized weakness - Neurologic Neurologic: other (Unresponsive) - Psychiatric Psychiatric: other - Labs CBC & Chem 7: 07/31/20 18:43 07/31/20 18:43 Labs: Abnormal lab results 07/31/20 07/31/20 07/31/20 Range/Units 05:14 17:39 18:43 WBC 25.2 H (4.5-11.0) K/mm3 RBC 3.06 L (3.65-5.03) M/mm3 Hct 30.0 L (30.3-42.9) % MCV 98 H (79-97) fl MCH 34 H (28-32) pg MCHC 35 H (30-34) % RDW 19.0 H (13.2-15.2) % Plt Count 67 L (140-440) K/mm3 Sodium (137-145) mmol/L Chloride (98-107) mmol/L Carbon Dioxide (22-30) mmol/L BUN (7-17) mg/dL Creatinine (0.6-1.2) mg/dL Glucose (65-100) mg/dL POC Glucose 118 H 111 H (70-105) mg/dL Calcium (8.4-10.2) mg/dL 07/31/20 07/31/20 07/31/20 Range/Units 18:43 21:14 23:28 WBC (4.5-11.0) K/mm3 RBC (3.65-5.03) M/mm3 Hct (30.3-42.9) % MCV (79-97) fl MCH (28-32) pg MCHC (30-34) % RDW (13.2-15.2) % Plt Count (140-440) K/mm3 Sodium 149 H (137-145) mmol/L Chloride 120.1 H (98-107) mmol/L Carbon Dioxide 18 L (22-30) mmol/L BUN 64 H (7-17) mg/dL Creatinine 2.0 H (0.6-1.2) mg/dL Glucose 132 H (65-100) mg/dL POC Glucose 117 H 123 H (70-105) mg/dL Calcium 8.1 L (8.4-10.2) mg/dL 08/01/20 Range/Units 01:57 WBC (4.5-11.0) K/mm3 RBC (3.65-5.03) M/mm3 Hct (30.3-42.9) % MCV (79-97) fl MCH (28-32) pg MCHC (30-34) % RDW (13.2-15.2) % Plt Count (140-440) K/mm3 Sodium (137-145) mmol/L Chloride (98-107) mmol/L Carbon Dioxide (22-30) mmol/L BUN (7-17) mg/dL Creatinine (0.6-1.2) mg/dL Glucose (65-100) mg/dL POC Glucose 119 H (70-105) mg/dL Calcium (8.4-10.2) mg/dL HEART Score - HEART Score Troponin: Troponin T < 0.010 ng/mL (0.00-0.029) 07/16/20 20:47
[2020-08-01] MEDS: MIDODRINE 5 MG TAB PO SCH (06:10)
--- NOTE | 2020-08-01 08:08 | Progress Note ---
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 08/01/20: Day 13 of intubation. Now hypothermic and requiring more oxygen. Juan M ng more frequent runs of bradycardia. Given her current clinical state with MRI findings, this is most compatible with brain , especially with the lack of flow low flow state seen on MRI. Spoke with neurology again today and ask them to reach out to the again to explain that not only this is a poor prognosis but likely brain . Can do apnea tests if needed vs brain flow study. Most likely is brain flow study is done, will need rads to read and not sure if they are here today. 07/31/20: BP stable, now off vasopressors. Going for MRI today. Reattempt tube feeding post MRI. Needs to have labs checked to evaluate platelets, can order for tomorrow. Today is day 12 on intubation. I spoke with neuro over the phone this am and ask that they have another conversation with the mother in regards to her prognosis of waking up. She is also starting to have more sequale from prolonged liver disease and ICU stay. Her overall prognosis is extremely poor. 07/30/20: BP better with midodrine, thanks to pharmacy recs. Will turn off vasopressin and attempt to get MRI today. Will then lean on Neuro to help us with ultimate prognosis to help family make decisions about next steps. Today is day 11 of intubation. Family meeting needs to take place this week. If family wishes to continue aggressively, she will need trach and peg. Patient has been having nasal and oral bleeding. Platelets have been low but up to 55 now. No indication for blood or platelet transfusion. 07/29/20: Still no MRI yet. Remains unresponsive. Spoke with pharmacy today will try midodrine with reglan to see if we can wean pressors. No labs checked today. Renal function was worsening as of yesterday. Will order labs for tomorrow. Today is day 10 of intubation. Await further input from neurology. Need to set up family meeting soon to discuss next steps and goals of care. Overall prognosis is poor. 07/28/20: Await MRI. EEG draft from yesterday shows severe encephalopathy with multiple etiologies. Will attempt trickle feeds today despite 2 pressor need. If she does not tolerate, will talk to nutrition about TPN. Need neurology input once MRI done and read as the overall prognosis here appears to be poor and decisions need to be made in regards to next steps of care. Patient has been intubated now since 07/19/2020 (Today is day 9 of intubation). If family requests continued aggressive care, patient will need trach and peg placement, however, it does not appear that she can be weaned off of vasopressors. 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 Continue supportive measures. Clinical picture appears to be worsening. Family awaiting neurology input and they need imaging. 07/26/2020: Await MRI. Continue supportive care. Hopeful to wean off levo so we can start feeding patient later today. Will replace lytes and give more free water. Prognosis still appears to be very very poor from a neurological standpoint. 07/25/2020: Reviewed consultants notes on yesterday. Neuro has requested EEG to rule out status. Will speak with them in regards to MRI. Patient is stable enough for travel as pressor requirement is minimal and vent requirement is minimal. No objection to travel. Given hypoglycemia, will change fingersticks to q1 hour. Unable to feed secondary to pressor requirement or this could resultant of liver impairment. Overall prognosis appears to be poor. ] Continue supportive vent care. Not weanable secondary to mental state. Will await family meeting Wean Vasopressors for MAPS >65 Once down to one pressor can feed Will obtain formal neurology consult today May need to consider EEG Overall prognosis appears to be very poor. CCT 31 minutes. Subjective Date of service: 08/01/20 Principal diagnosis: Sepsis, anoxic encephalopathy Interval history: MRI done and confirms what was seen on CT several days ago. Per neurology left voicemails. clinically patient has gotten worse. Now hypothermic and requiring more oxygen. Remains unresponsive. Objective Vital Signs - 12hr 07/31/20 07/31/20 07/31/20 20:15 20:30 20:45 Temperature Pulse Rate 57 L 56 L 56 L Pulse Rate [ From Monitor] Respiratory 18 18 18 Rate Blood Pressure 135/94 136/93 135/96 O2 Sat by Pulse 96 96 96 Oximetry 07/31/20 07/31/20 07/31/20 20:55 21:01 21:15 Temperature Pulse Rate 56 L 56 L 56 L Pulse Rate [ From Monitor] Respiratory 18 18 Rate Blood Pressure 135/96 147/108 142/97 O2 Sat by Pulse 96 100 97 Oximetry 07/31/20 07/31/20 07/31/20 21:30 21:45 22:00 Temperature Pulse Rate 55 L 55 L 54 L Pulse Rate [ From Monitor] Respiratory 18 18 18 Rate Blood Pressure 130/87 138/94 133/89 O2 Sat by Pulse 95 95 95 Oximetry 07/31/20 07/31/20 07/31/20 22:15 22:30 22:45 Temperature Pulse Rate 54 L 54 L 53 L Pulse Rate [ From Monitor] Respiratory 18 18 18 Rate Blood Pressure 139/96 137/94 140/95 O2 Sat by Pulse 96 96 96 Oximetry 07/31/20 07/31/20 07/31/20 23:00 23:15 23:31 Temperature Pulse Rate 54 L 53 L 54 L Pulse Rate [ From Monitor] Respiratory 18 18 18 Rate Blood Pressure 145/98 144/100 173/115 O2 Sat by Pulse 96 97 98 Oximetry 07/31/20 07/31/20 08/01/20 23:45 23:55 00:00 Temperature 96.8 F L Pulse Rate 53 L 63 Pulse Rate [ 53 L From Monitor] Respiratory 18 18 Rate Blood Pressure 173/115 158/106 O2 Sat by Pulse 96 96 Oximetry 08/01/20 08/01/20 08/01/20 00:15 00:31 00:45 Temperature Pulse Rate 53 L 52 L 53 L Pulse Rate [ From Monitor] Respiratory 18 18 18 Rate Blood Pressure 160/108 161/101 156/109 O2 Sat by Pulse 97 95 96 Oximetry 08/01/20 08/01/20 08/01/20 01:01 01:15 01:30 Temperature Pulse Rate 52 L 52 L 52 L Pulse Rate [ From Monitor] Respiratory 18 18 18 Rate Blood Pressure 156/109 160/110 153/109 O2 Sat by Pulse 96 96 96 Oximetry 08/01/20 08/01/20 08/01/20 01:45 02:00 02:15 Temperature Pulse Rate 52 L 53 L 51 L Pulse Rate [ From Monitor] Respiratory 18 18 18 Rate Blood Pressure 158/107 169/115 169/115 O2 Sat by Pulse 96 97 95 Oximetry 08/01/20 08/01/20 08/01/20 02:30 02:45 03:01 Temperature Pulse Rate 53 L 50 L 50 L Pulse Rate [ From Monitor] Respiratory 18 18 18 Rate Blood Pressure 172/113 149/100 147/106 O2 Sat by Pulse 99 97 97 Oximetry 08/01/20 08/01/20 08/01/20 03:15 03:30 03:45 Temperature Pulse Rate 50 L 50 L 49 L Pulse Rate [ From Monitor] Respiratory 18 18 18 Rate Blood Pressure 140/100 150/103 148/104 O2 Sat by Pulse 97 97 98 Oximetry 08/01/20 08/01/20 08/01/20 04:00 04:11 04:16 Temperature 96.4 F L Pulse Rate 50 L 50 L 50 L Pulse Rate [ 50 L From Monitor] Respiratory 18 18 18 Rate Blood Pressure 156/104 O2 Sat by Pulse 97 98 97 Oximetry 08/01/20 08/01/20 08/01/20 04:31 04:33 04:45 Temperature Pulse Rate 50 L 50 L 51 L Pulse Rate [ From Monitor] Respiratory 18 18 Rate Blood Pressure 136/98 136/98 137/98 O2 Sat by Pulse 96 97 96 Oximetry 08/01/20 08/01/20 08/01/20 05:01 05:15 05:31 Temperature Pulse Rate 52 L 53 L 53 L Pulse Rate [ From Monitor] Respiratory 18 18 18 Rate Blood Pressure 136/88 131/87 127/83 O2 Sat by Pulse 95 95 94 Oximetry 08/01/20 08/01/20 05:45 06:01 Temperature Pulse Rate 55 L 56 L Pulse Rate [ From Monitor] Respiratory 18 18 Rate Blood Pressure 132/87 126/78 O2 Sat by Pulse 94 93 Oximetry Constitutional: comatose Eyes: icteric ENT: other (orally intubated, no sedation) Neck: supple Effort: normal Ascultation: Bilateral: rales, rhonchi (anteriorly), other (coarse BS bilaterally) Cardiovascular: other (tachy, RR; no mrg) Gastrointestinal: normoactive bowel sounds, soft, non-tender, non-distended Integumentary: normal Extremities: no cyanosis, edema (1+ bilateral LE edema) Neurologic: other (unresponsive) Psychiatric: other (unable to assess) CBC and BMP: 07/31/20 18:43 07/31/20 18:43 ABG, PT/INR, D-dimer: ABG ABG pH 7.412 (7.320-7.450) 07/28/20 05:09 POC ABG pCO2 33.4 mmHg (32.0-48.0) 07/28/20 05:09 ABG pCO2 31.2 mm Hg 07/22/20 04:25 POC ABG pO2 67.3 mmHg (83-108) L 07/28/20 05:09 ABG pO2 104.9 mm Hg (80.0-90.0) H 07/22/20 04:25 POC ABG HCO3 20.8 07/28/20 05:09 ABG O2 Saturation 98.1 % (95.0-99.0) 07/22/20 04:25 PT/INR, D-dimer PT 21.2 Sec. (12.2-14.9) H 07/26/20 14:47 INR 1.83 (0.87-1.13) H 07/26/20 14:47 Abnormal lab findings: Abnormal Labs 07/16/20 07/16/20 07/16/20 03:54 20:47 20:47 WBC 33.9 H RBC Hgb Hct MCV 107 H MCH 34 H MCHC RDW 22.0 H Plt Count Lymph % (Auto) Cole % (Auto) Lymph # (Auto) Cole # (Auto) Eos # (Auto) Seg Neutrophils % Seg Neuts % (Manual) 89.0 H Lymphocytes % (Manual) 2.0 L Monocytes % (Manual) Nucleated RBC % 1.0 H Seg Neutrophils # Seg Neutrophils # Man 30.2 H Lymphocytes # (Manual) 0.7 L Monocytes # (Manual) 1.4 H Eosinophils # (Manual) PT INR ABG pH POC ABG pCO2 POC ABG pO2 ABG pO2 ABG Base Excess ABG Hemoglobin ABG Oxyhemoglobin ABG Sodium ABG Potassium ABG Chloride ABG Glucose VBG pH Oxyhemoglobin Carboxyhemoglobin Sodium Potassium 5.1 H Chloride Carbon Dioxide 9 L* BUN 20 H Creatinine 1.9 H Glucose 30 L* POC Glucose Lactic Acid Calcium Phosphorus Magnesium Total Bilirubin 5.40 H Direct Bilirubin AST 22359 H ALT 1829 H Alkaline Phosphatase 141 H Ammonia Total Creatine Kinase C-Reactive Protein Total Protein Albumin Lipase 9 L Arterial Blood Glucose Arterial Blood Ionized Calcium Urine WBC (Auto) 57.0 H U Epithel Cells (Auto) 23.0 H Acetaminophen Complement C3 Complement C4 Syphilis IgG Antibody HSV I Specific Ab Crossmatch 07/16/20 07/16/20 07/16/20 20:47 22:43 23:06 WBC RBC Hgb Hct MCV MCH MCHC RDW Plt Count Lymph % (Auto) Cole % (Auto) Lymph # (Auto) Cole # (Auto) Eos # (Auto) Seg Neutrophils % Seg Neuts % (Manual) Lymphocytes % (Manual) Monocytes % (Manual) Nucleated RBC % Seg Neutrophils # Seg Neutrophils # Man Lymphocytes # (Manual) Monocytes # (Manual) Eosinophils # (Manual) PT INR ABG pH POC ABG pCO2 POC ABG pO2 ABG pO2 ABG Base Excess ABG Hemoglobin ABG Oxyhemoglobin ABG Sodium ABG Potassium ABG Chloride ABG Glucose VBG pH Oxyhemoglobin Carboxyhemoglobin Sodium Potassium Chloride Carbon Dioxide BUN Creatinine Glucose POC Glucose 140 H Lactic Acid 14.90 H* Calcium Phosphorus Magnesium Total Bilirubin Direct Bilirubin AST ALT Alkaline Phosphatase Ammonia Total Creatine Kinase 230 H C-Reactive Protein Total Protein Albumin Lipase Arterial Blood Glucose Arterial Blood Ionized Calcium Urine WBC (Auto) U Epithel Cells (Auto) Acetaminophen Complement C3 Complement C4 Syphilis IgG Antibody HSV I Specific Ab Crossmatch 07/17/20 07/17/20 07/17/20 01:46 01:46 04:55 WBC RBC Hgb Hct MCV MCH MCHC RDW Plt Count Lymph % (Auto) Cole % (Auto) Lymph # (Auto) Cole # (Auto) Eos # (Auto) Seg Neutrophils % Seg Neuts % (Manual) Lymphocytes % (Manual) Monocytes % (Manual) Nucleated RBC % Seg Neutrophils # Seg Neutrophils # Man Lymphocytes # (Manual) Monocytes # (Manual) Eosinophils # (Manual) PT INR ABG pH POC ABG pCO2 POC ABG pO2 ABG pO2 ABG Base Excess ABG Hemoglobin ABG Oxyhemoglobin ABG Sodium ABG Potassium ABG Chloride ABG Glucose VBG pH 7.085 L* Oxyhemoglobin Carboxyhemoglobin Sodium Potassium Chloride Carbon Dioxide BUN Creatinine Glucose POC Glucose Lactic Acid 13.20 H* 12.00 H* Calcium Phosphorus Magnesium Total Bilirubin Direct Bilirubin AST ALT Alkaline Phosphatase Ammonia Total Creatine Kinase C-Reactive Protein Total Protein Albumin Lipase Arterial Blood Glucose Arterial Blood Ionized Calcium Urine WBC (Auto) U Epithel Cells (Auto) Acetaminophen Complement C3 Complement C4 Syphilis IgG Antibody HSV I Specific Ab Crossmatch 07/17/20 07/17/20 07/17/20 06:05 07:33 07:48 WBC RBC Hgb Hct MCV MCH MCHC RDW Plt Count Lymph % (Auto) Cole % (Auto) Lymph # (Auto) Cole # (Auto) Eos # (Auto) Seg Neutrophils % Seg Neuts % (Manual) Lymphocytes % (Manual) Monocytes % (Manual) Nucleated RBC % Seg Neutrophils # Seg Neutrophils # Man Lymphocytes # (Manual) Monocytes # (Manual) Eosinophils # (Manual) PT INR ABG pH POC ABG pCO2 POC ABG pO2 ABG pO2 ABG Base Excess ABG Hemoglobin ABG Oxyhemoglobin ABG Sodium ABG Potassium ABG Chloride ABG Glucose VBG pH Oxyhemoglobin Carboxyhemoglobin Sodium Potassium Chloride Carbon Dioxide BUN Creatinine Glucose POC Glucose 59 L 125 H Lactic Acid 12.00 H* Calcium Phosphorus Magnesium Total Bilirubin Direct Bilirubin AST ALT Alkaline Phosphatase Ammonia Total Creatine Kinase C-Reactive Protein Total Protein Albumin Lipase Arterial Blood Glucose Arterial Blood Ionized Calcium Urine WBC (Auto) U Epithel Cells (Auto) Acetaminophen Complement C3 Complement C4 Syphilis IgG Antibody HSV I Specific Ab Crossmatch 07/17/20 07/17/20 07/17/20 09:23 09:23 09:24 WBC RBC Hgb Hct MCV MCH MCHC RDW Plt Count Lymph % (Auto) Cole % (Auto) Lymph # (Auto) Cole # (Auto) Eos # (Auto) Seg Neutrophils % Seg Neuts % (Manual) Lymphocytes % (Manual) Monocytes % (Manual) Nucleated RBC % Seg Neutrophils # Seg Neutrophils # Man Lymphocytes # (Manual) Monocytes # (Manual) Eosinophils # (Manual) PT INR ABG pH POC ABG pCO2 POC ABG pO2 ABG pO2 ABG Base Excess ABG Hemoglobin ABG Oxyhemoglobin ABG Sodium ABG Potassium ABG Chloride ABG Glucose VBG pH Oxyhemoglobin Carboxyhemoglobin Sodium Potassium 5.7 H Chloride 107.6 H Carbon Dioxide 13 L BUN 24 H Creatinine 2.1 H Glucose 121 H POC Glucose Lactic Acid Calcium 6.0 L D Phosphorus Magnesium Total Bilirubin 3.80 H Direct Bilirubin AST 8355 H ALT 1522 H Alkaline Phosphatase Ammonia Total Creatine Kinase 332 H C-Reactive Protein Total Protein 4.7 L D Albumin 2.8 L Lipase Arterial Blood Glucose Arterial Blood Ionized Calcium Urine WBC (Auto) U Epithel Cells (Auto) Acetaminophen 5.0 L Complement C3 Complement C4 Syphilis IgG Antibody HSV I Specific Ab Crossmatch 07/17/20 07/17/20 07/17/20 11:08 11:08 11:08 WBC RBC Hgb Hct MCV MCH MCHC RDW Plt Count Lymph % (Auto) Cole % (Auto) Lymph # (Auto) Cole # (Auto) Eos # (Auto) Seg Neutrophils % Seg Neuts % (Manual) Lymphocytes % (Manual) Monocytes % (Manual) Nucleated RBC % Seg Neutrophils # Seg Neutrophils # Man Lymphocytes # (Manual) Monocytes # (Manual) Eosinophils # (Manual) PT 60.1 H INR > 17.67 H* ABG pH POC ABG pCO2 POC ABG pO2 ABG pO2 ABG Base Excess ABG Hemoglobin ABG Oxyhemoglobin ABG Sodium ABG Potassium ABG Chloride ABG Glucose VBG pH Oxyhemoglobin Carboxyhemoglobin Sodium Potassium Chloride Carbon Dioxide BUN Creatinine Glucose POC Glucose Lactic Acid 9.80 H* Calcium Phosphorus Magnesium Total Bilirubin Direct Bilirubin AST ALT Alkaline Phosphatase Ammonia Total Creatine Kinase C-Reactive Protein Total Protein Albumin Lipase Arterial Blood Glucose Arterial Blood Ionized Calcium Urine WBC (Auto) U Epithel Cells (Auto) Acetaminophen Complement C3 Complement C4 Syphilis IgG Antibody Reactive A HSV I Specific Ab Crossmatch 07/17/20 07/17/20 07/17/20 11:08 14:34 14:34 WBC 27.2 H RBC 2.66 L Hgb 9.1 L D Hct 27.8 L D MCV 104 H MCH 34 H MCHC RDW 22.6 H Plt Count Lymph % (Auto) Cole % (Auto) Lymph # (Auto) Cole # (Auto) Eos # (Auto) Seg Neutrophils % Seg Neuts % (Manual) Lymphocytes % (Manual) Monocytes % (Manual) Nucleated RBC % Seg Neutrophils # Seg Neutrophils # Man Lymphocytes # (Manual) Monocytes # (Manual) Eosinophils # (Manual) PT INR ABG pH POC ABG pCO2 POC ABG pO2 ABG pO2 ABG Base Excess ABG Hemoglobin ABG Oxyhemoglobin ABG Sodium ABG Potassium ABG Chloride ABG Glucose VBG pH Oxyhemoglobin Carboxyhemoglobin Sodium Potassium 5.4 H Chloride 107.7 H Carbon Dioxide 16 L BUN 26 H Creatinine 2.3 H Glucose 151 H POC Glucose Lactic Acid Calcium 5.8 L* Phosphorus Magnesium Total Bilirubin 3.30 H Direct Bilirubin AST 6751 H ALT 1325 H Alkaline Phosphatase Ammonia Total Creatine Kinase C-Reactive Protein Total Protein 4.4 L Albumin 2.5 L Lipase Arterial Blood Glucose Arterial Blood Ionized Calcium Urine WBC (Auto) U Epithel Cells (Auto) Acetaminophen Complement C3 Complement C4 Syphilis IgG Antibody HSV I Specific Ab 5.23 H Crossmatch 07/17/20 07/17/20 07/17/20 14:34 14:34 14:34 WBC RBC Hgb Hct MCV MCH MCHC RDW Plt Count Lymph % (Auto) Cole % (Auto) Lymph # (Auto) Cole # (Auto) Eos # (Auto) Seg Neutrophils % Seg Neuts % (Manual) Lymphocytes % (Manual) Monocytes % (Manual) Nucleated RBC % Seg Neutrophils # Seg Neutrophils # Man Lymphocytes # (Manual) Monocytes # (Manual) Eosinophils # (Manual) PT 70.6 H INR 8.29 H* ABG pH POC ABG pCO2 POC ABG pO2 ABG pO2 ABG Base Excess ABG Hemoglobin ABG Oxyhemoglobin ABG Sodium ABG Potassium ABG Chloride ABG Glucose VBG pH Oxyhemoglobin Carboxyhemoglobin Sodium Potassium Chloride Carbon Dioxide BUN Creatinine Glucose POC Glucose Lactic Acid 7.60 H* Calcium Phosphorus Magnesium Total Bilirubin Direct Bilirubin AST ALT Alkaline Phosphatase Ammonia 75.0 H Total Creatine Kinase C-Reactive Protein Total Protein Albumin Lipase Arterial Blood Glucose Arterial Blood Ionized Calcium Urine WBC (Auto) U Epithel Cells (Auto) Acetaminophen Complement C3 Complement C4 Syphilis IgG Antibody HSV I Specific Ab Crossmatch 07/17/20 07/17/20 07/18/20 16:45 16:45 04:23 WBC 22.7 H RBC 2.47 L Hgb 8.5 L Hct 25.5 L MCV 103 H MCH 35 H MCHC RDW 21.7 H Plt Count Lymph % (Auto) 5.3 L Cole % (Auto) Lymph # (Auto) Cole # (Auto) Eos # (Auto) 0.7 H Seg Neutrophils % 88.2 H Seg Neuts % (Manual) Lymphocytes % (Manual) Monocytes % (Manual) Nucleated RBC % Seg Neutrophils # 20.0 H Seg Neutrophils # Man Lymphocytes # (Manual) Monocytes # (Manual) Eosinophils # (Manual) PT INR ABG pH POC ABG pCO2 POC ABG pO2 ABG pO2 ABG Base Excess ABG Hemoglobin ABG Oxyhemoglobin ABG Sodium ABG Potassium ABG Chloride ABG Glucose VBG pH Oxyhemoglobin Carboxyhemoglobin Sodium Potassium Chloride 107.9 H Carbon Dioxide 17 L BUN 27 H Creatinine 2.5 H Glucose 144 H POC Glucose Lactic Acid 7.00 H* Calcium 6.0 L Phosphorus Magnesium Total Bilirubin 3.30 H Direct Bilirubin AST 6456 H ALT 1286 H Alkaline Phosphatase Ammonia Total Creatine Kinase C-Reactive Protein Total Protein 4.2 L Albumin 2.5 L Lipase Arterial Blood Glucose Arterial Blood Ionized Calcium Urine WBC (Auto) U Epithel Cells (Auto) Acetaminophen Complement C3 Complement C4 Syphilis IgG Antibody HSV I Specific Ab Crossmatch 07/18/20 07/18/20 07/18/20 04:23 04:23 04:23 WBC RBC Hgb Hct MCV MCH MCHC RDW Plt Count Lymph % (Auto) Cole % (Auto) Lymph # (Auto) Cole # (Auto) Eos # (Auto) Seg Neutrophils % Seg Neuts % (Manual) Lymphocytes % (Manual) Monocytes % (Manual) Nucleated RBC % Seg Neutrophils # Seg Neutrophils # Man Lymphocytes # (Manual) Monocytes # (Manual) Eosinophils # (Manual) PT 52.9 H INR 5.78 H* ABG pH POC ABG pCO2 POC ABG pO2 ABG pO2 ABG Base Excess ABG Hemoglobin ABG Oxyhemoglobin ABG Sodium ABG Potassium ABG Chloride ABG Glucose VBG pH Oxyhemoglobin Carboxyhemoglobin Sodium Potassium Chloride 110.0 H Carbon Dioxide 17 L BUN 33 H Creatinine 3.0 H Glucose 110 H POC Glucose Lactic Acid 5.40 H* Calcium 6.4 L Phosphorus Magnesium Total Bilirubin Direct Bilirubin AST ALT Alkaline Phosphatase Ammonia Total Creatine Kinase C-Reactive Protein Total Protein Albumin Lipase Arterial Blood Glucose Arterial Blood Ionized Calcium Urine WBC (Auto) U Epithel Cells (Auto) Acetaminophen Complement C3 Complement C4 Syphilis IgG Antibody HSV I Specific Ab Crossmatch 07/18/20 07/18/20 07/18/20 04:23 07:25 Unknown WBC RBC Hgb Hct MCV MCH MCHC RDW Plt Count Lymph % (Auto) Cole % (Auto) Lymph # (Auto) Cole # (Auto) Eos # (Auto) Seg Neutrophils % Seg Neuts % (Manual) Lymphocytes % (Manual) Monocytes % (Manual) Nucleated RBC % Seg Neutrophils # Seg Neutrophils # Man Lymphocytes # (Manual) Monocytes # (Manual) Eosinophils # (Manual) PT INR ABG pH POC ABG pCO2 POC ABG pO2 ABG pO2 ABG Base Excess ABG Hemoglobin ABG Oxyhemoglobin ABG Sodium ABG Potassium ABG Chloride ABG Glucose VBG pH Oxyhemoglobin Carboxyhemoglobin Sodium Potassium Chloride Carbon Dioxide BUN Creatinine Glucose POC Glucose Lactic Acid 5.50 H* 4.80 H* Calcium Phosphorus Magnesium Total Bilirubin Direct Bilirubin AST ALT Alkaline Phosphatase Ammonia 96.0 H Total Creatine Kinase C-Reactive Protein Total Protein Albumin Lipase Arterial Blood Glucose Arterial Blood Ionized Calcium Urine WBC (Auto) U Epithel Cells (Auto) Acetaminophen Complement C3 Complement C4 Syphilis IgG Antibody HSV I Specific Ab Crossmatch 07/18/20 07/18/20 07/19/20 Unknown Unknown 02:47 WBC RBC Hgb Hct MCV MCH MCHC RDW Plt Count Lymph % (Auto) Cole % (Auto) Lymph # (Auto) Cole # (Auto) Eos # (Auto) Seg Neutrophils % Seg Neuts % (Manual) Lymphocytes % (Manual) Monocytes % (Manual) Nucleated RBC % Seg Neutrophils # Seg Neutrophils # Man Lymphocytes # (Manual) Monocytes # (Manual) Eosinophils # (Manual) PT 37.3 H INR 3.73 H ABG pH POC ABG pCO2 21.1 L POC ABG pO2 61.7 L ABG pO2 ABG Base Excess ABG Hemoglobin 8.5 L ABG Oxyhemoglobin 88.1 L ABG Sodium ABG Potassium ABG Chloride 119.0 H ABG Glucose VBG pH Oxyhemoglobin Carboxyhemoglobin Sodium Potassium Chloride Carbon Dioxide BUN Creatinine Glucose POC Glucose Lactic Acid Calcium Phosphorus Magnesium Total Bilirubin 3.70 H Direct Bilirubin 3.0 H AST 2093 H ALT 822 H Alkaline Phosphatase Ammonia Total Creatine Kinase C-Reactive Protein Total Protein 4.0 L Albumin 2.5 L Lipase Arterial Blood Glucose Arterial Blood Ionized Calcium 4.0 L Urine WBC (Auto) U Epithel Cells (Auto) Acetaminophen Complement C3 Complement C4 Syphilis IgG Antibody HSV I Specific Ab Crossmatch 07/19/20 07/19/20 07/19/20 03:01 03:01 03:01 WBC 19.4 H RBC 2.50 L Hgb 8.5 L Hct 26.1 L MCV 104 H MCH 34 H MCHC RDW 22.3 H Plt Count Lymph % (Auto) 3.7 L Cole % (Auto) Lymph # (Auto) 0.7 L Cole # (Auto) 0.9 H Eos # (Auto) Seg Neutrophils % Seg Neuts % (Manual) Lymphocytes % (Manual) Monocytes % (Manual) Nucleated RBC % Seg Neutrophils # 17.7 H Seg Neutrophils # Man Lymphocytes # (Manual) Monocytes # (Manual) Eosinophils # (Manual) PT 35.0 H INR 3.45 H ABG pH POC ABG pCO2 POC ABG pO2 ABG pO2 ABG Base Excess ABG Hemoglobin ABG Oxyhemoglobin ABG Sodium ABG Potassium ABG Chloride ABG Glucose VBG pH Oxyhemoglobin Carboxyhemoglobin Sodium Potassium Chloride Carbon Dioxide BUN Creatinine Glucose POC Glucose Lactic Acid 5.90 H* Calcium Phosphorus Magnesium Total Bilirubin Direct Bilirubin AST ALT Alkaline Phosphatase Ammonia Total Creatine Kinase C-Reactive Protein Total Protein Albumin Lipase Arterial Blood Glucose Arterial Blood Ionized Calcium Urine WBC (Auto) U Epithel Cells (Auto) Acetaminophen Complement C3 Complement C4 Syphilis IgG Antibody HSV I Specific Ab Crossmatch 07/19/20 07/19/20 07/19/20 03:01 03:01 05:25 WBC RBC Hgb Hct MCV MCH MCHC RDW Plt Count Lymph % (Auto) Cole % (Auto) Lymph # (Auto) Cole # (Auto) Eos # (Auto) Seg Neutrophils % Seg Neuts % (Manual) Lymphocytes % (Manual) Monocytes % (Manual) Nucleated RBC % Seg Neutrophils # Seg Neutrophils # Man Lymphocytes # (Manual) Monocytes # (Manual) Eosinophils # (Manual) PT INR ABG pH POC ABG pCO2 POC ABG pO2 ABG pO2 ABG Base Excess ABG Hemoglobin ABG Oxyhemoglobin ABG Sodium ABG Potassium ABG Chloride ABG Glucose VBG pH Oxyhemoglobin Carboxyhemoglobin Sodium 149 H Potassium Chloride 116.6 H Carbon Dioxide 14 L BUN 48 H Creatinine 2.5 H Glucose POC Glucose 43 L Lactic Acid Calcium 7.4 L D Phosphorus Magnesium Total Bilirubin 3.70 H Direct Bilirubin AST 1730 H ALT 751 H Alkaline Phosphatase Ammonia 126.0 H Total Creatine Kinase C-Reactive Protein Total Protein 4.3 L Albumin 2.4 L Lipase Arterial Blood Glucose Arterial Blood Ionized Calcium Urine WBC (Auto) U Epithel Cells (Auto) Acetaminophen Complement C3 Complement C4 Syphilis IgG Antibody HSV I Specific Ab Crossmatch 07/19/20 07/19/20 07/19/20 05:41 05:41 05:41 WBC 15.9 H RBC 1.80 L Hgb 6.2 L Hct 19.7 L* D MCV 109 H MCH 35 H MCHC RDW 22.7 H Plt Count 99 L Lymph % (Auto) 9.7 L Cole % (Auto) 8.3 H Lymph # (Auto) Cole # (Auto) 1.3 H Eos # (Auto) Seg Neutrophils % 81.2 H Seg Neuts % (Manual) 85.0 H Lymphocytes % (Manual) 12.0 L Monocytes % (Manual) Nucleated RBC % Seg Neutrophils # 12.9 H Seg Neutrophils # Man 13.5 H Lymphocytes # (Manual) Monocytes # (Manual) Eosinophils # (Manual) PT 51.8 H INR 5.63 H* ABG pH POC ABG pCO2 POC ABG pO2 ABG pO2 ABG Base Excess ABG Hemoglobin ABG Oxyhemoglobin ABG Sodium ABG Potassium ABG Chloride ABG Glucose VBG pH Oxyhemoglobin Carboxyhemoglobin Sodium 150 H Potassium Chloride 117.6 H Carbon Dioxide 10 L BUN 50 H Creatinine 2.8 H Glucose 308 H POC Glucose Lactic Acid Calcium 6.8 L Phosphorus Magnesium Total Bilirubin 2.20 H Direct Bilirubin AST 1224 H ALT 484 H Alkaline Phosphatase Ammonia Total Creatine Kinase C-Reactive Protein Total Protein 2.8 L D Albumin 1.6 L Lipase Arterial Blood Glucose Arterial Blood Ionized Calcium Urine WBC (Auto) U Epithel Cells (Auto) Acetaminophen Complement C3 Complement C4 Syphilis IgG Antibody HSV I Specific Ab Crossmatch 07/19/20 07/19/20 07/19/20 05:41 05:41 05:53 WBC RBC Hgb Hct MCV MCH MCHC RDW Plt Count Lymph % (Auto) Cole % (Auto) Lymph # (Auto) Cole # (Auto) Eos # (Auto) Seg Neutrophils % Seg Neuts % (Manual) Lymphocytes % (Manual) Monocytes % (Manual) Nucleated RBC % Seg Neutrophils # Seg Neutrophils # Man Lymphocytes # (Manual) Monocytes # (Manual) Eosinophils # (Manual) PT INR ABG pH POC ABG pCO2 POC ABG pO2 ABG pO2 ABG Base Excess ABG Hemoglobin ABG Oxyhemoglobin ABG Sodium ABG Potassium ABG Chloride ABG Glucose VBG pH Oxyhemoglobin Carboxyhemoglobin Sodium Potassium Chloride Carbon Dioxide BUN Creatinine Glucose POC Glucose 186 H Lactic Acid 12.00 H* Calcium Phosphorus Magnesium Total Bilirubin Direct Bilirubin AST ALT Alkaline Phosphatase Ammonia 96.0 H Total Creatine Kinase C-Reactive Protein Total Protein Albumin Lipase Arterial Blood Glucose Arterial Blood Ionized Calcium Urine WBC (Auto) U Epithel Cells (Auto) Acetaminophen Complement C3 Complement C4 Syphilis IgG Antibody HSV I Specific Ab Crossmatch 07/19/20 07/19/20 07/19/20 06:14 07:35 07:35 WBC RBC Hgb Hct MCV MCH MCHC RDW Plt Count Lymph % (Auto) Cole % (Auto) Lymph # (Auto) Cole # (Auto) Eos # (Auto) Seg Neutrophils % Seg Neuts % (Manual) Lymphocytes % (Manual) Monocytes % (Manual) Nucleated RBC % Seg Neutrophils # Seg Neutrophils # Man Lymphocytes # (Manual) Monocytes # (Manual) Eosinophils # (Manual) PT INR ABG pH 6.904 L POC ABG pCO2 50.8 H POC ABG pO2 140.1 H ABG pO2 ABG Base Excess ABG Hemoglobin 7.9 L ABG Oxyhemoglobin ABG Sodium ABG Potassium ABG Chloride 120.0 H ABG Glucose 220 H VBG pH Oxyhemoglobin Carboxyhemoglobin 1.7 H Sodium Potassium Chloride Carbon Dioxide BUN Creatinine Glucose POC Glucose Lactic Acid 8.50 H* Calcium Phosphorus Magnesium Total Bilirubin Direct Bilirubin AST ALT Alkaline Phosphatase Ammonia Total Creatine Kinase C-Reactive Protein Total Protein Albumin Lipase Arterial Blood Glucose 220 H Arterial Blood Ionized Calcium 4.1 L Urine WBC (Auto) U Epithel Cells (Auto) Acetaminophen Complement C3 Complement C4 Syphilis IgG Antibody HSV I Specific Ab Crossmatch See Detail 07/19/20 07/19/20 07/19/20 12:45 22:54 Unknown WBC 26.7 H RBC 2.68 L Hgb 9.0 L Hct 26.8 L D MCV 100 H MCH 34 H MCHC RDW 20.2 H Plt Count 104 L Lymph % (Auto) Cole % (Auto) Lymph # (Auto) Cole # (Auto) Eos # (Auto) Seg Neutrophils % Seg Neuts % (Manual) Lymphocytes % (Manual) 6.0 L Monocytes % (Manual) 8.0 H Nucleated RBC % Seg Neutrophils # Seg Neutrophils # Man 17.6 H Lymphocytes # (Manual) Monocytes # (Manual) 2.1 H Eosinophils # (Manual) PT INR ABG pH POC ABG pCO2 POC ABG pO2 ABG pO2 ABG Base Excess ABG Hemoglobin ABG Oxyhemoglobin ABG Sodium ABG Potassium ABG Chloride ABG Glucose VBG pH Oxyhemoglobin Carboxyhemoglobin Sodium Potassium Chloride Carbon Dioxide BUN Creatinine Glucose POC Glucose 121 H Lactic Acid 6.20 H* Calcium Phosphorus Magnesium Total Bilirubin Direct Bilirubin AST ALT Alkaline Phosphatase Ammonia Total Creatine Kinase C-Reactive Protein Total Protein Albumin Lipase Arterial Blood Glucose Arterial Blood Ionized Calcium Urine WBC (Auto) U Epithel Cells (Auto) Acetaminophen Complement C3 Complement C4 Syphilis IgG Antibody HSV I Specific Ab Crossmatch 07/19/20 07/19/20 07/19/20 Unknown Unknown Unknown WBC RBC Hgb Hct MCV MCH MCHC RDW Plt Count Lymph % (Auto) Cole % (Auto) Lymph # (Auto) Cole # (Auto) Eos # (Auto) Seg Neutrophils % Seg Neuts % (Manual) Lymphocytes % (Manual) Monocytes % (Manual) Nucleated RBC % Seg Neutrophils # Seg Neutrophils # Man Lymphocytes # (Manual) Monocytes # (Manual) Eosinophils # (Manual) PT 33.4 H INR 3.25 H ABG pH POC ABG pCO2 POC ABG pO2 ABG pO2 ABG Base Excess ABG Hemoglobin ABG Oxyhemoglobin ABG Sodium ABG Potassium ABG Chloride ABG Glucose VBG pH Oxyhemoglobin Carboxyhemoglobin Sodium 148 H Potassium 2.6 L* D Chloride 117.3 H Carbon Dioxide 18 L D BUN 48 H Creatinine 2.4 H Glucose 207 H POC Glucose Lactic Acid 3.90 H* Calcium 6.5 L Phosphorus Magnesium Total Bilirubin 3.80 H Direct Bilirubin AST 1228 H ALT 516 H Alkaline Phosphatase Ammonia Total Creatine Kinase C-Reactive Protein Total Protein 3.6 L D Albumin 1.9 L Lipase Arterial Blood Glucose Arterial Blood Ionized Calcium Urine WBC (Auto) U Epithel Cells (Auto) Acetaminophen Complement C3 Complement C4 Syphilis IgG Antibody HSV I Specific Ab Crossmatch 07/20/20 07/20/20 07/20/20 02:41 05:04 06:39 WBC RBC Hgb Hct MCV MCH MCHC RDW Plt Count Lymph % (Auto) Cole % (Auto) Lymph # (Auto) Cole # (Auto) Eos # (Auto) Seg Neutrophils % Seg Neuts % (Manual) Lymphocytes % (Manual) Monocytes % (Manual) Nucleated RBC % Seg Neutrophils # Seg Neutrophils # Man Lymphocytes # (Manual) Monocytes # (Manual) Eosinophils # (Manual) PT INR ABG pH POC ABG pCO2 POC ABG pO2 64.7 L ABG pO2 ABG Base Excess ABG Hemoglobin 8.8 L ABG Oxyhemoglobin 91.0 L ABG Sodium ABG Potassium 2.6 L ABG Chloride 116.0 H ABG Glucose 143 H VBG pH Oxyhemoglobin Carboxyhemoglobin 2.0 H Sodium Potassium Chloride Carbon Dioxide BUN Creatinine Glucose POC Glucose 141 H 123 H Lactic Acid Calcium Phosphorus Magnesium Total Bilirubin Direct Bilirubin AST ALT Alkaline Phosphatase Ammonia Total Creatine Kinase C-Reactive Protein Total Protein Albumin Lipase Arterial Blood Glucose 143 H Arterial Blood Ionized Calcium 3.9 L Urine WBC (Auto) U Epithel Cells (Auto) Acetaminophen Complement C3 Complement C4 Syphilis IgG Antibody HSV I Specific Ab Crossmatch 07/20/20 07/20/20 07/20/20 10:42 11:07 11:07 WBC 27.7 H RBC 2.50 L Hgb 8.4 L Hct 24.4 L MCV 98 H MCH 34 H MCHC 35 H RDW 19.8 H Plt Count 78 L Lymph % (Auto) Cole % (Auto) Lymph # (Auto) Cole # (Auto) Eos # (Auto) Seg Neutrophils % Seg Neuts % (Manual) Lymphocytes % (Manual) Monocytes % (Manual) Nucleated RBC % Seg Neutrophils # Seg Neutrophils # Man Lymphocytes # (Manual) Monocytes # (Manual) Eosinophils # (Manual) PT INR ABG pH POC ABG pCO2 POC ABG pO2 113.1 H ABG pO2 ABG Base Excess ABG Hemoglobin 8.8 L ABG Oxyhemoglobin ABG Sodium ABG Potassium 2.9 L ABG Chloride 114.0 H ABG Glucose 135 H VBG pH Oxyhemoglobin Carboxyhemoglobin 1.9 H Sodium 147 H Potassium Chloride 114.2 H Carbon Dioxide BUN 52 H Creatinine 1.8 H Glucose 143 H POC Glucose Lactic Acid Calcium 6.5 L Phosphorus Magnesium Total Bilirubin Direct Bilirubin AST ALT Alkaline Phosphatase Ammonia Total Creatine Kinase C-Reactive Protein Total Protein Albumin Lipase Arterial Blood Glucose 135 H Arterial Blood Ionized Calcium 3.8 L Urine WBC (Auto) U Epithel Cells (Auto) Acetaminophen Complement C3 Complement C4 Syphilis IgG Antibody HSV I Specific Ab Crossmatch 07/20/20 07/21/20 07/21/20 15:05 00:03 02:07 WBC RBC Hgb Hct MCV MCH MCHC RDW Plt Count Lymph % (Auto) Cole % (Auto) Lymph # (Auto) Cole # (Auto) Eos # (Auto) Seg Neutrophils % Seg Neuts % (Manual) Lymphocytes % (Manual) Monocytes % (Manual) Nucleated RBC % Seg Neutrophils # Seg Neutrophils # Man Lymphocytes # (Manual) Monocytes # (Manual) Eosinophils # (Manual) PT INR ABG pH POC ABG pCO2 POC ABG pO2 ABG pO2 ABG Base Excess ABG Hemoglobin ABG Oxyhemoglobin ABG Sodium ABG Potassium ABG Chloride ABG Glucose VBG pH Oxyhemoglobin Carboxyhemoglobin Sodium 146 H Potassium 2.8 L* 3.1 L Chloride 112.1 H Carbon Dioxide BUN 54 H Creatinine 1.9 H Glucose 107 H POC Glucose 145 H Lactic Acid Calcium 6.8 L Phosphorus Magnesium 0.90 L* Total Bilirubin Direct Bilirubin AST ALT Alkaline Phosphatase Ammonia Total Creatine Kinase C-Reactive Protein Total Protein Albumin Lipase Arterial Blood Glucose Arterial Blood Ionized Calcium Urine WBC (Auto) U Epithel Cells (Auto) Acetaminophen Complement C3 Complement C4 Syphilis IgG Antibody HSV I Specific Ab Crossmatch 07/21/20 07/21/20 07/21/20 03:42 05:21 10:59 WBC RBC Hgb Hct MCV MCH MCHC RDW Plt Count Lymph % (Auto) Cole % (Auto) Lymph # (Auto) Cole # (Auto) Eos # (Auto) Seg Neutrophils % Seg Neuts % (Manual) Lymphocytes % (Manual) Monocytes % (Manual) Nucleated RBC % Seg Neutrophils # Seg Neutrophils # Man Lymphocytes # (Manual) Monocytes # (Manual) Eosinophils # (Manual) PT INR ABG pH POC ABG pCO2 POC ABG pO2 ABG pO2 98.2 H ABG Base Excess -3.8 L ABG Hemoglobin 8.7 L ABG Oxyhemoglobin ABG Sodium ABG Potassium ABG Chloride ABG Glucose VBG pH Oxyhemoglobin 94.6 L Carboxyhemoglobin Sodium Potassium Chloride Carbon Dioxide BUN Creatinine Glucose POC Glucose 150 H 161 H Lactic Acid Calcium Phosphorus Magnesium Total Bilirubin Direct Bilirubin AST ALT Alkaline Phosphatase Ammonia Total Creatine Kinase C-Reactive Protein Total Protein Albumin Lipase Arterial Blood Glucose Arterial Blood Ionized Calcium Urine WBC (Auto) U Epithel Cells (Auto) Acetaminophen Complement C3 Complement C4 Syphilis IgG Antibody HSV I Specific Ab Crossmatch 07/21/20 07/21/20 07/21/20 13:59 16:14 17:22 WBC RBC Hgb Hct MCV MCH MCHC RDW Plt Count Lymph % (Auto) Cole % (Auto) Lymph # (Auto) Cole # (Auto) Eos # (Auto) Seg Neutrophils % Seg Neuts % (Manual) Lymphocytes % (Manual) Monocytes % (Manual) Nucleated RBC % Seg Neutrophils # Seg Neutrophils # Man Lymphocytes # (Manual) Monocytes # (Manual) Eosinophils # (Manual) PT INR ABG pH POC ABG pCO2 POC ABG pO2 ABG pO2 ABG Base Excess ABG Hemoglobin ABG Oxyhemoglobin ABG Sodium ABG Potassium ABG Chloride ABG Glucose VBG pH Oxyhemoglobin Carboxyhemoglobin Sodium Potassium 3.0 L Chloride 112.5 H Carbon Dioxide 16 L D BUN 48 H Creatinine Glucose 157 H POC Glucose 164 H 171 H Lactic Acid Calcium 7.3 L Phosphorus Magnesium Total Bilirubin Direct Bilirubin AST ALT Alkaline Phosphatase Ammonia Total Creatine Kinase C-Reactive Protein Total Protein Albumin Lipase Arterial Blood Glucose Arterial Blood Ionized Calcium Urine WBC (Auto) U Epithel Cells (Auto) Acetaminophen Complement C3 Complement C4 Syphilis IgG Antibody HSV I Specific Ab Crossmatch 07/21/20 07/22/20 07/22/20 20:06 04:25 07:57 WBC 28.9 H RBC 2.35 L Hgb 8.0 L Hct 22.2 L MCV MCH 34 H MCHC 36 H RDW 20.5 H Plt Count 41 L Lymph % (Auto) Cole % (Auto) Lymph # (Auto) Cole # (Auto) Eos # (Auto) Seg Neutrophils % Seg Neuts % (Manual) 83.0 H Lymphocytes % (Manual) 6.0 L Monocytes % (Manual) Nucleated RBC % 2.0 H Seg Neutrophils # Seg Neutrophils # Man 24.0 H Lymphocytes # (Manual) Monocytes # (Manual) 1.4 H Eosinophils # (Manual) 0.6 H PT INR ABG pH 7.500 H POC ABG pCO2 POC ABG pO2 ABG pO2 104.9 H ABG Base Excess ABG Hemoglobin 8.6 L ABG Oxyhemoglobin ABG Sodium ABG Potassium ABG Chloride ABG Glucose VBG pH Oxyhemoglobin Carboxyhemoglobin Sodium Potassium Chloride Carbon Dioxide BUN Creatinine Glucose POC Glucose 128 H Lactic Acid Calcium Phosphorus Magnesium Total Bilirubin Direct Bilirubin AST ALT Alkaline Phosphatase Ammonia Total Creatine Kinase C-Reactive Protein Total Protein Albumin Lipase Arterial Blood Glucose Arterial Blood Ionized Calcium Urine WBC (Auto) U Epithel Cells (Auto) Acetaminophen Complement C3 Complement C4 Syphilis IgG Antibody HSV I Specific Ab Crossmatch 07/22/20 07/22/20 07/22/20 07:57 07:57 12:08 WBC RBC Hgb Hct MCV MCH MCHC RDW Plt Count Lymph % (Auto) Cole % (Auto) Lymph # (Auto) Cole # (Auto) Eos # (Auto) Seg Neutrophils % Seg Neuts % (Manual) Lymphocytes % (Manual) Monocytes % (Manual) Nucleated RBC % Seg Neutrophils # Seg Neutrophils # Man Lymphocytes # (Manual) Monocytes # (Manual) Eosinophils # (Manual) PT 21.6 H INR 1.87 H ABG pH POC ABG pCO2 POC ABG pO2 ABG pO2 ABG Base Excess ABG Hemoglobin ABG Oxyhemoglobin ABG Sodium ABG Potassium ABG Chloride ABG Glucose VBG pH Oxyhemoglobin Carboxyhemoglobin Sodium 147 H D Potassium 2.6 L* Chloride 112.7 H Carbon Dioxide BUN 51 H Creatinine Glucose 104 H POC Glucose Lactic Acid Calcium 7.8 L Phosphorus 1.10 L Magnesium 1.50 L Total Bilirubin 9.80 H 11.10 H Direct Bilirubin 8.8 H AST 234 H 231 H ALT 297 H 286 H Alkaline Phosphatase 296 H 323 H Ammonia Total Creatine Kinase C-Reactive Protein Total Protein 4.1 L 3.6 L Albumin 1.8 L 2.0 L Lipase Arterial Blood Glucose Arterial Blood Ionized Calcium Urine WBC (Auto) U Epithel Cells (Auto) Acetaminophen Complement C3 Complement C4 Syphilis IgG Antibody HSV I Specific Ab Crossmatch 07/23/20 07/23/20 07/23/20 01:53 02:51 07:38 WBC RBC Hgb Hct MCV MCH MCHC RDW Plt Count Lymph % (Auto) Cole % (Auto) Lymph # (Auto) Cole # (Auto) Eos # (Auto) Seg Neutrophils % Seg Neuts % (Manual) Lymphocytes % (Manual) Monocytes % (Manual) Nucleated RBC % Seg Neutrophils # Seg Neutrophils # Man Lymphocytes # (Manual) Monocytes # (Manual) Eosinophils # (Manual) PT INR ABG pH 7.313 L POC ABG pCO2 POC ABG pO2 67.0 L ABG pO2 ABG Base Excess ABG Hemoglobin ABG Oxyhemoglobin ABG Sodium ABG Potassium 3.2 L ABG Chloride 115.0 H ABG Glucose VBG pH Oxyhemoglobin Carboxyhemoglobin Sodium Potassium Chloride Carbon Dioxide BUN Creatinine Glucose POC Glucose 64 L 62 L Lactic Acid Calcium Phosphorus Magnesium Total Bilirubin Direct Bilirubin AST ALT Alkaline Phosphatase Ammonia Total Creatine Kinase C-Reactive Protein Total Protein Albumin Lipase Arterial Blood Glucose Arterial Blood Ionized Calcium 4.3 L Urine WBC (Auto) U Epithel Cells (Auto) Acetaminophen Complement C3 Complement C4 Syphilis IgG Antibody HSV I Specific Ab Crossmatch 07/23/20 07/23/20 07/23/20 07:39 07:39 23:52 WBC 37.0 H RBC 2.30 L Hgb 7.8 L Hct 22.5 L MCV 98 H MCH 34 H MCHC 35 H RDW 21.3 H Plt Count 55 L Lymph % (Auto) Cole % (Auto) Lymph # (Auto) Cole # (Auto) Eos # (Auto) Seg Neutrophils % Seg Neuts % (Manual) 78.0 H Lymphocytes % (Manual) 10.0 L Monocytes % (Manual) Nucleated RBC % 3.0 H Seg Neutrophils # Seg Neutrophils # Man 28.9 H Lymphocytes # (Manual) Monocytes # (Manual) 1.1 H Eosinophils # (Manual) 0.7 H PT INR ABG pH POC ABG pCO2 POC ABG pO2 ABG pO2 ABG Base Excess ABG Hemoglobin ABG Oxyhemoglobin ABG Sodium ABG Potassium ABG Chloride ABG Glucose VBG pH Oxyhemoglobin Carboxyhemoglobin Sodium 148 H Potassium Chloride 114.0 H Carbon Dioxide BUN 59 H Creatinine 1.5 H Glucose POC Glucose Lactic Acid Calcium 7.7 L Phosphorus 4.60 H D Magnesium Total Bilirubin 11.20 H Direct Bilirubin AST 245 H ALT 242 H Alkaline Phosphatase 423 H Ammonia Total Creatine Kinase C-Reactive Protein 17.20 H Total Protein 4.3 L Albumin 1.8 L Lipase Arterial Blood Glucose Arterial Blood Ionized Calcium Urine WBC (Auto) U Epithel Cells (Auto) Acetaminophen Complement C3 Complement C4 Syphilis IgG Antibody HSV I Specific Ab Crossmatch 07/23/20 07/23/20 07/23/20 23:52 23:52 Unknown WBC RBC Hgb Hct MCV MCH MCHC RDW Plt Count Lymph % (Auto) Cole % (Auto) Lymph # (Auto) Cole # (Auto) Eos # (Auto) Seg Neutrophils % Seg Neuts % (Manual) Lymphocytes % (Manual) Monocytes % (Manual) Nucleated RBC % Seg Neutrophils # Seg Neutrophils # Man Lymphocytes # (Manual) Monocytes # (Manual) Eosinophils # (Manual) PT INR ABG pH POC ABG pCO2 POC ABG pO2 ABG pO2 ABG Base Excess ABG Hemoglobin ABG Oxyhemoglobin ABG Sodium ABG Potassium ABG Chloride ABG Glucose VBG pH Oxyhemoglobin Carboxyhemoglobin Sodium Potassium Chloride Carbon Dioxide BUN Creatinine Glucose POC Glucose Lactic Acid Calcium Phosphorus Magnesium Total Bilirubin Direct Bilirubin AST ALT Alkaline Phosphatase Ammonia Total Creatine Kinase C-Reactive Protein Total Protein Albumin Lipase Arterial Blood Glucose Arterial Blood Ionized Calcium Urine WBC (Auto) 102.0 H U Epithel Cells (Auto) Acetaminophen Complement C3 55 L Complement C4 11 L Syphilis IgG Antibody HSV I Specific Ab Crossmatch 07/24/20 07/24/20 07/24/20 03:39 10:14 10:14 WBC RBC Hgb Hct MCV MCH MCHC RDW Plt Count Lymph % (Auto) Cole % (Auto) Lymph # (Auto) Cole # (Auto) Eos # (Auto) Seg Neutrophils % Seg Neuts % (Manual) Lymphocytes % (Manual) Monocytes % (Manual) Nucleated RBC % Seg Neutrophils # Seg Neutrophils # Man Lymphocytes # (Manual) Monocytes # (Manual) Eosinophils # (Manual) PT INR ABG pH POC ABG pCO2 POC ABG pO2 147.8 H ABG pO2 ABG Base Excess ABG Hemoglobin 5.5 L ABG Oxyhemoglobin ABG Sodium ABG Potassium 3.0 L ABG Chloride 117.0 H ABG Glucose VBG pH Oxyhemoglobin Carboxyhemoglobin Sodium 150 H Potassium 2.6 L* D Chloride 117.1 H Carbon Dioxide BUN 48 H Creatinine Glucose POC Glucose Lactic Acid Calcium 8.2 L Phosphorus 2.30 L D Magnesium 1.50 L Total Bilirubin Direct Bilirubin AST ALT Alkaline Phosphatase Ammonia Total Creatine Kinase C-Reactive Protein Total Protein Albumin Lipase Arterial Blood Glucose Arterial Blood Ionized Calcium Urine WBC (Auto) U Epithel Cells (Auto) Acetaminophen Complement C3 Complement C4 Syphilis IgG Antibody HSV I Specific Ab Crossmatch 07/24/20 07/24/20 07/24/20 10:14 10:14 21:31 WBC RBC Hgb Hct MCV MCH MCHC RDW Plt Count Lymph % (Auto) Cole % (Auto) Lymph # (Auto) Cole # (Auto) Eos # (Auto) Seg Neutrophils % Seg Neuts % (Manual) Lymphocytes % (Manual) Monocytes % (Manual) Nucleated RBC % Seg Neutrophils # Seg Neutrophils # Man Lymphocytes # (Manual) Monocytes # (Manual) Eosinophils # (Manual) PT 22.7 H INR 1.99 H ABG pH POC ABG pCO2 POC ABG pO2 ABG pO2 ABG Base Excess ABG Hemoglobin ABG Oxyhemoglobin ABG Sodium ABG Potassium ABG Chloride ABG Glucose VBG pH Oxyhemoglobin Carboxyhemoglobin Sodium Potassium Chloride Carbon Dioxide BUN Creatinine Glucose POC Glucose 59 L Lactic Acid Calcium Phosphorus Magnesium Total Bilirubin 10.30 H Direct Bilirubin 7.8 H AST 144 H ALT 129 H Alkaline Phosphatase 308 H Ammonia Total Creatine Kinase C-Reactive Protein Total Protein 4.2 L Albumin 2.4 L Lipase Arterial Blood Glucose Arterial Blood Ionized Calcium Urine WBC (Auto) U Epithel Cells (Auto) Acetaminophen Complement C3 Complement C4 Syphilis IgG Antibody HSV I Specific Ab Crossmatch 07/25/20 07/25/20 07/25/20 05:19 05:20 08:38 WBC RBC Hgb Hct MCV MCH MCHC RDW Plt Count Lymph % (Auto) Cole % (Auto) Lymph # (Auto) Cole # (Auto) Eos # (Auto) Seg Neutrophils % Seg Neuts % (Manual) Lymphocytes % (Manual) Monocytes % (Manual) Nucleated RBC % Seg Neutrophils # Seg Neutrophils # Man Lymphocytes # (Manual) Monocytes # (Manual) Eosinophils # (Manual) PT INR ABG pH 7.458 H POC ABG pCO2 POC ABG pO2 77.5 L ABG pO2 ABG Base Excess ABG Hemoglobin 8.5 L ABG Oxyhemoglobin 93.9 L ABG Sodium 147.8 H ABG Potassium 2.9 L ABG Chloride 118.0 H ABG Glucose VBG pH Oxyhemoglobin Carboxyhemoglobin 2.1 H Sodium Potassium Chloride Carbon Dioxide BUN Creatinine Glucose POC Glucose 55 L 107 H Lactic Acid Calcium Phosphorus Magnesium Total Bilirubin Direct Bilirubin AST ALT Alkaline Phosphatase Ammonia Total Creatine Kinase C-Reactive Protein Total Protein Albumin Lipase Arterial Blood Glucose Arterial Blood Ionized Calcium Urine WBC (Auto) U Epithel Cells (Auto) Acetaminophen Complement C3 Complement C4 Syphilis IgG Antibody HSV I Specific Ab Crossmatch 07/25/20 07/25/20 07/25/20 09:53 09:53 21:54 WBC RBC Hgb Hct MCV MCH MCHC RDW Plt Count Lymph % (Auto) Cole % (Auto) Lymph # (Auto) Cole # (Auto) Eos # (Auto) Seg Neutrophils % Seg Neuts % (Manual) Lymphocytes % (Manual) Monocytes % (Manual) Nucleated RBC % Seg Neutrophils # Seg Neutrophils # Man Lymphocytes # (Manual) Monocytes # (Manual) Eosinophils # (Manual) PT 22.3 H INR 1.94 H ABG pH POC ABG pCO2 POC ABG pO2 ABG pO2 ABG Base Excess ABG Hemoglobin ABG Oxyhemoglobin ABG Sodium ABG Potassium ABG Chloride ABG Glucose VBG pH Oxyhemoglobin Carboxyhemoglobin Sodium 154 H Potassium 2.8 L* Chloride 121.5 H Carbon Dioxide BUN 47 H Creatinine Glucose POC Glucose 112 H Lactic Acid Calcium Phosphorus Magnesium Total Bilirubin 11.60 H Direct Bilirubin AST 141 H ALT 115 H Alkaline Phosphatase 355 H Ammonia Total Creatine Kinase C-Reactive Protein Total Protein 4.3 L Albumin 2.2 L Lipase Arterial Blood Glucose Arterial Blood Ionized Calcium Urine WBC (Auto) U Epithel Cells (Auto) Acetaminophen Complement C3 Complement C4 Syphilis IgG Antibody HSV I Specific Ab Crossmatch 07/26/20 07/26/20 07/26/20 01:54 05:38 07:48 WBC RBC Hgb Hct MCV MCH MCHC RDW Plt Count Lymph % (Auto) Cole % (Auto) Lymph # (Auto) Cole # (Auto) Eos # (Auto) Seg Neutrophils % Seg Neuts % (Manual) Lymphocytes % (Manual) Monocytes % (Manual) Nucleated RBC % Seg Neutrophils # Seg Neutrophils # Man Lymphocytes # (Manual) Monocytes # (Manual) Eosinophils # (Manual) PT INR ABG pH POC ABG pCO2 POC ABG pO2 ABG pO2 ABG Base Excess ABG Hemoglobin ABG Oxyhemoglobin ABG Sodium ABG Potassium ABG Chloride ABG Glucose VBG pH Oxyhemoglobin Carboxyhemoglobin Sodium Potassium Chloride Carbon Dioxide BUN Creatinine Glucose POC Glucose 130 H 155 H 155 H Lactic Acid Calcium Phosphorus Magnesium Total Bilirubin Direct Bilirubin AST ALT Alkaline Phosphatase Ammonia Total Creatine Kinase C-Reactive Protein Total Protein Albumin Lipase Arterial Blood Glucose Arterial Blood Ionized Calcium Urine WBC (Auto) U Epithel Cells (Auto) Acetaminophen Complement C3 Complement C4 Syphilis IgG Antibody HSV I Specific Ab Crossmatch 07/26/20 07/26/20 07/26/20 11:31 14:47 14:47 WBC RBC Hgb Hct MCV MCH MCHC RDW Plt Count Lymph % (Auto) Cole % (Auto) Lymph # (Auto) Cole # (Auto) Eos # (Auto) Seg Neutrophils % Seg Neuts % (Manual) Lymphocytes % (Manual) Monocytes % (Manual) Nucleated RBC % Seg Neutrophils # Seg Neutrophils # Man Lymphocytes # (Manual) Monocytes # (Manual) Eosinophils # (Manual) PT 21.2 H INR 1.83 H ABG pH POC ABG pCO2 POC ABG pO2 ABG pO2 ABG Base Excess ABG Hemoglobin ABG Oxyhemoglobin ABG Sodium ABG Potassium ABG Chloride ABG Glucose VBG pH Oxyhemoglobin Carboxyhemoglobin Sodium 148 H Potassium 3.4 L D Chloride 118.2 H Carbon Dioxide BUN 42 H Creatinine Glucose 177 H POC Glucose 147 H Lactic Acid Calcium Phosphorus Magnesium Total Bilirubin Direct Bilirubin AST ALT Alkaline Phosphatase Ammonia Total Creatine Kinase C-Reactive Protein Total Protein Albumin Lipase Arterial Blood Glucose Arterial Blood Ionized Calcium Urine WBC (Auto) U Epithel Cells (Auto) Acetaminophen Complement C3 Complement C4 Syphilis IgG Antibody HSV I Specific Ab Crossmatch 07/26/20 07/26/20 07/26/20 14:47 16:57 21:36 WBC RBC Hgb Hct MCV MCH MCHC RDW Plt Count Lymph % (Auto) Cole % (Auto) Lymph # (Auto) Cole # (Auto) Eos # (Auto) Seg Neutrophils % Seg Neuts % (Manual) Lymphocytes % (Manual) Monocytes % (Manual) Nucleated RBC % Seg Neutrophils # Seg Neutrophils # Man Lymphocytes # (Manual) Monocytes # (Manual) Eosinophils # (Manual) PT INR ABG pH POC ABG pCO2 POC ABG pO2 ABG pO2 ABG Base Excess ABG Hemoglobin ABG Oxyhemoglobin ABG Sodium ABG Potassium ABG Chloride ABG Glucose VBG pH Oxyhemoglobin Carboxyhemoglobin Sodium Potassium Chloride Carbon Dioxide BUN Creatinine Glucose POC Glucose 149 H 129 H Lactic Acid Calcium Phosphorus Magnesium Total Bilirubin 11.30 H Direct Bilirubin 8.6 H AST 139 H ALT 109 H Alkaline Phosphatase 368 H Ammonia Total Creatine Kinase C-Reactive Protein Total Protein 4.1 L Albumin 2.3 L Lipase Arterial Blood Glucose Arterial Blood Ionized Calcium Urine WBC (Auto) U Epithel Cells (Auto) Acetaminophen Complement C3 Complement C4 Syphilis IgG Antibody HSV I Specific Ab Crossmatch 07/27/20 07/27/20 07/27/20 02:03 04:45 04:45 WBC 22.2 H RBC 1.95 L Hgb 6.5 L Hct 18.9 L* MCV MCH 34 H MCHC 35 H RDW 21.3 H Plt Count 29 L Lymph % (Auto) Cole % (Auto) Lymph # (Auto) Cole # (Auto) Eos # (Auto) Seg Neutrophils % Seg Neuts % (Manual) 82.0 H Lymphocytes % (Manual) 3.0 L Monocytes % (Manual) Nucleated RBC % Seg Neutrophils # Seg Neutrophils # Man 18.2 H Lymphocytes # (Manual) 0.7 L Monocytes # (Manual) Eosinophils # (Manual) PT INR ABG pH POC ABG pCO2 POC ABG pO2 ABG pO2 ABG Base Excess ABG Hemoglobin ABG Oxyhemoglobin ABG Sodium ABG Potassium ABG Chloride ABG Glucose VBG pH Oxyhemoglobin Carboxyhemoglobin Sodium 150 H Potassium 3.4 L Chloride 119.4 H Carbon Dioxide BUN 47 H Creatinine Glucose 137 H POC Glucose 134 H Lactic Acid Calcium Phosphorus Magnesium Total Bilirubin 9.60 H Direct Bilirubin AST 120 H ALT 89 H Alkaline Phosphatase 340 H Ammonia Total Creatine Kinase C-Reactive Protein Total Protein 3.7 L Albumin 2.1 L Lipase Arterial Blood Glucose Arterial Blood Ionized Calcium Urine WBC (Auto) U Epithel Cells (Auto) Acetaminophen Complement C3 Complement C4 Syphilis IgG Antibody HSV I Specific Ab Crossmatch 07/27/20 07/27/20 07/27/20 05:36 08:45 10:28 WBC RBC Hgb Hct MCV MCH MCHC RDW Plt Count Lymph % (Auto) Cole % (Auto) Lymph # (Auto) Cole # (Auto) Eos # (Auto) Seg Neutrophils % Seg Neuts % (Manual) Lymphocytes % (Manual) Monocytes % (Manual) Nucleated RBC % Seg Neutrophils # Seg Neutrophils # Man Lymphocytes # (Manual) Monocytes # (Manual) Eosinophils # (Manual) PT INR ABG pH POC ABG pCO2 POC ABG pO2 ABG pO2 ABG Base Excess ABG Hemoglobin ABG Oxyhemoglobin ABG Sodium ABG Potassium ABG Chloride ABG Glucose VBG pH Oxyhemoglobin Carboxyhemoglobin Sodium Potassium Chloride Carbon Dioxide BUN Creatinine Glucose POC Glucose 126 H 149 H Lactic Acid Calcium Phosphorus Magnesium Total Bilirubin Direct Bilirubin AST ALT Alkaline Phosphatase Ammonia Total Creatine Kinase C-Reactive Protein Total Protein Albumin Lipase Arterial Blood Glucose Arterial Blood Ionized Calcium Urine WBC (Auto) U Epithel Cells (Auto) Acetaminophen Complement C3 Complement C4 Syphilis IgG Antibody HSV I Specific Ab Crossmatch See Detail 07/27/20 07/28/20 07/28/20 15:32 00:32 05:09 WBC RBC Hgb 9.5 L D Hct 28.6 L D MCV MCH MCHC RDW Plt Count Lymph % (Auto) Cole % (Auto) Lymph # (Auto) Cole # (Auto) Eos # (Auto) Seg Neutrophils % Seg Neuts % (Manual) Lymphocytes % (Manual) Monocytes % (Manual) Nucleated RBC % Seg Neutrophils # Seg Neutrophils # Man Lymphocytes # (Manual) Monocytes # (Manual) Eosinophils # (Manual) PT INR ABG pH POC ABG pCO2 POC ABG pO2 67.3 L ABG pO2 ABG Base Excess ABG Hemoglobin 10.5 L ABG Oxyhemoglobin 90.9 L ABG Sodium ABG Potassium ABG Chloride 117.0 H ABG Glucose 105 H VBG pH Oxyhemoglobin Carboxyhemoglobin Sodium Potassium Chloride Carbon Dioxide BUN Creatinine Glucose POC Glucose 113 H Lactic Acid Calcium Phosphorus Magnesium Total Bilirubin Direct Bilirubin AST ALT Alkaline Phosphatase Ammonia Total Creatine Kinase C-Reactive Protein Total Protein Albumin Lipase Arterial Blood Glucose 105 H Arterial Blood Ionized Calcium Urine WBC (Auto) U Epithel Cells (Auto) Acetaminophen Complement C3 Complement C4 Syphilis IgG Antibody HSV I Specific Ab Crossmatch 07/28/20 07/28/20 07/28/20 09:42 11:50 16:43 WBC RBC Hgb Hct MCV MCH MCHC RDW Plt Count Lymph % (Auto) Cole % (Auto) Lymph # (Auto) Cole # (Auto) Eos # (Auto) Seg Neutrophils % Seg Neuts % (Manual) Lymphocytes % (Manual) Monocytes % (Manual) Nucleated RBC % Seg Neutrophils # Seg Neutrophils # Man Lymphocytes # (Manual) Monocytes # (Manual) Eosinophils # (Manual) PT INR ABG pH POC ABG pCO2 POC ABG pO2 ABG pO2 ABG Base Excess ABG Hemoglobin ABG Oxyhemoglobin ABG Sodium ABG Potassium ABG Chloride ABG Glucose VBG pH Oxyhemoglobin Carboxyhemoglobin Sodium 146 H Potassium Chloride 116.7 H Carbon Dioxide 20 L BUN 51 H Creatinine 1.6 H D Glucose 107 H POC Glucose 109 H 114 H Lactic Acid Calcium 8.2 L Phosphorus Magnesium Total Bilirubin 9.70 H Direct Bilirubin AST 195 H ALT 99 H Alkaline Phosphatase 422 H Ammonia Total Creatine Kinase C-Reactive Protein Total Protein 5.2 L D Albumin 2.1 L Lipase Arterial Blood Glucose Arterial Blood Ionized Calcium Urine WBC (Auto) U Epithel Cells (Auto) Acetaminophen Complement C3 Complement C4 Syphilis IgG Antibody HSV I Specific Ab Crossmatch 07/28/20 07/28/20 07/29/20 21:29 23:48 02:10 WBC RBC Hgb Hct MCV MCH MCHC RDW Plt Count Lymph % (Auto) Cole % (Auto) Lymph # (Auto) Cole # (Auto) Eos # (Auto) Seg Neutrophils % Seg Neuts % (Manual) Lymphocytes % (Manual) Monocytes % (Manual) Nucleated RBC % Seg Neutrophils # Seg Neutrophils # Man Lymphocytes # (Manual) Monocytes # (Manual) Eosinophils # (Manual) PT INR ABG pH POC ABG pCO2 POC ABG pO2 ABG pO2 ABG Base Excess ABG Hemoglobin ABG Oxyhemoglobin ABG Sodium ABG Potassium ABG Chloride ABG Glucose VBG pH Oxyhemoglobin Carboxyhemoglobin Sodium Potassium Chloride Carbon Dioxide BUN Creatinine Glucose POC Glucose 122 H 117 H 136 H Lactic Acid Calcium Phosphorus Magnesium Total Bilirubin Direct Bilirubin AST ALT Alkaline Phosphatase Ammonia Total Creatine Kinase C-Reactive Protein Total Protein Albumin Lipase Arterial Blood Glucose Arterial Blood Ionized Calcium Urine WBC (Auto) U Epithel Cells (Auto) Acetaminophen Complement C3 Complement C4 Syphilis IgG Antibody HSV I Specific Ab Crossmatch 07/29/20 07/29/20 07/29/20 05:15 12:19 13:34 WBC RBC Hgb Hct MCV MCH MCHC RDW Plt Count Lymph % (Auto) Cole % (Auto) Lymph # (Auto) Cole # (Auto) Eos # (Auto) Seg Neutrophils % Seg Neuts % (Manual) Lymphocytes % (Manual) Monocytes % (Manual) Nucleated RBC % Seg Neutrophils # Seg Neutrophils # Man Lymphocytes # (Manual) Monocytes # (Manual) Eosinophils # (Manual) PT INR ABG pH POC ABG pCO2 POC ABG pO2 ABG pO2 ABG Base Excess ABG Hemoglobin ABG Oxyhemoglobin ABG Sodium ABG Potassium ABG Chloride ABG Glucose VBG pH Oxyhemoglobin Carboxyhemoglobin Sodium Potassium Chloride Carbon Dioxide BUN Creatinine Glucose POC Glucose 128 H 115 H 124 H Lactic Acid Calcium Phosphorus Magnesium Total Bilirubin Direct Bilirubin AST ALT Alkaline Phosphatase Ammonia Total Creatine Kinase C-Reactive Protein Total Protein Albumin Lipase Arterial Blood Glucose Arterial Blood Ionized Calcium Urine WBC (Auto) U Epithel Cells (Auto) Acetaminophen Complement C3 Complement C4 Syphilis IgG Antibody HSV I Specific Ab Crossmatch 07/29/20 07/29/20 07/29/20 13:42 15:00 17:04 WBC 37.2 H RBC 2.90 L Hgb 9.4 L Hct 28.2 L MCV 98 H MCH 33 H MCHC RDW 19.3 H Plt Count 55 L Lymph % (Auto) Cole % (Auto) Lymph # (Auto) Cole # (Auto) Eos # (Auto) Seg Neutrophils % Seg Neuts % (Manual) 93.0 H Lymphocytes % (Manual) 6.0 L Monocytes % (Manual) Nucleated RBC % 2.0 H Seg Neutrophils # Seg Neutrophils # Man 34.6 H Lymphocytes # (Manual) Monocytes # (Manual) Eosinophils # (Manual) PT INR ABG pH POC ABG pCO2 POC ABG pO2 ABG pO2 ABG Base Excess ABG Hemoglobin ABG Oxyhemoglobin ABG Sodium ABG Potassium ABG Chloride ABG Glucose VBG pH Oxyhemoglobin Carboxyhemoglobin Sodium 148 H Potassium Chloride 117.9 H Carbon Dioxide 21 L BUN 62 H Creatinine 1.8 H Glucose 124 H POC Glucose Lactic Acid Calcium 8.1 L Phosphorus Magnesium Total Bilirubin Direct Bilirubin AST ALT Alkaline Phosphatase Ammonia Total Creatine Kinase C-Reactive Protein Total Protein Albumin Lipase Arterial Blood Glucose Arterial Blood Ionized Calcium Urine WBC (Auto) 127.0 H U Epithel Cells (Auto) 18.0 H Acetaminophen Complement C3 Complement C4 Syphilis IgG Antibody HSV I Specific Ab Crossmatch 07/29/20 07/29/20 07/30/20 18:25 21:28 01:57 WBC RBC Hgb Hct MCV MCH MCHC RDW Plt Count Lymph % (Auto) Cole % (Auto) Lymph # (Auto) Cole # (Auto) Eos # (Auto) Seg Neutrophils % Seg Neuts % (Manual) Lymphocytes % (Manual) Monocytes % (Manual) Nucleated RBC % Seg Neutrophils # Seg Neutrophils # Man Lymphocytes # (Manual) Monocytes # (Manual) Eosinophils # (Manual) PT INR ABG pH POC ABG pCO2 POC ABG pO2 ABG pO2 ABG Base Excess ABG Hemoglobin ABG Oxyhemoglobin ABG Sodium ABG Potassium ABG Chloride ABG Glucose VBG pH Oxyhemoglobin Carboxyhemoglobin Sodium Potassium Chloride Carbon Dioxide BUN Creatinine Glucose POC Glucose 129 H 113 H 115 H Lactic Acid Calcium Phosphorus Magnesium Total Bilirubin Direct Bilirubin AST ALT Alkaline Phosphatase Ammonia Total Creatine Kinase C-Reactive Protein Total Protein Albumin Lipase Arterial Blood Glucose Arterial Blood Ionized Calcium Urine WBC (Auto) U Epithel Cells (Auto) Acetaminophen Complement C3 Complement C4 Syphilis IgG Antibody HSV I Specific Ab Crossmatch 07/30/20 07/30/20 07/30/20 05:36 05:46 11:40 WBC RBC Hgb Hct MCV MCH MCHC RDW Plt Count Lymph % (Auto) Cole % (Auto) Lymph # (Auto) Cole # (Auto) Eos # (Auto) Seg Neutrophils % Seg Neuts % (Manual) Lymphocytes % (Manual) Monocytes % (Manual) Nucleated RBC % Seg Neutrophils # Seg Neutrophils # Man Lymphocytes # (Manual) Monocytes # (Manual) Eosinophils # (Manual) PT INR ABG pH POC ABG pCO2 POC ABG pO2 ABG pO2 ABG Base Excess ABG Hemoglobin ABG Oxyhemoglobin ABG Sodium ABG Potassium ABG Chloride ABG Glucose VBG pH Oxyhemoglobin Carboxyhemoglobin Sodium 149 H Potassium Chloride 118.2 H Carbon Dioxide 20 L BUN 64 H Creatinine 2.0 H Glucose 133 H POC Glucose 115 H 126 H Lactic Acid Calcium 7.7 L Phosphorus Magnesium Total Bilirubin Direct Bilirubin AST ALT Alkaline Phosphatase Ammonia Total Creatine Kinase C-Reactive Protein Total Protein Albumin Lipase Arterial Blood Glucose Arterial Blood Ionized Calcium Urine WBC (Auto) U Epithel Cells (Auto) Acetaminophen Complement C3 Complement C4 Syphilis IgG Antibody HSV I Specific Ab Crossmatch 07/30/20 07/30/20 07/31/20 18:11 21:31 01:18 WBC RBC Hgb Hct MCV MCH MCHC RDW Plt Count Lymph % (Auto) Cole % (Auto) Lymph # (Auto) Cole # (Auto) Eos # (Auto) Seg Neutrophils % Seg Neuts % (Manual) Lymphocytes % (Manual) Monocytes % (Manual) Nucleated RBC % Seg Neutrophils # Seg Neutrophils # Man Lymphocytes # (Manual) Monocytes # (Manual) Eosinophils # (Manual) PT INR ABG pH POC ABG pCO2 POC ABG pO2 ABG pO2 ABG Base Excess ABG Hemoglobin ABG Oxyhemoglobin ABG Sodium ABG Potassium ABG Chloride ABG Glucose VBG pH Oxyhemoglobin Carboxyhemoglobin Sodium Potassium Chloride Carbon Dioxide BUN Creatinine Glucose POC Glucose 138 H 140 H 133 H Lactic Acid Calcium Phosphorus Magnesium Total Bilirubin Direct Bilirubin AST ALT Alkaline Phosphatase Ammonia Total Creatine Kinase C-Reactive Protein Total Protein Albumin Lipase Arterial Blood Glucose Arterial Blood Ionized Calcium Urine WBC (Auto) U Epithel Cells (Auto) Acetaminophen Complement C3 Complement C4 Syphilis IgG Antibody HSV I Specific Ab Crossmatch 07/31/20 07/31/20 07/31/20 05:14 17:39 18:43 WBC 25.2 H RBC 3.06 L Hgb Hct 30.0 L MCV 98 H MCH 34 H MCHC 35 H RDW 19.0 H Plt Count 67 L Lymph % (Auto) Cole % (Auto) Lymph # (Auto) Cole # (Auto) Eos # (Auto) Seg Neutrophils % Seg Neuts % (Manual) Lymphocytes % (Manual) Monocytes % (Manual) Nucleated RBC % Seg Neutrophils # Seg Neutrophils # Man Lymphocytes # (Manual) Monocytes # (Manual) Eosinophils # (Manual) PT INR ABG pH POC ABG pCO2 POC ABG pO2 ABG pO2 ABG Base Excess ABG Hemoglobin ABG Oxyhemoglobin ABG Sodium ABG Potassium ABG Chloride ABG Glucose VBG pH Oxyhemoglobin Carboxyhemoglobin Sodium Potassium Chloride Carbon Dioxide BUN Creatinine Glucose POC Glucose 118 H 111 H Lactic Acid Calcium Phosphorus Magnesium Total Bilirubin Direct Bilirubin AST ALT Alkaline Phosphatase Ammonia Total Creatine Kinase C-Reactive Protein Total Protein Albumin Lipase Arterial Blood Glucose Arterial Blood Ionized Calcium Urine WBC (Auto) U Epithel Cells (Auto) Acetaminophen Complement C3 Complement C4 Syphilis IgG Antibody HSV I Specific Ab Crossmatch 07/31/20 07/31/20 07/31/20 18:43 21:14 23:28 WBC RBC Hgb Hct MCV MCH MCHC RDW Plt Count Lymph % (Auto) Cole % (Auto) Lymph # (Auto) Cole # (Auto) Eos # (Auto) Seg Neutrophils % Seg Neuts % (Manual) Lymphocytes % (Manual) Monocytes % (Manual) Nucleated RBC % Seg Neutrophils # Seg Neutrophils # Man Lymphocytes # (Manual) Monocytes # (Manual) Eosinophils # (Manual) PT INR ABG pH POC ABG pCO2 POC ABG pO2 ABG pO2 ABG Base Excess ABG Hemoglobin ABG Oxyhemoglobin ABG Sodium ABG Potassium ABG Chloride ABG Glucose VBG pH Oxyhemoglobin Carboxyhemoglobin Sodium 149 H Potassium Chloride 120.1 H Carbon Dioxide 18 L BUN 64 H Creatinine 2.0 H Glucose 132 H POC Glucose 117 H 123 H Lactic Acid Calcium 8.1 L Phosphorus Magnesium Total Bilirubin Direct Bilirubin AST ALT Alkaline Phosphatase Ammonia Total Creatine Kinase C-Reactive Protein Total Protein Albumin Lipase Arterial Blood Glucose Arterial Blood Ionized Calcium Urine WBC (Auto) U Epithel Cells (Auto) Acetaminophen Complement C3 Complement C4 Syphilis IgG Antibody HSV I Specific Ab Crossmatch 08/01/20 08/01/20 01:57 05:40 WBC RBC Hgb Hct MCV MCH MCHC RDW Plt Count Lymph % (Auto) Cole % (Auto) Lymph # (Auto) Cole # (Auto) Eos # (Auto) Seg Neutrophils % Seg Neuts % (Manual) Lymphocytes % (Manual) Monocytes % (Manual) Nucleated RBC % Seg Neutrophils # Seg Neutrophils # Man Lymphocytes # (Manual) Monocytes # (Manual) Eosinophils # (Manual) PT INR ABG pH POC ABG pCO2 POC ABG pO2 ABG pO2 ABG Base Excess ABG Hemoglobin ABG Oxyhemoglobin ABG Sodium ABG Potassium ABG Chloride ABG Glucose VBG pH Oxyhemoglobin Carboxyhemoglobin Sodium Potassium Chloride Carbon Dioxide BUN Creatinine Glucose POC Glucose 119 H 123 H Lactic Acid Calcium Phosphorus Magnesium Total Bilirubin Direct Bilirubin AST ALT Alkaline Phosphatase Ammonia Total Creatine Kinase C-Reactive Protein Total Protein Albumin Lipase Arterial Blood Glucose Arterial Blood Ionized Calcium Urine WBC (Auto) U Epithel Cells (Auto) Acetaminophen Complement C3 Complement C4 Syphilis IgG Antibody HSV I Specific Ab Crossmatch
--- NOTE | 2020-08-01 09:06 | Progress Note ---
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 Syphilis Plan: -Labs pending today, good UOP -Off pressors -On D10 infusion at 50 ml/hr for hypoglycemia -S/p blood transfusion -S/p Albumin -Neurology evaluated pt, check MRI Brain, follow up recs -Monitor I/O's daily -Kenney Catheter: Yes Subjective Date of service: 08/01/20 Principal diagnosis: Sepsis, anoxic encephalopathy Interval history: remains unresponsive, no family at bedside Objective - Vital Signs Vital signs: Vital Signs - 12hr 07/31/20 07/31/20 07/31/20 21:15 21:30 21:45 Temperature Pulse Rate 56 L 55 L 55 L Pulse Rate [ From Monitor] Respiratory 18 18 18 Rate Blood Pressure 142/97 130/87 138/94 O2 Sat by Pulse 97 95 95 Oximetry 07/31/20 07/31/20 07/31/20 22:00 22:15 22:30 Temperature Pulse Rate 54 L 54 L 54 L Pulse Rate [ From Monitor] Respiratory 18 18 18 Rate Blood Pressure 133/89 139/96 137/94 O2 Sat by Pulse 95 96 96 Oximetry 07/31/20 07/31/20 07/31/20 22:45 23:00 23:15 Temperature Pulse Rate 53 L 54 L 53 L Pulse Rate [ From Monitor] Respiratory 18 18 18 Rate Blood Pressure 140/95 145/98 144/100 O2 Sat by Pulse 96 96 97 Oximetry 07/31/20 07/31/20 07/31/20 23:31 23:45 23:55 Temperature 96.8 F L Pulse Rate 54 L 53 L Pulse Rate [ From Monitor] Respiratory 18 18 Rate Blood Pressure 173/115 173/115 O2 Sat by Pulse 98 96 Oximetry 08/01/20 08/01/20 08/01/20 00:00 00:15 00:31 Temperature Pulse Rate 63 53 L 52 L Pulse Rate [ 53 L From Monitor] Respiratory 18 18 18 Rate Blood Pressure 158/106 160/108 161/101 O2 Sat by Pulse 96 97 95 Oximetry 08/01/20 08/01/20 08/01/20 00:45 01:01 01:15 Temperature Pulse Rate 53 L 52 L 52 L Pulse Rate [ From Monitor] Respiratory 18 18 18 Rate Blood Pressure 156/109 156/109 160/110 O2 Sat by Pulse 96 96 96 Oximetry 08/01/20 08/01/20 08/01/20 01:30 01:45 02:00 Temperature Pulse Rate 52 L 52 L 53 L Pulse Rate [ From Monitor] Respiratory 18 18 18 Rate Blood Pressure 153/109 158/107 169/115 O2 Sat by Pulse 96 96 97 Oximetry 08/01/20 08/01/20 08/01/20 02:15 02:30 02:45 Temperature Pulse Rate 51 L 53 L 50 L Pulse Rate [ From Monitor] Respiratory 18 18 18 Rate Blood Pressure 169/115 172/113 149/100 O2 Sat by Pulse 95 99 97 Oximetry 08/01/20 08/01/20 08/01/20 03:01 03:15 03:30 Temperature Pulse Rate 50 L 50 L 50 L Pulse Rate [ From Monitor] Respiratory 18 18 18 Rate Blood Pressure 147/106 140/100 150/103 O2 Sat by Pulse 97 97 97 Oximetry 08/01/20 08/01/20 08/01/20 03:45 04:00 04:11 Temperature 96.4 F L Pulse Rate 49 L 50 L 50 L Pulse Rate [ 50 L From Monitor] Respiratory 18 18 18 Rate Blood Pressure 148/104 O2 Sat by Pulse 98 97 98 Oximetry 08/01/20 08/01/20 08/01/20 04:16 04:31 04:33 Temperature Pulse Rate 50 L 50 L 50 L Pulse Rate [ From Monitor] Respiratory 18 18 Rate Blood Pressure 156/104 136/98 136/98 O2 Sat by Pulse 97 96 97 Oximetry 08/01/20 08/01/20 08/01/20 04:45 05:01 05:15 Temperature Pulse Rate 51 L 52 L 53 L Pulse Rate [ From Monitor] Respiratory 18 18 18 Rate Blood Pressure 137/98 136/88 131/87 O2 Sat by Pulse 96 95 95 Oximetry 08/01/20 08/01/20 08/01/20 05:31 05:45 06:01 Temperature Pulse Rate 53 L 55 L 56 L Pulse Rate [ From Monitor] Respiratory 18 18 18 Rate Blood Pressure 127/83 132/87 126/78 O2 Sat by Pulse 94 94 93 Oximetry - General Appearance General appearance: well-developed EENT: ATNC, PERRL, mucous membranes dry Neck: no JVD, no carotid bruit Respiratory: Present: Decreased Breath Sounds Cardiology: regular, S1S2 Gastrointestinal: normoactive bowel sounds Neurologic: other (does not follow commands) Musculoskeletal: other (1+ edema in BLE) Psychiatric: other (does not answer questions) - Lab 07/31/20 18:43 07/31/20 18:43 Most recent lab results ABG pH 7.412 (7.320-7.450) 07/28/20 05:09 ABG pCO2 31.2 mm Hg 07/22/20 04:25 ABG pO2 104.9 mm Hg (80.0-90.0) H 07/22/20 04:25 ABG HCO3 23.7 mmol/L (20.0-26.0) 07/22/20 04:25 ABG O2 Saturation 98.1 % (95.0-99.0) 07/22/20 04:25 Calcium 8.1 mg/dL (8.4-10.2) L 07/31/20 18:43 Phosphorus 2.30 mg/dL (2.5-4.5) L D 07/24/20 10:14 Magnesium 2.10 mg/dL (1.7-2.3) 07/27/20 16:43 Medications & Allergies - Medications Allergies/Adverse Reactions: Allergies No Known Allergies Allergy (Verified 07/16/20 22:03) Home Medications: Home Medications Medication Instructions Recorded Confirmed Last Taken Type No Known Home Medications [No 07/17/20 07/17/20 Unknown History Reported Home Medications] Active Medications: Generic Name Dose Route Start Last Admin Trade Name Freq PRN Reason Stop Dose Admin Acetaminophen 650 mg 07/23/20 00:37 07/23/20 01:05 Acetaminophen 325 Mg/10.15 Ml Oral Liqd Unit Dose FEEDTUBE 650 mg Q6H PRN Administration Fever >101 Lipase/Protease/Amylase 1 each 07/23/20 08:37 Lipase 10,500/Protease 25,000/Amylase 43,750 (Units) Dr Sher FEEDTUBE PRN PRN For Clogged Feeding Tube Thiamine HCl 100 mg/ Sodium 51 mls @ 100 mls/hr 07/18/20 10:00 07/31/20 10:41 Chloride IV 100 mls/hr QDAY ESTELA Administration Folic Acid 1 mg/ Sodium 50.2 mls @ 200.8 mls/hr 07/18/20 10:00 07/31/20 10:41 Chloride IV 200.8 mls/hr QDAY ESTELA Administration Vasopressin 20 unit/ Sodium 101 mls @ 9.09 mls/hr 07/19/20 10:00 07/30/20 14:08 Chloride IV 0 units/min TITR ESTELA 0 mls/hr Titration Protocol 0.03 UNITS/MIN Norepinephrine 8 mg/ Sodium 250 mls @ 3.75 mls/hr 07/19/20 21:00 07/30/20 23:00 Chloride IV 0 mcg/min TITR ESTELA 0 mls/hr Titration Protocol 2 MCG/MIN Dextrose 1,000 mls @ 50 mls/hr 07/25/20 09:00 08/01/20 04:09 D10w IV 50 mls/hr DIRECT ESTELA Administration Magnesium Hydroxide 30 ml 07/17/20 03:56 Magnesium Hydroxide (Mom) Oral Liqd Udc PO Q4H PRN Constipation Ondansetron HCl 4 mg 07/17/20 03:56 07/18/20 20:00 Ondansetron 4 Mg/2 Ml Inj IV 4 mg Q8H PRN Administration Nausea And Vomiting Pantoprazole Sodium 40 mg 08/01/20 10:00 Pantoprazole 40 Mg Inj IV BID ESTELA Simple Syrup 15 ml 07/23/20 08:37 Simple Syrup 15 Ml FEEDTUBE PRN PRN Hypoglycemia Simple Syrup 30 ml 07/23/20 08:37 Simple Syrup 15 Ml FEEDTUBE PRN PRN Hypoglycemia Sodium Bicarbonate 325 mg 07/23/20 08:37 Sodium Bicarbonate 325 Mg Tab FEEDTUBE PRN PRN For Clogged Feeding Tube Sodium Chloride 10 ml 07/17/20 10:00 07/31/20 10:42 Sodium Chloride 0.9% 10 Ml Flush Syringe IV 10 ml BID ESTELA Administration Sodium Chloride 10 ml 07/17/20 03:56 Sodium Chloride 0.9% 10 Ml Flush Syringe IV PRN PRN LINE FLUSH
[2020-08-01 09:10] LABS: Calcium 8.2 mg/dL (8.4-10.2)
[2020-08-01] MEDS: THIAMINE 100 MG in SODIUM CHLORIDE 0.9% 50 ML IV SCH (10:15)
[2020-08-01] MEDS: PANTOPRAZOLE 40 MG INJ IV SCH ×2 (10:15→22:03)
[2020-08-01] MEDS: FOLIC ACID 1 MG in SODIUM CHLORIDE 0.9% 50 ML IV SCH (10:15)
--- NOTE | 2020-08-01 13:04 | Progress Note ---
Assessment and Plan Assessment and plan: Anoxic encephalopathy High possibility given cardiac arrest and respiratory failure EEG requested Severe sepsis with septic shock Continue IV antibiotics Acute respiratory failure Try weaning from ventilator support Acute liver failure Supportive care, GI team consulted. Pt has poor prognosis, and currently unstable for transfer. Metabolic acidosis BMP, IV bicarbonate therapy, repeat BMP UTI (urinary tract infection) IV antibiotic therapy, supportive care. Acute kidney injury (RINA) with acute tubular necrosis (ATN) Nephrology team consulted, IV fluid resuscitation therapy, monitor urine output every shift, monitor fluid balance, supportive care. Cardiac arrest Patient experienced cardiac arrest overnight. Patient treated with ACLS protocol with eventual return of perfusing cardiac rhythm. Patient has poor prognosis. Toxic metabolic encephalopathy .Suspect anoxic brain injury. History Interval history: Pupils are fixed and dilated. Hospitalist Physical - Constitutional Vitals: Temp Pulse Resp BP Pulse Ox 96.4 F L 69 18 127/62 98 08/01/20 04:00 08/01/20 10:00 08/01/20 10:00 08/01/20 10:00 08/01/20 10:00 General appearance: Present: no acute distress, well-nourished, other (Intubated on mechanical ventilation) - EENT ENT: clear oral mucosa, dentition normal - Neck Neck: Present: supple - Respiratory Respiratory effort: normal Respiratory: bilateral: CTA - Cardiovascular Rhythm: regular Heart Sounds: Present: S1 & S2. Absent: gallop, rub - Extremities Extremities: no ischemia, No edema, Full ROM - Abdominal General gastrointestinal: soft, non-tender, non-distended, normal bowel sounds - Integumentary Integumentary: Present: clear, warm, dry - Neurologic Neurologic: other (Pupils are fixed and dilated) HEART Score - HEART Score Troponin: Troponin T < 0.010 ng/mL (0.00-0.029) 07/16/20 20:47 Results - Labs CBC & Chem 7: 07/31/20 18:43 08/01/20 07:26 Labs: Laboratory Last Values WBC 25.2 K/mm3 (4.5-11.0) H 07/31/20 18:43 RBC 3.06 M/mm3 (3.65-5.03) L 07/31/20 18:43 Hgb 10.4 gm/dl (10.1-14.3) 07/31/20 18:43 Hct 30.0 % (30.3-42.9) L 07/31/20 18:43 MCV 98 fl (79-97) H 07/31/20 18:43 MCH 34 pg (28-32) H 07/31/20 18:43 MCHC 35 % (30-34) H 07/31/20 18:43 RDW 19.0 % (13.2-15.2) H 07/31/20 18:43 Plt Count 67 K/mm3 (140-440) L 07/31/20 18:43 Lymph % (Auto) 9.7 % (13.4-35.0) L 07/19/20 05:41 [place] % (Auto) Inclusion Intern 07/23/20 07:39 Eos % (Auto) 0.8 % (0.0-4.3) 07/19/20 05:41 Baso % (Auto) 0.0 % (0.0-1.8) 07/19/20 05:41 Lymph # (Auto) Inclusion Intern 07/23/20 07:39 [place] # (Auto) 1.3 K/mm3 (0.0-0.8) H 07/19/20 05:41 Eos # (Auto) 0.1 K/mm3 (0.0-0.4) 07/19/20 05:41 Baso # (Auto) 0.0 K/mm3 (0.0-0.1) 07/19/20 05:41 Add Manual Diff Complete 07/29/20 17:04 Total Counted 100 07/29/20 17:04 Seg Neutrophils % Inclusion Intern 07/29/20 17:04 Seg Neuts % (Manual) 93.0 % (40.0-70.0) H 07/29/20 17:04 Band Neutrophils % 11.0 % 07/27/20 04:45 Lymphocytes % (Manual) 6.0 % (13.4-35.0) L 07/29/20 17:04 Monocytes % (Manual) 1.0 % (0.0-7.3) 07/29/20 17:04 Eosinophils % (Manual) 2.0 % (0.0-4.3) 07/23/20 07:39 Metamyelocytes % 1.0 % 07/27/20 04:45 Myelocytes % 1.0 % 07/19/20 05:41 Nucleated RBC % 2.0 % (0.0-0.9) H 07/29/20 17:04 Seg Neutrophils # 12.9 K/mm3 (1.8-7.7) H 07/19/20 05:41 Seg Neutrophils # Man 34.6 K/mm3 (1.8-7.7) H 07/29/20 17:04 Band Neutrophils # 0.0 K/mm3 07/29/20 17:04 Lymphocytes # (Manual) 2.2 K/mm3 (1.2-5.4) 07/29/20 17:04 Abs React Lymphs (Man) 0.0 K/mm3 07/29/20 17:04 Monocytes # (Manual) 0.4 K/mm3 (0.0-0.8) 07/29/20 17:04 Eosinophils # (Manual) 0.0 K/mm3 (0.0-0.4) 07/29/20 17:04 Basophils # (Manual) 0.0 K/mm3 (0.0-0.1) 07/29/20 17:04 Metamyelocytes # 0.0 K/mm3 07/29/20 17:04 Myelocytes # 0.0 K/mm3 07/29/20 17:04 Promyelocytes # 0.0 K/mm3 07/29/20 17:04 Blast Cells # 0.0 K/mm3 07/29/20 17:04 Pathologist Review 07/16/20 20:47 WBC Morphology Not Reportable 07/29/20 17:04 Hypersegmented Neuts Not Reportable 07/29/20 17:04 Hyposegmented Neuts Not Reportable 07/29/20 17:04 Hypogranular Neuts Not Reportable 07/29/20 17:04 Smudge Cells Not Reportable 07/29/20 17:04 Toxic Granulation Not Reportable 07/29/20 17:04 Toxic Vacuolation Not Reportable 07/29/20 17:04 Dohle Bodies Not Reportable 07/29/20 17:04 Pelger-Huet Anomaly Not Reportable 07/29/20 17:04 Fede Rods Not Reportable 07/29/20 17:04 Platelet Estimate Consistent w auto 07/29/20 17:04 Clumped Platelets Not Reportable 07/29/20 17:04 Plt Clumps, EDTA Not Reportable 07/29/20 17:04 Large Platelets Not Reportable 07/29/20 17:04 Giant Platelets Not Reportable 07/29/20 17:04 Platelet Satelliting Not Reportable 07/29/20 17:04 Plt Morphology Comment Not Reportable 07/29/20 17:04 RBC Morphology Not Reportable 07/29/20 17:04 Dimorphic RBCs Not Reportable 07/29/20 17:04 Polychromasia Few 07/29/20 17:04 Hypochromasia Not Reportable 07/29/20 17:04 Poikilocytosis 1+ 07/29/20 17:04 Anisocytosis 1+ 07/29/20 17:04 Microcytosis Not Reportable 07/29/20 17:04 Macrocytosis Not Reportable 07/29/20 17:04 Spherocytes Not Reportable 07/29/20 17:04 Pappenheimer Bodies Not Reportable 07/29/20 17:04 Sickle Cells Not Reportable 07/29/20 17:04 Target Cells 1+ 07/29/20 17:04 Tear Drop Cells Not Reportable 07/29/20 17:04 Ovalocytes Few 07/29/20 17:04 Helmet Cells Not Reportable 07/29/20 17:04 Donaldson-[place] Bodies Not Reportable 07/29/20 17:04 [place] Rings Not Reportable 07/29/20 17:04 Shashank Cells Not Reportable 07/29/20 17:04 Bite Cells Not Reportable 07/29/20 17:04 Crenated Cell Not Reportable 07/29/20 17:04 Elliptocytes Not Reportable 07/29/20 17:04 Acanthocytes (Spur) Not Reportable 07/29/20 17:04 Rouleaux Not Reportable 07/29/20 17:04 Hemoglobin C Crystals Not Reportable 07/29/20 17:04 Schistocytes Not Reportable 07/29/20 17:04 Malaria parasites Not Reportable 07/29/20 17:04 Richard Bodies Not Reportable 07/29/20 17:04 Hem Pathologist Commnt No 07/29/20 17:04 PT 21.2 Sec. (12.2-14.9) H 07/26/20 14:47 INR 1.83 (0.87-1.13) H 07/26/20 14:47 ABG pH 7.412 (7.320-7.450) 07/28/20 05:09 POC ABG pCO2 33.4 mmHg (32.0-48.0) 07/28/20 05:09 ABG pCO2 31.2 mm Hg 07/22/20 04:25 POC ABG pO2 67.3 mmHg (83-108) L 07/28/20 05:09 ABG pO2 104.9 mm Hg (80.0-90.0) H 07/22/20 04:25 POC ABG HCO3 20.8 07/28/20 05:09 ABG HCO3 23.7 mmol/L (20.0-26.0) 07/22/20 04:25 ABG O2 Saturation 98.1 % (95.0-99.0) 07/22/20 04:25 ABG O2 Content 11.7 (0.0-44) 07/22/20 04:25 POC ABG Base Excess -3.2 07/28/20 05:09 ABG Base Excess 0.8 mmol/L (-2.0-3.0) 07/22/20 04:25 ABG Hemoglobin 10.5 (12.0-17.5) L 07/28/20 05:09 ABG Oxyhemoglobin 90.9 (94-98) L 07/28/20 05:09 ABG Carboxyhemoglobin 2.3 % (0.0-5.0) 07/22/20 04:25 ABG Methemoglobin 0.3 (0.0-1.5) 07/28/20 05:09 ABG Sodium 145.0 mmol/L (136.0-145.0) 07/28/20 05:09 ABG Potassium 3.9 mmol/L (3.40-4.50) 07/28/20 05:09 ABG Chloride 117.0 mmol/L (98-107) H 07/28/20 05:09 ABG Glucose 105 mg/dL (65-95) H 07/28/20 05:09 VBG pH 7.085 (7.320-7.420) L* 07/17/20 01:46 Oxyhemoglobin 95.4 % (95.0-99.0) 07/22/20 04:25 Carboxyhemoglobin 1.0 (0.5-1.5) 07/28/20 05:09 FiO2 30.0 07/28/20 05:09 Sodium 154 mmol/L (137-145) H 08/01/20 07:26 Potassium 4.5 mmol/L (3.6-5.0) 08/01/20 07:26 Chloride 123.4 mmol/L (98-107) H 08/01/20 07:26 Carbon Dioxide 23 mmol/L (22-30) 08/01/20 07:26 Anion Gap 12 mmol/L 08/01/20 07:26 BUN 60 mg/dL (7-17) H 08/01/20 07:26 Creatinine 1.9 mg/dL (0.6-1.2) H 08/01/20 07:26 Estimated GFR 38 ml/min 08/01/20 07:26 BUN/Creatinine Ratio 32 % 08/01/20 07:26 Glucose 115 mg/dL (65-100) H 08/01/20 07:26 POC Glucose 112 mg/dL (70-105) H 08/01/20 09:51 Lactic Acid 3.90 mmol/L (0.7-2.0) H* 07/19/20 Unknown Calcium 8.2 mg/dL (8.4-10.2) L 08/01/20 07:26 Phosphorus 2.30 mg/dL (2.5-4.5) L D 07/24/20 10:14 Magnesium 2.10 mg/dL (1.7-2.3) 07/27/20 16:43 Total Bilirubin 9.70 mg/dL (0.1-1.2) H 07/28/20 09:42 Direct Bilirubin 8.6 mg/dL (0-0.2) H 07/26/20 14:47 Indirect Bilirubin 2.7 mg/dL 07/26/20 14:47 AST 195 units/L (5-40) H 07/28/20 09:42 ALT 99 units/L (7-56) H 07/28/20 09:42 Alkaline Phosphatase 422 units/L (35-129) H 07/28/20 09:42 Ammonia 50.0 umol/L (25-60) 07/31/20 14:59 Total Creatine Kinase 332 units/L (30-135) H 07/17/20 09:23 Troponin T < 0.010 ng/mL (0.00-0.029) 07/16/20 20:47 C-Reactive Protein 17.20 mg/dL (0.00-1.30) H 07/23/20 23:52 Total Protein 5.2 g/dL (6.3-8.2) L D 07/28/20 09:42 Albumin 2.1 g/dL (3.9-5) L 07/28/20 09:42 Albumin/Globulin Ratio 0.7 % 07/28/20 09:42 Lipase 14 units/L (13-60) 07/17/20 01:46 Procalcitonin 13.66 ng/mL (<0.15) 07/23/20 23:52 TSH 0.354 mlU/mL (0.270-4.200) 07/16/20 20:47 HCG, Qual Negative (Negative) 07/19/20 07:35 Arterial Blood Glucose 105 mg/dL (65-95) H 07/28/20 05:09 Arterial Blood Ionized Calcium 4.7 mg/dL (4.6-5.3) 07/28/20 05:09 Urine Color Aide (Yellow) 07/29/20 15:00 Urine Turbidity Cloudy (Clear) 07/29/20 15:00 Urine pH 6.0 (5.0-7.0) 07/29/20 15:00 Ur Specific [place] 1.016 (1.003-1.030) 07/29/20 15:00 Urine Protein 30 mg/dl mg/dL (Negative) 07/29/20 15:00 Urine Glucose (UA) Neg mg/dL (Negative) 07/29/20 15:00 Urine Ketones Neg mg/dL (Negative) 07/29/20 15:00 Urine Blood Sm (Negative) 07/29/20 15:00 Urine Nitrite Neg (Negative) 07/29/20 15:00 Urine Bilirubin Sm (Negative) 07/29/20 15:00 Urine Ictotest Positive (Negative) 07/29/20 15:00 Urine Urobilinogen 4.0 mg/dL (<2.0) 07/29/20 15:00 Ur Leukocyte Esterase Mod (Negative) 07/29/20 15:00 Urine WBC (Auto) 127.0 /HPF (0.0-6.0) H 07/29/20 15:00 Urine RBC (Auto) 24.0 /HPF (0.0-6.0) 07/29/20 15:00 U Epithel Cells (Auto) 18.0 /HPF (0-13.0) H 07/29/20 15:00 Urine Bacteria (Auto) 4+ /HPF (Negative) 07/23/20 Unknown Urine WBC Clumps 3+ /HPF 07/23/20 Unknown Urine Mucus 1+ /HPF 07/29/20 15:00 Urine Yeast (Budding) 3+ /HPF 07/29/20 15:00 Nasal Screen MRSA (PCR) Negative (Negative) 07/23/20 13:19 Acetaminophen 5.0 ug/mL (10.0-30.0) L 07/17/20 09:23 MARY Screen Negative (Negative) 07/17/20 11:08 Complement C3 55 mg/dL (83-193) L 07/23/20 23:52 Complement C4 11 mg/dL (15-57) L 07/23/20 23:52 Syphilis IgG Antibody Reactive (NonReactive) A 07/17/20 11:08 RPR Titer Nr 07/17/20 11:08 T.pallidum Ab (FTA-ABS) Nonreactive (Nonreactive) 07/18/20 Unknown C.trachomatis DNA (SDA) Not detected (Not Detected) 07/17/20 02:25 Hepatitis A IgM Ab Non-reactive (NonReactive) 07/17/20 11:08 Hep Bs Antigen Non-reactive (Negative) 07/17/20 11:08 Hep B Core IgM Ab Non-reactive (NonReactive) 07/17/20 11:08 Hepatitis C Antibody Non-reactive (NonReactive) 07/17/20 11:08 HSV I Specific Ab 5.23 Index (<0.90) H 07/17/20 11:08 HIV 1&2 Antibody Rapid Non react (Non React) 07/17/20 11:08 HIV P24 Antigen Non react (Non React) 07/17/20 11:08 N.gonorrhoeae DNA (SDA) Not detected (Not Detected) 07/17/20 02:25 Blood Type O POSITIVE 07/29/20 17:05 Antibody Screen Negative 07/29/20 17:05 Crossmatch See Detail 07/27/20 08:45 Microbiology: Microbiology 07/28/20 10:25 Peripheral/Venous Blood Culture - Preliminary NO GROWTH AFTER 4 DAYS 07/28/20 09:42 Peripheral/Venous Blood Culture - Preliminary NO GROWTH AFTER 4 DAYS 07/29/20 15:00 Urine,[place] Urine Culture - Final [place]/IV: Voiding Method Indwelling Catheter IV Catheter Type [Right Triple Lumen Cath Femoral] IV Catheter Type [Right Hand] Peripheral IV IV Catheter Type [Left Hand] INT / Saline Lock IV Catheter Type [Acetadote ( Peripheral IV Acetylcysteine IV) 7,500 mg In D5w 1,000 ml @ 62.5 mls/hr IV ONCE ONE Rx#:[id number]] IV Catheter Type [Sodium Triple Lumen Cath Bicarbonate 50 Meq In NaCl 0.9 % 1000 ml 1,000 ml @ 100 mls/ hr IV DIRECT ESTELA Rx#: [id number]] Active Medications - Current Medications Current Medications: Generic Name Dose Route Start Last Admin Trade Name Freq PRN Reason Stop Dose Admin Acetaminophen 650 mg 07/23/20 00:37 07/23/20 01:05 Acetaminophen 325 Mg/10.15 Ml Oral Liqd Unit Dose FEEDTUBE 650 mg Q6H PRN Administration Fever >101 Lipase/Protease/Amylase 1 each 07/23/20 08:37 Lipase 10,500/Protease 25,000/Amylase 43,750 (Units) Dr Sher FEEDTUBE PRN PRN For Clogged Feeding Tube Thiamine HCl 100 mg/ Sodium 51 mls @ 100 mls/hr 07/18/20 10:00 08/01/20 10:15 Chloride IV 100 mls/hr QDAY ESTELA Administration Folic Acid 1 mg/ Sodium 50.2 mls @ 200.8 mls/hr 07/18/20 10:00 08/01/20 10:15 Chloride IV 200.8 mls/hr QDAY ESTELA Administration Vasopressin 20 unit/ Sodium 101 mls @ 9.09 mls/hr 07/19/20 10:00 07/30/20 14:08 Chloride IV 0 units/min TITR ESTELA 0 mls/hr Titration Protocol 0.03 UNITS/MIN Norepinephrine 8 mg/ Sodium 250 mls @ 3.75 mls/hr 07/19/20 21:00 07/30/20 23:00 Chloride IV 0 mcg/min TITR ESTELA 0 mls/hr Titration Protocol 2 MCG/MIN Dextrose 1,000 mls @ 50 mls/hr 07/25/20 09:00 08/01/20 04:09 D10w IV 50 mls/hr DIRECT ESTELA Administration Magnesium Hydroxide 30 ml 07/17/20 03:56 Magnesium Hydroxide (Mom) Oral Liqd Udc PO Q4H PRN Constipation Ondansetron HCl 4 mg 07/17/20 03:56 07/18/20 20:00 Ondansetron 4 Mg/2 Ml Inj IV 4 mg Q8H PRN Administration Nausea And Vomiting Pantoprazole Sodium 40 mg 08/01/20 10:00 08/01/20 10:15 Pantoprazole 40 Mg Inj IV 40 mg BID ESTELA Administration Simple Syrup 15 ml 07/23/20 08:37 Simple Syrup 15 Ml FEEDTUBE PRN PRN Hypoglycemia Simple Syrup 30 ml 07/23/20 08:37 Simple Syrup 15 Ml FEEDTUBE PRN PRN Hypoglycemia Sodium Bicarbonate 325 mg 07/23/20 08:37 Sodium Bicarbonate 325 Mg Tab FEEDTUBE PRN PRN For Clogged Feeding Tube Sodium Chloride 10 ml 07/17/20 10:00 08/01/20 10:16 Sodium Chloride 0.9% 10 Ml Flush Syringe IV 10 ml BID ESTELA Administration Sodium Chloride 10 ml 07/17/20 03:56 Sodium Chloride 0.9% 10 Ml Flush Syringe IV PRN PRN LINE FLUSH Nutrition/Malnutrition Assess - Dietary Evaluation Nutrition/Malnutrition Findings: Nutrition Notes Start: 07/23/20 08:22 Freq: Status: Active Protocol: Document 08/01/20 12:31 AB (Rec: 08/01/20 12:46 AB [id number]) Co-Sign 08/01/20 12:31 NHALL Nutrition Notes Initial or Follow up Brief Note Current Diagnosis Acute Kidney Injury,Sepsis, Respiratory Failure Other Pertinent Diagnosis Acute liver failurem UTI, cardiac arrest, ETOH dependence Current Diet Vital 1.2 at 50 ml/hr Labs/Tests Na 154 BUN 60 Cr 1.9 BG 115 Subjective/Other Information F/U for TF start. Per RN, TF continues to be stopped d/t NGT bleed. Pt still has not had BM. Nutrition Intervention Follow-Up By: 08/03/20 Additional Comments F/U for TF start, BM
[2020-08-01 14:14] LABS: HSV 1 IgG Type-Specific Ab SEE SCANNED RESULT; HSV 2 IgG Type-Specific Ab SEE SCANNED RESULT
--- NOTE | 2020-08-01 14:58 | Progress Note ---
Assessment and Plan Cultures: 07/16/2020 blood culture: no growth 07/17/2020 cervix wet prep: High number of clue cells, no trichomonas or yeast seen. 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 #Severe sepsis septic shock/MODS: remains on pressors. No clear infectious etiology. Likely secondary to acute hepatic failure. #Bilateral pneumonia versus pulmonary edema: Bilateral pleural effusions, diffuse bilateral patchy groundglass opacities. Completed empiric abx. #Acute hepatic failure: ?Toxin/med related v/s autoimmune, less likely infectious. Also ruling out HSV induced hepatic necrosis and related fulminant hepatic failure. GI also evaluated. LFTs and synthetic liver function continue to improve. MARY negative, C3, C4 low. #Acute kidney injury: resolved #Possible UTI/PID: completed empiric abx. GC NAAT negative. #Diffuse colitis noted on CT scan: s/p antibiotics. On multiple pressors. More likely to be ischemia related. No active diarrhea. #Acute encephalopathy, diffuse cerebral edema: Probably a combination of acute liver failure and hypoxic encephalopathy. #Acute thrombocytopenia #Anemia #Syphilis IgG positive, RPR titer non reactive, FTA-ABS is also nonreactive, so very likely it is a false positive Recs: -Completed acyclovir -Family considering hospice/comfort . -overall guarded prognosis Usha Martinez MD [facility] O: [phone] F: [phone] Subjective Date of service: 08/01/20 Principal diagnosis: Sepsis, anoxic encephalopathy Interval history: Afebrile now white count remains. All cultures remain negative at this time. Imaging personally reviewed: Brain MRI: marked abnormality. Slow/absent flow Objective - Exam Narrative Exam: Constitutional: unresponsive, intubated, on the vent Head, Ears, Nose: Normocephalic, atraumatic. Eyes: Conjunctivae/corneas clear. Neck: intubated Oral: intubated Cardiovascular: S1, S2 + Respiratory: AE fair bilaterally and equal GI: Soft, bowel sounds hypo Musculoskeletal: anasarca + Skin: No rash or abscess Hem/Lymphatic: No palpable cervical or supraclavicular nodes. No lymphangitis Psych: no agitation Neurological: unresponsive, intubated, on the vent, exam limited - Constitutional Vitals: Vital Signs Temp Pulse Resp BP Pulse Ox 98.2 F 71 18 124/55 97 08/01/20 12:00 08/01/20 14:15 08/01/20 14:15 08/01/20 14:15 08/01/20 14:15 Temperature -Last 24 Hours Temperature 98.2 F Temperature 97.3 F Temperature 96.4 F Temperature 96.8 F Temperature 97.2 F Temperature 97.9 F - Labs CBC & Chem 7: 07/31/20 18:43 08/01/20 07:26 Labs: Abnormal lab results 07/31/20 07/31/20 07/31/20 Range/Units 17:39 18:43 18:43 WBC 25.2 H (4.5-11.0) K/mm3 RBC 3.06 L (3.65-5.03) M/mm3 Hct 30.0 L (30.3-42.9) % MCV 98 H (79-97) fl MCH 34 H (28-32) pg MCHC 35 H (30-34) % RDW 19.0 H (13.2-15.2) % Plt Count 67 L (140-440) K/mm3 Sodium 149 H (137-145) mmol/L Chloride 120.1 H (98-107) mmol/L Carbon Dioxide 18 L (22-30) mmol/L BUN 64 H (7-17) mg/dL Creatinine 2.0 H (0.6-1.2) mg/dL Glucose 132 H (65-100) mg/dL POC Glucose 111 H (70-105) mg/dL Calcium 8.1 L (8.4-10.2) mg/dL 07/31/20 07/31/20 08/01/20 Range/Units 21:14 23:28 01:57 WBC (4.5-11.0) K/mm3 RBC (3.65-5.03) M/mm3 Hct (30.3-42.9) % MCV (79-97) fl MCH (28-32) pg MCHC (30-34) % RDW (13.2-15.2) % Plt Count (140-440) K/mm3 Sodium (137-145) mmol/L Chloride (98-107) mmol/L Carbon Dioxide (22-30) mmol/L BUN (7-17) mg/dL Creatinine (0.6-1.2) mg/dL Glucose (65-100) mg/dL POC Glucose 117 H 123 H 119 H (70-105) mg/dL Calcium (8.4-10.2) mg/dL 08/01/20 08/01/20 08/01/20 Range/Units 05:40 07:26 09:51 WBC (4.5-11.0) K/mm3 RBC (3.65-5.03) M/mm3 Hct (30.3-42.9) % MCV (79-97) fl MCH (28-32) pg MCHC (30-34) % RDW (13.2-15.2) % Plt Count (140-440) K/mm3 Sodium 154 H (137-145) mmol/L Chloride 123.4 H (98-107) mmol/L Carbon Dioxide (22-30) mmol/L BUN 60 H (7-17) mg/dL Creatinine 1.9 H (0.6-1.2) mg/dL Glucose 115 H (65-100) mg/dL POC Glucose 123 H 112 H (70-105) mg/dL Calcium 8.2 L (8.4-10.2) mg/dL
[2020-08-01 19:59] LABS: Mean Corpuscular HGB Conc 27 % (30-34); Red Blood Count 1.64 M/mm3 (3.65-5.03)
[2020-08-01 20:09] LABS: Hematocrit 20.5 % (30.3-42.9); Hemoglobin 5.5 gm/dl (10.1-14.3); Mean Corpuscular Volume 125 fl (79-97); Red Cell Distribution Width 22.9 % (13.2-15.2)
[2020-08-01 20:10] LABS: Platelet Count 64 K/mm3 (140-440)
[2020-08-01] MEDS ORDERED: SODIUM CHLORIDE 0.9% 500 ML 500 ML IV ONE (21:46)
[2020-08-01 23:39] LABS: Hematocrit 24.8 % (30.3-42.9); Hemoglobin 8.2 gm/dl (10.1-14.3); Mean Corpuscular HGB Conc 33 % (30-34); Mean Corpuscular Volume 100 fl (79-97); Red Blood Count 2.49 M/mm3 (3.65-5.03); Red Cell Distribution Width 19.1 % (13.2-15.2)
[2020-08-01 23:44] LABS: Platelet Count 81 K/mm3 (140-440)
[2020-08-02] MEDS ORDERED: SODIUM CHLORIDE 0.9% 500 ML 500 ML ONE (00:19)
[2020-08-02 06:29] LABS: Hematocrit 27.3 % (30.3-42.9); Hemoglobin 9.1 gm/dl (10.1-14.3); Mean Corpuscular HGB Conc 33 % (30-34); Mean Corpuscular Volume 97 fl (79-97); Red Blood Count 2.82 M/mm3 (3.65-5.03); Red Cell Distribution Width 19.1 % (13.2-15.2)
[2020-08-02 06:32] LABS: Platelet Count 95 K/mm3 (140-440)
[2020-08-02 06:33] LABS: Basophils % (Auto) 0.1 % (0.0-1.8); Eosinophils % (Auto) 0.1 % (0.0-4.3); Lymphocytes # (Auto) 0.9 K/mm3 (1.2-5.4); Lymphocytes % (Auto) 4.2 % (13.4-35.0); Monocytes # (Auto) 0.9 K/mm3 (0.0-0.8); Monocytes % (Auto) 4.4 % (0.0-7.3)
[2020-08-02 06:52] LABS: Calcium 8.2 mg/dL (8.4-10.2)
--- NOTE | 2020-08-02 09:43 | Progress Note ---
Assessment and Plan Assessment and plan: Anoxic encephalopathy High possibility given cardiac arrest and respiratory failure EEG requested Severe sepsis with septic shock/MOSF Continue IV antibiotics Bilateral pneumonia acute respiratory failure Try weaning from ventilator support Acute liver failure Supportive care, GI team consulted. Pt has poor prognosis, and currently unstable for transfer. Metabolic acidosis BMP, IV bicarbonate therapy, repeat BMP UTI (urinary tract infection) IV antibiotic therapy, supportive care. Acute kidney injury (RINA) with acute tubular necrosis (ATN) Nephrology team consulted, IV fluid resuscitation therapy, monitor urine output every shift, monitor fluid balance, supportive care. Diffuse colitis Findings noted on CT scan. Patient s/p antibiotic cardiac arrest Patient experienced cardiac arrest overnight. Patient treated with ACLS protocol with eventual return of perfusing cardiac rhythm. Patient has poor prognosis. 08/02/2019. Patient was noted to have fulminant hepatic failure then later during the hospital course of her cardiopulmonary arrest. The patient has completed acyclovir. Patient is unresponsive with no cough/gag reflex and pupils are fixed and dilated. Continue pressors to maintain MAP > 65. Family considering hospice/comfort care. Prognosis extremely guarded. The high probability of a clinically significant, sudden or life threatening deterioration of the [cardiac, respiratory, neurological] system(s) required my full and direct attention, intervention and personal management. The aggregate critical care time was [32] minutes. This time is in addition to time spent performing reported procedures but includes the following: [x] Data Review and interpretation [x] Patient assessment and monitoring of vital signs [x] Documentation [x] Medication orders and management History Interval history: Pupils are fixed and dilated. Hospitalist Physical - Constitutional Vitals: Temp Pulse Resp BP Pulse Ox 96.6 F L 68 18 105/50 97 08/02/20 04:00 08/02/20 08:00 08/02/20 06:00 08/02/20 08:00 08/02/20 08:00 General appearance: Present: no acute distress, well-nourished, other (Intubated on mechanical ventilation) - EENT Eyes: Present: PERRL, EOM intact ENT: hearing intact, clear oral mucosa, dentition normal - Neck Neck: Present: supple, normal ROM - Respiratory Respiratory effort: normal Respiratory: bilateral: CTA - Cardiovascular Rhythm: regular Heart Sounds: Present: S1 & S2. Absent: gallop, rub - Extremities Extremities: no ischemia, No edema, Full ROM - Abdominal General gastrointestinal: soft, non-tender, non-distended, normal bowel sounds - Integumentary Integumentary: Present: clear, warm, dry - Neurologic Neurologic: CNII-XII intact, moves all extremities HEART Score - HEART Score Troponin: Troponin T < 0.010 ng/mL (0.00-0.029) 07/16/20 20:47 Results - Labs CBC & Chem 7: 08/02/20 05:59 08/02/20 05:59 Labs: Laboratory Last Values WBC 21.7 K/mm3 (4.5-11.0) H 08/02/20 05:59 RBC 2.82 M/mm3 (3.65-5.03) L 08/02/20 05:59 Hgb 9.1 gm/dl (10.1-14.3) L 08/02/20 05:59 Hct 27.3 % (30.3-42.9) L 08/02/20 05:59 MCV 97 fl (79-97) 08/02/20 05:59 MCH 32 pg (28-32) 08/02/20 05:59 MCHC 33 % (30-34) 08/02/20 05:59 RDW 19.1 % (13.2-15.2) H 08/02/20 05:59 Plt Count 95 K/mm3 (140-440) L 08/02/20 05:59 Lymph % (Auto) 4.2 % (13.4-35.0) L 08/02/20 05:59 [place] % (Auto) 4.4 % (0.0-7.3) 08/02/20 05:59 Eos % (Auto) 0.1 % (0.0-4.3) 08/02/20 05:59 Baso % (Auto) 0.1 % (0.0-1.8) 08/02/20 05:59 Lymph # (Auto) 0.9 K/mm3 (1.2-5.4) L 08/02/20 05:59 [place] # (Auto) 0.9 K/mm3 (0.0-0.8) H 08/02/20 05:59 Eos # (Auto) 0.0 K/mm3 (0.0-0.4) 08/02/20 05:59 Baso # (Auto) 0.0 K/mm3 (0.0-0.1) 08/02/20 05:59 Add Manual Diff Complete 07/29/20 17:04 Total Counted 100 07/29/20 17:04 Seg Neutrophils % 91.2 % (40.0-70.0) H 08/02/20 05:59 Seg Neuts % (Manual) 93.0 % (40.0-70.0) H 07/29/20 17:04 Band Neutrophils % 11.0 % 07/27/20 04:45 Lymphocytes % (Manual) 6.0 % (13.4-35.0) L 07/29/20 17:04 Monocytes % (Manual) 1.0 % (0.0-7.3) 07/29/20 17:04 Eosinophils % (Manual) 2.0 % (0.0-4.3) 07/23/20 07:39 Metamyelocytes % 1.0 % 07/27/20 04:45 Myelocytes % 1.0 % 07/19/20 05:41 Nucleated RBC % 2.0 % (0.0-0.9) H 07/29/20 17:04 Seg Neutrophils # 19.8 K/mm3 (1.8-7.7) H 08/02/20 05:59 Seg Neutrophils # Man 34.6 K/mm3 (1.8-7.7) H 07/29/20 17:04 Band Neutrophils # 0.0 K/mm3 07/29/20 17:04 Lymphocytes # (Manual) 2.2 K/mm3 (1.2-5.4) 07/29/20 17:04 Abs React Lymphs (Man) 0.0 K/mm3 07/29/20 17:04 Monocytes # (Manual) 0.4 K/mm3 (0.0-0.8) 07/29/20 17:04 Eosinophils # (Manual) 0.0 K/mm3 (0.0-0.4) 07/29/20 17:04 Basophils # (Manual) 0.0 K/mm3 (0.0-0.1) 07/29/20 17:04 Metamyelocytes # 0.0 K/mm3 07/29/20 17:04 Myelocytes # 0.0 K/mm3 07/29/20 17:04 Promyelocytes # 0.0 K/mm3 07/29/20 17:04 Blast Cells # 0.0 K/mm3 07/29/20 17:04 Pathologist Review 07/16/20 20:47 WBC Morphology Not Reportable 07/29/20 17:04 Hypersegmented Neuts Not Reportable 07/29/20 17:04 Hyposegmented Neuts Not Reportable 07/29/20 17:04 Hypogranular Neuts Not Reportable 07/29/20 17:04 Smudge Cells Not Reportable 07/29/20 17:04 Toxic Granulation Not Reportable 07/29/20 17:04 Toxic Vacuolation Not Reportable 07/29/20 17:04 Dohle Bodies Not Reportable 07/29/20 17:04 Pelger-Huet Anomaly Not Reportable 07/29/20 17:04 Fede Rods Not Reportable 07/29/20 17:04 Platelet Estimate Consistent w auto 07/29/20 17:04 Clumped Platelets Not Reportable 07/29/20 17:04 Plt Clumps, EDTA Not Reportable 07/29/20 17:04 Large Platelets Not Reportable 07/29/20 17:04 Giant Platelets Not Reportable 07/29/20 17:04 Platelet Satelliting Not Reportable 07/29/20 17:04 Plt Morphology Comment Not Reportable 07/29/20 17:04 RBC Morphology Not Reportable 07/29/20 17:04 Dimorphic RBCs Not Reportable 07/29/20 17:04 Polychromasia Few 07/29/20 17:04 Hypochromasia Not Reportable 07/29/20 17:04 Poikilocytosis 1+ 07/29/20 17:04 Anisocytosis 1+ 07/29/20 17:04 Microcytosis Not Reportable 07/29/20 17:04 Macrocytosis Not Reportable 07/29/20 17:04 Spherocytes Not Reportable 07/29/20 17:04 Pappenheimer Bodies Not Reportable 07/29/20 17:04 Sickle Cells Not Reportable 07/29/20 17:04 Target Cells 1+ 07/29/20 17:04 Tear Drop Cells Not Reportable 07/29/20 17:04 Ovalocytes Few 07/29/20 17:04 Helmet Cells Not Reportable 07/29/20 17:04 [place] Bodies Not Reportable 07/29/20 17:04 [place] Rings Not Reportable 07/29/20 17:04 [place]erry Cells Not Reportable 07/29/20 17:04 Bite Cells Not Reportable 07/29/20 17:04 Crenated Cell Not Reportable 07/29/20 17:04 Elliptocytes Not Reportable 07/29/20 17:04 Acanthocytes (Spur) Not Reportable 07/29/20 17:04 Rouleaux Not Reportable 07/29/20 17:04 Hemoglobin C Crystals Not Reportable 07/29/20 17:04 Schistocytes Not Reportable 07/29/20 17:04 Malaria parasites Not Reportable 07/29/20 17:04 Richard Bodies Not Reportable 07/29/20 17:04 Hem Pathologist Commnt No 07/29/20 17:04 PT 21.2 Sec. (12.2-14.9) H 07/26/20 14:47 INR 1.83 (0.87-1.13) H 07/26/20 14:47 ABG pH 7.412 (7.320-7.450) 07/28/20 05:09 POC ABG pCO2 33.4 mmHg (32.0-48.0) 07/28/20 05:09 ABG pCO2 31.2 mm Hg 07/22/20 04:25 POC ABG pO2 67.3 mmHg (83-108) L 07/28/20 05:09 ABG pO2 104.9 mm Hg (80.0-90.0) H 07/22/20 04:25 POC ABG HCO3 20.8 07/28/20 05:09 ABG HCO3 23.7 mmol/L (20.0-26.0) 07/22/20 04:25 ABG O2 Saturation 98.1 % (95.0-99.0) 07/22/20 04:25 ABG O2 Content 11.7 (0.0-44) 07/22/20 04:25 POC ABG Base Excess -3.2 07/28/20 05:09 ABG Base Excess 0.8 mmol/L (-2.0-3.0) 07/22/20 04:25 ABG Hemoglobin 10.5 (12.0-17.5) L 07/28/20 05:09 ABG Oxyhemoglobin 90.9 (94-98) L 07/28/20 05:09 ABG Carboxyhemoglobin 2.3 % (0.0-5.0) 07/22/20 04:25 ABG Methemoglobin 0.3 (0.0-1.5) 07/28/20 05:09 ABG Sodium 145.0 mmol/L (136.0-145.0) 07/28/20 05:09 ABG Potassium 3.9 mmol/L (3.40-4.50) 07/28/20 05:09 ABG Chloride 117.0 mmol/L (98-107) H 07/28/20 05:09 ABG Glucose 105 mg/dL (65-95) H 07/28/20 05:09 VBG pH 7.085 (7.320-7.420) L* 07/17/20 01:46 Oxyhemoglobin 95.4 % (95.0-99.0) 07/22/20 04:25 Carboxyhemoglobin 1.0 (0.5-1.5) 07/28/20 05:09 FiO2 30.0 07/28/20 05:09 Sodium 160 mmol/L (137-145) H 08/02/20 05:59 Potassium 3.3 mmol/L (3.6-5.0) L D 08/02/20 05:59 Chloride 129.0 mmol/L (98-107) H 08/02/20 05:59 Carbon Dioxide 21 mmol/L (22-30) L 08/02/20 05:59 Anion Gap 13 mmol/L 08/02/20 05:59 BUN 62 mg/dL (7-17) H 08/02/20 05:59 Creatinine 2.2 mg/dL (0.6-1.2) H 08/02/20 05:59 Estimated GFR 32 ml/min 08/02/20 05:59 BUN/Creatinine Ratio 28 % 08/02/20 05:59 Glucose 121 mg/dL (65-100) H 08/02/20 05:59 POC Glucose 105 mg/dL (70-105) 08/02/20 05:10 Lactic Acid 3.90 mmol/L (0.7-2.0) H* 07/19/20 Unknown Calcium 8.2 mg/dL (8.4-10.2) L 08/02/20 05:59 Phosphorus 2.30 mg/dL (2.5-4.5) L D 07/24/20 10:14 Magnesium 2.10 mg/dL (1.7-2.3) 07/27/20 16:43 Total Bilirubin 9.70 mg/dL (0.1-1.2) H 07/28/20 09:42 Direct Bilirubin 8.6 mg/dL (0-0.2) H 07/26/20 14:47 Indirect Bilirubin 2.7 mg/dL 07/26/20 14:47 AST 195 units/L (5-40) H 07/28/20 09:42 ALT 99 units/L (7-56) H 07/28/20 09:42 Alkaline Phosphatase 422 units/L (35-129) H 07/28/20 09:42 Ammonia 50.0 umol/L (25-60) 07/31/20 14:59 Total Creatine Kinase 332 units/L (30-135) H 07/17/20 09:23 Troponin T < 0.010 ng/mL (0.00-0.029) 07/16/20 20:47 C-Reactive Protein 17.20 mg/dL (0.00-1.30) H 07/23/20 23:52 Total Protein 5.2 g/dL (6.3-8.2) L D 07/28/20 09:42 Albumin 2.1 g/dL (3.9-5) L 07/28/20 09:42 Albumin/Globulin Ratio 0.7 % 07/28/20 09:42 Lipase 14 units/L (13-60) 07/17/20 01:46 Procalcitonin 13.66 ng/mL (<0.15) 07/23/20 23:52 TSH 0.354 mlU/mL (0.270-4.200) 07/16/20 20:47 HCG, Qual Negative (Negative) 07/19/20 07:35 Arterial Blood Glucose 105 mg/dL (65-95) H 07/28/20 05:09 Arterial Blood Ionized Calcium 4.7 mg/dL (4.6-5.3) 07/28/20 05:09 Urine Color Aide (Yellow) 07/29/20 15:00 Urine Turbidity Cloudy (Clear) 07/29/20 15:00 Urine pH 6.0 (5.0-7.0) 07/29/20 15:00 Ur Specific [place] 1.016 (1.003-1.030) 07/29/20 15:00 Urine Protein 30 mg/dl mg/dL (Negative) 07/29/20 15:00 Urine Glucose (UA) Neg mg/dL (Negative) 07/29/20 15:00 Urine Ketones Neg mg/dL (Negative) 07/29/20 15:00 Urine Blood Sm (Negative) 07/29/20 15:00 Urine Nitrite Neg (Negative) 07/29/20 15:00 Urine Bilirubin Sm (Negative) 07/29/20 15:00 Urine Ictotest Positive (Negative) 07/29/20 15:00 Urine Urobilinogen 4.0 mg/dL (<2.0) 07/29/20 15:00 Ur Leukocyte Esterase Mod (Negative) 07/29/20 15:00 Urine WBC (Auto) 127.0 /HPF (0.0-6.0) H 07/29/20 15:00 Urine RBC (Auto) 24.0 /HPF (0.0-6.0) 07/29/20 15:00 U Epithel Cells (Auto) 18.0 /HPF (0-13.0) H 07/29/20 15:00 Urine Bacteria (Auto) 4+ /HPF (Negative) 07/23/20 Unknown Urine WBC Clumps 3+ /HPF 07/23/20 Unknown Urine Mucus 1+ /HPF 07/29/20 15:00 Urine Yeast (Budding) 3+ /HPF 07/29/20 15:00 Nasal Screen MRSA (PCR) Negative (Negative) 07/23/20 13:19 Acetaminophen 5.0 ug/mL (10.0-30.0) L 07/17/20 09:23 MARY Screen Negative (Negative) 07/17/20 11:08 Complement C3 55 mg/dL (83-193) L 07/23/20 23:52 Complement C4 11 mg/dL (15-57) L 07/23/20 23:52 Syphilis IgG Antibody Reactive (NonReactive) A 07/17/20 11:08 RPR Titer Nr 07/17/20 11:08 T.pallidum Ab (FTA-ABS) Nonreactive (Nonreactive) 12/22/20 Unknown C.trachomatis DNA (SDA) Not detected (Not Detected) 07/17/20 02:25 Hepatitis A IgM Ab Non-reactive (NonReactive) 07/17/20 11:08 Hep Bs Antigen Non-reactive (Negative) 07/17/20 11:08 Hep B Core IgM Ab Non-reactive (NonReactive) 07/17/20 11:08 Hepatitis C Antibody Non-reactive (NonReactive) 07/17/20 11:08 HSV I Specific Ab See scanned result 07/21/20 15:05 HSV II Specific Ab See scanned result 07/21/20 15:05 HSV I DNA PCR See scanned result 07/17/20 11:08 HSV II DNA PCR See scanned result 07/17/20 11:08 HIV 1&2 Antibody Rapid Non react (Non React) 07/17/20 11:08 HIV P24 Antigen Non react (Non React) 07/17/20 11:08 N.gonorrhoeae DNA (SDA) Not detected (Not Detected) 07/17/20 02:25 Blood Type O POSITIVE 08/01/20 22:40 Antibody Screen Negative 08/01/20 22:40 Crossmatch See Detail 08/01/20 22:40 Microbiology: Microbiology 07/28/20 10:25 Peripheral/Venous Blood Culture - Preliminary NO GROWTH AFTER 4 DAYS 07/28/20 09:42 Peripheral/Venous Blood Culture - Preliminary NO GROWTH AFTER 4 DAYS [place]/IV: Voiding Method Indwelling Catheter IV Catheter Type [Right Triple Lumen Cath Femoral] IV Catheter Type [Right Hand] Peripheral IV IV Catheter Type [Left Hand] INT / Saline Lock IV Catheter Type [Acetadote ( Peripheral IV Acetylcysteine IV) 7,500 mg In D5w 1,000 ml @ 62.5 mls/hr IV ONCE ONE Rx#:[id number]] IV Catheter Type [Sodium Triple Lumen Cath Bicarbonate 50 Meq In NaCl 0.9 % 1000 ml 1,000 ml @ 100 mls/ hr IV DIRECT ESTELA Rx#: [id number]] Active Medications - Current Medications Current Medications: Generic Name Dose Route Start Last Admin Trade Name Freq PRN Reason Stop Dose Admin Acetaminophen 650 mg 07/23/20 00:37 07/23/20 01:05 Acetaminophen 325 Mg/10.15 Ml Oral Liqd Unit Dose FEEDTUBE 650 mg Q6H PRN Administration Fever >101 Lipase/Protease/Amylase 1 each 07/23/20 08:37 Lipase 10,500/Protease 25,000/Amylase 43,750 (Units) Dr Sher FEEDTUBE PRN PRN For Clogged Feeding Tube Thiamine HCl 100 mg/ Sodium 51 mls @ 100 mls/hr 07/18/20 10:00 08/01/20 10:15 Chloride IV 100 mls/hr QDAY ESTELA Administration Folic Acid 1 mg/ Sodium 50.2 mls @ 200.8 mls/hr 07/18/20 10:00 08/01/20 10:15 Chloride IV 200.8 mls/hr QDAY ESTELA Administration Vasopressin 20 unit/ Sodium 101 mls @ 9.09 mls/hr 07/19/20 10:00 07/30/20 14:08 Chloride IV 0 units/min TITR ESTELA 0 mls/hr Titration Protocol 0.03 UNITS/MIN Norepinephrine 8 mg/ Sodium 250 mls @ 3.75 mls/hr 07/19/20 21:00 07/30/20 23:00 Chloride IV 0 mcg/min TITR ESTELA 0 mls/hr Titration Protocol 2 MCG/MIN Dextrose 1,000 mls @ 50 mls/hr 07/25/20 09:00 08/01/20 18:08 D10w IV 50 mls/hr DIRECT ESTELA Administration Magnesium Hydroxide 30 ml 07/17/20 03:56 Magnesium Hydroxide (Mom) Oral Liqd Udc PO Q4H PRN Constipation Ondansetron HCl 4 mg 07/17/20 03:56 07/18/20 20:00 Ondansetron 4 Mg/2 Ml Inj IV 4 mg Q8H PRN Administration Nausea And Vomiting Pantoprazole Sodium 40 mg 08/01/20 10:00 08/01/20 22:03 Pantoprazole 40 Mg Inj IV 40 mg BID ESTELA Administration Simple Syrup 15 ml 07/23/20 08:37 Simple Syrup 15 Ml FEEDTUBE PRN PRN Hypoglycemia Simple Syrup 30 ml 07/23/20 08:37 Simple Syrup 15 Ml FEEDTUBE PRN PRN Hypoglycemia Sodium Bicarbonate 325 mg 07/23/20 08:37 Sodium Bicarbonate 325 Mg Tab FEEDTUBE PRN PRN For Clogged Feeding Tube Sodium Chloride 10 ml 07/17/20 10:00 08/01/20 22:03 Sodium Chloride 0.9% 10 Ml Flush Syringe IV 10 ml BID ESTELA Administration Sodium Chloride 10 ml 07/17/20 03:56 Sodium Chloride 0.9% 10 Ml Flush Syringe IV PRN PRN LINE FLUSH Nutrition/Malnutrition Assess - Dietary Evaluation Nutrition/Malnutrition Findings: Nutrition Notes Start: 07/23/20 08:22 Freq: Status: Active Protocol: Document 08/01/20 12:31 AB (Rec: 08/01/20 12:46 AB [id number]) Co-Sign 08/01/20 12:31 NHALL Nutrition Notes Initial or Follow up Brief Note Current Diagnosis Acute Kidney Injury,Sepsis, Respiratory Failure Other Pertinent Diagnosis Acute liver failurem UTI, cardiac arrest, ETOH dependence Current Diet Vital 1.2 at 50 ml/hr Labs/Tests Na 154 BUN 60 Cr 1.9 BG 115 Subjective/Other Information F/U for TF start. Per RN, TF continues to be stopped d/t NGT bleed. Pt still has not had BM. Nutrition Intervention Follow-Up By: 08/03/20 Additional Comments F/U for TF start, BM
[2020-08-02] MEDS: PANTOPRAZOLE 40 MG INJ IV SCH ×2 (09:52→21:32)
[2020-08-02] MEDS: FOLIC ACID 1 MG in SODIUM CHLORIDE 0.9% 50 ML IV SCH (09:52)
[2020-08-02] MEDS: THIAMINE 100 MG in SODIUM CHLORIDE 0.9% 50 ML IV SCH (09:52)
--- NOTE | 2020-08-02 12:15 | Progress Note ---
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 08/02/20: Day 14 of intubation. Stable enough now to asses for apnea. Currently preoxygenating with 100% FiO2. Last BP during that time was systolic of 101. At about 12:35-12:40, she will have been on for 30 minutes. At that time, will obtain Pre apnea test ABG to assess baseline CO2 to make sure it is in normal range (35-45mmg Hg). If so then will proceed with apnea test by placing on T- piece at the highest flow on the wall and 100%. Will obtain ABG 10 minutes after this and reconnect to vent. If CO2 level rises 20mmHg or more during that time then patient would be considered brain . The patient had a repeat EEG yesterday that has not been read yet but it was not flatline based on the techs review. I will reach out to Risk Management here for the laws in [place] but If the apnea test is positive, I am not sure that a flatline EEG is needed. OVerall prognosis is poor. Unfortunately, not able to do apnea test as her sodium is 160. Will order brain flow study stat. 08/01/20: Day 13 of intubation. Now hypothermic and requiring more oxygen. Having more frequent runs of bradycardia. Given her current clinical state with MRI findings, this is most compatible with brain , especially with the lack of flow low flow state seen on MRI. Spoke with neurology again today and ask them to reach out to the again to explain that not only this is a poor prognosis but likely brain . Can do apnea tests if needed vs brain flow study. Most likely is brain flow study is done, will need rads to read and not sure if they are here today. 07/31/20: BP stable, now off vasopressors. Going for MRI today. Reattempt tube feeding post MRI. Needs to have labs checked to evaluate platelets, can order for tomorrow. Today is day 12 on intubation. I spoke with neuro over the phone this am and ask that they have another conversation with the mother in regards to her prognosis of waking up. She is also starting to have more sequale from prolonged liver disease and ICU stay. Her overall prognosis is extremely poor. 07/30/20: BP better with midodrine, thanks to pharmacy recs. Will turn off vasopressin and attempt to get MRI today. Will then lean on Neuro to help us with ultimate prognosis to help family make decisions about next steps. Today is day 11 of intubation. Family meeting needs to take place this week. If family wishes to continue aggressively, she will need trach and peg. Patient has been having nasal and oral bleeding. Platelets have been low but up to 55 now. No indication for blood or platelet transfusion. 07/29/20: Still no MRI yet. Remains unresponsive. Spoke with pharmacy today will try midodrine with reglan to see if we can wean pressors. No labs checked today. Renal function was worsening as of yesterday. Will order labs for tomorrow. Today is day 10 of intubation. Await further input from neurology. Need to set up family meeting soon to discuss next steps and goals of care. Overall prognosis is poor. 07/28/20: Await MRI. EEG draft from yesterday shows severe encephalopathy with multiple etiologies. Will attempt trickle feeds today despite 2 pressor need. If she does not tolerate, will talk to nutrition about TPN. Need neurology input once MRI done and read as the overall prognosis here appears to be poor and decisions need to be made in regards to next steps of care. Patient has been intubated now since 07/19/2020 (Today is day 9 of intubation). If family requests continued aggressive care, patient will need trach and peg placement, however, it does not appear that she can be weaned off of vasopressors. senior living consequences are soon to happen from prolonged use (i.e ischemia) 07/27/2020: Await MRI. Continue supportive measures. Clinical picture appears to be worsening. Family awaiting neurology input and they need imaging. 07/26/2020: Await MRI. Continue supportive care. Hopeful to wean off levo so we can start feeding patient later today. Will replace lytes and give more free water. Prognosis still appears to be very very poor from a neurological standpoint. 07/25/2020: Reviewed consultants notes on yesterday. Neuro has requested EEG to rule out status. Will speak with them in regards to MRI. Patient is stable enough for travel as pressor requirement is minimal and vent requirement is minimal. No objection to travel. Given hypoglycemia, will change fingersticks to q1 hour. Unable to feed secondary to pressor requirement or this could resultant of liver impairment. Overall prognosis appears to be poor. ] Continue supportive vent care. Not weanable secondary to mental state. Will await family meeting Wean Vasopressors for MAPS >65 Once down to one pressor can feed Will obtain formal neurology consult today May need to consider EEG Overall prognosis appears to be very poor. CCT 31 minutes. Subjective Date of service: 08/02/20 Principal diagnosis: Sepsis, anoxic encephalopathy Interval history: Spoke with Neuro who spoke with by law. Per neuro he understands that most likely this patient is brain . Neuro is requesting an EEG. She is stable enough to do an apnea test today. Objective Vital Signs - 12hr 08/02/20 08/02/20 08/02/20 00:15 00:22 00:30 Temperature 96.0 F L Pulse Rate 55 L 54 L Pulse Rate [ From Monitor] Respiratory 18 Rate Blood Pressure 135/87 135/87 O2 Sat by Pulse 98 98 Oximetry 08/02/20 08/02/20 08/02/20 00:31 00:35 00:37 Temperature 96.2 F L 96.2 F L Pulse Rate 54 L 57 L 57 L Pulse Rate [ From Monitor] Respiratory 18 18 18 Rate Blood Pressure 131/89 131/89 131/89 O2 Sat by Pulse 97 99 99 Oximetry 08/02/20 08/02/20 08/02/20 00:45 00:50 01:00 Temperature 96.3 F L Pulse Rate 56 L 53 L 54 L Pulse Rate [ From Monitor] Respiratory 18 18 18 Rate Blood Pressure 136/97 133/84 146/98 O2 Sat by Pulse 98 97 98 Oximetry 08/02/20 08/02/20 08/02/20 01:15 01:20 01:31 Temperature 96.0 F L Pulse Rate 55 L 55 L 55 L Pulse Rate [ From Monitor] Respiratory 18 18 18 Rate Blood Pressure 155/107 155/107 180/114 O2 Sat by Pulse 99 99 99 Oximetry 08/02/20 08/02/20 08/02/20 01:45 02:00 02:15 Temperature Pulse Rate 53 L 55 L 55 L Pulse Rate [ From Monitor] Respiratory 18 18 18 Rate Blood Pressure 125/83 127/86 123/83 O2 Sat by Pulse 98 98 97 Oximetry 08/02/20 08/02/20 08/02/20 02:30 02:45 03:00 Temperature Pulse Rate 56 L 57 L 58 L Pulse Rate [ From Monitor] Respiratory 18 18 18 Rate Blood Pressure 123/81 116/75 115/74 O2 Sat by Pulse 97 96 97 Oximetry 08/02/20 08/02/20 08/02/20 03:15 03:30 03:45 Temperature Pulse Rate 58 L 60 60 Pulse Rate [ From Monitor] Respiratory 18 18 18 Rate Blood Pressure 113/70 113/71 109/63 O2 Sat by Pulse 97 97 96 Oximetry 08/02/20 08/02/20 08/02/20 03:56 04:00 04:15 Temperature 96.6 F L Pulse Rate 61 62 62 Pulse Rate [ 62 From Monitor] Respiratory 18 18 Rate Blood Pressure 109/63 117/75 109/58 O2 Sat by Pulse 97 100 97 Oximetry 08/02/20 08/02/20 08/02/20 04:30 04:45 05:00 Temperature Pulse Rate 63 64 64 Pulse Rate [ From Monitor] Respiratory 18 18 18 Rate Blood Pressure 110/58 109/57 109/53 O2 Sat by Pulse 97 97 97 Oximetry 08/02/20 08/02/20 08/02/20 05:15 05:30 05:45 Temperature Pulse Rate 65 66 67 Pulse Rate [ From Monitor] Respiratory 18 18 18 Rate Blood Pressure 108/50 105/48 103/48 O2 Sat by Pulse 96 96 96 Oximetry 08/02/20 08/02/20 08/02/20 06:00 06:15 06:30 Temperature Pulse Rate 68 68 70 Pulse Rate [ From Monitor] Respiratory 18 18 18 Rate Blood Pressure 105/50 105/47 102/50 O2 Sat by Pulse 97 97 97 Oximetry 08/02/20 08/02/20 08/02/20 06:45 07:00 07:15 Temperature Pulse Rate 69 71 70 Pulse Rate [ From Monitor] Respiratory 18 18 18 Rate Blood Pressure 101/47 103/48 102/45 O2 Sat by Pulse 97 97 97 Oximetry 08/02/20 08/02/20 08/02/20 07:30 07:45 08:00 Temperature Pulse Rate 71 72 72 Pulse Rate [ 70 From Monitor] Respiratory 18 18 18 Rate Blood Pressure 103/44 102/44 104/41 O2 Sat by Pulse 96 97 100 Oximetry 08/02/20 08/02/20 08/02/20 08:15 08:30 08:45 Temperature Pulse Rate 73 74 75 Pulse Rate [ From Monitor] Respiratory 18 18 18 Rate Blood Pressure 104/43 103/41 102/43 O2 Sat by Pulse 96 96 97 Oximetry 08/02/20 08/02/20 08/02/20 09:00 09:15 09:30 Temperature Pulse Rate 76 76 76 Pulse Rate [ From Monitor] Respiratory 18 18 18 Rate Blood Pressure 105/45 100/45 102/42 O2 Sat by Pulse 96 97 96 Oximetry 08/02/20 08/02/20 08/02/20 09:45 10:00 10:15 Temperature Pulse Rate 82 77 76 Pulse Rate [ From Monitor] Respiratory 18 18 18 Rate Blood Pressure 109/56 103/40 98/40 O2 Sat by Pulse 97 96 97 Oximetry 08/02/20 08/02/20 08/02/20 10:30 10:45 11:00 Temperature Pulse Rate 75 75 74 Pulse Rate [ From Monitor] Respiratory 18 18 18 Rate Blood Pressure 93/40 96/42 98/40 O2 Sat by Pulse 98 97 97 Oximetry Constitutional: comatose Eyes: icteric ENT: other (orally intubated, no sedation) Neck: supple Effort: normal Ascultation: Bilateral: rales, rhonchi (anteriorly), other (coarse BS bilaterally) Cardiovascular: other (tachy, RR; no mrg) Gastrointestinal: normoactive bowel sounds, soft, non-tender, non-distended Integumentary: normal Extremities: no cyanosis, edema (1+ bilateral LE edema) Neurologic: other (unresponsive) Psychiatric: other (unable to assess) CBC and BMP: 08/02/20 05:59 08/02/20 05:59 ABG, PT/INR, D-dimer: ABG ABG pH 7.412 (7.320-7.450) 07/28/20 05:09 POC ABG pCO2 33.4 mmHg (32.0-48.0) 07/28/20 05:09 ABG pCO2 31.2 mm Hg 07/22/20 04:25 POC ABG pO2 67.3 mmHg (83-108) L 07/28/20 05:09 ABG pO2 104.9 mm Hg (80.0-90.0) H 07/22/20 04:25 POC ABG HCO3 20.8 07/28/20 05:09 ABG O2 Saturation 98.1 % (95.0-99.0) 07/22/20 04:25 PT/INR, D-dimer PT 21.2 Sec. (12.2-14.9) H 07/26/20 14:47 INR 1.83 (0.87-1.13) H 07/26/20 14:47 Abnormal lab findings: Abnormal Labs 07/16/20 07/16/20 07/16/20 03:54 20:47 20:47 WBC 33.9 H RBC Hgb Hct MCV 107 H MCH 34 H MCHC RDW 22.0 H Plt Count Lymph % (Auto) Benson % (Auto) Lymph # (Auto) Benson # (Auto) Eos # (Auto) Seg Neutrophils % Seg Neuts % (Manual) 89.0 H Lymphocytes % (Manual) 2.0 L Monocytes % (Manual) Nucleated RBC % 1.0 H Seg Neutrophils # Seg Neutrophils # Man 30.2 H Lymphocytes # (Manual) 0.7 L Monocytes # (Manual) 1.4 H Eosinophils # (Manual) PT INR ABG pH POC ABG pCO2 POC ABG pO2 ABG pO2 ABG Base Excess ABG Hemoglobin ABG Oxyhemoglobin ABG Sodium ABG Potassium ABG Chloride ABG Glucose VBG pH Oxyhemoglobin Carboxyhemoglobin Sodium Potassium 5.1 H Chloride Carbon Dioxide 9 L* BUN 20 H Creatinine 1.9 H Glucose 30 L* POC Glucose Lactic Acid Calcium Phosphorus Magnesium Total Bilirubin 5.40 H Direct Bilirubin AST 34478 H ALT 1829 H Alkaline Phosphatase 141 H Ammonia Total Creatine Kinase C-Reactive Protein Total Protein Albumin Lipase 9 L Arterial Blood Glucose Arterial Blood Ionized Calcium Urine WBC (Auto) 57.0 H U Epithel Cells (Auto) 23.0 H Acetaminophen Complement C3 Complement C4 Syphilis IgG Antibody HSV I Specific Ab Crossmatch 07/16/20 07/16/20 07/16/20 20:47 22:43 23:06 WBC RBC Hgb Hct MCV MCH MCHC RDW Plt Count Lymph % (Auto) Benson % (Auto) Lymph # (Auto) Benson # (Auto) Eos # (Auto) Seg Neutrophils % Seg Neuts % (Manual) Lymphocytes % (Manual) Monocytes % (Manual) Nucleated RBC % Seg Neutrophils # Seg Neutrophils # Man Lymphocytes # (Manual) Monocytes # (Manual) Eosinophils # (Manual) PT INR ABG pH POC ABG pCO2 POC ABG pO2 ABG pO2 ABG Base Excess ABG Hemoglobin ABG Oxyhemoglobin ABG Sodium ABG Potassium ABG Chloride ABG Glucose VBG pH Oxyhemoglobin Carboxyhemoglobin Sodium Potassium Chloride Carbon Dioxide BUN Creatinine Glucose POC Glucose 140 H Lactic Acid 14.90 H* Calcium Phosphorus Magnesium Total Bilirubin Direct Bilirubin AST ALT Alkaline Phosphatase Ammonia Total Creatine Kinase 230 H C-Reactive Protein Total Protein Albumin Lipase Arterial Blood Glucose Arterial Blood Ionized Calcium Urine WBC (Auto) U Epithel Cells (Auto) Acetaminophen Complement C3 Complement C4 Syphilis IgG Antibody HSV I Specific Ab Crossmatch 07/17/20 07/17/20 07/17/20 01:46 01:46 04:55 WBC RBC Hgb Hct MCV MCH MCHC RDW Plt Count Lymph % (Auto) Benson % (Auto) Lymph # (Auto) Benson # (Auto) Eos # (Auto) Seg Neutrophils % Seg Neuts % (Manual) Lymphocytes % (Manual) Monocytes % (Manual) Nucleated RBC % Seg Neutrophils # Seg Neutrophils # Man Lymphocytes # (Manual) Monocytes # (Manual) Eosinophils # (Manual) PT INR ABG pH POC ABG pCO2 POC ABG pO2 ABG pO2 ABG Base Excess ABG Hemoglobin ABG Oxyhemoglobin ABG Sodium ABG Potassium ABG Chloride ABG Glucose VBG pH 7.085 L* Oxyhemoglobin Carboxyhemoglobin Sodium Potassium Chloride Carbon Dioxide BUN Creatinine Glucose POC Glucose Lactic Acid 13.20 H* 12.00 H* Calcium Phosphorus Magnesium Total Bilirubin Direct Bilirubin AST ALT Alkaline Phosphatase Ammonia Total Creatine Kinase C-Reactive Protein Total Protein Albumin Lipase Arterial Blood Glucose Arterial Blood Ionized Calcium Urine WBC (Auto) U Epithel Cells (Auto) Acetaminophen Complement C3 Complement C4 Syphilis IgG Antibody HSV I Specific Ab Crossmatch 07/17/20 07/17/20 07/17/20 06:05 07:33 07:48 WBC RBC Hgb Hct MCV MCH MCHC RDW Plt Count Lymph % (Auto) Benson % (Auto) Lymph # (Auto) Benson # (Auto) Eos # (Auto) Seg Neutrophils % Seg Neuts % (Manual) Lymphocytes % (Manual) Monocytes % (Manual) Nucleated RBC % Seg Neutrophils # Seg Neutrophils # Man Lymphocytes # (Manual) Monocytes # (Manual) Eosinophils # (Manual) PT INR ABG pH POC ABG pCO2 POC ABG pO2 ABG pO2 ABG Base Excess ABG Hemoglobin ABG Oxyhemoglobin ABG Sodium ABG Potassium ABG Chloride ABG Glucose VBG pH Oxyhemoglobin Carboxyhemoglobin Sodium Potassium Chloride Carbon Dioxide BUN Creatinine Glucose POC Glucose 59 L 125 H Lactic Acid 12.00 H* Calcium Phosphorus Magnesium Total Bilirubin Direct Bilirubin AST ALT Alkaline Phosphatase Ammonia Total Creatine Kinase C-Reactive Protein Total Protein Albumin Lipase Arterial Blood Glucose Arterial Blood Ionized Calcium Urine WBC (Auto) U Epithel Cells (Auto) Acetaminophen Complement C3 Complement C4 Syphilis IgG Antibody HSV I Specific Ab Crossmatch 07/17/20 07/17/20 07/17/20 09:23 09:23 09:24 WBC RBC Hgb Hct MCV MCH MCHC RDW Plt Count Lymph % (Auto) Benson % (Auto) Lymph # (Auto) Benson # (Auto) Eos # (Auto) Seg Neutrophils % Seg Neuts % (Manual) Lymphocytes % (Manual) Monocytes % (Manual) Nucleated RBC % Seg Neutrophils # Seg Neutrophils # Man Lymphocytes # (Manual) Monocytes # (Manual) Eosinophils # (Manual) PT INR ABG pH POC ABG pCO2 POC ABG pO2 ABG pO2 ABG Base Excess ABG Hemoglobin ABG Oxyhemoglobin ABG Sodium ABG Potassium ABG Chloride ABG Glucose VBG pH Oxyhemoglobin Carboxyhemoglobin Sodium Potassium 5.7 H Chloride 107.6 H Carbon Dioxide 13 L BUN 24 H Creatinine 2.1 H Glucose 121 H POC Glucose Lactic Acid Calcium 6.0 L D Phosphorus Magnesium Total Bilirubin 3.80 H Direct Bilirubin AST 8355 H ALT 1522 H Alkaline Phosphatase Ammonia Total Creatine Kinase 332 H C-Reactive Protein Total Protein 4.7 L D Albumin 2.8 L Lipase Arterial Blood Glucose Arterial Blood Ionized Calcium Urine WBC (Auto) U Epithel Cells (Auto) Acetaminophen 5.0 L Complement C3 Complement C4 Syphilis IgG Antibody HSV I Specific Ab Crossmatch 07/17/20 07/17/20 07/17/20 11:08 11:08 11:08 WBC RBC Hgb Hct MCV MCH MCHC RDW Plt Count Lymph % (Auto) Benson % (Auto) Lymph # (Auto) Benson # (Auto) Eos # (Auto) Seg Neutrophils % Seg Neuts % (Manual) Lymphocytes % (Manual) Monocytes % (Manual) Nucleated RBC % Seg Neutrophils # Seg Neutrophils # Man Lymphocytes # (Manual) Monocytes # (Manual) Eosinophils # (Manual) PT 60.1 H INR > 17.67 H* ABG pH POC ABG pCO2 POC ABG pO2 ABG pO2 ABG Base Excess ABG Hemoglobin ABG Oxyhemoglobin ABG Sodium ABG Potassium ABG Chloride ABG Glucose VBG pH Oxyhemoglobin Carboxyhemoglobin Sodium Potassium Chloride Carbon Dioxide BUN Creatinine Glucose POC Glucose Lactic Acid 9.80 H* Calcium Phosphorus Magnesium Total Bilirubin Direct Bilirubin AST ALT Alkaline Phosphatase Ammonia Total Creatine Kinase C-Reactive Protein Total Protein Albumin Lipase Arterial Blood Glucose Arterial Blood Ionized Calcium Urine WBC (Auto) U Epithel Cells (Auto) Acetaminophen Complement C3 Complement C4 Syphilis IgG Antibody Reactive A HSV I Specific Ab Crossmatch 07/17/20 07/17/20 07/17/20 11:08 14:34 14:34 WBC 27.2 H RBC 2.66 L Hgb 9.1 L D Hct 27.8 L D MCV 104 H MCH 34 H MCHC RDW 22.6 H Plt Count Lymph % (Auto) Benson % (Auto) Lymph # (Auto) Benson # (Auto) Eos # (Auto) Seg Neutrophils % Seg Neuts % (Manual) Lymphocytes % (Manual) Monocytes % (Manual) Nucleated RBC % Seg Neutrophils # Seg Neutrophils # Man Lymphocytes # (Manual) Monocytes # (Manual) Eosinophils # (Manual) PT INR ABG pH POC ABG pCO2 POC ABG pO2 ABG pO2 ABG Base Excess ABG Hemoglobin ABG Oxyhemoglobin ABG Sodium ABG Potassium ABG Chloride ABG Glucose VBG pH Oxyhemoglobin Carboxyhemoglobin Sodium Potassium 5.4 H Chloride 107.7 H Carbon Dioxide 16 L BUN 26 H Creatinine 2.3 H Glucose 151 H POC Glucose Lactic Acid Calcium 5.8 L* Phosphorus Magnesium Total Bilirubin 3.30 H Direct Bilirubin AST 6751 H ALT 1325 H Alkaline Phosphatase Ammonia Total Creatine Kinase C-Reactive Protein Total Protein 4.4 L Albumin 2.5 L Lipase Arterial Blood Glucose Arterial Blood Ionized Calcium Urine WBC (Auto) U Epithel Cells (Auto) Acetaminophen Complement C3 Complement C4 Syphilis IgG Antibody HSV I Specific Ab 5.23 H Crossmatch 07/17/20 07/17/20 07/17/20 14:34 14:34 14:34 WBC RBC Hgb Hct MCV MCH MCHC RDW Plt Count Lymph % (Auto) Benson % (Auto) Lymph # (Auto) Benson # (Auto) Eos # (Auto) Seg Neutrophils % Seg Neuts % (Manual) Lymphocytes % (Manual) Monocytes % (Manual) Nucleated RBC % Seg Neutrophils # Seg Neutrophils # Man Lymphocytes # (Manual) Monocytes # (Manual) Eosinophils # (Manual) PT 70.6 H INR 8.29 H* ABG pH POC ABG pCO2 POC ABG pO2 ABG pO2 ABG Base Excess ABG Hemoglobin ABG Oxyhemoglobin ABG Sodium ABG Potassium ABG Chloride ABG Glucose VBG pH Oxyhemoglobin Carboxyhemoglobin Sodium Potassium Chloride Carbon Dioxide BUN Creatinine Glucose POC Glucose Lactic Acid 7.60 H* Calcium Phosphorus Magnesium Total Bilirubin Direct Bilirubin AST ALT Alkaline Phosphatase Ammonia 75.0 H Total Creatine Kinase C-Reactive Protein Total Protein Albumin Lipase Arterial Blood Glucose Arterial Blood Ionized Calcium Urine WBC (Auto) U Epithel Cells (Auto) Acetaminophen Complement C3 Complement C4 Syphilis IgG Antibody HSV I Specific Ab Crossmatch 07/17/20 07/17/20 07/18/20 16:45 16:45 04:23 WBC 22.7 H RBC 2.47 L Hgb 8.5 L Hct 25.5 L MCV 103 H MCH 35 H MCHC RDW 21.7 H Plt Count Lymph % (Auto) 5.3 L Benson % (Auto) Lymph # (Auto) Benson # (Auto) Eos # (Auto) 0.7 H Seg Neutrophils % 88.2 H Seg Neuts % (Manual) Lymphocytes % (Manual) Monocytes % (Manual) Nucleated RBC % Seg Neutrophils # 20.0 H Seg Neutrophils # Man Lymphocytes # (Manual) Monocytes # (Manual) Eosinophils # (Manual) PT INR ABG pH POC ABG pCO2 POC ABG pO2 ABG pO2 ABG Base Excess ABG Hemoglobin ABG Oxyhemoglobin ABG Sodium ABG Potassium ABG Chloride ABG Glucose VBG pH Oxyhemoglobin Carboxyhemoglobin Sodium Potassium Chloride 107.9 H Carbon Dioxide 17 L BUN 27 H Creatinine 2.5 H Glucose 144 H POC Glucose Lactic Acid 7.00 H* Calcium 6.0 L Phosphorus Magnesium Total Bilirubin 3.30 H Direct Bilirubin AST 6456 H ALT 1286 H Alkaline Phosphatase Ammonia Total Creatine Kinase C-Reactive Protein Total Protein 4.2 L Albumin 2.5 L Lipase Arterial Blood Glucose Arterial Blood Ionized Calcium Urine WBC (Auto) U Epithel Cells (Auto) Acetaminophen Complement C3 Complement C4 Syphilis IgG Antibody HSV I Specific Ab Crossmatch 07/18/20 07/18/20 07/18/20 04:23 04:23 04:23 WBC RBC Hgb Hct MCV MCH MCHC RDW Plt Count Lymph % (Auto) Benson % (Auto) Lymph # (Auto) Benson # (Auto) Eos # (Auto) Seg Neutrophils % Seg Neuts % (Manual) Lymphocytes % (Manual) Monocytes % (Manual) Nucleated RBC % Seg Neutrophils # Seg Neutrophils # Man Lymphocytes # (Manual) Monocytes # (Manual) Eosinophils # (Manual) PT 52.9 H INR 5.78 H* ABG pH POC ABG pCO2 POC ABG pO2 ABG pO2 ABG Base Excess ABG Hemoglobin ABG Oxyhemoglobin ABG Sodium ABG Potassium ABG Chloride ABG Glucose VBG pH Oxyhemoglobin Carboxyhemoglobin Sodium Potassium Chloride 110.0 H Carbon Dioxide 17 L BUN 33 H Creatinine 3.0 H Glucose 110 H POC Glucose Lactic Acid 5.40 H* Calcium 6.4 L Phosphorus Magnesium Total Bilirubin Direct Bilirubin AST ALT Alkaline Phosphatase Ammonia Total Creatine Kinase C-Reactive Protein Total Protein Albumin Lipase Arterial Blood Glucose Arterial Blood Ionized Calcium Urine WBC (Auto) U Epithel Cells (Auto) Acetaminophen Complement C3 Complement C4 Syphilis IgG Antibody HSV I Specific Ab Crossmatch 07/18/20 07/18/20 07/18/20 04:23 07:25 Unknown WBC RBC Hgb Hct MCV MCH MCHC RDW Plt Count Lymph % (Auto) Benson % (Auto) Lymph # (Auto) Benson # (Auto) Eos # (Auto) Seg Neutrophils % Seg Neuts % (Manual) Lymphocytes % (Manual) Monocytes % (Manual) Nucleated RBC % Seg Neutrophils # Seg Neutrophils # Man Lymphocytes # (Manual) Monocytes # (Manual) Eosinophils # (Manual) PT INR ABG pH POC ABG pCO2 POC ABG pO2 ABG pO2 ABG Base Excess ABG Hemoglobin ABG Oxyhemoglobin ABG Sodium ABG Potassium ABG Chloride ABG Glucose VBG pH Oxyhemoglobin Carboxyhemoglobin Sodium Potassium Chloride Carbon Dioxide BUN Creatinine Glucose POC Glucose Lactic Acid 5.50 H* 4.80 H* Calcium Phosphorus Magnesium Total Bilirubin Direct Bilirubin AST ALT Alkaline Phosphatase Ammonia 96.0 H Total Creatine Kinase C-Reactive Protein Total Protein Albumin Lipase Arterial Blood Glucose Arterial Blood Ionized Calcium Urine WBC (Auto) U Epithel Cells (Auto) Acetaminophen Complement C3 Complement C4 Syphilis IgG Antibody HSV I Specific Ab Crossmatch 07/18/20 07/18/20 07/19/20 Unknown Unknown 02:47 WBC RBC Hgb Hct MCV MCH MCHC RDW Plt Count Lymph % (Auto) Benson % (Auto) Lymph # (Auto) Benson # (Auto) Eos # (Auto) Seg Neutrophils % Seg Neuts % (Manual) Lymphocytes % (Manual) Monocytes % (Manual) Nucleated RBC % Seg Neutrophils # Seg Neutrophils # Man Lymphocytes # (Manual) Monocytes # (Manual) Eosinophils # (Manual) PT 37.3 H INR 3.73 H ABG pH POC ABG pCO2 21.1 L POC ABG pO2 61.7 L ABG pO2 ABG Base Excess ABG Hemoglobin 8.5 L ABG Oxyhemoglobin 88.1 L ABG Sodium ABG Potassium ABG Chloride 119.0 H ABG Glucose VBG pH Oxyhemoglobin Carboxyhemoglobin Sodium Potassium Chloride Carbon Dioxide BUN Creatinine Glucose POC Glucose Lactic Acid Calcium Phosphorus Magnesium Total Bilirubin 3.70 H Direct Bilirubin 3.0 H AST 2093 H ALT 822 H Alkaline Phosphatase Ammonia Total Creatine Kinase C-Reactive Protein Total Protein 4.0 L Albumin 2.5 L Lipase Arterial Blood Glucose Arterial Blood Ionized Calcium 4.0 L Urine WBC (Auto) U Epithel Cells (Auto) Acetaminophen Complement C3 Complement C4 Syphilis IgG Antibody HSV I Specific Ab Crossmatch 07/19/20 07/19/20 07/19/20 03:01 03:01 03:01 WBC 19.4 H RBC 2.50 L Hgb 8.5 L Hct 26.1 L MCV 104 H MCH 34 H MCHC RDW 22.3 H Plt Count Lymph % (Auto) 3.7 L Benson % (Auto) Lymph # (Auto) 0.7 L Benson # (Auto) 0.9 H Eos # (Auto) Seg Neutrophils % Seg Neuts % (Manual) Lymphocytes % (Manual) Monocytes % (Manual) Nucleated RBC % Seg Neutrophils # 17.7 H Seg Neutrophils # Man Lymphocytes # (Manual) Monocytes # (Manual) Eosinophils # (Manual) PT 35.0 H INR 3.45 H ABG pH POC ABG pCO2 POC ABG pO2 ABG pO2 ABG Base Excess ABG Hemoglobin ABG Oxyhemoglobin ABG Sodium ABG Potassium ABG Chloride ABG Glucose VBG pH Oxyhemoglobin Carboxyhemoglobin Sodium Potassium Chloride Carbon Dioxide BUN Creatinine Glucose POC Glucose Lactic Acid 5.90 H* Calcium Phosphorus Magnesium Total Bilirubin Direct Bilirubin AST ALT Alkaline Phosphatase Ammonia Total Creatine Kinase C-Reactive Protein Total Protein Albumin Lipase Arterial Blood Glucose Arterial Blood Ionized Calcium Urine WBC (Auto) U Epithel Cells (Auto) Acetaminophen Complement C3 Complement C4 Syphilis IgG Antibody HSV I Specific Ab Crossmatch 07/19/20 07/19/20 07/19/20 03:01 03:01 05:25 WBC RBC Hgb Hct MCV MCH MCHC RDW Plt Count Lymph % (Auto) Benson % (Auto) Lymph # (Auto) Benson # (Auto) Eos # (Auto) Seg Neutrophils % Seg Neuts % (Manual) Lymphocytes % (Manual) Monocytes % (Manual) Nucleated RBC % Seg Neutrophils # Seg Neutrophils # Man Lymphocytes # (Manual) Monocytes # (Manual) Eosinophils # (Manual) PT INR ABG pH POC ABG pCO2 POC ABG pO2 ABG pO2 ABG Base Excess ABG Hemoglobin ABG Oxyhemoglobin ABG Sodium ABG Potassium ABG Chloride ABG Glucose VBG pH Oxyhemoglobin Carboxyhemoglobin Sodium 149 H Potassium Chloride 116.6 H Carbon Dioxide 14 L BUN 48 H Creatinine 2.5 H Glucose POC Glucose 43 L Lactic Acid Calcium 7.4 L D Phosphorus Magnesium Total Bilirubin 3.70 H Direct Bilirubin AST 1730 H ALT 751 H Alkaline Phosphatase Ammonia 126.0 H Total Creatine Kinase C-Reactive Protein Total Protein 4.3 L Albumin 2.4 L Lipase Arterial Blood Glucose Arterial Blood Ionized Calcium Urine WBC (Auto) U Epithel Cells (Auto) Acetaminophen Complement C3 Complement C4 Syphilis IgG Antibody HSV I Specific Ab Crossmatch 07/19/20 07/19/20 07/19/20 05:41 05:41 05:41 WBC 15.9 H RBC 1.80 L Hgb 6.2 L Hct 19.7 L* D MCV 109 H MCH 35 H MCHC RDW 22.7 H Plt Count 99 L Lymph % (Auto) 9.7 L Benson % (Auto) 8.3 H Lymph # (Auto) Benson # (Auto) 1.3 H Eos # (Auto) Seg Neutrophils % 81.2 H Seg Neuts % (Manual) 85.0 H Lymphocytes % (Manual) 12.0 L Monocytes % (Manual) Nucleated RBC % Seg Neutrophils # 12.9 H Seg Neutrophils # Man 13.5 H Lymphocytes # (Manual) Monocytes # (Manual) Eosinophils # (Manual) PT 51.8 H INR 5.63 H* ABG pH POC ABG pCO2 POC ABG pO2 ABG pO2 ABG Base Excess ABG Hemoglobin ABG Oxyhemoglobin ABG Sodium ABG Potassium ABG Chloride ABG Glucose VBG pH Oxyhemoglobin Carboxyhemoglobin Sodium 150 H Potassium Chloride 117.6 H Carbon Dioxide 10 L BUN 50 H Creatinine 2.8 H Glucose 308 H POC Glucose Lactic Acid Calcium 6.8 L Phosphorus Magnesium Total Bilirubin 2.20 H Direct Bilirubin AST 1224 H ALT 484 H Alkaline Phosphatase Ammonia Total Creatine Kinase C-Reactive Protein Total Protein 2.8 L D Albumin 1.6 L Lipase Arterial Blood Glucose Arterial Blood Ionized Calcium Urine WBC (Auto) U Epithel Cells (Auto) Acetaminophen Complement C3 Complement C4 Syphilis IgG Antibody HSV I Specific Ab Crossmatch 07/19/20 07/19/20 07/19/20 05:41 05:41 05:53 WBC RBC Hgb Hct MCV MCH MCHC RDW Plt Count Lymph % (Auto) Benson % (Auto) Lymph # (Auto) Benson # (Auto) Eos # (Auto) Seg Neutrophils % Seg Neuts % (Manual) Lymphocytes % (Manual) Monocytes % (Manual) Nucleated RBC % Seg Neutrophils # Seg Neutrophils # Man Lymphocytes # (Manual) Monocytes # (Manual) Eosinophils # (Manual) PT INR ABG pH POC ABG pCO2 POC ABG pO2 ABG pO2 ABG Base Excess ABG Hemoglobin ABG Oxyhemoglobin ABG Sodium ABG Potassium ABG Chloride ABG Glucose VBG pH Oxyhemoglobin Carboxyhemoglobin Sodium Potassium Chloride Carbon Dioxide BUN Creatinine Glucose POC Glucose 186 H Lactic Acid 12.00 H* Calcium Phosphorus Magnesium Total Bilirubin Direct Bilirubin AST ALT Alkaline Phosphatase Ammonia 96.0 H Total Creatine Kinase C-Reactive Protein Total Protein Albumin Lipase Arterial Blood Glucose Arterial Blood Ionized Calcium Urine WBC (Auto) U Epithel Cells (Auto) Acetaminophen Complement C3 Complement C4 Syphilis IgG Antibody HSV I Specific Ab Crossmatch 07/19/20 07/19/20 07/19/20 06:14 07:35 07:35 WBC RBC Hgb Hct MCV MCH MCHC RDW Plt Count Lymph % (Auto) Benson % (Auto) Lymph # (Auto) Benson # (Auto) Eos # (Auto) Seg Neutrophils % Seg Neuts % (Manual) Lymphocytes % (Manual) Monocytes % (Manual) Nucleated RBC % Seg Neutrophils # Seg Neutrophils # Man Lymphocytes # (Manual) Monocytes # (Manual) Eosinophils # (Manual) PT INR ABG pH 6.904 L POC ABG pCO2 50.8 H POC ABG pO2 140.1 H ABG pO2 ABG Base Excess ABG Hemoglobin 7.9 L ABG Oxyhemoglobin ABG Sodium ABG Potassium ABG Chloride 120.0 H ABG Glucose 220 H VBG pH Oxyhemoglobin Carboxyhemoglobin 1.7 H Sodium Potassium Chloride Carbon Dioxide BUN Creatinine Glucose POC Glucose Lactic Acid 8.50 H* Calcium Phosphorus Magnesium Total Bilirubin Direct Bilirubin AST ALT Alkaline Phosphatase Ammonia Total Creatine Kinase C-Reactive Protein Total Protein Albumin Lipase Arterial Blood Glucose 220 H Arterial Blood Ionized Calcium 4.1 L Urine WBC (Auto) U Epithel Cells (Auto) Acetaminophen Complement C3 Complement C4 Syphilis IgG Antibody HSV I Specific Ab Crossmatch See Detail 07/19/20 07/19/20 07/19/20 12:45 22:54 Unknown WBC 26.7 H RBC 2.68 L Hgb 9.0 L Hct 26.8 L D MCV 100 H MCH 34 H MCHC RDW 20.2 H Plt Count 104 L Lymph % (Auto) Benson % (Auto) Lymph # (Auto) Benson # (Auto) Eos # (Auto) Seg Neutrophils % Seg Neuts % (Manual) Lymphocytes % (Manual) 6.0 L Monocytes % (Manual) 8.0 H Nucleated RBC % Seg Neutrophils # Seg Neutrophils # Man 17.6 H Lymphocytes # (Manual) Monocytes # (Manual) 2.1 H Eosinophils # (Manual) PT INR ABG pH POC ABG pCO2 POC ABG pO2 ABG pO2 ABG Base Excess ABG Hemoglobin ABG Oxyhemoglobin ABG Sodium ABG Potassium ABG Chloride ABG Glucose VBG pH Oxyhemoglobin Carboxyhemoglobin Sodium Potassium Chloride Carbon Dioxide BUN Creatinine Glucose POC Glucose 121 H Lactic Acid 6.20 H* Calcium Phosphorus Magnesium Total Bilirubin Direct Bilirubin AST ALT Alkaline Phosphatase Ammonia Total Creatine Kinase C-Reactive Protein Total Protein Albumin Lipase Arterial Blood Glucose Arterial Blood Ionized Calcium Urine WBC (Auto) U Epithel Cells (Auto) Acetaminophen Complement C3 Complement C4 Syphilis IgG Antibody HSV I Specific Ab Crossmatch 07/19/20 07/19/20 07/19/20 Unknown Unknown Unknown WBC RBC Hgb Hct MCV MCH MCHC RDW Plt Count Lymph % (Auto) Benson % (Auto) Lymph # (Auto) Benson # (Auto) Eos # (Auto) Seg Neutrophils % Seg Neuts % (Manual) Lymphocytes % (Manual) Monocytes % (Manual) Nucleated RBC % Seg Neutrophils # Seg Neutrophils # Man Lymphocytes # (Manual) Monocytes # (Manual) Eosinophils # (Manual) PT 33.4 H INR 3.25 H ABG pH POC ABG pCO2 POC ABG pO2 ABG pO2 ABG Base Excess ABG Hemoglobin ABG Oxyhemoglobin ABG Sodium ABG Potassium ABG Chloride ABG Glucose VBG pH Oxyhemoglobin Carboxyhemoglobin Sodium 148 H Potassium 2.6 L* D Chloride 117.3 H Carbon Dioxide 18 L D BUN 48 H Creatinine 2.4 H Glucose 207 H POC Glucose Lactic Acid 3.90 H* Calcium 6.5 L Phosphorus Magnesium Total Bilirubin 3.80 H Direct Bilirubin AST 1228 H ALT 516 H Alkaline Phosphatase Ammonia Total Creatine Kinase C-Reactive Protein Total Protein 3.6 L D Albumin 1.9 L Lipase Arterial Blood Glucose Arterial Blood Ionized Calcium Urine WBC (Auto) U Epithel Cells (Auto) Acetaminophen Complement C3 Complement C4 Syphilis IgG Antibody HSV I Specific Ab Crossmatch 07/20/20 07/20/20 07/20/20 02:41 05:04 06:39 WBC RBC Hgb Hct MCV MCH MCHC RDW Plt Count Lymph % (Auto) Benson % (Auto) Lymph # (Auto) Benson # (Auto) Eos # (Auto) Seg Neutrophils % Seg Neuts % (Manual) Lymphocytes % (Manual) Monocytes % (Manual) Nucleated RBC % Seg Neutrophils # Seg Neutrophils # Man Lymphocytes # (Manual) Monocytes # (Manual) Eosinophils # (Manual) PT INR ABG pH POC ABG pCO2 POC ABG pO2 64.7 L ABG pO2 ABG Base Excess ABG Hemoglobin 8.8 L ABG Oxyhemoglobin 91.0 L ABG Sodium ABG Potassium 2.6 L ABG Chloride 116.0 H ABG Glucose 143 H VBG pH Oxyhemoglobin Carboxyhemoglobin 2.0 H Sodium Potassium Chloride Carbon Dioxide BUN Creatinine Glucose POC Glucose 141 H 123 H Lactic Acid Calcium Phosphorus Magnesium Total Bilirubin Direct Bilirubin AST ALT Alkaline Phosphatase Ammonia Total Creatine Kinase C-Reactive Protein Total Protein Albumin Lipase Arterial Blood Glucose 143 H Arterial Blood Ionized Calcium 3.9 L Urine WBC (Auto) U Epithel Cells (Auto) Acetaminophen Complement C3 Complement C4 Syphilis IgG Antibody HSV I Specific Ab Crossmatch 07/20/20 07/20/20 07/20/20 10:42 11:07 11:07 WBC 27.7 H RBC 2.50 L Hgb 8.4 L Hct 24.4 L MCV 98 H MCH 34 H MCHC 35 H RDW 19.8 H Plt Count 78 L Lymph % (Auto) Benson % (Auto) Lymph # (Auto) Benson # (Auto) Eos # (Auto) Seg Neutrophils % Seg Neuts % (Manual) Lymphocytes % (Manual) Monocytes % (Manual) Nucleated RBC % Seg Neutrophils # Seg Neutrophils # Man Lymphocytes # (Manual) Monocytes # (Manual) Eosinophils # (Manual) PT INR ABG pH POC ABG pCO2 POC ABG pO2 113.1 H ABG pO2 ABG Base Excess ABG Hemoglobin 8.8 L ABG Oxyhemoglobin ABG Sodium ABG Potassium 2.9 L ABG Chloride 114.0 H ABG Glucose 135 H VBG pH Oxyhemoglobin Carboxyhemoglobin 1.9 H Sodium 147 H Potassium Chloride 114.2 H Carbon Dioxide BUN 52 H Creatinine 1.8 H Glucose 143 H POC Glucose Lactic Acid Calcium 6.5 L Phosphorus Magnesium Total Bilirubin Direct Bilirubin AST ALT Alkaline Phosphatase Ammonia Total Creatine Kinase C-Reactive Protein Total Protein Albumin Lipase Arterial Blood Glucose 135 H Arterial Blood Ionized Calcium 3.8 L Urine WBC (Auto) U Epithel Cells (Auto) Acetaminophen Complement C3 Complement C4 Syphilis IgG Antibody HSV I Specific Ab Crossmatch 07/20/20 07/21/20 07/21/20 15:05 00:03 02:07 WBC RBC Hgb Hct MCV MCH MCHC RDW Plt Count Lymph % (Auto) Benson % (Auto) Lymph # (Auto) Benson # (Auto) Eos # (Auto) Seg Neutrophils % Seg Neuts % (Manual) Lymphocytes % (Manual) Monocytes % (Manual) Nucleated RBC % Seg Neutrophils # Seg Neutrophils # Man Lymphocytes # (Manual) Monocytes # (Manual) Eosinophils # (Manual) PT INR ABG pH POC ABG pCO2 POC ABG pO2 ABG pO2 ABG Base Excess ABG Hemoglobin ABG Oxyhemoglobin ABG Sodium ABG Potassium ABG Chloride ABG Glucose VBG pH Oxyhemoglobin Carboxyhemoglobin Sodium 146 H Potassium 2.8 L* 3.1 L Chloride 112.1 H Carbon Dioxide BUN 54 H Creatinine 1.9 H Glucose 107 H POC Glucose 145 H Lactic Acid Calcium 6.8 L Phosphorus Magnesium 0.90 L* Total Bilirubin Direct Bilirubin AST ALT Alkaline Phosphatase Ammonia Total Creatine Kinase C-Reactive Protein Total Protein Albumin Lipase Arterial Blood Glucose Arterial Blood Ionized Calcium Urine WBC (Auto) U Epithel Cells (Auto) Acetaminophen Complement C3 Complement C4 Syphilis IgG Antibody HSV I Specific Ab Crossmatch 07/21/20 07/21/20 07/21/20 03:42 05:21 10:59 WBC RBC Hgb Hct MCV MCH MCHC RDW Plt Count Lymph % (Auto) Benson % (Auto) Lymph # (Auto) Benson # (Auto) Eos # (Auto) Seg Neutrophils % Seg Neuts % (Manual) Lymphocytes % (Manual) Monocytes % (Manual) Nucleated RBC % Seg Neutrophils # Seg Neutrophils # Man Lymphocytes # (Manual) Monocytes # (Manual) Eosinophils # (Manual) PT INR ABG pH POC ABG pCO2 POC ABG pO2 ABG pO2 98.2 H ABG Base Excess -3.8 L ABG Hemoglobin 8.7 L ABG Oxyhemoglobin ABG Sodium ABG Potassium ABG Chloride ABG Glucose VBG pH Oxyhemoglobin 94.6 L Carboxyhemoglobin Sodium Potassium Chloride Carbon Dioxide BUN Creatinine Glucose POC Glucose 150 H 161 H Lactic Acid Calcium Phosphorus Magnesium Total Bilirubin Direct Bilirubin AST ALT Alkaline Phosphatase Ammonia Total Creatine Kinase C-Reactive Protein Total Protein Albumin Lipase Arterial Blood Glucose Arterial Blood Ionized Calcium Urine WBC (Auto) U Epithel Cells (Auto) Acetaminophen Complement C3 Complement C4 Syphilis IgG Antibody HSV I Specific Ab Crossmatch 07/21/20 07/21/20 07/21/20 13:59 16:14 17:22 WBC RBC Hgb Hct MCV MCH MCHC RDW Plt Count Lymph % (Auto) Benson % (Auto) Lymph # (Auto) Benson # (Auto) Eos # (Auto) Seg Neutrophils % Seg Neuts % (Manual) Lymphocytes % (Manual) Monocytes % (Manual) Nucleated RBC % Seg Neutrophils # Seg Neutrophils # Man Lymphocytes # (Manual) Monocytes # (Manual) Eosinophils # (Manual) PT INR ABG pH POC ABG pCO2 POC ABG pO2 ABG pO2 ABG Base Excess ABG Hemoglobin ABG Oxyhemoglobin ABG Sodium ABG Potassium ABG Chloride ABG Glucose VBG pH Oxyhemoglobin Carboxyhemoglobin Sodium Potassium 3.0 L Chloride 112.5 H Carbon Dioxide 16 L D BUN 48 H Creatinine Glucose 157 H POC Glucose 164 H 171 H Lactic Acid Calcium 7.3 L Phosphorus Magnesium Total Bilirubin Direct Bilirubin AST ALT Alkaline Phosphatase Ammonia Total Creatine Kinase C-Reactive Protein Total Protein Albumin Lipase Arterial Blood Glucose Arterial Blood Ionized Calcium Urine WBC (Auto) U Epithel Cells (Auto) Acetaminophen Complement C3 Complement C4 Syphilis IgG Antibody HSV I Specific Ab Crossmatch 12/25/20 12/26/20 12/26/20 20:06 04:25 07:57 WBC 28.9 H RBC 2.35 L Hgb 8.0 L Hct 22.2 L MCV MCH 34 H MCHC 36 H RDW 20.5 H Plt Count 41 L Lymph % (Auto) Benson % (Auto) Lymph # (Auto) Benson # (Auto) Eos # (Auto) Seg Neutrophils % Seg Neuts % (Manual) 83.0 H Lymphocytes % (Manual) 6.0 L Monocytes % (Manual) Nucleated RBC % 2.0 H Seg Neutrophils # Seg Neutrophils # Man 24.0 H Lymphocytes # (Manual) Monocytes # (Manual) 1.4 H Eosinophils # (Manual) 0.6 H PT INR ABG pH 7.500 H POC ABG pCO2 POC ABG pO2 ABG pO2 104.9 H ABG Base Excess ABG Hemoglobin 8.6 L ABG Oxyhemoglobin ABG Sodium ABG Potassium ABG Chloride ABG Glucose VBG pH Oxyhemoglobin Carboxyhemoglobin Sodium Potassium Chloride Carbon Dioxide BUN Creatinine Glucose POC Glucose 128 H Lactic Acid Calcium Phosphorus Magnesium Total Bilirubin Direct Bilirubin AST ALT Alkaline Phosphatase Ammonia Total Creatine Kinase C-Reactive Protein Total Protein Albumin Lipase Arterial Blood Glucose Arterial Blood Ionized Calcium Urine WBC (Auto) U Epithel Cells (Auto) Acetaminophen Complement C3 Complement C4 Syphilis IgG Antibody HSV I Specific Ab Crossmatch 07/22/20 07/22/20 07/22/20 07:57 07:57 12:08 WBC RBC Hgb Hct MCV MCH MCHC RDW Plt Count Lymph % (Auto) Benson % (Auto) Lymph # (Auto) Benson # (Auto) Eos # (Auto) Seg Neutrophils % Seg Neuts % (Manual) Lymphocytes % (Manual) Monocytes % (Manual) Nucleated RBC % Seg Neutrophils # Seg Neutrophils # Man Lymphocytes # (Manual) Monocytes # (Manual) Eosinophils # (Manual) PT 21.6 H INR 1.87 H ABG pH POC ABG pCO2 POC ABG pO2 ABG pO2 ABG Base Excess ABG Hemoglobin ABG Oxyhemoglobin ABG Sodium ABG Potassium ABG Chloride ABG Glucose VBG pH Oxyhemoglobin Carboxyhemoglobin Sodium 147 H D Potassium 2.6 L* Chloride 112.7 H Carbon Dioxide BUN 51 H Creatinine Glucose 104 H POC Glucose Lactic Acid Calcium 7.8 L Phosphorus 1.10 L Magnesium 1.50 L Total Bilirubin 9.80 H 11.10 H Direct Bilirubin 8.8 H AST 234 H 231 H ALT 297 H 286 H Alkaline Phosphatase 296 H 323 H Ammonia Total Creatine Kinase C-Reactive Protein Total Protein 4.1 L 3.6 L Albumin 1.8 L 2.0 L Lipase Arterial Blood Glucose Arterial Blood Ionized Calcium Urine WBC (Auto) U Epithel Cells (Auto) Acetaminophen Complement C3 Complement C4 Syphilis IgG Antibody HSV I Specific Ab Crossmatch 07/23/20 07/23/20 07/23/20 01:53 02:51 07:38 WBC RBC Hgb Hct MCV MCH MCHC RDW Plt Count Lymph % (Auto) Benson % (Auto) Lymph # (Auto) Benson # (Auto) Eos # (Auto) Seg Neutrophils % Seg Neuts % (Manual) Lymphocytes % (Manual) Monocytes % (Manual) Nucleated RBC % Seg Neutrophils # Seg Neutrophils # Man Lymphocytes # (Manual) Monocytes # (Manual) Eosinophils # (Manual) PT INR ABG pH 7.313 L POC ABG pCO2 POC ABG pO2 67.0 L ABG pO2 ABG Base Excess ABG Hemoglobin ABG Oxyhemoglobin ABG Sodium ABG Potassium 3.2 L ABG Chloride 115.0 H ABG Glucose VBG pH Oxyhemoglobin Carboxyhemoglobin Sodium Potassium Chloride Carbon Dioxide BUN Creatinine Glucose POC Glucose 64 L 62 L Lactic Acid Calcium Phosphorus Magnesium Total Bilirubin Direct Bilirubin AST ALT Alkaline Phosphatase Ammonia Total Creatine Kinase C-Reactive Protein Total Protein Albumin Lipase Arterial Blood Glucose Arterial Blood Ionized Calcium 4.3 L Urine WBC (Auto) U Epithel Cells (Auto) Acetaminophen Complement C3 Complement C4 Syphilis IgG Antibody HSV I Specific Ab Crossmatch 07/23/20 07/23/20 07/23/20 07:39 07:39 23:52 WBC 37.0 H RBC 2.30 L Hgb 7.8 L Hct 22.5 L MCV 98 H MCH 34 H MCHC 35 H RDW 21.3 H Plt Count 55 L Lymph % (Auto) Benson % (Auto) Lymph # (Auto) Benson # (Auto) Eos # (Auto) Seg Neutrophils % Seg Neuts % (Manual) 78.0 H Lymphocytes % (Manual) 10.0 L Monocytes % (Manual) Nucleated RBC % 3.0 H Seg Neutrophils # Seg Neutrophils # Man 28.9 H Lymphocytes # (Manual) Monocytes # (Manual) 1.1 H Eosinophils # (Manual) 0.7 H PT INR ABG pH POC ABG pCO2 POC ABG pO2 ABG pO2 ABG Base Excess ABG Hemoglobin ABG Oxyhemoglobin ABG Sodium ABG Potassium ABG Chloride ABG Glucose VBG pH Oxyhemoglobin Carboxyhemoglobin Sodium 148 H Potassium Chloride 114.0 H Carbon Dioxide BUN 59 H Creatinine 1.5 H Glucose POC Glucose Lactic Acid Calcium 7.7 L Phosphorus 4.60 H D Magnesium Total Bilirubin 11.20 H Direct Bilirubin AST 245 H ALT 242 H Alkaline Phosphatase 423 H Ammonia Total Creatine Kinase C-Reactive Protein 17.20 H Total Protein 4.3 L Albumin 1.8 L Lipase Arterial Blood Glucose Arterial Blood Ionized Calcium Urine WBC (Auto) U Epithel Cells (Auto) Acetaminophen Complement C3 Complement C4 Syphilis IgG Antibody HSV I Specific Ab Crossmatch 07/23/20 07/23/20 07/23/20 23:52 23:52 Unknown WBC RBC Hgb Hct MCV MCH MCHC RDW Plt Count Lymph % (Auto) Benson % (Auto) Lymph # (Auto) Benson # (Auto) Eos # (Auto) Seg Neutrophils % Seg Neuts % (Manual) Lymphocytes % (Manual) Monocytes % (Manual) Nucleated RBC % Seg Neutrophils # Seg Neutrophils # Man Lymphocytes # (Manual) Monocytes # (Manual) Eosinophils # (Manual) PT INR ABG pH POC ABG pCO2 POC ABG pO2 ABG pO2 ABG Base Excess ABG Hemoglobin ABG Oxyhemoglobin ABG Sodium ABG Potassium ABG Chloride ABG Glucose VBG pH Oxyhemoglobin Carboxyhemoglobin Sodium Potassium Chloride Carbon Dioxide BUN Creatinine Glucose POC Glucose Lactic Acid Calcium Phosphorus Magnesium Total Bilirubin Direct Bilirubin AST ALT Alkaline Phosphatase Ammonia Total Creatine Kinase C-Reactive Protein Total Protein Albumin Lipase Arterial Blood Glucose Arterial Blood Ionized Calcium Urine WBC (Auto) 102.0 H U Epithel Cells (Auto) Acetaminophen Complement C3 55 L Complement C4 11 L Syphilis IgG Antibody HSV I Specific Ab Crossmatch 07/24/20 07/24/20 07/24/20 03:39 10:14 10:14 WBC RBC Hgb Hct MCV MCH MCHC RDW Plt Count Lymph % (Auto) Benson % (Auto) Lymph # (Auto) Benson # (Auto) Eos # (Auto) Seg Neutrophils % Seg Neuts % (Manual) Lymphocytes % (Manual) Monocytes % (Manual) Nucleated RBC % Seg Neutrophils # Seg Neutrophils # Man Lymphocytes # (Manual) Monocytes # (Manual) Eosinophils # (Manual) PT INR ABG pH POC ABG pCO2 POC ABG pO2 147.8 H ABG pO2 ABG Base Excess ABG Hemoglobin 5.5 L ABG Oxyhemoglobin ABG Sodium ABG Potassium 3.0 L ABG Chloride 117.0 H ABG Glucose VBG pH Oxyhemoglobin Carboxyhemoglobin Sodium 150 H Potassium 2.6 L* D Chloride 117.1 H Carbon Dioxide BUN 48 H Creatinine Glucose POC Glucose Lactic Acid Calcium 8.2 L Phosphorus 2.30 L D Magnesium 1.50 L Total Bilirubin Direct Bilirubin AST ALT Alkaline Phosphatase Ammonia Total Creatine Kinase C-Reactive Protein Total Protein Albumin Lipase Arterial Blood Glucose Arterial Blood Ionized Calcium Urine WBC (Auto) U Epithel Cells (Auto) Acetaminophen Complement C3 Complement C4 Syphilis IgG Antibody HSV I Specific Ab Crossmatch 07/24/20 07/24/20 07/24/20 10:14 10:14 21:31 WBC RBC Hgb Hct MCV MCH MCHC RDW Plt Count Lymph % (Auto) Benson % (Auto) Lymph # (Auto) Benson # (Auto) Eos # (Auto) Seg Neutrophils % Seg Neuts % (Manual) Lymphocytes % (Manual) Monocytes % (Manual) Nucleated RBC % Seg Neutrophils # Seg Neutrophils # Man Lymphocytes # (Manual) Monocytes # (Manual) Eosinophils # (Manual) PT 22.7 H INR 1.99 H ABG pH POC ABG pCO2 POC ABG pO2 ABG pO2 ABG Base Excess ABG Hemoglobin ABG Oxyhemoglobin ABG Sodium ABG Potassium ABG Chloride ABG Glucose VBG pH Oxyhemoglobin Carboxyhemoglobin Sodium Potassium Chloride Carbon Dioxide BUN Creatinine Glucose POC Glucose 59 L Lactic Acid Calcium Phosphorus Magnesium Total Bilirubin 10.30 H Direct Bilirubin 7.8 H AST 144 H ALT 129 H Alkaline Phosphatase 308 H Ammonia Total Creatine Kinase C-Reactive Protein Total Protein 4.2 L Albumin 2.4 L Lipase Arterial Blood Glucose Arterial Blood Ionized Calcium Urine WBC (Auto) U Epithel Cells (Auto) Acetaminophen Complement C3 Complement C4 Syphilis IgG Antibody HSV I Specific Ab Crossmatch 07/25/20 07/25/20 07/25/20 05:19 05:20 08:38 WBC RBC Hgb Hct MCV MCH MCHC RDW Plt Count Lymph % (Auto) Benson % (Auto) Lymph # (Auto) Benson # (Auto) Eos # (Auto) Seg Neutrophils % Seg Neuts % (Manual) Lymphocytes % (Manual) Monocytes % (Manual) Nucleated RBC % Seg Neutrophils # Seg Neutrophils # Man Lymphocytes # (Manual) Monocytes # (Manual) Eosinophils # (Manual) PT INR ABG pH 7.458 H POC ABG pCO2 POC ABG pO2 77.5 L ABG pO2 ABG Base Excess ABG Hemoglobin 8.5 L ABG Oxyhemoglobin 93.9 L ABG Sodium 147.8 H ABG Potassium 2.9 L ABG Chloride 118.0 H ABG Glucose VBG pH Oxyhemoglobin Carboxyhemoglobin 2.1 H Sodium Potassium Chloride Carbon Dioxide BUN Creatinine Glucose POC Glucose 55 L 107 H Lactic Acid Calcium Phosphorus Magnesium Total Bilirubin Direct Bilirubin AST ALT Alkaline Phosphatase Ammonia Total Creatine Kinase C-Reactive Protein Total Protein Albumin Lipase Arterial Blood Glucose Arterial Blood Ionized Calcium Urine WBC (Auto) U Epithel Cells (Auto) Acetaminophen Complement C3 Complement C4 Syphilis IgG Antibody HSV I Specific Ab Crossmatch 07/25/20 07/25/20 07/25/20 09:53 09:53 21:54 WBC RBC Hgb Hct MCV MCH MCHC RDW Plt Count Lymph % (Auto) Benson % (Auto) Lymph # (Auto) Benson # (Auto) Eos # (Auto) Seg Neutrophils % Seg Neuts % (Manual) Lymphocytes % (Manual) Monocytes % (Manual) Nucleated RBC % Seg Neutrophils # Seg Neutrophils # Man Lymphocytes # (Manual) Monocytes # (Manual) Eosinophils # (Manual) PT 22.3 H INR 1.94 H ABG pH POC ABG pCO2 POC ABG pO2 ABG pO2 ABG Base Excess ABG Hemoglobin ABG Oxyhemoglobin ABG Sodium ABG Potassium ABG Chloride ABG Glucose VBG pH Oxyhemoglobin Carboxyhemoglobin Sodium 154 H Potassium 2.8 L* Chloride 121.5 H Carbon Dioxide BUN 47 H Creatinine Glucose POC Glucose 112 H Lactic Acid Calcium Phosphorus Magnesium Total Bilirubin 11.60 H Direct Bilirubin AST 141 H ALT 115 H Alkaline Phosphatase 355 H Ammonia Total Creatine Kinase C-Reactive Protein Total Protein 4.3 L Albumin 2.2 L Lipase Arterial Blood Glucose Arterial Blood Ionized Calcium Urine WBC (Auto) U Epithel Cells (Auto) Acetaminophen Complement C3 Complement C4 Syphilis IgG Antibody HSV I Specific Ab Crossmatch 07/26/20 07/26/20 07/26/20 01:54 05:38 07:48 WBC RBC Hgb Hct MCV MCH MCHC RDW Plt Count Lymph % (Auto) Benson % (Auto) Lymph # (Auto) Benson # (Auto) Eos # (Auto) Seg Neutrophils % Seg Neuts % (Manual) Lymphocytes % (Manual) Monocytes % (Manual) Nucleated RBC % Seg Neutrophils # Seg Neutrophils # Man Lymphocytes # (Manual) Monocytes # (Manual) Eosinophils # (Manual) PT INR ABG pH POC ABG pCO2 POC ABG pO2 ABG pO2 ABG Base Excess ABG Hemoglobin ABG Oxyhemoglobin ABG Sodium ABG Potassium ABG Chloride ABG Glucose VBG pH Oxyhemoglobin Carboxyhemoglobin Sodium Potassium Chloride Carbon Dioxide BUN Creatinine Glucose POC Glucose 130 H 155 H 155 H Lactic Acid Calcium Phosphorus Magnesium Total Bilirubin Direct Bilirubin AST ALT Alkaline Phosphatase Ammonia Total Creatine Kinase C-Reactive Protein Total Protein Albumin Lipase Arterial Blood Glucose Arterial Blood Ionized Calcium Urine WBC (Auto) U Epithel Cells (Auto) Acetaminophen Complement C3 Complement C4 Syphilis IgG Antibody HSV I Specific Ab Crossmatch 07/26/20 07/26/20 07/26/20 11:31 14:47 14:47 WBC RBC Hgb Hct MCV MCH MCHC RDW Plt Count Lymph % (Auto) Benson % (Auto) Lymph # (Auto) [place] # (Auto) Eos # (Auto) Seg Neutrophils % Seg Neuts % (Manual) Lymphocytes % (Manual) Monocytes % (Manual) Nucleated RBC % Seg Neutrophils # Seg Neutrophils # Man Lymphocytes # (Manual) Monocytes # (Manual) Eosinophils # (Manual) PT 21.2 H INR 1.83 H ABG pH POC ABG pCO2 POC ABG pO2 ABG pO2 ABG Base Excess ABG Hemoglobin ABG Oxyhemoglobin ABG Sodium ABG Potassium ABG Chloride ABG Glucose VBG pH Oxyhemoglobin Carboxyhemoglobin Sodium 148 H Potassium 3.4 L D Chloride 118.2 H Carbon Dioxide BUN 42 H Creatinine Glucose 177 H POC Glucose 147 H Lactic Acid Calcium Phosphorus Magnesium Total Bilirubin Direct Bilirubin AST ALT Alkaline Phosphatase Ammonia Total Creatine Kinase C-Reactive Protein Total Protein Albumin Lipase Arterial Blood Glucose Arterial Blood Ionized Calcium Urine WBC (Auto) U Epithel Cells (Auto) Acetaminophen Complement C3 Complement C4 Syphilis IgG Antibody HSV I Specific Ab Crossmatch 07/26/20 07/26/20 07/26/20 14:47 16:57 21:36 WBC RBC Hgb Hct MCV MCH MCHC RDW Plt Count Lymph % (Auto) [place] % (Auto) Lymph # (Auto) [place] # (Auto) Eos # (Auto) Seg Neutrophils % Seg Neuts % (Manual) Lymphocytes % (Manual) Monocytes % (Manual) Nucleated RBC % Seg Neutrophils # Seg Neutrophils # Man Lymphocytes # (Manual) Monocytes # (Manual) Eosinophils # (Manual) PT INR ABG pH POC ABG pCO2 POC ABG pO2 ABG pO2 ABG Base Excess ABG Hemoglobin ABG Oxyhemoglobin ABG Sodium ABG Potassium ABG Chloride ABG Glucose VBG pH Oxyhemoglobin Carboxyhemoglobin Sodium Potassium Chloride Carbon Dioxide BUN Creatinine Glucose POC Glucose 149 H 129 H Lactic Acid Calcium Phosphorus Magnesium Total Bilirubin 11.30 H Direct Bilirubin 8.6 H AST 139 H ALT 109 H Alkaline Phosphatase 368 H Ammonia Total Creatine Kinase C-Reactive Protein Total Protein 4.1 L Albumin 2.3 L Lipase Arterial Blood Glucose Arterial Blood Ionized Calcium Urine WBC (Auto) U Epithel Cells (Auto) Acetaminophen Complement C3 Complement C4 Syphilis IgG Antibody HSV I Specific Ab Crossmatch 07/27/20 07/27/20 07/27/20 02:03 04:45 04:45 WBC 22.2 H RBC 1.95 L Hgb 6.5 L Hct 18.9 L* MCV MCH 34 H MCHC 35 H RDW 21.3 H Plt Count 29 L Lymph % (Auto) Benson % (Auto) Lymph # (Auto) Benson # (Auto) Eos # (Auto) Seg Neutrophils % Seg Neuts % (Manual) 82.0 H Lymphocytes % (Manual) 3.0 L Monocytes % (Manual) Nucleated RBC % Seg Neutrophils # Seg Neutrophils # Man 18.2 H Lymphocytes # (Manual) 0.7 L Monocytes # (Manual) Eosinophils # (Manual) PT INR ABG pH POC ABG pCO2 POC ABG pO2 ABG pO2 ABG Base Excess ABG Hemoglobin ABG Oxyhemoglobin ABG Sodium ABG Potassium ABG Chloride ABG Glucose VBG pH Oxyhemoglobin Carboxyhemoglobin Sodium 150 H Potassium 3.4 L Chloride 119.4 H Carbon Dioxide BUN 47 H Creatinine Glucose 137 H POC Glucose 134 H Lactic Acid Calcium Phosphorus Magnesium Total Bilirubin 9.60 H Direct Bilirubin AST 120 H ALT 89 H Alkaline Phosphatase 340 H Ammonia Total Creatine Kinase C-Reactive Protein Total Protein 3.7 L Albumin 2.1 L Lipase Arterial Blood Glucose Arterial Blood Ionized Calcium Urine WBC (Auto) U Epithel Cells (Auto) Acetaminophen Complement C3 Complement C4 Syphilis IgG Antibody HSV I Specific Ab Crossmatch 07/27/20 07/27/20 07/27/20 05:36 08:45 10:28 WBC RBC Hgb Hct MCV MCH MCHC RDW Plt Count Lymph % (Auto) Benson % (Auto) Lymph # (Auto) Benson # (Auto) Eos # (Auto) Seg Neutrophils % Seg Neuts % (Manual) Lymphocytes % (Manual) Monocytes % (Manual) Nucleated RBC % Seg Neutrophils # Seg Neutrophils # Man Lymphocytes # (Manual) Monocytes # (Manual) Eosinophils # (Manual) PT INR ABG pH POC ABG pCO2 POC ABG pO2 ABG pO2 ABG Base Excess ABG Hemoglobin ABG Oxyhemoglobin ABG Sodium ABG Potassium ABG Chloride ABG Glucose VBG pH Oxyhemoglobin Carboxyhemoglobin Sodium Potassium Chloride Carbon Dioxide BUN Creatinine Glucose POC Glucose 126 H 149 H Lactic Acid Calcium Phosphorus Magnesium Total Bilirubin Direct Bilirubin AST ALT Alkaline Phosphatase Ammonia Total Creatine Kinase C-Reactive Protein Total Protein Albumin Lipase Arterial Blood Glucose Arterial Blood Ionized Calcium Urine WBC (Auto) U Epithel Cells (Auto) Acetaminophen Complement C3 Complement C4 Syphilis IgG Antibody HSV I Specific Ab Crossmatch See Detail 07/27/20 07/28/20 07/28/20 15:32 00:32 05:09 WBC RBC Hgb 9.5 L D Hct 28.6 L D MCV MCH MCHC RDW Plt Count Lymph % (Auto) Benson % (Auto) Lymph # (Auto) Benson # (Auto) Eos # (Auto) Seg Neutrophils % Seg Neuts % (Manual) Lymphocytes % (Manual) Monocytes % (Manual) Nucleated RBC % Seg Neutrophils # Seg Neutrophils # Man Lymphocytes # (Manual) Monocytes # (Manual) Eosinophils # (Manual) PT INR ABG pH POC ABG pCO2 POC ABG pO2 67.3 L ABG pO2 ABG Base Excess ABG Hemoglobin 10.5 L ABG Oxyhemoglobin 90.9 L ABG Sodium ABG Potassium ABG Chloride 117.0 H ABG Glucose 105 H VBG pH Oxyhemoglobin Carboxyhemoglobin Sodium Potassium Chloride Carbon Dioxide BUN Creatinine Glucose POC Glucose 113 H Lactic Acid Calcium Phosphorus Magnesium Total Bilirubin Direct Bilirubin AST ALT Alkaline Phosphatase Ammonia Total Creatine Kinase C-Reactive Protein Total Protein Albumin Lipase Arterial Blood Glucose 105 H Arterial Blood Ionized Calcium Urine WBC (Auto) U Epithel Cells (Auto) Acetaminophen Complement C3 Complement C4 Syphilis IgG Antibody HSV I Specific Ab Crossmatch 07/28/20 07/28/20 07/28/20 09:42 11:50 16:43 WBC RBC Hgb Hct MCV MCH MCHC RDW Plt Count Lymph % (Auto) Benson % (Auto) Lymph # (Auto) Benson # (Auto) Eos # (Auto) Seg Neutrophils % Seg Neuts % (Manual) Lymphocytes % (Manual) Monocytes % (Manual) Nucleated RBC % Seg Neutrophils # Seg Neutrophils # Man Lymphocytes # (Manual) Monocytes # (Manual) Eosinophils # (Manual) PT INR ABG pH POC ABG pCO2 POC ABG pO2 ABG pO2 ABG Base Excess ABG Hemoglobin ABG Oxyhemoglobin ABG Sodium ABG Potassium ABG Chloride ABG Glucose VBG pH Oxyhemoglobin Carboxyhemoglobin Sodium 146 H Potassium Chloride 116.7 H Carbon Dioxide 20 L BUN 51 H Creatinine 1.6 H D Glucose 107 H POC Glucose 109 H 114 H Lactic Acid Calcium 8.2 L Phosphorus Magnesium Total Bilirubin 9.70 H Direct Bilirubin AST 195 H ALT 99 H Alkaline Phosphatase 422 H Ammonia Total Creatine Kinase C-Reactive Protein Total Protein 5.2 L D Albumin 2.1 L Lipase Arterial Blood Glucose Arterial Blood Ionized Calcium Urine WBC (Auto) U Epithel Cells (Auto) Acetaminophen Complement C3 Complement C4 Syphilis IgG Antibody HSV I Specific Ab Crossmatch 07/28/20 07/28/20 07/29/20 21:29 23:48 02:10 WBC RBC Hgb Hct MCV MCH MCHC RDW Plt Count Lymph % (Auto) Benson % (Auto) Lymph # (Auto) Benson # (Auto) Eos # (Auto) Seg Neutrophils % Seg Neuts % (Manual) Lymphocytes % (Manual) Monocytes % (Manual) Nucleated RBC % Seg Neutrophils # Seg Neutrophils # Man Lymphocytes # (Manual) Monocytes # (Manual) Eosinophils # (Manual) PT INR ABG pH POC ABG pCO2 POC ABG pO2 ABG pO2 ABG Base Excess ABG Hemoglobin ABG Oxyhemoglobin ABG Sodium ABG Potassium ABG Chloride ABG Glucose VBG pH Oxyhemoglobin Carboxyhemoglobin Sodium Potassium Chloride Carbon Dioxide BUN Creatinine Glucose POC Glucose 122 H 117 H 136 H Lactic Acid Calcium Phosphorus Magnesium Total Bilirubin Direct Bilirubin AST ALT Alkaline Phosphatase Ammonia Total Creatine Kinase C-Reactive Protein Total Protein Albumin Lipase Arterial Blood Glucose Arterial Blood Ionized Calcium Urine WBC (Auto) U Epithel Cells (Auto) Acetaminophen Complement C3 Complement C4 Syphilis IgG Antibody HSV I Specific Ab Crossmatch 07/29/20 07/29/20 07/29/20 05:15 12:19 13:34 WBC RBC Hgb Hct MCV MCH MCHC RDW Plt Count Lymph % (Auto) Benson % (Auto) Lymph # (Auto) Benson # (Auto) Eos # (Auto) Seg Neutrophils % Seg Neuts % (Manual) Lymphocytes % (Manual) Monocytes % (Manual) Nucleated RBC % Seg Neutrophils # Seg Neutrophils # Man Lymphocytes # (Manual) Monocytes # (Manual) Eosinophils # (Manual) PT INR ABG pH POC ABG pCO2 POC ABG pO2 ABG pO2 ABG Base Excess ABG Hemoglobin ABG Oxyhemoglobin ABG Sodium ABG Potassium ABG Chloride ABG Glucose VBG pH Oxyhemoglobin Carboxyhemoglobin Sodium Potassium Chloride Carbon Dioxide BUN Creatinine Glucose POC Glucose 128 H 115 H 124 H Lactic Acid Calcium Phosphorus Magnesium Total Bilirubin Direct Bilirubin AST ALT Alkaline Phosphatase Ammonia Total Creatine Kinase C-Reactive Protein Total Protein Albumin Lipase Arterial Blood Glucose Arterial Blood Ionized Calcium Urine WBC (Auto) U Epithel Cells (Auto) Acetaminophen Complement C3 Complement C4 Syphilis IgG Antibody HSV I Specific Ab Crossmatch 07/29/20 07/29/20 07/29/20 13:42 15:00 17:04 WBC 37.2 H RBC 2.90 L Hgb 9.4 L Hct 28.2 L MCV 98 H MCH 33 H MCHC RDW 19.3 H Plt Count 55 L Lymph % (Auto) Benson % (Auto) Lymph # (Auto) Benson # (Auto) Eos # (Auto) Seg Neutrophils % Seg Neuts % (Manual) 93.0 H Lymphocytes % (Manual) 6.0 L Monocytes % (Manual) Nucleated RBC % 2.0 H Seg Neutrophils # Seg Neutrophils # Man 34.6 H Lymphocytes # (Manual) Monocytes # (Manual) Eosinophils # (Manual) PT INR ABG pH POC ABG pCO2 POC ABG pO2 ABG pO2 ABG Base Excess ABG Hemoglobin ABG Oxyhemoglobin ABG Sodium ABG Potassium ABG Chloride ABG Glucose VBG pH Oxyhemoglobin Carboxyhemoglobin Sodium 148 H Potassium Chloride 117.9 H Carbon Dioxide 21 L BUN 62 H Creatinine 1.8 H Glucose 124 H POC Glucose Lactic Acid Calcium 8.1 L Phosphorus Magnesium Total Bilirubin Direct Bilirubin AST ALT Alkaline Phosphatase Ammonia Total Creatine Kinase C-Reactive Protein Total Protein Albumin Lipase Arterial Blood Glucose Arterial Blood Ionized Calcium Urine WBC (Auto) 127.0 H U Epithel Cells (Auto) 18.0 H Acetaminophen Complement C3 Complement C4 Syphilis IgG Antibody HSV I Specific Ab Crossmatch 07/29/20 07/29/20 07/30/20 18:25 21:28 01:57 WBC RBC Hgb Hct MCV MCH MCHC RDW Plt Count Lymph % (Auto) Benson % (Auto) Lymph # (Auto) Benson # (Auto) Eos # (Auto) Seg Neutrophils % Seg Neuts % (Manual) Lymphocytes % (Manual) Monocytes % (Manual) Nucleated RBC % Seg Neutrophils # Seg Neutrophils # Man Lymphocytes # (Manual) Monocytes # (Manual) Eosinophils # (Manual) PT INR ABG pH POC ABG pCO2 POC ABG pO2 ABG pO2 ABG Base Excess ABG Hemoglobin ABG Oxyhemoglobin ABG Sodium ABG Potassium ABG Chloride ABG Glucose VBG pH Oxyhemoglobin Carboxyhemoglobin Sodium Potassium Chloride Carbon Dioxide BUN Creatinine Glucose POC Glucose 129 H 113 H 115 H Lactic Acid Calcium Phosphorus Magnesium Total Bilirubin Direct Bilirubin AST ALT Alkaline Phosphatase Ammonia Total Creatine Kinase C-Reactive Protein Total Protein Albumin Lipase Arterial Blood Glucose Arterial Blood Ionized Calcium Urine WBC (Auto) U Epithel Cells (Auto) Acetaminophen Complement C3 Complement C4 Syphilis IgG Antibody HSV I Specific Ab Crossmatch 07/30/20 07/30/20 07/30/20 05:36 05:46 11:40 WBC RBC Hgb Hct MCV MCH MCHC RDW Plt Count Lymph % (Auto) Benson % (Auto) Lymph # (Auto) Benson # (Auto) Eos # (Auto) Seg Neutrophils % Seg Neuts % (Manual) Lymphocytes % (Manual) Monocytes % (Manual) Nucleated RBC % Seg Neutrophils # Seg Neutrophils # Man Lymphocytes # (Manual) Monocytes # (Manual) Eosinophils # (Manual) PT INR ABG pH POC ABG pCO2 POC ABG pO2 ABG pO2 ABG Base Excess ABG Hemoglobin ABG Oxyhemoglobin ABG Sodium ABG Potassium ABG Chloride ABG Glucose VBG pH Oxyhemoglobin Carboxyhemoglobin Sodium 149 H Potassium Chloride 118.2 H Carbon Dioxide 20 L BUN 64 H Creatinine 2.0 H Glucose 133 H POC Glucose 115 H 126 H Lactic Acid Calcium 7.7 L Phosphorus Magnesium Total Bilirubin Direct Bilirubin AST ALT Alkaline Phosphatase Ammonia Total Creatine Kinase C-Reactive Protein Total Protein Albumin Lipase Arterial Blood Glucose Arterial Blood Ionized Calcium Urine WBC (Auto) U Epithel Cells (Auto) Acetaminophen Complement C3 Complement C4 Syphilis IgG Antibody HSV I Specific Ab Crossmatch 07/30/20 07/30/20 07/31/20 18:11 21:31 01:18 WBC RBC Hgb Hct MCV MCH MCHC RDW Plt Count Lymph % (Auto) Benson % (Auto) Lymph # (Auto) Benson # (Auto) Eos # (Auto) Seg Neutrophils % Seg Neuts % (Manual) Lymphocytes % (Manual) Monocytes % (Manual) Nucleated RBC % Seg Neutrophils # Seg Neutrophils # Man Lymphocytes # (Manual) Monocytes # (Manual) Eosinophils # (Manual) PT INR ABG pH POC ABG pCO2 POC ABG pO2 ABG pO2 ABG Base Excess ABG Hemoglobin ABG Oxyhemoglobin ABG Sodium ABG Potassium ABG Chloride ABG Glucose VBG pH Oxyhemoglobin Carboxyhemoglobin Sodium Potassium Chloride Carbon Dioxide BUN Creatinine Glucose POC Glucose 138 H 140 H 133 H Lactic Acid Calcium Phosphorus Magnesium Total Bilirubin Direct Bilirubin AST ALT Alkaline Phosphatase Ammonia Total Creatine Kinase C-Reactive Protein Total Protein Albumin Lipase Arterial Blood Glucose Arterial Blood Ionized Calcium Urine WBC (Auto) U Epithel Cells (Auto) Acetaminophen Complement C3 Complement C4 Syphilis IgG Antibody HSV I Specific Ab Crossmatch 07/31/20 07/31/20 07/31/20 05:14 17:39 18:43 WBC 25.2 H RBC 3.06 L Hgb Hct 30.0 L MCV 98 H MCH 34 H MCHC 35 H RDW 19.0 H Plt Count 67 L Lymph % (Auto) Benson % (Auto) Lymph # (Auto) Benson # (Auto) Eos # (Auto) Seg Neutrophils % Seg Neuts % (Manual) Lymphocytes % (Manual) Monocytes % (Manual) Nucleated RBC % Seg Neutrophils # Seg Neutrophils # Man Lymphocytes # (Manual) Monocytes # (Manual) Eosinophils # (Manual) PT INR ABG pH POC ABG pCO2 POC ABG pO2 ABG pO2 ABG Base Excess ABG Hemoglobin ABG Oxyhemoglobin ABG Sodium ABG Potassium ABG Chloride ABG Glucose VBG pH Oxyhemoglobin Carboxyhemoglobin Sodium Potassium Chloride Carbon Dioxide BUN Creatinine Glucose POC Glucose 118 H 111 H Lactic Acid Calcium Phosphorus Magnesium Total Bilirubin Direct Bilirubin AST ALT Alkaline Phosphatase Ammonia Total Creatine Kinase C-Reactive Protein Total Protein Albumin Lipase Arterial Blood Glucose Arterial Blood Ionized Calcium Urine WBC (Auto) U Epithel Cells (Auto) Acetaminophen Complement C3 Complement C4 Syphilis IgG Antibody HSV I Specific Ab Crossmatch 07/31/20 07/31/20 07/31/20 18:43 21:14 23:28 WBC RBC Hgb Hct MCV MCH MCHC RDW Plt Count Lymph % (Auto) Benson % (Auto) Lymph # (Auto) Benson # (Auto) Eos # (Auto) Seg Neutrophils % Seg Neuts % (Manual) Lymphocytes % (Manual) Monocytes % (Manual) Nucleated RBC % Seg Neutrophils # Seg Neutrophils # Man Lymphocytes # (Manual) Monocytes # (Manual) Eosinophils # (Manual) PT INR ABG pH POC ABG pCO2 POC ABG pO2 ABG pO2 ABG Base Excess ABG Hemoglobin ABG Oxyhemoglobin ABG Sodium ABG Potassium ABG Chloride ABG Glucose VBG pH Oxyhemoglobin Carboxyhemoglobin Sodium 149 H Potassium Chloride 120.1 H Carbon Dioxide 18 L BUN 64 H Creatinine 2.0 H Glucose 132 H POC Glucose 117 H 123 H Lactic Acid Calcium 8.1 L Phosphorus Magnesium Total Bilirubin Direct Bilirubin AST ALT Alkaline Phosphatase Ammonia Total Creatine Kinase C-Reactive Protein Total Protein Albumin Lipase Arterial Blood Glucose Arterial Blood Ionized Calcium Urine WBC (Auto) U Epithel Cells (Auto) Acetaminophen Complement C3 Complement C4 Syphilis IgG Antibody HSV I Specific Ab Crossmatch 08/01/20 08/01/20 08/01/20 01:57 05:40 07:26 WBC RBC Hgb Hct MCV MCH MCHC RDW Plt Count Lymph % (Auto) Benson % (Auto) Lymph # (Auto) Benson # (Auto) Eos # (Auto) Seg Neutrophils % Seg Neuts % (Manual) Lymphocytes % (Manual) Monocytes % (Manual) Nucleated RBC % Seg Neutrophils # Seg Neutrophils # Man Lymphocytes # (Manual) Monocytes # (Manual) Eosinophils # (Manual) PT INR ABG pH POC ABG pCO2 POC ABG pO2 ABG pO2 ABG Base Excess ABG Hemoglobin ABG Oxyhemoglobin ABG Sodium ABG Potassium ABG Chloride ABG Glucose VBG pH Oxyhemoglobin Carboxyhemoglobin Sodium 154 H Potassium Chloride 123.4 H Carbon Dioxide BUN 60 H Creatinine 1.9 H Glucose 115 H POC Glucose 119 H 123 H Lactic Acid Calcium 8.2 L Phosphorus Magnesium Total Bilirubin Direct Bilirubin AST ALT Alkaline Phosphatase Ammonia Total Creatine Kinase C-Reactive Protein Total Protein Albumin Lipase Arterial Blood Glucose Arterial Blood Ionized Calcium Urine WBC (Auto) U Epithel Cells (Auto) Acetaminophen Complement C3 Complement C4 Syphilis IgG Antibody HSV I Specific Ab Crossmatch 08/01/20 08/01/20 08/01/20 09:51 18:00 21:23 WBC 17.2 H RBC 1.64 L Hgb 5.5 L* D Hct 20.5 L D MCV 125 H MCH 33 H MCHC 27 L RDW 22.9 H Plt Count 64 L Lymph % (Auto) Benson % (Auto) Lymph # (Auto) Benson # (Auto) Eos # (Auto) Seg Neutrophils % Seg Neuts % (Manual) Lymphocytes % (Manual) Monocytes % (Manual) Nucleated RBC % Seg Neutrophils # Seg Neutrophils # Man Lymphocytes # (Manual) Monocytes # (Manual) Eosinophils # (Manual) PT INR ABG pH POC ABG pCO2 POC ABG pO2 ABG pO2 ABG Base Excess ABG Hemoglobin ABG Oxyhemoglobin ABG Sodium ABG Potassium ABG Chloride ABG Glucose VBG pH Oxyhemoglobin Carboxyhemoglobin Sodium Potassium Chloride Carbon Dioxide BUN Creatinine Glucose POC Glucose 112 H 110 H Lactic Acid Calcium Phosphorus Magnesium Total Bilirubin Direct Bilirubin AST ALT Alkaline Phosphatase Ammonia Total Creatine Kinase C-Reactive Protein Total Protein Albumin Lipase Arterial Blood Glucose Arterial Blood Ionized Calcium Urine WBC (Auto) U Epithel Cells (Auto) Acetaminophen Complement C3 Complement C4 Syphilis IgG Antibody HSV I Specific Ab Crossmatch 08/01/20 08/01/20 08/02/20 22:40 22:40 02:07 WBC 23.4 H RBC 2.49 L Hgb 8.2 L Hct 24.8 L MCV 100 H MCH 33 H MCHC RDW 19.1 H Plt Count 81 L Lymph % (Auto) Benson % (Auto) Lymph # (Auto) Benson # (Auto) Eos # (Auto) Seg Neutrophils % Seg Neuts % (Manual) Lymphocytes % (Manual) Monocytes % (Manual) Nucleated RBC % Seg Neutrophils # Seg Neutrophils # Man Lymphocytes # (Manual) Monocytes # (Manual) Eosinophils # (Manual) PT INR ABG pH POC ABG pCO2 POC ABG pO2 ABG pO2 ABG Base Excess ABG Hemoglobin ABG Oxyhemoglobin ABG Sodium ABG Potassium ABG Chloride ABG Glucose VBG pH Oxyhemoglobin Carboxyhemoglobin Sodium Potassium Chloride Carbon Dioxide BUN Creatinine Glucose POC Glucose 119 H Lactic Acid Calcium Phosphorus Magnesium Total Bilirubin Direct Bilirubin AST ALT Alkaline Phosphatase Ammonia Total Creatine Kinase C-Reactive Protein Total Protein Albumin Lipase Arterial Blood Glucose Arterial Blood Ionized Calcium Urine WBC (Auto) U Epithel Cells (Auto) Acetaminophen Complement C3 Complement C4 Syphilis IgG Antibody HSV I Specific Ab Crossmatch See Detail 08/02/20 08/02/20 05:59 05:59 WBC 21.7 H RBC 2.82 L Hgb 9.1 L Hct 27.3 L MCV MCH MCHC RDW 19.1 H Plt Count 95 L Lymph % (Auto) 4.2 L Benson % (Auto) Lymph # (Auto) 0.9 L Benson # (Auto) 0.9 H Eos # (Auto) Seg Neutrophils % 91.2 H Seg Neuts % (Manual) Lymphocytes % (Manual) Monocytes % (Manual) Nucleated RBC % Seg Neutrophils # 19.8 H Seg Neutrophils # Man Lymphocytes # (Manual) Monocytes # (Manual) Eosinophils # (Manual) PT INR ABG pH POC ABG pCO2 POC ABG pO2 ABG pO2 ABG Base Excess ABG Hemoglobin ABG Oxyhemoglobin ABG Sodium ABG Potassium ABG Chloride ABG Glucose VBG pH Oxyhemoglobin Carboxyhemoglobin Sodium 160 H Potassium 3.3 L D Chloride 129.0 H Carbon Dioxide 21 L BUN 62 H Creatinine 2.2 H Glucose 121 H POC Glucose Lactic Acid Calcium 8.2 L Phosphorus Magnesium Total Bilirubin Direct Bilirubin AST ALT Alkaline Phosphatase Ammonia Total Creatine Kinase C-Reactive Protein Total Protein Albumin Lipase Arterial Blood Glucose Arterial Blood Ionized Calcium Urine WBC (Auto) U Epithel Cells (Auto) Acetaminophen Complement C3 Complement C4 Syphilis IgG Antibody HSV I Specific Ab Crossmatch
--- NOTE | 2020-08-02 14:38 | Nuclear Medicine Report ---
Nuclear medicine brain flow study. HISTORY: Cardiac arrest, ataxia, brain . TECHNIQUE: 20 mCi of technetium 99 M pertechnetate was database software technician intravenously with dynamic blood flow imaging of the brain. FINDINGS: No appreciable intracranial activity or blood flow was seen on the the obtained imaging. Th e graft demonstrates markedly reduced radioactivity counts within the cerebral hemisphere related to the cervical carotid vessels. The above findings would be compatible with patient's reported history of brain . IMPRESSION: Nuclear medicine brain scan demonstrates markedly reduced intracranial activity and blood flow as det kiko above. Signer Name: Tomas Rodriguez MD Signed: 08/02/2020 2:33 PM Workstation Name: [id number]
[2020-08-02] MEDS: DEXTROSE 10% IN WATER 1,000 ML IV SCH ×2 (15:29→22:14)
--- NOTE | 2020-08-02 16:23 | Progress Note ---
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 Syphilis Plan: -Renal function reviewed, SCr level was 2.2 today, yesterday's SCr level was 1.9 -Most recent serum Na level was 160 at 0600 today, yesterday's serum Na level was 154, pt not getting free water flushes due to GI bleed -Repeat BMP now, will need to see from Neuro and Resident Services Supervisor team about goals of managing hypernatremia, pt unable to tolerate free water flushes due to GI bleed. Review of Pulm/Critical care notes mentioned current clinical state with MRI findings is most compatible with Brain , Brain flow study ordered, will follow up neuro and Resident Services Supervisor recommendations on family goals of care -Replete potassium if needed -On D10 infusion at 50 ml/hr -S/p blood transfusion -S/p Albumin -Neurology evaluated pt, follow up recs -Monitor I/O's daily -Kenney Catheter: Yes -Intake= 1195 ml Output= 4000 ml (Net= -2804 ml) -Renal plan d/w Dr Thapa Subjective Principal diagnosis: Sepsis, anoxic encephalopathy Interval history: Pt seen in ICU intubated on ventilator, unresponsive Objective - Vital Signs Vital signs: Vital Signs - 12hr 08/02/20 08/02/20 08/02/20 04:30 04:45 05:00 Pulse Rate 63 64 64 Pulse Rate [ From Monitor] Respiratory 18 18 18 Rate Blood Pressure 110/58 109/57 109/53 O2 Sat by Pulse 97 97 97 Oximetry 08/02/20 08/02/20 08/02/20 05:15 05:30 05:45 Pulse Rate 65 66 67 Pulse Rate [ From Monitor] Respiratory 18 18 18 Rate Blood Pressure 108/50 105/48 103/48 O2 Sat by Pulse 96 96 96 Oximetry 08/02/20 08/02/20 08/02/20 06:00 06:15 06:30 Pulse Rate 68 68 70 Pulse Rate [ From Monitor] Respiratory 18 18 18 Rate Blood Pressure 105/50 105/47 102/50 O2 Sat by Pulse 97 97 97 Oximetry 08/02/20 08/02/20 08/02/20 06:45 07:00 07:15 Pulse Rate 69 71 70 Pulse Rate [ From Monitor] Respiratory 18 18 18 Rate Blood Pressure 101/47 103/48 102/45 O2 Sat by Pulse 97 97 97 Oximetry 08/02/20 08/02/20 08/02/20 07:30 07:45 08:00 Pulse Rate 71 72 72 Pulse Rate [ 70 From Monitor] Respiratory 18 18 18 Rate Blood Pressure 103/44 102/44 104/41 O2 Sat by Pulse 96 97 100 Oximetry 08/02/20 08/02/20 08/02/20 08:15 08:30 08:45 Pulse Rate 73 74 75 Pulse Rate [ From Monitor] Respiratory 18 18 18 Rate Blood Pressure 104/43 103/41 102/43 O2 Sat by Pulse 96 96 97 Oximetry 08/02/20 08/02/20 08/02/20 09:00 09:15 09:30 Pulse Rate 76 76 76 Pulse Rate [ From Monitor] Respiratory 18 18 18 Rate Blood Pressure 105/45 100/45 102/42 O2 Sat by Pulse 96 97 96 Oximetry 08/02/20 08/02/20 08/02/20 09:45 10:00 10:15 Pulse Rate 82 77 76 Pulse Rate [ From Monitor] Respiratory 18 18 18 Rate Blood Pressure 109/56 103/40 98/40 O2 Sat by Pulse 97 96 97 Oximetry 08/02/20 08/02/20 08/02/20 10:30 10:45 11:00 Pulse Rate 75 75 74 Pulse Rate [ From Monitor] Respiratory 18 18 18 Rate Blood Pressure 93/40 96/42 98/40 O2 Sat by Pulse 98 97 97 Oximetry 08/02/20 08/02/20 08/02/20 11:15 11:30 11:45 Pulse Rate 73 74 73 Pulse Rate [ From Monitor] Respiratory 18 18 18 Rate Blood Pressure 96/41 100/44 100/44 O2 Sat by Pulse 97 98 98 Oximetry 08/02/20 08/02/20 08/02/20 12:00 12:15 12:30 Pulse Rate 73 73 74 Pulse Rate [ 70 From Monitor] Respiratory 18 18 18 Rate Blood Pressure 97/44 103/51 95/31 O2 Sat by Pulse 97 100 98 Oximetry 08/02/20 15:20 Pulse Rate 74 Pulse Rate [ From Monitor] Respiratory Rate Blood Pressure 95/31 O2 Sat by Pulse 98 Oximetry - General Appearance General appearance: intubated EENT: ATNC Respiratory: Present: Decreased Breath Sounds (intubated) Cardiology: S1S2 Gastrointestinal: other (soft, orogastric tube in place) Neurologic: other (intubated) Musculoskeletal: other (1+ edema to BLE) - Lab 08/02/20 05:59 08/02/20 05:59 Most recent lab results ABG pH 7.412 (7.320-7.450) 07/28/20 05:09 ABG pCO2 31.2 mm Hg 07/22/20 04:25 ABG pO2 104.9 mm Hg (80.0-90.0) H 07/22/20 04:25 ABG HCO3 23.7 mmol/L (20.0-26.0) 07/22/20 04:25 ABG O2 Saturation 98.1 % (95.0-99.0) 07/22/20 04:25 Calcium 8.2 mg/dL (8.4-10.2) L 08/02/20 05:59 Phosphorus 2.30 mg/dL (2.5-4.5) L D 07/24/20 10:14 Magnesium 2.10 mg/dL (1.7-2.3) 07/27/20 16:43 Medications & Allergies - Medications Allergies/Adverse Reactions: Allergies No Known Allergies Allergy (Verified 07/16/20 22:03) Home Medications: Home Medications Medication Instructions Recorded Confirmed Last Taken Type No Known Home Medications [No 07/17/20 07/17/20 Unknown History Reported Home Medications] Active Medications: Generic Name Dose Route Start Last Admin Trade Name Freq PRN Reason Stop Dose Admin Acetaminophen 650 mg 07/23/20 00:37 07/23/20 01:05 Acetaminophen 325 Mg/10.15 Ml Oral Liqd Unit Dose FEEDTUBE 650 mg Q6H PRN Administration Fever >101 Lipase/Protease/Amylase 1 each 07/23/20 08:37 Lipase 10,500/Protease 25,000/Amylase 43,750 (Units) Dr Sher FEEDTUBE PRN PRN For Clogged Feeding Tube Thiamine HCl 100 mg/ Sodium 51 mls @ 100 mls/hr 07/18/20 10:00 08/02/20 09:52 Chloride IV 100 mls/hr QDAY ESTELA Administration Folic Acid 1 mg/ Sodium 50.2 mls @ 200.8 mls/hr 07/18/20 10:00 08/02/20 09:52 Chloride IV 200.8 mls/hr QDAY ESTELA Administration Vasopressin 20 unit/ Sodium 101 mls @ 9.09 mls/hr 07/19/20 10:00 07/30/20 1 4:08 Chloride IV 0 units/min TITR ESTELA 0 mls/hr Titration Protocol 0.03 UNITS/MIN Norepinephrine 8 mg/ Sodium 250 mls @ 3.75 mls/hr 07/19/20 21:00 07/30/20 23:00 Chloride IV 0 mcg/min TITR ESTELA 0 mls/hr Titration Protocol 2 MCG/MIN Dextrose 1,000 mls @ 50 mls/hr 07/25/20 09:00 08/02/20 15:29 D10w IV 50 mls/hr DIRECT ESTELA Administration Magnesium Hydroxide 30 ml 07/17/20 03:56 Magnesium Hydroxide (Mom) Oral Liqd Udc PO Q4H PRN Constipation Ondansetron HCl 4 mg 07/17/20 03:56 07/18/20 20:00 Ondansetron 4 Mg/2 Ml Inj IV 4 mg Q8H PRN Administration Nausea And Vomiting Pantoprazole Sodium 40 mg 08/01/20 10:00 08/02/20 09:52 Pantoprazole 40 Mg Inj IV 40 mg BID ESTELA Administration Simple Syrup 15 ml 07/23/20 08:37 Simple Syrup 15 Ml FEEDTUBE PRN PRN Hypoglycemia Simple Syrup 30 ml 07/23/20 08:37 Simple Syrup 15 Ml FEEDTUBE PRN PRN Hypoglycemia Sodium Bicarbonate 325 mg 07/23/20 08:37 Sodium Bicarbonate 325 Mg Tab FEEDTUBE PRN PRN For Clogged Feeding Tube Sodium Chloride 10 ml 07/17/20 10:00 08/02/20 09:52 Sodium Chloride 0.9% 10 Ml Flush Syringe IV 10 ml BID ESTELA Administration Sodium Chloride 10 ml 07/17/20 03:56 Sodium Chloride 0.9% 10 Ml Flush Syringe IV PRN PRN LINE FLUSH
--- NOTE | 2020-08-02 19:04 | Progress Note ---
Assessment and Plan Cultures: 07/16/2020 blood culture: no growth 07/17/2020 cervix wet prep: High number of clue cells, no trichomonas or yeast seen. 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 #Severe sepsis septic shock/MODS: remains on pressors. No clear infectious etiology. Likely secondary to acute hepatic failure. #Bilateral pneumonia versus pulmonary edema: Bilateral pleural effusions, diffuse bilateral patchy groundglass opacities. Completed empiric abx. #Acute hepatic failure: ?Toxin/med related v/s autoimmune, less likely infectious. Also ruling out HSV induced hepatic necrosis and related fulminant hepatic failure. GI also evaluated. LFTs and synthetic liver function continue to improve. MARY negative, C3, C4 low. #Acute kidney injury: resolved #Possible UTI/PID: completed empiric abx. GC NAAT negative. #Diffuse colitis noted on CT scan: s/p antibiotics. On multiple pressors. More likely to be ischemia related. No active diarrhea. #Acute encephalopathy, diffuse cerebral edema: Probably a combination of acute liver failure and hypoxic encephalopathy. #Acute thrombocytopenia #Anemia #Syphilis IgG positive, RPR titer non reactive, FTA-ABS is also nonreactive, so very likely it is a false positive Recs: -Family considering hospice/comfort . -overall guarded prognosis Pending potential declaration of brain . No further infectious disease recommendations at this time. Please call back with any questions. Usha Martinez MD [facility] ([facility]) O: [phone] F: [phone] Subjective Date of service: 08/02/20 Principal diagnosis: Sepsis, anoxic encephalopathy Interval history: Afebrile, white count is persistently elevated at 22. Imaging personally reviewed Right lobe scan markedly reduced intracranial activity Objective - Exam Narrative Exam: Constitutional: unresponsive, intubated, on the vent Head, Ears, Nose: Normocephalic, atraumatic. Eyes: Conjunctivae/corneas clear. Neck: intubated Oral: intubated Cardiovascular: S1, S2 + Respiratory: AE fair bilaterally and equal GI: Soft, bowel sounds hypo Musculoskeletal: anasarca + Skin: No rash or abscess Hem/Lymphatic: No palpable cervical or supraclavicular nodes. No lymphangitis Psych: no agitation Neurological: unresponsive, intubated, on the vent, exam limited - Constitutional Vitals: Vital Signs Temp Pulse Resp BP Pulse Ox 99.5 F 64 18 101/52 93 08/02/20 12:00 08/02/20 18:15 08/02/20 18:15 08/02/20 18:15 08/02/20 18:15 Temperature -Last 24 Hours Temperature 99.5 F Temperature 99.6 F Temperature 96.6 F Temperature 96.0 F Temperature 96.3 F Temperature 96.2 F Temperature 96.2 F Temperature 96.0 F Temperature 97.0 F Temperature 97.4 F - Labs CBC & Chem 7: 08/02/20 05:59 08/02/20 05:59 Labs: Abnormal lab results 07/27/20 08/01/20 08/01/20 Range/Units 08:45 18:00 21:23 WBC 17.2 H (4.5-11.0) K/mm3 RBC 1.64 L (3.65-5.03) M/mm3 Hgb 5.5 L* D (10.1-14.3) gm/dl Hct 20.5 L D (30.3-42.9) % MCV 125 H (79-97) fl MCH 33 H (28-32) pg MCHC 27 L (30-34) % RDW 22.9 H (13.2-15.2) % Plt Count 64 L (140-440) K/mm3 Lymph % (Auto) (13.4-35.0) % Lymph # (Auto) (1.2-5.4) K/mm3 Glasscock # (Auto) (0.0-0.8) K/mm3 Seg Neutrophils % (40.0-70.0) % Seg Neutrophils # (1.8-7.7) K/mm3 Sodium (137-145) mmol/L Potassium (3.6-5.0) mmol/L Chloride (98-107) mmol/L Carbon Dioxide (22-30) mmol/L BUN (7-17) mg/dL Creatinine (0.6-1.2) mg/dL Glucose (65-100) mg/dL POC Glucose 110 H (70-105) mg/dL Calcium (8.4-10.2) mg/dL Crossmatch See Detail 08/01/20 08/01/20 08/02/20 Range/Units 22:40 22:40 02:07 WBC 23.4 H (4.5-11.0) K/mm3 RBC 2.49 L (3.65-5.03) M/mm3 Hgb 8.2 L (10.1-14.3) gm/dl Hct 24.8 L (30.3-42.9) % MCV 100 H (79-97) fl MCH 33 H (28-32) pg MCHC (30-34) % RDW 19.1 H (13.2-15.2) % Plt Count 81 L (140-440) K/mm3 Lymph % (Auto) (13.4-35.0) % Lymph # (Auto) (1.2-5.4) K/mm3 Glasscock # (Auto) (0.0-0.8) K/mm3 Seg Neutrophils % (40.0-70.0) % Seg Neutrophils # (1.8-7.7) K/mm3 Sodium (137-145) mmol/L Potassium (3.6-5.0) mmol/L Chloride (98-107) mmol/L Carbon Dioxide (22-30) mmol/L BUN (7-17) mg/dL Creatinine (0.6-1.2) mg/dL Glucose (65-100) mg/dL POC Glucose 119 H (70-105) mg/dL Calcium (8.4-10.2) mg/dL Crossmatch See Detail 08/02/20 08/02/20 Range/Units 05:59 05:59 WBC 21.7 H (4.5-11.0) K/mm3 RBC 2.82 L (3.65-5.03) M/mm3 Hgb 9.1 L (10.1-14.3) gm/dl Hct 27.3 L (30.3-42.9) % MCV (79-97) fl MCH (28-32) pg MCHC (30-34) % RDW 19.1 H (13.2-15.2) % Plt Count 95 L (140-440) K/mm3 Lymph % (Auto) 4.2 L (13.4-35.0) % Lymph # (Auto) 0.9 L (1.2-5.4) K/mm3 Glasscock # (Auto) 0.9 H (0.0-0.8) K/mm3 Seg Neutrophils % 91.2 H (40.0-70.0) % Seg Neutrophils # 19.8 H (1.8-7.7) K/mm3 Sodium 160 H (137-145) mmol/L Potassium 3.3 L D (3.6-5.0) mmol/L Chloride 129.0 H (98-107) mmol/L Carbon Dioxide 21 L (22-30) mmol/L BUN 62 H (7-17) mg/dL Creatinine 2.2 H (0.6-1.2) mg/dL Glucose 121 H (65-100) mg/dL POC Glucose (70-105) mg/dL Calcium 8.2 L (8.4-10.2) mg/dL Crossmatch
[2020-08-02 20:14] LABS: Hematocrit 27.8 % (30.3-42.9); Hemoglobin 9.2 gm/dl (10.1-14.3); Mean Corpuscular HGB Conc 33 % (30-34); Mean Corpuscular Volume 98 fl (79-97); Red Blood Count 2.84 M/mm3 (3.65-5.03)
[2020-08-02 20:28] LABS: Platelet Count 94 K/mm3 (140-440)
[2020-08-02 20:32] LABS: Calcium 7.8 mg/dL (8.4-10.2)
[2020-08-02] MEDS ORDERED: POTASSIUM CHLORIDE 40 MEQ in DEXTROSE 5% IN WATER 500 ML IV SCH (22:15)
[2020-08-03] MEDS: DEXTROSE 10% IN WATER 1,000 ML IV SCH ×2 (02:24→03:44)
[2020-08-03] MEDS ORDERED: NORepinephrine/NS 4 MG-250 ML 4 MG/250 ML BAG IV ONE (04:03)
[2020-08-03] MEDS ORDERED: NORepinephrine/NS 4 MG-250 ML 4 MG/250 ML BAG IV SCH (04:05)
[2020-08-03 06:01] LABS: Hematocrit 29.3 % (30.3-42.9); Hemoglobin 9.8 gm/dl (10.1-14.3); Mean Corpuscular HGB Conc 33 % (30-34); Mean Corpuscular Volume 98 fl (79-97); Platelet Count 100 K/mm3 (140-440); Red Blood Count 2.99 M/mm3 (3.65-5.03); Red Cell Distribution Width 19.3 % (13.2-15.2)
[2020-08-03 06:07] LABS: Lymphocytes % (Auto) 8.9 % (13.4-35.0); Monocytes % (Auto) 3.2 % (0.0-7.3)
[2020-08-03 06:08] LABS: Eosinophils # (Auto) 0.2 K/mm3 (0.0-0.4); Eosinophils % (Auto) 0.7 % (0.0-4.3); Lymphocytes # (Auto) 2.4 K/mm3 (1.2-5.4); Monocytes # (Auto) 0.9 K/mm3 (0.0-0.8)
[2020-08-03 06:10] LABS: Calcium 7.7 mg/dL (8.4-10.2)
[2020-08-03 08:36] VITALS: BP 104/68
--- NOTE | 2020-08-03 08:54 | Event Note ---
Date: 08/03/20 Patient is brain . This was communicated to the on yesterday by the hospitalist and I spoke with him again this am as there was confusion about the process in which to proceed. The is contacting the home and states that he is going to meet them up here (these are his wishes). Patient will be extubated, all drips and fluids stopped. No further blood draws are needed. understands this. Hospitalist will declare time of .
--- NOTE | 2020-08-03 09:30 | Progress Note ---
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 Syphilis Plan: -polyuria 2/2 central DI, on D10W -patient is declared brain as discussed with Dr Matute -S/p blood transfusion -S/p Albumin -Neurology evaluated pt, check MRI Brain, follow up recs -Monitor I/O's daily -Kenney Catheter: Yes will sign off as discussed with ICU team, patient to be extubated this AM Subjective Date of service: 08/03/20 Principal diagnosis: Sepsis, anoxic encephalopathy Interval history: remains unresponsive, no family at bedside Objective - Vital Signs Vital signs: Vital Signs - 12hr 08/02/20 08/02/20 08/02/20 21:30 22:00 22:30 Temperature Pulse Rate 58 L 58 L 56 L Respiratory 19 18 17 Rate Blood Pressure 102/50 98/54 91/48 O2 Sat by Pulse 95 94 96 Oximetry 08/02/20 08/02/20 08/02/20 23:00 23:01 23:30 Temperature Pulse Rate 57 L 57 L 57 L Respiratory 18 19 12 Rate Blood Pressure 98/54 103/63 102/60 O2 Sat by Pulse 97 98 98 Oximetry 08/02/20 08/02/20 08/03/20 23:34 23:43 00:00 Temperature 97.3 F L Pulse Rate 57 L 56 L 57 L Respiratory 13 15 Rate Blood Pressure 104/62 104/62 97/55 O2 Sat by Pulse 97 97 97 Oximetry 08/03/20 08/03/20 08/03/20 00:30 01:00 01:30 Temperature Pulse Rate 56 L 55 L 55 L Respiratory 19 17 18 Rate Blood Pressure 92/45 89/44 90/42 O2 Sat by Pulse 98 98 98 Oximetry 08/03/20 08/03/20 08/03/20 02:00 02:30 03:00 Temperature Pulse Rate 55 L 57 L 55 L Respiratory 17 19 18 Rate Blood Pressure 90/42 90/42 91/55 O2 Sat by Pulse 99 98 98 Oximetry 08/03/20 08/03/20 08/03/20 03:30 03:50 03:56 Temperature Pulse Rate 57 L 51 L 51 L Respiratory 21 18 17 Rate Blood Pressure 94/63 77/38 77/38 O2 Sat by Pulse 78 L 100 99 Oximetry 08/03/20 08/03/20 08/03/20 04:00 04:06 04:10 Temperature 97.0 F L Pulse Rate 51 L 51 L 61 Respiratory 19 18 18 Rate Blood Pressure 79/42 79/42 79/42 O2 Sat by Pulse 98 98 96 Oximetry 08/03/20 08/03/20 08/03/20 04:16 04:20 04:26 Temperature Pulse Rate 66 63 60 Respiratory 19 18 17 Rate Blood Pressure 79/42 79/42 126/79 O2 Sat by Pulse 99 98 97 Oximetry 08/03/20 08/03/20 08/03/20 04:30 04:36 04:40 Temperature Pulse Rate 59 L 58 L 58 L Respiratory 18 19 18 Rate Blood Pressure 120/74 120/74 120/74 O2 Sat by Pulse 97 96 96 Oximetry 08/03/20 08/03/20 08/03/20 04:45 04:50 04:56 Temperature Pulse Rate 58 L 58 L 56 L Respiratory 18 18 17 Rate Blood Pressure 120/80 120/80 120/80 O2 Sat by Pulse 96 96 96 Oximetry 08/03/20 08/03/20 08/03/20 05:00 05:06 05:10 Temperature Pulse Rate 56 L 57 L 57 L Respiratory 19 18 18 Rate Blood Pressure 126/80 126/80 126/80 O2 Sat by Pulse 96 96 96 Oximetry 08/03/20 08/03/20 08/03/20 05:15 05:20 05:26 Temperature Pulse Rate 58 L 58 L 56 L Respiratory 18 18 18 Rate Blood Pressure 125/84 125/84 125/84 O2 Sat by Pulse 96 96 96 Oximetry 08/03/20 08/03/20 08/03/20 05:30 05:36 05:40 Temperature Pulse Rate 55 L 55 L 55 L Respiratory 18 19 18 Rate Blood Pressure 116/74 116/74 116/74 O2 Sat by Pulse 96 96 96 Oximetry 08/03/20 08/03/20 08/03/20 05:45 05:50 05:56 Temperature Pulse Rate 55 L 55 L 54 L Respiratory 19 18 18 Rate Blood Pressure 119/79 116/74 116/74 O2 Sat by Pulse 96 96 96 Oximetry 08/03/20 08/03/20 08/03/20 06:00 06:06 06:10 Temperature Pulse Rate 55 L 54 L 55 L Respiratory 18 18 17 Rate Blood Pressure 117/81 117/81 117/81 O2 Sat by Pulse 97 97 97 Oximetry 08/03/20 08/03/20 08/03/20 06:15 06:20 08:00 Temperature Pulse Rate 55 L 58 L 51 L Respiratory 18 18 Rate Blood Pressure 123/81 123/81 104/68 O2 Sat by Pulse 97 97 98 Oximetry - Lab 08/03/20 05:22 08/03/20 05:22 Most recent lab results ABG pH 7.412 (7.320-7.450) 07/28/20 05:09 ABG pCO2 31.2 mm Hg 07/22/20 04:25 ABG pO2 104.9 mm Hg (80.0-90.0) H 07/22/20 04:25 ABG HCO3 23.7 mmol/L (20.0-26.0) 07/22/20 04:25 ABG O2 Saturation 98.1 % (95.0-99.0) 07/22/20 04:25 Calcium 7.7 mg/dL (8.4-10.2) L 08/03/20 05:22 Phosphorus 2.30 mg/dL (2.5-4.5) L D 07/24/20 10:14 Magnesium 2.10 mg/dL (1.7-2.3) 07/27/20 16:43 Medications & Allergies - Medications Allergies/Adverse Reactions: Allergies No Known Allergies Allergy (Verified 07/16/20 22:03) Home Medications: Home Medications Medication Instructions Recorded Confirmed Last Taken Type No Known Home Medications [No 07/17/20 07/17/20 Unknown History Reported Home Medications]
--- NOTE | 2020-08-03 11:36 | Death Summary ---
Summary - Providers Date of service: 08/03/20 Consults: 07/17/20 03:56 Consult to Physician [CONS] Routine Comment: Consulting Provider: LAILA BARRETT Physician Instructions: Reason For Exam: SEPTIC SHOCK 07/17/20 03:58 Consult to Physician [CONS] Routine Comment: Consulting Provider: RICHMOND SON Physician Instructions: Reason For Exam: SEPTIC SHOCK- ON LEVOPHED DRIP 07/17/20 04:40 Consult to Physician [CONS] Routine Comment: Consulting Provider: EMMANUEL RIVERO Physician Instructions: Reason For Exam: Pelvic inflammatory disease 07/17/20 04:41 Consult to Physician [CONS] Routine Comment: Consulting Provider: LORRIE VYAS Physician Instructions: Reason For Exam: Shock liver 07/17/20 12:25 Consult to Case Management [CONS] Stat Services Needed at Discharge: Gum Mixer Notified:: Regen 07/17/20 15:42 Consult to Physician [CONS] Routine Comment: Consulting Provider: JOSH RUIZ Physician Instructions: Reason For Exam: renal failure 07/22/20 19:44 Consult to Dietitian/Nutrition [CONS] Routine Physician Instructions: Reason For Exam: Reason for Consult: Write/Manage Tube Feeding 07/24/20 07:00 Consult to Physician [CONS] Routine Comment: Consulting Provider: SAMMIE SAM Physician Instructions: Reason For Exam: WILLEM 07/24/20 11:09 Consult to Physician [CONS] Urgent Comment: Consulting Provider: SAMMIE SAM Physician Instructions: Reason For Exam: Unresponsive with Liver failure and Cardiac Arrest Attending: CHAPO DECKER - summary Date of admission: 07/17/20 02:38 Date of : 08/03/20 Disposition: The patient is a 29-year-old female with no significant past medical history came into the emergency room last night with complaints of abdominal pain, chills along with nausea and vomiting. She had not been feeling well for at least 2 to 3 days prior to admission. Upon evaluation in the emergency room, her labs revealed a leukemoid reaction, acidosis with severe lactate elevation, acute liver failure with AST 10K, acute kidney injury with a creatinine of 1.9. She was found to be in septic shock requiring pressors. Infectious diseases was consulted for additional evaluation. Chest x-ray did not reveal any pneumonia, CT scan of the abdomen pelvis showed mild colitis along with distended fluid-filled appearance of the stomach and proximal duodenum, hepatomegaly with hepatic steatosis. Pt was started on empiric antibiotics. The patient had admission diagnosis of severe sepsis/septic shock, bilateral pneumonia, acute hepatic failure, acute kidney injury, UTI/PID, diffuse colitis, toxic metabolic encephalopathy, acute thrombocytopenia, anemia and syphilis IgG positive. Discharge diagnosis was the same with the addition of anoxic encephalopathy status post CODE BLUE/CPR 07/19/2020. Hospital course in reverse chronological order: 08/03/2020. Barrel Stave Inspector along with neurology recommendations reported the patient to be brain . This was communicated to the on yesterday by by me and Barrel Stave Inspector spoke with him again this am as there was confusion about the process in which to proceed. The is contacting the home and states that he is going to come to the hospital (these are his wishes). Patient was extubated, all drips and fluids stopped. No further blood draws were needed. voiced understanding. Time of declared at 9 AM after ventilator was removed and flatline on quality assurance monitor final. 08/02/20: Day 14 of intubation. Stable enough now to asses for apnea. Currently preoxygenating with 100% FiO2. Last BP during that time was systolic of 101. At about 12:35-12:40, she will have been on for 30 minutes. At that time, will obtain Pre apnea test ABG to assess baseline CO2 to make sure it is in normal range (35-45mmg Hg). If so then will proceed with apnea test by placing on T- piece at the highest flow on the wall and 100%. Will obtain ABG 10 minutes after this and reconnect to vent. If CO2 level rises 20mmHg or more during that time then patient would be considered brain . The patient had a repeat EEG yesterday that has not been read yet but it was not flatline based on the techs review. I will reach out to Risk Management here for the laws in [place] but If the apnea test is positive, I am not sure that a flatline EEG is needed. OVerall prognosis is poor. Unfortunately, not able to do apnea test as her sodium is 160. Will order brain flow study stat. The brain flow study revealed markedly reduced intracranial activity and blood flow. 08/01/20: Day 13 of intubation. Now hypothermic and requiring more oxygen. Having more frequent runs of bradycardia. Given her current clinical state with MRI findings, this is most compatible with brain , especially with the lack of flow low flow state seen on MRI. Spoke with neurology again today and ask them to reach out to the again to explain that not only this is a poor prognosis but likely brain . Can do apnea tests if needed vs brain flow study. Most likely is brain flow study is done, will need rads to read and not sure if they are here today. 07/31/20: BP stable, now off vasopressors. Going for MRI today. Reattempt tube feeding post MRI. Needs to have labs checked to evaluate platelets, can order for tomorrow. Today is day 12 on intubation. I spoke with neuro over the phone this am and ask that they have another conversation with the mother in regards to her prognosis of waking up. She is also starting to have more sequale from prolonged liver disease and ICU stay. Her overall prognosis is extremely poor. 07/30/20: BP better with midodrine, thanks to pharmacy recs. Will turn off vasopressin and attempt to get MRI today. Will then lean on Neuro to help us with ultimate prognosis to help family make decisions about next steps. Today is day 11 of intubation. Family meeting needs to take place this week. If family wishes to continue aggressively, she will need trach and peg. Patient has been having nasal and oral bleeding. Platelets have been low but up to 55 now. No indication for blood or platelet transfusion. 07/29/20: Still no MRI yet. Remains unresponsive. Spoke with pharmacy today will try midodrine with reglan to see if we can wean pressors. No labs checked today. Renal function was worsening as of yesterday. Will order labs for tomorrow. Today is day 10 of intubation. Await further input from neurology. Need to set up family meeting soon to discuss next steps and goals of care. Overall prognosis is poor. 07/28/20: Await MRI. EEG draft from yesterday shows severe encephalopathy with multiple etiologies. Will attempt trickle feeds today despite 2 pressor need. If she does not tolerate, will talk to nutrition about TPN. Need neurology input once MRI done and read as the overall prognosis here appears to be poor and decisions need to be made in regards to next steps of care. Patient has been intubated now since 07/19/2020 (Today is day 9 of intubation). If family requests continued aggressive care, patient will need trach and peg placement, however, it does not appear that she can be weaned off of vasopressors. intermediate designer consequences are soon to happen from prolonged use (i.e ischemia) 07/27/2020: Await MRI. Continue supportive measures. Clinical picture appears to be worsening. Family awaiting neurology input and they need imaging. 07/26/2020: Await MRI. Continue supportive care. Hopeful to wean off levo so we can start feeding patient later today. Will replace lytes and give more free water. Prognosis still appears to be very very poor from a neurological standpoint. 07/25/2020: Neuro has requested EEG to an MRI . Unable to feed secondary to pressor requirement or this could resultant of liver impairment. Overall prognosis appears to be poor. ] - Final diagnosis (1) Brain Note: Final diagnosis: (2) Acute kidney injury (RINA) with acute tubular necrosis (ATN) Note: Final diagnosis: (3) Acute liver failure Note: Final diagnosis: (4) Acute respiratory failure Qualifiers: Respiratory failure complication: hypoxia Qualified Code(s): J96.01 - Acute respiratory failure with hypoxia Note: Final diagnosis: (5) Cardiac arrest Note: Final diagnosis: (6) Intra-abdominal infection Note: Final diagnosis: (7) Sepsis with acute organ dysfunction Note: Final diagnosis: (8) Severe sepsis with septic shock Note: Final diagnosis: (9) Toxic metabolic encephalopathy Note: Final diagnosis: (10) UTI (urinary tract infection) Qualifiers: Encounter type: initial encounter Note: Final diagnosis:
== END 2020-08-03 13:30 | DRG 870 ==
LOC: ED 19:22 → CC1 07-17 02:38
PROVIDERS: ADMIT Internal Medicine Geriatric Medicine; ATTEND Hospitalist
PROC: 0BH17EZ Insertion of Endotracheal Airway into Trachea, Via Natural or Artificial Opening (ICD-10-PCS; principal; 2020-07-19)
PROC: 5A1955Z Respiratory Ventilation, Greater than 96 Consecutive Hours (ICD-10-PCS; 2020-07-19)
PROC: 30233N1 Transfusion of Nonautologous Red Blood Cells into Peripheral Vein, Percutaneous Approach (ICD-10-PCS; 2020-07-19)
PROC: 5A12012 Performance of Cardiac Output, Single, Manual (ICD-10-PCS; 2020-07-19)
PROC: 4A033R1 Measurement of Arterial Saturation, Peripheral, Percutaneous Approach (ICD-10-PCS; 2020-07-21)
DX: A41.9 Sepsis, unspecified organism (principal); N17.0 Acute kidney failure with tubular necrosis; G92 Toxic encephalopathy; R65.21 Severe sepsis with septic shock; K72.00 Acute and subacute hepatic failure without coma; J96.01 Acute respiratory failure with hypoxia; J18.9 Pneumonia, unspecified organism; K51.00 Ulcerative (chronic) pancolitis without complications; E87.2 Acidosis; B37.49 Other urogenital candidiasis; D68.9 Coagulation defect, unspecified; E87.0 Hyperosmolality and hypernatremia; G93.1 Anoxic brain damage, not elsewhere classified; N73.9 Female pelvic inflammatory disease, unspecified; F17.200 Nicotine dependence, unspecified, uncomplicated; F10.10 Alcohol abuse, uncomplicated; I46.9 Cardiac arrest, cause unspecified; I95.9 Hypotension, unspecified; D64.9 Anemia, unspecified; A53.9 Syphilis, unspecified; D69.6 Thrombocytopenia, unspecified; K52.9 Noninfective gastroenteritis and colitis, unspecified
CPT/HCPCS: 36415; 36600; 70450; 70551; 71045; 71250; 74018; 74176; 76770; 78601; 80048; 80053; 80074; 80076; 80320; 81001; 82140; 82550; 82803; 82805; 82962; 83690; 83735; 83935; 84100; 84132; 84145; 84443; 84484; 84703; 85007; 85018; 85025; 85027; 85610; 86038; 86140; 86160; 86592; 86593; 86695; 86780; 86850; 86900; 86901; 86920; 87040; 87086; 87210; 87529; 87591; 87641; 87806; 93005; 94002; 94003; 94760; 95819; G0378; A9512; C9113; G0480; J0132; J0133; J0171; J0295; J0692; J0696; J1265; J1720; J2270; J2405; J2543; J2765; J3370; J3411; J3430; J3475; J3480; J7030; J7040; J7050; J7060; J7070; P9016; P9047